=== PATIENT | female | born 1990 | race Caucasian/White ===

== ENCOUNTER 2016-08-07 19:52 | Emergency (ER) | payer OTHER ==
[~2016-08-07 19:52] MED LIST: DIGO0.126 PO; DIGO0.127 PO; DOCU10ELUD PO; DULC10SU9 PR; FERR325T3 PO; IRON CR PO; LEVO25TA5 PO; LEVOXYL PO; OMEP20CA3 PO; TRAMADOL PO; TYLE325T5 PO; ZONI50CA PO; [UNRECOGNIZED DRUG - REMARK]
[2016-08-07 23:26] LABS: ADD MORPHOLOGY? YES; BASO % 0.8 % (0.0-1.0); EOS # 0.1 K/mm3 (0.0-0.50); EOS % 1.3 % (0.0-3.0); LARGE UNSTAINED CELL # 0.1 K/mm3 (0.0-0.4); LARGE UNSTAINED CELL % 2.7 % (0.0-4.0); LYMPH # 1.7 K/mm3 (1.5-6.5); LYMPH % 31.5 % (24.0-44.0); MEAN CORPUSCULAR HEMOGLOBIN 21.2 pg (27.0-33.0); MEAN CORPUSCULAR HGB CONC 28.3 g/dl (32.0-36.5); MEAN CORPUSCULAR VOLUME 75.1 fl (80.0-96.0); MONO # 0.3 K/mm3 (0.0-0.8); MONO % 5.2 % (0.0-5.0); NEUTROPHILS # 2.9 K/mm3 (1.8-7.7); NEUTROPHILS % 58.5 % (36.0-66.0); PLATELET COUNT, AUTOMATED 179 k/mm3 (150-450); RED CELL DISTRIBUTION WIDTH 18.2 % (11.5-14.5); WHITE BLOOD COUNT 4.9 K/mm3 (4.0-10.0)
[2016-08-07] MEDS ORDERED: ONDANSETRON 4MG/2ML VIAL (J2405) As Ordered ONE (23:34)
[2016-08-07] MEDS ORDERED: MORPHINE 4 MG/ML 1ML SYRINGE As Ordered ONE (23:34)
[2016-08-07 23:56] LABS: HYPOCHROMASIA 1+
[2016-08-07 23:57] LABS: ANISOCYTOSIS 1+; MICROCYTOSIS 1+
[2016-08-08 00:10] LABS: ALBUMIN 3.9 GM/DL (3.2-5.2); ALBUMIN/GLOBULIN RATIO 1.11 (1.00-1.93); ALKALINE PHOSPHATASE 74 U/L (45-117); ALT/SGPT 29 U/L (12-78); AMYLASE 46 U/L (25-115); ANION GAP 7 MEQ/L (8-16); AST/SGOT 23 U/L (15-37); BILIRUBIN,DIRECT < 0.1 MG/DL (0.0-0.2); BILIRUBIN,TOTAL 0.3 MG/DL (0.2-1.0); BLOOD UREA NITROGEN 14 MG/DL (7-18); CALCIUM LEVEL 8.7 MG/DL (8.5-10.1); CARBON DIOXIDE LEVEL 28 MEQ/L (21-32); CHLORIDE LEVEL 107 MEQ/L (98-107); CREATININE FOR GFR 0.67 MG/DL (0.55-1.02); GLOMERULAR FILTRATION RATE > 60.0 (>60); GLUCOSE, FASTING 77 MG/DL (70-105); POTASSIUM SERUM 3.8 MEQ/L (3.5-5.1); SODIUM LEVEL 142 MEQ/L (136-145); TOTAL PROTEIN 7.4 GM/DL (6.4-8.2)
--- NOTE | 2016-08-08 01:00 | REPUSA ---
CT of the abdomen and pelvis without contrast Clinical statement: Pain. Technique: Multiple axial CT images were obtained from the base of the lungs to the floor of the pelv is utilizing 5 mm axial slices without administration of contrast. Coronal and sagittal reconstructio ns were also obtained. Comparison: december 17, 2015. Findings: Chest: The visualized lung bases are clear. Abdomen: The kidneys are normal in size bilaterally. There is no evidence of nephrolithiasis. However , there is moderate right-sided hydronephrosis and proximal hydroureter. The distal right ureter appe ars unremarkable however. No obstructing stone or masses identified. The liver, spleen, pancreas, and adrenal glands are unremarkable. The aorta demonstrates normal caliber and contour. There is no abdo yudy lymphadenopathy or ascites. Pelvis: The bowel is unremarkable, with no obstructive or inflammatory changes. The appendix is teodoro l. The urinary bladder is within normal limits. There is no pelvic lymphadenopathy or ascites. The ot her pelvic structures appear unremarkable. Bones: There are no suspicious osseous abnormalities seen. Impression: 1. Moderate right-sided hydronephrosis with proximal right hydroureter. The distal right ureter appea rs unremarkable however. No discrete obstructing stone or mass is identified at this time. Follow-up is suggested as clinically indicated. 2. No obstructive or inflammatory bowel changes.
[2016-08-08] MEDS ORDERED: OXYCODONE/APAP 5MG/325MG(BULK) 1 TAB TAB As Ordered ONE (01:35)
--- NOTE | 2016-08-08 01:51 | EDDOCDS ---
Nurse's Notes [facility] Name: Toni Cortez Age: 25 yrs Sex: Female : 1990 Arrival Date: 08/07/2016 Time: 19:52 Bed I4 / M4 Private MD: Sonya Vincent Diagnosis: Unspecified hydronephrosis-Moderate right sided hydronephrosis with proximal Right hydroureter, No stone on CT, normal labs; most likely passed stone.;Anemia, unspecified Presentation: 08/07 20:08 Presenting complaint: Patient states: PER PT ABDOMINAL PAIN FOR THE PAST WEEK NOW WITH tm5 LOSS OF APPETITE, STATES THAT SHE ALSO HAS HAD "PALE" COLORED STOOLS, ALSO WITH NAUSEA. Risk factors: the patient reports no vaginal bleeding. Adult Sepsis Screening: The patient does not have new or worsening altered mentation. Patient's respiratory rate is less than 22. Systolic blood pressure is greater than 100. Patient has a qSOFA score of 0- Negative Sepsis Screen. Suicide/Homicide risk assessment- the patient denies having any suicidal and/or homicidal ideations and does not present with any other emotional, behavioral or mental health complaints. Status: Patient is not a gasoline service attendant or dependent. Transition of care: patient was not received from another setting of care. 20:08 Acuity: GARCIA Level 3 tm5 20:08 Method Of Arrival: Walkin/Carried/Asstd tm5 Triage Assessment: 20:11 General: Appears in no apparent distress, Behavior is appropriate for age, cooperative. tm5 Pain: Location: abdomen Pain currently is 7 out of 10 on a pain scale. Quality of pain is described as sharp, Pain began 1 WEEK AGO. Pt Declines HIV testing. Neurological: Level of Consciousness is awake, alert, Oriented to person, place, time. Respiratory: Airway is patent Respiratory effort is even, unlabored, Respiratory pattern is regular, symmetrical. GI: Abdomen is non- distended Reports nausea, vomiting. : No deficits noted. Derm: Skin is pale. 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 digoxin 125 mcg Oral tab as needed for racing heart PRN racing heart rate 2. ferrous sulfate 325 mg (65 mg iron) Oral tab three times a day 3. omeprazole 20 mg Oral chew 20 mg daily - PMHx: Cardiomyopathy; Crohn's; ''Enlarged spleen''; GERD; muscular dystrophy; Ovarian cyst; - PSHx: Cholecystectomy; - Social history: Smoking status: Patient states was never smoker of tobacco. No barriers to communication noted, The patient speaks fluent Moroccan. - Family history: No immediate family members are acutely ill. - : The pt / caregiver states he / she is not on anticoagulants. Home medication list is obtained from the patient. - Exposure Risk Screening:: None identified. Screenin:13 Screening information is obtained from the patient. Fall risk: No risks identified. tm5 Assistance ADL's: requires no assistance with activities of daily living. Abuse/DV Screen: The patient / caregiver reports he/she is: not in a situation that causes fear, pain or injury. Nutritional screening: No deficits noted. Advance Directives: Currently, there is no health care proxy. There is no active DNR order. home support is adequate. Assessment: 21:35 General: Appears in no apparent distress, comfortable, Behavior is appropriate for age, nn1 cooperative. Neurological: Level of Consciousness is awake, alert, obeys commands. Respiratory: Airway is patent Respiratory effort is even, unlabored, Respiratory pattern is regular, symmetrical. Derm: Skin is pink, warm & dry. 22:30 General: Appears in no apparent distress, Behavior is cooperative. Neurological: No ms2 deficits noted. Respiratory: Respiratory effort is even, unlabored. Derm: Skin is pink, warm & dry. 23:44 General: Appears in no apparent distress, comfortable, Behavior is appropriate for age, af2 cooperative. Neurological: Level of Consciousness is awake, alert, obeys commands. Respiratory: Airway is patent Respiratory effort is even, unlabored. Derm: Skin is pink, warm & dry. 08/08 00:42 General: Appears in no apparent distress, comfortable, Behavior is appropriate for age, af2 cooperative. Neurological: Level of Consciousness is awake, alert, obeys commands. Respiratory: Airway is patent Respiratory effort is even, unlabored. Derm: Skin is pink, warm & dry. 00:48 General: IVF observed to be infusing slowly, placed fluids on pump at this time at 999 af2 ml/hr. PIV patent, infusing.. Vital Signs: 08/07 19:54 BP 113 / 57; Pulse 66; Resp 16; Temp 97.4(O); Pulse Ox 100% on R/A; Weight 93.44 kg; sew Height 5 ft. 10 in. (177.80 cm); Pain 7/10; 08/08 00:48 BP 117 / 65; Pulse 61; Resp 18 S; Temp 98.1(TE); Pulse Ox 100% on R/A; af2 01:31 BP 103 / 59; Pulse 60; Resp 18; Temp 97.9; Pulse Ox 100% ; Pain 9/10; jlm 08/07 19:54 Body Mass Index 29.56 (93.44 kg, 177.80 cm) sew Vitals: 08/07 19:54 Log In Time: August 07, 2016 at 19:51. sew ED Course: 11:18 Missed attempts: 20 gauge X 1 in right antecubital area, Bleeding controlled, band aid ms2 applied, catheter tip intact. 11:20 Inserted saline lock: 20 gauge in left hand The patient tolerated the procedure well. ms2 19:53 Patient visited by Kathryn Quan. sew 19:53 Sonya Vincent is Private Physician. sew 19:53 Patient moved to Waiting sew 19:54 Patient visited by Kathryn Quan. sew 19:54 Patient moved to Pre RCE sew 20:10 Triage Initiated tm5 21:34 Patient visited by Lena Acosta,HAIR. ck1 21:34 Patient moved to Triage 2 ck1 22:10 [facility] ef1 22:10 Jt Dozier DO is Attending Physician. ef1 22:11 Patient visited by Brittanie Bateman PA-C. ef1 22:26 Patient moved to I4 / M4 nn1 22:30 The patient / caregiver is instructed regarding the plan of care and ED course. ms2 22:42 Patient visited by Brittanie Bateman PA-C. ef1 23:02 Patient visited by Brittanie Bateman PA-C. ef1 23:21 [facility] Payment Agreement was scanned into [employer] and attached to record. gjb 23:28 RBC MORPH PROF NO CHARGE Sent. ms2 23:32 Patient visited by Brittanie Bateman PA-C. ef1 23:45 Patient visited by Miladis Gorman RN. af2 08/08 00:17 Patient visited by Brittanie Bateman PA-C. ef1 00:29 Patient visited by Brittanie Bateman PA-C. ef1 00:48 Patient visited by Miladis Gorman RN. af2 00:50 Patient visited by Miladis Gorman RN. af2 01:18 CT ABD & PELVIS: No Contrast Returned. EDMS 01:25 Patient visited by Brittanie Bateman PA-C. ef1 01:32 Patient visited by Mulu Diaz, Defective Cigarette Slitter. jlm 01:34 Sonya Vincent is Referral Physician. ef1 01:34 Boris Patel is Referral Physician. ef1 01:36 No procedures done that require assistance. nn1 01:41 Eduarda Topete LPN is Primary Nurse. slm 01:42 Discontinued lock intact, bleeding controlled, pressure dressing applied, No slm redness/swelling at site. Administered Medications: 08/07 23:43 Drug: NS 0.9% 1000 ml [sodium chloride 0.9 % intravenous solution] Route: IV; Rate: af2 bolus; Site: left hand; 08/08 01:42 Follow up: IV Status: Completed infusion; IV Intake: 1000ml slm 08/07 23:43 Drug: Ondansetron 4 mg [ondansetron HCl 2 mg/mL intravenous solution (2 mL)] Route: af2 IVP; Site: left hand; 23:43 Drug: morphine 4 mg [morphine 4 mg/mL intravenous cartridge (1 mL)] Route: IVP; Site: af2 left hand; 08/08 01:50 Drug: oxyCODONE-acetaminophen 4 pack 1 packets [oxycodone-acetaminophen 5 mg-325 mg slm tablet (1 tabs)] {Co-Signature: nn1 (Snow Kilgore RN).} Route: PO; Point of Care Testing: Urine : 08/07 22:32 hCG Reading: Negative; Control Reading: Positive; nn1 Ranges: Intake: 08/08 01:42 IV: 1000.00ml; Total: 1000.00ml. slm Order Results: Lab Order: Amylase; SPEC'M 08/07/16 23:42 Test: AMYLASE; Value: 46; Range: 25-115; Units: U/L; Status: F Lab Order: Basic Metabolic Profile; SPEC'M 08/07/16 23:42 Test: GLUCOSE, FASTING; Value: 77; Range: 70-105; Units: MG/DL; Status: F Test: BLOOD UREA NITROGEN; Value: 14; Range: 7-18; Units: MG/DL; Status: F Test: CREATININE FOR GFR; Value: 0.67; Range: 0.55-1.02; Units: MG/DL; Status: F Test: GLOMERULAR FILTRATION RATE; Value: > 60.0; Range: >60; Status: F Test: SODIUM LEVEL; Value: 142; Range: 136-145; Units: MEQ/L; Status: F Test: POTASSIUM SERUM; Value: 3.8; Range: 3.5-5.1; Units: MEQ/L; Status: F Test: CHLORIDE LEVEL; Value: 107; Range: 98-107; Units: MEQ/L; Status: F Test: CARBON DIOXIDE LEVEL; Value: 28; Range: 21-32; Units: MEQ/L; Status: F Test: ANION GAP; Value: 7; Range: 8-16; Abnormal: Below low normal; Units: MEQ/L; Status: F Test: CALCIUM LEVEL; Value: 8.7; Range: 8.5-10.1; Units: MG/DL; Status: F Test Note: ; Units are mL/min/1.73 m2 Chronic Kidney Disease Staging per NKF: Stage I & II GFR >=60 Normal to Mildly Decreased Stage III GFR 30-59 Moderately Decreased Stage IV GFR 15-29 Severely Decreased Stage V GFR <15 Very Little GFR Left ESRD GFR <15 on MORTAR MIXER Lab Order: CBC with Diff; SPEC'M 08/07/16 22:46 Test: WHITE BLOOD COUNT; Value: 4.9; Range: 4.0-10.0; Units: K/mm3; Status: F Test: RED BLOOD COUNT; Value: 3.96; Range: 4.00-5.40; Abnormal: Below low normal; Units: M/mm3; Status: F Test: HEMOGLOBIN; Value: 8.4; Range: 12.0-16.0; Abnormal: Below low normal; Units: g/dl; Status: F Test: HEMATOCRIT; Value: 29.7; Range: 36.0-47.0; Abnormal: Below low normal; Units: %; Status: F Test: MEAN CORPUSCULAR VOLUME; Value: 75.1; Range: 80.0-96.0; Abnormal: Below low normal; Units: fl; Status: F Test: MEAN CORPUSCULAR HEMOGLOBIN; Value: 21.2; Range: 27.0-33.0; Abnormal: Below low normal; Units: pg; Status: F Test: MEAN CORPUSCULAR HGB CONC; Value: 28.3; Range: 32.0-36.5; Abnormal: Below low normal; Units: g/dl; Status: F Test: RED CELL DISTRIBUTION WIDTH; Value: 18.2; Range: 11.5-14.5; Abnormal: Above high normal; Units: %; Status: F Test: PLATELET COUNT, AUTOMATED; Value: 179; Range: 150-450; Units: k/mm3; Status: F Test: NEUTROPHILS %; Value: 58.5; Range: 36.0-66.0; Units: %; Status: F Test: LYMPH %; Value: 31.5; Range: 24.0-44.0; Units: %; Status: F Test: MONO %; Value: 5.2; Range: 0.0-5.0; Abnormal: Above high normal; Units: %; Status: F Test: EOS %; Value: 1.3; Range: 0.0-3.0; Units: %; Status: F Test: BASO %; Value: 0.8; Range: 0.0-1.0; Units: %; Status: F Test: LARGE UNSTAINED CELL %; Value: 2.7; Range: 0.0-4.0; Units: %; Status: F Test: NEUTROPHILS #; Value: 2.9; Range: 1.8-7.7; Units: K/mm3; Status: F Test: LYMPH #; Value: 1.7; Range: 1.5-6.5; Units: K/mm3; Status: F Test: MONO #; Value: 0.3; Range: 0.0-0.8; Units: K/mm3; Status: F Test: EOS #; Value: 0.1; Range: 0.0-0.50; Units: K/mm3; Status: F Test: BASO #; Value: 0.0; Range: 0.0-0.2; Units: K/mm3; Status: F Test: LARGE UNSTAINED CELL #; Value: 0.1; Range: 0.0-0.4; Units: K/mm3; Status: F Lab Order: Lipase; [facility] 08/07/16 23:42 Test: LIPASE; Value: 104; Range: 73-393; Units: U/L; Status: F Lab Order: Liver Profile; [facility] 08/07/16 23:42 Test: AST/SGOT; Value: 23; Range: 15-37; Units: U/L; Status: F Test: ALT/SGPT; Value: 29; Range: 12-78; Units: U/L; Status: F Test: ALKALINE PHOSPHATASE; Value: 74; Range: 45-117; Units: U/L; Status: F Test: BILIRUBIN,TOTAL; Value: 0.3; Range: 0.2-1.0; Units: MG/DL; Status: F Test: BILIRUBIN,DIRECT; Value: < 0.1; Range: 0.0-0.2; Units: MG/DL; Status: F Test: TOTAL PROTEIN; Value: 7.4; Range: 6.4-8.2; Units: GM/DL; Status: F Test: ALBUMIN; Value: 3.9; Range: 3.2-5.2; Units: GM/DL; Status: F Test: ALBUMIN/GLOBULIN RATIO; Value: 1.11; Range: 1.00-1.93; Status: F Lab Order: Urinalysis; [facility] 08/07/16 22:27 Test: APPEARANCE, URINE; Value: CLEAR; Range: CLEAR; Status: F Test: COLOR, URINE; Value: COLORLESS; Range: YELLOW; Status: F Test: PH,URINE; Value: 6.0; Range: 5.0-9.0; Units: UNITS; Status: F Test: SPECIFIC GRAVITY URINE AUTO; Value: 1.002; Range: 1.002-1.035; Status: F Test: PROTEIN, URINE AUTO; Value: NEGATIVE; Range: NEGATIVE; Units: mg/dL; Status: F Test: GLUCOSE, URINE (UA) AUTO; Value: NEGATIVE; Range: NEGATIVE; Units: mg/dL; Status: F Test: KETONE, URINE AUTO; Value: NEGATIVE; Range: NEGATIVE; Units: mg/dL; Status: F Test: UROBILINOGEN, URINE AUTO; Value: 0.2; Range: 0.0-2.0; Units: mg/dL; Status: F Test: BILIRUBIN, URINE AUTO; Value: NEGATIVE; Range: NEGATIVE; Status: F Test: NITRITE, URINE AUTO; Value: NEGATIVE; Range: NEGATIVE; Status: F Test: LEUKOCYTE ESTERASE, URINE AUTO; Value: NEGATIVE; Range: NEGATIVE; Status: F Test: BLOOD, URINE BLOOD; Value: NEGATIVE; Range: NEGATIVE; Status: F Test: WBC, URINE AUTO; Value: 1; Range: 0-3; Units: /HPF; Status: F Test: RBC, URINE AUTO; Value: 0; Range: 0-3; Units: /HPF; Status: F Test: BACTERIA, URINE AUTO; Value: NEGATIVE; Range: NEGATIVE; Status: F Test: SQUAMOUS EPITHELIAL CELL UR AU; Value: 2; Range: 0-6; Units: /HPF; Status: F Test: HYALINE CAST, URINE AUTO; Value: 0; Range: 0-1; Units: /LPF; Status: F Lab Order: RBC MORPH PROF NO CHARGE; SPEC'M 08/07/16 22:46 Test: PLATELET ESTIMATE; Range: NORMAL; Status: I Test: HYPOCHROMASIA; Value: 1+; Status: F Test: ANISOCYTOSIS; Value: 1+; Status: F Test: MICROCYTOSIS; Value: 1+; Status: F Test: PLATELET ESTIMATE; Value: NORMAL; Range: NORMAL; Status: F Radiology Order: CT ABD & PELVIS: No Contrast Test: CT ABD & PELVIS: No Contrast REASON FOR EXAMINATION: Renal colic; ; CT of the abdomen and pelvis without contrast; Clinical statement: Pain.; Technique: Multiple axial CT images were obtained from the base of the lungs to the floor of the pelv; is utilizing 5 mm axial slices without administration of contrast. Coronal and sagittal reconstructio; ns were also obtained.; Comparison: december 17, 2015.; Findings:; Chest: The visualized lung bases are clear.; Abdomen: The kidneys are normal in size bilaterally. There is no evidence of nephrolithiasis. However; , there is moderate right-sided hydronephrosis and proximal hydroureter. The distal right ureter appe; ars unremarkable however. No obstructing stone or masses identified. The liver, spleen, pancreas, and; adrenal glands are unremarkable. The aorta demonstrates normal caliber and contour. There is no abdo; yudy lymphadenopathy or ascites.; Pelvis: The bowel is unremarkable, with no obstructive or inflammatory changes. The appendix is teodoro; l. The urinary bladder is within normal limits. There is no pelvic lymphadenopathy or ascites. The ot; her pelvic structures appear unremarkable.; Bones: There are no suspicious osseous abnormalities seen.; Impression:; 1. Moderate right-sided hydronephrosis with proximal right hydroureter. The distal right ureter appea; rs unremarkable however. No discrete obstructing stone or mass is identified at this time. Follow-up; is suggested as clinically indicated.; 2. No obstructive or inflammatory bowel changes.; ; Outcome: 01:34 Discharge ordered by Provider. ef1 01:36 Discharge Assessment: Patient awake, alert and oriented x 3. No cognitive and/or nn1 functional deficits noted. Patient verbalized understanding of disposition instructions. patient administered narcotics - yes. Pt provided with safe discharge. The following High Risk Discharge criteria are identified: None. Discharged to home ambulatory. Condition: stable. Prescriptions given X 2. CT Study completed. Property :Personal belongings accompany Pt. 01:50 Patient left the ED. m Signatures: Dispatcher [employer] EDMS Luis Pillai RN RN ms2 Lena Acosta RN RN ck1 Brittanie Bateman, PA-C PA-C ef1 Kathryn Quan Stephanie, LPN LPN slm Mulu Diaz, Defective Cigarette Slitter Unit Miladis Evans RN RN af2 Snow Kilgore RN RN nn1 Ida Ambrose TonyaRN RN tm5 Snow Kilgore RN nn1 Corrections: (The following items were deleted from the chart) 00:50 00:47 General: af2 af2 MTDD
--- NOTE | 2016-08-08 01:51 | EDDOCDS ---
Physician Documentation [facility] Name: Toni Cortez Age: 25 yrs Sex: Female : 1990 Arrival Date: 08/07/2016 Time: 19:52 Bed I4 / M4 Private MD: Sonya Vincent Disposition: 08/08/16 01:34 Discharged to Home/Self Care. Impression: Unspecified hydronephrosis - Moderate right sided hydronephrosis with proximal Right hydroureter, No stone on CT, normal labs; most likely passed stone., Anemia, unspecified. - Condition is Stable. - Discharge Instructions: Anemia, Nonspecific, Hydronephrosis. - Prescriptions for Percocet 5- 325 mg Oral Tablet - take 1 tablet by ORAL route every 6 hours As needed MDD: 4 tabs; 10 tablet. promethazine 25 mg Oral Tablet - take 1 tablet by ORAL route every 6 hours As needed; 12 tablet. - Medication Reconciliation, Local Pharmacy Hours form. - Follow up: Sonya Vincent; When: 1 - 2 days; Reason: Recheck today's complaints, Continuance of care. Follow up: Emergency Department; Reason: Worsening of conditions. Follow up: Boris Patel; When: 1 - 2 days; Reason: Further diagnostic work-up, Recheck today's complaints, Continuance of care. - Problem is new. - Symptoms have improved. Historical: - Allergies: Aspirin (Anaphylaxis); Gastrografin; Reglan (syncope); Tramadol HCl (seizure); - Home Meds: 1. digoxin 125 mcg Oral tab as needed for racing heart PRN racing heart rate 2. ferrous sulfate 325 mg (65 mg iron) Oral tab three times a day 3. omeprazole 20 mg Oral chew 20 mg daily - PMHx: Cardiomyopathy; Crohn's; ''Enlarged spleen''; GERD; muscular dystrophy; Ovarian cyst; - PSHx: Cholecystectomy; - Social history: Smoking status: Patient states was never smoker of tobacco. No barriers to communication noted, The patient speaks fluent Japanese. - Family history: No immediate family members are acutely ill. - : The pt / caregiver states he / she is not on anticoagulants. Home medication list is obtained from the patient. - Exposure Risk Screening:: None identified. 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 10 in. (177.80 cm); Pain 7/10; 08/08 00:48 BP 117 / 65; Pulse 61; Resp 18 S; Temp 98.1(TE); Pulse Ox 100% on R/A; af2 01:31 BP 103 / 59; Pulse 60; Resp 18; Temp 97.9; Pulse Ox 100% ; Pain 9/10; jlm 08/07 19:54 Body Mass Index 29.56 (93.44 kg, 177.80 cm) sew MDM: 08/07 22:23 NS 0.9% 1000 ml IV at bolus once ordered. ef1 22:23 Ondansetron 4 mg IVP once ordered. ef1 22:23 IV Saline Lock ordered. ef1 22:23 Undress patient appropriately for examination ordered. ef1 22:23 UCG by Nursing ordered. ef1 22:24 morphine 4 mg IVP once ordered. ef1 22:25 Amylase Ordered. EDMS 22:25 Basic Metabolic Profile Ordered. EDMS 22:25 CBC with Diff Ordered. EDMS 22:25 Lipase Ordered. EDMS 22:25 Liver Profile Ordered. EDMS 22:25 Urinalysis Ordered. EDMS 22:25 Urine Culture Ordered. EDMS 22:25 CT ABD & PELVIS: No Contrast Ordered. EDMS 22:25 NOTHING BY MOUTH+DIET ordered. EDMS 23:12 Financial registration complete. [facility] 23:21 [facility] Payment Agreement was scanned into [employer] and attached to record. gjb 23:28 RBC MORPH PROF NO CHARGE Ordered. EDMS 08/08 00:01 CBC with Diff Reviewed. ef1 00:01 Urinalysis Reviewed. ef1 00:01 RBC MORPH PROF NO CHARGE Reviewed. ef1 00:17 Basic Metabolic Profile Reviewed. ef1 00:17 Amylase Reviewed. ef1 00:17 Lipase Reviewed. ef1 00:17 Liver Profile Reviewed. ef1 01:26 CT ABD & PELVIS: No Contrast Reviewed. ef1 01:34 oxyCODONE-acetaminophen 4 pack 5 mg-325 mg 1 packets PO once; Dispense with pt, take as ef1 per instruction on package ordered. Point of Care Testing: Urine : 08/07 22:32 hCG Reading: Negative; Control Reading: Positive; nn1 Ranges: Administered Medications: 23:43 Drug: NS 0.9% 1000 ml [sodium chloride 0.9 % intravenous solution] Route: IV; Rate: af2 bolus; Site: left hand; 08/08 01:42 Follow up: IV Status: Completed infusion; IV Intake: 1000ml slm 08/07 23:43 Drug: Ondansetron 4 mg [ondansetron HCl 2 mg/mL intravenous solution (2 mL)] Route: af2 IVP; Site: left hand; 23:43 Drug: morphine 4 mg [morphine 4 mg/mL intravenous cartridge (1 mL)] Route: IVP; Site: af2 left hand; 08/08 01:50 Drug: oxyCODONE-acetaminophen 4 pack 1 packets [oxycodone-acetaminophen 5 mg-325 mg slm tablet (1 tabs)] {Co-Signature: nn1 (Snow Kilgore RN).} Route: PO; Signatures: Dispatcher [employer] EDMS Brittanie Bateman, PA-C PA-C ef1 Eduarda Topete,WINDOW SHADE CUTTER WINDOW SHADE CUTTER Snow Lombardi RN RN nn1 Ida Ambrose Tonya,RN RN tm5 Miladis Gorman RN af2 Snow Kilgore RN nn1 The chart was reviewed and I authenticate all verbal orders and agree with the evaluation and treatment provided.Attachments: 08/07 23:21 [facility] Payment Agreement liana MTDD
--- NOTE | 2016-08-10 02:52 | EDDOCDS ---
Physician Documentation [facility] Name: Toni Cortez Age: 25 yrs Sex: Female : 1990 Arrival Date: 08/07/2016 Time: 19:52 Bed I4 / M4 Private MD: Sonya Vincent Disposition: 08/08/16 01:34 Discharged to Home/Self Care. Impression: Unspecified hydronephrosis - Moderate right sided hydronephrosis with proximal Right hydroureter, No stone on CT, normal labs; most likely passed stone., Anemia, unspecified. - Condition is Stable. - Discharge Instructions: Anemia, Nonspecific, Hydronephrosis. - Prescriptions for Percocet 5- 325 mg Oral Tablet - take 1 tablet by ORAL route every 6 hours As needed MDD: 4 tabs; 10 tablet. promethazine 25 mg Oral Tablet - take 1 tablet by ORAL route every 6 hours As needed; 12 tablet. - Medication Reconciliation, Local Pharmacy Hours form. - Follow up: Sonya Vincent; When: 1 - 2 days; Reason: Recheck today's complaints, Continuance of care. Follow up: Emergency Department; Reason: Worsening of conditions. Follow up: Boris Patel; When: 1 - 2 days; Reason: Further diagnostic work-up, Recheck today's complaints, Continuance of care. - Problem is new. - Symptoms have improved. Historical: - Allergies: Aspirin (Anaphylaxis); Gastrografin; Reglan (syncope); Tramadol HCl (seizure); - Home Meds: 1. digoxin 125 mcg Oral tab as needed for racing heart PRN racing heart rate 2. ferrous sulfate 325 mg (65 mg iron) Oral tab three times a day 3. omeprazole 20 mg Oral chew 20 mg daily - PMHx: Cardiomyopathy; Crohn's; ''Enlarged spleen''; GERD; muscular dystrophy; Ovarian cyst; - PSHx: Cholecystectomy; - Social history: Smoking status: Patient states was never smoker of tobacco. No barriers to communication noted, The patient speaks fluent Azerbaijani. - Family history: No immediate family members are acutely ill. - : The pt / caregiver states he / she is not on anticoagulants. Home medication list is obtained from the patient. - Exposure Risk Screening:: None identified. 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 10 in. (177.80 cm); Pain 7/10; 08/08 00:48 BP 117 / 65; Pulse 61; Resp 18 S; Temp 98.1(TE); Pulse Ox 100% on R/A; af2 01:31 BP 103 / 59; Pulse 60; Resp 18; Temp 97.9; Pulse Ox 100% ; Pain 9/10; jlm 08/07 19:54 Body Mass Index 29.56 (93.44 kg, 177.80 cm) sew MDM: 08/07 22:23 NS 0.9% 1000 ml IV at bolus once ordered. ef1 22:23 Ondansetron 4 mg IVP once ordered. ef1 22:23 IV Saline Lock ordered. ef1 22:23 Undress patient appropriately for examination ordered. ef1 22:23 UCG by Nursing ordered. ef1 22:24 morphine 4 mg IVP once ordered. ef1 22:25 Amylase Ordered. EDMS 22:25 Basic Metabolic Profile Ordered. EDMS 22:25 CBC with Diff Ordered. EDMS 22:25 Lipase Ordered. EDMS 22:25 Liver Profile Ordered. EDMS 22:25 Urinalysis Ordered. EDMS 22:25 Urine Culture Ordered. EDMS 22:25 CT ABD & PELVIS: No Contrast Ordered. EDMS 22:25 NOTHING BY MOUTH+DIET ordered. EDMS 23:12 Financial registration complete. [facility] 23:21 [facility] Payment Agreement was scanned into [employer] and attached to record. gjb 23:28 RBC MORPH PROF NO CHARGE Ordered. EDMS 08/08 00:01 CBC with Diff Reviewed. ef1 00:01 Urinalysis Reviewed. ef1 00:01 RBC MORPH PROF NO CHARGE Reviewed. ef1 00:17 Basic Metabolic Profile Reviewed. ef1 00:17 Amylase Reviewed. ef1 00:17 Lipase Reviewed. ef1 00:17 Liver Profile Reviewed. ef1 01:26 CT ABD & PELVIS: No Contrast Reviewed. ef1 01:34 oxyCODONE-acetaminophen 4 pack 5 mg-325 mg 1 packets PO once; Dispense with pt, take as ef1 per instruction on package ordered. 10:40 T-Sheet-- Draft Copy was scanned into [employer] and attached to record. 10:40 Radiology Report was scanned into [employer] and attached to record. gb Point of Care Testing: Urine : 08/07 22:32 hCG Reading: Negative; Control Reading: Positive; nn1 Ranges: Administered Medications: 23:43 Drug: NS 0.9% 1000 ml [sodium chloride 0.9 % intravenous solution] Route: IV; Rate: af2 bolus; Site: left hand; 08/08 01:42 Follow up: IV Status: Completed infusion; IV Intake: 1000ml slm 08/07 23:43 Drug: Ondansetron 4 mg [ondansetron HCl 2 mg/mL intravenous solution (2 mL)] Route: af2 IVP; Site: left hand; 23:43 Drug: morphine 4 mg [morphine 4 mg/mL intravenous cartridge (1 mL)] Route: IVP; Site: af2 left hand; 08/08 01:50 Drug: oxyCODONE-acetaminophen 4 pack 1 packets [oxycodone-acetaminophen 5 mg-325 mg slm tablet (1 tabs)] {Co-Signature: nn1 (Snow Kilgore RN).} Route: PO; Signatures: Dispatcher [employer] EDMS Ailin Snow, Nitesh Reg Brittanie Santacruz PA-C PANakia ef1 Eduarda Topete,PROPOSAL WRITER PROPOSAL WRITER Snow Lombardi,HAIR RN nn1 Ida Ambrose Tonya, RN RN tm5 Miladis Gorman RN af2 Snow Kilgore RN nn1 The chart was reviewed and I authenticate all verbal orders and agree with the evaluation and treatment provided.Attachments: 08/07 23:21 [facility] Payment Agreement gjb 08/08 10:40 T-Sheet-- Draft Copy gb Chart Complete MTDD
--- NOTE | 2016-08-10 02:52 | EDDOCDS ---
Nurse's Notes [facility] Name: Toni Cortez Age: 25 yrs Sex: Female : 1990 Arrival Date: 08/07/2016 Time: 19:52 Bed I4 / M4 Private MD: Sonya Vincent Diagnosis: Unspecified hydronephrosis-Moderate right sided hydronephrosis with proximal Right hydroureter, No stone on CT, normal labs; most likely passed stone.;Anemia, unspecified Presentation: 08/07 20:08 Presenting complaint: Patient states: PER PT ABDOMINAL PAIN FOR THE PAST WEEK NOW WITH tm5 LOSS OF APPETITE, STATES THAT SHE ALSO HAS HAD "PALE" COLORED STOOLS, ALSO WITH NAUSEA. Risk factors: the patient reports no vaginal bleeding. Adult Sepsis Screening: The patient does not have new or worsening altered mentation. Patient's respiratory rate is less than 22. Systolic blood pressure is greater than 100. Patient has a qSOFA score of 0- Negative Sepsis Screen. Suicide/Homicide risk assessment- the patient denies having any suicidal and/or homicidal ideations and does not present with any other emotional, behavioral or mental health complaints. Status: Patient is not a banking services advisor or dependent. Transition of care: patient was not received from another setting of care. 20:08 Acuity: GARCIA Level 3 tm5 20:08 Method Of Arrival: Walkin/Carried/Asstd tm5 Triage Assessment: 20:11 General: Appears in no apparent distress, Behavior is appropriate for age, cooperative. tm5 Pain: Location: abdomen Pain currently is 7 out of 10 on a pain scale. Quality of pain is described as sharp, Pain began 1 WEEK AGO. Pt Declines HIV testing. Neurological: Level of Consciousness is awake, alert, Oriented to person, place, time. Respiratory: Airway is patent Respiratory effort is even, unlabored, Respiratory pattern is regular, symmetrical. GI: Abdomen is non- distended Reports nausea, vomiting. : No deficits noted. Derm: Skin is pale. 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 digoxin 125 mcg Oral tab as needed for racing heart PRN racing heart rate 2. ferrous sulfate 325 mg (65 mg iron) Oral tab three times a day 3. omeprazole 20 mg Oral chew 20 mg daily - PMHx: Cardiomyopathy; Crohn's; ''Enlarged spleen''; GERD; muscular dystrophy; Ovarian cyst; - PSHx: Cholecystectomy; - Social history: Smoking status: Patient states was never smoker of tobacco. No barriers to communication noted, The patient speaks fluent Cymraes. - Family history: No immediate family members are acutely ill. - : The pt / caregiver states he / she is not on anticoagulants. Home medication list is obtained from the patient. - Exposure Risk Screening:: None identified. Screenin:13 Screening information is obtained from the patient. Fall risk: No risks identified. tm5 Assistance ADL's: requires no assistance with activities of daily living. Abuse/DV Screen: The patient / caregiver reports he/she is: not in a situation that causes fear, pain or injury. Nutritional screening: No deficits noted. Advance Directives: Currently, there is no health care proxy. There is no active DNR order. home support is adequate. Assessment: 21:35 General: Appears in no apparent distress, comfortable, Behavior is appropriate for age, nn1 cooperative. Neurological: Level of Consciousness is awake, alert, obeys commands. Respiratory: Airway is patent Respiratory effort is even, unlabored, Respiratory pattern is regular, symmetrical. Derm: Skin is pink, warm & dry. 22:30 General: Appears in no apparent distress, Behavior is cooperative. Neurological: No ms2 deficits noted. Respiratory: Respiratory effort is even, unlabored. Derm: Skin is pink, warm & dry. 23:44 General: Appears in no apparent distress, comfortable, Behavior is appropriate for age, af2 cooperative. Neurological: Level of Consciousness is awake, alert, obeys commands. Respiratory: Airway is patent Respiratory effort is even, unlabored. Derm: Skin is pink, warm & dry. 08/08 00:42 General: Appears in no apparent distress, comfortable, Behavior is appropriate for age, af2 cooperative. Neurological: Level of Consciousness is awake, alert, obeys commands. Respiratory: Airway is patent Respiratory effort is even, unlabored. Derm: Skin is pink, warm & dry. 00:48 General: IVF observed to be infusing slowly, placed fluids on pump at this time at 999 af2 ml/hr. PIV patent, infusing.. Vital Signs: 08/07 19:54 BP 113 / 57; Pulse 66; Resp 16; Temp 97.4(O); Pulse Ox 100% on R/A; Weight 93.44 kg; sew Height 5 ft. 10 in. (177.80 cm); Pain 7/10; 08/08 00:48 BP 117 / 65; Pulse 61; Resp 18 S; Temp 98.1(TE); Pulse Ox 100% on R/A; af2 01:31 BP 103 / 59; Pulse 60; Resp 18; Temp 97.9; Pulse Ox 100% ; Pain 9/10; jlm 08/07 19:54 Body Mass Index 29.56 (93.44 kg, 177.80 cm) sew Vitals: 08/07 19:54 Log In Time: August 07, 2016 at 19:51. sew ED Course: 11:18 Missed attempts: 20 gauge X 1 in right antecubital area, Bleeding controlled, band aid ms2 applied, catheter tip intact. 11:20 Inserted saline lock: 20 gauge in left hand The patient tolerated the procedure well. ms2 19:53 Patient visited by Kathryn Quan. sew 19:53 Sonya Vincent is Private Physician. sew 19:53 Patient moved to Waiting sew 19:54 Patient visited by Kathryn Quan. sew 19:54 Patient moved to Pre RCE sew 20:10 Triage Initiated tm5 21:34 Patient visited by Lena Acosta,HAIR. ck1 21:34 Patient moved to Triage 2 ck1 22:10 [facility]. ef1 22:10 Jt Dozier DO is Attending Physician. ef1 22:11 Patient visited by Brittanie Bateman PA-C. ef1 22:26 Patient moved to I4 / M4 nn1 22:30 The patient / caregiver is instructed regarding the plan of care and ED course. ms2 22:42 Patient visited by Brittanie Bateman PA-C. ef1 23:02 Patient visited by Brittanie Bateman PA-C. ef1 23:21 [facility] Payment Agreement was scanned into [employer] and attached to record. gjb 23:28 RBC MORPH PROF NO CHARGE Sent. ms2 23:32 Patient visited by Brittanie Bateman PA-C. ef1 23:45 Patient visited by Miladis Gorman RN. af2 08/08 00:17 Patient visited by Brittanie Bateman PA-C. ef1 00:29 Patient visited by Brittanie Bateman PA-C. ef1 00:48 Patient visited by Miladis Gorman RN. af2 00:50 Patient visited by Miladis Gorman RN. af2 01:18 CT ABD & PELVIS: No Contrast Returned. EDMS 01:25 Patient visited by Brittanie Bateman PA-C. ef1 01:32 Patient visited by Mulu Diaz, Manager Language. jlm 01:34 Sonya Vincent is Referral Physician. ef1 01:34 Boris Patel is Referral Physician. ef1 01:36 No procedures done that require assistance. nn1 01:41 Eduarda Topete LPN is Primary Nurse. slm 01:42 Discontinued lock intact, bleeding controlled, pressure dressing applied, No slm redness/swelling at site. 10:40 T-Sheet-- Draft Copy was scanned into [employer] and attached to record. gb 10:40 Radiology Report was scanned into [employer] and attached to record. gb Administered Medications: 08/07 23:43 Drug: NS 0.9% 1000 ml [sodium chloride 0.9 % intravenous solution] Route: IV; Rate: af2 bolus; Site: left hand; 08/08 01:42 Follow up: IV Status: Completed infusion; IV Intake: 1000ml slm 08/07 23:43 Drug: Ondansetron 4 mg [ondansetron HCl 2 mg/mL intravenous solution (2 mL)] Route: af2 IVP; Site: left hand; 23:43 Drug: morphine 4 mg [morphine 4 mg/mL intravenous cartridge (1 mL)] Route: IVP; Site: af2 left hand; 08/08 01:50 Drug: oxyCODONE-acetaminophen 4 pack 1 packets [oxycodone-acetaminophen 5 mg-325 mg slm tablet (1 tabs)] {Co-Signature: nn1 (Snow Kilgore RN).} Route: PO; Point of Care Testing: Urine : 08/07 22:32 hCG Reading: Negative; Control Reading: Positive; nn1 Ranges: Intake: 08/08 01:42 IV: 1000.00ml; Total: 1000.00ml. m Order Results: Lab Order: Amylase; SPEC'M 08/07/16 23:42 Test: AMYLASE; Value: 46; Range: 25-115; Units: U/L; Status: F Lab Order: Basic Metabolic Profile; SPEC'M 08/07/16 23:42 Test: GLUCOSE, FASTING; Value: 77; Range: 70-105; Units: MG/DL; Status: F Test: BLOOD UREA NITROGEN; Value: 14; Range: 7-18; Units: MG/DL; Status: F Test: CREATININE FOR GFR; Value: 0.67; Range: 0.55-1.02; Units: MG/DL; Status: F Test: GLOMERULAR FILTRATION RATE; Value: > 60.0; Range: >60; Status: F Test: SODIUM LEVEL; Value: 142; Range: 136-145; Units: MEQ/L; Status: F Test: POTASSIUM SERUM; Value: 3.8; Range: 3.5-5.1; Units: MEQ/L; Status: F Test: CHLORIDE LEVEL; Value: 107; Range: 98-107; Units: MEQ/L; Status: F Test: CARBON DIOXIDE LEVEL; Value: 28; Range: 21-32; Units: MEQ/L; Status: F Test: ANION GAP; Value: 7; Range: 8-16; Abnormal: Below low normal; Units: MEQ/L; Status: F Test: CALCIUM LEVEL; Value: 8.7; Range: 8.5-10.1; Units: MG/DL; Status: F Test Note: ; Units are mL/min/1.73 m2 Chronic Kidney Disease Staging per NKF: Stage I & II GFR >=60 Normal to Mildly Decreased Stage III GFR 30-59 Moderately Decreased Stage IV GFR 15-29 Severely Decreased Stage V GFR <15 Very Little GFR Left ESRD GFR <15 on DENTIST/OWNER Lab Order: CBC with Diff; SPEC'M 08/07/16 22:46 Test: WHITE BLOOD COUNT; Value: 4.9; Range: 4.0-10.0; Units: K/mm3; Status: F Test: RED BLOOD COUNT; Value: 3.96; Range: 4.00-5.40; Abnormal: Below low normal; Units: M/mm3; Status: F Test: HEMOGLOBIN; Value: 8.4; Range: 12.0-16.0; Abnormal: Below low normal; Units: g/dl; Status: F Test: HEMATOCRIT; Value: 29.7; Range: 36.0-47.0; Abnormal: Below low normal; Units: %; Status: F Test: MEAN CORPUSCULAR VOLUME; Value: 75.1; Range: 80.0-96.0; Abnormal: Below low normal; Units: fl; Status: F Test: MEAN CORPUSCULAR HEMOGLOBIN; Value: 21.2; Range: 27.0-33.0; Abnormal: Below low normal; Units: pg; Status: F Test: MEAN CORPUSCULAR HGB CONC; Value: 28.3; Range: 32.0-36.5; Abnormal: Below low normal; Units: g/dl; Status: F Test: RED CELL DISTRIBUTION WIDTH; Value: 18.2; Range: 11.5-14.5; Abnormal: Above high normal; Units: %; Status: F Test: PLATELET COUNT, AUTOMATED; Value: 179; Range: 150-450; Units: k/mm3; Status: F Test: NEUTROPHILS %; Value: 58.5; Range: 36.0-66.0; Units: %; Status: F Test: LYMPH %; Value: 31.5; Range: 24.0-44.0; Units: %; Status: F Test: MONO %; Value: 5.2; Range: 0.0-5.0; Abnormal: Above high normal; Units: %; Status: F Test: EOS %; Value: 1.3; Range: 0.0-3.0; Units: %; Status: F Test: BASO %; Value: 0.8; Range: 0.0-1.0; Units: %; Status: F Test: LARGE UNSTAINED CELL %; Value: 2.7; Range: 0.0-4.0; Units: %; Status: F Test: NEUTROPHILS #; Value: 2.9; Range: 1.8-7.7; Units: K/mm3; Status: F Test: LYMPH #; Value: 1.7; Range: 1.5-6.5; Units: K/mm3; Status: F Test: MONO #; Value: 0.3; Range: 0.0-0.8; Units: K/mm3; Status: F Test: EOS #; Value: 0.1; Range: 0.0-0.50; Units: K/mm3; Status: F Test: BASO #; Value: 0.0; Range: 0.0-0.2; Units: K/mm3; Status: F Test: LARGE UNSTAINED CELL #; Value: 0.1; Range: 0.0-0.4; Units: K/mm3; Status: F Lab Order: Lipase; [facility] 08/07/16 23:42 Test: LIPASE; Value: 104; Range: 73-393; Units: U/L; Status: F Lab Order: Liver Profile; [facility] 08/07/16 23:42 Test: AST/SGOT; Value: 23; Range: 15-37; Units: U/L; Status: F Test: ALT/SGPT; Value: 29; Range: 12-78; Units: U/L; Status: F Test: ALKALINE PHOSPHATASE; Value: 74; Range: 45-117; Units: U/L; Status: F Test: BILIRUBIN,TOTAL; Value: 0.3; Range: 0.2-1.0; Units: MG/DL; Status: F Test: BILIRUBIN,DIRECT; Value: < 0.1; Range: 0.0-0.2; Units: MG/DL; Status: F Test: TOTAL PROTEIN; Value: 7.4; Range: 6.4-8.2; Units: GM/DL; Status: F Test: ALBUMIN; Value: 3.9; Range: 3.2-5.2; Units: GM/DL; Status: F Test: ALBUMIN/GLOBULIN RATIO; Value: 1.11; Range: 1.00-1.93; Status: F Lab Order: Urinalysis; [facility] 08/07/16 22:27 Test: APPEARANCE, URINE; Value: CLEAR; Range: CLEAR; Status: F Test: COLOR, URINE; Value: COLORLESS; Range: YELLOW; Status: F Test: PH,URINE; Value: 6.0; Range: 5.0-9.0; Units: UNITS; Status: F Test: SPECIFIC GRAVITY URINE AUTO; Value: 1.002; Range: 1.002-1.035; Status: F Test: PROTEIN, URINE AUTO; Value: NEGATIVE; Range: NEGATIVE; Units: mg/dL; Status: F Test: GLUCOSE, URINE (UA) AUTO; Value: NEGATIVE; Range: NEGATIVE; Units: mg/dL; Status: F Test: KETONE, URINE AUTO; Value: NEGATIVE; Range: NEGATIVE; Units: mg/dL; Status: F Test: UROBILINOGEN, URINE AUTO; Value: 0.2; Range: 0.0-2.0; Units: mg/dL; Status: F Test: BILIRUBIN, URINE AUTO; Value: NEGATIVE; Range: NEGATIVE; Status: F Test: NITRITE, URINE AUTO; Value: NEGATIVE; Range: NEGATIVE; Status: F Test: LEUKOCYTE ESTERASE, URINE AUTO; Value: NEGATIVE; Range: NEGATIVE; Status: F Test: BLOOD, URINE BLOOD; Value: NEGATIVE; Range: NEGATIVE; Status: F Test: WBC, URINE AUTO; Value: 1; Range: 0-3; Units: /HPF; Status: F Test: RBC, URINE AUTO; Value: 0; Range: 0-3; Units: /HPF; Status: F Test: BACTERIA, URINE AUTO; Value: NEGATIVE; Range: NEGATIVE; Status: F Test: SQUAMOUS EPITHELIAL CELL UR AU; Value: 2; Range: 0-6; Units: /HPF; Status: F Test: HYALINE CAST, URINE AUTO; Value: 0; Range: 0-1; Units: /LPF; Status: F Lab Order: Urine Culture; SPEC'M 08/07/16 22:27 Test: URINE CULTURE; Value: URINE CULTURE RESULT NO GROWTH CLINICAL SIGNIFICANCE 1 ORGANISM; Status: F Lab Order: RBC MORPH PROF NO CHARGE; SPEC'M 08/07/16 22:46 Test: PLATELET ESTIMATE; Range: NORMAL; Status: I Test: HYPOCHROMASIA; Value: 1+; Status: F Test: ANISOCYTOSIS; Value: 1+; Status: F Test: MICROCYTOSIS; Value: 1+; Status: F Test: PLATELET ESTIMATE; Value: NORMAL; Range: NORMAL; Status: F Radiology Order: CT ABD & PELVIS: No Contrast Test: CT ABD & PELVIS: No Contrast REASON FOR EXAMINATION: Renal colic; ; CT of the abdomen and pelvis without contrast; Clinical statement: Pain.; Technique: Multiple axial CT images were obtained from the base of the lungs to the floor of the pelv; is utilizing 5 mm axial slices without administration of contrast. Coronal and sagittal reconstructio; ns were also obtained.; Comparison: december 17, 2015.; Findings:; Chest: The visualized lung bases are clear.; Abdomen: The kidneys are normal in size bilaterally. There is no evidence of nephrolithiasis. However; , there is moderate right-sided hydronephrosis and proximal hydroureter. The distal right ureter appe; ars unremarkable however. No obstructing stone or masses identified. The liver, spleen, pancreas, and; adrenal glands are unremarkable. The aorta demonstrates normal caliber and contour. There is no abdo; yudy lymphadenopathy or ascites.; Pelvis: The bowel is unremarkable, with no obstructive or inflammatory changes. The appendix is teodoro; l. The urinary bladder is within normal limits. There is no pelvic lymphadenopathy or ascites. The ot; her pelvic structures appear unremarkable.; Bones: There are no suspicious osseous abnormalities seen.; Impression:; 1. Moderate right-sided hydronephrosis with proximal right hydroureter. The distal right ureter appea; rs unremarkable however. No discrete obstructing stone or mass is identified at this time. Follow-up; is suggested as clinically indicated.; 2. No obstructive or inflammatory bowel changes.; ; Outcome: 01:34 Discharge ordered by Provider. ef1 01:36 Discharge Assessment: Patient awake, alert and oriented x 3. No cognitive and/or nn1 functional deficits noted. Patient verbalized understanding of disposition instructions. patient administered narcotics - yes. Pt provided with safe discharge. The following High Risk Discharge criteria are identified: None. Discharged to home ambulatory. Condition: stable. Prescriptions given X 2. CT Study completed. Property :Personal belongings accompany Pt. 01:50 Patient left the ED. slm Signatures: Dispatcher [employer] EDMS Luis PillaiRN RN ms2 Ailin Snow, Reg Reg Lena SalazarRN RN ck1 Brittanie Bateman PA-C PANakia ef1 Kathryn Quan Stephanie,ANGELICA DOMINGUEZ slm Mulu Diaz, Manager Language Unit jlm Miladis GormanRN HAIR af2 Snow KilgoreRN RN nn1 Ida Ambrose TonyaRN RN tm5 Snow Kilgore RN nn1 Corrections: (The following items were deleted from the chart) 00:50 00:47 General: af2 af2 Chart Complete MTDD
--- NOTE | 2016-08-10 02:52 | EDDOCDS ---
Physician Documentation [facility] Name: Toni Cortez Age: 25 yrs Sex: Female : 1990 Arrival Date: 08/07/2016 Time: 19:52 Bed I4 / M4 Private MD: Sonya Vincent Disposition: 08/08/16 01:34 Discharged to Home/Self Care. Impression: Unspecified hydronephrosis - Moderate right sided hydronephrosis with proximal Right hydroureter, No stone on CT, normal labs; most likely passed stone., Anemia, unspecified. - Condition is Stable. - Discharge Instructions: Anemia, Nonspecific, Hydronephrosis. - Prescriptions for Percocet 5- 325 mg Oral Tablet - take 1 tablet by ORAL route every 6 hours As needed MDD: 4 tabs; 10 tablet. promethazine 25 mg Oral Tablet - take 1 tablet by ORAL route every 6 hours As needed; 12 tablet. - Medication Reconciliation, Local Pharmacy Hours form. - Follow up: Sonya Vincent; When: 1 - 2 days; Reason: Recheck today's complaints, Continuance of care. Follow up: Emergency Department; Reason: Worsening of conditions. Follow up: Boris Patel; When: 1 - 2 days; Reason: Further diagnostic work-up, Recheck today's complaints, Continuance of care. - Problem is new. - Symptoms have improved. Historical: - Allergies: Aspirin (Anaphylaxis); Gastrografin; Reglan (syncope); Tramadol HCl (seizure); - Home Meds: 1. digoxin 125 mcg Oral tab as needed for racing heart PRN racing heart rate 2. ferrous sulfate 325 mg (65 mg iron) Oral tab three times a day 3. omeprazole 20 mg Oral chew 20 mg daily - PMHx: Cardiomyopathy; Crohn's; ''Enlarged spleen''; GERD; muscular dystrophy; Ovarian cyst; - PSHx: Cholecystectomy; - Social history: Smoking status: Patient states was never smoker of tobacco. No barriers to communication noted, The patient speaks fluent Micronesian. - Family history: No immediate family members are acutely ill. - : The pt / caregiver states he / she is not on anticoagulants. Home medication list is obtained from the patient. - Exposure Risk Screening:: None identified. 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 10 in. (177.80 cm); Pain 7/10; 08/08 00:48 BP 117 / 65; Pulse 61; Resp 18 S; Temp 98.1(TE); Pulse Ox 100% on R/A; af2 01:31 BP 103 / 59; Pulse 60; Resp 18; Temp 97.9; Pulse Ox 100% ; Pain 9/10; jlm 08/07 19:54 Body Mass Index 29.56 (93.44 kg, 177.80 cm) sew MDM: 08/07 22:23 NS 0.9% 1000 ml IV at bolus once ordered. ef1 22:23 Ondansetron 4 mg IVP once ordered. ef1 22:23 IV Saline Lock ordered. ef1 22:23 Undress patient appropriately for examination ordered. ef1 22:23 UCG by Nursing ordered. ef1 22:24 morphine 4 mg IVP once ordered. ef1 22:25 Amylase Ordered. EDMS 22:25 Basic Metabolic Profile Ordered. EDMS 22:25 CBC with Diff Ordered. EDMS 22:25 Lipase Ordered. EDMS 22:25 Liver Profile Ordered. EDMS 22:25 Urinalysis Ordered. EDMS 22:25 Urine Culture Ordered. EDMS 22:25 CT ABD & PELVIS: No Contrast Ordered. EDMS 22:25 NOTHING BY MOUTH+DIET ordered. EDMS 23:12 Financial registration complete. [facility] 23:21 [facility] Payment Agreement was scanned into [employer] and attached to record. gjb 23:28 RBC MORPH PROF NO CHARGE Ordered. EDMS 08/08 00:01 CBC with Diff Reviewed. ef1 00:01 Urinalysis Reviewed. ef1 00:01 RBC MORPH PROF NO CHARGE Reviewed. ef1 00:17 Basic Metabolic Profile Reviewed. ef1 00:17 Amylase Reviewed. ef1 00:17 Lipase Reviewed. ef1 00:17 Liver Profile Reviewed. ef1 01:26 CT ABD & PELVIS: No Contrast Reviewed. ef1 01:34 oxyCODONE-acetaminophen 4 pack 5 mg-325 mg 1 packets PO once; Dispense with pt, take as ef1 per instruction on package ordered. 10:40 T-Sheet-- Draft Copy was scanned into [employer] and attached to record. 10:40 Radiology Report was scanned into [employer] and attached to record. gb Point of Care Testing: Urine : 08/07 22:32 hCG Reading: Negative; Control Reading: Positive; nn1 Ranges: Administered Medications: 23:43 Drug: NS 0.9% 1000 ml [sodium chloride 0.9 % intravenous solution] Route: IV; Rate: af2 bolus; Site: left hand; 08/08 01:42 Follow up: IV Status: Completed infusion; IV Intake: 1000ml slm 08/07 23:43 Drug: Ondansetron 4 mg [ondansetron HCl 2 mg/mL intravenous solution (2 mL)] Route: af2 IVP; Site: left hand; 23:43 Drug: morphine 4 mg [morphine 4 mg/mL intravenous cartridge (1 mL)] Route: IVP; Site: af2 left hand; 08/08 01:50 Drug: oxyCODONE-acetaminophen 4 pack 1 packets [oxycodone-acetaminophen 5 mg-325 mg slm tablet (1 tabs)] {Co-Signature: nn1 (Snow Kilgore RN).} Route: PO; Signatures: Dispatcher [employer] EDMS Ailin Snow, Nitesh Reg Brittanie Santacruz PA-C PANakia ef1 Eduarda Topete,COLOR LABORATORY TECHNICIAN COLOR LABORATORY TECHNICIAN Snow Lombardi,HAIR RN nn1 Ida Ambrose Tonya, RN RN tm5 Miladis Gorman RN af2 Snow Kilgore RN nn1 The chart was reviewed and I authenticate all verbal orders and agree with the evaluation and treatment provided.Attachments: 08/07 23:21 [facility] Payment Agreement gjb 08/08 10:40 T-Sheet-- Draft Copy gb Chart Complete MTDD
== END 2016-08-08 01:50 | disposition home or self-care (01) ==
LOC: M ED 19:52
DX: N13.30 Unspecified hydronephrosis (principal); D64.9 Anemia, unspecified; I42.9 Cardiomyopathy, unspecified; K50.90 Crohn's disease, unspecified, without complications; K21.9 Gastro-esophageal reflux disease without esophagitis; G71.0 Muscular dystrophy; N83.209 Unspecified ovarian cyst, unspecified side; Z79.899 Other long term (current) drug therapy; Z88.6 Allergy status to analgesic agent
CPT/HCPCS: 36415; 74176; 80048; 80076; 81001; 81025; 82150; 83690; 85025; 87086; 96361; 96374; 96375; 99284; J2405

== ENCOUNTER → 2016-09-04 | Outpatient (CLI) | payer OTHER ==
[~2016-09-04] MED LIST changes: +ISOVUE-370 76% 100ML VIAL (Q9967) As Ordered ONE
--- NOTE | 2016-09-05 09:46 | REP ---
CT ABDOMEN AND PELVIS WITHOUT AND WITH CONTRAST: 09/04/2016. Clinical history: Hydronephrosis. Comparison: CT without contrast 08/08/2016, 07/05/2016, CT with contrast 01/11/2016. Technique : Scanning through the abdomen pelvis without IV contrast followed by a bolus of 100 mL Isovue 370 and scanning through the abdomen and pelvis and venous and two delayed phases. Coronal and sagittal reconstructions and delayed phase. CT abdomen: Lung bases are clear. The heart is not enlarged and there is no pericardial thickening or effusion. No hiatal hernia is seen. Liver and spleen are not enlarged. They show no focal hepatic mass, biliary dilatation nor adjacent ascites. There is no splenic focal lesion. There is a calcification in the spleen from old granulomatous disease. There are clips from prior cholecystectomy. Adrenal glands are normal. Pancreas shows no mass ductal dilatation or inflammatory change. Stomach, small bowel loops and colon were all grossly intact with moderate stool in the right colon and gas distending the transverse colon with a left colon collapsed. This is a similar appearance to previous study and unremarkable. Kidneys show no stone or mass on the noncontrast images there is no hydronephrosis. On contrast images there is progressive extrarenal pelves bilaterally. Mild dilatation collecting system, right greater than left on delayed images. The proximal ureter and renal pelvis are dilated above the point where the ureter crosses posterior to the right gonadal vein. Retrocecal appendix is seen without dilatation or inflammatory change. No solid mass or cyst or perinephric fluid. Course of the ureters to the bladder is without dilatation and there is no stone. The bone windows show lumbar and lower thoracic spine, posterior elements and the visualized ribs all intact. CT pelvis: Bone windows show hips, pelvis, sacrum, SI joints and lumbosacral junction intact. Distal ureters without dilatation or stone. There are a few pelvic phleboliths. There are tubal clamps bilaterally. Uterus anteverted, not enlarged. No adnexal mass. Distal small bowel loops unremarkable. Colon including distal left colon, sigmoid and rectum unremarkable. There is no ventral or inguinal hernia or pathologic sized inguinal adenopathy. On the reconstructions on the earlier and later delayed images the extrarenal pelves are seen, right greater than left and progressive development of mild hydronephrosis. The appearance is consistent with the UPJ type obstruction present only without fluid challenge. Right side the caliber change is clearly at the location where the ureter crosses behind the right gonadal vein of the left caliber change just slightly above the crossing behind that left gonadal vein where the ureter takes a sharp turn in its course. No other findings. Impression: 1. There is no renal, ureteral or bladder stone. 2. Contrast in the venous phase images show no evidence of hydronephrosis with extrarenal pelves on these increased in size with a delayed and further delayed images which demonstrate development of UPJ type obstruction with dilatation of the collecting system and the ureter below the crossing behind of the proximal ureter at the right and left proximal gonadal veins remains normal caliber throughout. There are no other significant findings. Signed by Garett Lassiter MD 09/05/2016 03:40 P
== END ==
LOC: M RAD 16:53
PROVIDERS: ATTEND Nurse Practitioner Women's Health
DX: N13.30 Unspecified hydronephrosis (principal)

== ENCOUNTER → 2016-09-10 | Outpatient (CLI) | payer OTHER ==
[~2016-09-10] MED LIST changes: -ISOVUE-370 76% 100ML VIAL (Q9967) As Ordered ONE
[2016-09-10 16:07] LABS: MEAN CORPUSCULAR HEMOGLOBIN 21.6 pg (27.0-33.0); MEAN CORPUSCULAR HGB CONC 27.7 g/dl (32.0-36.5); MEAN CORPUSCULAR VOLUME 77.9 fl (80.0-96.0); RED CELL DISTRIBUTION WIDTH 16.9 % (11.5-14.5); WHITE BLOOD COUNT 3.2 K/mm3 (4.0-10.0)
[2016-09-10 16:31] LABS: ANION GAP 7 MEQ/L (8-16); BLOOD UREA NITROGEN 13 MG/DL (7-18); CALCIUM LEVEL 8.8 MG/DL (8.5-10.1); CARBON DIOXIDE LEVEL 26 MEQ/L (21-32); CHLORIDE LEVEL 110 MEQ/L (98-107); CREATININE FOR GFR 0.77 MG/DL (0.55-1.02); GLOMERULAR FILTRATION RATE > 60.0 (>60); GLUCOSE, FASTING 93 MG/DL (70-105); SODIUM LEVEL 143 MEQ/L (136-145)
== END ==
LOC: M LAB 15:29
PROVIDERS: ATTEND Nurse Practitioner Women's Health
DX: N13.39 Other hydronephrosis (principal)

== ENCOUNTER → 2016-09-15 | Outpatient (CLI) | payer OTHER ==
[~2016-09-15] MED LIST changes: +FUROSEMIDE 20 MG/2 ML VIAL (J1940) As Ordered ONE
--- NOTE | 2016-09-15 12:18 | REP ---
NUCLEAR RENAL SCINTIGRAPHY WITH DIFFERENTIAL FLOW AND FUNCTION ANALYSIS AND POST LASIX RENOGRAPHY: HISTORY: Right flank pain. Hydronephrosis. Comparison is made with CT study from September 04, 2016. TECHNIQUE: 8.6 mCi technetium 99m MAG3 is injected and posterior flow and excretory phase images are acquired. Renal cortical regions of interest are drawn and time activity curves are plotted for renal functional analysis. 20 mg of intravenous Lasix is administered and post Lasix renography is carried out. SCINTIGRAPHIC FINDINGS: Posterior flow study is normal. Excretory phase images show no evidence of intrarenal mass. Renal function is symmetric with intrarenal collecting system labeling bilaterally at the 3-minute image. Subsequent images demonstrate mildly prominent renal pelves bilaterally. This is a little more prominent on the right than the left. This is compatible with extrarenal pelvis configuration. Differential renal function analysis is normal with 49% of overall, cortical counts coming from the left kidney and 52% of overall cortical counts coming from the right kidney. Dqrd-up-sivf activity is normal bilaterally, 2 minutes on the left and 3 minutes on the right. [id number]-rc-nygn max activity is normal bilaterally as well measured at 9.1 minutes on the left and 10.1 minutes on the right. Post Lasix renography demonstrates normal washout of the collecting systems bilaterally with T1/2 post Lasix of 6.0 minutes on the left and 7.5 minutes on the right. No evidence of obstructive uropathy seen. IMPRESSION: Extrarenal pelvis configuration bilaterally. No evidence of obstruction on either side. Signed by Sergio Hurst MD 09/15/2016 03:35 P
== END ==
LOC: M RAD 09:40
PROVIDERS: ATTEND Nurse Practitioner Women's Health
DX: N13.30 Unspecified hydronephrosis (principal)

== ENCOUNTER 2016-10-03 01:08 | Emergency (ER) | payer OTHER ==
[~2016-10-03] VITALS: Ht 177.8 cm; Wt 95.3 kg
[~2016-10-03 01:08] MED LIST changes: -FUROSEMIDE 20 MG/2 ML VIAL (J1940) As Ordered ONE
[2016-10-03 04:49] LABS: ABG BASE EXCESS -0.7 (-2.0-2.0); ABG HCO3 23.9 MEQ/L (22.0-26.0); ABG PARTIAL PRESSURE CO2 38.5 mmHg (35.0-45.0); ABG PARTIAL PRESSURE O2 120.5 mmHg (75.0-100.0)
[2016-10-03 05:14] LABS: BASO % 0.5 % (0.0-1.0); EOS # 0.1 K/mm3 (0.0-0.50); EOS % 2.2 % (0.0-3.0); LARGE UNSTAINED CELL # 0.1 K/mm3 (0.0-0.4); LARGE UNSTAINED CELL % 1.6 % (0.0-4.0); LYMPH # 1.6 K/mm3 (1.5-6.5); LYMPH % 36.4 % (24.0-44.0); MEAN CORPUSCULAR HEMOGLOBIN 21.9 pg (27.0-33.0); MEAN CORPUSCULAR HGB CONC 28.3 g/dl (32.0-36.5); MEAN CORPUSCULAR VOLUME 77.1 fl (80.0-96.0); MONO # 0.2 K/mm3 (0.0-0.8); MONO % 5.4 % (0.0-5.0); NEUTROPHILS # 2.3 K/mm3 (1.8-7.7); NEUTROPHILS % 53.9 % (36.0-66.0); PLATELET COUNT, AUTOMATED 180 k/mm3 (150-450); RED CELL DISTRIBUTION WIDTH 17.6 % (11.5-14.5); WHITE BLOOD COUNT 4.3 K/mm3 (4.0-10.0)
[2016-10-03 05:15] LABS: ADD MORPHOLOGY? YES
[2016-10-03 05:16] LABS: CONTROL LINE HCG INT CTR LINE PRESENT
[2016-10-03 05:24] LABS: ALBUMIN 4.2 GM/DL (3.2-5.2); ALBUMIN/GLOBULIN RATIO 1.08 (1.00-1.93); ALKALINE PHOSPHATASE 78 U/L (45-117); ALT/SGPT 35 U/L (12-78); AMYLASE 48 U/L (25-115); ANION GAP 11 MEQ/L (8-16); AST/SGOT 45 U/L (15-37); BILIRUBIN,DIRECT < 0.1 MG/DL (0.0-0.2); BILIRUBIN,TOTAL 0.2 MG/DL (0.2-1.0); BLOOD UREA NITROGEN 14 MG/DL (7-18); CALCIUM LEVEL 9.1 MG/DL (8.5-10.1); CARBON DIOXIDE LEVEL 27 MEQ/L (21-32); CHLORIDE LEVEL 105 MEQ/L (98-107); CREATININE FOR GFR 0.82 MG/DL (0.55-1.02); GLOMERULAR FILTRATION RATE > 60.0 (>60); GLUCOSE, FASTING 85 MG/DL (70-105); POTASSIUM SERUM 4.1 MEQ/L (3.5-5.1); SODIUM LEVEL 143 MEQ/L (136-145); TOTAL PROTEIN 8.1 GM/DL (6.4-8.2)
[2016-10-03 05:39] LABS: ANISOCYTOSIS 1+; HYPOCHROMASIA 1+
--- NOTE | 2016-10-03 06:10 | REPUSA ---
CLINICAL HISTORY: Abdominal pain. TECHNIQUE: Multiple axial, sagittal and coronal CT images were obtained through the abdomen and pelvi s without administration of oral or IV contrast material. COMMENTS: Comparison is made to the prior exam on 08/08/2016. Fluid-filled distended stomach. Fluid-filled mildly dilated proximal small bowel loops. The liver is of uniform attenuation without mass or defect. There is no intra or extrahepatic biliary ductal dilatation. The spleen is normal. The gallbladder is surgically absent. The pancreas is of normal contour and attenuation characteristi cs. There is no evidence of adrenal mass. The kidneys are normal in size, shape and configuration. Mildly dilated extrarenal pelves. No residua l hydronephrosis. No renal or ureteral calculi are identified. There is no hydroureter or hydronephro sis. There is no evidence for appendicitis. There is no bowel wall thickening. No evidence for small or la rge bowel obstruction. There is no evidence of abdominal ascites or lymphadenopathy. There is no evidence of intrinsic or extrinsic bladder mass. There is no pelvic ascites or lymphadeno shea. Images of the lung bases show no evidence of pleural or parenchymal mass. There are no pleural effusi ons. The bony structures are free of lytic or blastic lesions. IMPRESSION: Gastroparesis. Fluid-filled mildly dilated proximal small bowels. Mild ileus. Prior cholecystectomy. Thank you for your kind referral of this patient.
[2016-10-03 06:46] VITALS: BP 134/71
--- NOTE | 2016-10-03 07:00 | REP ---
Clinical: Chest pain . Comparison: 03/13/2016 . Technique: PA and lateral. Findings: The mediastinum and cardiac silhouette are normal. The lung al are clear and without acute consolidation, effusion, or pneumothorax. The skeletal structures are intact and normal. Impression: 1. No acute cardiopulmonary process. Signed by Nate Plasencia MD 10/03/2016 06:52 A
--- NOTE | 2016-10-03 09:03 | ECGEPIP ---
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
== END 2016-10-03 06:47 | disposition home or self-care (01) ==
LOC: M ED 03:02
DX: R10.9 Unspecified abdominal pain (principal)

== ENCOUNTER 2016-10-13 04:34 | Emergency (ER) | payer OTHER ==
[~2016-10-13] VITALS: Ht 177.8 cm; Wt 91.2 kg
[2016-10-13] MEDS ORDERED: ONDANSETRON 4MG/2ML VIAL (J2405) IV ONE (07:30)
[2016-10-13] MEDS ORDERED: NORCO, ANEXSIA 5/325MG TABLET (HYDROcodone/ACETAMINOPHEN) PO ONE (07:30)
--- NOTE | 2016-10-13 08:31 | REP ---
Clinical: Acute left upper quadrant pain. Technique: Real time grimaldo scale and color evaluation using curved array transducer. Findings: The spleen is very minimally enlarged measuring 13.8 x 3.5 x 10.1 cm (MN=033), but essentially normal in contour and echogenicity without significant focal splenic abnormality. Incidental note is made of splenic calcifications. A 2.4 cm accessory spleen is identified in the left upper quadrant. The left kidney is normal in reniform shape and echogenicity without hydronephrosis and measures 13.0 x 4.6 x 4.2 cm. No ascites in the visualized right upper quadrant. Impression: Minimally enlarged spleen with small calcifications suggesting prior infection/ granulomatous disease. Normal left kidney. No ascites. Signed by Nate Plasencia MD 10/13/2016 08:23 A
[2016-10-13 08:39] LABS: BASO % 0.5 % (0.0-1.0); EOS # 0.1 K/mm3 (0.0-0.50); EOS % 2.1 % (0.0-3.0); LARGE UNSTAINED CELL # 0.1 K/mm3 (0.0-0.4); LARGE UNSTAINED CELL % 1.9 % (0.0-4.0); LYMPH # 1.5 K/mm3 (1.5-6.5); LYMPH % 34.6 % (24.0-44.0); MEAN CORPUSCULAR HEMOGLOBIN 21.4 pg (27.0-33.0); MEAN CORPUSCULAR HGB CONC 27.6 g/dl (32.0-36.5); MEAN CORPUSCULAR VOLUME 77.3 fl (80.0-96.0); MONO # 0.2 K/mm3 (0.0-0.8); MONO % 5.3 % (0.0-5.0); NEUTROPHILS # 2.5 K/mm3 (1.8-7.7); NEUTROPHILS % 55.6 % (36.0-66.0); PLATELET COUNT, AUTOMATED 168 k/mm3 (150-450); RED CELL DISTRIBUTION WIDTH 17.2 % (11.5-14.5); WHITE BLOOD COUNT 4.5 K/mm3 (4.0-10.0)
[2016-10-13 08:42] LABS: ADD MORPHOLOGY? YES
[2016-10-13] MEDS ORDERED: MORPHINE 2 MG/ML 1ML SYRINGE IV ONE (08:45)
[2016-10-13 08:56] LABS: ALBUMIN 3.7 GM/DL (3.2-5.2); ALBUMIN/GLOBULIN RATIO 1.12 (1.00-1.93); ALKALINE PHOSPHATASE 66 U/L (45-117); ALT/SGPT 24 U/L (12-78); AMYLASE 43 U/L (25-115); ANION GAP 10 MEQ/L (8-16); AST/SGOT 28 U/L (15-37); BILIRUBIN,DIRECT < 0.1 MG/DL (0.0-0.2); BILIRUBIN,TOTAL 0.3 MG/DL (0.2-1.0); BLOOD UREA NITROGEN 17 MG/DL (7-18); CALCIUM LEVEL 8.4 MG/DL (8.5-10.1); CARBON DIOXIDE LEVEL 25 MEQ/L (21-32); CHLORIDE LEVEL 107 MEQ/L (98-107); CREATININE FOR GFR 0.63 MG/DL (0.55-1.02); GLOMERULAR FILTRATION RATE > 60.0 (>60); GLUCOSE, FASTING 83 MG/DL (70-105); SODIUM LEVEL 142 MEQ/L (136-145)
[2016-10-13 09:35] LABS: MICROCYTOSIS 1+
[2016-10-13 09:36] LABS: ANISOCYTOSIS 1+; HYPOCHROMASIA 3+
--- NOTE | 2016-10-13 09:36 | REP ---
Clinical: Acute abdominal pain. Technique: Upright view of the chest with supine and upright views of the abdomen and pelvis. Findings: Frontal upright view of the chest demonstrates no acute cardiopulmonary process or free air below the diaphragm to suspect pneumoperitoneum. Supine and upright views of the abdomen and pelvis demonstrate nonspecific bowel gas pattern without obstruction or perforation. No organomegaly. No abnormal calcifications. Skeletal structures normal for age. Evidence of prior cholecystectomy and tubal ligation. Impression: Nonspecific bowel gas pattern. Signed by Nate Plasencia MD 10/13/2016 09:27 A
[2016-10-13 09:40] VITALS: BP 120/65
== END 2016-10-13 10:02 | disposition home or self-care (01) ==
LOC: M ED 05:47
DX: R10.12 Left upper quadrant pain (principal); R11.0 Nausea; I10 Essential (primary) hypertension; E03.9 Hypothyroidism, unspecified; R56.9 Unspecified convulsions; G43.909 Migraine, unspecified, not intractable, without status migrainosus; G71.19 Other specified myotonic disorders; Z88.5 Allergy status to narcotic agent; Z88.8 Allergy status to other drugs, medicaments and biological substances; Z91.041 Radiographic dye allergy status
CPT/HCPCS: 74022; 76705; 80048; 80076; 81001; 82150; 83690; 84702; 85025; 96374; 96375; 99283; J2405

== ENCOUNTER 2016-10-31 22:13 | Emergency (ER) | payer OTHER ==
[~2016-10-31] VITALS: Ht 177.8 cm; Wt 90.3 kg
[2016-10-31] MEDS ORDERED: DIGO0.127 PO (22:24)
[2016-10-31] MEDS ORDERED: IRON65TA PO (22:24)
[2016-11-01 01:22] LABS: ADD MORPHOLOGY? YES; BASO % 0.2 % (0.0-1.0); EOS % 1.1 % (0.0-3.0); LARGE UNSTAINED CELL # 0.1 K/mm3 (0.0-0.4); LARGE UNSTAINED CELL % 1.9 % (0.0-4.0); LYMPH # 1.5 K/mm3 (1.5-6.5); LYMPH % 31.4 % (24.0-44.0); MEAN CORPUSCULAR HEMOGLOBIN 22.1 pg (27.0-33.0); MEAN CORPUSCULAR HGB CONC 28.5 g/dl (32.0-36.5); MEAN CORPUSCULAR VOLUME 77.4 fl (80.0-96.0); MONO # 0.2 K/mm3 (0.0-0.8); MONO % 4.1 % (0.0-5.0); NEUTROPHILS % 61.3 % (36.0-66.0); PLATELET COUNT, AUTOMATED 171 k/mm3 (150-450); RED CELL DISTRIBUTION WIDTH 17.5 % (11.5-14.5); WHITE BLOOD COUNT 4.9 K/mm3 (4.0-10.0)
[2016-11-01 01:39] LABS: ALBUMIN/GLOBULIN RATIO 1.11 (1.00-1.93); ALKALINE PHOSPHATASE 89 U/L (45-117); ALT/SGPT 41 U/L (12-78); AMYLASE 48 U/L (25-115); ANION GAP 5 MEQ/L (8-16); AST/SGOT 29 U/L (15-37); BILIRUBIN,DIRECT 0.1 MG/DL (0.0-0.2); BILIRUBIN,TOTAL 0.3 MG/DL (0.2-1.0); BLOOD UREA NITROGEN 15 MG/DL (7-18); CALCIUM LEVEL 8.6 MG/DL (8.5-10.1); CARBON DIOXIDE LEVEL 29 MEQ/L (21-32); CHLORIDE LEVEL 107 MEQ/L (98-107); CREATININE FOR GFR 0.75 MG/DL (0.55-1.02); GLOMERULAR FILTRATION RATE > 60.0 (>60); GLUCOSE, FASTING 89 MG/DL (70-105); POTASSIUM SERUM 4.1 MEQ/L (3.5-5.1); SODIUM LEVEL 141 MEQ/L (136-145); TOTAL PROTEIN 7.6 GM/DL (6.4-8.2)
[2016-11-01 01:51] LABS: ANISOCYTOSIS 1+; HYPOCHROMASIA 3+; MICROCYTOSIS 1+
[2016-11-01 02:28] VITALS: BP 106/58
== END 2016-11-01 02:42 | disposition home or self-care (01) ==
LOC: M ED 23:21
DX: R10.11 Right upper quadrant pain (principal); G89.29 Other chronic pain

== ENCOUNTER 2016-11-08 23:03 | Emergency (ER) | payer OTHER ==
[~2016-11-08] VITALS: Ht 177.8 cm; Wt 91.2 kg
[~2016-11-08 23:03] MED LIST changes: +IRON65TA PO
[2016-11-09 02:43] LABS: BASO % 0.3 % (0.0-1.0); EOS % 0.5 % (0.0-3.0); LARGE UNSTAINED CELL # 0.1 K/mm3 (0.0-0.4); LARGE UNSTAINED CELL % 0.8 % (0.0-4.0); LYMPH # 1.2 K/mm3 (1.5-6.5); LYMPH % 12.4 % (24.0-44.0); MEAN CORPUSCULAR HEMOGLOBIN 21.6 pg (27.0-33.0); MEAN CORPUSCULAR HGB CONC 28.3 g/dl (32.0-36.5); MEAN CORPUSCULAR VOLUME 76.3 fl (80.0-96.0); MONO # 0.3 K/mm3 (0.0-0.8); MONO % 3.8 % (0.0-5.0); NEUTROPHILS # 7.3 K/mm3 (1.8-7.7); NEUTROPHILS % 82.2 % (36.0-66.0); PLATELET COUNT, AUTOMATED 180 k/mm3 (150-450); WHITE BLOOD COUNT 8.9 K/mm3 (4.0-10.0)
[2016-11-09 02:44] LABS: ADD MORPHOLOGY? YES
[2016-11-09 02:58] LABS: ALBUMIN/GLOBULIN RATIO 1.08 (1.00-1.93); ALKALINE PHOSPHATASE 71 U/L (45-117); ALT/SGPT 32 U/L (12-78); ANION GAP 7 MEQ/L (8-16); AST/SGOT 35 U/L (15-37); BILIRUBIN,DIRECT 0.1 MG/DL (0.0-0.2); BILIRUBIN,TOTAL 0.4 MG/DL (0.2-1.0); BLOOD UREA NITROGEN 14 MG/DL (7-18); CALCIUM LEVEL 8.9 MG/DL (8.5-10.1); CARBON DIOXIDE LEVEL 27 MEQ/L (21-32); CHLORIDE LEVEL 108 MEQ/L (98-107); CREATININE FOR GFR 0.63 MG/DL (0.55-1.02); GLOMERULAR FILTRATION RATE > 60.0 (>60); GLUCOSE, FASTING 87 MG/DL (70-105); POTASSIUM SERUM 4.2 MEQ/L (3.5-5.1); SODIUM LEVEL 142 MEQ/L (136-145); TOTAL PROTEIN 7.7 GM/DL (6.4-8.2)
[2016-11-09 03:07] LABS: HYPOCHROMASIA 2+
[2016-11-09 03:08] LABS: ANISOCYTOSIS 1+
[2016-11-09 03:22] LABS: CONTROL LINE HCG INT CTR LINE PRESENT
[2016-11-09 04:08] VITALS: BP 99/59
== END 2016-11-09 04:19 | disposition home or self-care (01) ==
LOC: M ED 23:50
DX: R10.9 Unspecified abdominal pain (principal)

== ENCOUNTER → 2016-11-24 | Outpatient (CLI) | payer OTHER ==
[2016-11-24 19:29] LABS: ALBUMIN 3.9 GM/DL (3.2-5.2); ALBUMIN/GLOBULIN RATIO 1.08 (1.00-1.93); ALKALINE PHOSPHATASE 68 U/L (45-117); ALT/SGPT 31 U/L (12-78); ANION GAP 8 MEQ/L (8-16); AST/SGOT 29 U/L (15-37); BILIRUBIN,TOTAL 0.3 MG/DL (0.2-1.0); BLOOD UREA NITROGEN 17 MG/DL (7-18); CALCIUM LEVEL 8.8 MG/DL (8.5-10.1); CARBON DIOXIDE LEVEL 26 MEQ/L (21-32); CHLORIDE LEVEL 108 MEQ/L (98-107); CHOLESTEROL LEVEL 121 MG/DL (<200); CREATININE FOR GFR 0.62 MG/DL (0.55-1.02); GLOMERULAR FILTRATION RATE > 60.0 (>60); GLUCOSE, FASTING 80 MG/DL (70-105); SODIUM LEVEL 142 MEQ/L (136-145); TOTAL PROTEIN 7.5 GM/DL (6.4-8.2); TRIGLYCERIDES LEVEL 132 MG/DL (<150)
== END ==
LOC: M LAB 16:54
PROVIDERS: ATTEND Family Medicine Addiction Medicine
DX: E03.9 Hypothyroidism, unspecified (principal)

== ENCOUNTER → 2016-12-10 | Outpatient (CLI) | payer OTHER ==
--- NOTE | 2016-12-11 09:22 | REP ---
MRI BRAIN WITHOUT CONTRAST: HISTORY: Headaches. COMPARISON: 02/04/2013. Several punctate areas of increased signal intensity on T2-weighted images are present in the subcortical white matter of the frontal lobes. There is no intraparenchymal hemorrhage, infarct, mass or midline shift. The ventricular system is normal in appearance. There is no extracerebral collection. The visualized sinuses are clear. IMPRESSION: There are several punctate areas of increased signal intensity in the subcortical white matter of the frontal lobes. This is a nonspecific finding, however, can be seen in condition such as migraine. Signed by José Miguel Lundy MD 12/11/2016 09:39 A
== END ==
LOC: M RAD 16:15
PROVIDERS: ATTEND Family Medicine Addiction Medicine
DX: R51 Headache (principal)

== ENCOUNTER 2017-01-07 22:10 | Emergency (ER) | payer MEDICAID, OTHER ==
[~2017-01-07] VITALS: Ht 177.8 cm; Wt 98.5 kg
[2017-01-07] MEDS ORDERED: NS 500 ML IV ONE (23:45)
[2017-01-07] MEDS ORDERED: MECLIZINE 25 MG TABLET PO ONE (23:45)
[2017-01-08 00:46] LABS: ADD MANUAL DIFFER YES; MEAN CORPUSCULAR HEMOGLOBIN 21.6 pg (27.0-33.0); MEAN CORPUSCULAR VOLUME 83.1 fl (80.0-96.0); PLATELET COUNT, AUTOMATED 171 k/mm3 (150-450); RED CELL DISTRIBUTION WIDTH 17.1 % (11.5-14.5); WHITE BLOOD COUNT 4.9 K/mm3 (4.0-10.0)
[2017-01-08 00:59] LABS: CONTROL LINE HCG INT CTR LINE PRESENT
[2017-01-08 01:10] LABS: ALBUMIN 3.7 GM/DL (3.2-5.2); ALBUMIN/GLOBULIN RATIO 1.12 (1.00-1.93); ALKALINE PHOSPHATASE 70 U/L (45-117); ALT/SGPT 30 U/L (12-78); ANION GAP 7 MEQ/L (8-16); AST/SGOT 27 U/L (15-37); BILIRUBIN,DIRECT 0.1 MG/DL (0.0-0.2); BILIRUBIN,TOTAL 0.3 MG/DL (0.2-1.0); BLOOD UREA NITROGEN 10 MG/DL (7-18); CALCIUM LEVEL 8.3 MG/DL (8.5-10.1); CARBON DIOXIDE LEVEL 24 MEQ/L (21-32); CHLORIDE LEVEL 112 MEQ/L (98-107); CREATININE FOR GFR 0.66 MG/DL (0.55-1.02); GLOMERULAR FILTRATION RATE > 60.0 (>60); GLUCOSE, FASTING 90 MG/DL (70-105); POTASSIUM SERUM 3.7 MEQ/L (3.5-5.1); SODIUM LEVEL 143 MEQ/L (136-145)
[2017-01-08 01:21] LABS: EOSINOPHILS 1 % (0-5)
[2017-01-08 01:23] LABS: ANISOCYTOSIS 1+; HYPOCHROMASIA 3+
[2017-01-08 01:24] LABS: PLATELET CLUMPS SMALL AMT
[2017-01-08 02:00] LABS: METHADONE URINE NEGATIVE (NEGATIVE)
[2017-01-08] MEDS ORDERED: MECL-68 PO (02:09)
[2017-01-08 02:15] VITALS: BP 143/77
--- NOTE | 2017-01-08 05:43 | ECGEPIP ---
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
--- NOTE | 2017-01-08 07:50 | REP ---
PA and lateral chest: Comparisons 10/13/2016. The lung al are clear. The cardiac size is normal The marci, mediastinum, and bony thorax are unremarkable. Impression: Negative PA and lateral chest. There is a electronic device superimposed over the chest. This is unchanged. Signed by J Luis Urias MD 01/08/2017 07:40 A
== END 2017-01-08 02:23 | disposition home or self-care (01) ==
LOC: M ED 23:29
DX: R42 Dizziness and giddiness (principal)
CPT/HCPCS: 36415; 71020; 80048; 80076; 80306; 81001; 82550; 82553; 84443; 84703; 85025; 93005; 99284; G0480

== ENCOUNTER → 2017-01-12 | Outpatient (CLI) | payer MEDICAID ==
[~2017-01-12] MED LIST changes: +MECL-68 PO
--- NOTE | 2017-01-12 19:01 | REP ---
Clinical: Pain without injury. Technique: Lateral and axial views of the left calcaneus. Findings: Osseous structures and associated joint spaces are intact and normal. No acute fracture or dislocation. Surrounding soft tissues are unremarkable. Impression: Normal left calcaneus radiographs. Signed by Nate Plasencia MD 01/12/2017 06:52 P
== END ==
LOC: M WUC 18:40
PROVIDERS: ATTEND Physician Assistant
DX: M25.572 Pain in left ankle and joints of left foot (principal)

== ENCOUNTER 2017-04-30 16:23 | Emergency (ER) | payer MEDICAID, OTHER ==
[~2017-04-30] VITALS: Ht 177.8 cm; Wt 95.0 kg
[2017-04-30] MEDS ORDERED: ONDANSETRON 4MG/2ML VIAL (J2405) IV ONE (18:00)
[2017-04-30] MEDS ORDERED: MORPHINE 4 MG/ML 1ML SYRINGE IV PRN (18:00)
[2017-04-30] MEDS ORDERED: NS 1,000 ML IV ONE (18:00)
[2017-04-30 18:39] LABS: BASO % 0.4 % (0.0-1.0); EOS # 0.1 10^3/uL (0.0-0.50); IMMATURE GRANULOCYTE % 0.2 % (0-0); LYMPH # 1.5 10^3/uL (1.5-6.5); LYMPH % 28.4 % (24.0-44.0); MEAN CORPUSCULAR HEMOGLOBIN 30.3 pg (27.0-33.0); MEAN CORPUSCULAR HGB CONC 32.4 g/dl (32.0-36.5); MEAN CORPUSCULAR VOLUME 93.6 fl (80.0-96.0); MONO # 0.3 10^3/uL (0.0-0.8); MONO % 6.3 % (0.0-5.0); NEUTROPHILS # 3.3 10^3/uL (1.8-7.7); NEUTROPHILS % 63.7 % (36.0-66.0); PLATELET COUNT, AUTOMATED 157 10^3/uL (150-450); RED CELL DISTRIBUTION WIDTH 16.8 % (11.5-14.5); WHITE BLOOD COUNT 5.2 10^3/uL (4.0-10.0)
[2017-04-30 18:58] LABS: ALBUMIN 4.2 GM/DL (3.2-5.2); ALBUMIN/GLOBULIN RATIO 1.27 (1.00-1.93); ALKALINE PHOSPHATASE 61 U/L (45-117); ALT/SGPT 31 U/L (12-78); ANION GAP 6 MEQ/L (8-16); AST/SGOT 24 U/L (15-37); BILIRUBIN,DIRECT 0.2 MG/DL (0.0-0.2); BILIRUBIN,TOTAL 0.5 MG/DL (0.2-1.0); BLOOD UREA NITROGEN 15 MG/DL (7-18); CALCIUM LEVEL 9.5 MG/DL (8.5-10.1); CARBON DIOXIDE LEVEL 28 MEQ/L (21-32); CHLORIDE LEVEL 106 MEQ/L (98-107); CREATININE FOR GFR 0.66 MG/DL (0.55-1.02); GLOMERULAR FILTRATION RATE > 60.0 (>60); GLUCOSE, FASTING 81 MG/DL (70-105); POTASSIUM SERUM 3.7 MEQ/L (3.5-5.1); SODIUM LEVEL 140 MEQ/L (136-145); TOTAL PROTEIN 7.5 GM/DL (6.4-8.2)
[2017-04-30] MEDS ORDERED: ISOVUE-370 76% 100ML VIAL (Q9967) As Ordered ONE (18:58)
--- NOTE | 2017-04-30 19:50 | REP ---
HISTORY: Abdominal pain. COMPARISON: Multiple, the latest of which is dated 10/03/2016. It should be stated that this 26-year-old has had 28 CT scans, 17 of which have been of the abdomen and pelvis since 12/11/2012. CONTRAST UTILIZED: 100 mL Isovue-370. The lung bases are clear and unchanged. The patient is status post cholecystectomy. The liver, spleen, pancreas, adrenal glands and kidneys are again seen to be within normal limits. The abdominal aorta and paraaortic regions are again seen to be within normal limits. Limited noncontrast enhanced evaluation of the bowel loops and their mesenteries show them to be within normal limits without evidence of a significant change from the prior exams. The appendix is again well visualized, is unchanged from the prior exam, and has a normal appearance. There is no free fluid or free air in the abdomen. There is no evidence of an intraabdominal mass or adenopathy. CT pelvis: The bowel loops and their mesenteries are within normal limits. There is no evidence of a mass or adenopathy. There is a T-shaped radiodensity in the uterus consistent with an IUD, which represents a change from the prior of 10/03/2016. There is a trace amount of free pelvic fluid as on the prior exam and unchanged likely physiologic. Bone window technique throughout the exam shows the osseous structures to be stable and intact. IMPRESSION: CT findings, as described above, are within normal limits. Signed by Rafa Mayer DO 04/30/2017 07:54 P
[2017-04-30 20:36] VITALS: BP 105/63
== END 2017-04-30 20:39 | disposition home or self-care (01) ==
LOC: M ED 16:23
DX: R10.84 Generalized abdominal pain (principal); R11.0 Nausea; R19.7 Diarrhea, unspecified; R07.9 Chest pain, unspecified; I10 Essential (primary) hypertension; I51.7 Cardiomegaly; G43.909 Migraine, unspecified, not intractable, without status migrainosus; E03.9 Hypothyroidism, unspecified; M54.9 Dorsalgia, unspecified; K50.90 Crohn's disease, unspecified, without complications; G71.19 Other specified myotonic disorders; Z87.442 Personal history of urinary calculi; Z97.5 Presence of (intrauterine) contraceptive device; Z79.899 Other long term (current) drug therapy; Z88.5 Allergy status to narcotic agent; Z88.8 Allergy status to other drugs, medicaments and biological substances
CPT/HCPCS: 36415; 74177; 80048; 80076; 81001; 81025; 83690; 85025; 87086; 96374; 96375; 99284; J2405; Q9967

== ENCOUNTER 2017-06-06 18:50 | Emergency (ER) | payer OTHER ==
[~2017-06-06] VITALS: Ht 177.8 cm; Wt 93.6 kg
[2017-06-06] MEDS ORDERED: NORC1TAB4 PO (19:03)
[2017-06-06] MEDS ORDERED: NS 1,000 ML IV ONE (20:15)
[2017-06-06 22:26] LABS: BASO % 0.6 % (0.0-1.0); EOS # 0.2 10^3/uL (0.0-0.50); EOS % 2.5 % (0.0-3.0); IMMATURE GRANULOCYTE % 0.3 % (0-0); LYMPH # 1.4 10^3/uL (1.5-6.5); LYMPH % 19.9 % (24.0-44.0); MEAN CORPUSCULAR HGB CONC 31.5 g/dl (32.0-36.5); MEAN CORPUSCULAR VOLUME 98.4 fl (80.0-96.0); MONO # 0.5 10^3/uL (0.0-0.8); MONO % 7.5 % (0.0-5.0); NEUTROPHILS # 4.9 10^3/uL (1.8-7.7); NEUTROPHILS % 69.2 % (36.0-66.0); PLATELET COUNT, AUTOMATED 152 10^3/uL (150-450); RED CELL DISTRIBUTION WIDTH 13.6 % (11.5-14.5); WHITE BLOOD COUNT 7.1 10^3/uL (4.0-10.0)
[2017-06-06 22:49] LABS: ANION GAP 5 MEQ/L (8-16); BLOOD UREA NITROGEN 9 MG/DL (7-18); CALCIUM LEVEL 8.4 MG/DL (8.5-10.1); CARBON DIOXIDE LEVEL 31 MEQ/L (21-32); CHLORIDE LEVEL 109 MEQ/L (98-107); CREATININE FOR GFR 0.58 MG/DL (0.55-1.02); GLOMERULAR FILTRATION RATE > 60.0 (>60); GLUCOSE, FASTING 82 MG/DL (70-105); POTASSIUM SERUM 3.6 MEQ/L (3.5-5.1); SODIUM LEVEL 145 MEQ/L (136-145)
[2017-06-06] MEDS ORDERED: ISOVUE-370 76% 100ML VIAL (Q9967) As Ordered ONE (22:54)
[2017-06-06 23:20] VITALS: BP 105/63
== END 2017-06-06 23:24 | disposition home or self-care (01) ==
LOC: M ED 18:50
DX: Z43.6 Encounter for attention to other artificial openings of urinary tract (principal)

== ENCOUNTER 2017-06-09 14:26 | Emergency (ER) | payer OTHER ==
[~2017-06-09] VITALS: Ht 177.8 cm; Wt 93.6 kg
[2017-06-09 14:26] VITALS: BP 119/67
[~2017-06-09 14:26] MED LIST changes: +NORC1TAB4 PO
[2017-06-09] MEDS ORDERED: ONDANSETRON 4MG/2ML VIAL (J2405) IV ONE (15:45)
[2017-06-09] MEDS ORDERED: NS 1,000 ML IV ONE (15:45)
[2017-06-09] MEDS ORDERED: MORPHINE 4 MG/ML 1ML SYRINGE IV ONE (15:45)
[2017-06-09 16:04] LABS: BASO % 0.3 % (0.0-1.0); EOS # 0.2 10^3/uL (0.0-0.50); EOS % 2.9 % (0.0-3.0); IMMATURE GRANULOCYTE % 0.2 % (0-0); LYMPH # 1.3 10^3/uL (1.5-6.5); LYMPH % 19.9 % (24.0-44.0); MEAN CORPUSCULAR HEMOGLOBIN 31.7 pg (27.0-33.0); MEAN CORPUSCULAR HGB CONC 32.8 g/dl (32.0-36.5); MEAN CORPUSCULAR VOLUME 96.7 fl (80.0-96.0); MONO # 0.4 10^3/uL (0.0-0.8); MONO % 6.1 % (0.0-5.0); NEUTROPHILS # 4.6 10^3/uL (1.8-7.7); NEUTROPHILS % 70.6 % (36.0-66.0); PLATELET COUNT, AUTOMATED 187 10^3/uL (150-450); RED CELL DISTRIBUTION WIDTH 13.6 % (11.5-14.5); WHITE BLOOD COUNT 6.5 10^3/uL (4.0-10.0)
[2017-06-09 16:09] LABS: CALCIUM OXALATE CRYSTALS SMALL
[2017-06-09 16:20] LABS: ANION GAP 5 MEQ/L (8-16); BLOOD UREA NITROGEN 8 MG/DL (7-18); CALCIUM LEVEL 9.4 MG/DL (8.5-10.1); CARBON DIOXIDE LEVEL 28 MEQ/L (21-32); CHLORIDE LEVEL 110 MEQ/L (98-107); GLOMERULAR FILTRATION RATE > 60.0 (>60); GLUCOSE, FASTING 79 MG/DL (70-105); SODIUM LEVEL 143 MEQ/L (136-145)
[2017-06-09] MEDS ORDERED: ISOVUE-370 76% 100ML VIAL (Q9967) As Ordered ONE (16:20)
--- NOTE | 2017-06-09 17:53 | REP ---
CT abdomen and pelvis with IV, but without oral contrast: History: Lower abdominal pain. Recent hysterectomy with bladder injury. Comparison CT study April 30, 2017. CT contrast dose: 100 mL of intravenous Isovue 370. CT findings: Preliminary digital assistant unit forester radiograph demonstrates a surgical drain within the pelvis. Bowel gas pattern is unremarkable. The lung bases are clear on axial CT images. The liver and the spleen remain normal in size and homogeneous in texture. There are surgical clips in the right upper quadrant of the abdomen post cholecystectomy. No adrenal lesion is seen. The kidneys enhance symmetrically and are morphologically intact. Pancreas is unremarkable. No evidence of free air in the upper abdomen or pelvis. Pelvic CT images demonstrate a surgical drain entering the left upper quadrant and looped within the cul-de-sac. There is a tiny quantity of fluid adjacent to the drain. Just anterior to the internal tip of the drain, there is an oval-shaped fluid collection 4.9 x 3.6 cm in diameter in the region of the right adnexa. This may be an ovarian cyst or postoperative fluid collection. No other abnormal fluid collection is seen. A Voss catheter is seen in the otherwise empty urinary bladder. No abdominal wall defect is seen. A normal appendix is noted in the right lower quadrant. Impression: 4.9 cm cystic area right ovary. Surgical drain post hysterectomy in the pelvis. Voss catheter in place. Otherwise, no significant abdominal abnormality. Signed by Sergio Hurst MD 06/09/2017 07:47 P
[2017-06-09] MEDS ORDERED: NITROFURANTOIN (MACROBID) 100 MG CAP PO ONE (18:00)
[2017-06-09] MEDS ORDERED: DERMABOND TOPICAL SKIN ADHESIVE TOP ONE (18:00)
[2017-06-09] MEDS ORDERED: MACR100C43 PO (18:00)
== END 2017-06-09 18:21 | disposition home or self-care (01) ==
LOC: M ED 14:26
DX: N30.01 Acute cystitis with hematuria (principal); G89.18 Other acute postprocedural pain; R10.9 Unspecified abdominal pain; Z96.0 Presence of urogenital implants; Z90.710 Acquired absence of both cervix and uterus; G71.11 Myotonic muscular dystrophy; I10 Essential (primary) hypertension; K50.90 Crohn's disease, unspecified, without complications; Z88.8 Allergy status to other drugs, medicaments and biological substances; Z88.5 Allergy status to narcotic agent
CPT/HCPCS: 74177; 80048; 81001; 85025; 87088; 87186; 96361; 96374; 99283; J2405; Q9967

== ENCOUNTER 2017-08-11 20:13 | Emergency (ER) | payer OTHER ==
[2017-08-11 22:22] LABS: BASO % 0.5 % (0.0-1.0); EOS # 0.1 10^3/uL (0.0-0.50); EOS % 1.4 % (0.0-3.0); HEMATOCRIT 38.3 % (36.0-47.0); HEMOGLOBIN 12.1 g/dl (12.0-16.0); IMMATURE GRANULOCYTE % 0.2 % (0-0); LYMPH # 1.7 10^3/uL (1.5-6.5); LYMPH % 29.3 % (24.0-44.0); MEAN CORPUSCULAR HEMOGLOBIN 30.9 pg (27.0-33.0); MEAN CORPUSCULAR HGB CONC 31.6 g/dl (32.0-36.5); MONO # 0.4 10^3/uL (0.0-0.8); MONO % 7.2 % (0.0-5.0); NEUTROPHILS # 3.5 10^3/uL (1.8-7.7); NEUTROPHILS % 61.4 % (36.0-66.0); PLATELET COUNT, AUTOMATED 141 10^3/uL (150-450); RED BLOOD COUNT 3.91 10^6/uL (4.00-5.40); RED CELL DISTRIBUTION WIDTH 13.1 % (11.5-14.5); WHITE BLOOD COUNT 5.7 10^3/uL (4.0-10.0)
[2017-08-11] MEDS: MORPHINE 4 MG/ML 1ML SYRINGE IV (22:44)
[2017-08-11] MEDS: NS 1,000 ML IV (22:44)
[2017-08-11 22:50] LABS: ALBUMIN 3.8 GM/DL (3.2-5.2); ALBUMIN/GLOBULIN RATIO 1.15 (1.00-1.93); ALKALINE PHOSPHATASE 74 U/L (45-117); ALT/SGPT 34 U/L (12-78); ANION GAP 6 MEQ/L (8-16); AST/SGOT 36 U/L (7-37); BILIRUBIN,DIRECT < 0.1 MG/DL (0.0-0.2); BILIRUBIN,TOTAL 0.3 MG/DL (0.2-1.0); BLOOD UREA NITROGEN 15 MG/DL (7-18); CARBON DIOXIDE LEVEL 25 MEQ/L (21-32); CHLORIDE LEVEL 112 MEQ/L (98-107); CREATININE FOR GFR 0.67 MG/DL (0.55-1.02); GLOMERULAR FILTRATION RATE > 60.0 (>60); GLUCOSE, FASTING 91 MG/DL (70-100); POTASSIUM SERUM 4.7 MEQ/L (3.5-5.1); SODIUM LEVEL 143 MEQ/L (136-145); TOTAL PROTEIN 7.1 GM/DL (6.4-8.2)
== END 2017-08-12 00:40 | disposition home or self-care (01) ==
LOC: M ED 20:13
DX: R11.2 Nausea with vomiting, unspecified (principal); R10.31 Right lower quadrant pain; R19.7 Diarrhea, unspecified; I10 Essential (primary) hypertension; K50.90 Crohn's disease, unspecified, without complications; G71.11 Myotonic muscular dystrophy; E03.9 Hypothyroidism, unspecified; D64.9 Anemia, unspecified; Z79.899 Other long term (current) drug therapy; Z88.5 Allergy status to narcotic agent; Z88.8 Allergy status to other drugs, medicaments and biological substances
CPT/HCPCS: 76857

== ENCOUNTER 2017-08-18 14:48 | Emergency (ER) | payer OTHER ==
[2017-08-18 16:18] LABS: BASO % 0.8 % (0.0-1.0); EOS # 0.1 10^3/uL (0.0-0.50); EOS % 1.3 % (0.0-3.0); HEMATOCRIT 42.6 % (36.0-47.0); HEMOGLOBIN 13.5 g/dl (12.0-16.0); IMMATURE GRANULOCYTE % 0.2 % (0-0); LYMPH # 1.5 10^3/uL (1.5-6.5); LYMPH % 28.5 % (24.0-44.0); MEAN CORPUSCULAR HEMOGLOBIN 30.2 pg (27.0-33.0); MEAN CORPUSCULAR HGB CONC 31.7 g/dl (32.0-36.5); MEAN CORPUSCULAR VOLUME 95.3 fl (80.0-96.0); MONO # 0.4 10^3/uL (0.0-0.8); MONO % 7.3 % (0.0-5.0); NEUTROPHILS # 3.2 10^3/uL (1.8-7.7); NEUTROPHILS % 61.9 % (36.0-66.0); PLATELET COUNT, AUTOMATED 183 10^3/uL (150-450); RED BLOOD COUNT 4.47 10^6/uL (4.00-5.40); RED CELL DISTRIBUTION WIDTH 12.9 % (11.5-14.5); WHITE BLOOD COUNT 5.2 10^3/uL (4.0-10.0)
[2017-08-18 16:32] LABS: D-DIMER QUANT 899.1 ng/ml (<500)
[2017-08-18 16:42] LABS: ANION GAP 5 MEQ/L (8-16); BLOOD UREA NITROGEN 15 MG/DL (7-18); CALCIUM LEVEL 9.6 MG/DL (8.5-10.1); CARBON DIOXIDE LEVEL 29 MEQ/L (21-32); CHLORIDE LEVEL 108 MEQ/L (98-107); CK-MB VALUE MASS 4.5 NG/ML (0.0-3.6); CPK CREATINE PHOSPHOKINASE 275 U/L (26-192); CREATININE FOR GFR 0.73 MG/DL (0.55-1.30); GLOMERULAR FILTRATION RATE > 60.0 (>60); GLUCOSE, FASTING 66 MG/DL (70-100); MB/CK RELATIVE INDEX 1.63 (< OR =4); POTASSIUM SERUM 3.7 MEQ/L (3.5-5.1); SODIUM LEVEL 142 MEQ/L (136-145); TROPONIN I < 0.02 NG/ML (< 0.10)
[2017-08-18] MEDS: MORPHINE 4 MG/ML 1ML SYRINGE IV (17:02)
[2017-08-18] MEDS ORDERED: ISOVUE-370 76% 100ML VIAL (Q9967) As Ordered (17:13)
[2017-08-18 20:25] LABS: CK-MB VALUE MASS 4.2 NG/ML (0.0-3.6); CPK CREATINE PHOSPHOKINASE 243 U/L (26-192); MB/CK RELATIVE INDEX 1.72 (< OR =4); TROPONIN I < 0.02 NG/ML (< 0.10)
== END 2017-08-18 20:52 | disposition home or self-care (01) ==
LOC: M ED 14:48
DX: R07.89 Other chest pain (principal); R00.2 Palpitations; R06.02 Shortness of breath; R11.0 Nausea; I42.9 Cardiomyopathy, unspecified; Z86.718 Personal history of other venous thrombosis and embolism; Z88.5 Allergy status to narcotic agent; Z88.8 Allergy status to other drugs, medicaments and biological substances
CPT/HCPCS: Q9967

== ENCOUNTER 2017-08-26 00:42 | Emergency (ER) | payer OTHER ==
[2017-08-26 01:58] LABS: KETONE, URINE AUTO RFX NEGATIVE (NEGATIVE); LEUKOCYTE ESTERASE UR AUTO RFX 2+ (NEGATIVE); MUCUS, URINE RFX SMALL (NEGATIVE); NITRITE, URINE AUTO RFX NEGATIVE (NEGATIVE); RBC, URINE AUTO RFX 1 /HPF (0-3); SPECIFIC GRAVITY UR AUTO RFX 1.008 (1.002-1.035); SQUAM EPITHELIAL CELL UR AURFX 4 /HPF (0-6); WBC, URINE AUTO RFX 2 /HPF (0-3)
[2017-08-26 02:03] LABS: BASO % 0.7 % (0.0-1.0); EOS # 0.1 10^3/uL (0.0-0.50); EOS % 1.6 % (0.0-3.0); HEMATOCRIT 40.5 % (36.0-47.0); IMMATURE GRANULOCYTE % 0.2 % (0-0); LYMPH # 1.7 10^3/uL (1.5-6.5); LYMPH % 30.9 % (24.0-44.0); MEAN CORPUSCULAR HGB CONC 32.1 g/dl (32.0-36.5); MEAN CORPUSCULAR VOLUME 96.4 fl (80.0-96.0); MONO # 0.4 10^3/uL (0.0-0.8); MONO % 7.3 % (0.0-5.0); NEUTROPHILS # 3.3 10^3/uL (1.8-7.7); NEUTROPHILS % 59.3 % (36.0-66.0); PLATELET COUNT, AUTOMATED 177 10^3/uL (150-450); RED CELL DISTRIBUTION WIDTH 13.1 % (11.5-14.5); WHITE BLOOD COUNT 5.5 10^3/uL (4.0-10.0)
[2017-08-26 02:30] LABS: ALBUMIN 4.3 GM/DL (3.2-5.2); ALBUMIN/GLOBULIN RATIO 1.16 (1.00-1.93); ALKALINE PHOSPHATASE 72 U/L (45-117); ALT/SGPT 30 U/L (12-78); ANION GAP 9 MEQ/L (8-16); AST/SGOT 29 U/L (7-37); BILIRUBIN,TOTAL 0.4 MG/DL (0.2-1.0); BLOOD UREA NITROGEN 13 MG/DL (7-18); CALCIUM LEVEL 8.8 MG/DL (8.5-10.1); CARBON DIOXIDE LEVEL 28 MEQ/L (21-32); CHLORIDE LEVEL 110 MEQ/L (98-107); CREATININE FOR GFR 0.76 MG/DL (0.55-1.30); GLOMERULAR FILTRATION RATE > 60.0 (>60); GLUCOSE, FASTING 100 MG/DL (70-100); LIPASE 155 U/L (73-393); POTASSIUM SERUM 4.2 MEQ/L (3.5-5.1); SODIUM LEVEL 147 MEQ/L (136-145)
== END 2017-08-26 03:52 | disposition home or self-care (01) ==
LOC: M ED 00:42
DX: R10.9 Unspecified abdominal pain (principal); R11.10 Vomiting, unspecified; Z88.5 Allergy status to narcotic agent; Z88.8 Allergy status to other drugs, medicaments and biological substances
CPT/HCPCS: 83690

== ENCOUNTER → 2017-08-31 | Outpatient (CLI) | payer OTHER | LOC: M WHC 13:31 | DX: G71.11 Myotonic muscular dystrophy (principal); S62.102D Fracture of unspecified carpal bone, left wrist, subsequent encounter for fracture with routine healing; X58.XXXD Exposure to other specified factors, subsequent encounter | CPT/HCPCS: 77080 ==

== ENCOUNTER → 2017-09-02 | Outpatient (CLI) | payer OTHER ==
[2017-09-02 15:56] LABS: BASO % 0.6 % (0.0-1.0); EOS # 0.1 10^3/uL (0.0-0.50); EOS % 1.9 % (0.0-3.0); HEMATOCRIT 39.5 % (36.0-47.0); HEMOGLOBIN 12.6 g/dl (12.0-16.0); IMMATURE GRANULOCYTE % 0.3 % (0-3.0); LYMPH # 0.6 10^3/uL (1.5-6.5); LYMPH % 18.9 % (24.0-44.0); MEAN CORPUSCULAR HEMOGLOBIN 30.6 pg (27.0-33.0); MEAN CORPUSCULAR HGB CONC 31.9 g/dl (32.0-36.5); MEAN CORPUSCULAR VOLUME 95.9 fl (80.0-96.0); MONO # 0.3 10^3/uL (0.0-0.8); MONO % 9.3 % (0.0-5.0); NEUTROPHILS # 2.2 10^3/uL (1.8-7.7); PLATELET COUNT, AUTOMATED 152 10^3/uL (150-450); RED BLOOD COUNT 4.12 10^6/uL (4.00-5.40); RED CELL DISTRIBUTION WIDTH 13.1 % (11.5-14.5); WHITE BLOOD COUNT 3.1 10^3/uL (4.0-10.0)
[2017-09-02 16:26] LABS: PROTHROMBIN TIME 13.3 SECONDS (12.4-14.5)
== END ==
LOC: M LAB 15:30
DX: K92.0 Hematemesis (principal)
CPT/HCPCS: 85610

== ENCOUNTER 2017-09-05 07:57 | Emergency (ER) | payer OTHER ==
[2017-09-05 09:36] LABS: BASO % 0.3 % (0.0-1.0); EOS # 0.1 10^3/uL (0.0-0.50); EOS % 2.1 % (0.0-3.0); HEMATOCRIT 40.2 % (36.0-47.0); IMMATURE GRANULOCYTE % 0.3 % (0-3.0); LYMPH # 1.2 10^3/uL (1.5-6.5); LYMPH % 32.1 % (24.0-44.0); MEAN CORPUSCULAR HEMOGLOBIN 30.9 pg (27.0-33.0); MEAN CORPUSCULAR HGB CONC 32.3 g/dl (32.0-36.5); MEAN CORPUSCULAR VOLUME 95.5 fl (80.0-96.0); MONO # 0.4 10^3/uL (0.0-0.8); MONO % 10.7 % (0.0-5.0); NEUTROPHILS % 54.5 % (36.0-66.0); PLATELET COUNT, AUTOMATED 146 10^3/uL (150-450); RED BLOOD COUNT 4.21 10^6/uL (4.00-5.40); RED CELL DISTRIBUTION WIDTH 13.2 % (11.5-14.5); WHITE BLOOD COUNT 3.7 10^3/uL (4.0-10.0)
[2017-09-05 09:50] LABS: INR 1.01; PROTHROMBIN TIME 13.4 SECONDS (12.4-14.5)
[2017-09-05 09:51] LABS: PARTIAL THROMBOPLASTIN TIME 29.8 SECONDS (26.8-37.9)
[2017-09-05 10:12] LABS: ALBUMIN 4.1 GM/DL (3.2-5.2); ALBUMIN/GLOBULIN RATIO 1.14 (1.00-1.93); ALKALINE PHOSPHATASE 83 U/L (45-117); ALT/SGPT 38 U/L (12-78); ANION GAP 8 MEQ/L (8-16); AST/SGOT 32 U/L (7-37); BILIRUBIN,DIRECT 0.1 MG/DL (0.0-0.2); BILIRUBIN,TOTAL 0.3 MG/DL (0.2-1.0); BLOOD UREA NITROGEN 14 MG/DL (7-18); CALCIUM LEVEL 8.3 MG/DL (8.5-10.1); CARBON DIOXIDE LEVEL 28 MEQ/L (21-32); CHLORIDE LEVEL 107 MEQ/L (98-107); CPK CREATINE PHOSPHOKINASE 253 U/L (26-192); CREATININE FOR GFR 0.81 MG/DL (0.55-1.30); GLOMERULAR FILTRATION RATE > 60.0 (>60); GLUCOSE, FASTING 93 MG/DL (70-100); LIPASE 137 U/L (73-393); POTASSIUM SERUM 3.6 MEQ/L (3.5-5.1); SODIUM LEVEL 143 MEQ/L (136-145); TOTAL PROTEIN 7.7 GM/DL (6.4-8.2); TROPONIN I < 0.02 NG/ML (< 0.10)
[2017-09-05 10:17] LABS: CK-MB VALUE MASS 3.6 NG/ML (0.0-3.6); MB/CK RELATIVE INDEX 1.42 (< OR =4)
[2017-09-05] MEDS ORDERED: ISOVUE-370 76% 100ML VIAL (Q9967) As Ordered (10:26)
== END 2017-09-05 12:04 | disposition home or self-care (01) ==
LOC: M ED 07:57
DX: R07.81 Pleurodynia (principal); E83.51 Hypocalcemia; E03.9 Hypothyroidism, unspecified; I25.10 Atherosclerotic heart disease of native coronary artery without angina pectoris; D64.9 Anemia, unspecified; I51.7 Cardiomegaly; I42.9 Cardiomyopathy, unspecified; G71.11 Myotonic muscular dystrophy; K50.90 Crohn's disease, unspecified, without complications; G43.909 Migraine, unspecified, not intractable, without status migrainosus; Z88.5 Allergy status to narcotic agent; Z88.8 Allergy status to other drugs, medicaments and biological substances; Z87.891 Personal history of nicotine dependence
CPT/HCPCS: Q9967

== ENCOUNTER → 2017-09-07 | Outpatient (CLI) | payer OTHER ==
[2017-09-07 18:36] LABS: FERRITIN 7 NG/ML (8-252)
== END ==
LOC: M LAB 16:46
DX: K92.0 Hematemesis (principal)
CPT/HCPCS: 82728

== ENCOUNTER 2017-09-26 02:57 | Emergency (ER) | payer OTHER ==
[2017-09-26] MEDS ORDERED: NITROGLYCERIN 0.4 MG SUBL TABLET SL (05:15)
[2017-09-26 05:40] LABS: BASO % 0.5 % (0.0-1.0); EOS # 0.1 10^3/uL (0.0-0.50); EOS % 1.3 % (0.0-3.0); HEMATOCRIT 39.7 % (36.0-47.0); HEMOGLOBIN 12.9 g/dl (12.0-16.0); IMMATURE GRANULOCYTE % 0.2 % (0-3.0); LYMPH # 2.2 10^3/uL (1.5-6.5); LYMPH % 36.2 % (24.0-44.0); MEAN CORPUSCULAR HEMOGLOBIN 30.6 pg (27.0-33.0); MEAN CORPUSCULAR HGB CONC 32.5 g/dl (32.0-36.5); MEAN CORPUSCULAR VOLUME 94.3 fl (80.0-96.0); MONO # 0.5 10^3/uL (0.0-0.8); MONO % 8.3 % (0.0-5.0); NEUTROPHILS # 3.3 10^3/uL (1.8-7.7); NEUTROPHILS % 53.5 % (36.0-66.0); PLATELET COUNT, AUTOMATED 168 10^3/uL (150-450); RED BLOOD COUNT 4.21 10^6/uL (4.00-5.40); RED CELL DISTRIBUTION WIDTH 13.6 % (11.5-14.5); WHITE BLOOD COUNT 6.1 10^3/uL (4.0-10.0)
[2017-09-26] MEDS: KETOROLAC 30 MG/ML VIAL (J1885) IV (06:00)
[2017-09-26] MEDS: NS 1,000 ML IV (06:00)
[2017-09-26 06:46] LABS: ANION GAP 7 MEQ/L (8-16); BLOOD UREA NITROGEN 16 MG/DL (7-18); CALCIUM LEVEL 8.6 MG/DL (8.5-10.1); CARBON DIOXIDE LEVEL 26 MEQ/L (21-32); CHLORIDE LEVEL 112 MEQ/L (98-107); CPK CREATINE PHOSPHOKINASE 185 U/L (26-192); CREATININE FOR GFR 0.57 MG/DL (0.55-1.30); GLOMERULAR FILTRATION RATE > 60.0 (>60); GLUCOSE, FASTING 86 MG/DL (70-100); MB/CK RELATIVE INDEX 1.62 (< OR =4); POTASSIUM SERUM 3.9 MEQ/L (3.5-5.1); SODIUM LEVEL 145 MEQ/L (136-145); TROPONIN I < 0.02 NG/ML (< 0.10)
[2017-09-26 07:25] LABS: CONTROL LINE HCG INT CTR LINE PRESENT; HCG, SERUM QUALITATIVE NEGATIVE (NEGATIVE)
== END 2017-09-26 08:19 | disposition home or self-care (01) ==
LOC: M ED 02:57
DX: R07.89 Other chest pain (principal); Z79.899 Other long term (current) drug therapy; Z88.8 Allergy status to other drugs, medicaments and biological substances; Z88.5 Allergy status to narcotic agent
CPT/HCPCS: J1885

== ENCOUNTER 2017-10-07 19:25 | Emergency (ER) | payer OTHER ==
[2017-10-07] MEDS ORDERED: MORPHINE 4 MG/ML 1ML VIAL (J2270) IV (21:15)
[2017-10-07 21:51] LABS: BASO % 0.7 % (0.0-1.0); EOS # 0.1 10^3/uL (0.0-0.50); EOS % 1.1 % (0.0-3.0); HEMATOCRIT 41.2 % (36.0-47.0); HEMOGLOBIN 13.1 g/dl (12.0-16.0); IMMATURE GRANULOCYTE % 0.2 % (0-3.0); LYMPH # 1.7 10^3/uL (1.5-6.5); LYMPH % 30.2 % (24.0-44.0); MEAN CORPUSCULAR HEMOGLOBIN 29.7 pg (27.0-33.0); MEAN CORPUSCULAR HGB CONC 31.8 g/dl (32.0-36.5); MEAN CORPUSCULAR VOLUME 93.4 fl (80.0-96.0); MONO # 0.3 10^3/uL (0.0-0.8); MONO % 5.4 % (0.0-5.0); NEUTROPHILS # 3.5 10^3/uL (1.8-7.7); NEUTROPHILS % 62.4 % (36.0-66.0); PLATELET COUNT, AUTOMATED 160 10^3/uL (150-450); RED BLOOD COUNT 4.41 10^6/uL (4.00-5.40); RED CELL DISTRIBUTION WIDTH 13.8 % (11.5-14.5); WHITE BLOOD COUNT 5.6 10^3/uL (4.0-10.0)
[2017-10-07] MEDS: ONDANSETRON 4MG/2ML VIAL (J2405) IV (21:57)
[2017-10-07] MEDS: NS 1,000 ML IV (21:57)
[2017-10-07 22:19] LABS: ALBUMIN 4.1 GM/DL (3.2-5.2); ALBUMIN/GLOBULIN RATIO 1.08 (1.00-1.93); ALKALINE PHOSPHATASE 84 U/L (45-117); ALT/SGPT 27 U/L (12-78); ANION GAP 5 MEQ/L (8-16); AST/SGOT 25 U/L (7-37); BILIRUBIN,DIRECT 0.1 MG/DL (0.0-0.2); BILIRUBIN,TOTAL 0.4 MG/DL (0.2-1.0); BLOOD UREA NITROGEN 11 MG/DL (7-18); CALCIUM LEVEL 8.9 MG/DL (8.5-10.1); CARBON DIOXIDE LEVEL 29 MEQ/L (21-32); CHLORIDE LEVEL 109 MEQ/L (98-107); CREATININE FOR GFR 0.68 MG/DL (0.55-1.30); GLOMERULAR FILTRATION RATE > 60.0 (>60); GLUCOSE, FASTING 81 MG/DL (70-100); LIPASE 135 U/L (73-393); POTASSIUM SERUM 3.8 MEQ/L (3.5-5.1); SODIUM LEVEL 143 MEQ/L (136-145); TOTAL PROTEIN 7.9 GM/DL (6.4-8.2)
[2017-10-07] MEDS ORDERED: ISOVUE-370 76% 100ML VIAL (Q9967) As Ordered (22:30)
[2017-10-07 23:32] LABS: KETONE, URINE AUTO RFX NEGATIVE (NEGATIVE); LEUKOCYTE ESTERASE UR AUTO RFX NEGATIVE (NEGATIVE); MUCUS, URINE RFX SMALL (NEGATIVE); NITRITE, URINE AUTO RFX POSITIVE (NEGATIVE); RBC, URINE AUTO RFX 1 /HPF (0-3); SPECIFIC GRAVITY UR AUTO RFX 1.004 (1.002-1.035); SQUAM EPITHELIAL CELL UR AURFX 2 /HPF (0-6); WBC, URINE AUTO RFX 2 /HPF (0-3)
[2017-10-08] MEDS: CIPROFLOXACIN 500 MG TAB PO (00:09)
== END 2017-10-08 00:19 | disposition home or self-care (01) ==
LOC: M ED 10-08 00:19
DX: N73.9 Female pelvic inflammatory disease, unspecified (principal); N30.90 Cystitis, unspecified without hematuria; N83.202 Unspecified ovarian cyst, left side; I10 Essential (primary) hypertension; R56.9 Unspecified convulsions; K50.90 Crohn's disease, unspecified, without complications; E03.9 Hypothyroidism, unspecified; D64.9 Anemia, unspecified; Z79.899 Other long term (current) drug therapy; Z88.5 Allergy status to narcotic agent; Z88.8 Allergy status to other drugs, medicaments and biological substances; Z86.718 Personal history of other venous thrombosis and embolism; Z86.79 Personal history of other diseases of the circulatory system; Z86.69 Personal history of other diseases of the nervous system and sense organs; Z98.890 Other specified postprocedural states
CPT/HCPCS: J2405

== ENCOUNTER → 2017-10-13 | Outpatient (CLI) | payer OTHER | LOC: M RAD 12:52 | DX: N83.209 Unspecified ovarian cyst, unspecified side (principal) | CPT/HCPCS: 76856 ==

== ENCOUNTER 2017-11-07 17:47 | Emergency (ER) | payer OTHER ==
[2017-11-07 19:55] LABS: BEDSIDE GLUCOSE 67 MG/DL (70-105)
[2017-11-07 20:06] LABS: BASO % 0.4 % (0.0-1.0); EOS # 0.1 10^3/uL (0.0-0.50); EOS % 1.1 % (0.0-3.0); HEMATOCRIT 42.8 % (36.0-47.0); HEMOGLOBIN 13.6 g/dl (12.0-15.5); IMMATURE GRANULOCYTE % 0.4 % (0-3.0); LYMPH # 1.7 10^3/uL (1.5-6.5); MEAN CORPUSCULAR HEMOGLOBIN 30.4 pg (27.0-33.0); MEAN CORPUSCULAR HGB CONC 31.8 g/dl (32.0-36.5); MEAN CORPUSCULAR VOLUME 95.5 fl (80.0-96.0); MONO # 0.3 10^3/uL (0.0-0.8); MONO % 5.8 % (0.0-5.0); NEUTROPHILS # 3.2 10^3/uL (1.8-7.7); NEUTROPHILS % 60.3 % (36.0-66.0); PLATELET COUNT, AUTOMATED 172 10^3/uL (150-450); RED BLOOD COUNT 4.48 10^6/uL (4.00-5.40); RED CELL DISTRIBUTION WIDTH 14.1 % (11.5-14.5); WHITE BLOOD COUNT 5.3 10^3/uL (4.0-10.0)
[2017-11-07 20:14] LABS: AMPHETAMINES LEVEL URINE NEGATIVE (NEGATIVE); BARBITURATES URINE NEGATIVE (NEGATIVE); BENZODIAZEPINES URINE NEGATIVE (NEGATIVE); CANNABINOIDS URINE NEGATIVE (NEGATIVE); COCAINE METABOLITE URINE NEGATIVE (NEGATIVE); METHADONE URINE NEGATIVE (NEGATIVE); OPIATES URINE NEGATIVE (NEGATIVE); PHENCYCLIDINE URINE NEGATIVE (NEGATIVE)
[2017-11-07 20:24] LABS: INR 0.99; PROTHROMBIN TIME 13.2 SECONDS (12.4-14.5)
[2017-11-07 20:25] LABS: PARTIAL THROMBOPLASTIN TIME 33.2 SECONDS (26.8-37.9)
[2017-11-07 20:27] LABS: D-DIMER QUANT 588.9 ng/ml (<500)
[2017-11-07 20:33] LABS: LACTIC ACID SEPSIS PROTOCOL 1.9 MMOL/L (0.4-2.0)
[2017-11-07 20:35] LABS: ANION GAP 6 MEQ/L (8-16); BLOOD UREA NITROGEN 12 MG/DL (7-18); CARBON DIOXIDE LEVEL 28 MEQ/L (21-32); CHLORIDE LEVEL 108 MEQ/L (98-107); CPK CREATINE PHOSPHOKINASE 291 U/L (26-192); CREATININE FOR GFR 0.79 MG/DL (0.55-1.30); GLOMERULAR FILTRATION RATE > 60.0 (>60); GLUCOSE, FASTING 87 MG/DL (70-100); MAGNESIUM LEVEL 2.3 MG/DL (1.8-2.4); SODIUM LEVEL 142 MEQ/L (136-145); TROPONIN I < 0.02 NG/ML (< 0.10)
[2017-11-07 20:37] LABS: CK-MB VALUE MASS 3.9 NG/ML (<3.6); ETHYL ALCOHOL (ETHANOL) < 0.003 % (0.000-0.010); MB/CK RELATIVE INDEX 1.34 (< OR =4)
[2017-11-07 20:52] LABS: CONTROL LINE HCG INT CTR LINE PRESENT; HCG, SERUM QUALITATIVE NEGATIVE (NEGATIVE)
[2017-11-07] MEDS ORDERED: ISOVUE-370 76% 100ML VIAL (Q9967) As Ordered (20:57)
[2017-11-07] MEDS: LR 1,000 ML IV (21:13)
[2017-11-07 21:36] LABS: BEDSIDE GLUCOSE 80 MG/DL (70-105)
== END 2017-11-07 22:35 | disposition home or self-care (01) ==
LOC: M ED 17:47
DX: E16.2 Hypoglycemia, unspecified (principal); G43.909 Migraine, unspecified, not intractable, without status migrainosus; K50.919 Crohn's disease, unspecified, with unspecified complications; R00.1 Bradycardia, unspecified; I44.0 Atrioventricular block, first degree; I44.7 Left bundle-branch block, unspecified; Z79.899 Other long term (current) drug therapy; Z88.6 Allergy status to analgesic agent; Z88.5 Allergy status to narcotic agent; Z88.8 Allergy status to other drugs, medicaments and biological substances
CPT/HCPCS: 70450

== ENCOUNTER 2017-11-19 01:56 | Emergency (ER) | payer OTHER ==
[2017-11-19] MEDS: NS 1,000 ML IV (02:45)
[2017-11-19 03:28] LABS: BASO % 0.7 % (0.0-1.0); EOS # 0.1 10^3/uL (0.0-0.50); EOS % 1.7 % (0.0-3.0); HEMOGLOBIN 12.7 g/dl (12.0-15.5); IMMATURE GRANULOCYTE % 0.2 % (0-3.0); LYMPH # 1.9 10^3/uL (1.5-6.5); LYMPH % 31.3 % (24.0-44.0); MEAN CORPUSCULAR HEMOGLOBIN 30.8 pg (27.0-33.0); MEAN CORPUSCULAR HGB CONC 31.8 g/dl (32.0-36.5); MEAN CORPUSCULAR VOLUME 96.9 fl (80.0-96.0); MONO # 0.5 10^3/uL (0.0-0.8); MONO % 7.6 % (0.0-5.0); NEUTROPHILS # 3.5 10^3/uL (1.8-7.7); NEUTROPHILS % 58.5 % (36.0-66.0); PLATELET COUNT, AUTOMATED 155 10^3/uL (150-450); RED BLOOD COUNT 4.13 10^6/uL (4.00-5.40); RED CELL DISTRIBUTION WIDTH 14.6 % (11.5-14.5)
[2017-11-19 03:40] LABS: CONTROL LINE HCG INT CTR LINE PRESENT; HCG, SERUM QUALITATIVE NEGATIVE (NEGATIVE)
[2017-11-19 03:55] LABS: ALBUMIN/GLOBULIN RATIO 1.07 (1.00-1.93); ALKALINE PHOSPHATASE 56 U/L (45-117); ALT/SGPT 26 U/L (12-78); ANION GAP 8 MEQ/L (8-16); AST/SGOT 25 U/L (7-37); BILIRUBIN,DIRECT < 0.1 MG/DL (0.0-0.2); BILIRUBIN,TOTAL 0.2 MG/DL (0.2-1.0); BLOOD UREA NITROGEN 14 MG/DL (7-18); CARBON DIOXIDE LEVEL 22 MEQ/L (21-32); CHLORIDE LEVEL 119 MEQ/L (98-107); CREATININE FOR GFR 0.56 MG/DL (0.55-1.30); FREE THYROXINE INDEX 2.3 % (1.3-4.8); GLOMERULAR FILTRATION RATE > 60.0 (>60); GLUCOSE, FASTING 65 MG/DL (70-100); LIPASE 117 U/L (73-393); POTASSIUM SERUM 3.3 MEQ/L (3.5-5.1); SODIUM LEVEL 149 MEQ/L (136-145); T UPTAKE 37 % (30-39); THYROXINE (T4) 6.3 UG/DL (4.5-12.0); TOTAL PROTEIN 5.8 GM/DL (6.4-8.2)
[2017-11-19] MEDS ORDERED: ISOVUE-370 76% 100ML VIAL (Q9967) As Ordered (04:28)
[2017-11-19] MEDS: POTASSIUM CHLORIDE 10 MEQ SR TABLET PO (06:00)
[2017-11-19] MEDS ORDERED: KETOROLAC 60 MG/2 ML VIAL (J1885) IM (06:00)
[2017-11-19] MEDS: ACETAMINOPHEN 325 MG TAB PO (06:15)
== END 2017-11-19 06:30 | disposition home or self-care (01) ==
LOC: M ED 01:56
DX: R10.9 Unspecified abdominal pain (principal); K21.9 Gastro-esophageal reflux disease without esophagitis; D50.9 Iron deficiency anemia, unspecified; K31.84 Gastroparesis
CPT/HCPCS: Q9967

== ENCOUNTER → 2017-12-01 | Outpatient (REF) | payer OTHER ==
[2017-12-01 20:25] LABS: ANION GAP 6 MEQ/L (8-16); BLOOD UREA NITROGEN 14 MG/DL (7-18); CALCIUM LEVEL 9.1 MG/DL (8.5-10.1); CARBON DIOXIDE LEVEL 26 MEQ/L (21-32); CHLORIDE LEVEL 110 MEQ/L (98-107); CREATININE FOR GFR 0.71 MG/DL (0.55-1.30); GLOMERULAR FILTRATION RATE > 60.0 (>60); GLUCOSE, FASTING 79 MG/DL (70-100); POTASSIUM SERUM 4.6 MEQ/L (3.5-5.1); SODIUM LEVEL 142 MEQ/L (136-145)
== END ==
LOC: M LAB REF 19:04
DX: E16.2 Hypoglycemia, unspecified (principal)

== ENCOUNTER 2017-12-12 02:49 | Emergency (ER) | payer OTHER ==
[2017-12-12] MEDS: NS 1,000 ML IV (07:27)
[2017-12-12 07:28] LABS: KETONE, URINE AUTO RFX NEGATIVE (NEGATIVE); LEUKOCYTE ESTERASE UR AUTO RFX NEGATIVE (NEGATIVE); MUCUS, URINE RFX SMALL (NEGATIVE); RBC, URINE AUTO RFX 0 /HPF (0-3); SPECIFIC GRAVITY UR AUTO RFX 1.006 (1.002-1.035); SQUAM EPITHELIAL CELL UR AURFX 3 /HPF (0-6); WBC, URINE AUTO RFX 1 /HPF (0-3)
[2017-12-12 07:29] LABS: NITRITE, URINE AUTO RFX POSITIVE (NEGATIVE)
[2017-12-12] MEDS ORDERED: ISOVUE-370 76% 100ML VIAL (Q9967) As Ordered (08:19)
[2017-12-12] MEDS: ONDANSETRON 4MG/2ML VIAL (J2405) IV (08:24)
[2017-12-12] MEDS: MORPHINE 2 MG/ML 1ML SYRINGE (J2270) IV (08:24)
[2017-12-12 08:51] LABS: BASO % 0.4 % (0.0-1.0); EOS # 0.1 10^3/uL (0.0-0.50); EOS % 1.5 % (0.0-3.0); HEMATOCRIT 37.7 % (36.0-47.0); HEMOGLOBIN 12.5 g/dl (12.0-15.5); LYMPH # 1.8 10^3/uL (1.5-6.5); LYMPH % 33.8 % (24.0-44.0); MEAN CORPUSCULAR HEMOGLOBIN 31.6 pg (27.0-33.0); MEAN CORPUSCULAR HGB CONC 33.2 g/dl (32.0-36.5); MEAN CORPUSCULAR VOLUME 95.4 fl (80.0-96.0); MONO # 0.4 10^3/uL (0.0-0.8); MONO % 7.2 % (0.0-5.0); NEUTROPHILS # 3.1 10^3/uL (1.8-7.7); NEUTROPHILS % 57.1 % (36.0-66.0); PLATELET COUNT, AUTOMATED 128 10^3/uL (150-450); RED BLOOD COUNT 3.95 10^6/uL (4.00-5.40); WHITE BLOOD COUNT 5.4 10^3/uL (4.0-10.0)
[2017-12-12 09:32] LABS: ALBUMIN 3.7 GM/DL (3.2-5.2); ALBUMIN/GLOBULIN RATIO 1.12 (1.00-1.93); ALKALINE PHOSPHATASE 78 U/L (45-117); ALT/SGPT 28 U/L (12-78); AMYLASE 41 U/L (25-115); ANION GAP 6 MEQ/L (8-16); AST/SGOT 27 U/L (7-37); BILIRUBIN,DIRECT 0.1 MG/DL (0.0-0.2); BILIRUBIN,TOTAL 0.3 MG/DL (0.2-1.0); BLOOD UREA NITROGEN 12 MG/DL (7-18); CALCIUM LEVEL 8.3 MG/DL (8.5-10.1); CARBON DIOXIDE LEVEL 27 MEQ/L (21-32); CHLORIDE LEVEL 110 MEQ/L (98-107); CREATININE FOR GFR 0.72 MG/DL (0.55-1.30); GLOMERULAR FILTRATION RATE > 60.0 (>60); GLUCOSE, FASTING 87 MG/DL (70-100); LIPASE 111 U/L (73-393); SODIUM LEVEL 143 MEQ/L (136-145)
== END 2017-12-12 11:18 | disposition home or self-care (01) ==
LOC: M ED 02:49
DX: N30.90 Cystitis, unspecified without hematuria (principal); K50.90 Crohn's disease, unspecified, without complications; R56.9 Unspecified convulsions; I51.7 Cardiomegaly; I42.9 Cardiomyopathy, unspecified; G43.909 Migraine, unspecified, not intractable, without status migrainosus; Z79.899 Other long term (current) drug therapy; Z88.5 Allergy status to narcotic agent; Z88.8 Allergy status to other drugs, medicaments and biological substances
CPT/HCPCS: J2405

== ENCOUNTER 2017-12-23 06:20 | Emergency (ER) | payer OTHER ==
[2017-12-23 07:05] LABS: BASO % 0.3 % (0.0-1.0); EOS # 0.1 10^3/uL (0.0-0.50); EOS % 1.1 % (0.0-3.0); HEMATOCRIT 41.6 % (36.0-47.0); HEMOGLOBIN 13.7 g/dl (12.0-15.5); IMMATURE GRANULOCYTE % 0.3 % (0-3.0); LYMPH # 2.1 10^3/uL (1.5-6.5); LYMPH % 20.2 % (24.0-44.0); MEAN CORPUSCULAR HEMOGLOBIN 31.4 pg (27.0-33.0); MEAN CORPUSCULAR HGB CONC 32.9 g/dl (32.0-36.5); MEAN CORPUSCULAR VOLUME 95.2 fl (80.0-96.0); MONO # 0.5 10^3/uL (0.0-0.8); MONO % 5.2 % (0.0-5.0); NEUTROPHILS # 7.6 10^3/uL (1.8-7.7); NEUTROPHILS % 72.9 % (36.0-66.0); PLATELET COUNT, AUTOMATED 155 10^3/uL (150-450); RED BLOOD COUNT 4.37 10^6/uL (4.00-5.40); RED CELL DISTRIBUTION WIDTH 13.7 % (11.5-14.5); WHITE BLOOD COUNT 10.4 10^3/uL (4.0-10.0)
[2017-12-23 07:11] LABS: CONTROL LINE HCG INT CTR LINE PRESENT; HCG, SERUM QUALITATIVE NEGATIVE (NEGATIVE)
[2017-12-23 07:20] LABS: ALBUMIN 4.1 GM/DL (3.2-5.2); ALBUMIN/GLOBULIN RATIO 1.17 (1.00-1.93); ALKALINE PHOSPHATASE 76 U/L (45-117); ALT/SGPT 34 U/L (12-78); ANION GAP 8 MEQ/L (8-16); AST/SGOT 32 U/L (7-37); BILIRUBIN,DIRECT 0.2 MG/DL (0.0-0.2); BILIRUBIN,TOTAL 0.5 MG/DL (0.2-1.0); BLOOD UREA NITROGEN 14 MG/DL (7-18); CALCIUM LEVEL 8.6 MG/DL (8.5-10.1); CARBON DIOXIDE LEVEL 25 MEQ/L (21-32); CHLORIDE LEVEL 109 MEQ/L (98-107); CREATININE FOR GFR 0.76 MG/DL (0.55-1.30); GLOMERULAR FILTRATION RATE > 60.0 (>60); GLUCOSE, FASTING 94 MG/DL (70-100); LIPASE 109 U/L (73-393); POTASSIUM SERUM 3.7 MEQ/L (3.5-5.1); SODIUM LEVEL 142 MEQ/L (136-145); TOTAL PROTEIN 7.6 GM/DL (6.4-8.2)
[2017-12-23] MEDS: KETOROLAC 30 MG/ML VIAL (J1885) IV (07:23)
[2017-12-23] MEDS: ONDANSETRON 4MG/2ML VIAL (J2405) IV (07:23)
== END 2017-12-23 08:54 | disposition home or self-care (01) ==
LOC: M ED 06:20
DX: R10.819 Abdominal tenderness, unspecified site (principal); G71.11 Myotonic muscular dystrophy; G43.909 Migraine, unspecified, not intractable, without status migrainosus; I10 Essential (primary) hypertension; I51.7 Cardiomegaly; K50.919 Crohn's disease, unspecified, with unspecified complications; D64.9 Anemia, unspecified; Z79.899 Other long term (current) drug therapy; Z88.6 Allergy status to analgesic agent; Z88.8 Allergy status to other drugs, medicaments and biological substances; Z88.5 Allergy status to narcotic agent
CPT/HCPCS: J2405

== ENCOUNTER 2017-12-31 17:27 | Emergency (ER) | payer OTHER ==
[2017-12-31] MEDS: NS 1,000 ML IV (20:19)
[2017-12-31 20:23] LABS: BASO % 0.6 % (0.0-1.0); EOS # 0.1 10^3/uL (0.0-0.50); EOS % 2.5 % (0.0-3.0); HEMATOCRIT 41.1 % (36.0-47.0); HEMOGLOBIN 13.6 g/dl (12.0-15.5); LYMPH # 1.3 10^3/uL (1.5-6.5); LYMPH % 26.3 % (24.0-44.0); MEAN CORPUSCULAR HEMOGLOBIN 31.7 pg (27.0-33.0); MEAN CORPUSCULAR HGB CONC 33.1 g/dl (32.0-36.5); MEAN CORPUSCULAR VOLUME 95.8 fl (80.0-96.0); MONO # 0.3 10^3/uL (0.0-0.8); MONO % 5.9 % (0.0-5.0); NEUTROPHILS # 3.1 10^3/uL (1.8-7.7); NEUTROPHILS % 64.7 % (36.0-66.0); PLATELET COUNT, AUTOMATED 160 10^3/uL (150-450); RED BLOOD COUNT 4.29 10^6/uL (4.00-5.40); RED CELL DISTRIBUTION WIDTH 13.4 % (11.5-14.5); WHITE BLOOD COUNT 4.8 10^3/uL (4.0-10.0)
[2017-12-31 20:33] LABS: INR 1.03; PROTHROMBIN TIME 13.6 SECONDS (12.4-14.5)
[2017-12-31 20:34] LABS: PARTIAL THROMBOPLASTIN TIME 31.1 SECONDS (26.8-37.9)
[2017-12-31 20:47] LABS: CONTROL LINE HCG INT CTR LINE PRESENT; HCG, SERUM QUALITATIVE NEGATIVE (NEGATIVE)
[2017-12-31] MEDS ORDERED: ISOVUE-370 76% 100ML VIAL (Q9967) As Ordered (20:55)
[2017-12-31 20:58] LABS: ALBUMIN 3.9 GM/DL (3.2-5.2); ALBUMIN/GLOBULIN RATIO 1.15 (1.00-1.93); ALKALINE PHOSPHATASE 73 U/L (45-117); ALT/SGPT 27 U/L (12-78); ANION GAP 8 MEQ/L (8-16); AST/SGOT 20 U/L (7-37); BILIRUBIN,DIRECT 0.1 MG/DL (0.0-0.2); BILIRUBIN,TOTAL 0.5 MG/DL (0.2-1.0); BLOOD UREA NITROGEN 7 MG/DL (7-18); CALCIUM LEVEL 8.7 MG/DL (8.5-10.1); CARBON DIOXIDE LEVEL 28 MEQ/L (21-32); CHLORIDE LEVEL 108 MEQ/L (98-107); CK-MB VALUE MASS 2.2 NG/ML (<3.6); CPK CREATINE PHOSPHOKINASE 127 U/L (26-192); CREATININE FOR GFR 0.66 MG/DL (0.55-1.30); GLOMERULAR FILTRATION RATE > 60.0 (>60); GLUCOSE, FASTING 79 MG/DL (70-100); MB/CK RELATIVE INDEX 1.73 (< OR =4); POTASSIUM SERUM 3.9 MEQ/L (3.5-5.1); SODIUM LEVEL 144 MEQ/L (136-145); TOTAL PROTEIN 7.3 GM/DL (6.4-8.2); TROPONIN I < 0.02 NG/ML (< 0.10)
[2017-12-31] MEDS: ONDANSETRON 4MG/2ML VIAL (J2405) IV (21:27)
== END 2018-01-01 00:17 | disposition home or self-care (01) ==
LOC: M ED 01-01 00:17
DX: R09.1 Pleurisy (principal); R07.89 Other chest pain; R06.02 Shortness of breath; I44.7 Left bundle-branch block, unspecified; Z79.899 Other long term (current) drug therapy; Z88.6 Allergy status to analgesic agent; Z88.5 Allergy status to narcotic agent; Z88.8 Allergy status to other drugs, medicaments and biological substances
CPT/HCPCS: J2405

== ENCOUNTER 2018-02-02 03:04 | Emergency (ER) | payer OTHER | END 2018-02-02 06:20 | disposition left against medical advice (07) | LOC: M ED 03:04 | DX: Z53.21 Procedure and treatment not carried out due to patient leaving prior to being seen by health care provider (principal) ==

== ENCOUNTER 2018-02-13 20:54 | Emergency (ER) | payer OTHER ==
[2018-02-13] MEDS: NS 1,000 ML IV (21:30)
[2018-02-13 22:28] LABS: BASO % 0.5 % (0.0-1.0); EOS # 0.1 10^3/uL (0.0-0.50); EOS % 1.5 % (0.0-3.0); HEMATOCRIT 39.5 % (36.0-47.0); HEMOGLOBIN 12.8 g/dl (12.0-15.5); IMMATURE GRANULOCYTE % 0.2 % (0-3.0); LYMPH # 1.3 10^3/uL (1.5-6.5); LYMPH % 31.5 % (24.0-44.0); MEAN CORPUSCULAR HEMOGLOBIN 31.4 pg (27.0-33.0); MEAN CORPUSCULAR HGB CONC 32.4 g/dl (32.0-36.5); MEAN CORPUSCULAR VOLUME 96.8 fl (80.0-96.0); MONO # 0.2 10^3/uL (0.0-0.8); MONO % 5.8 % (0.0-5.0); NEUTROPHILS # 2.5 10^3/uL (1.8-7.7); NEUTROPHILS % 60.5 % (36.0-66.0); PLATELET COUNT, AUTOMATED 133 10^3/uL (150-450); RED BLOOD COUNT 4.08 10^6/uL (4.00-5.40); RED CELL DISTRIBUTION WIDTH 12.9 % (11.5-14.5); WHITE BLOOD COUNT 4.1 10^3/uL (4.0-10.0)
[2018-02-13 22:55] LABS: CONTROL LINE HCG INT CTR LINE PRESENT; HCG, SERUM QUALITATIVE NEGATIVE (NEGATIVE)
[2018-02-13 23:02] LABS: ALBUMIN 3.7 GM/DL (3.2-5.2); ALKALINE PHOSPHATASE 58 U/L (45-117); ALT/SGPT 24 U/L (12-78); ANION GAP 6 MEQ/L (8-16); AST/SGOT 20 U/L (7-37); BILIRUBIN,DIRECT 0.1 MG/DL (0.0-0.2); BILIRUBIN,TOTAL 0.4 MG/DL (0.2-1.0); BLOOD UREA NITROGEN 12 MG/DL (7-18); CALCIUM LEVEL 8.7 MG/DL (8.5-10.1); CARBON DIOXIDE LEVEL 27 MEQ/L (21-32); CHLORIDE LEVEL 111 MEQ/L (98-107); CREATININE FOR GFR 0.74 MG/DL (0.55-1.30); GLOMERULAR FILTRATION RATE > 60.0 (>60); GLUCOSE, FASTING 88 MG/DL (70-100); LIPASE 126 U/L (73-393); POTASSIUM SERUM 3.8 MEQ/L (3.5-5.1); SODIUM LEVEL 144 MEQ/L (136-145); TOTAL PROTEIN 7.8 GM/DL (6.4-8.2)
[2018-02-14 00:44] LABS: KETONE, URINE AUTO RFX NEGATIVE (NEGATIVE); LEUKOCYTE ESTERASE UR AUTO RFX NEGATIVE (NEGATIVE); MUCUS, URINE RFX SMALL (NEGATIVE); NITRITE, URINE AUTO RFX NEGATIVE (NEGATIVE); RBC, URINE AUTO RFX 1 /HPF (0-3); SPECIFIC GRAVITY UR AUTO RFX 1.005 (1.002-1.035); SQUAM EPITHELIAL CELL UR AURFX 7 /HPF (0-6); WBC, URINE AUTO RFX 0 /HPF (0-3)
== END 2018-02-14 01:01 | disposition home or self-care (01) ==
LOC: M ED 02-14 01:01
DX: R10.11 Right upper quadrant pain (principal); Z88.5 Allergy status to narcotic agent; Z88.8 Allergy status to other drugs, medicaments and biological substances
CPT/HCPCS: 83690

== ENCOUNTER 2018-03-24 20:33 | Emergency (ER) | payer OTHER | END 2018-03-24 22:29 | disposition left against medical advice (07) | LOC: M ED 20:33 | DX: Z53.21 Procedure and treatment not carried out due to patient leaving prior to being seen by health care provider (principal) ==

== ENCOUNTER 2018-03-30 16:16 | Emergency (ER) | payer OTHER ==
[2018-03-30] MEDS: NS 1,000 ML IV (17:45)
[2018-03-30] MEDS: MORPHINE 4 MG/ML 1ML VIAL/SYRINGE (J2270) IV ×2 (18:09→21:25)
[2018-03-30] MEDS: ONDANSETRON 4MG/2ML VIAL (J2405) IV ×2 (18:09→21:24)
[2018-03-30 18:13] LABS: BASO % 0.6 % (0.0-1.0); EOS # 0.2 10^3/uL (0.0-0.50); EOS % 3.4 % (0.0-3.0); IMMATURE GRANULOCYTE % 0.2 % (0-3.0); LYMPH # 1.5 10^3/uL (1.5-6.5); LYMPH % 28.5 % (24.0-44.0); MEAN CORPUSCULAR HEMOGLOBIN 31.8 pg (27.0-33.0); MEAN CORPUSCULAR HGB CONC 32.4 g/dl (32.0-36.5); MEAN CORPUSCULAR VOLUME 98.1 fl (80.0-96.0); MONO # 0.3 10^3/uL (0.0-0.8); MONO % 5.9 % (0.0-5.0); NEUTROPHILS # 3.2 10^3/uL (1.8-7.7); NEUTROPHILS % 61.4 % (36.0-66.0); PLATELET COUNT, AUTOMATED 192 10^3/uL (150-450); RED BLOOD COUNT 3.77 10^6/uL (4.00-5.40); RED CELL DISTRIBUTION WIDTH 13.2 % (11.5-14.5); WHITE BLOOD COUNT 5.3 10^3/uL (4.0-10.0)
[2018-03-30 18:24] LABS: INR 1.06; PROTHROMBIN TIME 13.9 SECONDS (12.1-14.4)
[2018-03-30 18:25] LABS: PARTIAL THROMBOPLASTIN TIME 28.4 SECONDS (25.4-37.6)
[2018-03-30 18:51] LABS: ALBUMIN 3.9 GM/DL (3.2-5.2); ALBUMIN/GLOBULIN RATIO 1.15 (1.00-1.93); ALKALINE PHOSPHATASE 82 U/L (45-117); ALT/SGPT 27 U/L (12-78); ANION GAP 6 MEQ/L (8-16); AST/SGOT 24 U/L (7-37); BILIRUBIN,DIRECT 0.1 MG/DL (0.0-0.2); BILIRUBIN,TOTAL 0.5 MG/DL (0.2-1.0); BLOOD UREA NITROGEN 9 MG/DL (7-18); CALCIUM LEVEL 9.1 MG/DL (8.5-10.1); CARBON DIOXIDE LEVEL 28 MEQ/L (21-32); CHLORIDE LEVEL 109 MEQ/L (98-107); CREATININE FOR GFR 0.57 MG/DL (0.55-1.30); GLOMERULAR FILTRATION RATE > 60.0 (>60); GLUCOSE, FASTING 80 MG/DL (70-100); LIPASE 98 U/L (73-393); SODIUM LEVEL 143 MEQ/L (136-145); TOTAL PROTEIN 7.3 GM/DL (6.4-8.2)
[2018-03-30 18:53] LABS: LACTIC ACID SEPSIS PROTOCOL 0.7 MMOL/L (0.4-2.0)
[2018-03-30] MEDS ORDERED: ISOVUE-370 76% 100ML VIAL (Q9967) As Ordered (18:59)
[2018-03-30] MEDS: READI-CAT 2 PO ×2 (20:59→22:15)
[2018-03-30] MEDS ORDERED: GASTROGRAFIN SOLUTION 30ML PO (21:00)
== END 2018-03-31 00:22 | disposition home or self-care (01) ==
LOC: M ED 03-31 00:22
DX: G89.18 Other acute postprocedural pain (principal); R19.5 Other fecal abnormalities; Z90.49 Acquired absence of other specified parts of digestive tract; R42 Dizziness and giddiness; G43.909 Migraine, unspecified, not intractable, without status migrainosus; K50.90 Crohn's disease, unspecified, without complications; G71.11 Myotonic muscular dystrophy; Z88.6 Allergy status to analgesic agent; Z88.5 Allergy status to narcotic agent; Z88.8 Allergy status to other drugs, medicaments and biological substances
CPT/HCPCS: J2270

== ENCOUNTER 2018-04-01 03:28 | Emergency (ER) | payer OTHER ==
[2018-04-01 05:00] LABS: BASO % 0.4 % (0.0-1.0); EOS # 0.3 10^3/uL (0.0-0.50); EOS % 4.5 % (0.0-3.0); HEMATOCRIT 35.8 % (36.0-47.0); HEMOGLOBIN 11.5 g/dl (12.0-15.5); IMMATURE GRANULOCYTE % 0.2 % (0-3.0); LYMPH # 1.5 10^3/uL (1.5-6.5); LYMPH % 26.4 % (24.0-44.0); MEAN CORPUSCULAR HEMOGLOBIN 31.7 pg (27.0-33.0); MEAN CORPUSCULAR HGB CONC 32.1 g/dl (32.0-36.5); MEAN CORPUSCULAR VOLUME 98.6 fl (80.0-96.0); MONO # 0.4 10^3/uL (0.0-0.8); MONO % 6.5 % (0.0-5.0); NEUTROPHILS # 3.5 10^3/uL (1.8-7.7); PLATELET COUNT, AUTOMATED 172 10^3/uL (150-450); RED BLOOD COUNT 3.63 10^6/uL (4.00-5.40); RED CELL DISTRIBUTION WIDTH 13.2 % (11.5-14.5); WHITE BLOOD COUNT 5.6 10^3/uL (4.0-10.0)
[2018-04-01 05:02] LABS: CONTROL LINE HCG INT CTR LINE PRESENT; HCG, SERUM QUALITATIVE NEGATIVE (NEGATIVE)
[2018-04-01] MEDS: NS 1,000 ML IV (06:30)
[2018-04-01] MEDS: ONDANSETRON 4MG/2ML VIAL (J2405) IV (06:30)
[2018-04-01 06:57] LABS: ANION GAP 8 MEQ/L (8-16); BLOOD UREA NITROGEN 12 MG/DL (7-18); CARBON DIOXIDE LEVEL 25 MEQ/L (21-32); CHLORIDE LEVEL 110 MEQ/L (98-107); CREATININE FOR GFR 0.64 MG/DL (0.55-1.30); GLOMERULAR FILTRATION RATE > 60.0 (>60); GLUCOSE, FASTING 88 MG/DL (70-100); POTASSIUM SERUM 4.3 MEQ/L (3.5-5.1); SODIUM LEVEL 143 MEQ/L (136-145)
[2018-04-01 07:28] LABS: LACTIC ACID SEPSIS PROTOCOL 0.7 MMOL/L (0.4-2.0)
== END 2018-04-01 09:22 | disposition home or self-care (01) ==
LOC: M ED 03:28
DX: G89.18 Other acute postprocedural pain (principal); R10.9 Unspecified abdominal pain; R19.7 Diarrhea, unspecified; K92.1 Melena; Z79.899 Other long term (current) drug therapy; Z88.5 Allergy status to narcotic agent; Z88.8 Allergy status to other drugs, medicaments and biological substances
CPT/HCPCS: J2405

== ENCOUNTER → 2018-04-05 | Outpatient (REF) | payer OTHER | LOC: M LAB REF 15:09 | DX: R19.7 Diarrhea, unspecified (principal) | CPT/HCPCS: 87507 ==

== ENCOUNTER 2018-04-28 02:27 | Emergency (ER) | payer OTHER ==
[2018-04-28] MEDS: NS 1,000 ML IV (06:56)
[2018-04-28] MEDS: ONDANSETRON 4MG/2ML VIAL (J2405) IV (06:56)
[2018-04-28 07:51] LABS: ANION GAP 6 MEQ/L (8-16); BLOOD UREA NITROGEN 11 MG/DL (7-18); CALCIUM LEVEL 8.9 MG/DL (8.5-10.1); CARBON DIOXIDE LEVEL 29 MEQ/L (21-32); CHLORIDE LEVEL 108 MEQ/L (98-107); CREATININE FOR GFR 0.79 MG/DL (0.55-1.30); GLOMERULAR FILTRATION RATE > 60.0 (>60); GLUCOSE, FASTING 79 MG/DL (70-100); POTASSIUM SERUM 3.7 MEQ/L (3.5-5.1); SODIUM LEVEL 143 MEQ/L (136-145)
== END 2018-04-28 08:36 | disposition home or self-care (01) ==
LOC: M ED 02:27
DX: R11.2 Nausea with vomiting, unspecified (principal); R42 Dizziness and giddiness; I44.7 Left bundle-branch block, unspecified; Z86.718 Personal history of other venous thrombosis and embolism; Z87.19 Personal history of other diseases of the digestive system; Z88.5 Allergy status to narcotic agent; Z88.8 Allergy status to other drugs, medicaments and biological substances
CPT/HCPCS: J2405

== ENCOUNTER 2018-05-17 02:49 | Emergency (ER) | payer OTHER ==
[2018-05-17] MEDS: NS 1,000 ML IV (03:45)
[2018-05-17 04:08] LABS: BASO % 0.2 % (0.0-1.0); EOS # 0.1 10^3/uL (0.0-0.50); EOS % 1.9 % (0.0-3.0); HEMATOCRIT 42.9 % (36.0-47.0); HEMOGLOBIN 13.6 g/dl (12.0-15.5); IMMATURE GRANULOCYTE % 0.2 % (0-3.0); LYMPH # 1.3 10^3/uL (1.5-6.5); LYMPH % 28.8 % (24.0-44.0); MEAN CORPUSCULAR HEMOGLOBIN 30.9 pg (27.0-33.0); MEAN CORPUSCULAR HGB CONC 31.7 g/dl (32.0-36.5); MEAN CORPUSCULAR VOLUME 97.5 fl (80.0-96.0); MONO # 0.3 10^3/uL (0.0-0.8); MONO % 6.2 % (0.0-5.0); NEUTROPHILS # 2.9 10^3/uL (1.8-7.7); NEUTROPHILS % 62.7 % (36.0-66.0); PLATELET COUNT, AUTOMATED 177 10^3/uL (150-450); RED CELL DISTRIBUTION WIDTH 12.9 % (11.5-14.5); WHITE BLOOD COUNT 4.7 10^3/uL (4.0-10.0)
[2018-05-17 04:24] LABS: CONTROL LINE HCG INT CTR LINE PRESENT; HCG, SERUM QUALITATIVE NEGATIVE (NEGATIVE)
[2018-05-17 04:41] LABS: ALBUMIN 4.4 GM/DL (3.2-5.2); ALKALINE PHOSPHATASE 97 U/L (45-117); ALT/SGPT 34 U/L (12-78); ANION GAP 6 MEQ/L (8-16); AST/SGOT 31 U/L (7-37); BILIRUBIN,DIRECT 0.1 MG/DL (0.0-0.2); BILIRUBIN,TOTAL 0.3 MG/DL (0.2-1.0); BLOOD UREA NITROGEN 13 MG/DL (7-18); CALCIUM LEVEL 9.1 MG/DL (8.5-10.1); CARBON DIOXIDE LEVEL 28 MEQ/L (21-32); CHLORIDE LEVEL 110 MEQ/L (98-107); CREATININE FOR GFR 0.82 MG/DL (0.55-1.30); GLOMERULAR FILTRATION RATE > 60.0 (>60); GLUCOSE, FASTING 71 MG/DL (70-100); LIPASE 151 U/L (73-393); POTASSIUM SERUM 4.3 MEQ/L (3.5-5.1); SODIUM LEVEL 144 MEQ/L (136-145); TOTAL PROTEIN 8.4 GM/DL (6.4-8.2)
[2018-05-17] MEDS: NS 500 ML IV (05:00)
[2018-05-17 05:23] LABS: APPEARANCE, URINE CLEAR (CLEAR); BACTERIA, URINE AUTO 2+ (NEGATIVE); BILIRUBIN, URINE AUTO NEGATIVE (NEGATIVE); BLOOD, URINE BLOOD NEGATIVE (NEGATIVE); COLOR, URINE YELLOW (YELLOW); GLUCOSE, URINE (UA) AUTO NEGATIVE (NEGATIVE); KETONE, URINE AUTO NEGATIVE (NEGATIVE); LEUKOCYTE ESTERASE, URINE AUTO NEGATIVE (NEGATIVE); NITRITE, URINE AUTO POSITIVE (NEGATIVE); PROTEIN, URINE AUTO NEGATIVE (NEGATIVE); RBC, URINE AUTO 0 /HPF (0-3); SPECIFIC GRAVITY URINE AUTO 1.006 (1.002-1.035); SQUAMOUS EPITHELIAL CELL UR AU 2 /HPF (0-6); UROBILINOGEN, URINE AUTO 0.2 mg/dL (0.0-2.0); WBC, URINE AUTO 1 /HPF (0-3)
== END 2018-05-17 05:37 | disposition home or self-care (01) ==
LOC: M ED 02:49
DX: R11.10 Vomiting, unspecified (principal); I44.7 Left bundle-branch block, unspecified; I44.0 Atrioventricular block, first degree; D64.9 Anemia, unspecified; G43.909 Migraine, unspecified, not intractable, without status migrainosus; G71.11 Myotonic muscular dystrophy; I51.7 Cardiomegaly; Z79.899 Other long term (current) drug therapy; Z88.6 Allergy status to analgesic agent; Z88.8 Allergy status to other drugs, medicaments and biological substances; Z88.5 Allergy status to narcotic agent
CPT/HCPCS: 93005

== ENCOUNTER 2018-06-25 01:05 | Emergency (ER) | payer OTHER ==
[2018-06-25] MEDS ORDERED: AZITHROMYCIN 200MG/5ML *ED ONLY* ORAL SYRINGE PO (02:00)
[2018-06-25] MEDS ORDERED: ERYTHROMYCIN OPHTH OINT OU (02:00)
[2018-06-25 02:15] LABS: BASO % 0.6 % (0.0-1.0); EOS # 0.1 10^3/uL (0.0-0.50); EOS % 1.4 % (0.0-3.0); HEMATOCRIT 40.1 % (36.0-47.0); HEMOGLOBIN 12.9 g/dl (12.0-15.5); LYMPH # 1.4 10^3/uL (1.5-6.5); LYMPH % 27.1 % (24.0-44.0); MEAN CORPUSCULAR HEMOGLOBIN 31.2 pg (27.0-33.0); MEAN CORPUSCULAR HGB CONC 32.2 g/dl (32.0-36.5); MEAN CORPUSCULAR VOLUME 97.1 fl (80.0-96.0); MONO # 0.4 10^3/uL (0.0-0.8); MONO % 7.8 % (0.0-5.0); NEUTROPHILS # 3.3 10^3/uL (1.8-7.7); NEUTROPHILS % 63.1 % (36.0-66.0); PLATELET COUNT, AUTOMATED 163 10^3/uL (150-450); RED BLOOD COUNT 4.13 10^6/uL (4.00-5.40); RED CELL DISTRIBUTION WIDTH 13.2 % (11.5-14.5); WHITE BLOOD COUNT 5.2 10^3/uL (4.0-10.0)
[2018-06-25 02:35] LABS: ALBUMIN 3.7 GM/DL (3.2-5.2); ALKALINE PHOSPHATASE 116 U/L (45-117); ALT/SGPT 59 U/L (12-78); ANION GAP 8 MEQ/L (8-16); AST/SGOT 62 U/L (7-37); BILIRUBIN,DIRECT < 0.1 MG/DL (0.0-0.2); BILIRUBIN,TOTAL 0.4 MG/DL (0.2-1.0); BLOOD UREA NITROGEN 17 MG/DL (7-18); CALCIUM LEVEL 8.5 MG/DL (8.5-10.1); CARBON DIOXIDE LEVEL 27 MEQ/L (21-32); CHLORIDE LEVEL 109 MEQ/L (98-107); CREATININE FOR GFR 0.69 MG/DL (0.55-1.30); GLOMERULAR FILTRATION RATE > 60.0 (>60); GLUCOSE, FASTING 53 MG/DL (70-100); LIPASE 100 U/L (73-393); POTASSIUM SERUM 3.7 MEQ/L (3.5-5.1); SODIUM LEVEL 144 MEQ/L (136-145); TOTAL PROTEIN 7.4 GM/DL (6.4-8.2)
[2018-06-25] MEDS ORDERED: ONDANSETRON 4MG/2ML VIAL (J2405) As Ordered (03:23)
[2018-06-25] MEDS: ONDANSETRON 4MG/2ML VIAL (J2405) IV (03:35)
[2018-06-25] MEDS: D5W 500 ML IV (03:35)
[2018-06-25 04:27] LABS: APPEARANCE, URINE CLEAR (CLEAR); BACTERIA, URINE AUTO 3+ (NEGATIVE); BILIRUBIN, URINE AUTO NEGATIVE (NEGATIVE); BLOOD, URINE BLOOD NEGATIVE (NEGATIVE); COLOR, URINE STRAW (YELLOW); GLUCOSE, URINE (UA) AUTO NEGATIVE (NEGATIVE); KETONE, URINE AUTO NEGATIVE (NEGATIVE); LEUKOCYTE ESTERASE, URINE AUTO NEGATIVE (NEGATIVE); MUCUS, URINE SMALL (NEGATIVE); NITRITE, URINE AUTO NEGATIVE (NEGATIVE); PROTEIN, URINE AUTO NEGATIVE (NEGATIVE); RBC, URINE AUTO 1 /HPF (0-3); SPECIFIC GRAVITY URINE AUTO 1.002 (1.002-1.035); SQUAMOUS EPITHELIAL CELL UR AU 3 /HPF (0-6); UROBILINOGEN, URINE AUTO 0.2 mg/dL (0.0-2.0); WBC, URINE AUTO 1 /HPF (0-3)
[2018-06-25 04:47] LABS: BEDSIDE GLUCOSE 100 MG/DL (70-105)
== END 2018-06-25 04:55 | disposition home or self-care (01) ==
LOC: M ED 04:55
DX: R10.84 Generalized abdominal pain (principal); G89.29 Other chronic pain; E16.2 Hypoglycemia, unspecified
CPT/HCPCS: J2405

== ENCOUNTER 2018-07-16 17:28 | Emergency (ER) | payer OTHER ==
[~2018-07-16] VITALS: Ht 175.3 cm; Wt 81.8 kg
[~2018-07-16 17:28] MED LIST changes: +BACT800T5 PO; +BENA25CA4 PO; +CIPR-249 PO; +EQ O20TA4 PO; +IBUP1TAB6 PO; +IRON18TA2 PO; +MACR100C43 PO; +MAXI0.1O; +MECL-68; +NORCOTAB PO; +PROM25TA PO; +PROT1TAB2 PO; +VITA100067 PO; +ZOFR4TAB14 PO
[2018-07-16 19:43] LABS: APPEARANCE, URINE CLEAR (CLEAR); BACTERIA, URINE AUTO 1+ (NEGATIVE); BILIRUBIN, URINE AUTO NEGATIVE (NEGATIVE); BLOOD, URINE BLOOD NEGATIVE (NEGATIVE); COLOR, URINE STRAW (YELLOW); GLUCOSE, URINE (UA) AUTO NEGATIVE (NEGATIVE); KETONE, URINE AUTO NEGATIVE (NEGATIVE); LEUKOCYTE ESTERASE, URINE AUTO NEGATIVE (NEGATIVE); NITRITE, URINE AUTO NEGATIVE (NEGATIVE); PROTEIN, URINE AUTO NEGATIVE (NEGATIVE); RBC, URINE AUTO 1 /HPF (0-3); SPECIFIC GRAVITY URINE AUTO 1.002 (1.002-1.035); SQUAMOUS EPITHELIAL CELL UR AU 3 /HPF (0-6); UROBILINOGEN, URINE AUTO 0.2 mg/dL (0.0-2.0); WBC, URINE AUTO 1 /HPF (0-3)
[2018-07-16] MEDS ORDERED: KETOROLAC 60 MG/2 ML VIAL (J1885) IM ONE (20:00)
[2018-07-16] MEDS ORDERED: ONDANSETRON 4 MG ORAL DISINTEGRATING TAB (Q0162 PER 1MG) PO ONE (20:00)
[2018-07-16 20:26] LABS: HEMATOCRIT 41.1 % (36.0-47.0); HEMOGLOBIN 13.3 g/dl (12.0-15.5); MEAN CORPUSCULAR HEMOGLOBIN 30.9 pg (27.0-33.0); MEAN CORPUSCULAR HGB CONC 32.4 g/dl (32.0-36.5); MEAN CORPUSCULAR VOLUME 95.6 fl (80.0-96.0); PLATELET COUNT, AUTOMATED 177 10^3/uL (150-450); WHITE BLOOD COUNT 5.9 10^3/uL (4.0-10.0)
[2018-07-16 20:37] LABS: ALT/SGPT 39 U/L (12-78); BILIRUBIN,DIRECT 0.1 MG/DL (0.0-0.2); BILIRUBIN,TOTAL 0.5 MG/DL (0.2-1.0); BLOOD UREA NITROGEN 12 MG/DL (7-18); CALCIUM LEVEL 9.5 MG/DL (8.5-10.1); CARBON DIOXIDE LEVEL 29 MEQ/L (21-32); CHLORIDE LEVEL 108 MEQ/L (98-107); CREATININE FOR GFR 0.76 MG/DL (0.55-1.30); GLOMERULAR FILTRATION RATE > 60.0 (>60); GLUCOSE, FASTING 85 MG/DL (70-100); LIPASE 116 U/L (73-393); POTASSIUM SERUM 4.3 MEQ/L (3.5-5.1); SODIUM LEVEL 141 MEQ/L (136-145); TOTAL PROTEIN 7.7 GM/DL (6.4-8.2)
--- NOTE | 2018-07-16 21:08 | REPVR ---
EXAM: US Retroperitoneal Limited, Kidneys EXAM DATE/TIME: 07/16/2018 8:23 PM CLINICAL HISTORY: 27 years old, female; Pain; Abdominal pain; Flank; Right; Additional info: Right flank pain TECHNIQUE: Real-time ultrasound of the retroperitoneum with image documentation. Examination was focused on the kidneys. COMPARISON: Abdomen, limited US 10/13/2016 7:48 AM FINDINGS: Right kidney: The right kidney is normal in size, shape and echotexture. It measures 10.9 cm in length. No right renal stone, focal renal lesion or hydronephrosis is identified. Left kidney: Evaluation of the left kidney lower pole is suboptimal secondary to gas. The left kidney is normal in size, shape and echotexture. It measures 11.2 cm in length. No left renal stone, focal renal lesion or hydronephrosis is identified. IMPRESSION: No acute abnormality. Electronically signed by: Anjel Espinoza On 07/16/2018 21:07:49 PM
[2018-07-16] MEDS ORDERED: ZOFR4TAB14 PO (21:11)
[2018-07-16 21:25] VITALS: BP 114/63
== END 2018-07-16 21:30 | disposition home or self-care (01) ==
LOC: M ED 17:28
DX: M54.6 Pain in thoracic spine (principal); D64.9 Anemia, unspecified; Z88.5 Allergy status to narcotic agent; Z88.8 Allergy status to other drugs, medicaments and biological substances
CPT/HCPCS: 36415; 76775; 80048; 80076; 81001; 83690; 85027; 99283; Q0162

== ENCOUNTER 2018-08-26 23:54 | Emergency (ER) | payer OTHER ==
[~2018-08-26] VITALS: Ht 177.8 cm; Wt 85.9 kg
[~2018-08-26 23:54] MED LIST changes: -PROM25TA PO; +PROM25TA12 PO
[2018-08-27 07:40] LABS: BASO % 0.4 % (0.0-1.0); EOS # 0.1 10^3/uL (0.0-0.50); EOS % 1.4 % (0.0-3.0); HEMATOCRIT 41.7 % (36.0-47.0); HEMOGLOBIN 13.6 g/dl (12.0-15.5); LYMPH # 1.4 10^3/uL (1.5-6.5); LYMPH % 27.5 % (24.0-44.0); MEAN CORPUSCULAR HEMOGLOBIN 30.8 pg (27.0-33.0); MEAN CORPUSCULAR HGB CONC 32.6 g/dl (32.0-36.5); MEAN CORPUSCULAR VOLUME 94.6 fl (80.0-96.0); MONO # 0.3 10^3/uL (0.0-0.8); MONO % 6.7 % (0.0-5.0); NEUTROPHILS # 3.2 10^3/uL (1.8-7.7); PLATELET COUNT, AUTOMATED 150 10^3/uL (150-450); RED BLOOD COUNT 4.41 10^6/uL (4.00-5.40); WHITE BLOOD COUNT 5.1 10^3/uL (4.0-10.0)
[2018-08-27 08:09] LABS: ALT/SGPT 33 U/L (12-78); AMYLASE 39 U/L (25-115); BILIRUBIN,DIRECT 0.2 MG/DL (0.0-0.2); BILIRUBIN,TOTAL 0.7 MG/DL (0.2-1.0); BLOOD UREA NITROGEN 11 MG/DL (7-18); CALCIUM LEVEL 8.7 MG/DL (8.5-10.1); CARBON DIOXIDE LEVEL 23 MEQ/L (21-32); CHLORIDE LEVEL 108 MEQ/L (98-107); CREATININE FOR GFR 0.62 MG/DL (0.55-1.30); GLOMERULAR FILTRATION RATE > 60.0 (>60); GLUCOSE, FASTING 84 MG/DL (70-100); LIPASE 97 U/L (73-393); NT-PRO BNP 80 PG/ML (<125); POTASSIUM SERUM 3.8 MEQ/L (3.5-5.1); SODIUM LEVEL 140 MEQ/L (136-145); TOTAL PROTEIN 7.4 GM/DL (6.4-8.2)
--- NOTE | 2018-08-27 08:44 | REP ---
Chest x-ray: Two views. History: Cough, shortness of breath. . Comparison study: September 26, 2017 . Findings: The lungs are well inflated and free of infiltrate. The pleural angles are sharp. The heart size is normal. Pulmonary vasculature is not increased. No significant bony abnormality is seen. Impression: Negative chest x-ray. Electronically Signed by Sergio Hurst MD 08/27/2018 08:36 A
[2018-08-27] MEDS ORDERED: VENTAER INH (09:19)
[2018-08-27] MEDS ORDERED: BENZ200C70 PO (09:19)
[2018-08-27] MEDS ORDERED: PROT1TAB2 PO (09:19)
[2018-08-27 09:34] VITALS: BP 100/55
== END 2018-08-27 09:47 | disposition home or self-care (01) ==
LOC: M ED 23:54
DX: K29.70 Gastritis, unspecified, without bleeding (principal); J98.01 Acute bronchospasm; Z88.8 Allergy status to other drugs, medicaments and biological substances; Z88.5 Allergy status to narcotic agent

== ENCOUNTER 2018-10-12 23:47 | Emergency (ER) | payer OTHER ==
[~2018-10-12] VITALS: Ht 175.3 cm; Wt 95.5 kg
[~2018-10-12 23:47] MED LIST changes: +BENZ200C70 PO; -DOCU10ELUD PO; +DOCU5LIQ PO; +HYDR-3715 PO; -NORC1TAB4 PO; +NORC1TAB7 PO; -NORCOTAB PO; +VENTAER INH
[2018-10-12] MEDS ORDERED: AMIT10TA PO (23:56)
[2018-10-13] MEDS ORDERED: NS 1,000 ML IV ONE (00:45)
[2018-10-13 00:55] LABS: BASO % 0.4 % (0.0-1.0); EOS # 0.1 10^3/uL (0.0-0.50); EOS % 1.5 % (0.0-3.0); HEMATOCRIT 39.5 % (36.0-47.0); HEMOGLOBIN 12.7 g/dl (12.0-15.5); LYMPH # 1.1 10^3/uL (1.5-6.5); LYMPH % 21.3 % (24.0-44.0); MEAN CORPUSCULAR HEMOGLOBIN 32.2 pg (27.0-33.0); MEAN CORPUSCULAR HGB CONC 32.2 g/dl (32.0-36.5); MONO # 0.5 10^3/uL (0.0-0.8); MONO % 9.1 % (0.0-5.0); NEUTROPHILS # 3.6 10^3/uL (1.8-7.7); NEUTROPHILS % 67.3 % (36.0-66.0); PLATELET COUNT, AUTOMATED 143 10^3/uL (150-450); RED BLOOD COUNT 3.95 10^6/uL (4.00-5.40); WHITE BLOOD COUNT 5.3 10^3/uL (4.0-10.0)
[2018-10-13 01:23] LABS: ALBUMIN 3.8 GM/DL (3.2-5.2); ALT/SGPT 110 U/L (12-78); BILIRUBIN,DIRECT < 0.1 MG/DL (0.0-0.2); BILIRUBIN,TOTAL 0.4 MG/DL (0.2-1.0); BLOOD UREA NITROGEN 15 MG/DL (7-18); CALCIUM LEVEL 8.5 MG/DL (8.5-10.1); CARBON DIOXIDE LEVEL 28 MEQ/L (21-32); CHLORIDE LEVEL 111 MEQ/L (98-107); CREATININE FOR GFR 0.69 MG/DL (0.55-1.30); GLOMERULAR FILTRATION RATE > 60.0 (>60); GLUCOSE, FASTING 73 MG/DL (70-100); LIPASE 154 U/L (73-393); POTASSIUM SERUM 3.7 MEQ/L (3.5-5.1); SODIUM LEVEL 144 MEQ/L (136-145); TOTAL PROTEIN 7.4 GM/DL (6.4-8.2)
[2018-10-13] MEDS ORDERED: ONDANSETRON 4MG/2ML VIAL (J2405) IV ONE (04:00)
[2018-10-13] MEDS ORDERED: ACETAMINOPHEN 325 MG TAB As Ordered ONE (04:02)
[2018-10-13] MEDS ORDERED: ACETAMINOPHEN TAB 650MG DOSE (2X325MG) PO ONE (04:15)
[2018-10-13 05:30] VITALS: BP 104/57
== END 2018-10-13 06:19 | disposition home or self-care (01) ==
LOC: M ED 23:47
DX: R11.2 Nausea with vomiting, unspecified (principal); Z79.51 Long term (current) use of inhaled steroids; Z79.899 Other long term (current) drug therapy; Z88.6 Allergy status to analgesic agent; Z88.5 Allergy status to narcotic agent; Z88.8 Allergy status to other drugs, medicaments and biological substances
CPT/HCPCS: 80048; 80076; 83690; 85025; 96374; 99284; J2405

== ENCOUNTER → 2018-11-16 | Outpatient (REF) | payer OTHER ==
[~2018-11-16] MED LIST changes: +AMIT10TA PO; +MECL1CHW PO
[2018-11-16 20:05] LABS: APPEARANCE, URINE CLEAR (CLEAR); BACTERIA, URINE AUTO 1+ (NEGATIVE); BILIRUBIN, URINE AUTO NEGATIVE (NEGATIVE); BLOOD, URINE BLOOD NEGATIVE (NEGATIVE); COLOR, URINE YELLOW (YELLOW); GLUCOSE, URINE (UA) AUTO NEGATIVE (NEGATIVE); KETONE, URINE AUTO NEGATIVE (NEGATIVE); LEUKOCYTE ESTERASE, URINE AUTO NEGATIVE (NEGATIVE); MUCUS, URINE SMALL (NEGATIVE); NITRITE, URINE AUTO NEGATIVE (NEGATIVE); PROTEIN, URINE AUTO NEGATIVE (NEGATIVE); RBC, URINE AUTO 1 /HPF (0-3); SPECIFIC GRAVITY URINE AUTO 1.002 (1.002-1.035); SQUAMOUS EPITHELIAL CELL UR AU 3 /HPF (0-6); UROBILINOGEN, URINE AUTO 0.2 mg/dL (0.0-2.0); WBC, URINE AUTO 2 /HPF (0-3)
== END ==
LOC: M SMT 17:24
PROVIDERS: ATTEND Nurse Practitioner Women's Health
DX: R31.0 Gross hematuria (principal)

== ENCOUNTER 2018-11-18 20:54 | Emergency (ER) | payer OTHER ==
[~2018-11-18] VITALS: Ht 175.3 cm; Wt 90.9 kg
[~2018-11-18 20:54] MED LIST changes: -MECL1CHW PO
--- NOTE | 2018-11-18 22:27 | ECGEPIP ---
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
[2018-11-18 22:53] LABS: BASO % 0.4 % (0.0-1.0); EOS # 0.1 10^3/uL (0.0-0.50); EOS % 1.8 % (0.0-3.0); HEMATOCRIT 41.9 % (36.0-47.0); HEMOGLOBIN 13.6 g/dl (12.0-15.5); LYMPH # 1.5 10^3/uL (1.5-6.5); LYMPH % 34.1 % (24.0-44.0); MEAN CORPUSCULAR HEMOGLOBIN 31.7 pg (27.0-33.0); MEAN CORPUSCULAR HGB CONC 32.5 g/dl (32.0-36.5); MEAN CORPUSCULAR VOLUME 97.7 fl (80.0-96.0); MONO # 0.3 10^3/uL (0.0-0.8); MONO % 6.2 % (0.0-5.0); NEUTROPHILS # 2.6 10^3/uL (1.8-7.7); NEUTROPHILS % 57.3 % (36.0-66.0); PLATELET COUNT, AUTOMATED 168 10^3/uL (150-450); RED BLOOD COUNT 4.29 10^6/uL (4.00-5.40); WHITE BLOOD COUNT 4.5 10^3/uL (4.0-10.0)
[2018-11-18 23:22] LABS: HCG, SERUM QUALITATIVE NEGATIVE (NEGATIVE)
[2018-11-18 23:36] LABS: BLOOD UREA NITROGEN 17 MG/DL (7-18); CALCIUM LEVEL 9.1 MG/DL (8.5-10.1); CARBON DIOXIDE LEVEL 31 MEQ/L (21-32); CHLORIDE LEVEL 109 MEQ/L (98-107); CPK CREATINE PHOSPHOKINASE 219 U/L (26-192); CREATININE FOR GFR 0.81 MG/DL (0.55-1.30); ETHYL ALCOHOL (ETHANOL) 0.003 % (0.000-0.010); FREE T4 0.91 NG/DL (0.76-1.46); GLOMERULAR FILTRATION RATE > 60.0 (>60); GLUCOSE, FASTING 87 MG/DL (70-100); MB/CK RELATIVE INDEX 1.64 (< OR =4); SODIUM LEVEL 142 MEQ/L (136-145); TROPONIN I < 0.02 NG/ML (< 0.10)
--- NOTE | 2018-11-19 00:14 | REPVR ---
EXAM: CT Head Without Contrast EXAM DATE/TIME: 11/18/2018 9:52 PM CLINICAL HISTORY: 28 years old, female; Signs and symptoms; Dizziness; Additional info: Syncope TECHNIQUE: Imaging protocol: Axial computed tomography images of the head/brain without contrast. Radiation optimization: All CT scans at this facility use at least one of these dose optimization techniques: automated exposure control; mA and/or kV adjustment per patient size (includes targeted exams where dose is matched to clinical indication); or iterative reconstruction. COMPARISON: CT Head without contrast 04/28/2018 6:35 AM FINDINGS: Brain: Normal. No hemorrhage. No significant white matter disease. No edema. Ventricles: Normal. No ventriculomegaly. Bones/joints: Unremarkable. No acute fracture. Sinuses: Visualized sinuses are unremarkable. No acute sinusitis. Mastoid air cells: Visualized mastoid air cells are unremarkable. No mastoid effusion. Soft tissues: Unremarkable. IMPRESSION: Negative noncontrast head CT which is unchanged from 04/28/2018. Electronically signed by: Willis Diaz On 11/19/2018 00:14:27 AM
[2018-11-19 00:30] VITALS: BP 108/56
== END 2018-11-19 00:34 | disposition home or self-care (01) ==
LOC: M ED 20:54
DX: R53.81 Other malaise (principal); R53.83 Other fatigue; I44.7 Left bundle-branch block, unspecified; Z88.5 Allergy status to narcotic agent; Z88.8 Allergy status to other drugs, medicaments and biological substances
CPT/HCPCS: 36415; 70450; 80048; 82550; 82553; 84439; 84443; 84703; 85025; 93005; 93041; 99284; G0480

== ENCOUNTER 2018-11-22 11:32 | Emergency (ER) | payer OTHER ==
[~2018-11-22] VITALS: Ht 175.3 cm; Wt 104.5 kg
[2018-11-22] MEDS ORDERED: BENA25CA4 PO (11:53)
[2018-11-22] MEDS ORDERED: NS 1,000 ML IV ONE ×2 (12:15→16:15)
[2018-11-22] MEDS ORDERED: MECLIZINE 25 MG TABLET PO ONE ×2 (12:15→16:15)
[2018-11-22] MEDS ORDERED: ONDANSETRON 4MG/2ML VIAL (J2405) IV ONE (12:15)
[2018-11-22] MEDS ORDERED: ACETAMINOPHEN 500 MG TAB PO ONE (12:15)
[2018-11-22 14:05] LABS: BASO % 0.7 % (0.0-1.0); EOS % 0.9 % (0.0-3.0); HEMATOCRIT 39.9 % (36.0-47.0); LYMPH # 1.1 10^3/uL (1.5-6.5); LYMPH % 25.5 % (24.0-44.0); MEAN CORPUSCULAR HEMOGLOBIN 31.8 pg (27.0-33.0); MEAN CORPUSCULAR HGB CONC 32.6 g/dl (32.0-36.5); MEAN CORPUSCULAR VOLUME 97.6 fl (80.0-96.0); MONO # 0.3 10^3/uL (0.0-0.8); MONO % 6.3 % (0.0-5.0); NEUTROPHILS # 2.8 10^3/uL (1.8-7.7); NEUTROPHILS % 66.4 % (36.0-66.0); PLATELET COUNT, AUTOMATED 151 10^3/uL (150-450); RED BLOOD COUNT 4.09 10^6/uL (4.00-5.40); WHITE BLOOD COUNT 4.3 10^3/uL (4.0-10.0)
[2018-11-22 14:16] LABS: INR 0.96; PROTHROMBIN TIME 12.9 SECONDS (12.1-14.4)
[2018-11-22 14:17] LABS: PARTIAL THROMBOPLASTIN TIME 29.1 SECONDS (25.4-37.6)
[2018-11-22 14:34] LABS: ALBUMIN 3.9 GM/DL (3.2-5.2); ALT/SGPT 36 U/L (12-78); BILIRUBIN,DIRECT < 0.1 MG/DL (0.0-0.2); BILIRUBIN,TOTAL 0.3 MG/DL (0.2-1.0); BLOOD UREA NITROGEN 15 MG/DL (7-18); C REACTIVE PROTEIN QUANTITATIV < 0.30 MG/DL (0.00-0.30); CALCIUM LEVEL 8.9 MG/DL (8.5-10.1); CARBON DIOXIDE LEVEL 28 MEQ/L (21-32); CHLORIDE LEVEL 111 MEQ/L (98-107); CPK CREATINE PHOSPHOKINASE 243 U/L (26-192); CREATININE FOR GFR 0.67 MG/DL (0.55-1.30); GLOMERULAR FILTRATION RATE > 60.0 (>60); GLUCOSE, FASTING 90 MG/DL (70-100); MB/CK RELATIVE INDEX 1.52 (< OR =4); POTASSIUM SERUM 3.8 MEQ/L (3.5-5.1); SODIUM LEVEL 142 MEQ/L (136-145); TOTAL PROTEIN 7.2 GM/DL (6.4-8.2); TROPONIN I < 0.02 NG/ML (< 0.10)
[2018-11-22 14:48] LABS: ERYTHROCYTE SEDIMENTATION RATE 19 mm/hr (0-20)
[2018-11-22 18:46] VITALS: BP 111/66
[2018-11-22] MEDS ORDERED: MECL1CHW PO (19:27)
--- NOTE | 2018-11-22 22:09 | ECGEPIP ---
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
== END 2018-11-22 19:57 | disposition home or self-care (01) ==
LOC: EDBD 11:32 → M ED 11:32
DX: R42 Dizziness and giddiness (principal); G71.11 Myotonic muscular dystrophy; R56.9 Unspecified convulsions; R51 Headache; Z91.81 History of falling; Z79.899 Other long term (current) drug therapy; Z88.8 Allergy status to other drugs, medicaments and biological substances; Z88.5 Allergy status to narcotic agent; Z88.6 Allergy status to analgesic agent
CPT/HCPCS: 80048; 80076; 82550; 82553; 85025; 85610; 85652; 85730; 86140; 86850; 86900; 86901; 93005; 96361; 96374; 99285; J2405

== ENCOUNTER → 2018-11-26 | Outpatient (CLI) | payer OTHER ==
[~2018-11-26] MED LIST changes: +ISOVUE-370 76% 100ML VIAL (Q9967) As Ordered ONE; +MECL1CHW PO
--- NOTE | 2018-11-26 20:06 | REP ---
CT abdomen and pelvis without IV or oral contrast: History: Gross hematuria. There is a history of colon carcinoma. Prior colon resection. Comparison CT study: March 30, 2018. Findings: Preliminary digital real time operator radiograph demonstrates an unremarkable bowel gas pattern. There are clips in the right upper quadrant. The lung bases are clear on axial CT images. There are clips in the gallbladder fossa. Granulomatous calcifications are seen in the spleen. There are one or two accessory splenules. No adrenal lesion is seen. No focal hepatic or splenic lesion is seen. Pancreas is unremarkable. There is no upper abdominal lymphadenopathy. The kidneys appear morphologically intact. No kidney stone is seen. No hydronephrosis or mass is observed. No retroperitoneal mass or adenopathy is seen. Partial right colectomy and anastomosis are seen in the right lower abdomen. The uterus is surgically absent. Urinary bladder is unremarkable. No bladder calculus is seen. No abdominal wall defect is observed. No bony destructive lesion is seen. Impression: Status post cholecystectomy, right hemicolectomy and hysterectomy. No urinary tract calculus is seen. Otherwise negative CT study abdomen and pelvis. Electronically Signed by Sergio Hurst MD 11/26/2018 08:33 P
== END ==
LOC: M RAD 16:07
PROVIDERS: ATTEND Nurse Practitioner Women's Health
DX: R31.0 Gross hematuria (principal); Z90.79 Acquired absence of other genital organ(s); Z90.49 Acquired absence of other specified parts of digestive tract

== ENCOUNTER → 2018-12-23 | Outpatient (REF) | payer OTHER ==
[~2018-12-23] MED LIST changes: -ISOVUE-370 76% 100ML VIAL (Q9967) As Ordered ONE
[2018-12-23 19:23] LABS: BASO % 0.5 % (0.0-1.0); EOS # 0.1 10^3/uL (0.0-0.50); EOS % 1.8 % (0.0-3.0); HEMATOCRIT 42.6 % (36.0-47.0); HEMOGLOBIN 13.5 g/dl (12.0-15.5); LYMPH # 1.9 10^3/uL (1.5-6.5); LYMPH % 44.2 % (24.0-44.0); MEAN CORPUSCULAR HEMOGLOBIN 32.1 pg (27.0-33.0); MEAN CORPUSCULAR HGB CONC 31.7 g/dl (32.0-36.5); MEAN CORPUSCULAR VOLUME 101.2 fl (80.0-96.0); MONO # 0.3 10^3/uL (0.0-0.8); MONO % 6.9 % (0.0-5.0); NEUTROPHILS % 46.4 % (36.0-66.0); PLATELET COUNT, AUTOMATED 170 10^3/uL (150-450); RED BLOOD COUNT 4.21 10^6/uL (4.00-5.40); WHITE BLOOD COUNT 4.4 10^3/uL (4.0-10.0)
[2018-12-23 19:34] LABS: ALBUMIN 3.8 GM/DL (3.2-5.2); ALT/SGPT 45 U/L (12-78); BILIRUBIN,TOTAL 0.3 MG/DL (0.2-1.0); BLOOD UREA NITROGEN 15 MG/DL (7-18); CALCIUM LEVEL 9.4 MG/DL (8.5-10.1); CARBON DIOXIDE LEVEL 28 MEQ/L (21-32); CHLORIDE LEVEL 110 MEQ/L (98-107); CHOLESTEROL LEVEL 146 MG/DL (<200); CHOLESTEROL RISK RATIO 2.807 (<5); CREATININE FOR GFR 0.91 MG/DL (0.55-1.30); FREE T4 0.88 NG/DL (0.76-1.46); GLOMERULAR FILTRATION RATE > 60.0 (>60); GLUCOSE, FASTING 72 MG/DL (70-100); HDL CHOLESTEROL 52 MG/DL (>40); LDL CHOLESTEROL 77 MG/DL (<100); NON-HDL-C 94 MG/DL; POTASSIUM SERUM 3.9 MEQ/L (3.5-5.1); SODIUM LEVEL 144 MEQ/L (136-145); TOTAL PROTEIN 7.3 GM/DL (6.4-8.2); TRIGLYCERIDES LEVEL 84 MG/DL (<150)
[2018-12-23 20:12] LABS: TOTAL 25(OH) VITAMIN D 11.6 NG/ML (30.0-100.0)
[2018-12-23 21:25] LABS: HEMOGLOBIN A1c 5.1 %
== END ==
LOC: M LAB REF 18:06
PROVIDERS: ATTEND Family Medicine
DX: R10.10 Upper abdominal pain, unspecified (principal); Z13.228 Encounter for screening for other metabolic disorders

== ENCOUNTER 2018-12-31 22:27 | Emergency (ER) | payer OTHER ==
[~2018-12-31] VITALS: Ht 175.3 cm; Wt 97.7 kg
[2018-12-31] MEDS ORDERED: LEVO25TA5 PO (22:36)
[2018-12-31] MEDS ORDERED: VITAD1000T PO (22:36)
[2018-12-31] MEDS ORDERED: ACET-683 PO (22:41)
[2019-01-01] MEDS ORDERED: ONDANSETRON 4MG/2ML VIAL (J2405) IV ONE (01:30)
[2019-01-01] MEDS ORDERED: NS 1,000 ML IV ONE (01:30)
[2019-01-01 02:03] LABS: BASO % 0.4 % (0.0-1.0); EOS % 0.8 % (0.0-3.0); HEMOGLOBIN 13.3 g/dl (12.0-15.5); LYMPH # 1.4 10^3/uL (1.5-6.5); LYMPH % 28.7 % (24.0-44.0); MEAN CORPUSCULAR HEMOGLOBIN 32.9 pg (27.0-33.0); MEAN CORPUSCULAR HGB CONC 33.3 g/dl (32.0-36.5); MONO # 0.4 10^3/uL (0.0-0.8); MONO % 7.3 % (0.0-5.0); NEUTROPHILS # 3.1 10^3/uL (1.8-7.7); NEUTROPHILS % 62.6 % (36.0-66.0); PLATELET COUNT, AUTOMATED 156 10^3/uL (150-450); RED BLOOD COUNT 4.04 10^6/uL (4.00-5.40); WHITE BLOOD COUNT 4.9 10^3/uL (4.0-10.0)
[2019-01-01 02:29] LABS: ALT/SGPT 44 U/L (12-78); BILIRUBIN,DIRECT 0.1 MG/DL (0.0-0.2); BILIRUBIN,TOTAL 0.3 MG/DL (0.2-1.0); BLOOD UREA NITROGEN 16 MG/DL (7-18); CALCIUM LEVEL 9.2 MG/DL (8.5-10.1); CARBON DIOXIDE LEVEL 31 MEQ/L (21-32); CHLORIDE LEVEL 106 MEQ/L (98-107); GLOMERULAR FILTRATION RATE > 60.0 (>60); GLUCOSE, FASTING 86 MG/DL (70-100); POTASSIUM SERUM 3.9 MEQ/L (3.5-5.1); SODIUM LEVEL 143 MEQ/L (136-145); TOTAL PROTEIN 7.7 GM/DL (6.4-8.2)
[2019-01-01] MEDS ORDERED: ONDA4TAB6 PO (02:46)
[2019-01-01 02:58] VITALS: BP 107/57
--- NOTE | 2019-01-01 14:28 | REP ---
KUB ABDOMEN AND PELVIS: Two KUB films of the abdomen and pelvis were performed and compared to prior study of 04/01/2018. A couple of mildly dilated small bowel loops in the left upper quadrant may represent a mild ileus. Air and fecal material is scattered throughout the colon. There are multiple metallic clips in the right upper quadrant. There are multiple phleboliths in the pelvis. IMPRESSION: A few mildly dilated small bowel loops in the left upper quadrant may represent a mild ileus. Electronically Signed by J Luis Wilson MD 01/01/2019 07:40 P
== END 2019-01-01 03:10 | disposition home or self-care (01) ==
LOC: M ED 22:27
DX: R11.2 Nausea with vomiting, unspecified (principal); R19.7 Diarrhea, unspecified; G71.11 Myotonic muscular dystrophy; F03.90 Unspecified dementia, unspecified severity, without behavioral disturbance, psychotic disturbance, mood disturbance, and anxiety; R51 Headache; R56.9 Unspecified convulsions; I42.9 Cardiomyopathy, unspecified; I10 Essential (primary) hypertension; R07.9 Chest pain, unspecified; Z86.718 Personal history of other venous thrombosis and embolism; K50.90 Crohn's disease, unspecified, without complications; Z87.42 Personal history of other diseases of the female genital tract; E03.9 Hypothyroidism, unspecified; M54.5 Low back pain; Z79.899 Other long term (current) drug therapy
CPT/HCPCS: 74018; 80048; 80076; 85025; 96374; 99284; J2405

== ENCOUNTER 2019-01-29 05:56 | Emergency (ER) | payer OTHER ==
[~2019-01-29] VITALS: Ht 175.3 cm; Wt 95.5 kg
[~2019-01-29 05:56] MED LIST changes: +ACET-683 PO; -OMEP20CA3 PO; +OMEP20CA4 PO; +ONDA4TAB6 PO; +VITAD1000T PO
[2019-01-29] MEDS ORDERED: BENA25CA4 PO (06:48)
[2019-01-29] MEDS ORDERED: hydroxycut PO (06:48)
[2019-01-29] MEDS ORDERED: NS 1,000 ML IV ONE (07:15)
[2019-01-29] MEDS ORDERED: KETOROLAC 30 MG/ML VIAL (J1885) IV ONE (07:15)
[2019-01-29 08:33] LABS: BASO % 0.4 % (0.0-1.0); EOS # 0.1 10^3/uL (0.0-0.50); EOS % 1.7 % (0.0-3.0); HEMATOCRIT 42.6 % (36.0-47.0); HEMOGLOBIN 13.8 g/dl (12.0-15.5); LYMPH # 1.5 10^3/uL (1.5-6.5); MEAN CORPUSCULAR HEMOGLOBIN 32.5 pg (27.0-33.0); MEAN CORPUSCULAR HGB CONC 32.4 g/dl (32.0-36.5); MEAN CORPUSCULAR VOLUME 100.2 fl (80.0-96.0); MONO # 0.3 10^3/uL (0.0-0.8); NEUTROPHILS # 2.8 10^3/uL (1.8-7.7); NEUTROPHILS % 60.7 % (36.0-66.0); PLATELET COUNT, AUTOMATED 162 10^3/uL (150-450); RED BLOOD COUNT 4.25 10^6/uL (4.00-5.40); WHITE BLOOD COUNT 4.7 10^3/uL (4.0-10.0)
[2019-01-29 08:42] LABS: INR 0.93; PROTHROMBIN TIME 12.2 SECONDS (11.8-14.0)
[2019-01-29 08:43] LABS: PARTIAL THROMBOPLASTIN TIME 29.2 SECONDS (25.0-38.4)
[2019-01-29 08:45] LABS: D-DIMER QUANT 396.14 ng/ml (<500)
[2019-01-29 08:58] LABS: BLOOD UREA NITROGEN 18 MG/DL (7-18); CARBON DIOXIDE LEVEL 30 MEQ/L (21-32); CHLORIDE LEVEL 109 MEQ/L (98-107); CHOLESTEROL LEVEL 150 MG/DL (<200); CHOLESTEROL RISK RATIO 2.727 (<5); CREATININE FOR GFR 0.87 MG/DL (0.55-1.30); GLOMERULAR FILTRATION RATE > 60.0 (>60); GLUCOSE, FASTING 84 MG/DL (70-100); HDL CHOLESTEROL 55 MG/DL (>40); LDL CHOLESTEROL 69 MG/DL (<100); NON-HDL-C 95 MG/DL; POTASSIUM SERUM 3.8 MEQ/L (3.5-5.1); SODIUM LEVEL 142 MEQ/L (136-145); TRIGLYCERIDES LEVEL 132 MG/DL (<150)
[2019-01-29] MEDS ORDERED: ISOVUE-370 76% 100ML VIAL (Q9967) As Ordered ONE (08:59)
--- NOTE | 2019-01-29 09:37 | REP ---
Soft-tissue CT study of the neck with IV contrast: History: Headache. A fascia. CT contrast dose: 100 ml of intravenous Isovue 370. CT findings: There is no evidence of paranasal sinusitis. No intraorbital lesion is seen. The parotid and submandibular glands are normal and symmetric. Scattered normal-sized cervical lymph nodes are seen bilaterally. Thyroid lobes are normal and symmetric. There is no evidence of neck mass or adenopathy. The lung apices are clear. No bony destructive lesion or fracture is evident. Glottic and subglottic airway is unremarkable. Tonsillar and peritonsillar soft tissues are normal in appearance. Impression: Negative soft-tissue neck CT study with IV contrast. Electronically Signed by Sergio Hurst MD 01/29/2019 09:29 A
--- NOTE | 2019-01-29 09:42 | REP ---
CT brain without and with IV contrast: History: Headache. Aphagia episode. The patient gives a history of colon carcinoma. CT contrast dose: 75 ml of intravenous Isovue 370. Comparison CT study November 18, 2018. Findings: Preliminary digital certified breastfeeding educator radiograph is unremarkable. No bony calvarial lesion is seen. Visualized paranasal sinuses are clear. No intraorbital abnormality is seen. On soft-tissue window settings, lateral, third and fourth ventricles are unchanged in size and position. Wilson-white differentiation pattern is normal above and below the tentorium. There is no evidence of intracranial hemorrhage. No infarct or mass lesion is seen. Contrast enhanced study shows enhancement in normal vascular structures. No abnormal intracranial contrast enhancement is seen. Impression: Normal CT study of the brain without and with intravenous contrast. Electronically Signed by Sergio Hurst MD 01/29/2019 12:03 P
[2019-01-29] MEDS ORDERED: ONDANSETRON 4MG/2ML VIAL (J2405) IV ONE (10:00)
[2019-01-29] MEDS ORDERED: ACETAMINOPHEN 500 MG TAB PO ONE (10:00)
[2019-01-29] MEDS ORDERED: KETO10TAB PO (11:30)
[2019-01-29 11:44] VITALS: BP 107/59
== END 2019-01-29 11:45 | disposition home or self-care (01) ==
LOC: M ED 05:56
DX: R51 Headache (principal); I10 Essential (primary) hypertension; G71.11 Myotonic muscular dystrophy; R11.0 Nausea; K50.919 Crohn's disease, unspecified, with unspecified complications; Z79.899 Other long term (current) drug therapy; Z88.8 Allergy status to other drugs, medicaments and biological substances; Z88.5 Allergy status to narcotic agent
CPT/HCPCS: 36415; 70470; 70491; 80048; 80061; 85025; 85379; 85610; 85730; 96374; 96375; 99284; J1885; J2405; Q9967

== ENCOUNTER 2019-03-14 10:06 | Outpatient (RCR) | payer OTHER ==
[~2019-03-14 10:06] MED LIST changes: +KETO10TAB PO; +hydroxycut PO
== END 2019-03-19 ==
LOC: M ST 10:06
PROVIDERS: ATTEND Psychiatry & Neurology Neurology
DX: G71.11 Myotonic muscular dystrophy (principal)

== ENCOUNTER 2019-04-01 19:25 | Emergency (ER) | payer OTHER ==
[~2019-04-01] VITALS: Ht 175.3 cm; Wt 95.5 kg
[~2019-04-01 19:25] MED LIST changes: +CHOL100029 PO; -VITAD1000T PO
[2019-04-01] MEDS ORDERED: MORPHINE 4 MG/ML 1ML VIAL/SYRINGE (J2270) IV ONE (20:15)
[2019-04-01] MEDS ORDERED: NS 1,000 ML IV ONE (20:15)
[2019-04-01] MEDS ORDERED: ONDANSETRON 4MG/2ML VIAL (J2405) IV ONE (20:15)
[2019-04-01 23:13] VITALS: BP 98/56
[2019-04-01 23:55] LABS: ALBUMIN 3.6 GM/DL (3.2-5.2); ALT/SGPT 38 U/L (12-78); BILIRUBIN,DIRECT 0.1 MG/DL (0.0-0.2); BILIRUBIN,TOTAL 0.3 MG/DL (0.2-1.0); BLOOD UREA NITROGEN 13 MG/DL (7-18); C REACTIVE PROTEIN QUANTITATIV < 0.30 MG/DL (0.00-0.30); CALCIUM LEVEL 8.8 MG/DL (8.5-10.1); CARBON DIOXIDE LEVEL 21 MEQ/L (21-32); CHLORIDE LEVEL 115 MEQ/L (98-107); CREATININE FOR GFR 0.62 MG/DL (0.55-1.30); GLOMERULAR FILTRATION RATE > 60.0 (>60); GLUCOSE, FASTING 87 MG/DL (70-100); IRON (FE) 72 UG/DL (50-170); LIPASE 90 U/L (73-393); PERCENT SATURATION 19.2 % (13.2-45.0); POTASSIUM SERUM 4.3 MEQ/L (3.5-5.1); SODIUM LEVEL 143 MEQ/L (136-145); TOTAL IRON BINDING CAPACITY 375 UG/DL (250-450); TOTAL PROTEIN 6.8 GM/DL (6.4-8.2)
[2019-04-01] MEDS ORDERED: ISOVUE-370 76% 100ML VIAL (Q9967) As Ordered ONE (23:57)
--- NOTE | 2019-04-02 01:24 | REPVR ---
EXAM: CT Abdomen and Pelvis With Contrast EXAM DATE/TIME: 04/01/2019 8:06 PM CLINICAL HISTORY: 28 years old, female; Abdominal pain; Additional Info: right abd pain/periumbilic pain TECHNIQUE: Imaging protocol: Computed tomography of the abdomen and pelvis with intravenous contrast. Radiation optimization: All CT scans at this facility use at least one of these dose optimization techniques: automated exposure control; mA and/or kV adjustment per patient size (includes targeted exams where dose is matched to clinical indication); or iterative reconstruction. Contrast material: ISO; Contrast volume: 100 ml; Contrast route: AC; COMPARISON: CT ABD PELVIS W/O CONTRAST 11/26/2018 4:55 PM FINDINGS: Liver: Dome of the liver is not fully imaged. Visualized liver is unremarkable. Gallbladder and bile ducts: Status post cholecystectomy. No biliary ductal dilatation. Pancreas: Normal. No ductal dilation. Spleen: Multiple calcified granulomas in the spleen. No masses. Adrenals: Normal. No mass. Kidneys and ureters: Normal. No hydronephrosis. Stomach and bowel: No abnormal bowel dilatation. Negative for colonic diverticulitis. Diffuse thickening of the distal ileum. Status post cecal resection. Appendix: Status post appendectomy. Intraperitoneal space: No acute fracture. Small free fluid in the pelvis the hip Vasculature: Unremarkable. No abdominal aortic aneurysm. Lymph nodes: Unremarkable. No enlarged lymph nodes. Bladder: Unremarkable as visualized. Reproductive: Unremarkable as visualized. Bones/joints: Stable bone island in the left femoral head. No acute fracture. Soft tissues: Unremarkable. IMPRESSION: 1. Diffuse thickening of the distal ileum. Consistent with infectious or inflammatory enteritis. 2. Small free fluid in the pelvis. 3. Status post cecal resection. 4. Additional findings as described. Electronically signed by: Iram Kc On 04/02/2019 01:23:52 AM
[2019-04-02] MEDS ORDERED: CIPR-249 PO (01:44)
[2019-04-02] MEDS ORDERED: PRED20TA PO (01:44)
[2019-04-02] MEDS ORDERED: CIPROFLOXACIN 500 MG TAB PO ONE (01:45)
[2019-04-02] MEDS ORDERED: predniSONE 20 MG TAB PO ONE (01:45)
[2019-04-02] MEDS ORDERED: ONDANSETRON 4MG/2ML VIAL (J2405) IV ONE (02:00)
--- NOTE | 2019-04-05 12:33 | ED PDOC ---
Post-Departure Follow-Up dr randhawa faxed formal report of ct abd/p for fu Jose F Zheng MD Apr 05, 2019 12:32
== END 2019-04-02 02:23 | disposition home or self-care (01) ==
LOC: M ED 19:25
DX: K52.9 Noninfective gastroenteritis and colitis, unspecified (principal); N39.0 Urinary tract infection, site not specified; E03.9 Hypothyroidism, unspecified; K50.90 Crohn's disease, unspecified, without complications; D64.9 Anemia, unspecified; F03.90 Unspecified dementia, unspecified severity, without behavioral disturbance, psychotic disturbance, mood disturbance, and anxiety; G71.11 Myotonic muscular dystrophy; Z79.899 Other long term (current) drug therapy; Z88.5 Allergy status to narcotic agent; Z88.8 Allergy status to other drugs, medicaments and biological substances
CPT/HCPCS: 74177; 80048; 80076; 81001; 83550; 83690; 86140; 87088; 87186; 96361; 96374; 96375; 96376; 99284; J2270; J2405; Q9967

== ENCOUNTER 2019-04-13 11:30 | Outpatient (RCR) | payer OTHER ==
[~2019-04-13 11:30] MED LIST changes: +PRED20TA PO
== END 2019-04-18 ==
LOC: M ST 11:30
PROVIDERS: ATTEND Psychiatry & Neurology Neurology
DX: G71.11 Myotonic muscular dystrophy (principal)

== ENCOUNTER 2019-05-03 08:15 | Outpatient (RCR) | payer OTHER | END 2019-05-19 | LOC: M PT 08:15 → M ST 08:15 | PROVIDERS: ATTEND Psychiatry & Neurology Neurology | DX: G71.11 Myotonic muscular dystrophy (principal) ==

== ENCOUNTER 2019-05-13 23:40 | Emergency (ER) | payer OTHER ==
[~2019-05-13] VITALS: Ht 177.8 cm; Wt 93.2 kg
[2019-05-14] MEDS ORDERED: PIPERACILLIN/TAZOBACTAM SOD 3.375 GM in D5W MINI-BAG PLUS 50 ML IV ONE (00:15)
[2019-05-14] MEDS ORDERED: MORPHINE 2 MG/ML 1ML VIAL (J2270) IV ONE (00:15)
[2019-05-14 01:58] LABS: APPEARANCE, URINE CLEAR (CLEAR); BACTERIA, URINE AUTO 1+ (NEGATIVE); BILIRUBIN, URINE AUTO NEGATIVE (NEGATIVE); BLOOD, URINE BLOOD NEGATIVE (NEGATIVE); COLOR, URINE STRAW (YELLOW); GLUCOSE, URINE (UA) AUTO NEGATIVE (NEGATIVE); KETONE, URINE AUTO NEGATIVE (NEGATIVE); LEUKOCYTE ESTERASE, URINE AUTO NEGATIVE (NEGATIVE); MUCUS, URINE SMALL (NEGATIVE); NITRITE, URINE AUTO NEGATIVE (NEGATIVE); PROTEIN, URINE AUTO NEGATIVE (NEGATIVE); RBC, URINE AUTO 0 /HPF (0-3); SPECIFIC GRAVITY URINE AUTO 1.008 (1.002-1.035); SQUAMOUS EPITHELIAL CELL UR AU 2 /HPF (0-6); UROBILINOGEN, URINE AUTO 0.2 mg/dL (0.0-2.0); WBC, URINE AUTO 1 /HPF (0-3)
--- NOTE | 2019-05-14 02:26 | REPVR ---
PROCEDURE INFORMATION: Exam: CT Abdomen And Pelvis Without Contrast Exam date and time: 05/14/2019 1:13 AM Clinical history: 28 years old, female; Abdominal pain; Generalized TECHNIQUE: Imaging protocol: Computed tomography of the abdomen and pelvis without contrast. Radiation optimization: All CT scans at this facility use at least one of these dose optimization techniques: automated exposure control; mA and/or kV adjustment per patient size (includes targeted exams where dose is matched to clinical indication); or iterative reconstruction. COMPARISON: CT ABD/PEL W/IV CONTRAST ONLY 04/01/2019 11:59 PM FINDINGS: Liver: Normal. No mass. Gallbladder and bile ducts: There has been prior cholecystectomy. Pancreas: Normal. No ductal dilation. Spleen: Normal. No splenomegaly. Adrenals: Normal. No mass. Kidneys and ureters: Normal. No hydronephrosis. Stomach and bowel: Unremarkable. No obstruction or inflammatory process. No mucosal thickening. Appendix: There has been prior appendectomy. Intraperitoneal space: Unremarkable. No free air. No significant fluid collection. Vasculature: Unremarkable. No abdominal aortic aneurysm. Lymph nodes: Unremarkable. No enlarged lymph nodes. Bladder: Unremarkable as visualized. Reproductive: There has been prior hysterectomy. Bones/joints: Unremarkable. No acute fracture. Soft tissues: Unremarkable. IMPRESSION: No acute findings. Electronically signed by: Agus Hess On 05/14/2019 02:25:55 AM
[2019-05-14 03:00] LABS: ALBUMIN 3.7 GM/DL (3.2-5.2); ALT/SGPT 32 U/L (12-78); BILIRUBIN,DIRECT < 0.1 MG/DL (0.0-0.2); BILIRUBIN,TOTAL 0.3 MG/DL (0.2-1.0); BLOOD UREA NITROGEN 16 MG/DL (7-18); CALCIUM LEVEL 8.9 MG/DL (8.5-10.1); CARBON DIOXIDE LEVEL 26 MEQ/L (21-32); CHLORIDE LEVEL 111 MEQ/L (98-107); CREATININE FOR GFR 0.88 MG/DL (0.55-1.30); GLOMERULAR FILTRATION RATE > 60.0 (>60); GLUCOSE, FASTING 86 MG/DL (70-100); LIPASE 128 U/L (73-393); POTASSIUM SERUM 4.4 MEQ/L (3.5-5.1); SODIUM LEVEL 142 MEQ/L (136-145); TOTAL PROTEIN 7.3 GM/DL (6.4-8.2)
[2019-05-14 04:15] VITALS: BP 122/77
[2019-05-14] MEDS ORDERED: ACETAMINOPHEN 500 MG TAB PO ONE (04:15)
== END 2019-05-14 04:32 | disposition home or self-care (01) ==
LOC: M ED 23:40
DX: R10.9 Unspecified abdominal pain (principal); G71.00 Muscular dystrophy, unspecified; D64.9 Anemia, unspecified; Z87.442 Personal history of urinary calculi; Z90.710 Acquired absence of both cervix and uterus; Z90.722 Acquired absence of ovaries, bilateral; Z90.49 Acquired absence of other specified parts of digestive tract; Z88.6 Allergy status to analgesic agent; Z88.8 Allergy status to other drugs, medicaments and biological substances; Z88.5 Allergy status to narcotic agent; Z91.041 Radiographic dye allergy status

== ENCOUNTER 2019-05-23 21:19 | Emergency (ER) | payer OTHER ==
[~2019-05-23] VITALS: Ht 175.3 cm; Wt 105.3 kg
[2019-05-23] MEDS ORDERED: FAMOTIDINE 20 MG TAB PO ONE (21:45)
[2019-05-23] MEDS: GI COCKTAIL 50ML BTL(HYOSCYAMINE/MAALOX/LIDOCAINE VISCOUS)(1:3:1) PO ONE ×2 (22:05→22:18)
[2019-05-23] MEDS ORDERED: ONDANSETRON 4 MG ORAL DISINTEGRATING TAB (Q0162 PER 1MG) PO ONE (22:15)
[2019-05-23 22:52] LABS: BASO % 0.4 % (0.0-1.0); EOS # 0.1 10^3/uL (0.0-0.5); EOS % 1.7 % (0.0-3.0); HEMATOCRIT 43.1 % (36.0-47.0); HEMOGLOBIN 13.8 g/dl (12.0-15.5); LYMPH # 1.7 10^3/uL (1.5-5.0); LYMPH % 31.7 % (24.0-44.0); MEAN CORPUSCULAR HEMOGLOBIN 31.8 pg (27.0-33.0); MEAN CORPUSCULAR VOLUME 99.3 fl (80.0-96.0); MONO # 0.4 10^3/uL (0.0-0.8); MONO % 6.9 % (0.0-5.0); NEUTROPHILS # 3.2 10^3/uL (1.5-8.5); NEUTROPHILS % 59.1 % (36.0-66.0); PLATELET COUNT, AUTOMATED 147 10^3/uL (150-450); RED BLOOD COUNT 4.34 10^6/uL (4.00-5.40); WHITE BLOOD COUNT 5.4 10^3/uL (4.0-10.0)
[2019-05-23 23:15] LABS: ALBUMIN 3.8 GM/DL (3.2-5.2); ALT/SGPT 38 U/L (12-78); BILIRUBIN,DIRECT < 0.1 MG/DL (0.0-0.2); BILIRUBIN,TOTAL 0.3 MG/DL (0.2-1.0); BLOOD UREA NITROGEN 18 MG/DL (7-18); CALCIUM LEVEL 9.3 MG/DL (8.5-10.1); CARBON DIOXIDE LEVEL 26 MEQ/L (21-32); CHLORIDE LEVEL 111 MEQ/L (98-107); CREATININE FOR GFR 0.76 MG/DL (0.55-1.30); GLOMERULAR FILTRATION RATE > 60.0 (>60); GLUCOSE, FASTING 71 MG/DL (70-100); LIPASE 116 U/L (73-393); POTASSIUM SERUM 3.8 MEQ/L (3.5-5.1); SODIUM LEVEL 145 MEQ/L (136-145); TOTAL PROTEIN 7.8 GM/DL (6.4-8.2)
[2019-05-23] MEDS ORDERED: OMEP40CA97 PO (23:59)
[2019-05-23] MEDS ORDERED: MAGN1.743 PO (23:59)
[2019-05-24 00:10] VITALS: BP 109/71
--- NOTE | 2019-05-24 01:37 | REP ---
Clinical: Abdominal pain constipation. Technique: Two supine views of the abdomen and pelvis. Findings: Bowel gas pattern is nonspecific. No organomegaly. Prior cholecystectomy noted. Phleboliths identified in the pelvis. Skeletal structures are intact. Impression: Normal nonspecific abdominal radiographs. Electronically Signed by Nate Plasencia MD 05/24/2019 01:29 A
== END 2019-05-24 00:13 | disposition home or self-care (01) ==
LOC: M ED 21:19
DX: K59.00 Constipation, unspecified (principal); K21.9 Gastro-esophageal reflux disease without esophagitis; K50.919 Crohn's disease, unspecified, with unspecified complications; D64.9 Anemia, unspecified; Z88.6 Allergy status to analgesic agent; Z88.8 Allergy status to other drugs, medicaments and biological substances
CPT/HCPCS: 36415; 74019; 80048; 80076; 83690; 85025; 99283; Q0162

== ENCOUNTER 2019-08-01 18:49 | Emergency (ER) | payer OTHER ==
[~2019-08-01] VITALS: Ht 177.8 cm; Wt 100.0 kg
[~2019-08-01 18:49] MED LIST changes: +MAGN1.743 PO; -MECL-68; -MECL-68 PO; +MECL1TAB31; +MECL1TAB31 PO; +OMEP1CAP73 PO; -OMEP20CA4 PO; +OMEP40CA97 PO
[2019-08-01 21:19] LABS: BASO % 0.5 % (0.0-1.0); EOS % 0.5 % (0.0-3.0); HEMATOCRIT 43.8 % (36.0-47.0); HEMOGLOBIN 13.9 g/dl (12.0-15.5); LYMPH # 1.4 10^3/uL (1.5-5.0); LYMPH % 24.1 % (24.0-44.0); MEAN CORPUSCULAR HEMOGLOBIN 31.2 pg (27.0-33.0); MEAN CORPUSCULAR HGB CONC 31.7 g/dl (32.0-36.5); MEAN CORPUSCULAR VOLUME 98.4 fl (80.0-96.0); MONO # 0.3 10^3/uL (0.0-0.8); MONO % 5.5 % (0.0-5.0); NEUTROPHILS # 3.9 10^3/uL (1.5-8.5); NEUTROPHILS % 68.9 % (36.0-66.0); PLATELET COUNT, AUTOMATED 178 10^3/uL (150-450); RED BLOOD COUNT 4.45 10^6/uL (4.00-5.40); WHITE BLOOD COUNT 5.6 10^3/uL (4.0-10.0)
[2019-08-01 21:29] LABS: INR 1.03; PROTHROMBIN TIME 13.2 SECONDS (11.8-14.0)
[2019-08-01 21:30] LABS: PARTIAL THROMBOPLASTIN TIME 29.3 SECONDS (25.0-38.4)
[2019-08-01 21:55] LABS: ALBUMIN 4.1 GM/DL (3.2-5.2); ALT/SGPT 42 U/L (12-78); BILIRUBIN,DIRECT 0.1 MG/DL (0.0-0.2); BILIRUBIN,TOTAL 0.3 MG/DL (0.2-1.0); BLOOD UREA NITROGEN 13 MG/DL (7-18); CALCIUM LEVEL 9.2 MG/DL (8.5-10.1); CARBON DIOXIDE LEVEL 27 MEQ/L (21-32); CHLORIDE LEVEL 109 MEQ/L (98-107); CK-MB VALUE MASS 5.6 NG/ML (<3.6); CPK CREATINE PHOSPHOKINASE 361 U/L (26-192); CREATININE FOR GFR 0.76 MG/DL (0.55-1.30); FREE T4 0.91 NG/DL (0.76-1.46); GLOMERULAR FILTRATION RATE > 60.0 (>60); GLUCOSE, FASTING 82 MG/DL (70-100); LIPASE 110 U/L (73-393); MB/CK RELATIVE INDEX 1.55 (< OR =4); POTASSIUM SERUM 3.7 MEQ/L (3.5-5.1); SODIUM LEVEL 142 MEQ/L (136-145); TROPONIN I < 0.02 NG/ML (< 0.10)
[2019-08-01 22:14] LABS: HCG, SERUM QUALITATIVE NEGATIVE (NEGATIVE)
--- NOTE | 2019-08-01 22:32 | REPVR ---
PROCEDURE INFORMATION: Exam: US Duplex Lower Extremity Veins Exam date and time: 08/01/2019 9:57 PM Age: 28 years old Clinical indication: Pain; Leg, lower; Bilateral; Additional info: Leg pain L > R TECHNIQUE: Imaging protocol: Real-time duplex ultrasound of the Lower Extremities with 2-D grimaldo scale, color Doppler flow and spectral waveform analysis with image documentation. Complete exam focused on the bilateral lower extremity veins. COMPARISON: No relevant prior studies available. FINDINGS: Right deep veins: Unremarkable. The common femoral, femoral, proximal profunda femoral and popliteal veins are patent without thrombus. Normal Doppler waveforms. Normal compressibility and/or augmentation response. Right superficial veins: Saphenofemoral junction is patent without thrombus. Left deep veins: Unremarkable. The common femoral, femoral, proximal profunda femoral and popliteal veins are patent without thrombus. Normal Doppler waveforms. Normal compressibility and/or augmentation response. Left superficial veins: Saphenofemoral junction is patent without thrombus. Soft tissues: Unremarkable. IMPRESSION: No DVT of bilateral lower extremity veins. Electronically signed by: Remington Angela On 08/01/2019 22:32:09 PM
[2019-08-01] MEDS ORDERED: ISOVUE-370 76% 100ML VIAL (Q9967) As Ordered ONE (23:10)
[2019-08-02 00:29] LABS: D-DIMER QUANT < 270 ng/ml (<500)
[2019-08-02 01:15] VITALS: BP 111/80
--- NOTE | 2019-08-03 09:53 | ECGEPIP ---
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
== END 2019-08-02 01:25 | disposition home or self-care (01) ==
LOC: M ED 18:49 → EDBD 18:49 → M ED 08-02 01:25
DX: R07.89 Other chest pain (principal); R06.02 Shortness of breath; R22.43 Localized swelling, mass and lump, lower limb, bilateral; I10 Essential (primary) hypertension; E07.9 Disorder of thyroid, unspecified; D64.9 Anemia, unspecified; G71.19 Other specified myotonic disorders; Z79.899 Other long term (current) drug therapy
CPT/HCPCS: 36415; 80048; 80076; 82550; 82553; 83690; 84439; 84443; 84703; 85025; 85379; 85610; 85730; 93005; 93041; 93970; 94760; 99285; Q9967

== ENCOUNTER 2019-08-29 23:31 | Emergency (ER) | payer OTHER ==
[~2019-08-29] VITALS: Ht 175.3 cm; Wt 100.0 kg
[2019-08-29 23:43] VITALS: BP 115/72
[2019-08-29] MEDS ORDERED: AMIT25TA (23:53)
[2019-08-29] MEDS ORDERED: LEVO50TA5 (23:53)
== END 2019-08-30 02:56 | disposition left against medical advice (07) ==
LOC: M ED 23:31
DX: R51 Headache (principal); G89.29 Other chronic pain; Z79.899 Other long term (current) drug therapy; Z88.5 Allergy status to narcotic agent; Z88.8 Allergy status to other drugs, medicaments and biological substances

== ENCOUNTER 2019-09-28 21:53 | Emergency (ER) | payer OTHER ==
[~2019-09-28] VITALS: Ht 175.3 cm; Wt 111.5 kg
[2019-09-29 00:48] LABS: BASO % 0.5 % (0.0-1.0); EOS # 0.1 10^3/uL (0.0-0.5); EOS % 0.9 % (0.0-3.0); HEMATOCRIT 44.9 % (36.0-47.0); HEMOGLOBIN 14.4 g/dl (12.0-15.5); LYMPH # 1.5 10^3/uL (1.5-5.0); LYMPH % 26.8 % (24.0-44.0); MEAN CORPUSCULAR HEMOGLOBIN 31.6 pg (27.0-33.0); MEAN CORPUSCULAR HGB CONC 32.1 g/dl (32.0-36.5); MEAN CORPUSCULAR VOLUME 98.7 fl (80.0-96.0); MONO # 0.3 10^3/uL (0.0-0.8); NEUTROPHILS # 3.8 10^3/uL (1.5-8.5); NEUTROPHILS % 66.6 % (36.0-66.0); PLATELET COUNT, AUTOMATED 181 10^3/uL (150-450); RED BLOOD COUNT 4.55 10^6/uL (4.00-5.40); WHITE BLOOD COUNT 5.6 10^3/uL (4.0-10.0)
[2019-09-29 01:32] LABS: HCG, SERUM QUALITATIVE NEGATIVE (NEGATIVE)
[2019-09-29 01:33] VITALS: BP 155/90
[2019-09-29 01:37] LABS: BLOOD UREA NITROGEN 12 MG/DL (7-18); CALCIUM LEVEL 9.7 MG/DL (8.5-10.1); CARBON DIOXIDE LEVEL 28 MEQ/L (21-32); CHLORIDE LEVEL 109 MEQ/L (98-107); CREATININE FOR GFR 0.82 MG/DL (0.55-1.30); GLOMERULAR FILTRATION RATE > 60.0 (>60); GLUCOSE, FASTING 78 MG/DL (70-100); POTASSIUM SERUM 3.9 MEQ/L (3.5-5.1); SODIUM LEVEL 143 MEQ/L (136-145)
--- NOTE | 2019-09-29 02:13 | REPVR ---
PROCEDURE INFORMATION: Exam: CT Head Without Contrast Exam date and time: 09/29/19 (1:50am) Age: 29 years old Clinical indication: Fall. Syncope. Hit head, headache. Initial encounter. Concussion / head injury. Consciousness not specified. TECHNIQUE: Imaging protocol: Computed tomography of the head without contrast. Radiation optimization: All CT scans at this facility use at least one of these dose optimization techniques: automated exposure control; mA and/or kV adjustment per patient size (includes targeted exams where dose is matched to clinical indication); or iterative reconstruction. COMPARISON: CT HEAD of 11/18/18 FINDINGS: Brain: Normal. No hemorrhage. Unremarkable white matter. No mass effect. Ventricles: Normal. No ventriculomegaly. Bones/joints: Unremarkable. No acute fracture. Sinuses: Visualized sinuses are unremarkable. No air-fluid levels. Mastoid air cells: Visualized mastoid air cells are well aerated. Soft tissues: Unremarkable. IMPRESSION: No acute intracranial pathology is appreciated. Electronically signed by: Lakisha Sloan On 09/29/2019 02:13:00 AM
--- NOTE | 2019-09-29 18:56 | ECGEPIP ---
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
== END 2019-09-29 03:10 | disposition left against medical advice (07) ==
LOC: M ED 21:53
DX: R55 Syncope and collapse (principal); G71.11 Myotonic muscular dystrophy; I42.9 Cardiomyopathy, unspecified; I44.7 Left bundle-branch block, unspecified; Z53.21 Procedure and treatment not carried out due to patient leaving prior to being seen by health care provider; Z88.6 Allergy status to analgesic agent; Z88.8 Allergy status to other drugs, medicaments and biological substances

== ENCOUNTER → 2019-09-28 | Outpatient (REF) | payer OTHER ==
[~2019-09-28] MED LIST changes: +AMIT25TA; +LEVO50TA5
[2019-09-28 19:37] LABS: BASO % 0.6 % (0.0-1.0); EOS # 0.1 10^3/uL (0.0-0.5); EOS % 1.1 % (0.0-3.0); HEMATOCRIT 42.2 % (36.0-47.0); HEMOGLOBIN 13.5 g/dl (12.0-15.5); LYMPH # 1.4 10^3/uL (1.5-5.0); LYMPH % 25.8 % (24.0-44.0); MEAN CORPUSCULAR HEMOGLOBIN 32.3 pg (27.0-33.0); MONO # 0.3 10^3/uL (0.0-0.8); MONO % 5.8 % (0.0-5.0); NEUTROPHILS # 3.5 10^3/uL (1.5-8.5); NEUTROPHILS % 66.5 % (36.0-66.0); PLATELET COUNT, AUTOMATED 192 10^3/uL (150-450); RED BLOOD COUNT 4.18 10^6/uL (4.00-5.40); WHITE BLOOD COUNT 5.3 10^3/uL (4.0-10.0)
[2019-09-28 19:52] LABS: ALBUMIN 4.3 GM/DL (3.2-5.2); ALT/SGPT 72 U/L (12-78); BILIRUBIN,TOTAL 0.3 MG/DL (0.2-1.0); BLOOD UREA NITROGEN 18 MG/DL (7-18); CALCIUM LEVEL 9.6 MG/DL (8.5-10.1); CARBON DIOXIDE LEVEL 29 MEQ/L (21-32); CHLORIDE LEVEL 107 MEQ/L (98-107); CHOLESTEROL LEVEL 181 MG/DL (<200); CHOLESTEROL RISK RATIO 2.967 (<5); CREATININE FOR GFR 0.77 MG/DL (0.55-1.30); FREE T4 1.04 NG/DL (0.76-1.46); GLOMERULAR FILTRATION RATE > 60.0 (>60); GLUCOSE, FASTING 86 MG/DL (70-100); HDL CHOLESTEROL 61 MG/DL (>40); LDL CHOLESTEROL 93 MG/DL (<100); NON-HDL-C 120 MG/DL; POTASSIUM SERUM 3.6 MEQ/L (3.5-5.1); SODIUM LEVEL 142 MEQ/L (136-145); TOTAL PROTEIN 8.3 GM/DL (6.4-8.2); TRIGLYCERIDES LEVEL 133 MG/DL (<150)
== END ==
LOC: M LAB REF 18:47
PROVIDERS: ATTEND Family Medicine
DX: E03.9 Hypothyroidism, unspecified (principal); E66.3 Overweight

== ENCOUNTER 2019-10-21 15:38 | Emergency (ER) | payer OTHER ==
[~2019-10-21] VITALS: Ht 175.3 cm; Wt 112.0 kg
[2019-10-21 17:38] VITALS: BP 131/70
== END 2019-10-21 17:43 | disposition home or self-care (01) ==
LOC: M ED 15:38
DX: R05 Cough (principal); I10 Essential (primary) hypertension; I51.7 Cardiomegaly; K50.90 Crohn's disease, unspecified, without complications; Z88.6 Allergy status to analgesic agent; Z88.8 Allergy status to other drugs, medicaments and biological substances
CPT/HCPCS: 87486; 87581; 87633; 87798; 99283; U0002

== ENCOUNTER → 2019-11-14 | Outpatient (CLI) | payer OTHER ==
[2019-11-17 00:07] LABS: CHROMOGRANIN A 22.6 ng/mL (0.0-101.8)
== END ==
LOC: M LAB 13:35
PROVIDERS: ATTEND Internal Medicine
DX: R19.7 Diarrhea, unspecified (principal)

== ENCOUNTER 2020-01-15 13:58 | Emergency (ER) | payer OTHER ==
[~2020-01-15] VITALS: Ht 177.8 cm; Wt 114.6 kg
[~2020-01-15 13:58] MED LIST changes: +FURO20TA2
[2020-01-15] MEDS ORDERED: NS 1,000 ML IV ONE (15:00)
[2020-01-15] MEDS ORDERED: ONDANSETRON 4MG/2ML VIAL IV ONE (15:00)
[2020-01-15] MEDS ORDERED: KETOROLAC 30 MG/ML 1ML VIAL IV ONE (15:00)
[2020-01-15 15:28] LABS: BASO % 0.4 % (0.0-1.0); EOS % 0.6 % (0.0-3.0); HEMATOCRIT 40.6 % (36.0-47.0); HEMOGLOBIN 13.2 g/dl (12.0-15.5); LYMPH # 1.2 10^3/uL (1.5-5.0); LYMPH % 23.4 % (24.0-44.0); MEAN CORPUSCULAR HEMOGLOBIN 32.2 pg (27.0-33.0); MEAN CORPUSCULAR HGB CONC 32.5 g/dl (32.0-36.5); MONO # 0.3 10^3/uL (0.0-0.8); MONO % 6.2 % (0.0-5.0); NEUTROPHILS # 3.6 10^3/uL (1.5-8.5); NEUTROPHILS % 69.2 % (36.0-66.0); PLATELET COUNT, AUTOMATED 162 10^3/uL (150-450); WHITE BLOOD COUNT 5.2 10^3/uL (4.0-10.0)
--- NOTE | 2020-01-15 15:45 | REP ---
Clinical: Right flank pain. Technique: Axial noncontrast images from the lung bases to the pubic symphysis with coronal and sagittal re-formations. Comparison: 05/14/2019. Findings: Liver, spleen, pancreas, bilateral adrenal glands and kidneys are essentially normal/stable. Evidence of prior cholecystectomy, appendectomy, and hysterectomy noted. The enteric system is without obstruction or acute inflammatory process. Pelvis demonstrates collapsed normal bladder. No ascites. No free air. No adenopathy. Abdominal aorta without aneurysm. Musculoskeletal structures are intact without acute osseous abnormality. Lung bases are essentially clear. Impression: 1. No acute abdominopelvic pathology appreciated. 2. Evidence of prior cholecystectomy, hysterectomy, and appendectomy. 3. No ascites, focal inflammatory stranding, adenopathy, or free air. Electronically Signed by Nate Plasencia MD 01/15/2020 03:36 P
[2020-01-15 16:08] LABS: ALBUMIN 3.6 GM/DL (3.2-5.2); ALT/SGPT 59 U/L (12-78); BILIRUBIN,DIRECT < 0.1 MG/DL (0.0-0.2); BILIRUBIN,TOTAL 0.4 MG/DL (0.2-1.0); LIPASE 103 U/L (73-393); TOTAL PROTEIN 7.5 GM/DL (6.4-8.2)
[2020-01-15 16:33] VITALS: BP 100/60
== END 2020-01-15 16:41 | disposition home or self-care (01) ==
LOC: M ED 13:58
DX: R10.9 Unspecified abdominal pain (principal); K50.90 Crohn's disease, unspecified, without complications; R56.9 Unspecified convulsions; G71.11 Myotonic muscular dystrophy; Z79.899 Other long term (current) drug therapy; Z88.8 Allergy status to other drugs, medicaments and biological substances
CPT/HCPCS: 74176; 80047; 80076; 81001; 83690; 84702; 85025; 96361; 96374; 96375; 99284; J1885; J2405

== ENCOUNTER → 2020-03-06 | Outpatient (CLI) | payer OTHER ==
[~2020-03-06] MED LIST changes: +KEFL500C17 PO; +POTA1TAB23 PO
[2020-04-29 07:01] LABS: BLOOD UREA NITROGEN 11 MG/DL (7-18); CALCIUM LEVEL 8.8 MG/DL (8.5-10.1); CARBON DIOXIDE LEVEL 26 MEQ/L (21-32); CHLORIDE LEVEL 111 MEQ/L (98-107); CREATININE FOR GFR 0.69 MG/DL (0.55-1.30); GLOMERULAR FILTRATION RATE > 60.0 (>60); GLUCOSE, FASTING 77 MG/DL (70-100); MAGNESIUM LEVEL 2.2 MG/DL (1.8-2.4); SODIUM LEVEL 142 MEQ/L (136-145)
== END ==
LOC: M LAB 12:11
PROVIDERS: ATTEND Internal Medicine Cardiovascular Disease
DX: I42.0 Dilated cardiomyopathy (principal); I49.3 Ventricular premature depolarization

== ENCOUNTER 2020-03-13 00:09 | Emergency (ER) | payer OTHER ==
[~2020-03-13] VITALS: Ht 175.3 cm; Wt 117.7 kg
[~2020-03-13 00:09] MED LIST changes: -KEFL500C17 PO; -POTA1TAB23 PO
[2020-03-13] MEDS ORDERED: POTA1TAB23 PO (00:18)
[2020-03-13 06:32] LABS: BASO % 0.6 % (0.0-1.0); EOS # 0.1 10^3/uL (0.0-0.5); HEMATOCRIT 43.8 % (36.0-47.0); LYMPH # 2.1 10^3/uL (1.5-5.0); LYMPH % 34.5 % (24.0-44.0); MONO # 0.4 10^3/uL (0.0-0.8); MONO % 6.6 % (0.0-5.0); NEUTROPHILS # 3.5 10^3/uL (1.5-8.5); PLATELET COUNT, AUTOMATED 176 10^3/uL (150-450); RED BLOOD COUNT 4.38 10^6/uL (4.00-5.40); WHITE BLOOD COUNT 6.2 10^3/uL (4.0-10.0)
[2020-03-13] MEDS ORDERED: ONDANSETRON 4MG/2ML VIAL IV ONE (07:00)
[2020-03-13] MEDS ORDERED: KETOROLAC 30 MG/ML 1ML VIAL IV ONE (07:00)
[2020-03-13 07:10] LABS: HCG, SERUM QUALITATIVE NEGATIVE (NEGATIVE)
[2020-03-13 07:13] LABS: ALBUMIN 3.8 GM/DL (3.2-5.2); ALT/SGPT 92 U/L (12-78); BILIRUBIN,DIRECT 0.1 MG/DL (0.0-0.2); BILIRUBIN,TOTAL 0.4 MG/DL (0.2-1.0); BLOOD UREA NITROGEN 11 MG/DL (7-18); CALCIUM LEVEL 9.6 MG/DL (8.5-10.1); CARBON DIOXIDE LEVEL 28 MEQ/L (21-32); CHLORIDE LEVEL 108 MEQ/L (98-107); CK-MB VALUE MASS 9.6 NG/ML (<3.6); CPK CREATINE PHOSPHOKINASE 521 U/L (26-192); CREATININE FOR GFR 0.73 MG/DL (0.55-1.30); GLOMERULAR FILTRATION RATE > 60.0 (>60); GLUCOSE, FASTING 92 MG/DL (70-100); LIPASE 68 U/L (73-393); MB/CK RELATIVE INDEX 1.84 (< OR =4); POTASSIUM SERUM 4.3 MEQ/L (3.5-5.1); SODIUM LEVEL 142 MEQ/L (136-145); TOTAL PROTEIN 7.5 GM/DL (6.4-8.2); TROPONIN I < 0.02 NG/ML (< 0.10)
[2020-03-13] MEDS ORDERED: ISOVUE-370 76% 100ML VIAL As Ordered ONE (07:51)
--- NOTE | 2020-03-13 08:50 | REPVR ---
PROCEDURE INFORMATION: Exam: CT Abdomen And Pelvis With Contrast Exam date and time: 03/13/2020 8:04 AM Age: 29 years old Clinical indication: Abdominal pain; Additional info: Abd pain TECHNIQUE: Imaging protocol: Computed tomography of the abdomen and pelvis with intravenous contrast. Radiation optimization: All CT scans at this facility use at least one of these dose optimization techniques: automated exposure control; mA and/or kV adjustment per patient size (includes targeted exams where dose is matched to clinical indication); or iterative reconstruction. Contrast material: ISO 370; Contrast volume: 100 ml; Contrast route: INTRAVENOUS (IV); COMPARISON: CT ABD PELVIS W/O CONTRAST 01/15/2020 3:14 PM FINDINGS: Liver: Normal. No mass. Gallbladder and bile ducts: Status post cholecystectomy. No biliary ductal dilatation. Pancreas: Normal. No ductal dilation. Spleen: No splenomegaly. Calcified granuloma in the spleen. Adrenals: Normal. No mass. Kidneys and ureters: Normal. No hydronephrosis. Stomach and bowel: No obstruction. No mucosal thickening. Negative for colonic diverticulitis. Moderate stool in the colon. Appendix: Status post appendectomy. Intraperitoneal space: Small fluid in the pelvis. No free air. Mild haziness of the fat in the right lower quadrant. Vasculature: Unremarkable. No abdominal aortic aneurysm. Lymph nodes: Unremarkable. No enlarged lymph nodes. Bladder: Unremarkable as visualized. Reproductive: Status post hysterectomy. Bones/joints: Unremarkable. No acute fracture. Soft tissues: Unremarkable. IMPRESSION: 1. Mild haziness of the fat in the right lower quadrant. Unchanged from prior. 2. Small free fluid in the pelvis. 3. Additional findings as described. Electronically signed by: Iram cK On 03/13/2020 08:50:55 AM
[2020-03-13] MEDS ORDERED: KEFL500C17 PO (09:40)
[2020-03-13 10:06] VITALS: BP 128/69
--- NOTE | 2020-04-02 14:40 | ECGEPIP ---
[facility] - ED Test Date: 2020-03-13 Pat Name: COREY BENITEZ Department: Room: - Gender: Female Vp Of Digital Marketing: KRISTINE : 1990 Requested By: JAMILA TINOCO Order Number: [id number] Reading MD: Jose F Ba-Wilson Measurements Intervals [place] Rate: 63 P: [place]: 0 QRS: -12 QRSD: 141 T: 77 QT: 462 QTc: 474 Interpretive Statements UNCERTAIN REGULAR RHYTHM LEFT BUNDLE BRANCH BLOCK ABNORMAL ECG LATERAL ARTIFACT MAY AFFECT READING DOWNTIME-NO PRIOR SEE SCANNED DOWNTIME REPORT
== END 2020-03-13 10:27 | disposition home or self-care (01) ==
LOC: M ED 00:09
DX: N39.0 Urinary tract infection, site not specified (principal); Z88.8 Allergy status to other drugs, medicaments and biological substances; I42.9 Cardiomyopathy, unspecified
CPT/HCPCS: 74177; 80048; 80076; 81001; 82550; 82553; 83690; 84703; 85025; 87088; 87186; 93005; 93041; 96374; 96375; 99284; J1885; J2405; Q9967

== ENCOUNTER → 2020-03-30 | Outpatient (CLI) | payer OTHER ==
[~2020-03-30] MED LIST changes: +KEFL500C17 PO; +POTA1TAB23 PO
[2020-03-30 10:50] LABS: BASO % 0.4 % (0.0-1.0); EOS # 0.1 10^3/uL (0.0-0.5); EOS % 1.1 % (0.0-3.0); HEMATOCRIT 41.8 % (36.0-47.0); HEMOGLOBIN 13.9 g/dl (12.0-15.5); LYMPH # 1.5 10^3/uL (1.5-5.0); LYMPH % 33.1 % (24.0-44.0); MEAN CORPUSCULAR HEMOGLOBIN 32.4 pg (27.0-33.0); MEAN CORPUSCULAR HGB CONC 33.3 g/dl (32.0-36.5); MEAN CORPUSCULAR VOLUME 97.4 fl (80.0-96.0); MONO # 0.4 10^3/uL (0.0-0.8); MONO % 7.8 % (0.0-5.0); NEUTROPHILS # 2.6 10^3/uL (1.5-8.5); NEUTROPHILS % 57.4 % (36.0-66.0); PLATELET COUNT, AUTOMATED 171 10^3/uL (150-450); RED BLOOD COUNT 4.29 10^6/uL (4.00-5.40); WHITE BLOOD COUNT 4.5 10^3/uL (4.0-10.0)
[2020-03-30 11:22] LABS: ALBUMIN 3.5 GM/DL (3.2-5.2); ALT/SGPT 37 U/L (12-78); BILIRUBIN,TOTAL 0.5 MG/DL (0.2-1.0); BLOOD UREA NITROGEN 15 MG/DL (7-18); CALCIUM LEVEL 9.1 MG/DL (8.5-10.1); CARBON DIOXIDE LEVEL 24 MEQ/L (21-32); CHLORIDE LEVEL 110 MEQ/L (98-107); CREATININE FOR GFR 0.76 MG/DL (0.55-1.30); GLOMERULAR FILTRATION RATE > 60.0 (>60); GLUCOSE, FASTING 84 MG/DL (70-100); POTASSIUM SERUM 4.1 MEQ/L (3.5-5.1); SODIUM LEVEL 140 MEQ/L (136-145); TOTAL PROTEIN 7.3 GM/DL (6.4-8.2)
[2020-03-30 11:25] LABS: ERYTHROCYTE SEDIMENTATION RATE 24 mm/hr (0-20)
== END ==
LOC: M LAB 08:31
PROVIDERS: ATTEND Internal Medicine
DX: R19.7 Diarrhea, unspecified (principal)

== ENCOUNTER → 2020-04-03 | Outpatient (REF) | payer OTHER ==
[2020-04-10 16:22] LABS: CALPROTECTIN STOOL 21 ug/g (0-120); FATS NEUTRAL Normal (.); FATS TOTAL Normal (.)
== END ==
LOC: M LAB REF 13:01
PROVIDERS: ATTEND Internal Medicine Gastroenterology
DX: R19.7 Diarrhea, unspecified (principal)

== ENCOUNTER → 2020-04-27 | Outpatient (CLI) | payer OTHER ==
[~2020-04-27] MED LIST changes: +GASTROGRAFIN SOLUTION 30ML (Q9963) As Ordered ONE; +ISOVUE-370 76% 100ML VIAL As Ordered ONE
--- NOTE | 2020-05-02 14:39 | REP ---
CT ABDOMEN AND PELVIS WITH INTRAVENOUS (IV) AND ORAL CONTRAST HISTORY: Diarrhea. Carcinoid tumor of the appendix. COMPARISON: CT study abdomen and pelvis 03/13/2020 and 01/15/2020. CT CONTRAST DOSE: 100 mL of intravenous Isovue-[address] FINDINGS: Preliminary digital machine tailer radiograph shows a moderate amount of air and stool in the colon. Liquid content. The lung bases are clear on axial CT images. There is no evidence of hepatic or splenic focal lesion. There is a small accessory splenule. There is granulomatous calcification in the inferior spleen. No adrenal lesion is seen on either side. Kidneys enhance symmetrically and are morphologically intact. No abnormality is observed in the pancreas. The gallbladder is surgically absent. The appendix is surgically absent and there is evidence of an ileocecal anastomosis without evidence of anastomosis mass or regional adenopathy. Minimal postoperative fibrotic changes are seen in the small bowel mesentery at the anastomosis in the right lower quadrant. No adenopathy is seen in the retroperitoneum or pelvis. No abnormal fluid collection is observed. Uterus is surgically absent. No ovarian mass or cystic lesion is seen. No free fluid is noted. Urinary bladder is unremarkable. No abdominal wall defect is seen. Bone window settings show no bony destructive lesion. IMPRESSION: Status post hysterectomy, cholecystectomy, and appendectomy with ileocecal anastomosis. No evidence of residual or recurrent mass or adenopathy in the abdomen. Moderate amount of semi-solid colon content. No obstructive lesion. MTDD
== END ==
LOC: M RAD 10:19
PROVIDERS: ATTEND Internal Medicine
DX: R10.9 Unspecified abdominal pain (principal); R19.7 Diarrhea, unspecified; Z90.49 Acquired absence of other specified parts of digestive tract; Z85.038 Personal history of other malignant neoplasm of large intestine; Z90.79 Acquired absence of other genital organ(s)
CPT/HCPCS: 74177; Q9963; Q9967

== ENCOUNTER → 2020-05-01 | Outpatient (CLI) | payer OTHER ==
[~2020-05-01] MED LIST changes: -GASTROGRAFIN SOLUTION 30ML (Q9963) As Ordered ONE; -ISOVUE-370 76% 100ML VIAL As Ordered ONE
--- NOTE | 2020-05-01 09:24 | ECGEPIP ---
[facility] Test Date: 2020-05-01 Pat Name: COREY BENITEZ Department: Room: - Gender: Female Urogynecology Physician: JUVENTINO : 1990 Requested By: Patricia Brar Order Number: [id number] Reading MD: Jessie Espinosa Measurements Intervals [place] Rate: 64 P: -10 AL: 158 QRS: -12 QRSD: 158 T: 83 QT: 466 QTc: 484 Interpretive Statements SINUS RHYTHM SINUS ARRYRTHMIA INCOMPLETE-COMPLETELEFT BUNDLE BRANCH BLOCK P WAVES NOW VISIBLE NOW WITH HIGH LAT STTABN PROLONGED QTC POSSIBLE OLD IWMI COMPARED TO 03/13/20 Electronically Signed on 05-01-2020 9:23:39 EDT by Jessie Espinosa
[2020-05-01 09:31] LABS: BASO % 0.4 % (0.0-1.0); EOS # 0.1 10^3/uL (0.0-0.5); EOS % 1.4 % (0.0-3.0); HEMATOCRIT 38.5 % (36.0-47.0); HEMOGLOBIN 12.3 g/dl (12.0-15.5); LYMPH # 1.5 10^3/uL (1.5-5.0); LYMPH % 29.9 % (24.0-44.0); MEAN CORPUSCULAR HEMOGLOBIN 31.4 pg (27.0-33.0); MEAN CORPUSCULAR HGB CONC 31.9 g/dl (32.0-36.5); MEAN CORPUSCULAR VOLUME 98.2 fl (80.0-96.0); MONO # 0.3 10^3/uL (0.0-0.8); MONO % 6.2 % (0.0-5.0); NEUTROPHILS # 3.1 10^3/uL (1.5-8.5); NEUTROPHILS % 61.9 % (36.0-66.0); PLATELET COUNT, AUTOMATED 167 10^3/uL (150-450); RED BLOOD COUNT 3.92 10^6/uL (4.00-5.40)
[2020-05-01 10:17] LABS: ALBUMIN 3.4 GM/DL (3.2-5.2); ALT/SGPT 36 U/L (12-78); BILIRUBIN,TOTAL 0.4 MG/DL (0.2-1.0); BLOOD UREA NITROGEN 15 MG/DL (7-18); CALCIUM LEVEL 8.7 MG/DL (8.5-10.1); CARBON DIOXIDE LEVEL 24 MEQ/L (21-32); CHLORIDE LEVEL 111 MEQ/L (98-107); CHOLESTEROL LEVEL 133 MG/DL (<200); CHOLESTEROL RISK RATIO 2.607 (<5); CREATININE FOR GFR 0.79 MG/DL (0.55-1.30); FERRITIN 14 NG/ML (8-252); GLOMERULAR FILTRATION RATE > 60.0 (>60); GLUCOSE, FASTING 82 MG/DL (70-100); HDL CHOLESTEROL 51 MG/DL (>40); IRON (FE) 90 UG/DL (50-170); LDL CHOLESTEROL 64 MG/DL (<100); NON-HDL-C 82 MG/DL; PERCENT SATURATION 23.9 % (13.2-45.0); POTASSIUM SERUM 3.9 MEQ/L (3.5-5.1); SODIUM LEVEL 142 MEQ/L (136-145); TOTAL IRON BINDING CAPACITY 377 UG/DL (250-450); TOTAL PROTEIN 6.8 GM/DL (6.4-8.2); TRIGLYCERIDES LEVEL 91 MG/DL (<150)
[2020-05-01 11:23] LABS: VITAMIN B12 LEVEL 226 PG/ML (247-911)
--- NOTE | 2020-05-04 08:47 | REP ---
PELVIC ULTRASOUND: 05/01/20. CLINICAL: Post coital bleeding and pelvic pain. TECHNIQUE: Transabdominal pelvic ultrasound followed by transvaginal examination for a better evaluation of the endometrium and adnexa with color Doppler evaluation of the ovaries. FINDINGS: The bladder is collapsed and currently measures 2.5 x 2.3 x 3.0cm. Anteverted uterus measures 6.3 x 3.6 x 5.3cm with evidence for prior cesarian section scar anteriorly noted. The endometrial complex measures 4mm thickness. No discrete uterine or endometrial abnormalities are identified. The bilateral ovaries are normal in appearance and vascularity with multiple follicles and no evidence for torsion. The right ovary measures 2.2 x 1.2 x 2.1cm (RI 0.52). The left ovary measures 2.2 x 1.6 x 0.9cm (RI 0.53). No pelvic fluid or adnexal mass lesion. IMPRESSION: Essentially normal pelvic ultrasound. MTDD
[2020-05-08 19:06] LABS: VITAMIN B1 LEVEL WHOLE BLOOD 87.8 nmol/L (66.5-200.0); VITAMIN E(ALPHA TOCOPHEROL) 8.7 mg/L (5.9-19.4); VITAMIN E(GAMMA TOCOPHEROL) 2.2 mg/L (0.7-4.9)
== END ==
LOC: M LAB 08:13
PROVIDERS: ATTEND Nurse Practitioner Adult Health
DX: E66.01 Morbid (severe) obesity due to excess calories (principal); G71.11 Myotonic muscular dystrophy; I42.9 Cardiomyopathy, unspecified; Z90.49 Acquired absence of other specified parts of digestive tract; Z90.710 Acquired absence of both cervix and uterus

== ENCOUNTER 2020-06-22 23:40 | Emergency (ER) | payer OTHER ==
[~2020-06-22] VITALS: Ht 175.3 cm; Wt 117.0 kg
[2020-06-23 01:19] LABS: BASO % 0.4 % (0.0-1.0); EOS # 0.1 10^3/uL (0.0-0.5); EOS % 0.7 % (0.0-3.0); HEMATOCRIT 42.3 % (36.0-47.0); HEMOGLOBIN 13.5 g/dl (12.0-15.5); LYMPH # 1.9 10^3/uL (1.5-5.0); LYMPH % 23.8 % (24.0-44.0); MEAN CORPUSCULAR HEMOGLOBIN 31.3 pg (27.0-33.0); MEAN CORPUSCULAR HGB CONC 31.9 g/dl (32.0-36.5); MEAN CORPUSCULAR VOLUME 98.1 fl (80.0-96.0); MONO # 0.5 10^3/uL (0.0-0.8); NEUTROPHILS # 5.6 10^3/uL (1.5-8.5); NEUTROPHILS % 68.9 % (36.0-66.0); PLATELET COUNT, AUTOMATED 186 10^3/uL (150-450); RED BLOOD COUNT 4.31 10^6/uL (4.00-5.40); WHITE BLOOD COUNT 8.1 10^3/uL (4.0-10.0)
[2020-06-23] MEDS ORDERED: ONDANSETRON 4MG/2ML VIAL IV ONE (01:30)
[2020-06-23] MEDS ORDERED: NS 1,000 ML IV ONE (01:30)
[2020-06-23] MEDS ORDERED: KETOROLAC 30 MG/ML 1ML VIAL IV ONE (01:30)
[2020-06-23] MEDS ORDERED: GI COCKTAIL 50ML BTL(HYOSCYAMINE/MAALOX/LIDOCAINE VISCOUS)(1:3:1) PO ONE (01:30)
[2020-06-23 02:16] LABS: ALBUMIN 3.9 GM/DL (3.2-5.2); ALT/SGPT 32 U/L (12-78); BILIRUBIN,DIRECT < 0.1 MG/DL (0.0-0.2); BILIRUBIN,TOTAL 0.3 MG/DL (0.2-1.0); BLOOD UREA NITROGEN 18 MG/DL (7-18); CALCIUM LEVEL 8.9 MG/DL (8.5-10.1); CARBON DIOXIDE LEVEL 26 MEQ/L (21-32); CHLORIDE LEVEL 110 MEQ/L (98-107); CREATININE FOR GFR 0.79 MG/DL (0.55-1.30); GLOMERULAR FILTRATION RATE > 60.0 (>60); GLUCOSE, FASTING 83 MG/DL (70-100); LIPASE 161 U/L (73-393); POTASSIUM SERUM 3.7 MEQ/L (3.5-5.1); SODIUM LEVEL 142 MEQ/L (136-145); TOTAL PROTEIN 7.7 GM/DL (6.4-8.2)
[2020-06-23 02:17] LABS: HCG, SERUM QUALITATIVE NEGATIVE (NEGATIVE)
[2020-06-23] MEDS ORDERED: NS IV ONE (04:30)
[2020-06-23] MEDS ORDERED: [UNRECOGNIZED DRUG - OTHER] IV ONE (04:30)
[2020-06-23] MEDS ORDERED: ISOVUE-370 76% 100ML VIAL As Ordered ONE (04:30)
[2020-06-23] MEDS ORDERED: LIDOCAINE 2% IV ONE (04:30)
--- NOTE | 2020-06-23 05:39 | REPVR ---
PROCEDURE INFORMATION: Exam: CT Abdomen And Pelvis With Contrast Exam date and time: 06/23/2020 4:44 AM Age: 29 years old Clinical indication: Abdominal pain; Epigastric; Additional info: Epigastric abd pain TECHNIQUE: Imaging protocol: Computed tomography of the abdomen and pelvis with intravenous contrast. Radiation optimization: All CT scans at this facility use at least one of these dose optimization techniques: automated exposure control; mA and/or kV adjustment per patient size (includes targeted exams where dose is matched to clinical indication); or iterative reconstruction. Contrast material: ISOVUE 370; Contrast volume: 100 ml; Contrast route: INTRA-ARTERIAL (ARTERIAL); COMPARISON: CT ABD PELVIS WITH CONTRAST 04/27/2020 12:10 PM FINDINGS: Liver: Normal. No mass. Gallbladder and bile ducts: The patient is status post cholecystectomy. There is no biliary ductal dilatation. Pancreas: Normal. No ductal dilation. Spleen: 3 mm splenic calcified granuloma seen. Adrenal glands: Normal. No mass. Kidneys and ureters: Normal. No hydronephrosis. Stomach and bowel: The patient is status post partial right colonic resection with grossly intact enterocolonic anastomosis in the right abdomen. 3 sequential areas of concentric narrowing with apparent thickening seen in the stomach. The colon is nondistended with some apparent wall thickening. Appendix: No evidence of appendicitis. Intraperitoneal space: Unremarkable. No free air. No significant fluid collection. Vasculature: Unremarkable. No abdominal aortic aneurysm. Lymph nodes: Unremarkable. No enlarged lymph nodes. Urinary bladder: Unremarkable as visualized. Reproductive: The patient is status post hysterectomy. There is no adnexal mass. Bones/joints: Unremarkable. No acute fracture. Soft tissues: There is bilateral posterior dependent atelectatic changes. IMPRESSION: 1. 3 sequential areas of concentric narrowing with apparent thickening seen in the stomach. These could be secondary to active peristalsis however focal underlying abnormalities cannot be excluded. 2. Status post partial right colectomy with grossly intact anastomosis and no CT evidence of bowel obstruction. 3. Nondistended colon with apparent thickening which could be attributed to nondistention however underlying element of colitis cannot be excluded. Correlate clinically. 4. Status post cholecystectomy and hysterectomy. Postsurgical changes seen in the pelvis. Electronically signed by: Nain Laen On 06/23/2020 05:39:19 AM
[2020-06-23 06:45] VITALS: BP 87/51
--- NOTE | 2020-06-23 09:45 | ED PDOC ---
Post-Departure Follow-Up dr ureña faxed fomral report of ct abd/p for fu Jose F Zheng MD Jun 23, 2020 09:45
== END 2020-06-23 06:50 | disposition home or self-care (01) ==
LOC: M ED 23:40
DX: G89.29 Other chronic pain (principal); R10.9 Unspecified abdominal pain; Z76.5 Malingerer [conscious simulation]; Z79.899 Other long term (current) drug therapy; Z88.8 Allergy status to other drugs, medicaments and biological substances
CPT/HCPCS: 36415; 74177; 80048; 80076; 81001; 83605; 83690; 84703; 85025; 93041; 96361; 96365; 96375; 99285; J1885; J2405; Q9967

== ENCOUNTER 2020-08-27 18:51 | Emergency (ER) | payer OTHER ==
[~2020-08-27] VITALS: Ht 175.3 cm; Wt 115.9 kg
[~2020-08-27 18:51] MED LIST changes: -AMIT25TA; +AMIT25TA17
[2020-08-27 18:53] VITALS: BP 118/68
[2020-08-27] MEDS ORDERED: MEXI15CA (18:59)
== END 2020-08-27 21:14 | disposition left against medical advice (07) ==
LOC: M ED 18:51
DX: R53.1 Weakness (principal); G43.909 Migraine, unspecified, not intractable, without status migrainosus; G71.11 Myotonic muscular dystrophy; Z76.5 Malingerer [conscious simulation]; Z79.899 Other long term (current) drug therapy; Z88.5 Allergy status to narcotic agent; Z88.8 Allergy status to other drugs, medicaments and biological substances

== ENCOUNTER → 2020-09-11 | Outpatient (CLI) | payer OTHER ==
[~2020-09-11] MED LIST changes: +MEXI15CA
--- NOTE | 2020-09-11 17:07 | REPVR ---
PROCEDURE INFORMATION: Exam: MR Cervical Spine Without Contrast Exam date and time: 09/11/2020 4:40 PM Age: 29 years old Clinical indication: Neck pain and radicular pain (radiculopathy); Cervical region; Additional info: Cervical myelopathy/radiculopathy TECHNIQUE: Imaging protocol: Multiplanar magnetic resonance images of the cervical spine without contrast. COMPARISON: CT Neck with contrast 01/29/2019 9:05 AM FINDINGS: Vertebrae: Reversal of the cervical lordosis may be positional or due to muscle spasm. No acute fracture seen. The AP spinal canal diameter is mildly diminished on a developmental basis due to shortened pedicles. There is a C6 hemangioma which is partially lipid poor. Spinal cord: Normal signal. No cord compression. There is disc desiccation from C2-C3 through C5-C6. The intervertebral disc heights are maintained. C2-C3: No significant disc disease. No significant spinal stenosis. C3-C4: No significant disc disease. No significant spinal stenosis. C4-C5: No significant disc disease. No significant spinal stenosis. C5-C6: No significant disc disease. No significant spinal stenosis. C6-C7: No significant disc disease. No significant spinal stenosis. C7-T1: No significant disc disease. No significant spinal stenosis. Soft tissues: Unremarkable. Vertebral arteries: Expected flow voids in the vertebral arteries. IMPRESSION: No evidence of stenoses or nerve root impingement. Electronically signed by: Marleny Higgins On 09/11/2020 17:08:01 PM
== END ==
LOC: M RAD 15:43
PROVIDERS: ATTEND Psychiatry & Neurology Neurology
DX: M47.12 Other spondylosis with myelopathy, cervical region (principal)

== ENCOUNTER → 2020-09-28 | Outpatient (CLI) | payer OTHER ==
[~2020-09-28] MED LIST changes: -AMIT10TA PO; +AMIT10TA7 PO
--- NOTE | 2020-09-28 13:19 | REP ---
INDICATION: MORBID (SEVERE) OBESITY DUE TO EXCESS CALORIES COMPARISON: 06/30/2019 TECHNIQUE: PA and lateral. FINDINGS: The mediastinum and cardiac silhouette are normal. The lung al are clear and without acute consolidation, effusion, or pneumothorax. The skeletal structures are intact and normal. IMPRESSION: No acute cardiopulmonary process. <Electronically signed by Nate Plasencia > 09/28/20 [id number]
--- NOTE | 2020-09-28 13:35 | ECGEPIP ---
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 : 1990 Requested By: Patricia Brar Order Number: [id number] Reading MD: Jessie Espinosa Measurements Intervals [place] Rate: 66 P: 48 TN: 202 QRS: -11 QRSD: 152 T: 92 QT: 464 QTc: 486 Interpretive Statements Normal sinus rhythm Left bundle branch block SIMILAR TO 05/01/20 Electronically Signed on 09-28-2020 13:34:44 EST by Jessie Espinosa
[2020-09-28 14:16] LABS: BASO % 0.5 % (0.0-1.0); EOS # 0.1 10^3/uL (0.0-0.5); EOS % 1.3 % (0.0-3.0); HEMATOCRIT 40.3 % (36.0-47.0); HEMOGLOBIN 12.8 g/dl (12.0-15.5); LYMPH # 1.5 10^3/uL (1.5-5.0); LYMPH % 24.7 % (24.0-44.0); MEAN CORPUSCULAR HEMOGLOBIN 32.2 pg (27.0-33.0); MEAN CORPUSCULAR HGB CONC 31.8 g/dl (32.0-36.5); MEAN CORPUSCULAR VOLUME 101.5 fl (80.0-96.0); MONO # 0.5 10^3/uL (0.0-0.8); MONO % 7.7 % (2.0-8.0); NEUTROPHILS # 3.9 10^3/uL (1.5-8.5); NEUTROPHILS % 65.5 % (36.0-66.0); PLATELET COUNT, AUTOMATED 171 10^3/uL (150-450); RED BLOOD COUNT 3.97 10^6/uL (4.00-5.40)
[2020-09-28 14:48] LABS: ALBUMIN 3.7 GM/DL (3.2-5.2); ALT/SGPT 61 U/L (12-78); BILIRUBIN,TOTAL 0.2 MG/DL (0.2-1.0); BLOOD UREA NITROGEN 17 MG/DL (7-18); CALCIUM LEVEL 8.9 MG/DL (8.5-10.1); CARBON DIOXIDE LEVEL 27 MEQ/L (21-32); CHLORIDE LEVEL 110 MEQ/L (98-107); CHOLESTEROL LEVEL 157 MG/DL (<200); CHOLESTEROL RISK RATIO 3.413 (<5); FERRITIN 17 NG/ML (8-252); GLOMERULAR FILTRATION RATE > 60.0 (>60); GLUCOSE, FASTING 75 MG/DL (70-100); HDL CHOLESTEROL 46 MG/DL (>40); IRON (FE) 55 UG/DL (50-170); LDL CHOLESTEROL 85 MG/DL (<100); NON-HDL-C 111 MG/DL; PERCENT SATURATION 13.4 % (13.2-45.0); POTASSIUM SERUM 4.6 MEQ/L (3.5-5.1); SODIUM LEVEL 142 MEQ/L (136-145); TOTAL IRON BINDING CAPACITY 411 UG/DL (250-450); TOTAL PROTEIN 7.2 GM/DL (6.4-8.2); TRIGLYCERIDES LEVEL 132 MG/DL (<150)
[2020-09-28 18:03] LABS: TOTAL 25(OH) VITAMIN D 10.8 NG/ML (30.0-100.0); VITAMIN B12 LEVEL 307 PG/ML (247-911)
== END ==
LOC: M LAB 12:14
PROVIDERS: ATTEND Nurse Practitioner Adult Health
DX: E66.01 Morbid (severe) obesity due to excess calories (principal); G71.11 Myotonic muscular dystrophy; I42.9 Cardiomyopathy, unspecified; Z90.49 Acquired absence of other specified parts of digestive tract; Z90.710 Acquired absence of both cervix and uterus

== ENCOUNTER 2020-10-20 17:30 | Emergency (ER) | payer OTHER ==
[~2020-10-20] VITALS: Ht 175.3 cm; Wt 120.6 kg
[2020-10-20] MEDS ORDERED: AMIT10TA7 (17:38)
[2020-10-20] MEDS ORDERED: K-TA10TA2 PO (17:38)
[2020-10-20] MEDS ORDERED: KETOROLAC 60MG 2ML VIAL IM ONE (18:15)
[2020-10-20] MEDS ORDERED: methocarbamoL 750 MG TAB PO ONE (18:15)
[2020-10-20] MEDS ORDERED: ROBA750T4 PO (18:18)
[2020-10-20] MEDS ORDERED: PRED20TA PO (18:18)
[2020-10-20 19:04] VITALS: BP 127/74
== END 2020-10-20 19:07 | disposition home or self-care (01) ==
LOC: M ED 17:30
DX: M54.42 Lumbago with sciatica, left side (principal); G89.29 Other chronic pain; E66.01 Morbid (severe) obesity due to excess calories; I44.0 Atrioventricular block, first degree; I42.9 Cardiomyopathy, unspecified; G71.11 Myotonic muscular dystrophy; E03.9 Hypothyroidism, unspecified; D64.9 Anemia, unspecified; Z79.899 Other long term (current) drug therapy; Z88.5 Allergy status to narcotic agent; Z88.8 Allergy status to other drugs, medicaments and biological substances; Z88.1 Allergy status to other antibiotic agents; Z86.69 Personal history of other diseases of the nervous system and sense organs; Z98.890 Other specified postprocedural states
CPT/HCPCS: 96372; 99283; J1885

== ENCOUNTER 2020-11-17 20:05 | Emergency (ER) | payer OTHER ==
[~2020-11-17] VITALS: Ht 175.3 cm; Wt 121.4 kg
[~2020-11-17 20:05] MED LIST changes: +AMIT10TA7; +K-TA10TA2 PO; +ROBA750T4 PO
[2020-11-17 21:22] LABS: BASO % 0.5 % (0.0-1.0); EOS # 0.1 10^3/uL (0.0-0.5); EOS % 1.3 % (0.0-3.0); HEMATOCRIT 41.7 % (36.0-47.0); HEMOGLOBIN 13.4 g/dl (12.0-15.5); LYMPH # 1.8 10^3/uL (1.5-5.0); LYMPH % 28.1 % (24.0-44.0); MEAN CORPUSCULAR HGB CONC 32.1 g/dl (32.0-36.5); MEAN CORPUSCULAR VOLUME 99.5 fl (80.0-96.0); MONO # 0.5 10^3/uL (0.0-0.8); MONO % 7.7 % (2.0-8.0); NEUTROPHILS # 3.9 10^3/uL (1.5-8.5); NEUTROPHILS % 61.9 % (36.0-66.0); PLATELET COUNT, AUTOMATED 199 10^3/uL (150-450); RED BLOOD COUNT 4.19 10^6/uL (4.00-5.40); WHITE BLOOD COUNT 6.3 10^3/uL (4.0-10.0)
[2020-11-17 21:51] LABS: BLOOD UREA NITROGEN 12 MG/DL (7-18); CALCIUM LEVEL 8.9 MG/DL (8.5-10.1); CARBON DIOXIDE LEVEL 28 MEQ/L (21-32); CHLORIDE LEVEL 110 MEQ/L (98-107); CREATININE FOR GFR 0.78 MG/DL (0.55-1.30); GLOMERULAR FILTRATION RATE > 60.0 (>60); GLUCOSE, FASTING 97 MG/DL (70-100); POTASSIUM SERUM 4.2 MEQ/L (3.5-5.1); SODIUM LEVEL 142 MEQ/L (136-145)
[2020-11-17] MEDS ORDERED: KETOROLAC 30 MG/ML 1ML VIAL IV ONE (22:00)
[2020-11-17] MEDS ORDERED: MAG SULF 1GM/100ML (MAG RUN) 1 GM in IV 1 EA IV ONE (22:00)
[2020-11-17] MEDS ORDERED: NS 1,000 ML IV ONE (22:00)
--- NOTE | 2020-11-18 00:16 | REPVR ---
PROCEDURE INFORMATION: Exam: MR Head Without Contrast Exam date and time: 11/17/2020 11:10 PM Age: 30 years old Clinical indication: Pain; Headache; Tension; Patient HX: H/a blurry vision and slurred speech that has since subsided, new onset of balance issues. Nki; Additional info: Dizziness; Headache TECHNIQUE: Imaging protocol: MR of the head without contrast. COMPARISON: MRI-Brain without Contrast 12/10/2016 4:45 PM FINDINGS: Brain: Few small scattered nonspecific T2/FLAIR hyperintensities of the periventricular and deep subcortical white matter. No intracranial hemorrhage or extra-axial fluid collection. No evidence of mass effect or midline shift. No restricted diffusion to suggest acute infarct. Cerebral ventricles: No ventriculomegaly. Bones/joints: Unremarkable. Paranasal sinuses: Normal as visualized. No acute sinusitis. Mastoid air cells: No mastoid effusion. Orbital cavity: Unremarkable. Soft tissues: Unremarkable. IMPRESSION: Few small scattered nonspecific T2/FLAIR hyperintensities of the periventricular and deep subcortical white matter. Differential includes but is not limited to sequela of chronic small vessel ischemic change (though this would be greater than expected for patient's age), demyelinating disease, migraine, or other chronic inflammatory white matter process. Follow-up at the discretion of neurology. Electronically signed by: Kumar Navarro On 11/18/2020 00:15:55 AM
--- NOTE | 2020-11-18 00:17 | REPVR ---
PROCEDURE INFORMATION: Exam: MRA Head Without Contrast; Arteriography Exam date and time: 11/17/2020 11:10 PM Age: 30 years old Clinical indication: Pain; Headache; Patient HX: H/a blurry vision and slurred speech that has since subsided, new onset of balance issues. Nki; Additional info: Dizziness; Headache TECHNIQUE: Imaging protocol: Magnetic resonance angiography head without contrast. Exam focused on the arteries. COMPARISON: MRI-Brain without Contrast 12/10/2016 4:45 PM FINDINGS: ANTERIOR CIRCULATION: Right internal carotid artery: Intracranial segment is patent with no significant stenosis. No aneurysm. Right middle cerebral artery: No occlusion or significant stenosis. No aneurysm. Right anterior cerebral artery: No occlusion or significant stenosis. No aneurysm. Left internal carotid artery: Intracranial segment is patent with no significant stenosis. No aneurysm. Left middle cerebral artery: No occlusion or significant stenosis. No aneurysm. Left anterior cerebral artery: No occlusion or significant stenosis. No aneurysm. POSTERIOR CIRCULATION: Right vertebral artery: No occlusion or significant stenosis. No aneurysm. Left vertebral artery: No occlusion or significant stenosis. No aneurysm. Basilar artery: No occlusion or significant stenosis. No aneurysm. Right posterior cerebral artery: No occlusion or significant stenosis. No aneurysm. Left posterior cerebral artery: No occlusion or significant stenosis. No aneurysm. IMPRESSION: No MRA evidence of intracranial arterial occlusion or significant stenosis. Electronically signed by: Kumar Navarro On 11/18/2020 00:17:31 AM
[2020-11-18] MEDS ORDERED: ONDANSETRON 4MG/2ML VIAL IV ONE (00:45)
[2020-11-18 01:15] VITALS: BP 95/55
--- NOTE | 2020-11-19 20:04 | ED PDOC ---
Post-Departure Follow-Up mri brain faxed to dr ureña for fu Jose F Zheng MD November 19, 2020 20:04
== END 2020-11-18 01:37 | disposition home or self-care (01) ==
LOC: M ED 20:05
DX: G43.909 Migraine, unspecified, not intractable, without status migrainosus (principal); K50.90 Crohn's disease, unspecified, without complications; G71.11 Myotonic muscular dystrophy; Z88.5 Allergy status to narcotic agent; Z88.8 Allergy status to other drugs, medicaments and biological substances; Z79.899 Other long term (current) drug therapy
CPT/HCPCS: 70544; 70551; 80048; 83735; 85025; 96365; 96366; 96375; 99284; J1885; J2405; J3475

== ENCOUNTER 2020-11-26 21:01 | Emergency (ER) | payer OTHER ==
[~2020-11-26] VITALS: Ht 175.3 cm; Wt 121.0 kg
[2020-11-27] MEDS ORDERED: DICYCLOMINE INJ 20MG/2ML (J0500) IM ONE (01:50)
[2020-11-27 02:01] VITALS: BP 105/68
--- NOTE | 2020-11-27 02:55 | REPVR ---
PROCEDURE INFORMATION: Exam: CT Abdomen And Pelvis Without Contrast Exam date and time: 11/27/2020 1:50 AM Age: 30 years old Clinical indication: Abdominal pain; Localized; Left lower quadrant (llq); Additional info: Llq abd pain TECHNIQUE: Imaging protocol: Computed tomography of the abdomen and pelvis without contrast. Radiation optimization: All CT scans at this facility use at least one of these dose optimization techniques: automated exposure control; mA and/or kV adjustment per patient size (includes targeted exams where dose is matched to clinical indication); or iterative reconstruction. COMPARISON: CT ABD/PEL W/IV CONTRAST ONLY 06/23/2020 4:40 AM FINDINGS: Lungs: No suspicious mass or airspace process in the visualized lung bases. Liver: Noncontrast liver shows no obvious lesion. Gallbladder and bile ducts: Gallbladder is surgically absent. Pancreas: Noncontrast pancreas shows no obvious mass or adjacent fluid. Spleen: Noncontrast spleen shows no obvious focal deformity. Adrenal glands: Adrenal glands are normal in appearance. Kidneys and ureters: Noncontrast kidneys and ureters show no stone or obstructive change. Stomach and bowel: No evidence of small bowel obstruction. No evidence of acute diverticulitis. Appendix: Appendix is not visualized. Cecal tip suture line suggests prior appendix resection. Intraperitoneal space: No pneumoperitoneum. Vasculature: No aortic aneurysm. Lymph nodes: No enlarged lymph nodes. Urinary bladder: Urinary bladder appears normal. Reproductive: Uterus is surgically absent. Bones/joints: Bony structures show no acute fracture or destructive process. Soft tissues: No concerning focal abnormality of the extra-abdominal and pelvic soft tissues. Other findings: Limited evaluation without enteric or IV contrast. IMPRESSION: No evidence of acute diverticulitis and no evidence of obstructing uropathy. No explanation for acute left lower quadrant pain. Electronically signed by: Fadi Bell On 11/27/2020 02:55:06 AM
== END 2020-11-27 03:23 | disposition left against medical advice (07) ==
LOC: M ED 21:01
DX: R10.9 Unspecified abdominal pain (principal); Z76.5 Malingerer [conscious simulation]; I50.9 Heart failure, unspecified; Z79.899 Other long term (current) drug therapy; Z88.5 Allergy status to narcotic agent; Z88.8 Allergy status to other drugs, medicaments and biological substances
CPT/HCPCS: 74176; 81001; 93041; 96372; 99284; J0500

== ENCOUNTER → 2020-12-04 | Outpatient (CLI) | payer OTHER ==
--- NOTE | 2020-12-04 16:13 | REP ---
INDICATION: LT LEG SWELLING. COMPARISON: None. TECHNIQUE: Multiple ultrasonographic images of the deep venous structures of the left thigh were obtained from the common femoral vein to the popliteal vein along with Doppler interrogation and color flow Doppler images. FINDINGS: There is no abnormal echogenic material seen within any of the visualized deep venous structures that would suggest acute thrombosis. Coaptation is unremarkable throughout. Doppler interrogation shows an expected response to respiratory variability and augmentation. The color flow images show what appears to be a normal vascular pattern throughout. IMPRESSION: There is no ultrasonographic evidence of deep venous thrombosis involving any of the visualized deep venous structures of the left thigh, as described above. <Electronically signed by Rafa Mayer > 12/04/20 1081
== END ==
LOC: M RAD 11:25
PROVIDERS: ATTEND Internal Medicine Cardiovascular Disease
DX: M79.89 Other specified soft tissue disorders (principal); R22.42 Localized swelling, mass and lump, left lower limb

== ENCOUNTER → 2020-12-18 | Outpatient (CLI) | payer OTHER ==
--- NOTE | 2020-12-18 16:43 | REP ---
INDICATION: MYOTONIC MUSCULAR DYSTROPHY / LABS FIRST, EKG SECOND COMPARISON: 09/28/2020 TECHNIQUE: PA and lateral. FINDINGS: The mediastinum and cardiac silhouette are normal. The lung al are clear and without acute consolidation, effusion, or pneumothorax. The skeletal structures are intact and normal. IMPRESSION: No acute cardiopulmonary process. <Electronically signed by Nate Plasencia > 12/18/20 1640
[2020-12-18 17:00] LABS: BASO % 0.6 % (0.0-1.0); EOS # 0.1 10^3/uL (0.0-0.5); EOS % 1.2 % (0.0-3.0); HEMATOCRIT 44.2 % (36.0-47.0); HEMOGLOBIN 13.8 g/dl (12.0-15.5); LYMPH # 1.5 10^3/uL (1.5-5.0); LYMPH % 30.1 % (24.0-44.0); MEAN CORPUSCULAR HGB CONC 31.2 g/dl (32.0-36.5); MEAN CORPUSCULAR VOLUME 102.6 fl (80.0-96.0); MONO # 0.3 10^3/uL (0.0-0.8); MONO % 6.1 % (2.0-8.0); NEUTROPHILS # 3.2 10^3/uL (1.5-8.5); NEUTROPHILS % 61.6 % (36.0-66.0); PLATELET COUNT, AUTOMATED 171 10^3/uL (150-450); RED BLOOD COUNT 4.31 10^6/uL (4.00-5.40); WHITE BLOOD COUNT 5.1 10^3/uL (4.0-10.0)
[2020-12-18 17:26] LABS: ALBUMIN 3.7 GM/DL (3.2-5.2); ALT/SGPT 44 U/L (12-78); BILIRUBIN,TOTAL 0.4 MG/DL (0.2-1.0); BLOOD UREA NITROGEN 15 MG/DL (7-18); CALCIUM LEVEL 9.3 MG/DL (8.5-10.1); CARBON DIOXIDE LEVEL 26 MEQ/L (21-32); CHLORIDE LEVEL 110 MEQ/L (98-107); CHOLESTEROL LEVEL 139 MG/DL (<200); CHOLESTEROL RISK RATIO 3.657 (<5); CREATININE FOR GFR 0.75 MG/DL (0.55-1.30); FERRITIN 21 NG/ML (8-252); GLOMERULAR FILTRATION RATE > 60.0 (>60); GLUCOSE, FASTING 78 MG/DL (70-100); HDL CHOLESTEROL 38 MG/DL (>40); IRON (FE) 73 UG/DL (50-170); LDL CHOLESTEROL 60 MG/DL (<100); NON-HDL-C 101 MG/DL; PERCENT SATURATION 18.8 % (13.2-45.0); POTASSIUM SERUM 4.1 MEQ/L (3.5-5.1); SODIUM LEVEL 142 MEQ/L (136-145); TOTAL IRON BINDING CAPACITY 389 UG/DL (250-450); TOTAL PROTEIN 7.5 GM/DL (6.4-8.2); TRIGLYCERIDES LEVEL 205 MG/DL (<150)
[2020-12-18 17:51] LABS: TOTAL 25(OH) VITAMIN D 13.7 NG/ML (30.0-100.0)
[2020-12-18 17:53] LABS: FOLATE 8.6 NG/ML (>5.4); VITAMIN B12 LEVEL 354 PG/ML (247-911)
--- NOTE | 2020-12-21 23:48 | ECGEPIP ---
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
== END ==
LOC: M LAB 15:52
PROVIDERS: ATTEND Nurse Practitioner Adult Health
DX: G71.11 Myotonic muscular dystrophy (principal); E66.01 Morbid (severe) obesity due to excess calories; I42.9 Cardiomyopathy, unspecified; Z90.49 Acquired absence of other specified parts of digestive tract; Z90.710 Acquired absence of both cervix and uterus

== ENCOUNTER 2020-12-28 01:36 | Emergency (ER) | payer OTHER ==
[~2020-12-28] VITALS: Ht 175.3 cm; Wt 122.2 kg
[~2020-12-28 01:36] MED LIST changes: +OMEP40CA4 PO; -OMEP40CA97 PO
[2020-12-28 01:37] VITALS: BP 115/77
--- NOTE | 2020-12-28 04:23 | REPVR ---
PROCEDURE INFORMATION: Exam: XR Complete Acute Abdomen Series Exam date and time: 12/28/2020 3:21 AM Age: 30 years old Clinical indication: Other: Chr abd pain; Additional info: Chr abd pain TECHNIQUE: Imaging protocol: XR complete acute abdomen series, including 2 or more views of the abdomen and a single view chest. COMPARISON: CR Chest, 2 view PA, Lat 12/18/2020 4:34 PM FINDINGS: Lungs: Normal. No consolidation. Pleural spaces: Normal. No pleural effusions. No pneumothorax. Heart/Mediastinum: Normal. No cardiomegaly. Gastrointestinal tract: Mild gaseous distention of colonic loops. Intraperitoneal space: Normal. No free air. Organs: Status post cholecystectomy. Bones/joints: Normal. No acute fracture. Soft tissues: Normal. IMPRESSION: No acute findings. Electronically signed by: Micky Claire On 12/28/2020 04:22:54 AM
[2020-12-28] MEDS ORDERED: DICYCLOMINE INJ 20MG/2ML (J0500) IM ONE (04:35)
== END 2020-12-28 04:53 | disposition home or self-care (01) ==
LOC: M ED 01:36
DX: G89.29 Other chronic pain (principal); R10.9 Unspecified abdominal pain; K50.90 Crohn's disease, unspecified, without complications; G71.11 Myotonic muscular dystrophy; E66.9 Obesity, unspecified; Z87.442 Personal history of urinary calculi; Z79.899 Other long term (current) drug therapy; Z88.5 Allergy status to narcotic agent; Z88.8 Allergy status to other drugs, medicaments and biological substances
CPT/HCPCS: 74021; 96372; 99282; J0500

== ENCOUNTER → 2021-01-01 | Outpatient (CLI) | payer OTHER ==
[~2021-01-01] MED LIST changes: -OMEP40CA4 PO; +OMEP40CA97 PO
--- NOTE | 2021-01-02 03:26 | REP ---
INDICATION: LOW BACK PAIN COMPARISON: None. TECHNIQUE: AP, lateral, bilateral oblique, and coned-down views of the lumbar spine. FINDINGS: Alignment and lordosis maintained. Vertebral bodies are intact. Disc spaces are relatively normal/age-appropriate. No acute fracture/compression injury or subluxation. No obvious spondylolysis or spondylolisthesis.. IMPRESSION: Normal Lumbosacral Spine series. <Electronically signed by Nate Plasencia > 01/02/21 5627
== END ==
LOC: M RAD 15:19 → M LAB 15:19
PROVIDERS: ATTEND Family Medicine Addiction Medicine
DX: M54.5 Low back pain (principal)

== ENCOUNTER → 2021-03-06 | Outpatient (CLI) | payer OTHER ==
[~2021-03-06] MED LIST changes: +OMEP40CA4 PO; -OMEP40CA97 PO
--- NOTE | 2021-03-06 18:14 | REP ---
INDICATION: COUGH COMPARISON: 12/18/2020. TECHNIQUE: PA/Lateral FINDINGS: Lungs: Clear, no infiltrate. Heart: Normal in size. Mediastinum: Mediastinal silhouette unremarkable. Pleural angles: Unremarkable.. Bones and soft tissues: Unremarkable. IMPRESSION: No acute pulmonary disease. <Electronically signed by J Luis Wilson > 03/06/21 6908
== END ==
LOC: M LAB 17:51
PROVIDERS: ATTEND Pediatrics
DX: R05 Cough (principal)

== ENCOUNTER → 2021-05-08 | Outpatient (CLI) | payer OTHER ==
[~2021-05-08] MED LIST changes: +ISOVUE-370 76% 100ML VIAL ONE
--- NOTE | 2021-05-08 10:27 | REP ---
INDICATION: ABD PAIN, UMBILICAL HERNIA. COMPARISON: Multiple the latest 11/27/2020 TECHNIQUE: Standard helical technique before and after the intravenous administration of 100 cc Isovue 370. The patient refused oral bowel preparatory contrast. FINDINGS: The lung bases are clear and unchanged. The pre contrast enhanced portion examination shows hepatic and splenic densities to be within normal limits. The patient is status post cholecystectomy status quo. No nephroureterolithiasis, hydronephrosis, or hydroureter has developed. Contrast-enhanced portion examination shows the liver, spleen, pancreas, adrenal glands, and kidneys to be within normal limits. The abdominal aorta and para-aortic regions are within normal limits. Postop changes are seen in the right lower quadrant status quo. There is no significant change in appearance of the bowel loops or the mesenteries. There is a tiny amount of free pelvic fluid although less than what was seen on both prior exams. Postsurgical changes are again seen in the pelvis from previous hysterectomy. There is no evidence of a mass or adenopathy. Bone window technique throughout the examination shows the osseous structures to be stable and intact. IMPRESSION: There is no evidence of acute disease or significant change compared to the prior exams with findings as described above. <Electronically signed by Rafa Mayer > 05/08/21 1024
== END ==
LOC: M PLAIMG 08:51
PROVIDERS: ATTEND Surgery
DX: R10.9 Unspecified abdominal pain (principal)
CPT/HCPCS: 74178; Q9967

== ENCOUNTER 2021-05-24 20:33 | Emergency (ER) | payer OTHER ==
[~2021-05-24] VITALS: Ht 177.8 cm; Wt 118.2 kg
[~2021-05-24 20:33] MED LIST changes: -ISOVUE-370 76% 100ML VIAL ONE
--- OUTSIDE RECORDS SUMMARY | 2021-05-24 20:41 | CCD | Continuity of Care Document ---
Author Author Toni ROSS PA Organization Unknown Address [address] [facility], [address] [place] [address] Phone [phone] Care Team Providers Care Valve Repairer Name Role Phone Ernesto Ferrer M.D. AUTM [phone] Shobha Garcia M.D. AUTM [phone] AUTM Unavailable Problems Description No Information Available Social History Type Date Description Comments Sex Unknown ETOH Use Denies alcohol use Recreational Drug Use Denies Drug Use Tobacco Use Start: Unknown Denies Smoking Allergies and adverse reactions Active Allergies Criticality Reaction | Severity Comments Date Aspirin Unable to assess criticality Difficulty breathing, Makenzie phylaxis 12/26/2016 Reglan Unable to assess criticality SYNCOPE 12/26/2016 Tramadol Unable to assess criticality SEIZURE 12/26/2016 Oral Contrast Unable to assess criticality VOMITING 12/29/2016 Medications Active Medications SIG Qnty Indications Ordering Provide r Date Vitamin D (Ergocalciferol) 1.25mg (48617 Ut) Capsules 1 tab once a week Unknown Furosemide 20mg Tablets Take One Tablet By Mouth Every Day Unknown Mexiletine HCL 150mg Capsules Take One Capsule By Mouth Twice A Day Unknown Immunizations Description No Information Available Vital Signs Date Vital Result Comment 05/20/2021 1:28pm Body Temperature 98.2 F Height 69 inches 5'9" Weight 273.25 lb BMI (Body Mass Index) 40.3 kg/m2 [place] Body Weight 145 lb Weight 123.946 kg BSA (Body Surface Area) 2.36 m2 05/01/2021 3:55pm BP Systolic 108 mmHg BP Diastolic 73 mmHg Heart Rate 71 /min Body Temperature 98.3 F Height 69 inches 5'9" Weight 269.00 lb BMI (Body Mass Index) 39.7 kg/m2 [place] Body Weight 145 lb Weight 122.018 kg BSA (Body Surface Area) 2.34 m2 Results Description No Information Available Procedures Date Code Description Status 05/01/2021 25139 Office/Outpatient New Low MDM 30 -44 Minutes Completed Medical Devices Description No Information Available Encounters Type Date Location Provider Dx Diagnosis Office Visit 05/01/2021 3:45p [facility] Benedict hartman JR, MD R10.84 Generalized abdominal pain Assessments Date Code Description Provider 05/01/2021 R10.84 Generalized abdominal pain Benedict Rincon JR, MD Plan of Treatment Future Appointment(s):* 06/05/2021 3:00 pm - Benedict Rincon JR, MD at [facility] 05/01/2021 - Benedict Rincon JR, MD* R10.84 Generalized abdominal pain* Comments: * Patient has abdominal pain in the periumbilical area lower abdominal area and with her history of carcinoid and previous surgeries I do have questions whether this is a hernia that I am not appreciating on her abdominal exam this may be secondary to her morbid obesity. Otherwise it may be mostly musculoskeletal that is giving her some problems at this time I am not seeing anything else on her exam that is concerning. And specifically were asked to address this possible umbilical hernia which I am not seeing but may be some diastases or may be hernia that is and some of this area of the pannus that I can appreciate. In any case had like to repeat the CAT scan and see what they are talking about and see what is going on in this area and hopefully this can give us better insight into intra-abdominal process as well if this is causing some of this abdominal pain and pressure that she is appreciating. If the CAT scan is negative I do feel that this is mostly musculoskeletal as an issue and if the pain increases more patient notices increasing bulging in this area we be glad to reevaluate her. If she would like a second opinion she may be able to be reevaluated by her surgeon at [facility] who performed her carcinoid surgery. Functional Status Description No Information Available Mental Status Description No Information Available Referrals Refer to Reason for Referral Status Appt Date Mckenzie MCELROY, Benedict Saleh MD UMBILICAL HERNIA Scheduled [phone] [address] [phone]
--- OUTSIDE RECORDS SUMMARY | 2021-05-24 20:42 | CCD | Continuity of Care Document ---
Author Author Jenni MONTANA MD Organization Unknown Address [address] [place] [address] [address] [place] [address] Phone [phone] Care Team Providers Care Steam Tender Name Role Phone Ernesto Ferrer MD AUTM [phone] Problems Description No Information Available Social History Type Date Description Comments Sex Unknown ETOH Use Denies alcohol use Tobacco Use Start: Unknown Patient has never smoked Allergies and adverse reactions Active Allergies Criticality Reaction | Severity Comments Date Reglin Unable to assess criticality 03/12/2020 Aspirin Unable to assess criticality 03/12/2020 Tramadol Unable to assess criticality 03/12/2020 Medications Active Medications SIG Qnty Indications Ordering Provide r Date Furosemide 20mg Tablets Unknown Immunizations Description No Information Available Vital Signs Date Vital Result Comment 05/02/2021 8:35am Body Temperature 96.7 F Height 71 inches 5'11" Weight 268.12 lb BMI (Body Mass Index) 37.4 kg/m2 03/09/2020 2:17pm Body Temperature 97.8 F Height 69 inches 5'9" Weight 249.50 lb BMI (Body Mass Index) 36.8 kg/m2 Results Description No Information Available Procedures Date Code Description Status 05/02/2021 00545 Office/Outpatient Established Mo d MDM 30-39 Min Completed 05/02/2021 81873 X-Ray Knee Complete W/Obliques & Tunnel And/Or Standing Views Completed Medical Devices Description No Information Available Encounters Type Date Location Provider Dx Diagnosis Office Visit 05/02/2021 8:30a [place] Watson Montana MD M25.561 Pain in right knee Assessments Date Code Description Provider 05/02/2021 M25.561 Pain in right knee Watson christian MD Plan of Treatment 05/02/2021 - Watson Montana MD* M25.561 Pain in right knee* New Xrays:* MRI Right Knee, Ordered: 05/02/21 * Follow up:* [facility] BOOK [facility] f/u after mri of right knee for results with [facility] Functional Status Description No Information Available Mental Status Description No Information Available Referrals Refer to Dr Reason for Referral Status Appt Date Watson Montana MD M25.561 PAIN IN RT KNEE Created [address] [facility] [facility], [address] [place] [address] [phone]
--- OUTSIDE RECORDS SUMMARY | 2021-05-24 20:42 | CCD | Continuity of Care Document ---
Author Author Jenni MONTANA MD Organization Unknown Address [address] [place] [address], [facility] [address] [place] [address] Phone [phone] Care Team Providers Care Property Valuer Name Role Phone Ernesto Ferrer MD AUTM [phone] Problems Description No Information Available Social History [...] Provide r Date Furosemide 20mg Tablets Unknown Vitamin D (Ergocalciferol) 1.25mg (89164 Ut) Capsules Manisha Carrasco MD Tobramycin-Dexamethasone 0.3-0.1% Suspension Instill One Drop Into The Left Eye Four Times A Day Unknown Methocarbamol 750mg Tablets Unknown Prednisone 20mg Tablets Unknown Cyclobenzaprine HCL 10mg Tablets Take One Tablet By Mouth Three Times A Day as Needed For Muscle Spasms For Up To Unknown Amoxicillin/Clavulanate Potassium 875-125mg Tablets Take One Tablet By Mouth Two Times Per Day For 10 Days Unknown Amitriptyline HCL 10mg Tablets Manisha Carrasco MD Ondansetron HCL 4mg Tablets Take 2 Tablets By Mouth Every 8 Hours as Needed For Nausea For Up To 7 Days Unknown Immunizations Description No Information Available Vital Signs Date Vital Result Comment 05/02/2021 8:35am Body Temperature 96.7 F Height 71 inches 5'11" Weight 268.12 lb BMI (Body Mass Index) 37.4 kg/m2 03/09/2020 2:17pm Body Temperature 97.8 F Height 69 inches 5'9" Weight 249.50 lb BMI (Body Mass Index) 36.8 kg/m2 Results Description No Information Available Procedures Date Code Description Status 05/02/2021 99538 Office/Outpatient Established Mo d MDM 30-39 Min Completed 05/02/2021 04106 X-Ray Knee Complete W/Obliques & Tunnel And/Or Standing Views Completed Medical Devices Description No Information Available Encounters Type Date Location Provider Dx Diagnosis Office Visit 05/02/2021 8:30a [place] MD M25.561 Pain in right knee [...] to Reason for Referral Status Appt Date Watson Montana MD M25.561 PAIN IN RT KNEE Created [address] [facility], [address] [place] [address] [phone]
--- OUTSIDE RECORDS SUMMARY | 2021-05-24 20:42 | CCD ---
Author Organization Unknown Address [address] [place] [address] Phone [phone] Care Team Providers Care Rac Specialist Name Role Phone [facility] 2 [phone] [facility] 2 [phone] [facility] 82 [phone] Allergies Code Code System Name Reaction Severity Status Onset 9230 RxNorm Reglan Active 01/01/2016 Tramadol Active 01/01/2016 1191 RxNorm Aspirin Active Notes: ASA Some allergies listed in Document: #[id number] could not be added to this patient's chart. Please review this document and add these allergies to the patient's chart manually as needed. Medications Name Status Start Date Stop Date Afluria Quad 60 mcg (15 mcg x 4)/0.5 mL intramuscu lar susp. Completed 03/05/2021 amitriptyline 10 mg tablet Take 1 tablet every day by oral route at bedtime for 30 days. Completed 03/05/2021 amitriptyline 25 mg tablet Completed 08/29 amoxicillin 500 mg capsule TAKE ONE CAPSULE BY MOUTH THREE TIMES A DAY Completed 05/28/2020 amoxicillin 875 mg-potassium clavulanate 125 mg tablet TAKE ONE TABLET BY MOUTH TWO TIMES PER DAY FOR 10 DAYS Completed 11/22/2020 Bactrim DS 800 mg-160 mg tablet Take 1 tablet every 12 hours by oral route for 10 days. Active Not available ciprofloxacin 500 mg tablet Completed 08/20 cyclobenzaprine 10 mg tablet TAKE ONE TABLET BY MOUTH THREE TIMES A DAY NEEDED FOR MUSCLE SPASMS FOR UP TO 5 DAYS Completed 11/22/2020 dicyclomine 10 mg capsule TAKE ONE CAPSULE BY MOUTH TWICE A DAY NEEDED FOR ABDOMINAL CRAMPS Completed 08/29/2020 doxycycline hyclate 100 mg capsule Completed 08/29/2020 furosemide 20 mg tablet TAKE ONE TABLET BY MOUTH EVERY DAY Active Not available furosemide 40 mg tablet TAKE ONE TABLET BY MOUTH EVERY DAY Completed 08/20 levothyroxine 50 mcg tablet TAKE ONE TABLET BY MOUTH EVERY DAY Completed 08/20 loperamide 2 mg capsule TAKE ONE CAPSULE BY MOUTH TWICE A DAY NEEDED FOR DIARREA FOR UP TO 10 DAYS Completed 08/29/2020 methocarbamol 750 mg tablet TAKE ONE TABLET BY MOUTH THREE TIMES A DAY Completed 11/22/2020 mexiletine 150 mg capsule TAKE ONE CAPSULE BY MOUTH TWICE A DAY Active N ot available nitrofurantoin monohydrate/macrocrystals 100 mg capsule Complete d 08/29/2020 omeprazole 20 mg capsule,delayed release TAKE ONE CAPSULE BY MOUTH EVERY MORNING Completed 08/29/2020 ondansetron 4 mg disintegrating tablet DISSOLVE ONE TABLET ON TONGUE EVERY 6 TO 8 HOURS Completed 08/29/2020 ondansetron HCl 4 mg tablet TAKE 2 TABLETS BY MOUTH EVERY 8 HOURS NEEDED FOR NAUSEA FOR UP TO 7 DAYS Completed 03/05/2021 ondansetron HCl 8 mg tablet Active Not available pantoprazole 40 mg tablet,delayed releas e TAKE ONE TABLET BY MOUTH EVERY DAY Completed 08/20 phenazopyridine 200 mg tablet Completed polyethylene glycol 3350 17 gram/dose oral powder Completed 03/05/2021 potassium chloride ER 10 mEq tablet,exte nded release TAKE ONE TABLET BY MOUTH EVERY DAY Active Not available prednisone 20 mg tablet TAKE THREE TABLETS BY MOUTH EVERY DAY Completed 0 11/22/2020 prednisone 50 mg tablet Completed 11/23/19 21 TobraDex 0.3 %-0.1 % eye ointment APPLY A SMALL AMOUNT ON EYELID TWO TIMES A DAY DIRECTED Completed 08/29/2020 tobramycin 0.3 %-dexamethasone 0.1 % eye drops,suspension INSTILL ONE DROP INTO THE LEFT EYE FOUR TIMES A DAY Completed 03/05/2021 Problems Name Status Onset Date Source Anemia Active 04/06/2015 History Muscular Dystrophy Active 04/06/2015 History Cardiomegaly Active 04/06/2015 History On Examination - Gallbladder Active 04/06/2015 His tory Abdominal Pain Unknown 04/20/2015 History Impacted Tooth Active 01/01/2016 History Disorder of Appendix Active 01/02/2016 History Epidermoid Cyst of Skin Active 12/03/2016 History Headache Active 12/03/2016 History Clinical Finding Active 05/06/2017 History Cough Active 06/16/2017 History Hematemesis Active 08/20/2017 History Chest Pain Active 08/20/2017 History Hypoglycemia Active 12/01/2017 History Acute Effect of Ultraviolet Radiation on Normal Skin Unknown 01/27/2018 History 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 History Clinical Finding Active 05/12/2018 History Syncope and Collapse Active 11/02/2018 History Cerebral Edema Active 11/22/2018 History 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 First Degree Atrioventricular Block Active 11/22/2018 History Endocrine/metabolic Screening Active 12/03/2018 Hi story Pain Active 12/03/2018 History Clinical Finding Active 12/03/2018 History Vitamin D Deficiency Active 12/31/2018 History 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 Active 07/15/2019 History Overweight Active 09/09/2019 History Pain in Thoracic Spine Active 09/09/2019 History Dizziness and Giddiness Active 09/09/2019 History Lesion of Neck Active 09/09/2019 History Chest Pain on Breathing Active 09/22/2019 History Cardiovascular Measurement - Finding Active 09/22/2019 History Melena Active 10/27/2019 History Nausea Active 11/24/2019 History Heartburn Active 11/24/2019 History Diarrhea Active 11/24/2019 History Generalized Abdominal Pain Active 02/28/2020 Histo ry Renal Impairment Active 02/28/2020 History Body Mass Index 30+ - Obesity Active 05/28/2020 Left Hemiparesis Active 08/30/2020 Low Back Pain Active 09/26/2020 Hemorrhagic Diarrhea Active 12/19/2020 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 , DNC, Loop recorder removal, hysterectomy , Appendectomy, cholecystectomy Results Lab Results Date Name Specimen Result Interpretation Description Value Range Status Address 02/26/2021 Troponin I, Serum or Plasma Normal Troponin less than 0.015 0.00-0.09 Final [facility] l: [address] [place] [address] 02/26/2021 D [facility] Normal D-dimer 0.30 mg/L 0.0- 0.50 mg/L Final [facility]: [address] [place] [address] 02/26/2021 Cepheid sars/flu/RSV RT-PCR No observatio n recorded. [facility]: [address] [place] [address] 02/26/2021 TSH Serpl dL<=0.005 mIU/L[facility] Normal TSH W/ Reflex to Free T4 4.85 u[IU]/mL 0.35-5.50 u[IU]/mL Final [facility]: [address] [place] [address] 02/26/2021 Troponin I, Serum or Plasma Normal Troponin less than 0.015 0.00-0.09 Final [facility]: [address] [place] [address] 02/26/2021 Troponin I, Serum or Plasma Normal Troponin less than 0.015 0.00-0.09 Final [facility]: [address] [place] [address] 02/25/2021 Magnesium, Serum or Plasma Normal Magnesium 2.2 mg/dL 1.3-2.7 mg/dL Final [facility] l: [address] [place] [address] 12/18/2020 CBC W/ Auto Diff Normal White Blood Count 5.1 10 4.0-10.0 10 [facility]: 0 [facility] Normal Red Blood Count 4.31 10 4.00-5.40 10 [facility]: 0 [facility] Normal Hemoglobin 13.8 g/dL 12.0-15.5 g/dL Final [facility]: 0 [facility] Normal Hematocrit 44.2 % 36.0-47.0 % [facility]: 0 [facility] High Mean Corpuscular Volume 102.6 fL 80. 0-96.0 fL Final [facility]: [address] [facility] Normal Mean Corpuscular Hemoglobin 32.0 pg 27.0-33.0 pg [facility]: 8[address] [facility] Low Mean Corpuscular HGB Conc 31.2 g/dL 32.0-36.5 g/dL [facility]: 830 [facility] Normal Red Cell Distribution Width 12.5 % 1 1.5-14.5 % [facility]: 830 [facility] Normal Platelet Count, Automated 171 10 150 -450 10 [facility]: 8[address] [facility] Normal Neutrophils % 61.6 % 36.0-66.0 % [facility]: 8[address] [facility] Normal Lymph % 30.1 % 24.0-44.0 % [facility]: 8[address] [facility] Normal Tillman % 6.1 % 2.0-8.0 % Final [facility]: 830 [facility] Normal Eos % 1.2 % 0.0-3.0 % [facility]: [address] [facility] Normal Baso % 0.6 % 0.0-1.0 % [facility]: 0 [facility] Normal Immature Granulocyte % 0.4 % 0-3.0 % [facility]: 830 [facility] Normal Nucleated Red Blood Cell % 0.0 % 0- 0 % [facility]: 830 [facility] Normal Neutrophils # 3.2 10 1.5-8.5 10 [facility]: [address] [facility] Normal Lymph # 1.5 10 1.5-5.0 10 [facility]: 0 [facility] Normal Tillman # 0.3 10 0.0-0.8 10 [facility]: [address] [facility] Normal Eos # 0.1 10 0.0-0.5 10 [facility]: [address] [facility] Normal Baso # 0.0 10 0.0-0.2 10 [facility]: [address] [facility] 12/18/2020 CMP, Serum or Plasma Normal Glucose, Fastin g 78 mg/dL 70-100 mg/dL [facility]: 83 0 [facility] Normal Blood Urea Nitrogen 15 mg/dL 7-18 mg /dL [facility]: 830 [facility] Normal Creatinine for GFR 0.75 mg/dL 0.55-1 .30 mg/dL [facility]: 830 [facility] Normal Glomerular Filtration Rate > 60.0 >6 0 [facility]: 8[address] [facility] Normal Sodium Level 142 mEq/L 136-145 mEq/L [facility]: 8[address] [facility] Normal Potassium Serum 4.1 mEq/L 3.5-5.1 mE q/L [facility]: [address] [facility] High Chloride Level 110 mEq/L 98-107 mEq/ L [facility]: 8[address] [facility] Normal Carbon Dioxide Level 26 mEq/L 21-32 mEq/L [facility]: [address] [facility] Low Anion Gap 6 mEq/L 8-16 mEq/L [facility]: 830 [facility] Normal Calcium Level 9.3 mg/dL 8.5-10.1 mg/ dL [facility]: 8[address] [facility] Normal AST/SGOT 36 U/L 7-37 U/L [facility]: 8[address] [facility] Normal ALT/SGPT 44 U/L 12-78 U/L [facility]: [address] [facility] Normal Alkaline Phosphatase 103 U/L 45-117 U/L [facility]: 8[address] [facility] Normal Bilirubin,total 0.4 mg/dL 0.2-1.0 mg /dL [facility]: 8[address] [facility] Normal Total Protein 7.5 gm/dL 6.4-8.2 gm/d L [facility]: 830 [facility] Normal Albumin 3.7 gm/dL 3.2-5.2 gm/dL Leticia l [facility]: [address] [facility] Low Albumin/globulin Ratio 1.0 1.2-2. 2 [facility]: 830 [facility] 12/18/2020 Lipid Panel, Blood High Triglycerides Lev el 205 mg/dL <150 mg/dL [facility]: 83 0 [facility] Normal Cholesterol Level 139 mg/dL <200 mg/ dL [facility]: 8[address] [facility] Low HDL Cholesterol 38 mg/dL >40 mg/dL F inal [facility]: [address] [facility] Normal LDL Cholesterol 60 mg/dL <100 mg/dL [facility]: [address] [facility] Normal Non-hdl-c 101 mg/dL [facility]: [address] [facility] Normal Cholesterol Risk Ratio 3.657 <5 [facility]: [address] [facility] 12/18/2020 TIBC (Total Iron-binding Capacity), Serum Normal Iron (Fe) 73 ug/dL 50-170 ug/dL [facility] nter: 830 [facility] Normal Total Iron Binding Capacity 389 ug/d L 250-450 ug/dL [facility]: [address] [facility] Normal Percent Saturation 18.8 % 13.2-45.0 % [facility]: [address] [facility] 12/18/2020 Vitamin B12, Serum Normal Vitamin B12 Level 354 pg/mL 247-911 pg/mL [facility]: 83 0 [facility] 12/18/2020 Folate, Serum Normal Folate 8.6 NG/mL >5.4 NG/ mL [facility]: [address] [facility] 12/18/2020 Vitamin D, 25-Hydroxy, Total, Serum Low Total 25(Oh) Vitamin D 13.7 NG/mL 30.0-100.0 NG/mL [facility] nter: 830 [facility] 12/18/2020 Ferritin, Serum or Plasma Normal Ferritin 21 NG/mL 8-252 NG/mL [facility]: [address] [facility] 12/18/2020 Vitamin B1 (Thiamine), Blood Normal Vitamin B1 Level Whole Blood 104.4 nmol/L 66.5-200.0 nmol/L [facility]: [address] [facility] 11/27/2020 UA W/ Reflex to Culture Normal Appearance, Urine Rfx clear clear [facility]: 83 0 [facility] Normal Color, Urine Rfx straw yellow [facility]: 830 [facility] Normal pH,urine Rfx 5.0 units 5.0-9.0 units [facility]: 8[address] [facility] Normal Specific [place] Ur Auto Rfx 1.003 1.002-1.035 [facility]: 8[address] [facility] Normal Protein, Urine Auto Rfx negative mg/ dL negative mg/dL [facility]: 8[address] [facility] Normal Glucose, Urine (UA) Auto Rfx n egative mg/dL negative mg/dL [facility]: 8[address] [facility] Normal Ketone, Urine Auto Rfx negative mg/d L negative mg/dL [facility]: 8[address] [facility] Normal Urobilinogen, Urine Auto Rfx 0.2 mg/ dL 0.0-2.0 mg/dL [facility]: 8[address] [facility] Normal Bilirubin, Urine Auto Rfx negative n egative [facility]: 8[address] [facility] Normal Nitrite, Urine Auto Rfx negative neg ative [facility]: 8[address] [facility] Normal Leukocyte Esterase Ur Auto Rfx negat darrell negative [facility]: 8[address] [facility] Normal Blood, Urine Blood Rfx negative nega tive [facility]: 8[address] [facility] Normal WBC, Urine Auto Rfx 0 /hpf 0-3 /hpf [facility]: 830 [facility] Normal RBC, Urine Auto Rfx 0 /hpf 0-3 /hpf [facility]: 8[address] [facility] Normal Bacteria, Urine Auto Rfx negative ne gative [facility]: 8[address] [facility] Normal Squam Epithelial Cell Ur Aurfx 1 /hp f 0-6 /hpf [facility]: 8[address] [facility] Normal Mucus, Urine Rfx small negative [facility]: 8[address] [facility] Normal Hyaline Cast, Urine Auto Rfx 0 /lpf 0-1 /lpf [facility]: [address] [facility] 11/17/2020 CBC W/ Auto Diff Normal White Blood Count 6.3 10 4.0-10.0 10 [facility]: 830 [facility] Normal Red Blood Count 4.19 10 4.00-5.40 10 [facility]: 830 [facility] Normal Hemoglobin 13.4 g/dL 12.0-15.5 g/dL [facility]: 8[address] [facility] Normal Hematocrit 41.7 % 36.0-47.0 % [facility]: 0 [facility] High Mean Corpuscular Volume 99.5 fL 80.0 -96.0 fL [facility]: 830 [facility] Normal Mean Corpuscular Hemoglobin 32.0 pg 27.0-33.0 pg [facility]: 830 [facility] Normal Mean Corpuscular HGB Conc 32.1 g/dL 32.0-36.5 g/dL [facility]: 830 [facility] Normal Red Cell Distribution Width 12.9 % 1 1.5-14.5 % [facility]: 830 [facility] Normal Platelet Count, Automated 199 10 150 -450 10 [facility]: 8[address] [facility] Normal Neutrophils % 61.9 % 36.0-66.0 % [facility]: 8[address] [facility] Normal Lymph % 28.1 % 24.0-44.0 % [facility]: 8[address] [facility] Normal Tillman % 7.7 % 2.0-8.0 % [facility]: [address] [facility] Normal Eos % 1.3 % 0.0-3.0 % [facility]: 8[address] [facility] Normal Baso % 0.5 % 0.0-1.0 % [facility]: 8[address] [facility] Normal Immature Granulocyte % 0.5 % 0-3.0 % [facility]: 8[address] [facility] Normal Nucleated Red Blood Cell % 0.0 % 0- 0 % [facility]: 8[address] [facility] Normal Neutrophils # 3.9 10 1.5-8.5 10 [facility]: [address] [facility] Normal Lymph # 1.8 10 1.5-5.0 10 [facility]: [address] [facility] Normal Tillman # 0.5 10 0.0-0.8 10 [facility]: 8[address] [facility] Normal Eos # 0.1 10 0.0-0.5 10 [facility]: [address] [facility] Normal Baso # 0.0 10 0.0-0.2 10 [facility]: [address] [facility] 11/17/2020 BMP, Serum or Plasma Normal Glucose, Fastin g 97 mg/dL 70-100 mg/dL [facility]: 83 0 [facility] Normal Blood Urea Nitrogen 12 mg/dL 7-18 mg /dL [facility]: 0 [facility] Normal Creatinine for GFR 0.78 mg/dL 0.55-1 .30 mg/dL [facility]: [address] [facility] Normal Glomerular Filtration Rate > 60.0 >6 0 [facility]: [address] [facility] Normal Sodium Level 142 mEq/L 136-145 mEq/L [facility]: [address] [facility] Normal Potassium Serum 4.2 mEq/L 3.5-5.1 mE q/L [facility]: [address] [facility] High Chloride Level 110 mEq/L 98-107 mEq/ L [facility]: [address] [facility] Normal Carbon Dioxide Level 28 mEq/L 21-32 mEq/L [facility]: [address] [facility] Low Anion Gap 4 mEq/L 8-16 mEq/L [facility]: [address] [facility] Normal Calcium Level 8.9 mg/dL 8.5-10.1 mg/ dL [facility]: [address] [facility] 11/17/2020 Magnesium, Serum or Plasma Normal Magnesium Level 2.0 mg/dL 1.8-2.4 mg/dL [facility]: 83 0 [facility] 09/28/2020 CBC W/ Auto Diff Normal White Blood Count 6.0 10 4.0-10.0 10 [facility]: 0 [facility] Low Red Blood Count 3.97 10 4.00-5.40 10 [facility]: 8[address] [facility] Normal Hemoglobin 12.8 g/dL 12.0-15.5 g/dL [facility]: 0 [facility] Normal Hematocrit 40.3 % 36.0-47.0 % [facility]: 0 [facility] High Mean Corpuscular Volume 101.5 fL 80. 0-96.0 fL [facility]: 8[address] [facility] Normal Mean Corpuscular Hemoglobin 32.2 pg 27.0-33.0 pg [facility]: 0 [facility] Low Mean Corpuscular HGB Conc 31.8 g/dL 32.0-36.5 g/dL [facility]: 8[address] [facility] Normal Red Cell Distribution Width 13.2 % 1 1.5-14.5 % [facility]: [address] [facility] Normal Platelet Count, Automated 171 10 150 -450 10 [facility]: [address] [facility] Normal Neutrophils % 65.5 % 36.0-66.0 % [facility]: [address] [facility] Normal Lymph % 24.7 % 24.0-44.0 % [facility]: [address] [facility] Normal Tillman % 7.7 % 2.0-8.0 % [facility]: [address] [facility] Normal Eos % 1.3 % 0.0-3.0 % [facility]: [address] [facility] Normal Baso % 0.5 % 0.0-1.0 % [facility]: [address] [facility] Normal Immature Granulocyte % 0.3 % 0-3.0 % [facility]: [address] [facility] Normal Nucleated Red Blood Cell % 0.0 % 0- 0 % [facility]: [address] [facility] Normal Neutrophils # 3.9 10 1.5-8.5 10 [facility]: [address] [facility] Normal Lymph # 1.5 10 1.5-5.0 10 [facility]: [address] [facility] Normal Tillman # 0.5 10 0.0-0.8 10 [facility]: [address] [facility] Normal Eos # 0.1 10 0.0-0.5 10 [facility]: [address] [facility] Normal Baso # 0.0 10 0.0-0.2 10 [facility]: [address] [facility] 09/28/2020 CMP, Serum or Plasma Normal Glucose, Fastin g 75 mg/dL 70-100 mg/dL [facility]: 83 0 [facility] Normal Blood Urea Nitrogen 17 mg/dL 7-18 mg /dL [facility]: [address] [facility] Normal Creatinine for GFR 0.80 mg/dL 0.55-1 .30 mg/dL [facility]: [address] [place] [address] Normal Glomerular Filtration Rate > 60.0 >6 0 [facility]: [address] [facility] Normal Sodium Level 142 mEq/L 136-145 mEq/L [facility]: 0 [facility] Normal Potassium Serum 4.6 mEq/L 3.5-5.1 mE q/L [facility]: 0 [facility] High Chloride Level 110 mEq/L 98-107 mEq/ L [facility]: [address] [place] [address] Normal Carbon Dioxide Level 27 mEq/L 21-32 mEq/L [facility]: [address] [place] [address] Low Anion Gap 5 mEq/L 8-16 mEq/L [facility]: [address] [place] [address] Normal Calcium Level 8.9 mg/dL 8.5-10.1 mg/ dL [facility]: 0 [facility] Normal AST/SGOT 37 U/L 7-37 U/L [facility]: 0 [facility] Normal ALT/SGPT 61 U/L 12-78 U/L [facility]: 0 [facility] Normal Alkaline Phosphatase 109 U/L 45-117 U/L [facility]: 0 [facility] Normal Bilirubin,total 0.2 mg/dL 0.2-1.0 mg /dL [facility]: 0 [facility] Normal Total Protein 7.2 gm/dL 6.4-8.2 gm/d L [facility]: 0 [facility] Normal Albumin 3.7 gm/dL 3.2-5.2 gm/dL [facility] 0 [facility] Low Albumin/globulin Ratio 1.1 1.2-2. 2 [facility]: [address] [place] [address] 09/28/2020 Lipid Panel, Blood Normal Triglycerides Lev el 132 mg/dL <150 mg/dL [facility]: 83 0 [facility] Normal Cholesterol Level 157 mg/dL <200 mg/ dL [facility]: [address] [facility] Normal HDL Cholesterol 46 mg/dL >40 mg/dL F inal [facility]: [address] [facility] Normal LDL Cholesterol 85 mg/dL <100 mg/dL Final [facility]: [address] [facility] Normal Non-hdl-c 111 mg/dL Final [facility]: [address] [facility] Normal Cholesterol Risk Ratio 3.413 <5 Final [facility]: [address] [facility] 09/28/2020 TIBC (Total Iron-binding Capacity), Serum Normal Iron (Fe) 55 ug/dL 50-170 ug/dL [facility] nter: 0 [facility] Normal Total Iron Binding Capacity 411 ug/d L 250-450 ug/dL [facility]: [address] [facility] Normal Percent Saturation 13.4 % 13.2-45.0 % [facility]: 8[address] [facility] 09/28/2020 Vitamin B12, Serum Normal Vitamin B12 Level 307 pg/mL 247-911 pg/mL [facility]: 83 0 [facility] 09/28/2020 Folate, Serum Normal Folate 7.0 NG/mL >5.4 NG/ mL [facility]: [address] [facility] 09/28/2020 Vitamin D, 25-Hydroxy, Total, Serum Low Total 25(Oh) Vitamin D 10.8 NG/mL 30.0-100.0 NG/mL [facility] nter: 830 [facility] 09/28/2020 Ferritin, Serum or Plasma Normal Ferritin 17 NG/mL 8-252 NG/mL [facility]: 0 [facility] 09/28/2020 Vitamin B1 (Thiamine), Blood Normal Vitamin B1 Level Whole Blood 109.8 nmol/L 66.5-200.0 nmol/L [facility]: [address] [facility] 05/01/2020 Vitamin E Normal Vitamin E(alpha Tocopherol ) 8.7 mg/L 5.9-19.4 mg/L Final [facility]: 83 0 [facility] Normal Vitamin E(gamma Tocopherol) 2.2 mg/L 0.7-4.9 mg/L Final [facility]: [address] [facility] 05/01/2020 Vitamin B1 (Thiamine), Blood Normal Vitamin B1 Level Whole Blood 87.8 nmol/L 66.5-200.0 nmol/L [facility]: [address] [facility] Past Encounters 03/05/2021 Steinert Myotonic Dystrophy Syndrome; First Degree Atrioventricular Block; Superficial Incisional Surgical Site Infection; Cough Maine Traore MD: [address] [place] [address], Ph. 12/19/2020 Hemorrhagic Diarrhea Ernesto Ferrer MD: [address] [place] [address], Ph. 11/22/2020 Body Mass Index 30+ - Obesity; Headache Ernesto Ferrer MD: [address] [place] [address], Ph. 11/01/2020 SARS-CoV-2 Vaccination Ernesto Ferrer MD: [address] [place] [address], Ph. 10/03/2020 SARS-CoV-2 Vaccination Ernesto Ferrer MD: [address] [place] [address], Ph. 09/26/2020 Low Back Pain Ernesto Ferrer MD: [address] [facility], [facility] [address], [place] [address], Ph. 09/06/2020 Left Hemiparesis Ernesto Ferrer MD: [address] [place] [address], Ph. 08/29/2020 Left Hemiparesis Ernesto Ferrer MD: [address] [facility], [facility] [address], [place] [address], Ph. 05/28/2020 Body Mass Index 30+ - Obesity Ernesto Ferrer MD: [address] [place] [address], Ph. Social History Tobacco Smoking Status Never Smoker Vaccine List Vaccine Type COVID-19, mRNA, LNP-S, PF, 100 mcg/0.5 m L dose 10.5 mL 10.5 mL Plan of Care Reminders Provider Appointments None recorded. Lab None recorded. Referral None recorded. Procedures None recorded. Surgeries None recorded. Imaging None recorded. Vitals 03/05/2021 04:00PM HOSPITAL DISCHARGE Height Weight BMI Blood Pressure 70 in 265 lbs 16 oz 38.2 kg/m2 106/74 mm[Hg] 12/19/2020 10:20AM TELEHEALTH 20 Height 70 in 11/22/2020 02:00PM ESTABLISHED [id number] Height Weight BMI Blood Pressure 70 in 266 lbs 4 oz 38.2 kg/m2 106/70 mm[Hg] 10/03/2020 04:35PM MODERNA 1ST DOSE COVID VACCINE Height 70 in 09/26/2020 10:20AM TELEHEALTH 20 Height 70 in 09/06/2020 08:40AM ESTABLISHED [id number] Height Weight BMI Blood Pressure 70 in 254 lbs 16 oz 36.6 kg/m2 111/73 mm[Hg] 08/29/2020 10:00AM TELEHEALTH 20 Height 70 in 05/28/2020 11:40AM ESTABLISHED [id number] Height Weight BMI Blood Pressure 70 in 255 lbs 6 oz 36.6 kg/m2 111/76 mm[Hg] 03/22/2020 Height Weight BMI Blood Pressure 70 in 256 lbs 36.86 kg/m2 94/67 mm[Hg] 02/28/2020 Height Weight BMI Blood Pressure 70 in 247 lbs 35.57 kg/m2 90/63 mm[Hg] 02/20/2020 Height Weight BMI Blood Pressure 70 in 255 lbs 4 oz 36.76 kg/m2 94/65 mm[Hg] 01/05/2020 Height Weight BMI Blood Pressure 70 in 255 lbs 8 oz 36.79 kg/m2 101/69 mm[Hg] 10/27/2019 Height 70 in 10/20/2019 Height 70 in 09/28/2019 Height Weight BMI Blood Pressure 70 in 248 lbs 2.08 oz 35.73 kg/m2 106/71 mm[H g] 09/22/2019 Height Weight BMI Blood Pressure 70 in 250 lbs 36.00 kg/m2 109/74 mm[Hg] 09/09/2019 Height Weight BMI Blood Pressure 70 in 243 lbs 6.4 oz 35.05 kg/m2 94/66 mm[Hg] 12/31/2018 Height Weight BMI Blood Pressure 70 in 224 lbs 32.26 kg/m2 103/67 mm[Hg] 12/03/2018 Height Weight BMI Blood Pressure 70 in 216 lbs 6.08 oz 31.16 kg/m2 102/70 mm[H g] 11/22/2018 Height Weight BMI Blood Pressure 70 in 213 lbs 30.67 kg/m2 111/74 mm[Hg] 11/02/2018 Height Weight BMI Blood Pressure 70 in 213 lbs 30.67 kg/m2 120/84 mm[Hg]
--- OUTSIDE RECORDS SUMMARY | 2021-05-24 20:42 | CCD | Summary of Care ---
Author Author [facility] Organization [facility] Address Unknown Phone Unavailable Care Team Providers Care Ski Instructor Name Role Phone Ernesto Ferrer MD PCP Reason for Referral * Diagnostic Radiology (Routine) Referred By Contact Referred To Contact Status Reason Specialty Diagnoses / Procedures Lemuel Mayes MD [address] [place] [address] Email: [email or web address] Authorized Radiology Diagnoses Dysfunctional voiding of urine Suprapubic discomfort P rocedures CT Abdomen Pelvis with Contrast Electronically signed by Lemuel Mayes MD at Reason for Visit * Diagnostic Radiology (Routine) Referred By Contact Referred To Contact Status Reason Specialty Diagnoses / Procedures Lemuel Mayes MD [address] [place] [address] Email: [email or web address] Authorized Radiology Diagnoses Dysfunctional voiding of urine Suprapubic discomfort P rocedures CT Abdomen Pelvis with Contrast Encounter Details Care Team Description Date Type Department Dysfunctional voiding of uri ne; Suprapubic discomfort 03/22/[address] [facility] [address] SCAN [facility] Encounter [address] [address] Allergies Comments Active Allergy Reactions Severity Noted Date Difficulty breathing Aspirin Shortness Of High 05/27/2013 Breath Rx light-headedness to PO contrast Patient denies any symptoms with IV contrast Iodinated Diagnostic Nausea Only, Medium 8 Agents Other (See Comments) "zone's out", and passes out Metoclopramide Other (See High 09/26/2013 Comments) seizure Tramadol Other (See High 04/11/2013 Comments) documented as of this encounter (statuses as of 03/23/2021) Medications End Date Status Medication Sig Dispensed Refills Start Date Active Ondansetron HCl 8 MG Oral TAKE ONE 0 Tablet (ZOFRAN) TABLET BY 0 MOUTH THREE TIMES A DAY NEEDED FOR NAUSEA AND VOMITING TAKE WITH MINIMAL AMOUNT OF FLUID 03/30/2021 Active Lidocaine 5 % External Place 1 patch 30 patch 0 0 Patch (LIDODERM) onto the skin 1 daily 12 hours on 12 hours off 03/30/2021 Active Senna 176 MG/5ML Oral Take 10 mLs 300 mL 0 02/17 Syrup (SENOKOT) by mouth 1 nightly Active Furosemide 20 MG Oral Take 20 mg by 0 Tablet (LASIX) mouth daily as needed Active Potassium Chloride Sugar Take 10 mEq 0 ER 10 MEQ Oral Tablet by mouth Extended Release (K-DUR) daily as needed documented as of this encounter (statuses as of 03/23/2021) Active Problems Problem Noted Date Flank pain 03/22/2021 Syncope 02/28/2021 Status post placement of implantable loop recorder 0 02/28/2021 Chest pain 02/26/2021 Dysfunctional voiding of urine 10/23/2020 Suprapubic discomfort 09/25/2020 Chronic low back pain without sciatica 09/25/2020 Left bundle branch block 06/19/2020 Abdominal pain, right upper quadrant 04/22/2020 Irritable bowel syndrome with both constipation and d iarrhea 12/02/2018 First degree AV block 09/05/2018 Recurrent chest pain 02/19/2018 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 Sleep study done 02/03/16 was negative for sleep apnea GERD (gastroesophageal reflux disease) 11/08/2014 Constipation 11/08/2014 Previous section 12/08/2013 Overview: Formatting of this note might be differ ent from the original. Prior CD x 2 Cardiomegaly 12/08/2013 Heart palpitations 12/08/2013 Dilated cardiomyopathy 10/15/2013 Overview: Formatting of this note might be differ ent from the original. Echo : LVEF 49% stable Implanted loop recorder: no afib or VT Re: mexiletene: The challenge will be her widened QRS. It would have to be monitored which means will have to have a reliable way to get ECGs on her. 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 Genetically confirmed 10/2012: 283 repe ats One child with congenital DM1, one unaf fected. Mild cardiomyopathy follows with Dr. Taylor hunt Delayed gastric emptying Fatigue 08/04/2012 Gastrointestinal dysmotility documented as of this encounter (statuses as of 03/23/2021) Resolved Problems Problem Noted Date Resolved Date GI bleed 08/17/2015 05/02/2020 Hematemesis 08/16/2015 08/16/2015 Upper GI bleed 08/16/2015 05/02/2020 Dysphagia 11/08/2014 05/02/2020 Overview: Formatting of this note might be differ ent from the original. Gastric emptying study negative (11/2014 ) UGI series- slow esophageal motility Upper GI + SBFT(06/2013) - showed delay ed esophageal transit and ? Abnormal position of stomach. EGD() - negative for pathologie s.. Contraceptive counseling 05/10/2014 01/13/2017 Overview: Formatting of this note might be differ ent from the original. Desires laparoscopic tubal sterilizatio n. Consent signed 05/10/14. Request for scheduling sent. Varicose veins of vulva and perineum complicating pre gnancy or puerperium 02/10/2014 01/13/2017 High-risk 10/31/2013 01/13/2017 Dizziness 05/31/2013 10/28/2013 Overview: Formatting of this note might be differ ent from the original. Cardiac loop recorder negative during e vents Tilt table test negative. EEG pending. Headache(784.0) 05/31/2013 10/28/2013 Anemia 08/04/2012 01/13/2017 documented as of this encounter (statuses as of 03/23/2021) Immunizations Name Administration Dates Next Due documented as of this encounter Social History Date Tobacco Use Types Packs/Day Years Used Never Smoker 0 Smokeless Tobacco: Never Used Comments Alcohol Use Standard Drinks/Week No 0 (1 standard drink = 0.6 o z pure alcohol) Alcohol Habits Answer Date Recorded How often do you have a drink containing alcohol? Never 06/10/2019 How many drinks containing alcohol do you have on No t asked a typical day when you are drinking? How often do you have six or more drinks on one Never 06/10/2019 occasion? Sex Assigned at Date Recorded Not on file Industry Job Start Date Occupation Not on file Not on file Not on file Date Recorded COVID-19 Exposure Response 03/22/2021 3:09 PM EDT In the last month, have you been in contact with No / Unsure someone who was confirmed or suspected to have Coronavirus / COVID-19? documented as of this encounter Last Filed Vital Signs Not on filedocumented in this encounter Plan of Treatment Care Team Description Date Type Specialty Manisha Carrasco MD [address] [place] [address] [phone] 04/25/2021 Office Visit Neurology Sgirid Frausto MBBS [address] [facility] [address] [place] [address] [phone] 05/08/2021 Telemedicine Gastroenterology Tono Mallory MD [address] [facility] [address], [address] [place] [address] [phone] 06/21/2021 Office Visit Cardiology Health Maintenance Due Date Last Done Comments Varicella Vaccines (1 of 01/13/1996 2 - 2-dose childhood series) Hepatitis B Vaccines (3 02/23/1997 12/29/1996, of 3 - 3-dose primary 12/16/1995 series) DTaP,Tdap,and Td Vaccines 1998 (1 - Tdap) Cervical Cancer Screening 11/26/2019 11/25/2016, 3 years 08/01/2014, 12/08/2013 Influenza Vaccine 04/19/2021 Pneumococcal Vaccine: 65+ 2056 Years (1 of 1 - PPSV23) MMR Vaccines Completed 12/16/1995 IPV Vaccines Aged Out 12/29/1996 No longer eligi ble based on patient's age to complete this topic HIV Screening Completed 03/14/2014, 01/06/2014, 12/22/2013 COVID-19 Vaccine Completed 11/01/2020, 10/03/2020 HIB Vaccines Aged Out No longer eligible based on patient's age to complete this topic Hepatitis A Vaccines Aged Out No longer eligibl e based on patient's age to complete this topic Pneumococcal Vaccine: Aged Out No longer eligib le based on patient's age to Pediatrics (0 to 5 Years) complete this topic and At-Risk Patients (6 to 64 Years) documented as of this encounter Implants Device Identifier Shelf Expiration Date Model / Serial / L ot Implanted Type Area Manufactur er 04/18/2022 [id number] / [id number] / Recorder Loop Reveal [employer] - Loop Left: Chest [employer] [id number] Recorder Wall [employer] Implanted: Qty: 1 on 02/28/2021 by Miladis Hua MD at OR [facility] 12/16/2016 [id number] / [id number] Clip Filshie Tubal Ligation Ti - Bilateral: COOP ER [id number] Fallopian Tube SURGICAL Implanted: Qty: 1 on 10/24/2014 by Aleida Wilson MD at OR 5E documented as of this encounter Procedures Comments Procedure Name Priority Date/Time Associated Diag nosis CT ABDOMEN PELVIS WITH Routine 03/22/2021 Dysfunc tional voiding of CONTRAST 13342 3:01 PM EDT urine Suprapubic discomfort documented in this encounter Results * CT Abdomen Pelvis with Contrast (03/22/2021 3:01 PM EDT) Specimen Impressions Performed At IMPRESSION: [facility] 1. No evidence of hydronephrosis. 2. Bilateral extrarenal pelves with mild tortuosity of the proximal right ureter, which is stable. 3. Additional chronic findings as describ ed above. Narrative Performed At CLINICAL INDICATION: Evaluate right collecting system . [facility] TECHNIQUE: Helical axial images of the abdomen and pelvis were obtained and displayed at 5 and 1.25 mm intervals. A utomated dose lowering techniques and/or adjustment according to patient size we re utilized for this exam. Intravenous contrast was administered. COMPARISON: CT abdomen and pelvis dated 02/17/2018. FINDINGS: LUNG BASES: The lung bases are clear. T here is no pleural disease. The visualized cardiac structures appear no rmal. LIVER: The liver is normal in size and attenuation. There are no focal lesions. GALLBLADDER: Patient is status post cho lecystectomy. BILE DUCTS: There is no intrahepatic or extrahepatic biliary dilation. PANCREAS: Pancreas is normal. There is no mass, ductal dilatation or surrounding inflammation. SPLEEN: There are punctate calcified gr anulomas in the spleen. There are 2 splenules. ADRENALS: The adrenals are normal in si ze and shape. KIDNEYS: There is normal enhancement an d excretion of contrast in both kidneys. There is a right extrarenal pelvis with tortuosity of the ureter in the proximal segment which appears unchanged from pr ior study. There is a left renal pelvis. There is no hydronephrosis, renal stone , or focal lesion in either kidney. Visualized ureters are normal. STOMACH AND BOWEL: The stomach, duodenu m, and small bowel are normal. There is no bowel wall thickening or dilated bow el loops. There are stable post surgical changes in the right colon. LYMPH NODES: There is no lymphadenopath y. BLADDER: The bladder is normal without wall thickening or bladder stones. REPRODUCTIVE ORGANS: Patient is status post hysterectomy. VESSELS: The abdominal aorta is normal in course and caliber. ABDOMINAL WALL: There is a small fat-co ntaining umbilical hernia. FREE FLUID/AIR: There is no evidence of free fluid or free air. BONES: There is no acute fracture or di slocation. There are no suspicious lytic or blastic osseous lesions. Procedure Note Interface, Received Via [employer] System - 03/22/2021 5:40 PM EDT CLINICAL INDICATION: Evaluate right collecting system. TECHNIQUE: Helical axial images of the abdomen and pelvis were obtained and displayed at 5 and 1.25 mm intervals. Automated dose lowering techniques and/or adjustment according to patient size were utilized for this exam. Intravenous contrast was administered. COMPARISON: CT abdomen and pelvis dated 02/17/2018. FINDINGS: LUNG BASES: The lung bases are clear. There is no pleural disease. The visualized cardiac structures appear normal. LIVER: The liver is normal in size and attenuation. There are no focal lesions. GALLBLADDER: Patient is status post cholecystectomy. BILE DUCTS: There is no intrahepatic or extrahepatic biliary dilation. PANCREAS: Pancreas is normal. There is no mass, ductal dilatation or surrounding inflammation. SPLEEN: There are punctate calcified granulomas in the spleen. There are 2 splenules. ADRENALS: The adrenals are normal in size and shape. KIDNEYS: There is normal enhancement and excretion of contrast in both kidneys. There is a right extrarenal pelvis with tortuosity of the ureter in the proximal segment which appears unchanged from prior study. There is a left renal pelvis. There is no hydronephrosis, renal stone, or focal lesion in either kidney. Visualized ureters are normal. STOMACH AND BOWEL: The stomach, duodenum, and small bowel are normal. There is no bowel wall thickening or dilated bowel loops. There are stable post surgical changes in the right colon. LYMPH NODES: There is no lymphadenopathy. BLADDER: The bladder is normal without wall thickening or bladder stones. REPRODUCTIVE ORGANS: Patient is status post hysterectomy. VESSELS: The abdominal aorta is normal in course and caliber. ABDOMINAL WALL: There is a small fat-containing umbilical hernia. FREE FLUID/AIR: There is no evidence of free fluid or free air. BONES: There is no acute fracture or dislocation. There are no suspicious lytic or blastic osseous lesions. IMPRESSION: 1. No evidence of hydronephrosis. 2. Bilateral extrarenal pelves with mil d tortuosity of the proximal right ureter, which is stable. 3. Additional chronic findings as descr ibed above. Performing Organization Address City/State/ZIP Code P brandon Number [facility] [address] [place] [address] documented in this encounter Visit Diagnoses Diagnosis Dysfunctional voiding of urine Unspecified disorder of urethra and uri nary tract Suprapubic discomfort Abdominal pain, other specified site documented in this encounter Administered Medications Action Date Dose Rate Site Medication Order MAR Action 03/22/2021 3:00 PM EDT 100 mLs iohexol (OMNIPAQUE) 300 MG/ML contrast Given injection 100 mL 100 mL, Intravenous, 1 TIME IMAGING, On Thu03/22/21 at 1500, For 1 dose, Imaging Protocol documented in this encounter
--- OUTSIDE RECORDS SUMMARY | 2021-05-24 20:42 | CCD | Continuity of Care Document ---
Author Author Toni RINCON MD Organization Unknown Address [address] [facility] [address] [place] [address] Phone [phone] Care Team Providers Care Anatomic Pathology Manager Name Role Phone Ernesto Ferrer M.D. AUTM [phone] Shobha Garcia M.D. AUTM [phone] AUTM Unavailable Problems Description No Information Available [...] Provide r Date Vitamin D (Ergocalciferol) 1.25mg (17742 Ut) Capsules 1 tab once a week Unknown Furosemide 20mg Tablets Take One Tablet By Mouth Every Day Unknown Mexiletine HCL 150mg Capsules Take One Capsule By Mouth Twice A Day Unknown Immunizations Description No Information Available Vital Signs Date Vital Result Comment 05/01/2021 3:55pm BP Systolic 108 mmHg BP Diastolic 73 mmHg Heart Rate 71 /min Body Temperature 98.3 F Height 69 inches 5'9" Weight 269.00 lb BMI (Body Mass Index) 39.7 kg/m2 Lee Body Weight 145 lb Weight 122.018 kg BSA (Body Surface Area) 2.34 m2 10/09/2017 11:11am BP Systolic 92 mmHg BP Diastolic 62 mmHg Height 69 inches 5'9" Weight 218.00 lb BMI (Body Mass Index) 32.2 kg/m2 Lee Body Weight 145 lb Weight 98.885 kg BSA (Body Surface Area) 2.14 m2 Results Description No Information Available Procedures Description No Information Available Medical Devices Description No Information Available Encounters Description No Information Available Assessments Description No Information Available Plan of Treatment No Information Available Functional Status Description No Information Available Mental Status Description No Information Available Referrals Refer to Reason for Referral Status Appt Date Benedict Rincon JR, MD UMBILICAL HERNIA Scheduled [address] [place] [id number] [phone]
--- OUTSIDE RECORDS SUMMARY | 2021-05-24 20:42 | CCD | Summary of Care ---
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 Office Visit [facility] [address] [facility] 5th Floor, [address] [place] [address] Allergies Comments Active Allergy Reactions Severity Noted [...] as of this encounter (statuses as of 04/08/2021) Medications End Date Status Medication Sig Dispensed Refills Start Date Active Ondansetron HCl 8 MG Oral TAKE ONE 0 /0 Tablet (ZOFRAN) TABLET BY 0 MOUTH THREE TIMES A DAY NEEDED FOR NAUSEA AND VOMITING TAKE WITH MINIMAL AMOUNT OF FLUID Active Furosemide 20 MG Oral Take 20 mg by 0 Tablet (LASIX) mouth daily as needed Active Potassium Chloride Sugar Take 10 mEq 0 ER 10 MEQ Oral Tablet by mouth Extended Release (K-DUR) daily as needed 03/30/2021 Lidocaine 5 % External Place 1 patch 30 patch 0 0 Patch (LIDODERM) onto the skin 1 daily 12 hours on 12 hours off 03/30/2021 Senna 176 MG/5ML Oral Take 10 mLs 300 mL 0 02/17 Syrup (SENOKOT) by mouth 1 nightly documented as of this encounter (statuses as of 04/08/2021) Active Problems Problem Noted Date Flank pain [...] as of this encounter (statuses as of 04/08/2021) Resolved Problems Problem Noted Date Resolved Date [...] as of this encounter (statuses as of 04/08/2021) Immunizations Name Administration Dates Next Due documented as of this encounter Social History Date Tobacco Use Types Packs/Day Years Used Never Smoker 0 Smokeless Tobacco: Never Used Comments Alcohol Use Standard Drinks/Week No 0 (1 standard drink = 0.6 o z pure alcohol) Alcohol Habits Answer Date Recorded How often do you have a drink containing alcohol? Never 10/09/2020 How many drinks containing alcohol do you have on No t asked a typical day when you are drinking? How often do you have six or more drinks on one Never 10/09/2020 occasion? Sex Assigned at Date Recorded Not [...] of this encounter Last Filed Vital Signs Reading Time Taken Comments Vital Sign 112/76 03/15/2021 4:14 PM EDT Blood Pressure 67 03/15/2021 4:07 PM EDT Pulse - - Temperature 14 03/15/2021 4:07 PM EDT Respiratory Rate 97% 03/15/2021 4:07 PM EDT Oxygen Saturation - - Inhaled Oxygen Concentration 123.4 kg (272 lb) 03/15/2021 4:07 PM EDT Weight 175.3 cm (5' 9") 03/15/2021 4:07 PM EDT Height 40.17 03/15/2021 4:07 PM EDT Body Mass Index documented in this encounter Progress Notes * Tono Mallory MD - 03/15/2021 4:00 PM EDT Images from the original note were not included. CARDIOLOGY OFFICE NOTE March 15, 2021 REASON FOR VISIT: follow up after hospital stay Ms. Cortez is a 30 y.o. 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 She has a chronic LBBB. She has recurrent complaints of chest pain, palpitations and sync ope that occur at various times. The work up of these issues have been unremark able in the past. She presented to an outside hospital 02/25 with complaints of c hest pain, shortness of breath and dizziness. She also reported her saturation was 82% on room air. Her saturations were good on room air. She was then trans ferred to [facility] on February 26. Her cardiac work-up was remarkable primarily for a reported decrease in her ejection fraction. She had had a CTA o f her thorax which was negative for any pulmonary emboli. Because of her compla ints of syncope, they ultimately decided to put in another loop recorder. She p reviously had one placed in 2012 which did not yield any significant arrhythmias . It was ultimately explanted. It should also be noted that prior to this she had called the office in part because she thought she may require a pacemaker. She has noted 26 episodes of symptoms since implant of the ILR. No rhythm issue s were noted. After she was discharged from [facility], she underwent a sleep study. When she awoke from her sleep study she was complaining of chest discomfort and shortness of breath. She was sent from the sleep study to [facility]. It jamil ears that they did an observation stay including doing a nuclear stress test. T he results were slightly equivocal but there was no significant ischemia, her tr oponin levels were negative and she was discharged. CARDIAC HISTORY: Implanted Loop Recorder (17-Mar-2013): Medtronic Reveal XT implanted loop recorder implanted 03/17/2013 for palpitations . Holter Monitor Sep-2018: Ms. Toni Cortez underwent a Holter monitor, starting 17-Sep-2018, for a total of 48 hours. The basic rhythm throughout was sinus. Her heart rate ranged from 50 to 139 BPM, with a 48 hour average of 77 BPM. Approximately 11% of the recording recorded a heart rate greater than 100 BPM, w ith only 1% of the time less than 60. There were 5 isolated ectopic ventricular beats. There were 2 isolated supraventricular beats. No diary was returned, but there were 11 patient event markers triggered. Th e rhythm was sinus for each with heart rates ranging from 72 to 99 BPM. Last ECHO 28-Feb-2021: Previous Study Comparison Overview: Compared with the findings of the prior study, the following changes were noted: Previous Study Date: 02/24/2020 LV Function: Left ventricular systolic function has decreased Findings Left Ventricle: Left ventricle is mildly dilated. Left ventricular wall thickness is normal. Mod erately reduced systolic left ventricular function. EF evaluated by EF (biplane method of disks). There is moderate diffus e hypokinesis. Grade 1 diastolic dysfunction (impaired relaxation with low to normal filling pressure). Left Ventricular Measurements LVEF, BP: 32 %. Right Ventricle: Right ventricle is enlarged. Right ventricular systolic function is normal. Left Atrium: The left atrium size by volume measurement is normal (16-34 ml/m2) . Left Atrium Measurements LAESV index, BP: 16.4 ml/m. Right Atrium: The right atrium size by volume measurement is normal. Right Atrium Measurements RA Index: 8.0 ml/m. Mitral Valve: Mitral valve appears structurally normal. Trivial mitral regurgitation. Aortic Valve: The aortic valve is trileaflet. No aortic regurgitation. There is no aortic sten osis. Tricuspid Valve: The tricuspid valve appears structurally normal. Trivial tricuspid regurgitation . There is insufficient TR to estimate PA systolic pressure.. Pulmonic Valve: The Pulmonic valve appears structurally normal. Mild pulmonic valve regurgitatio n is present. Aorta: The aortic root measures 3.0 cm. The aortic root is normal in size. The ascendin g aorta measures 2.6 cm. Aorta Measurements Ao Sinus Valsalva: 3.0 cm. Great Vessels: IVC: The inferior vena cava is poorly visualized. Pericardium: No pericardial effusion. Cardiac Event Monitor Apr-2020: Sinus Rhythm, rates 38-140 bpm No Atrial Fibrillation 7 symptom episodes, which correlated to Sinus Rhythm rates 60-87 bpm 1 episode of SVT, rate 137 bpm 1 episode of 1stdegree AV block, rate 45 bpm 1 episode ofjunctional rhythm ended with a pause before returning to sinus Last EKG 18-Jun-2020: Sinus Rhythm with 1stdegree AV block, rate 71 bpm Left Bundle Branch Block Abnormal EKG MEDICATIONS: Current Outpatient Medications Medication Sig Furosemide 20 MG Oral Tablet (LASIX) Take 20 mg by mouth daily as needed Ondansetron HCl 8 MG Oral Tablet (ZOFRAN) TAKE ONE TABLET BY MOUTH THREE TIMES A DAY NEEDED FOR NAUSEA AND VOMITING TAKE WITH MINIMAL AMOUNT OF FLUID Potassium Chloride Sugar ER 10 MEQ Oral Tablet Extended Release (K-DUR) Ta ke 10 mEq by mouth daily as needed Lidocaine 5 % External Patch (LIDODERM) Place 1 patch onto the skin daily 12 hours on 12 hours off (Patient not taking: Reported on 03/15/2021) Senna 176 MG/5ML Oral Syrup (SENOKOT) Take 10 mLs by mouth nightly (Patie nt not taking: Reported on 03/15/2021) ALLERGIES: Allergies Allergen Reactions Aspirin Shortness Of Breath Difficulty breathing Reglan [Metoclopramide] Other (See Comments) "zone's out", and passes out Tramadol Other (See Comments) seizure Omnipaque [Iodinated Diagnostic Agents] Nausea Only and Other (See Commen ts) Rx light-headedness to PO contrast Patient denies any symptoms with IV contrast PMH : Past Medical History: Diagnosis Date Abnormal Pap smear Allergy, unspecified not elsewhere classified Anemia 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 Blood transfusion without reported diagnosis 2011 anemia Cardiomyopathy Cholelithiasis Gastrointestinal dysmotility Kidney stone 2015 Myotonic dystrophy, type 1 Palpitations Thyroid disease hypothyroid SURGICAL HISTORY: Past Surgical History: Procedure Laterality Date ABDOMINAL SURGERY APPENDECTOMY 12/24/2017 appendiceal carcinoid cardiac loop recorder implant 03/17/13 SECTION X 3 CHOLECYSTECTOMY, LAPAROSCOPIC N/A /05/18/15 Dr Suresh @ [facility] ELBOW SURGERY Left 1995 EYE SURGERY cyst removed FRACTURE SURGERY LEFT ARM TODDLER HYSTERECTOMY LOOP INSERTION OVARIAN CYST DRAINAGE 2012 IN COLONOSCOPY W/BIOPSY SINGLE/MULTIPLE N/A 02/20/2018 Procedure: COLONOSCOPY, FLEXIBLE, PROXIMAL TO SPLENIC FLEXURE W/BX, SINGLE/MULT IPLE; Surgeon: Mary Dyson MD; Location: OR ENDO; Service: Endoscopy; Laterality: N/A; IN EGD TRANSORAL BIOPSY SINGLE/MULTIPLE N/A 08/17/2015 Procedure: UPPER GI ENDOSCOPY W/BX, SINGLE/MULTIPLE; Surgeon: Coreen Valiente MD; Location: OR ENDO; Service: Endoscopy; Laterality: N/A; IN ENDOSCOPY UPPER SMALL INTESTINE N/A 04/08/2016 Procedure: SMALL INTESTINAL ENDO/ENTEROSCOPY, > 2ND PORTION DUODENUM, NOT W/ILEUM DX W/WO SPECIMEN (SEP PROC); Surgeon: Bruno Pavon MD; Location: OR ENDO; Service: Endoscopy; Laterality: N/A; IN ENDOSCOPY UPPER SMALL INTESTINE W/BIOPSY N/A 04/08/2016 Procedure: SMALL INTESTINAL ENDO/ENTEROSCOPY, > 2ND PORTION DUODENUM, NOT W/ILEUM W/BX, SINGLE/MULTIPLE; Surgeon: Bruno Pavon MD; Location: OR ENDO; Service: Endoscopy; Laterality: N/A; IN ESOPHAGOGASTRODUODENOSCOPY TRANSORAL DIAGNOSTIC N/A 08/17/2015 Procedure: UPPER GI ENDOSCOPY; DX, W/WO SPECIMEN COLLECTION, BRUSHING/WASHING ( SEP PROC); Surgeon: Coreen Valiente MD; Location: OR ENDO; Service: Endoscopy; Laterality: N/A; IN LAP,RMV ADNEXAL STRUCTURE Bilateral 06/04/2017 Procedure: Total Laparoscopic Hysterectomy,Bilateral Salpingectomy, Cystoscopy/ per DR BAER; Surgeon: Cory Baer MD; Location: OR 5E; Service: Gynecology; Laterality: Bilateral; IN LAP,TUBAL CAUTERY Bilateral 10/24/2014 Procedure: Laparoscopic Bilateral Tubal Ligation with filshie clips per Dr Gilson hay ; Surgeon: Aledia Wilson MD; Location: OR 5E; Service: Gynecology; L aterality: Bilateral; IN RMVL IMPLANTABLE PT-ACTIVATED CAR EVENT RECORDER N/A 04/07/2017 Procedure: RMVL IMPLANTABLE PT-ACTIVATED CAR EVENT RECORDER; Surgeon: Miladis avery MD; Location: OR [facility]; Service: Cardiology; Laterality: N/A; TUBAL LIGATION UPPER GASTROINTESTINAL ENDOSCOPY 05/18/2013 gastritis, 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, also not ed on UGI FAMILY HISTORY: Family History Problem Relation Age of Onset Heart disease Maternal Grandfather Alzheimer's disease Paternal Grandfather Thyroid disease Brother Heart disease Mother GERD Mother Diabetes Father Intellectual Disability Brother SOCIAL HISTORY: Social History Socioeconomic History Marital status: Single Spouse name: Not on file Number of children: 3 Years of education: 12 Highest education level: Not on file Occupational History Employer: UNEMPLOYED Tobacco Use Smoking status: Never Smoker Smokeless tobacco: Never Used Vaping Use Vaping Use: Never used Substance and Sexual Activity Alcohol use: No Drug use: No Sexual activity: Not Currently Partners: Male control/protection: Surgical, I.U.D. Social Determinants of Health Physical Activity: Days of Exercise per Week: Minutes of Exercise per Session: Stress: Feeling of Stress : ROS: Review of Systems Constitutional: Positive for malaise/fatigue. Negative for chills and fever. HENT: Positive for congestion. Eyes: Positive for visual disturbance. Cardiovascular: Positive for chest pain, dyspnea on exertion, leg swelling, near -syncope, palpitations and syncope. Respiratory: Positive for shortness of breath. Negative for cough and wheezing. Hematologic/Lymphatic: Does not bruise/bleed easily. Musculoskeletal: Positive for falls, muscle cramps and muscle weakness. Gastrointestinal: Positive for bloating, dysphagia and nausea. Genitourinary: Negative for dysuria. Neurological: Positive for focal weakness, headaches, loss of balance and weakne ss. PHYSICAL EXAM: Vitals: 08/27/21 1607 03/15/21 1614 BP: 109/76 112/76 BP Location: Left arm Right arm Patient Position: Sitting Sitting Cuff size: Adult Large Adult Large Pulse: 67 Resp: 14 SpO2: 97% Weight: 123.4 kg (272 lb) Height: 1.753 m Physical Exam Vitals and nursing note reviewed. Constitutional: General: She is not in acute distress. Appearance: She is well-developed. HENT: Head: Normocephalic and atraumatic. Eyes: General: No scleral icterus. Extraocular Movements: Extraocular movements intact. Conjunctiva/sclera: Conjunctivae normal. Pupils: Pupils are equal, round, and reactive to light. Neck: Vascular: No carotid bruit or JVD. Cardiovascular: Rate and Rhythm: Normal rate and regular rhythm. Extrasystoles are present. Pulses: Intact distal pulses. Carotid pulses are 2+ on the right side and 2+ on the left side. Heart sounds: S1 normal and S2 normal. No murmur heard. No friction rub. No gallop. Pulmonary: Effort: Pulmonary effort is normal. Breath sounds: Normal breath sounds. No wheezing, rhonchi or rales. Chest: Chest wall: No tenderness (ILR site is benign. She had called previously with drainage from site.). Abdominal: General: Abdomen is flat. Bowel sounds are normal. There is no distension. Palpations: Abdomen is soft. Skin: General: Skin is warm and dry. Neurological: Mental Status: She is alert and oriented to person, place, and time. Psychiatric: Mood and Affect: Affect is blunt. Behavior: Behavior normal. Thought Content: Thought content normal. Judgment: Judgment normal. 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 Cardiomyopathy - will follow up on the echo; EF was reported as lower. Her BP i s chronically low so adding anything may be difficult. Her rhythm risk is VT bu t also heart block so even a low dose beta-belkys would be a problem. If her E F remains less thatn 35% then she she may require further intervention. Syncope - nothing on ILR thus far. Tono Mallory MD [facility] documented in this encounter Nursing Notes * Carly Munoz RN - 03/15/2021 4:00 PM EDT 2 week follow-up appointment with MDT ILR check. documented in this encounter Plan of Treatment Care Team Description Date Type Specialty Manisha Carrasco MD [address] [place] [address] [phone] 04/25/2021 Office Visit Neurology Sigrid Frausto MBBS [address] [facility] [address] [place] [address] [phone] 05/08/2021 Telemedicine Gastroenterology Tono Mallory MD [address], [address] [place] [address] [phone] 06/21/2021 Office Visit Cardiology Health Maintenance Due [...] ot Implanted Type Area Manufactur er 04/18/2022 [id number] / [id number] / Recorder Loop Reveal Lin[employer]lin[employer] - Loop Left: Chest [employer] [id number] Recorder Wall [employer] Implanted: Qty: 1 on 02/28/2021 by Miladis Hua MD at OR [facility] 12/16/2016 [id number] / [id number] Clip Filshie Tubal Ligation Ti - Bilateral: COOP ER [id number] Fallopian Tube SURGICAL Implanted: Qty: 1 on 10/24/2014 by Aleida Wilson MD at OR [facility] documented as of this encounter Results Not on filedocumented in this encounter Visit Diagnoses Diagnosis Dilated cardiomyopathy - Primary Other primary cardiomyopathies Syncope, unspecified syncope type Myotonic dystrophy, type 1 Myotonic muscular dystrophy documented in this encounter
--- OUTSIDE RECORDS SUMMARY | 2021-05-24 20:42 | CCD | Continuity of Care Document ---
Author Author Toni RINCON MD Organization Unknown Address [address] [facility] [address] [place] [address] Phone [phone] Care Team Providers Care Events Director Name Role Phone Ernesto Ferrer M.D. AUTM [phone] Shobha Garcia M.D. AUTM [phone] AUTM Unavailable Problems Description No Information Available [...] Provide r Date Vitamin D (Ergocalciferol) 1.25mg (41813 Ut) Capsules 1 tab once a week [...] lb BMI (Body Mass Index) 39.7 kg/m2 [place] Body Weight 145 lb Weight 122.018 kg BSA (Body Surface Area) 2.34 m2 10/09/2017 11:11am BP Systolic 92 mmHg BP Diastolic 62 mmHg Height 69 inches 5'9" Weight 218.00 lb BMI (Body Mass Index) 32.2 kg/m2 [place] Body Weight 145 lb Weight 98.885 kg [...] Rincon JR, MD UMBILICAL HERNIA Scheduled [address] [place] [phone]
--- OUTSIDE RECORDS SUMMARY | 2021-05-24 20:42 | CCD ---
Author Organization Unknown Address [address] [place] [address] Phone [phone] Care Team Providers Care Cardiac Surgeon Name Role Phone [facility] 2 [phone] [facility] 2 [phone] [facility] 82 [phone] Allergies Code Code System Name Reaction Severity Status Onset 9230 RxNorm Reglan Active 01/01/2016 Tramadol Active 01/01/2016 1191 RxNorm Aspirin Active Notes: ASA Some allergies listed in Document: #[id number] could not be added to this patient's [...] PER DAY FOR 10 DAYS Completed 11/22/2020 ciprofloxacin 500 mg tablet Completed 08/20 cyclobenzaprine [...] Completed 03/05/2021 ondansetron HCl 8 mg tablet Completed 03/21 pantoprazole 40 mg tablet,delayed releas e TAKE [...] 11/22/2020 prednisone 50 mg tablet Completed 11/23/19 sulfamethoxazole 800 mg-trimethoprim 160 mg tablet Completed 04/08/2021 TobraDex 0.3 %-0.1 % eye ointment APPLY [...] Information not available 09/26/2020 XR, Lumbar Spine [facility] [address] [place] [address] ([address]) 03/05/2021 XR, Chest, 2 View [facility] [address] [place] [address] (Work Place) Notes: Tubes Tied, 3 c-sections 2008, 2013, heart recorder implanted 02/2013, Denies any prior history of complications from anesthesia. , DNC, Loop recorder removal, hysterectomy , Appendectomy, cholecystectomy Results Lab Results Date Name Specimen Result Interpretation Description Value Range Status Address 02/26/2021 Troponin I, Serum or Plasma Normal Troponin less than 0.015 0.00-0.09 Final [facility]: [address] [place] [address] 02/26/2021 D [facility] Normal D-dimer 0.30 mg/L 0.0- 0.50 mg/L Final [facility]: [address] [place] [address] 02/26/2021 Cepheid sars/flu/RSV RT-PCR No observatio n recorded. [facility]: [address] [place] [address] 02/26/2021 TSH Serpl dL<=0.005 mIU/L[facility] Normal TSH W/ Reflex to Free T4 4.85 u[IU]/mL 0.35-5.50 u[IU]/mL Final [facility]: [address] [place] [address] 02/26/2021 Troponin I, Serum or Plasma Normal Troponin less than 0.015 0.00-0.09 Final [facility] l: [address] [place] [address] 02/26/2021 Troponin I, Serum or Plasma Normal Troponin less than 0.015 0.00-0.09 Final [facility]: [address] [place] [address] 02/25/2021 Magnesium, Serum or Plasma Normal Magnesium 2.2 mg/dL 1.3-2.7 mg/dL Final [facility] l: [address] [place] [address] 12/18/2020 CBC W/ Auto Diff Normal White Blood Count 5.1 10 4.0-10.0 10 [facility]: 0 [facility] Normal Red Blood Count 4.31 10 4.00-5.40 10 [facility]: 0 [facility] Normal Hemoglobin 13.8 g/dL 12.0-15.5 g/dL [facility]: 0 [facility] Normal Hematocrit 44.2 % 36.0-47.0 % [facility]: 0 [facility] High Mean Corpuscular Volume 102.6 fL 80. 0-96.0 fL [facility]: [address] [facility] Normal Mean Corpuscular Hemoglobin 32.0 pg 27.0-33.0 pg [facility]: 830 [facility] Low Mean Corpuscular HGB Conc 31.2 g/dL 32.0-36.5 g/dL [facility]: 830 [facility] Normal Red Cell Distribution Width 12.5 % 1 1.5-14.5 % [facility]: 830 [facility] Normal Platelet Count, Automated 171 10 150 -450 10 [facility]: 830 [facility] Normal Neutrophils % 61.6 % 36.0-66.0 % [facility]: 8[address] [facility] Normal Lymph % 30.1 % 24.0-44.0 % [facility]: 830 [facility] Normal [place] % 6.1 % 2.0-8.0 % [facility]: 8[address] [facility] Normal Eos % 1.2 % 0.0-3.0 % [facility]: 8[address] [facility] Normal Baso % 0.6 % 0.0-1.0 % [facility]: 0 [facility] Normal Immature Granulocyte % 0.4 % 0-3.0 % [facility]: 830 [facility] Normal Nucleated Red Blood Cell % 0.0 % 0- 0 % [facility]: 830 [facility] Normal Neutrophils # 3.2 10 1.5-8.5 10 [facility]: [address] [facility] Normal Lymph # 1.5 10 1.5-5.0 10 [facility]: [address] [facility] Normal [place] # 0.3 10 0.0-0.8 10 [facility]: [address] [facility] Normal Eos # 0.1 10 0.0-0.5 10 [facility]: 8[address] [facility] Normal Baso # 0.0 10 0.0-0.2 10 [facility]: 830 [facility] 12/18/2020 CMP, Serum or Plasma Normal Glucose, Fastin g 78 mg/dL 70-100 mg/dL [facility]: 83 0 [facility] Normal Blood Urea Nitrogen 15 mg/dL 7-18 mg /dL [facility]: 8[address] [facility] Normal Creatinine for GFR 0.75 mg/dL 0.55-1 .30 mg/dL [facility]: [address] [facility] Normal Glomerular Filtration Rate > 60.0 >6 0 [facility]: [address] [facility] Normal Sodium Level 142 mEq/L 136-145 mEq/L [facility]: [address] [facility] Normal Potassium Serum 4.1 mEq/L 3.5-5.1 mE q/L [facility]: [address] [facility] High Chloride Level 110 mEq/L 98-107 mEq/ L [facility]: [address] [facility] Normal Carbon Dioxide Level 26 mEq/L 21-32 mEq/L [facility]: [address] [facility] Low Anion Gap 6 mEq/L 8-16 mEq/L [facility]: 8[address] [facility] Normal Calcium Level 9.3 mg/dL 8.5-10.1 mg/ dL [facility]: 8[address] [facility] Normal AST/SGOT 36 U/L 7-37 U/L [facility]: 8[address] [facility] Normal ALT/SGPT 44 U/L 12-78 U/L [facility]: 8[address] [facility] Normal Alkaline Phosphatase 103 U/L 45-117 U/L [facility]: [address] [facility] Normal Bilirubin,total 0.4 mg/dL 0.2-1.0 mg /dL [facility]: [address] [facility] Normal Total Protein 7.5 gm/dL 6.4-8.2 gm/d L [facility]: [address] [facility] Normal Albumin 3.7 gm/dL 3.2-5.2 gm/dL [facility]: 8[address] [facility] Low Albumin/globulin Ratio 1.0 1.2-2. 2 [facility]: 8[address] [facility] 12/18/2020 Lipid Panel, Blood High Triglycerides Lev el 205 mg/dL <150 mg/dL [facility]: 83 0 [facility] Normal Cholesterol Level 139 mg/dL <200 mg/ dL [facility]: [address] [facility] Low HDL Cholesterol 38 mg/dL >40 mg/dL F inal [facility]: 8[address] [facility] Normal LDL Cholesterol 60 mg/dL <100 mg/dL [facility]: 8[address] [facility] Normal Non-hdl-c 101 mg/dL [facility]: 8[address] [facility] Normal Cholesterol Risk Ratio 3.657 <5 [facility]: [address] [facility] 12/18/2020 TIBC (Total Iron-binding Capacity), Serum Normal Iron (Fe) 73 ug/dL 50-170 ug/dL [facility] nter: 8[address] [facility] Normal Total Iron Binding Capacity 389 ug/d L 250-450 ug/dL [facility]: 8[address] [facility] Normal Percent Saturation 18.8 % 13.2-45.0 % [facility]: 8[address] [facility] 12/18/2020 Vitamin B12, Serum Normal Vitamin B12 Level 354 pg/mL 247-911 pg/mL [facility]: 83 0 [facility] 12/18/2020 Folate, Serum Normal Folate 8.6 NG/mL >5.4 NG/ mL [facility]: [address] [facility] 12/18/2020 Vitamin D, 25-Hydroxy, Total, Serum Low Total 25(Oh) Vitamin D 13.7 NG/mL 30.0-100.0 NG/mL [facility] nter: 8[address] [facility] 12/18/2020 Ferritin, Serum or Plasma Normal Ferritin 21 NG/mL 8-252 NG/mL [facility]: [address] [facility] 12/18/2020 Vitamin B1 (Thiamine), Blood Normal Vitamin B1 Level Whole Blood 104.4 nmol/L 66.5-200.0 nmol/L [facility]: [address] [facility] 11/27/2020 UA W/ Reflex to Culture Normal Appearance, Urine Rfx clear clear [facility]: 83 0 [facility] Normal Color, Urine Rfx straw yellow [facility]: 830 [facility] Normal pH,urine Rfx 5.0 units 5.0-9.0 units [facility]: 8[address] [facility] Normal Specific Oark Ur Auto Rfx 1.003 1.002-1.035 [facility]: 830 [facility] Normal Protein, Urine Auto Rfx negative mg/ dL negative mg/dL [facility]: 8[address] [facility] Normal Glucose, Urine (UA) Auto Rfx n egative mg/dL negative mg/dL [facility]: 8[address] [facility] Normal Ketone, Urine Auto Rfx negative mg/d L negative mg/dL [facility]: 8[address] [facility] Normal Urobilinogen, Urine Auto Rfx 0.2 mg/ dL 0.0-2.0 mg/dL [facility]: [address] [facility] Normal Bilirubin, Urine Auto Rfx negative n egative [facility]: 8[address] [facility] Normal Nitrite, Urine Auto Rfx negative neg ative [facility]: 8[address] [facility] Normal Leukocyte Esterase Ur Auto Rfx negat darrell negative [facility]: 8[address] [facility] Normal Blood, Urine Blood Rfx negative nega tive [facility]: [address] [facility] Normal WBC, Urine Auto Rfx 0 /hpf 0-3 /hpf [facility]: 8[address] [facility] Normal RBC, Urine Auto Rfx 0 /hpf 0-3 /hpf [facility]: 8[address] [facility] Normal Bacteria, Urine Auto Rfx negative ne gative [facility]: 8[address] [facility] Normal Squam Epithelial Cell Ur Aurfx 1 /hp f 0-6 /hpf [facility]: 8[address] [facility] Normal Mucus, Urine Rfx small negative Fin [facility]: 830 [facility] Normal Hyaline Cast, Urine Auto Rfx 0 /lpf 0-1 /lpf [facility]: 830 [facility] 11/17/2020 CBC W/ Auto Diff Normal White Blood Count 6.3 10 4.0-10.0 10 [facility]: 0 [facility] Normal Red Blood Count 4.19 10 4.00-5.40 10 [facility]: 8[address] [facility] Normal Hemoglobin 13.4 g/dL 12.0-15.5 g/dL [facility]: 8[address] [facility] Normal Hematocrit 41.7 % 36.0-47.0 % [facility]: 0 [facility] High Mean Corpuscular Volume 99.5 fL 80.0 -96.0 fL [facility]: 830 [facility] Normal Mean Corpuscular Hemoglobin 32.0 pg 27.0-33.0 pg [facility]: 830 [facility] Normal Mean Corpuscular HGB Conc 32.1 g/dL 32.0-36.5 g/dL [facility]: 0 [facility] Normal Red Cell Distribution Width 12.9 % 1 1.5-14.5 % [facility]: 0 [facility] Normal Platelet Count, Automated 199 10 150 -450 10 [facility]: 830 [facility] Normal Neutrophils % 61.9 % 36.0-66.0 % Fin [facility]: 830 [facility] Normal Lymph % 28.1 % 24.0-44.0 % Final [facility]: 830 [facility] Normal [place] % 7.7 % 2.0-8.0 % Final [facility]: 8[address] [facility] Normal Eos % 1.3 % 0.0-3.0 % [facility]: 8[address] [facility] Normal Baso % 0.5 % 0.0-1.0 % [facility]: 830 [facility] Normal Immature Granulocyte % 0.5 % 0-3.0 % [facility]: 830 [facility] Normal Nucleated Red Blood Cell % 0.0 % 0- 0 % [facility]: 830 [facility] Normal Neutrophils # 3.9 10 1.5-8.5 10 [facility]: 830 [facility] Normal Lymph # 1.8 10 1.5-5.0 10 [facility]: 8[address] [facility] Normal [place] # 0.5 10 0.0-0.8 10 [facility]: 8[address] [facility] Normal Eos # 0.1 10 0.0-0.5 10 [facility]: 830 [facility] Normal Baso # 0.0 10 0.0-0.2 10 [facility]: 830 [facility] 11/17/2020 BMP, Serum or Plasma Normal Glucose, Fastin g 97 mg/dL 70-100 mg/dL [facility]: 83 0 [facility] Normal Blood Urea Nitrogen 12 mg/dL 7-18 mg /dL [facility]: 0 [facility] Normal Creatinine for GFR 0.78 mg/dL 0.55-1 .30 mg/dL [facility]: 8[address] [facility] Normal Glomerular Filtration Rate > 60.0 >6 0 [facility]: [address] [facility] Normal Sodium Level 142 mEq/L 136-145 mEq/L [facility]: [address] [facility] Normal Potassium Serum 4.2 mEq/L 3.5-5.1 mE q/L [facility]: [address] [facility] High Chloride Level 110 mEq/L 98-107 mEq/ L [facility]: 8[address] [facility] Normal Carbon Dioxide Level 28 mEq/L 21-32 mEq/L [facility]: 8[address] [facility] Low Anion Gap 4 mEq/L 8-16 mEq/L [facility]: 8[address] [facility] Normal Calcium Level 8.9 mg/dL 8.5-10.1 mg/ dL [facility]: 0 [facility] 11/17/2020 Magnesium, Serum or Plasma Normal Magnesium Level 2.0 mg/dL 1.8-2.4 mg/dL [facility]: 83 0 [facility] 09/28/2020 CBC W/ Auto Diff Normal White Blood Count 6.0 10 4.0-10.0 10 [facility]: 0 [facility] Low Red Blood Count 3.97 10 4.00-5.40 10 [facility]: 0 [facility] Normal Hemoglobin 12.8 g/dL 12.0-15.5 g/dL [facility]: 0 [facility] Normal Hematocrit 40.3 % 36.0-47.0 % [facility]: 0 [facility] High Mean Corpuscular Volume 101.5 fL 80. 0-96.0 fL [facility]: 8[address] [facility] Normal Mean Corpuscular Hemoglobin 32.2 pg 27.0-33.0 pg [facility]: 0 [facility] Low Mean Corpuscular HGB Conc 31.8 g/dL 32.0-36.5 g/dL [facility]: 0 [facility] Normal Red Cell Distribution Width 13.2 % 1 1.5-14.5 % [facility]: 8[address] [facility] Normal Platelet Count, Automated 171 10 150 -450 10 [facility]: 8[address] [facility] Normal Neutrophils % 65.5 % 36.0-66.0 % [facility]: 8[address] [facility] Normal Lymph % 24.7 % 24.0-44.0 % [facility]: 830 [facility] Normal [place] % 7.7 % 2.0-8.0 % Final [facility]: 830 [facility] Normal Eos % 1.3 % 0.0-3.0 % [facility]: 8[address] [facility] Normal Baso % 0.5 % 0.0-1.0 % [facility]: 830 [facility] Normal Immature Granulocyte % 0.3 % 0-3.0 % [facility]: 830 [facility] Normal Nucleated Red Blood Cell % 0.0 % 0- 0 % [facility]: 8[address] [facility] Normal Neutrophils # 3.9 10 1.5-8.5 10 [facility]: 8[address] [facility] Normal Lymph # 1.5 10 1.5-5.0 10 [facility]: 8[address] [facility] Normal [place] # 0.5 10 0.0-0.8 10 [facility]: 830 [facility] Normal Eos # 0.1 10 0.0-0.5 10 [facility]: 830 [facility] Normal Baso # 0.0 10 0.0-0.2 10 [facility]: 830 [facility] 09/28/2020 CMP, Serum or Plasma Normal Glucose, Fastin g 75 mg/dL 70-100 mg/dL [facility]: 83 0 [facility] Normal Blood Urea Nitrogen 17 mg/dL 7-18 mg /dL [facility]: 830 [facility] Normal Creatinine for GFR 0.80 mg/dL 0.55-1 .30 mg/dL [facility]: 0 [facility] Normal Glomerular Filtration Rate > 60.0 >6 0 [facility]: 8[address] [facility] Normal Sodium Level 142 mEq/L 136-145 mEq/L [facility]: 0 [facility] Normal Potassium Serum 4.6 mEq/L 3.5-5.1 mE q/L [facility]: [address] [facility] High Chloride Level 110 mEq/L 98-107 mEq/ L [facility]: 830 [facility] Normal Carbon Dioxide Level 27 mEq/L 21-32 mEq/L [facility]: [address] [place] [address] Low Anion Gap 5 mEq/L 8-16 mEq/L [facility]: 0 [facility] Normal Calcium Level 8.9 mg/dL 8.5-10.1 mg/ dL [facility]: 830 [facility] Normal AST/SGOT 37 U/L 7-37 U/L [facility]: 830 [facility] Normal ALT/SGPT 61 U/L 12-78 U/L [facility]: 0 [facility] Normal Alkaline Phosphatase 109 U/L 45-117 U/L [facility]: 0 [facility] Normal Bilirubin,total 0.2 mg/dL 0.2-1.0 mg /dL [facility]: 8[address] [facility] Normal Total Protein 7.2 gm/dL 6.4-8.2 gm/d L [facility]: 830 [facility] Normal Albumin 3.7 gm/dL 3.2-5.2 gm/dL [facility]: 0 [facility] Low Albumin/globulin Ratio 1.1 1.2-2. 2 [facility]: 0 [facility] 09/28/2020 Lipid Panel, Blood Normal Triglycerides Lev el 132 mg/dL <150 mg/dL [facility]: 83 0 [facility] Normal Cholesterol Level 157 mg/dL <200 mg/ dL Final [facility]: 8[address] [facility] Normal HDL Cholesterol 46 mg/dL >40 mg/dL F inal [facility]: 830 [facility] Normal LDL Cholesterol 85 mg/dL <100 mg/dL Final [facility]: 830 [facility] Normal Non-hdl-c 111 mg/dL Final [facility]: 8[address] [facility] Normal Cholesterol Risk Ratio 3.413 <5 Final [facility]: 830 [facility] 09/28/2020 TIBC (Total Iron-binding Capacity), Serum Normal Iron (Fe) 55 ug/dL 50-170 ug/dL Final [facility] nter: 830 [facility] Normal Total Iron Binding Capacity 411 ug/d L 250-450 ug/dL [facility]: 830 [facility] Normal Percent Saturation 13.4 % 13.2-45.0 % [facility]: 830 [facility] 09/28/2020 Vitamin B12, Serum Normal Vitamin B12 Level 307 pg/mL 247-911 pg/mL [facility]: 83 0 [facility] 09/28/2020 Folate, Serum Normal Folate 7.0 NG/mL >5.4 NG/ mL [facility]: 8[address] [facility] 09/28/2020 Vitamin D, 25-Hydroxy, Total, Serum Low Total 25(Oh) Vitamin D 10.8 NG/mL 30.0-100.0 NG/mL [facility] nter: 830 [facility] 09/28/2020 Ferritin, Serum or Plasma Normal Ferritin 17 NG/mL 8-252 NG/mL [facility]: 8[address] [facility] 09/28/2020 Vitamin B1 (Thiamine), Blood Normal Vitamin B1 Level Whole Blood 109.8 nmol/L 66.5-200.0 nmol/L [facility]: 8[address] [facility] 05/01/2020 Vitamin E Normal Vitamin E(alpha Tocopherol ) 8.7 mg/L 5.9-19.4 mg/L Final [facility]: 83 0 [facility] Normal Vitamin E(gamma Tocopherol) 2.2 mg/L 0.7-4.9 mg/L Final [facility]: 830 [facility] 05/01/2020 Vitamin B1 (Thiamine), Blood Normal Vitamin B1 Level Whole Blood 87.8 nmol/L 66.5-200.0 nmol/L [facility]: 8[address] [facility] Past Encounters 04/08/2021 Umbilical Hernia; Pain in Right Knee Ernesto Ferrer MD: [address] [place] [address], Ph. 03/05/2021 Steinert Myotonic Dystrophy Syndrome; First Degree Atrioventricular Block; Superficial Incisional Surgical Site Infection; Cough Maine Traroe MD: [address] [place] [address], Ph. 12/19/2020 Hemorrhagic Diarrhea Ernesto Ferrer MD: [address] [place] [address], Ph. 11/22/2020 Body Mass Index 30+ - Obesity; Headache Ernesto Ferrer MD: [address] [place] [address], Ph. 11/01/2020 SARS-CoV-2 Vaccination Ernesto Ferrer MD: [address] [place] [address], Ph. 10/03/2020 SARS-CoV-2 Vaccination Ernesto Ferrer MD: [address] [place] [address], Ph. 09/26/2020 Low Back Pain Ernesto Ferrer MD: [address] [facility], [place] [address], Ph. 09/06/2020 Left Hemiparesis Ernesto Ferrer MD: [address] [place] [address], Ph. 08/29/2020 Left Hemiparesis Ernesto Ferrer MD: [address] [facility], [place] [address], Ph. 05/28/2020 Body Mass Index 30+ - Obesity Ernesto Ferrer MD: [address] [place] [address], Ph. Social History Tobacco Smoking Status Never Smoker Vaccine List Vaccine Type COVID-19, mRNA, LNP-S, PF, 100 mcg/0.5 m L dose .5 mL 10.5 mL Plan of Care Reminders Provider Appointments None recorded. Lab None recorded. Referral None recorded. Procedures None recorded. Surgeries None recorded. Imaging None recorded. Vitals 04/08/2021 09:00AM ESTABLISHED [id number] Height Weight BMI Blood Pressure 70 in 270 lbs 38.7 kg/m2 (1) 96/68 mm[Hg ] (2) 98/63 mm[Hg] 03/05/2021 04:00PM HOSPITAL DISCHARGE Height Weight BMI Blood Pressure 70 in 265 lbs 16 oz 38.2 kg/m2 106/74 mm[Hg] 12/19/2020 10:20AM TELEHEALTH 20 Height 70 in 11/22/2020 02:00PM ESTABLISHED [id number] Height Weight BMI Blood Pressure 70 in 266 lbs 4 oz 38.2 kg/m2 106/70 mm[Hg] 10/03/2020 04:35PM MODERNA 1ST DOSE COVID VACCINE Height 70 in 09/26/2020 10:20AM TELEHEALTH 20 Height 70 in 09/06/2020 08:40AM ESTABLISHED [id number] Height Weight BMI Blood Pressure 70 in 254 lbs 16 oz 36.6 kg/m2 111/73 mm[Hg] 08/29/2020 10:00AM TELEHEALTH 20 Height 70 in 05/28/2020 11:40AM ESTABLISHED [id number] Height Weight BMI Blood Pressure 70 in [...]
--- OUTSIDE RECORDS SUMMARY | 2021-05-24 20:42 | CCD | Summary of Care ---
Author Author [facility] Organization [facility] Address Unknown Phone Unavailable Care Team Providers Care Suction Operator Name Role Phone Ernesto Ferrer MD PCP Reason for Referral * Diagnostic Radiology (Routine) Referred By Contact Referred To Contact Status Reason Specialty Diagnoses / Procedures Lemuel Mayes MD [address] [place] [address] Email: [email or web address] Authorized Radiology Diagnoses Dysfunctional voiding of urine Suprapubic discomfort P rocedures NM Kidney Function with Lasix Electronically signed by Lemuel Mayes MD at Reason for Visit * Diagnostic Radiology (Routine) Referred By Contact Referred To Contact Status Reason Specialty Diagnoses / Procedures Lemuel Mayes MD [address] [place] [address] Email: [email or web address] Authorized Radiology Diagnoses Dysfunctional voiding of urine Suprapubic discomfort P rocedures NM Kidney Function with Lasix Encounter Details Care Team Description Date Type Department Lemuel Mayes MD [address] [place] [address] [phone] Dysfunctional voiding of urine; Suprapubic discomfort 03/22/2021 [facility] Nuclear Medicine Encounter [address] [place] [address] Allergies Comments Active Allergy Reactions Severity [...] HCl 8 MG Oral TAKE ONE 0 04/0 Tablet (ZOFRAN) TABLET BY 0 MOUTH THREE TIMES A DAY NEEDED FOR NAUSEA AND VOMITING TAKE WITH MINIMAL AMOUNT OF FLUID 03/30/2021 Active Lidocaine 5 % External Place 1 patch 30 patch 0 0 Patch (LIDODERM) onto the skin 1 daily 12 hours on 12 hours off Additional Information Patient not taking. Reported on 03/15/2021 03/30/2021 Active Senna 176 MG/5ML Oral Take 10 mLs 300 mL 0 02/17 Syrup (SENOKOT) by mouth 1 nightly Additional Information Patient not taking. Reported on 03/15/2021 Active Furosemide 20 MG Oral Take 20 [...] file Date Recorded COVID-19 Exposure Response 03/22/2021 9:01 AM EDT In the last month, have you been in contact with No / Unsure someone who was confirmed or suspected to have Coronavirus / COVID-19? documented as of this encounter Last Filed Vital Signs Not on filedocumented in this encounter Plan of Treatment Care Team Description Date Type Specialty Manisha Carrasco MD [address] [place] [address] [phone] 04/25/2021 Office Visit Neurology Sigrid Frausto MBBS [address] [facility] [address] [place] [address] [phone] 05/08/2021 Telemedicine Gastroenterology Tono Mallory MD [address] [facility] [address] [facility], [address] [place] [address] [phone] 06/21/2021 Office Visit Cardiology Health Maintenance Due [...] ot Implanted Type Area Manufactur er 04/18/2022 [id number] / [id number] / Recorder Loop Reveal Linqlinqsys - Loop Left: Chest [employer] [id number] Recorder Wall [employer] Implanted: Qty: 1 on 02/28/2021 by Miladis Hua MD at OR [facility] 12/16/2016 [id number] / / [id number] Clip Filshie Tubal Ligation Ti - Bilateral: COOP ER [id number] Fallopian Tube SURGICAL Implanted: Qty: 1 on 10/24/2014 by Aleida Wilson MD at OR 5E documented as of this encounter Procedures Comments Procedure Name Priority Date/Time Associated Diag nosis NM KIDNEY FUNCTION WITH Routine 03/22/2021 Dysfun ctional voiding of PHARM - 30857 3:10 PM EDT urine Suprapubic discomfort documented in this encounter Results * NM Kidney Function with Lasix (03/22/2021 3:10 PM EDT) Specimen Impressions Performed At IMPRESSION: [facility] 1. Symmetrical excretion and eliminatio n of radiotracer with above-mentioned T1/2 values following administration of Lasix. 2. No evidence of obstruction. Narrative Performed At [facility] INDICATION: 30-year-old female here for evaluation of the right collecting system. TECHNIQUE: Following intravenous inject ion of 5.13 mCi of Tc 99m labeled DTPA, immediate flow images were obtained ove r the kidneys in the posterior projection. Next, functional images wer e obtained in the same projection over 30 minutes. Imaging was again performed us ing the same technique after the intravenous injection of 20 mg of furos emide. FINDINGS: Renal flow and radiopharmaceutical upta ke are prompt and symmetric. There is no evidence of obstruction. Following Lasi x there is bilateral symmetrical excretion and elimination. The T-1/2 is 4.9 minutes on the right, and 3.9 minutes on the left. Procedure Note Interface, Received Via Siine System - 03/22/2021 3:20 PM EDT INDICATION: 30-year-old female here for evaluation of the right collecting system. TECHNIQUE: Following intravenous injection of 5.13 mCi of Tc 99m labeled DTPA, immediate flow images were obtained over the kidneys in the posterior projection. Next, functional images were obtained in the same projection over 30 minutes. Imaging was again performed using the same technique after the intravenous injection of 20 mg of furosemide. FINDINGS: Renal flow and radiopharmaceutical uptake are prompt and symmetric. There is no evidence of obstruction. Following Lasix there is bilateral symmetrical excretion and elimination. The T-1/2 is 4.9 minutes on the right, and 3.9 minutes on the left. IMPRESSION: 1. Symmetrical excretion and elimination of radiotracer with above-mentioned T1/2 values following administration of Lasix. 2. No evidence of obstruction. Performing Organization Address City/State/ZIP Code P brandon Number [facility] [address] [place] [address] documented in this encounter Visit Diagnoses Diagnosis Dysfunctional voiding of urine Unspecified disorder of urethra and uri nary tract Suprapubic discomfort Abdominal pain, other specified site documented in this encounter Administered Medications Action Date Dose Rate Site Medication Order MAR Action 03/22/2021 1:40 PM EDT 20 mg furosemide (LASIX) injection 20 mg Given 20 mg, Intravenous, Once, On Thu03/22/21 at 1315, For 1 dose, Notify provider if systolic blood pressure less than: 90 mmHg 03/22/2021 12:30 PM EDT 5.13 millicuries TC-99M pentetate New Intravenous, Once, On Thu03/22/21 at Syringe/Cart 0945, For 1 dose, Imaging Protocol ridge documented in this encounter
--- OUTSIDE RECORDS SUMMARY | 2021-05-24 20:42 | CCD | Continuity of Care Document ---
Author Author Toni RINCON MD Organization Unknown Address [address] [facility] [address] [place] [address] Phone [phone] Care Team Providers Care Wholesale Account Executive Name Role Phone Ernesto Ferrer M.D. AUTM [phone] Shobha Garcia M.D. AUTM [phone] AUTM Unavailable Problems Description No Information Available [...] Provide r Date Vitamin D (Ergocalciferol) 1.25mg (34071 Ut) Capsules 1 tab once a week [...] lb BMI (Body Mass Index) 39.7 kg/m2 [place] Body Weight 145 lb Weight 122.018 kg BSA (Body Surface Area) 2.34 m2 10/09/2017 11:11am BP Systolic 92 mmHg BP Diastolic 62 mmHg Height 69 inches 5'9" Weight 218.00 lb BMI (Body Mass Index) 32.2 kg/m2 [place] Body Weight 145 lb Weight 98.885 kg BSA (Body Surface Area) 2.14 m2 Results Description No Information Available Procedures Date Code Description Status 05/01/2021 [address]2007 Office/Outpatient New Low MDM 30 -44 Minutes Completed Medical Devices Description No Information Available Encounters Type Date Location Provider Dx Diagnosis Office Visit 05/01/2021 3:45p [facility] Benedict hartman JR, MD R10.84 Generalized abdominal pain Assessments Date Code Description Provider 05/01/2021 R10.84 Generalized abdominal pain Benedict Rincon JR, MD Plan of Treatment Future Appointment(s):* 05/20/2021 1:45 pm - ZACK Tom at [facility] 05/01/2021 - Benedict Rincon JR, MD* R10.84 [...] to be reevaluated by her surgeon at [facility] who performed her carcinoid surgery. Functional Status Description No Information Available Mental Status Description No Information Available Referrals Refer to Reason for Referral Status Appt Date Benedict Rincon JR, MD UMBILICAL HERNIA Scheduled [phone] [address] [phone]
--- OUTSIDE RECORDS SUMMARY | 2021-05-24 20:42 | CCD | Continuity of Care Document ---
Author Author Toni RINCON MD Organization Unknown Address [address] [facility] [address] [place] [address] Phone [phone] Care Team Providers Care Income Tax Auditor Name Role Phone Ernesto Ferrer M.D. AUTM [phone] Shobha Garcia M.D. AUTM [phone] AUTM Unavailable Problems Description No Information Available [...] Provide r Date Vitamin D (Ergocalciferol) 1.25mg (20299 Ut) Capsules 1 tab once a week [...] lb BMI (Body Mass Index) 39.7 kg/m2 [place] Body Weight 145 lb Weight 122.018 kg BSA (Body Surface Area) 2.34 m2 10/09/2017 11:11am BP Systolic 92 mmHg BP Diastolic 62 mmHg Height 69 inches 5'9" Weight 218.00 lb BMI (Body Mass Index) 32.2 kg/m2 [place] Body Weight 145 lb Weight 98.885 kg [...] Rincon JR, MD UMBILICAL HERNIA Scheduled [address] [place] [address] [phone]
--- OUTSIDE RECORDS SUMMARY | 2021-05-24 20:42 | CCD | Summary of Care ---
Author Author [facility] Address Unknown Phone Unavailable Care Team Providers Care Car Supplier Name Role Phone Ernesto Ferrer MD PCP Reason for Visit * Reason Comments Follow-up * Office Visit (Routine) Referred By Contact Referred To Contact Status Reason Specialty Diagnoses / Procedures Ernesto Ferrer MD [address] [place] [phone] Lemuel Mayes MD [address] [place] [address] Email: [email or web address] Authorized Urology Diagnoses painful urination P rocedures evaluate and treat Auth valid 10/03/20-04/01/21 Encounter Details Care Team Description Date Type Department Lemuel Mayes MD [address] [place] [address] [phone] Flank pain (Primary Dx) 03/22/2021 Office Visit [facility] Urology [address] [facility], [place] [phone] Allergies Comments Active Allergy Reactions Severity Noted [...] as of this encounter (statuses as of 03/22/2021) Medications End Date Status Medication Sig Dispensed [...] as of this encounter (statuses as of 03/22/2021) Active Problems Problem Noted Date Flank pain [...] as of this encounter (statuses as of 03/22/2021) Resolved Problems Problem Noted Date Resolved Date [...] as of this encounter (statuses as of 03/22/2021) Immunizations Name Administration Dates Next Due documented [...] Signs Reading Time Taken Comments Vital Sign 106/72 03/22/2021 3:13 PM EDT Blood Pressure 93 03/22/2021 3:13 PM EDT Pulse 36.1 C (97 F) 03/22/2021 3:13 PM EDT Temperature 18 03/22/2021 3:13 PM EDT Respiratory Rate 97% 03/22/2021 3:13 PM EDT Oxygen Saturation - - Inhaled Oxygen Concentration 122.5 kg (270 lb) 03/22/2021 3:13 PM EDT Weight - - Height 39.87 03/15/2021 4:07 PM EDT Body Mass Index documented in this encounter Progress Notes * Celina Sy MD - 03/22/2021 3:00 PM EDT Reason for Evaluation/Chief Complaint Follow-up, possible UPJ obstruction History of Present Illness Toni Cortez is a 30 yo female with a history of iatrogenic bladder injury in 2 017 s/p intraop repair and eval revealing no ureteral injury. She has been havin g suprapubic pain over the last few years, although today she notes that she thi nks this may be related to her ovaries and notes that it is cyclical monthly. [place] s occasional discomfort with voiding but denies any significant urinary symptoms . She does have right flank pain, this is partially positional and she notes it is also worse if she drinks soda. Notes that at some point prior a urologist in [place] had told her she had a kinked ureter and might eventually require surg ondina. She presents today for follow-up with a CT abd/pelvis and renal scan. For review: "S 09/2020 - Urodynamic profile The patient arrived with 117 cc in her bladder. She was able to void 112 cc with a peak flow of 16.9 cc/s leaving a PVR of 5. The urodynamics catheters were then placed. The patient's bladder was filled with water at a rate of 5 0 cc/min. The patient's for sensation of void was 147 cc. The patient wa s filled to capacity of 445 cc. There were no uninhibited detrusor contracti ons during voiding. The pressure at maximum capacity was 1 cm of water. During the voiding phase the patient developed detrusor voiding pressure of 17.5 cm of water with a peak pressure of 19.6 cm of water. The patient was able to void 408 cc with a maximum flow rate of 18 cc/s. The patient left a PVR o f 37 cc. With respect to the voiding pattern the patient seems to have voided to volumes 1 of 224 and a second void about 2-1/2 minutes later of another 240 cc. The patient did not have EMG activity during voiding on the first void but the EMG t racing is more complex during the second void. Overall the patient has a normal bladder capacity and normal compliance. The re does seem to be some voiding dysfunction. 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 Blood transfusion without reported diagnosis 2011 anemia Cardiomyopathy Cholelithiasis Gastrointestinal dysmotility Kidney stone 2016 Myotonic dystrophy, type 1 Palpitations Thyroid disease hypothyroid Past Surgical History Past Surgical History: Procedure Laterality Date ABDOMINAL SURGERY APPENDECTOMY 12/24/2017 appendiceal carcinoid cardiac loop recorder implant 03/17/13 SECTION X 3 CHOLECYSTECTOMY, LAPAROSCOPIC N/A /05/18/15 Dr Suresh @ [facility] ELBOW SURGERY Left 1995 EYE SURGERY cyst removed FRACTURE SURGERY LEFT ARM TODDLER HYSTERECTOMY LOOP INSERTION OVARIAN CYST DRAINAGE 2012 NV COLONOSCOPY W/BIOPSY SINGLE/MULTIPLE N/A 02/20/2018 Procedure: COLONOSCOPY, FLEXIBLE, PROXIMAL TO SPLENIC FLEXURE W/BX, SINGLE/MULT IPLE; Surgeon: Mary Dyson MD; Location: OR [facility]; Service: Endoscopy; Laterality: N/A; NV EGD TRANSORAL BIOPSY SINGLE/MULTIPLE N/A 08/17/2015 Procedure: UPPER GI ENDOSCOPY W/BX, SINGLE/MULTIPLE; Surgeon: Coreen Valiente MD; Location: OR [facility]; Service: Endoscopy; Laterality: N/A; NV ENDOSCOPY UPPER SMALL INTESTINE N/A 04/08/2016 Procedure: SMALL INTESTINAL ENDO/ENTEROSCOPY, > 2ND PORTION DUODENUM, NOT W/ILEUM DX W/WO SPECIMEN (SEP PROC); Surgeon: Bruno Pavon MD; Location: OR [facility]; Service: Endoscopy; Laterality: N/A; NV ENDOSCOPY UPPER SMALL INTESTINE W/BIOPSY N/A 04/08/2016 Procedure: SMALL INTESTINAL ENDO/ENTEROSCOPY, > 2ND PORTION DUODENUM, NOT W/ILEUM W/BX, SINGLE/MULTIPLE; Surgeon: Bruno Pavon MD; Location: OR [facility]; Service: Endoscopy; Laterality: N/A; NV ESOPHAGOGASTRODUODENOSCOPY TRANSORAL DIAGNOSTIC N/A 08/17/2015 Procedure: UPPER GI ENDOSCOPY; DX, W/WO SPECIMEN COLLECTION, BRUSHING/WASHING ( SEP PROC); Surgeon: Coreen Valiente MD; Location: OR [facility]; Service: Endoscopy; Laterality: N/A; NV LAP,RMV ADNEXAL STRUCTURE Bilateral 06/04/2017 Procedure: Total Laparoscopic Hysterectomy,Bilateral Salpingectomy, Cystoscopy/ per DR BAER; Surgeon: Cory Baer MD; Location: OR [facility]; Service: Gynecology; Laterality: Bilateral; NV LAP,TUBAL CAUTERY Bilateral 10/24/2014 Procedure: Laparoscopic Bilateral Tubal Ligation with filshie clips per Dr Gilson hay ; Surgeon: Aleida Wilson MD; Location: OR [facility]; Service: Gynecology; L aterality: Bilateral; NV RMVL IMPLANTABLE PT-ACTIVATED CAR EVENT RECORDER N/A 04/07/2017 Procedure: RMVL IMPLANTABLE PT-ACTIVATED CAR EVENT RECORDER; Surgeon: Miladis avery MD; Location: OR [facility]; Service: Cardiology; Laterality: N/A; TUBAL LIGATION UPPER GASTROINTESTINAL ENDOSCOPY 05/18/2013 gastritis, 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, also not ed on UGI Allergies Aspirin, Reglan [metoclopramide], Tramadol, and Omnipaque [iodinated diagnostic agents] Allergies Allergen Reactions Aspirin Shortness Of Breath Difficulty breathing Reglan [Metoclopramide] Other (See Comments) "zone's out", and passes out Tramadol Other (See Comments) seizure Omnipaque [Iodinated Diagnostic Agents] Nausea Only and Other (See Commen ts) Rx light-headedness to PO contrast Patient denies any symptoms with IV contrast Medications Current Outpatient Medications: Furosemide 20 MG Oral Tablet (LASIX), Take 20 mg by mouth daily as neede d, Disp: , Rfl: Lidocaine 5 % External Patch (LIDODERM), Place 1 patch onto the skin darius ly 12 hours on 12 hours off, Disp: 30 patch, Rfl: 0 Ondansetron HCl 8 MG Oral Tablet (ZOFRAN), TAKE ONE TABLET BY MOUTH THRE E TIMES A DAY NEEDED FOR NAUSEA AND VOMITING TAKE WITH MINIMAL AMOUNT OF FLU ID, Disp: , Rfl: Potassium Chloride Sugar ER 10 MEQ Oral Tablet Extended Release (K-DUR), Take 10 mEq by mouth daily as needed, Disp: , Rfl: Senna 176 MG/5ML Oral Syrup (SENOKOT), Take 10 mLs by mouth nightly, Dis p: 300 mL, Rfl: 0 No current facility-administered medications for this visit. Social History Social History Tobacco Use Smoking status: Never Smoker Smokeless tobacco: Never Used Substance Use Topics Alcohol use: No Family History Family History Problem Relation Age of Onset Heart disease Maternal Grandfather Alzheimer's disease Paternal Grandfather Thyroid disease Brother Heart disease Mother GERD Mother Diabetes Father Intellectual Disability Brother Review of Systems Negative except HPI Physical Exam Visit Vitals BP 106/72 Pulse 93 Temp 36.1 C Resp 18 Wt 122.5 kg (270 lb) LMP 05/18/2017 SpO2 97% BMI 39.87 kg/m Gen: NAD Head: NCAT Eyes: EOMI Neck: Supple Lungs: No respiratory distress; no use of accessory resp muscles Abd: Soft, NT/ND, no masses palpable Back: mild CVA tenderness on R, no tenderness on L Extremities: No swelling in b/l LE Skin: No rashes noted Imaging: CT abd/pelvis and renal scan 03/22/2021: Personally reviewed; appears to have extrarenal pelvis bilaterally, kidneys drai n well bilaterally on renal scan without any evidence of obstruction Assessment and Plan: 30 yo female with history of bladder injury during hysterectomy, suprapubic pain , and right flank pain with 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 On renal scan today there is no evidence of obstruction. Her R flank pain is also positional and likely n ot related to her kidney. She also feels her suprapubic pain is related to her o varies and overall is doing okay. Overall, there is no sign of obstruction of he r kidneys and therefore no area that needs repair at this time and we discussed these findings with her. - RTC as needed Patient seen and examined with Dr. Mayes. Please see attending addendum for ch anges/additional management plans. Celina Sy MD, PhD Resident Physician | PGY-2 Department of Urology I saw, examined and evaluated the patient with the resident and I agree with the above note, assessment and plan. I would like to thank you for the referral of this patient and I will keep you informed about her progress. Lemuel Mayes MD FACS Professor Departments of Urology and Radiation Oncology [place], [place] documented in this encounter Plan of Treatment Care Team Description Date Type Specialty Manisha Carrasco MD [address] [place] [address] [phone] 04/25/2021 Office Visit Neurology Sigrid Frausto MBBS [address] [facility] [address] [place] [address] [phone] 05/08/2021 Telemedicine Gastroenterology Tono Mallory MD [address] [facility] [address] [facility], [address] [place] [address] [phone] 06/21/2021 Office Visit Cardiology Health Maintenance Due [...] ot Implanted Type Area Manufactur er 04/18/2022 [id number] / [id number] / Recorder Loop Reveal Linqlinqsys - Loop Left: Chest [employer] [id number] Recorder Wall [employer] Implanted: Qty: 1 on 02/28/2021 by Miladis Hua MD at OR [facility] 12/16/2016 [id number] / / [id number] Clip Filshie Tubal Ligation Ti - Bilateral: COOP ER [id number] Fallopian Tube SURGICAL Implanted: Qty: 1 on 10/24/2014 by Aleida Wilson MD at OR 5E documented as of this encounter Results Not on filedocumented in this encounter Visit Diagnoses Diagnosis Flank pain - Primary Abdominal pain, unspecified site documented in this encounter
--- OUTSIDE RECORDS SUMMARY | 2021-05-24 20:42 | CCD | Continuity of Care Document ---
Author Author Toni RINCON MD Organization Unknown Address [address] [facility] [address] [place] [address] Phone [phone] Care Team Providers Care Powertrain Engineer Name Role Phone Ernesto Ferrer M.D. AUTM [phone] Shobha Garcia M.D. AUTM [phone] AUTM Unavailable Problems Description No Information Available [...] Provide r Date Vitamin D (Ergocalciferol) 1.25mg (47972 Ut) Capsules 1 tab once a week [...] lb BMI (Body Mass Index) 39.7 kg/m2 [place] Body Weight 145 lb Weight 122.018 kg BSA (Body Surface Area) 2.34 m2 10/09/2017 11:11am BP Systolic 92 mmHg BP Diastolic 62 mmHg Height 69 inches 5'9" Weight 218.00 lb BMI (Body Mass Index) 32.2 kg/m2 [place] Body Weight 145 lb Weight 98.885 kg [...] Rincon JR, MD UMBILICAL HERNIA Scheduled [address] [place] [phone]
--- OUTSIDE RECORDS SUMMARY | 2021-05-24 20:43 | CCD | Summary of Care ---
Author Author [facility] Organization [facility] Address Unknown Phone Unavailable Care Team Providers Care Collar Closer Lockstitch Name Role Phone Ernesto Ferrer MD PCP Reason for Visit * Reason Comments Follow-up 4 month follow up * Office Visit (Routine) Referred By Contact Referred To Contact Status Reason Specialty Diagnoses / Procedures Ernesto Ferrer MD [address] [place] [phone] Lemuel Mayes MD [address] [place] [address] Email: [email or web address] Authorized Urology Diagnoses painful urination P rocedures evaluate and treat Auth valid 10/03/20-04/01/21 Encounter Details Care Team Description Date Type Department Lemuel Mayes MD [address] [place] [address] [phone] Dysfunctional voiding of urine (Primary Dx) 02/25/2021 Office Visit [facility] Urology [address] [place] [phone] Allergies Comments Active Allergy Reactions Severity Noted [...] as of this encounter (statuses as of 02/25/2021) Medications End Date Status Medication Sig Dispensed Refills Start Date 05/03/2021 Active Mexiletine HCl 150 MG Take 1 60 capsule 11 04/19 Oral Capsule (MEXITIL) capsule by 0 mouth Two Times Daily Additional Information Patient not taking. Reported on 02/25/2021 08/12/2021 Active Furosemide 20 MG Oral Take 1 tablet 30 tablet 5 Tablet (LASIX) by mouth 1 daily Active Ondansetron HCl 8 MG Oral TAKE ONE 0 /0 Tablet (ZOFRAN) TABLET BY 0 MOUTH THREE TIMES A DAY NEEDED FOR NAUSEA AND VOMITING TAKE WITH MINIMAL AMOUNT OF FLUID documented as of this encounter (statuses as of 02/25/2021) Active Problems Problem Noted Date Dysfunctional voiding of urine 10/23/2020 Suprapubic discomfort 09/25/2020 Chronic low back pain without sciatica 09/25/2020 LBBB (left bundle branch block) 06/19/2020 Abdominal pain, right upper quadrant 04/22/2020 [...] x 2 Cardiomegaly 12/08/2013 Heart palpitations 12/08/2013 Cardiomyopathy, dilated, nonischemic 10/15/2013 Overview: Formatting of this note might [...] as of this encounter (statuses as of 02/25/2021) Resolved Problems Problem Noted Date Resolved Date [...] as of this encounter (statuses as of 02/25/2021) Immunizations Name Administration Dates Next Due documented [...] on file Date Recorded COVID-19 Exposure Response 02/25/2021 1:27 PM EDT In the last month, have you been in contact with No / Unsure someone who was confirmed or suspected to have Coronavirus / COVID-19? documented as of this encounter Last Filed Vital Signs Reading Time Taken Comments Vital Sign 116/83 02/25/2021 1:30 PM EDT Blood Pressure 73 02/25/2021 1:30 PM EDT Pulse - - Temperature 16 02/25/2021 1:30 PM EDT Respiratory Rate 97% 02/25/2021 1:30 PM EDT Oxygen Saturation - - Inhaled Oxygen Concentration 122 kg (269 lb) 02/25/2021 1:30 PM EDT Weight 175.3 cm (5' 9.02") 02/25/2021 1:30 PM EDT Height 39.71 02/25/2021 1:30 PM EDT Body Mass Index documented in this encounter Progress Notes * Lemuel Mayes MD - 02/25/2021 1:30 PM EDT CC: Pelvic pain and right kidney issue Chief Complaint Patient presents with Follow-up 4 month follow up Referring Physician: Ernesto Ferrer MD HPI: 30 y.o. femalewith a history of iatrogenic bladder injury during a hys terectomy in 2017, s/p repair. intraop eval reveals no ureteral injury. She's cu rrently followed by [facility]. Over the past 2 years, she has been having suprapubic d iscomfort and pain. She claims that the pain is sharp in nature, and sometimes i t lasts a whole day without relief. She denies any dysuria, constipation, or any gross hematuria or blood in stool. She claims that ibuprofen sometimes will help with the pain. She denies any retention symptoms, but does endorse occasional straining on urination. She denies any significant bladder irritants intake. CT in 04/2020 reveals normal kidneys b/l without hydro. Bladder appears WNL. UDS 09/2020 - Urodynamic profile The patient arrived [...] ne shavonne empty the bladder by double voiding. We decided to set the patient up with pelvic floor physical therapy. She contin ues to have the same complaints. She continues to have suprapubic discomfort. She did inform me that in [place], they discovered an issue with her right kid rylan with a renal scan was done and she was told that she needs to have surgery. Patient chose not to have the operation. And she thinks her pain may be attrib uted to this. This was about 3 to 4 years ago. 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 Blood transfusion without reported diagnosis 2011 anemia Cardiomyopathy Cholelithiasis Gastrointestinal dysmotility Kidney stone 2016 Myotonic dystrophy, type 1 Palpitations Thyroid disease hypothyroid PSH: Past Surgical History: Procedure Laterality Date ABDOMINAL SURGERY APPENDECTOMY 12/24/2017 appendiceal carcinoid cardiac loop recorder implant 03/17/13 SECTION X 3 CHOLECYSTECTOMY, LAPAROSCOPIC N/A /05/18/15 Dr Suresh @ [facility] ELBOW SURGERY Left 1995 EYE SURGERY cyst removed FRACTURE SURGERY LEFT ARM TODDLER HYSTERECTOMY LOOP INSERTION OVARIAN CYST DRAINAGE 2012 [place] COLONOSCOPY W/BIOPSY SINGLE/MULTIPLE N/A 02/20/2018 Procedure: COLONOSCOPY, FLEXIBLE, PROXIMAL TO SPLENIC FLEXURE W/BX, SINGLE/MULT IPLE; Surgeon: Mary Dyson MD; Location: OR ENDO; Service: Endoscopy; Laterality: N/A; [place] EGD TRANSORAL BIOPSY SINGLE/MULTIPLE N/A 08/17/2015 Procedure: UPPER GI ENDOSCOPY W/BX, SINGLE/MULTIPLE; Surgeon: Coreen Valiente MD; Location: OR ENDO; Service: Endoscopy; Laterality: N/A; WY ENDOSCOPY UPPER SMALL INTESTINE N/A 04/08/2016 Procedure: SMALL INTESTINAL ENDO/ENTEROSCOPY, > 2ND PORTION DUODENUM, NOT W/ILEUM DX W/WO SPECIMEN (SEP PROC); Surgeon: Bruno Pavon MD; Location: OR ENDO; Service: Endoscopy; Laterality: N/A; [place]Y ENDOSCOPY UPPER SMALL INTESTINE W/BIOPSY N/A 04/08/2016 Procedure: SMALL INTESTINAL ENDO/ENTEROSCOPY, > 2ND PORTION DUODENUM, NOT W/ILEUM W/BX, SINGLE/MULTIPLE; Surgeon: Bruno Pavon MD; Location: OR [facility]; Service: Endoscopy; Laterality: N/A; WY ESOPHAGOGASTRODUODENOSCOPY TRANSORAL DIAGNOSTIC N/A 08/17/2015 Procedure: UPPER GI ENDOSCOPY; DX, W/WO SPECIMEN COLLECTION, BRUSHING/WASHING ( SEP PROC); Surgeon: Coreen Valiente MD; Location: OR ENDO; Service: Endoscopy; Laterality: N/A; WY LAP,RMV ADNEXAL STRUCTURE Bilateral 06/04/2017 Procedure: Total Laparoscopic Hysterectomy,Bilateral Salpingectomy, Cystoscopy/ per DR BAER; Surgeon: Cory Baer MD; Location: OR 5E; Service: Gynecology; Laterality: Bilateral; WY LAP,TUBAL CAUTERY Bilateral 10/24/2014 Procedure: Laparoscopic Bilateral Tubal Ligation with filshie clips per Dr Gilson hay ; Surgeon: Aleida Wilson MD; Location: OR 5[facility]; Service: Gynecology; L aterality: Bilateral; WY RMVL IMPLANTABLE PT-ACTIVATED CAR EVENT RECORDER N/A 04/07/2017 Procedure: RMVL IMPLANTABLE PT-ACTIVATED CAR EVENT RECORDER; Surgeon: Miladis avery MD; Location: [facility]; Service: Cardiology; Laterality: N/A; TUBAL LIGATION UPPER GASTROINTESTINAL ENDOSCOPY 05/18/2013 gastritis, 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 Other Topics Concern Not on file Social History Narrative Not on file Social Determinants of Health Financial Resource Strain: Difficulty of Paying Living Expenses: Food Insecurity: Worried About Running Out of Food in the Last Year: Ran Out of Food in the Last Year: Transportation Needs: Lack of Transportation (Medical): Lack of Transportation (Non-Medical): Physical Activity: Days of Exercise per Week: Minutes of Exercise per Session: Stress: Feeling of Stress : Social Connections: Frequency of Communication with Friends and Family: Frequency of Social Gatherings with Friends and Family: Attends Cheondo[employer] Services: Active Member of Clubs or Organizations: Attends Club or Organization Meetings: Marital Status: Intimate Partner Violence: Fear of Current or Ex-Partner: Emotionally Abused: Physically Abused: Sexually Abused: Family: Family History Problem Relation Age of Onset Heart disease Maternal Grandfather Alzheimer's disease Paternal Grandfather Thyroid disease Brother Heart disease Mother GERD Mother Diabetes Father Intellectual Disability Brother Medications: Current Outpatient Medications on File Prior to Visit Medication Sig Dispense Refill Furosemide 20 MG Oral Tablet (LASIX) Take 1 tablet by mouth daily 30 tabl et 5 Ondansetron HCl 8 MG Oral Tablet (ZOFRAN) TAKE ONE TABLET BY MOUTH THREE TIMES A DAY NEEDED FOR NAUSEA AND VOMITING TAKE WITH MINIMAL AMOUNT OF FLUID Mexiletine HCl 150 MG Oral Capsule (MEXITIL) Take 1 capsule by mouth Two Times Daily (Patient not taking: Reported on 02/25/2021) 60 capsule 11 No current facility-administered medications on file prior to visit. ROS: General: No fevers, chills, weight loss Eyes: No blurry vision, no double vision Ears: No hearing loss Throat: No hoarseness, no difficulty swallowing Heart: No chest pain, palpitations Lung: No shortness of breath Abdomen: No abdominal pain, nausea, vomiting Urinary: As per HPI Extremities: No swelling, no ecchymosis Psychiatric: No feelings of depression or anxiety Neurologic: No extremity weakness, no tingling or numbness Skin: No rashes Physical Exam Vitals: 02/25/21 1330 BP: 116/83 Pulse: 73 Resp: 16 SpO2: 97% General: Awake, Alert Neurologic: Oriented to person, place, time Eyes: No icterus Lung: Breathing comfortable without distress Abdomen: Non-distended, soft Musculoskeletal : moving all extremities Skin : Visible skin did not show evidence of rash Psychiatric: Normal mood, affect Labs: No visits with results within 1 Month(s) from this visit. Latest known visit with results is: Office Visit on 09/25/2020 Component Date Value Ref Range Status Color 09/25/2020 Miladis Final Clarity 09/25/2020 Cloudy Final Specific [place] 09/25/2020 1.028 1.003 - 1.030 Final PH Urine 09/25/2020 5.0 5.0 - 8.0 Final Total Protein UA 09/25/2020 Negative Negative mg/dL Final Glucose UA 09/25/2020 Negative Negative mg/dL Final Ketone Urine 09/25/2020 Negative Negative mg/dL Final Bilirubin 09/25/2020 Negative Negative Final Hemoglobin, Urine 09/25/2020 Negative Negative Final Leukocyte Esterase 09/25/2020 Negative Negative Stanley/uL Final Nitrite 09/25/2020 Negative Negative Final WBC 09/25/2020 0 0 - 5 /HPF Final RBC 09/25/2020 0 0 - 3 /HPF Final Special Request 09/25/2020 None Final Culture/Results 09/25/2020 40,000 col/ml Indigenous microorganisms. Fin al Assessment/Plan: Patient continues to have suprapubic discomfort after undergoin g pelvic floor physical therapy. She also did inform me that she had an issue w ith the right kidney where she was told she needs to have surgery done. I would like to obtain CT of the abdomen pelvis with contrast as well as a renal scan w ith Lasix to evaluate the right collecting system. I will see the patient back after the above-mentioned studies are performed. I appreciate the opportunity to see this patient and I will keep you posted on h er progress. Lemuel Mayes MD FACS Professor Departments of Urology and Radiation Oncology [place], [place] documented in this encounter Plan of Treatment Care Team Description Date Type Specialty Tono Mallory MD [address] [facility], [address] [place] [address] [phone] 04/05/2021 Office Visit Cardiology Manisha Carrasco MD [address], [place] [id number] 04/25/2021 Office Visit Neurology Sigrid Frausto MBBS [address] [facility] [address] [place], [place] [id number] 05/08/2021 Office Visit Gastroenterology Health Maintenance Due Date Last Done Comments [...] L ot Implanted Type Area Manufactur er 12/16/2016 [id number] / [id number] Clip Filshie Tubal Ligation Ti - Bilateral: COOP ER [id number] Fallopian Tube SURGICAL Implanted: Qty: 1 on 10/24/2014 by Aleida Wilson MD at [facility] documented as of this encounter Results Not on filedocumented in this encounter Visit Diagnoses Diagnosis Dysfunctional voiding of urine - Primar y Unspecified disorder of urethra and uri nary tract documented in this encounter
--- OUTSIDE RECORDS SUMMARY | 2021-05-24 20:43 | CCD | Summary of Care ---
Author Author [facility] Organization [facility] Address Unknown Phone Unavailable Care Team Providers Care Direct Customer Service Representative Name Role Phone Ernesto Ferrer MD PCP Reason for Referral * (Routine) Referred By Contact Referred To Contact Status Reason Specialty Diagnoses / Procedures Tono Mallory MD [address] [place] [address], [address] [place] [id number] Email: [email or web address] Diagnoses Cardiomyopathy, dilated, nonischemic P rocedures Echocardiogram 2D complete ECH10 Electronically signed by Tono Mallory MD at * (Routine) Referred By Contact Referred To Contact Status Reason Specialty Diagnoses / Procedures Tono Mallory MD [address] [place], [place] [address], [address] [place] [id number] Email: [email or web address] Diagnoses Cardiomyopathy, dilated, nonischemic P rocedures Echocardiogram 2D complete ECH10 Electronically signed by Tono Mallory MD at Reason for Visit * Reason Comments Cardiomyopathy * Diagnostic Medical (Routine) Referred By Contact Referred To Contact Status Reason Specialty Diagnoses / Procedures Cardiology Provider-Based [address] [phone] Cardiology Provider-Based [address] 5th Floor, [address] [place] [phone] Authorized Cardiology Diagnoses Chest discomfort P rocedures Cardiac event monitor [id number] Encounter Details Care Team Description Date Type Department Tono Mallory MD [address] [facility] [address], [address] [place] [address] Cardiomyopathy, dilated, nonischemic (Pr imary Dx); LBBB (left bundle branch block); Myotonic dystrophy, type 1; Chest discomfort 01/03/2021 Office Visit [facility] [address] 5[address], [address] [place] [address] Allergies Comments Active Allergy Reactions [...] as of this encounter (statuses as of 02/27/2021) Medications End Date Status Medication Sig Dispensed Refills Start Date 02/22/2021 Potassium Chloride ER 10 Take 1 tablet 30 tablet 5 MEQ Oral Tablet Extended by mouth 0 Release (K-DUR) daily 01/03/2021 Discontinued (Therapy comple livia) Dicyclomine HCl 10 MG Take 1 120 capsule 11 04/19 Oral Capsule capsule by 0 mouth Two times daily as needed (abdomen cramps) 05/03/2021 Suspended Mexiletine HCl 150 MG Take 1 60 capsule 11 04/19 Oral Capsule (MEXITIL) capsule by 0 mouth Two Times Daily Additional Information Patient not taking. Reported on 02/25/2021 01/03/2021 Discontinued Albuterol Sulfate HFA 108 Inhale 2 1 Inhaler 0 (90 Base) MCG/ACT puffs into 0 Inhalation Aerosol the lungs Solution (PROVENTIL every 4 HFA)Indications: Upper (four) hours respiratory tract as needed infection, unspecified for Wheezing type, Mild intermittent or Shortness reactive airway disease of Breath without complication (cough)Use with spacer 08/12/2021 Suspended Furosemide 20 MG Oral Take 1 tablet 30 tablet 5 Tablet (LASIX) by mouth 1 daily Additional Information 01/03/2021 Discontinued (Therapy comple livia) Amoxicillin-Pot 0 Clavulanate 875-125 MG 1 Oral Tablet (AUGMENTIN) 01/03/2021 Discontinued (Therapy comple livia) Loperamide HCl 2 MG Oral TAKE ONE 0 05/03 Capsule (IMODIUM) CAPSULE BY 0 MOUTH TWICE A DAY NEEDED FOR DIARREA FOR UP TO 10 DAYS Suspended Ondansetron HCl 8 MG Oral TAKE ONE 0 04/0 Tablet (ZOFRAN) TABLET BY 0 MOUTH THREE TIMES A DAY NEEDED FOR NAUSEA AND VOMITING TAKE WITH MINIMAL AMOUNT OF FLUID 01/03/2021 Discontinued (Therapy comple livia) Tobramycin-Dexamethasone tobramycin 0 0.3-0.1 % Ophthalmic 0.3 Suspension (TOBRADEX) %-dexamethaso ne 0.1 % eye drops,suspens ion 01/03/2021 Discontinued (Therapy comple livia) Amitriptyline HCl 10 MG Take 3 270 tablet 1 Oral Tablet (ELAVIL) tablets by 1 mouth nightly documented as of this encounter (statuses as of 02/27/2021) Active Problems Problem Noted Date Chest pain 02/26/2021 Dysfunctional voiding of urine [...] as of this encounter (statuses as of 02/27/2021) Resolved Problems Problem Noted Date Resolved Date [...] as of this encounter (statuses as of 02/27/2021) Immunizations Name Administration Dates Next Due documented [...] on file Date Recorded COVID-19 Exposure Response 02/26/2021 10:53 AM EDT In the last month, have you been in contact with No / Unsure someone who was confirmed or suspected to have Coronavirus / COVID-19? documented as of this encounter Last Filed Vital Signs Reading Time Taken Comments Vital Sign 99/71 01/03/2021 10:16 AM EDT Blood Pressure 66 01/03/2021 10:12 AM EDT Pulse - - Temperature 16 01/03/2021 10:12 AM EDT Respiratory Rate 98% 01/03/2021 10:12 AM EDT Oxygen Saturation - - Inhaled Oxygen Concentration 121.5 kg (267 lb 12.8 oz) 01/03/2021 10:12 AM EDT Weight 175.3 cm (5' 9") 01/03/2021 10:12 AM EDT Height 39.55 01/03/2021 10:12 AM EDT Body Mass Index documented in this encounter Progress Notes * Tono Mallory MD - 01/03/2021 10:00 AM EDT Images from the original note were not included. CARDIOLOGY OFFICE NOTE January 03, 2021 REASON FOR VISIT: ongoing management of her cardiomyopathy Ms. Cortez is a 30 y.o. female with a history that includes dilated cardiomyopat hy, LBBB and myotonic dystrophy. She had called in October related to unilateral leg swelling. Doppler was negative. More recently, she called the on-call with complaints of chest pressure and erratic heart rates. She had previously been seen in [facility] ED for similar complaints. Still having some symptoms. ECG t kendrick is sinus at 58. CARDIAC HISTORY: Implanted Loop Recorder (17-Mar-2013): [employer] [...] from 72 to 99 BPM. Last ECHO 24-Feb-2020: Left ventricle is mildly dilated. Left ventricular wall thickness is normal. Mildly reduced systolic left ventricular function. There is mild diffuse hypokinesis. Grade 1 diastolic dysfunction (impaired relaxation with low to normal filling pr essure). Left Ventricular Measurements LVEF, BP: 49 %. Right ventricle is normal in size. Right ventricular systolic function is normal . The left atrium size by volume measurement is normal (16-34 ml/m2). The right atrium size by volume measurement is normal. Mitral valve appears structurally normal. Mild mitral regurgitation. Aortic valve appears structurally normal. No aortic regurgitation. The tricuspid valve appears structurally normal. Trivial tricuspid regurgitation . The pulmonic valve appears grossly normal. Trace/physiologic pulmonic regurgitat ion present. The aortic root is normal in size. No pericardial effusion. Cardiac Event Monitor Apr-2020: Sinus Rhythm, rates 38-140 bpm No Atrial Fibrillation 7 symptom episodes, which correlated to Sinus Rhythm rates 60-87 bpm 1 episode of SVT, rate 137 bpm 1 episode of 1stdegree AV block, rate 45 bpm 1 episode ofjunctional rhythm ended with a pause before returning to sinus Last EKG 18-Jun-2020: Sinus Rhythm with 1st degree AV block, rate 71 bpm Left Bundle Branch Block Abnormal EKG MEDICATIONS: Current Outpatient Medications Medication Sig Furosemide 20 MG Oral Tablet (LASIX) Take 1 tablet by mouth daily Ondansetron HCl 8 MG Oral Tablet (ZOFRAN) TAKE ONE TABLET BY MOUTH THREE TIMES A DAY NEEDED FOR NAUSEA AND VOMITING TAKE WITH MINIMAL AMOUNT OF FLUID Potassium Chloride ER 10 MEQ Oral Tablet Extended Release (K-DUR) Take 1 tablet by mouth daily Albuterol Sulfate HFA 108 (90 Base) MCG/ACT Inhalation Aerosol Solution ( PROVENTIL HFA) Inhale 2 puffs into the lungs every 4 (four) hours as needed for Wheezing or Shortness of Breath (cough)Use with spacer Amitriptyline HCl 10 MG Oral Tablet (ELAVIL) Take 3 tablets by mouth nigh tly (Patient not taking: Reported on 01/03/2021) Amoxicillin-Pot Clavulanate 875-125 MG Oral Tablet (AUGMENTIN) Dicyclomine HCl 10 MG Oral Capsule Take 1 capsule by mouth Two times manan y as needed (abdomen cramps) Loperamide HCl 2 MG Oral Capsule (IMODIUM) TAKE ONE CAPSULE BY MOUTH TWIC E A DAY NEEDED FOR DIARREA FOR UP TO 10 DAYS (Patient not taking: Reported on 01/03/2021) Mexiletine HCl 150 MG Oral Capsule (MEXITIL) Take 1 capsule by mouth Two Times Daily (Patient not taking: Reported on 01/03/2021) Tobramycin-Dexamethasone 0.3-0.1 % Ophthalmic Suspension (TOBRADEX) tobra mycin 0.3 %-dexamethasone 0.1 % eye drops,suspension (Patient not taking: Report ed on 01/03/2021) No current facility-administered medications for this visit. ALLERGIES: Allergies Allergen Reactions Aspirin Shortness Of [...] CHOLECYSTECTOMY, LAPAROSCOPIC N/A /05/18/15 Dr Suresh @ [facility] ELBOW SURGERY Left 1995 EYE SURGERY cyst removed FRACTURE SURGERY LEFT ARM TODDLER HYSTERECTOMY LOOP INSERTION OVARIAN CYST DRAINAGE 2012 IA COLONOSCOPY W/BIOPSY SINGLE/MULTIPLE N/A 02/20/2018 Procedure: COLONOSCOPY, FLEXIBLE, PROXIMAL TO SPLENIC FLEXURE W/BX, SINGLE/MULT IPLE; Surgeon: Mary Dyson MD; Location: OR [facility]; Service: Endoscopy; Laterality: N/A; IA EGD TRANSORAL BIOPSY SINGLE/MULTIPLE N/A 08/17/2015 Procedure: UPPER GI ENDOSCOPY W/BX, SINGLE/MULTIPLE; Surgeon: Coreen Valiente MD; Location: OR ENDO; Service: Endoscopy; Laterality: N/A; IA ENDOSCOPY UPPER SMALL INTESTINE N/A 04/08/2016 Procedure: SMALL INTESTINAL ENDO/ENTEROSCOPY, > 2ND PORTION DUODENUM, NOT W/ILEUM DX W/WO SPECIMEN (SEP PROC); Surgeon: Bruno Pavon MD; Location: OR ENDO; Service: Endoscopy; Laterality: N/A; IA ENDOSCOPY UPPER SMALL INTESTINE W/BIOPSY N/A 04/08/2016 Procedure: SMALL INTESTINAL ENDO/ENTEROSCOPY, > 2ND PORTION DUODENUM, NOT W/ILEUM W/BX, SINGLE/MULTIPLE; Surgeon: Bruno Pavon MD; Location: OR [facility]; Service: Endoscopy; Laterality: N/A; IA ESOPHAGOGASTRODUODENOSCOPY TRANSORAL DIAGNOSTIC N/A 08/17/2015 Procedure: UPPER GI ENDOSCOPY; DX, W/WO SPECIMEN COLLECTION, BRUSHING/WASHING ( SEP PROC); Surgeon: Coreen Valiente MD; Location: OR ENDO; Service: Endoscopy; Laterality: N/A; IA LAP,RMV ADNEXAL STRUCTURE Bilateral 06/04/2017 Procedure: Total Laparoscopic Hysterectomy,Bilateral Salpingectomy, Cystoscopy/ per DR BAER; Surgeon: Cory Baer MD; Location: OR 5E; Service: Gynecology; Laterality: Bilateral; IA LAP,TUBAL CAUTERY Bilateral 10/24/2014 Procedure: Laparoscopic Bilateral Tubal Ligation with filshie clips per Dr Gilson hay ; Surgeon: Aleida Wilson MD; Location: OR 5[facility]; Service: Gynecology; L aterality: Bilateral; IA RMVL IMPLANTABLE PT-ACTIVATED CAR EVENT RECORDER N/A 04/07/2017 Procedure: RMVL IMPLANTABLE PT-ACTIVATED CAR EVENT RECORDER; Surgeon: Miladis avery MD; Location: [facility]; Service: Cardiology; Laterality: N/A; TUBAL LIGATION [...] balance and weakne ss. PHYSICAL EXAM: Vitals: 01/03/21 1012 01/03/21 1016 BP: 103/71 99/71 BP Location: Right arm Left arm Patient Position: Sitting Sitting Cuff size: Adult Large Adult Large Pulse: 66 Resp: 16 SpO2: 98% Weight: 121.5 kg (267 lb 12.8 oz) Height: 1.753 m Physical Exam Vitals and nursing note reviewed. Constitutional: General: She is not in acute distress. Appearance: She is well-developed. HENT: Head: Normocephalic and atraumatic. Eyes: General: No scleral icterus. Conjunctiva/sclera: Conjunctivae normal. Pupils: Pupils are equal, [...] normal. Breath sounds: Normal breath sounds. No wheezing or rales. Chest: Chest wall: No tenderness. Abdominal: General: Bowel sounds are normal. There is distension. Palpations: Abdomen is soft. Skin: General: Skin is warm and dry. Neurological: Mental Status: She is alert and oriented to person, place, and time. Psychiatric: Mood and Affect: Affect is blunt. Behavior: Behavior normal. Thought Content: Thought content normal. Judgment: Judgment normal. RESULTS: EKG: abnormal and reviewed by myself Sinus with LBBB at 58 bpm. 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 Has known cardiomyopathy secondary to her myot onic dystrophy. Again from a cardiac standpoint she could undergo her desired g astric bypass as her LV systolic function has remained stable. I still would be concerned about her myotonic dystrophy and anesthesia. Dr. Carrasco is aware. Palpitations - will again place event monitor. Tono Mallory MD [facility] documented in this encounter Nursing Notes * Carly Munoz RN - 01/03/2021 10:00 AM EDT Event monitor placed as ordered, and patient instructed on use, with verbal unde rstanding. Patient states understanding to mail event monitor back to [facility] after 14 days use. * Carly Munoz RN - 01/03/2021 10:00 AM EDT 3 month follow-up appointment: Patient reports ongoing, intermittent episodes of chest discomfort. She called the answering service a few days ago with this complaint, but did not present to the ER as advised, as she "did not have time" to go. She denies chest pain currently. Patient reports she took herself off the Mexilitine about 2 weeks ago now. documented in this encounter Plan of Treatment Care Team Description Date Type Specialty 03/10/2021 Clinical Sleep Medicine Support Tono Mallory MD [address] [facility] [address] [facility], [address] [place] [address] [phone] 04/05/2021 Office Visit Cardiology Manisha Carrasco MD [address] [place] [address] [phone] 04/25/2021 Office Visit Neurology Sigrid Frausto MBBS [address] [facility] [address] [place] [address] [phone] 05/08/2021 Office Visit Gastroenterology Date/Time Name Type Priority Associated Diag noses 01/03/2021 10:45 AM EDT EKG 12 Lead ECG Routine Order Schedule Name Type Priority Associated Diag noses Expected: 01/10/2021, Expires: 2 Echocardiogram 2D Cardiac Routine Cardiomyopat hy, dilated, complete ECH10 Services nonischemic Expected: 01/10/2021, Expires: 2 Echocardiogram 2D Cardiac Routine Cardiomyopat hy, dilated, complete ECH10 Services nonischemic Health Maintenance Due Date Last Done Comments [...] Area Manufactur er 12/16/2016 [id number] / / [id number] Clip Filshie Tubal Ligation Ti - Bilateral: COOP ER [id number] Fallopian Tube SURGICAL Implanted: Qty: 1 on 10/24/2014 by Aleida Wilson MD at OR [facility] documented as of this encounter Procedures Comments Procedure Name Priority Date/Time Associated Diag nosis EKG 12-LEAD - CMAXX 01/03/2021 REPORT 10:45 AM EDT EKG 12-LEAD - CMAXX 01/03/2021 REPORT 10:45 AM EDT EKG 12-LEAD Routine 01/03/2021 10:45 AM EDT Procedure Note - Interface, Received Via [employer] - 01/03/2021 4:32 PM EDT Ventricula r Rate: 58 BPM Atrial Rate: 57 BPM QRS Duration: 150 ms Q-T Interval: 468 ms QTC Calculatio n(Bazett): 459 ms R [place]: -9 degrees T [place]: 101 degrees : POOR DATA QUALITY, INTERPRETA TION MAY BE ADVERSELY : AFFECTED : WIDE QRS RHYTHM : LEFT BUNDLE BRANCH BLOCK : ABNORMAL ECG : WHEN COMPARED WITH ECG OF 0 14:25, : WIDE QRS RHYTHM HAS REPLACED SINUS RHYTHM : THIS IS A PRELIMINAR Y RESULT. EKG 12-LEAD Routine 01/03/2021 LBBB (left bund le branch 10:45 AM EDT block) documented in this encounter Results * EKG 12-LEAD - CMAXX REPORT (01/03/2021 10:45 AM EDT) Narrative Performed At This result has an attachment that is n ot available. * EKG 12-LEAD - CMAXX REPORT (01/03/2021 10:45 AM EDT) Narrative Performed At This result has an attachment that is n ot available. * EKG 12 lead EKG1 (01/03/2021 10:45 AM EDT) Specimen Narrative Performed At Ventricular Rate: [facility] EKG 58 BPM Atrial Rate: 57 BPM P-R Interval: 204 ms QRS Duration: 150 ms Q-T Interval: 468 ms QTC Calculation(Bazett): 459 ms R [place]: -9 degrees T [place]: 101 degrees : POOR DATA QUALITY, INTERPRETATION MAY BE ADVERSELY : AFFECTED : SINUS BRADYCARDIA WITH 1ST DEGREE A-V BLOCK : LEFT BUNDLE BRANCH BLOCK : ABNORMAL ECG : WHEN COMPARED WITH ECG OF 18-JUN-2020 14:25, : NO SIGNIFICANT CHANGES NOTED : Confirmed by Tono Mallory ([id number]) on 01/07/2021 9:32:10 AM Procedure Note Interface, Received Via [employer] - 01/07/2021 9:32 AM EDT Ventricular Rate: 58 BPM Atrial Rate: 57 BPM P-R Interval: 204 ms QRS Duration: 150 ms Q-T Interval: 468 ms QTC Calculation(Bazett): 459 ms R [place]: -9 degrees T [place]: 101 degrees : POOR DATA QUALITY, INTERPRETATION MAY BE ADVERSELY : AFFECTED : SINUS BRADYCARDIA WITH 1ST DEGREE A-V BLOCK : LEFT BUNDLE BRANCH BLOCK : ABNORMAL ECG : WHEN COMPARED WITH ECG OF 18-JUN-2020 14:25, : NO SIGNIFICANT CHANGES NOTED : Confirmed by Tono Mallory ([id number]) on 01/07/2021 9:32:10 AM Performing Organization Address City/State/ZIP Code P brandon Number [facility] EKG documented in this encounter Visit Diagnoses Diagnosis Cardiomyopathy, dilated, nonischemic - Primary Other primary cardiomyopathies LBBB (left bundle branch block) Other left bundle branch block Myotonic dystrophy, type 1 Myotonic muscular dystrophy Chest discomfort Other chest pain documented in this encounter
--- OUTSIDE RECORDS SUMMARY | 2021-05-24 20:43 | CCD | Summary of Care ---
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 Name Role Phone Ernesto Ferrer MD PCP Reason for Visit * Auth/Cert Referred By Contact Referred To Contact Status Reason Specialty Diagnoses / Procedures Diagnoses Chest pain cardiomyopathy, chest pain Encounter Details Care Team Description Date Type Department Fahad Valerio MD 90 [facility] [address] [place] [address] 02/26/2021 [facility] 10G GENERAL MEDICIN E - Encounter [address] 02/28/2021 [place] [address] Allergies Comments Active Allergy Reactions Severity Noted [...] as of this encounter (statuses as of 02/28/2021) Medications End Date Status Medication Sig Dispensed [...] daily 12 hours on 12 hours off 03/03/2021 Active Polyethylene Glycol 3350 Take 1 packet 3 each 0 17 GM Oral Packet by mouth Two 1 (MIRALAX) Times Daily for 3 daysPlease substitute bottle for packets, if packets are unavailable. 03/30/2021 Active Senna 176 MG/5ML Oral Take 10 mLs 300 mL 0 02/17 Syrup (SENOKOT) by mouth 1 nightly 02/28/2021 Discontinued (Stop Taking at Discharge) Mexiletine HCl 150 MG Take 1 60 capsule 11 04/19 Oral Capsule (MEXITIL) capsule by 0 mouth Two Times Daily 02/28/2021 Discontinued (Stop Taking at Discharge) Furosemide 20 MG Oral Take 1 tablet 30 tablet 5 Tablet (LASIX) by mouth 1 daily documented as of this encounter (statuses as of 02/28/2021) Active Problems Problem Noted Date Syncope 02/28/2021 Status post placement of implantable [...] as of this encounter (statuses as of 02/28/2021) Resolved Problems Problem Noted Date Resolved Date [...] as of this encounter (statuses as of 02/28/2021) Immunizations Name Administration Dates Next Due documented [...] Signs Reading Time Taken Comments Vital Sign 107/74 02/28/2021 8:45 PM EDT Blood Pressure 86 02/28/2021 8:45 PM EDT Pulse 36.9 C (98.4 F) 02/28/2021 8:45 PM EDT Temperature 18 02/28/2021 8:45 PM EDT Respiratory Rate 96% 02/28/2021 8:45 PM EDT Oxygen Saturation - - Inhaled Oxygen Concentration 112 kg (246 lb 14.6 oz) 02/27/2021 10:00 AM EDT Weight 175.3 cm (5' 9") 02/26/2021 9:55 PM EDT Height 36.46 02/26/2021 9:55 PM EDT Body Mass Index documented in this encounter Discharge Instructions * Instructions* Maria Esther Mccullough NP - 02/28/2021 11:45 AM EDT Images from the original note were not included. 1) Please take your medications as prescribed. 2) Please follow up with your PCP in [address] Mallory in 2 weeks to f abbey up on your loop recorder. Guidelines for Implantable Device Remote Monitoring Service INCISION SITE: Following the procedure, the wound will be covered with surgical glue. Allow glu e to fall off on its own. DO NOT touch your incision while it is healing. DO NOT use any oils, lotions, po wders or ointments on or close to your incision. It must remain clean and dry. Avoid wearing clothes that may rub against your wound such as bra straps and tig ht shirts till the wound is healed. Wear what you feel is comfortable. Call your physician if you experience any of the following: If you notice any redness, swelling, pain or drainage at the incision site. Fever over 101 degrees F or 38.5 degrees C and/or chills with a fever may mean y ou have an infection and will need to be treated right away. Bathing Do not get the incision site wet for at least 24hrs. Following the 24hrs, you ma y take a shower, allowing the water to run over the wound. Do not wash/scrub the area and pat the wound gently with a towel to dry until healed. Always use good hand washing with soap and water when touching the healed incisi on. DIET: NO restrictions MEDICATIONS: Take all medications as prescribed. ACTIVITIES: You may return to your usual activities right after your procedure It is OK to walk through anti-theft or metal detector equipment. Show [employer] workers your ILR ID card if the alarm sounds. It is OK to have an X-Ray, CT scan, Mammogram or an MRI (no waiting period for M RI). TRAVEL: When traveling for a prolonged period of time, please be sure to bring monitor w ith you. Please note that if you do not bring your monitor, we will not be receiving any information from your device. SETTING UP THE HOME MONITOR: Once you are home, please keep home monitor plugged into a working electrical ou tlet (not an extension cord/surge protector) in your bedroom and place monitor w ithin 6 feet of where you sleep. Ensure that transmitter is positioned tightly in the monitor base so that proper charging can be completed. The monitor automatically sends the data/alerts every night between 12am-5am. Th is time is programmable based on your sleeping patterns and work schedule. Alba solomon let the clinic know if you are not in bed during this time frame. See pictures below for instructions. If you would like to transition to using th e Gordy for home monitoring you can visit [email or web address]. CLINIC FOLLOW UP: You will be scheduled for a follow up in the office. Your follow up may be up to 12 months from time of discharge based on your specific medical condition. Our clinic will also receive a summary report every 31 days which will be evalua livia by the physician and billed to your insurance company. Depending on your ins urance, you may have a copay and/or balance for the cost of the monitoring servi ce. All event reports and summary reports will be evaluated by the cardiologists and you will be contacted on anything that requires action. Our office may contact you to send a manual transmission if we need more detail regarding an alert event or to obtain additional episode information not receive d. We will make three attempts via telephone number listed, followed by a letter to your address on file. After all unsuccessful attempts you will be disconnected from remote monitoring services and we will be unable to collect data from devic e unless an in-office interrogation is performed. This may mean there is a signi ficant time lag in the diagnosis of abnormal rhythms and subsequent therapeutic interventions. TROUBLESHOOTING: The patient services line for help with your Medtronic monitor is . The home monitor utilizes a cellular signal in the vicinity of your home locatio n. If you have poor cell service, please contact our office. Prolonged monitor disconnection message will be sent to the clinic after 14 days of attempted but failed communication. The clinic will then call you to trouble shoot. CLINIC HOURS: Our clinic monitoring hours are: Thursday through Thursday 8am-4:30pm EST. The Loop Recorder is a monitoring device only. It does not provide any treatment for symptoms or rhythm problems. If you are having an emergency or experiencing any acute symptoms such as near p assing out or chest pain, please call 911. Call our office at [phone] with any non-urgent needs or questions. If you transmit after business hours or on we ekends/holidays we will not review data until the next business day, which could delay necessary medical treatment. documented in this encounter Progress Notes * Mc Dean, RN - 02/28/2021 9:54 PM EDT Assumed care of pt [id number]. Read and reviewed previous eight arm operator with no maday nges noted. Pt midline removed and measured 14cm. Pt was wheeled down to main en trance by staff to be picked up via family. * Tammi Navarrete RN - 02/28/2021 2:41 PM EDT Case Management Screen & Assessment Patient Name: Toni Cortez Gender: female Date of : 1990 Admission Dx: Chest pain [R07.9] Age: 30 y.o. Admission: 02/26/2021 9:38 PM Attending Provider: Fahad Valerio MD High Risk Criteria - Prior to Admission/Upon Arrival [facility]-Type of Residence: Private Residence [facility]- Home Care Services: No Limited Home Supports/Lives Alone?: No Multi trauma/Critical care/Step down admit?: No Head/Spinal cord injury?: No Self Pay: No Multiple ED visits?: No Related/Unplanned readmission within 30 days?: No Complex/New medical issues: evaluation for need for pacemaker Relevant comorbidities: myotonic dystrophy, chronic constipation, dilated cardio myopathy, 1st degree AV block, and LBBB transferred Screening Outcome Social Work Consult Needed?: No Further Case Management Needs?: No Case Management Needs Chart Review PCP Verified?: Patient has PCP Prior to Admission: Functional/Environmental Assessment Bathing: Independent Dressing: Independent Toileting: Independent Medication administration: Independent Transfers: Independent Ambulation: Independent Meal preparation: Independent Number of stairs into home: 0 Number of stairs to bathroom: 0 (bathroom on both floors) Number of stairs to bedroom: 12 Durable Medical Equipment (DME): (none) Case Management Re-Review Case Management Re-Review Needed?: Yes Case Management Re-Review Date: 03/06/21 Discharge Planning Living Arrangements: Spouse/significant other, Children Support Systems: Spouse/significant other, Parent Type of Residence: Private residence Is this patient appropriate for transfer [facility] No Patient/family informed of need for discharge planning?: Yes Patient expects to be discharged to:: home Patient/Agent informed of choice and given written list?: Patient/agent declined list Does the patient need discharge transport arranged?: No Note: Pt is s/p Loop recorder. Pt is hoping for dc later today. significant ot her will tranportt home if so. [facility]. Case m anagment role explained. Patient was independent in their care prior to admissio n. Supportive family at home. No anticipated skilled needs at time of discharge. Pt in agreement with d/c plan to home with family supports once medically ready . CM available if discharge needs arise. Tammi Navarrete * Negin Martínez RN - 02/27/2021 12:55 PM EDT Bedside nurse Stoney Paniagua RN aware Midline is cleared for use per orders with al l new IV administration sets. Midline inserted by Tianna Daniels RN. * Rachael Marin - 02/27/2021 12:25 PM EDTSummary: Outside Repairer Special Note Assessment was preformed, P/t morning medication given. P/t leads were removed f or shower. P/t showered independently and preformed ADLs, new sheets were placed on bed. P/t had small BM, watery w/ small amounts of blood. P/t leads were plac ed back, IV was flushed and infusion of NS started at 10 ml/hr to keep line bowers nt. P/t c/o of chest pain 01/26. * Bc Paniagua RN - 02/27/2021 9:00 AM EDT Pt c/o /10 chest pain. RN attempted for AM trop drawn. Not successful. Primary team MD Otero notified. Request for an additional line made. No new orders at t his time. RN will continue to monitor. * Rafael Cherry - 02/27/2021 12:44 AM EDT Pt is extremely hard IV stick, Current IV infiltrated after IV tylenol administr ation and had to be removed. 3 RN's attempted to replace IV with hot packing as well and couldn't. SWAT and PICC team was notified. PICC team Maykel.H. Stated he alyx l come and attempt IV. SWAT was able to get blood draw. Per pt , previous she barillas d to have PICC placed for CT d/t no IV access. * Nuno Black RN - 02/26/2021 10:44 PM EDT Patient received from outside hospital to [facility] 37. A/Ox4. Skin WDL. Upon asses sment patient reports of 8/10 chest pain radiating to spine and 7/10 headache p/ s attributed to previous SL nitroglycerin given in outside hospital. EKG obtaine d. Covering admitting providers notified and aware. Now in the room seeing patie nt. See VSS and assessment in flowsheets. Nuno Black RN 02/26/2021 * Nuno Black RN - 02/26/2021 10:43 PM EDT Images from the original note were not included. If wound was present on admission, this documentation was sent to attending prov ider for cosignature. documented in this encounter Miscellaneous Notes * Provider Notified - Dyan Dinero RN - 02/28/2021 6:55 PM EDT 1839 AVS was ready to print, however this RN and René Espinoza MD noticed inc reased HR. 500 ml NS bolus order, see MAR. Discharge is still planned as expecte d at this time. 185 current HR 77 and with frequent PVC's. 1914 AVS reviewed and signed. Pt verbally acknlowledged understanding of loop re kassy, medical collections representative and follow up appointments. Oncoming RN will remove IV's. * Operative Note - Miladis Hua MD - 02/28/2021 3:19 PM EDT Brief Procedure/Operative Note Date of operation/procedure: 02/28/2021 Surgical Lo Pre-Op Diagnosis: Dizziness [R42] Syncope, unspecified syncope type [R55] Post-Op Diagnosis: Dizziness [R42] Syncope, unspecified syncope type [R55] Procedure(s): INSERTION SUBQ CARDIAC RHYTHM MONITOR W/PRGRMG Surgeon(s): Miladis Hua MD Primary: Miladis Hua MD Anesthesia Type: Local No anesthesia staff entered. Procedure Start and End Times: For time of surgery refer to operative nursing te mplate. Est. Blood loss: Minimal Blood Administered: none Fluids Given: none Grafts / Implants: Implant Name Type Inv. Item Serial No. Marking Stitcher Lot No. LRB No. Used Action RECORDER LOOP REVEAL LINQLINQSYS - [id number] Loop Recorder RECORDER LOOP REVEA L LINQLINQSYS [id number] [employer] XOMED Left 1 Implanted Loop Recorder Implantation Indications Dizziness [R42] Syncope, unspecified syncope type [R55] History 30 year-old female with known myotonic dystrophy, first degree AV block and LBBB , admitted with syncope of unclear etiology. No arrhythmias documented on inpati ent telemetry, thus patient referred for implantable loop recorder placement for prison ambulatory cardiac telemetry monitoring to assess for tachy or seven arrhythmias as possible etiology of syncope. Procedure performed: Successful implantation of a loop recorder. Surgeon:Miladis Hua MD Discharge and follow-up The patient is to follow up with the cardiology clinic as scheduled. Procedure narrative The risks, benefits, and alternatives to the procedure were explained to the pat ient and informed consent was obtained. Pulse and blood pressure were monitored. The procedure was performed with local anesthesia. The upper chest was prepped and draped in the usual sterile fashion. Local anesthesia: Lidocaine to the acce ss site. A subcutaneous left infraclavicular pocket was constructed. A loop ezra rder ( Medtronic, Reveal LINQ) was implanted. R wave measured at 0.7 mV. Pocket closure was obtained. The skin was approximated with interrupted 4-0 Vicryl self resorbing suture followed by Dermabond (2-octyl cyanoacrylate). Complications No complications occurred. * Provider Notified - Dyan Dinero RN - 02/28/2021 12:48 PM EDT 1200 Team rounding and at bedside. Pt stated they have had chest pain 01/26. Curr ently unknown etiology per Dr. Valerio and are investigating. Pt appears comfo rtable and without distress. Will continue to monitor. * Plan of Care - Mc Dean RN - 02/28/2021 4:28 AM EDT Problem: Inadequate breathing pattern Goal: Respiratory rate and effor will be within normal limits for the plan Outcome: Progressing Goal: Patient will maintain patent airway Outcome: Progressing * Plan of Care - Nuno Black RN - 02/26/2021 10:35 PM EDT Problem: Inadequate breathing pattern Goal: Respiratory rate and effor will be within normal limits for the plan Outcome: Progressing Goal: Patient will maintain patent airway Outcome: Progressing documented in this encounter Plan of Treatment Care Team Description Date Type Specialty 03/10/2021 Clinical Sleep Medicine Support [facility] [address] [place] [address], [address] [place] [address] [phone] 03/15/2021 Office Visit Cardiology Alva Mallory MD [facility] [address] [place] [address], [address] [place] [address] [phone] 04/05/2021 Office Visit Cardiology Manisha Carrasco MD [address] [place] [address] [phone] 04/25/2021 Office Visit Neurology Sigrid Frausto MBBS [address] [place] [address] [phone] 05/08/2021 Office Visit Gastroenterology Date/Time Name Type Priority Associated Diag noses 02/26/2021 10:16 PM EDT EKG 12 Lead ECG Routine 02/27/2021 11:23 AM EDT Echocardiogram 2D Cardiac Routine Complete with Contrast Services Health Maintenance Due Date Last Done Comments [...] ot Implanted Type Area Manufactur er 04/18/2022 [id number] / [id number] / Recorder Loop Reveal Linqlinqsys - Loop Left: Chest [employer] [id number] Recorder Wall [employer] Implanted: Qty: 1 on 02/28/2021 by Miladis Hua MD at OR [facility] 12/16/2016 [id number] / [id number] Clip Filshie Tubal Ligation Ti - Bilateral: COOP ER [id number] Fallopian Tube SURGICAL Implanted: Qty: 1 on 10/24/2014 by Aleida Wilson MD at OR 5E documented as of this encounter Procedures Comments Procedure Name Priority Date/Time Associated Diag nosis POTASSIUM Routine 02/28/2021 12:13 PM EDT CBC Routine 02/28/2021 8:09 AM EDT COMPREHENSIVE METABOLIC Routine 02/28/2021 PANEL 8:09 AM EDT BASIC METABOLIC PANEL Routine 02/27/2021 6:13 PM EDT EKG 12-LEAD - CMAXX 02/27/2021 REPORT 6:07 PM EDT EKG 12-LEAD - CMAXX 02/27/2021 REPORT 6:07 PM EDT EKG 12-LEAD Routine 02/27/2021 6:07 PM EDT TROPONIN T HIGH Routine 02/27/2021 SENSITIVITY 1:32 PM EDT D-DIMER, QUANTITATIVE Routine 02/27/2021 1:32 PM EDT ECHOCARDIOGRAM 2D Routine 02/27/2021 COMPLETE WITH CONTRAST 11:23 AM EDT XR ABDOMEN AP ABD SUPINE Routine 02/27/2021 ONLY 58257 2:11 AM EDT TROPONIN T HIGH STAT 02/27/2021 SENSITIVITY 1:55 AM EDT TROPONIN T HIGH Routine 02/26/2021 SENSITIVITY 11:19 PM EDT CBC AND DIFFERENTIAL Routine 02/26/2021 11:19 PM EDT COMPREHENSIVE METABOLIC Routine 02/26/2021 PANEL 11:19 PM EDT EKG 12-LEAD - CMAXX 02/26/2021 REPORT 10:16 PM EDT EKG 12-LEAD - CMAXX 02/26/2021 REPORT 10:16 PM EDT EKG 12-LEAD Routine 02/26/2021 10:16 PM EDT EKG 12-LEAD Routine 02/26/2021 10:16 PM EDT Procedure Note - Interface, Received Via [employer] - 02/26/2021 10:17 PM EDT Ventricula r Rate: 72 BPM Atrial Rate: 72 BPM P-R Interval: 208 ms QRS Duration: 162 ms Q-T Interval: 462 ms QTC Calculatio n(Bazett): 505 ms P [place]: 62 degrees R [place]: -21 degrees T [place]: 97 degrees : SINUS RHYTHM WITH SINUS ARRHYTHMIA : LEFT BUNDLE BRANCH BLOCK : ABNORMAL ECG : WHEN COMPARED WITH ECG OF 10:45, : SINUS RHYTHM HAS REPLACED WIDE QRS RHYTHM : THIS IS A PRELIMINAR Y RESULT. documented in this encounter Results * Potassium (02/28/2021 12:13 PM EDT) Potassium 3.8 3.4 - 5.1 mmol/L [facility] Clin Pathology Specimen Plasma Performing Organization Address City/State/ZIP Code P brandon Number [facility] [address] [address] PATHOLOGY [facility] [address] [place], [place] [address] Clin Pathology * CBC (02/28/2021 8:09 AM EDT) White Blood 5.7 4.00 - 10.00 10*3/uL [facility] Red Blood Cell 4.47 4.10 - 5.30 10*6/uL [facility] Upsta te [facility] Clin Pathology Hemoglobin 14.3 11.5 - 15.5 g/dL [facility] Clin Pathology Hematocrit 43.5 36.0 - 45.0 % [facility] Clin Pathology Mean Cell 97.2 (H) 80.0 - 96.0 fL [facility] Volume [facility] Univ Clin Pathology Mean Cell 32.0 27.0 - 33.0 pg [facility] [place] [facility] Hemoglobin Med Univ Clin Pathology Mean Cell Hgb 32.9 32 - 36 g/dL [facility] [place] [facility] Conc [facility] Univ Clin Pathology Red Cell Dist 13.7 11.5 - 14.5 % [facility] [place] [facility] Width [facility] Clin Pathology Platelet Count 177 150 - 400 10*3/uL [facility] [place] [facility] Comment: Med [facility] Clin Unconfirmed Pathology Confirmed Specimen EDTA Whole Blood Performing Organization Address City/State/ZIP Code P brandon Number [facility] [address] [place], [place] [address] PATHOLOGY [facility] [address] [place], [place] [address] Clin Pathology * Comprehensive Metabolic Panel (02/28/2021 8:09 AM EDT) Albumin 4.2 3.5 - 5.2 g/dL [facility] Clin Pathology Bilirubin, 0.6 <1.2 mg/dL [facility] [place] [facility] Total [facility] Clin Pathology Calcium 9.4 8.6 - 10.0 mg/dL [facility] Clin Pathology Chloride 105 98 - 107 mmol/L [facility] Clin Pathology Creatinine 0.79 0.50 - 0.90 mg/dL [facility] Clin Pathology Glucose 79 70 - 140 mg/dL [facility] Pathology Alkaline 87 35 - 104 U/L [facility] [place] [facility] Phosphatase [facility] Clin Pathology Potassium 3.9Comment: Hemolyzed 3.4 - 5.1 mmol/L [facility] Clin Pathology Total Protein 7.7 6.4 - 8.3 g/dL [facility] Pathology Sodium 138 136 - 145 mmol/L [facility] Clin Pathology AST/SGO 31Comment: Hemolyzed <32 U/L [facility] ate [facility] Clin Pathology Blood Urea 10 6 - 20 mg/dL [facility] [place] [facility] Nitrogen [facility] Univ Clin Pathology Osmolality, Leonardo 284 275.0 - 300.0 [facility] [place] [facility] mosm/kg [facility] Clin Pathology BUN/Cre Ratio 13 [facility] Clin Pathology Bicarbonate 20 (L) 22 - 29 mmol/L [facility] Pathology ALT/SGP 27 <33 U/L [facility] Pathology Anion Gap 13 8 - 15 mmol/L [facility] Clin Pathology GFR Non >90 >60 mL/min/1.73m2 [facility] [place] [facility] Med Univ Clin CDK-EPI Pathology GFR >90 >60 mL/min/1.73m2 [facility] 2009 Med [facility] Clin CKD-EPI Pathology Specimen Plasma Performing Organization Address [facility] P brandon Number [facility] [address] [place] [address] [address] Clin Pathology * Basic Metabolic Panel (02/27/2021 6:13 PM EDT) Bicarbonate 20 (L) 22 - 29 mmol/L [facility] Pathology Chloride 109 (H) 98 - 107 mmol/L [facility] Clin Pathology Creatinine 0.76 0.50 - 0.90 mg/dL [facility] Pathology Glucose 103 70 - 140 mg/dL [facility] Pathology Potassium 3.4 3.4 - 5.1 mmol/L [facility] Pathology Sodium 142 136 - 145 mmol/L [facility] Clin Pathology Blood Urea 9 6 - 20 mg/dL [facility] [place] [facility] Nitrogen [facility] Univ Clin Pathology Anion Gap 13 8 - 15 mmol/L [facility] Clin Pathology Osmolality, Leonardo 293 275.0 - 300.0 [facility] [place] [facility] mosm/kg [facility] Clin Pathology BUN/Cre Ratio 12 [facility] Clin Pathology Calcium 8.5 (L) 8.6 - 10.0 mg/dL [facility] Clin Pathology GFR Non >90 >60 mL/min/1.73m2 [facility] 2008 Med Univ Clin CDK-EPI Pathology GFR >90 >60 mL/min/1.73m2 [facility] 2008 Med [facility] Clin CKD-EPI Pathology Specimen Plasma Performing Organization Address City/[facility]/ZIP Code P brandon Number [facility] [address] [place], [place] [address] [address] Clin Pathology * EKG 12-LEAD - CMAXX REPORT (02/27/2021 6:07 PM EDT) Narrative Performed At This result has an attachment that is n ot available. * EKG 12-LEAD - CMAXX REPORT (02/27/2021 6:07 PM EDT) Narrative Performed At This result has an attachment that is n ot available. * EKG 12 Lead (02/27/2021 6:07 PM EDT) Specimen Narrative Performed At Ventricular Rate: [facility] EKG 78 BPM Atrial Rate: 78 BPM P-R Interval: 192 ms QRS Duration: 166 ms Q-T Interval: 440 ms QTC Calculation(Bazett): 501 ms R [place]: -14 degrees T [place]: 132 degrees : SINUS RHYTHM : LEFT BUNDLE BRANCH BLOCK : ABNORMAL ECG : WHEN COMPARED WITH ECG OF 26-FEB-2021 22:16, : NO SIGNIFICANT CHANGE WAS FOUND : Confirmed by Timoteo Kaur ( 64) on 02/28/2021 9:18:30 : AM Procedure Note Interface, Received Via [employer] - 02/28/2021 9:18 AM EDT Ventricular Rate: 78 BPM Atrial Rate: 78 BPM P-R Interval: 192 ms QRS Duration: 166 ms Q-T Interval: 440 ms QTC Calculation(Bazett): 501 ms R [place]: -14 degrees T [place]: 132 degrees : SINUS RHYTHM : LEFT BUNDLE BRANCH BLOCK : ABNORMAL ECG : WHEN COMPARED WITH ECG OF 26-FEB-2021 22:16, : NO SIGNIFICANT CHANGE WAS FOUND : Confirmed by Timoteo Kaur ([id number]) on 02/28/2021 9:18:30 : AM Performing Organization Address City/State/ZIP Code P brandon Number [facility] * D-dimer, quantitative (02/27/2021 1:32 PM EDT) D-DIMER 0.32Comment: A negative <0.50 ug/mL{FEU} [facility] D-dimer result can rule out [facility] venous thromboembolism in Pathology patients with low or moderate pretest probability. Specimen Plasma Performing Organization Address City/State/ZIP Code P brandon Number [facility] [address] [place], [place] [address] [address] Clin Pathology * Troponin T High Sensitivity (02/27/2021 1:32 PM EDT) Troponin T High 31 (H) <14 ng/L [facility] [place] [facility] Sensitivity [facility] Pathology Specimen Plasma Performing Organization Address City/[facility]/ZIP Code P brandon Number [facility] [address] [place], [place] [address] PATHOLOGY [facility] [address] [place], [place] [address] Clin Pathology * XR Abdomen AP Abd Supine Only (02/27/2021 2:11 AM EDT) Specimen Narrative Performed At [facility] PROCEDURE INFORMATION: Exam: XR Abdomen Exam date and time: 02/27/2021 1:58 AM Age: 30 years old Clinical indication: Other: Abdominal p ain, constipation x 3 weeks TECHNIQUE: Imaging protocol: XR of the abdomen. Views: Frontal supine view of the abdom en. 1 View. COMPARISON: CT ABDOMEN PELVIS WITH AND WITHOUT CONT RAST [id number] 02/17/2018 3:22 PM FINDINGS: Gastrointestinal tract: Nonobstructive bowel gas pattern. Organs: Surgically absent gallbladder. Bones/joints: No acute osseous abnormal ity. IMPRESSION: No acute findings. THIS DOCUMENT HAS BEEN ELECTRONICALLY S IGNED BY ALVA KHAN MD Procedure Note Interface, Received Via [facility] - 02/27/2021 3:25 AM EDT PROCEDURE INFORMATION: Exam: XR Abdomen Exam date and time: 02/27/2021 1:58 AM Age: 30 years old Clinical indication: Other: Abdominal pain, constipation x 3 weeks TECHNIQUE: Imaging protocol: XR of the abdomen. Views: Frontal supine view of the abdomen. 1 View. COMPARISON: CT ABDOMEN PELVIS WITH AND WITHOUT CONTRAST [id number] 02/17/2018 3:22 PM FINDINGS: Gastrointestinal tract: Nonobstructive bowel gas pattern. Organs: Surgically absent gallbladder. Bones/joints: No acute osseous abnormality. IMPRESSION: No acute findings. THIS DOCUMENT HAS BEEN ELECTRONICALLY SIGNED BY ALVA KHAN MD Performing Organization Address City/State/ZIP Code P brandon Number [facility] [address] [place] [address] * Troponin T High Sensitivity (02/27/2021 1:55 AM EDT) Troponin T High 26 (H) <14 ng/L [facility] Pathology Specimen Plasma Performing Organization Address City/State/ZIP Code P brandon Number [facility] [address] [place], [place] [address] PATHOLOGY [facility] [address] [place], [place] [address] Clin Pathology * CBC and Differential (02/26/2021 11:19 PM EDT) White Blood 6.5 4.00 - 10.00 10*3/uL [facility] Pathology Red Blood Cell 4.23 4.10 - 5.30 10*6/uL [facility] Pathology Hemoglobin 13.7 11.5 - 15.5 g/dL [facility] Pathology Hematocrit 41.0 36.0 - 45.0 % [facility] Pathology Mean Cell 96.8 (H) 80.0 - 96.0 fL [facility] Volume [facility] Pathology Mean Cell 32.4 27.0 - 33.0 pg [facility] Hemoglobin [facility] Pathology Mean Cell Hgb 33.4 32 - 36 g/dL [facility] Pathology Red Cell Dist 13.7 11.5 - 14.5 % [facility] [place] [facility] Width [facility] Pathology Platelet Count 284Comment: Confirmed 150 - 400 10*3/uL [facility] Pathology Differential Manual Diff [facility] Type [facility] Pathology Neutrophil 74 % [facility]ology Lymphocyte 22 % [facility] Pathology Monocyte 4 % [facility] Pathology Abs Neutrophil 5.07 1.80 - 7.00 10*3/uL [facility] Pathology Abs Lymphocyte 1.48 1.20 - 4.00 10*3/uL [facility] Pathology Abs Monocyte 0.26 0.00 - 0.80 10*3/uL [facility] Pathology Specimen EDTA Whole Blood Performing Organization Address City/[facility]/ZIP Code P brandon Number [facility] [address] [place], [place] [address] [address] Clin Pathology * Troponin T High Sensitivity (02/26/2021 11:19 PM EDT) Troponin T High 24 (H)Comment: Hemolyzed <14 ng/L [facility] Pathology Specimen Plasma Performing Organization Address City/[facility]/ZIP Code P brandon Number [facility] [address] [place], [place] [address] [place], [place] [address] Clin Pathology * Comprehensive Metabolic Panel (02/26/2021 11:19 PM EDT) Albumin 4.2 3.5 - 5.2 g/dL [facility] Pathology Bilirubin, 0.5 <1.2 mg/dL [facility] Total [facility] Pathology Calcium 9.2 8.6 - 10.0 mg/dL [facility] Pathology Chloride 105 98 - 107 mmol/L [facility]ology Creatinine 0.88 0.50 - 0.90 mg/dL [facility] Pathology Glucose 94 70 - 140 mg/dL [facility] Pathology Alkaline 84 35 - 104 U/L [facility] Phosphatase [facility] Pathology Potassium 4.2Comment: Hemolyzed 3.4 - 5.1 mmol/L [facility] Pathology Total Protein 7.6 6.4 - 8.3 g/dL [facility] Pathology Sodium 140 136 - 145 mmol/L [facility] Pathology AST/SGO 39 (H)Comment: Hemolyzed <32 U/L [facility] Pathology Blood Urea 10 6 - 20 mg/dL [facility] Nitrogen [facility] Pathology Osmolality, Leonardo 289 275.0 - 300.0 [facility] mosm/kg [facility] Pathology BUN/Cre Ratio 11 [facility] Pathology Bicarbonate 21 (L) 22 - 29 mmol/L [facility] Pathology ALT/SGP 28Comment: Hemolyzed <33 U/L [facility] Anion Gap 14 8 - 15 mmol/L [facility] Pathology GFR Non 88 >60 mL/min/1.73m2 [facility] Upstat e [place] 2008 Med [facility] CDK-EPI Pathology GFR >90 >60 mL/min/1.73m2 [facility] [place] 2009 [facility] CKD-EPI Pathology Specimen Plasma Performing Organization Address City/State/ZIP Code P brandon Number [facility] [address] [place], [place] [address] PATHOLOGY [facility] [address] [place], [place] [address] Clin Pathology * EKG 12-LEAD - CMAXX REPORT (02/26/2021 10:16 PM EDT) Narrative Performed At This result has an attachment that is n ot available. * EKG 12 Lead (02/26/2021 10:16 PM EDT) Specimen Narrative Performed At Ventricular Rate: [facility] EKG 72 BPM Atrial Rate: 72 BPM P-R Interval: 208 ms QRS Duration: 162 ms Q-T Interval: 462 ms QTC Calculation(Bazett): 505 ms P [place]: 62 degrees R [place]: -21 degrees T [place]: 97 degrees : SINUS RHYTHM WITH 1ST DEGREE A-V BLOC K WITH SINUS ARRHYTHMIA : LEFT BUNDLE BRANCH BLOCK : ABNORMAL ECG : WHEN COMPARED WITH ECG OF 03-JAN-2021 10:45, : NO SIGNIFICANT CHANGES NOTED : Confirmed by Alva Mallory ([id number]) on 02/27/2021 9:40:52 AM Procedure Note Interface, Received Via [employer] - 02/27/2021 9:41 AM EDT Ventricular Rate: 72 BPM Atrial Rate: 72 BPM P-R Interval: 208 ms QRS Duration: 162 ms Q-T Interval: 462 ms QTC Calculation(Bazett): 505 ms P [place]: 62 degrees R [place]: -21 degrees T [place]: 97 degrees : SINUS RHYTHM WITH 1ST DEGREE A-V BLOCK WITH SINUS ARRHYTHMIA : LEFT BUNDLE BRANCH BLOCK : ABNORMAL ECG : WHEN COMPARED WITH ECG OF 03-JAN-2021 10:45, : NO SIGNIFICANT CHANGES NOTED : Confirmed by Alva Mallory ([id number]) on 02/27/2021 9:40:52 AM Performing Organization Address City/State/ZIP Code P brandon Number [facility] EKG * EKG 12-LEAD - CMAXX REPORT (02/26/2021 10:16 PM EDT) Narrative Performed At This result has an attachment that is n ot available. documented in this encounter Visit Diagnoses Diagnosis Chest pain - Primary Chest pain, unspecified Syncope Syncope and collapse Status post placement of implantable lo op recorder Other specified cardiac device in situ documented in this encounter Administered Medications Action Date Dose Rate Site Medication Order MAR Action 02/27/2021 4:55 PM EDT 650 mg acetaminophen (TYLENOL) tablet 650 mg Given 650 mg, Oral, Every 8 hours PRN, Mild Pain (Pain Scale Score 1-3), Starting o n 02/27/21 at 1645, For 3 days, Maximu m daily dose of acetaminophen is 3,000 mg from all sources in 24 hours. bisacodyl (DULCOLAX) suppository 10 mg 10 mg, Rectal, Daily PRN, Constipation, Starting on Thu02/27/21 at 0412, For 30 days calcium carbonate (TUMS) chewable table t 1,000 mg 1,000 mg, Oral, Three Times Daily-PRN, Indigestion, Starting on Thu02/27/21 at 0642, For 30 days 02/27/2021 4:54 PM EDT 1 patch Other lidocaine (LIDODERM) 5 % patch 1 patch Patch 1 patch, Transdermal, Daily Standard, Applied First dose on Thu02/27/21 at 1700, For 3 days, Apply to lower back on the right side 12 hours on - 12 hours off 02/27/2021 12:57 PM EDT 3 mLs Right Ar m lidocaine (XYLOCAINE) 1 % injection 5 mL Given 5 mL, Subcutaneous, Once PRN, For MIDLINE Catheter insertion, Starting on Thu02/27/21 at 1151, For 30 days ondansetron (ZOFRAN) tablet 4 mg 4 mg, Oral, Every 8 hours PRN, Nausea , Vomiting, Starting on Pallavi 02/28/21 at 1019, For 30 days perflutren lipid microspheres (DEFINITY ) injectable suspension 9.78 mg 9.78 mg (1.5 mL), Intravenous, Once PRN, Other, Echo imaging enhancement, Starting on Thu02/27/21 at 1123, For 72 hours 02/28/2021 9:06 AM EDT 17 g polyethylene glycol (MIRALAX) packet 17 Given g 17 g, Oral, 2 Times Daily, First dose (after last modification) on Thu 1 at 0900, For 7 days, Mix in 8 ounces of water, juice or milk. Avoid use in patients who require thickened liquids due to potential increased risk for aspiration. 17 g Given 02/27/2021 9:24 PM EDT 17 g Given 02/27/2021 9:01 AM EDT 02/27/2021 2:16 AM EDT 10 mLs senna (SENOKOT) syrup 10 mL Given 10 mL, Oral, Nightly, First dose on Thu02/27/21 at 0200, For 30 days sodium chloride (preservative free) 0.9 % flush 10 mL 10 mL, Intravenous, PRN, Line Care, Starting on Thu02/27/21 at 1151, For 30 days, When catheter is not in use flush with 10mL Sodium Chloride. Every 12h. Reference CM P-05 Extended Dwell/[place] e Peripheral Catheter. sodium chloride (preservative free) 0.9 % flush 10 mL 10 mL, Intravenous, PRN, Line Care, Starting on Thu02/27/21 at 1151, For 30 days, Flush with 10 mL Sodium Chloride before and after infusions or blood sampling. Reference CM-05 Extended Dwell/Midline Peripheral Catheter. Action Date Dose Rate Site Medication Order MAR Action 02/26/2021 11:32 PM EDT 1,000 mg 400 mL/hr acetaminophen (OFIRMEV) infusion 1,000 New Bag mg 1,000 mg, Intravenous, Administer over 15 Minutes, Once, On Thu02/26/21 at 2315, For 1 dose, Maximum daily dose of acetaminophen from all sources 3,000 mg daily. 02/27/2021 6:51 AM EDT 1,000 mg 400 mL/hr acetaminophen (OFIRMEV) infusion 1,000 New Bag mg 1,000 mg, Intravenous, Administer over 15 Minutes, Once, On Thu02/27/21 at 0700, For 1 dose, Maximum daily dose of acetaminophen from all sources 3,000 mg daily. 02/27/2021 9:22 PM EDT 4 mg ondansetron (ZOFRAN) injection 4 mg Given by IV 4 mg, Intravenous, Every 8 hours PRN, push Nausea, Vomiting, Starting on Thu02/27/21 at 1151, For 30 days 4 mg Given by IV push 02/27/2021 1:31 PM EDT 02/28/2021 6:40 PM EDT 500 mLs 999 mL/hr sodium chloride 0.9 % bolus 500 mL New Bag 500 mL, Intravenous, Once, On Pallavi 02/28/21 at 1845, For 1 dose documented in this encounter Active and Recently Administered Medications Times are shown in EDT. 02/27/2021 02/28/2021 Medication Order 02/26/2021 acetaminophen (OFIRMEV) infusion 1,000 2332 (New Bag - mg (COMPLETED) Provider: Nuno Griffiths 1,000 mg, Intravenous, Administer over Kel Black RN) 15 Minutes, Once, On Thu02/26/21 at 2315, For 1 dose, Maximum daily dose of acetaminophen from all sources 3,000 mg daily. 0651 (New Bag - Provider: Nuno estes RN) acetaminophen (OFIRMEV) infusion 1,000 mg (COMPLETED) 1,000 mg, Intravenous, Administer over 15 Minutes, Once, On Thu02/27/21 at 0700, For 1 dose, Maximum daily dose of acetaminophen from all sources 3,000 mg daily. 0215 (Not Given - Provider: Nuno Black RN - Reason: Patient/family refused) bisacodyl (DULCOLAX) suppository 10 mg 10 mg, Rectal, Once, On Thu02/27/21 at 0200, For 1 dose 1654 (Patch Applied - Provider: Danielle Paniagua RN - Comment: back) 0356 (Patch Removed - Provider: Mc kwok RN)1729 (Not Given - Provider: Dyan Dinero RN - Reason: Patient/family refused) lidocaine (LIDODERM) 5 % patch 1 patch 1 patch, Transdermal, Daily Standard, First dose on Thu02/27/21 at 1700, For 3 days, Apply to lower back on the right side 12 hours on - 12 hours off 0901 (Given - Provider: Rachael Marin)212 4 (Given - Provider: Mc Dean, HAIR) 09 (Given - Provider: Dyna Dinero RN)2114 (Not Given - Provider: Mc Dean RN - Reason: Patient/family refused) polyethylene glycol (MIRALAX) packet 17 g 17 g, Oral, 2 Times Daily, First dose (after last modification) on Thu 1 at 0900, For 7 days, Mix in 8 ounces of water, juice or milk. Avoid use in patients who require thickened liquids due to potential increased risk for aspiration. 0216 (Given - Provider: Nuno schmitt RN)2124 (Not Given - Provider: Mc Dean RN - Reason: Patient/family refused) 2200 (Due) senna (SENOKOT) syrup 10 mL 10 mL, Oral, Nightly, First dose on Thu02/27/21 at 0200, For 30 days 1840 (New Bag - Provider: Dyan elder RN) sodium chloride 0.9 % bolus 500 mL (COMPLETED) 500 mL, Intravenous, Once, On Pallavi 02/28/21 at 1845, For 1 dose 02/27/2021 02/28/2021 Medication Order 02/26/2021 1655 (Given - Provider: Bc Paniagua, HAIR) acetaminophen (TYLENOL) tablet 650 mg 650 mg, Oral, Every 8 hours PRN, Mild Pain (Pain Scale Score 1-3), Starting o n Thu02/27/21 at 1645, For 3 days, Maximu m daily dose of acetaminophen is 3,000 mg from all sources in 24 hours. bisacodyl (DULCOLAX) suppository 10 mg 10 mg, Rectal, Daily PRN, Constipation, Starting on Thu02/27/21 at 0412, For 30 days calcium carbonate (TUMS) chewable table t 1,000 mg 1,000 mg, Oral, Three Times Daily-PRN, Indigestion, Starting on Thu02/27/21 at 0642, For 30 days 1257 (Given - Provider: Negin Martínez, HAIR - Comment: given by Maykel Daniels RN) lidocaine (XYLOCAINE) 1 % injection 5 m L 5 mL, Subcutaneous, Once PRN, For MIDLINE Catheter insertion, Starting on Thu02/27/21 at 1151, For 30 days 1414 (Given - Provider: Miladis Hua MD ) lidocaine (XYLOCAINE) 2 % injection (CANCELED) PRN, Starting on Pallavi 02/28/21 at 1414, Intra-op 1331 (Given by IV push - Provider: Lupis Paniagua RN)2122 (Given by IV push - Provider: Mc Dean, HAIR) ondansetron (ZOFRAN) injection 4 mg (CANCELED) 4 mg, Intravenous, Every 8 hours PRN, Nausea, Vomiting, Starting on Thu02/27/21 at 1151, For 30 days ondansetron (ZOFRAN) tablet 4 mg 4 mg, Oral, Every 8 hours PRN, Nausea , Vomiting, Starting on Pallavi 02/28/21 at 1019, For 30 days perflutren lipid microspheres (DEFINITY ) injectable suspension 9.78 mg 9.78 mg (1.5 mL), Intravenous, Once PRN, Other, Echo imaging enhancement, Starting on Thu02/27/21 at 1123, For 72 hours sodium chloride (preservative free) 0.9 % flush 10 mL(Linked Group 1) 10 mL, Intravenous, PRN, Line Care, Starting on Thu02/27/21 at 1151, For 30 days, When catheter is not in use flush with 10mL Sodium Chloride. Every 12h. Reference CM P-05 Extended Dwell/[place] e Peripheral Catheter. sodium chloride (preservative free) 0.9 % flush 10 mL(Linked Group 1) 10 mL, Intravenous, PRN, Line Care, Starting on Thu02/27/21 at 1151, For 30 days, Flush with 10 mL Sodium Chloride before and after infusions or blood sampling. Reference CM-05 Extended Dwell/Midline Peripheral Catheter. Order Group 1: Midline Catheter Insertion () Routine, ONCE, On Thu02/27/21 at 1152, For 1 occurrence
Reason for MIDLINE insertion: Access And sodium chloride (preservative free) 0.9 % flush 10 mLJump to med 10 mL, Intravenous, PRN, Line Care, Sta rting on Thu02/27/21 at 1151, For 30 days
When catheter is not in use flush with 10mL Sodium Chlor elsy. Every 12h. Reference CM P-05 Extended Dwell/Midline Peripheral Catheter.
And sodium chloride (preservative free) 0.9 % flush 10 mLJump to med 10 mL, Intravenous, PRN, Line Care, Sta rting on Thu02/27/21 at 1151, For 30 days
Flush with 10 mL Sodium Chloride before and after infusi ons or blood sampling. Reference CM-05 Extended Dwell/Midline Peripheral Catheter.
documented in this encounter
--- OUTSIDE RECORDS SUMMARY | 2021-05-24 20:48 | CCD ---
Author Author [facility] Organization [facility] Address Unknown Phone Unavailable Support Name Relationship Address Phone NONE, PER PT Next Of Kin - -, - - - John Pringle Next Of Kin [address] [place] [address] Kin Noriega Next Of Kin Unknown Unavailable Delroy Guerrero DO Next Of Kin [address] [place] [address] Malcolm MATOS, Yaya Next Of Kin [address] [place] [address] Celine MATOS, Shobha Next Of Kin [address] [place], [place] [id number] Tyrone Garcia MD Next Of Kin [address] [place] [address] [place] [address] [facility] Next Of Kin [address] [facility] [address] [place] [address] [place] [address] [place] [address] Unavailable SAE TENA Next Of Kin N/A Unknown SAE YOON Next Of Kin Unknown Kael NORIEGA Next Of Kin [address] [place] [address] COREY CORTEZ Next Of Kin [address] [place] [address] NADER NORIEGA Next Of Kin [address] [place] [address] KIN FRANCO Next Of Kin N/A Unknown Unavailable NA, NA Next Of Kin Unknown Unavailable SAE NORIEGA Next Of Kin [address] [place] [address] UE Next Of Kin Unknown Unavailable SAE CORTEZ Next Of Kin [address] [place] [address] UNEMPLOYED Next Of Kin [address] [place] [address] Unavailable NADER SORTO Next Of Kin [address] [place] [address] UMA TAMMY Next Of Kin [address] [place] [address] UN Next Of Kin Unknown Unavailable QUINCY [place] [address] DOMENICA TAMMY Next Of Kin [address] [place], [place] [id number] KIN NORIEGA 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 Name Role Phone Bhutta, Sigrid Unavailable Bhutta, Sigrid Unavailable Bhutta, Sigrid Unavailable Bhutta, Sigrid Unavailable Bhutta, Sigrid Unavailable Bhutta, Sigrid Unavailable Bhutta, Sigrid Unavailable Bhutta, Sigrid Unavailable Kael Garcia MD Unavailable Unavailable Kael Garcia MD Unavailable Unavailable Kael Garcia MD Unavailable Unavailable Kael Garcia MD Unavailable Unavailable Kael Garcia MD Unavailable Unavailable Kael Garcia MD Unavailable Unavailable Kael Garcia MD Unavailable Unavailable Kael Garcia MD Unavailable Unavailable Kael Garcia MD Unavailable Unavailable Kael Garcia MD Unavailable Unavailable Kael Garcia MD Unavailable Unavailable Kael Garcia MD Unavailable Unavailable Kael Garcia MD Unavailable Unavailable Kael Garcia MD Unavailable Unavailable Kael Garcia MD Unavailable Unavailable Kael Garcia MD Unavailable Unavailable Kael Garcia MD Unavailable Unavailable Kael Garcia MD Unavailable Unavailable Kael Garcia MD Unavailable Unavailable Kael Garcia MD Unavailable Unavailable Kael Garcia MD Unavailable Unavailable Kael Garcia MD Unavailable Unavailable Kael Garcia MD Unavailable Unavailable Kael Garcia MD Unavailable Unavailable Kael Garcia MD Unavailable Unavailable Kael Garcia MD Unavailable Unavailable Kael Garcia MD Unavailable Unavailable Kael Garcia MD Unavailable Unavailable Kael Garcia MD Unavailable Unavailable Kael Garcia MD Unavailable Unavailable Kael Garcia MD Unavailable Unavailable Kael Garcia MD Unavailable Unavailable Kael Garcia MD Unavailable Unavailable Kael Garcia MD Unavailable Unavailable Kael Garcia MD Unavailable Unavailable Kael Garcia MD Unavailable Unavailable Kael Garcia MD Unavailable Unavailable Kael Garcia MD Unavailable Unavailable Kael Garcia MD Unavailable Unavailable Kael Garcia MD Unavailable Unavailable Kael Garcia MD Unavailable Unavailable Kael Garcia MD Unavailable Unavailable Kael Garcia MD Unavailable Unavailable Kael Garcia MD Unavailable Unavailable Kael Garcia MD Unavailable Unavailable Kael Garcia MD Unavailable Unavailable Kael Garcia MD Unavailable Unavailable Kael Garcia MD Unavailable Unavailable Kael Garcia MD Unavailable Unavailable Kael Garcia MD Unavailable Unavailable Kael Garcia MD Unavailable Unavailable Kael Garcia MD Unavailable Unavailable Kael Garcia MD Unavailable Unavailable Kael Garcia MD Unavailable Unavailable Kael Garcia MD Unavailable Unavailable Kael Garcia MD Unavailable Unavailable Kael Garcia MD Unavailable Unavailable Kael Garcia MD Unavailable Unavailable Kael Garcia MD Unavailable Unavailable Kael Garcia MD Unavailable Unavailable Kael Garcia MD Unavailable Unavailable Kael Garcia MD Unavailable Unavailable Kael Garcia MD Unavailable Unavailable Kael Garcia MD Unavailable Unavailable Kael Garcia MD Unavailable Unavailable Kael Garcia MD Unavailable Unavailable Kael Garcia MD Unavailable Unavailable Kael Garcia MD Unavailable Unavailable Kael Garcia MD Unavailable Unavailable Kael Garcia MD Unavailable Unavailable Kael Garcia MD Unavailable Unavailable Kael Garcia MD Unavailable Unavailable Kael Garcia MD Unavailable Unavailable Kael Garcia MD Unavailable Unavailable Kael Garcia MD Unavailable Unavailable Kael Garcia MD Unavailable Unavailable Kael Garcia MD Unavailable Unavailable Kael Garcia MD Unavailable Unavailable Kael Garcia MD Unavailable Unavailable Kael Garcia MD Unavailable Unavailable Kael Garcia MD Unavailable Unavailable Kael Garcia MD Unavailable Unavailable Kael Garcia MD Unavailable Unavailable Kael Garcia MD Unavailable Unavailable Kael Garcia MD Unavailable Unavailable Kael Garcia MD Unavailable Unavailable Kael Garcia MD Unavailable Unavailable Kael Garcia MD Unavailable Unavailable Kael Garcia MD Unavailable Unavailable Kael Garcia MD Unavailable Unavailable Kael Garcia MD Unavailable Unavailable Garcia, Kael Orozco MD Unavailable Unavailable Garcia, Kael Orozco MD Unavailable Unavailable LILA, A SARAH MD Unavailable Unavailable LILA, A SARAH MD Unavailable Unavailable LILA, A SARAH MD Unavailable Unavailable LILA, A SARAH MD Unavailable Unavailable LILA, A SARAH MD Unavailable Unavailable LILA, A SARAH MD Unavailable Unavailable LILA, A SARAH MD Unavailable Unavailable LILA, A SARAH MD Unavailable Unavailable LILA, A SARAH MD Unavailable Unavailable LILA, A SARAH MD Unavailable Unavailable LILA, A SARAH MD Unavailable Unavailable LILA, A SARAH MD Unavailable Unavailable LILA, A SARAH MD Unavailable Unavailable LILA, A SARAH MD Unavailable Unavailable LILA, A SARAH MD Unavailable Unavailable LILA, A SARAH MD Unavailable Unavailable LILA, A SARAH MD Unavailable Unavailable LILA, A SARAH MD Unavailable Unavailable LILA, A SARAH MD Unavailable Unavailable LILA, A SARAH MD Unavailable Unavailable LILA, A SARAH MD Unavailable Unavailable LILA, A SARAH MD Unavailable Unavailable LILA, A SARAH MD Unavailable Unavailable LILA, A SARAH MD Unavailable Unavailable LILA, A SARAH MD Unavailable Unavailable LILA, A SARAH MD Unavailable Unavailable LILA, A SARAH MD Unavailable Unavailable LILA, A SARAH MD Unavailable Unavailable LILA, A SARAH MD Unavailable Unavailable LILA, A SARAH MD Unavailable Unavailable LILA, A SARAH MD Unavailable Unavailable LILA, A SARAH MD Unavailable Unavailable LILA, A SARAH MD Unavailable Unavailable LILA, A SARAH MD Unavailable Unavailable LILA, A SARAH MD Unavailable Unavailable LILA, A SARAH MD Unavailable Unavailable LILA, A SARAH MD Unavailable Unavailable LILA, A SARAH MD Unavailable Unavailable LILA, A SARAH MD Unavailable Unavailable LILA, A SARAH MD Unavailable Unavailable LILA, A SARAH MD Unavailable Unavailable LILA, A SARAH MD Unavailable Unavailable LILA, A SARAH MD Unavailable Unavailable LILA, A SARAH MD Unavailable Unavailable LILA, A SARAH MD Unavailable Unavailable LILA, A SARAH MD Unavailable Unavailable LILA, A SARAH MD Unavailable Unavailable LILA, A SARAH MD Unavailable Unavailable LILA, A SARAH MD Unavailable Unavailable LILA, Maykel SMITH MD Unavailable Unavailable LILA, Maykel SMITH MD Unavailable Unavailable LILA, Maykel SMITH MD Unavailable Unavailable LILA, Maykel SMITH MD Unavailable Unavailable LILA, Maykel SMITH MD Unavailable Unavailable LILA, Maykel SMITH MD Unavailable Unavailable LILA, Maykel SMITH MD Unavailable Unavailable LILA, Maykel SMITH MD Unavailable Unavailable LILA, Maykel SMITH MD Unavailable Unavailable LILA, Maykel SMITH MD Unavailable Unavailable AMY, Jair VAZQUEZ MD Unavailable Unavailable AMY, Jair VAZQUEZ MD Unavailable Unavailable AMY, Jair VAZQUEZ MD Unavailable Unavailable AMY, Jair VAZQUEZ MD Unavailable Unavailable AMY, Jair VAZQUEZ MD Unavailable Unavailable AMY, Jair VAZQUEZ MD Unavailable Unavailable AMY, Jair VAZQUEZ MD Unavailable Unavailable AMY, Jair VAZQUEZ MD Unavailable Unavailable AMY, Jair VAZQUEZ MD Unavailable Unavailable VENERUS, Therese BOB MD Unavailable Unavailable VENERUS, Therese BOB MD Unavailable Unavailable VENERUS, Therese BOB MD Unavailable Unavailable VENERUS, Therese BOB MD Unavailable Unavailable VENERUS, Therese BOB MD Unavailable Unavailable VENERUS, Therese BOB MD Unavailable Unavailable VENERUS, Therese BOB MD Unavailable Unavailable VENERUS, Therese BOB MD Unavailable Unavailable VENERUS, Therese BOB MD Unavailable Unavailable JARAD, K AMRENDRA Unavailable Unavailable Lance Benitez MD Unavailable Unavailable Lance Benitez MD Unavailable Unavailable Lance Benitez MD Unavailable Unavailable Lance Benitez MD Unavailable Unavailable Lance Benitez MD Unavailable Unavailable Lance Benitez MD Unavailable Unavailable Lance Benitez MD Unavailable Unavailable Lance Benitez MD Unavailable Unavailable Lance Benitez MD Unavailable Unavailable Lance Benitez MD Unavailable Unavailable Lance Benitez MD Unavailable Unavailable Lance Benitez MD Unavailable Unavailable Lance Benitez MD Unavailable Unavailable Lance Benitez MD Unavailable Unavailable Lance Benitez MD Unavailable Unavailable Lance Benitez MD Unavailable Unavailable Lance Benitez MD Unavailable Unavailable Lance Benitez MD Unavailable Unavailable Lance Benitez MD Unavailable Unavailable Lance Benitez MD Unavailable Unavailable De DarynLance MD Unavailable Unavailable De DarynLance MD Unavailable Unavailable De DarynLance MD Unavailable Unavailable De DarynLance MD Unavailable Unavailable De DarynLacne MD Unavailable Unavailable De DarynLance MD Unavailable Unavailable De DarynLnace MD Unavailable Unavailable De DarynLance MD Unavailable Unavailable De DarynLance MD Unavailable Unavailable De DarynLance MD Unavailable Unavailable De DarynLance MD Unavailable Unavailable De DarynLance MD Unavailable Unavailable De DarynLance MD Unavailable Unavailable De DarynLance MD Unavailable Unavailable De Daryn, Lance Hill MD Unavailable Unavailable De Daryn, Lance Hill MD Unavailable Unavailable De DarynLance MD Unavailable Unavailable De DarynLance MD Unavailable Unavailable De DarynLance MD Unavailable Unavailable De DarynLance MD Unavailable Unavailable De DarynLance MD Unavailable Unavailable De DarynLance MD Unavailable Unavailable De DarynLance MD Unavailable Unavailable De DarynLance MD Unavailable Unavailable De DarynLance MD Unavailable Unavailable De DarynLance MD Unavailable Unavailable De DarynLance MD Unavailable Unavailable De DarynLance MD Unavailable Unavailable De DarynLance MD Unavailable Unavailable De DarynLance MD Unavailable Unavailable De DarynLance MD Unavailable Unavailable De DarynLance MD Unavailable Unavailable De DarynLance MD Unavailable Unavailable De DarynLance MD Unavailable Unavailable De DarynLance MD Unavailable Unavailable De DarynLance MD Unavailable Unavailable De Lance Stearns MD Unavailable Unavailable De DarynLance MD Unavailable Unavailable De DarynLance MD Unavailable Unavailable De DarynLance MD Unavailable Unavailable De Lance Stearns MD Unavailable Unavailable De Lance Stearns MD Unavailable Unavailable De DarynLance MD Unavailable Unavailable De DarnyLance MD Unavailable Unavailable De DarynLance MD Unavailable Unavailable De Daryn, Lance Hill MD Unavailable Unavailable De Daryn, Lance Hill MD Unavailable Unavailable De Daryn, Lance Hill MD Unavailable Unavailable De Daryn, Lance Hill MD Unavailable Unavailable De Daryn, Lance Hill MD Unavailable Unavailable De Daryn, Lance Hill MD Unavailable Unavailable De Daryn, Lance Hill MD Unavailable Unavailable De Daryn, Lance Hill MD Unavailable Unavailable De Daryn, Lance Hill MD Unavailable Unavailable De Daryn, Lance Hill MD Unavailable Unavailable De Daryn, Lance Hill MD Unavailable Unavailable De Daryn, Lance Hill MD Unavailable Unavailable De Daryn, Lance Hill MD Unavailable Unavailable De Daryn, Lance Hill MD Unavailable Unavailable De Daryn, Lance Hill MD Unavailable Unavailable De Daryn, Lance Hill MD Unavailable Unavailable De Daryn, Lance Hill MD Unavailable Unavailable De Daryn, Lance Hill MD Unavailable Unavailable De Daryn, Lance Hill MD Unavailable Unavailable STEELE, A LISSETTE Unavailable Unavailable PARSHALL, A YFN MD Unavailable Unavailable PARSHALL, A YFN MD Unavailable Unavailable PARSHALL, A YFN MD Unavailable Unavailable PARSHALL, A YFN MD Unavailable Unavailable PARSHALL, A YFN MD Unavailable Unavailable PARSHALL, A YFN MD Unavailable Unavailable PARSHALL, A YFN MD Unavailable Unavailable PARSHALL, A YFN MD Unavailable Unavailable PARSHALL, A YFN MD Unavailable Unavailable PARSHALL, A YFN MD Unavailable Unavailable PARSHALL, A YFN MD Unavailable Unavailable PARSHALL, A YFN MD Unavailable Unavailable PARSHALL, A YFN MD Unavailable Unavailable PARSHALL, A YFN MD Unavailable Unavailable PARSHALL, A YFN MD Unavailable Unavailable PARSHALL, A YFN MD Unavailable Unavailable PARSHALL, A YFN MD Unavailable Unavailable PARSHALL, A YFN MD Unavailable Unavailable PARSHALL, A YFN MD Unavailable Unavailable PARSHALL, A YFN MD Unavailable Unavailable PARSHALL, A YFN MD Unavailable Unavailable PARSHALL, A YFN MD Unavailable Unavailable PARSHALL, A YFN MD Unavailable Unavailable PARSHALL, A YFN MD Unavailable Unavailable PARSHALL, A YFN MD Unavailable Unavailable PARSHALL, A YFN MD Unavailable Unavailable PARSHALL, A YFN MD Unavailable Unavailable PARSHALL, A YFN MD Unavailable Unavailable PARSHALL, A YFN MD Unavailable Unavailable PARSHALL, A YFN MD Unavailable Unavailable PARSHALL, A YFN MD Unavailable Unavailable PARSHALL, A YFN MD Unavailable Unavailable Dougherty, A Patricia SPECIALTY FOOD PRODUCTS SUPERVISOR Unavailable Unavailable Dougherty, A Patricia SPECIALTY FOOD PRODUCTS SUPERVISOR Unavailable Unavailable Dougherty, A Patricia SPECIALTY FOOD PRODUCTS SUPERVISOR Unavailable Unavailable Dougherty, A Patricia SPECIALTY FOOD PRODUCTS SUPERVISOR Unavailable Unavailable Dougherty, A Patricia SPECIALTY FOOD PRODUCTS SUPERVISOR Unavailable Unavailable Dougherty, A Patricia SPECIALTY FOOD PRODUCTS SUPERVISOR Unavailable Unavailable Fish, B Watson MATOS Unavailable Unavailable Fish, B Watson MATOS Unavailable Unavailable Fish, B Watson MATOS Unavailable Unavailable Fish, B Watson MATOS Unavailable Unavailable Fish, B Watson MATOS Unavailable Unavailable Fish, B Watson MATOS Unavailable Unavailable Fish, B Watson MATOS Unavailable Unavailable Fish, B Watson MATOS Unavailable Unavailable Fish, B Watson MATOS Unavailable Unavailable Fish, B Watson MATOS Unavailable Unavailable Fish, B Watson MATOS Unavailable Unavailable Fish, B Watson MATOS Unavailable Unavailable Fish, B Watson MATOS Unavailable Unavailable Fish, B Watson MATOS Unavailable Unavailable Fish, B Watson MATOS Unavailable Unavailable Fish, B Watson MATOS Unavailable Unavailable Fish, B Watson MATOS Unavailable Unavailable Fish, B Watson MATOS Unavailable Unavailable Fish, B Watson MATOS Unavailable Unavailable Fish, B Watson MATOS Unavailable Unavailable Fish, B Watson MATOS Unavailable Unavailable Fish, B Watson MATOS Unavailable Unavailable Fish, B Watson MATOS Unavailable Unavailable Fish, B Watson MATOS Unavailable Unavailable Fish, B Watson MATOS Unavailable Unavailable Fish, B Watson MATOS Unavailable Unavailable Fish, B Watson MATOS Unavailable Unavailable Fish, B Watson MATOS Unavailable Unavailable Fish, B Watson MATOS Unavailable Unavailable Fish, B Watson MATOS Unavailable Unavailable Fish, B Watson MATOS Unavailable Unavailable Fish, B Watson MATOS Unavailable Unavailable Fish, B Watson MATOS Unavailable Unavailable Fish, B Watson MATOS Unavailable Unavailable Fish, B Watson MATOS Unavailable Unavailable Fish, B Watson MATOS Unavailable Unavailable Fish, B Watson MATOS Unavailable Unavailable Fish, B Watson MATOS Unavailable Unavailable Fish, B Watson MATOS Unavailable Unavailable Fish, B Watson MATOS Unavailable Unavailable Fish, B Watson MATOS Unavailable Unavailable Fish, B Watson MATOS Unavailable Unavailable Fish, B Watson MATOS Unavailable Unavailable Fish, B Watson MATOS Unavailable Unavailable Fish, B Watson MATOS Unavailable Unavailable Fish, B Watson MATOS Unavailable Unavailable Fish, B Watson MATOS Unavailable Unavailable Fish, B Watson MATOS Unavailable Unavailable Fish, B Watson MATOS Unavailable Unavailable Fish, B Watson MATOS Unavailable Unavailable Fish, B Watson MATOS Unavailable Unavailable Fish, B Watson MATOS Unavailable Unavailable Fish, B Watson MATOS Unavailable Unavailable Fish, B Watson MATOS Unavailable Unavailable Fish, B Watson MATOS Unavailable Unavailable Fish, B Watson MD Unavailable Unavailable VERONICA GUSMAN MD Unavailable Unavailable VERONICA GUSMAN MD Unavailable Unavailable VERONICA GUSMAN MD Unavailable Unavailable VERONICA GUSMAN MD Unavailable Unavailable Therese TAYLOR Unavailable Unavailable Klaudia STAUFFER Unavailable Unavailable Adriano Raphael PhD Unavailable Unavailable Adriano Raphael PhD Unavailable Unavailable Sobia CORONEL MD Unavailable Unavailable Sobia CORONEL MD Unavailable Unavailable Sobia CORONEL MD Unavailable Unavailable Sobia CORONEL MD Unavailable Unavailable Sobia CORONEL MD Unavailable Unavailable Sobia CORONEL MD Unavailable Unavailable Sobia CORONEL MD Unavailable Unavailable Sobia CORONEL MD Unavailable Unavailable Sobia CORONEL MD Unavailable Unavailable Sobia CORONEL MD Unavailable Unavailable Sobia CORONEL MD Unavailable Unavailable Sobia CORONEL MD Unavailable Unavailable Sobia CORONEL MD Unavailable Unavailable Sobia CORONEL MD Unavailable Unavailable Sobia CORONEL MD Unavailable Unavailable Sobia GONZALEZ MD Unavailable Unavailable Sobia GONZALEZ MD Unavailable Unavailable Sobia GONZALEZ MD Unavailable Unavailable SAGSobia CROOK MD Unavailable Unavailable SAGSobia CROOK MD Unavailable Unavailable SAGSobia CROOK MD Unavailable Unavailable SAGSobia CROOK MD Unavailable Unavailable SAGSobia CROOK MD Unavailable Unavailable SAGSobia CROOK MD Unavailable Unavailable SAGSobia CROOK DAVID MD Unavailable Unavailable SAGSobia CROOK DAVID MD Unavailable Unavailable SAGSobia CROOK DAVID MD Unavailable Unavailable SAGSobia CROOK DAVID MD Unavailable Unavailable SAGSobia CROOK DAVID MD Unavailable Unavailable SAGSobia CROOK DAVID MD Unavailable Unavailable SAGSobia CROOK DAVID MD Unavailable Unavailable SAGARMAAN G DAVID Unavailable Unavailable SAGARMAAN G DAVID Unavailable Unavailable SAGARMAAN G DAVID Unavailable Unavailable Klaudia Dougherty MD Unavailable Unavailable Klaudia Dougherty MD Unavailable Unavailable Klaudia Dougherty MD Unavailable Unavailable Klaudia Dougherty MD Unavailable Unavailable Klauida Dougherty MD Unavailable Unavailable Klaudia Dougherty MD Unavailable Unavailable Klaudia Dougherty MD Unavailable Unavailable Klaudia Dougherty MD Unavailable Unavailable Klaudia Dougherty MD Unavailable Unavailable Klaudia Dougherty MD Unavailable Unavailable Klaudia Dougherty MD Unavailable Unavailable Klaudia Dougherty MD Unavailable Unavailable Klaudia Dougherty MD Unavailable Unavailable Klaudia Dougherty MD Unavailable Unavailable Klaudia Dougherty MD Unavailable Unavailable Klaudia Dougherty MD Unavailable Unavailable Klaudia Dougherty MD Unavailable Unavailable Klaudia Dougherty MD Unavailable Unavailable Klaudia Dougherty MD Unavailable Unavailable Klaudia Dougherty MD Unavailable Unavailable Klaudia Dougherty MD Unavailable Unavailable Klaudia Dougherty MD Unavailable Unavailable Klaudia Dougherty MD Unavailable Unavailable Klaudia Dougherty MD Unavailable Unavailable Klaudia Dougherty MD Unavailable Unavailable Kael Garcia MD Unavailable Unavailable Kael Garcia MD Unavailable Unavailable Kael Garcia MD Unavailable Unavailable Kael Garcia MD Unavailable Unavailable Kael Garcia MD Unavailable Unavailable Kael Garcia MD Unavailable Unavailable Kael Garcia MD Unavailable Unavailable Kael Garcia MD Unavailable Unavailable Kael Garcia MD Unavailable Unavailable Kael Garcia MD Unavailable Unavailable Kael Garcia MD Unavailable Unavailable Kael Garcia MD Unavailable Unavailable Kael Garcia MD Unavailable Unavailable Kael Garcia MD Unavailable Unavailable Kael Garcia MD Unavailable Unavailable Kael Garcia MD Unavailable Unavailable Kael Garcia MD Unavailable Unavailable Kael Garcia MD Unavailable Unavailable Kael Garcia MD Unavailable Unavailable Kael Garcia MD Unavailable Unavailable Kael Garcia MD Unavailable Unavailable Kael Garcia MD Unavailable Unavailable Kael Garcia MD Unavailable Unavailable Kael Garcia MD Unavailable Unavailable Kael Garcia MD Unavailable Unavailable Kael Garcia MD Unavailable Unavailable Kael Garcia MD Unavailable Unavailable Kael Garcia MD Unavailable Unavailable Kael Garcia MD Unavailable Unavailable Kael Garcia MD Unavailable Unavailable Kael Garica MD Unavailable Unavailable Kael Garcia MD Unavailable Unavailable Kael Garcia MD Unavailable Unavailable Kael Garcia MD Unavailable Unavailable Kael Garcia MD Unavailable Unavailable Kael Garcia MD Unavailable Unavailable Kael Garcia MD Unavailable Unavailable Kael Garcia MD Unavailable Unavailable Kael Garcia MD Unavailable Unavailable Kael Garcia MD Unavailable Unavailable Kael Gracia MD Unavailable Unavailable Kael Garcia MD Unavailable Unavailable Kael Garcia MD Unavailable Unavailable Kael Garcia MD Unavailable Unavailable Kael Garcia MD Unavailable Unavailable Kael Garcia MD Unavailable Unavailable Kael Garcia MD Unavailable Unavailable Kael Garcia MD Unavailable Unavailable Kael Garcia MD Unavailable Unavailable Kael Garcia MD Unavailable Unavailable Kael Garcia MD Unavailable Unavailable Kael Garcia MD Unavailable Unavailable Kael Garcia MD Unavailable Unavailable Kael Garcia MD Unavailable Unavailable Kael Garcia MD Unavailable Unavailable Kael Garcia MD Unavailable Unavailable Garcia, Kael Orozco MD Unavailable Unavailable Garcia, Kael Orozco MD Unavailable Unavailable Garcia, Kael Orozco MD Unavailable Unavailable Garcia, Kael Orozco MD Unavailable Unavailable Garcia, Kael Orozco MD Unavailable Unavailable Garcia, Kael Orozco MD Unavailable Unavailable Garcia, Kael Orozco MD Unavailable Unavailable GarciaKael MD Unavailable Unavailable GarciaKael MD Unavailable Unavailable Garcia, Kael Orozco MD Unavailable Unavailable Garcia, Kael Orozco MD Unavailable Unavailable Garcia, Kael Orozco MD Unavailable Unavailable Garcia, Kael Orozco MD Unavailable Unavailable Garcia, Kael Orozco MD Unavailable Unavailable Garcia, Kael Orozco MD Unavailable Unavailable Garcia, Kael Orozco MD Unavailable Unavailable Garcia, Kael Orozco MD Unavailable Unavailable Kael Garcia MD Unavailable Unavailable Garcia, Kael Orozco MD Unavailable Unavailable Garcia, Kael Orozco MD Unavailable Unavailable Garcia, Kael Orozco MD Unavailable Unavailable Garcia, Kael Orozco MD Unavailable Unavailable Garcia, Kael Orozco MD Unavailable Unavailable Jose, Kael Orozco MD Unavailable Unavailable Jose, Kael Orozco MD Unavailable Unavailable Kael Garcia MD Unavailable Unavailable Kael Garcia MD Unavailable Unavailable Jose, Kael Orozco MD Unavailable Unavailable Jose, Kael Orozco MD Unavailable Unavailable Garcia, Kael Orozco MD Unavailable Unavailable Garcia, Kael Orozco MD Unavailable Unavailable Kael Garcia MD Unavailable Unavailable Kael Garcia MD Unavailable Unavailable Kael Garcia MD Unavailable Unavailable Kael Garcia MD Unavailable Unavailable Kael Garcia MD Unavailable Unavailable Kael Garcia MD Unavailable Unavailable Jair LE Unavailable Unavailable BHUTTA, SIGRID Unavailable Unavailable CHANKlaudia LANG MD Unavailable Unavailable Klaudia SHOOK MD Unavailable Unavailable Klaudia SHOOK MD Unavailable Unavailable Klaudia SHOOK MD Unavailable Unavailable Klaudia SHOOK MD Unavailable Unavailable Klaudia SHOOK MD Unavailable Unavailable Klaudia SHOOK MD Unavailable Unavailable CHANLIKlaudia BERNAL MD Unavailable Unavailable CHANLIKlaudia BERNAL MD Unavailable Unavailable CHANLIKlaudia BERNAL MD Unavailable Unavailable CHANLIECKlaudia MCKEON MD Unavailable Unavailable Eugenie, Andreia Unavailable Unavailable Eugenie, Andreia Unavailable Unavailable Eugenie, Andreia Unavailable Unavailable Eugenie, Andreia Unavailable Unavailable Eugenie, Andreia Unavailable Unavailable Eugenie, Andreia Unavailable Unavailable Eugenie, Andreia Unavailable Unavailable Eugenie, Andreia Unavailable Unavailable Eugenie, Andreia Unavailable Unavailable Eugenie, Andreia Unavailable Unavailable Eugenie, Andreia Unavailable Unavailable Eugenie, Andreia Unavailable Unavailable Eugenie, Andreia Unavailable Unavailable Eugenie, Andreia Unavailable Unavailable Eugenie, Andreia Unavailable Unavailable Eugenie, Andreia Unavailable Unavailable Eugenie, Andreia Unavailable Unavailable Eugenie, Andreia Unavailable Unavailable Eugenie, Andreia Unavailable Unavailable Eugenie, Andreia Unavailable Unavailable Eugenie, Andreia Unavailable Unavailable Eugenie, Andreia Unavailable Unavailable Eugenie, Andreai Unavailable Unavailable Eugenie, Andreia Unavailable Unavailable Eugenie, Andreia Unavailable Unavailable Eugenie, Andreia Unavailable Unavailable BADRINATH, ROSA . Unavailable Unavailable Badrinath, Rosa Unavailable Badrinath, Rosa Unavailable Badrinath, Rosa Unavailable Devjeffrey, Neal Unavailable Devaraj, Neal Unavailable Devaraj, Neal Unavailable Devaraj, MD Neal Unavailable Devaraj, MD Neal Unavailable Devaraj, MD Neal Unavailable Devaraj, MD Neal Unavailable Herminia Oconnor MD Unavailable Unavailable Herminia Oconnor MD Unavailable Unavailable Herminia Oconnor MD Unavailable Unavailable Herminia Oconnor MD Unavailable Unavailable Herminia Oconnor MD Unavailable Unavailable Herminia Oconnor MD Unavailable Unavailable Herminia Oconnor MD Unavailable Unavailable Herminia Oconnor MD Unavailable Unavailable Herminia Oconnor MD Unavailable Unavailable Herminia Oconnor MD Unavailable Unavailable Herminia Oconnor MD Unavailable Unavailable Herminia Oconnor MD Unavailable Unavailable Herminia Oconnor MD Unavailable Unavailable Herminia Oconnor MD Unavailable Unavailable Herminia Oconnor MD Unavailable Unavailable Herminia Oconnor MD Unavailable Unavailable Herminia Oconnor MD Unavailable Unavailable NEAL LAGOS Unavailable Unavailable Maria Esther Ellington RD CDN Unavailable Unavailable Lance Benitez MD Unavailable Unavailable Lance Benitez MD Unavailable Unavailable De Lance Stearns MD Unavailable Unavailable De Lance Stearns MD Unavailable Unavailable De Lance Stearns MD Unavailable Unavailable De Lance Stearns MD Unavailable Unavailable De Lance Stearns MD Unavailable Unavailable De Lance Stearns MD Unavailable Unavailable De Lance Stearns MD Unavailable Unavailable De DarynLance santoro MD Unavailable Unavailable De Lance Stearns MD Unavailable Unavailable De Lance Stearns MD Unavailable Unavailable De DarynLance MD Unavailable Unavailable De DarynLance MD Unavailable Unavailable De DarynLance MD Unavailable Unavailable De DarynLance MD Unavailable Unavailable De Lance Stearns MD Unavailable Unavailable De Lance Stearns MD Unavailable Unavailable De Lance Stearns MD Unavailable Unavailable De Lance Stearns MD Unavailable Unavailable De Lance Stearns MD Unavailable Unavailable De Lance Stearns MD Unavailable Unavailable De Lance Stearns MD Unavailable Unavailable De Lance Stearns MD Unavailable Unavailable De Lance Stearns MD Unavailable Unavailable De Lance Stearns MD Unavailable Unavailable De Lance Stearns MD Unavailable Unavailable Lance Benitez MD Unavailable Unavailable De Lance Stearns MD Unavailable Unavailable De Lance Stearns MD Unavailable Unavailable De Lance Stearns MD Unavailable Unavailable De Lance Stearns MD Unavailable Unavailable De Lance Stearns MD Unavailable Unavailable De Lance Stearns MD Unavailable Unavailable De Lance Stearns MD Unavailable Unavailable Lance Benitez MD Unavailable Unavailable De Lance Stearns MD Unavailable Unavailable De Lance Stearns MD Unavailable Unavailable De Lance Stearns MD Unavailable Unavailable Lance Benitez MD Unavailable Unavailable De Lance Stearns MD Unavailable Unavailable De Lance Stearns MD Unavailable Unavailable De Lance Stearns MD Unavailable Unavailable De Lance Stearns MD Unavailable Unavailable Lance Benitez MD Unavailable Unavailable De DarynLance santoro MD Unavailable Unavailable De DarynLance santoro MD Unavailable Unavailable De DarynLance santoro MD Unavailable Unavailable De DarynLance MD Unavailable Unavailable De DarynLance santoro MD Unavailable Unavailable De Lance Stearns MD Unavailable Unavailable De DarynLance MD Unavailable Unavailable De DarynLance MD Unavailable Unavailable De DarynLance MD Unavailable Unavailable De DarynLance MD Unavailable Unavailable De DarynLance MD Unavailable Unavailable De DarynLance MD Unavailable Unavailable De DarynLance MD Unavailable Unavailable De DarynLance MD Unavailable Unavailable De DarynLance MD Unavailable Unavailable De DarynLance MD Unavailable Unavailable De DarynLance MD Unavailable Unavailable De Lance Stearns MD Unavailable Unavailable De DarynLance MD Unavailable Unavailable De DarynLance MD Unavailable Unavailable De DarynLance MD Unavailable Unavailable De DarynLance MD Unavailable Unavailable De Lance Stearns MD Unavailable Unavailable De Lance Stearns MD Unavailable Unavailable De DarynLance santoro MD Unavailable Unavailable De DarynLance MD Unavailable Unavailable De DarynLance MD Unavailable Unavailable De Lance Stearns MD Unavailable Unavailable De Lance Stearns MD Unavailable Unavailable De Lance Stearns MD Unavailable Unavailable De DarynLance santoro MD Unavailable Unavailable De Lance Stearns MD Unavailable Unavailable De DarynLance santoro MD Unavailable Unavailable De Lance Stearns MD Unavailable Unavailable De Lance Stearns MD Unavailable Unavailable Lance Benitez MD Unavailable Unavailable Lance Benitez MD Unavailable Unavailable Lance Benitez MD Unavailable Unavailable Lance Benitez MD Unavailable Unavailable Haley ROLDAN JR, MD Unavailable Unavailable Haley ROLDAN JR, MD Unavailable Unavailable Haley ROLDAN JR, MD Unavailable Unavailable Haley ROLDAN JR, MD Unavailable Unavailable Haley ROLDAN JR, MD Unavailable Unavailable Haley ROLDAN JR, MD Unavailable Unavailable CARMARCUST Haley MCELROY MD Unavailable Unavailable CARHaley ALEMAN JR, MD Unavailable Unavailable CARHART Haley MCELROY MD Unavailable Unavailable CARHART Haley MCELROY MD Unavailable Unavailable CARHART Haley MCELROY MD Unavailable Unavailable CARMARCUST Haley MCELROY MD Unavailable Unavailable CARMARCUST Haley MCELROY MD Unavailable Unavailable CARHaley ALEMAN JR, MD Unavailable Unavailable CARMARCUST Haley MCELROY MD Unavailable Unavailable CARHART Haley MCELROY MD Unavailable Unavailable CARHaley ALEMAN JR, MD Unavailable Unavailable CARHaley ALEMAN JR, MD Unavailable Unavailable CARHaley ALEMAN JR, MD Unavailable Unavailable CARHaley ALEMAN JR, MD Unavailable Unavailable CARHaley ALEMAN JR, MD Unavailable Unavailable CARHaley ALEMAN JR, MD Unavailable Unavailable CARHaley ALEMAN JR, MD Unavailable Unavailable CARHaley ALEMAN JR, MD Unavailable Unavailable CARHaley ALEMAN JR, MD Unavailable Unavailable CARHaley ALEMAN JR, MD Unavailable Unavailable CARHaley ALEMAN JR, MD Unavailable Unavailable CARHaley ALEMAN JR, MD Unavailable Unavailable CARHaley ALEMAN JR, MD Unavailable Unavailable CARHaley ALEMAN JR, MD Unavailable Unavailable CARHaley ALEMAN JR, MD Unavailable Unavailable CARHaley ALEMAN JR, MD Unavailable Unavailable CARHaley ALEMAN JR, MD Unavailable Unavailable CARHaley ALEMAN JR, MD Unavailable Unavailable CARHaley ALEMAN JR, MD Unavailable Unavailable CARHaley ALEMAN JR, MD Unavailable Unavailable CARHaley ALEMAN JR, MD Unavailable Unavailable CARHaley ALEMAN JR, MD Unavailable Unavailable CARHaley ALEMAN JR, MD Unavailable Unavailable CARHaley ALEMAN JR, MD Unavailable Unavailable CARHaley ALEMAN JR, MD Unavailable Unavailable CARHaley ALEMAN JR, MD Unavailable Unavailable CARHaley ALEMAN JR, MD Unavailable Unavailable CARHaley ALEMAN JR, MD Unavailable Unavailable CARHaley ALEMAN JR, MD Unavailable Unavailable CARHaley ALEMAN JR, MD Unavailable Unavailable CARHaley ALEMAN JR, MD Unavailable Unavailable CARHaley ALEMAN JR, MD Unavailable Unavailable CARHaley ALEMAN JR, MD Unavailable Unavailable CARHaley ALEMAN JR, MD Unavailable Unavailable CARHaley ALEMAN JR, MD Unavailable Unavailable CARHaley ALEMAN JR, MD Unavailable Unavailable CARHaley ALEMAN JR, MD Unavailable Unavailable CARHaley ALEMAN JR, MD Unavailable Unavailable CARHaley ALEMAN JR, MD Unavailable Unavailable CARHaley ALEMAN JR, MD Unavailable Unavailable CARHaley ALEMAN JR, MD Unavailable Unavailable CARHaley ALEMAN JR, MD Unavailable Unavailable CARHARHaley Jin JR, MD Unavailable Unavailable CARHART Haley MCELROY MD Unavailable Unavailable CARMARCUST Haley MCELROY MD Unavailable Unavailable CARHaley ALEMAN JR, MD Unavailable Unavailable CARMARCUST Haley MCELROY MD Unavailable Unavailable CARHaley ALEMAN JR, MD Unavailable Unavailable CARHaley ALEMAN JR, MD Unavailable Unavailable CARHaley ALEMAN JR, MD Unavailable Unavailable CARHaley ALEMAN JR, MD Unavailable Unavailable CARHaley ALEMAN JR, MD Unavailable Unavailable CARHaley ALEMAN JR, MD Unavailable Unavailable CARHaley ALEMAN JR, MD Unavailable Unavailable CARHaley ALEMAN JR, MD Unavailable Unavailable CARHaley ALEMAN JR, MD Unavailable Unavailable CARHaley ALEMAN JR, MD Unavailable Unavailable CARHaley ALEMAN JR, MD Unavailable Unavailable CARHaley ALEMAN JR, MD Unavailable Unavailable CARHaley ALEMAN JR, MD Unavailable Unavailable CARHaley ALEMAN JR, MD Unavailable Unavailable CARHaley ALEMAN JR, MD Unavailable Unavailable CARHaley ALEMAN JR, MD Unavailable Unavailable CARHaley ALEMAN JR, MD Unavailable Unavailable CARHaley ALEMAN JR, MD Unavailable Unavailable CARHaley ALEMAN JR, MD Unavailable Unavailable CARHaley ALEMAN JR, MD Unavailable Unavailable CARHaley ALEMAN JR, MD Unavailable Unavailable CARHaley ALEMAN JR, MD Unavailable Unavailable CARHaley ALEMAN JR, MD Unavailable Unavailable CARHaley ALEMAN JR, MD Unavailable Unavailable CARHaley ALEMAN JR, MD Unavailable Unavailable Mercedes Cristina MD Unavailable Unavailable Mercedes Cristina MD Unavailable Unavailable Mercedes Cristina MD Unavailable Unavailable Mercedes Cristina MD Unavailable Unavailable Mercedes Cristina MD Unavailable Unavailable Mercedes Cristina MD Unavailable Unavailable Mercedes Cristina MD Unavailable Unavailable Mercedes Cristina MD Unavailable Unavailable Mercedes Cristina MD Unavailable Unavailable Mercedes Cristina MD Unavailable Unavailable Mercedes Cristina MD Unavailable Unavailable Mercedes Cristina MD Unavailable Unavailable Therese ROBB MD Unavailable Unavailable Therese ROBB MD Unavailable Unavailable Therese ROBB MD Unavailable Unavailable Therese ROBB MD Unavailable Unavailable Therese ROBB MD Unavailable Unavailable Therese ROBB MD Unavailable Unavailable Therese ROBB MD Unavailable Unavailable Therese ROBB MD Unavailable Unavailable Haley BOYD MD Unavailable Unavailable Haley BOYD MD Unavailable Unavailable Haley BOYD MD Unavailable Unavailable Haley BOYD MD Unavailable Unavailable Haley BOYD MD Unavailable Unavailable Haley BOYD MD Unavailable Unavailable Haley BOYD MD Unavailable Unavailable SANDOVALHaley SANCHEZ MD Unavailable Unavailable SANDOVALHaley SANCHEZ MD Unavailable Unavailable SANDOVALHaley SANCHEZ MD Unavailable Unavailable Haley BOYD MD Unavailable Unavailable SANDOVALHaley SANCHEZ MD Unavailable Unavailable SANDOVALHaley SANCHEZ MD Unavailable Unavailable SANDOVALHaley SANCHEZ MD Unavailable Unavailable SANDOVALHaley SANCHEZ MD Unavailable Unavailable Haley BOYD MD Unavailable Unavailable Haley BOYD MD Unavailable Unavailable Haley BOYD MD Unavailable Unavailable Haley BOYD MD Unavailable Unavailable Haley BOYD MD Unavailable Unavailable ETIENNE HOMER, SRUTHI Unavailable Unavailable TURRIN, NIKHIL Unavailable Unavailable TURRIN, NIKHIL Unavailable Unavailable TURRIN, NIKHIL Unavailable Unavailable TURRIN, NIKHIL Unavailable Unavailable Manisha Carrasco MD Unavailable Unavailable Manisha Carrasco MD Unavailable Unavailable Manisha Carrasco MD Unavailable Unavailable Manisha Carrasco MD Unavailable Unavailable Manisha Carrasco MD Unavailable Unavailable Manisha Carrasco MD Unavailable Unavailable Manisha Carrasco MD Unavailable Unavailable Manisha Carrasco MD Unavailable Unavailable Manisha Carrasco MD Unavailable Unavailable Manisha Carrasco MD Unavailable Unavailable Manisha Carrasco MD Unavailable Unavailable Manisha Carrasco MD Unavailable Unavailable Manisha Carrasco MD Unavailable Unavailable Manisha Carrasco MD Unavailable Unavailable Manisha Carrasco MD Unavailable Unavailable Manisha Carrasco MD Unavailable Unavailable Manisha Carrasco MD Unavailable Unavailable Manisha Carrasco MD Unavailable Unavailable Manisha Carrasco MD Unavailable Unavailable Manisha Carrasco MD Unavailable Unavailable Manisha Carrasco MD Unavailable Unavailable Manisha Carrasco MD Unavailable Unavailable Manisha Carrasco MD Unavailable Unavailable Manisha Carrasco MD Unavailable Unavailable Manisha Carrasco MD Unavailable Unavailable Manisha Carrasco MD Unavailable Unavailable Manisha Carrasco MD Unavailable Unavailable Manisha Carrasco MD Unavailable Unavailable Carrasco, Manisha MATOS Unavailable Unavailable Carrasco, Manisha MATOS Unavailable Unavailable Carrasco, Manisha MATOS Unavailable Unavailable Carrasco, Manisha MATOS Unavailable Unavailable Carrasco, Manisha MATOS Unavailable Unavailable Carrasco, Manisha MATOS Unavailable Unavailable Carrasco, Manisha MATOS Unavailable Unavailable Carrasco, Manisha MATOS Unavailable Unavailable Carrasco, Manisha MATOS Unavailable Unavailable Carrasco, Manisha MATOS Unavailable Unavailable Carrasco, Manisha MATOS Unavailable Unavailable Carrasco, Manisha MATOS Unavailable Unavailable Carrasco, Manisha MATOS Unavailable Unavailable Carrasco, Manisha MATOS Unavailable Unavailable Carrasco, Manisha MATOS Unavailable Unavailable Carrasco, Mnaisha MATOS Unavailable Unavailable Carrasco, Manisha MATOS Unavailable Unavailable Carrasco, Manisha MATOS Unavailable Unavailable Carrasco, Manisha MATOS Unavailable Unavailable Carrasco, Manisha MATOS Unavailable Unavailable Carrasco, Manisha MATOS Unavailable Unavailable Carrasco, Manisha MATOS Unavailable Unavailable Carrasco, Manisha MATOS Unavailable Unavailable Carrasco, Manisha MATOS Unavailable Unavailable Carrasco, Manisha MATOS Unavailable Unavailable Carrasco, Manisha MATOS Unavailable Unavailable Carrasco, Manisha MATOS Unavailable Unavailable Carrasco, Manisha MATOS Unavailable Unavailable Carrasco, Manisha MATOS Unavailable Unavailable Carrasco, Manisha MATOS Unavailable Unavailable Carrasco, Manisha MATOS Unavailable Unavailable Carrasco, Manisha MATOS Unavailable Unavailable Carrasco, Manisha MATOS Unavailable Unavailable Carrasco, Manisha MATOS Unavailable Unavailable Carrasco, Manisha MATOS Unavailable Unavailable Carrasco, Manisha MATOS Unavailable Unavailable CarrascoManisha MD Unavailable Unavailable Therese Rincon JR, MD Unavailable Unavailable Therese Rincon JR, MD Unavailable Unavailable Therese Rincon JR, MD Unavailable Unavailable Therese Rincon JR, MD Unavailable Unavailable Therese Rincon JR, MD Unavailable Unavailable Therese Rincon JR, MD Unavailable Unavailable Therese Rincon JR, MD Unavailable Unavailable Therese Rincon JR, MD Unavailable Unavailable Therese Rincon JR, MD Unavailable Unavailable Therese Rincon JR, MD Unavailable Unavailable Therese Rincon JR, MD Unavailable Unavailable Therese Rincon JR, MD Unavailable Unavailable Therese Rincon JR, MD Unavailable Unavailable Therese Rincon JR, MD Unavailable Unavailable Therese Rincon JR, MD Unavailable Unavailable MckenzieTherese rowley JR, MD Unavailable Unavailable Therese Rincon JR, MD Unavailable Unavailable Therese Rincon JR, MD Unavailable Unavailable Therese Rincon JR, MD Unavailable Unavailable Therese Rincon JR, MD Unavailable Unavailable Therese Rincon JR, MD Unavailable Unavailable Therese Rincon JR, MD Unavailable Unavailable MckenzieTherese rowley JR, MD Unavailable Unavailable MckenzieTherese rowley JR, MD Unavailable Unavailable MckenzieTherese rowley JR, MD Unavailable Unavailable MckenzieTherese rowley JR, MD Unavailable Unavailable MckenzieTherese rowley JR, MD Unavailable Unavailable Therese Rincon JR, MD Unavailable Unavailable Therese Rincon JR, MD Unavailable Unavailable Therese Rincon JR, MD Unavailable Unavailable Therese Rincon JR, MD Unavailable Unavailable Therese Rincon JR, MD Unavailable Unavailable Therese Rincon JR, MD Unavailable Unavailable Therese Rincon JR, MD Unavailable Unavailable Therese Rincon JR, MD Unavailable Unavailable Therese Rincon JR, MD Unavailable Unavailable Therese Rincon JR, MD Unavailable Unavailable Therese Rincon JR, MD Unavailable Unavailable Therese Rincon JR, MD Unavailable Unavailable Therese Rincon JR, MD Unavailable Unavailable Therese Rincon JR, MD Unavailable Unavailable Therese Rincon JR, MD Unavailable Unavailable Therese Rincon JR, MD Unavailable Unavailable Therese Rincon JR, MD Unavailable Unavailable Therese Rincon JR, MD Unavailable Unavailable Therese Rincon JR, MD Unavailable Unavailable Therese Rincon JR, MD Unavailable Unavailable Therese Rincon JR, MD Unavailable Unavailable Therese Rincon JR, MD Unavailable Unavailable Therese Rincon JR, MD Unavailable Unavailable Therese Rincon JR, MD Unavailable Unavailable Therese Rincon JR, MD Unavailable Unavailable Therese Rincon JR, MD Unavailable Unavailable Therese Rincon JR, MD Unavailable Unavailable Kel Delgado PA-C Unavailable Unavailable Kel Delgado PA-C Unavailable Unavailable Kel DelgadoC Unavailable Unavailable Kel DelgadoC Unavailable Unavailable Kel Delgado PA-C Unavailable Unavailable Kel DelgadoC Unavailable Unavailable Kel Delgado-C Unavailable Unavailable Delgado, M Christopher PA-C Unavailable Unavailable Delgado, M Christopher PA-C Unavailable Unavailable Delgado, M Christopher PA-C Unavailable Unavailable Delgado, M Christopher PA-C Unavailable Unavailable Delgado, M Christopher PA-C Unavailable Unavailable Delgado, M Christopher PA-C Unavailable Unavailable Delgado, M Christopher PA-C Unavailable Unavailable Delgado, M Christopher PA-C Unavailable Unavailable Delgado, M Christopher PA-C Unavailable Unavailable Delgado, M Christopher PA-C Unavailable Unavailable Delgado, M Christopher PA-C Unavailable Unavailable Delgado, M Christopher PA-C Unavailable Unavailable Delgado, M Christopher PA-C Unavailable Unavailable Delgado, M Christopher PA-C Unavailable Unavailable Delgado, M Christopher PA-C Unavailable Unavailable Delgado, M Christopher PA-C Unavailable Unavailable Delgado, M Christopher PA-C Unavailable Unavailable Delgado, M Christopher PA-C Unavailable Unavailable Delgado, M Christopher PA-C Unavailable Unavailable SAE DELONG MD Unavailable Unavailable SAE DELONG MD Unavailable Unavailable SAE DELONG MD Unavailable Unavailable SAE DELONG MD Unavailable Unavailable Kael Garcia MD Unavailable Unavailable Kael Garcia MD Unavailable Unavailable Kael Garcia MD Unavailable Unavailable Kael Garcia MD Unavailable Unavailable Kael Garcia MD Unavailable Unavailable Kael Garcia MD Unavailable Unavailable Kael Garcia MD Unavailable Unavailable Kael Garcia MD Unavailable Unavailable Kael Garcia MD Unavailable Unavailable Kael Garcia MD Unavailable Unavailable Kael Garcia MD Unavailable Unavailable Kael Garcia MD Unavailable Unavailable Kael Garcia MD Unavailable Unavailable Kael Garcia MD Unavailable Unavailable Kael Garcia MD Unavailable Unavailable Kael Garcia MD Unavailable Unavailable Kael Garcia MD Unavailable Unavailable Kael Garcia MD Unavailable Unavailable Kael Garcia MD Unavailable Unavailable Kael Garcia MD Unavailable Unavailable Kael Garcia MD Unavailable Unavailable Kael Garcia MD Unavailable Unavailable Kael Garcia MD Unavailable Unavailable Kael Garcia MD Unavailable Unavailable Kael Gracia MD Unavailable Unavailable Kael Garcia MD Unavailable Unavailable Kael Garcia MD Unavailable Unavailable Kael Garcia MD Unavailable Unavailable Kael Garcia MD Unavailable Unavailable Kael Garcia MD Unavailable Unavailable Kael Garcia MD Unavailable Unavailable Kael Garcia MD Unavailable Unavailable Kael Garcia MD Unavailable Unavailable Kael Garcia MD Unavailable Unavailable Kael Garcia MD Unavailable Unavailable Kael Garcia MD Unavailable Unavailable Kael Garcia MD Unavailable Unavailable Kael Garcia MD Unavailable Unavailable Kael Garcia MD Unavailable Unavailable Kael Garcia MD Unavailable Unavailable Kael Garcia MD Unavailable Unavailable Kael Garcia MD Unavailable Unavailable Kael Garcia MD Unavailable Unavailable Kael Garcia MD Unavailable Unavailable Kael Garcia MD Unavailable Unavailable Kale Garcia MD Unavailable Unavailable Kael Garcia MD Unavailable Unavailable Kael Garcia MD Unavailable Unavailable Kael Garcia MD Unavailable Unavailable Kael Garcia MD Unavailable Unavailable Kael Garcia MD Unavailable Unavailable Kael Garcia MD Unavailable Unavailable Kael Garcia MD Unavailable Unavailable Kael Garcia MD Unavailable Unavailable Kael Garcia MD Unavailable Unavailable Kael Garcia MD Unavailable Unavailable Kael Garcia MD Unavailable Unavailable Kael Garcia MD Unavailable Unavailable Kael Garcia MD Unavailable Unavailable Kael Garcia MD Unavailable Unavailable Kael Garcia MD Unavailable Unavailable Kael Garcia MD Unavailable Unavailable Kael Garcia MD Unavailable Unavailable Kael Garcia MD Unavailable Unavailable Kael Garcia MD Unavailable Unavailable Kael Garcia MD Unavailable Unavailable Kael Garcia MD Unavailable Unavailable Kael Garcia MD Unavailable Unavailable Kael Garcia MD Unavailable Unavailable Kael Garcia MD Unavailable Unavailable Kael Garcia MD Unavailable Unavailable Kael Garcia MD Unavailable Unavailable Kael Garcia MD Unavailable Unavailable Kael Garcia MD Unavailable Unavailable Kael Garcia MD Unavailable Unavailable Kael Garcia MD Unavailable Unavailable Kael Garcia MD Unavailable Unavailable Kael Garcia MD Unavailable Unavailable Kael Garcia MD Unavailable Unavailable Kael Garcia MD Unavailable Unavailable Kael Garcia MD Unavailable Unavailable Kael Garcia MD Unavailable Unavailable Kael Garcia MD Unavailable Unavailable Kael Garcia MD Unavailable Unavailable Kael Garcia MD Unavailable Unavailable Kael Garcia MD Unavailable Unavailable Kael Garcia MD Unavailable Unavailable Kael Garcia MD Unavailable Unavailable Kael Garcia MD Unavailable Unavailable Kael Garcia MD Unavailable Unavailable Kael Garcia MD Unavailable Unavailable Kael Garcia MD Unavailable Unavailable Kael Garcia MD Unavailable Unavailable RICHARD LARIOS MD Unavailable Unavailable RICHARD LARIOS MD Unavailable Unavailable RICHARD LARIOS MD Unavailable Unavailable RICHARD LARIOS MD Unavailable Unavailable RICHARD LARIOS MD Unavailable Unavailable RICAHRD LARIOS MD Unavailable Unavailable RICHARD LARIOS MD Unavailable Unavailable RICHARD LARIOS MD Unavailable Unavailable RICHARD LARIOS MD Unavailable Unavailable RICHARD LARIOS MD Unavailable Unavailable RICHARD LARIOS MD Unavailable Unavailable RICHARD LARIOS MD Unavailable Unavailable RICHARD LARIOS MD Unavailable Unavailable RICHARD LARIOS MD Unavailable Unavailable CULRICHARD QUIROZ MD Unavailable Unavailable CULRICHARD QUIROZ MD Unavailable Unavailable CULRICHARD QUIROZ MD Unavailable Unavailable CULRICHARD QUIROZ MD Unavailable Unavailable CULRICHARD QUIROZ MD Unavailable Unavailable CULRICHARD QUIROZ MD Unavailable Unavailable CULRICHARD QUIROZ MD Unavailable Unavailable CULEBRICHARD JACOBS MD Unavailable Unavailable CULEBRICHARD JACOBS MD Unavailable Unavailable CULRICHARD QUIROZ MD Unavailable Unavailable CULEBRICHARD JACOBS MD Unavailable Unavailable CULEBRICHARD JACOBS MD Unavailable Unavailable CULEBRICHARD JACOBS MD Unavailable Unavailable RICHARD LARIOS MD Unavailable Unavailable RICHARD LARIOS MD Unavailable Unavailable RICHARD LARIOS MD Unavailable Unavailable TJ BULL Unavailable Unavailable Mercedes SHINE Unavailable Unavailable Kael Garcia MD Unavailable Unavailable Kael Garcia MD Unavailable Unavailable Kael Garcia MD Unavailable Unavailable Kael Garcia MD Unavailable Unavailable Kael Garcia MD Unavailable Unavailable Kael Garcia MD Unavailable Unavailable aKel Garcia MD Unavailable Unavailable Kael Garcia MD Unavailable Unavailable Kael Garcia MD Unavailable Unavailable Kael Garcia MD Unavailable Unavailable Kael Garcia MD Unavailable Unavailable Kael Garcia MD Unavailable Unavailable Kael Garcia MD Unavailable Unavailable Kael Garcia MD Unavailable Unavailable Kael Garcia MD Unavailable Unavailable Kael Garcia MD Unavailable Unavailable Kael Garcia MD Unavailable Unavailable Kael Garcia MD Unavailable Unavailable Kael Garcia MD Unavailable Unavailable Kael Garcia MD Unavailable Unavailable Kael Garcia MD Unavailable Unavailable Kael Garcia MD Unavailable Unavailable Kael Garcia MD Unavailable Unavailable Kael Garcia MD Unavailable Unavailable Kael Garcia MD Unavailable Unavailable Kael Garcia MD Unavailable Unavailable Kael Garcia MD Unavailable Unavailable Kael Garcia MD Unavailable Unavailable Kael Garcia MD Unavailable Unavailable Kael Garcia MD Unavailable Unavailable Kael Garcia MD Unavailable Unavailable Kael Garcia MD Unavailable Unavailable Kael Garcia MD Unavailable Unavailable Kael Garcia MD Unavailable Unavailable Kael Garcia MD Unavailable Unavailable Kael Garcia MD Unavailable Unavailable Kael Garcia MD Unavailable Unavailable Kael Garcia MD Unavailable Unavailable Kael Garcia MD Unavailable Unavailable Kael Garcia MD Unavailable Unavailable Kael Garcia MD Unavailable Unavailable Kael Garcia MD Unavailable Unavailable Kael Garcia MD Unavailable Unavailable Kael Garcia MD Unavailable Unavailable Kael Garcia MD Unavailable Unavailable Kael Garcia MD Unavailable Unavailable Kael Garcia MD Unavailable Unavailable Kael Garcia MD Unavailable Unavailable Kael Garcia MD Unavailable Unavailable Kale Garcia MD Unavailable Unavailable Kael Garcia MD Unavailable Unavailable Kael Garcia MD Unavailable Unavailable Kael Garcia MD Unavailable Unavailable Kael Garcia MD Unavailable Unavailable Kael Garcia MD Unavailable Unavailable Kael Garcia MD Unavailable Unavailable Kael Garcia MD Unavailable Unavailable Kael Garcia MD Unavailable Unavailable Kael Garcia MD Unavailable Unavailable Kael Garcia MD Unavailable Unavailable Kael Garcia MD Unavailable Unavailable Kael Garcia MD Unavailable Unavailable Kael Garcia MD Unavailable Unavailable Kael Garcia MD Unavailable Unavailable Kael Garcia MD Unavailable Unavailable Kael Garcia MD Unavailable Unavailable Kael Garcia MD Unavailable Unavailable Kael Garcia MD Unavailable Unavailable Kael Garcia MD Unavailable Unavailable Kael Garcia MD Unavailable Unavailable Kael Garcia MD Unavailable Unavailable Kael Garcia MD Unavailable Unavailable Kael Garcia MD Unavailable Unavailable Kael Garcia MD Unavailable Unavailable Kael Garcia MD Unavailable Unavailable Kael Garcia MD Unavailable Unavailable Kael Garcia MD Unavailable Unavailable Kael Garcia MD Unavailable Unavailable Kael Garcia MD Unavailable Unavailable Kael Garcia MD Unavailable Unavailable Kael Garcia MD Unavailable Unavailable Kael Garcia MD Unavailable Unavailable Kael Garcia MD Unavailable Unavailable Kael Garcia MD Unavailable Unavailable Kael Garcia MD Unavailable Unavailable Kael Garcia MD Unavailable Unavailable Kael Garcia MD Unavailable Unavailable Kael Garcia MD Unavailable Unavailable Kael Garcia MD Unavailable Unavailable Kael Garcia MD Unavailable Unavailable Kael Garcia MD Unavailable Unavailable Kael Garcia MD Unavailable Unavailable Kael Garcia MD Unavailable Unavailable Alva Boyd MD Unavailable Unavailable Alva Boyd MD Unavailable Unavailable Alva Boyd MD Unavailable Unavailable Alva Boyd MD Unavailable Unavailable Alva Boyd MD Unavailable Unavailable SandovalAlva sanchez MD Unavailable Unavailable Alva Boyd MD Unavailable Unavailable Alva Boyd MD Unavailable Unavailable Sobia Caballero MD Unavailable Unavailable Sobia Caballero MD Unavailable Unavailable Sobia Caballero MD Unavailable Unavailable Sobia Caballero MD Unavailable Unavailable Sobia Caballero MD Unavailable Unavailable Sobia Caballero MD Unavailable Unavailable Sobia Caballero MD Unavailable Unavailable Sobia Caballero MD Unavailable Unavailable Sobia Caballero MD Unavailable Unavailable Sobia Caballero MD Unavailable Unavailable Sobia Caballero MD Unavailable Unavailable CaballeroSobia villanueva MD Unavailable Unavailable Sobia Caballero MD Unavailable Unavailable Sobia Caballero MD Unavailable Unavailable Sobia Caballero MD Unavailable Unavailable Sobia Caballero MD Unavailable Unavailable Sobia Caballero MD Unavailable Unavailable SHARMA, G EDWARD RPA Unavailable Unavailable SHARMA, G EDWARD RPA Unavailable Unavailable SHARMA, G EDWARD RPA Unavailable Unavailable SHARMA, G EDWARD RPA Unavailable Unavailable SHARMA, G EDWARD RPA Unavailable Unavailable SHARMA, G EDWARD RPA Unavailable Unavailable SHARMA, G EDWARD RPA Unavailable Unavailable SHARMA, G EDWARD RPA Unavailable Unavailable SHARMA, G EDWARD RPA Unavailable Unavailable SHARMA, G EDWARD RPA Unavailable Unavailable SHARMA, G EDWARD RPA Unavailable Unavailable SHARMA, G EDWARD RPA Unavailable Unavailable SHARMA, G EDWARD RPA Unavailable Unavailable SHARMA, G EDWARD RPA Unavailable Unavailable SHARMA, G EDWARD RPA Unavailable Unavailable SHARMA, G EDWARD RPA Unavailable Unavailable SHARMA, G EDWARD RPA Unavailable Unavailable SHARMA, G EDWARD RPA Unavailable Unavailable SHARMA, G EDWARD RPA Unavailable Unavailable SHARMA, G EDWARD RPA Unavailable Unavailable SHARMA, G EDWARD RPA Unavailable Unavailable SHARMA, G EDWARD RPA Unavailable Unavailable SHARMA, G EDWARD RPA Unavailable Unavailable SHARMA, G EDWARD RPA Unavailable Unavailable SHARMA, G EDWARD RPA Unavailable Unavailable SHARMA, G EDWARD RPA Unavailable Unavailable SHARMA, G EDWARD RPA Unavailable Unavailable SHARMA, G EDWARD RPA Unavailable Unavailable SHARMA, G EDWARD RPA Unavailable Unavailable SHARMA, G EDWARD RPA Unavailable Unavailable SHARMA, G EDWARD RPA Unavailable Unavailable SHARMA, G EDWARD RPA Unavailable Unavailable SHARMA, G EDWARD RPA Unavailable Unavailable SHARMA, G EDWARD RPA Unavailable Unavailable SHARMA, G EDWARD RPA Unavailable Unavailable SHARMA, G EDWARD RPA Unavailable Unavailable SHARMA, G EDWARD RPA Unavailable Unavailable NISSA, DEBANIK Unavailable Unavailable NISSA, DEBANIK Unavailable Unavailable NISSA, DEBANIK Unavailable Unavailable NISSA, DEBANIK Unavailable Unavailable NISSA, DEBANIK Unavailable Unavailable NISSA, DEBANIK Unavailable Unavailable NISSA, DEBANIK Unavailable Unavailable NISSA, DEBANIK Unavailable Unavailable NISSA, DEBANIK Unavailable Unavailable NISSA, DEBANIK Unavailable Unavailable NISSA, DEBANIK Unavailable Unavailable NISSA, DEBANIK Unavailable Unavailable NISSA, DEBANIK Unavailable Unavailable NISSA, DEBANIK Unavailable Unavailable NISSA, DEBANIK Unavailable Unavailable NISSA, DEBANIK Unavailable Unavailable NISSA, DEBANIK Unavailable Unavailable NISSA, DEBANIK Unavailable Unavailable NISSA, DEBANIK Unavailable Unavailable NISSA, DEBANIK Unavailable Unavailable NISSA, DEBANIK Unavailable Unavailable NISSA, DEBANIK Unavailable Unavailable NISSA, DEBANIK Unavailable Unavailable NISSA, DEBANIK Unavailable Unavailable Derek Lynne MD Unavailable Unavailable Derek Lynne MD Unavailable Unavailable Derek Lynne MD Unavailable Unavailable Derek Lynne MD Unavailable Unavailable Derek Lynne MD Unavailable Unavailable Derek Lynne MD Unavailable Unavailable Derek Lynne MD Unavailable Unavailable Derek Lynne MD Unavailable Unavailable Derek Lynne MD Unavailable Unavailable Derek Lynne MD Unavailable Unavailable Derek Lynne MD Unavailable Unavailable Derek Lynne MD Unavailable Unavailable Derek Lynne MD Unavailable Unavailable Derek Lynne MD Unavailable Unavailable Derek Lynne MD Unavailable Unavailable Derek Lynne MD Unavailable Unavailable Mayes, Lemuel Unavailable Unavailable Mayes, Lemuel Unavailable Unavailable Mayes, Lemuel Unavailable Unavailable Mayes, Lemuel Unavailable Unavailable Mayes, Lemuel Unavailable Unavailable Mayse, Lemuel Unavailable Unavailable Mayes, Lemuel Unavailable Unavailable Mayes, Lemuel Unavailable Unavailable Mayes, Lemuel Unavailable Unavailable Mayes, Lemuel Unavailable Unavailable Mayes, Lemuel Unavailable Unavailable Mayes, Lemuel Unavailable Unavailable Mayes, Lemuel Unavailable Unavailable Mayes, Lemuel Unavailable Unavailable Mayes, Lemuel Unavailable Unavailable Mayes, Lemuel Unavailable Unavailable Mayes, Lemuel Unavailable Unavailable Mayes, Lemuel Unavailable Unavailable Mayes, Lemuel Unavailable Unavailable Mayes, Lemuel Unavailable Unavailable Mayes, Lemuel Unavailable Unavailable Mayes, Lemuel Unavailable Unavailable Mayes, Lemuel Unavailable Unavailable Mayes, Lemuel Unavailable Unavailable Mayes, Lemuel Unavailable Unavailable Mayes, Lemuel Unavailable Unavailable Mayes, Lemuel Unavailable Unavailable Mayes, Lemuel Unavailable Unavailable Mayes, Lemuel Unavailable Unavailable Mayes, Lemuel Unavailable Unavailable Mayes, Lemuel Unavailable Unavailable Mayes, Lemuel Unavailable Unavailable Mayes, Lemuel Unavailable Unavailable Mayes, Lemuel Unavailable Unavailable Mayes, Lemuel Unavailable Unavailable Mayes, Lemuel Unavailable Unavailable Mayes, Lemuel Unavailable Unavailable Mayes, Lemuel Unavailable Unavailable Mayes, Lemuel Unavailable Unavailable Mayes, Lemuel Unavailable Unavailable Mayes, Lemuel Unavailable Unavailable Mayes, Lemuel Unavailable Unavailable Mayes, Lemuel Unavailable Unavailable Mayes, Lemuel Unavailable Unavailable Mayes, Lemuel Unavailable Unavailable Mayes, Lemuel Unavailable Unavailable Mayes, Lemuel Unavailable Unavailable Mayes, Lemuel Unavailable Unavailable Mayes, Lemuel Unavailable Unavailable Mayes, Lemuel Unavailable Unavailable Mayes, Lemuel Unavailable Unavailable Mayes, Lemuel Unavailable Unavailable Mayes, Lemuel Unavailable Unavailable Mayes, Lemuel Unavailable Unavailable Mayes, Lemuel Unavailable Unavailable Mayes, Lemuel Unavailable Unavailable Mayes, Lemuel Unavailable Unavailable Mayes, Lemuel Unavailable Unavailable Mayes, Lemuel Unavailable Unavailable Mayes, Lemuel Unavailable Unavailable Mayes, Lemuel Unavailable Unavailable Mayes, Lemuel Unavailable Unavailable Mayes, Lemuel Unavailable Unavailable Mayes, Lemuel Unavailable Unavailable Mayes, Lemuel Unavailable Unavailable Mayes, Lemuel Unavailable Unavailable Mayes, Lemuel Unavailable Unavailable Mayes, Lemuel Unavailable Unavailable Mayes, Lemuel Unavailable Unavailable Mayes, Lemuel Unavailable Unavailable Mayes, Lemuel Unavailable Unavailable Mayes, Lemuel Unavailable Unavailable Mayes, Lemuel Unavailable Unavailable Mayes, Lemuel Unavailable Unavailable Mayes, Lemuel Unavailable Unavailable Mayes, Lemuel Unavailable Unavailable Mayes, Lemuel Unavailable Unavailable Mayes, Lemuel Unavailable Unavailable Mayes, Lemuel Unavailable Unavailable Re-disclosure Warning The records that you are about to access may contain information from federally-assisted alcohol or drug abuse programs. If such information is present, then the following federally mandated warning applies: This information has been disclosed to you from records protected by federal confidentiality rules (42 CFR part 2). The federal rules prohibit you from making any further disclosure of this information unless further disclosure is expressly permitted by the written consent of the person to whom it pertains or as otherwise permitted by 42 CFR part 2. A general authorization for the release of medical or other information is NOT sufficient for this purpose. The Federal rules restrict any use of the information to criminally investigate or prosecute any alcohol or drug abuse patient.The records that you are about to access may contain highly sensitive health information, the redisclosure of which is protected by Article 27-F of the [facility] [place] Public [facility] law. If you continue you may have access to information: Regarding HIV / AIDS; Provided by facilities licensed or operated by the [facility] Office of Mental Health; or Provided by the [facility] Office for People With Developmental Disabilities. If such information is present, then the following [facility] mandated warning applies: This information has been disclosed to you from confidential records which are protected by state law. State law prohibits you from making any further disclosure of this information without the specific written consent of the person to whom it pertains, or as otherwise permitted by law. Any unauthorized further disclosure in violation of state law may result in a fine or penitentiary sentence or both. A general authorization for the release of medical or other information is NOT sufficient authorization for further disc losure. Allergies and Adverse Reactions Type Description Substance Reaction Status Data Source(s ) Propensity to adverse reactions CONTRAST MEDIA, IODINE RELAT ED CONTRAST MEDIA, IODINE RELATED [facility] Propensity to adverse reactions REGLAN REGLAN [facility] Drug allergy TRAMADOL TRAMADOL [facility] Drug allergy ASPIRIN ASPIRIN [facility] Propensity to adverse reactions TRAMADOL Tramadol Anaphylaxis Hig h Active [facility] High Propensity to adverse reactions PSEUDOEPHEDRINE-ACETAMINOPHE N Pseudoephedrine-Acetaminophen Shortness Of Breath High Active [facility] High Propensity to adverse reactions METOCLOPRAMIDE Metoclopramide Active [facility] Drug allergy metoclopramide metoclopramide [facility] Drug allergy tramadol Tramadol [facility] Drug allergy aspirin Aspirin [facility] Drug allergy metoclopramide metoclopramide [facility] Drug allergy tramadol [facility] aspirin [facility] Drug allergy metoclopramide metoclopramide [facility] Drug allergy tramadol Tramad[facility] Drug allergy aspirin Aspir[facility] Family History Family Member Name Family Member Gender Family Member Status Date o f Status Description Data Source(s) Unknown Condition [facility] Unknown Condition [facility] Unknown Condition [facility] Unknown Condition [facility] Unknown Condition [facility] Unknown Condition [facility] Unknown Condition [facility] Unknown Condition [facility] Unknown Condition [facility] Unknown Condition [facility] Unknown Condition [facility] Unknown Condition [facility] Unknown Condition [facility] Unknown [facility] Encounters Encounter Providers Location Date Indications Data Source(s ) Outpatient Attender: Manisha Carrasco MD 10/24/2021 12:00: 00 AM [facility] Outpatient Attender: SIGRID Elenaender: Sigrid Frausto 09/11/2021 12:00:00 AM [facility] Outpatient Attender: Sigrid FraustoAttender: SIGRID FRAUSTO 09/04/2021 12:00:00 AM [facility] Outpatient Attender: ROSA GUARDADO .Attender: Rosa lópez 07/24/2021 12:00:00 AM [facility] Outpatient Attender: ALVA ROLDAN JR 06/21/2021 12:00:00 AM [facility] Outpatient Attender: ALVA ROLDAN JR 06/21/2021 12:00:00 AM [facility] Outpatient Attender: NEAL Lozanoender: MD Neal juárez 06/12/2021 12:00:00 AM [facility] Emergency Attender: LISA SHOOK MDConsultant: Mp Garcia MD 05/18/2021 11:11:00 AM EDT - 05/18/2021 05:14:00 PM EDT [facility] Patient discharged. Outpatient Attender: Sigrid FraustoAttender: ASHKAN ALTAMIRANOReferrer: Tyrone Garcia MD [id number] 05/08/2021 12:00:00 AM EDT [facility] Outpatient Attender: ALVA ROLDAN JRReferrer: ALVA KISER JR 05/06/2021 12:00:00 AM EDT - 05/06/2021 09:15:18 AM EDT Syncope and collapse [facility] Syncope and collapse Outpatient Attender: Watson Carter MD Physical Therapy 05/02/2021 0 8:30:00 AM EDT [facility] ([facility]) Outpatient Attender: Benedict Edwards/Prachi/Leobardo/Rein dl 05/01/2021 03:45:00 PM EDT [facility] ([facility]) Outpatient Attender: Manisha Carrasco MD [id number] 12:00:00 AM EDT - 04/25/2021 12:03:20 PM EDT [facility] Tyrone Garcia MD: [address] [place] [phone], Ph. Attender: Tyrone Garcia MD [facility] Medical 04/08/2021 12:00:00 AM EDT [facility] ([facility]) Outpatient Attender: ALVA ROLDAN JRReferrer: ALVA KISER JR 04/05/2021 12:00:00 AM EDT [facility] Outpatient Attender: ALVA ROLDAN JR 04/05/2021 12:00:00 AM EDT [facility] Outpatient Attender: Manisha Carrasco MD 03/29/2021 12:00: 00 AM EDT [facility] Outpatient Attender: ENRRIQUE SHARMA RPA 03/28 08:09:51 PM EDT - 03/28/2021 09:12:58 PM EDT [facility] ([facility] ) Outpatient Referrer: Lemuel Mayes 03/22/2021 12:00:00 AM E [facility] Outpatient Attender: Lemuel MayesReferrer: Tyrone Garcia MD [id number] 03/22/2021 12:00:00 AM EDT - 03/22/2021 03:25:54 PM EDT [facility] Outpatient Attender: Lemuel MayesReferrer: Lemuel Mayes 03/22/2021 12:00:00 AM [facility] Outpatient Attender: Lemuel Mayes 03/22/2021 12:00:00 AM E [facility] Outpatient Referrer: Lemuel Mayes 03/22/2021 12:00:00 AM E [facility] Outpatient Referrer: Lemuel Mayes 03/21/2021 12:00:00 AM E [facility] Outpatient Attender: ALVA ROLDAN JR [id number] 02/18 12:00:00 AM EDT - 03/15/2021 04:51:03 PM [facility] Outpatient Attender: Derek Lynne MDAt tender: Herminia Oconnor MDAttender: DAVID GONZALEZ MDAttender: TJ BULLAdmitter: DAVID GONZALEZ MD [id number] 03/11/2021 07:33:00 AM EDT - 03/13/2021 07:37:00 PM EDT [facility] Patient discharged. Outpatient Attender: LISSETTE STEELEReferrer: RICHARD JACOBS MD 03/10/2021 12:00:00 AM EDT Apnea, not elsewhere classified [facility] pital Apnea, not elsewhere classified Fred Traore MD: [address] [place] [phone], Ph. Attender: Fred Traore [facility] Medical 03/05/2021 12:00:00 AM EDT [facility] ([facility]) Fred Traore MD: [address] [place] [phone], Ph. Attender: Fred Traore [facility] 03/05/2021 12:00:00 AM EDT [place] ([facility]) Outpatient Attender: Julio César Delgado PA-C 03/03/2021 09:35:40 PM EDT - 03/03/2021 10:22:53 PM EDT [facility] ([facility]) Inpatient Attender: Stoney Cristina MD Attender: YFN BELTRAN MDAdmitter: Stoney Cristina MD 02/26/2021 04:07:00 AM EDT - 02/26/2021 07:53:00 PM EDT CHEST PAIN,ABDOMINAL PAIN [facility] CHEST PAIN,ABDOMINAL PAIN Patient discharged. Inpatient Attender: TRACY NIELSEN dmitter: TRACY AZARReferrer: ALEXIA TAYLOR [id number] 02/26/2021 12:00:00 AM EDT - 02/28/2021 09:57:00 PM EDT [facility] Patient discharged. Outpatient Attender: Lemuel MayesReferrer: Tyrone Garcia MD [id number] 02/25/2021 12:00:00 AM EDT [facility] Emergency Attender: NIKHIL CAMERONConsultant: Tyrone Garcia MD 02/12/2021 12:21:00 AM EDT - 02/12/2021 04:00:00 AM EDT [facility] Patient discharged. Outpatient 01/21/2021 12:00:00 AM EDT [facility] Outpatient 01/19/2021 12:00:00 AM EDT [facility] Outpatient Attender: ASHUTOSH Lamar: RICHARD Chinchilla MD 01/18/2021 12:00:00 AM EDT Apnea, not elsewhere classified [facility] pital Apnea, not elsewhere classified Outpatient 01/12/2021 12:00:00 AM EDT [facility] Outpatient Attender: ALVA ROLDAN JRReferrer: ALVA KISER JR [id number] 01/03/2021 10:07:58 AM EDT - 01/03/2021 11:05:14 AM EDT [facility] Emergency Attender: MANISHA ROBB MD 12/26/2020 12:0 0:00 AM EDT Unspecified abdominal pain [facility] Unspecified abdominal pain Tyrone Garcia MD: [address] [place] [phone], Ph. Attender: Tyrone Garcia MD [facility] Medical 12/19/2020 12:00:00 AM EDT [place] ([facility]) Tyrone Garcia MD: [address] [place] [address] [phone], Ph. Attender: Tyrone Garcia MD [facility] Medical 12/19/2020 12:00:00 AM EDT [place] ([facility]) Tyrone Garcia MD: [address] [place] [address] [phone], Ph. 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 Attender: Tyrone Garcia MD [facility] Medical 11/22/2020 12:00:00 AM EDT [facility] ([facility]) Tyrone Garcia MD: [address] [place] [phone], Ph. Attender: Tyrone Garcia MD [facility] Medical 11/22/2020 12:00:00 AM EDT [facility] ([facility]) Tyrone Garcia MD: [address] [place] [phone], Ph. Attender: Tyrone Garcia MD [facility] Medical 11/22/2020 12:00:00 AM EDT [facility] ([facility]) Tyrone Garcia MD: [address] [place] [address] [phone], Ph. Attender: Tyrone Garcia MD [facility] Medical 11/22/2020 12:00:00 AM EDT [facility] ([facility]) Outpatient Attender: Julio César Delgado PA-C 11/20/2020 07:36:58 PM EDT - 11/20/2020 09:07:19 PM EDT [facility] ([facility]) Emergency Attender: TEODORO BOYD MDReferrer: TEODORO BOYD MD 11/14/2020 12:00:00 AM EDT Nausea, pain [facility] Nausea, pain Emergency 11/13/2020 12:00:00 AM EDT L ots of chest pain and feeling nauseous [facility] Lots of chest pain and feeling nauseous Outpatient 11/08/2020 12:00:00 AM EDT [facility] Tyrone Garcia MD: [address] [place] [phone], Ph. Attender: Tyrone Garcia MD [facility] Medical 11/01/2020 12:00:00 AM EDT [facility] ([facility]) Tyrone Garcia MD: [address] [place] [address] [phone], Ph. Attender: Tyrone Garcia MD [facility] Medical 11/01/2020 12:00:00 AM EDT [facility] ([facility]) Tyrone Garcia MD: [address] [place] [phone], Ph. Attender: Tyrone Garcia MD [facility] Medical 11/01/2020 12:00:00 AM EDT [facility] ([facility]) Tyrone Garcia MD: [address] [place] [address] [phone], Ph. Attender: Tyrone Garcia MD [facility] Medical 11/01/2020 12:00:00 AM EDT [facility] ([facility]) Tyrone Garcia MD: [address] [place] [address] [phone], Ph. Attender: Tyrone Garcia MD [facility] Medical 11/01/2020 12:00:00 AM EDT [place] ([facility]) Emergency Attender: Maykel DELONG MD 10/27/2020 12:00:0 0 AM EDT Periumbilical pain [facility] Periumbilical pain Outpatient Attender: Lemuel MayesReferrer: Tyrone Garcia MD 0 [id number] 10/23/2020 12:00:00 AM EDT - 10/23/2020 09:07:12 AM EDT Other specified disorders of urinary system [facility] Other specified disorders of urinary sys tem Outpatient Attender: SARAH LANGeferrer: Tyrone luna MD [id number] 10/09/2020 12:00:00 AM EDT - 10/09/2020 09:47:15 AM EDT [facility] Tyrone Garcia MD: [address] [place] [address], Ph. Attender: Tyrone Garcia MD [facility] Medical 10/03/2020 12:00:00 AM EDT [place] ([facility]) Tyrone Garcia MD: [address] [place] [address], Ph. Attender: Tyrone Garcia MD [facility] Medical 10/03/2020 12:00:00 AM EDT [place] ([facility]) Tyrone Garcia MD: [address] [place] [address], Ph. Attender: Tyrone Garcia MD [facility] Medical 10/03/2020 12:00:00 AM EDT [place] ([facility]) Tyrone Garcia MD: [address] [place] [address], Ph. Attender: Tyrone Garcia MD [facility] Medical 10/03/2020 12:00:00 AM EDT [place] ([facility]) Tyrone Garcia MD: [address] [place] [address], Ph. Attender: Tyrone Garcia MD [facility] Medical 10/03/2020 12:00:00 AM EDT [place] ([facility]) Tyrone Garcia MD: [address] [place] [address], Ph. Attender: Tyrone Garcia MD [facility] Medical 10/03/2020 12:00:00 AM EDT [place] ([facility]) Tyrone Garcia MD: [address], [facility] [address], [place] [address], Ph. Attender: Tyrone Garcia MD [facility] Medical 09/26/2020 12:00:00 AM EST [place] ([facility]) Tyrone Garcia MD: [address], [address], [place] [address], Ph. Attender: Tyrone Garcia MD [facility] Medical 09/26/2020 12:00:00 AM EST [place] ([facility]) Tyrone Garcia MD: [address], [address], [place] [address], Ph. Attender: Tyrone Garcia MD [facility] Medical 09/26/2020 12:00:00 AM EST [place] ([facility]) Tyrone Garcia MD: [address], [address], [place] [address], Ph. Attender: Tyrone Garcia MD [facility] Medical 09/26/2020 12:00:00 AM EST [place] ([facility]) Tyrone Garcia MD: [address], [address], [place] [address], Ph. Attender: Tyrone Garcia MD [facility] Medical 09/26/2020 12:00:00 AM EST [place] ([facility]) Tyrone Garcia MD: [address], [address], [place] [address], Ph. Attender: Tyrone Garcia MD [facility] Medical 09/26/2020 12:00:00 AM EST [place] ([facility]) Tyrone Garcia MD: [address], [address], [place] [address], Ph. Attender: Tyrone Garcia MD [facility] Medical 09/26/2020 12:00:00 AM EST [place] ([facility]) Outpatient Attender: Lemuel Mayes [id number] 12:00:00 AM EST - 09/26/2020 12:00:00 AM EST [facility] Painful micturition, unspecified Emergency Attender: Esdras Caballero MD 09/25/2020 12:00:[address] Low back pain [facility] Low back pain Outpatient Attender: Neelima Dougherty MD 0 09/21/2020 07:44:16 PM EST - 09/21/2020 08:02:39 PM EST [facility] ([facility]) Outpatient Attender: ALVA ROLDAN JR [id number] 0311/2020 12:00:00 AM EST - 09/21/2020 01:27:28 PM EST [facility] Outpatient Attender: Manisha Carrasco MD [id number] 12:00:00 AM EST - 09/21/2020 12:25:26 [facility] TYRNOE Chackoferrer: Manisha dang MD 09/21/2020 12:00:00 AM EST - 09/21/2020 02:09:39 PM EST 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 Outpatient Attender: ALVA ROLDAN JR 09/17/2020 12:00:00 AM EST [facility] Emergency Attender: Elmer Boyd MDReferrer: Elmer Boyd MD 09/06/2020 12:00:00 AM EST nausea , headache [facility] nausea , headache Tyrone Garcia MD: [address] [place] [address], Ph. Attender: Tryone Garcia MD [place] [facility] Medical 09/06/2020 12:00:00 AM EST [place] ([facility]) Tyrone Garcia MD: [address] [place] [address], Ph. Attender: Tyrone Garcia MD [facility] Medical 09/06/2020 12:00:00 AM EST [place] ([facility]) Tyrone Garcia MD: [address] [place] [address], Ph. Attender: Tyrone Garcia MD [facility] Medical 09/06/2020 12:00:00 AM EST [place] ([facility]) Tyrone Garcia MD: [address] [place] [address], Ph. Attender: Tyrone Garcia MD [facility] Medical 09/06/2020 12:00:00 AM EST [place] ([facility]) Tyrone Garcia MD: [address] [place] [address], Ph. Attender: Tyrone Garcia MD [facility] Medical 09/06/2020 12:00:00 AM EST [place] ([facility]) Tyrone Garcia MD: [address] [place] [address], Ph. Attender: Tyrone Garcia MD [facility] Medical 09/06/2020 12:00:00 AM EST [place] ([facility]) Tyrone Garcia MD: [address] [place] [address], Ph. Attender: Tyrone Garcia MD [facility] Medical 09/06/2020 12:00:00 AM EST [place] ([facility]) Tyrone Garcia MD: [address] [place] [address], Ph. Attender: Tyrone Garcia MD [facility] Medical 09/06/2020 12:00:00 AM EST [place] ([facility]) Tyrone Garcia MD: [address], [address], [place] [address], Ph. Attender: Tyrone Garcia MD [facility] Medical 08/29/2020 12:00:00 AM EST [place] ([facility]) Tyrone Garcia MD: [address], [address], [place] [address], Ph. Attender: Tyrone Garcia MD [facility] Medical 08/29/2020 12:00:00 AM EST [place] ([facility]) Tyrone Garcia MD: [address], [address], [place] [address], Ph. Attender: Tyrone Garcia MD [facility] Medical 08/29/2020 12:00:00 AM EST [place] ([facility]) Tyrone Garcia MD: [address], [address], [place] [address], Ph. Attender: Tyrone Garcia MD [facility] Medical 08/29/2020 12:00:00 AM EST [place] ([facility]) Tyrone Garcia MD: [address], [address], [place] [address], Ph. Attender: Tyrone Garcia MD [facility] Medical 08/29/2020 12:00:00 AM EST [place] ([facility]) Tyrone Garcia MD: [address], [address], [place] [address], Ph. Attender: Tyrone Garcia MD [facility] Medical 08/29/2020 12:00:00 AM EST [place] ([facility]) Tyrone Garcia MD: [address], [address], [place] [address], Ph. Attender: Tyrone Garcia MD [facility] Medical 08/29/2020 12:00:00 AM EST [place] ([facility]) Tyrone Garcia MD: [address], [place] [address], Ph. Attender: Tyrone Garcia MD [facility] 08/29/2020 12:00:00 AM EST [place] ([facility]) Tyrone Garcia MD: [address], [place] [address], Ph. Attender: Tyrone Garcia MD [facility] 08/29/2020 12:00:00 AM EST [place] ([facility]) Emergency Attender: TEODORO BOYD MD 08/27/2020 12:00:00 A M [facility] Back pain Outpatient Attender: Maria Esther Ellington RD CDNReferrer: Tyrone Rojas rn, MD 08/24/2020 10:04:00 AM EST - 08/24/2020 11:34:00 AM EST Nutrition/5of6 [facility] Nutrition/5of6 Patient discharged. Outpatient Attender: Lemuel Mayes 08/21/2020 12:00:00 AM E [facility] Emergency Attender: Maykel DELONG MD 08/08/2020 12:00:0 0 AM EST Noninfective gastroenteritis and colitis, unspecified [facility] Noninfective gastroenteritis and colitis , unspecified Outpatient Attender: Patricia Dougherty NPReferrer: Tyrone luna MD 07/27/2020 10:31:00 AM EST - 07/27/2020 10:50:00 AM EST Weigh In/4of6 [facility] Weigh In/4of6 Patient discharged. Emergency Attender: TEODORO BOYD MD 07/26/2020 12:00:00 A M [facility] Outpatient Attender: Sergio Benitez MDReferrer: Tyrone Constantino MD 07/18/2020 02:43:00 PM EST - 07/18/2020 03:38:[address]/3of6 [facility] Meet the Dr/3of6 Patient discharged. Emergency Attender: PAULINO CASTELLANOS MDConsultant: Tyrone luna MD 07/15/2020 07:08:00 PM EST - 07/15/2020 10:04:00 PM EST [facility] Patient discharged. Emergency Attender: TEODORO OBYD MD 07/14/2020 12:0 0:00 AM EST dizzy, stomach pain [facility] dizzy, stomach pain Emergency Attender: Maykel DELONG MD 07/02/2020 12:00:0 0 AM EST Viral infection, unspecified [facility] Viral infection, unspecified Emergency Attender: Elmer Boyd MD 06/21/2020 12:0 0:00 AM EST Fever, unspecified [facility] Fever, unspecified Outpatient Attender: ALVA ROLDAN JRReferrer: ALVA KISER JR [id number] 06/18/2020 01:55:37 PM EST - 06/18/2020 03:02:08 PM EST Dilated cardiomyopathy [facility] Dilated cardiomyopathy Outpatient Attender: Maria Esther Ellington RD CDNReferrer: Tyrone Rojas rn, MD 06/12/2020 09:53:00 AM EST - 06/12/2020 10:35:00 AM EST backline/Nutrition/2of6 [facility] backline/Nutrition/2of6 Patient discharged. Outpatient Attender: Adriano Raphael PhDReferrer: Tyrone Constantino MD 06/12/2020 09:00:00 AM EST - 06/12/2020 09:30:00 AM EST PSY Eval [facility] PSY Eval Patient discharged. Emergency Attender: Elmer Boyd MD 05/31/2020 12:0 0:00 AM EST Acute upper respiratory infection, unspecified [facility] Acute upper respiratory infection, unspe cified Tyrone Garcia MD: [address] [place] [address], Ph. Attender: Tyrone Garcia MD [facility] Medical 05/28/2020 12:00:00 AM EST [place] ([facility]) Tyrone Garcia MD: [address] [place] [address], Ph. Attender: Tyrone Garcia MD [facility] Medical 05/28/2020 12:00:00 AM EST [place] ([facility]) Tyrone Garcia MD: [address] [place] [address], Ph. Attender: Tyrone Garcia MD [facility] Medical 05/28/2020 12:00:00 AM EST [facility] ([facility]) Tyrone Garcia MD: [address] [place] [address], Ph. Attender: Tyrone Garcia MD [facility] Medical 05/28/2020 12:00:00 AM EST [facility] ([facility]) Tyrone Garcia MD: [address] [place] [address], Ph. Attender: Tyrone Garcia MD [facility] Medical 05/28/2020 12:00:00 AM EST [place] ([facility]) Tyrone Garcia MD: [address] [place] [address], Ph. Attender: Tyrone Garcia MD [facility] Medical 05/28/2020 12:00:00 AM EST [facility] ([facility]) Tyrone Garcia MD: [address] [place] [address], Ph. Attender: Tyrone Garcia MD [facility] Medical 05/28/2020 12:00:00 AM EST [facility] ([facility]) Tyrone Garcia MD: [address] [place] [address], Ph. Attender: Tyrone Garcia MD [facility] Medical 05/28/2020 12:00:00 AM EST [facility] ([facility]) Tyrone Garcia MD: [address] [place] [address], Ph. Attender: Tyrone [facility] MD [facility] 05/28/2020 12:00:00 AM EST [place] ([facility]) Tyrone Garcia MD: [address] [place] [address], Ph. Attender: Tyrone Garcia MD [facility] Medical 05/28/2020 12:00:00 AM EST [place] ([facility]) Emergency Attender: Maykel DELONG MD 05/21/2020 12:00:0 0 AM EST Acute upper respiratory infection, unspecified [facility] Acute upper respiratory infection, unspe cified Emergency Attender: PAULINO CASTELLANOS MDConsultant: Tyrone luna MD 05/20/2020 07:34:00 PM EST - 05/20/2020 11:01:00 PM EST [facility] Patient discharged. Outpatient Attender: Tyrone Garcia MD 05/16/2020 01:23:00 PM EDT [facility] Outpatient Attender: Sergio Benitez MDConsultant: Camron Benitez MD 05/16/2020 09:23:00 AM EDT [address] [facility] [address] Outpatient Attender: Sergio Benitez MD 1 07:46:00 AM EDT - 05/16/2020 09:58:00 AM EDT [address] [facility] [address] Patient discharged. Emergency Attender: JAY JAY CORONEL MD 05/09/2020 12:00:00 AM EDT [place]uncle, unspecified [facility] Furuncle, unspecified Outpatient Attender: SIGRID FRAUSTO [id number] 05/02/2020 12:00:00 AM EDT [facility] Outpatient 05/02/2020 12:00:00 AM EDT [facility] Outpatient Attender: Tyrone Garcia MD 05/01/2020 11:35:00 AM EDT [facility] Outpatient Attender: Tyrone Garcia MD 05/01/2020 11:34:59 AM EDT [facility] Outpatient Attender: Tyrone Garcia MD 05/01/2020 10:35:01 AM EDT [facility] Outpatient Attender: Tyrone Garcia MD 05/01/2020 10:35:01 AM EDT [facility] Outpatient Attender: Tyrone Garcia MD 04/27/2020 01:49:00 PM EDT [facility] Outpatient Attender: Tyrone Garcia MD FP 04/26/2020 08:24:01 AM EDT [facility] Emergency Attender: NIKHIL Patsuant: Tyrone Garcia MD 04/25/2020 09:46:00 PM EDT - 04/26/2020 12:11:00 AM EDT [facility] Patient discharged. Emergency Attender: JAY JAY CORONEL MD 04/25/2020 12:00:00 AM EDT Syncope and collapse [facility] Syncope and collapse Emergency 04/25/2020 12:00:00 AM EDT passing o ut [facility] passing out Emergency 04/25/2020 12:00:00 AM EDT [facility] Outpatient Attender: Patricia Dougherty NP 12/2019 08:04:00 AM EDT - 04/24/2020 09:12:00 AM EDT New Patient/Online seminar 04/13/20 [facility] New Patient/Online seminar 04/13/20 Patient discharged. Emergency Attender: VERONICA GUSMAN MD 0 12:00:00 AM EDT Right upper quadrant pain [facility] Right upper quadrant pain Outpatient Attender: Tyrone Garcia MD FP 04/17/2020 11:10:00 AM EDT [facility] Outpatient Attender: SRUTHI CORONEL [id number] 04/14/2020 11:42:47 PM EDT [facility] Outpatient Attender: Sergio Benitez MD 0 04/13/2020 04:00:00 PM EDT - 04/13/2020 12:50:00 PM EDT Online Seminar [facility] Online Seminar Patient discharged. Emergency Attender: JAY JAY CORONEL MD 04/04/2020 12:00:00 AM EDT Viral infection, unspecified [facility] Viral infection, unspecified Emergency 04/03/2020 12:00:00 AM EDT general f eeling of unwell [facility] general feeling of unwell Outpatient Attender: Tyrone Garcia MD FP 03/30/2020 01:17:02 PM EDT [facility] Outpatient Attender: Tyrone Garcia MD FP 03/30/2020 01:17:02 PM EDT [facility] Outpatient Attender: Tyrone SOLANO 03/27/2020 09:27:01 AM EDT [facility] Emergency Attender: GEORGE REYES MD [id number] 10/2019 12:00:00 AM EDT - 03/23/2020 09:53:00 PM EDT Upper abdominal pain, unspecified [facility] Upper abdominal pain, unspecified Patient discharged. Outpatient Attender: Manisha Carrasco MD [id number] 12:00:00 AM EDT - 03/23/2020 11:59:02 AM EDT [facility] Outpatient Attender: ALVA ROLDAN JR [id number]-XXUCCAR 01/2020 12:00:00 AM EDT - 02/24/2020 04:17:22 PM EDT Palpitations [facility] Palpitations Functional Status Immunizations Vaccine Date Status Description Data Source(s) COVID-19 VACCINE Moderna 05/20/2021 12:00:00 AM EDT completed [place] Vaccine Series Complete: YESThis Data wa s Submitted to [facility] Via [email or web address]. COVID-19, mRNA, LNP-S, PF, 100 mcg/0.5 mL dose 11/01/2020 11 :16:02 AM EDT completed .5 mL [facility] ([facility]) COVID-19, mRNA, LNP-S, PF, 100 mcg/0.5 mL dose 11/01/2020 11 :16:02 AM EDT [facility] COVID-[facility], mRNA, LNP-S, PF, 100 mcg/0.5 mL dose 11/01/2020 11 :16:02 AM EDT completed .5 mL [facility] ([facility]) COVID-19, mRNA, LNP-S, PF, 100 mcg/0.5 mL dose 11/01/2020 11 :16:02 AM EDT completed .5 mL [facility] ([facility]) COVID-19, mRNA, LNP-S, PF, 100 mcg/0.5 mL dose 11/01/2020 11 :16:02 AM EDT completed .5 mL [facility] ([facility]) COVID-19 VACCINE Moderna 11/01/2020 12:00:00 AM EDT completed [place] Vaccine Series Complete: YESThis Data wa s Submitted to [facility] Via [employer]. COVID-19, mRNA, LNP-S, PF, 100 mcg/0.5 mL dose 10/03/2020 05 :42:15 PM EDT completed .5 mL [facility] ([facility]) COVID-19, mRNA, LNP-S, PF, 100 mcg/0.5 mL dose 10/03/2020 05 :42:15 PM EDT completed .5 mL [facility] ([facility]) COVID-19, mRNA, LNP-S, PF, 100 mcg/0.5 mL dose 10/03/2020 05 :42:15 PM EDT completed .5 mL [facility] ([facility]) COVID-19, mRNA, LNP-S, PF, 100 mcg/0.5 mL dose 10/03/2020 05 :42:15 PM EDT completed .5 mL [facility] ([facility]) COVID-19, mRNA, LNP-S, PF, 100 mcg/0.5 mL dose 10/03/2020 05 :42:15 PM EDT completed .5 mL [facility] ([facility]) COVID-19, mRNA, LNP-S, PF, 100 mcg/0.5 mL dose 10/03/2020 05 :42:15 PM EDT completed .5 mL [facility] ([facility]) COVID-19 VACCINE Moderna 10/03/2020 12:00:00 AM EDT completed [place] Vaccine Series Complete: NOThis Data was Submitted to [facility] Via [employer]. Medications Medication Brand Name Start Date Product Form Dose Route Admi nistrative Instructions Pharmacy Instructions Status Indications Reaction Description Data Source(s) iohexol (OMNIPAQUE) 300 MG/ML contrast injection 100 mL [id number] 03/22/2021 03:00:00 PM EDT 100 mL Intravenous completed 100 mL, Intravenous, 1 TIME IMAGING, On Thu03/22/21 at 1500, For 1 dose, Imaging Protocol [facility] Medication administered onsite furosemide (LASIX) injection 20 mg [id number] 03/22/2021 01:15:00 PM EDT 20 mg Intravenous completed 20 mg, I ntravenous, Once, On Thu03/22/21 at 1315, For 1 dose
Notify provider if systolic blood pressure less than: 90 mmHg [facility] Medication administered onsite TC-99M pentetate [id number] 03/22/2021 09:45:00 AM EDT Intr avenous completed Intravenous, Once, On Thu03/22/21 at 0945, For 1 dose, Imaging Protocol [facility] Medication administered onsite sodium chloride 0.9% (NS) infusion 03/13/2021 07:00:00 P M EDT Intravenous active at 50 mL/hr, Intravenous, Continuous, Starting on Thu03/13/21 at 1900, For 12 hours [facility] Medication administered onsite sodium chloride 0.9% (NS) bolus 250 mL 01:00:00 PM EDT 250 mL Intravenous completed 250 mL, In travenous, Administer over 1 Hours, Once, On Thu03/13/21 at 1300, For 1 dose [facility] Medication administered onsite lidocaine (ASPERCREME) 4 % 1 patch [id number] 03/13/2021 11:00:00 AM EDT 1 {patch} Transdermal active 1 patch, Transdermal, Administer over 12 Hours, Daily, First dose on Thu03/13/21 at 1100
LUQ abdomen
[facility] Medication administered onsite Ondansetron 4 MG Disintegrating Oral Tab let ondansetron (ZOFRAN-ODT) disintegrating tablet 4 mg ondansetron (ZOFRAN-ODT) disintegrating tablet 4 mg 03/13/2021 10:20:53 AM EDT 4 mg Oral active 4 mg, Oral, Every 6 hours PRN, nausea, vomiting, Starting on Thu03/13/21 at 1020 [facility] Medication administered onsite Ibuprofen 600 MG Oral Tablet ibuprofen (ADVIL,MOTRIN) tablet 600 mg ibuprofen (ADVIL,MOTRIN) tablet 600 mg 03/12/2021 10:52:00 PM EDT 600 mg Oral aborted 600 mg, Oral, Every 6 hours PRN, fever, headaches, Starting on Thu03/12/21 at 2252 [facility] Medication administered onsite ondansetron (ZOFRAN) injection 4 mg [id number] 03/12/2021 07:42:2 5 PM EDT 4 mg Intravenous active 4 mg, In travenous, Every 6 hours PRN, nausea, vomiting, Starting on Thu03/12/21 at 1942 [facility] Medication administered onsite technetium sestamibi (CARDIOLITE) injection 35 millaquilino huitron or medication 03/12/2021 03:00:00 PM EDT 35 mCi Intravenous completed 35 millicurie, Intravenous, Once, On Thu03/12/21 at 1500, For 1 dose [facility] Medication administered onsite technetium sestamibi (CARDIOLITE) injection 10 millicgiselle huitron or medication 03/12/2021 03:00:00 PM EDT 10 mCi Intravenous completed 10 millicurie, Intravenous, Once, On Thu03/12/21 at 1500, For 1 dose [facility] Medication administered onsite sodium chloride 0.9% (NS) bolus 250 mL 12:00:00 PM EDT 250 mL Intravenous active 250 mL, Intr avenous, Administer over 1 Hours, Once, On Thu03/12/21 at 1200, For 1 dose [facility] Medication administered onsite potassium chloride SA (K-DUR,KLOR-CON) CR tablet 40 mEq [id number] 03/12/2021 11:00:00 AM EDT 40 meq Oral completed 40 mEq, Oral, Once, On Thu03/12/21 at 1100, For 1 dose [facility] Medication administered onsite sodium chloride 0.9% (NS) bolus 250 mL 10:00:00 AM EDT 250 mL Intravenous completed 250 mL, In travenous, Administer over 1 Hours, Once, On Thu03/12/21 at 1000, For 1 dose [facility] Medication administered onsite Acetaminophen 325 MG Oral Tablet acetaminophen (TYLENO L) 325 MG tablet 650 mg acetaminophen (TYLENOL) 325 MG tablet 650 mg 03/12/2021 06:44:38 AM EDT 650 mg Oral active 650 mg, Or al, Every 4 hours PRN, moderate pain (4-6), headaches, Starting on Thu03/12/21 at 0644
"Maximum dose of acetaminophen is 4,000 mg from all sources in 24 hours."
[facility] Medication administered onsite heparin (porcine) injection 5,000 Units [id number] 03/11/20 09:00:00 PM EDT 5000 U Subcutaneous active 5,000 Units , Subcutaneous, Every 12 hours (scheduled), First dose on Thu03/11/21 at 2100
If platelet count is less than 70,000 or hematocrit is less than 25, or if there is a 5 point decrease in hematocrit, do not give the dose and call physician/designee.
[facility] Medication administered onsite regadenoson (LEXISCAN) solution 0.4 mg [id number] 03/11/2021 09:0 0:00 PM EDT 0.4 mg Intravenous completed 0.4 mg, Intravenous, Once, On Thu03/11/21 at 2100, For 1 dose, [employer]
No Caffeine, Theophylline, or Dipyridamole (Aggrenox) for 12 hours prior to dose. If patient has had any of these, contact MD immediately
[facility] Medication administered onsite Nitroglycerin 0.4 MG Sublingual Tablet n itroglycerin (NITROSTAT) SL tablet 0.4 mg nitroglycerin (NITROSTAT) SL tablet 0.4 mg 03/11/2021 08:21:48 P M EDT 0.4 mg Sublingual active 0.4 mg, S ublingual, Every 5 min PRN, chest pain, Starting on Thu03/11/21 at 2020
May administer up to 3 doses per episode.
[facility] Medication administered onsite sodium chloride 0.9% (NS) bolus 500 mL [id number] 08/23/202 1 02:20:00 PM EDT 500 mL Intravenous completed 500 mL, In travenous, Administer over 1 Hours, Once, On Thu03/11/21 at 1420, For 1 dose [facility] Medication administered onsite Acetaminophen 500 MG Oral Tablet acetaminophen (TYLENO L) tablet 500 mg acetaminophen (TYLENOL) tablet 500 mg 03/11/2021 10:45:00 AM EDT 50 0 mg Oral completed 500 mg, Oral, O nce, On Thu03/11/21 at 1045, For 1 dose
"Maximum dose of acetaminophen is 4,000 mg from all sources in 24 hours."
[facility] Medication administered onsite sodium chloride 0.9 % bolus 500 mL 02/28/2021 06:45:00 PM EDT 500 mL Intravenous completed 500 mL, Intravenous, Once, On Pallavi 02/28/21 at 1845, For 1 dose [facility] Medication administered onsite Ondansetron 4 MG Oral Tablet ondansetron (ZOFRAN) tabl et 4 mg ondansetron (ZOFRAN) tablet 4 mg 02/28/2021 10:19:18 AM EDT 4 mg Oral active 4 mg, Oral, Every 8 hours PRN, Nausea, Vomiting, Starting on Pallavi 02/28/21 at 1019, For 30 days [facility] Medication administered onsite POLYETHYLENE GLYCOL 3350 142 MG/ML Oral Solution Polyethylene Glycol 3350 17 GM Oral Packet (MIRALAX) Polyethylene Glycol 3350 17 GM Oral Packet (MIRALAX) 02/28/2021 12:00:00 AM EDT 17 g Oral active Take 1 packet by mouth Two Times Daily for 3 daysPlease substitute bottle for packets, if packets are unavailable. [facility] sennosides, LONG TERM 35.2 MG/ML Oral Solution Senna 176 MG/ 5ML Oral Syrup (SENOKOT) Senna 176 MG/5ML Oral Syrup (SENOKOT) 02/28/2021 12:00:00 AM EDT 10 m L Oral completed Take 10 mLs by mouth nightly [facility] Lidocaine 5 % External Patch (LIDODERM) [id number] 02/29/20 12:00:00 AM EDT 1 {patch} Transdermal completed Place 1 patch onto the skin daily 12 hours on 12 hours off [facility] lidocaine (LIDODERM) 5 % patch 1 patch [id number] 05:00:00 PM EDT 1 {patch} Transdermal active 1 patch, T ransdermal, Daily Standard, First dose on Thu02/27/21 at 1700, For 3 days
Apply to lower back on the right side 12 hours on - 12 hours off
[facility] Medication administered onsite Acetaminophen 325 MG Oral Tablet acetaminophen (TYLENO L) tablet 650 mg acetaminophen (TYLENOL) tablet 650 mg 02/27/2021 04:45:40 PM EDT 65 0 mg Oral active 650 mg, Oral, E very 8 hours PRN, Mild Pain (Pain Scale Score 1- 3), Starting on Thu02/27/21 at 1645, For 3 days
Maximum daily dose of acetaminophen is 3,000 mg from all sources in 24 hours.
[facility] Medication administered onsite lidocaine (XYLOCAINE) 1 % injection 5 mL [id number] 02/27/2021 11:51:50 AM EDT 5 mL Subcutaneous active 5 m L, Subcutaneous, Once PRN, For MIDLINE Catheter insertion, Starting on Thu02/27/21 at 1151, For 30 days [facility] Medication administered onsite sodium chloride (preservative free) 0.9 % flush 10 mL 02/27/2021 11:51:49 AM EDT 10 mL Intravenous active [Ord er 1 Start] Name: Midline Catheter Insertion Signed Summary: Routine, ONCE, On Thu02/27/21 at 1152, For 1 occurrence
Reason for MIDLINE insertion: Access [Order 1 End] [Order 2 Start] Name: sodium chloride (preservative free) 0.9 % flush 10 mL Signed Summary: 10 mL, Intravenous, PRN, Line Care, Starting on Thu02/27/21 at 1151, For 30 days
When catheter is not in use flush with 10mL Sodium Chloride. Every 12h. Reference CM P-05 Extended Dwell/Midline Peripheral Catheter.
[Order 2 End] [Order 3 Start] Name: sodium chloride (preservative free) 0.9 % flush 10 mL Signed Summary: 10 mL, Intravenous, PRN, Line Care, Starting on Thu02/27/21 at 1151, For 30 days
Flush with 10 mL Sodium Chloride before and after infusions or blood sampling. Reference CM-05 Extended Dwell/Midline Peripheral Catheter.
[Order 3 End] [facility] Medication administered onsite ondansetron (ZOFRAN) injection 4 mg [id number] 02/27/2021 11:51:2 4 AM EDT 4 mg Intravenous aborted 4 mg, In travenous, Every 8 hours PRN, Nausea, Vomiting, Starting on Thu02/27/21 at 1151, For 30 days [facility] Medication administered onsite perflutren lipid microspheres (DEFINITY) injectable suspensi on 9.78 mg [id number] 02/27/2021 11:23:35 AM EDT 1.5 mL Intravenous active 9.78 mg (1.5 mL), Intravenous, Once PRN, Other, Echo imaging enhancement, Starting on Thu02/27/21 at 1123, For 72 hours [facility] Medication administered onsite POLYETHYLENE GLYCOL 3350 142 MG/ML Oral Solution polyethylene glycol (MIRALAX) packet 17 g polyethylene glycol (MIRALAX) packet 17 g 02/27/2021 0 9:00:00 AM EDT 17 g Oral active 17 g, Or al, 2 Times Daily, First dose (after last modification) on Thu02/27/21 at 0900, For 7 days
Mix in 8 ounces of water, juice or milk. Avoid use in patients who require thickened liquids due to p otential increased risk for aspiration.
[facility] Medication administered onsite Acetaminophen 10 MG/ML Injectable Soluti on acetaminophen (OFIRMEV) infusion 1,000 mg acetaminophen (OFIRMEV) infusion 1,000 mg 02/27/2021 07:00:00 AM EDT 1000 mg Intravenous completed 1,000 mg , Intravenous, Administer over 15 Minutes, Once, On Thu02/27/21 at 0700, For 1 dose
Maximum daily dose of acetaminophen from all sources 3,000 mg daily.
[facility] Medication administered onsite Calcium Carbonate 500 MG Chewable Tablet calcium carbonate (TUMS) chewable tablet 1,000 mg calcium carbonate (TUMS) chewable tablet 1,000 mg 02/17 06:42:50 AM EDT 1000 mg Oral active 1,000 mg, Oral, Three Times Daily-PRN, Indigestion, Starting on Thu02/27/21 at 0642, For 30 days [facility] Medication administered onsite Bisacodyl 10 MG Rectal Suppository bisacodyl (DULCOLAX ) suppository 10 mg bisacodyl (DULCOLAX) suppository 10 mg 02/27/2021 04:12:57 AM EDT 10 mg Rectal active 10 mg, Rectal, Daily PRN, Constipation, Starting on Thu02/27/21 at 0412, For 30 days [facility] Medication administered onsite sennosides, LONG TERM 35.2 MG/ML Oral Solution senna (SENOKO T) syrup 10 mL senna (SENOKOT) syrup 10 mL 02/27/2021 02:00:00 AM EDT 10 mL Oral active 10 mL, Oral, Nightly, First dose on Thu02/27/21 at 0200, For 30 days [facility] Medication administered onsite Acetaminophen 10 MG/ML Injectable Soluti on acetaminophen (OFIRMEV) infusion 1,000 mg acetaminophen (OFIRMEV) infusion 1,000 mg 02/26/2021 11:15:00 PM EDT 1000 mg Intravenous completed 1,000 mg , Intravenous, Administer over 15 Minutes, Once, On Thu02/26/21 at 2315, For 1 dose
Maximum daily dose of acetaminophen from all sources 3,000 mg daily.
[facility] Medication administered onsite Potassium Chloride 10 MEQ Extended Relea se Oral Tablet Potassium Chloride (Klor- Con 10) 10 mEq Tablet Extended Release Potassium Chloride (Klor-Con 10) 10 mEq Tablet Extended Release 02/25/2021 11:04:24 PM EDT [address] [facility] Furosemide 20 MG Oral Tablet Furosemide (Lasix) 20 mg Tablet Furosemide (Lasix) 20 mg Tablet 02/25/2021 11:04:24 PM EDT [address] [facility] Amitriptyline Hydrochloride 10 MG Oral T ablet Amitriptyline HCl 10 MG Oral Tablet (ELAVIL) Amitriptyline HCl 10 MG Oral Tablet (ELAVIL) 12:00:00 AM EDT 30 mg Oral aborted Take 3 tablets b y mouth nightly [facility] Sulfamethoxazole 800 MG / Trimethoprim 1 60 MG Oral Tablet sulfamethoxazole- trimethoprim (BACTRIM DS) 800-160 MG per tablet 1 tablet sulfamethoxazole- trimethoprim (BACTRIM DS) 800-160 MG per tablet 1 tablet 10/09/2020 09:45:00 AM EDT 1 {tbl} Oral active [facility] Cyclobenzaprine hydrochloride 10 MG Oral Tablet Cyclobenzaprine HCl 10 MG Oral Tablet (FLEXERIL) Cyclobenzaprine HCl 10 MG Oral Tablet (FLEXERIL) 09/25 12:00:00 AM EST 10 mg Oral active Take 1 tablet by mouth Three times daily as needed for Muscle spasms for up to 5 days [facility] Amitriptyline Hydrochloride 10 MG Oral T ablet Amitriptyline HCl 10 MG Oral Tablet (ELAVIL) Amitriptyline HCl 10 MG Oral Tablet (ELAVIL) 12:00:00 AM EST 10 mg Oral active Take 1 t ablet by mouth nightly 1 po qhs. After one month increase to 2 po qhs and after another month increase to 3 po qhs [facility] Amoxicillin 875 MG / Clavulanate 125 MG Oral Tablet Amoxicillin-Pot Clavulanate 875-125 MG Oral Tablet (AUGMENTIN) Amoxicillin-Pot Clavulanate 875-125 MG O ral Tablet (AUGMENTIN) 09/21/2020 12:00:00 AM EST abor livia [facility] Ondansetron 4 MG Oral Tablet Ondansetron HCl 4 MG Oral Tablet (ZOFRAN) Ondansetron HCl 4 MG Oral Tablet (ZOFRAN) 09/06/2020 12:00:00 AM EST 8 mg Oral active Nausea Take 2 tablets by mouth every 8 (eight) hours as needed for Nausea for up to 7 days [facility] Nausea Furosemide 20 MG Oral Tablet Furosemide 20 MG Oral Tab let (LASIX) Furosemide 20 MG Oral Tablet (LASIX) 08/13/2020 12:00:00 AM EST 20 mg Oral aborted Take 1 tablet by mouth daily [facility] Albuterol Sulfate HFA 108 (90 Base) MCG/ ACT Inhalation Aerosol Solution (PROVENTIL HFA) [id number] 05/31/2020 12:00:00 AM EST 2 {puff} Inha lation aborted Mild intermittent reactive a irway disease without complicationUpper respiratory tract infection, unspecified type Inhale 2 puffs into the lungs every 4 (four) hours as needed for Wheezing or Shortness of Breath (cough)Use with spacer [facility] 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 Upper respiratory tract infection, unspe cified type doxycycline hyclate 100 MG Oral Capsule Doxycycline Hyclate 100 MG Oral Capsule (VIBRAMYCIN) Doxycycline Hyclate 100 MG Oral Capsule (VIBRAMYCIN) 1 12:00:00 AM EDT 100 mg Oral active Take 1 capsule by mouth Two Times Daily for 10 days [facility] Mexiletine Hydrochloride 150 MG Oral Cap gray Mexiletine HCl 150 MG Oral Capsule (MEXITIL) Mexiletine HCl 150 MG Oral Capsule (MEXITIL) 0 12:00:00 AM EDT 150 mg Oral aborted Take 1 capsule b y mouth Two Times Daily [facility] Loperamide Hydrochloride 2 MG Oral Capsu le Loperamide HCl 2 MG Oral Capsule (IMODIUM) Loperamide HCl 2 MG Oral Capsule (IMODIUM) 05/03/2020 12:00: 00 AM EDT aborted TAKE ONE CAPSULE BY MOUTH TWICE A DAY NEEDED FOR DIARREA FOR UP TO 10 DAYS [facility] pantoprazole 40 MG Delayed Release Oral Tablet Pantoprazole Sodium 40 MG Oral Tablet Delayed Release (PROTONIX) Pantoprazole Sodium 40 MG Oral Tablet De layed Release (PROTONIX) 05/02/2020 12:00:00 AM EDT 40 mg Oral active Take 1 tablet by mouth daily [facility] Loperamide Hydrochloride 2 MG Oral Table t Loperamide HCl 2 MG Oral Tablet (Imodium A-D) Loperamide HCl 2 MG Oral Tablet (Imodium A-D) 05/02/20 12:00:00 AM EDT 2 mg Oral active Take 1 t ablet by mouth Two times daily as needed for Diarrhea for up to 10 days [facility] Dicyclomine Hydrochloride 10 MG Oral Capsule Dicyclomi ne HCl 10 MG Oral Capsule Dicyclomine HCl 10 MG Oral Capsule 05/02/2020 12:00:00 AM EDT 10 mg Oral aborted Take 1 capsule by mouth Two time s daily as needed (abdomen cramps) [facility] Furosemide 20 MG Oral Tablet Furosemide (Lasix) 20 mg tablet Furosemide (Lasix) 20 mg tablet 04/24/2020 08:37:12 AM EDT TABLET 20 MG ORAL active [facility] Furosemide 20 MG Oral Tablet Furosemide (Lasix) 20 mg tablet Furosemide (Lasix) 20 mg tablet 04/24/2020 08:37:12 AM EDT TABLET 20 MG ORAL active [facility] Furosemide 20 MG Oral Tablet Furosemide (Lasix) 20 mg tablet Furosemide (Lasix) 20 mg tablet 04/24/2020 08:37:12 AM EDT TABLET 20 MG ORAL active [facility] Furosemide 20 MG Oral Tablet Furosemide (Lasix) 20 mg tablet Furosemide (Lasix) 20 mg tablet 04/24/2020 08:37:12 AM EDT TABLET 20 MG ORAL active [facility] Furosemide 20 MG Oral Tablet Furosemide (Lasix) 20 mg tablet Furosemide (Lasix) 20 mg tablet 04/24/2020 08:37:12 AM EDT TABLET 20 MG ORAL active [facility] Furosemide 20 MG Oral Tablet Furosemide (Lasix) 20 mg tablet Furosemide (Lasix) 20 mg tablet 04/24/2020 08:37:12 AM EDT TABLET 20 MG ORAL active [facility] Furosemide 20 MG Oral Tablet Furosemide (Lasix) 20 mg tablet Furosemide (Lasix) 20 mg tablet 04/24/2020 08:37:12 AM EDT TABLET 20 MG ORAL active [facility] Furosemide 20 MG Oral Tablet Furosemide (Lasix) 20 mg tablet Furosemide (Lasix) 20 mg tablet 04/24/2020 08:37:12 AM EDT TABLET 20 MG ORAL active [facility] Furosemide 20 MG Oral Tablet Furosemide (Lasix) 20 mg tablet Furosemide (Lasix) 20 mg tablet 04/24/2020 08:37:12 AM EDT TABLET 20 MG ORAL active [facility] Furosemide 20 MG Oral Tablet Furosemide (Lasix) 20 mg tablet Furosemide (Lasix) 20 mg tablet 04/24/2020 08:37:12 AM EDT TABLET 20 MG ORAL active [facility] Furosemide 20 MG Oral Tablet Furosemide (Lasix) 20 mg tablet Furosemide (Lasix) 20 mg tablet 04/24/2020 08:37:12 AM EDT TABLET 20 MG ORAL active [facility] Furosemide 20 MG Oral Tablet Furosemide (Lasix) 20 mg tablet Furosemide (Lasix) 20 mg tablet 04/24/2020 08:37:12 AM EDT TABLET 20 MG ORAL active [facility] Furosemide 20 MG Oral Tablet Furosemide (Lasix) 20 mg tablet Furosemide (Lasix) 20 mg tablet 04/24/2020 08:37:12 AM EDT TABLET 20 MG ORAL active [facility] Furosemide 20 MG Oral Tablet Furosemide (Lasix) 20 mg tablet Furosemide (Lasix) 20 mg tablet 04/24/2020 08:37:12 AM EDT TABLET 20 MG ORAL active [facility] pantoprazole 40 MG Delayed Release Oral Tablet Pantoprazole Sodium 40 MG Oral Tablet Delayed Release (PROTONIX) Pantoprazole Sodium 40 MG Oral Tablet De layed Release (PROTONIX) 04/04/2020 12:00:00 AM EDT 40 mg Oral aborted Take 1 tablet by mouth daily [facility] Sucralfate 100 MG/ML Oral Suspension suc ralfate (CARAFATE) 1 GM/10ML suspension 1 g sucralfate (CARAFATE) 1 GM/10ML suspension 1 g 03/23/2020 08:15: 00 PM EDT 1 g Oral active 1 g, Oral, Every 6 hours Standard, First dose (after last modification) on Thu03/23/20 at 2015, For 30 days [facility] Medication administered onsite Potassium Chloride 10 MEQ Extended Relea se Oral Tablet Potassium Chloride ER 10 MEQ Oral Tablet Extended Release (K-DUR) Potassium Chloride ER 10 MEQ Oral Tablet Extended Release (K-DUR) 02/24/2020 12:00:00 AM EDT 10 meq O ral completed Take 1 tablet by mouth daily [facility] Furosemide 20 MG Oral Tablet Furosemide 20 MG Oral Tab let (LASIX) Furosemide 20 MG Oral Tablet (LASIX) 02/24/2020 12:00:00 AM EDT 20 mg Oral active Take 1 tablet by mouth daily [facility] Levoxyl Unknown Dose 10/27/2012 04:26:03 PM EDT completed [facility] Levoxyl Unknown Dose 10/27/2012 04:26:03 PM EDT completed [facility] Levoxyl Unknown Dose 10/27/2012 04:26:03 PM EDT completed [facility] Ferrous Sulfate (Iron) 325 MG tablet 10/27/2012 04:26:03 P M EDT TABLET 325 MG ORAL completed [facility] Ferrous Sulfate (Iron) 325 MG tablet 10/27/2012 04:26:03 P M EDT TABLET 325 MG ORAL completed [facility] Ferrous Sulfate (Iron) 325 MG tablet 10/27/2012 04:26:03 P M EDT TABLET 325 MG ORAL completed [facility] Levoxyl Unknown Dose 10/27/2012 04:26:03 PM EDT completed [facility] Levoxyl Unknown Dose 10/27/2012 04:26:03 PM EDT completed [facility] Levoxyl Unknown Dose 10/27/2012 04:26:03 PM EDT completed [facility] Levoxyl Unknown Dose 10/27/2012 04:26:03 PM EDT completed [facility] Ferrous Sulfate (Iron) 325 MG tablet 10/27/2012 04:26:03 P M EDT TABLET 325 MG ORAL completed [facility] Ferrous Sulfate (Iron) 325 MG tablet 10/27/2012 04:26:03 P M EDT TABLET 325 MG ORAL completed [facility] Ferrous Sulfate (Iron) 325 MG tablet 10/27/2012 04:26:03 P M EDT TABLET 325 MG ORAL completed [facility] Levoxyl Unknown Dose 10/27/2012 04:26:03 PM EDT completed [facility] Levoxyl Unknown Dose 10/27/2012 04:26:03 PM EDT completed [facility] Ferrous Sulfate (Iron) 325 MG tablet 10/27/2012 04:26:03 P M EDT TABLET 325 MG ORAL completed [facility] Ferrous Sulfate (Iron) 325 MG tablet 10/27/2012 04:26:03 P M EDT TABLET 325 MG ORAL completed [facility] Ferrous Sulfate (Iron) 325 MG tablet 10/27/2012 04:26:03 P M EDT TABLET 325 MG ORAL completed [facility] Levoxyl Unknown Dose 10/27/2012 04:26:03 PM EDT completed [facility] Ferrous Sulfate (Iron) 325 MG tablet 10/27/2012 04:26:03 P M EDT TABLET 325 MG ORAL completed [facility] Ferrous Sulfate (Iron) 325 MG tablet 10/27/2012 04:26:03 P M EDT TABLET 325 MG ORAL completed [facility] Levoxyl Unknown Dose 10/27/2012 04:26:03 PM EDT completed [facility] Ferrous Sulfate (Iron) 325 MG tablet 10/27/2012 04:26:03 P M EDT TABLET 325 MG ORAL [facility] Ferrous Sulfate (Iron) 325 MG tablet 10/27/2012 04:26:03 P M EDT TABLET 325 MG ORAL [facility] Levoxyl Unknown Dose 10/27/2012 04:26:03 PM EDT [facility] Ferrous Sulfate (Iron) 325 MG tablet 10/27/2012 04:26:03 P M EDT TABLET 325 MG ORAL [facility] Levoxyl Unknown Dose 10/27/2012 04:26:03 PM EDT [facility] Levoxyl Unknown Dose 10/27/2012 04:26:03 PM EDT [facility] Cholecalciferol (Vitamin D3) 08/04/2012 01:46:54 PM EST [place] PSULE [id number] UNIT ORAL [facility] Cholecalciferol (Vitamin D3) 08/04/2012 01:46:54 PM EST [place] PSULE [id number] UNIT ORAL [facility] Cholecalciferol (Vitamin D3) 08/04/2012 01:46:54 PM EST [place] PSULE [id number] UNIT ORAL [facility] Cholecalciferol (Vitamin D3) 08/04/2012 01:46:54 PM EST [place] PSULE [id number] UNIT ORAL [facility] Cholecalciferol (Vitamin D3) 08/04/2012 01:46:54 PM EST [place] PSULE 22911 UNIT ORAL [facility] Cholecalciferol (Vitamin D3) 08/04/2012 01:46:54 PM EST [place] PSULE [id number] UNIT ORAL [facility] Cholecalciferol (Vitamin D3) 08/04/2012 01:46:54 PM EST [place] PSULE 09807 UNIT ORAL [facility] Cholecalciferol (Vitamin D3) 08/04/2012 01:46:54 PM EST [place] PSULE 25678 UNIT ORAL [facility] Cholecalciferol (Vitamin D3) 08/04/2012 01:46:54 PM EST [place] PSULE 29103 UNIT ORAL [facility] Cholecalciferol (Vitamin D3) 08/04/2012 01:46:54 PM EST [place] PSULE 19517 UNIT ORAL [facility] Cholecalciferol (Vitamin D3) 08/04/2012 01:46:54 PM EST [place] PSULE 61330 UNIT ORAL [facility] Cholecalciferol (Vitamin D3) 08/04/2012 01:46:54 PM EST [place] PSULE [id number] UNIT ORAL [facility] Cholecalciferol (Vitamin D3) 08/04/2012 01:46:54 PM EST [place] PSULE 28262 UNIT [facility] Cholecalciferol (Vitamin D3) 08/04/2012 01:46:54 PM EST [place] PSULE [id number] UNIT ORAL [facility] potassium chloride SA (K-DUR,KLOR-CON) 20 MEQ tablet 40474-323-09 20 meq Oral aborted Take 20 mEq by mouth daily [facility] Ciprofloxacin 500 MG Oral Tablet ciprofloxacin 500 mg tablet ciprofloxacin 500 mg tablet completed ciprofloxaci n 500 MG Oral Tablet [place] ([facility]) Dicyclomine Hydrochloride 10 MG Oral Cap gray dicyclomine 10 mg capsule TAKE ONE CAPSULE BY MOUTH TWICE A DAY NEEDED FOR ABDOMINAL CRAMPS dicyclomine 10 mg capsule TAKE ONE CAPSULE BY MOUTH TWICE A DAY NEEDED FOR ABDOMINAL CRAMPS completed dicyclomine hy drochloride 10 MG Oral Capsule AZRA ([facility]) Prednisone 50 MG Oral Tablet prednisone 50 mg tablet prednisone 50 mg tablet completed prednisone 50 MG Oral Tablet [place] ([facility]) Furosemide 20 MG Oral Tablet furosemide (LASIX) 20 MG tablet furosemide (LASIX) 20 MG tablet 20 mg Oral aborted Take 20 mg by mouth daily [facility] Amitriptyline Hydrochloride 25 MG Oral Tablet amitript yline 25 mg tablet amitriptyline 25 mg tablet completed amitriptyline hydrochloride 25 MG [facility] Ciprofloxacin 500 MG Oral Tablet ciprofloxacin 500 mg tablet ciprofloxacin 500 mg tablet completed ciprofloxaci n 500 MG Oral Tablet [place] ([facility]) Ciprofloxacin 500 MG Oral Tablet ciprofloxacin 500 mg tablet ciprofloxacin 500 mg tablet completed ciprofloxaci n 500 MG Oral Tablet [facility]) Omeprazole 20 MG Delayed Release Oral Ca psule omeprazole 20 mg capsule,delayed release TAKE ONE CAPSULE BY MOUTH EVERY MORNING omeprazole 20 mg capsule,delayed release TAKE ONE CAPSULE BY MOUTH EVERY MORNING completed omeprazole 20 MG Delayed Release Oral Capsule AZRA ([facility]) doxycycline hyclate 100 MG Oral Capsule doxycycline hy clate 100 mg capsule doxycycline hyclate 100 mg capsule com pleted doxycycline hyclate 100 MG Oral Capsule [facility] ([facility]) Omeprazole 20 MG Delayed Release Oral Ca psule omeprazole 20 mg capsule,delayed release TAKE ONE CAPSULE BY MOUTH EVERY MORNING omeprazole 20 mg capsule,delayed release TAKE ONE CAPSULE BY MOUTH EVERY MORNING completed omeprazole 20 MG Delayed Release Oral Capsule AZRA ([facility]) Phenazopyridine hydrochloride 200 MG Oral Tablet phena zopyridine 200 mg tablet phenazopyridine 200 mg tablet complete d phenazopyridine hydrochloride 200 MG Oral Tablet AZRA ([facility]) Ciprofloxacin 500 MG Oral Tablet ciprofloxacin 500 mg tablet ciprofloxacin 500 mg tablet completed ciprofloxaci n 500 MG Oral Tablet AZRA ([facility]) doxycycline hyclate 100 MG Oral Capsule doxycycline hy clate 100 mg capsule doxycycline hyclate 100 mg capsule com pleted doxycycline hyclate 100 MG Oral Capsule [facility] ([facility]) Furosemide 40 MG Oral Tablet furosemide 40 mg tablet TAKE ONE TABLET BY MOUTH EVERY DAY furosemide 40 mg tablet TAKE ONE TABLET BY MOUTH EVERY DAY completed furosemide 40 MG Oral Tablet AZRA ([facility]) Levothyroxine Sodium 0.05 MG Oral Tablet levothyroxine 50 mcg tablet TAKE ONE TABLET BY MOUTH EVERY DAY levothyroxine 50 mcg tablet TAKE ONE TAB LET BY MOUTH EVERY DAY completed levothyroxin e sodium 0.05 MG Oral Tablet AZRA ([facility]) Amitriptyline Hydrochloride 25 MG Oral Tablet amitript yline 25 mg tablet amitriptyline 25 mg tablet completed amitriptyline hydrochloride 25 MG Oral Tablet AZRA ([facility]) Phenazopyridine hydrochloride 200 MG Oral Tablet phena zopyridine 200 mg tablet phenazopyridine 200 mg tablet complete d phenazopyridine hydrochloride 200 MG Oral Tablet AZRA ([facility]) Amitriptyline Hydrochloride 25 MG Oral Tablet amitript yline 25 mg tablet amitriptyline 25 mg tablet completed amitriptyline hydrochloride 25 MG Oral Tablet AZRA ([facility]) Levothyroxine Sodium 0.05 MG Oral Tablet levothyroxine 50 mcg tablet TAKE ONE TABLET BY MOUTH EVERY DAY levothyroxine 50 mcg tablet TAKE ONE TAB LET BY MOUTH EVERY DAY completed levothyroxin e sodium 0.05 MG Oral Tablet AZRA ([facility]) Prednisone 50 MG Oral Tablet prednisone 50 mg tablet prednisone 50 mg tablet completed prednisone 50 MG Oral Tablet [place] ([facility]) Loperamide Hydrochloride 2 MG Oral Capsu le loperamide 2 mg capsule TAKE ONE CAPSULE BY MOUTH TWICE A DAY NEEDED FOR DIARREA FOR UP TO 10 DAYS loperamide 2 mg capsule TAKE ONE CAPSULE BY MOUTH TWICE A DAY NEEDED FOR DIARREA FOR UP TO 10 DAYS completed loperamide hydrochloride 2 MG Oral Capsule [place] ([facility]) Dexamethasone 0.001 MG/MG / Tobramycin 0 .003 MG/MG Ophthalmic Ointment [Tobradex] TobraDex 0.3 %-0.1 % eye ointment APPLY A SMALL AMOUNT ON EYELID TWO TIMES A DAY DIRECTED TobraDex 0.3 %-0.1 % eye ointment APPLY A SMALL AMOUNT ON EYELID TWO TIMES A DAY DIRECTED completed dexamethasone 0.001 MG/MG / tobramycin 0.003 MG/MG Ophthalmic Ointment [Tobradex] [facility] ([facility]) Loperamide Hydrochloride 2 MG Oral Capsu le loperamide 2 mg capsule TAKE ONE CAPSULE BY MOUTH TWICE A DAY NEEDED FOR DIARREA FOR UP TO 10 DAYS loperamide 2 mg capsule TAKE ONE CAPSULE BY MOUTH TWICE A DAY NEEDED FOR DIARREA FOR UP TO 10 DAYS completed loperamide hydrochloride 2 MG Oral Capsule [facility] ([facility]) Prednisone 20 MG Oral Tablet prednisone 20 mg tablet TAKE THREE TABLETS BY MOUTH EVERY DAY prednisone 20 mg tablet TAKE THREE TABLETS BY MOUTH EVERY DAY completed prednisone 20 MG Ora l Tablet [facility] ([facility]) Omeprazole 20 MG Delayed Release Oral Ca psule omeprazole 20 mg capsule,delayed release TAKE ONE CAPSULE BY MOUTH EVERY MORNING omeprazole 20 mg capsule,delayed release TAKE ONE CAPSULE BY MOUTH EVERY MORNING completed omeprazole 20 MG Delayed Release Oral Capsule [place] ([facility]) doxycycline hyclate 100 MG Oral Capsule doxycycline hy clate 100 mg capsule doxycycline hyclate 100 mg capsule com pleted doxycycline hyclate 100 MG Oral Capsule [facility] ([facility]) Amoxicillin 500 MG Oral Capsule amoxicil hamida 500 mg capsule TAKE ONE CAPSULE BY MOUTH THREE TIMES A DAY amoxicillin 500 mg capsule TAKE ONE CAPS ULE BY MOUTH THREE TIMES A DAY completed amox icillin 500 MG Oral Capsule [facility] ([facility]) doxycycline hyclate 100 MG Oral Capsule doxycycline hy clate 100 mg capsule doxycycline hyclate 100 mg capsule com pleted doxycycline hyclate 100 MG Oral Capsule [facility] ([facility]) Methocarbamol 750 MG Oral Tablet methoca rbamol 750 mg tablet TAKE ONE TABLET BY MOUTH THREE TIMES A DAY methocarbamol 750 mg tablet TAKE ONE TAB LET BY MOUTH THREE TIMES A DAY completed meth ocarbamol 750 MG Oral Tablet [facility] ([facility]) Phenazopyridine hydrochloride 200 MG Oral Tablet phena zopyridine 200 mg tablet phenazopyridine 200 mg tablet complete d phenazopyridine hydrochloride 200 MG Oral Tablet [facility] ([facility]) NITROFURANTOIN, MACROCRYSTALS 25 MG / Ni trofurantoin, Monohydrate 75 MG Oral Capsule nitrofurantoin monohydrate/macrocrystals 100 mg capsule nitrofurantoin monohydrate/macrocrystals 100 mg capsule completed nitrofurantoin, macrocrystals 25 MG / nitrofurantoin, monohydrate 75 MG Oral Capsule [facility] ([facility]) Ondansetron 4 MG Disintegrating Oral Tab let ondansetron 4 mg disintegrating tablet DISSOLVE ONE TABLET ON TONGUE EVERY 6 TO 8 HOURS ondansetron 4 mg disintegrating tablet DISSOLVE ONE TABLET ON TONGUE EVERY 6 TO 8 HOURS completed ondansetron 4 MG Disinteg rating Oral Tablet [facility] ([facility]) NITROFURANTOIN, MACROCRYSTALS 25 MG / Ni trofurantoin, Monohydrate 75 MG Oral Capsule nitrofurantoin monohydrate/macrocrystals 100 mg capsule nitrofurantoin monohydrate/macrocrystals 100 mg capsule completed nitrofurantoin, macrocrystals 25 MG / nitrofurantoin, monohydrate 75 MG Oral Capsule [facility] ([facility]) Dicyclomine Hydrochloride 10 MG Oral Cap gray dicyclomine 10 mg capsule TAKE ONE CAPSULE BY MOUTH TWICE A DAY NEEDED FOR ABDOMINAL CRAMPS dicyclomine 10 mg capsule TAKE ONE CAPSULE BY MOUTH TWICE A DAY NEEDED FOR ABDOMINAL CRAMPS completed dicyclomine hy drochloride 10 MG Oral Capsule [facility] ([facility]) Furosemide 40 MG Oral Tablet furosemide 40 mg tablet TAKE ONE TABLET BY MOUTH EVERY DAY furosemide 40 mg tablet TAKE ONE TABLET BY MOUTH EVERY DAY completed furosemide 40 MG Oral Tablet [place] ([facility]) Amitriptyline Hydrochloride 10 MG Oral T ablet amitriptyline 10 mg tablet Take 1 tablet every day by oral route at bedtime for 30 days. amitriptyline 10 mg tablet Take 1 tablet every day by oral route at bedtime for 30 days. 1 completed amitriptyline hydrochloride 10 MG Oral Tablet [place] ([facility]) Amitriptyline Hydrochloride 25 MG Oral Tablet amitript yline 25 mg tablet amitriptyline 25 mg tablet completed amitriptyline hydrochloride 25 MG Oral Tablet [place] ([facility]) NITROFURANTOIN, MACROCRYSTALS 25 MG / Ni trofurantoin, Monohydrate 75 MG Oral Capsule nitrofurantoin monohydrate/macrocrystals 100 mg capsule nitrofurantoin monohydrate/macrocrystals 100 mg capsule completed nitrofurantoin, macrocrystals 25 MG / nitrofurantoin, monohydrate 75 MG Oral Capsule [place] ([facility]) Cyclobenzaprine hydrochloride 10 MG Oral Tablet cyclobenzaprine 10 mg tablet TAKE ONE TABLET BY MOUTH THREE TIMES A DAY NEEDED FOR MUSCLE SPASMS FOR UP TO 5 DAYS cyclobenzaprine 10 mg tablet TAKE ONE TA BLET BY MOUTH THREE TIMES A DAY NEEDED FOR MUSCLE SPASMS FOR UP TO 5 DAYS completed cyclobenzaprine hydrochloride 10 MG Oral Tablet [facility] ([facility]) Amoxicillin 500 MG Oral Capsule amoxicil hamida 500 mg capsule TAKE ONE CAPSULE BY MOUTH THREE TIMES A DAY amoxicillin 500 mg capsule TAKE ONE CAPS ULE BY MOUTH THREE TIMES A DAY completed amox icillin 500 MG Oral Capsule [place] ([facility]) Dicyclomine Hydrochloride 10 MG Oral Cap gray dicyclomine 10 mg capsule TAKE ONE CAPSULE BY MOUTH TWICE A DAY NEEDED FOR ABDOMINAL CRAMPS dicyclomine 10 mg capsule TAKE ONE CAPSULE BY MOUTH TWICE A DAY NEEDED FOR ABDOMINAL CRAMPS completed dicyclomine hy drochloride 10 MG Oral Capsule [place] ([facility]) Furosemide 40 MG Oral Tablet furosemide 40 mg tablet TAKE ONE TABLET BY MOUTH EVERY DAY furosemide 40 mg tablet TAKE ONE TABLET BY MOUTH EVERY DAY completed furosemide 40 MG Oral Tablet [facility] ([facility]) Prednisone 20 MG Oral Tablet prednisone 20 mg tablet TAKE THREE TABLETS BY MOUTH EVERY DAY prednisone 20 mg tablet TAKE THREE TABLETS BY MOUTH EVERY DAY completed prednisone 20 MG Ora l Tablet [facility] ([facility]) Ciprofloxacin 500 MG Oral Tablet ciprofloxacin 500 mg tablet ciprofloxacin 500 mg tablet completed ciprofloxaci n 500 MG Oral Tablet [facility] ([facility]) Dicyclomine Hydrochloride 10 MG Oral Cap gray dicyclomine 10 mg capsule TAKE ONE CAPSULE BY MOUTH TWICE A DAY NEEDED FOR ABDOMINAL CRAMPS dicyclomine 10 mg capsule TAKE ONE CAPSULE BY MOUTH TWICE A DAY NEEDED FOR ABDOMINAL CRAMPS completed dicyclomine hy drochloride 10 MG Oral Capsule [place] ([facility]) doxycycline hyclate 100 MG Oral Capsule doxycycline hy clate 100 mg capsule doxycycline hyclate 100 mg capsule com pleted doxycycline hyclate 100 MG Oral Capsule [facility] ([facility]) Amitriptyline Hydrochloride 25 MG Oral Tablet amitript yline 25 mg tablet amitriptyline 25 mg tablet completed amitriptyline hydrochloride 25 MG Oral Tablet [facility] ([facility]) Phenazopyridine hydrochloride 200 MG Oral Tablet phena zopyridine 200 mg tablet phenazopyridine 200 mg tablet complete d phenazopyridine hydrochloride 200 MG Oral Tablet [place] ([facility]) Ondansetron 4 MG Oral Tablet ondansetron HCl 4 mg tablet TAKE 2 TABLETS BY MOUTH EVERY 8 HOURS NEEDED FOR NAUSEA FOR UP TO 7 DAYS ondansetron HCl 4 mg tablet TAKE 2 TABLETS BY MOUTH EVERY 8 HOURS NEEDED FOR NAUSEA FOR UP TO 7 DAYS completed ondansetron 4 MG Oral Tablet [place] ([facility]) Omeprazole 20 MG Delayed Release Oral Ca psule omeprazole 20 mg capsule,delayed release TAKE ONE CAPSULE BY MOUTH EVERY MORNING omeprazole 20 mg capsule,delayed release TAKE ONE CAPSULE BY MOUTH EVERY MORNING completed omeprazole 20 MG Delayed Release Oral Capsule [place] ([facility]) Amoxicillin 500 MG Oral Capsule amoxicil hamida 500 mg capsule TAKE ONE CAPSULE BY MOUTH THREE TIMES A DAY amoxicillin 500 mg capsule TAKE ONE CAPS ULE BY MOUTH THREE TIMES A DAY completed amox icillin 500 MG Oral Capsule [place] ([facility]) Omeprazole 20 MG Delayed Release Oral Ca psule omeprazole 20 mg capsule,delayed release TAKE ONE CAPSULE BY MOUTH EVERY MORNING omeprazole 20 mg capsule,delayed release TAKE ONE CAPSULE BY MOUTH EVERY MORNING completed omeprazole 20 MG Delayed Release Oral Capsule [place] ([facility]) Levothyroxine Sodium 0.05 MG Oral Tablet levothyroxine 50 mcg tablet TAKE ONE TABLET BY MOUTH EVERY DAY levothyroxine 50 mcg tablet TAKE ONE TAB LET BY MOUTH EVERY DAY completed levothyroxin e sodium 0.05 MG Oral Tablet [place] ([facility]) Afluria Quad [id number] 60 mcg (15 mcg x 4)/0.5 mL intramuscular susp. [id number] completed Afluria Quad 2 -2020 60 mcg (15 mcg x 4)/0.5 mL intramuscular susp. [facility] ([facility]) pantoprazole 40 MG Delayed Release Oral Tablet pantoprazole 40 mg tablet,delayed release TAKE ONE TABLET BY MOUTH EVERY DAY pantoprazole 40 mg tablet,delayed release TAKE ONE TABLET BY MOUTH EVERY DAY completed pantoprazole 40 MG Delayed Release Oral Tablet [place] ([facility]) pantoprazole 40 MG Delayed Release Oral Tablet pantoprazole 40 mg tablet,delayed release TAKE ONE TABLET BY MOUTH EVERY DAY pantoprazole 40 mg tablet,delayed release TAKE ONE TABLET BY MOUTH EVERY DAY completed pantoprazole 40 MG Delayed Release Oral Tablet [place] ([facility]) Furosemide 40 MG Oral Tablet furosemide 40 mg tablet TAKE ONE TABLET BY MOUTH EVERY DAY furosemide 40 mg tablet TAKE ONE TABLET BY MOUTH EVERY DAY completed furosemide 40 MG Oral Tablet [place] ([facility]) Dexamethasone 1 MG/ML / Tobramycin 3 MG/ ML Ophthalmic Suspension tobramycin 0.3 %-dexamethasone 0.1 % eye drops,suspension INSTILL ONE DROP INTO THE LEFT EYE FOUR TIMES A DAY tobramycin 0.3 %-dexamethasone 0.1 % eye drops,suspension INSTILL ONE DROP INTO THE LEFT EYE FOUR TIMES A DAY completed dexamethasone 1 MG/ML / tobramycin 3 MG/ML Ophthalmic Suspension [place] ([facility]) Levothyroxine Sodium 0.05 MG Oral Tablet levothyroxine 50 mcg tablet TAKE ONE TABLET BY MOUTH EVERY DAY levothyroxine 50 mcg tablet TAKE ONE TAB LET BY MOUTH EVERY DAY completed levothyroxin e sodium 0.05 MG Oral Tablet [facility] ([facility]) NITROFURANTOIN, MACROCRYSTALS 25 MG / Ni trofurantoin, Monohydrate 75 MG Oral Capsule nitrofurantoin monohydrate/macrocrystals 100 mg capsule nitrofurantoin monohydrate/macrocrystals 100 mg capsule completed nitrofurantoin, macrocrystals 25 MG / nitrofurantoin, monohydrate 75 MG Oral Capsule [facility] ([facility]) Methocarbamol 750 MG Oral Tablet methoca rbamol 750 mg tablet TAKE ONE TABLET BY MOUTH THREE TIMES A DAY methocarbamol 750 mg tablet TAKE ONE TAB LET BY MOUTH THREE TIMES A DAY completed meth ocarbamol 750 MG Oral Tablet [facility] ([facility]) Dicyclomine Hydrochloride 10 MG Oral Cap gray dicyclomine 10 mg capsule TAKE ONE CAPSULE BY MOUTH TWICE A DAY NEEDED FOR ABDOMINAL CRAMPS dicyclomine 10 mg capsule TAKE ONE CAPSULE BY MOUTH TWICE A DAY NEEDED FOR ABDOMINAL CRAMPS completed dicyclomine hy drochloride 10 MG Oral Capsule [facility] ([facility]) Dicyclomine Hydrochloride 10 MG Oral Cap gray dicyclomine 10 mg capsule TAKE ONE CAPSULE BY MOUTH TWICE A DAY NEEDED FOR ABDOMINAL CRAMPS dicyclomine 10 mg capsule TAKE ONE CAPSULE BY MOUTH TWICE A DAY NEEDED FOR ABDOMINAL CRAMPS completed dicyclomine hy drochloride 10 MG Oral Capsule [place] ([facility]) Methocarbamol 750 MG Oral Tablet methoca rbamol 750 mg tablet TAKE ONE TABLET BY MOUTH THREE TIMES A DAY methocarbamol 750 mg tablet TAKE ONE TAB LET BY MOUTH THREE TIMES A DAY completed meth ocarbamol 750 MG Oral Tablet [facility] ([facility]) Furosemide 40 MG Oral Tablet furosemide 40 mg tablet TAKE ONE TABLET BY MOUTH EVERY DAY furosemide 40 mg tablet TAKE ONE TABLET BY MOUTH EVERY DAY completed furosemide 40 MG Oral Tablet [place] ([facility]) doxycycline hyclate 100 MG Oral Capsule doxycycline hy clate 100 mg capsule doxycycline hyclate 100 mg capsule com pleted doxycycline hyclate 100 MG Oral Capsule [facility] ([facility]) Phenazopyridine hydrochloride 200 MG Oral Tablet phena zopyridine 200 mg tablet phenazopyridine 200 mg tablet complete d phenazopyridine hydrochloride 200 MG Oral Tablet [facility] ([facility]) Levothyroxine Sodium 0.05 MG Oral Tablet levothyroxine 50 mcg tablet TAKE ONE TABLET BY MOUTH EVERY DAY levothyroxine 50 mcg tablet TAKE ONE TAB LET BY MOUTH EVERY DAY completed levothyroxin e sodium 0.05 MG Oral Tablet [place] ([facility]) Amoxicillin 500 MG Oral Capsule amoxicil hamida 500 mg capsule TAKE ONE CAPSULE BY MOUTH THREE TIMES A DAY amoxicillin 500 mg capsule TAKE ONE CAPS ULE BY MOUTH THREE TIMES A DAY completed amox icillin 500 MG Oral Capsule [place] ([facility]) Ondansetron 4 MG Disintegrating Oral Tab let ondansetron 4 mg disintegrating tablet DISSOLVE ONE TABLET ON TONGUE EVERY 6 TO 8 HOURS ondansetron 4 mg disintegrating tablet DISSOLVE ONE TABLET ON TONGUE EVERY 6 TO 8 HOURS completed ondansetron 4 MG Disinteg rating Oral Tablet [place] ([facility]) Dexamethasone 0.001 MG/MG / Tobramycin 0 .003 MG/MG Ophthalmic Ointment [Tobradex] TobraDex 0.3 %-0.1 % eye ointment APPLY A SMALL AMOUNT ON EYELID TWO TIMES A DAY DIRECTED TobraDex 0.3 %-0.1 % eye ointment APPLY A SMALL AMOUNT ON EYELID TWO TIMES A DAY DIRECTED completed dexamethasone 0.001 MG/MG / tobramycin 0.003 MG/MG Ophthalmic Ointment [Tobradex] [place] ([facility]) Amoxicillin 875 MG / Clavulanate 125 MG Oral Tablet amoxicillin 875 mg-potassium clavulanate 125 mg tablet TAKE ONE TABLET BY MOUTH TWO TIMES PER DAY FOR 10 DAYS amoxicillin 875 mg-potassium clavulanate 125 mg tablet TAKE ONE TABLET BY MOUTH TWO TIMES PER DAY FOR 10 DAYS co mpleted amoxicillin 875 MG / clavulanate 125 MG Oral Tablet [facility] ([facility]) NITROFURANTOIN, MACROCRYSTALS 25 MG / Ni trofurantoin, Monohydrate 75 MG Oral Capsule nitrofurantoin monohydrate/macrocrystals 100 mg capsule nitrofurantoin monohydrate/macrocrystals 100 mg capsule completed nitrofurantoin, macrocrystals 25 MG / nitrofurantoin, monohydrate 75 MG Oral Capsule [facility] ([facility]) Loperamide Hydrochloride 2 MG Oral Capsu le loperamide 2 mg capsule TAKE ONE CAPSULE BY MOUTH TWICE A DAY NEEDED FOR DIARREA FOR UP TO 10 DAYS loperamide 2 mg capsule TAKE ONE CAPSULE BY MOUTH TWICE A DAY NEEDED FOR DIARREA FOR UP TO 10 DAYS completed loperamide hydrochloride 2 MG Oral Capsule [place] ([facility]) Amoxicillin 875 MG / Clavulanate 125 MG Oral Tablet amoxicillin 875 mg-potassium clavulanate 125 mg tablet TAKE ONE TABLET BY MOUTH TWO TIMES PER DAY FOR 10 DAYS amoxicillin 875 mg-potassium clavulanate 125 mg tablet TAKE ONE TABLET BY MOUTH TWO TIMES PER DAY FOR 10 DAYS co mpleted amoxicillin 875 MG / clavulanate 125 MG Oral Tablet [place] ([facility]) Levothyroxine Sodium 0.05 MG Oral Tablet levothyroxine 50 mcg tablet TAKE ONE TABLET BY MOUTH EVERY DAY levothyroxine 50 mcg tablet TAKE ONE TAB LET BY MOUTH EVERY DAY completed levothyroxin e sodium 0.05 MG Oral Tablet [place] ([facility]) Ciprofloxacin 500 MG Oral Tablet ciprofloxacin 500 mg tablet ciprofloxacin 500 mg tablet completed ciprofloxaci n 500 MG Oral Tablet [place] ([facility]) Ciprofloxacin 500 MG Oral Tablet ciprofloxacin 500 mg tablet ciprofloxacin 500 mg tablet completed ciprofloxaci n 500 MG Oral Tablet [place] ([facility]) Omeprazole 20 MG Delayed Release Oral Ca psule omeprazole 20 mg capsule,delayed release TAKE ONE CAPSULE BY MOUTH EVERY MORNING omeprazole 20 mg capsule,delayed release TAKE ONE CAPSULE BY MOUTH EVERY MORNING completed omeprazole 20 MG Delayed Release Oral Capsule [place] ([facility]) pantoprazole 40 MG Delayed Release Oral Tablet pantoprazole 40 mg tablet,delayed release TAKE ONE TABLET BY MOUTH EVERY DAY pantoprazole 40 mg tablet,delayed release TAKE ONE TABLET BY MOUTH EVERY DAY completed pantoprazole 40 MG Delayed Release Oral Tablet [place] ([facility]) Phenazopyridine hydrochloride 200 MG Oral Tablet phena zopyridine 200 mg tablet phenazopyridine 200 mg tablet complete d phenazopyridine hydrochloride 200 MG Oral Tablet [place] ([facility]) Dexamethasone 0.001 MG/MG / Tobramycin 0 .003 MG/MG Ophthalmic Ointment [Tobradex] TobraDex 0.3 %-0.1 % eye ointment APPLY A SMALL AMOUNT ON EYELID TWO TIMES A DAY DIRECTED TobraDex 0.3 %-0.1 % eye ointment APPLY A SMALL AMOUNT ON EYELID TWO TIMES A DAY DIRECTED completed dexamethasone 0.001 MG/MG / tobramycin 0.003 MG/MG Ophthalmic Ointment [Tobradex] [place] ([facility]) Omeprazole 20 MG Delayed Release Oral Ca psule omeprazole 20 mg capsule,delayed release TAKE ONE CAPSULE BY MOUTH EVERY MORNING omeprazole 20 mg capsule,delayed release TAKE ONE CAPSULE BY MOUTH EVERY MORNING completed omeprazole 20 MG Delayed Release Oral Capsule [place] ([facility]) Phenazopyridine hydrochloride 200 MG Oral Tablet phena zopyridine 200 mg tablet phenazopyridine 200 mg tablet complete d phenazopyridine hydrochloride 200 MG Oral Tablet [place] ([facility]) pantoprazole 40 MG Delayed Release Oral Tablet pantoprazole 40 mg tablet,delayed release TAKE ONE TABLET BY MOUTH EVERY DAY pantoprazole 40 mg tablet,delayed release TAKE ONE TABLET BY MOUTH EVERY DAY completed pantoprazole 40 MG Delayed Release Oral Tablet [place] ([facility]) Loperamide Hydrochloride 2 MG Oral Capsu le loperamide 2 mg capsule TAKE ONE CAPSULE BY MOUTH TWICE A DAY NEEDED FOR DIARREA FOR UP TO 10 DAYS loperamide 2 mg capsule TAKE ONE CAPSULE BY MOUTH TWICE A DAY NEEDED FOR DIARREA FOR UP TO 10 DAYS completed loperamide hydrochloride 2 MG Oral Capsule [place] ([facility]) doxycycline hyclate 100 MG Oral Capsule doxycycline hy clate 100 mg capsule doxycycline hyclate 100 mg capsule com pleted doxycycline hyclate 100 MG Oral Capsule [place] ([facility]) Amoxicillin 500 MG Oral Capsule amoxicil hamida 500 mg capsule TAKE ONE CAPSULE BY MOUTH THREE TIMES A DAY amoxicillin 500 mg capsule TAKE ONE CAPS ULE BY MOUTH THREE TIMES A DAY completed amox icillin 500 MG Oral Capsule [place] ([facility]) Loperamide Hydrochloride 2 MG Oral Capsu le loperamide 2 mg capsule TAKE ONE CAPSULE BY MOUTH TWICE A DAY NEEDED FOR DIARREA FOR UP TO 10 DAYS loperamide 2 mg capsule TAKE ONE CAPSULE BY MOUTH TWICE A DAY NEEDED FOR DIARREA FOR UP TO 10 DAYS completed loperamide hydrochloride 2 MG Oral Capsule [place] ([facility]) Sulfamethoxazole 800 MG / Trimethoprim 1 60 MG Oral Tablet sulfamethoxazole 800 mg-trimethoprim 160 mg tablet sulfamethoxazole 800 mg-trimethoprim 160 mg tablet completed sulfame thoxazole 800 MG / trimethoprim 160 MG Oral Tablet [facility] ([facility]) Dexamethasone 0.001 MG/MG / Tobramycin 0 .003 MG/MG Ophthalmic Ointment [Tobradex] TobraDex 0.3 %-0.1 % eye ointment APPLY A SMALL AMOUNT ON EYELID TWO TIMES A DAY DIRECTED TobraDex 0.3 %-0.1 % eye ointment APPLY A SMALL AMOUNT ON EYELID TWO TIMES A DAY DIRECTED completed dexamethasone 0.001 MG/MG / tobramycin 0.003 MG/MG Ophthalmic Ointment [Tobradex] [place] ([facility]) NITROFURANTOIN, MACROCRYSTALS 25 MG / Ni trofurantoin, Monohydrate 75 MG Oral Capsule nitrofurantoin monohydrate/macrocrystals 100 mg capsule nitrofurantoin monohydrate/macrocrystals 100 mg capsule completed nitrofurantoin, macrocrystals 25 MG / nitrofurantoin, monohydrate 75 MG Oral Capsule [facility] ([facility]) Afluria Quad 60 mcg (15 mcg x 4)/0.5 mL intramuscular susp. [id number] completed influenza A vi quoc A/[place] (H3N2) antigen 0.03 MG/ML / influenza A virus A/ (H1N1) antigen 0.03 MG/ML / influenza B virus B/[facility] antigen 0.03 MG/ML / influenza B virus B/[place] antigen 0.03 MG/ML Injectable Suspension [Afluria Quadrivalent ] [facility] ([facility]) Loperamide Hydrochloride 2 MG Oral Capsu le loperamide 2 mg capsule TAKE ONE CAPSULE BY MOUTH TWICE A DAY NEEDED FOR DIARREA FOR UP TO 10 DAYS loperamide 2 mg capsule TAKE ONE CAPSULE BY MOUTH TWICE A DAY NEEDED FOR DIARREA FOR UP TO 10 DAYS completed loperamide hydrochloride 2 MG Oral Capsule [place] ([facility]) Levothyroxine Sodium 0.05 MG Oral Tablet levothyroxine 50 mcg tablet TAKE ONE TABLET BY MOUTH EVERY DAY levothyroxine 50 mcg tablet TAKE ONE TAB LET BY MOUTH EVERY DAY completed levothyroxin e sodium 0.05 MG Oral Tablet [facility] ([facility]) Amitriptyline Hydrochloride 25 MG Oral Tablet amitript yline 25 mg tablet amitriptyline 25 mg tablet completed amitriptyline hydrochloride 25 MG Oral Tablet [place] ([facility]) pantoprazole 40 MG Delayed Release Oral Tablet pantoprazole 40 mg tablet,delayed release TAKE ONE TABLET BY MOUTH EVERY DAY pantoprazole 40 mg tablet,delayed release TAKE ONE TABLET BY MOUTH EVERY DAY completed pantoprazole 40 MG Delayed Release Oral Tablet [facility] ([facility]) Ondansetron 4 MG Oral Tablet ondansetron HCl 4 mg tablet TAKE 2 TABLETS BY MOUTH EVERY 8 HOURS NEEDED FOR NAUSEA FOR UP TO 7 DAYS ondansetron HCl 4 mg tablet TAKE 2 TABLETS BY MOUTH EVERY 8 HOURS NEEDED FOR NAUSEA FOR UP TO 7 DAYS completed ondansetron 4 MG Oral Tablet [place] ([facility]) Ondansetron 4 MG Disintegrating Oral Tab let ondansetron 4 mg disintegrating tablet DISSOLVE ONE TABLET ON TONGUE EVERY 6 TO 8 HOURS ondansetron 4 mg disintegrating tablet DISSOLVE ONE TABLET ON TONGUE EVERY 6 TO 8 HOURS completed ondansetron 4 MG Disinteg rating Oral Tablet [place] ([facility]) Amoxicillin 875 MG / Clavulanate 125 MG Oral Tablet amoxicillin 875 mg-potassium clavulanate 125 mg tablet TAKE ONE TABLET BY MOUTH TWO TIMES PER DAY FOR 10 DAYS amoxicillin 875 mg-potassium clavulanate 125 mg tablet TAKE ONE TABLET BY MOUTH TWO TIMES PER DAY FOR 10 DAYS complete d amoxicillin 875 MG / clavulanate 125 MG Oral Tablet [place] ([facility]) Amoxicillin 500 MG Oral Capsule amoxicil hamida 500 mg capsule TAKE ONE CAPSULE BY MOUTH THREE TIMES A DAY amoxicillin 500 mg capsule TAKE ONE CAPS ULE BY MOUTH THREE TIMES A DAY completed amox icillin 500 MG Oral Capsule [facility] ([facility]) Ciprofloxacin 500 MG Oral Tablet ciprofloxacin 500 mg tablet ciprofloxacin 500 mg tablet completed ciprofloxaci n 500 MG Oral Tablet [place] ([facility]) Ondansetron 4 MG Disintegrating Oral Tab let ondansetron 4 mg disintegrating tablet DISSOLVE ONE TABLET ON TONGUE EVERY 6 TO 8 HOURS ondansetron 4 mg disintegrating tablet DISSOLVE ONE TABLET ON TONGUE EVERY 6 TO 8 HOURS completed ondansetron 4 MG Disinteg rating Oral Tablet [facility] ([facility]) Ondansetron 4 MG Disintegrating Oral Tab let ondansetron 4 mg disintegrating tablet DISSOLVE ONE TABLET ON TONGUE EVERY 6 TO 8 HOURS ondansetron 4 mg disintegrating tablet DISSOLVE ONE TABLET ON TONGUE EVERY 6 TO 8 HOURS completed ondansetron 4 MG Disinteg rating Oral Tablet [place] ([facility]) POLYETHYLENE GLYCOL 3350 142 MG/ML Oral Solution polyethylene glycol 3350 17 gram/dose oral powder polyethylene glycol 3350 17 gram/dose oral powder completed polyethylene glycol 3350 92586 MG Powder for Oral Solution [facility] ([facility]) Dicyclomine Hydrochloride 10 MG Oral Cap gray dicyclomine 10 mg capsule TAKE ONE CAPSULE BY MOUTH TWICE A DAY NEEDED FOR ABDOMINAL CRAMPS dicyclomine 10 mg capsule TAKE ONE CAPSULE BY MOUTH TWICE A DAY NEEDED FOR ABDOMINAL CRAMPS completed dicyclomine hy drochloride 10 MG Oral Capsule [place] ([facility]) Omeprazole 20 MG Delayed Release Oral Ca psule omeprazole 20 mg capsule,delayed release TAKE ONE CAPSULE BY MOUTH EVERY MORNING omeprazole 20 mg capsule,delayed release TAKE ONE CAPSULE BY MOUTH EVERY MORNING completed omeprazole 20 MG Delayed Release Oral Capsule [place] ([facility]) pantoprazole 40 MG Delayed Release Oral Tablet pantoprazole 40 mg tablet,delayed release TAKE ONE TABLET BY MOUTH EVERY DAY pantoprazole 40 mg tablet,delayed release TAKE ONE TABLET BY MOUTH EVERY DAY completed pantoprazole 40 MG Delayed Release Oral Tablet [place] ([facility]) Furosemide 40 MG Oral Tablet furosemide 40 mg tablet TAKE ONE TABLET BY MOUTH EVERY DAY furosemide 40 mg tablet TAKE ONE TABLET BY MOUTH EVERY DAY completed furosemide 40 MG Oral Tablet [facility] ([facility]) Ondansetron 4 MG Disintegrating Oral Tab let ondansetron 4 mg disintegrating tablet DISSOLVE ONE TABLET ON TONGUE EVERY 6 TO 8 HOURS ondansetron 4 mg disintegrating tablet DISSOLVE ONE TABLET ON TONGUE EVERY 6 TO 8 HOURS completed ondansetron 4 MG Disinteg rating Oral Tablet [facility] ([facility]) Amitriptyline Hydrochloride 10 MG Oral T ablet amitriptyline 10 mg tablet Take 1 tablet every day by oral route at bedtime for 30 days. amitriptyline 10 mg tablet Take 1 tablet every day by oral route at bedtime for 30 days. 1 completed amitriptyline hydrochloride 10 MG Oral Tablet [facility] ([facility]) Furosemide 40 MG Oral Tablet furosemide 40 mg tablet TAKE ONE TABLET BY MOUTH EVERY DAY furosemide 40 mg tablet TAKE ONE TABLET BY MOUTH EVERY DAY completed furosemide 40 MG Oral Tablet [facility] ([facility]) Amoxicillin 500 MG Oral Capsule amoxicil hamida 500 mg capsule TAKE ONE CAPSULE BY MOUTH THREE TIMES A DAY amoxicillin 500 mg capsule TAKE ONE CAPS ULE BY MOUTH THREE TIMES A DAY completed amox icillin 500 MG Oral Capsule [place] ([facility]) Dexamethasone 1 MG/ML / Tobramycin 3 MG/ ML Ophthalmic Suspension Tobramycin- Dexamethasone 0.3-0.1 % Ophthalmic Suspension (TOBRADEX) Tobramycin- Dexamethasone 0.3-0.1 % Ophthalmic Suspension (TOBRADEX) aborted tobramycin 0.3 %-dexamethasone 0.1 % eye drops,[facility] Levothyroxine Sodium 0.05 MG Oral Tablet levothyroxine 50 mcg tablet TAKE ONE TABLET BY MOUTH EVERY DAY levothyroxine 50 mcg tablet TAKE ONE TAB LET BY MOUTH EVERY DAY completed levothyroxin e sodium 0.05 MG Oral Tablet [place] ([facility]) Dexamethasone 0.001 MG/MG / Tobramycin 0 .003 MG/MG Ophthalmic Ointment [Tobradex] TobraDex 0.3 %-0.1 % eye ointment APPLY A SMALL AMOUNT ON EYELID TWO TIMES A DAY DIRECTED TobraDex 0.3 %-0.1 % eye ointment APPLY A SMALL AMOUNT ON EYELID TWO TIMES A DAY DIRECTED completed dexamethasone 0.001 MG/MG / tobramycin 0.003 MG/MG Ophthalmic Ointment [Tobradex] [place] ([facility]) Levothyroxine Sodium 0.05 MG Oral Tablet levothyroxine 50 mcg tablet TAKE ONE TABLET BY MOUTH EVERY DAY levothyroxine 50 mcg tablet TAKE ONE TAB LET BY MOUTH EVERY DAY completed levothyroxin e sodium 0.05 MG Oral Tablet [place] ([facility]) Prednisone 20 MG Oral Tablet prednisone 20 mg tablet TAKE THREE TABLETS BY MOUTH EVERY DAY prednisone 20 mg tablet TAKE THREE TABLETS BY MOUTH EVERY DAY completed prednisone 20 MG Ora l Tablet [facility]) Amoxicillin 500 MG Oral Capsule amoxicil hamida 500 mg capsule TAKE ONE CAPSULE BY MOUTH THREE TIMES A DAY amoxicillin 500 mg capsule TAKE ONE CAPS ULE BY MOUTH THREE TIMES A DAY completed amox icillin 500 MG Oral Capsule [place] ([facility]) Dexamethasone 1 MG/ML / Tobramycin 3 MG/ ML Ophthalmic Suspension tobramycin 0.3 %-dexamethasone 0.1 % eye drops,suspension INSTILL ONE DROP INTO THE LEFT EYE FOUR TIMES A DAY tobramycin 0.3 %-dexamethasone 0.1 % eye drops,suspension INSTILL ONE DROP INTO THE LEFT EYE FOUR TIMES A DAY completed dexamethasone 1 MG/ML / tobramycin 3 MG/ML Ophthalmic Suspension [place] ([facility]) NITROFURANTOIN, MACROCRYSTALS 25 MG / Ni trofurantoin, Monohydrate 75 MG Oral Capsule nitrofurantoin monohydrate/macrocrystals 100 mg capsule nitrofurantoin monohydrate/macrocrystals 100 mg capsule completed nitrofurantoin, macrocrystals 25 MG / nitrofurantoin, monohydrate 75 MG Oral Capsule [place] ([facility]) Dexamethasone 0.001 MG/MG / Tobramycin 0 .003 MG/MG Ophthalmic Ointment [Tobradex] TobraDex 0.3 %-0.1 % eye ointment APPLY A SMALL AMOUNT ON EYELID TWO TIMES A DAY DIRECTED TobraDex 0.3 %-0.1 % eye ointment APPLY A SMALL AMOUNT ON EYELID TWO TIMES A DAY DIRECTED completed dexamethasone 0.001 MG/MG / tobramycin 0.003 MG/MG Ophthalmic Ointment [Tobradex] [place] ([facility]) Methocarbamol 750 MG Oral Tablet methoca rbamol 750 mg tablet TAKE ONE TABLET BY MOUTH THREE TIMES A DAY methocarbamol 750 mg tablet TAKE ONE TAB LET BY MOUTH THREE TIMES A DAY completed meth ocarbamol 750 MG Oral Tablet [place] ([facility]) doxycycline hyclate 100 MG Oral Capsule doxycycline hy clate 100 mg capsule doxycycline hyclate 100 mg capsule com pleted doxycycline hyclate 100 MG Oral Capsule [facility]) Cyclobenzaprine hydrochloride 10 MG Oral Tablet cyclobenzaprine 10 mg tablet TAKE ONE TABLET BY MOUTH THREE TIMES A DAY NEEDED FOR MUSCLE SPASMS FOR UP TO 5 DAYS cyclobenzaprine 10 mg tablet TAKE ONE TA BLET BY MOUTH THREE TIMES A DAY NEEDED FOR MUSCLE SPASMS FOR UP TO 5 DAYS completed cyclobenzaprine hydrochloride 10 MG Oral Tablet [facility] ([facility]) Dicyclomine Hydrochloride 10 MG Oral Cap gray dicyclomine 10 mg capsule TAKE ONE CAPSULE BY MOUTH TWICE A DAY NEEDED FOR ABDOMINAL CRAMPS dicyclomine 10 mg capsule TAKE ONE CAPSULE BY MOUTH TWICE A DAY NEEDED FOR ABDOMINAL CRAMPS completed dicyclomine hy drochloride 10 MG Oral Capsule [place] ([facility]) pantoprazole 40 MG Delayed Release Oral Tablet pantoprazole 40 mg tablet,delayed release TAKE ONE TABLET BY MOUTH EVERY DAY pantoprazole 40 mg tablet,delayed release TAKE ONE TABLET BY MOUTH EVERY DAY completed pantoprazole 40 MG Delayed Release Oral Tablet [place] ([facility]) Amitriptyline Hydrochloride 25 MG Oral Tablet amitript yline 25 mg tablet amitriptyline 25 mg tablet completed amitriptyline hydrochloride 25 MG Oral Tablet [place] ([facility]) Dexamethasone 0.001 MG/MG / Tobramycin 0 .003 MG/MG Ophthalmic Ointment [Tobradex] TobraDex 0.3 %-0.1 % eye ointment APPLY A SMALL AMOUNT ON EYELID TWO TIMES A DAY DIRECTED TobraDex 0.3 %-0.1 % eye ointment APPLY A SMALL AMOUNT ON EYELID TWO TIMES A DAY DIRECTED completed dexamethasone 0.001 MG/MG / tobramycin 0.003 MG/MG Ophthalmic Ointment [Tobradex] [place] ([facility]) Amitriptyline Hydrochloride 25 MG Oral Tablet amitript yline 25 mg tablet amitriptyline 25 mg tablet completed amitriptyline hydrochloride 25 MG Oral Tablet [place] ([facility]) Dicyclomine Hydrochloride 10 MG Oral Cap gray dicyclomine 10 mg capsule TAKE ONE CAPSULE BY MOUTH TWICE A DAY NEEDED FOR ABDOMINAL CRAMPS dicyclomine 10 mg capsule TAKE ONE CAPSULE BY MOUTH TWICE A DAY NEEDED FOR ABDOMINAL CRAMPS completed dicyclomine hy drochloride 10 MG Oral Capsule [place] ([facility]) Amoxicillin 500 MG Oral Capsule amoxicil hamida 500 mg capsule TAKE ONE CAPSULE BY MOUTH THREE TIMES A DAY amoxicillin 500 mg capsule TAKE ONE CAPS ULE BY MOUTH THREE TIMES A DAY completed amox icillin 500 MG Oral Capsule [place] ([facility]) Ondansetron 4 MG Disintegrating Oral Tab let ondansetron 4 mg disintegrating tablet DISSOLVE ONE TABLET ON TONGUE EVERY 6 TO 8 HOURS ondansetron 4 mg disintegrating tablet DISSOLVE ONE TABLET ON TONGUE EVERY 6 TO 8 HOURS completed ondansetron 4 MG Disinteg rating Oral Tablet [facility] ([facility]) Loperamide Hydrochloride 2 MG Oral Capsu le loperamide 2 mg capsule TAKE ONE CAPSULE BY MOUTH TWICE A DAY NEEDED FOR DIARREA FOR UP TO 10 DAYS loperamide 2 mg capsule TAKE ONE CAPSULE BY MOUTH TWICE A DAY NEEDED FOR DIARREA FOR UP TO 10 DAYS completed loperamide hydrochloride 2 MG Oral Capsule [facility] ([facility]) NITROFURANTOIN, MACROCRYSTALS 25 MG / Ni trofurantoin, Monohydrate 75 MG Oral Capsule nitrofurantoin monohydrate/macrocrystals 100 mg capsule nitrofurantoin monohydrate/macrocrystals 100 mg capsule completed nitrofurantoin, macrocrystals 25 MG / nitrofurantoin, monohydrate 75 MG Oral Capsule [place] ([facility]) Cyclobenzaprine hydrochloride 10 MG Oral Tablet cyclobenzaprine 10 mg tablet TAKE ONE TABLET BY MOUTH THREE TIMES A DAY NEEDED FOR MUSCLE SPASMS FOR UP TO 5 DAYS cyclobenzaprine 10 mg tablet TAKE ONE TA BLET BY MOUTH THREE TIMES A DAY NEEDED FOR MUSCLE SPASMS FOR UP TO 5 DAYS completed cyclobenzaprine hydrochloride 10 MG Oral Tablet [facility] ([facility]) Cyclobenzaprine hydrochloride 10 MG Oral Tablet cyclobenzaprine 10 mg tablet TAKE ONE TABLET BY MOUTH THREE TIMES A DAY NEEDED FOR MUSCLE SPASMS FOR UP TO 5 DAYS cyclobenzaprine 10 mg tablet TAKE ONE TA BLET BY MOUTH THREE TIMES A DAY NEEDED FOR MUSCLE SPASMS FOR UP TO 5 DAYS completed cyclobenzaprine hydrochloride 10 MG Oral Tablet [facility] ([facility]) Ondansetron 8 MG Oral Tablet ondansetron HCl 8 mg tabl et ondansetron HCl 8 mg tablet completed ondansetron 8 M G Oral Tablet [facility] ([facility]) Prednisone 50 MG Oral Tablet prednisone 50 mg tablet prednisone 50 mg tablet completed prednisone 50 MG Oral Tablet [place] ([facility]) Furosemide 40 MG Oral Tablet furosemide 40 mg tablet TAKE ONE TABLET BY MOUTH EVERY DAY furosemide 40 mg tablet TAKE ONE TABLET BY MOUTH EVERY DAY completed furosemide 40 MG Oral Tablet [facility] ([facility]) Omeprazole 20 MG Delayed Release Oral Ca psule omeprazole 20 mg capsule,delayed release TAKE ONE CAPSULE BY MOUTH EVERY MORNING omeprazole 20 mg capsule,delayed release TAKE ONE CAPSULE BY MOUTH EVERY MORNING completed omeprazole 20 MG Delayed Release Oral Capsule [place] ([facility]) Prednisone 50 MG Oral Tablet prednisone 50 mg tablet prednisone 50 mg tablet completed prednisone 50 MG Oral Tablet [place] ([facility]) Furosemide 40 MG Oral Tablet furosemide 40 mg tablet TAKE ONE TABLET BY MOUTH EVERY DAY furosemide 40 mg tablet TAKE ONE TABLET BY MOUTH EVERY DAY completed furosemide 40 MG Oral Tablet [place] ([facility]) pantoprazole 40 MG Delayed Release Oral Tablet pantoprazole 40 mg tablet,delayed release TAKE ONE TABLET BY MOUTH EVERY DAY pantoprazole 40 mg tablet,delayed release TAKE ONE TABLET BY MOUTH EVERY DAY completed pantoprazole 40 MG Delayed Release Oral Tablet [place] ([facility]) Amoxicillin 875 MG / Clavulanate 125 MG Oral Tablet amoxicillin 875 mg-potassium clavulanate 125 mg tablet TAKE ONE TABLET BY MOUTH TWO TIMES PER DAY FOR 10 DAYS amoxicillin 875 mg-potassium clavulanate 125 mg tablet TAKE ONE TABLET BY MOUTH TWO TIMES PER DAY FOR 10 DAYS co mpleted amoxicillin 875 MG / clavulanate 125 MG Oral Tablet [place] ([facility]) Ondansetron 4 MG Disintegrating Oral Tab let ondansetron 4 mg disintegrating tablet DISSOLVE ONE TABLET ON TONGUE EVERY 6 TO 8 HOURS ondansetron 4 mg disintegrating tablet DISSOLVE ONE TABLET ON TONGUE EVERY 6 TO 8 HOURS completed ondansetron 4 MG Disinteg rating Oral Tablet [place] ([facility]) Prednisone 20 MG Oral Tablet prednisone 20 mg tablet TAKE THREE TABLETS BY MOUTH EVERY DAY prednisone 20 mg tablet TAKE THREE TABLETS BY MOUTH EVERY DAY completed prednisone 20 MG Ora l Tablet [place] ([facility]) Loperamide Hydrochloride 2 MG Oral Capsu le loperamide 2 mg capsule TAKE ONE CAPSULE BY MOUTH TWICE A DAY NEEDED FOR DIARREA FOR UP TO 10 DAYS loperamide 2 mg capsule TAKE ONE CAPSULE BY MOUTH TWICE A DAY NEEDED FOR DIARREA FOR UP TO 10 DAYS completed loperamide hydrochloride 2 MG Oral Capsule [place] ([facility]) Ondansetron 4 MG Disintegrating Oral Tab let ondansetron 4 mg disintegrating tablet DISSOLVE ONE TABLET ON TONGUE EVERY 6 TO 8 HOURS ondansetron 4 mg disintegrating tablet DISSOLVE ONE TABLET ON TONGUE EVERY 6 TO 8 HOURS completed ondansetron 4 MG Disinteg rating Oral Tablet [facility] ([facility]) Phenazopyridine hydrochloride 200 MG Oral Tablet phena zopyridine 200 mg tablet phenazopyridine 200 mg tablet complete d phenazopyridine hydrochloride 200 MG Oral Tablet [facility] ([facility]) Dexamethasone 0.001 MG/MG / Tobramycin 0 .003 MG/MG Ophthalmic Ointment [Tobradex] TobraDex 0.3 %-0.1 % eye ointment APPLY A SMALL AMOUNT ON EYELID TWO TIMES A DAY DIRECTED TobraDex 0.3 %-0.1 % eye ointment APPLY A SMALL AMOUNT ON EYELID TWO TIMES A DAY DIRECTED completed dexamethasone 0.001 MG/MG / tobramycin 0.003 MG/MG Ophthalmic Ointment [Tobradex] [place] ([facility]) Phenazopyridine hydrochloride 200 MG Oral Tablet phena zopyridine 200 mg tablet phenazopyridine 200 mg tablet complete d phenazopyridine hydrochloride 200 MG Oral Tablet [facility] ([facility]) Amitriptyline Hydrochloride 25 MG Oral Tablet amitript yline 25 mg tablet amitriptyline 25 mg tablet completed amitriptyline hydrochloride 25 MG Oral Tablet [facility] ([facility]) Loperamide Hydrochloride 2 MG Oral Capsu le loperamide 2 mg capsule TAKE ONE CAPSULE BY MOUTH TWICE A DAY NEEDED FOR DIARREA FOR UP TO 10 DAYS loperamide 2 mg capsule TAKE ONE CAPSULE BY MOUTH TWICE A DAY NEEDED FOR DIARREA FOR UP TO 10 DAYS completed loperamide hydrochloride 2 MG Oral Capsule [facility] ([facility]) doxycycline hyclate 100 MG Oral Capsule doxycycline hy clate 100 mg capsule doxycycline hyclate 100 mg capsule com pleted doxycycline hyclate 100 MG Oral Capsule [facility] ([facility]) pantoprazole 40 MG Delayed Release Oral Tablet pantoprazole 40 mg tablet,delayed release TAKE ONE TABLET BY MOUTH EVERY DAY pantoprazole 40 mg tablet,delayed release TAKE ONE TABLET BY MOUTH EVERY DAY completed pantoprazole 40 MG Delayed Release Oral Tablet [facility] ([facility]) Dexamethasone 0.001 MG/MG / Tobramycin 0 .003 MG/MG Ophthalmic Ointment [Tobradex] TobraDex 0.3 %-0.1 % eye ointment APPLY A SMALL AMOUNT ON EYELID TWO TIMES A DAY DIRECTED TobraDex 0.3 %-0.1 % eye ointment APPLY A SMALL AMOUNT ON EYELID TWO TIMES A DAY DIRECTED completed dexamethasone 0.001 MG/MG / tobramycin 0.003 MG/MG Ophthalmic Ointment [Tobradex] [place] ([facility]) NITROFURANTOIN, MACROCRYSTALS 25 MG / Ni trofurantoin, Monohydrate 75 MG Oral Capsule nitrofurantoin monohydrate/macrocrystals 100 mg capsule nitrofurantoin monohydrate/macrocrystals 100 mg capsule completed nitrofurantoin, macrocrystals 25 MG / nitrofurantoin, monohydrate 75 MG Oral Capsule [place] ([facility]) POLYETHYLENE GLYCOL 3350 142 MG/ML Oral Solution polyethylene glycol 3350 17 gram/dose oral powder polyethylene glycol 3350 17 gram/dose oral powder completed polyethylene glycol 3350 05046 MG Powder for Oral Solution [place] ([facility]) Amoxicillin 500 MG Oral Capsule amoxicil hamida 500 mg capsule TAKE ONE CAPSULE BY MOUTH THREE TIMES A DAY amoxicillin 500 mg capsule TAKE ONE CAPS ULE BY MOUTH THREE TIMES A DAY completed amox icillin 500 MG Oral Capsule [place] ([facility]) Ciprofloxacin 500 MG Oral Tablet ciprofloxacin 500 mg tablet ciprofloxacin 500 mg tablet completed ciprofloxaci n 500 MG Oral Tablet [place] ([facility]) Insurance Providers Payer name Policy type / Coverage type Policy ID Covered alliance party ID Covered alliance party's relationship to reynoso Policy Reynoso Plan Information [id number] MEDICAID [facility] [id number] SP CC [id number] [place] [id number] SP [id number] MEDICAID M [id number] Self [id number] Medicaid Dental S [id number] S [id number] Medicaid P [id number] S [id number] MEDICAID [facility] [id number] SP [id number] [facility] COMM PLAN [facility] W [id number] S [id number] [facility] I [id number] Self [id number] [facility] [id number] Self [id number] [facility] I [id number] Self [id number] MEDICAID [id number] SP [id number] MEDICAID M [id number] Self [id number] UHC I [id number] Self [id number] UHC I [id number] Self [id number] Medicaid S [id number] S [id number] UNHC COMMUNITY PLAN MCDO [id number] SP [id number] UNHC COMMUNITY PLAN MCDHMO [id number] SP [id number] MEDICAID M [id number] Self [id number] UHC I [id number] Self [id number] UH I [id number] Self [id number] Managed Care - Community Plan United [employer] P [id number] S [id number] Medicaid S [id number] S [id number] Managed Care - Community Plan [employer] P [id number] S [id number] [facility] Health Maintenance Organization (HMO) [id number] Self [id number] [facility] COMMUNITY PLAN MCDHMO [id number] SP [id number] Medicaid S [id number] S [id number] Managed Care - Community Plan [employer] P [id number] S [id number] Managed Care - [facility] Community Plan P [id number] S [id number] [facility] COMMUNITY PLAN MCDHMO [id number] SP [id number] Medicaid S [id number] UNITED H [id number] Self [id number] Managed Care - [facility] Community Plan P [id number] S [id number] UH I [id number] Self [id number] [employer] 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 [id number] Self [id number] [employer] 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 [id number] Self [id number] [facility] [id number] SP [id number] SELF PAY [employer] [id number] SP [id number] [facility] COMMUNITY PLAN [id number] SP [id number] SELF PAY SELF PAY [facility] COMMUNITY PLAN [id number] SP [id number] [facility] [id number] SP [id number] SELF PAY SELF PAY SELF PAY SELF PAY [facility] MEDICAID [id number] [facility] MEDICAID [id number] [place] [id number] SELF PAY [facility] [place] [place] Health Maintenance Organization (HMO) [id number] Self [id number] [facility] Communty Plan Medicaid [id number] Self [id number] MEDICAID HEA [id number] S [id number] [facility] HEA [id number] S [id number] [facility] Communty Plan Medicaid [id number] Self [id number] [facility] Communty Plan Medicaid [id number] Self [id number] [facility] COMMUNITY PLAN [facility] [id number] SP [id number] [facility] Communty Plan Medicaid [id number] Self [id number] [facility] COMMUNITY PLAN [facility] [id number] SP [id number] [facility] Communty Plan Medicaid [id number] Self [id number] [facility] COMMUNITY PLAN XIX -I/P [id number] 18 [id number] [facility](MCAID) O [id number] S [id number] [employer] COMMUNITY PLAN [facility] [place] [id number] SP [id number] ANSI-Medicaid [id number] [facility] Communty Plan Medicaid [id number] Self [id number] [facility] COMMUNTY PLAN UNAVAILABLE 18 [facility]ABLE [facility] [id number] 18 [id number] [facility] Community Plan Commercial [id number] [facility] HEALTHCARE(MCAID) O [id number] S [id number] SELF PAY UNAVAILABLE UNAVAILA BLE MEDICAID W [id number] S [id number] [facility] [place] S [id number] S [id number] [facility] COMMUNITY PLAN [facility] [id number] SP [id number] MEDICAID W [id number] S [id number] MEDICAID ARYA [id number] S [id number] SELF PAY SP [id number] S [id number] MEDICAID REF AMBULAT W [id number] S [id number] MEDICAID W [id number] S [id number] [facility] [id number] SP [id number] [facility] UNAVAILABLE ALLIE VAILABLE PCP [facility] CARE O [id number] S [id number] MEDICAID GME W [id number] S [id number] E LENNY [id number] SP [id number] MEDICAID [id number] SP [id number] [facility] COMMUNITY PLAN XIX [id number] 18 [id number] Self Pay P [id number] S [id number] MEDICAID M [id number] S [id number] Problems, Conditions, and Diagnoses Code Display Name Description Problem Type Effective Dates Data Source(s) Z8719 Personal history of other diseases of th e digestive system Personal history of other diseases of the digestive system Diagnosis 04/21 11:11:00 AM EDT [facility] Z8711 Personal history of peptic ulcer disease Personal history of peptic ulcer disease Diagnosis 05/18/2021 11:11:00 AM EDT [facility] Z6837 Body mass index [BMI] 37.0-37.9, adult B stephanie mass index [BMI] 37.0-37.9, adult Diagnosis 05/18/2021 11:11:00 AM EDT [facility] E669 Obesity, unspecified Obesity, unspecified Diagnosis 05/18/2021 11:11:00 AM EDT [facility] E039 Hypothyroidism, unspecified Hypothyroidism, unspecifie d Diagnosis 05/18/2021 11:11:00 AM EDT [facility] K219 Gastro-esophageal reflux disease without esophagitis Gastro-esophageal reflux disease without esophagitis Diagnosis 05/18/2021 11:11:00 AM ED T [facility] D7389 Other diseases of spleen Other diseases of spleen Diag nosis 05/18/2021 11:11:00 AM EDT [facility] G8929 Other chronic pain Other chronic pain Diagnosis 11:11:00 AM EDT [facility] R1012 Left upper quadrant pain Left upper quadrant pain Diag nosis 05/18/2021 11:11:00 AM EDT [facility] R07.9 Chest pain, unspecified Chest pain, unspecified Diagno sis 03/11/2021 07:33:00 AM EDT [facility] R06.81 Apnea, not elsewhere classified Apnea, not elsew here classified Diagnosis 03/10/2021 08:46:15 PM [facility] R55 Syncope and collapse Syncope and collapse Diagnosis 02/28/2021 03:23:27 PM [facility] Z6838 Body mass index [BMI] 38.0-38.9, adult B stephanie mass index [BMI] 38.0-38.9, adult Diagnosis 02/12/2021 12:21:00 AM T [facility] K5900 Constipation, unspecified Constipation, unspecified Di agnosis 02/12/2021 12:21:00 AM [facility] R10.9 Unspecified abdominal pain Unspecified abdominal pain Diagnosis 12/26/2020 10:32:14 AM [facility] I43 Cardiomyopathy in diseases classified el sewhere Cardiomyopathy in diseases classified elsewhere Diagnosis 12/12/2020 09:00:39 AM [facility] 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 R10.33 Periumbilical pain Periumbilical pain Diagnosis 04/2021 10:23:12 AM [facility] stomach pain for 5 days and nausea stomach pain for 5 days and nausea Diagnosis 10/27/2020 10:23:12 AM [facility] N39.8 Other specified disorders of urinary sys tem Other specified disorders of urinary system Diagnosis 10/23/2020 09:07:[address] [facility] G89.29 Other chronic pain Other chronic pain Diagnosis 03/2021 04:11:08 PM [facility] M54.5 Low back pain Low back pain Diagnosis 09/25/2020 04:11:08 PM [facility] R10.2 Pelvic and perineal pain Pelvic and perineal pain Diag nosis 09/25/2020 10:11:40 AM [facility] R30.9 Painful micturition, unspecified Painful micturi tion, unspecified Diagnosis 09/25/2020 09:23:56 AM [facility] Headache and Lump on head for 2 weeks Headache a nd Lump on head for 2 weeks Diagnosis 09/19/2020 07:20:21 PM [facility] Z90.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 Z90.49 - Acquired absence of other specified parts of digestive tract Diagnosis 09/18/2020 09:34:00 AM EST [facility] K92.89 Other specified diseases of the digestiv e system K92.89 - Other specified diseases of the digestive system Diagnosis 09/18/2020 09:34:00 AM EST [facility] 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 G71.11 - Myotonic mu scular dystrophy Diagnosis 09/18/2020 09:34:00 AM EST [facility] E66.9 Obesity, unspecified E66.9 - Obesity, unspecified Diag nosis 09/18/2020 09:34:00 AM EST [facility] nausea , headache nausea , headache Diagnosis 09/06/2020 06:36:05 PM [facility] Back pain Back pain Diagnosis 08/27/2020 02:53:57 PM [facility] K92.1 Melena Melena Diagnosis 08/08/2020 12:09:27 PM [facility] K52.9 Noninfective gastroenteritis and colitis , unspecified Noninfective gastroenteritis and colitis, unspecified Diagnosis 08/08/2020 12:09:27 PM [facility] stomach pain stomach pain Diagnosis 08/08/2020 12:09:27 P M [facility] [id number] Personal history of urinary (tract) infe ctions Personal history of urinary (tract) infections Diagnosis 07/15/2020 07:08:00 PM [facility] Z8679 Personal history of other diseases of th e circulatory system Personal history of other diseases of the circulatory system Diagnosis 07:08:00 PM [facility] R1011 Right upper quadrant pain Right upper quadrant pain Di agnosis 07/15/2020 07:08:00 PM [facility] dizzy, stomach pain dizzy, stomach pain Diagnosis 020 01:49:50 PM [facility] B34.9 Viral infection, unspecified Viral infection, unspecif ied Diagnosis 07/02/2020 01:06:37 PM [facility] nausea, fever, headache nausea, fever, headache Diagno sis 07/02/2020 01:06:37 PM [facility] R11.2 Nausea with vomiting, unspecified Nausea with vo miting, unspecified Diagnosis 06/21/2020 03:53:45 PM [facility] R10.84 Generalized abdominal pain Generalized abdominal pain Diagnosis 06/21/2020 03:53:45 PM [facility] R50.9 Fever, unspecified Fever, unspecified Diagnosis 09/2019 03:53:45 PM [facility] J45.20 Mild intermittent asthma, uncomplicated Mild intermittent asthma, uncomplicated Diagnosis 05/31/2020 02:33:53 PM [facility] J06.9 Acute upper respiratory infection, unspe cified Acute upper respiratory infection, unspecified Diagnosis 05/31/2020 02:33:53 PM [facility] Chest tightness, wheezing Chest tightness, wheezing Di agnosis 05/31/2020 02:33:53 PM [facility] Had procedure done on 05/16/20 and sick ever since Had procedure done on 05/16/20 and sick ever since Diagnosis 05/21/2020 04:12:12 PM [facility] Z90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 Acquired absence of other specified parts of digestive tract Diagnosis 07:34:00 PM [facility] N3000 Acute cystitis without hematuria Acute cystitis without hematuria Diagnosis 05/20/2020 07:34:00 PM [facility] E66.01 Morbid (severe) obesity due to excess ca lories E66.01 - Morbid (severe) obesity due to excess calories Diagnosis 05/16/2020 09:23:00 AM EDT [facility] E66.01 Morbid (severe) obesity due to excess ca lories E66.01 - Morbid (severe) obesity due to excess calories Diagnosis 05/16/2020 07:46:00 AM EDT [email or web address] L02.92 Furuncle, unspecified Furuncle, unspecified Diagnosis 05/09/2020 11:12:41 AM EDT [facility] spider bite spider bite Diagnosis 05/09/2020 11:12:41 AM EDT [facility] R0600 Dyspnea, unspecified Dyspnea, unspecified Diagnosis 04/25/2020 09:46:00 PM EDT [facility] passing out, vomiting passing out, vomiting Diagnosis 04/25/2020 02:27:32 PM EDT [facility] passing out passing out Diagnosis 04/25/2020 02:15:55 PM EDT [facility] 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 Z90.710 - Acquired absence of both cervix and uterus Diagnosis 04/24/2020 08:04:00 AM EDT [facility] I42.9 Cardiomyopathy, unspecified I42.9 - Cardiomyopathy, un specified Diagnosis 04/24/2020 08:04:00 AM EDT [facility], R10.11 Right upper quadrant pain Right upper quadrant pain Di agnosis 04/22/2020 03:07:45 PM EDT [facility] Body Pain Body Pain Diagnosis 04/04/2020 04:41:29 PM ED [facility] general feeling of unwell general feeling of unwell Di agnosis 04/03/2020 10:04:54 AM EDT [facility] E66.09 Class 2 obesity due to exces s calories without serious comorbidity with body mass index (BMI) of 37.0 to 37.9 in adult Class 2 obesity due to excess calories without serious comorbidity with body mass index (BMI) of 37.0 to 37.9 in adult [id number] 03/12/2021 12:00:00 AM EDT [facility] G47.33 Obstructive sleep apnea syndrome Obstructive sle ep apnea syndrome [id number] 03/12/2021 12:00:00 AM EDT [facility] I42.9 Cardiomyopathy Cardiomyopathy [id number] 03/12/2021 12:00: 00 AM EDT [facility] I44.7 LBBB (left bundle branch block) LBBB (left bundle bran ch block) [id number] 03/12/2021 12:00:00 AM EDT [facility] 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.11 Myotonic dystrophy Myotonic dystrophy [id number] 12:00:00 AM EDT [facility] R07.9 Chest pain Chest pain [id number] 03/11/2021 12:00:00 AM ED T [facility] [id number] Left bundle branch block Left Bundle Branch Block Prob xiomara 03/05/2021 12:00:00 AM EDT [place] ([facility]) [id number] 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 Car diomyopathy in Myotonic Dystrophy Problem 03/05/2021 12:00:00 AM EDT [place] ([facility]) [id number] Left bundle branch block Left Bundle Branch Block Prob xiomara 03/05/2021 12:00:00 AM EDT [place] ([facility]) [id number] 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 Car diomyopathy in Myotonic Dystrophy Problem 03/05/2021 12:00:00 AM EDT [place] ([facility]) [id number] Hemorrhagic diarrhea Hemorrhagic Diarrhea Problem 12/19/2020 12:00:00 AM EDT [facility] ([facility]) [id number] Hemorrhagic diarrhea Hemorrhagic Diarrhea Problem 12/19/2020 12:00:00 AM EDT [facility] ([facility]) [id number] Hemorrhagic diarrhea Hemorrhagic Diarrhea Problem 12/19/2020 12:00:00 AM EDT [facility] ([facility]) [id number] Low back pain Low Back Pain Problem 09/26/2020 12:00:00 AM EST [facility] ([facility]) [id number] Low back pain Low Back Pain Problem 09/26/2020 12:00:00 AM EST [place] ([facility]) [id number] Low back pain Low Back Pain Problem 09/26/2020 12:00:00 AM EST [place] ([facility]) [id number] Low back pain Low Back Pain Problem 09/26/2020 12:00:00 AM EST [place] ([facility]) [id number] Low back pain Low Back Pain Problem 09/26/2020 12:00:00 AM EST [place] ([facility]) [id number] Low back pain Low Back Pain Problem 09/26/2020 12:00:00 AM EST [place] ([facility]) [id number] Low back pain Low Back Pain Problem 09/26/2020 12:00:00 AM EST [place] ([facility]) [id number] Left hemiparesis Left Hemiparesis Problem 08/30/2020 12 :00:00 AM EST [place] ([facility]) [id number] Left hemiparesis Left Hemiparesis Problem 08/30/2020 12 :00:00 AM EST [place] ([facility]) [id number] Left hemiparesis Left Hemiparesis Problem 08/30/2020 12 :00:00 AM EST [place] ([facility]) [id number] Left hemiparesis Left Hemiparesis Problem 08/30/2020 12 :00:00 AM EST [place] ([facility]) [id number] Left hemiparesis Left Hemiparesis Problem 08/30/2020 12 :00:00 AM EST [place] ([facility]) [id number] Left hemiparesis Left Hemiparesis Problem 08/30/2020 12 :00:00 AM EST [place] ([facility]) [id number] Left hemiparesis Left Hemiparesis Problem 08/30/2020 12 :00:00 AM EST [place] ([facility]) [id number] Left hemiparesis Left Hemiparesis Problem 08/30/2020 12 :00:00 AM EST [place] ([facility]) [id number] Left hemiparesis Left Hemiparesis Problem 08/30/2020 12 :00:00 AM EST [place] ([facility]) [id number] Body mass index 30+ - obesity Body Mass Index 30+ - Ob esity Problem 05/28/2020 12:00:00 AM EST [place] ([facility]) [id number] Body mass index 30+ - obesity Body Mass Index 30+ - Ob esity Problem 05/28/2020 12:00:00 AM EST [facility] ([facility]) [id number] Body mass index 30+ - obesity Body Mass Index 30+ - Ob esity Problem 05/28/2020 12:00:00 AM EST [facility] ([facility]) [id number] Body mass index 30+ - obesity Body Mass Index 30+ - Ob esity Problem 05/28/2020 12:00:00 AM EST [facility] ([facility]) [id number] Body mass index 30+ - obesity Body Mass Index 30+ - Ob esity Problem 05/28/2020 12:00:00 AM EST [place] ([facility]) [id number] Body mass index 30+ - obesity Body Mass Index 30+ - Ob esity Problem 05/28/2020 12:00:00 AM EST [place] ([facility]) [id number] Body mass index 30+ - obesity Body Mass Index 30+ - Ob esity Problem 05/28/2020 12:00:00 AM EST [place] ([facility]) [id number] Body mass index 30+ - obesity Body Mass Index 30+ - Ob esity Problem 05/28/2020 12:00:00 AM EST [place] ([facility]) [id number] Body mass index 30+ - obesity Body Mass Index 30+ - Ob esity Problem 05/28/2020 12:00:00 AM EST [place] ([facility]) [id number] Body mass index 30+ - obesity Body Mass Index 30+ - Ob esity Problem 05/28/2020 12:00:00 AM EST [place] ([facility]) [id number] Finding of esophagus Finding of Esophagus Problem 05/03/2020 06:15:26 PM EDT [facility] ([facility]) [id number] Hypothyroidism Hypothyroidism Problem 05/03/2020 06:15: 26 PM EDT [place] ([facility]) [id number] Finding of esophagus Finding of Esophagus Problem 05/03/2020 06:15:26 PM EDT [facility] ([facility]) [id number] Hypothyroidism Hypothyroidism Problem 05/03/2020 06:15: 26 PM EDT [place] ([facility]) [id number] Finding of esophagus Finding of Esophagus Problem 05/03/2020 06:15:26 PM EDT [place] ([facility]) [id number] Hypothyroidism Hypothyroidism Problem 05/03/2020 06:15: 26 PM EDT [place] ([facility]) [id number] Finding of esophagus Finding of Esophagus Problem 05/03/2020 06:15:26 PM EDT [place] ([facility]) [id number] Hypothyroidism Hypothyroidism Problem 05/03/2020 06:15: 26 PM EDT [place] ([facility]) [id number] Finding of esophagus Finding of Esophagus Problem 05/03/2020 06:15:26 PM EDT [place] ([facility]) [id number] Hypothyroidism Hypothyroidism Problem 05/03/2020 06:15: 26 PM EDT [place] ([facility]) [id number] Finding of esophagus Finding of Esophagus Problem 05/03/2020 06:15:26 PM EDT [place] ([facility]) [id number] Hypothyroidism Hypothyroidism Problem 05/03/2020 06:15: 26 PM EDT [place] ([facility]) [id number] Finding of esophagus Finding of Esophagus Problem 05/03/2020 06:15:26 PM EDT [place] ([facility]) [id number] Hypothyroidism Hypothyroidism Problem 05/03/2020 06:15: 26 PM EDT [place] ([facility]) [id number] Finding of esophagus Finding of Esophagus Problem 05/03/2020 06:15:26 PM EDT [place] ([facility]) [id number] Hypothyroidism Hypothyroidism Problem 05/03/2020 06:15: 26 PM EDT [place] ([facility]) [id number] Finding of esophagus Finding of Esophagus Problem 05/03/2020 06:15:26 PM EDT [place] ([facility]) [id number] Hypothyroidism Hypothyroidism Problem 05/03/2020 06:15: 26 PM EDT [place] ([facility]) [id number] Finding of esophagus Finding of Esophagus Problem 05/03/2020 06:15:26 PM EDT [place] ([facility]) [id number] Hypothyroidism Hypothyroidism Problem 05/03/2020 06:15: 26 PM EDT [place] ([facility]) [id number] Acute effect of ultraviolet radiation on normal skin Acute Effect of Ultraviolet Radiation on Normal Skin Problem 01/27/2018 12:00: 00 AM EDT - 03/05/2021 12:00:00 AM EDT [place] ([facility]) [id number] Acute effect of ultraviolet radiation on normal skin Acute Effect of Ultraviolet Radiation on Normal Skin Problem 01/27/2018 12:00: 00 AM EDT - 03/05/2021 12:00:00 AM EDT [place] ([facility]) [id number] Abdominal pain Abdominal Pain Problem 04/20/2015 12:00:00 AM EDT - 03/05/2021 12:00:00 AM EDT [place] ([facility]) [id number] Abdominal pain Abdominal Pain Problem 04/20/2015 12:00:00 AM EDT - 03/05/2021 12:00:00 AM EDT [place] ([facility]) Surgeries/Procedures Procedure Description Date Indications Data Source(s) RADIOLOGIC EXAM KNEE COMPLETE 4/MORE VIEWS 05/02/2021 12:00:00 AM EDT [facility] ([facility]) OFFICE OUTPATIENT VISIT 25 MINUTES 05/02/2021 12:00:00 AM EDT [facility] ([facility]) OFFICE OUTPATIENT NEW 30 MINUTES 05/01/2021 12:00:00 A M EDT [facility] ([facility], ) KIDNEY IMG MORPHOLOGY VASCULAR FLOW 1 W RX <td>NM KIDN EY FUNCTION WITH PHARM - 52844</td><td>Routine</td><td>03/22/2021 3:10 PM EDT</td><td> Dysfunctional voiding of urine Suprapubic discomfort</td><td> </td> 03/22/2021 03:10:54 PM EDT Suprapubic discomfortDysfunctional voiding of urine [facility] Suprapubic discomfort Dysfunctional voiding of urine CT ABDOEN & PELVIS W/CONTRAST MATERIAL <td>CT ABDOMEN PELVIS WITH CONTRAST 12175</td><td>Routine</td><td>03/22/2021 3:01 PM EDT</td><td> Dysfunctional voiding of urine Suprapubic discomfort</td><td> </td> 03/22/2021 03:01:51 PM EDT Suprapubic discomfortDysfunctional voiding of urine [facility] Suprapubic discomfort Dysfunctional voiding of urine BLOOD COUNT COMPLETE AUTOMATED <td>CBC</td><td>Routine </td><td>03/13/2021 12:49 PM EDT</td><td></td><td> </td> 03/13/2021 12:49:00 PM EDT [facility] LIPASE <td>LIPASE</td><td>Routine</ td><td>03/13/2021 12:49 PM EDT</td><td></td><td> </td> 03/13/2021 12:49:00 PM EDT [facility] COMPREHENSIVE METABOLIC PANEL <td>COMPREHENSIVE METABO LIC PANEL</td><td>Routine</td><td>03/13/2021 12:49 PM EDT</td><td></td><td> </td> 03/13/2021 12:49:00 PM EDT [facility] CT ABDOMEN & PELVIS W/O CONTRAST MATERIAL <td>CT ABDOM EN PELVIS WO CONTRAST</td><td>Routine</td><td>03/12/2021 6:26 PM EDT</td><td></td><td> </td> 03/12/2021 06:26:06 PM EDT [facility] BLOOD COUNT COMPLETE AUTOMATED <td>CBC</td><td>Add-On< /td><td>03/12/2021 6:00 PM EDT</td><td></td><td> </td> 03/12/2021 06:00:00 PM EDT [facility] LIPASE <td>LIPASE</td><td>Add-On</t d><td>03/12/2021 6:00 PM EDT</td><td></td><td> </td> 03/12/2021 06:00:00 PM EDT [facility] COMPREHENSIVE METABOLIC PANEL <td>COMPREHENSIVE METABO LIC PANEL</td><td>Add- On</td><td>03/12/2021 6:00 PM EDT</td><td></td><td> </td> 03/12/2021 06:00:00 PM EDT [facility] FIBRIN DGRADJ PRODUCTS D-DIMER QUANTITATIVE <td>D-DIME R, QUANTITATIVE</td><td>Routine</td><td>03/12/2021 5:59 PM EDT</td><td></td><td> </td> 03/12/2021 05:59:00 PM EDT [facility] MYOCARDIAL SPECT MULTIPLE STUDIES <td>NM CARDIAC GATED SPEC IMG EFWM</td><td>Pending Discharge</td><td>03/12/2021 3:22 PM EDT</td><td></td><td> </td> 03/12/2021 03:22:00 PM EDT [facility] CV STRS TST XERS&/OR RX CONT ECG TRCG ONLY <td>STRESS TEST, CARDIOVASCULAR</td><td>Routine</td><td>03/12/2021 1:29 PM EDT</td><td></td><td></td> 03/12/2021 01:29:23 PM EDT [facility] TROPONIN QUANTITATIVE <td>POCT TROPONIN</td><td>Ro utine</td><td>03/11/2021 8:45 PM EDT</td><td></td><td> </td> 03/11/2021 08:45:00 PM EDT [facility] CV STRS TST XERS&/OR RX CONT ECG TRCG ONLY <td>STRESS TEST, CARDIOVASCULAR</td><td>Pending Discharge</td><td>03/11/2021 8:43 PM EDT</td><td></td><td></td> 03/11/2021 08:43:49 PM EDT [facility] ECG ROUTINE ECG W/LEAST 12 LDS TRCG ONLY W/O I&R <td>E CG 12- LEAD</td><td>Routine</td><td>03/11/2021 8:23 PM EDT</td><td></td><td></td> 03/11/2021 08:23:28 PM EDT [facility] TROPONIN QUANTITATIVE <td>TROPONIN I</td><td>Routi ne</td><td>03/11/2021 4:55 PM EDT</td><td></td><td> </td> 03/11/2021 04:55:00 PM EDT [facility] TROPONIN QUANTITATIVE <td>POCT TROPONIN</td><td>Ro utine</td><td>03/11/2021 2:07 PM EDT</td><td></td><td> </td> 03/11/2021 02:07:00 PM EDT [facility] TROPONIN QUANTITATIVE <td>TROPONIN I</td><td>Routi ne</td><td>03/11/2021 2:01 PM EDT</td><td></td><td> </td> 03/11/2021 02:01:00 PM EDT [facility] TROPONIN QUANTITATIVE <td>POCT TROPONIN</td><td>Ro utine</td><td>03/11/2021 10:29 AM EDT</td><td></td><td> </td> 03/11/2021 10:29:00 AM EDT [facility] NT PRO BNP <td>NT PRO BNP</td><td>STAT< /td><td>03/11/2021 10:23 AM EDT</td><td></td><td> </td> 03/11/2021 10:23:00 AM EDT [facility] BLOOD COUNT COMPLETE AUTO&AUTO DIFRNTL WBC COUNT <td>C BC AND DIFFERENTIAL</td><td>STAT</td><td>03/11/2021 10:23 AM EDT</td><td></td><td> </td> 03/11/2021 10:23:00 AM EDT [facility] GONADOTROPIN CHORIONIC QUALITATIVE <td>HCG, SERUM, QUALITATIVE</td><td>STAT</td><td>03/11/2021 10:23 AM EDT</td><td></td><td> </td> 03/11/2021 10:23:00 AM EDT [facility] MAGNESIUM <td>MAGNESIUM</td><td>STAT</ td><td>03/11/2021 10:23 AM EDT</td><td></td><td> </td> 03/11/2021 10:23:00 AM EDT [facility] LIPASE <td>LIPASE</td><td>STAT</td> <td>03/11/2021 10:23 AM EDT</td><td></td><td> </td> 03/11/2021 10:23:00 AM EDT [facility] COMPREHENSIVE METABOLIC PANEL <td>COMPREHENSIVE METABO LIC PANEL</td><td>STAT</td><td>03/11/2021 10:23 AM EDT</td><td></td><td> </td> 03/11/2021 10:23:00 AM EDT [facility] XR CHEST PA AND LATERAL <td>XR CHEST PA AND LATERAL</td><td>STAT</td><td>03/11/2021 9:45 AM EDT</td><td></td><td> </td> 03/11/2021 09:45:15 AM EDT [facility] ECG ROUTINE ECG W/LEAST 12 LDS TRCG ONLY W/O I&R <td>E CG 12- LEAD</td><td>STAT</td><td>03/11/2021 9:23 AM EDT</td><td></td><td></td> 03/11/2021 09:23:00 AM EDT [facility] ECG ROUTINE ECG W/LEAST 12 LDS W/I&R <td>ECG 12- LEAD</td><td>Routine</td><td>03/11/2021 7:43 AM EDT</td><td></td><td> </td> 03/11/2021 07:43:00 AM EDT [facility] ECG ROUTINE ECG W/LEAST 12 LDS W/I&R <td>ECG 12- LEAD</td><td>Routine</td><td>03/11/2021 7:43 AM EDT</td><td></td><td></td> 03/11/2021 07:43:00 AM EDT [facility] POTASSIUM SERUM PLASMA/WHOLE BLOOD <td>POTASSIUM</td><td>Routine</td><td>02/28/2021 12:13 PM EDT</td><td></td><td> </td> 02/28/2021 12:13:00 PM [facility] BLOOD COUNT COMPLETE AUTOMATED <td>CBC</td><td>Routine </td><td>02/28/2021 8:09 AM EDT</td><td></td><td> </td> 02/28/2021 08:09:00 AM [facility] COMPREHENSIVE METABOLIC PANEL <td>COMPREHENSIVE METABO LIC PANEL</td><td>Routine</td><td>02/28/2021 8:09 AM EDT</td><td></td><td> </td> 02/28/2021 08:09:00 AM [facility] BASIC METABOLIC PANEL CALCIUM TOTAL <td>BASIC METABOLI C PANEL</td><td>Routine</td><td>02/27/2021 6:13 PM EDT</td><td></td><td> </td> 02/27/2021 06:13:00 PM [facility] EKG 12-LEAD - CMAXX REPORT <td>EKG 12-LEAD - CMAXX REPORT</td><td></td><td>02/27/2021 6:07 PM EDT</td><td></td><td></td> 02/27/2021 06:07:52 PM [facility] EKG 12-LEAD - CMAXX REPORT <td>EKG 12-LEAD - CMAXX REPORT</td><td></td><td>02/27/2021 6:07 PM EDT</td><td></td><td></td> 02/27/2021 06:07:52 PM [facility] EKG 12-LEAD <td>EKG 12-LEAD</td><td>Rout ine</td><td>02/27/2021 6:07 PM EDT</td><td></td><td> </td> 02/27/2021 06:07:52 PM [facility] TROPONIN T HIGH SENSITIVITY <td>TROPONIN T HIGH SENSITIVITY</td><td>Routine</td><td>02/27/2021 1:32 PM EDT</td><td></td><td> </td> 02/27/2021 01:32:00 PM [facility] FIBRIN DGRADJ PRODUCTS D-DIMER QUAL/SEMIQUAN <td>D-DIM ER, QUANTITATIVE</td><td>Routine</td><td>02/27/2021 1:32 PM EDT</td><td></td><td> </td> 02/27/2021 01:32:00 PM [facility] ECHOCARDIOGRAM 2D COMPLETE WITH CONTRAST <td>ECHOCARDI OGRAM 2D COMPLETE WITH CONTRAST</td><td>Routine</td><td>02/27/2021 11:23 AM EDT</td><td></td><td></td> 02/27/2021 11:23:49 AM [facility] XR ABDOMEN AP ABD SUPINE ONLY [id number] <td>XR ABDOMEN AP ABD SUPINE ONLY [id number]</td><td>Routine</td><td>02/27/2021 2:11 AM EDT</td><td></td><td> </td> 02/27/2021 02:11:00 AM [facility] TROPONIN T HIGH SENSITIVITY <td>TROPONIN T HIGH SENSITIVITY</td><td>STAT</td><td>02/27/2021 1:55 AM EDT</td><td></td><td> </td> 02/27/2021 01:55:00 AM [facility] TROPONIN T HIGH SENSITIVITY <td>TROPONIN T HIGH SENSITIVITY</td><td>Routine</td><td>02/26/2021 11:19 PM EDT</td><td></td><td> </td> 02/26/2021 11:19:00 PM [facility] BLOOD COUNT COMPLETE AUTOMATED <td>CBC AND DIFFERENTIAL</td><td>Routine</td><td>02/26/2021 11:19 PM EDT</td><td></td><td> </td> 02/26/2021 11:19:00 PM [facility] COMPREHENSIVE METABOLIC PANEL <td>COMPREHENSIVE METABO LIC PANEL</td><td>Routine</td><td>02/26/2021 11:19 PM EDT</td><td></td><td> </td> 02/26/2021 11:19:00 PM [facility] EKG 12-LEAD - CMAXX REPORT <td>EKG 12-LEAD - CMAXX REPORT</td><td></td><td>02/26/2021 10:16 PM EDT</td><td></td><td></td> 02/26/2021 10:16:17 PM [facility] EKG 12-LEAD - CMAXX REPORT <td>EKG 12-LEAD - CMAXX REPORT</td><td></td><td>02/26/2021 10:16 PM EDT</td><td></td><td></td> 02/26/2021 10:16:17 PM [facility] EKG 12-LEAD <td>EKG 12-LEAD</td><td>Rout ine</td><td>02/26/2021 10:16 PM EDT</td><td></td><td> </td> 02/26/2021 10:16:17 PM [facility] EKG 12-LEAD <td>EKG 12-LEAD</td><td>Rout ine</td><td>02/26/2021 10:16 PM EDT</td><td></td><td></td> 02/26/2021 10:16:17 PM EDT [facility] Echocardiography (procedure) 02/26/2021 08:41:[address] [facility] Ultrasound scan of carotid (procedure) 02/26/2021 08:3 2:00 AM [facility] MRI Cervical without contrast 02/26/2021 08:09:00 AM [facility] MRI Brain without contrast 02/26/2021 07:55:00 AM [facility] MRA Head without contrast 02/26/2021 07:54:00 AM [facility] Computed tomography of abdomen and pelvis with contrast (pro cedure) 02/26/2021 05:08:[facility] contrast 02/26/2021 05:08:00 AM [facility] SARS-CoV-2 Rapid RNA (RT-PCR) 02/26/2021 12:00:00 AM [facility] Plain chest X-ray (procedure) 02/25/2021 10:31:00 PM [facility] EKG 12-LEAD - CMAXX REPORT <td>EKG 12-LEAD - CMAXX REPORT</td><td></td><td>01/03/2021 10:45 AM EDT</td><td></td><td></td> 01/03/2021 10:45:33 AM EDT [facility] EKG 12-LEAD - CMAXX REPORT <td>EKG 12-LEAD - CMAXX REPORT</td><td></td><td>01/03/2021 10:45 AM EDT</td><td></td><td></td> 01/03/2021 10:45:33 AM EDT [facility] EKG 12-LEAD <td>EKG 12-LEAD</td><td>Rout ine</td><td>01/03/2021 10:45 AM EDT</td><td></td><td></td> 01/03/2021 10:45:33 AM EDT [facility] EKG 12-LEAD <td>EKG 12-LEAD</td><td>Rout ine</td><td>01/03/2021 10:45 AM EDT</td><td> LBBB (left bundle branch block)</td><td> </td> 01/03/2021 10:45:33 AM EDT LBBB (left bundle branch block) [facility] pital LBBB (left bundle branch block) COMPLEX UROFLOMETRY <td>COMPLEX UROFLOWMETRY</td ><td>Routine</td><td>09/25/2020 9:51 AM EST</td><td> Urinary pain</td><td></td> 09/25/2020 09:51:28 AM EST Urinary pain [facility] Urinary pain TERESSA POST-VOIDING RESIDUAL URINE&/BLDR CAP <td>BLADDER SCAN, POST VOID</td><td>Routine</td><td>09/25/2020 9:51 AM EST</td><td> Urinary pain</td><td></td> 09/25/2020 09:51:28 AM EST Urinary pain [facility] Urinary pain SPIROMETRY (INCLUDES FLOW VOLUME LOOP) <td>SPIROMETRY (INCLUDES FLOW VOLUME LOOP)</td><td>Routine</td><td>09/21/2020 1:50 PM EST</td><td> Myotonic dystrophy, type 1</td><td></td> 09/21/2020 01:50:33 PM EST Myotonic dystrophy, type 1 [facility] Myotonic dystrophy, type 1 EKG 12-LEAD - CMAXX REPORT <td>EKG 12-LEAD - CMAXX REPORT</td><td></td><td>06/18/2020 2:25 PM EST</td><td></td><td></td> 06/18/2020 02:25:07 PM EST [facility] EKG 12-LEAD <td>EKG 12-LEAD</td><td>Rout ine</td><td>06/18/2020 2:25 PM EST</td><td></td><td></td> 06/18/2020 02:25:07 PM EST [facility] Endoscopy and biopsy of upper gastrointestinal tract (proced ure) 05/16/2020 08:30:00 AM EDT [facility] Endoscopy and biopsy of upper gastrointestinal tract (proced ure) 05/16/2020 08:30:00 AM EDT [facility] Endoscopy and biopsy of upper gastrointestinal tract (proced ure) 05/16/2020 08:30:00 AM EDT [facility] Endoscopy and biopsy of upper gastrointestinal tract (proced ure) 05/16/2020 08:30:00 AM EDT [facility] Endoscopy and biopsy of upper gastrointestinal tract (proced ure) 05/16/2020 08:30:00 AM EDT [facility] Results ID Date Data Source [id number] 05/19/2021 10:09:00 AM EDT [facility] [address] [place] [address] PHONE: [phone] FAX: [phone] Name .................. : ELI Long Acct Number.................. : [id number] ROOM. ................. : NC-10 MR Number ................... : [id number] Stay type ............. : E/R Discharge Date......... ... : 05/18/21 Admit Date ......... : 05/18/21 Admit Phys .................... : MCLEAN SOUTHEASTLIECCO Date of ....... : 1990 Family Phys ................... : [employer] Phone .................. : Age ................................ : 30 Film# .................. .:[id number] Sex ................................. : F Unsigned transcriptions are preliminary reports and do not represent a medical or legal document CT ABD & PELVIS W/ IV ONLY [id number] COMPLETE:05/18/21 15:25 JOHN [id number] Reason(s): PENDING CMP; LUQ abd pain CT ABDOMEN AND PELVIS WITH IV CONTRAST INDICATION: Left upper quadrant abdominal pain COMPARISON: 07/15/20 IV CONTRAST: 75 cc Isovue-370 Preliminary report for this exam was provided by [facility] . One or more of the following dose reduction techniques were utilized in effectively lowering the radiation dose for this examination: Automated Exposure Control, Adjustment of the mA and/or kV according to patient size, or Iterative reconstruction. FINDINGS: LUNG BASES: Minimal basilar atelectasis/scar. LIVER/BILIARY: Normal liver. Cholecystectomy. SPLEEN: Scattered granulomata. Normal size. No lesion. PANCREAS: Normal. ADRENALS: Normal bilaterally. KIDNEYS/: Bilateral extrarenal pelves. These are more distended than prior but not hydronephrotic. Otherwise normal kidneys. Grossly normal bladder. Hysterectomy: No abnormally enlarged adnexal structures. Trace free fluid which may be physiologic. BOWEL/GI: No diverticulitis or colitis. Right lower quadrant ileocolonic anastomosis. No free Page 1 of 2 [facility] [address] [place] [address] PHONE: [phone] FAX: [phone] Name .................. : CORTEZ COREY Long Acct Number.................. : [id number] ROOM. ................. : [facility] MR Number ................... : [id number] Stay type ............. : E/R Discharge Date......... ... : 05/18/21 Admit Date ......... : 05/18/21 Admit Phys .................... : [facility] Date of ....... : 1990 Family Phys ................... : [employer] Phone .................. : Age ................................ : 30 Film# .................. .:[id number] Sex ................................. : F Unsigned transcriptions are preliminary reports and do not represent a medical or legal document CT ABD & PELVIS W/ IV ONLY [id number] COMPLETE:05/18/21 15:25 JOHN [id number] Reason(s): PENDING CMP; LUQ abd pain air. No abnormal gastric distention. No left upper quadrant abdominal wall hernia. NODES/RETROPERITONEUM: No adenopathy. No AAA. SKELETAL: Minimal degenerative endplate changes T12-L1. IMPRESSION: Cholecystectomy, hysterectomy, ileocolonic anastomosis. No acute abnormality or etiology for left upper quadrant pain is identified. Electronically Reviewed and Signed By Tyrone Nash MD , 05/19/21 10:09, JESSI Transcribe Initials: GALINA , Transcribe Date: 05/18/21 20:20, Dictation Date: Copy for: SANDY MARES via fax Copy for: EMERGENCY DEPT via modem Copy for: 710 MED REC DISCHARGED Page 2 of 2 Name Value Range Interpretation Code Description Data Renee rce(s) Supporting Document(s) ID Date Data Source [id number] 05/18/2021 11:11:00 AM EDT [facility] 1 OrderSheet [facility] Emergency Department [address] [place] [address] Phone #: ext- [phone] 05/18/2021 11:10 Patient: COREY CORTEZ Sex: F : 1990 Age: 30yWEIGHT:120.2 kg HEIGHT:71 inches BMI:37.0ALLERGIES: Aspirin, Reglan, traMADol HClCHIEF COMPLAINT: abdominal painDIAGNOSIS: Abdominal pain, ProblemLAB ORDERSOrder Description Priority Entered Acknowledged InitialedCBC w Diff STAT 12:37 05/18/2021 13:23 Julio César Snow RN P.A.- C;CMP STAT 12:37 05/18/2021 13:23 Julio César Snow RN P.A.-C;Lipase STAT 12:37 05/18/2021 13:23 Julio César Snow RN P.A.-C;Lactic Acid STAT 12:37 05/18/2021 13:23 Julio César Snow RN P.A.-C;Culture, Stool STAT 12:37 05/18/2021 Ack'd: 13:30 Padmini Herman RN P.A.-C;Culture, Urine STAT 12:37 05/18/2021 Ack'd: 13:30(Urine, Clean Padmini Herman RNCatch) HaC;Urinalysis (Clean STAT 12:37 05/18/2021 Ack'd: 13:30Catch) Padmini Herman RN P.A.-C;Monospot STAT 12:37 05/18/2021 13:23 Julio César Snow RN P.A.-C;DIAGNOSTIC STUDY ORDERSOrder Description Priority Entered Acknowledged InitialedCT Abd PEL W/ IV STAT 12:37 05/18/2021 Ack'd: 13:31 17:02 Edy,Contrast Only Padmini Herman RN, RN(Oxygen?(No)) P.A.-C;(IV?(Yes)) 2 OrderSheet [facility] Emergency Department [address] [place] [address] Phone #: ext- [phone] 05/18/2021 11:10 Patient: COREY CORTEZ Sex: F : 1990 Age: 30y Reason for Study: PENDING CMP; LUQ abd painMEDICATION/IV/DRIP/FLUID ORDERSOrder Description Priority Entered Acknowledged InitialedNS IV : Bolus 1000 12:37 05/18/2021 13:13 Edy,mL, then 75 mL/hr Julio César Washington RN P.A.-C;Zofran IVP 4 mg 12:37 05/18/2021 13:23 Julio César Snow RN P.A.- C;Benadryl IVP 25 mg 12:37 05/18/2021 13:23 Julio César Snow RN P.A.-C;GENERAL ORDERSOrder Description Priority Entered Acknowledged InitialedNPO 12:37 05/18/2021 13:23 Julio César Snow RN P.A.-C;Saline Lock 12:37 05/18/2021 13:23 Julio César Snow RN P.A.-C;[Electronically signed by Thelma Dennis R.N. (17:14 05/18/2021)][Electronically signed by Julio César Delgado P.A.-C (21:57 05/18/2021)][Electronically locked by Thelma Dennis R.N. (17:14 05/18/2021)] Name Value Range Interpretation Code Description Data Renee rce(s) Supporting Document(s) ID Date Data Source [id number] 05/18/2021 11:11:00 AM EDT [facility] 1 Medication Reconciliation Report [facility] Emergency Department [address] [place] [address] Phone #: ext- [phone] 05/18/2021 11:10 Patient: COREY CORTEZ Sex: F : 1990 Age: 30yWeight: 120.2 kgHeight/Length: 71 in.BMI: 37.0ALLERGIES: Aspirin, Reglan, traMADol HClThe patient's Home Medications are listed below:CONTINUE TAKING THE FOLLOWING MEDICATIONS: Lasix Oral, prn Mexiletine HCl OralCONTINUE TAKING THE FOLLOWING MEDICATIONS UNTIL YOU CHECK WITH YOUR PHYSICIAN: Potassium Chloride Oral, prnThe source(s) of the original Home Medication information:Not obtained.The following Medications were given to the patient in the Emergency Department:NS [IV] IV Fluids bolus 1000 mL over 1 hour(s), then 75 mL/hr, administered: 13:13 05/18/2021Zofran [IVP] IVP 4 mg, administered: 13:23 05/18/2021enadryl [IVP] IVP 25 mg, administered: 13:23 05/18/2021The following Medications were prescribed to the patient:dicyclomine 20 mg tablet Take 1 tablet three times a day for 5 days -- Dispense 15 tablet. Refills: 0.Substitution permitted. Note to Pharmacy - Remind to NOT take her potassium (sts last dose was last, its a PRN med):USE Rx DISCOUNT CARD: $6.96, BIN:[id number], PCNPharmacy - [id number] - [id number] ; [place] [address]. FaxNumber: .gabapentin 100 mg capsule Take 1 capsule three times a day for 3 days -- Dispense 9 capsule. Refills:0. Substitution permitted. Note to Pharmacy - USE Rx DISCOUNT C [place]: $4.54, BIN:[id number], 2 Medication Reconciliation Report [facility] Emergency Department [address] [place] [address] Phone #: ext- [phone] 05/18/2021 11:10 Patient: COREY CORTEZ Sex: F : 1990 Age: 30yPCN:[id number], Group:[id number], ID:[id number].Pharmacy - [id number] - [id number] ; [place] [address]. FaxNumber: . -- Julio César Delgado P.A.-C Name Value Range Interpretation Code Description Data Renee rce(s) Supporting Document(s) ID Date Data Source [id number] 05/18/2021 11:11:00 AM EDT [facility] 1 Medication Administration Record [facility] Emergency Department [address] [place] [address] Phone #: [phone] 05/18/2021 11:10 Patient: COREY CORTEZ Sex: F : 1990 Age: 30yWeight: 120.2 kgHeight/Length: 71 inBMI: 37ALLERGIES: Reglan, traMADol HCl, Aspirin Date/Time Medication Administered Medication OrderedStart NS [IV] NS IV : Bolus 1000 mL, then 7513:13 05/18/2021 Dose: IV Fluids mL/hrLaPadmini Todd RN Rate: 75 mL/hr over 4 hour(s)---- Bolus: 1000 mL over 1 hour(s)Stop Dispensed: 1000 mL bag14:30 05/18/2021 Site: #1 right forearmWood, Thelma, R.N.Given ZOFRAN [IVP] (ONDANSETRON HCL) Zofran IVP 4 mg13:23 05/18/2021 Dose: 4 mg IVPLPadmini García RN Site: #1 right forearmGiven BENADRYL [IVP] (DIPHENHYDRAMINE Benadryl IVP 25 mg13:23 05/18/2021 HCL)Padmini Snow RN Dose: 25 mg IVP Site: #1 right forearm Name Value Range Interpretation Code Description Data Renee rce(s) Supporting Document(s) ID Date Data Source [id number] 05/18/2021 11:11:00 AM EDT [facility] 1 General Instructions [facility] Emergency Department [address] [place] [address] Phone #: ext- [phone] 05/18/2021 11:10 Patient: COREY CORTEZ Sex: F : 1990 Age: 30yChronic left upper quadrant abdominal pain of unknown cause. ;abnormal CT of the abdomen and pelvis. (Punctate calcifications are present within the spleen. These arecompatible with old).INSTRUCTIONSDrink plenty of fluids.(Recommend to utilize OTC Motrin and Tylenol to control inflammation and pain management.Recommend to follow the instructions on the bottle and not to exceed.You indicated that you take potassium as needed. DO NOT TAKE with todays meds.).Warnings: GENERAL WARNINGS: Return or contact your physician immediately if your conditionworsens or changes unexpectedly, if not improving as expected, or if other problems arise.Your Current Medications: Your current home medica tions have been reviewed.CONTINUE TAKING THE FOLLOWING MEDICATIONS:Lasix Oral : prn.Mexiletine HCl Oral.Prescription monitor program consulted by me due to This report was requested by: Julio César Thompsone #: [id number]. Prescription does not exceed state maximum supply of medicationsCONTINUE TAKING THE FOLLOWING MEDICATIONS UNTIL YOU CHECK WITH YOUR PHYSICIAN:Potassium Chloride Oral : prn.Prescription Medications:dicyclomine 20 mg tablet Take 1 tablet three times a day for 5 days -- Dispense 15 tablet. Refills: 0.Substitution permitted. Note to Pharmacy - Remind to NOT take her potassium (sts last dose was lastmon, its a PRN med):USE Rx DISCOUNT CARD: $6.96, BIN:[id number], PCNPharmacy - [id number] - [id number] [place] [address]. FaxNumber: .gabapentin 100 mg capsule Take 1 capsule three times a day for 3 days -- Dispense 9 capsule. Refills:0. Substitution permitted. Note to Pharmacy - USE Rx DISCOUNT CARD: $4.54, BIN:[id number],PCN:[id number], Group:[id number], ID:[id number].Pharmacy - [facility] - [id number] ; [place] [address]. FaxNumber: [phone]. 2 General Instructions [facility] Emergency Department [address] [place] [address] Phone #: ext- [phone] 05/18/2021 11:10 Patient: COREY CORTEZ Sex: F : 1990 Age: 30yFollow-up:Return to the emergency department as needed. Follow up with a nutrition assistant Recommend acolonscopy for furhtana cristina eval. Call for the next available appointment.Understanding of the discharge instructions verbalized by patient. ADDITIONAL INFORMATIONUnknown Causes of Abdominal Pain (Female)The exact cause of your belly (abdominal) pain is not clear. This does not mean that this is somethingto worry about. Everyone likes to know the exact cause of the problem. But sometimes with bellypain, there is no clear-cut cause, and this could be a good thing. The good news is that yoursymptoms can be treated, and you will feel better.Your condition does not seem serious now. But sometimes the signs of a serious problem may takemore time to appear. For this reason, it is important for you to watch for any new symptoms,problems, or worsening of your condition.Over the next few days, the abdominal pain may come and go. Or it may be constant. Other common 3 General Instructions [facility] Emergency Department [address] [place] [address] Phone #: ext- [phone] 05/18/2021 11:10 Patient: COREY CORTEZ Sex: F : 1990 Age: 30ysymptoms can include nausea and vomiting. Sometimes it can be difficult to tell if you feel nauseous.You may just feel bad and not connect that feeling to nausea. Constipation, diarrhea, and a fever maygo along with the pain.The pain may continue even if treated correctly over the following days. Depending on how things go,sometimes the cause can become clear and may need more or different treatment. Additionalevaluations, medicines, or tests may also be needed.Home careYour healthcare provider may prescribe medicine for pain, symptoms, or an infection. Follow thehealthcare provider's instructions for taking these medicines.General care Rest as much as you can until your next exam. No strenuous activities. Try to find positions that ease discomfort. A small pillow placed on the abdomen may help relieve pain. Something warm on your abdomen (such as a heating pad) may help, but be careful not to burn yourself.Diet Don't force yourself to eat, especially if having cramps, vomiting, or diarrhea. Water is important so you don't get dehydrated. Soup may also be good. Sports drinks may also help, especially if they are not too acidic. Don't drink sugary drinks as this can make things worse. Take liquids in small amounts. Don't guzzle them. Caffeine sometimes makes the pain and cramping worse. Don't take dairy products if you have vomiting or diarrhea. Don't eat large amounts at a time. Wait a few minutes between bites. Eat a diet low in fiber (called a low-residue diet). Foods allowed include refined breads, white rice, fruit and vegetable juices without pulp, tender meats. These foods will pass more easily through the intestine. Don't have whole-grain foods, whole fruits and vegetables, meats, seeds and nuts, fried or fatty foods, dairy, alcohol and spicy foods until your symptoms go away.Follow-up careFollow up with your healthcare provider, or as advised, if your pain does not begin to improve in the 4 General Instructions [facility] Emergency Department [address] [place] [address] Phone #: ext- [phone] 05/18/2021 11:10 Patient: COREY CORTEZ Sex: Philipp : 1990 Age: 30ynext 24 hours.Call 911Call 911 if any of these occur: Trouble breathing Confusion Fainting or loss of consciousness Rapid heart rate SeizureWhen to seek medical adviceCall your healthcare provider right away if any of these occur: Pain gets worse or moves to the right lower abdomen New or worsening vomiting or diarrhea Swelling of the abdomen Unable to pass stool for more than 3 days Fever of 100.4F (38C) or higher, or as directed by your healthcare provider. Blood in vomit or bowel movements (dark red or black color) Yellow color of eyes and skin (jaundice) Weakness, dizziness Chest, arm, back, neck, or jaw pain Unexpected vaginal bleeding or missed period Can't keep down liquids or water and you are getting dehydrated [phone] [employer]. [address] [place] [address]. All rights reserved. This information is not intended as asubstitute for professional medical care. Always follow your healthcare professional's instructions. You have been given the following additional information: Abdominal Pain, Unknown Cause, (Female) 5 General Instructions [facility] Emergency Department [address] [place] [address] Phone #: ext- [phone] 05/18/2021 11:10 Patient: COREY CORTEZ Sex: Philipp : 1990 Age: 30y(Electronically signed by Julio César Delgado P.A.-C 05/18/2021 21:57) Name Value Range Interpretation Code Description Data Renee rce(s) Supporting Document(s) ID Date Data Source [id number] 05/18/2021 11:11:00 AM EDT [facility] 1 Clinical Report - Nurses [facility] Emergency Department [address] [place] [address] Phone #: ext- [phone] 05/18/2021 11:10 Patient: COREY CORTEZ Sex: F : 1990 Age: 30yTRIAGEArrived by private vehicle. Historian: patient.Acuity: LEVEL 3.Chief Complaint: ABDOMINAL PAIN, NAUSEA, VOMITING and DIARRHEA.Alert. No acute distress.This is a recurrent problem. (1 week). ( N/V/D for 1 week, see's GI in [place]. Pain is LUQ, sharp, hxumbilical hernias.). She has had nausea, vomiting, diarrhea and abdominal pain. No constipation orfever. Last oral intake by patient was (2 days ago).Treatment TOBACCO STEMMER:(TUMS @1 hour ago).SEPSIS SCREEN: SIRS SCREEN NEGATIVE. SEPSIS SCREEN NEGATIVE. No suspected or confirmedsigns of infection present. --11:42 05/18/21 Sonny OctoberDebra.11:31 05/18/21. BP: 113/74. MAP: 87. HR: 68. RR: 18. O2 saturation: 95% on room air. Temp: 97.5 F.Pain level now: 7/10. Describes the quality as sharp. --11:42 05/18/21 Thelma Dennis RFaye.Weight: 120.2 kg. Height/Length: 71 inches. BMI: 37. --11:41 05/18/21 ThelmaDebra.MedicationsLasix Oral, as needed. --11:38 05/18/21 OctoberDebra. Potassium Chloride Oral, as needed. --11:38 05/18/21Thelma R.N. Mexiletine HCl Oral. --11:40 05/18/21 Thelma Dennis R.N.AllergiesAspirin.(Anaphy laxis) --11:35 05/18/21 Thelma Dennis R.N.traMADol HCl. (seizure) --11:35 05/18/21 Thelma Dennis R.N.Reglan. (syncope) --11:35 05/18/21 Thelma Dennis R.N.PROBLEMS:Av block.UTI - Urinary Tract Infection.Gas trodysmobility.Gastritis.GI Issues.Gastroesophageal Reflux Disease.Left bundle branch block. 2 Clinical Report - Nurses [facility] Emergency Department [address] [place] [address] Phone #: ext- [phone] 05/18/2021 11:10 Patient: COREY CORTEZ Sex: F : 1990 Age: 30yMyotonic dystriophy.Hypothyroidism.Heart Disease.Hiatal Hernia. --11:40 05/18/21 Thelma Dennis R.N.The following entry was modified by Thelma Dennis R.N., 11:40 05/18/21Cardiomyopathy. --11:37 05/18/21 Thelma Dennis R.N.The following entry was modified by Thelma Dennis R.N., 11:44 05/18/21Cardiomyopathy. --11:44 05/18/21 Thelma Dennis R.N..ADDITIONAL SURGERIES:Appendectomy.Carcinoid tumor removed.Cholecystectomy..Endoscopy.Hemicolectomy.Hysterectomy.Left arm surgery.Loop recorder.Right hemicolectomy.Tubal Ligation.Upper Endoscopy. --11:40 05/18/21 Thelma Dennis R.N.HistorySOCIAL HX: Never smoker. No alcohol use or drug use. No recent travel. No known contact with a sickindividual. She was offered HIV testing but declined and hepatitis C testing but declined. She has nottraveled outside the [place]Infectious disease exposure: No infectious disease exposure. The patient was not exposed to Coronavirus.SELF HARM ASSESSMENT: Self harm assessment was performed. The patient answered "no" to thequestion(s) "Have you recently felt down, depressed, or hopeless?" and "Have you recently had thoughtsabout harming or killing others?".ABUSE ASSESSMENT: No report of abuse.NUTRITIONAL RISK ASSESSMENT: The nutritional risk assessment revealed no deficiencies.FUNCTIONAL ASSESSMENT: Functional assessment: no impairments noted.LEARNING NEEDS ASSESSMENT: The learning needs assessment revealed no barriers.FALL RISK ASSESSMENT: Fall risk assessment completed. No risk factors identified. 3 Clinical Report - Nurses [facility] Emergency Department [address] [place] [address] Phone #: ext- [phone] 05/18/2021 11:10 Patient: COREY CORTEZ Sex: F : 1990 Age: 30y SKIN INTEGRITY ASSESSMENT: Skin integrity risk assessment completed. No skin integrity risk identified. --11:42 05/18/21 Thelma Dennis R.N. PAST MEDICAL HX: Last normal menstrual period- hysterectomy. --11:42 05/18/21 Thelma Dennis R.N. Interventions Identification band on patient. To treatment room. --11:42 05/18/21 Thelma Dennis R.N.PHYSICAL [id number] 05/18/21. Ambulatory to room.GENERAL / NEURO / PSYCH: Alert. Oriented X 4. Appears in no acute distress.HEENT: Mucous membranes are pink.RESPIRATORY: Respirations not labored.CVS: Capillary refill less than 2 seconds.GI / : The patient has had nausea and diarrhea. Abdominal tenderness in the left upper quadrant.Bowel sounds within normal limits.SKIN: Skin is warm and dry. --13:57 05/18/21 Padmini Snow RN.NURSING PROGRESS NOTES12:30 05/18/21. Patient gowned. Reassurance given. Two patient identifiers checked. Bed placed inlowest position. Brakes of bed on. Patient ready for evaluation. --13:57 05/18/21 Padmini Snow RN 13:03 05/18/2021 Site #1 started via IV in the right forearm with an 20g angiocath; one attempt. Saline lock flushed with 5 mL saline. --13:13 05/18/21 Padmini Snow RN 13:13 05/18/2021 Started bag #1 1000 mL IV Fluids NS; bolus of 1000 mL over 1 hour(s) then at 75 mL/hr over 4 hour(s) via site #1 via IV pump. Allergies verified and confirmed 5 rights. IV patency established. IV site checked: no pain, redness, or swelling. IV flushed thoroughly pre- and post-medication administration. Information reviewed with patient including reason for taking this medication. Verbalizes understanding. --13:13 05/18/21 Padmini Snow RN 13:23 05/18/2021 Zofran (Ondansetron HCl) IVP 4 mg given via site #1. Allergies verified and confirmed 5 rights. IV patency established. IV site checked: no pain, redness, or swelling. IV flushed thoroughly pre- and post-medication administration. IVP given by RN. Information reviewed with patient including reason for taking this medication. Verbalizes understanding. --13:23 05/18/21 Padmini Snow RN 13:23 05/18/2021 Benadryl (diphenhydrAMINE HCl) IVP 25 mg given via site #1. Allergies verified and confirmed 5 rights. IV patency established. IV site checked: no pain, redness, or swelling. IV flushed thoroughly pre- and post-medication administration. IVP given by RN. Information reviewed with patient including reason for taking this medication and sedative warning. Verbalizes understanding. --13:23 05/18/21 Padmini Snow RN.DISPOSITION / DISCHARGE No learning barriers present. Discharge instructions provided and reviewed with the patient. Reviewed 4 Clinical Report - Nurses [facility] Emergency Department [address] [place] [address] Phone #: [phone] 05/18/2021 11:10 Patient: COREY CORTEZ Sex: F : 1990 Age: 30y medication(s). Prescription(s) sent electronically to pharmacy (gabapentin/dicyclomine). Patient verbalized understanding. Written instructions provided in Palestinian (Use meds as prescribed and f/u with PCP and GI in [place]. Spouse driving pt home.). The patient was discharged home. She left ambulatory and via private vehicle. Spouse driving. --17:13 05/18/21 Thelma Dennis R.N. 17:11 05/18/21. BP: 93/66. MAP: 75. HR: 65. RR: 16. O2 saturation: 97% on room air. Temp: 97.6 F. Pain level now: 12/27. --17:13 05/18/21 Thelma Dennis R.N. 14:30 05/18/2021 IV Fluids NS via IV site #1 Discontinued: bag #1 infused. Total amount infused: 1000 mL. IV patency established. IV site checked: no pain, redness, or swelling. IV flushed thoroughly. --17:14 05/18/21 Thelma Dennis R.N. 17:14 05/18/2021 Site #1 removed upon discharge. Pressure dressing and bandaid applied. --17:14 05/18/21 Thelma Dennis R.N. Departure time: 17:14 05/18/2021. --17:14 05/18/21 Thelma Dennis R.N.Locked/Released at 05/18/2021 17:14 by Thelma Dennis R.N. Name Value Range Interpretation Code Description Data Renee rce(s) Supporting Document(s) ID Date Data Source [id number] 05/18/2021 11:11:00 AM EDT [facility] 1 Clinical Report - Physicians/Mid Levels [facility] Emergency Department [address] [place] [address] Phone #: ext- [phone] 05/18/2021 11:10 Patient: COREY CORTEZ Sex: F : 1990 Age: 30y Time Seen: 12:35 05/18/2021; initial patient contact, initial documentation. Arrived- By private vehicle. Historian- patient. Disposition decision: 16:53 05/18/2021.HISTORY OF PRESENT ILLNESS Chief Complaint: ABDOMINAL PAIN. It is described as "pain", cramping and dull and it is described as located in the left upper quadrant. This started about 1 weeks and is still present. The patient has had nausea, vomiting and diarrhea. No loss of appetite. (N/V/D for 1 week, see's GI in [place]. Pain is LUQ, sharp, hx umbilical hernias. Sts that she had similar s/s earlier this month. Discussed with her cardiolgoy and had a appt with GI. Saw GI 2 wks ago. Sts thta s/s returned about a week ago and have wrosened. No other complaints currnelty. No CP, SOB, dyspnea, or palps.). Similar symptoms previously. Recent medical care: The patient was seen recently at another facility in a clinic.REVIEW OF SYSTEMSNo constipation, black stools, hematemesis, difficulty with urination or pain with urination. No bloodystools, fever, headache, sore throat or blurred vision. No chest pain, difficulty breathing, cough, joint painor skin rash. No chills or back pain. The patient has not had weight loss. All other systems reviewedand are negative.PAST HISTORYSee nurses notes. Problems: Cardiomyopathy. Dizziness. Cardiomegaly. Cardiomyopathy. Constipation. Av block. Atypical Chest Pain. Abdominal Pain. Abnormal Liver Function Test. A-V block. Cardiomegaly. Av block. 2 Clinical Report - Physicians/Mid [facility] Emergency Department [address] [place] [address] Phone #: ext- [phone] 05/18/2021 11:10 [id number] Sex: F : 1990 Age: 30yGallstone(s).Carcinoid tumor. (Removed)Myotonic dystrophy type I.Normal Exam.Myotonic dystrophy type 1.Myotonic dystrophy.Myotonic dystrophy.Sync ope.Peptic Ulcer Disease.Other Disease.Pelvic Pain.GI Disease.Av block.UTI - Urinary Tract Infection.Gastrodysmobility.Gastritis.GI Issues.Gastroesophageal Reflux Disease.Left bundle branch block.Myotonic dystriophy.Hypothyroidism.Heart Disease.Hiatal Hernia.Ovarian Cyst [Resolved].GI Bleeding [Resolved].Nephrolithiasis [Resolved].Folliculitis [Resolved].Additional Surgeries:Appendectomy.Carcinoid tumor removed.Cholecystectomy.C- Section.Endoscopy.Hemicolectomy.Hysterectomy.Left arm surgery.Loop recorder.Right hemicolectomy.Right hemicolectomy.Tubal Ligation.Upper Endoscopy.Medications: 3 Clinical Report - Physicians/Mid [facility] Emergency Department [address] [place] [address] Phone #: ext- [phone] 05/18/2021 11:10 Patient: COREY CORTEZ Sex: F : 1990 Age: 30y Mexiletine HCl Oral. Potassium Chloride Oral, as needed. Lasix Oral, as needed. Allergies: Aspirin.(Anaphylaxis) Reglan. (syncope) traMADol HCl. (seizure).SOCIAL HISTORYNever smoker. No alcohol use or drug use.ADDITIONAL NOTESThe nursing notes have been reviewed.PHYSICAL EXAMVital Signs: 05/18/2021 11:31 BP: 113/74. MAP: 87. HR: 68. RR: 18. O2 saturation: 95% on room air.Temp: 97.5 F. Pain level now: 01/26. Have been reviewed.Appearance: Alert. Oriented X3. No acute distress.ENT: Voice normal.Neck: Normal inspection.CVS: Normal heart rate and rhythm. No JVD present. Pulses normal. Capillary refill normal. Strongperipheral pulses. Heart sounds normal. Pulses: right radial 2+; left radial 2+; right dorsalis pedis 2+; leftdorsalis pedis 2+; right posterior tibial 2+; left posterior tibial 2+.Respiratory: Chest normal on inspection. No respiratory distress. Unlabored respirations. Lungs clear.Good chest movement. Breath sounds normal and equal.Abdomen: Soft. Mild tenderness in the left upper quadrant. Bowel sounds normal. No distention.Obese.Back: Normal inspection. No CVA tenderness.Skin: Skin warm and dry.Extremities: Extremities exhibit normal ROM. No lower extremity edema. No calf tenderness. No lowerextremity edema.Neuro: Awake. Alert. Mood/affect normal. Speech normal. No motor deficit. No sensory deficit.Psych: Cognition normal. Thought process and content normal. Insight and judgement normal.LABS, X-RAYS, AND EKGCT Abdomen - Pelvis: PROCEDURE INFORMATION:Exam: CT Abdomen And Pelvis With ContrastExam date and time: 05/18/2021 3:03 PMAge: 30 years oldClinical indication: Abdominal pain; Localized; Left upper quadrant (luq); Patient HX: Nvd x 1 wkswith pain in the luq.TECHNIQUE:Imaging protocol: Computed tomography of the abdomen and pelvis with contrast.Contrast material: ISOVUE 370; Contrast volume: 75 ml; Contrast route: INTRAVENOUS (IV); 4 Clinical Report - Physicians/Mid Levels [facility] Emergency Department [address] [place] [address] Phone #: ext- [phone] 05/18/2021 11:10 Patient: COREY CORTEZ Sex: F : 1990 Age: 30yCOMPARISON:CT ABD PELV W/O ORAL W/O IV 07/15/2020 7:50 PMFINDINGS:Liver: Normal. No mass.Gallbladder and bile ducts: The gallbladder has been removed. There is no biliary ductal dilatation.Pancreas: Normal. No ductal dilation.Spleen: Punctate calcifications are present within the spleen. These are compatible with oldgranulomatous disease. The spleen is otherwise unremarkable.Adrenal glands: Normal. No mass.Kidneys and ureters: Bilateral extrarenal pelvis ease are present within the kidneys. No stones orsolid lesion identified. There is no hydronephrosis.Stomach and bowel: The stomach and small bowel are decompressed. There is no bowelobstruction.Appendix: The appendix is not visualized and may have been removed.Intraperitoneal space: Unremarkable. No free air. No significant fluid collection.Vasculature: Unremarkable. No abdominal aortic aneurysm.Lymph nodes: Unremarkable. No enlarged lymph nod es.Urinary bladder: Unremarkable as visualized.Reproductive: The uterus appears to have been removed.Bones/joints: Unremarkable. No acute fracture.Soft tissues: Unremarkable.IMPRESSION:1. No acute abnormality within the abdomen to explain the left quadrant pain.2. Status post cholecystectomy without biliary tract obstruction.Thank you for allowing us to participate in the care of your patient.Dictated and Authenticated by: Alva Sim MD05/18/2021 3:59 PM Eastern Time ([facility]). The study was interpreted by the radiologist.Laboratory Tests:CBC w Diff: (DEON: 05/18/2021 13:35) ( MsgRcvd 05/18/2021 13:49) Final results Test Result Flag Units (Reference) CBC W/AUTOMATED DIFF COMPLETE BLOOD COUNT WBC 5.0 10/uL (4.2 - 11.0) RBC 4.37 10/uL (4.20 - 5.40) HEMOGLOBIN 14.0 g/dL (12.0 - 16.0) HEMATOCRIT 43.3 % (37.0 - 47.0) MCV 99.1 fL (81.0 - 101) MCH 32.0 pg (27.0 - 34.0) MCHC 32.3 g/dL (31.0 - 36.0) RDW 12.8 % (11.5 - 14.5) PLATELETS 163 10/uL (150 - 450) MPV 10.8 H fL (7.4 - 10.4) NEUT 69.0 % (37.0 - 80.0) LYMPH 21.8 L % (25.0 - 40.0) MONO 7.8 % (3.0 - 8.0) EOS 0.6 % (0.0 - 7.0) BASO 0.6 % (0.0 - 2.5) 5 Clinical Report - Physicians/Mid Levels [facility] Emergency Department [address] [place] [address] Phone #: [phone] 05/18/2021 11:10 Patient: COREY CORTEZ Sex: F : 1990 Age: 30y %IG 0.2 H % (0.0 - 0.0) %NRBC 0.0 % (0.0 - 0.0) #NEUT 3.44 10/uL (2.00 - 6.90) #LYMPH 1.09 10/uL (0.60 - 3.40) #MONO 0.39 10/uL (0.00 - 0.90) #EOS 0.03 10/uL (0.00 - 0.70) #BASO 0.03 10/uL (0.00 - 0.20) #IG 0.01 10/uL (0.00 - 0.10) #NRBC 0.00 10/uL (0.00 - 0.00) MANUAL DIFF NOT INDICATED RBC MORPH NOT INDICATEDCMP: (DEON: 05/18/2021 13:35) ( MsgRcvd 05/18/2021 14:22) Final results Test Result Flag Units (Reference) COMPREHENSIVE METABOLIC PANEL COMPREHENSIVE METABOLIC PANEL SODIUM 144 mEq/L (134 - 153) POTASSIUM 4.1 mEq/L (3.6 - 5.0) CHLORIDE 109 H mEq/L (98 - 107) CO2 23 MEQ/L (22 - 30) GLUCOSE 81 MG/DL (70 - 99) BUN 12 MG/DL (7 - 21) CREATININE 0.7 MG/DL (0.7 - 1.5) BUN/CREAT 17 (8 - 27) TOTAL PROTEIN 7.1 G/DL (6.3 - 8.2) ALBUMIN 4.3 G/DL (3.9 - 5.0) GLOBULIN 2.8 GM/DL (2.4 - 3.2) A/G RATIO 1.5 (0.8 - 2.0) CALCIUM 10.2 MG/DL (8.4 - 10.2) TOTAL BILI <0.7 MG/DL (0.2 - 1.3) ALKALINE PHOS 77 U/L (38 - 126) SGOT/AST 36 U/L (5 - 40) SGPT/ALT 26 U/L (7 - 56) ANION GAP 12.0 mmol/L (8.0 - 16.0) AGE 30 yrs NON-AA GFR >60 mL/min AFR AMER GFR >60 mL/min Male GFR Interprentation 20-49 yrs >60 mL/min Fczwlz20-61 yrs >56 mL/min Normal 60-69 yrs >49 mL/min Normal 70-79yrs>42 mL/min Normal 80 and above >35 mL/min Normal Female GFRInterpretation 20-39 yrs >60 mL/min Normal 40-49 yrs >58 mL/minNormal 50-59 yrs >51 mL/min Normal 60-69 yrs >45 mL/min Afsjrc97-18 yrs >39 mL/min Normal 80 and above >32 mL/min NormalLipase: (DEON: 05/18/2021 13:35) ( MsgRcvd 05/18/2021 14:22) Final results Test Result Flag Units (Reference) LIPASE 21 U/L (13 - 60)Lactic Acid: (DEON: 05/18/2021 13:35) ( MsgRcvd 05/18/2021 13:45) Final results Test Result Flag Units (Reference) LACTIC ACID 1.9 MMOL/L (0.2 - 2.2)Urinalysis: (DEON: 05/18/2021 14:25) ( MsgRcvd 05/18/2021 14:48) Final results Test Result Flag Units (Reference) URINALYSIS URINALYSIS 6 Clinical Report - Physicians/Mid Levels [facility] Emergency Department [address] [place] [address] Phone #: ext- [phone] 05/18/2021 11:10 Patient: COREY CORTEZ Sex: F : 1990 Age: 30y SOURCE R COLOR yellow (NORMAL: Yello CLARITY clear (NORMAL: Clear SPEC GRAVITY 1.010 (1.001 - 1.030 pH 5 (5 - 9) GLUCOSE NORM (N ORMAL: Negat BILIRUBIN NEG (NORMAL: Negat KETONE NEG (NORMAL: Negat PROTEIN NEG (NORMAL: Negat NITRITE NEG (NORMAL: Negat BLOOD NEG (NORMAL: Negat LEUK EST NEG (NORMAL: Negat UROBILINOGEN NOR (less than 1.0 MICROSCOPIC Not Indicate Monospot: (DEON: 05/18/2021 13:35) ( [facility] Final results Test Result Flag Units (Reference) MONO TEST NEGATIVE (NORMAL: NEGAT MONO REENTER NEGATIVE (NORMAL: NEGAT { KIT LOT # [id number] ){ KIT EXP DATE 02/15/22 ){ PROCEDURAL CONTROL VALID ) CT Abd PEL W/ IV Contrast Only: (DEON: 05/18/2021 12:37) ( [facility]18[facility] 15:25) In Progress CT ABD Reason(s): PENDING CMP; LUQ abd pain TRANSPORTATION: IV? IV?(Yes) O2? Oxygen?(No) Ro.PROGRESS AND PROCEDURESCourse of Care: Enter room and pt lying peacefully in bed in NAD. Patient stable. Denies any newissues, concerns, or complaints. VSS, NAD, AOx3, interacting well and appropriately, no use of accessory muscle, able to speak full sentences, stable, non-toxic looking. Pt sts she is here in the ER due to increased s/s of NVD. Has chronic abd pain and saw GI about 2 wks ago, but s/s worsenened. PE demos NV intact b/l UE and LE. Ntoed TTP of the LUQ. Will order labs and imaigng for furrt eval. pending results. Sts she had a colonscopy aobut 3 yrs ago and nformed she had irritation. [employer] inquries about allergies as her paperwork indicates contrast allergy. Pt had infomred me no contrast allergy. We enter together to inqurie and pt sts she has had IV contrast in the past wiht no issues or adverse effect. sts that the allergy is by ? barium and that causes upset stomach. 7 Clinical Report - Physicians/Mid Levels [facility] Emergency Department [address] [place] [address] Phone #: ext- [phone] 05/18/2021 11:10 Patient: COREY CORTEZ Sex: F : 1990 Age: 30y Reviewed [place] and noted previous IV contrast with no alleriges. pending results. Reviewed results. Discussed with attending. Agrees wiht discharge. En ter room and patient lying peacefully in bed in NAD. Patient stable. Denies any new issues, concerns, or complaints. Discussed results with pt. Discussed tx plan with pt. Discussed and counseled on stable condition. Discussed importance of a f/u with PCP. Discussed return to ER criteria. Answered their questions. Indicates and verbalizes that they understand, agree, and will comply with above. Denies any new questions or concerns. Patient has capacity to understand. Discharge decision based on the following: patient's condition is stable; patient's exam is stable; social support is adequate; transportation is available; follow-up is available. Discussed of OTC Motrin and Tylenol to control inflammation and pain management. Informed to follow directions on bottle that are appropriate for age and/or weight. Pt sts she takes Potassium PRN and last time was over a month ago; infomred to not take with todays med and expresses she understands and agrees. Disposition: Discharged home in good and improved condition. Condition: good and stable.CLINICAL IMPRESSION Chronic left upper quadrant abdominal pain of unknown cause. ; abnormal CT of the abdomen and pelvis. (Punctate calcifications are present within the spleen. These are compatible with old).INSTRUCTIONS Drink plenty of fluids. (Recommend to utilize OTC Motrin and Tylenol to control inflammation and pain management. Recommend to follow the instructions on the bottle and not to exceed. You indicated that you take potassium as needed. DO NOT TAKE with todays meds.). Warnings: GENERAL WARNINGS: Return or contact your physician immediately if your condition worsens or changes unexpectedly, if not improving as expected, or if other problems arise. 8 Clinical Report - Physicians/Mid Levels [facility] Emergency Department [address] [place] [address] Phone #: ext- [phone] 05/18/2021 11:10 --- Patient: COREY CORTEZ Sex: F : 1990 Age: 30y Your Current Medications: Your current home medications have been reviewed. CONTINUE TAKING THE FOLLOWING MEDICATIONS: Lasix Oral : prn. Mexiletine HCl Oral. Prescription monitor program consulted by me due to This report was requested by: Julio César Delgado Reference #: [id number]. Prescription does not exceed state maximum supply of medications CONTINUE TAKING THE FOLLOWING MEDICATIONS UNTIL YOU CHECK WITH YOUR PHYSICIAN: Potassium Chloride Oral : prn. Prescription Medications: dicyclomine 20 mg tablet Take 1 tablet three times a day for 5 days -- Dispense 15 tablet. Refills: 0. Substitution permitted. Note to Pharmacy - Remind to NOT take her potassium (sts last dose was last month, its a PRN med):USE Rx DISCOUNT CARD: $6.96, BIN:[id number], PCN [facility] #06 - [id number] ; [place] [address]. . gabapentin 100 mg capsule Take 1 capsule three times a day for 3 days -- Dispense 9 capsule. Refills: 0. Substitution permitted. Note to Pharmacy - USE Rx DISCOUNT CARD: $4.54, BIN:[id number], PCN:[id number], Group:[id number], ID:[id number]. [facility] #58 - [id number] ; [place] [address]. . Follow-up: Return to the emergency department as needed. Follow up with a nutrition assistant Recommend a colonscopy for eber duenasal. Call for the next available appointment. Understanding of the discharge instructions verbalized by patient.(Electronically signed by Julio César Delgaod P.A.-C 05/18/2021 21:57) Name Value Range Interpretation Code Description Data Renee rce(s) Supporting Document(s) ID Date Data Source [id number] 05/23/2021 10:02:00 AM EDT [facility] Name Value Range Interpretation Code Description Data Renee rce(s) Supporting Document(s) CULTURE URINE [facility] spital _CULTURE URINE_$$[id number]$$[id number]$$[id number]$$[id number]$$[id number]$$[id number]$$183376$$931088$$086948$$ 807185$$[id number]$$987332$$431464$$532078$$338169$$325148$$331181$$569677$$613764$$ 305594$$404969$$502146$$642717$$466403$$123907$$[id number]$$[id number] -- Continued on next page --Patient: ELI Long Order: [id number] Page 2Culture: CULTURE URINE Status: Final ==== -- Continued on next page --Patient: ELI Long Order: [id number] Page 2Culture: CULTURE URINE Status: Prelim =====$$[id number]$$[id number] DATE/TIME: 05/23/2021 09:06Culture: CULTURE URINE Status: FinalUrine Culture,Comprehensive: P1No growth in 36 - 48 hours. Previous result entered on 05/21/2021 12:58 ET No growth after 18-24 hours.P1 Test performed by: [facility] #: [id number] [address] [place] [address] [phone] [facility] [id number] Director : tJ Long MD NPI #:Lab Di miki : 05/22/[id number].XMT.SENT REF 05/22/21.0717.XMT.SENT REF 05/23/21.1002.XMT.SENT REF ID Date Data Source [id number] 05/18/2021 02:48:00 PM EDT [facility] Name Value Range Interpretation Code Description Data Renee rce(s) Supporting Document(s) URINALYSIS [facility]fred URINALYSIS SOURCE R [facility] COLOR yellow NORMAL: Yellow [facility] CLARITY clear NORMAL: Clear [facility] Specific gravity of Urine by Test strip 1.010 1.001 - 1.030 [facility] pH 5 5 - 9 [facility] Glucose [Mass/volume] in Urine by Test strip NORM NORMAL: Negat darrell [facility] Bilirubin.total [Presence] in Urine by Test strip NEG NORMAL: Negative [facility] Ketones [Presence] in Urine by Test strip NEG NORMAL: Negative [facility] Protein [Mass/volume] in Urine by Test strip NEG NORMAL: Negat darrell [facility] Nitrite [Presence] in Urine by Test strip NEG NORMAL: Negative [facility] BLOOD NEG NORMAL: Negative [facility] LEUK EST NEG NORMAL: Negative [facility] Urobilinogen [Mass/volume] in Urine by Test strip NOR less maura n 1.0 mg/dL [facility] MICROSCOPIC Not Indicate [facility] ID Date Data Source [id number] 05/18/2021 01:45:00 PM EDT [facility] Name Value Range Interpretation Code Description Data Renee rce(s) Supporting Document(s) Lactate [Moles/volume] in Serum or Plasma 1.9 MMOL/L 0.2 - 2.2 [facility] ID Date Data Source [id number] 05/18/2021 01:49:00 PM EDT [facility] Name Value Range Interpretation Code Description Data Renee rce(s) Supporting Document(s) CBC W/AUTOMATED DIFF [facility] COMPLETE BLOOD COUNT Leukocytes [#/volume] in Blood by Automated count 5.0 10^3/uL 4.2 - 1 1.0 [facility] Erythrocytes [#/volume] in Blood by Automated count 4.37 10^6/uL 4. 20 - 5.40 [facility] Hemoglobin [Mass/volume] in Blood 14.0 g/dL 12.0 - 16.0 [facility] Hematocrit [Volume Fraction] of Blood by Automated count 43.3 % 3 7.0 - 47.0 [facility] Erythrocyte mean corpuscular volume [Entitic volume] by Auto mated count 99.1 fL 81.0 - 101 [facility] Erythrocyte mean corpuscular hemoglobin [Entitic mass] by Automated count 32.0 pg 27.0 - 34.0 [facility] Erythrocyte mean corpuscular hemoglobin concentration [Mass/volume] by Automated count 32.3 g/dL 31.0 - 36.0 [facility] Erythrocyte distribution width [Ratio] by Automated count 12.8 % 11.5 - 14.5 [facility] Platelets [#/volume] in Blood by Automated count 163 10^3/uL 150 - 45 0 [facility] Platelet mean volume [Entitic volume] in Blood by Automated count 10.8 fL 7.4 - 10.4 H [facility] Neutrophils/100 leukocytes in Blood by Automated count 69.0 % 37. 0 - 80.0 [facility] Lymphocytes/100 leukocytes in Blood by Manual count 21.8 % 25.0 - 40.0 L [facility] Monocytes/100 leukocytes in Blood by Automated count 7.8 % 3.0 - 8.0 [facility] Eosinophils/100 leukocytes in Blood by Automated count 0.6 % 0.0 - 7.0 [facility] Basophils/100 leukocytes in Blood by Automated count 0.6 % 0.0 - 2.5 [facility] %IG 0.2 % 0.0 - 0.0 [facility] %NRBC 0.0 % 0.0 - 0.0 [facility] al Neutrophils [#/volume] in Blood by Automated count 3.44 10^3/uL 2.00 - 6.90 [facility] Lymphocytes [#/volume] in Blood by Automated count 1.09 10^3/uL 0.60 - 3.40 [facility] Monocytes [#/volume] in Blood by Automated count 0.39 10^3/uL 0.00 - 0.90 [facility] Eosinophils [#/volume] in Blood by Automated count 0.03 10^3/uL 0.00 - 0.70 [facility] Basophils [#/volume] in Blood by Automated count 0.03 10^3/uL 0.00 - 0.20 [facility] #IG 0.01 10^3/uL 0.00 - 0.10 [facility] ospital #NRBC 0.00 10^3/uL 0.00 - 0.00 [facility] ospital MANUAL DIFF NOT INDICATED [facility] RBC MORPH NOT INDICATED [facility] spital ID Date Data Source [id number] 05/18/2021 02:22:00 PM EDT [facility] Name Value Range Interpretation Code Description Data Renee rce(s) Supporting Document(s) COMPREHENSIVE METABOLIC PANEL [facility] COMPREHENSIVE METABOLIC PANEL Sodium [Moles/volume] in Serum or Plasma 144 mEq/L 134 - 153 [facility] Potassium [Moles/volume] in Serum or Plasma 4.1 mEq/L 3.6 - 5.0 [facility] Chloride [Moles/volume] in Serum or Plasma 109 mEq/L 98 - 107 H [facility] Carbon dioxide, total [Moles/volume] in Serum or Plasma 23 MEQ/L 22 - 30 [facility] Glucose [Mass/volume] in Serum or Plasma 81 MG/DL 70 - 99 [facility] BUN 12 MG/DL 7 - 21 [facility] Creatinine [Mass/volume] in Serum or Plasma 0.7 MG/DL 0.7 - 1.5 [facility] BUN/CREAT 17 8 - 27 [facility] Protein [Mass/volume] in Serum or Plasma 7.1 G/DL 6.3 - 8.2 [facility] Albumin [Mass/volume] in Serum or Plasma 4.3 G/DL 3.9 - 5.0 [facility] Globulin [Mass/volume] in Serum by calculation 2.8 GM/DL 2.4 - 3.2 [facility] A/G RATIO 1.5 0.8 - 2.0 [facility] Calcium [Mass/volume] in Serum or Plasma 10.2 MG/DL 8.4 - 10.2 [facility] Bilirubin.total [Mass/volume] in Serum or Plasma <0.7 MG/DL 0.2 - 1.3 [facility] Alkaline phosphatase [Enzymatic activity/volume] in Serum or Plasma 77 U/L 38 - 126 [facility] Aspartate aminotransferase [Enzymatic activity/volume] in Serum or Plasma 36 U/L 5 - 40 [facility] Alanine aminotransferase [Enzymatic activity/volume] in Seru m or Plasma 26 U/L 7 - 56 [facility] Anion gap 3 in Serum or Plasma 12.0 mmol/L 8.0 - 16.0 [facility] AGE 30 yrs [facility] al NON-AA GFR >60 mL/min [facility] ital AFR AMER GFR >60 mL/min [facility] Male GFR In terprentation 20-49 yrs >60 mL/min Normal 50-59 yrs >56 mL/min Normal 60-69 yrs >49 mL/min Normal 70-79yrs >42 mL/min Normal 80 and above >35 mL/min Normal Female GFR Interpretation 20-39 yrs >60 mL/min Normal 40-49 yrs >58 mL/min Normal 50-59 yrs >51 mL/min Normal 60-69 yrs >45 mL/min Normal 70-79 yrs >39 mL/min Normal 80 and above >32 mL/min Normal ID Date Data Source [id number] 05/18/2021 02:22:00 PM EDT [facility] Name Value Range Interpretation Code Description Data Renee rce(s) Supporting Document(s) Lipase [Enzymatic activity/volume] in Serum or Plasma 21 U/L 13 - 60 [facility] ID Date Data Source [id number] 05/18/2021 02:25:00 PM EDT [facility] Name Value Range Interpretation Code Description Data Renee rce(s) Supporting Document(s) MONO TEST NEGATIVE NORMAL: NEGATIVE [facility] MONO REENTER NEGATIVE NORMAL: NEGATIVE [facility] { KIT LOT # [id number] ){ KIT EXP DATE 02/15/22 ){ PROCEDURAL CONTROL VALID ) ID Date Data Source [id number] 05/08/2021 02:27:41 PM EDT [facility] Name Value Range Interpretation Code Description Data Renee rce(s) Supporting Document(s) Progress Note [facility] HUIZAs0qLyDTOzPf38/JVNthIPVgf6ErRFzqNSg0HFeeDYGtF4ZoDBS6fH2hLSA0FPeSWdPnMtHdNLRs lbm [file] ICAgICAgICAgICAgICAgICAgICAgICAgICAgICAgICAgICAgICAgICAgICAgICAgICAgICAgICAgICAg ICAgICAgICAgICAgICAgICAgICAgICAgICAgICAgIC PmWEJiCVCgBZ8HQXGmATIvOGVcONVrEZLvSJRhJLNbCWCdBGDiNDSxMVGeJVHoQGTcWQWvWMQlJSRjQK XgHICeSZAlWTHwKKCqEBNuCYAwZTHyXYZxOPRjVGJfVCIlCPQnFLBaHIMbQTDgBCNsPI1DRKQnURMkZT AgICAgICAgICAgICAgICAgICAgICAgICAgICAgICAg ICAgICAgICAgICAgICAgICAgICAgICAgICAgICAgICAgICAgICAgICAgICAgICAgICAgICAgICAgICAg LY0SBGRuQIMjVNZuLTVpNTVaFWNuEVImOLLmBRGwCXQiKJPzHOJsHZCsZXPjTBUzUBVbSOXvQAOhNVOa ICAgICAgICAgICAgICAgICAgICAgICAgICAgICAgIC GoEEAxVDDqZYAmTJ8JNXSlVIJdQIWkVPNoLYLlUSDzARUjCXUxVRJcZRVoLRPoKSNbRXFhEALsKWEnRX CyNTPgCZWkSXKeYSVuDIUwUVMpFDOeXEDdKPJhVEQqKHWjNHYfLDVnSRIgANEgFNBeRFGxPT5PECNhXH AgICAgICAgICAgICAgICAgICAgICAgICAgICAgICAg ICAgICAgICAgICAgICAgICAgICAgICAgICAgICAgICAgICAgICAgICAgICAgICAgICAgICAgICAgICAg RSLiLD3EQEJbDCSpPFTeRSRfCIUgVHJbQJPqZRMgTPLfTNEnIOMjYSAaAMAjKGTiSNOjCOGyLKMgWCKk ICAgICAgICAgICAgICAgICAgICAgICAgICAgICAgIC LjFHNzVSKeOQUgVYNgJC7XXTVpKBUiNWUbGCUzSOVbJYSzNYAvWMOeUUWbKVYiLMGcWOYmHEQjNIXtUC ZqEJJaTQBsYOUfOKBwZPEfMMAqQBFqQCZzOINiTWJwLTXzHFThDBHyEQCfDWMqHTRwPBEzEGNoYG0RWE AgICAgICAgICAgICAgICAgICAgICAgICAgICAgICAg ICAgICAgICAgICAgICAgICAgICAgICAgICAgICAgICAgICAgICAgICAgICAgICAgICAgICAgICAgICAg YMVcWTJgMV7SSFPdLIAyUTIkKVEcOEGpPHBvEWQcVVEeNRXiSQJaEGXoZGUuSKNkPLIdZRPvJHPaFBZg ICAgICAgICAgICAgICAgICAgICAgICAgICAgICAgIC JzUNHzGNKlUWRhZPCtHIDvSV4BHD96uBQfr3R5XVBmSP5guye/Uc3YCQztnjPefVHqQY2NHzZeBK3fno 8AOaIbYU3bmx1CEUiDLrPgW5N4yZRqECLdVPAUOvAkX88rKEixBp31FGjzMWLhCwTcVKc3Dg3SKyCmF3 ldWMUoSzG2KVRyPdI9KDGkHxS1GVFlVkJjNOOySYUl BM1ZMONmJ413zaYtOU1MAt5GUzItAL4fik7FFnvtPBBjBskBSpj6QDtoXJ7DvUKplMOsHRDePMDQDnWh R8uox9IrKlbcZWNNZGydYO2Fb0RgvLMsCEb+Gq4VWE2nh5FbCLxzDGAgCL4tns6FKZfWZuZuE0VqkMsj RPAch1jeROGwKN9imZDnFHW8KXFwTYHlPLWkoNA1IW mvTRBZIsEomOZlCT1dDD9bSDVjMEI0CeCkPPLWHO5FHCBcGJJkaDQgWHIvYAKQTV5MEPyqJWC1LJRlgj QkuZVzOSeoLV1ABJNuspQqVnijDATDUVn+Pr8NJW6zr5RjUDsrVUFzLC7fvo9NONoQUdWuC3H9yFCmS2 N2SAbzRk4KQIUkDBNpZpMcGKYTAKjjVN9LBV9btdC6 YC8ClCZvUWGdSKAneFJwMHy6N45mlSKtKJhaEJ9ZTKQ+Ivett+Hl4VCDBtLSXmELVaDzJnAVRPPhQqD5Ip Z0TUk1LoU4CxZM69qKcvwnRiQGffGT1XKP4uJHHxHRCOVJ8AmAHkbL6raiQzLFXlGBJSBqBuF43kzZGn ZBRtUMT9ECGyOp2RZVGhO4SfxbOxbCpdqbMhFMVaJZ SGQY4FLOvbouIdbRUhrFcgNK69oSimNM8PIn6DUoEkTV4cnz3XyKOcHy3XDCLxDN5WXHHoKJKtBQXlFC K0VDTzFmOfTTdvHOKiGPUeWTK5VUQnILXhII2AUxLdIYGhGTOqFBpoVVDqGGJxew6WSOHtNAR5Zlw2CW SlDIBfQQZxWCmcOUMjOQMnLGF2XRKxMBLoHJ6BDgDc PONlOND3ZZzoFJLaRZMcef7WFKNeZYUhPXFwQkSxBMGgCFLxFMkwSRCgUCP0UUS1PQOcYGCxBS8AHqRb QKRiGMsfHoBuGCJiCRDbdl4NCRHoAGBjLeGsPNXzOGGkAHBtAPhkAXHcUFEyYEHuKHQeIJXjZT4YPmTb ZNVpKLUyRJGlXXDdYSAkkl2NJIFrRZUeDMHzSGDnNH IaCJBfUCcwFNWcXZZ5Sou4VCUyHWNhBP5VOfXrZITaTPO9YkUoYNTdZCWvrx4UWOFsMTFyFto0EZVhSY HnQSAwCNzcTXWrDOY7TvU0DZLjTXUoFT9HQwXwTLRzNSl6KQkyTDWxCWTgey8ULNNfJAYgFFQiCsUyQO ZgLMBiPXpeTCImPZMyKvY7PGOoJQKmZV1TEcEpBJJj LQL7UaFaKBZrPBEpxm0VNLRjYNF3Mwa5QPAcMMOaVFXoCLbpVDGqLBR2EIfiDSAySAAsEV0MPdYwVMHc KQS8SWnxUXGiYFPkcs4JCUIaWWR9XKQ0FQAkYUWgQMBuBEjlBKOhUCD6CKF2DHVfZWUyXJ4KUhIsGJSt IMCvEwypUKCzJIFddt6VZJHgQHL1VkA3BKLdIYQqQA GlCNmyMEMdBQS7HKJlPOMdLCBxAM7NLkUiLSYfLSl0TzKkFRFnLVQcem5OTPYbUPA7YRLdGdSlWHCaTH QuKWd0fdXlqUVsDDv9XP0GF9SodfCdFbXDYu0Gu632MMSpMSArNq9YC3bdGb4fJOPpLQMZAa3PQYy9Fx y1XIP9H3LxKZPgLGT7YuE5CSm7RgLcCjv3ZQSwPMu+ SRr4HTe7VdMxKhQ4I0GzNTYqZBS6MWWqIPS1IQtkY8N0Jf6kMGDKXv2+RPeixLJkfBcqDOOWNbN8OiF2 HAgpSUJEXo6V ID Date Data Source [id number] 05/01/2021 08:57:35 AM EDT [facility] Name Value Range Interpretation Code Description Data Renee rce(s) Supporting Document(s) Progress Note [facility] TAMSLq8uIkZFWrSm27/QVLymHXLku8CvXWgpECp2SXhnHUSeS1DpDRS5pQ9aKAS3GEtDWwAcBqEfFKHz lbm [file] ICAgICAgICAgICAgICAgICAgICAgICAgICAgICAgIC SaVCCgXUYjMEOgDEJzUHDtEJTsLEZrUVQhKOWxXNJpTI5QERUsDVDoKWGmKMAtNGLwVTJmLDJeCBDsLZ AgICAgICAgICAgICAgICAgICAgICAgICAgICAgICAgICAgICAgICAgICAgICAgICAgICAgICAgICAgIC NmHIFfGQRaYSTmXNJwJL1OVIKvFORbWMAqUVLtYIBx ICAgICAgICAgICAgICAgICAgICAgICAgICAgICAgICAgICAgICAgICAgICAgICAgICAgICAgICAgICAg RKVtJBJrIRPoHUFfCWCrHVWeEFEzUBIvUZ3MAGZwXASgNKDpTGVxFXMaBAYsMLQiWVOvRODmPNAlMDLy ICAgICAgICAgICAgICAgICAgICAgICAgICAgICAgIC AeAGKbMMFjJRNmPPAsUXKlEYItRLTrFRIzTTLeGSKxCUPuFO6OGYMaBPEuUOGaRLIyRKCyMBSsZYTnRL AgICAgICAgICAgICAgICAgICAgICAgICAgICAgICAgICAgICAgICAgICAgICAgICAgICAgICAgICAgIC QzNXWvSPNzVWGzYCYpHMGcMD8BSXKjJXXqEGWcHMId ICAgICAgICAgICAgICAgICAgICAgICAgICAgICAgICAgICAgICAgICAgICAgICAgICAgICAgICAgICAg FUWqFRDgNAOnVNZvOARdSDHaKDPuRTPhKJJfFI9ZUAOdOTFyGHKzQDZvXHBhWQZnJDAqEWXeIAPnATRj ICAgICAgICAgICAgICAgICAgICAgICAgICAgICAgIC GdNJVaUUOgBGVbWEGzNEGbJKLvVJZtDIUvFBFbHHBwEMLjVBHpGG0UERToUENrCZHyJUNxIRJwAAPpMU AgICAgICAgICAgICAgICAgICAgICAgICAgICAgICAgICAgICAgICAgICAgICAgICAgICAgICAgICAgIC QzHRTsBULaYHVhOXLkNOIdLZHzKQ2LPZQzXLBsOODd ICAgICAgICAgICAgICAgICAgICAgICAgICAgICAgICAgICAgICAgICAgICAgICAgICAgICAgICAgICAg ATSmIEAwYBIlRWItKJQyDNGdHWEwSJJiAUNrNEGuYF6ACISlKKHnRZWaYEDgLFYvUXNgWXQdSCChNNNw ICAgICAgICAgICAgICAgICAgICAgICAgICAgICAgIC FvFHTuKBXdYOPnSKOuEGCdZVOpVCJzMRHwJDRyPHLnDJHxZZQdWTDqDH1NHR37oKDap8I2DXMaNG9qzy c/Gh4EXMbiguTwgMNvMV7JGxFrQO2gwa5GGmNpYE8bsc2YXWqZMuXqK7A7dETlGORjZUGCGlZnD20bRA oyLq90HMzbETLhHaCvFSa7Xs8LBkWvV3phJTCjViA9 HRGhUnI7ZBUlPaV4AKRgGwFrAVEvWKSrACYkBRBYLNS0EXZfCuJwIvGzTJHoIVjcMMQISQ1UJbClV5Kc fW25FWxIVd2+CRbaiwOkIypDNmB6IRBwj6OqYLt8DR3PTYWtIzodi5EjDDEsGNTVKTcgRI9NYWJ1MCXo LKRrHt8GHTYwD548agBsTY4FQz9BAsDwAV3nmw8NUR JuWABfZgwEPrv6ZUffKX5YdHEmZLePok8wyxHkftFUq2GbchLofVFSFXCuEQL5UIpjqUNgPB8UUbQyCL KgWXRbTj2oAYKdLGWzCaJ6HHTABT5OYJNvEZYxiMPsKPYuVTHNJO4FMSvnFSP4JFGkykQqfLWzBMqtWU 9QYXJlbnQgMzkgMCBSDQo+Hl7TQF9gf9VgSKz9VEId NR3tvu6XCYxUKiHyX2C0tZKfG7G0XIibPg0ERSTlHMVnZagkXWJMPMcjEO4CSQ4zdgK2UQ1WlWLoJKAv QNRdkVAwUSa1G97tcYViEKgyVJ1KPLA+Ivett+Ge8YSNVaPGLtXTIvEoUfJQASWkMcN2CxE0LZy5ZfQ1Ny PD45rSmgwtEaVMubFF6SBG8cSQXfYRDTTJ3QqXRxiZ 3tviNlHZWbVOLMIaAzY69nlCYoXVUuNTU6VHFnBx0NUECxA2PmjzTdkMgivmLxNVNiIYMXII0FFSgijb XifSIcfZiwHQ29rKlfBZ5BAj2TEgKsAK4rzo9XhTOxGq3KZSX7Dc8GUMBtSEMtLVLyGEP4NGHfZdQbES mdTESrXLOwZQJ2GBLhWJNbXJ3VRlSwVOSqMRP5GPIb QQZyMODiyu0EKSUuRVU8FpWoVNJmDFDaGQLpYYywDUIiIVCfGYX0MQUkWPClZP2YYaQrESRaYXTsCMAa JIQtODIlvv4ADALdXNXiSJOqLRVmNCNaJSFwEHttUAKvROP7HWK6CGWgRNSqGO4HBkJiIMQyOFlxIPVn XJYvGNEqyc8INAVcFYTjVwa1HRVmGMDuYPSsWXprOS OfPXMiERObADGoEOKyXS6RZoXcNLBmCYTmJCJeIFToOSPjvq3QJKJpXKEqNqByIgFpTUEfAUWgBMskBD VqWEQ3NIt9WHYwQLDlCI3MSvTyVMJaPRilJXTbOTHyBWXbqo5TXQNrZGUpFtPkWNUhWFDuYDQsKFosNZ YhEQCyMVKnFLNsIIYuFL2JLbMjLLMlWmF8GZrxPVDp HXQsaw3AZUGdWHFcFhQ1OTXjMCDlEKWdOWasTUZvISA5KGZ4OLBdHGKyJH2YMkApZSSpTpknUOXnBCKv VIHywe9ZREWwEKXiTEJyENZbWROjLQKnTRaaVVYmPWP2PjHrGXUxTCVxLT9GFkQbPAPbBcusKMQxBZQs UPAona4IFAScELSdRBD4PeEuVOLnIBWfHZxuMPGxJY DaZVK1ZOLhLANtFX5LSrYaCYNlNiE4KOYhEOOlMZOrnx2KBLMyRUC5OhM6LfEjWWNnCMHdQMhhXMLxBI VeRQv3LAIyADDuMZ0VEgMvBGQtXHE1XTeuGMIaYXNbkg3XOQDsDUK1Tsy4QzYjJXCqVBNcDRclWOVjEF RkATQiKIYsQRJnRP3CAkYxGUYqGBDzTIygXYBmIQNq ne7JSMPdZJU7IOImINTdDDKxGRIqPZenDOAvNTO4XYPoSTPqIQIiYW4ETbNwJMXlFHTuRENzIDJpQTCb xd3LCWMzOQS4TXA7GHIeBTKqYMTdMVirJPUeNFX2BuVxXVAsWQGjBD0FXtBvMOUjUBFuYrZdQZZhRLSe tz9TWHMjZHS8HgD8IANbXTXdXNOzUIyqVSFxHEJ9Ct LkORHaCOFdKK6KDiHcEYHnQGi5MkCvBVLlWUGeim1PfBIqjKldek3CHNmJOx3RoCcrIZZxRNoeRb9kaK D5IRFvQJNMFx2HngRhDMLzKVZHKOfmZAKkHQTpLePfTlScFUM5VJz3VMI7BMVeQuv7FGajLOJcANAzGq H3JZYpF1VtEqSwUdujPPQ6IpF6CdMoLSe9JUEaIWKg MmY+UU6kIZe+Yv0Qk4IoleK0pmVpCLb2SWJxTI6ORVAIM2TTAc== ID Date Data Source [id number] 04/25/2021 04:15:39 PM EDT [facility] Name Value Range Interpretation Code Description Data Renee rce(s) Supporting Document(s) Thyrotropin [Units/volume] in Serum or Plasma 4.010 u[IU]/mL 0.270-4. 200 [facility] ID Date Data Source [id number] 04/25/2021 03:46:19 PM EDT [facility] Value Range Interpretation Code Description Data Renee rce(s) Supporting Document(s) Hemoglobin A1c/Hemoglobin.total in Blood by HPLC 5.0 % 4.0-6.0 [facility] (NOTE)<5.7% Average risk of diabetes (ADA)5.7-6.4% Increased risk of diabetes(ADA)>/= 6.5% Diagnostic for diabetes(ADA) Glucose mean value [Mass/volume] in Blood Estimated fr om glycated hemoglobin 97 mg/dL <126 [facility] ID Date Data Source [id number] 04/25/2021 04:22:49 PM [facility] Value Range Interpretation Code Description Data Renee rce(s) Supporting Document(s) Calcidiol [Mass/volume] in Serum or Plasma 16 ng/mL >30 L [facility] ID Date Data Source [id number] 04/08/2021 01:53:55 PM [facility] Value Range Interpretation Code Description Data Renee rce(s) Supporting Document(s) Progress Note [facility] IFZOOj0rTwJPNqZd99/EZYiwJPXdq9OxPHyqKAs1FKcqRFRtZ8GvMRX9sA4xLVK0PXaRHvKcHfEtOAFw [facility] [file] ICAgICAgICAgICAgICAgICAgICAgICAgICAgICAgICAgICAgICAgICAgICAgICAgICAgICAgICAgICAg ICAgICAgICAgICANCiAgICAgICAgICAgICAgICAgICAgICAgICAgICAgICAgICAgICAgICAgICAgICAg ICAgICAgICAgICAgICAgICAgICAgICAgICAgICAgIC AgICAgICAgICAgICAgICAgICAgICANCiAgICAgICAgICAgICAgICAgICAgICAgICAgICAgICAgICAgIC AgICAgICAgICAgICAgICAgICAgICAgICAgICAgICAgICAgICAgICAgICAgICAgICAgICAgICAgICAgIC AgICANCiAgICAgICAgICAgICAgICAgICAgICAgICAg ICAgICAgICAgICAgICAgICAgICAgICAgICAgICAgICAgICAgICAgICAgICAgICAgICAgICAgICAgICAg ICAgICAgICAgICAgICANCiAgICAgICAgICAgICAgICAgICAgICAgICAgICAgICAgICAgICAgICAgICAg ICAgICAgICAgICAgICAgICAgICAgICAgICAgICAgIC AgICAgICAgICAgICAgICAgICAgICAgICANCiAgICAgICAgICAgICAgICAgICAgICAgICAgICAgICAgIC AgICAgICAgICAgICAgICAgICAgICAgICAgICAgICAgICAgICAgICAgICAgICAgICAgICAgICAgICAgIC AgICAgICANCiAgICAgICAgICAgICAgICAgICAgICAg ICAgICAgICAgICAgICAgICAgICAgICAgICAgICAgICAgICAgICAgICAgICAgICAgICAgICAgICAgICAg ICAgICAgICAgICAgICAgICANCiAgICAgICAgICAgICAgICAgICAgICAgICAgICAgICAgICAgICAgICAg ICAgICAgICAgICAgICAgICAgICAgICAgICAgICAgIC AgICAgICAgICAgICAgICAgICAgICAgICAgICANCiAgICAgICAgICAgICAgICAgICAgICAgICAgICAgIC AgICAgICAgICAgICAgICAgICAgICAgICAgICAgICAgICAgICAgICAgICAgICAgICAgICAgICAgICAgIC AgICAgICAgICANCiAgICAgICAgICAgICAgICAgICAg ICAgICAgICAgICAgICAgICAgICAgICAgICAgICAgICAgICAgICAgICAgICAgICAgICAgICAgICAgICAg ICAgICAgICAgICAgICAgICAgICANCjw/pSLmU4svyFMmqrR2B6kvSf0OTc1JGJ3gy5XdBMMxZHuytlSe GpiNOjAbKMKgSvxURcd6ETbeYT1HyIKcZ9ItK6CrZC okXH3AWVOpIVFcsNGaXHUbHOUkLuB0DEBdCXzvXK4LqRDeFXzuILOdXKXzLvEfZJNpVIFuWMAhUSQbKB PTJBJzTKYhZhRcQNEkEMTvHJbiTVWGOWA7ZRHlJgBeQDzhOK2Dx0PuaEE7QKy+Im6NYD0gt1BiKNsdEV NrJQ0mda0JOJdGLrLvJ0NilaN3MNOqZQJjMh7LSYWk AZQaaIG7HQNqEVJJQsDjT4EekI25IEPJVf3+BBudvtZnCyxQPhNbUYSso8BbYQs5TK7PKMTlWGa2kPTy QADsO7Lbp7HnJk28ALFdKsvgAy2aUDA0DZtcC7MkqVPtyHfqWFGvQMOkZV9cVm9eBYMlWLH7TySuEOQL ZQ6MQUAoYNWipROlAPTmTMAVJA5RHKttBNT9EPLpmq PejYHoTKerBG4ZLJMjdrCwGorwJNBBMQk+Em6PLC1sf1WaSBj1KHBmXL4qes0ZMPyEYnHjG2P6dOHsJ3 X7DRnsAf6ALOCsOXYxSkzoMYYSXWllXV2SGX6gdlX3CH9NxHDqFZLbTHDgmBIoMWs0B68rhFOwSNimTQ 0KICA+Ivett+Tg5ANEAwWQOuVQLeTkMzBDUMZaMoS7Fq D2YOs1WcN6AnJF01aFcydyJwSSumFC3QZY2eUMIfFSXKIT9RoBXakM7cjjWiVZSgLWLTYcHfP36fuZRs KPFhHEX0NJXiDp0NFXXlS9CmixIkcLcwynPzGAJmIBPMRJ7XYZnbadTpmQYozGgcQX99wVutPC3HZg0H OgBfNQ1fdz9UbPLfCo3FEIV8Uc7ATRSmTERrSBMeDS N8LVRdBqOgKAexJONxJIZwDKZ5XATeDYIoNQ2NUgFtZRGzROU1CXZhSWZaAXVhek3JFVTfFNU4HHT5Sf LoYRUqCCAvQRoyYQDfORWmIFW0YCJtOGWpPP7KGrHvOAUnUNKlMOAlAPMgTSZmjs7FALUeUXTpIBDsLa MkLLOtEBRzAXikOEIjRDX5ZWO5KPDlCXVuFV6CZoPu JQJdFHt9IuNoFWCqYGBwjm5WMOGePCTkGIc5GwIzDVSjLGNkPMkkHSYmSZLgBBE6OFMcIWIwCR7VVaNt YRXmOVCyAOOzFBJaGMQwbh1UAKOjKPQlDSX0KVIaIKGuMTMfPXmaTNGxXAO8CLa5DAZdMKNzLP3EWqWz VCQqIJglYSEgZVVcQXYtis5PFOPyXGXhCBUmBIUfZH GxLFWwQRqiGDDvJHTnLuL9YRPmZFGxWZ7CJiNzNMPwYgTmPxauVFTvIMXdsr8KRECrEGEgAgE8SBYeWT SzJHHeGXfjGJNlJFJ9HwE7XFObKQHtEQ3ITeOqLNKcHqT5EuIoHACcPFVoxg5DAKAzFXOlZQv3QJPhCQ ErKWLdXMaoPWUaLUG8OOghWBAvCRNbAS4SJwLeAEDv YfItWwVtKNZoNZZzec0BKMBfEKItHuAnZJItQAUgQYIdFTctFDXiIHU2QWR4ZEQaFDVhXU1LJlZaZEXt Lsj4UIWqHDJyHUWhyf0KMWBqDYSkWFT7UJYoMGJfRCIfLHtlBUAbHYO8XbT2VIGeGDAeYK7ILsSpCVNm Trs6BbifOZFrYSWpru8ZBDVlVGJpDUvmZVZjYJYaSN UvQJghLPSkAQG1AUl6IILaAMQcXS9YWzMpFOTeMAA7ZLmfKJDrGEChzu1IKXXfHZK5TGTzFrRoLLJhKU DgIRvbIOVwNWWwPju7RFArEUOwPF8XQxNlEGCwYVJjShFgSNMrEPPnhc9EVZEkIJE5QiYmUJIgEYZzDF NxCBwpRKOwUTUyXQw5PWOtSLAiVM0YEaIuMZOyGBJg PxHdPSUkRMQoub1YKNJhFVY6DDIjLxZgYEUkXQGaVJaoRMRyIKM0WEx5OGYkDCQzHB1TDqGfTZCdIYW6 ZhriLNEiHADyjm4FuAXhhMzhkk5DRJiORh9CbRzlXDIePPcaZk8zwYU0ZWImMIEMQl2EkwXwBYXiPJXO ZYiyAHFuLPGvCYwkCBY7D3OaPKS3EyFsR0P8Q3OiWH svI7H3RuU7UeX8HRNtY0B5KXV9XzX4KCtwCNS1Eyd3SZJ2SLDoPLG8Xsl+SY0dZQq+Gs5Ll5KjpnT2fu WfURi7HLh7Si3ERWACI0HZDr== ID Date Data Source [id number] 03/28/2021 08:45:00 PM EDT [facility] Name Value Range Interpretation Code Description Data Renee rce(s) Supporting Document(s) SARS-CoV-2 RNA Resp Ql HUNG+probe NOT DETECTED [facility] This lab was ordered by NESHA hicks and reported by NESHA Cordon. ID Date Data Source [id number] 03/22/2021 05:40:47 PM EDT [facility] CT ABDOMEN PELVIS WITH CONTRAST [id number] [place] RESULTInterpreted by:Cindi Claudio MDCLINICAL INDICATION: Evaluate right collecting system.TECHNIQUE: Helical axial images of the abdomen and pelvis were obtained and displayed at 5 and 1.25 mm intervals. Automated dose lowering techniques and/or adjustment according to patient size were utilized for this exam. Intravenous contrast was administered.COMPARISON: CT abdomen and pelvis dated 02/17/2018.FINDINGS:LUNG BASES: The lung bases are clear. There is no pleural disease. The visualized cardiac structures appear normal.LIVER: The liver is normal in size and attenuation. There are no focal lesions.GALLBLADDER: Patient is status post cholecystectomy.BILE DUCTS: There is no intrahepatic or extrahepatic biliary dilation.PANCREAS: Pancreas is normal. There is no mass, ductal dilatation or surrounding inflammation.SPLEEN: There are punctate calcified granulomas in the spleen. There are 2 splenules.ADRENALS: The adrenals are normal in size and shape.KIDNEYS: There is normal enhancement and excretion of contrast in both kidneys. There is a right extrarenal pelvis with tortuosity of the ureter in the proximal segment which appears unchanged from prior study. There is a left renal pelvis. There is no hydronephrosis, renal stone, or focal lesion in either kidney. Visualized ureters are normal.STOMACH AND BOWEL: The stomach, duodenum, and small bowel are normal. There is no bowel wall thickening or dilated bowel loops. There are stable post surgical changes in the right colon.LYMPH NODES: There is no lymphadenopathy.BLADDER: The bladder is normal without wall thickening or bladder stones.REPRODUCTIVE ORGANS: Patient is status post hysterectomy.VESSELS: The abdominal aorta is normal in course and caliber.ABDOMINAL WALL: There is a small fat-containing umbilical hernia.FREE FLUID/AIR: There is no evidence of free fluid or free air.BONES: There is no acute fracture or dislocation. There are no suspicious lytic or blastic osseous lesions.IMPRESSION:1. No evidence of hydronephrosis. 2. Bilateral extrarenal pelves with mild tortuosity of the proximal right ureter, which is stable.3. Additional chronic findings as described above.This document has been electronically signed by Luis Rosenberg MD on 03/22/2021 5:38 PM Name Value Range Interpretation Code Description Data Renee rce(s) Supporting Document(s) ID Date Data Source [id number] 03/22/2021 03:37:04 PM EDT [facility] Name Value Range Interpretation Code Description Data [facility] rce(s) Supporting Document(s) Progress Note [facility] HDVAEu2jVcADShQu13/EQShwLWQni7FlDBjePXa4STueMWYiV9UwMEY3oD8qNPC7RElDNrWsXhKhUBWm [facility] [file] CoWODdVpMvMU4TNt9LQrD8ZFJ7yQQqWd9NUUWpRYOUBhRuCO2GKYy= ID Date Data Source [id number] 03/22/2021 03:20:22 PM EDT [facility] NM KIDNEY FUNCTION WITH PHARM - [id number] AL RESULTInterpreted by:Alvin Marrero MDINDICATION: 30-year-old female here for evaluation of the right collecting system.TECHNIQUE: Following intravenous injection of 5.13 mCi of Tc 99m labeled DTPA, immediate flow images were obtained over the kidneys in the posterior projection. Next, functional images were obtained in the same projection over 30 minutes. Imaging was again performed using the same technique after the intravenous injection of 20 mg of furosemide.FINDINGS: Renal flow and radiopharmaceutical uptake are prompt and symmetric. There is no evidence of obstruction. Following Lasix there is bilateral symmetrical excretion and elimination.The T-1/2 is 4.9 minutes on the right, and 3.9 minutes on the left.IMPRESSION: 1. Symmetrical excretion and elimination of radiotracer with above-mentioned T1/2 values following administration of Lasix.2. No evidence of obstruction.This document has been electronically signed by Yaya Garcia MD on 03/22/2021 3:18 PM Name Value Range Interpretation Code Description Data Renee rce(s) Supporting Document(s) ID Date Data Source [id number] 03/15/2021 03:28:00 PM EDT [facility] Name Value Range Interpretation Code Description Data Renee rce(s) Supporting Document(s) History and Physical [facility] UDWBAd1oJoMIXxXj83/WWOqeYHQng3UgLZkbAGs4ZUbaYUZiF2WoJFL5tI3tIUW2GRcATkOrEsMwQKG7 lbm NnYvjKTgDlVTFnInaYJlScNSyeVjpaaBAiJO3KrKD3VOUgB85xPUIvQRAyI7SeVEBiQUP+Ea5DGADndX VmZS4AHgtJ9Y8ax4g3Wn/yhn8XuIeYbfNhIYDxDB0rZ812ndNZqzrstDvpoyQy9bgL0siX/vvyAfJuV9 DLWjxDlTZ5wTgepX1QOd7ORgAP7H/+o5rGfUR4Pj7p txwyOmdt4td/gKWxsZ5kP/1rY2BDpRc5uV0c+Zf8g196hmw0S3ypuWjPC0jOK6FoBA5JmZmeD540T0o6 zJY/wVUklq9eIG2Qx7i0/nBfJdrTgfnlu+/U8X/B0tK3ZIah81Iw15L8jDfhKiI321uRw2uZTUuZryJY 6zIA3UfqTi73AmpWFwtA3O+7ZmVOVsEnMlWOEh0AP2 Uqi7/RcPdZ8kw8LSTj3LbHnHYvcpi7d3CADCtLz7Eyu8xks6r9kJHLor3iP1e3ijAuCh1vWM68Bsq0fN 3JSzWIS+V5rTNGVevsgFDEYyrv8YTC7frwG9MEdsO4h3tyGK2VlncteUo0mV2jS0cDAdvr2G+y+eRCaJ nb9hnZW6TK46locRym8RoVtjMrp4J97epb9E7aIe8m dCNp2YLo7kp0r2sPFiKza5TqC38x01j85IUcrphR2rYT0UlEnhR5f3GQO2kCEwpdAcRoNb3cAQdz7YUp efQCcg7H/1SDUVyDjNA+zab87kPJ1tgjSxK+F2jaTrWHNEOWtYIeMRBX+F9GgmsZPwX7xb5eXU6zPF9T FsIrZ2Mbzdzr0cMI7MMmarMVV0rJ7xol7o8ghXVEwJ HIZfr2PT0uaL+VF2lDbvuH9wyJyP7EBRbOmLc/J43wGc4iYnAruthGiyDiqZ9WuLddNykygEBzfBrzUO J6kbidaON7tLhF0hbpI8OQTjf91NeecX6FSXOIfICCJmjsdVkMq8qEWEzRsV6g6r3fXa2K0W7z2IO6g3 dq9q6fJ9Q4VJ+SN+l0o+rn240Ph/s64h0281y2ku/f [file] /1tTn+SzkoS1Y9gFCH0kD3bKKSRQXN7Ok9pkQyN/rough carpenter 8Gxw8ds9W4ZlRfW1Svs9Ww3hNFoaQFMG5lHBC+1T3AuqEtNLiSe3K07ozkzGn9YOqC/K06rLg7ubcZzC mpUOkw6K8AbRus2/IaXePswugzgWXMpiTinNmvXg5q2vunjaRk8XegxURPtgq8W0HR85EFQnrahKyvzG XdAjLwfPQWsD2leqImkGTN60xeEY5g7bnXcymi6qx4 FpUf3zgnh123bp7tqC5y42veAFbBQ9Qjv59JZtcVsrJ8mEHs9fP+IBVpgNVBS0k2adR7R8Tlr+s+Oq/P iLk8vnc9W6WbwLanf3Rh+dSzXoAr07wJa1T9ACuM59OjTPr33HgL7/K98L1eiBPh26eWKlve3KPls4Uh /FP3cPv76QQ/Qc/q3W1+/01uio0287SBdGC4H90g8R [file] AgICAgICAgICAgICAgICAgICAgICAgICAgICAgICAgICAgICAgICAgICAgICAgICAgICAgICAgICAgIC EkWGBbRDSwKXNeTPEmEUHaWXPaPG3DCMVrTTYyRRXy ICAgICAgICAgICAgICAgICAgICAgICAgICAgICAgICAgICAgICAgICAgICAgICAgICAgICAgICAgICAg VUOyFLSgRLXjIMZxXKTaPIJyNWLrVNOxDUTdCHFfOS0WUMXqGNDxEJGqEHAoAYHnXAGoQCBaCQItCOUa ICAgICAgICAgICAgICAgICAgICAgICAgICAgICAgIC RoBEFnFUOdSCTkLJQdXMZhMWQmAERrXSXtRKWuZLEvCSAmSGZsFHAtRI8GZUSaJZVxYRDhVJCtGYKwZD AgICAgICAgICAgICAgICAgICAgICAgICAgICAgICAgICAgICAgICAgICAgICAgICAgICAgICAgICAgIC MdYIFuZFWkPZXuHUPzSRVhIDUgGTSiMT5ODSQiIVXx ICAgICAgICAgICAgICAgICAgICAgICAgICAgICAgICAgICAgICAgICAgICAgICAgICAgICAgICAgICAg ILXeDMLlWCGgOSIfJAMxALNtZMCyKNYsTOSuQJKmWAKmCB7WWZFzXDJpAUDcEEIbRHAkBVXaRDFnGVNu ICAgICAgICAgICAgICAgICAgICAgICAgICAgICAgIC HzHINeSVMeYPHlJTJjMBGhMZGxWAIcHEGeZQKdSCVtXMIvZCXbLOBsWTEtKA9QHJEoQDVmVRJyEIEoQH AgICAgICAgICAgICAgICAgICAgICAgICAgICAgICAgICAgICAgICAgICAgICAgICAgICAgICAgICAgIC JsDKSwICTtZZHpJYAaCCGwRWPqJHMoEEEsUF3VMWQs ICAgICAgICAgICAgICAgICAgICAgICAgICAgICAgICAgICAgICAgICAgICAgICAgICAgICAgICAgICAg KDGwEOYkEISbPJUxHHIaXCCaURRcMJGuDOHjORXgQYNyYBDuWJ4QLEKwZVHqNEDjYASpWLNbKSAyRBNl ICAgICAgICAgICAgICAgICAgICAgICAgICAgICAgIC DsJRQgCWHrEOYsFDCbSQYzTWDsQMYbNRRrOIPqPYSjZLLmPDEuTTKnISIbWCPeGP7HCRBxNGJxEMFrOI AgICAgICAgICAgICAgICAgICAgICAgICAgICAgICAgICAgICAgICAgICAgICAgICAgICAgICAgICAgIC EsKOMqMEIvKDOfTQSjMOKnAASoDICzMLKyEIYvMS3F WT47cRVru5C7PMXmUK9owhj/Qj1PLEhaflFudDUdYE3KNvHpDN0ecz6WNbRqWN6feg6GGDlSMlTyM4S3 gDJtBHWmRHCCVnLrJ79eNCvgMn42WSevODNxJsLqLKr2Yf4SEsExD5qrTTKyHhC3MDRtEaZ2YQOnJbV9 ETPhXmWxOTThIAAkKVEoJMJWWOR2HCRkIfLcILgwWR 0Na1LsnRQ7ZRa+Df8KMQ7ox6YdJUm7DSTwSA0mtm6JIRrBMzCsL1XgrsN7TWYjHPBhOk2UBWHnURZglR N6CHBtQEFXLqObQ0MlaG07IOWPMs1+QTxjmgIhYefCMmFsIRUbe7OzBWy6LE9KTSGxSLn2dFYiIDAAGB L1CLRipCLbOZFEQXogqIaxDG9TFUJ8WSepNQUxKiBq YSEwADxhMXOWAFuMZoYhQ5Jzc6BpYlY0CASdEcVmGHtvVTAqNbP0UX12kSukAY6FYDBoVMOoDK60KPHp HXPgXa2WRt9MJpJfDJ3cwp4ZBDZxILLfCaoSFrm4VXjdNA8HhYWcL7EfnXEyf2qZJoAqF3DKQOI4FFZo Sk7LMBSwPhBuJGCgWRetTT3eKFDiQURLmYwhuzY5KF 7SCY3xnqUbMT6SHiXqKu8hBg2ILgQlM4StZ2NiCYBiJTAGGHaoWY9JUDjcLQ7fCO5Cb3LTrHQosU8qfc 8YTOPvFAYkDmxgox8ZYftzJ4Q4cQgqMXQtBQHwQYCVHCndEJ1JOPUaRPJ5QALiFKHaUZESXmGlY01tDJ 5MS4Exd84wMqO4FMFsNhWlWBhlAF96wDldfhMdrSVx eSyiSB0MCg7+SZmyagIxBmcQTgyuSMXMKwAiOCQHZbAaXITtSVEgIIJaHeI1VjNbZy4ZOSAlHSUeAAAg JeCkOGKsWEIeFTbiRDGqHPWxCiynTWVuZOEhEE1WCpNfCQWtXkE9MzMoSGSpKMCeox3BFHFoAGAuIMC8 ImXoSFOqIBVuPDwbJACtYPN0IxHkEKMoGIFxCO4ZVi TbOVAzAXO1UGpuKBKaHMHgtw1CDYYjRYAxHuM1XUMeJUFiITGyRBnxZCZsZCQ3DHf9OZNoNMGmNA0ECm QrUZFjOTZ3NEXmXFJeRJCtjv7WHVTiNOStRXh9LYWoXUWxXDDqYBqdWIElEMJoXMEjZXTwOLAlKW4KCi EiIYPxQEErRJljBKKjQUJple2SVJXfDJFmFqpxLAKo HERlOGHyNUgzDQLlPHU3VGD7DTKdOLNxMZ5UMjLpLKGlWWo6QYFcNYJhDVSvzu9VUBObUGCzJLe5ZlEv NHQcRSEeDHchQGBwADV3DCGkTPNiDKFyCU9BKaDmCBStVnXkFAslLXJtBXFxrk6VNJCmMWLsCOMgIdAc GJOoRVIwPOqaRKBeQCUoYeGrXCQxQGTxDO8VQzGbOK JgYbF4TiUiHUZjDERhgy4DDXPuCGOxOSG8AGClRTLePSEcQTkxINLeWQWnUqIbFMKpDFPcRM9MGdBvUX NfVvR2IMsnTPZbISIhcr6SYVYvPPWhKhk2XJEdQARsNDTjLPcyAFFrDLD4Rpy2PSCyHUXhGH5LLxCzQF JgBmF9OIFiEQJjOQTnvm2BLJNjALMoXAdaZoIfPBBa NZPcGAeeKGDhSHS8JFSrRHBiIILtMA1DNyCtIBJhQkYaAPfjTDStPQWleu9IHRYiJJAgAwWlDrBiUQWo SFBaREikAZJjOZL5TVAbBOFfPXZeCX9TNrLvTTPvMbR2PNauFLUnLUPseo1INCWbJBF8NWp9WrWtVZNo LSOyVUuqFVRmSKAtXMuhAZHyEAVqET2VXzDvWBYiWv UmRSOiAXGnKBVwkm5XXMDuLEO2KBWbDPDiDDMiXAMeUUpvDEHpIWWgWbcnERYiJRSjSO1WBbLzZRXiVn ZfFaIrTQFiJOYqoe6EVJQvNFA7AfV1QRBfBDHrXZWzMErxFYEmIIVaDxSgQWBwJXVrNT4LOuVeTWReMy H6RWddJMBbLLBtak8LzSXicWghgu4YRXgJVo0TtKtz IEVeSXyxTx8egET9DoUiMCNAXn3QkiViMRBgFFMMNFyzBJBbBVD9QpMsR0B7UhL2SmJtG8J0AKKeZUSf NmAtVZJpIoY9OdO0TlT5XPFqTEx1QFKrBJYoIrmlCVRmKzE7DrCkKvTkJol+GZ7eEDv+Ix4Cv4SoqhU5 bmWaYDt1XcE1Yh0KNCCBP5WDPk== ID Date Data Source [id number] 03/15/2021 06:17:50 AM EDT [facility] Name Value Range Interpretation Code Description Data Renee rce(s) Supporting Document(s) EKG [facility] EDPKGu9pXaIUMzRvg3OsOuKqJDYyGF2went7O4C8sEEkD4HiyXVaf4ieR3TvA8XiIKHhYFPXNJ8SrKBj jb2 [file] f30qPv/9+c+n8D//+pd//PWf/vF//Wn+/PnH//jrf/vHX/a5zFD7/Mf5+Pu///Kf/xrj+WPx+eff/hamilton mJ9///7zX/+AEfUgPc7GKOznOdRqsZtDeNdhQUesSb zDbs5qUwQhtBDBub9SjpO3Kfumfrmnr48N7LaMs8s6q5DcTepc7y+v/XLpl9d+prOMw49z+dB6Qv928x lcs2697CpWxxVvebv1koMtCamOwt+l7QaLzrRuF7d4flYcEbkEgW+n3klZi0dvI6g+6nnqXt9irX7o+t Vcd1s4b4c+delXr/3q0q9e+7HoV198p3h/nv1PpU3U 2q8h/Yl9O4R9DIm/gaXt6D6KQdPcggWd8H5M4idg/NzYb1Z3DaTgaE8J4GqWgqF4D2w/LdzGlW7k/Yof I2wfnCKsoX1E+sWJt2e2jiKqSru2kV+d8crXe5sf43H+gmspWe9lpR3V+jV/bLwa+srcMt5rkU9i/target aircraft controller r5R+Ze1XSr+u4htgL8b2rvMrcJ4E0MfBaoV6K86VN4 2+ar+O3IwNve7o44j9AwXaQqm1zQ+b2nmYo0op91W+zfnnWd6muD0R+rV+1+WyMP+fyY1agz/D8wck6c c8uB8PXq/Pz/r86AL9/FdJmc0Og72h/egi/tue8i5d830OYtgP+FeYfGDQo74XNhEFLhjL+vHzxMb7Py MPGL31TRBvm3jw8IBjEiZLRFnFdHiIHeJbqwPZ8y4/ uGiJKz1uDYw9c9wLoAh2nPIDmiZ/5MXXyuuZPcBnLMwZTAzzgt7vMUXYIu6WXOBb+tNKVEa4z5ORrQh4 cBVTsmI/bMWUrtgPXzElLPbDWEwpi/1wFlPSYj+dwUM11S8vICAo4qFlQTyS/XAXU/JiP+gYaM4IQ39d UDX8c3AYGSc4tVkYJmC/VGoHzzs4o74CXntJG1Fi6w NlTMmM/oPZBecgN5tZtEDFX7QjzSA6y8bYTP27cPzMBmZ/hVdV4Au8udWqR0+1xEd2bP08W3qw2OzzxS Ic+2S7azRNklkKGojxL4UdTbBoc+hCMy81XWhpPQm+jT5o2yIkkzAHv+lK17fIMmizQIdJm062vtklxU /OK8k93Zs4qAEt+2E+ptTHfriPKfmxH/ZjSn/sh/+Y RsV8JGKhCJd+OJApCbIfFmRKg+bNS7iRVcowZrJPkF84gFmWnt92YSqF2LqElyRk/+FDrnzIf/iQKx/y Lk9cqst6vi+58iH/4UOufMh/+JArH/IfPuTKh/vWV6tjSv/gB512lZ/8wKzw2g7+5MqH/IcPufIh/+FD rnzIf/iQKx/dXv7okmi7r3+taJV66tUIYQp/t0dTNm l++ke3wI61gmnRgs1PLwhg+n8iQQx4i3p0Vkrnaf+58iH/4UOufMh/+JArH/IfPuTKh/bCL4hlJu/hQ6 58yH/7nQny6e9+5MqH/IcPufIh/+FDrnzIf/iQKx/hJm1vebt1jd+58iH/4UOufMh/+JArH/IfPuTKh/ lYH6mdBe/eF644cH/9vOyi1l8+5MqH/IcPufIh/+FD rnzIf/iQKx/uXc5syju8al+58iH/4UOufMh/+JArH/IfPuTKh/sIF4rlXj/zQ527dU/3qFed0a6+5MqH /IcPufIh/+FDrnzIf/hQ/6LJKj/zsDpfDl3AQxDnDlgWU2MSD+Hf75sAcEChCkhdroJFa1xFmW5h++Pa H9f+eBzTjW8E+0M9M89196P/JxhNkF0J+3U4R75015 Q/BigSmM4E+3R6D23186S/CxnYoR5j+2Y4O44530S/FfoRyU4i+3J4W09168M/NzzJzC4h+0L1Y6R7Q7 [file] 6ImJrnNZZ1Hy3XzyZlEPMrFZZARx7Xu132GOSaUOVRVup+TbvldFMeoDrfZCSDXDEvVWNBIRTFK7Z= ID Date Data Source [id number] 03/14/2021 06:51:46 AM EDT [facility] NT INFORMATIONPatient MRN Name Date of Age Gend*PT [id number] Corey Cortez 1990 30 years F OBSPT Location Admission Date/Time Visit ID Attending [id number] 03/11/21 0733 --- --- EPI ID CSN Admitting Provider [id number] Davdi Gonzalez MD([id number]) Attestation signed by Derek Lynne MD at 03/14/2021 6:51 AMI have reviewed the notes, assessments, and/or procedures performed by OSIEL Felix, I concur with her documentation of Corey Cortez. [facility] DISCHARGE SUMMARYPatient Name: Corey Cortez of : 1990 Age 30 yearsPrimary Physician: Tyrone Garcia MD PCP Ubhhvttfe Date: 03/11/2021 Discharge Date: 03/13/2021 leading 14She will be discharged from 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 NTG given by EMS did not provide relief. [facility]was just [facility] 02[facility] with CP, ruled out with serialtroponins/EKGs, and underwent TTE. Loop recorder was placed during admissiongiven apparent history of syncope. Initial work up in the ED included negativetroponin, CXR showing NAD, and EKG demonstrating NSR with 1st deg AVB and LBBB(chronic).Patient went for stress test which showed questionable ischemia versus infarct,this was discussed with fmd teacher Dr. Hidalgo, who advises no furtherintervention and to keep upcoming appointment with cardiology as an outpatient.D-dimer negative.She also complained of left upper quadrant pain after eating, [facility], had a CT abdomen done which was unremarkablediscussed with GI who recommended outpatient follow-up. Left upper quadrant painhas improved.She was noted to have periods of hypotension and was given boluses yesterday andthis morning, likely due to dehydration from poor p.o. intake, blood pressurehas improved patient is asymptomatic, ordered IV fluid to be given overnighthowever she stated feeling much better, denies dizziness, lightheadedness andwould like to go home.Discharge Exam:Blood Pressure: BP: 95/65 Pulse: Heart Rate: 71Temperature: Temp: 98.1 F Respirations: Resp: 12Admission Weight: Weight: (!) 118.8 kg (262 lb) O2 Saturation: SpO2: 98 %Discharge Weight: Weight: (!) 114.6 kg (252 lb 9.6 oz) BMI: Body mass index is37.3 kg/m .Diagnostics:Imaging:Procedure Performed: / XR CHEST PA AND LATERALExam Date: 03/11/2021 09:45MRN: [id number] Number: [id number] Class: EmergencyAccount #: [id number] Reason for Exam: chest pain Technique: PA and lateral views obtained. Comparison: None Findings: The lungs are clear. There is no pleural effusion or pneu mothorax.The cardiomediastinal silhouette is unremarkable. No acute osseous abnormalityis seen. IMPRESSIONIMPRESSION: No acute abnormality.Procedure Performed: / NM CARDIAC GATED SPEC IMG EFWMExam Date: 03/12/2021 15:22MRN: [id number] Number: [id number] Class: OutpatientAccount #: [id number] Reason for Exam: chest pain, LBBB Technique: Pharmacologic stress test was performed. LEXISCAN was administeredunder the direction of the Cardiology Department. For the resting study thepatient received 10 mCi of CARDIOLITE intravenously. For the pharmacologicstress portion the patient received 35 mCi of CARDIOLITE intravenously. GatedSPECT imaging was performed at rest and stress. Gated wall motion study and ejection fraction were also performed. Comparison:None Findings: Myocardial Perfusion Imaging: There is a minimal reversible defect in extent andseverity anterior wall from the mid ventricle to the apex. No other defectsevident. There is no evidence of transient ischemic dilation. Gated Wall Motion Study and Ejection Fraction: The left ventricular ejectionfraction measures 39 there is global hypokinesis with relative sparing of theanterior wall. IMPRESSIONIMPRESSION: Mild reversible defect anterior wall nerve percent mild inducibleischemia versus breast attenuation artifact. Left ventricular ejection fractionis 39 %. Procedure Performed: / CT ABDOMEN PELVIS WO CONTRASTExam Date: 03/12/2021 18:26MRN: [id number] Number: [id number] Class: OutpatientAccount #: [id number] Reason for Exam: LUQ pain, nausea, vomiting Technique: Helical axial images were obtained without IV contrast.One or more of the following dose reduction techniqueswere utilized; automated exposure control, dose modulation, technique adjustmentbased on patient size and iterativereconstruction algorithms. Multiplanar reconstructions were created andreviewed. This study was performed without oral or intravenous contrast at thespecific request of the referring clinician. Comparison: None Findings: Minimal atelectasis is noted in the left lower lobe. The liver spleenand pancreas appear intact. Surgical clips are present in the right upperquadrant. Kidneys and adrenal glands are within normal limits. Visualized bowel loops areintact. Surgical suture material is identified at the base of the cecum. Theappendix is not visualized. There are no inflammatory changes in the right lowerquadrant. There appears to have been a prior hysterectomy. IMPRESSIONIMPRESSION: No acute intra-abdominal abnormality noted.Recent Labs:BMP:Lab ResultsComponent Value Date NA 146 (H) 03/13/2021 K 4.2 03/13/2021 CL 115 (H) 03/13/2021 CO2 26 03/13/2021 ANIONGAP 5 (L) 03/13/2021 CALCIUM 9.0 03/13/2021 GLU 77 03/13/2021 BUN 12 03/13/2021 CREATININE 0.70 03/13/2021 GFRAA >60 03/13/2021 GFRNONAA >60 03/13/2021BC with Diff:Lab ResultsComponent Value Date WBC 4.2 03/13/2021 RBC 4.02 03/13/2021 HGB 13.0 03/13/2021 HCT 39.0 03/13/2021 MCV 97.1 (H) 03/13/2021 MCH 32.4 (H) 03/13/2021 MCHC 33.3 03/13/2021 RDW 13.6 03/13/2021 PLT 153 03/13/2021 MPV 9.3 03/13/2021 LYMPHOPCT 27.9 03/11/2021 MONOPCT 5.5 03/11/2021 EOSPCT 1.0 03/11/2021 BASOPCT 0.4 03/11/2021 NEUTROABS 3.0 03/11/2021 MONOABS 0.3 03/11/2021 BASOSABS 0.0 03/11/2021Mirisara Hernandez, NP6:49 PMTotal time spent for discharge on date of discharge: 40 minutes Name Value Range Interpretation Code Description Data Renee rce(s) Supporting Document(s) ID Date Data Source [id number] 03/13/2021 03:07:33 PM EDT [facility] Name Value Range Interpretation Code Description Data Renee rce(s) Supporting Document(s) WBC 4.2 10*3/uL (4.1-11.0) [facility] [place] RBC 4.02 10*6/uL (4.00-5.40) [facility] HGB 13.0 g/dL (12.0-16.0) [facility] HCT 39.0 % (36.0-47.0) [facility] [place] [place] [address] [place] [id number] MCV 97.1 fL (80.0-95.0) H [facility] MCH 32.4 pg (27.0-32.0) H [facility] MCHC 33.3 g/dL (32.0-36.0) [facility] RDW 13.6 % (10.5-14.5) [facility] PLT 153 10*3/uL (150-450) [facility] MPV 9.3 fL (7.1-10.7) [facility] ID Date Data Source [id number] 03/13/2021 03:31:31 PM EDT [facility] Name Value Range Interpretation Code Description Data Renee rce(s) Supporting Document(s) LIPASE 70 U/L (65-230) [facility] ID Date Data Source [id number] 03/13/2021 03:31:31 PM EDT [facility] Name Value Range Interpretation Code Description Data Renee rce(s) Supporting Document(s) SODIUM 146 mmol/L (136-145) H [facility] POTASSIUM 4.2 mmol/L (3.6-5.2) [facility] CHLORIDE 115 mmol/L (100-108) H [facility] CO2 26 mmol/L (22-31) [facility] ANION GAP 5 mmol/L (7-16) L [facility] UREA NITROGEN 12 mg/dL (7-24) [facility] CREATININE 0.70 mg/dL (0.60-1.00) [facility] BUN/CREAT RATIO 17.1 RATIO (10.0-20.0) [facility] GLUCOSE 77 mg/dL (70-99) [facility] CALCIUM 9.0 mg/dL (8.4-10.2) [facility] TOTAL PROTEIN 6.6 g/dL (6.4-8.2) [facility] ALBUMIN 3.4 g/dL (3.5-4.6) L [facility] GLOBULIN 3.2 g/dL (2.7-4.3) [facility] ALB/GLOB RATIO 1.1 RATIO [facility] ALKALINE PHOSPHATASE 68 U/L (45-117) [facility] BILIRUBIN,TOTAL 0.4 mg/dL (0.0-1.0) [facility] PLEASE NOTE:Total bilirubin results may be falselyelevated in patients taking Eltrombopag. AST (SGOT) 16 U/L (11-39) [facility] ALT (SGPT) 24 U/L (12-78) [facility] GFR >60 ml/min/1.73m2 (>59) [facility] GFR ( AMER) >60 ml/min/1.73m2 (>59) [facility] GFR INTERPRETATION [facility] --NORMAL KIDNEY FUNCTION OR MILD DISEASE - GFR >OR= 60CHRONIC KIDNEY DISEASE - GFR 15 - 59RENAL FAILURE - GFR <15 Est. GFR calculation based on the MDRDstudy equation, which assumes a steadystate for creatinine. Est. GFR should notbe used for medication dosing. ID Date Data Source [id number] 03/12/2021 06:31:10 PM EDT [address] [address]Wkxkiqj Name: COREY KELLEYB: 1990Sex: FOrdering Provider: CINDY SOAuthorizing Prov: CINDY SOReferrgee Provider: Procedure Performed: / CT ABDOMEN PELVIS WO CONTRASTExam Date: 03/12/2021 18:26MRN: [id number] Number: [id number] Class: OutpatientAccount #: [id number] for Exam: LUQ pain, nausea, vomitingTechnique: Helical axial images were obtained without IV contrast.One or more of the following dose reduction techniqueswere utilized; automated exposure control, dose modulation, technique adjustment based on patient size and iterativereconstruction algorithms. Multiplanar reconstructions were created and reviewed. This study was performed without oral or intravenous contrast at the specific request of the referring clinician.Comparison: NoneFindings: Minimal atelectasis is noted in the left lower lobe. The liver spleen and pancreas appear intact. Surgical clips are present in the right upper quadrant.Kidneys and adrenal glands are within normal limits. Visualized bowel loops are intact. Surgical suture material is identified at the base of the cecum. The appendix is not visualized. There are no inflammatory changes in the right lower quadrant.There appears to have been a prior hysterectomy.IMPRESSION: No acute intra-abdominal abnormality noted.Report electronically signed by: SURY PARMAR On 03/12/2021 6:31 PMWorkstation ID: [id number] Name Value Range Interpretation Code Description Data Renee rce(s) Supporting Document(s) ID Date Data Source [id number] 03/13/2021 10:40:27 AM EDT [facility] Name Value Range Interpretation Code Description Data Renee rce(s) Supporting Document(s) WBC 4.8 10*3/uL (4.1-11.0) [facility] [place] RBC 4.25 10*6/uL (4.00-5.40) [facility] HGB 13.7 g/dL (12.0-16.0) [facility] HCT 41.5 % (36.0-47.0) [facility] PERFORMED AT [address] [place] [address] [place] [address] MCV 97.7 fL (80.0-95.0) H [facility] MCH 32.3 pg (27.0-32.0) H [facility] MCHC 33.1 g/dL (32.0-36.0) [facility] RDW 13.5 % (10.5-14.5) [facility] PLT 157 10*3/uL (150-450) [facility] MPV 10.2 fL (7.1-10.7) [facility] ID Date Data Source [id number] 03/13/2021 11:08:45 AM EDT [facility] Name Value Range Interpretation Code Description Data Renee rce(s) Supporting Document(s) SODIUM 144 mmol/L (136-145) [facility] POTASSIUM 4.5 mmol/L (3.6-5.2) [facility] CHLORIDE 112 mmol/L (100-108) H [facility] CO2 26 mmol/L (22-31) [facility] ANION GAP 6 mmol/L (7-16) L [facility] UREA NITROGEN 12 mg/dL (7-24) [facility] CREATININE 0.69 mg/dL (0.60-1.00) [facility] BUN/CREAT RATIO 17.4 RATIO (10.0-20.0) [facility] GLUCOSE 67 mg/dL (70-99) L [facility] CALCIUM 9.0 mg/dL (8.4-10.2) [facility] TOTAL PROTEIN 7.2 g/dL (6.4-8.2) [facility] ALBUMIN 3.7 g/dL (3.5-4.6) [facility] GLOBULIN 3.5 g/dL (2.7-4.3) [facility] ALB/GLOB RATIO 1.1 RATIO [facility] ALKALINE PHOSPHATASE 78 U/L (45-117) [facility] BILIRUBIN,TOTAL 0.5 mg/dL (0.0-1.0) [facility] PLEASE NOTE:Total bilirubin results may be falselyelevated in patients taking Eltrombopag. AST (SGOT) 19 U/L (11-39) [facility] ALT (SGPT) 27 U/L (12-78) [facility] GFR >60 ml/min/1.73m2 (>59) [facility] GFR ( AMER) >60 ml/min/1.73m2 (>59) [facility] GFR INTERPRETATION [facility] --NORMAL KIDNEY FUNCTION OR MILD DISEASE - GFR >OR= 60CHRONIC KIDNEY DISEASE - GFR 15 - 59RENAL FAILURE - GFR <15 Est. GFR calculation based on the MDRDstudy equation, which assumes a steadystate for creatinine. Est. GFR should notbe used for medication dosing. ID Date Data Source [id number] 03/13/2021 11:08:45 AM EDT [facility] Name Value Range Interpretation Code Description Data Renee rce(s) Supporting Document(s) LIPASE 87 U/L (65-230) [facility] ID Date Data Source [id number] 03/12/2021 08:35:02 PM EDT [facility] Name Value Range Interpretation Code Description Data Renee rce(s) Supporting Document(s) D-DIMER,SENSITIVE 0.32 mg/L (<0.50) [facility] ID Date Data Source [id number] 03/12/2021 03:47:35 PM EDT [place], [place] [address]Patient Name: COREY KELLEYB: 1990Sex: FOrdering Provider: ROSA GUZMÁNAuthorizing Prov: ROSA GUZMÁNReferrgee Provider: Procedure Performed: / NM CARDIAC GATED SPEC IMG EFWMExam Date: 03/12/2021 15:22MRN: [id number] Number: [id number] Class: OutpatientAccount #: [id number] for Exam: chest pain, LBBBTechnique: Pharmacologic stress test was performed. LEXISCAN was administered under the direction of the Cardiology Department. For the resting study the patient received 10 mCi of CARDIOLITE intravenously. For the pharmacologic stress portion the patient received 35 mCi of CARDIOLITE intravenously. Gated SPECT imaging was performed at rest and stress.Gated wall motion study and ejection fraction were also performed.Comparison:NoneFindings:Myocardial Perfusion Imaging: There is a minimal reversible defect in extent and severity anterior wall from the mid ventricle to the apex. No other defects evident. There is no evidence of transient ischemic dilation.Gated Wall Motion Study and Ejection Fraction: The left ventricular ejection fraction measures 39 there is global hypokinesis with relative sparing of the anterior wall.IMPRESSION: Mild reversible defect anterior wall nerve percent mild inducible ischemia versus breast attenuation artifact. Left ventricular ejection fraction is 39 %.Findings communicated utilizing critical results protocol.Report electronically signed by: QUINCY DEAL On 03/12/2021 3:47 PMWorkstation ID: [id number] Name Value Range Interpretation Code Description Data Renee rce(s) Supporting Document(s) ID Date Data Source [id number] 03/12/2021 08:14:38 AM EDT [facility] Name Value Range Interpretation Code Description Data Renee rce(s) Supporting Document(s) EKG [facility] ECNZNg3uVkVHOrRyk9QoPuHhQJCyYP3bkxn6U3W4eZLhH2MixTSba6khU3MwD9HqXAMpLZSQDQ7AzZNm jb2 [file] f30qPv/9+c+n8D//+pd//PWf/vF//Wn+/PnH//jrf/vHX/a5zFD7/Mf5+Pu///Kf/xrj+WPx+eff/[place] mJ9///7zX/+NOtAxDm0SRAjyZcDyeDoApGhuJWjeSv cHbo8gWmBwwWRVta8VrxS7Kzuxcutgo47J0EfEo2c3n7JhZivo6k+v/XLpl9d+kqFGa81k+lP3Ig770m lsn1258QfNlsHwkxh8fvTuLsfBwl+w3BgHknJoO3j4tlHkAgiUzZ+i8ltOp8vkX9n+7whtXb3rxW6x+t Imn2b4o6o+delXr/3q0q9e+9TvS405l3n/ws2EqD9X 2q8h/Gd0C5Q9IGu/xuPl3E1XPjNwnuDc3L5R6hes/SgBw5A8LwSkaJ2Z3UdEypH3K4e/EfoMoD0g/Yof B8ucxXYhaU3Q+wKWw4v3wvOrKxt4aQ+a8vzUd4sw10U+qevrMg6dnX6C+jV/bLwa+kwaTj8oqL8e/target aircraft controller r5R+Ze1XSr+w9sjoJ6l0jpRlaZ9E0RhZeuZ6J41ZC9 2+ar+B0CjStp6g92y6DkYyFid9nM+v3ntEe6hf37D+vvvqMv1osV2F+rV+1+WyMP+mxI1wjk/P0pkt1o c4gR6SZl/Pz/r86AL9/YzIwk2Hs40o/egi/fch0y7m626PLthH+TzQaOIBh96BNlQLYdqE+kZkeEg8Op GYMC38UBAph3jh2CPzArGZSEnEuDyAAzFxpaZI6y8/ dNbRGk6bRGm3e2mTaLm5fREMddR/4IOMhpjFMmBdIVsDUCgows8dNCTZKr1NAVRy+eHVSNb9d3HJvSd2 cBVTsmI/bMWUrtgPXzElLPbDWEwpi/1wFlPSYj+tqSF20G0uIJFd1cBsEIuW/XAXU/JiP+jWbG5IT46s SNO2u4WNFKm1yMwPUrK/BMaZkun1u36RXteHM3Ba9k NlTMmM/vJMWyhoG6bOpINRC2JnoKP5h1hGIF88aMlLUzU/gGxZ7Sh2xtYaZ7+7cSo2zQ98G5xh5VeppS Ic+0N2duHEymvLWkshQ2EcVaNtc+oGUx95WZmpMWk+wY9q3zNtezBHe+sX71cYMulaESiWa645qpoevS /YL7v23Om7gMCv+2E+ptTHfriPKfmxH/ZjSn/sh/+Y VsF3ZUWpUTd+OJApCbIfFmRKg+iEF1iFCfydKtJYfP88wDlTea07VXjG7GpDfbKl/+FDrnzIf/iQKx/y Vp2jpjv8hd+58iH/4UOufMh/+JArH/IfPuTKh/zLG2xoJy/qG253pU/5cOhw3x0+5MqH/IcPufIh/+FD rnzIf/iQKx/fJf6pnvq8f0+wjDJ43tLWXAr/t0dTNm l++wd4xY80rakEji9OVhkq+z9vOQe5k3q7Itsuob+58iH/4UOufMh/+JArH/IfPuTKh/rFR3qiLp/hQ6 58yH/4zXzs4a2+5MqH/IcPufIh/+FDrnzIf/iQKx/uGh0sxns9yj+58iH/4UOufMh/+JArH/IfPuTKh/ gRV7bwGd/iL991hC/1qWry2m8+5MqH/IcPufIh/+FD rnzIf/iQKx/gDh7rasz2az+58iH/4UOufMh/+JArH/IfPuTKh/jFJ0avMz/fB541iK/8iVri1e9+5MqH /IcPufIh/+FDrnzIf/hQ/6LJKj/dqZfzUh2NKtCgNgaAV9GAE+Ji23kAyHVnEbeizuQTe9aFnE0w++Pa H9f+nKdMoY6Z+3K6Z48268R/CkmGmW9S+5G4P43004 Q/WowZoW0R+8J1L24674Q/PpkZqU6q+2D3K38732E/NrgYiO1a+3T0M83984I/YcyUwM9s+8D6K2H9V3 [file] WhKCpsAF8ixcJsSEReTkegSy5czFA2KMHmSiiWBt8Yz1OnwvQ0quXlAgN6XAB6FnDnNH5G ID Date Data Source [id number] 03/11/2021 09:00:30 PM EDT [facility] Name Value Range Interpretation Code Description Data Renee rce(s) Supporting Document(s) POC CTNI 0.01 ng/mL (0.01-0.07) [facility] [place] Less than 0.08: Myocardial injury unlike lyGreater than or equal to 0.08: Highlysuggestive of myocardial injuryCorrelation with rise and/or fall ofserial troponins, clinical symptoms,and ECG changes is necessary.PERFORMED BY [facility]ICAL STAFF ID Date Data Source [id number] 03/11/2021 05:48:34 PM EDT [facility] INFORMATIONPatient MRN Name Date of Age Gend*PT [id number] Corey Cortez 1990 30 years F OBSPT Location Admission Date/Time Visit ID Attending [id number] 03/11/21 0733 --- Herminia Oconnor MD([id number]) EPI ID CSN Admitting Provider [id number] David Gonzalez MD([id number]) Attestation signed by Tj Bull MD at 03/11/2021 5:48 PMED Attestation:Attestation Type: I was the attending physician on duty at the time the patientvisited the ED. The patient was evaluated by the PA/CROSS TIE MAKER. I was personallyavailable for consultation: However, I did not see the patient nor participatedin the medical decision making process of the encounter. The patient wasdispositioned without my knowledge and I am administratively signing the chartafter the fact. The documentation of discharge supports the diagnosis and thetreatment of the aforementioned diagnosis by the APC is appropriate. I wasavailable for immediate consultation during the patient's ED visit.Tj Bull MD Provider in Triage NotesNo notes on fileHistory of Present IllnessChief ComplaintPatient presents with Chest Pain Pt was at a sleep study overnight and started having chest pain this morning.EMS called and 1 nitro given in route.Patient is an 30 yr old female with an PMH of myotonic dystrophy, dilatedcardiomyopathy (recent echo 02/23/21 EF of 49% with grade 1 diastolicdysfunction), JOSE, and LBBB who presents with an c/o chest pain. Last nightpatient was in an sleep study to get fitted CPAP and developed L sided"pressure" pain that radiates to her L shoulder and jaw, it was associated withnausea and diaphoresis. Was given 1 nitro via EMS and had no improvement inpain. Patient was [facility]23/[facility] for chest pain and hadserial trops, echo, and loop recorder due to ? Near syncope episode in thesetting of LBBB. She is currently prescribed lasix 20mg q daily which she hasbeen taking. Follows with Dr. Roldan with cardiology at [facility]. Never had ancardiac stress test per patient.Denies any OCP use, hx of DVT/PE, recent surgery/travel, or hemoptysis. She wasgiven 1 nitro via EMS with no change in her pain. Allergy to ASA with anreaction of SOB.HistoryPast Medical History:Diagnosis Date Cancer Disease of thyroid gland History of transfusion Renal disorder SeizuresPast Surgical History:Procedure Laterality Date APPENDECTOMY CHOLECYSTECTOMY HYSTERECTOMY IMPLANT/EXPLANT LOOP RECORDERHistory reviewed. No pertinent family history.Social HistoryTobacco Use Smoking status: Never Smoker Smokeless tobacco: Never UsedVaping Use Vaping Use: Never usedSubstance Use Topics Alcohol use: Never Drug use: NeverROSReview of SystemsConstitutional: Negative for chills and fever.Respiratory: Positive for shortness of breath. Negative for cough.Cardiovascular: Positive for chest pain. Negative for leg swelling.Gastrointestinal: Negative for abdominal pain, diarrhea, nausea and vomiting.Genitourinary: Negative for dysuria.Physical ExamBP (!) 89/49 (BP Location: Left upper arm, Patient Position: Lying) | Pulse 61| Temp 98.1 F (Oral) | Resp 16 | Ht 69" | Wt (!) 118.8 kg | SpO2 95% | BMI38.69 kg/m Physical ExamHENT: Head: Normocephalic.Cardiovascular: Rate and Rhythm: Normal rate. Pulses: Normal pulses. Heart sounds: Normal heart sounds. No murmur heard. Comments: No edema.Anterior chest wall tenderness on exam.Pulmonary: Effort: Pulmonary effort is normal. No respiratory distress. Breath sounds: Normal breath sounds. No stridor. No wheezing.Abdominal: General: Abdomen is flat. There is no distension. Tenderness: There is no abdominal tenderness.Neurological: General: No focal deficit present. Mental Status: She is alert. Mental status is at baseline.Psychiatric: Mood and Affect: Mood normal.ED CourseECG 12 leadDate/Time: 03/11/2021 7:43 AMPerformed by: BREEZY GipsonAuthorized by: Tj Bull MDInterpretation: Interpretation: normalRate: ECG rate: 66Rhythm: Rhythm: sinus rhythmComments: LBBB (baseline) 1st degree heart block [address], [place] [address]Patient Name: COREY KELLEYB: 1990Sex: FOrdering Provider: FRED MUSEAuthorizing Prov: FRED MUSEReferrgee Provider:Procedure Performed: / XR CHEST PA A ND LATERALExam Date: 03/11/2021 09:45MRN: [id number] Number: [id number] Class: EmergencyAccount #: [id number] Reason for Exam: chest pain Technique: PA and lateral views obtained. Comparison: None Findings: The lungs are clear. There is no pleural effusion or pneumothorax.The cardiomediastinal silhouette is unremarkable. No acute osseous abnormalityis seen. IMPRESSIONIMPRESSION: No acute abnormality. MDMNumber of Diagnoses or Management OptionsChest pain, unspecified typeDiagnosis management comments: Patient is an 30 yr old female with an PMH ofmyotonic dystrophy, dilated cardiomyopathy (recent echo 02/23/21 EF of 49% withgrade 1 diastolic dysfunction), JOSE, and LBBB who presents with an c/o chestpain that radiates to her L arm/jaw and is associated with nausea anddiaphoresis. Initial BP of 101/58, repeat 89/49, repeat 97/58.Differential (includes but is not limited to) Concern for ACS (with L sided painthat radiates to L arm and jaw and is associated with diaphoresis and nausea).Concern that low BP where 2/2 to recent nitro. Will hold on any further at thistime and hold on ASA due to allergy. Lower concern for PE as PERC is 0 (no Dsign noted on bedside ultrasound with attending) . Lower concern for PNA as nocough and lungs are CTA but will check CXR. Lower concern for pneumothorax aslungs are CTA and no SOB but will check CXR. Does not appear to be fluidoverloaded on exam but will check BNP. Plan for CBC, CMP, trop, HCG, BNP, andplan on admission.12:59 PMChest x-ray is unremarkable, there is no infiltrate, pulmonary edema, orpneumothorax noted. Potassium is 3.5, will replace with PO K. Negative Trop.BNP is 125. Stable H&H. HEART is 4 and will admit to medicine service.This was electronically signed by BREEZY Gipson, 03/11/21 8:55 AM.BREEZY GipsonNurse PractitionerRachel Mena Bull Name Value Range Interpretation Code Description Data Renee rce(s) Supporting Document(s) ID Date Data Source [id number] 03/11/2021 05:01:56 PM EDT [facility] NT INFORMATIONPatient MRN Name Date of Age Gend*PT [id number] Corey Cortez 1990 30 years F OBSPT Location Admission Date/Time Visit ID Attending [id number] 03/11/21 0733 --- David Gonzalez MD([id number]) EPI ID CSN Admitting Provider [id number] David Gonzalez MD([id number])Inpatient History & PhysicalCorey CortezMRN:[id number] and Plan:Principal Problem: Chest painChest Pain- HEART score of 3-EKG showing NSR with LBBB, troponin negative and will repeat- CXR showing no acute disease-will get Lexiscan stress test-telemetryDVT Prophylaxis-LovenoxCode Status-full code per patientChief Complaint: chest painHPI: Corey Cortez is a 30 year old female with a PMH of dilated cardiomyopathy,myotonic dystrophy, JOSE, history of seizures who presented to [facility] ED with chestpain. [facility] states that she was having a sleep study yesterday and woke up thismorning with elft sided chest pain. She states the pain is pressure like,constant and moves to his left arm. She states the pain is associated with somediaphoresis. Corey presented to [facility] ED for further evaluation and management.She denies any fevers/chills, dyspnea, palpitations, cough.Past Medical History:Past Medical History:Diagnosis Date Cancer Disease of thyroid gland History of transfusion Renal disorder SeizuresPast Surgical History:Past Surgical History:Procedure Laterality Da te APPENDECTOMY CHOLECYSTECTOMY HYSTERECTOMY IMPLANT/EXPLANT LOOP RECORDERMedications:(Not in a hospital admission)Allergies:Sm non-asprin sinus [pseudoephedrine-acetaminophen], Tramadol, andReglan [metoclopramide]Family History:Family HistoryProblem Relation Age of Onset Hypertension MotherSocial History:Social HistoryTobacco Use Smoking status: Never Smoker Smokeless tobacco: Never UsedVaping Use Vaping Use: Never usedSubstance Use Topics Alcohol use: Never Drug use: NeverReview of Systems:Constitutional: negativeEyes: negativeEars, nose, mouth, throat, and face: negativeRespiratory: negativeCardiovascular: positive for chest pressure/discomfortGastrointestinal: negativeGenitourinary:negativeIntegument/breast: negativeMusculos keletal:negativeNeurological: negativeBehavioral/Psych: negativePhysical Exam:Vital Signs: Temp: [98.1 F-98.2 F] 98.2 FHeart Rate: [61-80] 66Resp: [16-18] 16BP: (83-102)/(49-74) 102/55General appearance: Pleasant, comfortable, not in acute distress.Psych/ mental status: Alert, oriented, thought content appropriate.HEENT: Normocephalic, atraumatic, conjunctivae clear, EOM's intactHead: Normocephalic, without obvious abnormality, atraumaticEyes: conjunctivae/corneas clear. PERRL, EOM's intact. Fundi benign.Lungs: Clear to auscultation bilaterally.Chest wall: no tendernessCardiovascular: Heart regular rate and rhythm, S1, S2 normal, no murmur, click,rub or gallopAbdomen: Soft, nontender, bowel sounds present.Extremities: extremities normal, atraumatic, no cyanosis or edemaSkin: No rash or lumps.Neuro: Grossly normal.Labs, Imaging and Other Diagnostics:Diagnostic tests reviewed:Labs from today reviewedBMP:Lab ResultsComponent Value Date NA 142 03/11/2021 K 3.5 (L) 03/11/2021 CL 109 (H) 03/11/2021 CO2 27 03/11/2021 ANIONGAP 6 (L) 03/11/2021 CALCIUM 9.2 03/11/2021 GLU 88 03/11/2021 BUN 13 03/11/2021 CREATININE 0.85 03/11/2021 GFRAA >60 03/11/2021 GFRNONAA >60 03/11/2021ardiac:Lab ResultsComponent Value Date TROPONINI <0.02 08/18/2017 POCTROP <0.01 (L) 03/11/2021 POCTROP 0.01 03/11/2021 PROBNP 125 03/11/2021BC with Diff:Lab ResultsComponent Value Date WBC 4.6 03/11/2021 RBC 4.51 03/11/2021 HGB 14.5 03/11/2021 HCT 43.9 03/11/2021 MCV 97.5 (H) 03/11/2021 MCH 32.2 (H) 03/11/2021 MCHC 33.0 03/11/2021 RDW 13.5 03/11/2021 PLT 169 03/11/2021 MPV 9.4 03/11/2021 LYMPHOPCT 27.9 03/11/2021 MONOPCT 5.5 03/11/2021 EOSPCT 1.0 03/11/2021 BASOPCT 0.4 03/11/2021 NEUTROABS 3.0 03/11/2021 MONOABS 0.3 03/11/2021 BASOSABS 0.0 03/11/2021ignature: Herminia Oconnor, MDDate: March 11, 2021Time: 5:01 PM Name Value Range Interpretation Code Description Data Renee rce(s) Supporting Document(s) ID Date Data Source [id number] 03/11/2021 10:18:22 PM EDT [facility] Name Value Range Interpretation Code Description Data Renee rce(s) Supporting Document(s) TROPONIN I <0.05 ng/mL (<0.05) [facility] Less than 0.05: Myocardial injury unlike lyGreater than or equal to 0.05: Highly suggestive of myocardial injuryCorrelation with rise and/or fall ofserial troponins, clinical symptomsand ECG changes is necessary. ID Date Data Source [id number] 03/11/2021 02:19:22 PM EDT [facility] Name Value Range Interpretation Code Description Data Renee rce(s) Supporting Document(s) POC CTNI <0.01 ng/mL (0.01-0.07) L [facility] Less than 0.08: Myocardial injury unlike lyGreater than or equal to 0.08: Highlysuggestive of myocardial injuryCorrelation with rise and/or fall ofserial troponins, clinical symptoms,and ECG changes is necessary.PERFORMED BY [facility] STAFF ID Date Data Source [id number] 03/11/2021 08:19:20 PM EDT [facility] Name Value Range Interpretation Code Description Data Renee rce(s) Supporting Document(s) TROPONIN I <0.05 ng/mL (<0.05) [facility] Less than 0.05: Myocardial injury unlike lyGreater than or equal to 0.05: Highly suggestive of myocardial injuryCorrelation with rise and/or fall ofserial troponins, clinical symptomsand ECG changes is necessary. ID Date Data Source [id number] 03/11/2021 10:41:52 AM EDT [facility] Name Value Range Interpretation Code Description Data Renee rce(s) Supporting Document(s) POC CTNI 0.01 ng/mL (0.01-0.07) [facility] Less than 0.08: Myocardial injury unlike lyGreater than or equal to 0.08: Highlysuggestive of myocardial injuryCorrelation with rise and/or fall ofserial troponins, clinical symptoms,and ECG changes is necessary.PERFORMED BY [facility] ID Date Data Source [id number] 03/11/2021 12:44:47 PM EDT [facility] Name Value Range Interpretation Code Description Data Renee rce(s) Supporting Document(s) SODIUM 142 mmol/L (136-145) [facility] POTASSIUM 3.5 mmol/L (3.6-5.2) L [facility] CHLORIDE 109 mmol/L (100-108) H [facility] CO2 27 mmol/L (22-31) [facility] ANION GAP 6 mmol/L (7-16) L [facility] UREA NITROGEN 13 mg/dL (7-24) [facility] CREATININE 0.85 mg/dL (0.60-1.00) [facility] BUN/CREAT RATIO 15.3 RATIO (10.0-20.0) [facility] GLUCOSE 88 mg/dL (70-99) [facility] CALCIUM 9.2 mg/dL (8.4-10.2) [facility] TOTAL PROTEIN 8.3 g/dL (6.4-8.2) H [facility] ALBUMIN 4.0 g/dL (3.5-4.6) [facility] GLOBULIN 4.3 g/dL (2.7-4.3) [facility] ALB/GLOB RATIO 0.9 RATIO [facility] ALKALINE PHOSPHATASE 82 U/L (45-117) [facility] BILIRUBIN,TOTAL 0.6 mg/dL (0.0-1.0) [facility] PLEASE NOTE:Total bilirubin results may be falselyelevated in patients taking Eltrombopag. AST (SGOT) 22 U/L (11-39) [facility] ALT (SGPT) 36 U/L (12-78) [facility] GFR >60 ml/min/1.73m2 (>59) [facility] GFR ( AMER) >60 ml/min/1.73m2 (>59) [facility] GFR INTERPRETATION [facility] --NORMAL KIDNEY FUNCTION OR MILD DISEASE - GFR >OR= 60CHRONIC KIDNEY DISEASE - GFR 15 - 59RENAL FAILURE - GFR <15 Est. GFR calculation based on the MDRDstudy equation, which assumes a steadystate for creatinine. Est. GFR should notbe used for medication dosing. ID Date Data Source [id number] 03/11/2021 12:44:47 PM EDT [facility] Name Value Range Interpretation Code Description Data Renee rce(s) Supporting Document(s) LIPASE 78 U/L (65-230) [facility] ID Date Data Source [id number] 03/11/2021 12:44:47 PM EDT [facility] Name Value Range Interpretation Code Description Data Renee rce(s) Supporting Document(s) MAGNESIUM 2.3 mg/dL (1.7-2.4) [facility] ID Date Data Source [id number] 03/11/2021 11:57:37 AM EDT [facility] Name Value Range Interpretation Code Description Data Renee rce(s) Supporting Document(s) WBC 4.6 10*3/uL (4.1-11.0) [facility] RBC 4.51 10*6/uL (4.00-5.40) [facility] HGB 14.5 g/dL (12.0-16.0) [facility] HCT 43.9 % (36.0-47.0) [facility] MCV 97.5 fL (80.0-95.0) H [facility] MCH 32.2 pg (27.0-32.0) H [facility] MCHC 33.0 g/dL (32.0-36.0) [facility] RDW 13.5 % (10.5-14.5) [facility] PLT 169 10*3/uL (150-450) [facility] MPV 9.4 fL (7.1-10.7) [facility] NEUT % 65.2 % (35.0-75.0) [facility] LYMPH % 27.9 % (16.0-52.0) [facility] MONO % 5.5 % (0.0-8.0) [facility] EOS % 1.0 % (0.0-5.0) [facility] BASO % 0.4 % (0.0-4.0) [facility] NEUT # 3.0 10*3/uL (1.8-7.7) [facility] LYMPH # 1.3 10*3/uL (1.2-4.8) [facility] MONO # 0.3 10*3/uL (0.0-0.8) [facility] Eosinophils [#/volume] in Blood by Automated count 0.0 10*3/uL (0.0-0 .5) [facility] BASO # 0.0 10*3/uL (0.0-0.2) [facility] ID Date Data Source [id number] 03/11/2021 12:14:07 PM EDT [facility] Name Value Range Interpretation Code Description Data Renee rce(s) Supporting Document(s) HCG, QUAL. SERUM (NEG) [facility] ID Date Data Source [id number] 03/11/2021 12:44:47 PM EDT [facility] Name Value Range Interpretation Code Description Data Renee rce(s) Supporting Document(s) NT PRO BNP 125 pg/mL (0-125) [facility] ID Date Data Source [id number] 03/11/2021 10:12:49 AM EDT [facility] Name Value Range Interpretation Code Description Data Renee rce(s) Supporting Document(s) EKG [facility] RRBAOy4fVrCNCpRpb2MoGbAaDQTlFJ5yftw0P9P1zFLjI8LvpAAvl7anK0LhG2XiWIUpKEMJMG9MwZIz jb2 [file] 0xexr7GaBQ19iopGiExtw6s5swG14txr07DlrF/[facility] [file] 5I2LC4hg3JAAj763f6P0H2GV/m3dNHJ+jCJjoHS9sqTF2yd9yoHI6B1Zr/INe0bxI+nfcJXQvwUs+Angel Luis [file] 932D/Maria Del Carmen+P4nlOHwNVjQWzXR1rU7vh+auL/dNh/aKtYze06X/E/sPDTeIJfVwz3iIgBxzGuLdO+SE+hW H/MNkqr6G0e/1D3AWH/XZOsAkT9qWuUvBqmOdL/kH3I7oH0tNf/dVl/dW5/opx4/orsKy/Ttwh0tNm+6 z5q8+djzseW63+e32+MOu7JTa50NX/4J5h/8T71aF/ GOra2dteTMd3GGp1/HCekB/+7lS3EgZ/VVf58E1F/1GlH9vO5O+d6gy64FZ/W+Rni/befU6t1mP8Uuj8 Kf5RS96N3O/xKjkR/dUimb4h3Z/PYcsaY7jFm1OeV2I+Dy0WIFr08Rf8UBbhQ8dJo/jGXE1QNA1BL/kZ 0D/t8vldwWpg/4S9OmD/AMP+EKwgrN0tjS8jryguVt 0o6mwyAh6tHHzKvvDtIH0Gn0954xb8MatovuqX0/ltD0oN0nLJOM8tvuQh+fRp3muwM+NEMHPsNH+mU5 zn6p/54/9+8vOZP/l37h0hqopld6k5dXwzk6adGI+FS0ecfdF5CF/TRsXXKOPyqGBGB8X/+TMrYtyu/p geJJW0p+aY6rc6q8761uq/7vj8yk+KFUsVHK58G/H/ uZ7erawxB4hwvlq84IYn5Uctb2qkAneDnwbZerUh1ntDstf60UaYWdaOJqzWA1aPQE5nlC2JVe5t43xY pl0U+8iJQ/9rirj7hfenP0huP4BjtIFSxt5xAPiwqWF88AX/sFdj+/jhsJ/xHoX+ek4Kg5h717FuiGTv 6UqEzv0QY9soiP5XqzU8hP8P+5sgR8aq9L/YlrFl/L SOLrjG40nyB5dQ9V/EU3DYz/z+XnUe2M/127ns8a0FIyG/Y+oT40jDCeBZoCp+qEiN9X04xrU9L6Fdlm 4ZE5+H/IRsz9A/kMkZ+gc+5mz4P6iXFhcJaB2tii34n2w8t8tL+n3C/nHg8+eJRjrs5ZWY/cW0XkBSbQ 3TiMfD4x+7cMxf/A7mL3y+BZ/CsH+I/n9pu5B2Pco/ wXdi/sI9w/4Dk9S7t78m/ppi/0zYP/HuT9g/GB/AB5Xdqm1M0i/xdLJm4IU/T/qfgeE/Rea/A/zX5CB1C rmD/4DnC/iHugmP+Il6CY/5zYdJv6k5X7i687L0aX2aY+2dOkR+ac7sUN3Pruoa4Q9K/ndNjonBkO42T Pxhn2D/EYxeegtcpvAWX/Txh/+ERdmdu7sApZQTFv8 J7T0tZ4Y5N5E6o8p5C+2eK/TPF/pli/1yAA2qi5Q/zQIdju1aUsHV+yGAnwY5yeEg2h1ige0cigpguxx 24w476ne8q5WPkQ/WpTCpX1GQ4E41k2N/T786q0PWo4CHdz/+G/BCX/hlk7rCc2c2nH//u7ab2y9Vz4H /43rb51t1Z+of4FKb/GdgFl/jh0Z07C+hf1fc0Yx0a uWoY2pk6x7I+CW45k6D/iLvgUWMC/JD6jnkw/2tB/9WxSb2sTVifky+hf/B5yE/BBvn9qpCD82IaxQ+I Q374/Ss/LeycFfoH/swV+pxUyue94q/30szAn/u5ScHh66G48jr5g/8WjyWAF2qEzQp8091L+M6+PlWM 29U/3/XiWlf/gPTioJvhn41qyYRn/bNNBvEfl44uz6 7xapxF9ffpXk/RuvonlOLF6/lX19U/606tF1q+RhOZdfXPRDOyFfoH/t4V+sd++PzKj+M9Ev/rUq7Hqf t0jt8as28ufF3r3LEf3S5q0XA6B/EEM8xBZ/QP/GMr9A/mujM8N8ugIl0RbS84Jxjtrx6+D/sn7MkN+y d+74b9E+/8hm2X6BC8tyM/YV4Hn77jXLfhRVeStnDD /rvj8/IgLxahXaKeV74yknST/zDkcIf+gS26Q//EEn9nd1ENre061UgaR9n+O/QPbMId+ycbi7veOa4S eD7/8v72y0jLdg86Nn6jwArjGse//+qG/xp9Uu3sC0mMyaitvy305Use/zkw/M8YW/if8UxD/0AGdugf 2Kg79A/kaof+gY26Q//JZm6nc4GaoxedtO151Z/uE/ oH4y/rry3+ki45H0e5Q4Trvj+1Zf9rc/7Y8arHCd8Kn/hDuQY3X1l8O7eTOl8aGPz3bOJKqpY/bdg/uD kQB5VT9T/4jbR/4reL/bPF/ujj3g196Y72F8j/xOf5V/osFDR4ZWJape68SqvbU+L5/Ksb+asnUn2AfV rD/xG4tG50vmQafT5/b9l/37L/vmX/fZ+ZapZ898cu gzS53bp4C4Y/Y3W4/w5c++9H9t+Y3J3x7o2v5n6z3J/ErRXugkcvPAXX/vuR/fcj+++H++/TSydB5aX/ jnfBJT/Hp+Cyn4/svx/xPx/YP/jtsH+IW40J/c/4/pztwA6EaHHlFrHou+67cGD/fWyvMW1NvH6h6qQ+ Ec3Uivu7XEc24UxOp5qqte5+ZP/9jPIfHon/OYz/iX fpSeC7LM1Wv/33pB31oO85oW86tsmNEFzHRh1L5FxJV4qUO4iYK1ozx6Rj/jqy/jqy/jqy/364/x7X4v 4XcOmfI+uvI+uvI+uvs0V+tsjPFvmB/sH5qX/erjyTDf01h7NpDuI/iM/cOt3trpjrjllilK6Rq0lTO1 AnJDlp6Q9gfguzv6DdbR/KWCx386zYfNI8mGiDbZN4 3zZuW65zdd0m478x8Wz1kcQl23hDp1W1baUxnUd9Uh4OD7cObiK0o6V6tuMfwqm5Nbkm+gFr27Yt4zzZ mOPwcN2qGV+HccdzjqbUvoSV5e1MJnahhwwrAIv/wiZwsYDPUOCXZxUHFec7FADLzDQJKx1VHpj3Pe2t +3QMojQ8AvIlH8qE8MhPXFGJP/Z22vyv55Qt5QcTl/ mfha9BnK7Wdl46XatN780BtOovC5ioOeoXEJPekdTyNFWB+ExhJzmP+GkWsx309ia/Lb1KomFhp1xw4P zMI+FbVSVwPsYUf5gy52uTuzebEfb7bAu3Kxt+9Zg00VpgIa8pB2h92pG9LxUojhs2JoBWI2FZB/dJTI cvJtF4eoJzkYAIotbGkeyt7+rI6vI/PJUqHsMK3g5u hrDqBrb9kvtdtvYXhT1H7WNtt55Xose+8BMAEFVMOUZcDwENVZbSF1AkIT0OXYRuvxlxe8FgtKRcWU2V rashF5DFo8ufHiBdzBp+c+JVsh/cRttA9uetFnfc/i32hfcdL5o9h701+8jdcw5do80+Agq0k74s+0mA uJ1FeY1Zl7BwW3+UkWUmu/yd8SqhoK0UBv1anfOMLJ u3+sj3hFaOZGmRdpCIptcXSjJhjIORsWpOkXtjZCXMdondYqyfaVL1/OnWYlmEzCVcrsX40V1N+CKB9Z EZcWFi3OZkoMEANwDwVWpDOZxBRDgmOGdP96PDiqHS+NvANEZiJ+aXvaEeaMv8mkz51CeUNzrCXzSpAd sQb2oLwzwQdSOJmvvZZqAVkHAAooyMZWt3x4eOtI6e s88X3MVkEcsM5amQ2dM2N8REKeUBRspRhxwBfjOgDuGQqYlAUux3Hzt/0q0UdZIJtTBxAw3YjX2rNIGw BlLudfDt1yxE3mggZQYMd/Hq4YR1F/0o1dI5B/5y2bw3Ox9hCli1bQYCmvfWYyVkFT9G21Y57mxoSYLu G4bBBPXqHr4VzOPtAUciJX3PIGzcvhYZxpSoIApuRL yyDCf6wGCBQjcYjNRPuUeBdclSSXmrvx2G+01USVpQFeZD6vbcWlPeLDZtLWrLq0jsLhy4Y57X4c0lFo EJiFAC7dRuuGHalzDZun0mPSqw9ic9/gcBBg2/NCIMDLZyhHh/hcqIAUfS2lAKYAO3sEWedEVebwqc3K XDDKruxSDFw0zYuHJ/YVVI1U34So91g1MiGZ9Nlr67 TxDhBnwkiDfguEG/8Q6o3/YYXXCBITBLhUCxiTiaFwaw5ADu3r6DKhYHGKWBmAD9yQsuF8bj+MBcog/M JfzAXOIPzCUAwVwiEMwlBMFcYhDMJQjBXKIQzCUMwVziEMwlEMFcIhHMJRTBXGIRzCUYwVyiEcwlHMFc 4hHMJSDBXCISzCUkwVxiEswlKMFcohLMJSzBHHEJfD OSkENRvJFYpQ2iUvERXGgXVNSYgCB2lCcxI4jAtJW5Isz2QJ+twtFvk9DkPMZyLOcE9qNTegCXCrOmQC MXIP8GEwMnNCbPZTVcrMzj4c8ZVnt8fE7jmNeQkPpTQXCKJo+uTO0USNrUwqNnVJYuSHfIxGJJrpyuAn tCCKgeOJLAIyKhlYVc4TvtMD6gUjMSiSk5agUJZLWm AXfIDAPNupUjGYLsZuoLzGPFvsDcEJiBYgwJqDjFDTQhjMNsxRVRf3MGc8b/QvNpupPzNEVPJgcnz4zK KX+kXglQ3p/TQxTxSMEIE8F1vRdioeJFutXqGh66ukbOXN0ykKBIL5x1JyttxHXhhraraPtB0xSop0q9 sGC/CdbJgiObfVTnjjzGrqw4LmSbOawBgWX8W7OURQ KmKHlnAnTT9bR+a2q/KqIsjcaeIn83saxTJgAX8rS1eSaKVcsrf7d1l8JbnXPmtRtTnD19jzCfXtwoKy agJwl5+/EF6xnYLo0feMRSbxq8KYA2ZrBo0ZWpSY5K8Ln3xeMyyKE6YZtRXOBvHSmWT5ocIUcUOYNrtk Ful6iZoqcQiQ8hJ5RoE133SS96Ad4BcO2harSXYCcM secBZIuAXQIWLjNz99JjeHpu6EjDosju17FFlsyeQ9mSX5EMgs+RShk1pdKo1TOyGgd46hCvLxNIEffK mFtAHogku2d9R2xQXLzqwJlR533vnOPE19z8ARNUR38FW882mHmO2M+fWjOQ6+/43KAdIm9bAnwM4ExF PVhEr3+2Mv/bsi92VfimA5JQJ1A7dxPORA+lrRD6fP VjAcJjk4Z5apgZXm4y4eVSM9h2rsIJP11jWACmvHKJgF1lCzWR9hF/jkkHA64joG1AYeonnS+MDoV7tJ VlJ0xFXu7NMzN9AsfvdN6BEwztvw9SlbK8QQH//HgGwJJ4afEZ5FjQ8aoc9j3Ohf/ohy3V1GIOeBtO8D EICxJ/TpU8ISIZB31bD7J6D0DMHQli+iVo60UJTAKe 3NQT4z6HDWMbfVwS9Z4tByKrtStF0q03UAJipSZV5R8RIeSdK3s6NvCNDb+PmJJYL/B/EHaxeaQrGVvI 5LHYZR1jcEZ3qibL5Dd+HbkpyXTwb9Ysnl4PA11EDN0o3IWcIjoeKApTrhZDKya8ptg2uThHAV2FiyWs tG5dJCO/0IbChxky6gEpuFz9mQiFd+IsMF9kUfqa7a IjU3eHQ/LxFHJxdwtoqeRM5wtAwGZ9gyyqichjSfdkW91sFbclLKf+kdbqRmG/ZPk6JAaUPbzO6EWDVa JM8iTHCGiBq6AH/W+IYCa9SmOVkJuwBTe3himd1C0bFwQmianDkf5cz+GqJDKfDtkwNUTMPzKVLCUyny JqPs8G+y0OHKHuHOIN9rvy2ywK+93S9NuNZD+1of63 qk26am30+asQIJu/uwOshOvak3GZV2LnjQdq/23S/4Yj9L+CxIHPyBKwzc8KmPmuii8Uao+h6z7P7arw 9ttU+91JSZLpWY1pmCioaL0CAJYD3jqECa5Quc+mhLca4+aieavcx9shLw7zJEGefM0e8S2SrKGGhgoo MGTdUz20QFPle2Ipcg7EwA+cRBSudtA0WONmqSG4JA yB4JnTikvtCUXaBiBsf3iWdvlUjQ+bQ+JkDiVTu39Gk/yp/fKn+UgB43aY01eN77dY1PoK8NAzte+QMf wmyrJOtgrPScAuAn2A/GBRejbTE4BdYA1ygA3K1C2YzKU/acvfM2UBJcrm8zfDDPHruM1Xs5A8wmZ0jb MO44uBW2ToD6gQEVv+G6mtebBPXkpQtmy2H/2FDttE kLlZDyRmyeN8q+n2aLOWFH/JI+hVAeeZeYyBhZVqz5JbLOb+AKfV1uo99ERBia6NDNxdsi0UwJMhBIs2 OI+oD3KyfYHo8dOn+f97nMcmLzpgHJ2WenMTxuZYw6/bBQH7j+oUaaPNkk91BnW0iXEQdR8LlIlwcA/E 8NG4YgwjnezRCWQbo/75S4rQvywKqte8BoYV759h3Y ck/XOT86PIG7N2qv7hAZ0QL2ONzDTRh3JNSMzoTNsWyEik8MijwZG6lZWszRA/RsDMkjSwJlJ5jOAwvF 9ZjA/X5kLdrgENdgEW/dViJmeKbvizbB5Oe74swqRaM+4L7BS1j5KEHKtzIySN1UHWW+LvbXx9R0pg5R BxmSpvKPGAvY+YSy4TLRO5tNwXGC/ULotlHkiQp4/b sS6vqwr0VqJMLAc3k0E+t6X+t6X+I6E1nhPaskWooPb/ZCpZSmI+zYSsPjsHDu6b/4+4Etk/Xacrkfl0 gGyRSrvvhg99AG/ItiQgGTIAHqkQXNs/6fjlM5zIYCT+iJwXFzKvLetaB8hyr06oLlHHRUKjskpQOXxQ OnzMeiZ1fIYApvfTWZlKBdgJvuI6QLPWwYmT1LpfRY alLoQhMeARmU+LBzRAJrKN4X7YCxe/Y3Q1thd/47VJVybIutlrEzKwX4CoqdqGxr08RDJQ8lejwpF5fo q9gOb36c+5c9qbGHAI3P2d1oli1qcA+22r/fqJnaayvtWaxYTsemb0UK3kzVkeRB1kpN6vbcJSzgyZ6E mmD/XGFMMV9EZu6JFCOHEFkhqIgS8hzw1l1Uf/sHV/ Rke1iKd3oPi+icc7rhR+FNd6iQr6QECNKRO1ae03F2opyzwTLWoPLL6/L83GHozd+ajVRzYZCrUzF9of NOBgxp10gfmPWSvsrSGdjlTJsCOccD08BxKEmdk2oWpQCnEmTNfrETqcqzALQkygkBhY8Qo3KjPbCLFa 7CYd+h39O9DJQKnDPt/fk2N8kSW6zx4RdXLFI9m/N9 4PcBXKaHqAsIVyMFYIT9Ypr0vvROutvxzuwQ9RhObjgGDhMXcKYb2UDzKmIsBUVEzEwTZP9kD5GvIPEa 6ETubIP/iOCzlocSncVEGi0ugrkD6VFq718iopqd4d71Oep9nipfIyjMQfiPouTfJ2CCKsKfAS9s1TH2 U9TfGUh1G0kwFoM5jwL/BpY3+Amnb30fK+qUQ7EOma 9WRT7jqvJFrLbNvpcYeSDYRWM1KZcfXTP6w8iepDvCjI5ZLIGL7hdO38RM2ExdaUIX/vF0RyuSJJjjdP CrQGkaVAO/NyicgCffC6NfJisMqwVmrZvDCXK6NMiPhEsWA4Fx8GPVhnweX+IVzVe4vGst5XZ+xWd4D4 EBLEh/WFPUraG2ttlJgsn1XHE7dhsNo/aRMBl1q9HF gbzPCIjosJfG4OcQoi+Cye+ZmCoq6kxl3wMbmuj0doE9BRmsLLvqJcqtToL8+k9k/RNj6rZ/12r2oCjV hoG1+yH7y4QWVJI0IQsA0RpgUf0sR+U3KVOt2DjkQ0f7Em/PvZ3D/VbZmxDwgJT7gUqcNc1gY37I+sab /xSH/DilumM8O+uxdt4+cMevSPx90zrtpQoMfYUxN6 SIYmGN4je1C1ruGbcwHVE8Nn+RXsADvsvEc5S6mFK8DfmaG/A5k5AjW4HT1o0qZyj2OgbS9u7Yt8kD4Y 0ZuzU80eIIi/J9kXtpgT+NL0dG1P5MBvP5+sUfurOgvuqcx8BBQ7suP7Mk6wj6FNv5Ior1bfpZrUk4OX /lHjcS5MnyYZ/AW+xkIostx9icNU6O5DczJ/UprQf1 Qs3Q2Z7+s/oG6mKadY0fo/4Jm/fTSEYo9LzPmTRqoIQe+6FOthh7M4apg+jctuJd35unCc+QtJqtiKM3 9zd6i0AtcNqcZK+BDcA2D70bl30ww0jlCT14EOZc6xJ8ZSX5WOk5IsPXpaV16idZIE/DxHbzKEBuTu19 siti70laj/0QqrB5FmSdQ0Twr3/5g4nmRQ3Dao/lG0 fipIwVrcCPXV74rSjLDT+ImAZ/DCm9MU1OQfe08am6+RHEyfq8JfW/EEP0DLbEdbUbcg6kaALlv1nymy Mkd86BiBSfrW/9ymvcVQ8EXTsizp1wfEW48j5+EBjBwXd3qnhinXJjt9ImN02D6iBSerDm+wC2f+Al5n 5i/wl8L/xqcA/lgQXZt567EdxyVMwxXGqnZ1bVqn1N YWUeGz4xcHSxIy4Ay/f3iBtvGkHcMxK83W+st6YHVt1JldTJbI+VW7LqTasgC8Y3APN1O3yWof1JAE+w 8g4kktK2PrT4a1EAVFj9cPmkWVajBfWs1RTV1JQ3jH9c2Kl/bq5l3An1jOToFyGDHt3S7+YJu7ipvlLu V80S2+fIkhkx8K+BDeAeJDJo/QufU3xiwDSDuzMgoH yF/gwCN/gU+O+El94tcwyZBGmlFarqvtyDERdzRWAXbH7aqKauQ9FNJ+w72J/17l3YeA/VNnfXonKX+v p2R6PpdPO02Y+6fusn/tDwucyzQ5UImYS5mCYIltwqNd3sdBeQ4kOgaHbAKTQlNlFpGaI4edmqrJ6EM2 qdrqrvabq/8GreDDa1j/pZp9lOQ/8N2Nc9qD1ko5nJ /zRoxL2lBt7xgkt+ZAmg7OWK5p66EWvO/IxJMn3r71SzOGVmKxe/4pusW/b8EjXkgJJ1SqqppHlOs1nU mASnW3ZvfqWKbY/26RWM7pjcW/FmbmxleNQ5BiwloMkAe/EkIorblDF7EeL1JkfK43SXcJvpQgmMX093 ghm73av4e5N8Y5juq94jT+q8tcf9i8kNH/YiKnfN1W /LT4ocOvZNHOTWbralH6XnW/6Y0dk1M5t3Dit8Vm36pLFtFmrHT+QrbVKH+vNyl+5w8T0a818+AR0W/M X0hS/s0uIeIac2Ykwd6p4AKVOAqS/80Cc2QBSGgBE0P8EU+yv+CS3vl0et6QU1kx4Fz2f380WcdpHuKs uBhUBEW27ncYz91Si+wvOPMXklT+qWv+gjN/YZOE/8 8L3295NTNs5XCYjyKVhylce8eAw6x3qsC88IdwHby5m+cYjocj1LaapQ1vblW7U7U+ThVO2E6x5NnbNw +bVVNGJ0Fj2Hel0MKexI9oSBnOKe7rdbHzyzVHrekV6nvxEA8+S/W47aoRZC61lHWEC8+CYEokQH4MsT 4WM2s05JX8ZcAi6Luwxy/ULfIXLHvAe3/mPzYK5h2M tH5h/gJ/AvxvsCka/W/sDr+UuEj6Dcb3EJ+Vw5CdKVxKiZuMm/PNxVAc91Ii+FWs36Qk+LR7kb/wiJUR nKaRQwPBX4fwGsf6gs2qDP9mWfoIeVJxqcoDvT1ZYbyf30JUl8zG+ZAP6ZyNAm3EPWLz3BfZ/gKNYOQv 0JxE/jBLjB3jnHyGLcF2zVlnsO86xGgl60laxSWpIH qQD0hS+WJbMd7gluxM5bntG8wFpE/p16A8OWFWu0CFcpLpTVP+hM8H+wsQf+XeHCObA4ii1In+xRL5C9 SwbHVzD5cSoVLB3zwjy/5Fgvq7dqE3jDf2g6CP+F6Siu/4Rgmhcaw1QFNQStBkBChU3OS+CEG7xwVDmZ xceVsoOr58Ga0oGu67ba12qP+4lQC9cY2K+T1ZKqTV yjfgnq9a6g7oNk1GRcri0e07K7lL+SdT5VZ66/DxWB0PDrIwlnS8vFQcFg9rF/2nNgtDxhWZaoAT1B4y Dbgy8BwStIVbUIJ6LI5RT3GpcYm9IBxhJJ9z/QkWfysPl41HGAnlFeR1QtW+14fkZ/mQgtloFV/kCJGa jUvNY1Gx/nQPsGIGV0nk+CJTidhvg/LezQZg3ClLCu 6N7ycrYBtTaxXNGtXCqpYEs6RQ0torg/qQPiLO/OWhCd2qptZJ3te8yYS8vzqYLddU89GgK/Qb9yOXlk +Jd1q2U4aD0aRGFO/BeGT+hCwllQ+PSqWXuD6e/oIhG89QlTuVi6MH0kzha6I/EknLto2mKP4cFdJH7s Xnj2W9wF3oh+4D0hr09D4BkovBK/cXNH/OG66NXWhe +9Ft6p07hrGoK0lnkXvq45Lx7VIr+IxIZC60xC06YO9V2L+Zv0BS+c7O/BMyJ5wlIgyjG1l8oF2ztGR/ fyBu1gewBPY/dt1G1B1gdc1o14Q/gGAER/3VF4dDv/DDXUf+ojcMmPt4jwDaqAxaInY8E03Ha41j20g1 1e6tVbyxTfqKqVcz4nJ/LSc5Jd417oa7+u3K+w9taj +Mz8/PbspEbmc861O4Z8wJlgv3sl/C+yaV2Na++u7D+LxfPIC/cf6mF+X54wU7Y0l10Z05Od5b7My9Gz K6Y7aupTx+nC2nZ1Af8aBvE/JkbQ2xxPUIr5G1AxhjwYsEy6eWVhm9W/fD+Rl26UzWXAhwa5yzKXLofc S74E/Miq1J27pQ/gjN2qfbhw3E4moSjaSz0f9vosI+ t2hhd1OdkS+n5m+6Ce5bA3yLsi3ngThzb+FqtByfaLT++6W5udtvIhfL88OKiPlE54ZlYk4f8VdKEuor kB/ikJ+W15i95FzHqY+Bz0N+8NxnyA/wYsuAoesFcOdZBWUy1FKY/BBPwSE/xCE/DLo+79ggoe7rjT07 2fv+0Jt3tyq0Al3Zu3/fezVWjsNVWDk+V1/cuN215x SKbpZgUgbbk3RTH+Yhj9qw0A04IKf7HH+bYD+F23u/ByzRezEuWM7prHD/nZdmifwpvwn3Oo/6X9NJF0 MAY07i4yPxOIXU1Vh/kScLY1Wlt2xTI/+7w1AjLczR6Y6P/QC+M3CbvUzvhaB3mrKoyXEeVJ3VK5JrL5 xtnO9u8mrejvO+D/6a3JukV8p+IV6CQ/6Dw9YtbtAy f+cP/tW0AM3aA9qRNj9q07dU8MPeeTC/sNEK/SDqJju3hxD/p8V9S1np6J+/nAXFg4Ubx2Ov/7DID/TP 6CkWxaN9i3pCPKO+xEcXXmEOyyZnJ2R+oH+IT2HoH/wv9A/ATl8G3FE6dpL/+X7E7Lk3yg3Th/DG/AWM +Qsta2v+Cq9+Wqq81qqIDr6LPeIY/1YxYVBe/RPriX 9oU/c7Z3VNiwSV+MpP+2W30DSkCoavq+Wn4xld/fOZx/w6sx9TWTJe/K2kyKO53cE2pn+w16b2M+7RXv mFA9qnCt1kfbt60F53VqAXfp4AggcZNl/ZDgf+h9G+9spP7/jOJz/fiqX/jxe377TeRo/377VAsh4gX/ gSu2HM5BigdiaX+getSKF/wJ7fpxe067xWeQ+IQ374 nVMY9g+eGK75FU5Eh2EKJ0Yc4GFY0s/aYqnTt6h/iGP+cmi79OLTi6BLC3/EX7WSI4GdrbcF/EUc8xe+ 02v+Cuf8+7wLxvwFPGedB/NXyECv+Srf8ghLqjqE04ET/enxq4lxsjj5V9Z+gYxB/xg+v/VNvKM62dTR 4Yznexe+sBuUzUGB86ZaumXoTMNgw7QeqrZtlAYSVb E0GWgY7jcDCG6Y/ozGaU23L+9ZngfGAf829/vNcf9X/3w47v/qn4fv/JV47vr+nb/ynHf+ymvd+csgz6 F/oKdI5907WBiM205bD+rTRv5Rf6gL/Kegw3ut4KTXbGr8sfPH/MH7M1veEp0miyGqm4Cp83I87nROau 4VlbmAkf2t0D136wG/EImhqpJ08R7tLg53JhZkM+D2 7mzi5f2i1U/8zhIM+zg0MWw3RowjJ0mRspKEXn86a1jE2y7r2S/ES/AehUv/dNE/XfRPh/5ZwKF/2Mq2 v/euQ/1Zw4icmxxc7up/AzYFihl3m8pWEvaoTEk+IZ6Cl+KTK0QqWDMNbb00jmF/3E7su2e13RWCI3Gj wpd8A2UI+yhxa5Rwe9v+sNeYjFZjNbpgyA/iVpi7I6 f+QYsz3U5EIKsf2SDB/eTnoX+IQ//EOxJ+zj135CI/ny/BexQ+hUP/0T3LOhv7XNoN+Z6Gf/zhLnjswl Nw2M/CW1RCq8kR9O/cs9g/HfYPfjvsH/xe6B+MFdZfGH+sv/Lnsw7bYrhfFXi/tC2tJ007y37jrEnjra SZ9dz4Q/qH+Dw8oH+SXOUVX6VAQSnkAU1KF5UfQhd9 fUD/OGgiE5c9U8W/sAVt6B/xIScRMu4UsZ2yhSs6i3Y0Sk47OU106pF9XJ/ZoXneYNu01wY+9drSB0Wf vfLjG/+7BV/4qT8xFjnWF72fmnVCE9Gsja2MunMpNAp8c+U0amH4q3BEJQ01mC/QifS2bDx8ui1xmya/ lKh5N9sl/m5d8vhkf97wTdwf0VM+9hyi9rx9kxLmyN /3j8+v/eyG81/3IUdNpFzY7qp3L9H/oMUq9A+/3wWH/Wwz3wmXRf7PeWsY/2dg/JZbghxh3IMZFojqhv GX4Jq/BtZfwFh/Uzo4YCtJw6L8oP9d7w0W1e/pgb4F2r+4N6y/IP/w/vM1x88P/D/IAcR934Ri+mfsmr 8G7B+8F7B/IDOwf/KEgM1jHjfIga92t2KFiF+20ID9 g3cK9k/H52H/BXI3cGizckC6W64e4sHybIyDWv5r5iSccyqcJz8h+kVDYW8dWCuOzQ/VGP87IcbUtOBP 9qyKzfCETcv4VtzROa63bVI/X9y5yV5X+6bq60Fzjv9jb1OGeDX83/3EfYb+4T2H/dPrSk2LD1KM/2Ac 4P+J92vC/9Huzv8cKbq/Z8L/Ezphtpq/pvifJ/w/xF 6udDR5lU1tDVWO//HJ05aXOs+WJvw/xGX/TLF/ptg/E/RCb0O0x0O7r5/Xs3lmr/chso1BtXF+Ia75a0 L/PKlx913gaQ2Gz/6Zon+m6J85a/6as/gXm5og6ugMZ/w/E/qHeApegneNifh/Jv0/gAbO0yl5nx1aqg 5lYg9EC5RbC1/oH+DBGMbP6ZA1F9jEm/6Z0D/E6607 Nelm7zXgC/gU7DE6h94m4N/iLljkB/YPxueU/3BC/9HYiX8QS+gftA2F/iEO/rIK41USdaNBp6L+7/hO uR53Tw4Y+BQ2rN/j+6F/ErvgsJ/5/bCf+gx572Suf3B6R/oHv3GJ/3lh/RWysbD+3aP05YRL/8/5j21q TSkp1j5x2i2cyN7Vij/ePL6w/iI+hbH+InbBIT/EXf NnwqHt1d/iulh/8W0f5F2llX+Ia/1rhr1gIx/wOyE/OCf0D/PJjOdzNfrOlx5Gd9U/EIf+YB30y4E/MP 8VU5pJ1u9j1m7VWG+Ogc8Hpd78j3Mdc17MAmq1axIWTLXoI/sZrfj+lR/hsPEZfb6z5ClMxkTVkvISxS 8Km5E1Y2Bn+Et0kTqKm6187jR+hh6+c+cv+EKjfM13 ta1m90WAXz8zON9cI+MQ6y/1qgD6ZN3yFqpV2moLsbcSU/3X2Mb53u+ayop4QogMRN/BL7Tg/4g2qd7r ckt6X9oPN/sA3MA43Js/C/wRIYEx9w5F9R/NzIu1k6fF+k7ID/200Dw4DiLZe/dV9kqQK1x/ivUXsZ/6 MbRcSv2y6Qg/+L/bCp/IFI2Zz5NPBRNLlN3fytG+Ip 6Cl+CYvwb+9xSG/on3ZdP/A1z+ny3+ny3+n+01f22v/YvttX+x6f/Bd2r/qilfj0pamoslt/6Jlq+wfx pw2D+tQyldv2RN19MrMbgvL/mFUmkP9J//dZZg3B3wCxHP/vvG/uy5iTofO90la6AAJ/9F2sYZt3T7lu ihwMg628+BY/5J2EI9ce2c/meeM/zPvO4o+znqzdAW jXIz+Vugf8L+3NQ/wKF/Qp/sWfsXG/4tWpfaL3IQ/h/H9+igN3z9t/C84Y1qlj6NPw3Qfpo/W+yfLfbP Fvtnr/IfbrF/Nc3opF6ronmm/bVp/7U2HZ19Vc/wO7V/lAdwF8yOF1Kc2J/EuxU+haF/0Tzda2vklA1/ b/H/bPH/bPH/2MI69g3m8As1iK/n0P+Dz8t+awning spreader/aH [file] gEikOSD2Qq1WbrCqPOLcYENSZe9Sn442TIEzMPIRRey+SxgowXPbpMvkCVUGQPL9XLDLOQBPE5K= ID Date Data Source [id number] 03/11/2021 10:00:20 AM EDT [address] [address]Tdppbnz Name: COREY KELLEYB: 1990Sex: FOrdering Provider: FRED MUSEAuthorizing Prov: FRED CUELLAR ALMAZRefmichael Provider: Procedure Performed: / XR CHEST PA AND LATERALExam Date: 03/11/2021 09:45MRN: [id number] Number: [id number] Class: EmergencyAccount #: [id number] for Exam: chest painTechnique: PA and lateral views obtained.Comparison: NoneFindings: The lungs are clear. There is no pleural effusion or pneumothorax. The cardiomediastinal silhouette is unremarkable. No acute osseous abnormality is seen.IMPRESSION: No acute abnormality.Report electronically signed by: ASHUTOSH SALGADO On 03/11/2021 10:00 AMWorkstation ID: [id number] Name Value Range Interpretation Code Description Data Renee rce(s) Supporting Document(s) ID Date Data Source [id number] 03/11/2021 09:20:31 AM EDT [facility] Name Value Range Interpretation Code Description Data Renee rce(s) Supporting Document(s) EKG [facility] MNXYJf4wWrCDXwPxr6UwTbJhMTUvHB0toao6V9T9pIYtD6WkoZTdh5riO3HjL8HvAIAqPBUIGU2OxCWn jb2 [file] TP9+Y/rKm74Uv6TD/89sDtqIag4gkznAdGV/qn4X9D/7wPJfAnP+Addie/xCs0slUo3jP0m6T1vmLNOTh/ Lz2ipx/tA//cFG/9M/Dc8h9A+vFfqnbeBP/+Txn/55 d5+BP/4BDK2b6/EDx3/8n18g4J1b5v9stXL/4H56yM/hTvLDHduRkJ/GbZPgkB/pqL1EX78or/5JQ1dw yE+kbVh2Uh41TZMmUGv9DZ/CM+JxQEusuH91yaXv9ItVP/vuqF4ipN/fXAk1I2/6J4/59M/Qmtg5sf9+ E7nH91oE+gX5X+vqGYf+IYb+nXMzf4rE/+S6Gb4B15 Fj/kYbmD00XxtR+oH56xxd4/Dopzzsc/Vz+IUqu4Ec/32q4emaWx8SPg/1C7+LT/+5z9vVl5cP/a7ygW vdaP2x519Wx1uYryptO/5EQQ30b1PWvNWi+mYtHPx1V0us5/oFOQ8H/ovx+iQ2tQ39/LF7nk//vNcF/t Zc7Lj06v/fC/Tuf1bbTnM/3McBGaLLDk76W15ih/3T gSH4pxci3S+hxxrsH+Kyfxrtn/wTZqF9nyCds1SPz7jrT/V6trfKbRl6dnl23TWwVvpN1/dGUszb2UEF U7bDQ8/fYzjoE/oXj4nKyGjN/UMc+qhdBzVB8JM97k+q9Vq/DzHB0qT6D81C+ofYT+F2f18N+eu75wM3 Qf/gWtA/xNA/fV3zI8rA/UPsgkP/9W6be9tNDfwn+t 6gf/BZoH+CQ0LtGhqV/HCmoi3ZhhU3ZO/yM7fvMeBJ/RHu1tLJze0Kx3uwbbWiW9HuiT+IQ/8UR7RA7Y 6FQ//q7qJ724AE/4TN1qB/iEP/POeUJN7Qh/rppEO3BYGpe/jc31eH/Peyton/2vgJ9jmJmPfPKH/TPweq 1f/VmCa/1lO97bOhTEHy31qw2wu/8YYWNTQCWL72D+ An4bpvkgBQmwxw9nF2zUS95dq2K/+TwRC8VrZ3CfPoi+nTpPyA/uE/oH9w/5Jow9H0kU/+B/qI9eTqzm LQIts9EZ3qh+hge7b9pfdwf9OwhbEVX+Tv0o3oLvzmJ0x/x4w/M97ldiAxnEcYW9qbF/n/x0nv+Tn4Hn TVItX4VSfPu2SAm/6Z8X4/Vv/eo4Z+y/WvymwmNO+y 1p0rEiXbO/1fB8Yv/X8nhw7lPufEAiw+3AuJ/YfzXIcOy//GBk7bd+ueH1b/3COgs/OWxmuMnxu+vQP/ hc0D+4H+cyfP9rT+YTN1hZ9Z/kaE6w3dZL/DQcE/LD10N++M4cT7x2DJb5N+zLC83bSuq/iEN+cP/Yf0 H3dU0r8aV2by8Yaez7R4Cc0tR7K6GbglUXo+F7xP6L eCxu6YhU/xe4XXolm+Z8Gs6H6HtAuVtWIs2/gEP/iOnnrvg7mFgm15LWyb76tF2G31MHS/w/1X4ihm00 QL0MyB610tU0r4R1E2xRLc/lwGekHRgub/4ew+RXzObN98Yv/mk9Q5s6SK20J8Tg4Oit1ElQ80UBz7Wf FYDjNJu7M4f/9cvwnGP/oTawkoG81ZpOYp/wM0L/4L ND/2IEGj4w3hD/T9iEA/ch3mFFz/qF5wz/D54//D/4juD/Jv3Mrq4kF2QQ+jVGrV+D9g+zs0UhnuKA9u //V+SG2w6uhJ59QuPzBC/7B6/G6u6D1E/NcM2Pf6WnyzCRahT/xS4HX2UqDEOMjZzK/UPcBIf+wfmhfx Zen4Jr/zVk/zXE/zN22c+D+6/4X9g/U99slsK/8Jgp eHmdJ/TV9wV8Lvh0n6bFw9Xm3+I89D18N/QP8RRc/sNB+qh8CYpc4l3S8T+D18t+yu5XIB6pIk8Z/13X PpzQPyHDE/on5HxC/xCbYBdc+mdC/xCH/vUygiw1Rdu3Nz297p+hu6aX/3C6CS7/4YT/ouiRJo0cqpR7 J4Gj1EW4aA//anTSyWcr+68J+8gRz47Ce1vS/3By/w U8BS/K5V0Ow9k/mNh/BWfsO7r+n9a05WD6HdL1S7wu9j/JTdQ0H2E3EA/xqT4LfM4Zxhsc2D96IeQ36f 04Vaxe9AWW+t5di8fH/YN7E/0xxY8mm9K/2K3D2u4A+J9Dn0/2z13gW4gyGtAN6ryLxmr7C9NFMn9A0P /zLkoYO/vJTwt/UqnHqi2ObBtKtdoLZ/T9fXD2Z7/l 0z+vko7/ll2AvFgc/wV/JYRZul2IXMZwP8waFRTcrjhUBSa1p7LSEKvy+ohdLC2w3D/x+Nh/tYiYRzec d3HGMd/6qDO0Yz615vxt/A0ekR+gsvwdp1wO4r7eXpD/ULGa6Y4jM2CKY9tug4t/Al6Ca/+7wM6Am00Q /mth/0UM/yFw+Q+LluDiJ2iYpeSmmyJ/XNh/xfeysP /HRNbgk7p9TE80uXzyCpw+fdH/A7xO/W+tX8tr/VrQP8R+fYkL+ufg9Vq/lsS/FuJfhtfXtQ/G1EQ0St 1uiGH/PUV9f74Y+ykwdhB2F0gnJ/fBjqwxFxi5q966rWcrfA9hjAiocFH6r/upper leather cutter/fBn7dFl7dD36j+wG [file] AgbiAKMDAwMDAwMTczNCAwMDAwMCBuIAowMDAwMDAx YOX6ACOwBVUvWM6vNuToGVQtPJMsJFBtQiS6WeEcVcZMaVVirKjlszl4PKrkK6e2EUMuGKavDW7nalBx WHOjWufgKk4swJK6XVNxTjwIPk2Gv5HnbaH7ssKzDxN4BwQxFtLuTU0T ID Date Data Source [id number] 03/10/2021 10:05:55 PM EDT [facility] Name Value Range Interpretation Code Description Data Renee rce(s) Supporting Document(s) Discharge Summary [facility] OAJSGi2pSyZZJrVy96/UNNdiCTGtw4ZjJFmoKVc0BBrkQXNjE8IwQNU8fT4wPVB3VZyCRkMdOmTnNWTi lbm [file] EqTPUtKNRwN4F4D5WvIuUfLtU1QKIwAW4hDARIJh5+EJfdsBWisQvpEKUVByPuQeK7IZwmMLTTRo8A ID Date Data Source [id number] 03/09/2021 10:57:56 AM EDT [facility] Name Value Range Interpretation Code Description Data Renee e(s) Supporting Document(s) History and Physical [facility] NCTJCg0rSxUNPcYl21/CZFjpDINyb6KpGEbjAEx0JYvuUXIoL0GdKWF1dC0cBQP0RGdJFfXiXgDyCAYe lbm NwKfaANwNnSNAxSyeMTxGdWKenMznzfUPhSH7VrAC8DJUiC64hNLDtZRSqG9RoZQB8DEB+Bm8QDNGbnL ItIA6TCdhZ8I6tY+TGEn4/2poALW3k4wXKwJp94lqpX4ZhmYP0KvB+xFJODwjwQWFRWd395tfaKGcw/a Kc0gHmkp+NycbR2vZ71+ruslLlvz/YQnr3ynsX/5c/ 38Yr5sn051+pYSzuOVfjkqnwrMiAG8g0xWA/0nl0C7x0VLbfWFUBRryt+cOfdFIG7ve4NQ6BW48p3B3g 9Th63ckzQFZMh0ZsAlzZeej2anKUL36/r05+V/py1wdOVTJZTPlD2gphreaK5RbC/jN8zhAm1iOb6LEK gGnaRSOyplM4jdkmQN2/02qWUy/gyNRm2pumnWsjF7 t0OSkSMXXK2z0EmZsrkAeK00ALl/4s8cW+KwUuTuhHd3SCLM5Xo8Who8NwSV2pJYqEG0nVL119NEvp/J kuxCBaMM+qDUFp8MJiZpKSuYHH6Xs9qb/x+Uk+onY4akjMU8b9t0TyfMQ3wN6fe7hLIlyW4C+jz6Fj1V T7uVTDmNQz3p15XZVnz7VA6JYBFhkZXlePU171yUm+ +JDBrR7UzhdGyRZVEEcQcEDMez5j7zzVpoU729zijc7erd7ui5JvjvyPIecbM4rJiK2zE2vtWtDDwvvT jr6EyTPr0Pkp7WgzxoncSuBxdlxp4BPn/o+ucX4Zq7m43CQk07VZhb7jNfymwrtCxghKoi90nLzVyy9E bkXG1+RE4QCuaMqiLZi8P8zLJNVoa1gYlNOsHXH9lK obAgrgTU5yQsF8oNQUxuPtAPo+4FvPn4MM57iP6xuJFz1WUU0SZqM9DV4fCtpudu9Bm9uS6rl1VNHSb3 QhPdfJUbwkdk4fWEYEWi6RkkfW9YWDsA6zHIj5Q9q05JbMulx+Uycj+bjGD+LEFwNbhk118vNTFvf8RV 9fqANERR4kif0H15t14TUxtwNv49313F5/cS147ez3 [file] 56l8+rV8V5H/R9l8Bd+VFP+7a/ymb+qRynDg4a [file] Cv1ZJXIJL6YGRf== ID Date Data Source [id number] 03/03/2021 10:00:00 PM EDT [facility] Name Value Range Interpretation Code Description Data Renee rce(s) Supporting Document(s) SARS-CoV-2 RNA Resp Ql HUNG+probe NOT DETECTED [facility] This lab was ordered by NESHA hicks and reported by NESHA Cordon. ID Date Data Source [id number] 02/28/2021 03:22:58 PM EDT [facility] Name Value Range Interpretation Code Description Data Renee rce(s) Supporting Document(s) Operative Note [facility] STHWLv8zHiVIHiVc06/ACTsoFOOtp5KyYEvtNCf5USctCWLvY5JbRFK5jN9kNLB0LEzFBdYzUaIiLKJq lbm [file] FZAgZlNgXE4NWl6WTkZ3XDI4yZGfGl0NFPVmKGeXVhEfKH3KBUw= ID Date Data Source [id number] 02/28/2021 01:06:00 PM EDT [facility] [address] [place] [address] [phone] NAME SEX PT STATUS ACCOUNT NUMBER COREY COTREZ DIS WILLIE [id number] ORDERING PHYSICIAN LOCATION MEDICAL RECORD NO. Victoria ZACK Viraj-Dana [id number] ATTENDING PHYSICIAN DATE OF DATE OF EXAM/TIME Tyrone Garcia MD 1990 02/26/21840 TYPE / EXAM US Echo complete REASON FOR EXAM cardiomyopathy, chest pain, 2-D AND M-MODE ECHO MEASUREMENTS: Aortic root 2.3 cm, left atrium 3.74 cm, left ventricle in diastole 5.7 cm. IMPRESSION: 1. Technically difficult study. Suboptimal subcostal imaging. 2. Normal sized aortic root. Normal chamber sizes with left ventricular being upper normal. 3. Normal aortic, mitral and tricuspid valve. 4. Moderate global hypokinesis of the left ventricle. Estimated EF 30 to 35%. 5. Trace TR and MR. CONCLUSION: 1. Significant LV dysfunction. 2. Trace MR and TR. Reported By Dany Berger MD on 02/28/21 1306 Signed By Dany Berger MD on 03/12/21 1332 <<Signature on File>> Date Time CC: Tyrone MATOS (KoutsAllan Garcia; Dany Berger M.D. Techn: BUSMI Trans Dt/Tm: 02/28/21 1415 Trans by: KULWINDER Prt Dt/Tm: : Total DLP = 0.00 mGy-cm : Total Radiation Dose = 0.0000 mSv Lifetime Dose: 19.6248 mSv Name Value Range Interpretation Code Description Data Renee rce(s) Supporting Document(s) ID Date Data Source [id number] [facility] Interpretation Code Description Data Renee rce(s) Supporting Document(s) Potassium [Moles/volume] in Serum or Plasma 3.8 mmol/L 3.4-5.1 [facility] ID Date Data Source [id number] 02/28/2021 09:18:31 AM EDT [facility] Name Value Range Interpretation Code Description Data Renee rce(s) Supporting Document(s) [facility] BPVMOr6zDvYMEfOja5JtIsTtBYMdDW1thqx2I8D8tOEwY6XhfYVgo8cnE1XyA3RrJXKkIADACR7GwLLb jb2 [file] /d5/FmhbC4+cWUF/VmhbC4+nEnmkVom8OKLDOPY wopWmRGbOZ2OR9ayEtyoIIPqbtqu6IgOEolw9wRaeOh0kyLTedie7xZKp1mOYD2sGyRzuv5nB0/o0O0z L/i/8ILuifoXwrr9MDJ/cxkDQeM8q0Eml+jJJ+qDpuwD0cEC0cIs+EyXKsBPjQoDhcNFSQxUJf8AImcl pc4m7rx35ykpmWK26vxAFN4Hmoe9W00z1Y50g1E66T cL9tPtuRoNp15POFBHUDQhFFgNbwrhJi1AogbNN2uQC0L2dp/Sergio/fA5DQup1pzVEyrK1wTpPMhef1QL zNQOJrYui2x0SNNWasRmkl5ek94enjUfxeEXB93D7GibGUUk2DetLPhUfOUXL4Ze7Gkm48gvTFsvo57A 4ai1FtcxALmooWUnofT0ZtIimJjggGQZyGNqlS4rYw qiA7oxmavl4DTJjm3f7ploj1u/XOKw1/iNuGbkcsj3WvoFeVNKwyGESG+ZZk/gGHFUNaRTL59y3RYdhw mO2m+AXI7ELu0dFhMXMlxFO3rbHyUQeS9sLZdr+z0KhBJpLRQp1mI6PiyPlccwrWIc02Y+jXjE+UHst+ fzrilaXHsl/ZogO9MNdhvjcIxFpQVilcejrt1RyKeR 5HTmhSr2BmaqfP6wOtxnYbYrRQv3/CiYjZY9Nkw8OsepOMyr4z3Kp22yEkDya8veYeqyonQceOg7l3KJ 9xZTs2HTjPX0cSRT/K21nnmu4bNoAD8UdH1L14qaV6DwqkUAyhOyg4AckNOBh23fJU1bfs1KpWwPCdsX ceN5g7Eox3mqS1iT87zaLH42cX5s3bC6Ug3nN4EpYB qCoNS1AQvJINgNXe5I8muUlrg2Z1EJf7H4utvS1UAWNAyUUiVSw5zgKW0rBOWbqGaBayZPAUxhpts+qT W0uWh6GjF2I5wkwwYjT7j/Xjzx+7ifQ8PR//5eO//LZ8/PXH5//p3qmcueGGrsST+9mXv/v607d/8/Ht f/4zSo93i39xeipA9+c/+uKoqCH6W/YpEW1+dirlR1 /+5u9/dK8J/wb22A2ojrUj/q2hQJt9o/3N17/7+M2vv/462nfPZ7/89JOff/XlLz5+8/XPf/vpm29//v b0LalW3437mDmou727/vnXnz6++fT5m59/+u2Xv/jBzdy+5S3n95CFXFOYKhNufw37u853+OZnv/v8s1 /+hd3u7++92y8+/fTzx49/8/CFxaPt95jwsGh1Xb/7 +PEvfvXVf/5Ep5L5eN6//TKmrvei89C/jrG8Y7dffx/du/3jzz59/lTNp1861g+/+fSTj3/8+egm9Tx1 /Msfc3g9Wo0kh7B/8z9Gi1rSjoLj/+rj25///dc//+mrrb7+/NBGw183+u8/+/PRXr8v+C0fe qjr76Xa/+uO//v7Pf/j+Xz7+2//++OWf/vQ///v3f/ 4f33//evTf/c//+P3Hr7/7l+8+/um/9PpPf/3xpz9+nE9o4hogFsiH69S20jpLy/jN5Z1Nz+6azf/wh7 /2h194kWhWW6htO/dC5hDx73L1xpe2u/8ZFMxKCeQ40bP1G9pj1vvd3wiexE/8YGjuy8ZMk3MYQiZ3bu Xq0x/MH4uvUV9tWf48/l+///Ofo8G++Sv2e7mm/vjx p6+//tW802fX8mjqMzh/+I5AkOhjrTdFHaYIDG/8j7QcjYX04IUaK+7kwX77/R//428//gyoz1bT/vpO yfmgvh5FD/iYovRgZdkPa9/gr7/5+P0f/+P7P//f3/3bX6h+N+mjve60Zk9/sPoN/xT16252f/96Xfzv //UJW8XnGzv+UL+qeLB/+Px3//D5n/k669PSX92980 621czv6ncfOGGhQHRDvEcmGhMXWiIOBoA/44eXtaFf/+ibH33++O7/+f7f//Ma5uq12a/66acf/+hOHv L1Q854/O8//9Nf/2Dv/SR++u9cjou2n7o91lGyvnyj//zdv//+uz/+lWda1Z51/o8/PP55a/r6t//2n4 99WvGbP/3pD1+N06snK5jxO/7Fn/10r6RatXfhubMK vcPn7//5v//x9//5coWmSp54fhb/82+++rvQB2nZx9s+9/94db1/+eIfPn/1+kZ8+o7bfjtdw24/f/uf Tx+ORNz/q49TP0eSq5kSGT2/drmnQ/YxcrT+9Xf/1/cf5eNP//dx9qKsbSStMAJ+vQcQfRQ/Pr22e/34 9JPPrzHlHjI/ip1h/Vff/MGGW276jQaEos51Zc837t xQtN3m2v3FkaLO12At/x+iNX+mQfErCMZ9wxVdlZmltaTpJsrRCRtjIJCoKpq7ZV4YeTMaZGVpG3F9EY Ikwm3eTVQaIOCqvGCnKxYuXORBAY9KgETnKU5UNXr1NFPmPYYtYfGbQVQjrfR8JMOlVUDtMEStL7Xbtf VudCAyIDAgUj4+NX1mf0PvWqOnZODnBhm8PT3JlFBx CW9YeWYrjM3ctjIuF846syGrBLCkXljeq8NsVUcaZDFJLU9QPHA0KMT6AJWaSs9+JO3jh8OxGaXvDTPx Pel0EH5CfYGwu0WpXI6TO2CbGKQyOWBIGGG7d6KkGGJbsclurkyfJ5WbPPE1mO3wQNG3KLAfUZepTHVw IMcySgK1RSdvIYrnBWDfPLRgFMQxYNYvATh6mIRbJH 6WG9JmDULhWPMTOPYrooPrQo9gSEpTEP8QNzlrX0kRFYEQQQJ0BvYwCdseVZ2ZbUGnSIN1RAzOLHRNWV lSSHbtXdAaj6T1ZBAqZ4JgYMLxuiVaHBFPBWqdOpazHY9ybMeoflqvJ5TocGEuTBAXAXBySCOjYYEqLB CxC8Fri3G3F0QrUKyHSGGJQXhWWSdpBbZ7d15kjjIQ ZXJpZXMpID4+IZ3jr6TdSq1LSUIbCU7uplc0XD6LxKAyWU0ZKEgamfLdV4evxjMtSgRaDEHRSI8qX7Lz mM76GZW+NqFgKU3cbbm6xdFdBiKaJQLiKWHiOKLlCUsaYQPfUJLbSAOrCQF8RKT5URElUdSfATNxDvQ7 QHzrIMSrYYSkbsTRHCZrNBC9KePgLpBeDJIcJLGlPQ ntOFFjJUtmMnjrZRWsEGRnDU9wSxSbGXQcJFKlVJSaRyH3BtVeYzRXNFOsJHSrQPQkYzQdCXThFHHpID biDNFnHQDfSTp2QSWjQAFxOC0cJlHoHTKuXOLcHBJcFAKpMAVnhuGLASTlHHKvFJB8JNPdDOYwGYDyAJ soOFNpBLSiGWX8IEPkJNRgAW2oQfNtZCXpEWO6GnKo LCGhSCHunkIBGILrPAUeCVK4YQKcCSRgYXBlEFlxXEKxGKWsRjN8PXVwTJAwEO8oUzDyKGQyXSZ7TIEa PGTeYYOfnkETLQQyOWYpTPn3GtHuPVLfRGMzUZmfRZPlIHVfYZatXDUkAUQhSP4wJkCtXFPoACNeGETk HBUiRNZedjZNJOPqZMUuNEX9VrVtEHJaVJCpSQxrVP ShHPMtCBM6WQNcJVJeAZ8vSxGvSODhObEuEZOvWHRfCQRfqiBYFSNdQQKmFFAlULFcHPRgHJHuRSfaYE GwRDYdFrL7ZMLmDZPzCT9yMyTxYJVuHGC1OIDoHRPyLDVacoEUEGWuUBRiJIQnKZD7WCQaIMFvDPx1iz XydIYhHjh3Xy9PzFmaQHQ9Vf7GgyUdZYTeJGDNNq6Q d343YSYsKLLTDwy+UwsxtJXtkNsuXQTJIdA8VRJHVJNXL5K= ID Date Data Source [id number] 02/28/2021 08:53:01 AM EDT [facility] Name Value Range Interpretation Code Description Data Renee rce(s) Supporting Document(s) Albumin [Mass/volume] in Serum or Plasma by Bromocresol green (BCG) dye binding method 4.2 g/dL 3.5-5.2 [facility] Bil[facility].total [Mass/volume] in Serum or Plasma 0.6 mg/dL <1.2 [facility] Calcium [Mass/volume] in Serum or Plasma 9.4 mg/dL 8.6-10.0 [facility] Chloride [Moles/volume] in Serum or Plasma 105 mmol/L 98-107 [facility] Creatinine [Mass/volume] in Serum or Plasma 0.79 mg/dL 0.50-0.90 [facility] Glucose [Mass/volume] in Serum or Plasma 79 mg/dL 70-140 [facility] Alkaline phosphatase [Enzymatic activity/volume] in Serum or Plasma 87 U/L 35-104 [facility] Potassium [Moles/volume] in Serum or Plasma 3.9 mmol/L 3.4-5.1 [facility] Hemolyzed Protein [Mass/volume] in Serum or Plasma 7.7 g/dL 6.4-8.3 [facility] Sodium [Moles/volume] in Serum or Plasma 138 mmol/L 136-145 [facility] Aspartate aminotransferase [Enzymatic activity/volume] in Serum or Plasma 31 U/L <32 [facility] Hemolyzed Urea nitrogen [Mass/volume] in Serum or Plasma 10 mg/dL 6-20 [facility] Osmolality of Serum or Plasma by calculation 284 mosm/kg 275-300 [facility] Creatinine/Urea nitrogen [Mass Ratio] in Serum or Plasma 13 [facility] Bicarbonate [Moles/volume] in Serum 20 mmol/L 22-29 L [facility] Alanine aminotransferase [Enzymatic activity/volume] in Seru m or Plasma 27 U/L <33 [facility] Anion gap 3 in Serum or Plasma 13 mmol/L 8-15 [facility] Glomerular filtration rate/1.73 sq M pre dicted among non-blacks [Volume Rate/Area] in Serum or Plasma by Creatinine-based formula (MDRD) >6 0 [facility] Glomerular filtration rate/1.73 sq M pre dicted among blacks [Volume Rate/Area] in Serum or Plasma by Creatinine-based formula (MDRD) >60 [facility] ID Date Data Source [id number] 02/28/2021 10:06:[address] [facility] Name Value Range Interpretation Code Description Data Renee rce(s) Supporting Document(s) Leukocytes [#/volume] in Blood by Automated count 5.7 10*3/uL 4-10 [facility] Erythrocytes [#/volume] in Blood by Automated count 4.47 10*6/uL 4.1- 5.3 [facility] Hemoglobin [Mass/volume] in Blood 14.3 g/dL 11.5-15.5 [facility] Hematocrit [Volume Fraction] of Blood by Automated count 43.5 % 3 6-45 [facility] Erythrocyte mean corpuscular volume [Entitic volume] by Auto mated count 97.2 fL 80-96 H [facility] Erythrocyte mean corpuscular hemoglobin [Entitic mass] by Automated count 32.0 pg 27-33 [facility] Erythrocyte mean corpuscular hemoglobin concentration [Mass/volume] by Automated count 32.9 g/dL 32.0-36.0 [facility] E[facility] distribution width [Ratio] by Automated count 13.7 % 11.5-14.5 [facility] Platelets [#/volume] in Blood by Automated count 177 10*3/uL 150-400 [facility] UnconfirmedConfirmed ID Date Data Source [id number] 02/27/2021 07:21:[address] [facility] Name Value Range Interpretation Code Description Data Renee rce(s) Supporting Document(s) Bicarbonate [Moles/volume] in Serum 20 mmol/L 22-29 L [facility] Chloride [Moles/volume] in Serum or Plasma 109 mmol/L 98-107 H [facility] Creatinine [Mass/volume] in Serum or Plasma 0.76 mg/dL 0.50-0.90 [facility] Glucose [Mass/volume] in Serum or Plasma 103 mg/dL 70-140 [facility] Potassium [Moles/volume] in Serum or Plasma 3.4 mmol/L 3.4-5.1 [facility] Sodium [Moles/volume] in Serum or Plasma 142 mmol/L 136-145 [facility] Urea nitrogen [Mass/volume] in Serum or Plasma 9 mg/dL 6-20 [facility] Anion gap 3 in Serum or Plasma 13 mmol/L 8-15 [facility] Osmolality of Serum or Plasma by calculation 293 mosm/kg 275-300 [facility] Creatinine/Urea nitrogen [Mass Ratio] in Serum or Plasma 12 [facility] Calcium [Mass/volume] in Serum or Plasma 8.5 mg/dL 8.6-10.0 L [facility] Glomerular filtration rate/1.73 sq M pre dicted among non-blacks [Volume Rate/Area] in Serum or Plasma by Creatinine-based formula (MDRD) >6 0 [facility] Glomerular filtration rate/1.73 sq M pre dicted among blacks [Volume Rate/Area] in Serum or Plasma by Creatinine-based formula (MDRD) >60 [facility] ID Date Data Source [id number] [facility] Interpret[facility] Code Description Data Renee rce(s) Supporting Document(s) Fibrin D-dimer FEU [Mass/volume] in Platelet poor plas ma by Immunoassay 0.32 ug/mL{FEU} <0.50 [facility] A negative D-dimer result can rule out v enous thromboembolism in patients with low or moderate pretest probability. ID Date Data Source [id number] 02/27/2021 03:59:26 PM EDT [facility] Value Range Interpretation Code Description Data Renee rce(s) Supporting Document(s) Cardiactroponin T pnl SerPlHS 31 ng/L <14 H [facility] ID Date Data Source [id number] 02/27/2021 09:40:56 AM EDT [facility] Value Range Interpretation Code Description Data Renee rce(s) Supporting Document(s) EKG [facility] KOHXCk2hOoSEBlMfz5FjKxKiNWGbFN0btas5Z4Z9cWPyF7JaiMSnu6fpZ9JsR5QmLQQsBNJBJA5PgSPi jb2 [file] x9b0+O/s217+3J0b+63n16Ctn7416gw6pnfhQHjdqT ikWa4SX9sOmVDNB9jsShrOGbLAOhS7OTmHedcUUJA+QTChOKSNYILQkURQC1NmOMeKDLGQ0XQJkaW3Bu EJx1u1TdPT3DX8JY7VyupAaD1bgAeWFiyukTRaKr6NdyFutIsvd3oEKnrH5Ux/hoMi03oD8RT3sXn+jW k489eUiap1tidm7caW/2RD+96M1b3puwbeKTd2dNxG Ksfc+mfkQXFTwplmvtp9bKrbjQoKNxXGDxcRjcSofrWZ9Bo22/LIE4bPXjp4bIdvAIfdZkgQOJKp3Vg0 /fvvV9WX8OAB3VMVdBbwqtCaHS8UAYl7ezbkJclXXU4MnNqrnckUdyYboPjpIUoSjlKCREUqoO4SOOIC AaUZn4nhf0DA4Cs/qdTKV13ybobr7gRVlFsNWQPJvN /NFpIvKej6SWG+PSyRNzgfrJgR/dLta+E57Z1fcEEDGr4i18zkC1cDLdTh+g3PkKANz0A5SyxjIhxx6G g+UwKIXGZ1shs+eq+MjBjlXx8/eQoyca6oG8SitAV7hA7Nz4P4cF3snF4BafIxfdpGTb7ShlNrnDx2fH 3BZ9KVGLHGSGHr60zwzTeSERA2TCNQ8TR00Zo6kk9V KvunfAngGade7UwRMxfY1DgQ6FQMwEjUKOW+SlJ71HMu4h63aRUH5323l4HG8A+6RzvwGyK48X6IOQSC jzn4hBRI87QO7afTlUMf/HQqfGagpiscIt4Np/A+qgP7jI5pfCKOWsOg+O2jrbTnV2Ll19L9bAZc7PR2 QGESfCPtHZH/fjINp1GX/ulhjnmUH7WpPfeE28fAKF GAhGgZYdrzbU4I31tr1yL3dU3Z6z81JiG5hXFwBR4VXsh7HUnXTnUNibDjowqujwQVjxnVlQ47XA+4Iu 1RuFLIbQTIIAqKPwdvPO8V+VQ2vjwFxjez8DeixUK6MYJC8Jx2pbC4eTXifksZyGQ/dBkie+BhHBOckT 42rJE1+DiPEcQ1+UMKRm5yA5Wm/M/i14ose+MMETs1 hCczuti0jfnervnNqM1CmRsQLKfT403k9ly5iqa2Ky+97OIxpYoNV6Q6ondw3+Pot Maker+11hUk41raAPGa6 [file] r/J4w7+vH/xGGiTJ5gHEA9mPTX/4lYJfKfiVBr/[employer] 6Ue/wtNZ5SetVqj7ok+bQGPY9SkgzCv+H7vLtyu8CkydrEm9/4EX9nqv9/+FyaVQf4krTl9IaojT+P/I nXI/vQh7xE24914sJnJ4o0f13pnNu5j/hGqTfJg010f08imv10xwqId/r8xXu+ZNaes4X/qp663x/eEX /L56wE/ung2glh7epr9kk+/2V9f30MioiKk8uCd14o cYkJ1imgJsqUqt/2cTq8gNy/xW7nF8OF2Go//RdL/XbR96Cr1bo3wmk6JL+Et7gaPH95+F97b3gcjx00 JzgkqzQ9Erg6j5eXu3/e6+90sxCppmefo870nR3Kk0xZYV3wQuV3m5Et979fHnEFg3/fam/2bZvYZ82Q 4eFXM6/gkJije5hkfHgskdeyLcZ8W/st8/47/q3yvs e3HQa/KcO24gutZlzFa5d1W+05+FUe3/1CA94q4BmEixR3Yzgf00rzC0xi+Iy/vgtRO9H//Nf8YV6Qr1 v8/oy/eTzhn/j9wvXP+JvHG/59/Ydf/Y7hF/yVwd26QJwbUXn30ftt6Zd8e9xxNwwtuLx0+8DvEW/wq/ z5jNZolr2D6pM2Pcr3+bSjice1izp9R+YTomNt9zz8 7xV3YmhJ8EvdvSh/3g7w0Dx4/PH7E+97DP+Agusto+km8NISW/wL/g3/xb5Jn84D/J8Ezj64FddW/hNvPMuH X73HBr/B3+Em1L27F5nadFpcYcqnd9MZq7Y+7D6siD4+yaB9VVab+QhmmofA74lno/7Dr+7x9T/86h7D L/AL/Aq/wm/EQ2iyfcjwJo3//LHlxNMU/o5/i7D/2t JqVhwi9E2Q9p/4xJu/OfH23/rrewz/hn///Gft9T3+4ubjxF6GebDvbFBAl/580NG53RRe9ov71qy71z Pk+yq8zDuRn/5Dt7aCzAZv5cw47qujlJ1Sao/aQ/hPvLEW+hAvyQsC687nuSCP7M4JJpl4ww5s89+xwq +/5/NhmN7b3xbhzqt3rC/MymZrj56d/kkbed3yUL9+ RSy6Yd58lf9AUm9hHs/nV+M35/dIpNJi0kaBlmx7wbS7cv2QvtrvnBZ/eo/hV/jv+6+FfrXCb+Med/jv +43u6OVsaf+bWi8H1Vs8pagcE346llP6Echu/qtvmF3+bNbgF/fIgbRw8Ym6QS/0K4N+GZI5eiA3Bi/D n3nFh1jsOp+CH/SryG5p8JeR/lhZq2ohXV7c9Dm6pT /Rd8fdjwIOh6tjGc+A3+F3+Cf8E/4F/4J/w3/c9c076OfNO5nqZCtejX5I7j08lx2GYwt3kY/j6pMW+l UeO/wO/4R/wr/gX/Dj/q61K6o4flJdF1n6uZkWn2hhG2e9foHbX9x4aKgE72Qt/b7/okPHq8Z8F2q8jc LrU8p8Or99Mofsai0d/AK/iZ86W49sxrf68bcb/g7/ gB/04VY9L6/ksXqlHhZ4tff6017X+eQYg1yIuh/4VfTV6+p1tgR+gV/hV/gNfoO/w9/hH/AP+K8+eZYz /44n/BN+eGkz45Mevoz5U4Q3B0Az/g8O30tsEhi17tR7EC3ohRr32DjsU3+wffU6C/3q8CUL/So4T+hX 7zH8E/4J/4J/wb9x/fs+2EO/Sw11ZwYwERX1zdG2pu J/4h3xe/uV20O/cbLFe1z/wD/p85uf8bs+hH/Cv+HnvHvAFZbKMRwPKG1K/AK/wq/wG/j5wr96OseP+l UeD/gH/Pf+szp8r9wZd4G/4F+4zsb19/QglgSN8Zs0Tb/Cj/sb/Oo9hv/ea06bOid60kPy0/fQrre/6n r3y32Cq+qrQ37ydFZ8ng/per+orOKkBzbruhZbY0D0 pb3nq5LnJA7cf1R10zbq6NAQrhNxaeycNY/l34F10uAbrJ7ftnBKg+9v3Lcs4uisEX6aJ/nyD45LyUOP T6dQ2VzG7qJxj6kUP4/ihGO51LMA0zQl/dopQB88zYLMSz8Hj/Rx0dOrB26jryghxxCOrI+excXectHw E2+7V9oqJT667i0/lJzFq7V2M3+wLWJ4rSd00ifWaG nsDKMjOyF5uPy0vMDjBJG8t7E1wCp7CoFCf3rG/0F80pjxc4+9/uf+2gr/e341Ob469q/m/EDqWc8g5D af5oCNXwEbmR0jBlwh8bm4sElTAb0+/Wx2GM5kyPtiU182byIbVnVY0UTkLGQ+4xm/2gZd0fAdN7y9+L KosZd6G5k/9PuLna6I9E88+bnmG0fszwnT9x/f6OBX 3S9/7qFfRbx+y4l08Q1mbYB4K6a2tVp6cPkl656nw73Wyna+go8rT55F8Nu8Ub/Cr/LrzaAIeY8QJ/Sr 9xj+Af+A3+F3+Xa2cPud8bOX6pwIc7zIqv/41XsM/9Xr+jk6YI8Jc7Lc6Dm1Gw7O/4B/wO/jqb8j4ej4 bA9+XW2lwQYbMRqAM7/owa/e4+sPfvUew3/1jbP4N/ W9s/T2WGXg1Op4i6Rq5h3CTpY5300LfvaGve/BARILLAS/0Vc8Qn7K73ue56/FdX4pK3ZOyMzS/l8YZ//3SeEf uShIcn5pENUvqW7nQ0Ej/Wwyf2ygT0kgV+lcc/nWpAvxqhX+Wxt/sbx+8n/JAHAIRA/o5iciNcbO2Sv4N/2vY 74eoT1DJYFS/nUuqXeaU5ZP3pTHhcG/gG/25eV1ycI Aq28kWBt1+UaTdev78T2LN+/4v5qu/ix1bkxydJvvXxq/O266pK6S5c0Cr3c0e0o1h9c5ynqpKsvMY1D Z/Kq5D7N3Cc49/v3q7lbeflIhzXZQca1x+21G8afCg4hfsMjJnm873E654NkhP2NUgSxh0lv85GX/WpA zgxGz9MV/B3+Dv+Dv9Zy6T81O9O+8pU2qjA62KzH91 9c5/LJ0a++MXqDX+C/7/lm7SwPD8q/8wlHv+8Lo9/xd/QOf4d/wD/gd/gd/gn/hH/Bv+Bk7I5wu2J13f xRzzVs4iK65CG1wjGevwKS7ayo/g7/gB/3F/mFoA96bS1L3JwR+tWAfjXGhv/qkyPnX+Ux/Hd+zvCr1w 2/et1whd/ai1Q7Gu2s6If4as62kU7F1HzY+sRngu3e Xr/yD8G93xp3vOXuFyyt6NUCVDiTu+9U+BV+pQpG76L4N2/sMAqV4K82kpM6w+L+MmylkIdp8j/E/Z24 aupQ80Oee56+PDD/aiyFX+E3+PEaVjtP93yM+Cj3lP8A6G9PedHsEhgM46ge/i11Y4vy+n7pPE4ufj+i w07TpmbZh5KwP89W/f++3/gZ8Da91rO6+Vl3J45P7+ Gf8E/4F+qzUM+N+l+1uyrK25vB26zMV/Ar/Aq/wW/wd/g7/Zo3zRjeP+vttmfH/Ruoi28Qq27Za2qZ3X b1Om/4fuWPj0me5S/wM1ElT6dzwwGz2iBK/muiWut5WirF/+h2Jq0HzN704DwGt5/hn/BP+Bf8C/4N/9 WvHPqVQ7/y2E4adr11jat+9R7Db/YcobI09deiffH+ Ab/D7/BP+HF/Q796j+LEhSl2KrUw6tK+8Ke8v9pLcAS1II3VR/Qw5qEIy1uxcD8sqQ69x0gs5EidH65a 8C/4N/xXj/V+6V2hr046d2aJa3SR9ifeBlvy8jq1JWseUW3n3ghLy/yeZNUW87/RkvCqkp1prW+eE33L 4Vee13/izRWGh1+9K2+PfhWrFUO/ehettkcTC/8T7/ dMpC060l3eRF/AoTlc3xhCVjIikT3iqgbQNDrKLt+To31VOv5fRvCcEgNJ1zBLpGArvNUz7cTn1GoqyM yI4w5cA+c+5QxjoN2aEMcy+0Rx972cJg/5sxVFAxVAu2q64uqfDaI7sjIH2W6+/Kq3PL6/P/ak2H3bYS W6nbEB6A2F+zwys3T6Xno+3cwTy+FXMWfvLFHNOXtn tzeEifjlYBZpTfE1gEk72POrOR60+MVS1KzYX/3909LrtpPgV+24O4mTa5OI/hdCB276qgTbLi5Ghg05 Rz4V/vt+5PO+H/dh2Gr5A/yXb/j904g13eA2Mf/3Mg/1Xo1dGDEc7iupWj81t9oRSs6myE90achPU+AX +EO/+i0/Nu9J684x76Io9z/r88a27evcR/y078zB6+ [file] NpL86+1BF/97jcR/B3cU+X3u1+wqV/head of art+p/TuFwkL+V31u+iJSu9+vcJrrChuhqidTIwC68N0zANrSJ v2BO0BI+ndL+I+Fp3uHmfF3xvX/wlDq4q3hblno2bp 3cUmD1YKOISMKhpXaylfoxLszzj+3F7uw+3lPpyX+reo1u04LQhDr3u83DT4Ptmiiz1/p+/g5/Qdj7Ah qSSjkJR1u++ld9+L42hup64i4MsoQDfWXHCfr5a2S9dff+OdkFDQNb1H6CFQ27GijRM6B9niX76Au/27 OXibk/HNxMWZYZdupmLkPe9i1XFrc1Q6os7F39OqFv +qaSunxUUwZ55M34Hd8J5PNT62vholS/vpS2lBBzSajZw9i4bpkiUoZ0Pb6+L3JHdx/9Sps3canRyRJ4 k4Fg0ydB1/F77bLX/XHL9Lv+3wtxWvhP9wc6u+Xujjm+nXzYNvpl/37i/93ehtpr/rB8eZ/q6V/3nL37 3N0t+Gj4bH405f981wf9q3mtc4ISfrbdm4s5+Z/m63 [file] Kf7lsnIJYRGojaepIJmZXy6qEd65P4NDGz/OHvaTEvznut09hk10EgvE5ploN/L+O8dLXn/VzQXGD/Snuff Container Inspector cc9UMtasFI0dCb/HNxfd8/uba+b7NcWt+4JnYt3UwJlC+LJtUQq8Zjg/P8AZP03Byk1DkKEhW1SBB3S9 AOcW7avm84C6xnXY7/ZaJ0Yi/6p/mKoJvjl5J3xd1Q J+WaDwIWujzJJLjI38tH8GSMinoooUurQfnTALUUBTjKhOPkIRiGu6omIfRfS8Jc4ZHkfNwBoZujsxU6 zUDjXuIGKXSWBQlJhLVwnCbvfMXILKrpM8TsgWitrI3lLEAM8vLMEQhIdIr3bCKoqj8D71EpyLdpf3kv 9lZ+1quy9fWOG113aKXlOTuWXzTwOCpz24J093gSkO +KQvykPjdRDx0sLfxn9RAPvHe6HtkvKfdBFtgJLsZPgRapX62wATxwTZt8Le9+o8QFEn1e4+L3yBpL+/ efh/+D2OQ6608PARCiAD8fprbQLBtWf4OBdSsiQR7mcWKcfWHNvzFiiOgiqmlqXDkA95DhRsH1DxfXNW 5L7wUFh7A6tXPeOI0pgVxTi87jkDIwb5ZP07x+osPR JYaXIJVK3Zo9xKBuWaWpmmabkHr4PcnBGVeRr9NniTRpzp+v2zAclnMARKpYZEYB0YC7eV3gZ9hKKjsU AG5MvlwZK3FetJG0bELOnKzyBAAhZUsOmeQubGhwlagaDspYc5lEgwrTdBtUz1L0DDpUvOfZaqnVunSV 4jrC4aFhoQtrJ4iyb0V3yfFeN8wSE820PchSPFNX0P UmeVkmx+GweMNvupA1elb/sisvWTPzFyXLepx/Uealluj+vt5nAOV1I2z0wSwFvuXv0/JFh7+ZxPj8fl bcI5Kr5rfNkRg5fqLv6vO+b9jBw0Kz+d+h/qLMS/0Lpl+ULKcp/zOiUAl3VFXc1DkANTbV3SHsoMurcV mTj/RIj1u5m1MphL8vKQvh1wm4wF3rR9khlf+pekQ/ NjaOM/Py6w0r+Zeinab/XBFYGk6kV3hh28jN/oX/fKSJTwq+rH6N15/1T6data8/mhJqbUm81dsU6uaxuhg 3LjDTpzcpwZijuulKfZsS3xrLtnEXMHqWlyU9xkK33I7nhOHz/8SoERT4zEXYilY9SlFVxe/y1PMsTdQ zxpLq+ok/bJSB81fadvlczGlGMspSrqjXHivKNAmQ8 44V3JOYXew4ao4n7gZRFnWbf15pslxIvY7vy5YFXy8oDOiipF/i1XaoqNMfr9Kvpn65r1EDbN/PB1lW0 IrsOpf+uirmtOwZxCkaoCfK2rCEd+CzJs8p/15JOJ+jqhudnAD74EPblVAug+I+zPfwrawI+hUf2z3kA f94xbWBbApeDaAobe8oo8q9F5RmjXUtcv3BD7VgurL IWig14DmOeDGkQvE60Dfla7Eh1LwxuABjvo7EvNnX5CWcvliFy5LyQS1uIasWSuBDsNWJGYHIpcdRVr8 5aeHT3GDzQzpVdWyQguOdZG7MZ9U3O3mJKSljSTfL3zVAqffme1O2aHqnNIi/OMjU5a0u+upNgY/p0fp XTzDR+hvAR9R6o99JpgabhJ3s+JgK3qe0BcCApLi6Z 9VINaN4rfsf3hWvmzMEZ+PqozraJ8BTahqs8o3c3ks8RTTf2D487qVVXFXfVlpHD8NjCObKEfeF2ROM1 16t8+l1S8tCPFZ6DEpfIke5LU5pn8bDEhhizBN49oufcghh2f9lY3qhnT9k1nx3C2yTdJhB/H9AL2L+0 /40zqRb0Om8xj04M54ojK7Y28zYP8BAyWo8eZm0N6P Hv505dZ+dheZo22p3wQKXTmV8sG74GcRmoukCVwD9SS7vTMTmnjOMNHoLRtlvmumUPhUW5B7oK6kLKdB rxWheQGHsKdKgfx9VDxnBElZ7yDXUQqTP1SomWtjIRhLgeEq3Oq8tdNdL/LvJS7M0zUvyPxPWhTGutcr JuAqEXaDed4plPiFw2x/HpjCfWAy8MD1lE7SefK7xw BZGjLwtJsIKLYdzwzKyb1H5NErMJoHWD/Xy99THwdosiolJ5igIc82HiKONKkki0Z8lDGZe/sa0h4O5z aXcay3xLxxQoKG2keQXJrYIchCkYYL1AP1sF8oYgxbGk4OmZTg5syxv87khM6hU1rSAiJLWCfOFsqWqT FHGLeX+fA8KETalxZbLmJ8p/i7U/lgUm1roR9OKC95 ByBBsDLkXpmHvjEewH6HZgg8muDNC8IycFHCS+ySQ3ElhLP18J1nnOgLPjlE+QgbwoYwHk/PKXmZkpcp eYG/+7gDoxRd1MlD8sW1923H+283KRrMI3Gr872FQtGpdriCBVd89qwqNw9RB3Pbyeek450Ec+m5+Dk9 6cU8uK5mK1Vcaimfv4ucohdXRXM+ZUv/sqV/2dK/Jahaira [file] 1wWdMNhPPQLOKWRQW2Fl4YGXsvCUZMZDDSQIYmBhTz PzIs9YtxCfDp8mFfT/s/GxJc0ZcR44WG1ZhYm+cKYWEGEyc45PdOqYFTVElCGUkCAnZ0wmUKqeXEieGX IWxRzMvbMkl2kYEQ63FWkKaBXAqZz9BWpHOK26PYYfuSH67ch4NX5dAjWMyEHUBsTTtAG5xnCtRAFesy iBnSF2GVMrXqRFGa7f2koWFHcKl/qQ290N603gnraE ycXZKfKSOygBSTwXWNlwdHoNs6GtTLFXfrBUESMUgMiMNfTCL8GCeDQghCEqiGzku+yN20QENxdDSjG+ MYx+XTSIFCIF++b6xN0BLsIhTkVSqQTsyUTgUZCDxPvERA3vz6gltmz6jMGqHXlbUPNWIJsGw0cCWoQ6 VE0mBZwUPGA330xKO5PuWOM7RcVzsQGQAMrF2ir17Y 5Y5OEEa+TUg3tmfxlqNq1EBYXYKMRLD8JLVuCZ+PYDKbMvGqFIw50Mw/F/Gv+ojw1bHsJMlwsoQJybNJ JAloX54KmBGr7ChTWG3fwGRjiFCRTM3HcbwrbyVySXqPku+NJgnDgmkd97qSDpAUF4WhaH8M1J+8HimL wfF17VPvxkj+iJa/PYwB+OxOStcweDadAJjfUS37Vm gFX6IngLS5dNzEO7jC0i8HGw1MsFXJSgUJ1lh6TKuCXWxL8Uhi3JrVoZjNZZYG/v1zOmBK2dCT3VT/nK OzYfFE5HTUynd9HVgB1WPuh0PU/Hqg2ufi4pxPtxtBnNZWbD7Flm8bE2CZezjEDDkClngQ4bTpdtfBUZ FWTKADOqAJsWKzIKdTX2vWfETdgWbBQMAKpJXVHQLN LRpJxZedNNLJ6HBLSOrJlRP0GjKYBG5hEI86wn7zh1vOft7nXRuBbyIQbVNGGNDJwzrYA3P/Pg0TwNAM PjmeNeiYVB1MK+S0qsHGYGoO8xDE+xAq8ARoXyZ0buYiLwdVytIebIXKHCDQjKXEy60EnHXk0rS92Oaw 03B8cBb1y3gZIheI3GbVdwyMwyE1tFAAjclZXFpsWj Sxs3aZ5sAtzfo/6irjlAUohEdvHOhi1GMwMFMXFElm8ZTSjXvyyiIga5CqHzCxPR9j3SDujSIp84hVCA PEknaAlnkXbCiDHE+sU2cjUw1LH+toy packer+m/LZbhAtMhDTlmrEqd4nxPz8NEMHO39hERK51hLVR+/1+Ymq [file] 76i3+u1nk4oZ/2V+9+8fHtZ9+9//dy8y774WGN44/8Shv6B/9S4qS/+Cd8fq06+oQp39684T6/5tW67p /9j6/evX/78ptf/+aLD+9+ruN6/bBjM226Svto/R/f vVeUy/V56//3XbHtqh61Eg8/3gfwP06/+hev2L7/+PblV1+8/+W7b9/ef/Px3c//wb/aqhm8b5/+5c// +Ye//umH/3j79//99uX3f/2f3//1b//89uEv//7DX//29m//rfR/+6e3v/j5zs56fP/6gezP2/X5K6n9 4td/z7S5pwG7Bkc/+tNP/4v73K+PvFyf4uj+02+B11 vY+cHb9dX/G0TqiA9b/8v1L+nhjm1Es1Rhs0R1BWrMgGrosQ9ZUDzT4/ni7xEfbo+QfcYh8v65+OE/f/ enMd8Ch1+9Bvbw590f7aPCx7pq/ubDFx+/+eSM6yf/mlH+2f2/Ed4IN//PF7JnZ/9RqhuwV3fO6TPSqI 1yF/z2hz//7V/e/pg59230KDxyI+mbKuvcP/oTL9KW sgEV3Qj/3voBf/Ph7Q9//tsPf/2/v//jR5q3Kga/2vxzpcY/OPgD/uuHb9/+43+9Dv4Pf/kor9betdf+ uO9q4cE+9eNP//Ak82io06JAM9tBM95K2Sxa1+h42Buypxmt+/WaB+vvH60eurD9N7n0FE/95INtS2++ /39++K+/u2akQ2mjc1+8+2hdx6LP0/1n++1///Xf/u yAhn9D9dk//Kl8O83xgsdg+Jff/6/ff/9ff/j+zz/qjys38P/484///0kjko4rt//9/z5R/PCXv/zp83 Icyd0kO+eMf/HL113pcURpk3+SJU9w/+DjD7//n3/+w+9fh/j5/fb/tdj09EgcEsGh/guwTf8mFn3/8q f4s5N2R431/f7vd+xphp/5N7/+9bv3H7/9nI+6S/JF /z8/uV+U4R6N3Rgm2//XU27Y51/+840X/QEl9bppiQoKNLkdct15mN/bj9gtq9kWHfoJ+fpZPiq/+Heather dx8+b4jJVP3J5RdbuwvUl+0qc52sUo6tAsbRtb2DPC92sdommbSodSBkPP4XZV4au7QuFnE2XHUvm0Eb BHpoDSm1lKFbWOyuebGmf0IpcwuqN0Gza1UrYpWqCP ApLkFpPlo6VTUsMaI2wLKmUaWuUHJkY3WjUWRvYpI3QmXuKHQTSI3KZHNmcbLkNuKuQPT+BgKiCI6cqj uzGZGys7TdVVtjESavYPKuK1L7wUhzEVLkW8BdtL80AHEdV5CofdV3EBZ5KIBiAbXgESHgpFMpINElDQ I+OeJuXJ0xpgrxDDDjc0AjQZqkFEH4lS2aHArJXQQX EOrYMCrlMcD9g84kxgCHWBKzOJDwGA0FqiCmfOprffCdqDCbPOX4GfIcGGM0UKKnXSHqMWUDKHVcFEDb WHZqFQFbV1RlkBlxVEgLSHGRVFhOJIjwJpFap4O1MTRlwsZHSVrCFVTdTEHZRVdNIiNaMkAkNiO4WFTy G4WxnnMteWFqOPCMQMdrJykoBQUppO7fgBsyN9GpJM C2y6FmBF5TF8QmHMOuHSJQJDF2l9ZqBTYopkttexbvAzDvRHMtEZAnICUdKY7Nty6hbWHlsiFsPTQVOF xuBtyfCZ4olIfiltwpY6ZqpFMrHOY+AdEgVR0cwc5+YhDaDTThTfe6ICOcVIjxWVLiCPBnHLTxQ3hqRI EfUkAjDLKmJyJhNX8Xq2HdeNMcEf6ncrDyYdbXrLRl JakuQIGkTFCyJQJmSwLOPQRrPVIuBTDjNAS6USZbFPGjJGsgFAEfOQY2KiNkJYKvZMVcMZ7fLwJvMSAj ZuqdUNjyXHNoAECugaJFEZBmIWK3IIB7OdVdGODaRRUsXIonFFZoZEPvPGWvKRT4XRK1NRKlRrCiDIPa WZFdGUDnISJxOIJjufGGSFUiWFVlBMC8VTXpTYOnMY VfVBxyJZFxHDUlOCgcAEAcOQLzLI6zJcHvFOBxXUHuSBbrCVQaKWTylhXJYVVdPKMbYABxMWWbLHWlND WgPJphXCGuJOBtKVKkBKXfBNHpJN8eHjKtPFAkSTG1KAKcMEDfZYXtgvFOWMLiPKPlPRn3QSSaUQFrNB AzVXhxDGYkFTWxIRZ9VRXxLVGyTO7jBwHbZGSzNQK0 HiQiOAQqJCOsmrBRFCVhWHOwZUI3CjNkLJSyXRKuNQelCRIlILTzMXcyJTUkYLGoOE9mAnSgAEAkYLWq RSijYKCpPUDwtgQVGHOqFMMxPIHnZfUfAALgRWSlIPeeIVUeOSH8Azl0WNXoLEAoLI3jGhUkVSGvUCH5 MDkgMDAwMDAgbiAKMDAwMDAwMTczNCAwMDAwMCBuIA yrTBGvROHsHZP0DMRgAOWtOD2vDqQlUKGlEBOwERFkGiW3QsOyTcDPvTAnjEaqldr8FNbfU7u7LPAlMU vsCS8vzrPjNIRzPqiaIs9zfPT9YDWpJsvDOb8Qg1PrxxF2grZuLaL9Rkj3AiVaIY2O ID Date Data Source [id number] 02/27/2021 09:36:18 AM EDT [facility] Name Value Range Interpretation Code Description Data Renee rce(s) Supporting Document(s) Progress Note [facility] ZWUKNc9zByZKNzRq07/OVKnfIOUsc6NvCXhyCAh2EEbiUDLpK3OeCGO1rK5fKEV1ADaKHaXzVoZxUKNa lbm [file] ICAgICAgICAgICAgICAgICAgICAgICAgICAgICAgICAgICAgICAgICAgICAgICAgICAgICAgICAgICAg ICAgICAgICAgICAgICAgICAgICAgICAgICAgICAgIC AgICANCiAgICAgICAgICAgICAgICAgICAgICAgICAgICAgICAgICAgICAgICAgICAgICAgICAgICAgIC AgICAgICAgICAgICAgICAgICAgICAgICAgICAgICAgICAgICAgICAgICAgICANCiAgICAgICAgICAgIC AgICAgICAgICAgICAgICAgICAgICAgICAgICAgICAg ICAgICAgICAgICAgICAgICAgICAgICAgICAgICAgICAgICAgICAgICAgICAgICAgICAgICAgICANCiAg ICAgICAgICAgICAgICAgICAgICAgICAgICAgICAgICAgICAgICAgICAgICAgICAgICAgICAgICAgICAg ICAgICAgICAgICAgICAgICAgICAgICAgICAgICAgIC AgICAgICANCiAgICAgICAgICAgICAgICAgICAgICAgICAgICAgICAgICAgICAgICAgICAgICAgICAgIC AgICAgICAgICAgICAgICAgICAgICAgICAgICAgICAgICAgICAgICAgICAgICAgICANCiAgICAgICAgIC AgICAgICAgICAgICAgICAgICAgICAgICAgICAgICAg ICAgICAgICAgICAgICAgICAgICAgICAgICAgICAgICAgICAgICAgICAgICAgICAgICAgICAgICAgICAN CiAgICAgICAgICAgICAgICAgICAgICAgICAgICAgICAgICAgICAgICAgICAgICAgICAgICAgICAgICAg ICAgICAgICAgICAgICAgICAgICAgICAgICAgICAgIC AgICAgICAgICANCiAgICAgICAgICAgICAgICAgICAgICAgICAgICAgICAgICAgICAgICAgICAgICAgIC AgICAgICAgICAgICAgICAgICAgICAgICAgICAgICAgICAgICAgICAgICAgICAgICAgICANCiAgICAgIC AgICAgICAgICAgICAgICAgICAgICAgICAgICAgICAg ICAgICAgICAgICAgICAgICAgICAgICAgICAgICAgICAgICAgICAgICAgICAgICAgICAgICAgICAgICAg ICANCiAgICAgICAgICAgICAgICAgICAgICAgICAgICAgICAgICAgICAgICAgICAgICAgICAgICAgICAg ICAgICAgICAgICAgICAgICAgICAgICAgICAgICAgIC AgICAgICAgICAgICANCjw/oJPoU8dzhJMproI6X0tpRu0SBm4HSC8ev4IoZUFuMHalsxPeLhqTPhCjVJ VlMvbANdg3ZDpoFV7FzGHwK3YrG0RvFSqbGZ7JHQDzKHQapNAcTXZbAAAzNcI5FJXqFWtsKS4PoUMqVZ sgNSAwIFIgNyAwIFIgOSAwIFIgMTEgMCBSIDEzIDAg MyCzYRTzTVCjKVhwNMBILT0PTmEoM3WxgY36NXqMTr8+DGwaehCtXexRIdN6OYItp3UpHMy4BL1INGOp Djvqt0GpErgoNZIUDBweST0GPKR2XVD9AYWwQn0MAGJxK726jvMqTX2AZm5VXyHdVR3bwj0ETujuPFWh AcfVBdc2ZWtaSU7RwHMwWEhYgo3yecQoozIVa3Yaeb SyxFAAa1EpqeIhAQTTNOJhNZQ8XVPDVZPgwNC5XpM5JhIsOaGvSAA7VEOsHY7lXCnrGO1PXSR8JRieWX DtIJGhJ4fEYkAkEUGxTBLhjSuyWP1RXuNyQ4AmwkZsqPTyNoVdJGYZZn6+BGkjmyCsCodJAaD3KMXdx2 ZsIFx7FN5KMHLeHWczGC3PKVDdvB9uWYllES8HAqWc PORyCMINBtXtQ04ltZLuPWt0V6WmRyIqOEPwAucxTNQfHJdqZuNdNSJqWjDiCPkbKC1+ID4+LKwbVJ6I JPxxjsSnCFGaTb9WWNZiNBTiYM0nFXGiOCVhP9K2cSwaNEJMUvNlF1lzfrfsJL7dXYNkO800sRwkohXw YVP6GNTySj3MQZMcVWQ4PCJkqFShZyDsZJISUJqsBC 6JgCUxXPZ5yW0zWTstWQYoFPHrR6dVLbKbpZpxBY90qCgijpEqcEIhCHe+Df7RGJ0mq0EpQRb0zvEgZS qfIWTgPArlGXEkUFNbUAZlLOL3OMV3BLIEGmLtGCDxWIAlSKswMKXkCTNnqq7IDJXaPBH8YAd3MxUbNN QnTLVxELalBFXpSEJzAmG5IGQoFRZbZE0TLbLqQEQu AHTqEBioATCuZOZqdo6WXPIrQGTjLUVnRdRiYBPuHXHeMKakHCZyIUK3OjSnAALtQVEbAJ1PAqHdLJBl JDldXtejJWNbFBHaoq5DSVXaGZIrOHJzGgEnDDVxVRFyYLaeFMAlJXQtEYJ7FPEcCBPjDF3BXyJbOIYe NNCdGYZmLYOtCUHjbk4JDQNoGPFvOUZ4QjYdRZCtFG HjLQlmHNIhQVC9OAlhGNIoHCJxZK7LSvWqBSDuASrqWjnpBBRbAZNqkc7DKOLnFOLbUaE2TXPcRCJpDV RtPUwsSITbJMMfPzv2PINrGRHtCF8JKoHwEZMwUxF3ZKHfLJZtYUFzvx5EECBiHERyOxe6TXUuSWKfTD OiKZsrSGXhNTUjWEvxVUUdOFPfFL1HQwAiDEJzUzOz YUJrIRTxLUAnll3WKFQoPSTnTYQ7CLPpUHYuJUIfAFraNYJyKLN9UTVqMUIdTHXhRC9ABqOwEHSjDmF5 DLQdFDEyNHZrhi7KFZFwQLAhRTS2XjVqINKhRCRaPCbaXATyIGT3XLzfFURqNWHlWP3WNiBvVJKsGzzv CVQdNRSoZTFmzq2AHQOsEVQgFwYmFLGeNIOyBQIhZJ lsEBShTNX1NYT6VRTfHSHmRZ1VRqGvAFIrRvsmVNMbKYCfOITinc2DUENeHWCqNQP9GMPfZZCsJUZbAE zxFLLlGIR0QCdkPOUaQJNsJX2JWcKlNWTxEygaHgxrEBMuJQXgzx5ICLIhPDFqETI6PJBhSEAvFCNzSF hwCIJoVBYpPLv7YYRtFUOgSU4VNfUuOQCdFCK8Pchr RSVhNLSdjd3VQSCjATG6HGn4PFByFOQaZWZkJVgxXBGlAKVvRrs9WKHaCOUnMS4UMqLtOWRjFJL7FyQz CVYxYDIijm9EIVRdMTW5PfscQpLaTELqWQPiNIizCPCyGHQmFNg6GTTbUOSpLI3GAgNmPEyaRABGIpo8 KYxzX9g6GXC3KL0HD8Stu8CpLfueLLFLWEemPH0qzy JuQGNtIt8FV9kFWidxAWWiLCJ0EwNaUPB3DpAeQxD2CIUlBAtcAlN2XhRfSa5wNKKgOXUvFGN9TPZfFG HfHNNsIrF4FQU4WSQrPIguDEOjNsBkLF1LJq6NEsT5KII7jLOgIz2PYKZlNhFKEdJoTP4BPDg= ID Date Data Source [id number] 02/27/2021 03:25:23 AM EDT [facility] XR ABDOMEN AP ABD SUPINE ONLY [id number] RESULTInterpreted by:NERIS PeraltaROCEDURE INFORMATION: Exam: XR Abdomen Exam date and time: 02/27/2021 1:58 AM Age: 30 years old Clinical indication: Other: Abdominal pain, constipation x 3 weeks TECHNIQUE: Imaging protocol: XR of the abdomen. Views: Frontal supine view of the abdomen. 1 View. COMPARISON: CT ABDOMEN PELVIS WITH AND WITHOUT CONTRAST [id number] 02/17/2018 3:22 PM FINDINGS: Gastrointestinal tract: Nonobstructive bowel gas pattern. Organs: Surgically absent gallbladder. Bones/joints: No acute osseous abnormality. IMPRESSION: No acute findings. THIS DOCUMENT HAS BEEN ELECTRONICALLY SIGNED BY ALVA KHAN MDThis document has been electronically signed by Alva Khan MD on 02/27/2021 3:25 AM Name Value Range Interpretation Code Description Data Renee rce(s) Supporting Document(s) ID Date Data Source [id number] 02/27/2021 02:41:[address] [facility] Name Value Range Interpretation Code Description Data Renee rce(s) Supporting Document(s) Cardiactroponin T pnl SerPlHS 26 ng/L <14 H [facility] ID Date Data Source [id number] 02/27/2021 01:14:[address] [facility] Name Value Range Interpretation Code Description Data Renee rce(s) Supporting Document(s) Cardiactroponin T pnl SerPlHS 24 ng/L <14 H [facility] Hemolyzed ID Date Data Source [id number] 02/27/2021 01:14:[address] [facility] Name Value Range Interpretation Code Description Data Renee rce(s) Supporting Document(s) Albumin [Mass/volume] in Serum or Plasma by Bromocresol green (BCG) dye binding method 4.2 g/dL 3.5[facility]5.2 [facility] Bilirubin.total [Mass/volume] in Serum or Plasma 0.5 mg/dL <1.2 [facility] Calcium [Mass/volume] in Serum or Plasma 9.2 mg/dL 8.6-10.0 [facility] Chloride [Moles/volume] in Serum or Plasma 105 mmol/L 98-107 [facility] Creatinine [Mass/volume] in Serum or Plasma 0.88 mg/dL 0.50-0.90 [facility] Glucose [Mass/volume] in Serum or Plasma 94 mg/dL 70-140 [facility] Alkaline phosphatase [Enzymatic activity/volume] in Serum or Plasma 84 U/L 35-104 [facility] Potassium [Moles/volume] in Serum or Plasma 4.2 mmol/L 3.4-5.1 [facility] Hemolyzed Protein [Mass/volume] in Serum or Plasma 7.6 g/dL 6.4-8.3 [facility] Sodium [Moles/volume] in Serum or Plasma 140 mmol/L 136-145 [facility] Aspartate aminotransferase [Enzymatic activity/volume] in Serum or Plasma 39 U/L <32 H [facility] Urea nitrogen [Mass/volume] in Serum or Plasma 10 mg/dL 6-20 [facility] Osmolality of Serum or Plasma by calculation 289 mosm/kg 275-300 [facility] Creatinine/Urea nitrogen [Mass Ratio] in Serum or Plasma 11 [facility] Bicarbonate [Moles/volume] in Serum 21 mmol/L 22-29 L [facility] Alanine aminotransferase [Enzymatic activity/volume] in Seru m or Plasma 28 U/L <33 [facility] Anion gap 3 in Serum or Plasma 14 mmol/L 8-15 [facility] Glomerular filtration rate/1.73 sq M pre dicted among non-blacks [Volume Rate/Area] in Serum or Plasma by Creatinine-based formula (MDRD) 88 mL/min/1.73m2 >60 [facility] Glomerular filtration rate/1.73 sq M pre dicted among blacks [Volume Rate/Area] in Serum or Plasma by Creatinine-based formula (MDRD) >60 [facility] ID Date Data Source [id number] 02/27/2021 02:17:08 AM EDT [facility] Name Value Range Interpretation Code Description Data Renee rce(s) Supporting Document(s) Leukocytes [#/volume] in Blood by Automated count 6.5 10*3/uL 4-10 [facility] Erythrocytes [#/volume] in Blood by Automated count 4.23 10*6/uL 4.1- 5.3 [facility] Hemoglobin [Mass/volume] in Blood 13.7 g/dL 11.5-15.5 [facility] Hematocrit [Volume Fraction] of Blood by Automated count 41.0 % 3 6-45 [facility] Erythrocyte mean corpuscular volume [Entitic volume] by Auto mated count 96.8 fL 80-96 H [facility] Erythrocyte mean corpuscular hemoglobin [Entitic mass] by Automated count 32.4 pg 27-33 [facility] Erythrocyte mean corpuscular hemoglobin concentration [Mass/volume] by Automated count 33.4 g/dL 32.0-36.0 [facility] E[facility]th[facility] distribution width [Ratio] by Automated count 13.7 % 11.5-14.5 [facility] Platelets [#/volume] in Blood by Automated count 284 10*3/uL 150-400 [facility] Confirmed Differential cell count method - Blood [facility] Neutrophils/100 leukocytes in Blood by Automated count 74 % [facility] Lymphocytes/100 leukocytes in Blood by Automated count 22 % [facility] Monocytes/100 leukocytes in Blood by Automated count 4 % [facility] Neutrophils [#/volume] in Blood by Automated count 5.07 10*3/uL 1.8-7 .0 [facility] Lymphocytes [#/volume] in Blood by Automated count 1.48 10*3/uL 1.2-4 .0 [facility] Monocytes [#/volume] in Blood by Automated count 0.26 10*3/uL 0-0.8 [facility] ID Date Data Source [id number] 02/26/2021 03:16:[address] [facility] Name Value Range Interpretation Code Description Data Renee rce(s) Supporting Document(s) Troponin I.cardiac [Mass/volume] in Serum or Plasma Less Than 0.015 0.00-0.[address] [facility] Less than 0.09 NG/ML Negative0.10 - 0.77 NG/ML High Risk0.78 NG/ML or Greater PositiveThe WHO defined the cutoff (definition for diagnosis of NC)for this method as 0.78 ng/ml. ID Date Data Source [id number] 02/26/2021 02:40:00 PM EDT [place] [facility]) Name Value Range Interpretation Code Description Data Renee rce(s) Supporting Document(s) Troponin I.cardiac [Mass/volume] in Serum or Plasma less than 0.015 0.00-0.09 Troponin [facility]) ID Date Data Source [id number] 02/26/2021 02:40:00 PM EDT [place] ([facility]) Name Value Range Interpretation Code Description Data Renee rce(s) Supporting Document(s) Troponin I.cardiac [Mass/volume] in Serum or Plasma less than 0.015 0.00-0.09 Troponin [place] ([facility]) ID Date Data Source [id number] 02/26/2021 10:38:[address] [facility] Name: COREY CORTEZ : 1990 Age: 30 MR#: [id number] Admit Date: 02/26/21 Provider: Stoney Cristina MD Room #: 290 Consulting Provider: Dictation Date: 02/26/21 Discharge Summary Discharge Summary Admit Info/Diagnoses/Course Date of service:: 02/26/21 Admission Information: Patient, COREY CORTEZ, a 30 year old F, admitted on 02/26/21 04:07 by Stoney Cristina MD for CHEST PAIN,ABDOMINAL PAIN Family MD Tyrone Garcia MD Discharge Date: 02/26/21 Most Recent Lab Results: 02/25/21 23:59 02/25/21 23:59 Laboratory Results Last 24 hours 02/25/21 23:59: WBC 5.9, RBC 4.54, Hgb 14.6, Hct 44.3, MCV 98 H, MCH 32 H, MCHC 33, RDW 13, Plt Count 179, MPV 10.7, Immature Gran % (Auto) 0.3, Neut % (Auto) 67.7, Lymph % (Auto) 24.8, [place] % (Auto) 6.0, Eos % (Auto) 0.7, Baso % (Auto) 0.5, Lymph # (Auto) 1.5, Abs Immat Gran (auto) 0.0, Add Manual Diff No, Absolute Neutrophils 4.0, Monocytes # 0.4, Absolute Eosinophils 0.0, Absolute Basophils 0.0 02/25/21 23:59: Sodium 145, Potassium 3.4 L, Chloride 111 H, Carbon Dioxide 27, Anion Gap 10, BUN 14, Creatinine 0.7, GFR Calculation Greater than 60, Glucose 86, Calcium 9.4, Total Bilirubin 0.4, AST 32, ALT 44, Alkaline Phosphatase 90, Creatine Kinase 360 H, CK-MB (CK-2) 9.0 H, CK-MB (CK-2) % 2.5, Troponin I Less than 0.015, Serum Total Protein 7.9, Albumin 4.2 02/25/21 23:59: Iap-L-Eoacvcbfrog Pept 226.00 H 02/25/21 23:59: Magnesium 2.2 02/26/21 02:20: Troponin I Less than 0.015 05/09 04:35: D-Dimer 0.30 02/26/21 04:35: TSH 4.85 02/26/21 09:58: Troponin I Less than 0.015 Microbiology 02/26/21 04:10 Nasopharyngeal SARS-CoV-2 Rapid RNA (RT-PCR) - Final Sars-Cov-2 Not Detected Influenza A Not Detected Influenza B Not Detected RSV Not Detected Hospital Course: Discharge diagnosis: 1. Chest pain 2. Cardiac conduction disease left bundle branch block who has been strongly advised by her neurologist to have pacemaker placement 3. Obstructive sleep apnea 4. Muscular dystrophy type I 5. Cardiomyopathy secondary to above 6. Intolerance to mexiletine 7. Obesity Hospital course: Patient nila 30-year-old white female presents having experienced abrupt chest pain waking her up at 2:00 this morning going down her back. She has been advised by her neurologist on many occasions to have pace maker placed. She follows with [facility] cardiology and neurology for the last 20 years. She self discontinued her Lasix and her mexiletine because she did not like the way it made her feel. We have placed a call to her fmd teacher Dr. Roldan at [facility] to coordinate transfer. She is clinically stable at this time. Patient will need outpatient CPAP titration. MRI cervical spine findings as follows:1. No disc herniation. 2. No central canal stenosis. No foraminal stenosis. 3. Some of the scans are degraded by patient motion artifacts. Small lesions could be missed. Consider repeat study with appropriate sedation if felt to be clinically necessary. Carotid ultrasound no hemodynamically significant stenosis. CT abdomen findings as follows: 1. Gastric wall is mildly prominent which can be artifactual due to lack of distention, however, correlate with symptomatology to exclude gastritis. MRI MRA brain unremarkable 2. Status post hysterectomy, cholecystectomy and suspected appendectomy. Correlate with surgical history Review of Systems General: Denies Fever HEENT: Denies Headaches Endocrine: Denies Excessive sweating Cardiovascular: Reports Chest Pain Pulmonary: Denies Dyspnea Gastrointestinal: Denies nausea Genitourinary: Denies Dysuria Musculoskeletal: Denies Muscle Pain Neurological: Denies Weakness Psych: Denies anxiety Hematological/Lymphatic: Denies easy bleeding Allergic/Immunologic: Denies rash or seasonal rhinitis Exam Condition Vital Signs - Most Recent: Last Vital Signs Temp 97.9 F 02/26/21 07:24 Pulse 61 02/26/21 07:24 Resp 16 02/26/21 07:24 BP 107/56 02/26/21 07:24 Pulse Ox 99 02/26/21 07:24 Ht Wt BMI Current Height 5 ft 9 in Current Weight 268 lb 12.8 oz Body Mass Index (BMI) 39.6 Body Mass Index (BMI) Obese Classification General: positive Alert and positive Oriented x3 HEENT: Atraumatic, PERRLA and EOMI Neck: Supple and No JVD Lungs: Clear to auscultation Cardiovascular: Regular rate, Normal S1 and Normal S2 Abdomen: Normal bowel sounds and Soft; negative for Tenderness Extremities: No clubbing, No cyanosis and No edema Skin: Skin warm and dry, Mucus membranes moist Psych/Mental Status: Mental status NL Discharge Plan Free Text/Narrative:: 1. Follow-up with fmd teacher and neurologist at tertiary care center for consideration of pacemaker cardiac catheterization and reinstitution of her muscular dystrophy medication which is a class I antiarrhythmic the patient self discontinued 2. Bedrest 3. Cardiac diet Care plan: Plan of care discussed with patient and or family Medications Home Medications furosemide [Lasix] 10 mg PO DAILY 02/25/21 [History] potassium chloride [Klor- Con 10] 10 meq PO DAILY 02/25/21 [History] Time Spent on Discharge: > 30 Minutes Quality Measures Tobacco Use Smoking Status: Never smoker BMI Screening: Current Height: 5 ft 9 in Current Weight: 268 lb 12.8 oz Body Mass Index (BMI): 39.6 Influenza Immunization Hx/Date of Influenza Vaccination (from nursing Hx): Yes Diabetes Care Measures Glucose/POC Glucose: Glucose last 48 hrs 02/25/21 23:59 Glucose 86 Discharge Plan Admission/Discharge Dx Primary (Admit) Diagnosis: Chest pain of uncertain etiology, history of cardiomyopathy Primary DC Diagnosis: Chest pain Condition Condition: Stable Discharge Detail Disposition: Transfer - [facility] Med Rec New Prescriptions: No Action potassium chloride [Klor-Con 10] 10 mEq Tablet Extended Release 10 meq PO DAILY RF: 0 furosemide [Lasix] 20 mg Tablet 10 mg PO DAILY RF: 0 Diet:: Cardiac Medications Medication reconciliation performed by provider at discharge: Yes Follow Up Care/Instructions Diet/Activity/Wound Care..: 1. Follow-up with fmd teacher and neurologist at [facility] for consideration of pacemaker cardiac catheterization and reinstitution of her muscular dystrophy medication which is a class I antiarrhythmic the patient self discontinued 2. Bedrest 3. Cardiac diet *Discharge Patient* Discharge Orders: Discharge Order (Routine); Ordered 02/26/21 Ordered By: Stoney Cristina Dictated by: <Electronically signed by Stoney Cristina MD> Stoney Cristina MD 02/26/21 1752 Stoney Cristina MD SIGNATURE DA Report Cosigners: D: STRAHaley 02/26/21 1038 T: TOM 02/26/21 1038 CC: Name Value Range Interpretation Code Description Data Renee rce(s) Supporting Document(s) ID Date Data Source [id number] 02/26/2021 10:36:[address] [facility] Name Value Range Interpretation Code Description Data Renee rce(s) Supporting Document(s) Troponin I.cardiac [Mass/volume] in Serum or Plasma Less Than 0.015 0.00-0.[address] [facility] Less than 0.09 NG/ML Negative0.10 - 0.77 NG/ML High Risk0.78 NG/ML or Greater PositiveThe WHO defined the cutoff (definition for diagnosis of NC)for this method as 0.78 ng/ml. ID Date Data Source [id number] 02/26/2021 09:58:00 AM EDT [facility]) Name Value Range Interpretation Code Description Data Renee rce(s) Supporting Document(s) Troponin I.cardiac [Mass/volume] in Serum or Plasma less than 0.015 0.00-0.09 Troponin [facility]) ID Date Data Source [id number] 02/26/2021 09:58:00 AM EDT [facility]) Name Value Range Interpretation Code Description Data Renee rce(s) Supporting Document(s) Troponin I.cardiac [Mass/volume] in Serum or Plasma less than 0.015 0.00-0.09 Troponin [facility]) ID Date Data Source [id number] 02/26/2021 09:42:00 AM EDT [facility] [address] [place] [id number] [phone] NAME SEX PT STATUS ACCOUNT NUMBER COREY CORTEZ ADM [facility] [id number] ORDERING PHYSICIAN LOCATION MEDICAL RECORD NO. Victoria PA Al-Sergioy EW [id number] ATTENDING PHYSICIAN DATE OF DATE OF EXAM/TIME Tyrone Garcia MD 1990 02/26/21808 TYPE / EXAM MRI Cervical without contrast REASON FOR EXAM to rule out disc problems Clinical History/Indication for Exam: to rule out disc problems MR CERVICAL SPINE WITHOUT INTRAVENOUS CONTRAST INDICATION: to rule out disc problems TECHNIQUE: Magnetic resonance images of the cervical spine without intravenous contrast in multiple planes. COMPARISON: No relevant prior studies available. FINDINGS: Artifacts: Some of the scans are degraded by patient motion artifacts. Vertebrae: The cervical vertebral column is well aligned and straightened. The bone marrow of thecervical spine demonstrates benign hemangioma involving the RIGHT side of the vertebral bodies of C6and C7. No acute fracture. Marrow: Unremarkable. Normal signal. Spinal cord: The signal of the cervical cord is normal. Soft tissues: Unremarkable. DISCS/SPINAL CANAL/NEURAL FORAMINA: C2-C3: Unremarkable. No significant disc disease. No stenosis. C3-C4: Unremarkable. No significant disc disease. No stenosis. C4-C5: Unremarkable. No significant disc disease. No stenosis. C5-C6: Unremarkable. No significant disc disease. No stenosis. C6-C7: Unremarkable. No significant disc disease. No stenosis. C7-T1: Unremarkable. No significant disc disease. No stenosis. IMPRESSION: 1. No disc herniation. 2. No central canal stenosis. No foraminal stenosis. 3. Some of the scans are degraded by patient motion artifacts. Small lesions could be missed. Consider repeat study with appropriate sedation if felt to be clinically necessary. REPORT SIGNATURE ON FILE 02/26/2021 (09:42 Eastern Time ) Signed by: Caryn Jacinto M.D. Reported By Caryn Jacinto MD on 02/26/21941 Signed By Caryn Jacinto MD on 02/26/21941 Date Time CC: Tyrone MATOS ([facility]; Caryn Jacinto MD Techn: MANJU Trans Dt/Tm: Trans by: DT Prt Dt/Tm: 1: Total DLP = 0.00 mGy-cm : Total Radiation Dose = 0.0000 mSv Lifetime Dose: 19.6248 mSv Name Value Range Interpretation Code Description Data Renee rce(s) Supporting Document(s) ID Date Data Source [id number] 02/26/2021 08:45:00 AM EDT [facility] [address] [place] [address] [phone] NAME SEX PT STATUS ACCOUNT NUMBER COREY CORTEZ ADM [facility] [id number] ORDERING PHYSICIAN LOCATION MEDICAL RECORD NO. Julien Cali-Dana EW [id number] ATTENDING PHYSICIAN DATE OF DATE OF EXAM/TIME Tyrone Garcia MD 1990 02/26/21831 TYPE / EXAM US Carotid art complete bilat REASON FOR EXAM to rule out stenosis CLINICAL HISTORY: [facility] to rule out stenosis Comparison: None FINDINGS: No evidence of significant plaque. Antegrade flow vertebral arteries. Peak flow velocities are as follows: RIGHT CCA: 83 cm/s. RIGHT ICA: 76 cm/s. RIGHT ECA: 75 cm/s. RIGHT ICA/CCA RATIO: 0.9 LEFT CCA: 73 cm/s. LEFT ICA: 83 cm/s. LEFT ECA: 62 cm/s. LEFT ICA/CCA RATIO: 1.1 IMPRESSION: No ultrasonographic evidence of a hemodynamically significant stenosis. NASCET method was utilized while determining significance of stenosis on ultrasound of the carotids. Reported By Watson Contreras MD on 02/26/21844 Signed By Watson Contreras MD on 02/26/21845 Date Time CC: Tyrone MATOS ([facility] Rom Contreras M.D. Techn: BUSMI Trans Dt/Tm: Trans by: DT Prt Dt/Tm: : Total DLP = 0.00 mGy-cm : Total Radiation Dose = 0.0000 mSv Lifetime Dose: 19.6248 mSv Name Value Range Interpretation Code Description Data Renee rce(s) Supporting Document(s) ID Date Data Source [id number] 02/26/2021 08:14:00 AM EDT [facility] [address] [place] [id number] [phone] NAME SEX PT STATUS ACCOUNT NUMBER COREY CORTEZ [facility] [id number] ORDERING PHYSICIAN LOCATION MEDICAL RECORD NO. Victoria ZACK Paulino [id number] ATTENDING PHYSICIAN DATE OF DATE OF EXAM/TIME Tyrone Garcia MD 1990 02/26/21 0754 TYPE / EXAM MRA Head without contrast REASON FOR EXAM to rule out cva COREY CORTEZ [id number] 1990 ADDENDUM Clinical History/Indication for Exam: to rule out cva Called for Critical Findings by Meena Thyaer to Dr. Cristina on 02/26/2021 5:21AM [place] Time;Call for Critical Findings MR ANGIOGRAPHY HEAD WITHOUT INTRAVENOUS CONTRAST INDICATION: to rule out cva TECHNIQUE: Magnetic resonance angiography images of the head without intravenous contrast. MIP reconstructed images were created and reviewed. COMPARISON: MRI brain dated 02/26/21. FINDINGS: Right internal carotid artery: No acute findings. Intracranial segment is patent with no significant stenosis. No aneurysm. Right anterior cerebral artery: Unremarkable. No occlusion or significant stenosis. No aneurysm. Right middle cerebral artery: Unremarkable. No occlusion or significant stenosis. No aneurysm. Right posterior cerebral artery: Unremarkable. No occlusion or significant stenosis. No aneurysm. Right vertebral artery: Unremarkable as visualized. Left internal carotid artery: No acute findings. Intracranial segment is patent with no significant stenosis. No aneurysm. Left anterior cerebral artery: Unremarkable. No occlusion or significant stenosis. No aneurysm. Left middle cerebral artery: Unremarkable. No occlusion or significant stenosis. No aneurysm. Left posterior cerebral artery: Unremarkable. No occlusion or significant stenosis. No aneurysm. Left vertebral artery: Unremarkable as visualized. 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 No occlusion or significant stenosis. No aneurysm. IMPRESSION: Normal head/brain MRA. REPORT SIGNATURE ON FILE 02/26/2021 (08:14 Eastern Time ) Signed by: Miquel Dunn M.D. Addendum Reported By Miquel Dunn MD on 02/26/21813 Signed By Miquel Dunn MD on 02/26/21813 Trans Dt/Tm: Trans by: MEDQ [p pg] Clinical History/Indication for Exam: to rule out cva Call for Critical Findings MR ANGIOGRAPHY HEAD WITHOUT INTRAVENOUS CONTRAST INDICATION: to rule out cva TECHNIQUE: Magnetic resonance angiography images of the head without intravenous contrast. MIP reconstructed images were created and reviewed. COMPARISON: MRI brain dated 02/26/21. FINDINGS: Right internal carotid artery: No acute findings. Intracranial segment is patent with no significant stenosis. No aneurysm. Right anterior cerebral artery: Unremarkable. No occlusion or significant stenosis. No aneurysm. Right middle cerebral artery: Unremarkable. No occlusion or significant stenosis. No aneurysm. Right posterior cerebral artery: Unremarkable. No occlusion or significant stenosis. No aneurysm. Right vertebral artery: Unremarkable as visualized. Left internal carotid artery: No acute findings. Intracranial segment is patent with no significant stenosis. No aneurysm. Left anterior cerebral artery: Unremarkable. No occlusion or significant stenosis. No aneurysm. Left middle cerebral artery: Unremarkable. No occlusion or significant stenosis. No aneurysm. Left posterior cerebral artery: Unremarkable. No occlusion or significant stenosis. No aneurysm. Left vertebral artery: Unremarkable as visualized. 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 No occlusion or significant stenosis. No aneurysm. IMPRESSION: Normal head/brain MRA. REPORT SIGNATURE ON FILE 02/26/2021 (08:14 Eastern Time ) Signed by: Miquel Dunn M.D. Reported By Miquel Dunn MD on 02/26/21813 Signed By Miquel Dunn MD on 02/26/21813 Date Time CC: Tyrone MATOS ([facility]; Miquel Dunn MD Techn: MANJU Trans Dt/Tm: Trans by: DT Prt Dt/Tm: : Total DLP = 0.00 mGy-cm : Total Radiation Dose = 0.0000 mSv Lifetime Dose: 19.6248 mSv Name Value Range Interpretation Code Description Data Renee rce(s) Supporting Document(s) ID Date Data Source [id number] 02/26/2021 08:11:00 AM EDT [facility] [address] [place], [place] [address] [phone] NAME SEX PT STATUS ACCOUNT NUMBER COREY CORTEZ F [facility] [id number] ORDERING PHYSICIAN LOCATION MEDICAL RECORD NO. Julien Paulino [id number] ATTENDING PHYSICIAN DATE OF DATE OF EXAM/TIME Tyrone Garcia MD 1990 02/26/21 0755 TYPE / EXAM MRI Brain without contrast REASON FOR EXAM to rule out stroke COREY CORTEZ [id number] 1990 ADDENDUM Clinical History/Indication for Exam: to rule out stroke Called for Critical Findings by Meena Cristina on 02/26/2021 5:21AM [place] Time;Call for Critical Findings MR HEAD WITHOUT INTRAVENOUS CONTRAST INDICATION: to rule out stroke TECHNIQUE: Magnetic resonance images of the head/brain without intravenous contrast in multiple planes. COMPARISON: CT head dated 02/26/21. FINDINGS: Brain: Unremarkable. No mass. No hemorrhage. No acute infarct. Ventricles: Unremarkable. No ventriculomegaly. Bones/joints: Unremarkable. Sinuses: Unremarkable as visualized. No acute sinusitis. Mastoid air cells: Unremarkable as visualized. No mastoid effusion. Orbits: Unremarkable as visualized. IMPRESSION: Normal head/brain MRI. REPORT SIGNATURE ON FILE 02/26/2021 (08:11 Eastern Time ) Signed by: Miquel Dunn M.D. Addendum Reported By Miquel Dunn MD on 02/26/21810 Signed By Miquel Dunn MD on 02/26/21810 Trans Dt/Tm: Trans by: MEDQ [p pg] Clinical History/Indication for Exam: to rule out stroke Call for Critical Findings MR HEAD WITHOUT INTRAVENOUS CONTRAST INDICATION: to rule out stroke TECHNIQUE: Magnetic resonance images of the head/brain without intravenous contrast in multiple planes. COMPARISON: CT head dated 02/26/21. FINDINGS: Brain: Unremarkable. No mass. No hemorrhage. No acute i nfarct. Ventricles: Unremarkable. No ventriculomegaly. Bones/joints: Unremarkable. Sinuses: Unremarkable as visualized. No acute sinusitis. Mastoid air cells: Unremarkable as visualized. No mastoid effusion. Orbits: Unremarkable as visualized. IMPRESSION: Normal head/brain MRI. REPORT SIGNATURE ON FILE 02/26/2021 (08:11 Eastern Time ) Signed by: Miquel Dunn M.D. Reported By Miquel Dunn MD on 02/26/21810 Signed By Miquel Dunn MD on 02/26/21810 Date Time CC: Tyrone MATOS ([facility]; Miquel Dunn MD Techn: FROJO Trans Dt/Tm: Trans by: DT Prt Dt/Tm: : Total DLP = 0.00 mGy-cm : Total Radiation Dose = 0.0000 mSv Lifetime Dose: 19.6248 mSv Name Value Range Interpretation Code Description Data Renee rce(s) Supporting Document(s) ID Date Data Source [id number] 02/26/2021 07:20:00 AM EDT [facility] [address] [place], [place] [id number] [phone] NAME SEX PT STATUS ACCOUNT NUMBER Corey Cortez ADM [facility] [id number] ORDERING PHYSICIAN LOCATION MEDICAL RECORD NO. Victoria PA Al-[facility] [id number] ATTENDING PHYSICIAN DATE OF DATE OF EXAM/TIME Tyrone Garcia MD 1990 02/26/21507 TYPE / EXAM CT Abd/pel w/ contrast REASON FOR EXAM abdominal pain, diarrhea, nausea Clinical History/Indication for Exam: nausea CT ABDOMEN AND PELVIS WITH INTRAVENOUS CONTRAST INDICATION: nausea TECHNIQUE: Axial computed tomography images of the abdomen and pelvis with intravenous contrast. Sagittal and coronal reformatted images were created and reviewed. This CT exam was performed usingone or more of the following dose reduction techniques: automated exposure control, adjustment of the mA and/or kV according to patient size, and/or use of iterative reconstruction technique. COMPARISON: No relevant prior studies available. FINDINGS: Lung bases: There are posterior dependent lung changes. ABDOMEN: Liver: The liver measures 18 cm in length and is hypodense. Gallbladder and bile ducts: Status post cholecystectomy. No ductal dilation. Pancreas: Unremarkable. No mass. No ductal dilation. Spleen: Unremarkable. No splenomegaly. Adrenals: Unremarkable. No mass. Kidneys and ureters: Unremarkable. No solid mass. No hydronephrosis. Stomach and bowel: The gastric wall is mildly thickened but not well distended. No obstruction. No mucosal thickening. PELVIS: Appendix: The right lower quadrant sutures likely appendectomy. Bladder: Unremarkable. No mass. Reproductive: Unremarkable as visualized. ABDOMEN and PELVIS: Intraperitoneal space: Small free fluid in the pelvis. Uterus is not present. No free air. Bones/joints: No acute fracture. No dislocation. Soft tissues: Unremarkable. Vasculature: Unremarkable. No abdominal aortic aneurysm. Lymph nodes: Unremarkable. No enlarged lymph nodes. IMPRESSION: 1. Gastric wall is mildly prominent which can be artifactual due to lack of distention,however, correlate with symptomatology to exclude gastritis. 2. Status post hysterectomy, cholecystectomy and suspected appendectomy. Correlate with surgical history Automatic exposure control was used as a dose lowering technique. Contrast Type: Omnipaque 300. Contrast Volume: 100cc REPORT SIGNATURE ON FILE 02/26/2021 (07:20 Eastern Time ) Signed by: Sergio Oconnell M.D. Reported By Sergio Oconnell MD on 02/26/21719 Signed By Sergio Oconnell MD on 02/26/21719 Date Time CC: Tyrone MATOS ([facility]; Sergio Oconnell MD Techn: YAULU Trans Dt/Tm: Trans by: DT Prt Dt/Tm: 9: Total DLP = 1100.00 mGy-cm : Total Radiation Dose = 16.5000 mSv Lifetime Dose: 19.6248 mSv Name Value Range Interpretation Code Description Data Renee rce(s) Supporting Document(s) ID Date Data Source [id number] 02/26/2021 06:52:00 AM EDT [facility] [address] [place] [address] [phone] NAME SEX PT STATUS ACCOUNT NUMBER Corey Cortez ADM [facility] [id number] ORDERING PHYSICIAN LOCATION MEDICAL RECORD NO. Julien Paulino EW [id number] ATTENDING PHYSICIAN DATE OF DATE OF EXAM/TIME Tyrone Garcia MD 1990 02/26/21507 TYPE / EXAM CT Head without contrast REASON FOR EXAM blurring of vision, weakness of right upper limb Clinical History/Indication for Exam: blurring of vision, weakness of right upper limb CT HEAD WITHOUT INTRAVENOUS CONTRAST INDICATION: blurring of vision, weakness of right upper limb TECHNIQUE: Axial computed tomography images of the head/brain without intravenous contrast. Sagittal and coronal reformatted images were created and reviewed. This CT exam was performed usingone or more of the following dose reduction techniques: automated exposure control, adjustment of the mA and/or kV according to patient size, and/or use of iterative reconstruction technique. COMPARISON: No relevant prior studies available. FINDINGS: Brain: Unremarkable. No hemorrhage. No significant white matter disease. No edema. Brainstem: Unremarkable. Bones/joints: Unremarkable. No acute fracture. Sinuses: Unremarkable as visualized. No acute sinusitis. Mastoid air cells: Unremarkable as visualized. No mastoid effusion. Orbits: Unremarkable as visualized. Sella: Unremarkable. IMPRESSION: Unremarkable CT of the head. No acute pathology. Automatic exposure control was used as a dose lowering technique. REPORT SIGNATURE ON FILE 02/26/2021 (06:52 Eastern Time ) Signed by: Caryn Jacinto M.D. Reported By Caryn Jacinto MD on 02/26/21651 Signed By Caryn Jacinto MD on 02/26/21651 Date Time [facility]: [facility]; Caryn Jacinto MD Techn: KRISTIN Gill Dt/Tm: Trans by: WILLIE Prt Dt/Tm: : Total DLP = 1008.00 mGy-cm : Total Radiation Dose = 3.1248 mSv Lifetime Dose: 19.6248 mSv Name Value Range Interpretation Code Description Data Renee rce(s) Supporting Document(s) ID Date Data Source [id number] 02/26/2021 05:06:[address] [facility] Is test to R/O PE, DVT or VTE? Y @ DEON DATE was changed from 02/26/21 to 02/25/21@ by ESTEVAN. Old specimen was [id number]. Name Value Range Interpretation Code Description Data Renee rce(s) Supporting Document(s) Fibrin D-dimer [Units/volume] in Platelet poor plasma 0.30 mg/L 0.0- 0.50 [facility] @ Has QC been run for this test today?MARCIANO OG NOTE: THIS TEST WAS PERFORMED USING A PARTICLE-ENHANCED, IMMUNOTURBIDIMETRIC ASSAY AND HAS A SINGLE,CLINICALLY DERIVED CUTOFF OF 0.50 MG/L. ID Date Data Source [id number] 02/26/2021 04:43:[address] [facility] Is test to R/O PE, DVT or VTE? Y @ DEON DATE was changed from 02/26/21 to 02/25/21@ by ESTEVAN. Old specimen was [id number]. Name Value Range Interpretation Code Description Data Renee rce(s) Supporting Document(s) Magnesium [Mass/volume] in Serum or Plasma 2.2 mg/dL 1.3-2.7 [facility] ID Date Data Source [id number] 02/26/2021 06:40:[address] [facility] Name Value Range Interpretation Code Description Data Renee rce(s) Supporting Document(s) Thyrotropin [Units/volume] in Serum or Plasma by Detec tion limit <= 0.005 mIU/L 4.85 u[iU]/mL 0.35-5.50 [facility] ID Date Data Source [id number] 02/26/2021 04:35:00 AM EDT [facility]) Name Value Range Interpretation Code Description Data Renee rce(s) Supporting Document(s) Fibrin D-dimer [Units/volume] in Platelet poor plasma 0.30 mg/L 0.0-0.50 D-dimer [facility]) ID Date Data Source [id number] 02/26/2021 04:35:00 AM EDT [facility]) Name Value Range Interpretation Code Description Data Renee rce(s) Supporting Document(s) Thyrotropin [Units/volume] in Serum or Plasma by Detec tion limit <= 0.005 mIU/L 4.85 u[IU]/mL 0.35-5.50 TSH W/ Reflex to Free T4 [facility]) ID Date Data Source [id number] 02/26/2021 04:35:00 AM EDT [facility]) Name Value Range Interpretation Code Description Data Renee rce(s) Supporting Document(s) Fibrin D-dimer [Units/volume] in Platelet poor plasma 0.30 mg/L 0.0-0.50 D-dimer [facility]) ID Date Data Source [id number] 02/26/2021 04:35:00 AM EDT [facility]) Name Value Range Interpretation Code Description Data Renee rce(s) Supporting Document(s) Thyrotropin [Units/volume] in Serum or Plasma by Detec tion limit <= 0.005 mIU/L 4.85 u[IU]/mL 0.35-5.50 TSH W/ Reflex to Free T4 [facility]) ID Date Data Source [id number] 02/26/2021 04:24:[address] [facility] Name: COREY CORTEZ : 1990 Age: 30 MR#: [id number] Admit Date: 02/26/21 Provider: Julien Paulino Room #: 290 Consulting Provider: Dictation Date: 02/26/21 History Physical HPI Date of service Date of service:: 02/26/21 History of Present Illness Nurse screening for coronavirus: Recent Travel outside the country (where) Has patient experienced No coronavirus symptoms Chief Complaint: Chest pain Emergency Room stated complaint: Cardiovascular Primary (Admitting) Diagnosis: Chest pain, abdominal pain, diarrhea Source of information: Patient and Emergency Med Personnel HPI Free Text/Narrative:: Is an 30-year-old white female with history of myelo dystrophy, dilated cardiomyopathy, heart block, obstructive sleep apnea, appendectomy, cholecystectomy, hysterectomy, reports having chest pain that is constant since 2 AM last night. She reports that her pain is about 8/10 sharp in the middle of her chest radiating to the back and started while she was laying down. She went to her urologist during the day and later on contacted her fmd teacher about the chest pain who advised her to go to the ER. She reports that her chest pain did not improve after taking the nitroglycerin or the GI cocktail in the ER. The patient reports having a nausea, generalized abdominal pain that is intermittent and diarrhea. She reports having diarrhea since shehad a partial colectomy when she had her appendix removed 2 years ago. 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 Denies fever, chills, neck pain, and urinary symptoms at this time. Vitals seems at baseline. Labs are remarkable for hypokalemia 3.4, creatinine kinase 360, CK-MB 9, 30 strobe less than 0.015 and second Trop less than 0.015. proBNP 226 EKG: No acute findings sinus rhythm with left bundle branch block similar to prior. Chest x-ray: IMPRESSION: No plain film evidence for acute cardiopulmonary disease. The patient was treated in the ER with nitroglycerin and GI cocktail. Past history: Medical: 1st degree AV block (Medical) I44.0 Cardiomegaly (Medical) I51.7 delivery delivered (Medical) O82 Dilated cardiomyopathy (Medical) I42.0 Gastrointestinal disease (Medical) K92.9 H/O: hysterectomy (Medical) Z90.710 History of appendectomy (Medical) Z90.49 History of right hemicolectomy (Medical) Z90.49 Hx of cholecystectomy (Medical) Z90.49 Left bundle branch block (Medical) I44.7 JOSE (obstructive sleep apnea) (Medical) G47.33 Surgical History (Updated 02/25/21 @ 22:56 by Yaya Pascal RN) H/O: hysterectomy (Surgical) Z90.710 History of appendectomy (Surgical) Z90.49 History of right hemicolectomy (Surgical) Z90.49 Hx of cholecystectomy (Surgical) Z90.49 Dilated cardiomyopathy, left bundle branch block, first-degree AV block, myotonic dystrophy, Social history: Denies a smoking, drinking alcohol, using illicit drugs. Family hist ory: Father: Alive 56-year-old, diabetes mellitus, myelo dystrophy. Mother: Alive, 52-year-old, renal tumor. CODE STATUS: Full code Allergies/Home Meds Allergies Allergy/AdvReac Type Severity Reaction Status Date / Time aspirin Allergy Verified 02/25/21 23:00 metoclopramide [From Reglan] Allergy Verified 02/25/21 23:00 tramadol Allergy Verified 02/25/21 23:00 Home Medications Medication Instructions Recorded Confirmed Last Taken Type furosemide [Lasix] 10 mg PO DAILY 02/25/21 02/26/21 02/24/21 11:00 History potassium chloride [Klor-Con 10] 10 meq PO DAILY 02/25/21 02/26/21 02/24/21 11:00 History PFSH Medical History 1st degree AV block Cardiomegaly delivery delivered Dilated cardiomyopathy Gastrointestinal disease Left bundle branch block JOSE (obstructive sleep apnea) Surgical History H/O: hysterectomy History of appendectomy History of right hemicolectomy Hx of cholecystectomy Social History Does the Patient have a Healthcare Proxy: No Does Patient have a DNR?: No Does Patient have a Living Will?: No Advance Directives on File or in chart?: No Hx Recent Travel (where): No Smoking Status: Never smoker Sickle cell Sickle Cell Screening:: Not indicated ROS Const Details: All 10 points of ROS are reviewed, they are all negative except those reported in the HPI. Vital Signs and I O Vitals and I O: Vital Signs last 12 hours Temp Pulse Resp BP Pulse Ox 02/26/21 02:10 98.0 F 69 16 103/65 96 02/25/21 23:02 70 116/57 02/25/21 22:10 97.8 F 84 18 105/64 97 Intake Output Last 24 Hours 02/24/21 02/25/21 02/26/21 23:59 2 3:59 23:59 Current Weight 269 lb Height,Weight BMI: Ht Wt BMI Current Height 5 ft 9 in Current Weight 269 lb Results Results: 02/25/21 23: 59 02/25/21 23:59 Laboratory Results Last 24 hours 02/25/21 23:59: WBC 5.9, RBC 4.54, Hgb 14.6, Hct 44.3, MCV 98 H, MCH 32 H, MCHC 33, RDW 13, Plt Count 179, MPV 10.7, Immature Gran % (Auto) 0.3, Neut % (Auto) 67.7, Lymph % (Auto) 24.8, [place] % (Auto) 6.0, Eos % (Auto) 0.7, Baso % (Auto) 0.5, Lymph # (Auto) 1.5, Abs Immat Gran (auto) 0.0, Add Manual Diff No, Absolute Neutrophils 4.0, Monocytes # 0.4, Absolute Eosinophils 0.0, Absolute Basophils 0.0 02/25/21 23:59: Sodium 145, Potassium 3.4 L, Chloride 111 H, Carbon Dioxide 27, Anion Gap 10, BUN 14, Creatinine 0.7, GFR Calculation Greater than 60, Glucose 86, Calcium 9.4, Total Bilirubin 0.4, AST 32, ALT 44, Alkaline Phosphatase 90, Creatine Kinase 360 H, CK-MB (CK-2) 9.0 H, CK-MB (CK-2) % 2.5, Troponin I Less than 0.015, Serum Total Protein 7.9, Albumin 4.2 02/25/21 23:59: Pqq-O-Nblqpgicvtr Pept 226.00 H 02/26/21 02:20: Troponin I Less than 0.015 Exam Const Other: General: Well- nourished, well developed patient Head: Atraumatic, normocephalic, normal inspection Eye: Normal appearance, PERRL, EOMI. ENT: Normal inspection, mucous membranes moist. Neck: Normal inspection, full ROM, supple. Respiratory: Normal respiratory effort. Normal lung sounds bilaterally, absent rhonchi or wheezes. Cardiovascular: regular rate and regular rhythm. GI/Abdominal: Inspection: normal to inspection, obese. Auscultation: normal bowel sounds in all quadrants. Palpation: soft, generalized tenderness, no rebound tenderness, no rigidity or guarding. no hepatosplenomegaly, no masses. Extremities exam: normal inspection, full ROM without tenderness, capillary refill brisk, no pedal edema. Neurological: Alert, oriented X3, no neurological deficits. equal sensation both sides of the body, able to hold all his four extremities against gravity without drifting, finger to nose and heel to chin normal, able to follow my finger with his eyes, no loss in the field of vision. smile without drooping and move his tongue in all directions, speech normal. normal gate Back exam: full ROM, Absent R and L CVA tenderness Psychiatric Exam: Normal affect and normal mood. Skin: warm, dry and intact Assessment/Plan A P Free Text/Narrative :: 30 year old female with myelo dystrophy, cardiomyopathy, morbid obesity, presents to the ER to report continuous of chest pain since yesterday. The patient was sent to the ER by her cardiologistafter she contacted him on the phone and he recommends her to go to the ER. The patient also reports nausea generalized abdominal pain and diarrhea. EKG did not show any acute findings she has left bundle branch block at baseline. Similar to previous EKGs. She was found to be hypokalemic with potassium 3.4 magnesium2.2. Chest pain: court recording monitor Repeat troponin x3 The patient will need a stress test as outpatient Obtain echocardiogram in the morning she reports her last echo was 2 years ago. Weakness of the right upper limb, blurring of vision. The patient reported weakness in her right upper limb and the blurring of vision about 5:20 AM. While she is still in the ER. I reevaluated the patient. No loss of the field of vision, eye movements normal, able to hold both upper limbs and lower limbs against gravity, pflzxp-xb-imct and actj-mq-rncu normal. Normal gait. She reports lower sensation of the touch on the right upper limb compared to the left I ordered CT scan of the head. I will obtain MRI of the head , MRA and carotid doppler.. Myelodystrophy Monitor Follow-up with the neurologist History of nephrolithiasis She follow up with urologist Obesity supportive measures Obstructive sleep apnea CPAP Dilated cardiomyopathy Follow-up with cardiology DVT prophylaxis: Anticoagulation is not indicated at this time. Stress respiratory ulcer prophylaxis: Not indicated at this time Time spent 55 minutes critical time [address] Cristina. Care plan: Plan of care discussed with patient and or family, Patient encouraged to ask questions about plan and Patient agrees with plan of care Dictated by: <Electronically signed by Julien DIXON> Julien DIXON 02/26/21 0810 Julien Paulino SIGNATURE DA Report Cosigners: <<Signature on File>> Stoney Cristina MD 02/27/211509 <Electronically signed by Stoney Cristina MD> Stoney Cristina MD 02/27/211509 D: ALBIB 02/26/21423 T: ALBIB 02/26/21423 CC: Name Value Range Interpretation Code Description Data Renee rce(s) Supporting Document(s) ID Date Data Source [id number] 02/26/2021 05:07:[address] [facility] NORMAL RESULT IS "Not Detected"Cepheid S ARS-CoV-2,FLU/RSV is Multiplex real time RT-PCRNegative results do not preclude SARS-COV-2, influenza orRSV infection and should not be used as the sole basis fortreatment or other patient management decisions.False negative results may occur if virus is present atlevels below the analytical limit of detection.This test has been authorized by FDA under an EUA for use byauthorized laboratoriesSARS-rel CoV RNA Resp Ql HUNG+probeFLUAV RNA Resp Ql HUNG+probeFLUBV RNA Resp Ql HUNG+probeRSV RNA Resp Ql HUNG+probe Name Value Range Interpretation Code Description Data Renee rce(s) Supporting Document(s) ID Date Data Source [id number] 02/26/2021 04:10:00 AM EDT [place] [facility]) Name Value Range Interpretation Code Description Data Renee rce(s) Supporting Document(s) ID Date Data Source [id number] 02/26/2021 04:10:00 AM EDT [facility] Name Value Range Interpretation Code Description Data Renee rce(s) Supporting Document(s) Cepheid SARS/FLU/RSV RT-PCR SARS-COV-2 NOT DETECTED [facility] This lab was ordered by [facility] and reported by [facility]. ID Date Data Source [id number] 02/26/2021 04:10:00 AM EDT [place] ([facility]) Name Value Range Interpretation Code Description Data Renee rce(s) Supporting Document(s) ID Date Data Source [id number] 02/26/2021 03:17:[address] [facility] Name Value Range Interpretation Code Description Data Renee rce(s) Supporting Document(s) Troponin I.cardiac [Mass/volume] in Serum or Plasma Less Than 0.015 0.00-0.09 [facility] Less than 0.09 NG/ML Negative0.10 - 0.77 NG/ML High Risk0.78 NG/ML or Greater PositiveThe WHO defined the cutoff (definition for diagnosis of NC)for this method as 0.78 ng/ml. ID Date Data Source [id number] 02/26/2021 02:20:00 AM EDT [facility]) Name Value Range Interpretation Code Description Data Renee rce(s) Supporting Document(s) Troponin I.cardiac [Mass/volume] in Serum or Plasma less than 0.015 0.00-0.09 Troponin [facility]) ID Date Data Source [id number] 02/26/2021 02:20:00 AM EDT [facility]) Name Value Range Interpretation Code Description Data Renee rce(s) Supporting Document(s) Troponin I.cardiac [Mass/volume] in Serum or Plasma less than 0.015 0.00-0.09 Troponin [facility]) ID Date Data Source [id number] 02/26/2021 02:01:[address] [facility] Name Value Range Interpretation Code Description Data Renee rce(s) Supporting Document(s) Natriuretic peptide.B prohormone N-Terminal [Mass/volu me] in Serum or Plasma 226.00 pg/mL 0.00-175 Above high normal [facility] spital ID Date Data Source [id number] 02/26/2021 12:21:[address] [facility] Name Value Range Interpretation Code Description Data Renee rce(s) Supporting Document(s) Leukocytes [#/volume] in Blood by Automated count 5.9 10*3/uL 4.45-10 .71 [facility] Erythrocytes [#/volume] in Blood by Automated count 4.54 10*6/uL 4.20 -5.[address] [facility] Hemoglobin [Moles/volume] in Blood 14.6 g/dL 10.7-15.[address] [facility] Hematocrit [Volume Fraction] of Blood by Automated count 44.3 % 3 7-[address] [facility] Erythrocyte mean corpuscular volume [Ent itic volume] in Cord blood by Automated count 98 fL 80-96 Above high normal [facility] Erythrocyte mean corpuscular hemoglobin [Entitic mass] by Au tomated count 32 pg 27-[address] [facility] Erythrocyte mean corpuscular hemoglobin concentration [Mass/volume] in Cord blood 33 g/dL 33-37 N [facility] ital Erythrocyte distribution width [Entitic volume] by Automated count 13 % 11-[address] [facility] Platelets [#/volume] in Blood by Automated count 179 10*3/uL 130-[address] [facility] Platelet mean volume [Entitic volume] in Blood 10.7 fL 9.1-13.[address] [facility] Neutrophils/100 leukocytes in Blood by Automated count 67.7 % 41- [address] [facility] Neutrophils [#/volume] in Blood by Automated count 4.0 U 1.7-7.[address] [facility] Lymphocytes/100 leukocytes in Blood by Automated count 24.8 % 14- [address] [facility] Lymphocytes [#/volume] in Blood by Automated count 1.5 U 0.6-4.[address] [facility] Monocytes/100 leukocytes in Blood by Automated count 6.0 % 4-[address] [facility] Monocytes [#/volume] in Blood by Automated count 0.4 U 0.2-1.[address] [facility] Eosinophils/100 leukocytes in Blood by Automated count 0.7 % 0-[address] [facility] Eosinophils [#/volume] in Blood by Automated count 0.0 U 0.0-0.[address] [facility] Basophils/100 leukocytes in Blood by Automated count 0.5 % 0.4-[address] [facility] Basophils [#/volume] in Blood by Automated count 0.0 U 0.0-0.[address] [facility] NUCLEATED RED BLOOD CELL 0 % [facility] NUCLEATED RED BLOOD CELL# 0 U [facility] Immature granulocytes [Presence] in Blood by Automated count 0-[address] [facility] Immature granulocytes [#/volume] in Blood by Automated count 0.0 U 0-0.[address] [facility] Manual Differential panel - Blood NO [facility] ID Date Data Source [id number] 02/26/2021 12:59:[address] [facility] Name Value Range Interpretation Code Description Data Renee rce(s) Supporting Document(s) Urea nitrogen [Mass/volume] in Serum or Plasma 14 mg/dL 9-[address] [facility] Sodium [Moles/volume] in Serum or Plasma 145 mmol/L 132-[address] [facility] Potassium [Moles/volume] in Serum or Plasma 3.4 mmol/L 3.5-5.[address] [facility] Chloride [Moles/volume] in Serum or Plasma 111 mmol/L 99-[address] [facility] Carbon dioxide, total [Moles/volume] in Serum or Plasma 27 mmol/L 20 -[address] [facility] Anion gap in Serum or Plasma 10 mmol/L 8-16 N [facility] Glucose [Mass/volume] in Serum or Plasma 86 mg/dL 74-[address] [facility] Creatinine 0.7 mg/dL 0.5-1.1 N [facility] Glomerular filtration rate/1.73 sq M.pre dicted [Volume Rate/Area] in Serum or Plasma Greater Than [address] [facility] Alanine aminotransferase [Enzymatic acti vity/volume] in Serum or Plasma by With P-5'-P 44 U/L 10-49 N [facility] ital Aspartate aminotransferase [Enzymatic ac tivity/volume] in Serum or Plasma by With P-5'-P 32 U/L 0-33 N [facility] pital Alkaline phosphatase [Enzymatic activity/volume] in Serum or Plasma 90 U/L 45-[address] [facility] Calcium [Mass/volume] in Serum or Plasma 9.4 mg/dL 8.5-10.1 [facility] Bilirubin.total [Mass/volume] in Serum or Plasma 0.4 mg/dL 0.3-1.2 [facility] Albumin [Mass/volume] in Serum or Plasma by Bromocresol purple (BCP) dye binding method 4.2 g/dL 3.2-4.8 [facility] ital Protein [Mass/volume] in Serum or Plasma 7.9 g/dL 5.7-8.[address] [facility] ID Date Data Source [id number] 02/26/2021 12:59:[address] [facility] Name Value Range Interpretation Code Description Data Renee rce(s) Supporting Document(s) Creatine kinase [Enzymatic activity/volume] in Serum or Plasma 3 60 U/L 33-[address] [facility] Creatine kinase.MB [Enzymatic activity/volume] in Serum or P lasma 9.0 ng/mL 0.0-5.[address] [facility] Chemistry studies (set) 2.5 % [facility] ID Date Data Source [id number] 02/26/2021 12:59:[address] [facility] Name Value Range Interpretation Code Description Data Renee rce(s) Supporting Document(s) Troponin I.cardiac [Mass/volume] in Serum or Plasma Less Than 0.015 0.00-0.09 [facility] Less than 0.09 NG/ML Negative0.10 - 0.77 NG/ML High Risk0.78 NG/ML or Greater PositiveThe WHO defined the cutoff (definition for diagnosis of NC)for this method as 0.78 ng/ml. ID Date Data Source [id number] 02/25/2021 11:59:00 PM EDT [facility]) Name Value Range Interpretation Code Description Data Renee rce(s) Supporting Document(s) Magnesium [Mass/volume] in Serum or Plasma 2.2 mg/dL 1.3-2.7 Magnesium [facility]) ID Date Data Source [id number] 02/25/2021 11:59:00 PM EDT [facility]) Name Value Range Interpretation Code Description Data Renee rce(s) Supporting Document(s) Magnesium [Mass/volume] in Serum or Plasma 2.2 mg/dL 1.3-2.7 Magnesium [facility]) ID Date Data Source [id number] 02/25/2021 11:07:00 PM EDT [facility] [address] [place] [address] [phone] NAME SEX PT STATUS ACCOUNT NUMBER Corey Cortez REG ER [id number] ORDERING PHYSICIAN LOCATION MEDICAL RECORD NO. Yfn Beltran MD ER [id number] ATTENDING PHYSICIAN DATE OF DATE OF EXAM/TIME Doctor Provided,No Family 1990 02/25/212230 TYPE / EXAM Xray Chest One View REASON FOR EXAM cough/sob CXR - 1 VIEW HISTORY: Shortness of breath COMPARISON: None. TECHNIQUE: Single frontal view of the chest is submitted for review. FINDINGS: The lungs are adequately expanded without evidence of acute infiltrate or effusion. The cardiac silhouette measures upper limits of normal allowing for semiupright portable technique. Pulmonary vascularity is unremarkable. Osseous structures are within normal limits for age. IMPRESSION: No plain film evidence for acute cardiopulmonary disease. Reported By Linda Al MD on 02/25/212306 Signed By Linda Al MD on 02/25/212307 Date Time CC: Linda Al MD; No Family PHYS Provided Techn: YAULU Trans Dt/Tm: Trans by: DT Prt Dt/Tm: 0809- 0046: Total DLP = 0.00 mGy-cm Fluoroscopy Time (in secs): Name Value Range Interpretation Code Description Data Renee rce(s) Supporting Document(s) ID Date Data Source [id number] 02/25/2021 10:28:[address] 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 She actually was seen by her urologist in [place] and upon being evaluated there they felt that she needed to be seen emergently. Despite the fact that her fmd teacher is from [facility] she chose to come to [facility] emergency department for evaluation after she was rerouted from [facility] who was on diversion. This patient has never been to our facility there are no old records to review. Allergies/Home Meds Allergies Allergy/AdvReac Type Severity Reaction Status Date / Time aspirin Allergy Verified 02/25/21 23:00 metoclopramide [From Reglan] Allergy Verified 02/25/21 23:00 tramadol Allergy Verified 02/25/21 23:00 Home Medications Medication Instructions Recorded Confirmed Last Taken Type furosemide [Lasix] 10 mg PO DAILY 02/25/21 02/25/21 02/24/21 11 :00 History potassium chloride [Klor-Con 10] 10 meq PO DAILY 02/25/21 02/25/21 02/24/21 11:00 History PMH (from Triage) Patient Medical History PMH Reviewed/Updated as Needed: Yes PMH/PSH from Triage: Medical History (Updated 02/25/21 @ 22:56 by Yaya Pascal RN) 1st degree AV block (Medical) I44.0 Cardiomegaly (Medical) I51.7 delivery delivered (Medical) O82 Dilated cardiomyopathy (Medical) I42.0 Gastrointestinal disease (Medical) K92.9 H/O: hysterectomy (Medical) Z90.710 History of appendectomy (Medical) Z90.49 History of right hemicolectomy (Medical) Z90.49 Hx of cholecystectomy (Medical) Z90.49 Left bundle branch block (Medical) I44.7 JOSE (obstructive sleep apnea) (Medical) G47.33 Surgical History (Updated 02/25/21 @ 22:56 by Yaya Pascal RN) H/O: hysterectomy (Surgical) Z90.710 History of appendectomy (Surgical) Z90.49 History of right hemicolectomy (Surgical) Z90.49 Hx of cholecystectomy (Surgical) Z90.49 Dilated cardiomyopathy, left bundle branch block, first-degree AV block, myotonic dystrophy, Female History : No Hx Recent Travel Nurse screening for coronavirus: Recent Travel outside the No country (where) Has patient experienced No coronavirus symptoms [facility] Medical History (Updated 02/25/21 @ 22:56 by Yaya Pascal, RN) 1st degree AV block Cardiomegaly delivery delivered Dilated cardiomyopathy Gastrointe stinal disease Left bundle branch block JOSE (obstructive sleep apnea) Surgical History (Updated 02/25/21 @ 22:56 by Yaya Pascal, RN) H/O: hysterectomy History of appendectomy History of right hemicolectomy Hx of cholecystectomy Social History Does the Patient have a Healthcare Proxy: Yes (Dr Carrasco) Does Patient have a DNR?: No Does Patient have a Living Will?: No Smoking Status: Never smoker ROS Review of Systems Constitutional: Denies fever, chills, sweats, weakness, malaise, weight loss, weight gain or other Eyes: Denies vision change, eye discharge/drng, redness, eye pain, descr of pain, conjunctiva inflammation, eyelid inflammation, eyelid issues, floaters, foreign body, r/t accident, contact lens user,wears glasses or other ENT: Denies mouth pain, mouth swelling, dental pain, dry mouth, bleeding gums, ear pain, hearing loss, tinnitis, ear discharge, nasal pain, nasal discharge, nasal congestion, post n sury drip, epistaxis, throat pain, throat swelling, hoarseness, constant throat clearing, pain upon swallowing,recent head trauma, recent airplane travel, recent swimming/diving, uses hearing aid/ear plugs, painworse with motion, prolonged use of topical meds or other Respiratory: Reports SOB; Denies cough, sputum, orthopnea, SOB w/exertion rest, SOB with excertion, SOB at rest, stridor, wheezing, hemoptysis, pleuritic pain, exposures or other Cardiovascular: Reports chest pain Gastrointestinal: Denies No Symptoms/Complaints, nausea, vomiting, abdominal pain, diarrhea, constipation, heartburn, reflux/regurg, frequent belching, hemorrhoids, hematemesis, black tarry stools, melena, hematochezia, coffee grounds emesis, stomach pain relieved by food, hx of jaundice or other Genitourinary-Female: Reports other (Chronic bladder dysfunction); Denies dysuria, frequency, incontinence, stress incontinence, hematuria, retention, cloudy or smoky urine, nocturia, kidney stones, over-active bladder, urgency, rash or ulcers or h/o STDs Musculoskeletal: Reports other (Generalized muscle aches and pains); Denies neck pain, shoulder pain, arm pain, back pain, hand pain, leg pain, foot pain, thigh or calf cramps, muscle weakness, muscle tenderness, joint swelling, sciatica, muscle pain or joint pain Skin/Breasts: Denies rash, lesions, hives, pruritus, bruising, change in color, color changes w/cold, sensitivity to sun, change in hair/nails, breast pain, breast lump, nipple discharge, other,tightness, nodules or bumps or hair loss Psychiatric: Denies No Symptoms/Complaints, anxiety, depression, auditory hallucinations, visual hallucinations, suicidal thoughts, homicidal thoughts, hopelessness, helplessness, change in energy,change in sleep patterns, change in motivation, change in concentration, change in sexual urges, feelings of guilt, anhedonia or other Endocrine: Denies No Symptoms/Complaints, Excessive sweating, Loss of appetite, Increased appetite, Intolerance to cold, Intolerance to heat, Flushing, Polydipsia, Polyuria, Increased salt intake, Fingernail changes, Unexplained weight gain, Unexplained weight loss, Decreased sexual desire or Other Hematological/Lymphatic: Denies No Symptoms/Complaints, easy bleeding, easy bruising, swollen glands, petechiae, lympathadenopathy, purpura or other Physical Exam General Physical Exam Narrative: This is a 30-year-old morbidly obese white female who is awake alert oriented x3 and in no acute distress but certainly anxious and mildly uncomfortable secondary to herpresenting symptoms. Limitations: no limitations General appearance: alert and in no apparent distress Head Head exam: Present atraumatic, normocephalic and normal inspection Eye Eye exam: Present normal apperance, PERRL and EOMI; Absent scleral icterus, conjunctival injection or nystagmus ENT ENT exam: Present normal exam, normal orophraynx and mucous membranes moist Neck Neck exam: Present normal inspection, full ROM and supple; Absent tenderness, meningismus or lymphadenopathy Respiratory Respiratory exam: Present normal lung sounds bilaterally Cardiovascular Cardiovascular Exam: Present regular rate and normal rhythm GI/Abdominal GI/Abdominal exam: Present Abd soft, bowel sounds present all quadrents Rectal Rectal exam: Present deferred Extremities Exam Extremities exam: Present normal inspection and Full ROM without tenderness, capillary refill brisk;Absent pedal edema Back Exam Back exam: Present normal inspection and full ROM; Absent tenderness, CVA tenderness (R) or CVA tenderness (L) Neurological Exam Neurological exam: Present alert, or iented X3 and CN II-XII intact Psychiatric Psychiatric exam: Present normal affect and normal mood; Absent depressed or agitated Skin Skin exam: Present warm, dry, intact and normal color; Absent rash, cyanosis or diaphoretic Vital Signs Vital Signs: Vital Signs 02/25/21 22:10 02/25/21 23:02 Temperature 97.8 F Pulse Rate 84 70 Respiratory Rate 18 Blood Pressure 105/64 116/57 O2 Sat by Pulse Oximetry 97 MDM (comprehensive) Lab Data Labs: 02/25/21 23:59 02/25/21 23:59 Laboratory Results Last 24 hours 02/25/21 23:59: WBC 5.9, RBC 4.54, Hgb 14.6, Hct 44.3, MCV 98 H, MCH 32 H, MCHC 33, RDW 13, Plt Count 179, MPV 10.7, Immature Gran % (Auto) 0.3, Neut % (Auto) 67.7, Lymph % (Auto) 24.8, [place] % (Auto) 6.0, Eos % (Auto) 0.7, Baso % (Auto) 0.5, Lymph # (Auto) 1.5, Abs Immat Gran (auto) 0.0, Add Manual Diff No, Absolute Neutrophils 4.0, Monocytes # 0.4, Absolute Eosinophils 0.0, Absolute Basophils 0.0 02/25/21 23:59: Sodium 145, Potassium 3.4 L, Chloride 111 H, Carbon Dioxide 27, Anion Gap 10, BUN 14, Creatinine 0.7, GFR Calculation Greater than 60, Glucose 86, Calcium 9.4, Total Bilirubin 0.4, AST 32, ALT 44, Alkaline Phosphatase 90, Creatine Kinase 360 H, CK-MB (CK-2) 9.0 H, CK-MB (CK-2) % 2.5, Troponin I Less than 0.015, Serum Total Protein 7.9, Albumin 4.2 02/25/21 23:59: Btr-L-Ckgrfnkzlpp Pept 226.00 H 02/26/21 02:20: Troponin I Less than 0.015 EKG Data -: EKG Interpreted by Me Rate: normal EKG Data EKG comments: Left bundle branch block that is reported to be chronic by patient history A second EKG was performed as the patient complained of having some chest discomfort which is unchanged from the first. Radiology Data Radiology results: report reviewed Radiology impressions: Chest x-ray no acute disease per radiology Medical Decision Making Free Text/Narative:: At this point time the patient states her pain despite being very comfortable in appearance in the room is approximately a 6 out of 10. She states she is allergic to aspirin. At this point we are going to treat her with nitro glycerin while the evaluation has been completed. Patient became mildly hypotensive after nitro was placed on her chest. This was removed and her symptoms resolved. 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 At this point time we are to repeat a troponin in another hour and then if negative admit her observation status. Reason for admission is the patientis unusual history. At this point time it was discussed with the hospitalist team and they will undoubtedly consult with the patient's fmd teacher sometime tomorrow. 0320 hrs. Second troponin was negative. At this point time would appear most likely the patient's chest pain is noncardiac however with her reported extensive history was felt that the patient should be observed for at least the next 12 to 24 hours or at least until the time of the additionalserial troponin can be obtained and consultation with the patient's fmd teacher by phone could be made. I spoke with the hospitalist. They will admit the patient at this point time. Plan Visit Medications Administered E D medications:: Medications Discontinued Medications Generic Name Dose Route Start Last Admin Trade Name Freq PRN Reason Stop Dose Admin Lidocaine HCl 15 ml/ Al 0 ml 02/26/21 01:15 02/26/21 01:26 Hydroxide/Mg Hydroxide 30 ml/ PO 02/26/21 01:16 Not Given Belladonna/Phenobarbital 5 ml 1T ONE Nitroglycerin 1 inch 02/25/21 22:45 02/25/21 23:02 Nitroglycerin 2% Oint (1 Gm Packet) TP 02/25/21 22:46 1 inch 1T ONE Administration Discharge Plan Admission/Discharge Dx Primary (Admit) Diagnosis: Chest pain of uncertain etiol ogy, history of cardiomyopathy ED Provider: Yfn Beltran ED Status: Physician Time Seen by Provider: 02/25/21 22:20 Triaged At: 02/25/21 22:10 Condition Condition: Stable Discharge Detail Disposition: [facility] New Prescriptions: No Action potassium chloride [Klor-Con 10] 10 mEq Tablet Extended Release 10 meq PO DAILY RF: 0 furosemide [Lasix] 20 mg Tablet 10 mg PO DAILY RF: 0 *Discharge Patient* Discharge Orders: Provider hand off (NOW); Ordered 02/26/21 Ordered By: Yfn Beltran Interventions Interventions: ED Cardiac Assessment Last Done: 02/25/21 22:45 Report Signers: <Electronically signed by Yfn Beltran > Yfn Beltran 02/26/21 0332 Yfn Beltran SIGNATURE DA Report Cosigners: D: RHETT 02/25/212227 T: RHETT 02/25/212227 CC: Tyrone MATOS ([facility] Name Value Range Interpretation Code Description Data Renee rce(s) Supporting Document(s) ID Date Data Source [id number] 02/25/2021 01:57:44 PM EDT [facility] Name Value Range Interpretation Code Description Data Renee rce(s) Supporting Document(s) Progress Note [facility] QRFWUx6qEaMOLjJq50/UIWrcWXUvk5JcGZynVBl6KLomHUEgF7RuHVO4yA9gNKE8WOuPDeLdYrPbMKB6 [facility] [file] ogICAgICAgICAgICAgICAgICAgICAgICAgICAgICAgICAgICAgICAgICAgICAgICAgICAgICAgICAgIC AgICAgICAgICAgICAgICAgICAgICAgICAgICAgICAgICAgICAgICAgDQogICAgICAgICAgICAgICAgIC AgICAgICAgICAgICAgICAgICAgICAgICAgICAgICAg ICAgICAgICAgICAgICAgICAgICAgICAgICAgICAgICAgICAgICAgICAgICAgICAgICAgDQogICAgICAg ICAgICAgICAgICAgICAgICAgICAgICAgICAgICAgICAgICAgICAgICAgICAgICAgICAgICAgICAgICAg ICAgICAgICAgICAgICAgICAgICAgICAgICAgICAgIC AgDQogICAgICAgICAgICAgICAgICAgICAgICAgICAgICAgICAgICAgICAgICAgICAgICAgICAgICAgIC AgICAgICAgICAgICAgICAgICAgICAgICAgICAgICAgICAgICAgICAgICAgDQogICAgICAgICAgICAgIC AgICAgICAgICAgICAgICAgICAgICAgICAgICAgICAg ICAgICAgICAgICAgICAgICAgICAgICAgICAgICAgICAgICAgICAgICAgICAgICAgICAgICAgDQogICAg ICAgICAgICAgICAgICAgICAgICAgICAgICAgICAgICAgICAgICAgICAgICAgICAgICAgICAgICAgICAg ICAgICAgICAgICAgICAgICAgICAgICAgICAgICAgIC AgICAgDQogICAgICAgICAgICAgICAgICAgICAgICAgICAgICAgICAgICAgICAgICAgICAgICAgICAgIC AgICAgICAgICAgICAgICAgICAgICAgICAgICAgICAgICAgICAgICAgICAgICAgDQogICAgICAgICAgIC AgICAgICAgICAgICAgICAgICAgICAgICAgICAgICAg ICAgICAgICAgICAgICAgICAgICAgICAgICAgICAgICAgICAgICAgICAgICAgICAgICAgICAgICAgDQog ICAgICAgICAgICAgICAgICAgICAgICAgICAgICAgICAgICAgICAgICAgICAgICAgICAgICAgICAgICAg ICAgICAgICAgICAgICAgICAgICAgICAgICAgICAgIC AgICAgICAgDQogICAgICAgICAgICAgICAgICAgICAgICAgICAgICAgICAgICAgICAgICAgICAgICAgIC NzSKVxOHIoIJOsZALmOORvKVWmTYGoULEdOBHxGWNmNJMeLSUyVDDlMSSxFEPmQPAtKFw3J4jwWCJcCY TiPK3gTJn4Ut3+CQxARbXkAPA8onGzsK1LVT7rv9Nk VUyvHCJvs0YaGDv2QK9WNJIoFVwcZY1KVPjtkd9OTWPcRUXpyAWDm8rnYhGqIBC7KGEuLsoeBP2CLTRa F9anbwDkMJCnNCQBRNvtJRDIPGenFCLJSNHcCSAeNmVvLmVsHMAeBCSkWXRZPW7ZClCdQ9FlvE99UEBO Cj4+FKlhlaSoRiiZDuS8YZCck2QbDLg2SE4FPOOkSp fai5LlFaPrWAPEYXdcBX1FVPN3MSO1UUZwFi7CNKMtN416riVtEX4CBd8GIlTzGA0hif4JXkDqAWMpNl xQEip1BVoaTS0UpDYhMWrMti7dspPzofDUu1UftiBwrXDUrQVkZJAuRDPicf2cSP9ZMME7SEjrCN6zSB BmMNHcRuGuQHJIDI2UFHLjUDNblNFtQJBnHRYIJK5X OIkiDKD0GOJaetPgmJFdEDfbVY2CTSKvigYrBbBsNTRYPDs+Ry2GCE1gf2MvWLtiDlKlOO6pbb6NPMsU TlRqY7I0fMCmC2G7TMnrSt8GSMRaTLNkOzLyDKIGNVfoHR8VPM0msyM2HD4XiUGtCBYmUNQciYPhEIy4 M38frMYyIHfqBA0HEEG+Ivett+Um1GFLZxYPGfIWBzCj UxFZFBVfTaA4MtX0UNd5IlW0UwPB29rKtfldKpSUabGJ3WCI5kFOTqYYUFQC0SpDYloV5iuwHiWVDlBW YISrBgQ00haJAiYRQxDCV7YISvNn0WJPEjN8YmiwAbbOaovyHmCOEqHFFHNL3ZIDamboZfjNVloMftSH 52hSfcKS8XQk8IJlXjNS4xts9AkGRkBo8NGWZtYR1M KARbVQRfJRWaUGL2XBOuGbMjSAiaMCYiITZsHLN5YVHxEDFwIT7KRrBaBJQsBcL6WnlqTRHlSEZbxi4L PAPoIDEuDWQ0XRGnOHNtXOSwAPobJLYcGURpMMP3QXYhCZIjPI4NLnZaHQIlARF1AHddIMUmSJVhyl4T RWPmYWVhIUJ2SoDmECVaYNVuSUnkOOYhHXU7GPT9MK ZqBCAbQR4PNiYiFKKpPClvHqRfIXXdOPCfzo3NYULiJJJpRGU2JmXxEJEiWYXqVEmqPFLsSWHlTHEuIM BrATVwAB0PJiOvCNCvTXYlRALePLZmRNFsas1FVIRpCUXiMyF3CLDaDJMtDFDlZSmyETFhOIZ0ASP0VB NoDLWpJC0XWhEnEDRwAFVdXbOnKAInTCLvsn2SUDZh TCWqNBF9PpKyGEJbGDTeKRciRPVaHZL2CzSyXVJeGQIbYZ1ULaOtQESiDGp4RZYySEMoCFXyqo5BCCKs UKUbQDlsNGPgFRCuGPUyBJtqTHJwIHSwOQovXVGiBYLtOC0GPeLeMYWlFyRaOGJrYQEwVKQnia8HWAQz EZAeLKB1YvQfPKVhGRWpMYssBCUiSJWjZNSvFFJtYO CeYB4ILuIzRPEbKmI9YlHvWZUwAZOzwu2IAFReETPzWuM3OuBvLWXnGLJvJKiqJCDnIYWaKFU0HAGbXS HhVS5WJaErMSKaOoQ2ADAsSAPbXGBuyf4SOOJgFMStUkrgXALcOYWbQRIyZGegQHEeRSF2VvH5OYPiDJ WeNC7BZnYpECFeXsB6AgMaJNRxZBYjqt7MQUNdPDYz LHZuKUByVCYxVCQlOMkiOKGsIFZ1FFR2KYObKRVqEF1OZoPlNDFzSmRmJeVtCIMwUCUzos4RVHDjXCJr AhZeYcNxMGAsGIZtEEqzRXWuEIF5WXYoYGGaQIMtHS4SFhCkAQCgYxyxEHTvYIKeUUYfqg9FIVCdCCIc EUW3KzNxYCHrQDVvZNhbDSZeUUY8WPW2BFMgKTWpQW 9EOpBnZNgmJDBCOll7ZEesU6h0JJHkDN2EP1Frf0TqEilhHQZMAGdxET2guaRrTGHcMq2YM2tVKnjhEA L3ZlMzKOMnDeqfBuTdLcCrWbVnSZNgIHL5L7E9OG9xFPIzIYJwZzDwSEGxHZUzFENxClD0FnWmCQIuOV z0ZAl0LzNlVM0LKc1UYpH4MGC1tDRqQu5YCkj3EgEIAoBfUQ8OEAo= ID Date Data Source [id number] 02/12/2021 01:24:00 [place] [address] PHONE: [phone] FAX: [phone] Name .................. : ELI Long Acct Number.................. : [id number] ROOM. ................. : TR-07 Number ................... : [id number] Stay type ............. : E/R Discharge Date......... ... : 02/12/21 Admit Date ......... : 02/12/21 Admit Phys .................... : JOI COATES Date of ....... : 1990 Family Phys ................... : JOSE KIDD Phone .................. : [phone] Age ................................ : 30 Film# .................. .:[id number] Sex ................................. : F Unsigned transcriptions are preliminary reports and do not represent a medical or legal document ABDOMEN 1 VIEW [id number] COMPLETE:02/12/21 07:01 MWB [id number] Reason(s): Abdo yudy Pain KUB, 02/12/21: FINDINGS: There is a non-obstructive bowel gas pattern with a marked amount of retained feces. The bowel gas pattern obscuring the kidneys, but renal calculi are not appreciated. There are pelvic calcifications. IMPRESSION: Phleboliths or vascular calcification. Consider CT scan for further evaluation. Electronically Reviewed and Signed By Randal Dinero MD , 02/12/21 13:24, AML Transcribe Initials: SSR, Transcribe Date: 02/12/21 07:58, Dictation Date: Copy for: EMERGENCY DEPT via modem Copy f or: 710 MED REC DISCHARGED Page 1 of 1 Name Value Range Interpretation Code Description Data Renee rce(s) Supporting Document(s) ID Date Data Source [id number] 02/12/2021 12:21:00 AM EDT [facility] 1 OrderSheet [facility] Emergency Department [address] [place] [address] Phone #: ext- [phone] 02/12/2021 00:19 Patient: COREY CORTEZ Sex: F : 1990 Age: 30yWEIGHT:117.4 kg HEIGHT:69 inches BMI:38.2ALLERGIES: Apririn causes trouble breathing, Reglan causes syncope, Tramadol causes seizuresCHIEF COMPLAINT: abdominal pain, constipationDIAGNOSIS: ConstipationLAB ORDERSOrder Description Priority Entered Acknowledged InitialedCBC w Diff STAT 01:38 02/12/2021 02:40 Joi Denny Riccardo Laura R.N. M.D.;CMP STAT 01:38 02/12/2021 02:40 Joi Denny Riccardo Laura R.N. M.D.;Lipase STAT 01:38 02/12/2021 02:40 Joi Denny Riccardo Laura R.N. M.D.;Urinalysis (Clean STAT 01:38 02/12/2021 02:42 Maxim Garcia) Nikhil Cameron R.N. M.DKari;Lactic Acid STAT 01:38 02/12/2021 02:40 Joi Denny Riccardo Laura R.N. M.D.;DIAGNOSTIC STUDY ORDERSOrder Description Priority Entered Acknowledged InitialedAbdomen 1 View STAT 02:56 02/12/2021 Ack'd: 02:56 03:03 Joi Madrigal Riccardo Beyer, Katelyn Katelyn M.D.; Reason for Study: Abdominal Pain, ConstipationMEDICATION/IV/DRIP/FLUID ORDERSOrder Description Priority Entered Acknowledged InitialedNS IV 1000 mL 01:39 02/12/2021 02:43 Andree Garcias: : Bolus 1000 Joi Nikhil R.N.mL (X1) M.DKari;Zofran 4 mg IVP X 1 01:42 02/12/2021 02:43 Yovany Garciase: 4 mg (NOW Turrin, Nikhil R.NKarix1) Derick; 2 OrderSheet [facility] Emergency Department [address] [place] [address] Phone #: ext- [phone] 02/12/2021 00:19 Patient: COREY CORTEZ Sex: F : 1990 Age: 30yPepcid IVPB 20 01:42 02/12/2021 02:45 Sheridan Garciamg/50mL (NOW x1, Nikhil Cameron R.N.Infuse over 30 M.D.;minutes.)Magnesium Citrate 03:49 02/12/2021 Ack'd: 03:49 03:50 Rohan,PO 150 mL Nikhil Cameron Katelyn Katelyn M.D.;GENERAL ORDERSOrder Description Priority Entered Acknowledged InitialedNPO 01:38 02/12/2021 01:39 Joi Madrigal Riccardo Katelyn M.D.;Saline Lock 01:38 02/12/2021 02:40 Joi Denny Riccardo Laura R.N. M.D.;[Electronically signed by Sheridan Garcia R.N. (04:00 0 02/12/2021)][Electronically signed by Nikhil Cameron M.D. (04:36 02/12/2021)][Electronically locked by Sheridan Garcia R.N. (04:00 02/12/2021)] Name Value Range Interpretation Code Description Data Renee rce(s) Supporting Document(s) ID Date Data Source [id number] 02/12/2021 12:21:00 AM EDT [facility] 1 Medication Reconciliation Report [facility] Emergency Department [address] [place] [address] Phone #: ext- [phone] 02/12/2021 00:19 Patient: COREY CORTEZ Sex: F : 1990 Age: 30yWeight: 117.4 kgHeight/Length: 69 in.BMI: 38.2ALLERGIES: Apririn causes trouble breathing, Reglan causes syncope, Tramadol causes seizuresThe patient's Home Medications are listed below:CONTINUE TAKING THE FOLLOWING MEDICATIONS: Lasix Oral 20 mg, dailyThe source(s) of the original H ome Medication information:Not obtained.The following Medications were given to the patient in the Emergency Department:NS [IV] IV Fluids bolus 1000 mL over 40 minute(s), administered: 02:43 02/12/2021Zofran [IVP] IVP 4 mg, administered: 02:43 1Pepcid [IVPB] IVPB bolus 0, then 20 mg 100 mL/hr, administered: 02:44 02/12/2021Magnesium Citrate [PO] PO 150 mL, administered: 03:50 02/12/2021The following Medications were prescribed to the patient:Colace 100 mg capsule Take 1 capsule twice a day for 7 days -- Dispense 14 capsule. Refills: 2.Substitution permitted.Pharmacy - [id number] - [id number] ; [place] [address]. FaxNumber: . -- Nikhil Cameron M.D. Name Value Range Interpretation Code Description Data Renee rce(s) Supporting Document(s) ID Date Data Source [id number] 02/12/2021 12:21:00 AM EDT [facility] 1 Medication Administration Record [facility] Emergency Department [address] [place] [address] Phone #: ext- [phone] 02/12/2021 00:19 Patient: COREY CORTEZ Sex: F : 1990 Age: 30yWeight: 117.4 kgHeight/Length: 69 inBMI: 38.2ALLERGIES: Apririn causes trouble breathing, Reglan causes syncope, Tramadol causes seizures Date/Time Medication Administered Medication OrderedStart NS [IV] NS IV 1000 mL Bolus: : Bolus 778217:[id number] 02/12/2021 Dose: IV Fluids mL (X1)Sheridan Garcia RAshwin Bolus: 1000 mL over 40 minute(s)---- Site: #1 right LTWdqb76:56 02/12/2021Sheridan Garcia R.N.Given ZOFRAN [IVP] (ONDANSETRON HCL) Zofran 4 mg IVP X 1 dose: 4 mg02:43 02/12/2021 Dose: 4 mg IVP (NOW x1)Sheridan Garcia R.N. Site: #1 right ACStart PEPCID [IVPB] Pepcid IVPB 20 mg/50mL (NOW02:44 02/12/2021 Dose: 20 mg IVPB x1, Infuse over 30 minutes.)Sheridan Garcia R.N. Rate: 100 mL/hr over 30 minute(s)---- Dispensed: 50 mL bagStop Site: #1 right AC03:15 1BKelley adame,Given MAGNESIUM CITRATE [PO] Magnesium Citrate PO 150 mL03:50 02/12/2021 Dose: 150 mL Kelley Resendiz, Name Value Range Interpretation Code Description Data Renee rce(s) Supporting Document(s) ID Date Data Source [id number] 02/12/2021 12:21:00 AM EDT [facility] 1 General Instructions [facility] Emergency Department [address] [place] [address] Phone #: ext- [phone] 02/12/2021 00:19 Patient: COREY CORTEZ Sex: F : 1990 Age: 30yConstipationINSTRUCTIONSDrink plenty of fluids. Avoid alcohol and NSAIDS. NSAIDS include aspirin, ibuprofen (Advil) and naproxen(Aleve). Avoid fatty, fried/greasy, lactose-containing (such as milk, cheese and ice cream), salty and spicyfoods. No alcohol. Do not smoke.(PLEASE TAKE THE OTHER HALF OF THE MAG CITRATE IN 12-14 HRS).Warnings: Further evaluation is necessary. It is very important to follow up with a healthcare provider.GENERAL WARNINGS: Return or contact your physician immediately if your condition worsens orchanges unexpectedly, if not improving as expected, or if other problems arise. SPECIFICALLY, return ifyou develop pain in the abdomen, pelvis, back or shoulder, fever, vomiting, the inability to keep fluidsdown, blood in vomitus, blood in diarrhea, fainting or lightheadedness.Your Current Medications: Your current home medications have been reviewed.CONTINUE TAKING THE FOLLOWING MEDICATIONS:Lasix Oral : 20 mg daily.Prescription Medications:Colace 100 mg capsule Take 1 capsule twice a day for 7 days -- Dispense 14 capsule. Refills: 2.Substitution permitted.Pharmacy - [id number] - [phone] ; [place] [address]. FaxNumber: .Follow-up:Return to the emergency department as needed. Follow up with your healthcare provider in two days ifnot better. Call for an appointment. Reason for referral: evaluation and treatment. Summary of careprovided to patient via paper.Understanding of the discharge instructions verbalized by patient. Expected course of illness, dischargeinstructions, activity level, diet, prescriptions x1, follow-up appointment and risks and benefits of treatmentreviewed with patient and understanding verbalized. Agrees to plan of care. ADDITIONAL INFORMATIONConstipation (Adult) 2 General Instructions [facility] Emergency Department [address] [place] [address] Phone #: ext- [phone] 02/12/2021 00 :19 Patient: COREY CORTEZ Sex: F : 1990 Age: 30yConstipation means that you have bowel movements that are less frequent than usual. Stools oftenbecome very hard and difficult to pass.Constipation is very common. At some point in life, it affects almost everyone. Since everyone'sbowel habits are different, what is constipation to one person may not be to another. Your healthcareprovider may do tests to diagnose constipation. It depends on what he or she finds when evaluatingyou.Symptoms of constipation include: Abdominal pain Bloating Vomiting Painful bowel movements Itching, swelling, bleeding, or pain around the anusCausesConstipation can have many causes. These include: Diet low in fiber Too much dairy Not drinking enough liquids Lack of exercise or physical activity (especially true for older adults) Changes in lifestyle or daily routine, including , aging, work, and travel Frequent use or misuse of laxatives Ignoring the urge to have a bowel movement or delaying it until later 3 General Instructions [facility] Emergency Department [address] [place] [address] Phone #: ext- [phone] 02/12/2021 00:19 Patient: COREY CORTEZ Sex: F : 1990 Age: 30y Medicines, such as certain prescription pain medicines, iron supplements, antacids, certain antidepressants, and calcium supplements Diseases like irritable bowel syndrome, bowel obstructions, stroke, diabetes, thyroid disease, Parkinson disease, hemorrhoids, and colon cancerComplicationsPotential complications of constipation can include: Hemorrhoids Rectal bleeding from hemorrhoids or anal fissures (skin tears) Hernias Dependency on laxatives Chronic constipation Fecal impaction, a severe form of constipation in which a large amount of hard stool is in your rectum that you can't pass Bowel obstruction or perforationHome careAll treatment should be done after talking with your healthcare provider. This is especially true if youhave another medical problems, are taking prescription medicines, or are an older adult. Treatmentmost often involves lifestyle changes. You may also need medicines. Your healthcare provider will tellyou which will work best for you. Follow the advice below to help avoid this problem in the future.Lifestyle changesThese lifestyle changes can help prevent constipation: Diet. Eat a high-fiber diet, with fresh fruit and vegetables, and reduce dairy intake, meats, and processed foods Fluids. It's important to get enough fluids each day. Drink plenty of water when you eat more fiber. If you are on diet that limits the amount of fluid you can have, talk about this with your healthcare provider. Regular exercise. Check with your healthcare provider first.Medicines 4 General Instructions [facility] Emergency Department [address] [place] [address] Phone #: ext- [phone] 02/12/2021 00:19 Patient: COREY CORTEZ Sex: F : 1990 Age: 30yTake any medicines as directed. Some laxatives are safe to use only every now and then. Others canbe taken on a regular basis. While laxatives don't cause bowel dependence, they are treating thesymptoms. So your constipation may return if you don't make other changes. Talk with yourhealthcare provider or pharmacist if you have questions.Prescription pain medicines can cause constipation. If you are taking this kind of medicine, ask yourhealthcare provider if you should also take a stool softener.Medicines you may take to treat constipation include: Fiber supplements Stool softeners Laxatives Enemas Rectal suppositoriesFollow-up careFollow up with your healthcare provider if symptoms don't get better in the next few days. You mayneed to have more tests or see a specialist.Call [phone] [phone] if any of these occur: Trouble breathing Stiff, rigid abdomen that is severely painful to touch Confusion Fainting or loss of consciousness Rapid heart rate Chest painWhen to seek medical adviceCall your healthcare provider right away if any of these occur: Fever of 100.4F (38C) or higher, or as directed by your healthcare provider Failure to resume normal bowel movements 5 General Instructions [facility] Emergency Department [address] [place] [address] Phone #: ext- [phone] 02/12/2021 00:19 ----- Patient: COREY CORTEZ Sex: F : 1990 Age: 30y Pain in your abdomen or back gets worse Nausea or vomiting Swelling in your abdomen Blood in the stool Black, tarry stool Involuntary weight loss Weakness 0423-0517 [employer]. [address] [place] [address]. All rights reserved. This information is not intended as asubstitute for professional medical care. Always follow your healthcare professional's instructions. You have been given the following additional information: Constipation (Adult)(Electronically signed by Nikhil Cameron M.D. 02/12/2021 04:36) Name Value Range Interpretation Code Description Data Renee rce(s) Supporting Document(s) ID Date Data Source [id number] 02/12/2021 12:21:00 AM EDT [facility] 1 Clinical Report - Nurses [facility] Emergency Department [address] [place] [address] Phone #: ext- [phone] 02/12/2021 00:19 Patient: COREY CORTEZ Sex: F : 1990 Age: 30yTRIAGEArrived by private vehicle.Acuity: LEVEL 3.Chief Complaint: ABDOMINAL PAIN and CONSTIPATION.00:25 02/12/21. Alert. No acute distress.Onset. (about 9 days ago). ( Pt reports no bowel movement x 9 days. Reports nausea with 4 episodes ofemesis daily. Generalized abdominal pain. Denies fevers. Taken miralax at home with no relief.). Thepatient has had nausea, vomiting, constipation and abdominal pain.SEPSIS SCREEN: SIRS SCREEN NEGATIVE. SEPSIS SCREEN NEGATIVE. No suspected or confirmedsigns of infection present.TEENA COMA SCORE: 15- eyes open- spontaneous (4); best verbal response- oriented (5); bestmotor response- obeys commands (6). --00:02/12/21 Sheridan Garcia R.N.00:20 02/12/21. BP: 117/81. MAP: 93. HR: 74. RR: 17. O2 saturation: 98% on room air. Temp: 97.1 F.Pain level now: 10/27. --00:02/12/21 Sheridan Garcia R.N.Weight: 117.4 kg. Height/Length: 69 inches. BMI: 38.2. --00:24 02/12/21 Sheridan Garcia R.N.MedicationsLasix Oral 20 mg, daily. --00:02/12/21 Sheridan Garcia R.N.AllergiesApririn causes trouble breathing.Reglan causes syncope.Tramadol causes seizures. --00:02/12/21 Sheridan Garcia R.N.PROBLEMS:Left bundle branch block.Myotonic dystrophy.Av block.Hypothyroidism.Gastrodysmobility. --00:02/12/21 Sheridan Garcia R.N.The following entry was modified by Sheridan Garcia R.N., 00:02/12/21Cardiomyopathy. --00:22 02/12/21 Sheridan Garcia R.N.. 2 Clinical Report - Nurses [facility] Emergency Department [address] [place] [address] Phone #: ext- [phone] 02/12/2021 00:19 Patient: COREY CORTEZ Sex: F : 1990 Age: 30y ADDITIONAL SURGERIES: Appendectomy. Carcinoid tumor removed. Cholecystectomy. C- Section. Endoscopy. Hemicolectomy. Hysterectomy. Left arm surgery. Right hemicolectomy. Tubal Ligation. --00:23 02/12/21 Sheridan Garcia R.N. History 00:25 02/12/21. SOCIAL HX: Never smoker. No alcohol use or drug use. The patient was offered HIV testing but declined and hepatitis C testing but declined. The byron pereira has not traveled outside the [place] Infectious disease exposure: The patient was not exposed to C-diff, MRSA, VRE, CRE or Coronavirus. SELF HARM ASSESSMENT: Self harm assessment was performed. The patient answered "no" to the question(s) "Have you recently felt down, depressed, or hopeless?", "Do you have thoughts of harming or killing yourself?", "Do you have a plan for harming or killing yourself?", "Have you recently had thoughts about harming or killing others?", "Do you have any dangerous items in your possession?", "Have you noticed less interest or pleasure in doing things?", "Are you here because you tried to hurt yourself?" and "Have you ever tried to hurt yourself before today?". ABUSE ASSESSMENT: No report of abuse. NUTRITIONAL RISK ASSESSMENT: The nutritional risk assessment revealed no deficiencies. FUNCTIONAL ASSESSMENT: Functional assessment: no impairments noted. LEARNING NEEDS ASSESSMENT: The learning needs assessment revealed no barriers. FALL RISK ASSESSMENT: Fall risk assessment completed. No risk factors identified. Fall interventions initiated. Verbalizes understanding. SKIN INTEGRITY ASSESSMENT: Skin integrity risk assessment completed. No skin integrity risk identified. --00:25 7/27/21 Sheridan Garcia R.N. Interventions 00:02/12/21. Identification and allergy band on patient. --00:02/12/21 Sheridan Garcia R.N.PHYSICAL [id number]:02/12/21. Ambulatory to room. 3 Clinical Report - Nurses [facility] Emergency Department [address] [place] [address] Phone #: ext- [phone] 02/12/2021 00:19 ------ Patient: COREY CORTEZ Sex: F : 1990 Age: 30y GENERAL / NEURO / PSYCH: Alert. Oriented X 4. Appears in no acute distress. HEENT: Mucous membranes are pink. RESPIRATORY: Respirations not labored. Breath sounds within normal limits. CVS: Normal sinus rhythm noted. Capillary refill less than 2 seconds. GI / : Abdomen soft. Abdominal tenderness diffusely. Bowel sounds within normal limits. ( Last BM 9 days ago per pt report. Nausea with vomiting. No vomiting observed.). SKIN: Skin is warm and dry. ( afebrile). --01:47 02/12/21 Sheridan Garcia R.N.NURSING PROGRESS NOTES00:02/12/21. Patient gowned. Two patient identifiers checked. Call light placed in reach. Side railsup x 1. Bed placed in lowest position. Brakes of bed on. Patient ready for evaluation- ED physiciannotified. --00:02/12/21 Sheridan Garcia R.N. Reassurance given. Rounding: Pain: assessed pain level. Position: states comfortable. Personal care / toileting: denies toileting needs. Proximity of possessions / care items: call light within easy reach. --01:23 02/12/21 Kelley Madrigal provided for the rectal exam by the physician. ( Dr. Cameron with this nurse. Patient tolerated well.). --01:39 02/12/21 Kelley Madrigal ( IV attempt x 2 by Kelley ARNDT, attempt x 1 by this RN, unsuccessful. aware.). --02:06 02/12/21 Sheridan Garcia R.N. 02:39 02/12/2021 Site #1 started via IV in the right antecubital space with an 22g angiocath, with aseptic technique; two attempts. Blood drawn: rainbow set. Sent to the lab. Saline lock flushed with 10 mL saline. --02:39 02/12/21 Rach Denny R.N. 02:43 02/12/2021 Started IV Fluids NS; bolus of 1000 mL over 40 minute(s) via site #1 via IV pump. Allergies verified and confirmed 5 rights. IV patency established. IV site checked: no pain, redness, or swelling. IV flushed thoroughly pre- and post-medication administration. Information reviewed with patient including reason for taking this medication, signs of allergic reaction and precautions. Verbalizes understanding. --02:43 02/12/21 Sheridan Garcia R.N. 02:43 02/12/2021 Zofran (Ondansetron HCl) IVP 4 mg given over 2 minute(s) via site #1. Allergies verified and confirmed 5 rights. IV patency established. IV site checked: no pain, redness, or swelling. IV flushed thoroughly pre- and post-medication administration. IVP given by RN. Information reviewed with patient including reason for taking this medication, signs of allergic reaction and precautions. V erbalizes understanding. --02:43 02/12/21 Sheridan Garcia R.NKari 02:44 02/12/2021 Started 20 mg of Pepcid IVPB in bag #1 50 mL; at 100 mL/hr over 30 minute(s) via site #1. via IV pump. Allergies verified and confirmed 5 rights. IV patency established. IV site checked: no pain, redness, or swelling. IV flushed thoroughly pre- and post-medication administration. Information reviewed with patient including reason for taking this medication, signs of allergic reaction and precautions. 4 Clinical Report - Nurses [facility] Emergency Department [address] [place] [address] Phone #: ext- [phone] 02/12/2021 00:19 Patient: COREY CORTEZ Sex: F : 1990 Age: 30y Verbalizes understanding. --02:45 02/12/21 Sheridan Garcia R.NKari 02:51 02/12/21. BP: 128/70. MAP: 89. HR: 68. RR: 16. O2 saturation: 98%. Pain level now: 12/27. --02:52 02/12/21 Sheridan Garcia R.N. Patient transported to radiology by wheelchair with mask and tech. --03:04 02/12/21 Kelley Madrigal 03:35 02/12/21. Patient returned from radiology by wheelchair with resident physician in radiology. --03:35 Sheridan Garcia R.N. 03:38 02/12/21. BP: 103/61. MAP: 75. HR: 61. RR: 17. O2 saturation: 100% on room air. Pain level now: 01/26. --03:39 02/12/21 Rach Denny RAshwin The patient is calm and resting quietly. --03:39 02/12/21 Rach Denny R.N. 03:15 02/12/2021 Pepcid IVPB via IV site #1 Discontinued: completed. Total amount infused: 50 mL. IV patency established. IV site checked: no pain, redness, or swelling. IV flushed thoroughly. --03:51 02/12/21 Kelley Madrigal 03:50 02/12/2021 Magnesium Citrate PO 150 mL given. Allergies verified and confirmed 5 rights. Information reviewed with patient including reason for taking this medication, signs of allergic reaction and precautions. Verbalizes understanding. --03:50 02/12/21 Kelley Madrigal 03:56 02/12/2021 IV Fluids NS via IV site #1 Discontinued: bag #1 discontinued upon discharge. Total amount infused: 500 mL. IV patency established. IV site checked: no pain, redness, or swelling. IV flushed thoroughly. --03:59 02/12/21 Sheridan Garcia R.N.DISPOSITION / DISCHARGE 03:58 02/12/2021 Site #1 removed upon discharge. Catheter intact. Pressure dressing applied. --03:58 02/12/21 Sheridan Garcia R.N. 03:59 02/12/21. Teena Coma Scale: 15- eyes open- spontaneous (4); best verbal response- oriented (5); best motor response- obeys commands (6). Condition at departure: stable. No learning barriers present. Discharge instructions provided and reviewed with the patient. Reviewed medication(s) side effects, precautions, dosing and course information. Prescription(s) given to the patient and sent electronically to pharmacy (given magnesium citrate to take home and e-rx for colace). Patient verbalized understanding. Written instructions provided in Palestinian. The patient was discharged by the physician. She was discharged home and accompanied by spouse. She left ambulatory and via private vehicle. Spouse driving. --03:59 02/12/21 Sheridan Garcia R.N. 03:59 02/12/2021 Temp: 97.4 F. --04:00 02/12/21 Sheridan Garcia R.N. 5 Clinical Report - Nurses [facility] Emergency Department [address] [place] [address] Phone #: ext- [phone] 02/12/2021 00:19 Patient: COREY CORTEZ Sex: F : 1990 Age: 30yLocked/Released at 02/12/2021 04:00 by Sheridan Garcia R.N. Name Value Range Interpretation Code Description Data Renee rce(s) Supporting Document(s) ID Date Data Source [id number] 02/12/2021 12:21:00 AM EDT [facility] 1 Clinical Report - Physicians/Mid Levels [facility] Emergency Department [address] [place] [address] Phone #: ext- [phone] 02/12/2021 00:19 Patient: COREY CORTEZ Sex: F : 1990 Age: 30y Time Seen: 00:40 02/12/2021; initial patient contact. Arrived- By private vehicle. Historian- patient. Disposition decision: 03:47 02/12/2021.HISTORY OF PRESENT ILLNESS Chief Complaint: ABDOMINAL PAIN and CONSTIPATION. This started 9 days ago and is still present. It is described as "pain" and cramping. No radiation. It is described as generalized in location. At its maximum, severity described as moderate. When seen in the E.D., severity described as moderate and 4 / 10. Modifying factors. Not worsened by anything. Not relieved by anything. The patient has had mild nausea and vomiting. No loss of appetite or diarrhea. No recent travel. Similar symptoms previously. Patient has had similar symptoms occasionally. Recent medical care: Not recently seen/assessed.REVIEW OF SYSTEMSThe patient has had constipation but not had weight loss. No black stools, hematemesis, difficulty withurination, pain with urination or urinary frequency. No bloody stools, fever, headache, sore throat orblurred vision. No chest pain, difficulty breathing, cough, joint pain or skin rash. No chills or back pain.Last bowel movement- 9 days ago. All other systems reviewed and are negative.PAST HISTORYSee nurses notes. Problems: Gastroesophageal Reflux Disease. Cardiomyopathy. Left bundle branch block. Myotonic dystrophy. Av block. Hypothyroidism. Gastrodysmobility. Additional Surgeries: Appendectomy. Carcinoid tumor removed. Cholecystectomy. . Endoscopy. Hemicolectomy. 2 Clinical Report - Physicians/Mid Levels [facility] Emergency Department [address] [place] [address] Phone #: ext- [phone] 02/12/2021 00:19 Patient: COREY CORTEZ Sex: F : 1990 Age: 30y Hysterectomy. Left arm surgery. Right hemicolectomy. Right hemicolectomy. Tubal Ligation. Medications: Lasix Oral 20 mg, daily. Allergies: Apririn causes trouble breathing. Reglan causes syncope. Tramadol causes seizures.SOCIAL HISTORYNever smoker. No alcohol use or drug use.ADDITIONAL NOTESThe nursing notes have been reviewed with agreement regarding the chief complaint, HPI, ROS, PMH andpatient medications and allergies.PHYSICAL EXAMVital Signs: 02/12/2021 00:20 BP: 117/81. MAP: 93. HR: 74. RR: 17. O2 saturation: 98% on room air.Temp: 97.1 F. Pain level now: 4/10. Have been reviewed. Oxygen saturation normal.Appearance: Alert. Oriented X3. No acute distress.Eyes: Pupils equal, round and reactive to light. Eyes normal inspection.ENT: Nose normal. Pharynx normal.Neck: Normal inspection. Neck supple.CVS: Normal heart rate and rhythm. Heart sounds normal. Pulses normal.Respiratory: No respiratory distress. Painless inspiration. Breath sounds normal. Chest nontender.Abdomen: Soft and nontender. Bowel sounds normal. No organomegaly. No mass. Femoral pulsesequal. Moderately obese.Back: Normal inspection. No CVA tenderness.Rectal: Rectal exam normal and nontender. (no stool in rectum).Skin: Skin warm and dry. Normal skin color. No rash. Normal skin turgor.Extremities: Extremities exhibit normal ROM. No lower extremity edema.Neuro: Oriented X 3. No motor deficit. No sensory deficit.LABS, X-RAYS, AND EKGKUB: (stools rt and lt colon). Views: AP. Technique: good. The X-rays were interpretedcontemporaneously by me. Interpretation time: 03:46 02/12/2021.Laboratory Tests: Laboratory tests have been ordered, with results reviewed and considered in themedical decision making process. CBC w Diff: (DEON: 02/12/2021 02:36) ( MsgRcvd 02/12/2021 02:48) Final results Test Result Flag Units (Reference) 3 Clinical Report - Physicians/Mid Levels [facility] Emergency Department [address] [place] [address] Phone #: ext- [phone] 02/12/2021 00:19 Patient: COREY CORTEZ Sex: F : 1990 Age: 30y CBC W/AUTOMATED DIFF COMPLETE BLOOD COUNT WBC 5.6 10/uL (4.2 - 11.0) RBC 4.38 10/uL (4.20 - 5.40) HEMOGLOBIN 14.3 g/dL (12.0 - 16.0) HEMATOCRIT 43.2 % (37.0 - 47.0) MCV 98.6 fL (81.0 - 101) MCH 32.6 pg (27.0 - 34.0) MCHC 33.1 g/dL (31.0 - 36.0) RDW 13.2 % (11.5 - 14.5) PLATELETS 204 10/uL (150 - 450) MPV 10.3 fL (7.4 - 10.4) NEUT 62.2 % (37.0 - 80.0) LYMPH 29.9 % (25.0 - 40.0) MONO 5.7 % (3.0 - 8.0) EOS 1.3 % (0.0 - 7.0) BASO 0.7 % (0.0 - 2.5) %IG 0.2 H % (0.0 - 0.0) %NRBC 0.0 % (0.0 - 0.0) #NEUT 3.47 10/uL (2.00 - 6.90) #LYMPH 1.67 10/uL (0.60 - 3.40) #MONO 0.32 10/uL (0.00 - 0.90) #EOS 0.07 10/uL (0.00 - 0.70) #BASO 0.04 10/uL (0.00 - 0.20) #IG 0.01 10/uL (0.00 - 0.10) #NRBC 0.00 10/uL (0.00 - 0.00) MANUAL DIFF NOT INDICATED RBC MORPH NOT INDICATEDCMP: (DEON: 02/12/2021 02:36) ( MsgRcvd 02/12/2021 03:13) Final results Test Result Flag Units (Reference) COMPREHENSIVE METABOLIC PANEL COMPREHENSIVE METABOLIC PANEL SODIUM 142 mEq/L (134 - 153) POTASSIUM 3.9 mEq/L (3.6 - 5.0) CHLORIDE 107 mEq/L (98 - 107) CO2 26 MEQ/L (22 - 30) GLUCOSE 87 MG/DL (70 - 99) BUN 16 MG/DL (7 - 21) CREATININE 0.7 MG/DL (0.7 - 1.5) BUN/CREAT 23 (8 - 27) TOTAL PROTEIN 7.4 G/DL (6.3 - 8.2) ALBUMIN 4.5 G/DL (3.9 - 5.0) GLOBULIN 2.9 GM/DL (2.4 - 3.2) A/G RATIO 1.6 (0.8 - 2.0) CALCIUM 9.7 MG/DL (8.4 - 10.2) TOTAL BILI <0.7 MG/DL (0.2 - 1.3) ALKALINE PHOS 123 U/L (38 - 126) SGOT/AST 39 U/L (5 - 40) SGPT/ALT 42 U/L (7 - 56) ANION GAP 9.0 mmol/L (8.0 - 16.0) AGE 30 yrs NON- AA GFR >60 mL/min AFR AMER GFR >60 mL/min Male GFR Interprentation 20-49 yrs >60 mL/min Ftcwnx80-25 yrs >56 mL/min Normal 60- 69 yrs >49 mL/min Normal 70-79yrs>42 mL/min Normal 80 and above >35 mL/min Normal Female GFRInterpretation 20-39 yrs >60 mL/min Normal 40-49 yrs >58 mL/minNormal 50-59 yrs >51 mL/min Normal 60-69 yrs >45 mL/min Normal 4 Clinical Report - Physicians/Mid Levels [facility] Emergency Department [address] [place] [address] Phone #: ext- [phone] 02/12/2021 00:19 Patient: COREY CORTEZ Sex: F : 1990 Age: 30y 70-79 yrs >39 mL/min Normal 80 and above >32 mL/min Normal Lipase: (DEON: 02/12/2021 02:36) ( [facility] Final results Test Result Flag Units (Reference) LIPASE 33 U/L (13 - 60) Urinalysis: (DEON: 02/12/2021 02:38) ( [facility] [place] 02/12/2021 02:51) Final results Test Result Flag Units (Reference) URINALYSIS URINALYSIS SOURCE R COLOR yellow (NORMAL: Yello CLARITY clear (NORMAL: Clear SPEC GRAVITY 1.005 (1.001 - 1.030 pH 7 (5 - 9) GLUCOSE NORM (NORMAL: Negat BILIRUBIN NEG (NORMAL: Negat KETONE NEG (NORMAL: Negat PROTEIN NEG (NORMAL: Negat NITRITE NEG (NORMAL: Negat BLOOD NEG (NORMAL: Negat LEUK EST NEG (NORMAL: Negat UROBILINOGEN NOR (less than 1.0 MICROSCOPIC Not Indicate Lactic Acid: (DEON: 02/12/2021 02:36) ( [facility] [place] 02/12/2021 02:53) Final results Test Result Flag Units (Reference) LACTIC ACID 1.3 MMOL/L (0.2 - 2.2).PROGRESS AND PROCEDURESCourse of Care: 02:56 02/12/21. CBC, lactic, UA results nml; will do KUB instead of CTAP since pt walkedthe ER w/o issues and in no discomfort 03:15 02/12/21. CMP, lipase results in and nml 03:46 02/12/21. KUB shows stools in rt and lt colon, will give Mg Citrate and stool softener to go; pt understands d/c instructions and agrees; pt doing much better. Patient counseled in person regarding the patient's stable condition, test results, diagnosis and need for follow-up. Patient agrees with plan of care. Disposition: Condition: good and stable. Discharge decision based on the following: patient's condition is stable; patient's condition is improved; patient is ambulatory; patient is active; patient drinking fluids; patient eating; patient's pain is controlled; patient's exam is improved; no seriously abnormal test results; improving condition on multiple repeat evaluations; social support is good; transportation is available; follow-up is available; clinical impression is consistent with outpatient treatment. 5 Clinical Report - Physicians/Mid Levels [facility] Emergency Department [address] [place] [address] Phone #: ext- [phone] 02/12/2021 00:19 Patient: COREY CORTEZ Sex: F : 1990 Age: 30yCLINICAL IMPRESSION ConstipationINSTRUCTIONS Drink plenty of fluids. Avoid alcohol and NSAIDS. NSAIDS include aspirin, ibuprofen (Advil) and naproxen (Aleve). Avoid fatty, fried/greasy, lactose-containing (such as milk, cheese and ice cream), salty and spicy foods. No alcohol. Do not smoke. (PLEASE TAKE THE OTHER HALF OF THE MAG CITRATE IN 12-14 HRS). Warnings: Further evaluation is necessary. It is very important to follow up with a healthcare provider. GENERAL WARNINGS: Return or contact your physician immediately if your condition worsens or changes unexpectedly, if not improving as expected, or if other problems arise. SPECIFICALLY, return if you develop pain in the abdomen, pelvis, back or shoulder, fever, vomiting, the inability to keep fluids down, blood in vomitus, blood in diarrhea, fainting or lightheadedness. Your Current Medications: Your current home medications have been reviewed. CONTINUE TAKING THE FOLLOWING MEDICATIONS: Lasix Oral : 20 mg daily. Prescription Medications: Colace 100 mg capsule Take 1 capsule twice a day for 7 days -- Dispense 14 capsule. Refills: 2. Substitution permitted. Pharmacy - [id number] - [id number] ; [place] [address]. . Follow-up: Return to the emergency department as needed. Follow up with your healthcare provider in two days if not better. Call for an appointm ent. Reason for referral: evaluation and treatment. Summary of care provided to patient via paper. Understanding of the discharge instructions verbalized by patient. Expected course of illness, discharge instructions, activity level, diet, prescriptions x1, follow-up appointment and risks and benefits of treatment reviewed with patient and understanding verbalized. Agrees to plan of care.(Electronically signed by Nikhil Cameron M.D. 02/12/2021 04:36) 6Clinical Report - Physicians/Mid Levels [facility] Emergency Department [address] [place] [address] Phone #: ext- [phone] 02/12/2021 00:19 Patient: COREY PETERSON Sex: F : 1990 Age: 30y Name Value Range Interpretation Code Description Data Renee rce(s) Supporting Document(s) ID Date Data Source [id number] 02/12/2021 02:51:00 AM EDT [facility] Name Value Range Interpretation Code Description Data Renee rce(s) Supporting Document(s) [facility] COLOR yellow NORMAL: Yellow [facility] ospital CLARITY clear NORMAL: Clear [facility] spital Specific gravity of Urine by Test strip 1.005 1.001 - 1.030 [facility] pH 7 5 - 9 [facility] Glucose [Mass/volume] in Urine by Test strip NORM NORMAL: Negat [facility] Bilirubin.total [Presence] in Urine by Test strip NEG NORMAL: Negative [facility] Ketones [Presence] in Urine by Test strip NEG NORMAL: Negative [facility] Protein [Mass/volume] in Urine by Test strip NEG NORMAL: [facility] Nitrite [Presence] in Urine by Test strip NEG NORMAL: Negative [facility] BLOOD NEG NORMAL: Negative [facility] LEUK EST NEG NORMAL: Negative [facility] Urobilinogen [Mass/volume] in Urine by Test strip NOR less maura n 1.0 mg/dL [facility] MICROSCOPIC Not Indicate [facility] ospital ID Date Data Source [id number] 02/12/2021 02:48:00 AM EDT [facility] Name Value Range Interpretation Code Description Data [facility] Supporting Document(s) CBC W/AUTOMATED DIFF [facility] COMPLETE BLOOD COUNT Leukocytes [#/volume] in Blood by Automated count 5.6 10^3/uL 4.2 - 1 1.0 [facility] Erythrocytes [#/volume] in Blood by Automated count 4.38 10^6/uL 4. 20 - 5.40 [facility] Hemoglobin [Mass/volume] in Blood 14.3 g/dL 12.0 - 16.0 [facility] Hematocrit [Volume Fraction] of Blood by Automated count 43.2 % 3 7.0 - 47.0 [facility] Erythrocyte mean corpuscular volume [Entitic volume] by Auto mated count 98.6 fL 81.0 - 101 [facility] Erythrocyte mean corpuscular hemoglobin [Entitic mass] by Automated count 32.6 pg 27.0 - 34.0 [facility] Erythrocyte mean corpuscular hemoglobin concentration [Mass/volume] by Automated count 33.1 g/dL 31.0 - 36.0 [facility] Erythrocyte distribution width [Ratio] by Automated count 13.2 % 11.5 - 14.5 [facility] Platelets [#/volume] in Blood by Automated count 204 10^3/uL 150 - 45 0 [facility] Platelet mean volume [Entitic volume] in Blood by Automated count 10.3 fL 7.4 - 10.4 [facility] Neutrophils/100 leukocytes in Blood by Automated count 62.2 % 37. 0 - 80.0 [facility] Lymphocytes/100 leukocytes in Blood by Manual count 29.9 % 25.0 - 40.0 [facility] Monocytes/100 leukocytes in Blood by Automated count 5.7 % 3.0 - 8.0 [facility] Eosinophils/100 leukocytes in Blood by Automated count 1.3 % 0.0 - 7.0 [facility] Basophils/100 leukocytes in Blood by Automated count 0.7 % 0.0 - 2.5 [facility] %IG 0.2 % 0.0 - 0.0 H [facility] %NRBC 0.0 % 0.0 - 0.0 [facility] al Neutrophils [#/volume] in Blood by Automated count 3.47 10^3/uL 2.00 - 6.90 [facility] Lymphocytes [#/volume] in Blood by Automated count 1.67 10^3/uL 0.60 - 3.40 [facility] Monocytes [#/volume] in Blood by Automated count 0.32 10^3/uL 0.00 - 0.90 [facility] Eosinophils [#/volume] in Blood by Automated count 0.07 10^3/uL 0.00 - 0.70 [facility] Basophils [#/volume] in Blood by Automated count 0.04 10^3/uL 0.00 - 0.20 [facility] #IG 0.01 10^3/uL 0.00 - 0.10 [facility] osp[facility] #NRBC 0.00 10^3/uL 0.00 - 0.00 [facility] ospital MANUAL DIFF NOT INDICATED [facility] RBC MORPH NOT INDICATED [facility] Ho spital ID Date Data Source [id number] 02/12/2021 03:13:00 AM EDT [facility] Name Value Range Interpretation Code Description Data Renee rce(s) Supporting Document(s) Lipase [Enzymatic activity/volume] in Serum or Plasma 33 U/L 13 - 60 [facility] ID Date Data Source [id number] 02/12/2021 02:53:00 AM EDT [facility] Name Value Range Interpretation Code Description Data Renee rce(s) Supporting Document(s) Lactate [Moles/volume] in Serum or Plasma 1.3 MMOL/L 0.2 - 2.2 [facility] ID Date Data Source [id number] 02/12/2021 03:13:00 AM EDT [facility] Name Value Range Interpretation Code Description Data Renee rce(s) Supporting Document(s) COMPREHENSIVE METABOLIC PANEL [facility] COMPREHENSIVE METABOLIC PANEL Sodium [Moles/volume] in Serum or Plasma 142 mEq/L 134 - 153 [facility] Potassium [Moles/volume] in Serum or Plasma 3.9 mEq/L 3.6 - 5.0 [facility] Chloride [Moles/volume] in Serum or Plasma 107 mEq/L 98 - 107 [facility] Carbon dioxide, total [Moles/volume] in Serum or Plasma 26 MEQ/L 22 - 30 [facility] Glucose [Mass/volume] in Serum or Plasma 87 MG/DL 70 - 99 [facility] BUN 16 MG/DL 7 - 21 [facility] Creatinine [Mass/volume] in Serum or Plasma 0.7 MG/DL 0.7 - 1.5 [facility] BUN/CREAT 23 8 - 27 [facility] al Protein [Mass/volume] in Serum or Plasma 7.4 G/DL 6.3 - 8.2 [facility] Albumin [Mass/volume] in Serum or Plasma 4.5 G/DL 3.9 - 5.0 [facility] Globulin [Mass/volume] in Serum by calculation 2.9 GM/DL 2.4 - 3.2 [facility] A/G RATIO 1.6 0.8 - 2.0 [facility] Calcium [Mass/volume] in Serum or Plasma 9.7 MG/DL 8.4 - 10.2 [facility] Bilirubin.total [Mass/volume] in Serum or Plasma <0.7 MG/DL 0.2 - 1.3 [facility] Alkaline phosphatase [Enzymatic activity/volume] in Serum or Plasma 123 U/L 38 - 126 [facility] Aspartate aminotransferase [Enzymatic activity/volume] in Serum or Plasma 39 U/L 5 - 40 [facility] Alanine aminotransferase [Enzymatic activity/volume] in Seru m or Plasma 42 U/L 7 - 56 [facility] Anion gap 3 in Serum or Plasma 9.0 mmol/L 8.0 - 16.0 [facility] 30 [facility]60 [facility]/min [facility] AFR AMER GFR >60 mL/min [facility] spital Male GFR In terprentation 20-49 yrs >60 mL/min Normal 50-59 yrs >56 mL/min Normal 60-69 yrs >49 mL/min Normal 70-79yrs >42 mL/min Normal 80 and above >35 mL/min Normal Female GFR Interpretation 20-39 yrs >60 mL/min Normal 40-49 yrs >58 mL/min Normal 50-59 yrs >51 mL/min Normal 60-69 yrs >45 mL/min Normal 70-79 yrs >39 mL/min Normal 80 and above >32 mL/min Normal ID Date Data Source [id number] 01/07/2021 09:32:11 AM EDT [facility] Name Value Range Interpretation Code Description Data Renee rce(s) Supporting Document(s) EKG [facility] [id number]as7I3X4hSOeW6BhcBRes0goE8YgX7KsEFUiDMLBMA7OeBEx jb2 [file] [id number]4p1xrfe69mhY23s4/XF85bybwNmty1DJ62mLs/5gIot3597 Ty631Bi9Nir48ZGdRsq4mqv6T2MA6simoISUjQkYf6fwaInk/t131eTCn/8nZC9xpRy/7clD2mjrnDn+ +3p8ox5n3pllfl2iPAs8G6GD2W1762RkQFm8g9ArWz 836VeyYOv+yro19rOkP7fxZy29L5NKvOrvaaW414zN8sid14F0ytyi4K0x40UXofcI++0D892QvcMFhx 8l2PpVMpIRnuzvfpwr5vUu1phl38+o+7Gah98fRh+GaNjyamh+trzqan/KO18ll6faxodg/J7ETaf7pQ YOMjlEGTzso1L1b2ZieM+sYlFeM6r59WpxRR8t/srv QO9fv0jK/n40ehU4dxsw/fr9fl56kqu06/9cq20auzw6v/23uKnbajdKb339i89p9ilM+5394EVI90dH pV+DwiKs3R1ohsM0lQ9Sld23aWq2kC52d8n/WppadridQb9ePCh9ai46Yn8m/uyfvh27y9h8t09v4303 21062337983bt/dw6lMo2oLk30fluT08iGXuX4+Hb9 vr53n/vu/photograph developer++La8+05cM28sz0kTTb167Z/7DR4s5JoB+nDVWca6e0F2Ulg1mHQH62bw62wi7lfymgJ bsE8DMiyeYWkvyhwL8a34755Fd7rbtZN9eC/rn4S74vq/2ls5b2jy/d/BVn3i+9zl9YB/zog7Qs5/YIa /6qHi+57I+2f65IrM/TzxjvPPei/S20IlqW8/oE+Od GK/Og9qDE+Mp919s8/6x4volKX+DT435x81UsmVEy+/o9FdqcGF4iyShsHhphuu8pcwkQBEH5V+Snuff Container Inspector+/v [file] rYqsRLY3Di3TwpFqGZVqXQVWPr4Dw697NALmERDPQoc+MibhfPOrjMxsTFKUDitmUGYOPSZPA9J= ID Date Data Source [id number] 12/18/2020 04:22:00 PM EDT [facility] ([facility]) Name Value Range Interpretation Code Description Data Renee rce(s) Supporting Document(s) white blood count 5.1 10 4.0-10.0 White Blood Count [facility] ([facility]) red blood count 4.31 10 4.00-5.40 Red Blood Count [facility] ([facility]) hematocrit 44.2 % 36.0-47.0 Hematocrit [facility] ([facility]) hemoglobin 13.8 g/dL 12.0-15.5 Hemoglobin [facility] ([facility]) mean corpuscular volume 102.6 fL 80.0-96.0 Above high normal Mean Corpuscular Volume [facility] ([facility]) mean corpuscular hemoglobin 32.0 pg 27.0-33.0 Mean Cor puscular Hemoglobin [facility] ([facility]) mean corpuscular HGB conc 31.2 g/dL 32.0-36.5 Below low teodoro l Mean Corpuscular HGB Conc [facility] ([facility]) platelet count, automated 171 10 150-450 Platelet C ount, Automated [facility] ([facility]) red cell distribution width 12.5 % 11.5-14.5 Red Cell Distribution Width [facility] ([facility]) neutrophils % 61.6 % 36.0-66.0 Neutrophils % [facility] ( [facility]) lymph % 30.1 % 24.0-44.0 Lymph % [facility] ([facility]) eos % 1.2 % 0.0-3.0 Eos % [facility] ([facility]) mono % 6.1 % 2.0-8.0 [place] % [facility] ([facility]) baso % 0.6 % 0.0-1.0 Baso % [facility] ([facility]) immature granulocyte % 0.4 % 0-3.0 Immature Gran ulocyte % [facility] ([facility]) nucleated red blood cell % 0.0 % 0-0 Nucleated Red Blood Cell % [place] ([facility]) neutrophils # 3.2 10 1.5-8.5 Neutrophils # [facility] ( [facility]) eos # 0.1 10 0.0-0.5 Eos # [facility] ([facility]) mono # 0.3 10 0.0-0.8 [place] # [facility] ([facility]) lymph # 1.5 10 1.5-5.0 Lymph # [facility] ([facility]) baso # 0.0 10 0.0-0.2 Baso # [place] ([facility]) ID Date Data Source [id number] 12/18/2020 04:22:00 PM EDT [place] ([facility]) Name Value Range Interpretation Code Description Data Renee rce(s) Supporting Document(s) glucose, fasting 78 mg/dL 70-100 Glucose, Fasting AT [facility] ([facility]) creatinine for GFR 0.75 mg/dL 0.55-1.30 Creatinine for GF R [place] ([facility]) blood urea nitrogen 15 mg/dL 7-18 Blood Urea Nitro gen [facility] ([facility]) sodium level 142 mEq/L 136-145 Sodium Level [facility] ([facility]) glomerular filtration rate > 60.0 >60 [place] Filtration Rate [facility] ([facility]) carbon dioxide level 26 mEq/L 21-32 Carbon Dioxide Level [facility] ([facility]) chloride level 110 mEq/L 98-107 Above high normal Chloride Level [facility] ([facility]) potassium serum 4.1 mEq/L 3.5-5.1 Potassium Serum [facility] NA ([facility]) anion gap 6 mEq/L 8-16 Below low normal Anion Gap [facility] ( [facility]) calcium level 9.3 mg/dL 8.5-10.1 Calcium Level [facility] ( [facility]) ALT/SGPT 44 U/L 12-78 ALT/SGPT [facility] ([facility]) AST/SGOT 36 U/L 7-37 AST/SGOT [facility] ([facility]) bilirubin,total 0.4 mg/dL 0.2-1.0 Bilirubin,total ATHE NA ([facility]) alkaline phosphatase 103 U/L 45-117 Alkaline Phosph atase [facility] ([facility]) total protein 7.5 gm/dL 6.4-8.2 Total Protein [facility] ( [facility]) albumin/globulin ratio 1.2-2.2 Below low normal Albumin /globulin Ratio [facility] ([facility]) albumin 3.7 gm/dL 3.2-5.2 Albumin [facility] ([facility]) ID Date Data Source [id number] 12/18/2020 04:22:00 PM EDT [facility] ([facility]) Name Value Range Interpretation Code Description Data Renee rce(s) Supporting Document(s) triglycerides level 205 mg/dL <150 Above high normal Triglycer ides Level [facility] ([facility]) cholesterol level 139 mg/dL <200 Cholesterol Level [facility] ([facility]) HDL cholesterol 38 mg/dL >40 Below low normal HDL Cholestero l [facility] ([facility]) non-HDL-C 101 mg/dL Non-hdl-c [facility] ([facility]) Cholesterol in LDL [Mass/volume] in Serum or Plasma 60 mg/dL <1 00 LDL Cholesterol [facility] ([facility]) cholesterol risk ratio <5 Cholesterol R isk Ratio [facility] ([facility]) ID Date Data Source [id number] 12/18/2020 04:22:00 PM EDT [facility] ([facility]) Name Value Range Interpretation Code Description Data Renee rce(s) Supporting Document(s) total iron binding capacity 389 ug/dL 250-450 Total Ir on Binding Capacity [facility] ([facility]) iron (fe) 73 ug/dL 50-170 Iron (Fe) [facility] ([facility]) percent saturation 18.8 % 13.2-45.0 Percent Saturatio n [facility] ([facility]) ID Date Data Source [id number] 12/18/2020 04:22:00 PM [facility]T [facility] Name Value Range Interpretation Code Description Data Renee rce(s) Supporting Document(s) vitamin B12 level 354 pg/mL 247-911 Vitamin B12 Level [facility] ([facility]) ID Date Data Source [id number] 12/18/2020 04:22:00 PM EDT [facility] Name Value Range Interpretation Code Description Data Renee rce(s) Supporting Document(s) folate 8.6 NG/mL >5.4 Folate [place] ([facility]) ID Date Data Source [id number] 12/18/2020 04:22:00 PM EDT [facility]) Name Value Range Interpretation Code Description Data Renee rce(s) Supporting Document(s) total 25(oh) vitamin D 13.7 NG/mL 30.0-100.0 Below low normal T otal 25(Oh) Vitamin D [facility]) ID Date Data Source [id number] 12/18/2020 04:22:00 PM EDT [facility]) Name Value Range Interpretation Code Description Data Renee rce(s) Supporting Document(s) ferritin 21 NG/mL 8-252 [facility] ID Date Data Source [id number] 12/18/2020 04:22:00 PM EDT [facility]) Name Value Range Interpretation Code Description Data Renee rce(s) Supporting Document(s) cholesterol level 139 mg/dL <200 Cholesterol Level [facility] ([facility]) triglycerides level 205 mg/dL <150 Above high normal Triglycer ides Level [facility] ([facility]) Cholesterol in LDL [Mass/volume] in Serum or Plasma 60 mg/dL <1 00 LDL Cholesterol [facility] ([facility]) HDL cholesterol 38 mg/dL >40 Below low normal HDL Cholestero l [facility] ([facility]) non-HDL-C 101 mg/dL Non-hdl-c [facility] ([facility]) cholesterol risk ratio <5 Cholesterol R isk Ratio [facility] ([facility]) ID Date Data Source [id number] 12/18/2020 04:22:00 PM EDT [facility] ([facility]) Name Value Range Interpretation Code Description Data Renee rce(s) Supporting Document(s) white blood count 5.1 10 4.0-10.0 White Blood Count [facility] ([facility]) red blood count 4.31 10 4.00-5.40 Red Blood Count [facility] ([facility]) hemoglobin 13.8 g/dL 12.0-15.5 Hemoglobin [facility] ([facility]) hematocrit 44.2 % 36.0-47.0 Hematocrit [facility] ([facility]) mean corpuscular hemoglobin 32.0 pg 27.0-33.0 Mean Cor puscular Hemoglobin [facility] ([facility]) mean corpuscular volume 102.6 fL 80.0-96.0 Above high normal Mean Corpuscular Volume [facility] ([facility]) mean corpuscular HGB conc 31.2 g/dL 32.0-36.5 Below low teodoro l Mean Corpuscular HGB Conc [facility] ([facility]) red cell distribution width 12.5 % 11.5-14.5 Red Cell Distribution Width [facility] ([facility]) lymph % 30.1 % 24.0-44.0 Lymph % [facility] ([facility]) platelet count, automated 171 10 150-450 Platelet C ount, Automated [facility] ([facility]) neutrophils % 61.6 % 36.0-66.0 Neutrophils % [facility] ( [facility]) mono % 6.1 % 2.0-8.0 [place] % [facility] ([facility]) eos % 1.2 % 0.0-3.0 Eos % [facility] ([facility]) baso % 0.6 % 0.0-1.0 Baso % [facility] ([facility]) immature granulocyte % 0.4 % 0-3.0 Immature Gran ulocyte % [facility] ([facility]) neutrophils # 3.2 10 1.5-8.5 Neutrophils # [facility] ( [facility]) nucleated red blood cell % 0.0 % 0-0 Nucleated Red Blood Cell % [facility] ([facility]) lymph # 1.5 10 1.5-5.0 Lymph # [facility] ([facility]) mono # 0.3 10 0.0-0.8 [place] # [facility] ([facility]) eos # 0.1 10 0.0-0.5 Eos # [facility] ([facility]) baso # 0.0 10 0.0-0.2 Baso # [facility] ([facility]) ID Date Data Source [id number] 12/18/2020 04:22:00 PM EDT [place] ([facility]) Name Value Range Interpretation Code Description Data Renee rce(s) Supporting Document(s) glucose, fasting 78 mg/dL 70-100 Glucose, Fasting AT [facility]) blood urea nitrogen 15 mg/dL 7-18 Blood Urea Nitro gen [facility] ([facility]) creatinine for GFR 0.75 mg/dL 0.55-1.30 Creatinine for GF R [facility] ([facility]) sodium level 142 mEq/L 136-145 Sodium Level [facility] ([facility]) glomerular filtration rate > 60.0 >60 [place] r Filtration Rate [facility] ([facility]) potassium serum 4.1 mEq/L 3.5-5.1 Potassium Serum [facility] NA ([facility]) chloride level 110 mEq/L 98-107 Above high normal Chloride Level [facility] ([facility]) carbon dioxide level 26 mEq/L 21-32 Carbon Dioxide Level [facility] ([facility]) anion gap 6 mEq/L 8-16 Below low normal Anion Gap [facility] ( [facility]) AST/SGOT 36 U/L 7-37 AST/SGOT [facility] ([facility]) calcium level 9.3 mg/dL 8.5-10.1 Calcium Level [facility] ( [facility]) alkaline phosphatase 103 U/L 45-117 Alkaline Phosph atase [facility] ([facility]) ALT/SGPT 44 U/L 12-78 ALT/SGPT [facility] ([facility]) bilirubin,total 0.4 mg/dL 0.2-1.0 Bilirubin,total [facility] NA ([facility]) total protein 7.5 gm/dL 6.4-8.2 Total Protein [facility] ( [facility]) albumin 3.7 gm/dL 3.2-5.2 Albumin [facility] ([facility]) albumin/globulin ratio 1.2-2.2 Below low normal Albumin /globulin Ratio [facility] ([facility]) ID Date Data Source [id number] 12/18/2020 04:22:00 PM EDT [facility] ([facility]) Name Value Range Interpretation Code Description Data Renee rce(s) Supporting Document(s) iron (fe) 73 ug/dL 50-170 Iron (Fe) [facility] ([facility]) total iron binding capacity 389 ug/dL 250-450 Total Ir on Binding Capacity [facility] ([facility]) percent saturation 18.8 % 13.2-45.0 Percent Saturatio n [facility] ([facility]) ID Date Data Source [id number] 12/18/2020 04:22:00 PM EDT [facility] ([facility]) Name Value Range Interpretation Code Description Data Renee rce(s) Supporting Document(s) vitamin B12 level 354 pg/mL 247-911 Vitamin B12 Level [facility] ([facility]) ID Date Data Source [id number] 12/18/2020 04:22:00 PM EDT [facility]) Name Value Range Interpretation Code Description Data Renee rce(s) Supporting Document(s) folate 8.6 NG/mL >5.4 Folate [facility] ([facility]) ID Date Data Source [id number] 12/18/2020 04:22:00 PM EDT [facility] ([facility]) Name Value Range Interpretation Code Description Data Renee rce(s) Supporting Document(s) total 25(oh) vitamin D 13.7 NG/mL 30.0-100.0 Below low normal T otal 25(Oh) Vitamin D [facility] ([facility]) ID Date Data Source [id number] 12/18/2020 04:22:00 PM EDT [facility] Name Value Range Interpretation Code Description Data Renee rce(s) Supporting Document(s) ferritin 21 NG/mL 8-252 Ferritin [facility] ([facility]) ID Date Data Source [id number] 12/18/2020 04:22:00 PM EDT [facility]) Name Value Range Interpretation Code Description Data Renee rce(s) Supporting Document(s) vitamin B1 level whole blood 104.4 nmol/L 66.5-200.0 Vitamin B1 Level Whole Blood [facility] ([facility]) ID Date Data Source [id number] 12/18/2020 04:22:00 PM EDT [facility] ([facility]) Name Value Range Interpretation Code Description Data Renee rce(s) Supporting Document(s) white blood count 5.1 10 4.0-10.0 White Blood Count [facility] ([facility]) red blood count 4.31 10 4.00-5.40 Red Blood Count [facility] ([facility]) hemoglobin 13.8 g/dL 12.0-15.5 Hemoglobin [facility] ([facility]) mean corpuscular volume 102.6 fL 80.0-96.0 Above high normal Mean Corpuscular Volume [facility] ([facility]) hematocrit 44.2 % 36.0-47.0 Hematocrit [facility] ([facility]) mean corpuscular HGB conc 31.2 g/dL 32.0-36.5 Below low teodoro l Mean Corpuscular HGB Conc [facility] ([facility]) mean corpuscular hemoglobin 32.0 pg 27.0-33.0 Mean Cor puscular Hemoglobin [facility] ([facility]) red cell distribution width 12.5 % 11.5-14.5 Red Cell Distribution Width [facility] ([facility]) platelet count, automated 171 10 150-450 Platelet C ount, Automated [facility] ([facility]) lymph % 30.1 % 24.0-44.0 Lymph % [place] ([facility]) neutrophils % 61.6 % 36.0-66.0 Neutrophils % [facility] ( [facility]) eos % 1.2 % 0.0-3.0 Eos % [facility] ([facility]) mono % 6.1 % 2.0-8.0 [place] % [facility] ([facility]) immature granulocyte % 0.4 % 0-3.0 Immature Gran ulocyte % [facility] ([facility]) baso % 0.6 % 0.0-1.0 Baso % [place] ([facility]) neutrophils # 3.2 10 1.5-8.5 Neutrophils # [facility] ( [facility]) nucleated red blood cell % 0.0 % 0-0 Nucleated Red Blood Cell % [facility] ([facility]) lymph # 1.5 10 1.5-5.0 Lymph # [facility] ([facility]) mono # 0.3 10 0.0-0.8 [place] # [facility] ([facility]) eos # 0.1 10 0.0-0.5 Eos # [facility] ([facility]) baso # 0.0 10 0.0-0.2 Baso # [facility] ([facility]) ID Date Data Source [id number] 12/18/2020 04:22:00 PM EDT [facility] ([facility]) Name Value Range Interpretation Code Description Data Renee rce(s) Supporting Document(s) creatinine for GFR 0.75 mg/dL 0.55-1.30 Creatinine for GF R [facility] ([facility]) blood urea nitrogen 15 mg/dL 7-18 Blood Urea Nitro gen [facility] ([facility]) glucose, fasting 78 mg/dL 70-100 Glucose, Fasting AT [facility] ([facility]) sodium level 142 mEq/L 136-145 Sodium Level [facility] ([facility]) glomerular filtration rate > 60.0 >60 [place] r Filtration Rate [facility] ([facility]) potassium serum 4.1 mEq/L 3.5-5.1 Potassium Serum [facility] NA ([facility]) chloride level 110 mEq/L 98-107 Above high normal Chloride Level [facility] ([facility]) carbon dioxide level 26 mEq/L 21-32 Carbon Dioxide Level [facility] ([facility]) anion gap 6 mEq/L 8-16 Below low normal Anion Gap [facility] ( [facility]) calcium level 9.3 mg/dL 8.5-10.1 Calcium Level [facility] ( [facility]) AST/SGOT 36 U/L 7-37 AST/SGOT [facility] ([facility]) ALT/SGPT 44 U/L 12-78 ALT/SGPT [facility] ([facility]) alkaline phosphatase 103 U/L 45-117 Alkaline Phosph atase [facility] ([facility]) total protein 7.5 gm/dL 6.4-8.2 Total Protein [facility] ( [facility]) bilirubin,total 0.4 mg/dL 0.2-1.0 Bilirubin,total [facility] ([facility]) albumin/globulin ratio 1.2-2.2 Below low normal Albumin /globulin Ratio [facility] ([facility]) albumin 3.7 gm/dL 3.2-5.2 Albumin [facility] ([facility]) ID Date Data Source [id number] 12/18/2020 04:22:00 PM EDT [facility] ([facility]) Name Value Range Interpretation Code Description Data Renee rce(s) Supporting Document(s) triglycerides level 205 mg/dL <150 Above high normal Triglycer ides Level [facility] ([facility]) cholesterol level 139 mg/dL <200 Cholesterol Level [facility] ([facility]) HDL cholesterol 38 mg/dL >40 Below low normal HDL Cholestero l [facility] ([facility]) Cholesterol in LDL [Mass/volume] in Serum or Plasma 60 mg/dL <1 00 LDL Cholesterol [facility] ([facility]) non-HDL-C 101 mg/dL Non-hdl-c [facility] ([facility]) cholesterol risk ratio <5 Cholesterol R isk Ratio [facility] ([facility]) ID Date Data Source [id number] 12/18/2020 04:22:00 PM EDT [facility] ([facility]) Name Value Range Interpretation Code Description Data Renee rce(s) Supporting Document(s) total iron binding capacity 389 ug/dL 250-450 Total Ir on Binding Capacity [facility] ([facility]) iron (fe) 73 ug/dL 50-170 Iron (Fe) [facility] ([facility]) percent saturation 18.8 % 13.2-45.0 Percent Saturatio n [facility] ([facility]) ID Date Data Source [id number] 12/18/2020 04:22:00 PM EDT [facility] ([facility]) Name Value Range Interpretation Code Description Data Renee rce(s) Supporting Document(s) vitamin B12 level 354 pg/mL 247-911 Vitamin B12 Level [facility] ([facility]) ID Date Data Source [id number] 12/18/2020 04:22:00 PM EDT [facility] ([facility]) Name Value Range Interpretation Code Description Data Renee rce(s) Supporting Document(s) folate 8.6 NG/mL >5.4 Folate [facility] ([facility]) ID Date Data Source [id number] 12/18/2020 04:22:00 PM EDT [place] ([facility]) Name Value Range Interpretation Code Description Data Renee rce(s) Supporting Document(s) total 25(oh) vitamin D 13.7 NG/mL 30.0-100.0 Below low normal T otal 25(Oh) Vitamin D [place] ([facility]) ID Date Data Source [id number] 12/18/2020 04:22:00 PM EDT [place] ([facility]) Name Value Range Interpretation Code Description Data Renee rce(s) Supporting Document(s) ferritin 21 NG/mL 8-252 Ferritin [place] ([facility]) ID Date Data Source [id number] 12/18/2020 04:22:00 PM EDT [facility]) Name Value Range Interpretation Code Description Data Renee rce(s) Supporting Document(s) vitamin B1 level whole blood 104.4 nmol/L 66.5-200.0 Vitamin B1 Level Whole Blood [place] ([facility]) ID Date Data Source [id number] 12/14/2020 05:14:31 PM EDT [facility] Name Value Range Interpretation Code Description Data Renee rce(s) Supporting Document(s) Progress Note [facility] [id number] [facility] [file] lion tamer+[id number] [file] [id number]== ID Date Data Source [id number] 11/27/2020 12:43:00 AM EDT [place] ([facility]) Name Value Range Interpretation Code Description Data Renee rce(s) Supporting Document(s) color, urine rfx straw yellow Color, Urine Rfx AT [facility] ([facility]) appearance, urine rfx clear clear Appearance, Ur ine Rfx [place] ([facility]) protein, urine auto rfx negative negative Protein, Uri ne Auto Rfx [facility] ([facility]) specific gravity ur auto rfx 1.002-1.035 Specif ic [place] Ur Auto Rfx [place] ([facility]) pH,urine rfx 5.0 units 5.0-9.0 pH,urine Rfx [facility] glucose, urine (UA) auto rfx negative negative Glucose , Urine (UA) Auto Rfx [facility] ([facility]) ketone, urine auto rfx negative negative Ketone, Urine Auto Rfx [place] ([facility]) nitrite, urine auto rfx negative negative Nitrite, Uri ne Auto Rfx [place] ([facility]) urobilinogen, urine auto rfx 0.2 mg/dL 0.0-2.0 Urobili nogen, Urine Auto Rfx [place] ([facility]) bilirubin, urine auto rfx negative negative Bilirubin, Urine Auto Rfx [facility] ([facility]) WBC, urine auto rfx 0 /hpf 0-3 WBC, Urine Auto Rfx [place] ([facility]) blood, urine blood rfx negative negative Blood, Urine Blood Rfx [place] ([facility]) leukocyte esterase ur auto rfx negative negative Leukocyte Esterase Ur Auto Rfx [place] ([facility]) bacteria, urine auto rfx negative negative Bacteria, U rine Auto Rfx [place] ([facility]) RBC, urine auto rfx 0 /hpf 0-3 RBC, Urine Auto Rfx [place] ([facility]) mucus, urine rfx small negative Mucus, Urine Rfx AT [facility] ([facility]) squam epithelial cell ur aurfx 1 /hpf 0-6 Squam Epithelial Cell Ur Aurfx [place] ([facility]) hyaline cast, urine auto rfx 0 /lpf 0-1 Hyaline Cast, Urine Auto Rfx [facility]) ID Date Data Source [id number] 11/27/2020 12:43:00 AM EDT [place] ([facility]) Name Value Range Interpretation Code Description Data Renee rce(s) Supporting Document(s) color, urine rfx straw yellow Color, Urine Rfx AT [facility] ([facility]) appearance, urine rfx clear clear Appearance, Ur ine Rfx [place] ([facility]) specific gravity ur auto rfx 1.002-1.035 Specif ic [place] Ur Auto Rfx [place] ([facility]) pH,urine rfx 5.0 units 5.0-9.0 pH,urine Rfx [place] [facility] glucose, urine (UA) auto rfx negative negative Glucose , Urine (UA) Auto Rfx [place] ([facility]) protein, urine auto rfx negative negative Protein, Uri ne Auto Rfx [place] ([facility]) ketone, urine auto rfx negative negative Ketone, Urine Auto Rfx [place] ([facility]) urobilinogen, urine auto rfx 0.2 mg/dL 0.0-2.0 Urobili nogen, Urine Auto Rfx [place] ([facility]) bilirubin, urine auto rfx negative negative Bilirubin, Urine Auto Rfx [place] ([facility]) nitrite, urine auto rfx negative negative Nitrite, Uri ne Auto Rfx [place] ([facility]) leukocyte esterase ur auto rfx negative negative Leukocyte Esterase Ur Auto Rfx [place] ([facility]) blood, urine blood rfx negative negative Blood, Urine Blood Rfx [place] ([facility]) WBC, urine auto rfx 0 /hpf 0-3 WBC, Urine Auto Rfx [place] ([facility]) bacteria, urine auto rfx negative negative Bacteria, U rine Auto Rfx [place] ([facility]) RBC, urine auto rfx 0 /hpf 0-3 RBC, Urine Auto Rfx [place] ([facility]) squam epithelial cell ur aurfx 1 /hpf 0-6 Squam Epithelial Cell Ur Aurfx [place] ([facility]) mucus, urine rfx small negative Mucus, Urine Rfx AT [facility] ([facility]) hyaline cast, urine auto rfx 0 /lpf 0-1 Hyaline Cast, Urine Auto Rfx [place] ([facility]) ID Date Data Source [id number] 11/27/2020 12:43:00 AM EDT [place] ([facility]) Name Value Range Interpretation Code Description Data Renee rce(s) Supporting Document(s) appearance, urine rfx clear clear Appearance, Ur ine Rfx [place] ([facility]) color, urine rfx straw yellow Color, Urine Rfx AT [facility] ([facility]) specific gravity ur auto rfx 1.002-1.035 Specif ic [place] Ur Auto Rfx [place] ([facility]) pH,urine rfx 5.0 units 5.0-9.0 pH,urine Rfx [place] ([facility]) glucose, urine (UA) auto rfx negative negative Glucose , Urine (UA) Auto Rfx [place] ([facility]) ketone, urine auto rfx negative negative Ketone, Urine Auto Rfx [place] ([facility]) protein, urine auto rfx negative negative Protein, Uri ne Auto Rfx [place] ([facility]) urobilinogen, urine auto rfx 0.2 mg/dL 0.0-2.0 Urobili nogen, Urine Auto Rfx [place] ([facility]) bilirubin, urine auto rfx negative negative Bilirubin, Urine Auto Rfx [place] ([facility]) nitrite, urine auto rfx negative negative Nitrite, Uri ne Auto Rfx [place] ([facility]) leukocyte esterase ur auto rfx negative negative Leukocyte Esterase Ur Auto Rfx [place] ([facility]) WBC, urine auto rfx 0 /hpf 0-3 WBC, Urine Auto Rfx [place] ([facility]) blood, urine blood rfx negative negative Blood, Urine Blood Rfx [place] ([facility]) RBC, urine auto rfx 0 /hpf 0-3 RBC, Urine Auto Rfx [place] ([facility]) bacteria, urine auto rfx negative negative Bacteria, U rine Auto Rfx [place] ([facility]) squam epithelial cell ur aurfx 1 /hpf 0-6 Squam Epithelial Cell Ur Aurfx [place] ([facility]) hyaline cast, urine auto rfx 0 /lpf 0-1 Hyaline Cast, Urine Auto Rfx [place] ([facility]) mucus, urine rfx small negative Mucus, Urine Rfx AT [facility] ([facility]) ID Date Data Source [id number] 11/23/2020 03:55:00 AM EDT [facility] Name Value Range Interpretation Code Description Data Renee rce(s) Supporting Document(s) COVID-19 RT-PCR NASAL SWAB Not Detected Not Detected [facility] A not detected (negative) test result fo r this test means that SARS-CoV-2 RNA was not present in the specimen above the limit ofdetection. Laboratory test results should always be considered in thecontext of clinical observations and epidemiological data in making afinal diagnosis and patient management decisions. Results will bereported to government agencies as required.This test has received Emergency Use Authorization (EUA). We will continue to follow federal and state requirements for COVID-19 reporting. This test has been authorized only for the detection of RNAfrom SARS-CoV-2 virus and diagnosis of SARS-CoV-2 virus infection, notfor any other viruses or pathogens. This test is only authorized for the duration of the declaration that circumstances exist justifying the authorization of the emergency use of in vitro diagnostic tests for detection of SARS-CoV-2 virus and/or diagnosis of SARS-CoV-2 virusinfection under section 564(b)(1) of the Act, 21 U.S.C. section 360bbb-3(b)(1), unless the authorization is terminated or revoked sooner. We will continue to follow federal and state requirements for both notification of results and any confirmatory testing that is required by another agency. This test was developed and its performance characteristics determined by [employer] and verified at [facility]. It has not been cleared or approved by the U.S. Food and Drug Administration for diagnostic use. This test has been authorized by FDA under an EUA for use by authorized laboratories. Results should be used in conjunction with clinical findings, and should not form the sole basis for a diagnosis or treatment decision. Methods: SARS-CoV-2 Multiplex RT-PCR Assay ID Date Data Source [id number] 11/20/2020 07:45:00 PM EDT [facility] Name Value Range Interpretation Code Description Data Renee rce(s) Supporting Document(s) SARS-CoV-2 (COVID-19) N gene [Presence] in Respiratory specimen by HUNG with probe detection NEGATIVE [facility] This lab was ordered by Neris Beverly and reported by [facility]. ID Date Data Source [id number] 11/20/2020 12:00:00 AM EDT [facility] Name Value Range Interpretation Code Description Data Renee rce(s) Supporting Document(s) Carestart Rapid COVID Antigen Test Negative [facility] This lab was reported by Neris villasenor. ID Date Data Source [id number] 11/17/2020 09:10:00 PM EDT [place] ([facility]) Name Value Range Interpretation Code Description Data Renee rce(s) Supporting Document(s) red blood count 4.19 10 4.00-5.40 [facility] white blood count 6.3 10 4.0-10.0 White Blood Count [facility]) hemoglobin 13.4 g/dL 12.0-15.5 Hemoglobin [facility]) hematocrit 41.7 % 36.0-47.0 Hematocrit [place] ([facility]) mean corpuscular volume 99.5 fL 80.0-96.0 Above high normal Mean Corpuscular Volume [place] ([facility]) mean corpuscular HGB conc 32.1 g/dL 32.0-36.5 Mean Corpu scular HGB Conc [place] ([facility]) mean corpuscular hemoglobin 32.0 pg 27.0-33.0 Mean Cor puscular Hemoglobin [place] ([facility]) platelet count, automated 199 10 150-450 Platelet C ount, Automated [facility]) neutrophils % 61.9 % 36.0-66.0 Neutrophils % [place] ( [facility]) red cell distribution width 12.9 % 11.5-14.5 Red Cell Distribution Width [facility]) eos % 1.3 % 0.0-3.0 Eos % [place] ([facility]) lymph % 28.1 % 24.0-44.0 Lymph % [place] ([facility]) mono % 7.7 % 2.0-8.0 [place] % [place] ([facility]) immature granulocyte % 0.5 % 0-3.0 Immature Gran ulocyte % [place] ([facility]) baso % 0.5 % 0.0-1.0 Baso % [place] ([facility]) neutrophils # 3.9 10 1.5-8.5 Neutrophils # [place] ( [facility]) nucleated red blood cell % 0.0 % 0-0 Nucleated Red Blood Cell % [place] ([facility]) lymph # 1.8 10 1.5-5.0 Lymph # [place] ([facility]) baso # 0.0 10 0.0-0.2 Baso # [place] ([facility]) eos # 0.1 10 0.0-0.5 Eos # [place] ([facility]) mono # 0.5 10 0.0-0.8 [place] # [place] ([facility]) ID Date Data Source [id number] 11/17/2020 09:10:00 PM EDT [place] ([facility]) Name Value Range Interpretation Code Description Data Renee rce(s) Supporting Document(s) glucose, fasting 97 mg/dL 70-100 Glucose, Fasting AT [facility]) glomerular filtration rate > 60.0 >60 [place] r Filtration Rate [place] ([facility]) blood urea nitrogen 12 mg/dL 7-18 Blood Urea Nitro gen [place] ([facility]) creatinine for GFR 0.78 mg/dL 0.55-1.30 Creatinine for GF R [place] ([facility]) chloride level 110 mEq/L 98-107 Above high normal Chloride Level [place] ([facility]) potassium serum 4.2 mEq/L 3.5-5.1 Potassium Serum [place] ([facility]) sodium level 142 mEq/L 136-145 Sodium Level [place] ([facility]) carbon dioxide level 28 mEq/L 21-32 Carbon Dioxide Level [place] ([facility]) anion gap 4 mEq/L 8-16 Below low normal Anion Gap [place] ( [facility]) calcium level 8.9 mg/dL 8.5-10.1 Calcium Level [place] ( [facility]) ID Date Data Source [id number] 11/17/2020 09:10:00 PM EDT [place] ([facility]) Name Value Range Interpretation Code Description Data Renee rce(s) Supporting Document(s) magnesium level 2.0 mg/dL 1.8-2.4 Magnesium Level [facility] ([facility]) ID Date Data Source [id number] 11/17/2020 09:10:00 PM EDT [place] ([facility]) Name Value Range Interpretation Code Description Data Renee rce(s) Supporting Document(s) red blood count 4.19 10 4.00-5.40 Red Blood Count [facility] ([facility]) white blood count 6.3 10 4.0-10.0 White Blood Count [place] ([facility]) hematocrit 41.7 % 36.0-47.0 Hematocrit [place] ([facility]) hemoglobin 13.4 g/dL 12.0-15.5 Hemoglobin [place] ([facility]) mean corpuscular volume 99.5 fL 80.0-96.0 Above high normal Mean Corpuscular Volume [place] ([facility]) mean corpuscular hemoglobin 32.0 pg 27.0-33.0 Mean Cor puscular Hemoglobin [place] ([facility]) red cell distribution width 12.9 % 11.5-14.5 Red Cell Distribution Width [place] ([facility]) mean corpuscular HGB conc 32.1 g/dL 32.0-36.5 Mean Corpu scular HGB Conc [place] ([facility]) platelet count, automated 199 10 150-450 Platelet C ount, Automated [place] ([facility]) neutrophils % 61.9 % 36.0-66.0 Neutrophils % [place] ( [facility]) mono % 7.7 % 2.0-8.0 [place] % [place] ([facility]) lymph % 28.1 % 24.0-44.0 Lymph % [place] ([facility]) baso % 0.5 % 0.0-1.0 Baso % [place] ([facility]) immature granulocyte % 0.5 % 0-3.0 Immature Gran ulocyte % [place] ([facility]) eos % 1.3 % 0.0-3.0 Eos % [place] ([facility]) nucleated red blood cell % 0.0 % 0-0 Nucleated Red Blood Cell % [place] ([facility]) lymph # 1.8 10 1.5-5.0 Lymph # [place] ([facility]) neutrophils # 3.9 10 1.5-8.5 Neutrophils # [place] ( [facility]) eos # 0.1 10 0.0-0.5 Eos # [place] ([facility]) baso # 0.0 10 0.0-0.2 Baso # [place] ([facility]) mono # 0.5 10 0.0-0.8 [place] # [place] ([facility]) ID Date Data Source [id number] 11/17/2020 09:10:00 PM EDT [place] ([facility]) Name Value Range Interpretation Code Description Data Renee rce(s) Supporting Document(s) glucose, fasting 97 mg/dL 70-100 Glucose, Fasting AT [facility]) blood urea nitrogen 12 mg/dL 7-18 Blood Urea Nitro gen [place] ([facility]) creatinine for GFR 0.78 mg/dL 0.55-1.30 Creatinine for GF R [place] ([facility]) glomerular filtration rate > 60.0 >60 [place] r Filtration Rate [place] ([facility]) sodium level 142 mEq/L 136-145 Sodium Level [place] ([facility]) potassium serum 4.2 mEq/L 3.5-5.1 Potassium Serum [place] ([facility]) carbon dioxide level 28 mEq/L 21-32 Carbon Dioxide Level [place] ([facility]) anion gap 4 mEq/L 8-16 Below low normal Anion Gap [place] ( [facility]) chloride level 110 mEq/L 98-107 Above high normal Chloride Level [place] ([facility]) calcium level 8.9 mg/dL 8.5-10.1 Calcium Level [place] ( [facility]) ID Date Data Source [id number] 11/17/2020 09:10:00 PM EDT [place] ([facility]) Name Value Range Interpretation Code Description Data Renee rce(s) Supporting Document(s) magnesium level 2.0 mg/dL 1.8-2.4 Magnesium Level [facility] ([facility]) ID Date Data Source [id number] 11/17/2020 09:10:00 PM EDT [place] ([facility]) Name Value Range Interpretation Code Description Data Renee rce(s) Supporting Document(s) white blood count 6.3 10 4.0-10.0 White Blood Count [place] ([facility]) hemoglobin 13.4 g/dL 12.0-15.5 Hemoglobin [place] ([facility]) red blood count 4.19 10 4.00-5.40 Red Blood Count [facility] ([facility]) mean corpuscular volume 99.5 fL 80.0-96.0 Above high normal Mean Corpuscular Volume [place] ([facility]) hematocrit 41.7 % 36.0-47.0 Hematocrit [place] ([facility]) mean corpuscular hemoglobin 32.0 pg 27.0-33.0 Mean Cor puscular Hemoglobin [place] ([facility]) mean corpuscular HGB conc 32.1 g/dL 32.0-36.5 Mean Corpu scular HGB Conc [place] ([facility]) red cell distribution width 12.9 % 11.5-14.5 Red Cell Distribution Width [place] ([facility]) neutrophils % 61.9 % 36.0-66.0 Neutrophils % [place] ( [facility]) platelet count, automated 199 10 150-450 Platelet C ount, Automated [place] ([facility]) mono % 7.7 % 2.0-8.0 [place] % [place] ([facility]) lymph % 28.1 % 24.0-44.0 Lymph % [place] ([facility]) eos % 1.3 % 0.0-3.0 Eos % [place] ([facility]) immature granulocyte % 0.5 % 0-3.0 Immature Gran ulocyte % [place] ([facility]) baso % 0.5 % 0.0-1.0 Baso % [place] ([facility]) nucleated red blood cell % 0.0 % 0-0 Nucleated Red Blood Cell % [place] ([facility]) lymph # 1.8 10 1.5-5.0 Lymph # [place] ([facility]) neutrophils # 3.9 10 1.5-8.5 Neutrophils # [place] ( [facility]) mono # 0.5 10 0.0-0.8 [place] # [place] ([facility]) baso # 0.0 10 0.0-0.2 Baso # [place] ([facility]) eos # 0.1 10 0.0-0.5 Eos # [place] ([facility]) ID Date Data Source [id number] 11/17/2020 09:10:00 PM EDT [place] ([facility]) Name Value Range Interpretation Code Description Data Renee rce(s) Supporting Document(s) glucose, fasting 97 mg/dL 70-100 Glucose, Fasting AT [facility] ([facility]) blood urea nitrogen 12 mg/dL 7-18 Blood Urea Nitro gen [place] ([facility]) creatinine for GFR 0.78 mg/dL 0.55-1.30 Creatinine for GF R [place] ([facility]) sodium level 142 mEq/L 136-145 Sodium Level [place] ([facility]) potassium serum 4.2 mEq/L 3.5-5.1 Potassium Serum [facility] [place] ([facility]) glomerular filtration rate > 60.0 >60 [place] r Filtration Rate [place] ([facility]) chloride level 110 mEq/L 98-107 Above high normal Chloride Level [place] ([facility]) carbon dioxide level 28 mEq/L 21-32 Carbon Dioxide Level [place] ([facility]) anion gap 4 mEq/L 8-16 Below low normal Anion Gap [place] ( [facility]) calcium level 8.9 mg/dL 8.5-10.1 Calcium Level [place] ( [facility]) ID Date Data Source [id number] 11/17/2020 09:10:00 PM EDT [place] ([facility]) Name Value Range Interpretation Code Description Data Renee rce(s) Supporting Document(s) magnesium level 2.0 mg/dL 1.8-2.4 Magnesium Level [facility] ([facility]) ID Date Data Source [id number] 11/17/2020 09:10:00 PM EDT [place] ([facility]) Name Value Range Interpretation Code Description Data Renee rce(s) Supporting Document(s) white blood count 6.3 10 4.0-10.0 White Blood Count [place] ([facility]) hemoglobin 13.4 g/dL 12.0-15.5 Hemoglobin [place] ([facility]) red blood count 4.19 10 4.00-5.40 Red Blood Count [facility] ([facility]) hematocrit 41.7 % 36.0-47.0 Hematocrit [place] ([facility]) mean corpuscular hemoglobin 32.0 pg 27.0-33.0 Mean Cor puscular Hemoglobin [place] ([facility]) mean corpuscular volume 99.5 fL 80.0-96.0 Above high normal Mean Corpuscular Volume [place] ([facility]) mean corpuscular HGB conc 32.1 g/dL 32.0-36.5 Mean Corpu scular HGB Conc [place] ([facility]) platelet count, automated 199 10 150-450 Platelet C ount, Automated [place] ([facility]) red cell distribution width 12.9 % 11.5-14.5 Red Cell Distribution Width [place] ([facility]) neutrophils % 61.9 % 36.0-66.0 Neutrophils % [place] ( [facility]) eos % 1.3 % 0.0-3.0 Eos % [place] ([facility]) mono % 7.7 % 2.0-8.0 [place] % [place] ([facility]) lymph % 28.1 % 24.0-44.0 Lymph % [place] ([facility]) baso % 0.5 % 0.0-1.0 Baso % [place] ([facility]) immature granulocyte % 0.5 % 0-3.0 Immature Gran ulocyte % [place] ([facility]) neutrophils # 3.9 10 1.5-8.5 Neutrophils # [place] ( [facility]) lymph # 1.8 10 1.5-5.0 Lymph # [place] ([facility]) nucleated red blood cell % 0.0 % 0-0 Nucleated Red Blood Cell % [place] ([facility]) mono # 0.5 10 0.0-0.8 [place] # [place] ([facility]) baso # 0.0 10 0.0-0.2 Baso # [place] ([facility]) eos # 0.1 10 0.0-0.5 Eos # [place] ([facility]) ID Date Data Source [id number] 11/17/2020 09:10:00 PM EDT [place] ([facility]) Name Value Range Interpretation Code Description Data Renee rce(s) Supporting Document(s) glucose, fasting 97 mg/dL 70-100 Glucose, Fasting AT [facility] ([facility]) sodium level 142 mEq/L 136-145 Sodium Level [place] ([facility]) blood urea nitrogen 12 mg/dL 7-18 Blood Urea Nitro gen [place] ([facility]) glomerular filtration rate > 60.0 >60 [place] r Filtration Rate [place] ([facility]) creatinine for GFR 0.78 mg/dL 0.55-1.30 Creatinine for GF R [place] ([facility]) chloride level 110 mEq/L 98-107 Above high normal Chloride Level [place] ([facility]) carbon dioxide level 28 mEq/L 21-32 Carbon Dioxide Level [place] ([facility]) potassium serum 4.2 mEq/L 3.5-5.1 Potassium Serum [facility] ([facility]) anion gap 4 mEq/L 8-16 Below low normal Anion Gap [place] ( [facility]) calcium level 8.9 mg/dL 8.5-10.1 Calcium Level [place] ( [facility]) ID Date Data Source [id number] 11/17/2020 09:10:00 PM EDT [facility]) Name Value Range Interpretation Code Description Data Renee rce(s) Supporting Document(s) magnesium level 2.0 mg/dL 1.8-2.4 [facility] ID Date Data Source [id number] 10/23/2020 09:12:28 AM EDT [facility] Name Value Range Interpretation Code Description Data Renee rce(s) Supporting Document(s) Progress Note [facility] YPNEYb4yIpPVJiOn54/EUPciTBVay9ElICekJOi5JEozTUEpK0ObRCB3cI1lZEM0OUsJWnOiHcTuVOG8 lbm OsSzlFByDcXQJxIoiLOvRkOMsbQxnrsWThTP9SwVQ0LLFzC96eWFLyIYVcB8EeBEU5TjS+Ee3DGNXuvO LhIY5INbfO4A7wJyvUWn9+7x3Jpf93H2ATAvkz7kuhHJqRKsvGpZ1Rw67izEFuzETgF8a5n/onP41Ese oYM02PYakRlU78eUd8Pee5iob5ci5Q/vdVrQeeZVlq +m/0NLm5Wk8Qx/0Wytse7Iet/VddTR5AFvsQ+QPpV8d++EQ2Z780vWX7wssmeH8JUySgrCUJain4Rp52 6iel8S73+VS4HHgkK95+2j8+MSC4kPBbuz7hLh+t4H124MummvwqRVJ36Z9InyFWswh7LtLnFvrJrYdK xsvdgMtNbaMi2H07NGLA3lBTzEamwRxrQ3RQ70OpG3 C4TWn5vRwjSaKpGE8DQpt5HR58A9ZvhG8j+AJH5/uy5pzHpsvZz9rITld8me8+JlxjUdj2LQ9XE29+FZ fVZhUwEsjP1PswqwlSR+uqmEKGEuIbweu67y7/RqkoAuJgMX4MLFiD3SOmi+Ao9wIvcH1RpKlY2QsWbE QAoahpOmhzBAQ6qW5oV2sJx/1s+Wr7JgoRU+4p9Vav q2Ufcub2BT8EpE1oOL6OhwYGiN9C3rkyLA7bm4SE3u/EoEMUbV1JdtJWdSXns5To3+WoiT3QGqzc8FlT m94oqpdGBX02l6toO3a2dpOxlQVecYkZYWWa9CODtpRge/hR5sXkbe4kIm+UZ3JyqUl8VVrD3nNsW3tL PAUL+Joshua/r3DA9UwsQbEdcZgw5a1v17cFtrDIlyGwDXw [file] AgICAgICAgICAgICAgICAgICAgICAgICAgICAgICAgICAgICAgICAgICAgICAgICAgICAgICAgICAgIC AgICAgICAgICAgICAgICAgICAgDQogICAgICAgICAg ICAgICAgICAgICAgICAgICAgICAgICAgICAgICAgICAgICAgICAgICAgICAgICAgICAgICAgICAgICAg ICAgICAgICAgICAgICAgICAgICAgICAgICAgICAgDQogICAgICAgICAgICAgICAgICAgICAgICAgICAg ICAgICAgICAgICAgICAgICAgICAgICAgICAgICAgIC AgICAgICAgICAgICAgICAgICAgICAgICAgICAgICAgICAgICAgICAgDQogICAgICAgICAgICAgICAgIC AgICAgICAgICAgICAgICAgICAgICAgICAgICAgICAgICAgICAgICAgICAgICAgICAgICAgICAgICAgIC AgICAgICAgICAgICAgICAgICAgICAgDQogICAgICAg ICAgICAgICAgICAgICAgICAgICAgICAgICAgICAgICAgICAgICAgICAgICAgICAgICAgICAgICAgICAg ICAgICAgICAgICAgICAgICAgICAgICAgICAgICAgICAgDQogICAgICAgICAgICAgICAgICAgICAgICAg ICAgICAgICAgICAgICAgICAgICAgICAgICAgICAgIC AgICAgICAgICAgICAgICAgICAgICAgICAgICAgICAgICAgICAgICAgICAgDQogICAgICAgICAgICAgIC AgICAgICAgICAgICAgICAgICAgICAgICAgICAgICAgICAgICAgICAgICAgICAgICAgICAgICAgICAgIC AgICAgICAgICAgICAgICAgICAgICAgICAgDQogICAg ICAgICAgICAgICAgICAgICAgICAgICAgICAgICAgICAgICAgICAgICAgICAgICAgICAgICAgICAgICAg ICAgICAgICAgICAgICAgICAgICAgICAgICAgICAgICAgICAgDQogICAgICAgICAgICAgICAgICAgICAg ICAgICAgICAgICAgICAgICAgICAgICAgICAgICAgIC AgICAgICAgICAgICAgICAgICAgICAgICAgICAgICAgICAgICAgICAgICAgICAgDQogICAgICAgICAgIC AgICAgICAgICAgICAgICAgICAgICAgICAgICAgICAgICAgICAgICAgICAgICAgICAgICAgICAgICAgIC AgICAgICAgICAgICAgICAgICAgICAgICAgICAgDQo8 A2nlDBYtCEVxNY8uGPd8Kk4+STcNAqLoNJT6snIhpU0HLJ2bv1GvCJacFIVeb6YcFAv9VQ4XKXBoIBje ZW4TDIcrqq8RNKKhITSsbCYWc8muVjXgSWT0BVJcKdhjFF2TEXDhX1brsfLvOTUuWSVVPXnrOKJUDTbv VXIUMGNmIAQfNrFkQaJzARKmOX5EFNUdL700juJpJA 2GWr6PVbYtXL7wzc9HRkIrPZOhHsnSWmj3WFriLY9GzAXzpERfLSZcGBITQbQaK6ucf0PnQhEjONICZP xcNL5Qk0LliGNsHJo+Wl7LSQ8wt0HlVHngFSSqJQ6glb3YSUyEUrEaY9VdtIdyVACtj0enZCTxCH9wwN EfIKW1XRu4ZL1xyR6uATocPF9KGQG7CAInJj6rHOBc IBH4HjEdEELTEK6BJJQyUKVebYWeKJAaLPAQFH4KYZnmUVM7PNKqssIxzFBnAWflZO7NNPXdpeCzRgGs MCBSDQo+Vz3WVL7vr0SyWHwqJtArNB2nor5XUPnDFxZmV7F7mDWtE7G4FTgrEz0ZTFItAJCkVpuxOEKA GNjvZM2XJV8shcU1BH7UyIPhBKTsLRPnxEZgEKz5P8 8qjSUkCBobRE0VJOT+Ivett+Ft0HFOQmMGPbEMSeOaZzETIPXtFnM8RvX2FFr9SlY2EkSY92nLsxkcVwGP uqXT2VMP8qUPNnTGRDJM3TwKFymN9vbeRzZJWqKTJMVlBmI47auNAaDGRqRPR4KAOtDn5YRQTrQ5Wvvm MmaSuqnxZiYNFtKXBBHB7NGLsmavJraQUxlXkxVN38 jVfvXM2ZMa1MRuWsZS5svx6MpJFjWx0BYKSzKj2IFWIhRPOvMOBaZLZ7QGCkZqPxAEnwMPIjQUKtSYQ6 ARVnDDJdEM3EYzKmDPLiTGV2JjUfCHZlZBMoge1ZUZImZEL0IfBaTDUhXDMtDJEcIGmoPSRzZGTpMCZ8 JATsVUQtHV0BTeFoEGQrOVJ3DPHxUXUaGMMbkd4CGS XsINLiOhrkNLOqUQPbATFdWPskWRAnLZI5BtWuHLAsGVLiBP5LGdRjXCHwSFA0OfXnQOImIBXwym9QMP SlRAEvNMI8RgQvYZIuOSNrSVbxXKSlNSZaLRJ9HIDwLCZlCP8PTjFaJRUgBAC1ESIpJBSjFLGvlz7URQ TkZLDiFAYhZNXoDKIfPKClINeaBKYjPED2HwNpJGXs ONArKU5FAxWmSBMyIDR9DBqnABBsRSZuie6LCZTbMOBtDii2TRExUKGbIUScHNvhTFWgKJD8DJs6NBOg XJCzIX0CZkRlSSVvKMfnMWejVUXgANBehp2OWABsRIQmUIJzVKPpUMZgHWFiFRylYXJcIJR1OlFqHMJt WAEqDD1WUtAmNVNvOSo5TXpxDZQdDWJnht2TIEClZB Q1CiT3DDAwQBBjBESrHBcuQBZuDYZyGsS9MUXdLIXaRW7CLpWsFRTtQSI3ZqovZIObRLWgpr0SLCEyUV C6CGV7ZFDfBQDpYLYiAHvoYXQoTKH1NZG3XIUeLSMkQE4WPzXoZTAuUKH5RRlqYZZbJBLhpz9ZHQDlOZ O6TLP8EyFrAEBdOIPbJPseYQOtBVW3ODX1FHNuLOHb DA3GOdLdUTRyWNNjKpLmWLJmCXZnqg1FZAUgXCH2XslmLPDlXYOqKSMkQCwzEXDjYBM1CPM2GGVcPHYu CU7XKvHiDRKnFEd5WCVdDZGrIRXfgw9EnUTqoLhafp5VQQiALq3MeXgoJOCdCCjzNo0zxTTyIzYbKNQJ Ca2ZjyXqEYUjSDKZKIzwUSVmJDVwWPCfKwSmUsJaEp T1XWP4YKJaAPziMLojURI7ZlUnZyP5BzVzXPC1JLQkCuGvRKgcKsxaJcThUOVlAkQ0NHE3JaE+IF0gDQ o+Yq2Qy7LokdB3jqGlPYf5LCC0GX7BNHXRF0TQLh== ID Date Data Source [id number] 10/22/2020 07:15:45 AM EDT [facility] Name Value Range Interpretation Code Description Data Renee rce(s) Supporting Document(s) Progress Note [facility] PEVJBr3gGzOCFfMw72/XEPmdFLVae7TiIOqpUIv2SLafIEZyM6KtFTU1iH4iMHN4MQsVUeSdAwIySYH7 lbm [file] Mq2WZsThUqBYWrHwSL5ECQu= ID Date Data Source [id number] 10/03/2020 09:12:18 PM EDT [facility] Name Value Range Interpretation Code Description Data Renee rce(s) Supporting Document(s) Progress Note [facility] DGJREg7vSsYXBxVu14/WRGoiBBMpd7KbSYroOMx6NAlwTYMkW6LmKLR5bX0bFNH1HJoAJqLfBiTuHiW8 lbm [file] ICAgICAgICAgICAgICAgICAgICAgICAgICAgICAgIC AgICAgICAgICAgICAgICAgICAgICAgICAgICAgICAgICAgICAgICAgICAgICAgICAgICAgICAgICAgIA 0KICAgICAgICAgICAgICAgICAgICAgICAgICAgICAgICAgICAgICAgICAgICAgICAgICAgICAgICAgIC AgICAgICAgICAgICAgICAgICAgICAgICAgICAgICAg ZEYoEWBeTZVqIU1RRVIbKKVeHVVxFQLbZKGkORZjBPVaTPBsHSMtCGXpVYGxITOqDTAhHMDxVMIcQAWl CAKnFXYiNALlYUMrBAImICViKDGtBUYrZZJbMLRxEMYpZCSlEBVoSEOgCOGbESInUHIiWZ7OFAAzGEUd ICAgICAgICAgICAgICAgICAgICAgICAgICAgICAgIC AgICAgICAgICAgICAgICAgICAgICAgICAgICAgICAgICAgICAgICAgICAgICAgICAgICAgICAgICAgIC WvLI0CANKkNLJuQOTvIQYlSMKxFSSeNXOhUUBhCRGlYGLkVKMrZKBgRLVkSPLtSPAfOUJsOSQcSQFwYZ AgICAgICAgICAgICAgICAgICAgICAgICAgICAgICAg RZDoZSKwTCBkWIIoFM0TVEMjSNRzJZYjMRTwLKGiGVXwCTObLSMzTEQpBJKiCMYdQAZlGNNyUYOpHMDe ZOBsSZRjXXWjEIVfJCReMDRoFWFfVFLhTFKkGGMxHJPcXELaPVMxCJOmCHYtIJNyWVXtPBReJV0EVOTk ICAgICAgICAgICAgICAgICAgICAgICAgICAgICAgIC AgICAgICAgICAgICAgICAgICAgICAgICAgICAgICAgICAgICAgICAgICAgICAgICAgICAgICAgICAgIC DmAKJsRN5GVQRzMJUuGXIcKXFmLTQiFVQxELWfAKPnAYXyCFMvEGMnONQtFPEsTTAcVXTjFFBkRQVgMQ AgICAgICAgICAgICAgICAgICAgICAgICAgICAgICAg ZSYbPTJtDYNaYORfIJSxZU4HWESoWWVeDGLoINViUMIuJRAbIVPeCSUjQCAvKLAeRDCiECRpVGQbBCHb SFOrXUImKQKfJZEsXVLvOULuTMKkXCZmTYYlZOZiNELwIMGbRQJrQUCxVLVpJZJpIGAkKXIkXALiVS2F ICAgICAgICAgICAgICAgICAgICAgICAgICAgICAgIC AgICAgICAgICAgICAgICAgICAgICAgICAgICAgICAgICAgICAgICAgICAgICAgICAgICAgICAgICAgIC KmZPLwJYKbYH8TWG72rOIjs7K4WYTbHC0ctsv/Wb3LTVkgzbEskFSuIB2REgRnGF6pjt8HDcAgCS6cib 6FEIjZDiTuB7N7uXCxRWHyCREKXfWkT88fRGzrWm03 VTbkVPFnWnCgDBi4Hs9WLcUpS4doTPAaCyE6AZXqQtG2AVHsNkE8GWUjLvIwQPJuVBObIPSwDZBKPTR8 NUPnLmWxCbZgLEKbTA5QIWBrS378yoYgKl1EEa8CRqGcJQ4zbm0MXqchWTJoXdjMGxu0IMitIZ1CmTLs nSYmJSMlHPTJXjOeN4xho3ZpPvdyYAHOSXndZT0Ll5 VudCAxDQo+Ze1SPS0sn6LeZYbbGJArDF8rck8XEWiJCaEaU7VttTcaIXKzu6ezNLHwJT1pyKJlMTN7LC OiKjRkrAYEGPGlnxogbzUjVA9HOAV5RMBhND6pDREgQCGtSlHiRHWKFE9PBXYyAHUkoMNhMDFqFEWPWE 6SNXzaHCV3DKJtpvWyrERzSQlhBA5EWDGvfmYcOxye MCBSDQo+Ha2MYA4nm4MgZRufYFXmSP5wug4SRJpYXpRfR3J8hNTzZ8O9MInfDe6YNCOzRKMuXmOfZEMA HVgoWV6VFZ9edpV5ZC4DkCWqGBEzQXIymZElQUh2N59wvPMeTVnfWK5ESIU+Ivett+My8KJVMvFDCbSOVl TyQsQBVQYfTbO2TuP1AZc0VgB6FcJN99fCphqxBbKG iiIS1MYF8uILGuRNIQVE5PxVNamA3hkwQaBmOcPDSYXwNmE58meMOwUUZpBLC1KGQiCc6NFRKgU9Yglz XegEiegaXoYRUkMOMLJD2SCQlfmyBekFNryAvbPF30vWagHI9OWs3JGxAuXY2zxe2AzKZlIb8UJIG1JW 3SRHFvVZKxLYBlRLX5ZRYcYpQhXPfaFHXmSIGsFVA9 BCItSGJuDJ2XIrZdYZKvTqf4FNdyJOEnLAFumy9GEYLmZGC8RWB0DPIxQHSpJEQgIBvsOUFzAHOcNDW6 QLSzSYReKV1GXlXmBVRkRAJ5GISkDRMfYWJmnv6BQYHeQXVlPeg6IHJlJAZqOIUySXvfCJZtQKX4FiD5 BNZjMLQmXU0SAdPxRFNzOCr9OQAfDVDnUVVdjk2YDW JcBFGoNWDjERKoGGHwMOXrWQkxNOVmOMWhIvS2UXMsTFPtNN3OVeNvAOAmDPZ7BXpcMWJhDSNnuy4NRY FtYFObYlq0LjAcIAXdSVLjOVloKDLdYZN4SJLvPRLuPKLgQG2MPcUjLNUkPPkcCVncQLEaXLPwnk3PKE UiPZUoMRK4JbXkYZKpZOTxWLnwIZKuJGYgHoIjHWXs YKTzTQ5OEiNfHMIrIrB2XoCxEBDgBJTmmk2GFQQfQTXrZUeeFqMzSUWgBGAnRAbnJTAiUSDdGefiRLIw KBUgUK7UVlQhIMKmInC1HOozFYHfGNTvit5WKAFlMQBdXwN7VtOgXECxMYKxOAsnHEFgBWA5CEEeXIEa EHExRT3KBmYsMLExIyLdPeIaNCJcKLFazf6RIWIuTN RlAPEkVXIzTNDpEDKvEPqmNKNlUDD5SMKzIROwXPMxLT8JGbWcOUApEaUrQvUaGIGaRFYnwc0LQYBvIH GxDjW4IZUgJBZoKQIgNQweTCOkXVC1ZaV1FPUkNUOnBP2CQaHsGSHjMqI4CXJqFIQwQBDqqd4WSVLlJQ SnJqqoVUDaBTFsHBSeLKnnONWbJHM7FLFfCFSeDTAy GO1RElSvRGRtQssqPLHtOMWhXVRstu4UNVUaFUIfADAyCEVaKJLjENBcUChfWNKnFDF1TnB0VVFcHMWu IH9ROfOgIVOqUvcqGZOeBXSyCTDlcb3SLZKtRZToPMilWMAuYQZxFZZvHWzoGLEwVAZyGeH6HGAhFGWi IZ2UWqAiQVYjACGcXuqqCVEpVKFquh8LTEJyOYO2OY VkCNLfSNTxGAMuWTv0mzZofJZlSRs1QQ8IN8EvdaPnFSLXNw4Xx401ZKR2GSRxOy8DX6dxBu1vBJAfGP EFZk7AFLa3PFEtD3R1IUSrDRM4BwPxQLO1SShrEESaOHTeCNE0MLI+BIepAmMgIcM2R7NjEUF9AZJ3Uq q4GGIjFlI6KtEyWpIvTb7dIRNCSa0+ZMurdHIriPdtASPXToXtDvcsOHsxKQBNZb4J ID Date Data Source [id number] 09/28/2020 12:54:00 PM EST [place] ([facility]) Name Value Range Interpretation Code Description Data Renee rce(s) Supporting Document(s) white blood count 6.0 10 4.0-10.0 White Blood Count [facility] ([facility]) red blood count 3.97 10 4.00-5.40 Below low normal Red Blood Coun t [facility] ([facility]) hemoglobin 12.8 g/dL 12.0-15.5 Hemoglobin [facility] ([facility]) hematocrit 40.3 % 36.0-47.0 Hematocrit [facility] ([facility]) mean corpuscular volume 101.5 fL 80.0-96.0 Above high normal Mean Corpuscular Volume [facility] ([facility]) mean corpuscular HGB conc 31.8 g/dL 32.0-36.5 Below low teodoro l Mean Corpuscular HGB Conc [facility] ([facility]) mean corpuscular hemoglobin 32.2 pg 27.0-33.0 Mean Cor puscular Hemoglobin [facility] ([facility]) red cell distribution width 13.2 % 11.5-14.5 Red Cell Distribution Width [facility] ([facility]) platelet count, automated 171 10 150-450 Platelet C ount, Automated [facility] ([facility]) neutrophils % 65.5 % 36.0-66.0 Neutrophils % [facility] ( [facility]) lymph % 24.7 % 24.0-44.0 Lymph % [facility] ([facility]) eos % 1.3 % 0.0-3.0 Eos % [facility] ([facility]) mono % 7.7 % 2.0-8.0 [place] % [facility] ([facility]) baso % 0.5 % 0.0-1.0 Baso % [place] ([facility]) immature granulocyte % 0.3 % 0-3.0 Immature Gran ulocyte % [place] ([facility]) neutrophils # 3.9 10 1.5-8.5 Neutrophils # [place] ( [facility]) nucleated red blood cell % 0.0 % 0-0 Nucleated Red Blood Cell % [place] ([facility]) lymph # 1.5 10 1.5-5.0 Lymph # [place] ([facility]) mono # 0.5 10 0.0-0.8 [place] # [place] ([facility]) eos # 0.1 10 0.0-0.5 Eos # [place] ([facility]) baso # 0.0 10 0.0-0.2 Baso # [place] ([facility]) ID Date Data Source [id number] 09/28/2020 12:54:00 PM EST [place] ([facility]) Name Value Range Interpretation Code Description Data Renee rce(s) Supporting Document(s) glucose, fasting 75 mg/dL 70-100 Glucose, Fasting AT [facility] ([facility]) blood urea nitrogen 17 mg/dL 7-18 Blood Urea Nitro gen [facility] ([facility]) creatinine for GFR 0.80 mg/dL 0.55-1.30 Creatinine for GF R [place] ([facility]) sodium level 142 mEq/L 136-145 Sodium Level [place] (No [facility]) glomerular filtration rate > 60.0 >60 [place] Filtration Rate [facility] ([facility]) carbon dioxide level 27 mEq/L 21-32 Carbon Dioxide Level [facility] ([facility]) chloride level 110 mEq/L 98-107 Above high normal Chloride Level [facility] ([facility]) potassium serum 4.6 mEq/L 3.5-5.1 Potassium Serum [facility] [place] ([facility]) anion gap 5 mEq/L 8-16 Below low normal Anion Gap [facility] ( [facility]) AST/SGOT 37 U/L 7-37 AST/SGOT [facility] ([facility]) calcium level 8.9 mg/dL 8.5-10.1 Calcium Level [facility] ( [facility]) ALT/SGPT 61 U/L 12-78 ALT/SGPT [facility] ([facility]) alkaline phosphatase 109 U/L 45-117 Alkaline Phosph atase [facility] ([facility]) total protein 7.2 gm/dL 6.4-8.2 Total Protein [facility] ( [facility]) bilirubin,total 0.2 mg/dL 0.2-1.0 Bilirubin,total [facility] ([facility]) albumin 3.7 gm/dL 3.2-5.2 Albumin [facility] ([facility]) albumin/globulin ratio 1.2-2.2 Below low normal Albumin /globulin Ratio [facility] ([facility]) ID Date Data Source [id number] 09/28/2020 12:54:00 PM EST [place] ([facility]) Name Value Range Interpretation Code Description Data Renee rce(s) Supporting Document(s) triglycerides level 132 mg/dL <150 Triglycerides Le sammi [facility] ([facility]) cholesterol level 157 mg/dL <200 Cholesterol Level [facility] ([facility]) HDL cholesterol 46 mg/dL >40 HDL Cholesterol [facility] ([facility]) Cholesterol in LDL [Mass/volume] in Serum or Plasma 85 mg/dL <1 00 LDL Cholesterol [facility] ([facility]) non-HDL-C 111 mg/dL Non-hdl-c [facility] ([facility]) cholesterol risk ratio <5 Cholesterol R isk Ratio [facility] ([facility]) ID Date Data Source [id number] 09/28/2020 12:54:00 PM EST [facility] ([facility]) Name Value Range Interpretation Code Description Data Renee rce(s) Supporting Document(s) iron (fe) 55 ug/dL 50-170 Iron (Fe) [facility] ([facility]) total iron binding capacity 411 ug/dL 250-450 Total Ir on Binding Capacity [facility] ([facility]) percent saturation 13.4 % 13.2-45.0 Percent Saturatio n [facility] ([facility]) ID Date Data Source [id number] 09/28/2020 12:54:00 PM EST [facility] ([facility]) Name Value Range Interpretation Code Description Data Renee rce(s) Supporting Document(s) vitamin B12 level 307 pg/mL 247-911 Vitamin B12 Level [facility] ([facility]) ID Date Data Source [id number] 09/28/2020 12:54:00 PM EST [facility] ([facility]) Name Value Range Interpretation Code Description Data Renee rce(s) Supporting Document(s) folate 7.0 NG/mL >5.4 Folate [facility] ([facility]) ID Date Data Source [id number] 09/28/2020 12:54:00 PM EST [facility] ([facility]) Name Value Range Interpretation Code Description Data Renee rce(s) Supporting Document(s) total 25(oh) vitamin D 10.8 NG/mL 30.0-100.0 Below low normal T otal 25(Oh) Vitamin D [facility] ([facility]) ID Date Data Source [id number] 09/28/2020 12:54:00 PM EST [facility] ([facility]) Name Value Range Interpretation Code Description Data Renee rce(s) Supporting Document(s) ferritin 17 NG/mL 8-252 Ferritin [facility] ([facility]) ID Date Data Source [id number] 09/28/2020 12:54:00 PM EST [facility] ([facility]) Name Value Range Interpretation Code Description Data Renee rce(s) Supporting Document(s) vitamin B1 level whole blood 109.8 nmol/L 66.5-200.0 Vitamin B1 Level Whole Blood [facility] ([facility]) ID Date Data Source [id number] 09/28/2020 12:54:00 PM EST [facility] ([facility]) Name Value Range Interpretation Code Description Data Renee rce(s) Supporting Document(s) white blood count 6.0 10 4.0-10.0 White Blood Count [place] ([facility]) hemoglobin 12.8 g/dL 12.0-15.5 Hemoglobin [place] ([facility]) red blood count 3.97 10 4.00-5.40 Below low normal Red Blood Coun t [place] ([facility]) mean corpuscular volume 101.5 fL 80.0-96.0 Above high normal Mean Corpuscular Volume [place] ([facility]) hematocrit 40.3 % 36.0-47.0 Hematocrit [place] ([facility]) mean corpuscular hemoglobin 32.2 pg 27.0-33.0 Mean Cor puscular Hemoglobin [place] ([facility]) platelet count, automated 171 10 150-450 Platelet C ount, Automated [facility] ([facility]) mean corpuscular HGB conc 31.8 g/dL 32.0-36.5 Below low teodoro l Mean Corpuscular HGB Conc [facility] ([facility]) red cell distribution width 13.2 % 11.5-14.5 Red Cell Distribution Width [facility] ([facility]) lymph % 24.7 % 24.0-44.0 Lymph % [facility] ([facility]) mono % 7.7 % 2.0-8.0 [place] % [facility] ([facility]) neutrophils % 65.5 % 36.0-66.0 Neutrophils % [facility] ( [facility]) eos % 1.3 % 0.0-3.0 Eos % [facility] ([facility]) immature granulocyte % 0.3 % 0-3.0 Immature Gran ulocyte % [facility] ([facility]) baso % 0.5 % 0.0-1.0 Baso % [facility] ([facility]) lymph # 1.5 10 1.5-5.0 Lymph # [facility] ([facility]) nucleated red blood cell % 0.0 % 0-0 Nucleated Red Blood Cell % [facility] ([facility]) neutrophils # 3.9 10 1.5-8.5 Neutrophils # [place] ( [facility]) baso # 0.0 10 0.0-0.2 Baso # [facility] ([facility]) eos # 0.1 10 0.0-0.5 Eos # [facility] ([facility]) mono # 0.5 10 0.0-0.8 [place] # [facility] ([facility]) ID Date Data Source [id number] 09/28/2020 12:54:00 PM EST [place] ([facility]) Name Value Range Interpretation Code Description Data Renee rce(s) Supporting Document(s) blood urea nitrogen 17 mg/dL 7-18 Blood Urea Nitro gen [place] ([facility]) creatinine for GFR 0.80 mg/dL 0.55-1.30 Creatinine for GF R [facility] ([facility]) glucose, fasting 75 mg/dL 70-100 Glucose, Fasting AT [facility] ([facility]) potassium serum 4.6 mEq/L 3.5-5.1 Potassium Serum [facility] ([facility]) sodium level 142 mEq/L 136-145 Sodium Level [facility] ([facility]) glomerular filtration rate > 60.0 >60 [place] Filtration Rate [facility] ([facility]) carbon dioxide level 27 mEq/L 21-32 Carbon Dioxide Level [place] ([facility]) calcium level 8.9 mg/dL 8.5-10.1 Calcium Level [facility] ( [facility]) anion gap 5 mEq/L 8-16 Below low normal Anion Gap [facility] ( [facility]) chloride level 110 mEq/L 98-107 Above high normal Chloride Level [facility] ([facility]) ALT/SGPT 61 U/L 12-78 ALT/SGPT [facility] ([facility]) alkaline phosphatase 109 U/L 45-117 Alkaline Phosph atase [facility] ([facility]) AST/SGOT 37 U/L 7-37 AST/SGOT [facility] ([facility]) albumin 3.7 gm/dL 3.2-5.2 Albumin [facility] ([facility]) albumin/globulin ratio 1.2-2.2 Below low normal Albumin /globulin Ratio [facility] ([facility]) bilirubin,total 0.2 mg/dL 0.2-1.0 Bilirubin,total [facility] ([facility]) total protein 7.2 gm/dL 6.4-8.2 Total Protein [facility] ( [facility]) ID Date Data Source [id number] 09/28/2020 12:54:00 PM EST [facility] ([facility]) Name Value Range Interpretation Code Description Data Renee rce(s) Supporting Document(s) Cholesterol in LDL [Mass/volume] in Serum or Plasma 85 mg/dL <1 00 LDL Cholesterol [facility] ([facility]) cholesterol level 157 mg/dL <200 Cholesterol Level [facility] ([facility]) triglycerides level 132 mg/dL <150 Triglycerides Le sammi [facility] ([facility]) HDL cholesterol 46 mg/dL >40 HDL Cholesterol [facility] ([facility]) non-HDL-C 111 mg/dL Non-hdl-c [facility] ([facility]) cholesterol risk ratio <5 Cholesterol R isk Ratio [facility] ([facility]) ID Date Data Source [id number] 09/28/2020 12:54:00 PM EST [place] ([facility]) Name Value Range Interpretation Code Description Data Renee rce(s) Supporting Document(s) total iron binding capacity 411 ug/dL 250-450 Total Ir on Binding Capacity [facility] ([facility]) iron (fe) 55 ug/dL 50-170 Iron (Fe) [facility] ([facility]) percent saturation 13.4 % 13.2-45.0 Percent Saturatio n [facility] ([facility]) ID Date Data Source [id number] 09/28/2020 12:54:00 PM EST [place] ([facility]) Name Value Range Interpretation Code Description Data Renee rce(s) Supporting Document(s) vitamin B12 level 307 pg/mL 247-911 Vitamin B12 Level [facility] ([facility]) ID Date Data Source [id number] 09/28/2020 12:54:00 PM EST [facility] ([facility]) Name Value Range Interpretation Code Description Data Renee rce(s) Supporting Document(s) folate 7.0 NG/mL >5.4 Folate [facility] ([facility]) ID Date Data Source [id number] 09/28/2020 12:54:00 PM EST [facility] ([facility]) Name Value Range Interpretation Code Description Data Renee rce(s) Supporting Document(s) total 25(oh) vitamin D 10.8 NG/mL 30.0-100.0 Below low normal T otal 25(Oh) Vitamin D [facility] ([facility]) ID Date Data Source [id number] 09/28/2020 12:54:00 PM EST [place] ([facility]) Name Value Range Interpretation Code Description Data Renee rce(s) Supporting Document(s) ferritin 17 NG/mL 8-252 Ferritin [facility] ([facility]) ID Date Data Source [id number] 09/28/2020 12:54:00 PM EST [place] ([facility]) Name Value Range Interpretation Code Description Data Renee rce(s) Supporting Document(s) vitamin B1 level whole blood 109.8 nmol/L 66.5-200.0 Vitamin B1 Level Whole Blood [facility] ([facility]) ID Date Data Source [id number] 09/28/2020 12:54:00 PM EST [place] ([facility]) Name Value Range Interpretation Code Description Data Renee rce(s) Supporting Document(s) white blood count 6.0 10 4.0-10.0 White Blood Count [place] ([facility]) red blood count 3.97 10 4.00-5.40 Below low normal Red Blood Coun t [place] ([facility]) mean corpuscular hemoglobin 32.2 pg 27.0-33.0 Mean Cor puscular Hemoglobin [place] ([facility]) mean corpuscular volume 101.5 fL 80.0-96.0 Above high normal Mean Corpuscular Volume [place] ([facility]) hematocrit 40.3 % 36.0-47.0 Hematocrit [place] ([facility]) hemoglobin 12.8 g/dL 12.0-15.5 Hemoglobin [place] ([facility]) mean corpuscular HGB conc 31.8 g/dL 32.0-36.5 Below low teodoro l Mean Corpuscular HGB Conc [place] ([facility]) red cell distribution width 13.2 % 11.5-14.5 Red Cell Distribution Width [place] ([facility]) platelet count, automated 171 10 150-450 Platelet C ount, Automated [place] ([facility]) lymph % 24.7 % 24.0-44.0 Lymph % [place] ([facility]) neutrophils % 65.5 % 36.0-66.0 Neutrophils % [place] ( [facility]) eos % 1.3 % 0.0-3.0 Eos % [place] ([facility]) mono % 7.7 % 2.0-8.0 [place] % [place] ([facility]) nucleated red blood cell % 0.0 % 0-0 Nucleated Red Blood Cell % [place] ([facility]) baso % 0.5 % 0.0-1.0 Baso % [place] ([facility]) immature granulocyte % 0.3 % 0-3.0 Immature Gran ulocyte % [place] ([facility]) eos # 0.1 10 0.0-0.5 Eos # [facility] ([facility]) mono # 0.5 10 0.0-0.8 [place] # [place] ([facility]) lymph # 1.5 10 1.5-5.0 Lymph # [place] ([facility]) neutrophils # 3.9 10 1.5-8.5 Neutrophils # [place] ( [facility]) baso # 0.0 10 0.0-0.2 Baso # [place] ([facility]) ID Date Data Source [id number] 09/28/2020 12:54:00 PM EST [place] ([facility]) Name Value Range Interpretation Code Description Data Renee rce(s) Supporting Document(s) glucose, fasting 75 mg/dL 70-100 Glucose, Fasting AT [facility]) blood urea nitrogen 17 mg/dL 7-18 Blood Urea Nitro gen [place] ([facility]) creatinine for GFR 0.80 mg/dL 0.55-1.30 Creatinine for GF R [place] ([facility]) glomerular filtration rate > 60.0 >60 [place] r Filtration Rate [place] ([facility]) potassium serum 4.6 mEq/L 3.5-5.1 Potassium Serum [place] ([facility]) sodium level 142 mEq/L 136-145 Sodium Level [place] ([facility]) chloride level 110 mEq/L 98-107 Above high normal Chloride Level [place] ([facility]) AST/SGOT 37 U/L 7-37 AST/SGOT [place] ([facility]) carbon dioxide level 27 mEq/L 21-32 Carbon Dioxide Level [place] ([facility]) calcium level 8.9 mg/dL 8.5-10.1 Calcium Level [place] ( [facility]) anion gap 5 mEq/L 8-16 Below low normal Anion Gap [place] ( [facility]) bilirubin,total 0.2 mg/dL 0.2-1.0 Bilirubin,total [place] [place] ([facility]) ALT/SGPT 61 U/L 12-78 ALT/SGPT [place] ([facility]) alkaline phosphatase 109 U/L 45-117 Alkaline Phosph atase [place] ([facility]) albumin 3.7 gm/dL 3.2-5.2 Albumin [place] ([facility]) albumin/globulin ratio 1.2-2.2 Below low normal Albumin /globulin Ratio [place] ([facility]) total protein 7.2 gm/dL 6.4-8.2 Total Protein [place] ( [facility]) ID Date Data Source [id number] 09/28/2020 12:54:00 PM EST [facility] ([facility]) Name Value Range Interpretation Code Description Data Renee rce(s) Supporting Document(s) triglycerides level 132 mg/dL <150 Triglycerides Le sammi [facility] ([facility]) cholesterol level 157 mg/dL <200 Cholesterol Level [facility] ([facility]) Cholesterol in LDL [Mass/volume] in Serum or Plasma 85 mg/dL <1 00 LDL Cholesterol [facility] ([facility]) HDL cholesterol 46 mg/dL >40 HDL Cholesterol ATHE NA ([facility]) non-HDL-C 111 mg/dL Non-hdl-c [facility] ([facility]) cholesterol risk ratio <5 Cholesterol R isk Ratio [facility] ([facility]) ID Date Data Source [id number] 09/28/2020 12:54:00 PM EST [facility] ([facility]) Name Value Range Interpretation Code Description Data Renee rce(s) Supporting Document(s) percent saturation 13.4 % 13.2-45.0 Percent Saturatio n [facility] ([facility]) iron (fe) 55 ug/dL 50-170 Iron (Fe) [facility] ([facility]) total iron binding capacity 411 ug/dL 250-450 Total Ir on Binding Capacity [facility] ([facility]) ID Date Data Source [id number] 09/28/2020 12:54:00 PM EST [facility] ([facility]) Name Value Range Interpretation Code Description Data Renee rce(s) Supporting Document(s) vitamin B12 level 307 pg/mL 247-911 Vitamin B12 Level [facility] ([facility]) ID Date Data Source [id number] 09/28/2020 12:54:00 PM EST [facility] ([facility]) Name Value Range Interpretation Code Description Data Renee rce(s) Supporting Document(s) folate 7.0 NG/mL >5.4 Folate [facility] ([facility]) ID Date Data Source [id number] 09/28/2020 12:54:00 PM EST [facility] ([facility]) Name Value Range Interpretation Code Description Data Renee rce(s) Supporting Document(s) total 25(oh) vitamin D 10.8 NG/mL 30.0-100.0 Below low normal T otal 25(Oh) Vitamin D [facility] ([facility]) ID Date Data Source [id number] 09/28/2020 12:54:00 PM EST [facility] ([facility]) Name Value Range Interpretation Code Description Data Renee rce(s) Supporting Document(s) ferritin 17 NG/mL 8-252 Ferritin [facility] ([facility]) ID Date Data Source [id number] 09/28/2020 12:54:00 PM EST [facility] ([facility]) Name Value Range Interpretation Code Description Data Renee rce(s) Supporting Document(s) vitamin B1 level whole blood 109.8 nmol/L 66.5-200.0 Vitamin B1 Level Whole Blood [facility] ([facility]) ID Date Data Source [id number] 09/28/2020 12:54:00 PM EST [place] ([facility]) Name Value Range Interpretation Code Description Data Renee rce(s) Supporting Document(s) white blood count 6.0 10 4.0-10.0 White Blood Count [facility] ([facility]) red blood count 3.97 10 4.00-5.40 Below low normal Red Blood Coun t [facility] ([facility]) hemoglobin 12.8 g/dL 12.0-15.5 Hemoglobin [facility] ([facility]) hematocrit 40.3 % 36.0-47.0 Hematocrit [place] ([facility]) mean corpuscular hemoglobin 32.2 pg 27.0-33.0 Mean Cor puscular Hemoglobin [place] ([facility]) mean corpuscular volume 101.5 fL 80.0-96.0 Above high normal Mean Corpuscular Volume [place] ([facility]) red cell distribution width 13.2 % 11.5-14.5 Red Cell Distribution Width [place] ([facility]) platelet count, automated 171 10 150-450 Platelet C ount, Automated [place] ([facility]) mean corpuscular HGB conc 31.8 g/dL 32.0-36.5 Below low teodoro l Mean Corpuscular HGB Conc [place] ([facility]) neutrophils % 65.5 % 36.0-66.0 Neutrophils % [place] ( [facility]) lymph % 24.7 % 24.0-44.0 Lymph % [facility] ([facility]) mono % 7.7 % 2.0-8.0 [place] % [facility] ([facility]) eos % 1.3 % 0.0-3.0 Eos % [facility] ([facility]) baso % 0.5 % 0.0-1.0 Baso % [place] ([facility]) immature granulocyte % 0.3 % 0-3.0 Immature Gran ulocyte % [place] ([facility]) nucleated red blood cell % 0.0 % 0-0 Nucleated Red Blood Cell % [place] ([facility]) neutrophils # 3.9 10 1.5-8.5 Neutrophils # [facility] ( [facility]) lymph # 1.5 10 1.5-5.0 Lymph # [facility] ([facility]) mono # 0.5 10 0.0-0.8 [place] # [facility] ([facility]) eos # 0.1 10 0.0-0.5 Eos # [facility] ([facility]) baso # 0.0 10 0.0-0.2 Baso # [facility] ([facility]) ID Date Data Source [id number] 09/28/2020 12:54:00 PM EST [place] ([facility]) Name Value Range Interpretation Code Description Data Renee rce(s) Supporting Document(s) blood urea nitrogen 17 mg/dL 7-18 Blood Urea Nitro gen [place] ([facility]) glucose, fasting 75 mg/dL 70-100 Glucose, Fasting AT [facility] ([facility]) creatinine for GFR 0.80 mg/dL 0.55-1.30 Creatinine for GF R [place] ([facility]) glomerular filtration rate > 60.0 >60 Glomerula r Filtration Rate [facility] ([facility]) potassium serum 4.6 mEq/L 3.5-5.1 Potassium Serum ATHE NA ([facility]) sodium level 142 mEq/L 136-145 Sodium Level [facility] ([facility]) anion gap 5 mEq/L 8-16 Below low normal Anion Gap [facility] ( [facility]) carbon dioxide level 27 mEq/L 21-32 Carbon Dioxide Level [facility] ([facility]) chloride level 110 mEq/L 98-107 Above high normal Chloride Level [facility] ([facility]) calcium level 8.9 mg/dL 8.5-10.1 Calcium Level [facility] ( [facility]) AST/SGOT 37 U/L 7-37 AST/SGOT [facility] ([facility]) alkaline phosphatase 109 U/L 45-117 Alkaline Phosph atase [facility] ([facility]) ALT/SGPT 61 U/L 12-78 ALT/SGPT [facility] ([facility]) bilirubin,total 0.2 mg/dL 0.2-1.0 Bilirubin,total ATHE NA ([facility]) total protein 7.2 gm/dL 6.4-8.2 Total Protein [facility] ( [facility]) albumin 3.7 gm/dL 3.2-5.2 Albumin [facility] ([facility]) albumin/globulin ratio 1.2-2.2 Below low normal Albumin /globulin Ratio [facility] ([facility]) ID Date Data Source [id number] 09/28/2020 12:54:00 PM EST [facility] ([facility]) Name Value Range Interpretation Code Description Data Renee rce(s) Supporting Document(s) triglycerides level 132 mg/dL <150 Triglycerides Le sammi [facility] ([facility]) cholesterol level 157 mg/dL <200 Cholesterol Level [facility] ([facility]) HDL cholesterol 46 mg/dL >40 HDL Cholesterol AT[facility] NA ([facility]) Cholesterol in LDL [Mass/volume] in Serum or Plasma 85 mg/dL <1 00 LDL Cholesterol [facility] ([facility]) non-HDL-C 111 mg/dL Non-hdl-c [facility] ([facility]) cholesterol risk ratio <5 Cholesterol R isk Ratio [facility] ([facility]) ID Date Data Source [id number] 09/28/2020 12:54:00 PM EST [facility] ([facility]) Name Value Range Interpretation Code Description Data Renee rce(s) Supporting Document(s) iron (fe) 55 ug/dL 50-170 Iron (Fe) [facility] ([facility]) total iron binding capacity 411 ug/dL 250-450 Total Ir on Binding Capacity [facility] ([facility]) percent saturation 13.4 % 13.2-45.0 Percent Saturatio n [facility] ([facility]) ID Date Data Source [id number] 09/28/2020 12:54:00 PM EST [facility] ([facility]) Name Value Range Interpretation Code Description Data Renee rce(s) Supporting Document(s) vitamin B12 level 307 pg/mL 247-911 Vitamin B12 Level [facility] ([facility]) ID Date Data Source [id number] 09/28/2020 12:54:00 PM EST [facility] ([facility]) Name Value Range Interpretation Code Description Data Renee rce(s) Supporting Document(s) folate 7.0 NG/mL >5.4 Folate [facility] ([facility]) ID Date Data Source [id number] 09/28/2020 12:54:00 PM EST [facility] ([facility]) Name Value Range Interpretation Code Description Data Renee rce(s) Supporting Document(s) total 25(oh) vitamin D 10.8 NG/mL 30.0-100.0 Below low normal T otal 25(Oh) Vitamin D [facility] ([facility]) ID Date Data Source [id number] 09/28/2020 12:54:00 PM EST [place] ([facility]) Name Value Range Interpretation Code Description Data Renee rce(s) Supporting Document(s) ferritin 17 NG/mL 8-252 Ferritin [facility] ([facility]) ID Date Data Source [id number] 09/28/2020 12:54:00 PM EST [facility] ([facility]) Name Value Range Interpretation Code Description Data Renee rce(s) Supporting Document(s) vitamin B1 level whole blood 109.8 nmol/L 66.5-200.0 Vitamin B1 Level Whole Blood [facility] ([facility]) ID Date Data Source [id number] 09/28/2020 12:54:00 PM EST [facility] ([facility]) Name Value Range Interpretation Code Description Data Renee rce(s) Supporting Document(s) white blood count 6.0 10 4.0-10.0 White Blood Count [facility] ([facility]) red blood count 3.97 10 4.00-5.40 Below low normal Red Blood Coun t [facility] ([facility]) hemoglobin 12.8 g/dL 12.0-15.5 Hemoglobin [facility] ([facility]) mean corpuscular hemoglobin 32.2 pg 27.0-33.0 Mean Cor puscular Hemoglobin [facility] ([facility]) hematocrit 40.3 % 36.0-47.0 Hematocrit [facility] ([facility]) mean corpuscular volume 101.5 fL 80.0-96.0 Above high normal Mean Corpuscular Volume [facility] ([facility]) red cell distribution width 13.2 % 11.5-14.5 Red Cell Distribution Width [facility] ([facility]) platelet count, automated 171 10 150-450 Platelet C ount, Automated [facility] ([facility]) mean corpuscular HGB conc 31.8 g/dL 32.0-36.5 Below low teodoro l Mean Corpuscular HGB Conc [facility] ([facility]) lymph % 24.7 % 24.0-44.0 Lymph % [facility] ([facility]) eos % 1.3 % 0.0-3.0 Eos % [place] ([facility]) mono % 7.7 % 2.0-8.0 [place] % [place] ([facility]) neutrophils % 65.5 % 36.0-66.0 Neutrophils % [place] ( [facility]) immature granulocyte % 0.3 % 0-3.0 Immature Gran ulocyte % [place] ([facility]) neutrophils # 3.9 10 1.5-8.5 Neutrophils # [place] ( [facility]) nucleated red blood cell % 0.0 % 0-0 Nucleated Red Blood Cell % [facility] ([facility]) baso % 0.5 % 0.0-1.0 Baso % [place] ([facility]) lymph # 1.5 10 1.5-5.0 Lymph # [place] ([facility]) eos # 0.1 10 0.0-0.5 Eos # [facility] ([facility]) mono # 0.5 10 0.0-0.8 [place] # [facility] ([facility]) baso # 0.0 10 0.0-0.2 Baso # [facility] ([facility]) ID Date Data Source [id number] 09/28/2020 12:54:00 PM EST [place] ([facility]) Name Value Range Interpretation Code Description Data Renee rce(s) Supporting Document(s) glucose, fasting 75 mg/dL 70-100 Glucose, Fasting AT [facility] ([facility]) creatinine for GFR 0.80 mg/dL 0.55-1.30 Creatinine for GF R [place] ([facility]) blood urea nitrogen 17 mg/dL 7-18 Blood Urea Nitro gen [place] ([facility]) glomerular filtration rate > 60.0 >60 Glomerula r Filtration Rate [facility] ([facility]) sodium level 142 mEq/L 136-145 Sodium Level [facility] ([facility]) potassium serum 4.6 mEq/L 3.5-5.1 Potassium Serum ATHE NA ([facility]) chloride level 110 mEq/L 98-107 Above high normal Chloride Level [place] ([facility]) carbon dioxide level 27 mEq/L 21-32 Carbon Dioxide Level [place] ([facility]) calcium level 8.9 mg/dL 8.5-10.1 Calcium Level [facility] ( [facility]) anion gap 5 mEq/L 8-16 Below low normal Anion Gap [facility] ( [facility]) AST/SGOT 37 U/L 7-37 AST/SGOT [facility] ([facility]) ALT/SGPT 61 U/L 12-78 ALT/SGPT [facility] ([facility]) total protein 7.2 gm/dL 6.4-8.2 Total Protein [facility] ( [facility]) albumin 3.7 gm/dL 3.2-5.2 Albumin [facility] ([facility]) bilirubin,total 0.2 mg/dL 0.2-1.0 Bilirubin,total ATHE NA ([facility]) albumin/globulin ratio 1.2-2.2 Below low normal Albumin /globulin Ratio [facility] ([facility]) alkaline phosphatase 109 U/L 45-117 Alkaline Phosph atase [facility] ([facility]) ID Date Data Source [id number] 09/28/2020 12:54:00 PM EST [facility] ([facility]) Name Value Range Interpretation Code Description Data Renee rce(s) Supporting Document(s) triglycerides level 132 mg/dL <150 Triglycerides Le sammi [facility] ([facility]) cholesterol risk ratio <5 Cholesterol R isk Ratio [facility] ([facility]) non-HDL-C 111 mg/dL Non-hdl-c [facility] ([facility]) cholesterol level 157 mg/dL <200 Cholesterol Level [facility] ([facility]) Cholesterol in LDL [Mass/volume] in Serum or Plasma 85 mg/dL <1 00 LDL Cholesterol [facility] ([facility]) HDL cholesterol 46 mg/dL >40 HDL Cholesterol AT[facility] NA ([facility]) ID Date Data Source [id number] 09/28/2020 12:54:00 PM EST [facility] ([facility]) Name Value Range Interpretation Code Description Data Renee rce(s) Supporting Document(s) iron (fe) 55 ug/dL 50-170 Iron (Fe) [facility] ([facility]) total iron binding capacity 411 ug/dL 250-450 Total Ir on Binding Capacity [facility] ([facility]) percent saturation 13.4 % 13.2-45.0 Percent Saturatio n [facility] ([facility]) ID Date Data Source [id number] 09/28/2020 12:54:00 PM EST [facility] ([facility]) Name Value Range Interpretation Code Description Data Renee rce(s) Supporting Document(s) vitamin B12 level 307 pg/mL 247-911 Vitamin B12 Level [facility] ([facility]) ID Date Data Source [id number] 09/28/2020 12:54:00 PM EST [facility] ([facility]) Name Value Range Interpretation Code Description Data Renee rce(s) Supporting Document(s) folate 7.0 NG/mL >5.4 Folate [facility] ([facility]) ID Date Data Source [id number] 09/28/2020 12:54:00 PM EST [facility] ([facility]) Name Value Range Interpretation Code Description Data Renee rce(s) Supporting Document(s) total 25(oh) vitamin D 10.8 NG/mL 30.0-100.0 Below low normal T otal 25(Oh) Vitamin D [facility] ([facility]) ID Date Data Source [id number] 09/28/2020 12:54:00 PM EST [facility] ([facility]) Name Value Range Interpretation Code Description Data Renee rce(s) Supporting Document(s) ferritin 17 NG/mL 8-252 Ferritin [facility] ([facility]) ID Date Data Source [id number] 09/28/2020 12:54:00 PM EST [place] ([facility]) Name Value Range Interpretation Code Description Data Renee rce(s) Supporting Document(s) vitamin B1 level whole blood 109.8 nmol/L 66.5-200.0 Vitamin B1 Level Whole Blood [facility] ([facility]) ID Date Data Source [id number] 09/26/2020 06:14:58 PM EST [facility] Name Value Range Interpretation Code Description Data Renee rce(s) Supporting Document(s) Progress Note [facility] CTCVOt0cWbGFZaQf25/ZLBhaCRRmh9HlOKoeRPj3AZdkOOTvF5XuHXR2dM7xICW6VIoKWiMxMjOtMvKw [facility] XoUqvWLzXdUMBwYjpKOpWuQQndKboxoAZmSI0PqCU7WBUgX32wTDJkARDcN8UaNCTrPSS+Hl9FTTEenT OtMA1SRilF7M5Qo8oQQi7ipp3YV0xoXIneZoVlMMXMAulwkCyYV9dt3ndOgRPJTASOgA0/w22yJGuVjz Aq3tFIbsFQcNIktyjy4+hZZse887h1TiCH88tWq+XP lZz7OIE//GXpkqax0Bwbq+ne8eZ8MhkyZyl+ug48Vy4M6K6HZ5V2blWG2JUBtoRc6QhpFMy2V663z+Nk +lx9+YI9KHV9iZ1+y6o0zvKhiP/++P645vkB9aSAgK0Z1DEG049Nyfs4AwKDzx496ZrueaX94wJXWSwx aBObQCmaBSqogCw1sM1Kt5MhJyWerG1ixApMr8FKlg Kvz1k4gtVj7FfNFFvRS2Qz95PG9DW/M5oBvns+tD7Q1PgfN2DGEti5rT3dCQ7WlZMJsZUjynp2C7YC6X 18jOzkmtsPBAoKtU39x7Zfm+KjgIla724Kw1nfvW8B8uU7Xx2HNvhlaO0ft32WBfZwDezwsiDsGCd/W6 LdYjBl1+Cx5R4Z61qioDz/nVr6izd5VIY6ezHL/X6a PX7WuOv4ZCx93fPnfhUtSE8zCuxxKnWqQUtDSx2kezahsOUcj9AMEv1nqqmPO+ui+URDU+PS2avl/78s9F [file] [id number]9+DFxkwKBzaZamQOBITfG7ULbvXXqoNDIAQe7K ID Date Data Source [id number] 09/25/2020 09:26:00 PM EST [facility] Name Value Range Interpretation Code Description Data Renee rce(s) Supporting Document(s) BHD COVID-19 RT-PCR [employer] Not Detected Not Detected [facility] This test has received Emergency Use Aut horization (EUA). We willcontinue to follow federal and state requirements for COVID-19reporting. This test was developed and its performance characteristicsdetermined by [facility]. It has not been cleared orapproved by the U.S. Food and Drug Administration but has been givenemergency use authorization. Results should be used in conjunctionwith clinical findings and should not form the sole basis for adiagnosis or treatment decision. Methods: SARS-CoV-2 Multiplex RT-PCRAssayA not detected (negative) test result for this test means that SARS-CoV-2 RNA was not present in the specimen above the limit ofdetection. Laboratory test results should always be considered in thecontext of clinical observations and epidemiological data in making afinal diagnosis and patient management decisions. Results will bereported to government agencies as required. ID Date Data Source [id number] 09/25/2020 10:37:41 AM EST [facility] Name Value Range Interpretation Code Description Data Renee rce(s) Supporting Document(s) Progress Note [facility] QOIQHz2yAvCCWhBl05/GJLszEYDsi3FdJFikGCn7GPawXEUpJ3KsBTE7fQ6gZWA1CVxEYkGbAiZiQvX4 [facility] [file] [id number]= ID Date Data Source [id number] 09/25/2020 01:57:58 PM [facility] Name Value Range Interpretation Code Description Data Renee e(s) Supporting Document(s) Color of Urine [facility] Clarity of Urine [facility] Specific gravity of Urine by Refractometry automated 1.028 1.003 -1.030 [facility] pH of Urine by Automated test strip 5.0 5.0-8.0 [facility] Protein [Mass/volume] in Urine by Automated test strip Neg [facility] Glucose [Mass/volume] in Urine by Automated test strip Neg [facility] Ketones [Mass/volume] in Urine by Automated test strip Neg [facility] Bilirubin.total [Presence] in Urine by Automated test strip Negative [facility] Hemoglobin [Presence] in Urine by Automated test strip Neg ative [facility] Leukocyte esterase [Presence] in Urine by Automated test strip Negative [facility] Nitrite [Presence] in Urine by Automated test strip Negati ve [facility] Leukocytes [#/area] in Urine sediment by Automated count 0 /HPF 0 -5 [facility] Erythrocytes [#/area] in Urine sediment by Automated count 0 /HPF 0-3 [facility] ID Date Data Source [id number] 09/27/2020 07:23:01 AM EST [facility] Service Cmnt XXX-Imp : NoneMicroorganism XXX Cult : 40,000 col/mlIndigenous microorganisms. Name Value Range Interpretation Code Description Data Renee rce(s) Supporting Document(s) ID Date Data Source [id number] 09/21/2020 08:00:00 PM EST [facility] Name Value Range Interpretation Code Description Data Renee rce(s) Supporting Document(s) SARS coronavirus 2 RNA [Presence] in Res piratory specimen by HUNG with probe detection NEGATIVE [facility] This lab was ordered by Neris Beverly and reported by [facility]. ID Date Data Source [id number] 09/21/2020 12:00:00 AM EST [facility] Name Value Range Interpretation Code Description Data Renee rce(s) Supporting Document(s) Carestart Rapid COVID Antigen Test Negative [facility] This lab was reported [facility] ID Date Data Source [id number] 09/18/2020 10:10:00 AM EST [facility] [address] [place] [address], [address] [place], [place] [id number] [place] [phone] Fax: Bariatric Progress Note : [phone] Signed with Basim Patient: Corey Cortez Acct:[id number] Visit Date: 09/18/20 : [address] Brigitte Carrasco Neurologist Dr. Brigitte Carrasco Addendum Signed By: Patricia Dougherty NP Signed Date/Time: 09/19/20 1450 Addendum Co-Sign By: Sergio Conklin MD Co-Sign Date/Time: 10/07/20 1849 Intake Vital Signs 09/18/20 10:16 Height 5 ft 9 in Weight 115.212 kg BMI 37.5 Comment 254 lbs Intake Patient Status Have you had an UC/ED visit and/or been admitted to the hospital since your last visit?: No Have you been diagnosed with COVID-19?: No Visit Reasons: Conf-Weigh In/ Nurse Note: Patient presents for virtual weigh in and is self reporting her weight today. Sheis interested in the sleeve with Dr. Conklin. Mold Injector Required: No Is patient in pain?: No Primary Care Physician:: Tyrone Garcia Have you smoked within the past year: No Allergies aspirin Allergy (Verified 09/18/20 10:17) metoclopramide [From Reglan] Allergy (Verified 09/18/20 10:17) tramadol Allergy (Verified 09/18/20 10:17) Home Medications - Last Reconciled 09/18/20 by Darío Peace LPN furosemide 20 mg tablet (Lasix) 20 mg PO DAILY Patient understands their medications: Yes Patient given information on their new medications: No History of Smoking/Tobacco Use: Never Smoker Annual Influenza Vaccine: Yes Pneumococcal Vaccine (+65): No Immunizations up to date: Yes Patient or : No Recent Travel Travel Outside of the country in last 30 days?: No Mask given: No [facility] Medical History (Updated 09/18/20 @ 10:43 by Patricia Dougherty NP) Cardiomyopathy Class 2 obesity Gastrointestinal dysmotility Morbid obesity due to excess calories Myotonic dystrophy Surgical History H/O section x 3 H/O right hemicolectomy H/O: hysterectomy S/P laparoscopic appendectomy S/P laparoscopic cholecystectomy Family History Father Diabetes mellitus Mother Hypothyroidism Social History Alcohol Use: None Substance Use: never Review of Systems - BA Constitutional Constitutional: positive Appetite changes, positive Fatigue, negative Fever, negative Malaise, positive Weight gain and positive Weight loss Eyes Eyes: negative Vision changes Cardiovascular Cardiovascular: negative Chest pain - rest, negative Palpitations, negative Syncope, negative Peripheral edema, positive Dizziness, negative Chest pain - exercise, negative Decreased exercise tolerance and negative Exertional dyspnea Respiratory Respiratory: negative Cough, negative Sputum production and negative Shortness of breath Gastrointestinal Gastrointestinal: positive Abdominal pain, positive Bloating, positive Nausea, negative Vomiting, negative Dysphagia, negative Reflux/heartburn, negative Constipation and positive Diarrhea Genitourinary-urologic Genitourinary- urologic: negative Change in urinary system Musculoskeletal Musculoskeletal: negative New joint pain, positive Back pain and positive Muscle weakness Neurologic Neurologic: negative Dizziness, positive Headache and negative Memory problems Psychiatric Psychiatric: negative Anxiety and negative Depression Bariatric HPI HPI HPI Details: 04/24/2020 Fred is a very pleasant 29-year-old white female with a history of class 2 type obesity. she is interested in laparoscopic Manjula-en-Y gastric bypass with Dr. Conklin. Her insurance is [employer] and she will require 6 months of follow-up appointments. Fred reports that she has been obese for greater than 5 years. Her weight today is 258 lb with a BMI of 38.1%. Her health conditions include cardiomyopathy, myoclonic dystrophy, chronic nausea. She has extensive surgical history including cholecystectomy, hemicolectomy 3 years ago, appendectomy, and . She is currently seeing a nutrition assistant for chronic nausea. Fred reports that she has been obese for greater than 5 years. She has attempted weight loss using several methods including portion control, dietary consultation, prescription weight loss medications, and increased exercise with gym membership. She does managed to lose somewhere between 5-20 lb with each attempt but the weight returns when the program ends. She is concerned that her weight will have fact her cardiomyopathy. 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 We discussed the lifestyle changes necessary to incorporate with weight loss surgery including diet and exercise. 06/12/2020: Nutritional consultation weight loss management. 06/19/2020: Psychological evaluation and clearance. 07/18/2020: Today's visit was conducted by telemedicine technology. I verified the patient's identity by full name and date of . I verified that the patient was indeed in [facility]. I did give verbal permission to conduct a telemedicine interview. I did inform the patient of the limitations of telemedicine technology particularly the lack of a physical examination. This appointment took approximately 18 minutes. Corey is a 29-year-old white female whose main problem is that of class 2/3 obesity. She is here because she has been unable to obtain an sustain significant weight loss despite multiple medical attempts. 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 She also has a history of cardiomyopathy and cardiac conduction disorders. Her cardiomyopathy and conduction disorders are presumably secondary to her myotonic dystrophy. She denies diabetes, hypertension, hyperlipidemia, significant gastroesophageal reflux disease, or smoking. She is interested in the sleeve gastrectomy. She completed our bariatric seminar and is interested in the laparoscopic sleeve gastrectomy. Today was my 1st visit with her. I discussed the bariatric program in some detail. We discussed the preoperative evaluation. The patient is more than retirement through this evaluation having seen our psychologist as well as our dietitian and having had 2 visits with our clinical individuals. She will need 3 consecutive monthly visits to qualify for insurance approval. I discussed the importance of postoperative follow-up. Once the patient has recovered from her surgery she will be expected to be seen every 3 months for the 1st year with routine blood testing, every 6 months for the 2nd year with the same blood testing, and once yearly after that with routineblood testing. We discussed the relative risks and benefits of bariatric surgery and compared and contrasted the laparoscopic sleeve gastrectomy with a laparoscopic Manjula-en-Y gastric bypass. The patient remains interested in the sleeve gastrectomy. Her BMI today is approximately 37.6. Her maximum calculated BMI for weight of 260 lb with a hei ght of 5 ft 9 in is 38.4. Because this patient has cardiomyopathy and cardiomyopathy frequently improves with weight loss based on the physiologic changes of improved preload and afterload decreased risk of hypertension and hyperlipidemia I suspect the patient will indeed benefit from surgery. I would like to speak with her fmd teacher, Dr. Roldan, and discuss his feelings about her candidacy for surgery. She will clearly need cardiac clearance prior to surgery. Of note this patient does carry a diagnosis of irritable bowel syndrome. She has been fully evaluated for chronic intermittent nausea. Patient states that she has not been given any diagnosis other than irritable bowel syndrome. However, for due diligence I will need to review all of her studies and possibly even discuss her case with her nutrition assistant. I am concerned that sleeve gastrectomy or gastric bypass could potentially worsen her nausea. Therefore in need to be quite certain that she has no significant gastric problem prior to considering this. The patient understands that necessity 07/27/2020 Corey is a 29-year-old white female with a history of obesity. she is enrolled in [facility] and is interested in laparoscopic sleeve gastrectomy with Dr. Conklin. She is being seen today for her to visit via telemedicine And consents this formencounter. It was confirmed that both patient and provider were in the [facility]. Corey has met with our dietitian x1 and is following the guidelines she provided. She has met with our psychologist and has been cleared to undergo surgery. She does express concern over the difficulty of getting a letter of support from her PCP. She is not sure why he is reluctant to give her a letter of support. However she reports that her fmd teacher is supportive of her decision to undergo bariatric surgery. She is taking vitamin supplements as prescribed. She is getting regularexercise. She was counseled in diet and exercise. 08/2020 Nutritional counseling 09/18/2020 Corey is a pleasant 30-year-old white female with a history of class 2 type obesity. She is being seen today for follow-up appointment via telemedicine and consents this form of encounter. Her weight today is 253 lb with a BMI of 37.5%. Her comorbid conditions include cardiomyopathy. She also has a history of myotonic dystrophy with gastrointestinal dysmotility. She will be following up with Cardiology on Thursday for clearance. She is concerned as her neurologist has expressed some issues with her undergoing weight loss surgery. It is not clear why her neurologist has an issue however, the patient thinks neurology may be concerned that her dysmotility would possibly worsened with sleeve gastrectomy. She has been seen and counseled by our dietitian x2. She is following her nutritional guidelines. She has been seen and cleared by Psychology to proceed with surgery. She was counseled in diet and exercise. Bariatrics Exam Const General: Cooperative, Healthy appearing and Comfortable Orientation: Alert and Oriented x3 HENMT Nose: External nose normal Face and sinus: Normal face exam Eyes General: Appearance normal, both eyes and all related structures Resp Effort Inspection: Normal respiratory effort and Able to speak in complete sentences Neuro General: Alert and Oriented x3 Cognition: Normal cognition Speech: Speech normal Psych Appearance: Grossly normal Mental Status: Mental status grossly normal Speech and Movement: Speech and movement normal Attitude: Cooperative Assessment Plan (AMB) Telemed Service Telemed verbal consent obtained: Yes Telemed service provided via: Video Time spent in minutes: 12 Assessment Plan (1) Class 2 obesity: Status: Acute Code(s): E66.9 - Obesity, unspecified SNOMED Code(s): 683473547077909 Category: Medical Plan: Corey is progressing through our bariatric program. She is interested in sleeve gastrectomy with Dr. Conklin. she has expressed some concerns regarding advice from her neurologist. According to Corey her neurologist is concerned her dysmotility may worsen after sleeve gastrectomy. I will discuss this with Dr. Conklin and have him contact her neurologist for further investigationinto her concerns. She will need cardiology clearance prior to surgery. She has an appointment scheduled for Thursday. She has been seen and cleared by Psychology to proceed with surgery. She has met with our dietitian x2. (2) Myotonic dystrophy: Status: Acute Code(s): G71.11 - Myotonic muscular dystrophy SNOMED Code(s): 161518696 Category: Medical (3) Gastrointestinal dysmotility: Status: Acute Code(s): K92.89 - Other specified diseases of the digestive system SNOMED Code(s): 666248961 Category: Medical (4) H/O right hemicolectomy: Status: Acute Code(s): Z90.49 - Acquired absence of other specified parts of digestive tract SNOMED Code(s): 383941436 Category: Surgical (5) S/P laparoscopic appendectomy: Status: Acute Category: Surgical (6) S/P laparoscopic cholecystectomy: Status: Acute Code(s): Z90.49 - Acquired absence of other specified parts of digestive tract SNOMED Code(s): 705842746 Category: Surgical Problems Did you add a problem (diagnosis code) to the patient?: Yes Medications Patient given information on their new medications: No Coding Level of Care Code 73518 Estab Pt Level 2 Exam Detailed Diagnoses Class 2 obesity E66.9 Myotonic dystrophy G71.11 Gastrointestinal dysmotility K92.89 H/O right hemicolectomy Z90.49 S/P laparoscopic appendectomy S/P laparoscopic cholecystectomy Z90.49 Signed By:Patricia Dougherty <<Signature on File>> Signed Date/Time: 09/18/20 1045 Co-Signer: Sergio Conklin MD Co-Signed Date/Time: 09/19/20 0903 Initializing User: Patricia Dougherty NP 09/18/20 1010 1010 1010 Name Value Range Interpretation Code Description Data Renee rce(s) Supporting Document(s) ID Date Data Source [id number] 08/24/2020 10:27:00 AM EST [facility] [address] [place] [address], [address] [place], [place] [id number] [place] [id number] Fax: Bariatric Nutritional Pre-Op : [phone] Signed Patient: Corey Cortez Acct:[id number] Visit Date: 08/24/20 : 1990 Intake Vital Signs 08/24/20 10:28 Height 5 ft 9 in Weight 255 lb BMI 37.6 Intake Visit Reasons: Nutrition/5of6 Allergies aspirin Allergy (Verified 07/27/20 10:32) metoclopramide [From Reglan] Allergy (Verified 07/27/20 10:32) tramadol Allergy (Verified 07/27/20 10:32) History of Smoking/Tobacco Use: Never Smoker Pneumococcal Vaccine (+65): No Immunizations up to date: Yes PFSH - [place] PFSH - [place] Medical History Cardiomyopathy Gastrointestinal dysmotility Morbid obesity due to excess calories Myotonic dystrophy Surgical History H/O section x 3 H/O right hemicolectomy H/O: hysterectomy S/P laparoscopic appendectomy S/P laparo scopic cholecystectomy Family History Father Diabetes mellitus Mother Hypothyroidism Social History Alcohol Use: None Substance Use: never Bariatrics Nutrition Preop F/U Nutrition Assessment Subjective Information: Corey has lost 5 lbs since her last visit with the dietitian. She has been practicing eating more slowly, chewing foods well, and using smaller plates. She has not been keeping a food journal, suggested she do so. She continues to watch TV while she eats, encouraged her not to do so so she can focus on full feelings better. She is trying to not skip meals as much. She struggles with remembering to not drink with meals. Diet History/Recall: Breakfast: 2 slices wheat toast with butter or nothing Lunch: nothing Dinner:2 eggs and 2 slices turkey kirk Beverages: 30 oz/day water, milk, 12 oz soda Weight Change: -5 BMI class: Obesity class 2 35-39.9 Meal Plan: 1800 kcal/day, 58 - 73 g protein/day, 1800 ml fluids/day Exercise (type/frequency): Playing with kids Labs: none Nutrition Intervention Discussed with Patient: Discussed pre op and post op diet progression Discussed vitamin needs after surgery Discussed protein shakes Discussed good eating habits Handout provided: Yes (pre op post op packets) Monitoring Evaluation Goal for next appointment: Patient will follow diet instructions Patient will tolerate diet stages Patient will consume adequate protein and fluid Patient will take vitamins as directed Patient will maintain good eating habits Follow Up: 2 weeks post op Time spent with patient: 30 minutes Assessment Plan (AMB) Telemed Service Telemed verbal consent obtained: Yes Telemed service provided via: Video Time spent in minutes: 30 Assessment Plan (1) Morbid obesity due to excess calories: Status: Acute Code(s): E66.01 - Morbid (severe) obesity due to excess calories SNOMED Code(s): 264316778 Category: Medical (2) Gastrointestinal dysmotility: Status: Acute Code(s): K92.89 - Other specified diseases of the digestive system SNOMED C ode(s): 398837713 Category: Medical Problems Did you add a problem (diagnosis code) to the patient?: Yes Coding Level of Care Code 33679 Med Nutrition Ind Sub 15 Diagnoses Morbid obesity due to excess calories E66.01 Gastrointestinal dysmotility K92.89 Time Spent (min) 30 Signed By:Maria Esther Ellington <<Signature on File>> Signed Date/Time: 08/24/20 1208 Co-Signer: Co-Signed Date/Time: Initializing User: SADI Huston RD 08/24/20 1027 1027 1027 Name Value Range Interpretation Code Description Data Renee rce(s) Supporting Document(s) ID Date Data Source [id number] 07/27/2020 10:31:00 AM EST [facility] [address] [place] [address]. [address] [place] [address] [place] [address] Fax: Bariatric Progress Note : [phone] Signed Patient: Corey Cortez Acct:[id number] Visit Date: 07/27/20 : 1990 Intake Vital Signs 07/27/20 10:32 Height 5 ft 9 in Weight 115.666 kg BMI 37.6 Comment 255 lbs Intake Patient Status Have you had an UC/ED visit and/or been admitted to the hospital since your last visit?: No Have you been diagnosed with COVID-19?: No Visit Reasons: Weigh In/4of6 Nurse Note: Patient presents for virtual weigh in visit 4 of 6. She is interested in the sleeve withDr. Felipe. Mold Injector Required: No Is patient in pain?: No Primary Care Physician:: Tyrone Garcia Have you smoked within the past year: No Allergies aspirin Allergy (Verified 07/27/20 10:32) metoclopramide [From Reglan] Allergy (Verified 07/27/20 10:32) tramadol Allergy (Verified 07/27/20 10:32) Home Medications - Last Reconciled 07/27/20 by Darío Peace LPN furosemide 20 mg tablet (Lasix) 20 mg PO DAILY Patient understands their medications: Yes Patient given information on their new medications: No History of Smoking/Tobacco Use: Never Smoker Annual Influenza Vaccine: Yes Pneumococcal Vaccine (+65): No Immunizations up to date: Yes Patient or : No Recent Travel Travel Outside of the country in last 30 days?: No Mask given: No PFSH - [place] PFSH - [place] Medical History Cardiomyopathy Gastrointestinal dysmotility Morbid obesity due to excess calories Myotonic dystrophy Surgical History H/O section x 3 H/O right hemicolectomy H/O: hysterectomy S/P laparoscopic appendectomy S/P laparoscopic cholecystectomy Family History Father Diabetes mellitus Mother Hypothyroidism Social History Alcohol Use: None Substance Use: never Review of Systems - BA Constitutional Constitutional: positive Appetite changes, positive Fatigue, negative Fever, negative Malaise and positive Weight gain Eyes Eyes: negative Vision changes Cardiovascular Cardiovascular: negative Chest pain - rest, negative Palpitations, negative Syncope, negative Peripheral edema, positive Dizziness, negative Chest pain - exercise, negative Decreased exercise tolerance and negative Exertional dyspnea Respiratory Respiratory: negative Cough, negative Sputum production and negative Shortness of breath Gastrointestinal Gastrointestinal: positive Abdominal pain, positive Bloating, positive Nausea, negative Vomiting, negative Dysphagia, negative Reflux /heartburn, negative Constipation and positive Diarrhea Musculoskeletal Musculoskeletal: positive New joint pain, positive Back pain and positive Muscle weakness Neurologic Neurologic: negative Dizziness, positive Headache and negative Memory problems Psychiatric Psychiatric: negative Anxiety and negative Depression Bariatric HPI HPI HPI Details: 04/24/2020 Fred is a very pleasant 29-year-old white female with a history of class 2 type obesity. she is interested in laparoscopic Manjula-en-Y gastric bypass with Dr. Conklin. Her insurance is [employer] and she will require 6 months of follow-up appointments. Fred reports that she has been obese for greater than 5 years. Her weight today is 258 lb with a BMI of 38.1%. Her health conditions include cardiomyopathy, myoclonic dystrophy, chronic nausea. She has extensive surgical history including cholecystectomy, hemicolectomy 3 years ago, appendectomy, and . She is currently seeing a nutrition assistant for chronic nausea. Bethreports that she has been obese for greater than 5 years. She has attempted weight loss using several methods including portion control, dietary consultation, prescription weight loss medications, and increased exercise with gym membership. She does managed to lose somewhere between5-20 lb with each attempt but the weight returns when the program ends. She is concerned that her weight will have fact her cardiomyopathy. 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 We discussed the lifestyle changes necessary to incorporate with weight loss surgery including diet and exercise. 06/12/2020: Nutritional consultation weight loss management. 06/19/2020: Psychological evaluation and clearance. 07/18/2020: Today's visit was conducted by telemedicine technology. I verified the patient's identity by full name and date of . I verified that the patient was indeed in [facility]. Idid give verbal permission to conduct a telemedicine interview. I did inform the patient of the limitations of telemedicine technology particularly the lack of a physical examination. This appointment took approximately 18 minutes. Corey is a 29-year-old white female whose main problem is that of class 2/3 obesity. She is here because she has been unable to obtain an sustain significant weight loss despite multiple medical attempts. 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 She also has a history of cardiomyopathy and cardiac conduction disorders. Her cardiomyopathy and conduction disorders are presumably secondary to her myotonic dystrophy. She denies diabetes, hypertension, hyperlipidemia, significant gastroesophageal reflux disease, or smoking. She is interested in the sleeve gastrectomy. She completed our bariatric seminar and is interested in the laparoscopic sleeve gastrectomy. Today was my 1st visit with her. I discussed the bariatric program in some detail. We discussed the preoperative evaluation. The patient is more than retirement through this evaluation having seen our psychologist as well as our dietitian and having had 2 visits with our clinical individuals. She will need 3 consecutive monthly visits to qualify for insurance approval. I discussed the importance of postoperative follow-up. Once the patient has recovered from her surgery she will be expected to be seen every 3 months for the 1st year with routine blood testing, every 6 months for the 2nd year with the same blood testing, and once yearly after that with routineblood testing. We discussed the relative risks and benefits of bariatric surgery and compared and contrasted the laparoscopic sleeve gastrectomy with a laparoscopic Manjula-en-Y gastric bypass. The patient remains interested in the sleeve gastrectomy. Her BMI today is approximately 37.6. Her maximum calculated BMI for weight of 260 lb with a height of 5 ft 9 in is 38.4. Because this patient has cardiomyopathy and cardiomyopathy frequently improves with weight loss based on the physiologic changes of improved preload and afterload decreased risk of hypertension and hyperlipidemia I suspect the patient will indeed benefit from surgery. I would like to speak with her fmd teacher, Dr. Roldan, and discuss his feelings about her candidacy for surgery. She will clearly need cardiacclearance prior to surgery. Of note this patient does carry a diagnosis of irritable bowel syn drome. She has been fully evaluated for chronic intermittent nausea. Patient states that she has not been given any diagnosis other than irritable bowel syndrome. However, for due diligence I will needto review all of her studies and possibly even discuss her case with her nutrition assistant. I am concerned that sleeve gastrectomy or gastric bypass could potentially worsen her nausea. Therefore in need to be quite certain that she has no significant gastric problem prior to considering this. The patient understands that necessity 07/27/2020 Corey is a 29-year-old white female with a history of obesity. she is enrolled in [facility] and is interested in laparoscopic sleeve gastrectomy with Dr. Conklin. She is being seen today for her 4th of 6 to visit via telemedicine And consents this formencounter. It was confirmed that both patient and provider were in the [facility]. Corey has met with our dietitian x1 and is following the guidelines she provided. She has met with our psychologist and has been cleared to undergo surgery. She does express concern over the difficulty of getting a letter of support from her PCP. She is not sure why he is reluctant to give her a letter of support. However she reports that her fmd teacher is supportive of her decision to undergo bariatric surgery. She is taking vitamin supplements as prescribed. She is getting regularexercise. She was counseled in diet and exercise. Bariatrics Exam Const General: Cooperative, Healthy appearing and Comfortable Orientation: Alert and Oriented x3 HENMT Ears: Hearing grossly normal bilaterally Nose: External nose normal Face and sinus: Normal face exam Eyes General: Appearance normal, both eyes and all related structures Resp Effort Inspection: Normal respiratory effort and Able to speak in complete sentences Neuro General: Alert and Oriented x3 Cognition: Normal cognition Speech: Speech normal Psych Appearance: Grossly normal Mental Status: Mental status grossly normal Speech and Movement: Speech and movement normal Attitude: Cooperative Assessment Plan (AMB) Telemed Service Telemed verbal consent obtained: Yes Telemed service provided via: Video Time spent in minutes: 6 Assessment Plan (1) Morbid obesity due to excess calories: Status: Acute Code(s): E66.01 - Morbid (severe) obesity due to excess calories SNOMED Code(s): 312791446 Category: Medical Plan: Corey is being seen today for her 4th visit. She is pursuing bariatric surgery with Dr. Conklin. She is interested in sleeve gastrectomy. She is having difficulty obtaining letter support from her primary care provider. She is wondering if she can ask her fmd teacher for letter of support. I will discuss this with Dr. Conklin. She was instructed to continue taking her vitamin supplements. She was instructed to continue following that nutritional guidelines outlined by our dietitian. She was instructed to make her next appointment in 1 month. (2) Cardiomyopathy: Status: Acute Code(s): I42.9 - Cardiomyopathy, unspecified SNOMED Code(s): 70679518 Category: Medical (3) Myotonic dystrophy: Status: Acute Code(s): G71.11 - Myotonic muscular dystrophy SNOMED Code(s): 527215898 Category: Medical (4) S/P laparoscopic cholecystectomy: Status: Acute Code(s): Z90.49 - Acquired absence of other specified parts of digestive tract SNOMED Code(s): 301396531 Category: Surgical (5) H/O right hemicolectomy: Status: Acute Code(s): Z90.49 - Acquired absence of other specified parts of digestive tract SNOMED Code(s): [id number] Category: Surgical (6) S/P laparoscopic appendectomy: Status: Acute Category: Surgical (7) H/O: hysterectomy: Status: Acute Code(s): Z90.710 - Acquired absence of both cervix and uterus SNOMED Code(s): 918082906 Category: Surgical Problems Did you add a problem (diagnosis code) to the patient?: Yes Medications Patient given information on their new medications: No Coding Level of Care Code 81234 Estab Pt Level 1 Exam Detailed Diagnoses Morbid obesity due to excess calories E66.01 Cardiomyopathy I42.9 Myotonic dystrophy G71.11 S/P laparoscopic cholecystectomy Z90.49 H/O right hemicolectomy Z90.49 S/P laparoscopic appendectomy H/O: hysterectomy Z90.710 Signed By:Patricia Dougherty <<Signature on File>> Signed Date/Time: 07/27/20 1053 Co-Signer: Co-Signed Date/Time: Initializing User: Patricia Dougherty NP 07/27/20 1031 1031 1031 Name Value Range Interpretation Code Description Data Renee rce(s) Supporting Document(s) ID Date Data Source [id number] 07/18/2020 03:00:00 PM EST [facility] [address] [facility], [address] [place], [place] [address] [place] [phone] Fax: Bariatric Progress Note : [id number] Signed Patient: Corey Cortez Acct:[id number] Visit Date: 07/18/20 : 1990 Intake Vital Signs 07/18/20 15:01 Height 5 ft 9 in Weight 115.666 kg BMI 37.6 Intake Patient Status Have you had an UC/ED visit and/or been admitted to the hospital since your last visit?: Yes (for stomach virus) Have you been diagnosed with COVID-19?: No Visit Reasons: Meet the /3of6 Nurse Note: Patient presents for video meet the doctor visit and is self reporting her weight today.She is now interested in the sleeve with Dr. Conklin. Mold Injector Required: No Is patient in pain?: No Primary Care Physician:: Tyrone Garcia Have you smoked within the past year: No Allergies aspirin Allergy (Verified 07/18/20 15:02) metoclopramide [From Reglan] Allergy (Verified 07/18/20 15:02) tramadol Allergy (Verified 07/18/20 15:02) Home Medications - Last Reconciled 07/18/20 by Darío Peace LPN furosemide 20 mg tablet (Lasix) 20 mg PO DAILY Patient understands their medications: Yes Patient given information on their new medications: No History of Smoking/Tobacco Use: Never Smoker Annual Influenza Vaccine: Yes Pneumococcal Vaccine (+65): No Immunizations up to date: Yes Patient or : No Recent Travel Travel Outside of the country in last 30 days?: No Mask given: No PFSH - [place] PFSH - [place] Medical History Cardiomyopathy Gastrointestinal dysmotility Morbid obesity due to excess calories Myotonic dystrophy Surgical History H/O section x 3 H/O right hemicolectomy H/O: hysterectomy S/P laparoscopic appendectomy S/P laparoscopic cholecystectomy Family History Father Diabetes mellitus Mother Hypothyroidism Social History Alcohol Use: None Substance Use: never Review of Systems - BA Constitutional Constitutional: positive Appetite changes, positive Fatigue and positive Weight gain Eyes Eyes: negative Vision changes Cardiovascular Cardiovascular: negative Chest pain - rest, negative Palpitations, negative Syncope, negative Peripheral edema, positive Dizziness, negative Chest pain - exercise, negative Decreased exercise tolerance and negative Exertional dyspnea Respiratory Respiratory: negative Cough, negative Sputum production and negative Shortness of breath Gastrointestinal Gastrointestinal: positive Abdominal pain, positive Bloating, positive Nausea, negative Vomiting, negative Dysphagia, negative Reflux/heartburn, negative Co nstipation and positive Diarrhea Musculoskeletal Musculoskeletal: positive New joint pain, positive Back pain and positive Muscle weakness Neurologic Neurologic: negative Dizziness, positive Headache and negative Memory problems Psychiatric Psychiatric: negative Anxiety and negative Depression Bariatric HPI HPI HPI Details: 04/24/2020 Fred is a very pleasant 29-year-old white female with a history of class 2 type obesity. she is interested in laparoscopic Manjula-en-Y gastric bypass with Dr. Conklin. Her insurance is [employer] and she will require 6 months of follow-up appointments. Fred reports that she has been obese for greater than 5 years. Her weight today is 258 lb with a BMI of 38.1%. Her health conditions include cardiomyopathy, myoclonic dystrophy, chronic nausea. She has extensive surgical history including cholecystectomy, hemicolectomy 3 years ago, appendectomy, and C- section. She is currently seeing a nutrition assistant for chronic nausea. Bethreports that she has been obese for greater than 5 years. She has attempted weight loss using several methods including portion control, dietary consultation, prescription weight loss medications, and increased exercise with gym membership. She does managed to lose somewhere between5-20 lb with each attempt but the weight returns when the program ends. She is concerned that her weight will have fact her cardiomyopathy. 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 We discussed the lifestyle changes necessary to incorporate with weight loss surgery including diet and exercise. 06/12/2020: Nutritional consultation weight loss management. 06/19/2020: Psychological evaluation and clearance. 07/18/2020: Today's visit was conducted by telemedicine technology. I verified the patient's identity by full name and date of . I verified that the patient was indeed in [facility]. I did give verbal permission to conduct a telemedicine interview. I did inform the patient of the limitations of telemedicine technology particularly the lack of a physical examination. This appointment took approximately 18 minutes. Corey is a 29-year-old white female whose main problem is that of class 2/3 obesity. She is here because she has been unable to obtain an sustain significant weight loss despite multiple medical attempts. 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 She also has a history of cardiomyopathy and cardiac conduction disorders. Her cardiomyopathy and conduction disorders are presumably secondary to her myotonic dystrophy. She denies diabetes, hypertension, hyperlipidemia, significant gastroesophageal reflux disease, or smoking. She is interested in the sleeve gastrectomy. She completed our bariatric seminar and is interested in the laparoscopic sleeve gastrectomy. Today was my 1st visit with her. I discussed the bariatric program in some detail. We discussed the preoperative evaluation. The patient is more than retirement through this evaluation having seen our psychologist as well as our dietitian and having had 2 visits with our clinical individuals. She will need 3 consecutive monthly visits to qualify for insurance approval. I discussed the importance of postoperative follow-up. Once the patient has recovered from her surgery she will be expected to be seen every 3 months for the 1st year with routine blood testing, every 6 months for the 2nd year with the same blood testing, and once yearly after that with routineblood testing. We discussed the relative risks and benefits of bariatric surgery and compared and contrasted the laparoscopic sleeve gastrectomy with a laparoscopic Manjula-en-Y gastric bypass. The patient remains interested in the sleeve gastrectomy. Her BMI today is approximately 37.6. Her maximum calculated BMI for weight of 260 lb with a height of 5 ft 9 in is 38.4. Because this patient has cardiomyopathy and cardiomyopathy frequently improves with weight loss based on the physiologic changes of improved preload and afterload decreased risk of hypertension and hyperlipidemia I suspect the patient will indeed benefit from surgery. I would like to speak with her fmd teacher, Dr. Roldan, and discuss his feelings about her candidacy for surgery. She will clearly need cardiac clearance prior to surgery. Of note this patient does carry a diagnosis of irritable bowel syndrome. She has been fully evaluated for chronic intermittent nausea. Patient states that she has not been given any diagnosis other than irritable bowel syndrome. However, for due diligence I will need to review all of her studies and possibly even discuss her case with her nutrition assistant. I am concerned that sleeve gastrectomy or gastric bypass could potentially worsen her nausea. Therefore in need to be quite certain that she has no significant gastric problem prior to considering this. The patient understands that necessity Bariatrics Exam Exam Exam Details: No examination was conducted today due to the telemedicine nature of the visit. Assessment Plan (AMB) Assessment Plan (1) Morbid obesity due to excess calories: Status: Acute Code(s): E66.01 - Morbid (severe) obesity due to excess calories SNOMED Code(s): 021305153 Category: Medical Patient Instructions: This patient has class 2/3 obesity with comorbid conditions. She is progressing through our bariatric program. She has been seen and counseled by our dietitian. She has been seen and cleared by our psychologist. I discussed the 3 phases of the bariatric program in detail with her. We discu ssed the preoperative evaluation phase. I discussed the postoperative follow-up phase and stressed the importance of close clinical follow-up. We discussed the pros and cons of laparoscopic sleeve gastrectomy with gastric bypass. She will need cardiac clearance. I would like to see if her fmd teacher feels that weight loss would be beneficial to her. I will also need her GI workup to make sure there was no significant abnormalities before we can consider bariatric surgery. The patient was instructed to follow up for her 3 consecutive monthly visits. If she can do that and I can answer the 2 questions above she should be eligible for insurance submission and surgery. (2) Gastrointestinal dysmotility: Status: Acute Code(s): K92.89 - Other specified diseases of the digestive system SNOMED Code(s): 409872552 Category: Medical (3) Myotonic dystrophy: Status: Acute Code(s): G71.11 - Myotonic muscular dystrophy SNOMED Code(s): 851388537 Category: Medical (4) Cardiomyopathy: Status: Acute Code(s): I42.9 - Cardiomyopathy, unspecified SNOMED Code(s): 70201105 Category: Medical Problems Did you add a problem (diagnosis code) to the patient?: Yes Medications Patient given information on their new medications: No Coding Level of Care Code 58083 Estab Pt Level 3 Diagnoses Morbid obesity due to excess calories E66.01 Gastrointestinal dysmotility K92.89 Myotonic dystrophy G71.11 Cardiomyopathy I42.9 Signed By:Sergio Conklin MD <<Signature on File>> Signed Date/Time: 07/18/20 165 Co-Signer: Co-Signed Date/Time: Initializing User: Sergio Conklin MD 07/18/20 1500 1500 1500 Name Value Range Interpretation Code Description Data Renee rce(s) Supporting Document(s) ID Date Data Source [id number] 07/15/2020 07:08:00 PM EST [facility] 1 OrderSheet [facility] Emergency Department [address] [place] [address] Phone #: ext- [phone] 07/15/2020 19:08 Patient: COREY CORTEZ Sex: F : 1990 Age: 29yWEIGHT:113.3 kg (S) HEIGHT:69 inches (S) BMI:36.9ALLERGIES: Apririn causes trouble breathing, Reglan causes syncope, Tramadol causes seizuresCHIEF COMPLAINT: abdominal painDIAGNOSIS: Abdominal painLAB ORDERSOrder Description Priority Entered Acknowledged InitialedUrinalysis (Clean STAT 19:43 07/15/2020 Cancelled: Unable to Collect 22:01Catch) Hernandez Torres R.N. Physician;CBC w Diff STAT 19:43 07/15/2020 19:53 Paulino Doherty R.N. Physician;CMP STAT 19:43 07/15/2020 19:53 Paulino Doherty R.N. Physician;Lipase STAT 19:43 07/15/2020 19:53 Paulino Doherty R.N. Physician;DIAGNOSTIC STUDY ORDERSOrder Description Priority Entered Acknowledged InitialedCT ABD PEL W/O STAT :43 07/15/2020 19:53 Bessy,Oral W/O IV Paulino Ng R.N.Contrast Physician;(Oxygen?(No))(IV?(Yes)) Reason for Study: Abdominal PainMEDICATION/IV/DRIP/FLUID ORDERSOrder Description Priority Entered Acknowledged InitialedIV NS : Bolus 1000 19:43 07/15/2020 20:10 Bessy,mL, then 125 mL/hr Paulino Ng R.N.(can be titrated per Physician;additionalphysicianinstruction)Ofirmev IV 1000 mg 19:43 07/15/2020 21:01 Bessy, 2 OrderSheet [facility] Emergency Department [address] [place] [address] Phone #: ext- [phone] 07/15/2020 19:08 Patient: COREY CORTEZ Sex: F : 1990 Age: 29y(NOW x1, Infuse Paulino Ng R.N.over 15 minutes) Physician;GENERAL ORDERSOrder Description Priority Entered Acknowledged InitialedSaline Lock 19:43 07/15/2020 19:53 Paulino Doherty R.N. Physician;[Electronically signed by Hernandez Doherty R.N. (22:10 07/15/2020)][El ectronically signed by Paulino Castellanos (22:58 07/15/2020)][Electronically locked by Hernandez Doherty R.N. (22:10 07/15/2020)] Name Value Range Interpretation Code Description Data Renee rce(s) Supporting Document(s) ID Date Data Source [id number] 07/15/2020 07:08:00 PM [facility] 1 Medication Reconciliation Report [facility] Emergency Department [address] [place] [address] Phone #: ext- [phone] 07/15/2020 19:08 Patient: COREY CORTEZ Sex: F : 1990 Age: 29yWeight: 113.3 kgHeight/Length: 69 in.BMI: 36.9ALLERGIES: Apririn causes trouble breathing, Reglan causes syncope, Tramadol causes seizuresThe patient's Home Medications are listed below:THE FOLLOWING MEDICATIONS NEED TO BE RECONCILED: Lasix Oral 20 mg, daily TUMS PRN last dose 2 pmThe source(s) of the original Home Medication information:patientThe following Medications were given to the patient in the Emergency Department:IV NS IV Fluids bolus 0, then 1000 mL/hr, administered: 20:10 07/15/2020ofirmev IVPB bolus 0, then 1 gram, administered: 20:46 07/15/2020IV NS IV Fluids bolus 0, then 125 mL/hr, administered: 21:28 07/15/2020The following Medications were prescribed to the patient:None. Name Value Range Interpretation Code Description Data Renee rce(s) Supporting Document(s) ID Date Data Source [id number] 07/15/2020 07:08:00 PM [facility] 1 Medication Administration Record [facility] Emergency Department [address] [place] [address] Phone #: ext- [phone] 07/15/2020 19:08 Patient: COREY CORTEZ Sex: F : 1990 Age: 29yWeight: 113.3 kgHeight/Length: 69 inBMI: 36.9ALLERGIES: Apririn causes trouble breathing, Reglan causes syncope, Tramadol causes seizures Date/Time Medication Administered Medication OrderedStart IV NS IV NS : Bolus 1000 mL, then 57442:10 07/15/2020 Dose: IV Fluids mL/hr (can be titrated Hernandez Salas RKariN. Rate: 1000 mL/hr over 1 hour(s) additional physician instruction)---- Dispensed: 1000 mL bagStop Site: #1 right AC21:28 07/15/2020Hernandez Doherty RKariNKariStart IV NS IV NS : Bolus 1000 mL, then 69897:28 07/15/2020 Dose: IV Fluids mL/hr (can be titrated Hernandez Salas R.NKari Rate: 125 mL/hr over 8 hour(s) additional physician instruction)---- Dispensed: 1000 mL bagStop Site: #1 right AC21:52 07/15/2020Hernandez Doherty RKariNKariStart ofirmev * Ofirmev IV 1000 mg (NOW x1,20:46 07/15/2020 Dose: 1 gram * IVPB Infuse over 15 minutes)Hernandez Doherty RKariNKari----Stop21:02 07/15/2020Hernandez Doherty RKariNKari Name Value Range Interpretation Code Description Data Renee rce(s) Supporting Document(s) ID Date Data Source [id number] 07/15/2020 07:08:00 PM EST [facility] 1 General Instructions [facility] Emergency Department [address] [place] [address] Phone #: ext- [phone] 07/15/2020 19:08 Patient: COREY CORTEZ Sex: F : 1990 Age: 29yAcute right upper quadrant abdominal pain. (Unclear etiology).INSTRUCTIONSDrink plenty of fluids.(Consider outpatient COVID testing at an Urgent Care or [facility] if a more rapid return of results isdesired.).Warnings: Further evaluation is necessary.Follow-up:Follow up with a nutrition assistant if not better. Call for an appointment. Reason for referral: evaluation,treatment and Upper abdominal pain - consider endoscopy / colonoscopy. Follow up with your doctor intwo days if not better. Call for an appointment. Reason for referral: evaluation, treatment and RUQabdominal pain - Unclear etiology.Understanding of the discharge instructions verbalized by patient. ADDITIONAL INFORMATIONUnknown Causes of Abdominal Pain (Female) 2 General Instructions [facility] Emergency Department [address] [place] [address] Phone #: ext- [phone] 07/15/2020 19:08 Patient: COREY CORTEZ Sex: F : 1990 Age: 29yThe exact cause of your belly (abdominal) pain is not clear. This does not mean that this is somethingto worry about. Everyone likes to know the exact cause of the problem. But sometimes with bellypain, there is no clear- cut cause, and this could be a good thing. The good news is that yoursymptoms can be treated, and you will feel better.Your condition does not seem serious now. But sometimes the signs of a serious problem may takemore time to appear. For this reason, it is important for you to watch for any new symptoms,problems, or worsening of your condition.Over the next few days, the abdominal pain may c ome and go. Or it may be constant. Other commonsymptoms can include nausea and vomiting. Sometimes it can be difficult to tell if you feel nauseous.You may just feel bad and not connect that feeling to nausea. Constipation, diarrhea, and a fever maygo along with the pain.The pain may continue even if treated correctly over the following days. Depending on how things go,sometimes the cause can become clear and may need more or different treatment. Additionalevaluations, medicines, or tests may also be needed.Home careYour healthcare provider may prescribe medicine for pain, symptoms, or an infection. Follow thehealthcare provider's instructions for taking these medicines. 3 General Instructions [facility] Emergency Department [address] [place] [address] Phone #: ext- [phone] 07/15/2020 19:08 Patient: COREY CORTEZ Sex: F : 1990 [facility]: 29[facility] Rest as much as you can until your next exam. No strenuous activities. Try to find positions that ease discomfort. A small pillow placed on the abdomen may help relieve pain. Something warm on your abdomen (such as a heating pad) may help, but be careful not to burn yourself.Diet Don't force yourself to eat, especially if having cramps, vomiting, or diarrhea. Water is important so you don't get dehydrated. Soup may also be good. Sports drinks may also help, especially if they are not too acidic. Don't drink sugary drinks as this can make things worse. Take liquids in small amounts. Don't guzzle them. Caffeine sometimes makes the pain and cramping worse. Don't take dairy products if you have vomiting or diarrhea. Don't eat large amounts at a time. Wait a few minutes between bites. Eat a diet low in fiber (called a low-residue diet). Foods allowed include refined breads, white rice, fruit and vegetable juices without pulp, tender meats. These foods will pass more easily through the intestine. Don't have whole-grain foods, whole fruits and vegetables, meats, seeds and nuts, fried or fatty foods, dairy, alcohol and spicy foods until your symptoms go away.Follow-up careFollow up with your healthcare provider, or as advised, if your pain does not begin to improve in thenext 24 hours.Call 911Call 911 if any of these occur: Trouble breathing Confusion Fainting or loss of consciousness Rapid heart rate 4 General Instructions [facility] Emergency Department [address] [place] [address] Phone #: esr- [phone] 07/15/2020 19:08 Patient: COREY CORTEZ Sex: F : 1990 Age: 29y SeizureWhen to seek medical adviceCall your healthcare provider right away if any of these occur: Pain gets worse or moves to the right lower abdomen New or worsening vomiting or diarrhea Swelling of the abdomen Unable to pass stool for more than 3 days Fever of 100.4F (38C) or higher, or as directed by your healthcare provider. Blood in vomit or bowel movements (dark red or black color) Yellow color of eyes and skin (jaundice) Weakness, dizziness Chest, arm, back, neck, or jaw pain Unexpected vaginal bleeding or missed period Can't keep down liquids or water and you are getting dehydrated [id number] [employer]. [address] [place] [address]. All rights reserved. This information is not intended as asubstitute for professional medical care. Always follow your healthcare professional's instructions. You have been given the following additional information: Abdominal Pain, Unknown Cause, (Female)(Electronically signed by Paulino Castellanos, Physician 07/15/2020 22:58) Name Value Range Interpretation Code Description Data Renee rce(s) Supporting Document(s) ID Date Data Source [id number] 07/15/2020 07:08:00 PM EST [facility] 1 Clinical Report - Nurses [facility] Emergency Department [address] [place] [address] Phone #: [phone]- [phone] 07/15/2020 19:08 Patient: COREY CORTEZ Sex: F : 1990 Age: 29yTRIAGEArrived by private vehicle. Historian: patient.Triage time: 19:15 07/15/2020. Acuity: LEVEL 3.Chief Complaint: ABDOMINAL PAIN.Onset was gradual. Symptoms are constant and still present (3 days ago). She has had abdominal pain.The pain is described as located in the RUQ and radiating to the back.Treatment TOBACCO STEMMER:(Advil).SEPSIS SCREEN: SIRS SCREEN NEGATIVE. SEPSIS SCREEN NEGATIVE. No suspected or confirmedsigns of infection present. --19:21 07/15/20 Watson Sepulveda RN19:15 07/15/20. BP: 98/61 (large adult cuff) taken on the right arm, via an automated monitor, while lying.MAP: 73. HR: 74 (regular, normal rate and strong). RR: 16 (regular, unlabored and normal). O2 saturation:99% on room air. Temp: 98.8 F (oral). Pain level now: 10. --19:21 07/15/20 Watson Sepulveda RN.Weight: 113.3 kg stated. Height/Length: 69 inches Per Patient. BMI: 36.9. --19:18 07/15/20 [employer].MedicationsLasix Oral 20 mg, daily. TUMS PRN last dose 2 pm. --19:16 07/15/20 Watson Sepulveda RN.AllergiesApririn causes trouble breathing.Reglan causes syncope. --19:16 07/15/20 Watson Sepulveda RNTramadol causes seizures. --19:16 07/15/20 Watson Sepulveda RN.PROBLEMS:Gallstone(s).Peptic Ulcer Disease.Gastroesophageal Reflux Disease.Hypothyroidism.Myotonic dystriophy.Heart Disease.Hiatal Hernia. --19:17 07/15/20 Watson Sepulveda RNSyncope. 2 Clinical Report - Nurses [facility] Emergency Department [address] [place] [address] Phone #: ext- [phone] 07/15/2020 19:08 Patient: COREY CORTEZ Sex: F : 1990 Age: 29yUTI - Urinary Tract Infection.Pelvic Pain.Myotonic dystrophy.GI Disease.Gastritis.Gastrodysmobility.GI Issues. --20:03 07/15/20 Hernandez Doherty R.N.The following entry was modified by Watson Sepulveda RN, 19:17 07/15/20Cardiomyopathy. --19:17 07/15/20 Watson Sepulveda RN.Medication/allergy information source: the patient. --19:21 07/15/20 Watson Sepulveda RN.ADDITIONAL SURGERIES:Appendectomy.Carcinoid tumor removed.Cholecystectomy..Endoscopy.Hemicolectomy.Hysterectomy.Left arm surgery.Right hemicolectomy.Tubal Ligation.Upper Endoscopy. --20:04 07/15/20 Hernandez Doherty R.N.HistoryPAST MEDICAL HX: The patient has had a hysterectomy.SOCIAL HX: Never smoker. No alcohol use or drug use. No recent travel. No known contact with a sickindividual. She was offered HIV testing but declined and hepatitis C testing but declined. She has nottraveled outside the [place]Infectious disease exposure: No infectious disease exposure.SELF HARM ASSESSMENT: Self harm assessment was performed. The patient answered "no" to thequestion(s) "Have you recently felt down, depressed, or hopeless?", "Do you have thoughts of harming orkilling yourself?", "Do you have a plan for harming or killing yourself?", "Have you recently had thoughtsabout harming or killing others?", "Do you have any dangerous items in your possession?", "Have younoticed less interest or pleasure in doing things?", "Are you here because you tried to hurt yourself?" and"Have you ever tried to hurt yourself before today?".ABUSE ASSESSMENT: No report of abuse.FALL RISK ASSESSMENT: Fall risk assessment completed. No risk factors identified. --19:07/15/20reanna Sepulveda RN. 3 Clinical Report - Nurses [facility] Emergency Department [address] [place] [address] Phone #: ext- [phone] 07/15/2020 19:08 Patient: COREY CORTEZ Sex: F : 1990 Age: 29y Assessment The patient states feels the same. --19:07/15/20 Watson Sepulveda RN.PHYSICAL EKIXEXQOCR01:24 07/15/20. Ambulatory to room. Patient gowned.GENERAL / NEURO / PSYCH: Alert. Oriented X 4. Appears in no acute distress.HEENT: Mucous membranes are pink.RESPIRATORY: Respirations not labored. Breath sounds within normal limits.CVS: Capillary refill less than 2 seconds.GI / : Abdomen soft and nontender. Abdominal tenderness in the right upper quadrant. Bowel soundswithin normal limits.SKIN: Skin is warm and dry. --19:07/15/20 Hernandez Doherty R.N.NURSING PROGRESS NOTESPatient gowned. Head of bed elevated 30 degrees. Reassurance given. Call light placed in reach.Bed placed in lowest position. Brakes of bed on. ( Patient has been texting on phone since arrival).--19:07/15/20 Watson Sepulveda RN 19:48 07/15/2020 Site #1 started via IV in the right antecubital space with an 20g angiocath, with aseptic technique and good blood return; one attempt. Saline lock flushed with 10 mL saline. --19:53 07/15/20 Hernandez Doherty R.N. 20:10 07/15/2020 Started bag #1 1000 mL IV Fluids IV NS; at 1000 mL/hr over 1 hour(s) via site #1 via IV pump. Allergies verified and confirmed 5 rights. IV patency established. IV site checked: no pain, redness, or swelling. IV flushed thoroughly pre- and post- medication administration. Information reviewed with patient including reason for taking this medication, signs of allergic reaction and precautions. Verbalizes understanding. --20:10 07/15/20 Hernandez Doherty R.N. 20:46 07/15/2020 [facility] * IVPB 1 gram --21:01 07/15/20 Hernandez Doherty R.N. 21:02 07/15/2020 [facility] IVPB Discontinued: bag #1 completed. Total amount infused: 100 mL. IV patency established. IV site checked: no pain, redness, or swelling. IV flushed thoroughly. --21:02 07/15/20 Hernandez Doherty R.N. 21:03 07/15/20. Reassurance given. Reassessment acuity: LEVEL 3. The patient reports no complaints and she is calm and resting quietly. Overall patient status is improved- she states feels better. Two patient identifiers checked. Call light placed in reach. Bed placed in lowest position. Brakes of bed on. --21:03 07/15/20 Hernandez Doherty R.N. 21:27 07/15/20. ( patient cannot urinate at this time to give urine sample). --21:28 07/15/20 Hernandez Doherty R.N. 21:28 07/15/2020 Started bag #2 1000 mL IV Fluids IV NS; at 125 mL/hr over 8 hour(s) via site #1 via IV 4 Clinical Report - Nurses [facility] Emergency Department [address] [place] [address] Phone #: ext- [phone] 07/15/2020 19:08 Patient: COREY CORTEZ Sex: F : 1990 Age: 29y pump. Allergies verified and confirmed 5 rights. IV patency established. IV site checked: no pain, redness, or swelling. IV flushed thoroughly pre- and post- medication administration. Information reviewed with patient including reason for taking this medication, signs of allergic reaction and precautions. Verb alizes understanding. --21:28 07/15/20 Hernandez Doherty R.N. 21:28 07/15/2020 IV Fluids IV NS via IV site #1 Discontinued: bag #1 completed. Total amount infused: 1000 mL. IV patency established. IV site checked: no pain, redness, or swelling. IV flushed thoroughly. --21:28 07/15/20 Hernandez Doherty R.N. 21:52 07/15/2020 IV Fluids IV NS via IV site #1 Discontinued: bag #2 infused upon discharge. Total amount infused: 75 mL. --21:52 07/15/20 Hernandez Doherty R.N.DISPOSITION / DISCHARGE 21:57 07/15/20. Condition at departure: improved and stable. The goals identified in the patient's plan of care were met. Fall risk assessment completed. No risk factors identified. No learning barriers present. Discharge instructions provided and reviewed with the patient. Reviewed warnings. Reviewed medication(s). Treatments reviewed. Reviewed referral to a nutrition assistant and primary care physician. Patient verbalized understanding. Written instructions provided in Palestinian. The patient was discharged by the [facility]. She was discharged home. She left ambulatory and via taxi. --22:07/15/20 Hernandez Doherty R.N. 22:01 07/15/2020 Site #1 removed upon discharge. Catheter intact. Bandage applied. --22:07/15/20 Hernandez Doherty R.N. 22:00 07/15/20. BP: 91/57. MAP: 68. HR: 61. RR: 16. O2 saturation: 96%. Temp: 97.7 F. Pain level now: 0/10. --22:07/15/20 Hernandez Doherty R.N.Locked/Released at 07/15/2020 22:10 by Hernandez Doherty R.N. Name Value Range Interpretation Code Description Data Renee rce(s) Supporting Document(s) ID Date Data Source [id number] 07/15/2020 07:08:00 PM [facility] 1 Clinical Report - Physicians/Mid Levels [facility] Emergency Department [address] [place] [address] Phone #: ext- [phone] 07/15/2020 19:08 Patient: COREY CORTEZ Sex: F : 1990 Age: 29y Time Seen: 19:05 07/15/2020. Arrived- By private vehicle. Historian- patient. Disposition decision: 21:56 07/15/2020.HISTORY OF PRESENT ILLNESS Chief Complaint: ABDOMINAL PAIN. This started 3 days ago and is still present. It is described as "pain", cramping, migrating and well localized and it is described as located in the right abdomen and radiating to the right flank. When seen in the E.D., severity described as 6 / 10. Modifying factors- worsened by movement, walking, cough and deep breaths. The patient has had nausea. No loss of appetite, vomiting or diarrhea. No recent travel. Similar symptoms previously. Patient has had similar symptoms several times, occasionally. Recent medical care: Not recently seen/assessed.REVIEW OF SYSTEMSNo constipation, black stools, hematemesis, difficulty with urination or pain with urination. No urinar yfrequency, fever, headache, sore throat or blurred vision. No chest pain, difficulty breathing, cough, jointpain or skin rash. No chills or back pain. Denies current . The patient has not had weightloss.PAST HISTORYPast history not negative. See nurses notes. Heart disease. Other disease. GallstonesPeptic ulcer diseaseGERDHypothyroidMyotonic dystrophyHHSyncopeUTIPelvic painGI diseaseGastritisGastric dysmotilityCardiomegalyAV Block. Surgeries: Appendectomy. . Cholecystectomy. Endoscopy. Hysterectomy. Tubal ligation. (Removed Carcinoid tumor R Hemicolectomy 2 Clinical Report - Physicians/Mid Levels [facility] Emergency Department [address] [place] [address] Phone #: ext- [phone] 07/15/2020 19:08 Patient: COREY CORTEZ Sex: F : 1990 Age: 29y L arm surgery).SOCIAL HISTORYNever smoker. No alcohol use or drug use. No recent travel.ADDITIONAL NOTESThe nursing notes have been reviewed with agreement regarding the chief complaint, HPI, ROS, PMH andpatient medications and allergies.PHYSICAL EXAMVital Signs: 07/15/2020 19:15 BP: lying 98/61. MAP: 73. HR: 74. RR: 16. O2 saturation: 99% on room air.Temp: 98.8 F. Pain level now: 10. Have been reviewed and appear to be correct. Hypotensive. Meanarterial pressure- normal. Heart rate normal. Respiratory rate normal. Temperature normal. Oxygensaturation normal.Appearance: Alert. Oriented X3. Anxious. Appears to be in pain. Patient in mild distress. In distress.Eyes: Pupils equal, round and reactive to light. Eyes inspection not normal. Pale conjunctivae.ENT: Nose normal. Pharynx normal.Neck: Normal inspection. Neck supple.CVS: Normal heart rate and rhythm. Heart sounds normal. Pulses normal.Respiratory: No respiratory distress. Painless inspiration. Breath sounds normal. Chest nontender.Abdomen: Soft. Moderate tenderness in the right upper quadrant and right side of the abdomen. Bowelsounds normal. No organomegaly. No mass. Tenderness present.Back: Abnormal inspection. Mild CVA tenderness on the right.Skin: Skin warm and dry. Pallor. Abnormal skin color. No rash. Normal skin turgor.Extremities: Extremities exhibit normal ROM. No lower extremity edema.Neuro: Oriented X 3. No motor deficit. No sensory deficit.LABS, X-RAYS, AND EKGLaboratory Tests: Laboratory tests have been ordered, with results reviewed and considered in themedical decision making process. Urinalysis: (DEON: 07/15/2020 19:43) ( MsgRcvd 07/15/2020 22:01) Canceled SOURCE: Clean Catch CBC w Diff: (DEON: 07/15/2020 20:20) ( MsgRcvd 07/15/2020 21:05) Final results Test Result Flag Units (Reference) CBC W/AUTOMATED DIFF COMPLETE BLOOD COUNT WBC 4.9 10/uL (4.2 - 11.0) RBC 4.88 10/uL (4.20 - 5.40) HEMOGLOBIN 15.9 g/dL (12.0 - 16.0) HEMATOCRIT 48.4 H % (37.0 - 47.0) MCV 99.2 fL (81.0 - 101) MCH 32.6 pg (27.0 - 34.0) MCHC 32.9 g/dL (31.0 - 36.0) RDW 12.8 % (11.5 - 14.5) PLATELETS 154 10/uL (150 - 450) 3 Clinical Report - Physicians/Mid Levels [facility] Emergency Department [address] [place] [address] Phone #: ext- [phone] 07/15/2020 19:08 Patient: COREY CORTEZ Sex: F : 1990 Age: 29y MPV 11.5 H fL (7.4 - 10.4) NEUT 60.8 % (37.0 - 80.0) LYMPH 30.3 % (25.0 - 40.0) MONO 6.5 % (3.0 - 8.0) EOS 1.2 % (0.0 - 7.0) BASO 0.8 % (0.0 - 2.5) %IG 0.4 H % (0.0 - 0.0) %NRBC 0.0 % (0.0 - 0.0) #NEUT 2.97 10/uL (2.00 - 6.90) #LYMPH 1.48 10/uL (0.60 - 3.40) #MONO 0.32 10/uL (0.00 - 0.90) #EOS 0.06 10/uL (0.00 - 0.70) #BASO 0.04 10/uL (0.00 - 0.20) #IG 0.02 10/uL (0.00 - 0.10) #NRBC 0.00 10/uL (0.00 - 0.00) MANUAL DIFF NOT INDICATED RBC MORPH NOT INDICATEDCMP: (DEON: 07/15/2020 20:45) ( MsgRcvd 07/15/2020 21:27) Final results Test Result Flag Units (Reference) COMPREHENSIVE METABOLIC PANEL COMPREHENSIVE METABOLIC PANEL SODIUM 141 mEq/L (134 - 153) POTASSIUM 4.1 mEq/L (3.6 - 5.0) CHLORIDE 105 mEq/L (98 - 107) CO2 27 MEQ/L (22 - 30) GLUCOSE 75 MG/DL (65 - 110) BUN 10 MG/DL (7 - 21) CREATININE 0.6 L MG/DL (0.7 - 1.5) BUN/CREAT 17 (8 - 27) TOTAL PROTEIN 6.6 G/DL (6.3 - 8.2) ALBUMIN 4.2 G/DL (3.9 - 5.0) GLOBULIN 2.4 GM/DL (2.4 - 3.2) A/G RATIO 1.8 (0.8 - 2.0) CALCIUM 9.4 MG/DL (8.4 - 10.2) TOTAL BILI <0.7 MG/DL (0.2 - 1.3) ALKALINE PHOS 99 U/L (38 - 126) SGOT/AST 51 H U/L (5 - 40) SGPT/ALT 54 U/L (7 - 56) ANION GAP 9.0 mmol/L (8.0 - 16.0) AGE 29 yrs NON-AA GFR >60 mL/min AFR AMER GFR >60 mL/min Male GFR Interprentation 20-49 yrs >60 mL/min Ffreie58-70 yrs >56 mL/min Normal 60-69 yrs >49 mL/min Normal 70-79yrs>42 mL/min Normal 80 and above >35 mL/min Normal Female GFRInterpretation 20-39 yrs >60 mL/min Normal 40-49 yrs >58 mL/minNormal 50-59 yrs >51 mL/min Normal 60-69 yrs >45 mL/min Ryrsjq35-59 yrs >39 mL/min Normal 80 and above >32 mL/min NormalLipase: (DEON: 07/15/2020 20:45) ( MsgRcvd 07/15/2020 21:24) Final results Test Result Flag Units (Reference) LIPASE 19 U/L (13 - 60)CT ABD PEL W/O Oral W/O IV Contrast: (DOEN: 07/15/2020 19:43) ( MsgRcvd 07/15/2020 21:36)Final resultsCT ABD 4 Clinical Report - Physicians/Mid Levels [facility] Emergency Department [address] [place] [address] Phone #: ext- [phone] 07/15/2020 19:08 Patient: COREY CORTEZ Sex: F : 1990 Age: 29yReason(s): Abdominal PainTRANSPORTATION: WC IV? IV?(Yes) O2? Oxygen?(No) Ro Exam CT ABD //T// PELV W/O ORAL W/[place] [address] ---------NAME--------- NUMBER SEX AGE ADMIT DISC. XRAY# F/C TYPE ELI Long [id number] F 29 07/15/20 [id number] X6B E/R DATE OF : 1990 M/R# [id number] #: [id number] TR-03 LOCATION: EMERGENCY DEPT TRANSCRIBED: 07/15/20 21:[address] ABD //T// PELV W/[place] ORAL W/[place] [id number] COMPLETED:07/15/20 21:36 marsha 981 Reason(s): Abdominal Pain PHYSICIAN: ERNA PRIETO R A D I O L O G Y R E P O R T PATIENT HISTORY: RIGHT SIDED ABD PAIN HYSTERECTOMY EST DLP-1462.9mGy*cm ACTUAL DLP-1465.4mGy*cm Time Out performed. Correct patient with 2 identifiers, type and amount of contrast used, correct body part and side all verified prior to examination. BEM / CORONAL (DICOM Hx) CT Abdomen/Pelvis History: RIGHT SIDED ABD PAIN HYSTERECTOMY EST DLP-1462.9mGy*cm ACTUAL DLP-1465.4mGy*cm Time Out performed. Correct patient with 2 identifiers, type and amount of contrast used, correct body part and side all verified prior to examination. BEM (Hx) / CORONAL (DICOM Hx) Technique: CT ABD //T// PELV W/O ORAL W/O IV Dose length product (mGy-cm): Not provided Reformations: None Contrast: Without Co mparison: No comparison study provided. Findings: Hysterectomy with minimal fluid in pelvis. No abscess. The exam demonstrates a cholecystectomy. There is normal appearing stomach, liver, pancreas and bilateral adrenal glands. Normal appearing spleen is noted. Unremarkable large and small bowel loops. Normal appearing spleen is noted. The kidneys appear normal. The bladder appears normal. Appendectomy. Scattered minor atelectasis versus minor pleural parenchymal scarring noted in the lungs. There is no aggressive spine lesion. IMPRESSIONS: Hysterectomy with minimal fluid in pelvis. No abscess. 5 Clinical Report - Physicians/Mid Levels [facility] Emergency Department [address] [place] [address] Phone #: ext- [phone] 07/15/2020 19:08 Patient: COREY CORTEZ Sex: F : 1990 Age: 29y While performing the above CT examination, radiation dose reduction was accomplished utilizing automated exposure control, adjusting of the mA and kV based on the patient's body size and/or the use of imperative reconstructive techniques. Electronically Signed By: Desmond Gallo M.D. , Radiologist Date/Time: 07/15/20 21:36 . Note - Tests: (CT abd / pelvis - Hysterectomy with minimal fluid in pelvis. Appendectomy.).PROGRESS AND PROCEDURESCourse of Care: 21:46 Jul 15 2020. Patient is stable. Symptoms better. 21:[address] abd / pelvis shows nothing except minimal fluid in pelvis. 21:51 Jul 15 2020. Labs are unremarkable. Pt. now says her main reason for coming is to be COVID tested. However, I explained to her she did not have a cough or a fever and she did not warrant a COVID test here tonight. Anyway, our standard COVID test takes 4 days to return. She said she would go to an outpatient clinic to get the test tomorrow. Critical care performed (130 minutes). Time is exclusive of separately billable procedures. Time includes: direct patient care, patient reassessment, interpretation of data (laboratory data and pulse oximetry), review of patient's medical records and documentation of patient care- see progress notes. Procedures included in critical care time: peripheral IV placement and phlebotomy- see progress notes. Disposition: Discharged home in good and improved condition (21:56 Jul 15 2020). Condition: good.CLINICAL IMPRESSION Acute right upper quadrant abdominal pain. (Unclear etiology).INSTRUCTIONS Drink plenty of fluids. (Consider outpatient COVID testing at an Urgent Care or [facility] if a more rapid return of results is desired.). Warnings: Further evaluation is necessary. Follow-up: Follow up with a nutrition assistant if not better. Call for an appointment. Reason for referral: evaluation, 6 Clinical Report - Physicians/Mid Levels [facility] Emergency Department [address] [place] [address] Phone #: ext- [phone] 07/15/2020 19:08 Patient: COREY CORTEZ Sex: F : 1990 Age: 29y treatment and Upper abdominal pain - consider endoscopy / colonoscopy. Follow up with your doctor in two days if not better. Call for an appointment. Reason for referral: evaluation, treatment and RUQ abdominal pain - Unclear etiology. Understanding of the discharge instructions verbalized by patient.(Electronically signed by Paulino Castellanos, Physician 07/15/2020 22:58) Name Value Range Interpretation Code Description Data Renee rce(s) Supporting Document(s) ID Date Data Source [id number] 07/15/2020 09:36:00 [place] [address] ---------NAME--------- NUMBER SEX AGE ADMIT DISC. XRAY# F/C TYPE ELI Long [id number] F 29 07/15/20 [id number] X6B E/R DATE OF : 1990 M/R# [id number] #: [id number] TR-03 LOCATION: EMERGENCY DEPT TRANSCRIBED: 07/15/20 21:[address] ABD //T// PELV W/[place] ORAL W/[place] [id number] COMPLETED:07/15/20 21:36 marsha 981 Reason(s): Abdominal Pain PHYSICIAN: ERNA BR======= R A D I O L O G Y R E P O R T PATIENT HISTORY:RIGHT SIDED ABD PAINHYSTERECTOMYEST DLP-1462.9mGy*cm ACTUAL DLP- 1465.4mGy*cmTime Out performed. Correct patient with 2 identifiers, type and amount ofcontrast used, correct body part and side all verified prior to examination.BEM / CORONAL (DICOM Hx)CT Abdomen/PelvisHistory:RIGHT SIDED ABD PAIN HYSTERECTOMY EST DLP-1462.9mGy*cm ACTUAL DLP-1465.4mGy*cmTime Out performed. Correct patient with 2 identifiers, type and amount ofcontrast used, correct body part and side all verified prior to examination. BEM(Hx) / CORONAL (DICOM Hx)Technique:CT ABD //T// PELV W/O ORAL W/O IVDose length product (mGy- cm): Not providedReformations: NoneContrast: WithoutComparison:No comparison study provided.Findings:Hysterectomy with minimal fluid in pelvis. No abscess.The exam demonstrates a cholecystectomy.There is normal appearing stomach, liver, pancreas and bilateral adrenal glands.Normal appearing spleen is noted.Unremarkable large and small bowel loops.Normal appearing spleen is noted.The kidneys appear normal.The bladder appears normal.Appendectomy.Scattered minor atelectasis versus minor pleural parenchymal scarring noted inthe lungs.There is no aggressive spine lesion.IMPRESSIONS:Hysterectomy with minimal fluid in pelvis. No abscess.While performing the above CT examination, radiation dose reduction wasaccomplished utilizing automated exposure control, adjusting of the mA and kVbased on the patient's body size and/or the use of imperative reconstructivetechniques.Electronically Signed By:Desmond Gallo M.D. , RadiologistDate/Time: 07/15/20 21:36 Name Value Range Interpretation Code Description Data [facility] rce(s) Supporting Document(s) ID Date Data Source [id number] 07/15/2020 09:24:00 PM [facility] Name Value Range Interpretation Code Description Data Renee rce(s) Supporting Document(s) Lipase [Enzymatic activity/volume] in Serum or Plasma 19 U/L 13 - 60 [facility] ID Date Data Source [id number] 07/15/2020 09:27:00 PM [facility] Name Value Range Interpretation Code Description Data [facility](s) Supporting Document(s) COMPREHENSIVE METABOLIC PANEL [facility] COMPREHENSIVE METABOLIC PANEL Sodium [Moles/volume] in Serum or Plasma 141 mEq/L 134 - 153 [facility] Potassium [Moles/volume] in Serum or Plasma 4.1 mEq/L 3.6 - 5.0 [facility] Chloride [Moles/volume] in Serum or Plasma 105 mEq/L 98 - 107 [facility] Carbon dioxide, total [Moles/volume] in Serum or Plasma 27 MEQ/L 22 - 30 [facility] Glucose [Mass/volume] in Serum or Plasma 75 MG/DL 65 - 110 [facility] BUN 10 MG/DL 7 - 21 [facility] al Creatinine [Mass/volume] in Serum or Plasma 0.6 MG/DL 0.7 - 1.5 L [facility] BUN/CREAT 17 8 - 27 [facility] al Protein [Mass/volume] in Serum or Plasma 6.6 G/DL 6.3 - 8.2 [facility] Albumin [Mass/volume] in Serum or Plasma 4.2 G/DL 3.9 - 5.0 [facility] Globulin [Mass/volume] in Serum by calculation 2.4 GM/DL 2.4 - 3.2 [facility] A/G RATIO 1.8 0.8 - 2.0 [facility] Calcium [Mass/volume] in Serum or Plasma 9.4 MG/DL 8.4 - 10.2 [facility] Bilirubin.total [Mass/volume] in Serum or Plasma <0.7 MG/DL 0.2 - 1.3 [facility] Alkaline phosphatase [Enzymatic activity/volume] in Serum or Plasma 99 U/L 38 - 126 [facility] Aspartate aminotransferase [Enzymatic activity/volume] in Serum or Plasma 51 U/L 5 - 40 H [facility] Alanine aminotransferase [Enzymatic activity/volume] in Seru m or Plasma 54 U/L 7 - 56 [facility] Anion gap 3 in Serum or Plasma 9.0 mmol/L 8.0 - 16.0 [facility] AGE 29 yrs [facility] Hospit al NON-AA GFR >60 mL/min [facility] Hosp ital AFR AMER GFR >60 mL/min [facility] Ho spital Male GFR In terprentation 20-49 yrs >60 mL/min Normal 50-59 yrs >56 mL/min Normal 60-69 yrs >49 mL/min Normal 70-79yrs >42 mL/min Normal 80 and above >35 mL/min Normal Female GFR Interpretation 20-39 yrs >60 mL/min Normal 40-49 yrs >58 mL/min Normal 50-59 yrs >51 mL/min Normal 60-69 yrs >45 mL/min Normal 70-79 yrs >39 mL/min Normal 80 and above >32 mL/min Normal ID Date Data Source [id number] 07/15/2020 09:05:00 PM EST [facility] Name Value Range Interpretation Code Description Data Renee rce(s) Supporting Document(s) CBC W/AUTOMATED DIFF [facility] COMPLETE BLOOD COUNT Leukocytes [#/volume] in Blood by Automated count 4.9 10^3/uL 4.2 - 1 1.0 [facility] Erythrocytes [#/volume] in Blood by Automated count 4.88 10^6/uL 4. 20 - 5.40 [facility] Hemoglobin [Mass/volume] in Blood 15.9 g/dL 12.0 - 16.0 [facility] Hematocrit [Volume Fraction] of Blood by Automated count 48.4 % 3 7.0 - 47.0 H [facility] Erythrocyte mean corpuscular volume [Entitic volume] by Auto mated count 99.2 fL 81.0 - 101 [facility] Erythrocyte mean corpuscular hemoglobin [Entitic mass] by Automated count 32.6 pg 27.0 - 34.0 [facility] Erythrocyte mean corpuscular hemoglobin concentration [Mass/volume] by Automated count 32.9 g/dL 31.0 - 36.0 [facility] Erythrocyte distribution width [Ratio] by Automated count 12.8 % 11.5 - 14.5 [facility] Platelets [#/volume] in Blood by Automated count 154 10^3/uL 150 - 45 0 [facility] Platelet mean volume [Entitic volume] in Blood by Automated count 11.5 fL 7.4 - 10.4 H [facility] Neutrophils/100 leukocytes in Blood by Automated count 60.8 % 37. 0 - 80.0 [facility] Lymphocytes/100 leukocytes in Blood by Manual count 30.3 % 25.0 - 40.0 [facility] Monocytes/100 leukocytes in Blood by Automated count 6.5 % 3.0 - 8.0 [facility] Eosinophils/100 leukocytes in Blood by Automated count 1.2 % 0.0 - 7.0 [facility] Basophils/100 leukocytes in Blood by Automated count 0.8 % 0.0 - 2.5 [facility] %IG 0.4 % 0.0 - 0.0 H [facility] al %NRBC 0.0 % 0.0 - 0.0 [facility] al Neutrophils [#/volume] in Blood by Automated count 2.97 10^3/uL 2.00 - 6.90 [facility] Lymphocytes [#/volume] in Blood by Automated count 1.48 10^3/uL 0.60 - 3.40 [facility] Monocytes [#/volume] in Blood by Automated count 0.32 10^3/uL 0.00 - 0.90 [facility] Eosinophils [#/volume] in Blood by Automated count 0.06 10^3/uL 0.00 - 0.70 [facility] Basophils [#/volume] in Blood by Automated count 0.04 10^3/uL 0.00 - 0.20 [facility] #IG 0.02 10^3/uL 0.00 - 0.10 [facility] #NRBC 0.00 10^3/uL 0.00 - 0.00 [facility] MANUAL DIFF NOT INDICATED [facility] RBC MORPH NOT INDICATED [facility] ID Date Data Source [id number] 06/20/2020 10:22:29 AM [facility] Name Value Range Interpretation Code Description Data Renee e(s) Supporting Document(s) [facility] [id number] jb2 [file] VFT0Y= ID Date Data Source [id number] 06/19/2020 09:28:01 AM EST [facility] Name Value Range Interpretation Code Description Data Renee rce(s) Supporting Document(s) Progress Note [facility] KQAZKd1gCpCWErOl75/GGHmzSZXgn1HhCHcrVYm5GSvrEYHtQ3JwKLB3uU9zCTI6AMaDDoYiXzYdGqYr lbm [file] stem frazer+o7l3CIaqBsT6FDDUuDIoj1cgG4GEh4RckQWxUx [file] AgICAgICAgICAgICAgICAgICAgICAgICAgICAgICAgICAgICAgICAgICAgICAgICAgICAgICAgICAgIC AgICAgICAgICAgICAgICAgICANCiAgICAgICAgICAgICAgICAgICAgICAgICAgICAgICAgICAgICAgIC AgICAgICAgICAgICAgICAgICAgICAgICAgICAgICAg ICAgICAgICAgICAgICAgICAgICAgICAgICAgICANCiAgICAgICAgICAgICAgICAgICAgICAgICAgICAg ICAgICAgICAgICAgICAgICAgICAgICAgICAgICAgICAgICAgICAgICAgICAgICAgICAgICAgICAgICAg ICAgICAgICAgICANCiAgICAgICAgICAgICAgICAgIC AgICAgICAgICAgICAgICAgICAgICAgICAgICAgICAgICAgICAgICAgICAgICAgICAgICAgICAgICAgIC AgICAgICAgICAgICAgICAgICAgICANCiAgICAgICAgICAgICAgICAgICAgICAgICAgICAgICAgICAgIC AgICAgICAgICAgICAgICAgICAgICAgICAgICAgICAg ICAgICAgICAgICAgICAgICAgICAgICAgICAgICAgICANCiAgICAgICAgICAgICAgICAgICAgICAgICAg ICAgICAgICAgICAgICAgICAgICAgICAgICAgICAgICAgICAgICAgICAgICAgICAgICAgICAgICAgICAg ICAgICAgICAgICAgICANCiAgICAgICAgICAgICAgIC AgICAgICAgICAgICAgICAgICAgICAgICAgICAgICAgICAgICAgICAgICAgICAgICAgICAgICAgICAgIC AgICAgICAgICAgICAgICAgICAgICAgICANCiAgICAgICAgICAgICAgICAgICAgICAgICAgICAgICAgIC AgICAgICAgICAgICAgICAgICAgICAgICAgICAgICAg ICAgICAgICAgICAgICAgICAgICAgICAgICAgICAgICAgICANCiAgICAgICAgICAgICAgICAgICAgICAg ICAgICAgICAgICAgICAgICAgICAgICAgICAgICAgICAgICAgICAgICAgICAgICAgICAgICAgICAgICAg ICAgICAgICAgICAgICAgICANCiAgICAgICAgICAgIC AgICAgICAgICAgICAgICAgICAgICAgICAgICAgICAgICAgICAgICAgICAgICAgICAgICAgICAgICAgIC AgICAgICAgICAgICAgICAgICAgICAgICAgICANCjw/aEVxP0ssjAAedzL5J8duDj5EHx9TVR0da5XnRT QvQXnesuJoSplOWuWqJTWzBmtPSho1DDpoVT0YaGTh A1MzT9PpDStsUW4PDRAjLZVutHFuKXRsHIBbObQ7GACwDIdcWK7NhFQzUKvrKSMcLNAyVeGuPFXoIAIy WQLlIPWeYNEZLFGpINXuJdCbTQZoEJDzIR6NOUFbV082zbZuMs7NIs0LJaMaTW1ini9WDpNvBMMqIfiC Hfm4AMfiWZ3JrQLogEIyKxNuWYWVScVcW9cba2AwIo BsBGNNQMssSF5Ah4AoaSExJGe+Hh3YKH8rm4SsWWooSsJcKO9xpq8RBVlPZaPfD7SdvMddIBVch3vyLG XqZW5ctQJxXRP5PJObRkMabGPLCQCzzgdwvrKkXB2EFNO6VJDxKjQwPgGzOdDpGGT5NLArCG3iVRhdGP 1OOIU6GWekKIOmADLhO8mRNuYfLCJhHYMhaOfzNE8T IdBnD4OtjuTdsPNgXVGvDXKOPq8+OVflnmCePnfJCfP3AMQmx9DqJBb8LT8VCPOeARfjLL9GHZKxbE1v WQasZB5IHnEsLkUgFRVWEcQrK18ggXScHAb9Z6WuNwQpDNKzPwzyPAIwKJbtJcCbQHYrHlBfTAjdXA4+ ID4+HSrqQW6RVOhzsmBbJNXyFs9JJALxVFBeWF0wVN GeDDHnU6S4eUpoMRKCVxIuY7chreysVP1vNPUwL359wDmamqQiZLE3EFQeCx8WTUFfTYB4CUMlcECbRe TiPAXGGYohLE7AkIZpVWI2mS1wRVhpLURgIJRxW5jMNlAwzJgzFD22dHgypmXxcMIgJTb+Eb9LVN4af1 UaSEg8bbKjWAveQJZ8IHbeGUMpUMGeLIVkXTR1HIS0 NKEDOqOqUGKoGZGsHAwvTPLxHZXons9TUGFmNUKwSuIbOnKhZKXnAGXhKKarTFTsMAV4AEU1EKNeWRRr DY6AZqNoEDIaSWHjLQglCDHfBVQhkl0LLGFcYHQhCjt2EAAdJICgSEZbTPeyHKZmNVV2IFO4RCJyEIRd WM4DSxGiUOJfDTjvEMTgKNNkDYLshs9LCRVwEYCqHa Y1MmOhFTXkSTSoLFudVGTgLKTzIUS5XDIjLQQnAP6EDmXsTBIzVIJ7DjYhCHApZOHusw3WDCLuJGPpFb X5IUKnYSXyDVPmPKtsECViALKnXLT3AIUeBLRjVN8YAjYySNLaVFtaELDgDVUtZICmrx0HAIDbXOHsYr QiQgVeFLLtWWPyKTzePWKhYNC2TZL6MKTwHAIaAL0J SuZlCLCnEXu0LfOgFHAiEVQbsm5QMWFvZKMoNXP9HALvNAVpPIHzPCzzVQClPDNjYwt1XWOjGBHoSA3A NkBzZNQiPzK1OnLxAEKlSLDktx2TGBUmXRTnEBdjJOFeRAFgVNPgMKkhCSBjYTEcECJtOKJeQITrTR4F RjLbINSxLnBuKKcpKUPmJCWppf8PEOUuBSHdPna6AQ SoVNUaSJEiUAigWUUtHLB3MDj9QJMmDAWvVG4TLaUgVGFgIbOtAATyWJVsODWkad4ZDOAyQJNrQOGhXs RuGZEySZOvMYfkNPDoTNT4Aal9ECZyQSWgMR1DTbZrQPLrQvR0QdGiEMKaMKRkso7FKKRdDDHoXMwzIR VzUPCgYTPfLMrrPTHwZGL2MYz4IFYfIFEkRF5KYzLt NMCiLgC1ImboUUNkQJZith3LJZYiPOViInEgMqZoQUWaVCJgNXdzLCBnCTZ1Evx7SSQnUUHsCX7NCzAl TTEcGlg2OoapOTNbLQNlvj7VYTBaLDNaDRF4JJCjURCaUDFgROogHKTxRAT3IyS9FPAfLDAcXS6TDlLw ZEPgIcy6VxJvYKLfTHGrkq2SlJAfuZeybd6HQZlMOg 1CuAcjGGU8CLhfJz2wbDOtOuJoYSBGGv4QknXfKTOhAMIKSPcxTRTuCFA7Qpl7Y4BgPpEoXTumX0SrY0 RjR5HeLbxgGTjuADUjFpS9PDHfSKi2WoZiB6UzZYK0OpM3DtJfQuMjKIO6NXFeZGG+OZ3vHGh+Pg0Kc3 ZrcrB4znPcTBvsBED8LS7QCEDQR1OQKm== ID Date Data Source [id number] 06/12/2020 09:53:00 AM EST [facility] [address] [place] [address]. [address] [place] [id number] Fax: Bariatric Initial Nutrition : [phone] Signed Patient: Corey Cortez Acct:[id number] Visit Date: 06/12/20 : 1990 Intake Vital Signs 06/12/20 09:54 Height 5 ft 9 in Weight 260 lb BMI 38.4 Intake Visit Reasons: backline/Nutrition/2of6 Allergies aspirin Allergy (Verified 05/16/20 07:50) metoclopramide [From Reglan] Allergy (Verified 05/16/20 07:50) tramadol Allergy (Verified 05/16/20 07:50) History of Smoking/Tobacco Use: Never Smoker Pneumococcal Vaccine (+65): No Immunizations up to date: Yes PFSH PFSH - OH PFSH - OH Medical History Cardiomyopathy Gastrointestinal dysmotility Morbid obesity due to excess calories Myotonic dystrophy Surgical History H/O section x 3 H/O right hemicolectomy H/O: hysterectomy S/P laparoscopic appendectomy S/P laparoscopic cholecystectomy Family History Father Diabetes mellitus Mother Hypothyroidism Social History Alcohol Use: None Substance Use: never Bariatric Initial Nutrition Nutrition Assessment Surgery: Sleeve BMI class: Obesity class 2 35-39.9 IBW: 131 - 160 lbs % IBW: 179% Highest adult weight: 260 Lowest adult weight: 155 Weight goal prior to surgery: 247 Weight at ages: 19 (180) and 26 (240) Food allergies/intolerances: NKFA Meds/alternat med/supplements: Lasix Dieting history: Corey has tried several diets in the past with limited success. She tried OTC dietpills in 2019 for 2 months and lost 3 lbs. She also has tried eating smaller portions and exercisingmore for the past week. Diet recall: Breakfast: coffee (caramel frappe) Lunch: nothing Dinner: nothing or 3 oz meat, 1 cup vegetables, 1/2 cup rice Beverages: water 4 cups, sweetened iced tea 2 - 3 cups , occasional frappe Nutrition/eating patterns: Corey usually eats 1 meal a day, skipping breakfast and lunch. She liveswith her boyfriend and children. He does most of the cooking and shopping. He is supportive of her eating healthier and losing weight. She does not plan ahead for meals. She usually eats out 2 - 3 times a month. She denied any emotional eating or grazing between meals. She often eats in front of the television. Exercise: Walking 10 - 20 minutes a day, occasional housework Labs: none Estimated needs Estimated energy needs: JRK=8353 X 1.2 AF X 1.0 IF = 2370 kcal/day - 500 kcal r/t BMI= 1870 kcal/day Estimated protein needs: Using upper end of IBW: 0.8 - 1 g/kg/day= 58 - 73 g/day Estimated fluid needs: 1 ml/kcal/day = 1870 ml/day Nutrition Diagnosis Nutrition diagnosis: NC3.3 Overweight/obesity (related to physical inactivity and undesirable eatinghabits as evidenced by BMI of 38.4) Intervention/Monitor/Evaluation Diet prescription: 1900 kcal/day, 58 - 73 g protein/day, 1900 ml fluids/day Diet education: Discussed weight loss tips, portion sizes, protein shakes, exercise, and protein based meals Handout provided: Yes (pre op post op packets) Patient goals for next visit: She will: - not skip meals - eat away from the tv - eat slowly, use a small plate, and not drink with meals - try some protein shakes - keep a food journal - increase time spent exercising Follow-up: 4 - 12 weeks Time spent with patient: 45 minutes Assessment Plan (AMB) Telemed Service Telemed verbal consent obtained: Yes Telemed service provided via: Video Time spent in minutes: 45 Assessment Plan (1) Morbid obesity due to excess calories: Status: Acute Code(s): E66.01 - Morbid (severe) obesity due to excess calories SNOMED Code(s): 211039733 Category: Medical (2) Gastrointestinal dysmotility: Status: Acute Code(s): K92.89 - Other specified diseases of the digestive system SNOMED Code(s): 399624254 Category: Medical (3) Cardiomyopathy: Status: Acute Code(s): I42.9 - Cardiomyopathy, unspecified SNOMED Code(s): 28280502 Category: Medical Problems Did you add a problem (diagnosis code) to the patient?: Yes Coding Level of Care Code 86090 Nutrition Individual 15 Diagnoses Morbid obesity due to excess calories E66.01 Gastrointestinal dysmotility K92.89 Cardiomyopathy I42.9 Time Spent (min) 45 Signed By:Maria Esther Ellington <<Signature on File>> Signed Date/Time: 06/12/20 1244 Co-Signer: Co-Signed Date/Time: Initializing User: SADI Huston RD 06/12/20 0953 2 Name Value Range Interpretation Code Description Data Renee rce(s) Supporting Document(s) ID Date Data Source [id number] 05/20/2020 07:34:00 PM EST [facility] 1 OrderSheet [facility] Emergency Department [address] [place] [address] Phone #: ext- [phone] 05/20/2020 19:21 Patient: COREY CORTEZ Sex: F : 1990 Age: 29yWEIGHT:117.9 kg (S) HEIGHT:69 inches (S) BMI:38.4ALLERGIES: Apririn causes trouble breathing, Reglan causes syncope, Tramadol causes seizuresCHIEF COMPLAINT: abdominal painDIAGNOSIS: Urinary tract infectious disease, Abdominal painLAB ORDERSOrder Description Priority Entered Acknowledged InitialedUrinalysis (Clean STAT 19:40 05/20/2020 21:29 Shanae,Catch) Paulino Peralta R.N. Physician;CBC w Diff STAT 19:40 05/20/2020 20:10 Paulino Jolly R.N. Physician;CMP STAT 19:40 05/20/2020 20:10 Paulino Jolly R.N. Physician;Lipase STAT 19:40 2019 20:10 Paulino Jolly R.N. Physician;HCG Serum Qual STAT 19:40 05/20/2020 Cancelled: Physician Order 19:59 Paulino Castellanos Physician P gil;DIAGNOSTIC STUDY ORDERSOrder Description Priority Entered Acknowledged InitialedCT ABD PEL W/O STAT 19:41 05/20/2020 20:10 Shanae,Oral W/O IV Paulino Peralta R.N.Contrast Physician;(Oxygen?(No))(IV?(Yes)) Reason for Study: Abdominal PainUS Gall Bladder STAT 19:41 05/20/2020 Cancelled: Physician Order 19:47 Paulino(Oxygen?(No)) Paulino Castellanos Physician Physician; Reason for Study: RUQ PainMEDICATION/IV/DRIP/FLUID ORDERSOrder Description Priority Entered Acknowledged Initialed 2 OrderSheet [facility] Emergency Department [address] [place] [address] Phone #: ext- [phone] 05/20/2020 19:21 Patient: COREY CORTEZ Sex: F : 1990 Age: 29yIV NS : Bolus 500 19:40 05/20/2020 Cancelled: Physician Order 22:34 Jayro, then 125 mL/hr Paulino Castellanos Physician(can be titrated per Physician;additionalphysicianinstruction)Zofran 4 mg IVP X 1 19:40 05/20/2020 Cancelled: Physician Order 22:34 [place]: 4 mg (NOW Paulino Castellanos Physicianx1) Physician;Macrobid PO 100 21:47 05/20/2020 22:37 Ray Sepulveda RN Physician;GENERAL ORDERSOrder Description Priority Entered Acknowledged InitialedSaline Lock 19:40 05/20/2020 20:10 Paulino Jolly R.N. Physician;[Electronically signed by Kathryn Jolly R.N. (00:41 05/21/2020)][Electronically signed by Paulino Castellanos Physician (05:50 05/21/2020)][Electronically locked by Kathryn Jolly R.N. (00:41 05/21/2020)] Name Value Range Interpretation Code Description Data Renee rce(s) Supporting Document(s) ID Date Data Source [id number] 05/20/2020 07:34:00 PM EST [facility] 1 Medication Reconciliation Report [facility] Emergency Department [address] [place] [address] Phone #: ext- [phone] 05/20/2020 19:21 Patient: COREY CORTEZ Sex: F : 1990 Age: 29yWeight: 117.9 kgHeight/Length: 69 in.BMI: 38.4ALLERGIES: Apririn causes trouble breathing, Reglan causes syncope, Tramadol causes seizuresThe patient's Home Medications are listed below:THE FOLLOWING MEDICATIONS NEED TO BE RECONCILED: Lasix Oral 20 mg, daily TUMS PRN last d ose 2 pmThe source(s) of the original Home Medication information:Not obtained.The following Medications were given to the patient in the Emergency Department:Macrobid [PO] PO 100 mg, administered: 05/20/2020 10:37:00 PMThe following Medications were prescribed to the patient:Macrobid 100 mg capsule Take 1 capsule twice a day for 7 days -- for UTI. Dispense 14 capsule. Refills:0. Substitution permitted.[facility] #03 - [address] [facility] ; [place] [address]. FaxNumber: .Pyridium 200 mg tablet Take 1 tablet every eight hours for 2 days -- for cystitis / bladder spasm.Dispense 6 tablet. Refills: 0. Substitution permitted.[facility] #67 - [address] [facility] ; [place] [address]. FaxNumber: . -- Physician Lianet Name Value Range Interpretation Code Description Data Renee rce(s) Supporting Document(s) ID Date Data Source [id number] 05/20/2020 07:34:00 PM [facility] 1 Medication Administration Record [facility] Emergency Department [address] [place] [address] Phone #: ext- [phone] 05/20/2020 19:21 Patient: COREY CORTEZ Sex: F : 1990 Age: 29yWeight: 117.9 kgHeight/Length: 69 inBMI: 38.4ALLERGIES: Tramadol causes seizures, Reglan causes syncope, Apririn causes trouble breathing Date/Time Medication Administered Medication OrderedGiven MACROBID [PO] (NITROFURANTOIN Macrobid PO 100 mg22:37 05/20/2020 MONOHYD MACRO)Watson Sepulveda RN Dose: 100 mg Capsules PO Name Value Range Interpretation Code Description Data Renee rce(s) Supporting Document(s) ID Date Data Source [id number] 05/20/2020 07:34:00 PM [facility] 1 General Instructions [facility] Emergency Department [address] [place] [address] Phone #: ext- [phone] 05/20/2020 19:21 Patient: COREY CORTEZ Sex: F : 1990 Age: 29yRight upper quadrant abdominal pain of undetermined cause.Acute urinary tract infection with cystitis. No hematuria. Not associated with indwelling catheter orobstruction.INSTRUCTIONSTake Tylenol (Acetaminophen) for temperature greater than 100.4 degrees by tympanic thermometer. Takeaccording to label instructions.Drink plenty of fluids. No alcohol.Warnings: Further evaluation is necessary.GENERAL WARNINGS: Return or contact your physician immediately if your condition worsens orchanges unexpectedly, if not improving as expected, or if other problems arise.Prescription Medications:Macrobid 100 mg capsule Take 1 capsule twice a day for 7 days -- for UTI. Dispense 14 capsule. Refills:0. Substitution permitted.[facility]10 - [address] [place] [address]. Phone: DoxNumber: .Pyridium 200 mg tablet Take 1 tablet every eight hours for 2 days -- for cystitis / bladder spasm.Dispense 6 tablet. Refills: 0. Substitution permitted.[facility]10 - [address] [place] [address]. faxNumber: .Follow-up:Follow up with your doctor tomorrow if not better. Call for an appointment. Reason for referral: evaluation,treatment and UTI / Abdominal pain.Understanding of the discharge instructions verbalized by patient. ADDITIONAL INFORMATIONUnknown Causes of Abdominal Pain (Female) 2 General Instructions [facility] Emergency Department [address] [place] [address] Phone #: ext- [phone] 05/20/2020 19:21 Patient: COREY CORTEZ Sex: Philipp : 1990 Age: 29yThe exact cause of your belly (abdominal) pain is not clear. This does not mean that this is somethingto worry about. Everyone likes to know the exact cause of the problem. But sometimes with bellypain, there is no clear-cut cause, and this could be a good thing. The good news is that yoursymptoms can be treated, and you will feel better.Your condition does not seem serious now. But sometimes the signs of a serious problem may takemore time to appear. For this reason, it is important for you to watch for any new symptoms,problems, or worsening of your condition.Over the next few days, the abdominal pain may come and go. Or it may be constant. Other commonsymptoms can include nausea and vomiting. Sometimes it can be difficult to tell if you feel nauseous.You may just feel bad and not connect that feeling to nausea. Constipation, diarrhea, and a fever maygo along with the pain.The pain may continue even if treated correctly over the following days. Depending on how things go,sometimes the cause can become clear and may need more or different treatment. Additionalevaluations, medicines, or tests may also be needed.Home careYour healthcare provider may prescribe medicine for pain, symptoms, or an infection. Follow thehealthcare provider's instructions for taking these medicines. 3 General Instructions [facility] Emergency Department [address] [place] [address] Phone #: ext- [phone] 05/20/2020 19:21 Patient: COREY CORTEZ Sex: F : 1990 Age: 29yGeneral care Rest as much as you can until your next exam. No strenuous activities. Try to find positions that ease discomfort. A small pillow placed on the abdomen may help relieve pain. Something warm on your abdomen (such as a heating pad) may help, but be careful not to burn yourself.Diet Don't force yourself to eat, especially if having cramps, vomiting, or diarrhea. Water is important so you don't get dehydrated. Soup may also be good. Sports drinks may also help, especially if they are not too acidic. Don't drink sugary drinks as this can make things worse. Take liquids in small amounts. Don't guzzle them. Caffeine sometimes makes the pain and cramping worse. Don't take dairy products if you have vomiting or diarrhea. Don't eat large amounts at a time. Wait a few minutes between bites. Eat a diet low in fiber (called a low-residue diet). Foods allowed include refined breads, white rice, fruit and vegetable juices without pulp, tender meats. These foods will pass more easily through the intestine. Don't have whole-grain foods, whole fruits and vegetables, meats, seeds and nuts, fried or fatty foods, dairy, alcohol and spicy foods until your symptoms go away.Follow-up careFollow up with your healthcare provider, or as advised, if your pain does not begin to improve in thenext 24 hours.Call [phone] if any of these occur: Trouble breathing Confusion Fainting or loss of consciousness Rapid heart rate 4 General Instructions [facility] Emergency Department [address] [place] [address] Phone #: ext- [phone] 05/20/2020 19:21 Patient: COREY CORTEZ Sex: F : 1990 Age: 29y SeizureWhen to seek medical adviceCall your healthcare provider right away if any of these occur: Pain gets worse or moves to the right lower abdomen New or worsening vomiting or diarrhea Swelling of the abdomen Unable to pass stool for more than 3 days Fever of 100.4F (38C) or higher, or as directed by your healthcare provider. Blood in vomit or bowel movements (dark red or black color) Yellow color of eyes and skin (jaundice) Weakness, dizziness Chest, arm, back, neck, or jaw pain Unexpected vaginal bleeding or missed period Can't keep down liquids or water and you are getting dehydrated [phone] [employer]. [address] [place] [address]. All rights reserved. This information is not intended as asubstitute for professional medical care. Always follow your healthcare professional's instructions.Bladder Infection, Female (Adult) 5 General Instructions [facility] Emergency Department [address] [place] [address] Phone #: ext- [phone] 05/20/2020 19:21 Patient: COREY CORTEZ Sex: F : 1990 Age: 29yUrine is normally doesn't have any bacteria in it. But bacteria can get into the urinary tract from theskin around the rectum. Or they can travel in the blood from elsewhere in the body. Once they are inyour urinary tract, they can cause infection in the urethra (urethritis), the bladder (cystitis), or thekidneys (pyelonephritis).The most common place for an infection is in the bladder. This is called a bladder infection. This isone of the most common infections in women. Most bladder infections are easily treated. They arenot serious unless the infection spreads to the kidney.The phrases "bladder infection," "UTI," and "cystitis" are often used to describe the same thing. Butthey are not always the same. Cystitis is an inflammation of the bladder. The most common cause ofcystitis is an infection.SymptomsThe infection causes inflammation in the urethra and bladder. This causes many of the symptoms.The most common symptoms of a bladder infection are: Pain or burning when urinating Having to urinate more often than usual Urgent need to urinate Only a small amount of urine comes out Blood in urine Abdominal discomfort. This is usually in the lower abdomen above the pubic bone. 6 General Instructions [facility] Emergency Department [address] [place] [address] Phone #: ext- [phone] 05/20/2020 19:21 Patient: COREY CORTEZ Sex: Philipp : 1990 Age: 29y Cloudy urine Strong- or bad-smelling urine Unable to urinate (urinary retention) Unable to hold urine in (urinary incontinence) Fever Loss of appetite Confusion (in older adults)CausesBladder infections are not contagious. You can't get one from someone else, from a toilet seat, orfrom sharing a bath.The most common cause of bladder infections is bacteria from the bowels. The bacteria get onto theskin around the opening of the urethra. From there, they can get into the urine and travel up to thebladder, causing inflammation and infection. This usually happens because of: Wiping improperly after urinating. Always wipe from front to back. Bowel incontinence Procedures such as having a catheter inserted Older age Not emptying your bladder. This can allow bacteria a chance to grow in your urine. Dehydration Constipation Sex Use of a diaphragm for controlTreatmentBladder infections are diagnosed by a urine test. They are treated with antibiotics and usually clear upquickly without complications. Treatment helps prevent a more serious kidney infection.Medicines 7 General Instructions [facility] Emergency Department [address] [place] [address] Phone #: ext- [phone] 05/20/2020 19:21 Patient: COREY CORTEZ Sex: F : 1990 Age: 29yMedicines can help in the treatment of a bladder infection: Take antibiotics until they are used up, even if you feel better. It is important to finish them to make sure the infection has cleared. You can use acetaminophen or ibuprofen for pain, fever, or discomfort, unless another medicine was prescribed. If you have chronic liver or kidney disease, talk with your healthcare provider before using these medicines. Also talk with your provider if you've ever had a stomach ulcer or gastrointestinal bleeding, or are taking blood-thinner medicines. If you are given phenazopydridine to reduce burning with urination, it will cause your urine to become a bright orange color. This can stain clothing.Care and preventionThese self-care steps can help prevent future infections: Drink plenty of fluids to prevent dehydration and flush out your bladder. Do this unless you must restrict fluids for other health reasons, or your doctor told you not to. Proper cleaning after going to the bathroom is important. Wipe from front to back after using the toilet to prevent the spread of bacteria. Urinate more often. Don't try to hold urine in for a long time. Wear loose-fitting clothes and cotton underwear. Avoid tight-fitting pants. Improve your diet and prevent constipation. Eat more fresh fruit and vegetables, and fiber, and less junk and fatty foods. Avoid sex until your symptoms are gone. Avoid caffeine, alcohol, and spicy foods. These can irritate your bladder. Urinate right after intercourse to flush out your bladder. If you use control pills and have frequent bladder infections, discuss it with your doctor.Follow-up careCall your healthcare provider if all symptoms are not gone after 3 days of treatment. This is especiallyimportant if you have repeat infections.If a culture was done, you will be told if your treatment needs to be changed. If directed, you cancall to find out the results.If X-rays were done, you will be told if the results will affect your treatment. 8 General Instructions [facility] Emergency Department [address] [place] [address] Phone #: ext- [phone] 05/20/2020 19:21 Patient: COREY CORTEZ Sex: Philipp : 1990 Age: 29yCall 911Call 911 if any of the following occur: Trouble breathing Hard to wake up or confusion Fainting or loss of consciousness Rapid heart rateWhen to seek medical adviceCall your healthcare provider right away if any of these occur: Fever of 100.4F (38.0C) or higher, or as directed by your healthcare provider Symptoms are not better by the third day of treatment Back or belly (abdominal) pain that gets worse Repeated vomiting, or unable to keep medicine down Weakness or dizziness Vaginal discharge Pain, redness, or swelling in the outer vaginal area (labia) [phone] [employer]. [address] [place] [address]. All rights reserved. This information is not intended as asubstitute for professional medical care. Always follow your healthcare professional's instructions.Fever Control (Adult)A fever is a normal reaction of your body to an illness. The temperature itself usually isn't harmful. Itactually helps your body fight infections. You don't need to treat a fever unless you feel veryuncomfortable.Home careFollow these tips to take care of yourself at home: If you feel warm, check your temperature. Dress in light clothing. This will help you lose extra body heat through your skin. The fever will go up if you wear extra layers or wrap in blankets. Fever causes your body to lose water through evaporation. Drink plenty of fluids. These 9 General Instructions [facility] Emergency Department [address] [place] [address] Phone #: ext- [phone] 05/20/2020 19:21 Patient: COREY CORTEZ Sex: F : 1990 Age: 29y include water, juice, clear sodas, belkys asim, or lemonade.Fever medicinesYou can take acetaminophen every 4 to 6 hours if: You feel very uncomfortable Your oral temperature is 100.4F (38C) or higherIf you can't take or keep down oral medicine, ask your pharmacist for acetaminophen suppositories.You don't need a prescription for these.If the fever doesn't get better within 1 hour after you take acetaminophen, take ibuprofen. If thisworks, keep taking the ibuprofen every 6 to 8 hours.If you have chronic liver or kidney disease, talk with your healthcare provider before taking thesemedicines. Also talk with your provider if you ever had a stomach ulcer or GI (gastrointestinal)bleeding.If either medicine alone doesn't keep the fever down, you may switch off between the 2 medicinesevery 3 to 4 hours. But do this only if your healthcare provider has told you to. For example, takeibuprofen. Wait 3 hours. Then take acetaminophen. Wait 3 hours. Take ibuprofen, and so on. Followyour provider's instructions exactly.Don't give aspirin to anyone younger than age 19 who is ill with a fever. Aspirin can cause seriousside effects such as liver damage and Nicolle syndrome. Although rare, Nicolle syndrome is a veryserious illness usually found in children younger than age 15. The syndrome is closely linked to theuse of aspirin or aspirin-containing medicine during viral infection.Follow-up careFollow up with your healthcare provider if you don't get better after 48 hours.When to seek medical adviceCall your healthcare provider right away if any of these occur: Fever, as directed by your healthcare provider, or: o Fever of 100.4F (38C) or above lasting for 24 to 48 hours o Fever lasting more than 3 days, even without other symptoms o Fever that happens after visiting a foreign country o Fever that happens within a month after visiting a country with malaria. Malaria is a 10 General Instructions [facility] Emergency Department [address] [place] [address] Phone #: ext- [phone] 05/20/2020 19:21 Patient: COREY CORTEZ Sex: F : 1990 Age: 29y serious illness. A fever can still be malaria even if you took medicine to prevent it. The medicine does not work in all cases. Confusion or trouble thinking Headache or stiff neck Flat, small, purplish red spots on your skin Low blood pressure Fast heart rate Fast (rapid) breathing You are You just had surgery, another medical procedure, or were just discharged from the hospital Use of medicines that suppress the immune system (immunosuppressants). These include Prednisone, cancer medicines, and organ transplant rejection medicines. If you are not sure about whether your medicines suppress your immune system, ask your healthcare provider.Call 911Someone should call 911 if you: Are having trouble breathing or shortness of breath Are unresponsiveImportant reminderCall your healthcare provider if you get a fever after visiting a place where infectious diseases arecommon. 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 This usually goes away without aproblem. But, some places have more serious diseases. Fever with certain other symptoms maymean you have a serious illness. Symptoms to watch for include diarrhea, skin rashes, insect bites,and skin boils, or infections. Your provider may ask you: What you did on your trip How long you were there Where you stayed (hotel, [place], tent) What you ate and drank If you were bitten by insects or other bugs 11 General Instructions [facility] Emergency Department [address] [place] [address] Phone #: ext- [phone] 05/20/2020 19:21 Patient: COREY CORTEZ Sex: F : 1990 Age: 29y If you swam in freshwater If you had sex or got a tattoo or piercing while you were thereCheck the [facility] to get more information about specific infectious diseases in the areas you havetraveled. [phone] [employer]. [address] [place] [address], [place] [address]. All rights reserved. This information is not intended as asubstitute for professional medical care. Always follow your healthcare professional's instructions. You have been given the following additional information: Abdominal Pain, Unknown Cause, (Female) Bladder Infection, Female (Adult) Fever Control (Adult)(Electronically signed by Paulino Castellanos, Physician 05/21/2020 05:50) Name Value Range Interpretation Code Description Data Renee rce(s) Supporting Document(s) ID Date Data Source [id number] 05/20/2020 07:34:00 PM EST [facility] 1 Clinical Report - Nurses [facility] Emergency Department [address] [place] [address] Phone #: ext- [phone] 05/20/2020 19:21 Patient: COREY CORTEZ Sex: F : 1990 Age: 29yTRIAGEHistorian: patient. Arrived from home (taxi).Triage time: 19:22 05/20/2020.Chief Complaint: ABDOMINAL PAIN.Onset. (). ( Had upper scope at [place] on the , currently reporst right upper quad sharpstabbing pain.). She has had nausea (slight). No diarrhea, constipation or fever. Last oral intake bypatient was (4pm toast).Treatment TOBACCO STEMMER:Took Tylenol and ibuprofen. (reports that pain comes back shortly after taking medications). --: Lien Sepulveda R.N.Acuity: LEVEL 3.SEPSIS SCREEN: Sepsis Screen negative. No suspected or confirmed signs of infection present. --: Lien Sepulveda R.N.19:25 05/20/20. BP: 120/70. MAP: 86. HR: 80. RR: 16. O2 saturation: 100%. Temp: 96.3 F. Pain levelnow: 10. Additional comments: reports that pain is constant, "medications just help for about 1 hr".--05/20/20 Lien Sepulveda R.N.Weight: 117.9 kg stated. Height/Length: 69 inches Per Patient. BMI: 38.4. --19:05/20/20 Lien Grier R.N.MedicationsLasix Oral 20 mg, daily. --05/20/20 Lien Sepulveda R.N. TUMS PRN last dose 2 pm. --05/20/20 Lien Sepulveda R.N.AllergiesApririn causes trouble breathing. --05/20/20 Lien Sepulveda R.N.Reglan causes syncope. --05/20/20 Lien Sepulveda R.N.Tramadol causes seizures. --:05/20/20 Lien Sepulveda R.N.PROBLEMS:Cardiomegaly.Av block.Syncope.UTI - Urinary Tract Infection.Gastritis. 2 Clinical Report - Nurses [facility] Emergency Department [address] [place] [address] Phone #: ext- [phone] 05/20/2020 19:21 Patient: COREY CORTEZ [facility]#: [id number] Sex: F : 1990 Age: 29y GI Issues. Hypothyroidism. Myotonic dystriophy. Heart Disease. Hiatal Hernia. --05/20/20 Lien Sepulveda R.N. The following entry was modified by Lien Sepulveda R.N., 05/20/20 Carcinoid tumor: (Removed). --05/20/20 Lien Sepulveda R.N.. ADDITIONAL SURGERIES: Appendectomy. Carcinoid tumor removed. Cholecystectomy. . Hemicolectomy. Hysterectomy. Tubal Ligation. Upper Endoscopy. --19:39 05/20/20 Lien Sepulveda R.N. History SOCIAL HX: Never smoker. No alcohol use or drug use. She was offered HIV testing but declined and hepatitis C testing but declined. She has not traveled outside the [place] Infectious disease exposure: No infectious disease exposure. (Negative COVID test Apr (Pre-OP)). SELF HARM ASSESSMENT: Self harm assessment was performed. The patient answered "no" to the question(s) "Have you recently felt down, depressed, or hopeless?", "Do you have thoughts of harming or killing yourself?", "Have you recently had thoughts about harming or killing others?", "Do you have any dangerous items in your possession?" and "Have you noticed less interest or pleasure in doing things?". ABUSE ASSESSMENT: No report of abuse. FALL RISK ASSESSMENT: Fall risk assessment completed. Risk factors identified include severe pain and nausea. Fall interventions initiated. Bed in low position. Brakes on. Call light in reach of patient. --19:28 05/20/20 Lien Sepulveda R.N. PAST MEDICAL HX: Gastroesophageal reflux disease. Gallstones (s/p nicko 5 yrs ago). Peptic ulcer disease. ( Had bx done with her scope). --19:31 05/20/20 Lien Sepulveda R.N.NURSING PROGRESS NOTESReassurance given to the patient. Call light placed in reach. Bed placed in lowest position. Brakes ofbed on. --19:31 05/20/20 Lien Sepulveda R.N. ( Attempted 2 IV attempts without success. notified of numerous lab attempts and IV attempts). 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 Multiple attempts by other staff. Notified. Lab at bedside attempting to draw blood samples.). --20:36 05/20/20 Lien Sepulveda R.N. Patient ID band checked. Blood samples drawn by physician: purple and tiger top. ( blood drawn from right femoral). --21:43 05/20/20 Kathryn Jolly R.N. Patient informed about reason for wait. Patient waiting for lab results. --22:34 05/20/20 Kathryn Jolly R.N. 22:37 05/20/2020 Macrobid (Nitrofurantoin Monohyd Macro) PO Capsules 100 mg given. Allergies verified and confirmed 5 rights. Information reviewed with patient including reason for taking this medication, signs of allergic reaction and precautions. Verbalizes understanding. --22:37 05/20/20 Watson Sepulveda RN.DISPOSITION / DISCHARGE Departure time: 23:01 05/20/2020. Condition at depa rture: improved. Discharge instructions provided and reviewed with the patient. Reviewed medication(s) side effects, precautions, dosing and course information. Prescription(s) sent electronically to pharmacy. Reviewed referral to a primary care physician. Reviewed need for increased fluid intake. Patient verbalized understanding. Written instructions provided in Palestinian. The patient was discharged by the physician. She was discharged home and unaccompanied at time of discharge. She left ambulatory and via taxi. --23:06 05/20/20 Kathryn Jolly R.N. 23:05 05/20/20. BP: 104/62. HR: 69. RR: 16. O2 saturation: 97%. Temp: 98.1 F. Pain level now 7/10. --23:06 05/20/20 Kathryn Jolly R.N.Locked/Released at 05/21/2020 00:41 by Kathryn Jolly R.N. Name Value Range Interpretation Code Description Data Renee rce(s) Supporting Document(s) ID Date Data Source [id number] 05/20/2020 07:34:00 PM EST [facility] 1 Clinical Report - Physicians/Mid Levels [facility] Emergency Department [address] [place] [address] Phone #: ext- [phone] 05/20/2020 19:21 Patient: COREY CORTEZ Sex: F : 1990 Age: 29y Time Seen: 19:22 05/20/2020. Arrived- By private vehicle. Historian- patient. Disposition decision: 22:45 05/20/2020.HISTORY OF PRESENT ILLNESS Chief Complaint: ABDOMINAL PAIN. This started 2 days ago and is still present. It was abrupt in onset and has been waxing/waning. It is described as "pain", sharp, stabbing, cramping and well localized and it is described as located in the right flank and the right upper quadrant. When seen in the E.D., severity described as 7 / 10. Modifying factors- worsened by movement, walking, cough and deep breaths. The patient has had mild nausea. No loss of appetite, vomiting or diarrhea. No recent travel. Similar symptoms previously. Patient has had similar symptoms several times, occasionally. Recent medical care: The patient was seen recently at another facility in a clinic. ( Just had EGD 2 days ago).R EVIEW OF SYSTEMSNo constipation, black stools, hematemesis, difficulty with urination or pain with urination. No urinaryfrequency, fever, headache, sore throat or blurred vision. No chest pain, difficulty breathing, cough, jointpain or skin rash. No chills or back pain. Denies current . The patient has not had weightloss.PAST HISTORYPast history not negative. See nurses notes. Heart disease. GI disease. Other disease.CardiomegalyCardiomyopathyMyotonic dystrophyHypothyroidAV BlockSyncopeUTIGastritisHiatal Hernia. Surgeries: Appendectomy. . Cholecystectomy. Endoscopy. Had hysterectomy. (R hemicolectomy).SOCIAL HISTORYNever smoker. No alcohol use or drug use. No recent travel. 2 Clinical Report - Physicians/Mid Levels [facility] Emergency Department [address] [place] [address] Phone #: ext- [phone] 05/20/2020 19:21 Patient: COREY CORTEZ Sex: F : 1990 Age: 29yADDITIONAL NOTESThe nursing notes have been reviewed with agreement regarding the chief complaint, HPI, ROS, PMH andpatient medications and allergies.PHYSIC AL EXAMVital Signs: 05/20/2020 19:25 BP: 120/70. MAP: 86. HR: 80. RR: 16. O2 saturation: 100%. Temp: 96.3 F.Pain level now: 7/10. Have been reviewed and appear to be correct. Blood pressure normal. Heart ratenormal. Respiratory rate normal. Temperature normal. Oxygen saturation normal.Appearance: Alert. Oriented X3. Anxious. Appears to be in pain. Patient in moderate distress. Indistress.Eyes: Pupils equal, round and reactive to light. Eyes inspection not normal. Pale conjunctivae.ENT: Nose normal. Pharynx normal.Neck: Normal inspection. Neck supple.CVS: Normal heart rate and rhythm. Heart sounds normal. Pulses normal.Respiratory: No respiratory distress. Painless inspiration. Breath sounds normal. Chest nontender.Abdomen: Soft. Moderate tenderness in the right upper quadrant and right side of the abdomen. Bowelsounds normal. No organomegaly. No mass. Tenderness present.Back: Normal inspection.Skin: Skin warm and dry. Pallor. Abnormal skin color. No rash. Normal skin turgor.Extremities: Extremities exhibit normal ROM. No lower extremity edema.Neuro: Oriented X 3. No motor deficit. No sensory deficit.LABS, X-RAYS, AND EKGLaboratory Tests: Laboratory tests have been ordered, with results reviewed and considered in themedical decision making process. CT ABD PEL W/O Oral W/O IV Contrast: (DEON: 05/20/2020 19:41) ( MsgRcvd 05/20/2020 22:34) Final results CT ABD Reason(s): Abdominal Pain TRANSPORTATION: WC IV? IV?(Yes) O2? Oxygen?(No) Ro Exam CT ABD //T// PELV W/O ORAL W/[place] [address] ---------NAME--------- NUMBER SEX AGE ADMIT DISC. XRAY# F/C TYPE ELI JONESR B [id number] F 29 05/20/20 [id number] X6B E/R DATE OF : 1990 M/R# [id number] #: [id number] TR-03 LOCATION: EMERGENCY DEPT TRANSCRIBED: 05/20/20 22:[address] ABD //T// PELV W/O ORAL W/[place] [id number] COMPLETED:05/20/20 22:34 marsha [id number] Reason(s): Abdominal Pain PHYSICIAN: ERNA BR R A D I O L O G Y R E P O R T PATIENT HISTORY: ABDOMINAL PAIN 3 Clinical Report - Physicians/Mid Levels [facility] Emergency Department [address] [place] [address] Phone #: ext- [phone] 05/20/2020 19:21 Patient: [id number] Sex: F : 1990 Age: 29y HYSTERECTOMY EST DLP-1466.5mGy*cm ACTUAL DLP-1474.7 Time Out performed. Correct patient with 2 identifiers, type and amount of contrast used, correct body part and side all verified prior to examination. BEM / ABD/PEL (DICOM Hx) CT Abdomen/Pelvis History: ABDOMINAL PAIN HYSTERECTOMY EST DLP-1466.5mGy*cm ACTUAL DLP-1474.7 Time Out performed. Correct patient with 2 identifiers, type and amount of contrast used, correct body part and side all verified prior to examination. BEM (Hx) / ABD/PEL (DICOM Hx) Technique: CT ABD //T// PELV W/O ORAL W/O IV Dose length product (mGy-cm): Not provided Reformations: None Contrast: Without Comparison: CT Findings: Minimal free fluid in the pelvis. Hysterectomyy noted. There is no evidence for pneumoperitoneum. There is no evidence for intra-abdominal loculated fluid collection or abscess. The appendix is not seen on this exam. Unremarkable ileocecal anastomosis. The large and small bowel loops appear normal otherwise. There is no evidence for bowel obstruction, inflammation or pneumatosis. The exam demonstrates a cholecystectomy. There is normal appearing stomach, liver, pancreas and bilateral adrenal glands. Minimal splenomegaly is noted. No distinct splenic mass identified. Scattered minor atelectasis in the lungs are noted. There is no aggressive bony lesion. IMPRESSIONS: Minimal free fluid in the pelvis. Hysterectomyy noted with acceptable postoperative appearance within the pelvis. Mild splenomegaly measuring and 13.6 cm slightly larger than previous exam. Cholecystectomy is noted. Unremarkable ileocecal anastomosis. While performing the above CT examination, radiation dose reduction was accomplished utilizing automated exposure control, adjusting of the mA and kV based on the patient's body size and/or the use of imperative reconstructive techniques. Electronically Signed By: Desmond Gallo M.D. , Radiologist Date/Time: 05/20/20 22:33US Gall Bladder: (DEON: 05/20/2020 19:41) ( MsgRcvd 05/20/2020 19:48) CanceledReason(s): RUQ PainReason(s): RUQ PainTRANSPORTATION: WC IV? O2? Oxygen?(No) [facility] (DEON: 05/20/2020 21:19) ( Mscvd 05/20/2020 21:33) Final results 4 Clinical Report - Physicians/Mid Levels [facility] Emergency Department [address] [place] [address] Phone #: ext- [phone] 05/20/2020 19:21 Patient: COREY CORTEZ Sex: F : 1990 Age: 29y Test Result Flag Units (Reference) URINALYSIS URINALYSIS SOURCE R COLOR yellow (NORMAL: Yello CLARITY cloudy (NORMAL: Clear SPEC GRAVITY 1.010 (1.001 - 1.030 pH 6 (5 - 9) GLUCOSE NORM (NORMAL: Negat BILIRUBIN NEG (NORMAL: Negat KETONE NEG (NORMAL: Negat PROTEIN NEG (NORMAL: Negat NITRITE POS (NORMAL: Negat BLOOD NEG (NORMAL: Negat LEUK EST NEG (NORMAL: Negat UROBILINOGEN NOR (less than 1.0 MICROSCOPIC See Below WBC 1 - 3 (NORMAL: NONE RBC None Seen (NORMAL: NONE EPITHELIAL MODERATE A (NORMAL: NONE BACTERIA 2+ MOD A (NORMAL: NONE MUCOUS Trace (NORMAL: NONECBC w Diff: (DEON: 05/20/2020 19:40) ( Mscvd 05/21/2020 05:05) Canceledfemoral drawn by dr erna tai. called at 2320CMP: (DEON: 05/20/2020 21:19) ( Mscvd 05/20/2020 21:44) Final results Test Result Flag Units (Reference) COMPREHENSIVE METABOLIC PANEL COMPREHENSIVE METABOLIC PANEL SODIUM 137 mEq/L (134 - 153) POTASSIUM 4.4 mEq/L (3.6 - 5.0) CHLORIDE 106 mEq/L (98 - 107) CO2 24 MEQ/L (22 - 30) GLUCOSE 98 MG/DL (65 - 110) BUN 13 MG/DL (7 - 21) CREATININE 0.7 MG/DL (0.7 - 1.5) BUN/CREAT 19 (8 - 27) TOTAL PROTEIN 7.2 G/DL (6.3 - 8.2) ALBUMIN 4.3 G/DL (3.9 - 5.0) GLOBULIN 2.9 GM/DL (2.4 - 3.2) A/G RATIO 1.5 (0.8 - 2.0) CALCIUM 9.3 MG/DL (8.4 - 10.2) TOTAL BILI <0.7 MG/DL (0.2 - 1.3) ALKALINE PHOS 88 U/L (38 - 126) SGOT/AST 34 U/L (5 - 40) SGPT/ALT 26 U/L (7 - 56) ANION GAP 7.0 L mmol/L (8.0 - 16.0) AGE 29 yrs NON-AA GFR >60 mL/min AFR AMER GFR >60 mL/min Male GFR Interprentation 20-49 yrs >60 mL/min Gmmwpf29-96 yrs >56 mL/min Normal 60-69 yrs >49 mL/min Normal 70-79yrs>42 mL/min Normal 80 and above >35 mL/min Normal Female GFRInterpretation 20-39 yrs >60 mL/min Normal 40-49 yrs >58 mL/minNormal 50-59 yrs >51 mL/min Normal 60-69 yrs >45 mL/min Normal 5 Clinical Report - Physicians/Mid Levels [facility] Emergency Department [address] [place] [address] Phone #: ext- [phone] 05/20/2020 19:21 Patient: COREY CORTEZ Sex: F : 1990 Age: 29y 70-79 yrs >39 mL/min Normal 80 and above >32 mL/min Normal Lipase: (DEON: 05/20/2020 21:19) ( MsgRcvd 05/20/2020 21:42) Final results Test Result Flag Units (Reference) LIPASE 34 U/L (13 - 60) Beta-HCG, Qual Serum: (DEON: 05/20/2020 19:40) ( MsgRcvd 05/20/2020 19:59) Canceled . Note - Tests: (CT abd / pelvis - Minimal free fluid in pelvis. S/P Hysterectomy. Mild splenomegaly. S/P cholecystectomy. Normal ileocecal anastomosis.).PROGRESS AND PROCEDURESCourse of Care: 21:22 May 20 2020. Patient is stable. 21:22 May 20 2020. Nurses and phlebotomy unable to get blood peripherally after many attempts, thus I did R femoral V. stick. 21:24 May 20 2020. Apparently CBC clotted in tube and will have to be redrawn. 22:48 May 20 2020. Pt. did not want CBC redrawn. CT abdomen / pelvis is unremarkable. Will discharge home with dx of UTI. Critical care perf ormed (130 minutes). Time is exclusive of separately billable procedures. Time includes: direct patient care, patient reassessment, interpretation of data (laboratory data and pulse oximetry), review of patient's medical records and documentation of patient care- see progress notes. Procedures included in critical care time: phlebotomy- see progress notes. Disposition: Discharged home in good and improved condition (22:45 May 20 2020). Condition: good.CLINICAL IMPRESSION Right upper quadrant abdominal pain of undetermined cause. Acute urinary tract infection with cystitis. No hematuria. Not associated with indwelling catheter or obstruction.INSTRUCTIONS Take Tylenol (Acetaminophen) for temperature greater than 100.4 degrees by tympanic thermometer. Take according to label instructions. Drink plenty of fluids. No alcohol. 6 Clinical Report - Physicians/Mid Levels [facility] Emergency Department [address] [place] [address] Phone #: [phone] ext- [phone] 05/20/2020 19:21 Patient: COREY CORTEZ Sex: F : 1990 Age: 29y Warnings: Further evaluation is necessary. GENERAL WARNINGS: Return or contact your physician immediately if your condition worsens or changes unexpectedly, if not improving as expected, or if other problems arise. Prescription Medications: Macrobid 100 mg capsule Take 1 capsule twice a day for 7 days -- for UTI. Dispense 14 capsule. Refills: 0. Substitution permitted. [facility] - [address] [place] [address]. . Pyridium 200 mg tablet Take 1 tablet every eight hours for 2 days -- for cystitis / bladder spasm. Dispense 6 tablet. Refills: 0. Substitution permitted. [facility] - [address] [place] [address]. . Follow-up: Follow up with your doctor tomorrow if not better. Call for an appointment. Reason for referral: evaluation, treatment and UTI / Abdominal pain. Understanding of the discharge instructions verbalized by patient.(Electronically signed by Paulino Castellanos, Physician 05/21/2020 05:50) Name Value Range Interpretation Code Description Data Renee rce(s) Supporting Document(s) ID Date Data Source [id number] 05/20/2020 07:34:00 PM [facility] for COREY CORTEZ VisitID: [id number] Date: 11:38Pt urine growing gram negative rods greater than 100,000, d/c on Macrobid mg PO BIDx7 days, shown [place]. Sandy DIXON at 1135, awaiting sensitivities.(Electronically signed by Carly Godwin R.N. 05/23/2020 11:38)05/24/2020 15:43Pt urine growing enterobacter species, pt was d/c on Macrobid 100mg PO BIDx7 days, sensitive, shownto Marifer DIXON at 1540, no further intervention required.(Electronically signed by Carly Godwin R.N. - 05/24/2020 15:43) Name Value Range Interpretation Code Description Data Renee rce(s) Supporting Document(s) ID Date Data Source [id number] 05/20/2020 10:33:00 PM [facility] [address] [place] [address] ---------NAME--------- NUMBER SEX AGE ADMIT DISC. XRAY# F/C TYPE ELI Long [id number] F 29 05/[birth year]/20 [id number] X6B E/R DATE OF : 1990 M/R# [id number] #: [id number] TR-03 LOCATION: EMERGENCY DEPT TRANSCRIBED: 05/20/20 22:[address] ABD //T// PELV W/O ORAL W/[place] [id number] COMPLETED:05/20/20 22:34 marsha [id number] Reason(s): Abdominal Pain PHYSICIAN: ERNA BR======= R A D I O L O G Y R E P O R T PATIENT HISTORY:ABDOMINAL PAINHYSTERECTOMYEST DLP-1466.5mGy*cm ACTUAL DLP- 1474.7Time Out performed. Correct patient with 2 identifiers, type and amount ofcontrast used, correct body part and side all verified prior to examination.BEM / ABD/PEL (DICOM Hx)CT Abdomen/PelvisHistory:ABDOMINAL PAIN HYSTERECTOMY EST DLP-1466.5mGy*cm ACTUAL DLP-1474.7 Time Outperformed. Correct patient with 2 identifiers, type and amount of contrast used,correct body part and side all verified prior to examination. BEM (Hx) / ABD/PEL(DICOM Hx)Technique:CT ABD //T// PELV W/O ORAL W/O IVDose length product (mGy-cm): Not providedReformations: NoneContrast: WithoutComparison: CTFindings:Minimal free fluid in the pelvis. Hysterectomyy noted.There is no evidence for pneumoperitoneum.There is no evidence for intra-abdominal loculated fluid collection or abscess.The appendix is not seen on this exam.Unremarkable ileocecal anastomosis.The large and small bowel loops appear normal otherwise.There is no evidence for bowel obstruction, inflammation or pneumatosis.The exam demonstrates a cholecystectomy.There is normal appearing stomach, liver, pancreas and bilateral adrenal glands.Minimal splenomegaly is noted. No distinct splenic mass identified.Scattered minor atelectasis in the lungs are noted.There is no aggressive bony lesion.IMPRESSIONS:Minimal free fluid in the pelvis. Hysterectomyy noted with acceptablepostoperative ap pearance within the pelvis.Mild splenomegaly measuring and 13.6 cm slightly larger than previous exam.Cholecystectomy is noted.Unremarkable ileocecal anastomosis.While performing the above CT examination, radiation dose reduction wasaccomplished utilizing automated exposure control, adjusting of the mA and kVbased on the patient's body size and/or the use of imperative reconstructivetechniques.Electronically Signed By:Desmond Gallo M.D. , RadiologistDate/Time: 05/20/20 22:33 Name Value Range Interpretation Code Description Data Renee rce(s) Supporting Document(s) ID Date Data Source [id number] 05/20/2020 09:42:00 PM EST [facility] Name Value Range Interpretation Code Description Data Renee rce(s) Supporting Document(s) Lipase [Enzymatic activity/volume] in Serum or Plasma 34 U/L 13 - 60 [facility] ID Date Data Source [id number] 05/20/2020 09:32:00 PM EST [facility] Name Value Range Interpretation Code Description Data Renee rce(s) Supporting Document(s) [facility] COL[facility] yellow NORMAL: Yellow [facility] CLARITY cloudy NORMAL: Clear [facility] Specific gravity of Urine by Test strip 1.010 1.001 - 1.030 [facility] pH 6 5 - 9 [facility] Glucose [Mass/volume] in Urine by Test strip NORM NORMAL: Negat [facility] Bilirubin.total [Presence] in Urine by Test strip NEG NORMAL: Negative [facility] Ketones [Presence] in Urine by Test strip NEG NORMAL: Negative [facility] Protein [Mass/volume] in Urine by Test strip [facility] Nit[facility] [Presence] in Urine by Test strip POS NORMAL: Negative [facility] BLOOD NEG NORMAL: Negative [facility] Leukocyte esterase [Presence] in Urine by Test strip NEG TEODORO L: Negative [facility] Urobilinogen [Mass/volume] in Urine by Test strip NOR less maura n 1.0 mg/dL [facility] MICROSCOPIC See Below [facility] ital WBC 1 - 3 NORMAL: NONE SEEN [facility] Erythrocytes [#/volume] in Urine by Test strip None Seen NORMAL: NON E SEEN [facility] EPITHELIAL MODERATE NORMAL: NONE SEEN A [facility] Bacteria [Presence] in Urine sediment by Light microscopy 2+ MOD NORMAL: NONE SEEN A [facility] Mucus [Presence] in Urine sediment by Light microscopy Trace NORMAL: NONE SEEN [facility] ID Date Data Source [id number] 05/20/2020 09:44:00 PM EST [facility] Name Value Range Interpretation Code Description Data Renee rce(s) Supporting Document(s) COMPREHENSIVE METABOLIC PANEL [facility] COMPREHENSIVE METABOLIC PANEL Sodium [Moles/volume] in Serum or Plasma 137 mEq/L 134 - 153 [facility] Potassium [Moles/volume] in Serum or Plasma 4.4 mEq/L 3.6 - 5.0 [facility] Chloride [Moles/volume] in Serum or Plasma 106 mEq/L 98 - 107 [facility] Carbon dioxide, total [Moles/volume] in Serum or Plasma 24 MEQ/L 22 - 30 [facility] Glucose [Mass/volume] in Serum or Plasma 98 MG/DL 65 - 110 [facility] BUN 13 MG/DL 7 - 21 [facility] Creatinine [Mass/volume] in Serum or Plasma 0.7 MG/DL 0.7 - 1.5 [facility] BUN/CREAT 19 8 - 27 [facility] Protein [Mass/volume] in Serum or Plasma 7.2 G/DL 6.3 - 8.2 [facility] Albumin [Mass/volume] in Serum or Plasma 4.3 G/DL 3.9 - 5.0 [facility] Globulin [Mass/volume] in Serum by calculation 2.9 GM/DL 2.4 - 3.2 [facility] A/G RATIO 1.5 0.8 - 2.0 [facility] Calcium [Mass/volume] in Serum or Plasma 9.3 MG/DL 8.4 - 10.2 [facility] Bilirubin.total [Mass/volume] in Serum or Plasma <0.7 MG/DL 0.2 - 1.3 [facility] Alkaline phosphatase [Enzymatic activity/volume] in Serum or Plasma 88 U/L 38 - 126 [facility] Aspartate aminotransferase [Enzymatic activity/volume] in Serum or Plasma 34 U/L 5 - 40 [facility] Alanine aminotransferase [Enzymatic activity/volume] in Seru m or Plasma 26 U/L 7 - 56 [facility] Anion gap 3 in Serum or Plasma 7.0 mmol/L 8.0 - 16.0 L [facility] AGE 29 yrs [facility] NON-AA GFR >60 mL/min [facility] AFR AMER GFR >60 mL/min [facility] Male GFR In terprentation 20-49 yrs >60 mL/min Normal 50-59 yrs >56 mL/min Normal 60-69 yrs >49 mL/min Normal 70-79yrs >42 mL/min Normal 80 and above >35 mL/min Normal Female GFR Interpretation 20-39 yrs >60 mL/min Normal 40-49 yrs >58 mL/min Normal 50-59 yrs >51 mL/min Normal 60-69 yrs >45 mL/min Normal 70-79 yrs >39 mL/min Normal 80 and above >32 mL/min Normal ID Date Data Source [id number] 05/24/2020 01:10:00 PM EST [facility] Name Value Range Interpretation Code Description Data Renee rce(s) Supporting Document(s) CULTURE URINE [facility] _CULTURE URINE_$$[id number]$$260221$$775954$$717882$$459316$$054496$$686882$$952712$$306469$$ 675679$$606099$$438921$$985454$$052018$$751827$$403301$$219179$$216258$$682009$$ 855006$$739827$$631569$$524986$$142619$$403024$$295070$$568441 -- Continued on next page --Patient: ELI Long Order: [id number] Page 2Culture: CULTURE URINE Status: Final ==== -- Continued on next page --Patient: ELI JONESR B Order: [id number] Page 2Culture: CULTURE URINE Status: Prelim =====$$[id number]$$[id number] DATE/TIME: 05/24/2020 12:06Culture: CULTURE URINE Status: FinalIsolate 1 Enterobacter species Flag: A . . . . . . .5Greater than 100,000 colony forming units per mL Previous result entered on 05/23/2020 03:57 ET Gram negative rodsUrine Culture,Comprehensive: [id number] species Flag: APatient: ELI NICOLE Mercedes Order: [id number] Page 3Culture: CULTURE URINE Status: Final ====ISOLATE 1 Enterobacter species Isolate 1Antibiotic MATTY IntUnits ug/mL -----Amoxicillin/Clavulanic Acid R R . . . . . .20-8Cefazolin R R . . . . . .76-0Cefepime S S . . . . . .6644-9Cefuroxime R R . . . . . .145-3Ciprofloxacin S S . . . . . .185-9Ertapenem S S . . . . . .74868-6Spwhbjyiqk S S . . . . . .267-5Imipenem S S . . . . . .279-0Levofloxacin S S . . . . . .55238- 8Meropenem S S . . . . . .6652-2Nitrofurantoin S S . . . . . .363-2Tetracycline S S . . . . . .496-0Tobramycin S S . . . . . .508-2Trimethoprim/Sulfa S S . . . . . .516-5P1 Test performed by: Tristin YUAN #: [id number] [address] [place] [address] [id number] [place] [id number] Director : Jt Long MD NPI #:Fleet Dispatch Manager : 05/23/20.0641.XMT.SENT REF 05/24/20.1310.XMT.SENT REF ID Date Data Source [id number] 05/16/2020 09:23:00 AM EDT [address] [address] [facility] IN[facility]NAGEMENT OR Report : [id number] Signed Patient: Corey Cortezh Acct:[id number] Unit: [id number] : 1990 Loc: ENDO Room/Bed: Age/Sex: 29 / F ADM Date: 05/16/20 cc: Sergio Conklin MD, Tyrone Scruggs MD [facility] Gastro OR Report Post Procedure/Discharge Note Date of Procedure:: 05/16/2020 Surgeon:: Sergio Conklin MD Was an Supervisor Wrapping Room used?: No Preoperative Diagnosis:: morbid obesity Post Operative/Final Diagnosis(es):: morbid obesity Procedure(s) Done:: upper endoscopy with biopsies Indication(s) for Procedure:: Corey is a 29-year-old white female with a longstanding history of class 2/3 obesity. She is interested in bariatric surgery. She now presents for elective foregut evaluation prior to planned surgical procedure. ASA Class: II Anesthesia Type: Conscious Sedation Description of Procedure:: After informed consent was obtained the patient was taken the endoscopysuite a time-out was performed she was placed in left lateral decubitus position with bite block in place in adequately padded an adequate level of sedation was achieved. The endoscope was introduced. We were able to observe the epiglottis. The esophagus was easily intubated posterior to the epiglottis. The upper, middle, lower thirds of the esophagus appeared to be normal the GE junction was at approximately 41 cm from the incisors. There was no evidence of hiatal hernia esophagitis, esophageal ulcerations, or Brasher's esophagus. The Z-line was regular without pathology. Upon entering the body of the stomach there was a moderate amount of green bile within the stomach. There were normal appearing rugal folds. There was no evidence of polyp or tumor. Upon entering the antrum the antrum was free of antritis, ulcerations, polyps or tumors. It should be noted that the pylorus was wide open and easily intubated the pylorus where the patient had enumerable small nodularity within the duodenum it appeared as though it may have been submucosal none of these appeared to be large or threatening looking however the diagnosis alludes me a clinically and visually at this time. I was able to traverse the duodenum the duodenal 2nd 3rd portions of duodenum appeared to be normal the ampulla appeared to be normal. Upon withdrawing the scope 2 biopsies of the duodenal bulb were performed in 2 biopsies of the antrum were performed a retroflexed view of the remaining body and fundus of stomach was normal stomach was decompressed thetube was removed the patient tolerated the procedure well. Complications:: None . There were no immediate complications to the procedure. Esitmated Blood Loss:: Less than 100 ml Findings/Outcome:: The patient had fairly normal looking anatomy. There did appear to be some bile reflux into the stomach. There did appear to be some small mucosal or even submucosal nodularity within the duodenum which appeared benign. Biopsies are pending at this time. I see no absolute contraindications to laparoscopic sleeve gastrectomy or laparoscopic Manjula-en-Y gastric bypass. Specimen removed:: Yes What Specimen was removed?: Portion of duodenal bulb, portion of antrum. Was Specimen sent to Pathology?: Yes Pre Operative Antibiotics: Not Required Recommended Follow up for scope(s): Other ( Follow-up will be based on the christine ent's pathology and biopsies and her eventual surgical intervention and symptoms. No routine follow-up appears to be indicated at this time.) Recommendations:: See Discharge Instruction in Discharge plan Charges Complete: Yes Signed By:Sergio Conklin MD <<Signature on File>> Signed Date/Time: 05/16/20927 Co-Signer: Co-Signed Date/Time: Initializing User: Sergio Conklin MD 05/16/20922 2 2 Name Value Range Interpretation Code Description Data Renee rce(s) Supporting Document(s) ID Date Data Source [id number] 05/17/2020 01:35:00 PM [facility] Run: 05/17/20 1335 INTERFACED REPORT Name: Corey Cortez Age/Sex: 29/F Location: ENDO Acct: [id number] Unit: [id number] Status: [facility] Room/Bed: Re05/16/20 Disch: [place] Dr: Sergio Conklin MD Spec Num: [id number] Recd: 05/16/20 Status: ROBERT Beata Num: [id number] SpType: SURGICAL Sub Dr: Sergio Conklin MD Morbid obesity EGD, pre-bariatric surgery ProcGROSS AND MICROSCOPIC - L4/2, Helicobacter Pylori Obesity 1. Duodenum biopsy 2. Gastric antrum biopsy, check for H. Pylori This case consists of two specimens, both are received in formalin. 1. The specimen labeled with the patient's name and 0l20ffyopwal wmkanl9p03 consists of a single fragment of pink-brady colored mucosal tissue which measures 0.2 cm in greatest dimension; entirely submitted. 2. The specimen labeled with the patient's name and 7d36kndokr biopsy, r/o H. Qagqng3u50 consists of two fragments of pink-brady colored mucosal tissue which measure 0.4 x 0.3 x 0.2 cm in aggregate; entirely submitted. (05-16-20 jwd/cjs) 1. Duodenum, biopsy: - Duodenal mucosa with no particular pathology 2. Gastric antrum, biopsy: - Gastric mucosa with no particular pathology - Special stain reveals no organisms resembling H. Pylori PATI/marlen 05-17-20 665 x Signed (signature on file) Sallie Tavares MD 05/17/20 Derick Meehan Pat END OF REPORT Name Value Range Interpretation Code Description Data Renee rce(s) Supporting Document(s) ID Date Data Source [id number] 05/07/2020 04:21:50 PM T [facility] Name Value Range Interpretation Code Description Data Renee rce(s) Supporting Document(s) Progress Note [facility] ONERVj6eWcYGAcYr47/DKEvcRXWcg4FjGViyWGk4QKopUPZiA7YgLEA1tL0ySHP4PFtAGrNdPyAyJTC2 [facility] [file] AgICAgICAgICAgICAgICAgICAgICAgICAgICAgICAgICAgICAgICAgICAgICAgICAgICAgICAgICAgIC AgICAgICAgICAgICAgICAgICAgICAgDQogICAgICAgICAgICAgICAgICAgICAgICAgICAgICAgICAgIC AgICAgICAgICAgICAgICAgICAgICAgICAgICAgICAg ICAgICAgICAgICAgICAgICAgICAgICAgICAgICAgICAgDQogICAgICAgICAgICAgICAgICAgICAgICAg ICAgICAgICAgICAgICAgICAgICAgICAgICAgICAgICAgICAgICAgICAgICAgICAgICAgICAgICAgICAg ICAgICAgICAgICAgICAgDQogICAgICAgICAgICAgIC AgICAgICAgICAgICAgICAgICAgICAgICAgICAgICAgICAgICAgICAgICAgICAgICAgICAgICAgICAgIC AgICAgICAgICAgICAgICAgICAgICAgICAgDQogICAgICAgICAgICAgICAgICAgICAgICAgICAgICAgIC AgICAgICAgICAgICAgICAgICAgICAgICAgICAgICAg ICAgICAgICAgICAgICAgICAgICAgICAgICAgICAgICAgICAgDQogICAgICAgICAgICAgICAgICAgICAg ICAgICAgICAgICAgICAgICAgICAgICAgICAgICAgICAgICAgICAgICAgICAgICAgICAgICAgICAgICAg ICAgICAgICAgICAgICAgICAgDQogICAgICAgICAgIC AgICAgICAgICAgICAgICAgICAgICAgICAgICAgICAgICAgICAgICAgICAgICAgICAgICAgICAgICAgIC AgICAgICAgICAgICAgICAgICAgICAgICAgICAgDQogICAgICAgICAgICAgICAgICAgICAgICAgICAgIC AgICAgICAgICAgICAgICAgICAgICAgICAgICAgICAg ICAgICAgICAgICAgICAgICAgICAgICAgICAgICAgICAgICAgICAgDQogICAgICAgICAgICAgICAgICAg ICAgICAgICAgICAgICAgICAgICAgICAgICAgICAgICAgICAgICAgICAgICAgICAgICAgICAgICAgICAg ICAgICAgICAgICAgICAgICAgICAgDQogICAgICAgIC AgICAgICAgICAgICAgICAgICAgICAgICAgICAgICAgICAgICAgICAgICAgICAgICAgICAgICAgICAgIC YnHKNsNRReNOKyUUBpMENxVKXtSCPnQRWqGUSaJJPqGMc7V6cjIFEcNTEfWV4sEFi9Sl7+DQoNCmVuZH S1okXrsO4FLH9ji2OvKFfiYZGja7VkFPb5GW9LSNAs RQiuZV7NXGydzx4FONBmVYOscCXDo6svOcTdMUQ6ILSbTomoCQ6PZXSjW1oigwIlKTNsNKXWNFfwVEZX PZcnQSFSBKLoLGWrDmCoQhQhDNUfHC9JAVJuY036rhSoYE6LWe9RRjKcWB6qpu5XYcJeGVIuVgqTLfw0 NNapYB4GgUEcjJYyALKoABAKNpLnO1zli0VtBmKdBX LXVYgcEZ9Tc0JzlGRjPGo+Mw9DZC6dz4KaNArrLNLlFE0cgt2YXWcJRlViM9QeoGfmMDUdd7slQEAxLN 6ihRXnPHE4SDVdQCLkBYKzaBC7CNydGKCQJtWulOHqGP5nEZ2bVFTyXWNxUoAuGRBZUS4RECIiFJJmaL YnFIIxCJOFQO4XYGzoFYZ8WSKcjyMhkOEmMLgxUW1R YXJlbnQgMzAgMCBSDQo+Eg5TGU2ke3UyQRfgJcRxAD1lvf4KWRvOHqFwI3P3eACqU8X2SBkmKc9GLTGi ROVcSeczMACPZTkoSA7TUD6styL5MD7JrGJbBPYqXWMkjTDiJXm1S19ldBSxCZsdZP4JLSY+Ivett+Pg0K WKNfBYAzBCAlQjVuQSBQOtOoB4EaU9WAg7HoP8JuWT 88tPpktpHmMJrwNJ4AFX3gWRYyFLSLZH5TiPIznO1bevXdJZDtIEOCZdEsE77okNXeCTNxVTG9KSAySr 7MCDCkS8JzgoEcnPkdkbXwUOZhRHPGZA9ABOsaorZssUAonOhmGY08kOusVB7MEw5ZRoDkBS4skm4WuQ RjGk8OWBXzMi1FMGIxRCGyLRZiJVB7FJMvOcVsPRes SSKwGTFuZNK1PZBdHYHuMW4TAkCpTLZdSwT5WQUuCMWrTSEkwh4GSMPmZNVcLNUwSaQfHLTlKIXpSIzb HDVsFUQbGLL8AUCaBBVwQW8PNfDvPJAzUKB9JcNmXFHoMWVikp2QJWFkOVTtIAEhXECrEPDeIRGyOJtv KFHuKCV8TEc9EXSePFVfGZ5NOzLbQBCqGJl3AUzkIN GgCPYcrf0YVJGwMIOrATv0NgYgUXBvNNTdEBeyHWGsBZBjHHjpWQKmJVTtOW2UQgGzFKNdCHSwAOwaFI XtSFXfwf3PZMNkHDQkPNX8EBXlZFGxPDCuOLzqLPYwLJL5FaE6SBQdKJCqLZ9IBlXpQOSaRFN9VLNlSZ EwCRWxag3CWUKxBQPfEoQ4AYBbVGAnJRDvSTtuFBFn AUH7GCB8OGYvUOVoBP0KVjCqYXBwGSa7ESWcEKEcZZUlmr2KSXCaQXEzVXutGZNwEZUeRKTqSUsiEFJw YKG2CQScUUPsSNYxXA2TPqLlDFYwXDrvBYbpGINwOSYjpo2ZOSIkLLHqGKEsUOCgWKWkJYKcHVwtJWDn AZErRBQ4TUKqDDTkIR3QToVrYJVwIeNdZeOjNYChRC Ieqk1QTCWgLSBmXZJhBwYiGYTxXTGcKOfvUJBlGUVcTWA6QPUxBROyKL8TPwStWNNpKtX2SRRkJZYdOD Hewf9FGSUySZZfFtM6PZTbZNVnXYReBPhgZYFlHHLwCfS8IVWfWUCmCM3PWgPrYSJyRxSwTSFpDBIrLM Ukzn7MNEXtZZXtZZQ3SDAeMDHgFCVxLSzaDOQkVUF9 EbMgQUOgAZZqCY8CFcYwSXTqBrK4UgZvVBIhCJGdxi4SuTOjrCkaym2UMJqZCe3WiTbtBXNrKLubPm1c fEMdKkDtGDNZIa6VrjOkKNXgCPVRQLpsICTgYKT9FcZoYEEhUys2BaAfRunwU7WtYhOtEZT5ZDW8TvTu HfY8VwP0AsK2UOPnSMvsFMN1HYVhLAErFpYqDXy3Sh g2M2Q+CC4aNRv+Fj7Ii2UtsfP6hsAgSUgoYEPkNT9ABNJCI3OOKo== ID Date Data Source [id number] 05/01/2020 12:36:00 PM EDT [facility] [address] [place] [address] PHONE: [phone] FAX: [phone] Name .................. : ELI Long Acct Number.................. : [id number] ROOM. ................. : [facility] Number ................... : [id number] Stay type ............. : E/R Discharge Date......... ... : 04/26/20 Admit Date ... ...... : 04/25/20 Admit Phys .................... : JOI COATES Date of ....... : 1990 Family Phys ................... : GARCIA Conjure Phone .................. : [phone] Age ................................ : 29 Film# .................. .:[id number] Sex ................................. : F Unsigned transcriptions are preliminary reports and do not represent a medical or legal document CHEST 2 VIEWS [id number] COMPLETE:04/25/20 22:25 RLB 13388 Reason(s): Shortness of Breath CHEST X-RAY: 2-VIEWS INDICATION: Shortness of breath. FINDINGS: The cardiac and mediastinal silhouettes appear normal and the lungs are clear. The bones and soft tissues are normal. The upper abdomen is unremarkable. IMPRESSION: No acute disease identifiable. Electronically Reviewed and Signed By Everett Ortez M.D. , 05/01/20 12:36, [place] Transcribe Initials: DZ , Transcribe Date: 04/26/20 00:26, Dictation Date: Copy for: EMERGENCY DEPT via modem Copy for: 710 MED REC DISCHARGED Page 1 of 1 Name Value Range Interpretation Code Description Data Renee rce(s) Supporting Document(s) ID Date Data Source [id number] 05/01/2020 08:52:00 AM EDT [facility] Name Value Range Interpretation Code Description Data Renee rce(s) Supporting Document(s) HCT 38.5 % 36.0-47.0 N [facility] HGB 12.3 g/dL 12.0-15.5 N [facility] MCH 31.9 G/DL pg 32.0-36.5 L [facility] MCHC 31.4 PG % 27.0-33.0 N [facility] PLATELETS 167 10 10*3/mm3 150-450 N [facility] RBC 3.92 10 10*6/mm3 4.00-5.40 L [facility] RDW 13.0 % 11.5-14.5 N [facility] WBC TOTAL 5.0 4.0-10.0 N [facility] ID Date Data Source [id number] 05/01/2020 08:52:00 AM EDT [facility] Name Value Range Interpretation Code Description Data Renee rce(s) Supporting Document(s) VIT D25 TOT 17.0 ng/mL 30.0-100.[address] [facility] BG FASTING 82 mg/dL 70-100 N [facility] ID Date Data Source [id number] 05/01/2020 08:52:00 AM EDT [facility]) Name Value Range Interpretation Code Description Data Renee rce(s) Supporting Document(s) vitamin E(alpha tocopherol) 8.7 mg/L 5.9-19.4 Vitamin E(alpha Tocopherol) [facility] ([facility]) vitamin E(gamma tocopherol) 2.2 mg/L 0.7-4.9 Vitamin E(gamma Tocopherol) [facility] ([facility]) ID Date Data Source [id number] 05/01/2020 08:52:00 AM EDT [facility] ([facility]) Name Value Range Interpretation Code Description Data Renee rce(s) Supporting Document(s) vitamin B1 level whole blood 87.8 nmol/L 66.5-200.0 Vitamin B1 Level Whole Blood [facility] ([facility]) ID Date Data Source [id number] 05/01/2020 08:52:00 AM EDT [facility] Name Value Range Interpretation Code Description Data Renee rce(s) Supporting Document(s) vitamin E(alpha tocopherol) 8.7 mg/L 5.9-19.4 Vitamin E(alpha Tocopherol) [facility] ([facility]) vitamin E(gamma tocopherol) 2.2 mg/L 0.7-4.9 Vitamin E(gamma Tocopherol) [facility] ([facility]) ID Date Data Source [id number] 05/01/2020 08:52:00 AM EDT [facility] Name Value Range Interpretation Code Description Data Renee rce(s) Supporting Document(s) vitamin B1 level whole blood 87.8 nmol/L 66.5-200.0 Vitamin B1 Level Whole Blood [facility] ID Date Data Source [id number] 05/01/2020 08:52:00 AM EDT [facility] ([facility]) Name Value Range Interpretation Code Description Data Renee rce(s) Supporting Document(s) vitamin E(alpha tocopherol) 8.7 mg/L 5.9-19.4 Vitamin E(alpha Tocopherol) [facility] ([facility]) vitamin E(gamma tocopherol) 2.2 mg/L 0.7-4.9 Vitamin E(gamma Tocopherol) [facility] ([facility]) ID Date Data Source [id number] 05/01/2020 08:52:00 AM EDT [facility] Name Value Range Interpretation Code Description Data Renee rce(s) Supporting Document(s) vitamin B1 level whole blood 87.8 nmol/L 66.5-200.0 Vitamin B1 Level Whole Blood [facility]) ID Date Data Source [id number] 05/01/2020 08:52:00 AM EDT [facility] Name Value Range Interpretation Code Description Data Renee rce(s) Supporting Document(s) vitamin E(alpha tocopherol) 8.7 mg/L 5.9-19.4 Vitamin E(alpha Tocopherol) [facility] ([facility]) vitamin E(gamma tocopherol) 2.2 mg/L 0.7-4.9 Vitamin E(gamma Tocopherol) [facility] ([facility]) ID Date Data Source [id number] 05/01/2020 08:52:00 AM EDT [facility] ([facility]) Name Value Range Interpretation Code Description Data Renee rce(s) Supporting Document(s) vitamin B1 level whole blood 87.8 nmol/L 66.5-200.0 Vitamin B1 Level Whole Blood [facility]) ID Date Data Source [id number] 05/01/2020 08:52:00 AM EDT [facility] Name Value Range Interpretation Code Description Data Renee rce(s) Supporting Document(s) vitamin E(alpha tocopherol) 8.7 mg/L 5.9-19.4 Vitamin E(alpha Tocopherol) [facility] ([facility]) vitamin E(gamma tocopherol) 2.2 mg/L 0.7-4.9 Vitamin E(gamma Tocopherol) [facility] ([facility]) ID Date Data Source [id number] 05/01/2020 08:52:00 AM EDT [facility] Name Value Range Interpretation Code Description Data Renee rce(s) Supporting Document(s) vitamin B1 level whole blood 87.8 nmol/L 66.5-200.0 Vitamin B1 Level Whole Blood [facility]) ID Date Data Source [id number] 05/01/2020 08:52:00 AM EDT [facility] Name Value Range Interpretation Code Description Data Renee rce(s) Supporting Document(s) vitamin E(alpha tocopherol) 8.7 mg/L 5.9-19.4 Vitamin E(alpha Tocopherol) [facility] ([facility]) vitamin E(gamma tocopherol) 2.2 mg/L 0.7-4.9 Vitamin E(gamma Tocopherol) [place] [facility]) ID Date Data Source [id number] 05/01/2020 08:52:00 AM EDT [facility] Name Value Range Interpretation Code Description Data Renee rce(s) Supporting Document(s) vitamin B1 level whole blood 87.8 nmol/L 66.5-200.0 Vitamin B1 Level Whole Blood [facility]) ID Date Data Source [id number] 05/01/2020 08:52:00 AM EDT [facility]) Name Value Range Interpretation Code Description Data Renee rce(s) Supporting Document(s) vitamin E(alpha tocopherol) 8.7 mg/L 5.9-19.4 Vitamin E(alpha Tocopherol) [facility] ([facility]) vitamin E(gamma tocopherol) 2.2 mg/L 0.7-4.9 Vitamin E(gamma Tocopherol) [facility] ([facility]) ID Date Data Source [id number] 05/01/2020 08:52:00 AM EDT [facility] Name Value Range Interpretation Code Description Data Renee rce(s) Supporting Document(s) vitamin B1 level whole blood 87.8 nmol/L 66.5-200.0 Vitamin B1 Level Whole Blood [facility] [facility]) ID Date Data Source [id number] 05/01/2020 08:52:00 AM EDT [facility]) Name Value Range Interpretation Code Description Data Renee rce(s) Supporting Document(s) vitamin E(alpha tocopherol) 8.7 mg/L 5.9-19.4 Vitamin E(alpha Tocopherol) [facility] ([facility]) vitamin E(gamma tocopherol) 2.2 mg/L 0.7-4.9 Vitamin E(gamma Tocopherol) [facility] ([facility]) ID Date Data Source [id number] 05/01/2020 08:52:00 AM EDT [facility]) Name Value Range Interpretation Code Description Data Renee rce(s) Supporting Document(s) vitamin B1 level whole blood 87.8 nmol/L 66.5-200.0 Vitamin B1 Level Whole Blood [facility]) ID Date Data Source [id number] 05/01/2020 08:52:00 AM EDT [facility]) Name Value Range Interpretation Code Description Data Renee rce(s) Supporting Document(s) vitamin E(alpha tocopherol) 8.7 mg/L 5.9-19.4 Vitamin E(alpha Tocopherol) [place]RA ([facility]) vitamin E(gamma tocopherol) 2.2 mg/L 0.7-4.9 Vitamin E(gamma Tocopherol) [facility]) ID Date Data Source [id number] 05/01/2020 08:52:00 AM EDT [facility]) Name Value Range Interpretation Code Description Data Renee rce(s) Supporting Document(s) vitamin B1 level whole blood 87.8 nmol/L 66.5-200.0 Vitamin B1 Level Whole Blood [facility]) ID Date Data Source [id number] 05/01/2020 08:52:00 AM EDT [facility]) Name Value Range Interpretation Code Description Data Renee rce(s) Supporting Document(s) vitamin E(alpha tocopherol) 8.7 mg/L 5.9-19.4 Vitamin E(alpha Tocopherol) [place] ([facility]) vitamin E(gamma tocopherol) 2.2 mg/L 0.7-4.9 Vitamin E(gamma Tocopherol) [facility]) ID Date Data Source [id number] 05/01/2020 08:52:00 AM EDT [facility]) Name Value Range Interpretation Code Description Data Renee rce(s) Supporting Document(s) vitamin B1 level whole blood 87.8 nmol/L 66.5-200.0 Vitamin B1 Level Whole Blood [facility]) ID Date Data Source [id number] 04/26/2020 01:05:00 PM EDT [facility] [address] [place] [address] RESPIRATORY CARE REPORT ==== ---------NAME------- NUMBER SEX AGE ADMIT DISC. XRAY# F/C CRAISA Long [id number] F 29 04/25/20 04/26/20 [id number] E/R DATE OF : 1990 M/R# [id number] #: [id number] TR-03 LOCATION: EMERGENCY DEPT [facility] [id number] COMPLE TE:04/26/20 00:37 [place] [id number] PHYSICIAN: JOI COATES Name Value Range Interpretation Code Description Data Renee rce(s) Supporting Document(s) ID Date Data Source [id number] 04/25/2020 09:46:00 PM EDT [facility] 1 OrderSheet [facility] Emergency Department [address] [place] [address] Phone #: ext- [phone] 04/25/2020 21:46 Patient: COREY CORTEZ Sex: F : 1990 Age: 29yWEIGHT:114.7 kg (S) HEIGHT:69 inches (S) BMI:37.4ALLERGIES: Aspirin, Reglan, ToradolCHIEF COMPLAINT: dyspneaDIAGNOSIS: Normal ExamLAB ORDERSOrder Description Priority Entered Acknowledged [facility] w [facility] 22:10 04/25/2020 Ack'd: 22:11 Lien 23:23 Nikhil Colindres R.N., R.N., M.D.;CMP STAT 22:10 04/25/2020 Ack'd: 22:11 Lien 23:23 Nikhil Colindres R.N., R.N., M.D.;Lipase STAT 22:10 04/25/2020 Ack'd: 22:11 Lien 23:23 Nikhil Colindres R.N., R.N., M.D.;PT/PTT STAT 22:10 04/25/2020 Ack'd: 22:11 Lien 23:23 Lien Cameron, Nikhil Feng Sepulveda RKariNKari Sepulveda R.N. M.D.;Troponin-T STAT 22:10 04/25/2020 Ack'd: 22:11 Lien 23:23 Lien Cameron, Nikhil Sepulveda RKariNKari Sepulveda R.N. M.D.;BNP STAT 22:10 04/25/2020 Ack'd: 22:11 Lien 23:23 Lien Cameron, Nikhil Sepulveda RKariNKari Sepulveda R.N. M.D.;D-Dimer STAT 22:10 04/25/2020 Ack'd: 22:11 Lien 23:23 Lien Cameron, Nikhil Sepulveda RKariNKari Sepulveda R.N. M.D.;HCG Serum Qual STAT 22:10 04/25/2020 Ack'd: 22:11 Lien 23:23 Lien Cameron, Nikhil Sepulveda R.NKari Sepulveda R.N. M.D.;DIAGNOSTIC STUDY ORDERSOrder Description Priority Entered Acknowledged InitialedChest 2 View STAT 22:10 04/25/2020 Ack'd: 22:11 Lien 22:16 Lien Toney(Oxygen?(No)) JoiNikhil RAshwin Sepulveda R.N. M.D.; Reason for Study: Shortness of Breath 2 OrderSheet [facility] Emergency Department [address] [place] [address] Phone #: ext- [phone] 04/25/2020 21:46 Patient: COREY CORTEZ Sex: F : 1990 Age: 29yMEDICATION/IV/DRIP/FLUID ORDERSOrder Description Priority Entered Acknowledged InitialedGENERAL ORDERSOrder Description Priority Entered Acknowledged InitialedBlood Pressure 22:10 04/25/2020 22:11 Brian,Monitor Joi, Nikhil Patterson R.N. M.D.;Budget Record Clerk 22:10 04/25/2020 22:11 Brian,(continuous) Nikhil Cameron.N. M.D.;EKG 22:10 04/25/2020 22:11 Joi Torres, Nikhil Patterson R.N. M.D.;NPO 22:10 04/25/2020 22:11 Joi Torres, Nikhil Patterson R.N. M.D.;Obtain Old EKG 22:10 04/25/2020 Ack'd: 22:11 Lien 22:12 Lien Feng Joi, Nikhildo Feng Sepulveda R.N. M.D.;Obtain Old Records 22:10 04/25/2020 Ack'd: 22:11 Lien 22:12 Lien Feng Joi, Nikhildo Feng Sepulveda R.N. M.D.;Oxygen titrate to 22:10 04/25/2020 Ack'd: 22:11 Lien 22:12 Lien Blair92% Joi, Nikhil Sepulveda R.N. M.D.;Pulse oximeter 22:10 04/25/2020 Ack'd: 22:11 Lien 22:12 Lien Feng(Continuous) Joi, Nikhildo Feng Sepulveda R.N. MKariDKari;Vitals 22:10 04/25/2020 Ack'd: 22:11 Lien 22:12 Lien Feng Tachorin, Nikhil Feng Sepulveda R.N. MKariDKari;[Electronically signed by Watson Sepulveda RN (00:11 04/26/2020)][Electronically signed by Nikhil Caemron M.D. (00:19 04/26/2020)][Electronically locked by Watson Sepulveda RN (00:11 04/26/2020)] Name Value Range Interpretation Code Description Data Renee rce(s) Supporting Document(s) ID Date Data Source [id number] 04/25/2020 09:46:00 PM EDT [facility] 1 Medication Reconciliation Report [facility] Emergency Department [address] [place] [address] Phone #: ext- [phone] 04/25/2020 21:46 Patient: COREY CORTEZ Sex: F : 1990 Age: 29yWeight: 114.7 kgHeight/Length: 69 in.BMI: 37.4ALLERGIES: Aspirin, Reglan, ToradolThe patient's Home Medications are listed below:CONTINUE TAKING THE FOLLOWING MEDICATIONS: Lasix Oral 20 mg, daily Potassium Oral, dailyThe source(s) of the original Home Medication information:Not obtained.The following Medications were given to the patient in the Emergency Department:None.The following Medications were prescribed to the patient:None. Name Value Range Interpretation Code Description Data [facility](s) Supporting Document(s) ID Date Data Source [id number] 04/25/2020 09:46:00 PM EDT [facility] 1 Medication Administration Record [facility] Emergency Department [address] [place] [address] Phone #: ext- [phone] 04/25/2020 21:46 Patient: COREY CORTEZ Sex: F : 1990 Age: 29yWeight: 114.7 kgHeight/Length: 69 inBMI: 37.4ALLERGIES: Aspirin, Reglan, ToradolDate/Time Medication Administered Medication Ordered Name Value Range Interpretation Code Description [facility] Document[facility]s) ID Date Data Source [id number] 04/25/2020 09:46:00 PM EDT [facility] 1 General Instructions [facility] Emergency Department [address] [place] [address] Phone #: ext- [phone] 04/25/2020 21:46 Patient: COREY CORTEZ Sex: F : 1990 Age: 29yNormal exam upon presentation, while in the ED and at discharge.NS Subjective Dyspnea (resolved in ER).INSTRUCTIONSFollow a low cholesterol diet and low salt diet. Avoid tobacco smoke.Warnings: Further evaluation is necessary. It is very important to follow up with a healthcare provider.GENERAL WARNINGS: Return or contact your physician immediately if your condition worsens orchanges unexpectedly, if not improving as expected, or if other problems arise. SPECIFICALLY, return ifyou develop chest pain, neck pain, jaw pain, shoulder pain, arm pain, back pain, fever, productive cough,difficulty breathing, excessive fatigue, a fluttering sensation in the chest, fainting or leg swelling.Your Current Medications: Your current home medications have been reviewed.CONTINUE TAKING THE FOLLOWING MEDICATIONS:Lasix Oral : 20 mg daily.Potassium Oral : daily.Follow-up:Return to the emergency department as needed. Follow up with your healthcare provider in three dayseven if well. Call for an appointment. Reason for referral: evaluation and treatment. Summary of careprovided to patient via paper.Understanding of the discharge instructions verbalized by patient. Expected course of illness, dischargeinstructions, activity level, diet and risks and benefits of treatment reviewed with patient and understandingverbalized. Agrees to plan of care.(Electronically signed by Nikhil Cameron M.D. 04/26/2020 00:19) 2 General Instructions [facility] Emergency Department [address] [place] [address] Phone #: ext- [phone] 04/25/2020 21:46 Patient: COREY CORTEZ Sex: F : 1990 Age: 29y Name Value Range Interpretation Code Description Data Renee rce(s) Supporting Document(s) ID Date Data Source [id number] 04/25/2020 09:46:00 PM EDT [facility] 1 Clinical Report - Nurses [facility] Emergency Department [address] [place] [address] Phone #: ext- [phone] 04/25/2020 21:46 Patient: COREY CORTEZ Sex: F : 1990 Age: 29yTRIAGEHistorian: EMS and patient.Triage time: 21:48 04/25/2020. Acuity: LEVEL 3.Chief Complaint: SHORTNESS OF BREATH.Onset. (5 AM). ( Awoke with SOB. reportedly called her fmd teacher who told her to get evaluated.). (Reports some tightness in the chest when she takes a deep breath. Her son was dx with PN.). No fever,chills, cough, wheezing or chest pain.EMS Treatment TOBACCO STEMMER:See EMS report.SEPSIS SCREEN: SIRS Screen: heart rate greater than 90. Sepsis Screen negative. No suspected orconfirmed signs of infection present. --21:51 04/25/20 Lien Sepulveda R.N.21:48 04/25/20. BP: 112/81. MAP: 91. HR: 91. RR: 18. O2 saturation: 100%. Temp: 98.4 F. Pain levelnow: 10. Additional comments: reports a global headache. --21:51 04/25/20 Lien Sepulveda R.N.Weight: 114.7 kg stated. Height/Length: 69 inches Per Patient. BMI: 37.4. --21:47 04/25/20 Lien Grier R.N.MedicationsLasix Oral 20 mg, daily. --21:52 04/25/20 Lien Sepulveda R.N. Potassium Oral, daily. --21:52 04/25/20 Lien Sepulveda R.N.AllergiesAspirin.Reglan.Toradol. --21:52 04/25/20 Lien Sepulveda R.N.PROBLEMS:Cardiomegaly.Atypical Chest Pain.Carcinoid tumor: (Removed).Av block.Syncope.Myotonic dystrophy type I.Hypothyroidism.UTI - Urinary Tract Infection.Heart Disease. 2 Clinical Report - Nurses [facility] Emergency Department [address] [place] [address] Phone #: ext- [phone] 04/25/2020 21:46 Patient: COREY CORTEZ Sex: F : 1990 Age: 29y Hiatal Hernia. Gastroesophageal Reflux Disease. --21:53 04/25/20 Lien Sepulveda R.N. The following entry was modified by Lien Sepulveda R.N., 21:53 04/25/20 Cardiomyopathy. --21:53 04/25/20 Lien Sepulveda R.N.. ADDITIONAL SURGERIES: Appendectomy. Carcinoid tumor removed. Cholecystectomy. C- Section. Hemicolectomy. Hysterectomy. Left arm surgery. Tubal Ligation. --21:53 04/25/20 Lien Sepulveda R.N. History PAST MEDICAL HX: No history of asthma, diabetes mellitus, chronic obstructive pulmonary disease or hypertension. SOCIAL HX: Never smoker. No alcohol use or drug use. She was offered HIV testing but declined and hepatitis C testing but declined. She has not traveled outside the [place] Infectious disease exposure: No infectious disease exposure. (No Known exposure to COVID). SELF HARM ASSESSMENT: Self harm assessment was performed. The patient answered "no" to the question(s) "Do you have thoughts of harming or killing yourself?" and "Do you have any dangerous items in your possession?". ABUSE ASSESSMENT: No report of abuse. FALL RISK ASSESSMENT: Fall risk assessment completed. Fall interventions initiated. Bed in low position. Brakes on. Call light in reach of patient. --21:55 04/25/20 Lien Sepulveda R.N.PHYSICAL ASSESSMENTTo room via stretcher.GENERAL / NEURO / PSYCH: Alert. Oriented X 4. Appears in no acute distress.HEENT: Mucous membranes are pink.RESPIRATORY: Respirations not labored.CVS: Capillary refill less than 2 seconds.GI / : ( D enies any symptoms. Reports nausea but no vomiting.).SKIN: Skin is warm and dry. --21:56 04/25/20 Lien Sepulveda R.N.NURSING PROGRESS NOTES21:48 04/25/20. Monitoring of patient in place. Patient gowned. Head of bed elevated. Reassurancegiven. Call light placed in reach. Bed placed in lowest position. Brakes of bed on. --21:55 04/25/20 Lien [place] Clinical Report - Nurses [facility] Emergency Department [address] [place] [address] Phone #: ext- [phone] 04/25/2020 21:46 Patient: COREY CORTEZ Sex: F : 1990 Age: 29y Feng Sepulveda R.N. EKG time: (21:56 04/25/2020). EKG was performed by a nurse and shown to the ED physician. --21:56 04/25/20 Lien Sepulveda R.N. Patient transported to radiology by wheelchair with resident physician in radiology. --22:16 04/25/20 Lien Sepulveda R.N. ( Lab at bedside after unsuccessful attempts to draw sample by nurses X2.). --22:51 04/25/20 Lien Sepulveda R.N. 22:30 04/25/20. BP: 99/66. MAP: 77. HR: 79. RR: 16. O2 saturation: 98%. --22:51 04/25/20 Lien Sepulveda R.N. The patient is calm and resting quietly. --23:23 04/25/20 Lien Sepulveda R.N. 23:15 04/25/20. BP: 101/68. MAP: 79. HR: 78. RR: 20. O2 saturation: 97%. --23:23 04/25/20 Lien Sepulveda R.N.DISPOSITION / DISCHARGE [place] Coma Scale: 15- eyes open- spontaneous (4); best verbal response- oriented (5); best motor response- obeys commands (6). Condition at departure: improved. No learning barriers present. Discharge instructions provided and reviewed. Reviewed referral to family practice for followup. Reviewed low fat diet and salt (2 GM) diet. Patient verbalized understanding. Written instructions provided in [place]. The patient was discharged home. She left ambulatory and via taxi. --00:11 04/26/20 Watson Sepulveda RN 00:09 04/26/20. BP: 96/70 (large adult cuff) taken on the left arm, via an automated monitor, while lying. MAP: 78. HR: 80 (regular, normal rate and strong). RR: 12 (regular, unlabored and normal). O2 saturation: 96% on room air. Temp: 98.2 F (oral). Pain level now: 0/10. --00:11 04/26/20 Watson Sepulveda RN Departure time: 00:11 04/26/2020. --00:11 04/26/20 Watson Sepulveda RN.Locked/Released at 04/26/2020 00:11 by Watson Sepulveda RN Name Value Range Interpretation Code Description Data Renee rce(s) Supporting Document(s) ID Date Data Source [id number] 04/25/2020 09:46:00 PM EDT [facility] 1 Clinical Report - Physicians/Mid Levels [facility] Emergency Department [address] [place] [address] Phone #: ext- [phone] 04/25/2020 21:46 Patient: COREY CORTEZ Sex: F : 1990 Age: 29y Time Seen: 21:59 04/25/2020; initial patient contact. Arrived- By ambulance. Historian- patient. Disposition decision: 23:57 04/25/2020.HISTORY OF PRESENT ILLNESS Chief Complaint: DYSPNEA. This started today 17 hours ago and is now gone. It was gradual in onset and has been intermittent and waxing/waning. The dyspnea is described as mild and is worsened by walking and is improved by rest. No cough, sputum production, fever, sweating episodes or wheezing. No chills, chest pain or discomfort, calf pain or foot swelling. No anxiety, dizziness, tingling, numbness or palpitations. (pt had on/off SOB today since 5 am w intermittent chest tightness; SOB worse w exertion and deep breaths; pt has son recently dxed w PNA but she has no other Sx). Similar symptoms previously. Patient has had similar symptoms occasionally. ( pt has Hx of cardiomyopathy sec ondary to muscular dystrophy). Recent medical care: Not recently seen/assessed.REVIEW OF SYSTEMSThe patient has not had weight loss. No muscle aches, eye irritation, sore throat, nasal discharge or sinusdrainage. No nausea, vomiting, abdominal pain, diarrhea or black stools. No bloody stools, headache,fainting episodes, blurred vision or difficulty with urination. No excessive urination, skin rash, enlargedlymph nodes or joint pain. All other systems reviewed and are negative.PAST HISTORYSee nurses notes. Problems: Cardiomyopathy. Cardiomegaly. Atypical Chest Pain. Carcinoid tumor. Av block. Syncope. Myotonic dystrophy type I. Hypothyroidism. UTI - Urinary Tract Infection. Heart Disease. Hiatal Hernia. Gastroesophageal Reflux Disease. 2 Clinical Report - Physicians/[facility] Emergency Department [address] [place] [address] Phone #: ext- [phone] 04/25/2020 21:46 Patient: COREY CORTEZ Sex: F : 1990 Age: 29y Additional Surgeries: Appendectomy. Carcinoid tumor removed. Cholecystectomy. C- Section. Hemicolectomy. Hysterectomy. Left arm surgery. Tubal Ligation. Medications: Potassium Oral, daily. Lasix Oral 20 mg, daily. Allergies: Aspirin. Reglan. Toradol.SOCIAL HISTORYNever smoker. No alcohol use or drug use.ADDITIONAL NOTESThe nursing notes have been reviewed with agreement regarding the chief complaint, HPI, ROS, PMH andpatient medications and allergies.PHYSICAL EXAMVital Signs: 04/25/2020 21:48 BP: 112/81. MAP: 91. HR: 91. RR: 18. O2 saturation: 100%. Temp: 98.4 F.Pain level now: 7/10. Oxygen saturation normal.Appearance: Alert. No acute distress.Eyes: Pupils equal, round and reactive to light. Eyes normal inspection.ENT: Ears normal. Nose normal. Pharynx normal. Uvula midline.Neck: Normal inspection. No jugular venous distention. Neck supple.CVS: Normal heart rate and rhythm. Heart sounds normal. Pulses normal.Respiratory: No respiratory distress. Painless inspiration. Breath sounds normal.Abdomen: Soft and nontender. No organomegaly.Back: Normal inspection. No CVA tenderness.Skin: Skin warm and dry. Normal skin color. No rash. Normal skin turgor.Extremities: Extremities exhibit normal ROM. No lower extremity edema. No calf tenderness. No lowerextremity edema.Neuro: Oriented X 3. No motor deficit. No sensory deficit. Reflexes normal.LABS, X-RAYS, AND EKGEKG: No acute process. No acute ischemia. Normal EKG. Normal sinus rhythm. Rate: 79/min. 3 Clinical Report - Physicians/Mid Levels [facility] Emergency Department [address] [place] [address] Phone #: ext- [phone] 04/25/2020 21:46 -------- Patient: COREY CORTEZ Sex: F : 1990 Age: [address] Normal [address] and T waves. EKG unchanged when compared with prior EKG. (September 27 2019).The study has been interpreted contemporaneously by me. The EKG appears to be a good tracing.Interpretation time: 22:05 04/25/2020.Chest X-ray: No acute disease. Views: PA and lateral. Technique: good. The X-rays were interpretedcontemporaneously by me. Interpretation time: 22:23 04/25/20 20.Laboratory Tests: Laboratory tests have been ordered, with results reviewed and considered in themedical decision making process.CBC w Diff: (DEON: 04/25/2020 23:04) ( MsgRcvd 04/25/2020 23:08) Final results Test Result Flag Units (Reference) CBC W/AUTOMATED DIFF COMPLETE BLOOD COUNT WBC 7.4 10/uL (4.2 - 11.0) RBC 4.69 10/uL (4.20 - 5.40) HEMOGLOBIN 14.9 g/dL (12.0 - 16.0) HEMATOCRIT 44.2 % (37.0 - 47.0) MCV 94.2 fL (81.0 - 101) MCH 31.8 pg (27.0 - 34.0) MCHC 33.7 g/dL (31.0 - 36.0) RDW 12.7 % (11.5 - 14.5) PLATELETS 187 10/uL (150 - 450) MPV 10.8 H fL (7.4 - 10.4) NEUT 72.5 % (37.0 - 80.0) LYMPH 20.6 L % (25.0 - 40.0) MONO 5.7 % (3.0 - 8.0) EOS 0.5 % (0.0 - 7.0) BASO 0.4 % (0.0 - 2.5) %IG 0.3 H % (0.0 - 0.0) %NRBC 0.0 % (0.0 - 0.0) #NEUT 5.38 10/uL (2.00 - 6.90) #LYMPH 1.53 10/uL (0.60 - 3.40) #MONO 0.42 10/uL (0.00 - 0.90) #EOS 0.04 10/uL (0.00 - 0.70) #BASO 0.03 10/uL (0.00 - 0.20) #IG 0.02 10/uL (0.00 - 0.10) #NRBC 0.00 10/uL (0.00 - 0.00) MANUAL DIFF NOT INDICATED RBC MORPH NOT INDICATEDCMP: (DEON: 04/25/2020 23:04) ( MsgRcvd 04/25/2020 23:31) Final results Test Result Flag* * Units (Reference) COMPREHENSIVE METABOLIC PANEL COMPREHENSIVE METABOLIC PANEL SODIUM 136 mEq/L (134 - 153) POTASSIUM 3.7 mEq/L (3.6 - 5.0) CHLORIDE 96 L mEq/L (98 - 107) CO2 26 MEQ/L (22 - 30) GLUCOSE 99 MG/DL (65 - 110) BUN 23 H MG/DL (7 - 21) CREATININE 0.8 MG/DL (0.7 - 1.5) BUN/CREAT 29 H (8 - 27) TOTAL PROTEIN 7.9 G/DL (6.3 - 8.2) ALBUMIN 4.6 G/DL (3.9 - 5.0) GLOBULIN 3.3 H GM/DL (2.4 - 3.2) A/G RATIO 1.4 (0.8 - 2.0) CALCIUM 9.5 MG/DL (8.4 - 10.2) 4 Clinical Report - Physicians/Mid Levels [facility] Emergency Department [address] [place] [address] Phone #: ext- [phone] 04/25/2020 21:46 Patient: COREY CORTEZ Sex: F : 1990 Age: 29y TOTAL BILI <0.7 MG/DL (0.2 - 1.3) ALKALINE PHOS 109 U/L (38 - 126) SGOT/AST 41 H U/L (5 - 40) SGPT/ALT 33 U/L (7 - 56) ANION GAP 14.0 mmol/L (8.0 - 16.0) AGE 29 yrs NON-AA GFR >60 mL/min AFR AMER GFR >60 mL/min Male GFR Interprentation 20-49 yrs >60 mL/min Roqrnd61-77 yrs >56 mL/min Normal 60-69 yrs >49 mL/min Normal 70-79yrs>42 mL/min Normal 80 and above >35 mL/min Normal Female GFRInterpretation 20-39 yrs >60 mL/min Normal 40-49 yrs >58 mL/minNormal 50-59 yrs >51 mL/min Normal 60-69 yrs >45 mL/min Yazqxg97-18 yrs >39 mL/min Normal 80 and above >32 mL/min NormalLipase: (DEON: 04/25/2020 23:04) ( PrgRcvd 04/25/2020 23:31) Final results Test Result Flag Units (Reference) LIPASE 22 U/L (13 - 60)PT/PTT: (DEON: 04/25/2020 23:04) ( MsgRcvd 04/25/2020 23:16) Final results Test Result Flag Units (Reference) PROTIME 12.3 SECONDS (11.0 - 15.5) INR 0.91 L (0.93 - 1.23) PTT 28.7 SECONDS (24.8 - 36.7) \\BLDo\\INR INTERPRETATION\\BLDx\\ Therapeutic range for Coumadin andrelated oral anticoagulants. -International Normalized Ratio (INR): 2.0 - 3.0 for VenousThrombosis, Pulmonary Embolus, Tissue heart valves, Acute NC Atrial Fibrillation, Valvular heart diseaseand recurrent Systemic Embolism. -International Normalized Ratio (INR): 2.5 - 3.5 forMechanical Prosthetic valve.Troponin-T: (DEON: 04/25/2020 23:04) ( MsgRcvd 04/25/2020 23:31) Final results Test Result Flag Units (Reference) TROPONIN T <0.01 NG/ML (0.00 - 0.10) TROPONIN T0.1 ng/ml Recommended as the clinical threshold value forTroponin T.BNP: (DEON: 04/25/2020 23:04) ( MsgRcvd 04/25/2020 23:49) Final results Test Result Flag Units (Reference) BNP 89 PG/ML (0 - 125)D-Dimer: (DEON: 04/25/2020 23:04) ( MsgRcvd 04/25/2020 23:16) Final results Test Result Flag Units (Reference) D-DIMER QUANT 0.27 ug/mL (0.27 - 0.50)Beta-HCG, Qual Serum: (DEON: 04/25/2020 23:04) ( MsgRcvd 04/25/2020 23:18) Final results Test Result Flag Units (Reference) HCG SERUM QUAL NEGATIVE (NORMAL: NEGAT HCG SERUM QL REENTER NEGATIVE (NORMAL: NEGAT { KIT LOT # [id number] ){ KIT EXP DATE04/24/21 ){ PROCEDURAL CONTROL VALID)Chest 2 View: (DEON: 04/25/2020 22:10) ( MsgRcvd 04/25/2020 22:25) In Progress 5 Clinical Report - Physicians/Mid Levels [facility] Emergency Department [address] [place] [address] Phone #: ext- [phone] 04/25/2020 21:46 Patient: COREY CORTEZ Sex: F : 1990 Age: 29y CHEST 2 VIEWS Reason(s): Shortness of Breath T RANSPORTATION: WC IV? O2? Oxygen?(No) Room: ED.PROGRESS AND PROCEDURESCourse of Care: 22:21 04/25/20. pt is totally asymptomatic in ER w nml vitals and nml exam; asked if shehas any stress at home and she denies it; pt well know to us for multiple ER visits; will cardiac workup andmonitor 23:55 04/25/20. workup all in and reviewed and nml, incl. troponin, d-dimer, BNP and CXR; pt is still asymptomatic in ER w nml vitals and no monitor abnormality; will d/c home and advised to f/u w STUDENT DEVELOPMENT COORDINATOR in next week; pt agrees. Patient counseled in person regarding the patient's stable condition, test results, diagnosis and need for follow-up. Patient agrees with plan of care. Disposition: Condition: good and stable. Discharge decision based on the following: patient's condition is stable; patient's condition is improved; patient is ambulatory; patient is active; patient drinking fluids; patient eating; patient's pain is controlled; patient's exam is improved; no abnormal test results; improving condition on multiple repeat evaluations; social support is good; transportation is available; follow-up is available; clinical impression is consistent with outpatient treatment.CLINICAL IMPRESSION Normal exam upon presentation, while in the ED and at discharge. NS Subjective Dyspnea (resolved in ER).INSTRUCTIONS Follow a low cholesterol diet and low salt diet. Avoid tobacco smoke. Warnings: Further evaluation is necessary. It is very important to follow up with a healthcare provider. GENERAL WARNINGS: Return or contact your physician immediately if your condition worsens or changes unexpectedly, if not improving as expected, or if other problems arise. SPECIFICALLY, return if you develop chest pain, neck pain, jaw pain, shoulder pain, arm pain, back pain, fever, productive cough, difficulty breathing, excessive fatigue, a fluttering sensation in the chest, fainting or leg swelling. Your Current Medications: Your current home medications have been reviewed. CONTINUE TAKING THE FOLLOWING MEDICATIONS: 6 Clinical Report - Physicians/Mid Levels [facility] Emergency Department [address] [place] [address] Phone #: [phone] 04/25/2020 21:46 Patient: COREY CORTEZ Sex: F : 1990 Age: 29y Lasix Oral : 20 mg daily. Potassium Oral : daily. Follow-up: Return to the emergency department as needed. Follow up with your healthcare provider in three days even if well. Call for an appointment. Reason for referral: evaluation and treatment. Summary of care provided to patient via paper. Understanding of the discharge instructions verbalized by patient. Expected course of illness, discharge instructions, activity level, diet and risks and benefits of treatment reviewed with patient and understanding verbalized. Agrees to plan of care.(Electronically signed by Nikhil Cameron M.D. 04/26/2020 00:19) Name Value Range Interpretation Code Description Data Renee rce(s) Supporting Document(s) ID Date Data Source [id number] 04/25/2020 11:08:00 PM EDT [facility] Name Value Range Interpretation Code Description Data Renee rce(s) Supporting Document(s) CBC W/AUTOMATED DIFF [facility] COMPLETE BLOOD COUNT Leukocytes [#/volume] in Blood by Automated count 7.4 10^3/uL 4.2 - 1 1.0 [facility] Erythrocytes [#/volume] in Blood by Automated count 4.69 10^6/uL 4. 20 - 5.40 [facility] Hemoglobin [Mass/volume] in Blood 14.9 g/dL 12.0 - 16.0 [facility] Hematocrit [Volume Fraction] of Blood by Automated count 44.2 % 3 7.0 - 47.0 [facility] Erythrocyte mean corpuscular volume [Entitic volume] by Auto mated count 94.2 fL 81.0 - 101 [facility] Erythrocyte mean corpuscular hemoglobin [Entitic mass] by Automated count 31.8 pg 27.0 - 34.0 [facility] Erythrocyte mean corpuscular hemoglobin concentration [Mass/volume] by Automated count 33.7 g/dL 31.0 - 36.0 [facility] Erythrocyte distribution width [Ratio] by Automated count 12.7 % 11.5 - 14.5 [facility] Platelets [#/volume] in Blood by Automated count 187 10^3/uL 150 - 45 0 [facility] Platelet mean volume [Entitic volume] in Blood by Automated count 10.8 fL 7.4 - 10.4 H [facility] Neutrophils/100 leukocytes in Blood by Automated count 72.5 % 37. 0 - 80.0 [facility] Lymphocytes/100 leukocytes in Blood by Manual count 20.6 % 25.0 - 40.0 L [facility] Monocytes/100 leukocytes in Blood by Automated count 5.7 % 3.0 - 8.0 [facility] Eosinophils/100 leukocytes in Blood by Automated count 0.5 % 0.0 - 7.0 [facility] Basophils/100 leukocytes in Blood by Automated count 0.4 % 0.0 - 2.5 [facility] %IG 0.3 % 0.0 - [facility].0 [facility] % 0.0 - 0.0 [facility] al Neutrophils [#/volume] in Blood by Automated count 5.38 10^3/uL 2.00 - 6.90 [facility] Lymphocytes [#/volume] in Blood by Automated count 1.53 10^3/uL 0.60 - 3.40 [facility] Monocytes [#/volume] in Blood by Automated count 0.42 10^3/uL 0.00 - 0.90 [facility] Eosinophils [#/volume] in Blood by Automated count 0.04 10^3/uL 0.00 - 0.70 [facility] Basophils [#/volume] in Blood by Automated count 0.03 10^3/uL 0.00 - 0.20 [facility] #IG 0.02 10^3/uL 0.00 - 0.10 [facility] #NRBC 0.00 10^3/uL 0.00 - 0.00 [facility] MANUAL DIFF NOT INDICATED [facility] RBC MORPH NOT INDICATED [facility] ID Date Data Source [id number] 04/25/2020 11:49:00 PM EDT [facility] Name Value Range Interpretation Code Description Data Renee rce(s) Supporting Document(s) BNP 89 PG/ML 0 - 125 [facility] ID Date Data Source [id number] 04/25/2020 11:18:00 PM EDT [facility] Name Value Range Interpretation Code Description Data Renee rce(s) Supporting Document(s) HCG SERUM QUAL NEGATIVE NORMAL: NEGATIVE [facility] HCG SERUM QL REENTER NEGATIVE NORMAL: NEGATIVE [facility] { KIT LOT # [id number] ){ KIT EXP DATE 04/24/21 ){ PROCEDURAL CONTROL VALID ) ID Date Data Source [id number] 04/25/2020 11:16:00 PM EDT [facility] Name Value Range Interpretation Code Description Data Renee rce(s) Supporting Document(s) Prothrombin time (PT) 12.3 SECONDS 11.0 - 15.5 [facility] INR in Platelet poor plasma by Coagulation assay 0.91 0.93 - 1. 23 L [facility] aPTT in Blood by Coagulation assay 28.7 SECONDS 24.8 - 36.7 [facility] \\BLDo\\INR INTERPRETATION\\BLDx\\ Therapeutic range for Coumadin and related oral anticoagulants. - International Normalized Ratio (INR): 2.0 - 3.0 for Venous Thrombosis, Pulmonary Embolus, Tissue heart valves, Acute NC Atrial Fibrillation, Valvular heart disease and recurrent Systemic Embolism. - International Normalized Ratio (INR): 2.5 - 3.5 for Mechanical Prosthetic valve. ID Date Data Source [id number] 04/25/2020 11:31:00 PM EDT [facility] Name Value Range Interpretation Code Description Data Renee rce(s) Supporting Document(s) Lipase [Enzymatic activity/volume] in Serum or Plasma 22 U/L 13 - 60 [facility] ID Date Data Source [id number] 04/25/2020 11:31:00 PM EDT [facility] Name Value Range Interpretation Code Description Data Renee rce(s) Supporting Document(s) COMPREHENSIVE METABOLIC PANEL [facility] COMPREHENSIVE METABOLIC PANEL Sodium [Moles/volume] in Serum or Plasma 136 mEq/L 134 - 153 [facility] Potassium [Moles/volume] in Serum or Plasma 3.7 mEq/L 3.6 - 5.0 [facility] Chloride [Moles/volume] in Serum or Plasma 96 mEq/L 98 - 107 L [facility] Carbon dioxide, total [Moles/volume] in Serum or Plasma 26 MEQ/L 22 - 30 [facility] Glucose [Mass/volume] in Serum or Plasma 99 MG/DL 65 - 110 [facility] BUN 23 MG/DL 7 - 21 H [facility] al Creatinine [Mass/volume] in Serum or Plasma 0.8 MG/DL 0.7 - 1.5 [facility] BUN/CREAT 29 8 - 27 H [facility] Protein [Mass/volume] in Serum or Plasma 7.9 G/DL 6.3 - 8.2 [facility] Albumin [Mass/volume] in Serum or Plasma 4.6 G/DL 3.9 - 5.0 [facility] Globulin [Mass/volume] in Serum by calculation 3.3 GM/DL 2.4 - 3.2 H [facility] A/G RATIO 1.4 0.8 - 2.0 [facility] Calcium [Mass/volume] in Serum or Plasma 9.5 MG/DL 8.4 - 10.2 [facility] Bilirubin.total [Mass/volume] in Serum or Plasma <0.7 MG/DL 0.2 - 1.3 [facility] Alkaline phosphatase [Enzymatic activity/volume] in Serum or Plasma 109 U/L 38 - 126 [facility] Aspartate aminotransferase [Enzymatic activity/volume] in Serum or Plasma 41 U/L 5 - 40 H [facility] Alanine aminotransferase [Enzymatic activity/volume] in Seru m or Plasma 33 U/L 7 - 56 [facility] Anion gap 3 in Serum or Plasma 14.0 mmol/L 8.0 - 16.0 [facility] AGE 29 yrs [facility] al NON-AA GFR >60 mL/min [facility] ital AFR AMER GFR >60 mL/min [facility] Male GFR In terprentation 20-49 yrs >60 mL/min Normal 50-59 yrs >56 mL/min Normal 60-69 yrs >49 mL/min Normal 70-79yrs >42 mL/min Normal 80 and above >35 mL/min Normal Female GFR Interpretation 20-39 yrs >60 mL/min Normal 40-49 yrs >58 mL/min Normal 50-59 yrs >51 mL/min Normal 60-69 yrs >45 mL/min Normal 70-79 yrs >39 mL/min Normal 80 and above >32 mL/min Normal ID Date Data Source [id number] 04/25/2020 11:31:00 PM EDT [facility] Name Value Range Interpretation Code Description Data Renee rce(s) Supporting Document(s) TROPONIN T <0.01 NG/ML 0.00 - 0.10 [facility] ospital TROPONIN T0.1 ng/ml Recommended as the c linical threshold value forTroponin T. ID Date Data Source [id number] 04/25/2020 11:16:00 PM EDT [facility] Value Range Interpretation Code Description Data Renee rce(s) Supporting Document(s) Fibrin D-dimer FEU [Mass/volume] in Platelet poor plasma 0.27 ug /mL 0.27 - 0.50 [facility] ID Date Data Source [id number] 04/25/2020 05:25:55 PM EDT [facility] Name Value Range Interpretation Code Description Data Renee rce(s) Supporting Document(s) Progress Note [facility] [id number] lbm [file] [id number]= ID Date Data Source [id number] 04/24/2020 08:05:00 AM EDT [facility] [address] [place] [address]. [address] [place] [id number] [place] [phone] Fax: Bariatrics P : [phone] Signed Patient: Corey Cortez Acct:[id number] Visit Date: 04/24/20 : 1990 Intake Vital Signs 04/24/20 08:38 Height 5 ft 9 in Weight 117.197 kg BMI 38.1 BP 110/80 Blood Pressure Location Left Arm Position Sitting / Chair Respiration 14 Pulse 65 Pulse Source O2 sat Monitor Temp 97.8 F Temp Source Temporal Artery Scan Pulse Oximetry (%) 98 Oxygen Delivery Method room air Intake Patient Status Have you had an UC/ED visit and/or been admitted to the hospital since your last visit?: No Have you been diagnosed with COVID-19?: No Visit Reasons: New Patient/Online seminar 04/13/20 Nurse Note: Patient here for initial consult. She is interested in the Manjula with Dr. Conklin. Mold Injector Required: No Is patient in pain?: No Primary Care Physician:: Dr. Garcia Have you smoked within the past year: No Allergies aspirin Allergy (Verified 04/24/20 08:14) metoclopramide [From Reglan] Allergy (Verified 04/24/20 08:14) tramadol Allergy (Verified 04/24/20 08:14) Home Medications - Last Reconciled 04/24/20 by Darío Peace LPN furosemide 20 mg tablet (Lasix) 20 mg PO DAILY Patient understands their medications: Yes Patient given information on their new medications: No History of Smoking/Tobacco Use: Never Smoker Annual Influenza Vaccine: Yes Pneumococcal Vaccine (+65): No Immunizations up to date: Yes Patient or : No Recent Travel Travel Outside of the country in last 30 days?: No Mask given: No PFSH - [place] [facility] [place] [facility] Cardiomyopathy Gastrointestinal dysmotility Morbid obesity due to excess calories Myotonic dystrophy Surgical History H/O section x 3 H/O right hemicolectomy H/O: hysterectomy S/P laparoscopic appendectomy S/P laparoscopic cholecystectomy Family History Father Diabetes mellitus Mother Hypothyroidism Social History Alcohol Use: None Substance Use: never Review of Systems - BA Constitutional Constitutional: positive Appetite changes, positive Fatigue and positive Weight gain Eyes Eyes: negative Vision changes Cardiovascular Cardiovascular: negative Chest pain - rest, negative Palpitations, negative Syncope, negative Peripheral edema, positive Dizziness, negative Chest pain - exercise, negative Decreased exercise tolerance and negative Exertional dyspnea Respiratory Respiratory: negative Cough, negative Sputum production and negative Shortness of breath Gastrointestinal Gastrointestinal: positive Abdominal pain, positive Bloating, positive Nausea, negative Vomiting, negative Dysphagia, negative Reflux/heartburn, negative Constipation and positive Diarrhea Musculoskeletal Musculoskeletal: positive New joint pain, positive Back pain and positive Muscle weakness Neurologic Neurologic: negative Dizziness, positive Headache and negative Memory problems Psychiatric Psychiatric: negative Anxiety and negati ve Depression Bariatric HPI HPI HPI Details: 04/24/2020 Fred is a very pleasant 29-year-old white female with a history of class 2 type obesity. she is interested in laparoscopic Manjula-en-Y gastric bypass with Dr. Conklin. Her insurance is [employer] and she will require 6 months of follow-up appointments. Fred reports that she has been obese for greater than 5 years. Her weight today is 258 lb with a BMI of 38.1%. Her health conditions include cardiomyopathy, myoclonic dystrophy, chronic nausea. She has extensive surgical history including cholecystectomy, hemicolectomy 3 years ago, appendectomy, and . She is currently seeing a nutrition assistant for chronic nausea. Bethreports that she has been obese for greater than 5 years. She has attempted weight loss using several methods including portion control, dietary consultation, prescription weight loss medications, and increased exercise with gym membership. She does managed to lose somewhere between5-20 lb with each attempt but the weight returns when the program ends. She is concerned that her weight will have fact her cardiomyopathy. 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 We discussed the lifestyle changes necessary to incorporate with weight loss surgery including diet and exercise. Bariatrics Exam Const General: Cooperative, Healthy appearing, Comfortable and No acute d istress Nutritional Appearance: Obese Obese: Class II (35-39.9 kg/m2) Orientation: Alert and Oriented x3 HENMT Head: Normal to inspection Ears: Hearing grossly normal bilaterally Nose: External nose normal Face and sinus: Normal face exam Eyes General: Appearance normal, both eyes and all related structures Chest Chest: Normal inspection of the chest Resp Effort Inspection: Normal respiratory effort and Able to speak in complete sentences Auscultation: Clear to auscultation bilaterally Cardio Rate: Regular rate Heart Sounds: S1 normal and S2 normal GI Inspection: Normal to inspection Palpation: Soft and No hepatosplenomegaly Skin General Skin Exam: No rashes or lesions noted Neuro General: Alert and Oriented x3 Cognition: Normal cognition Speech: Speech normal Extrem Extremety: Normal to inspection, Full ROM, No pedal edema, No calf tenderness and Normal gait Psych Appearance: Grossly normal Mental Status: Mental status grossly normal Speech and Movement: Speech and movement normal Affect: Normal affect Attitude: Cooperative Insight: Insight good Judgement: Judgement good Assessment Plan (AMB) Assessment Plan (1) Morbid obesity due to excess calories: Status: Acute Code(s): E66.01 - Morbid (severe) obesity due to excess calories SNOMED Code(s): 948097431 Category: Medical Plan: Fred is a pleasant 29-year-old female with a history of obesity. She is interested in gastric bypass with Dr. Conklin We discussed the process for moving forward with surgery and she is amenable to the plan. Orders were cathie kiara for routine labs, EKG, chest x-ray an EGD. Referral to nutrition and psychology submitted. Letter support and PCP clearance requested. She was instructed to make her next clinical appointment in 1 month. (2) Gastrointestinal dysmotility: Status: Acute Code(s): K92.89 - Other specified diseases of the digestive system SNOMED Code(s): 039210438 Category: Medical (3) Myotonic dystrophy: Status: Acute Code(s): G71.11 - Myotonic muscular dystrophy SNOMED Code(s): 418662254 Category: Medical (4) Cardiomyopathy: Status: Acute Code(s): I42.9 - Cardiomyopathy, unspecified SNOMED Code(s): 41853533 Category: Medical (5) S/P laparoscopic cholecystectomy: Status: Acute Code(s): Z90.49 - Acquired absence of other specified parts of digestive tract SNOMED Code(s): 187204408 Category: Surgical (6) H/O right hemicolectomy: Status: Acute Code(s): Z90.49 - Acquired absence of other specified parts of digestive tract SNOMED Code(s): 626895990 Category: Surgical (7) S/P laparoscopic appendectomy: Status: Acute Category: Surgical (8) H/O: hysterectomy: Status: Acute Code(s): Z90.710 - Acquired absence of both cervix and uterus SNOMED Code(s): 926809691 Category: Surgical Problems Did you add a problem (diagnosis code) to the patient?: Yes Medications Patient given information on their new medications: No Coding Level of Care Code 28955 New Patient Level 3 Exam Comprehensive Diagnoses Morbid obesity due to excess calories E66.01 Gastrointestinal dysmotility K92.89 Myotonic dystrophy G71.11 Cardiomyopathy I42.9 S/P laparoscopic cholecystectomy Z90.49 H/O right hemicolectomy Z90.49 S/P laparoscopic appendectomy H/O: hysterectomy Z90.710 Time Spent (min) 25 Signed By:Patricia Dougherty <<Signature on File>> Signed Date/Time: 04/27/20 1339 Co-Signer: Co-Signed Date/Time: Initializing User: Patricia Dougherty NP 04/24/20804 4 4 Name Value Range Interpretation Code Description Data Renee rce(s) Supporting Document(s) ID Date Data Source [id number] 04/14/2020 11:42:47 PM EDT [facility] Name Value Range Interpretation Code Description Data Renee rce(s) Supporting Document(s) Progress Note [facility] [id number]fHQyFkGoNpFEI6 lbm [file] o= ID Date Data Source [id number] 04/01/2020 03:54:42 PM EDT [facility] Name Value Range Interpretation Code Description Data Renee rce(s) Supporting Document(s) ED Provider Note [facility] [id number]MlY0CjBAG5qD9eSGZ6PUqSBsOdXySiJZPt lbm [file] arWiTPptbyTRSwfszjcmJ5GuMgmOvFWbtvWBpaltgl CErtfNOHqAFcaSrBRBqiKNMJEX/soRW4UUugdIZN3czpZqLLPc6RH5DcPSzfW6WCfzCFIRD6jo13Mmde g4OHE1NxWuU5l+DyYcDyvE15EL4bohQu3yFrluIRpjv3KOaKLBJ2OiAKm5kIeTAlixdnBRAyV3zcRlO9 2ao7o8Xz/vPDmwX9k1XRdZufsowVHFpiO/8t1qDATe eXublhZ4I1/Jp516Xm3adG5aT7vHDN3M7H/2XSliPV6CaIXOJyF7xO10oJDA37OE+iZJTfENkXzVKd8m ex9l9G6yH/mGP0mHSAfmwSxBluygOyeE6x9hUdgyn3jufKoUMl8MvLsnuvREKj8zlP4h39oxZ6a5ZL8f MzyTzojh18aTbxkl3EhCMk46a1LID4mGPpPNBlfWGe 3wvezS6TK5YlEm6gT/2iR++6LsmcGhZ1n7Gs7D3elJl+7d2OaP1I2TrF1c2mBMErdWd+ZCRyss2qAToB J8iVKbbEHs0f70tjgx2tu0MH9WcdWS4iMGUtMMFPs8GwnOBw6hU4E10pBimVlud0Nm7vmD8akh5QtODW fWuCYUffNds1J7dlyegbKeCn+vYpXN130l0awS2ui1 B1r2KAMgFKbqCKIcFiUpJIxLzwITWWISk8WEmQ+wbLAhfoSZG4UnrXvaweOuXrJzhH/6aXUiVj6fXVo2 55PsrlykJEz8cwg9TNdn6MlCaxaKiB0XtRkRAMZSygzFYv+DXtf4+g8ceSXkR7MiRa9pfK6Cj1B6SEPd 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 audit expert+01t2Kp7L+cx8DiRTaKyz1/1BklQMi1UFAsva [file] ICAgICAgICAgICAgICAgICAgICAgICAgICAgICAgICAgICAgICAgICAgICAgICAgICAgICAgICAgICAg ICAgICANCiAgICAgICAgICAgICAgICAgICAgICAgIC AgICAgICAgICAgICAgICAgICAgICAgICAgICAgICAgICAgICAgICAgICAgICAgICAgICAgICAgICAgIC AgICAgICAgICAgICAgICANCiAgICAgICAgICAgICAgICAgICAgICAgICAgICAgICAgICAgICAgICAgIC AgICAgICAgICAgICAgICAgICAgICAgICAgICAgICAg ICAgICAgICAgICAgICAgICAgICAgICAgICANCiAgICAgICAgICAgICAgICAgICAgICAgICAgICAgICAg ICAgICAgICAgICAgICAgICAgICAgICAgICAgICAgICAgICAgICAgICAgICAgICAgICAgICAgICAgICAg ICAgICAgICANCiAgICAgICAgICAgICAgICAgICAgIC AgICAgICAgICAgICAgICAgICAgICAgICAgICAgICAgICAgICAgICAgICAgICAgICAgICAgICAgICAgIC AgICAgICAgICAgICAgICAgICANCiAgICAgICAgICAgICAgICAgICAgICAgICAgICAgICAgICAgICAgIC AgICAgICAgICAgICAgICAgICAgICAgICAgICAgICAg ICAgICAgICAgICAgICAgICAgICAgICAgICAgICANCiAgICAgICAgICAgICAgICAgICAgICAgICAgICAg ICAgICAgICAgICAgICAgICAgICAgICAgICAgICAgICAgICAgICAgICAgICAgICAgICAgICAgICAgICAg ICAgICAgICAgICANCiAgICAgICAgICAgICAgICAgIC AgICAgICAgICAgICAgICAgICAgICAgICAgICAgICAgICAgICAgICAgICAgICAgICAgICAgICAgICAgIC AgICAgICAgICAgICAgICAgICAgICANCiAgICAgICAgICAgICAgICAgICAgICAgICAgICAgICAgICAgIC AgICAgICAgICAgICAgICAgICAgICAgICAgICAgICAg ICAgICAgICAgICAgICAgICAgICAgICAgICAgICAgICANCiAgICAgICAgICAgICAgICAgICAgICAgICAg ICAgICAgICAgICAgICAgICAgICAgICAgICAgICAgICAgICAgICAgICAgICAgICAgICAgICAgICAgICAg ICAgICAgICAgICAgICANCjw/vNElX0jhhIIhgyH4E0 ylMj6TVv3MGM7kw4CkSJFwWFpapmYkShvHJqLmTBFtRkvTWym2HBpkUJ1DpNLaI9CxE1RdCZoqJQ7GTJ FeUUEcmYRjAATaUGQsLiR2BEQdBDpjMX4QdATrDJatQESrNPPzUmOyAYXvNLFaQHTlPMDwHDPOIHDiIT DfObPnCEHoOMShDCueDSMCSWQ6TQYhHkNjXNSsSFRm KdUhGNYKGCT7GRRjHxIyXpJtYNCePwtlFMXACCDwGMSoLmCrIcGlDAGoKG1CNIAaL862gzHaZMWHSt2+ DFzvgzAzNnpSEpI3HWNeu5ChLHb3FA3CURNqTbhgf5PhZLqtXNOTVPivDM8CWHT9VWO3YDZgFm5EQZHw P493jfMnPu7HPx3WXuNyIC4qbq2TPTixRMCaDpyHLn i1RMlgIL9PaEWgUCcDVXKShi26pHHomvWOe2NrurKkzGYXQTYzbLLwTRZcGPOxe9RrOBNWNSRzuRF6De VqWfIsUOWoPLctSUTEMPgAXiSzB8Wmu7MjJqN5RIJzKuZyIWqoUXYfLfQhPJ09fSrmTI5AQZZzDKUyRI 01ZFH3CNDeYt4OWRMaHqeaa4IxIHynXWVBYNaoKY7J ZFO7VJI6UAAyYn0ASMXrV204lwSiLSBTRpLwP79mxPMkETegASWNQYj+Tm4WOR4nc5FmDHh1PCBfHL3o yi1NGEfCZiUcX4VcdEdkYMAxbzUpd96pAYqKHhEzZ6Xyp1WuVpBtWuDkEVYjA6ySIcPbHJXhBPPhpMqp FM9BHzHlI5SykhUzvSQ2PvGeYKOKHw7+DQplbmRvYm lBPbG2ZEMqq2XyIQb0YQ8PRYBtXZj6cDGjJTPoXIBblnruEKYfXj04NWIwLwskCLF8wohytvBHWOJsB0 2anvqhFJFmXUDjUW34VjDaUaBiZGY9YMHkRJ1mLCyhEK9DKQB0SZnmEzHqQWIYVC8MKMlcPLS2LCzkhc RqlXCtWBibLC8GCRBddxGzJIIkYRAKUEzkDG1VbkO0 TBO4FYGwKz4CFSJdMkU3dGU0VWXiRMTKSy3+EIhymyVaEnwHWsSbHIXlm9UnYBx9QW6JFWMoYAg5yXFz IVCwNk61NHXmIhdvHUTmV9ojBLVAbr1ymPNwRBHNKWG7DOvlWT8mRYVvZVG2IhV5RIXPWV5YRHZqFBDq fGDbHIBsWYXqYoWjIXneRPMfEARuDD96kZqqTS7AYH RmWQFpFQ29ZNN9XAAmNd2GYIDhDVLzssO0XLJsGRWNJyHfL00kxRBbZsIqDMWLYUd+Px1IIT4oq6MtAQ r7ZHLrNN7nas0VYPdAMkLkK7FjjOvyYBVLVE6bjVChUOX9CK8qE4qpqnCIKQSlV6djB60fPHJHYTJ1FQ qzDE8oSSPoVJT9MwN5PRNWVO1ISXMpNQQxeYXtJEOp IEUrBxGgKRzaXBFsXtK8KN77pRzrCY6IFSXsKEGhAD41LLW7PCDnUo6LVRNdFKGkgwF7IGHePAVNMiHx U96nkENhJgHnNCMUESk+Mf6UDT3il9NyNVj1QuGhLQ7knf0LRUiYYwAbC8XetUwxFJIXCH9dqCMcZNC1 PX3aM0crolBNPDDbW9ewT13nNLCXYEO0ZEayHV1yVG WqPOB8OoTrHXXAGS0QLPLqMBPecNOnXLOjQNPaHxNcEGgmJHPcIgIxYQ33gSlgEF5TDZFxYJFvEC92CZ C4VWXpNe8VTJFzKHBmcyC1ANAbEHULDnFrO68qkYHjJsDxZVGEMJz+Bd3QZH5ga3NbLLk6OfFnHB4dbs 6PLBxAWuLcX8ZvnQlkCBHNGE8znFGjAXF7PUoaacQ1 UM0lPfPoXR2iCRJBJUS9OTyySE5kGTXvNWX3ZdO7FVZYHQ7TMNJaHRSbeVOiCNSjIZNeJqZoMYsxLVHh ZHX2BF81fOdqEU4DQJNyZZQoVA55WCA6JJXvDe1QMSEnHLRmjoV4VhFoTJTUNsMjO69ifQHjZbTtHLQB DQo+Fk4DLK9qb0PuYVr0HPMwSO7lhz8ESGdZTjBiN2 EyqDzwPRLFWBYgyJCwLQUWd8WbscOboHTCrFYqe5endbNVZXjtrRMvqwquw7hhRNKCGyGfsPD2OmGqOp IjKCGcBkl1AANMMCnTNmBcE9Kug4EoGcAePxVqUYKvP7jFXpPdUZH2KkRwqKckCY0YVyZyN0NrkgAtuI C3UvQgVHMUTdZgU1OsOSNbWgJuONGNIOn+Vg3QUE9g n8ElBTw9FQCcVH0cft1ZXIpLTeAoZ8D1gGLsH8G6TQpjFb2ACJLqMNChICZuODMVJTulWK5SPW8nnuS5 FT9CvZCzUPMeAGIckAMuOFc5C82bnFEvXGsrZV8AYKP+Ivett+Md5JYPKxUNKtRUJaVbWgCJWUMbIcZ3Sy L1KVn4VgG6YkKT77bXqylzWyJEptQT9NXK9eSJEgUI NQXS5WvJFcwM2mhoX4SlNrJRSNZlFfE71nrELgJUYuYEU8OBYrSr4LSKLfL9AjmhFvxDhoqkAjJCBxOP RDUS7BMOijqsHtdYRfbEizUZ77dRjkUH2KKb6OWsLaKJ1bgj9IcLPlNq1PORX0Io7SGQHpFLIgEPCwKN J3LJNnTjIzCOuoXYUtYKUeJYM3ERZnTNApAX0IKiFc DCNoMhwxQZSrLQJnDZZfrg6KHYWxBOQ2VBs4GmReMSTyMLIvEEpjRBVzWOArDEI6UNRbATJnNW2TMwGp ZXVaREJnBGSbJXVaMIYqtq2NKODzABZeCgK7MQQwMGWhAIIgYPotSJJbBVE3DwOhZAThLXXaDK9VNhOj SWHuZYe5OjBlAUKnNVGjyc4OUEZpRPSuKNU6WBIdBK AyUDAlJEiaAQEkWQXfRUX9WAMzTCShUJ9GDzAzTSRdKQS8OZftFSHlEUHazp2IHGNhSAYjKgb1GLWlLY ArBENyZGrxRQOeXPO8YrihCMFmVWYhGV7LRiFvMDBmPDc1LFjqOIJsJLDsyo3WSIWmOEPtXVMfHIUdHN HcUYWuRJggSYQyLHDpSrO6MSRpCNWsSF2IIhIrDCTb PtPeUMDzAGNnQQIugn8GBFCvHEMbFPOlUhXmRHXgMYAfJFwhPYImOWB7PRW2EOMnWGScGN3ZDjSlNMZf XhyfAVPpIHJbMIWhcb6YZIIhRLAnNLF8LpQyZGQuWTQbYKrcTOSsJSTeSyc3GBQlLUEuCP4WMbAiQJUn JmD0YnArICKlRSFhuq2WYNBqBVVaPtmlVjXoFHNdJM KtMYbpKECnJBD5Jsd8XMEqTNZhGG1GOfUgTIOyYjz3CTYyJBFoWWZmjr1AWHTcGVR6IBR7UyIySWCyJP LoKFbxQUUkSVPmXCe6MWNaUVNaID0FBaQwJEYnCEPbTsVxGVViXRIspl0OQAMeDAF5TFO7ZILwFSWjBV UxVTaqHCIgIHU3KSbpGWGsBCZhTG0TVhSwKWQfDBj1 ZUvqTXVxNRYmla5PTQJoFTT6DVsrHWZmNEAgUBZyRXgeTEAkRKLzGMYuHXSsTXCwKU1GTmUzVGHoMYI7 ATMcRTCjSNVsom3INZVbPEI3KOG7KGMpTLGoVVYfAQhyTCXwQDNjGaGdZFOyDJQzKH1RIrOjVOLoKGVw DrCxWQOgEQLnde8QTKMtLBP1InKvEzIfGFWlPVBtRZ hvXCLgHOFzTtSiLEFgGKLmFG6SAhEwKWWlSeYlDFMkPDOaMRYspo1AKCBeZAY0ARD0EINoDTWmANDkYF etJUFnDIV2Mdh7BKVnDOOnQJ1KXnGyMYPlWpV4MrAiNCDkYMDjil7IJXEoGBB9DZG2XRPuZALdXMUvPL juNVCxXXP7LMV7LDTgLIRyDO9EQhNtIWAvClOfUJOg UGUdUASgld3QIZKsFFQ3DwT3NLXeRYPhCCUjSHahIIBfEGL0UwI8BDTbDTBaTH6WNbQwTJNaCvf5DFDx UYDyBSYwps3EXNWvFFP8ZsJ2GdApMCXrJFLfCXxbETClCFP6UwC4SZYcRKMtNS1WWkYcOWBzBsz4VALh MLWoQOPaqq6QVVUhRVE0WNf8CYKwICZqFRCrUOopEC KmXCJ6IJE3NYRuGFZbTY3HDrKzNZAsLyT6EoWdCHIrTAWxeb6AFGMeZST4UYB9UhKiTMOdWTYbNFlvET QoAPxlDiG4QTWeRHHtAR1CKwWsGCPsCnDrRWhpSVXdXWSrhk1SMWAqGSO8ROU5YCPkDZJuJJNwSMzyWX CtUGihSxKzISZpOLRcGK6VXgYvDTNtDxX8UDjmRAWf XPAhaj5YBXItZNT6VtP7NDUiYAIwIQGvYRtsROYpLBwbOaZ4YWMgPDSqXW3SOjKxAYVfOqN2IlXcCKZs WQMbub8ZyTWboCkcxn7PUDnTZq6UgZvjRHV7KMliBx2pcXQ7VFSnMXNMWv9CjlElSPOzHGRLMTwpCXLx HRQ2FKF9GWF4NHstPLUgJwR2AqmhVUkcEZFiRFF7JT qcOnW3ZbXqBtmxRPnzLEZ6F3CvNOWzEFOxJ0LfL2S4QzU7K8M+YQ3yXMq+Bx7Ru6MhrbJ0muNbKCr3Aa X2Lj1OVUUAR9QXAo== ID Date Data Source [id number] 03/30/2020 08:54:00 AM EDT [facility] Name Value Range Interpretation Code Description Data Renee rce(s) Supporting Document(s) BG FASTING 84 mg/dL 70-100 [facility] CRP 0.30 mg/dL 0.00-0.30 [facility] ID Date Data Source [id number] 03/30/2020 08:54:00 AM EDT [facility] Name Value Range Interpretation Code Description Data Renee rce(s) Supporting Document(s) ESR 24 mm/hr 0-20 [facility] HCT 41.8 % 36.0-47.0 [facility] HGB 13.9 g/dL 12.0-15.5 [facility] MCH 33.3 G/DL pg 32.0-36.5 N [facility] MCHC 32.4 PG % 27.0-33.0 [facility] PLATELETS 171 10 10*3/mm3 150-450 [facility] RBC 4.29 10 10*6/mm3 4.00-5.40 [facility] RDW 13.0 % 11.5-14.5 [facility] WBC TOTAL 4.5 4.0-10.0 [facility] ID Date Data Source [id number] 03/29/2020 04:42:25 PM EDT [facility] Name Value Range Interpretation Code Description Data Renee rce(s) Supporting Document(s) Progress Note [facility] LWRRKd8eZqTQXlVm87/ZLCihUIMfg8VuJTlxTHg8DTaqDCVoJ9UxOHA4bA3fTQE6ZXtTKbEpFnBlRQGj lbm CtFdeRKeMhBRXoWtsCWjCxIGleZuaxpMQgWD3WxSX4AHSqK62aWNQsYLDmE3FeGWSpYgE+Tm8FQBGopX CfMA6HLllG7W1Ye9pGWT4MId8MQVSTHKpJZtOpaVsND0Cri1LfhtmYfyEQOPSftEGWkPha065tLT9mbz O2vIxYyXunsGzljCsrl+/pGShV/jewdC1TyaTnqq/H v4Pv5uGN/aL3uwiYma9lM/6eQ5BHyLD9AxUH8oUbk41uk475kwpYOPYlK4UpnSrYV80gRghCa9/eDR4m 6ey1+aLwKXLlgr56fSS+2WSL0rAq/JXjf8L3X+gOxhpsF3MTIY07Qw7x5DaKRqR3cnq5GxowHraItbin weJ48NEyBHRJGnV70jA2ZL/cCyCUp2U7NPDnFenlG9 LWOzvTfL2e2LTOTjYWGivyrcsnKQGO/nszzaux5w69RnhwaDpCj4q52VFft8bUHjgxFREDa9Tv993WQc B/8dIlkXhvLZ9qHIU7CLuWi1dY7wBcJzo4qV4KOdU5qS+J3Oq555yX91L5QrtNoKLbCFbZR1tm0RMQa8 EYt9SdseN7RVNQOgdidSs2NgiBI9zuTpVAbMOKi9Hw nc9iKpnQgauXU+lE7d/ym3kcr0xnMUWUceY4b1H2woyhJLmA/16Q7JIJ6apMMIQ7k9bbV63rb+Yb2ntW NX3f+FKKFUHYepQVvIUtuBDt5wog/CdFS5+hbU9hk7xfZ5rqcOi1rnyjB1uYTMUDJeTmyQJuuFan4FUs rs6r2XnhBpsTtaXg4s5MtZ2utmSHJqRN7w95hF3BvM B4fNkfhuCrtcjgORsr6sZxNmuJj/EjA3ZN7FtZjVybiuohRQi0F5qpEUBAD9AbCNW5Wy5BlWkwRcH7oo 1gtzU6iMSuI2IhB1RxJo6J91+e55m1U48oVL5I3eBhtx+q88y+8+TOCLnr3tO7wrBg2nusTx/+E99 [file] FZL9QLK5FiSkVU7KLc9QTeV5MGX2pYOmWz7JKHG5QsQYBpXhBA6ZZSm= Procedure Social History Code Duration Value Status Description Data Source(s ) Alcohol intake 03/22/2021 12:00:00 AM EDT Current non-d jasmyn of alcohol (finding) completed Current non-drinker of alcohol (finding) [facility] Alcohol intake 03/15/2021 12:00:00 AM EDT Current non-d jasmyn of alcohol (finding) completed Current non-drinker of alcohol (finding) [facility] Tobacco use and exposure 03/15/2021 12:00:00 AM EDT Never used co mpleted Never used [facility] Smoking 03/15/2021 12:00:00 AM EDT Never smoker completed Never s moker [facility] Alcohol intake 03/11/2021 12:00:00 AM EDT Lifetime non-drinker (finding) completed Lifetime non-drinker (finding) [facility] Tobacco use and exposure 03/11/2021 12:00:00 AM EDT Never used co mpleted Never used [facility] Smoking 03/11/2021 12:00:00 AM EDT Never smoker completed Never s [facility] 02/26/2021 10:40:58 AM EDT Never smoker completed Never [facility] Smoking 02/26/2021 10:40:00 AM EDT Never smoker completed Never [facility] 02/25/2021 10:45:00 PM EDT Never smoker completed Never [facility] Smoking 02/25/2021 10:45:00 PM EDT Never smoker completed Never [facility] Alcohol intake 02/25/2021 12:00:00 AM EDT Current non-d jasmyn of alcohol (finding) completed Current non-drinker of alcohol (finding) [facility] Alcohol intake 01/03/2021 12:00:00 AM EDT Current non-d jasmyn of alcohol (finding) completed Current non-drinker of alcohol (finding) [facility] Alcohol intake 10/23/2020 12:00:00 AM EDT Current non-d jasmyn of alcohol (finding) completed Current non-drinker of alcohol (finding) [facility] Alcohol intake 10/09/2020 12:00:00 AM EDT Current non-d jasmyn of alcohol (finding) completed Current non-drinker of alcohol (finding) [facility] Alcohol intake 10/03/2020 12:00:00 AM EDT Current non-d jasmyn of alcohol (finding) completed Current non-drinker of alcohol (finding) [facility] Alcohol intake 09/25/2020 12:00:00 AM EST Current non-d jasmyn of alcohol (finding) completed Current non-drinker of alcohol (finding) [facility] Alcohol intake 09/21/2020 12:00:00 AM EST Current non-d jasmyn of alcohol (finding) completed Current non-drinker of alcohol (finding) [facility] Alcohol intake 09/19/2020 12:00:00 AM EST Current non-d jasmyn of alcohol (finding) completed Current non-drinker of alcohol (finding) [facility] 09/18/2020 10:12:53 AM EST Never Smoker completed Never S moker [facility] 09/18/2020 10:12:53 AM EST Never Smoker completed Never S moker [facility] Smoking 09/18/2020 10:12:00 AM EST Never smoked tobacco (findi ng) completed Never smoked tobacco (finding) [facility] Smoking 09/18/2020 10:12:00 AM EST Never smoked tobacco (findi ng) completed Never smoked tobacco (finding) [facility] 08/24/2020 10:30:56 AM EST Never Smoker completed Never S moker [facility] 08/24/2020 10:30:56 AM EST Never Smoker completed Never S moker [facility] Smoking 08/24/2020 10:30:00 AM EST Never smoked tobacco (findi ng) completed Never smoked tobacco (finding) [facility] Smoking 08/24/2020 10:30:00 AM EST Never smoked tobacco (findi ng) completed Never smoked tobacco (finding) [facility] 07/27/2020 10:35:00 AM EST Never Smoker completed Never S moker [facility] Smoking 07/27/2020 10:35:00 AM EST Never smoked tobacco (findi ng) completed Never smoked tobacco (finding) [facility] 07/27/2020 10:35:00 AM EST Never Smoker completed Never S moker [facility] Smoking 07/27/2020 10:35:00 AM EST Never smoked tobacco (findi ng) completed Never smoked tobacco (finding) [facility] 07/18/2020 03:04:06 PM EST Never Smoker completed Never S moker [facility] 07/18/2020 03:04:06 PM EST Never Smoker completed Never S moker [facility] Smoking 07/18/2020 03:04:00 PM EST Never smoked tobacco (findi ng) completed Never smoked tobacco (finding) [facility] Smoking 07/18/2020 03:04:00 PM EST Never smoked tobacco (findi ng) completed Never smoked tobacco (finding) [facility] 06/18/2020 12:00:00 AM EST Current non-d jasmyn of alcohol (finding) completed Current non-drinker of alcohol (finding) [facility] 06/12/2020 09:57:06 AM EST Never Smoker completed Never S moker [facility] 06/12/2020 09:57:06 AM EST Never Smoker completed Never S moker [facility] 06/12/2020 09:57:06 AM EST Never Smoker completed Never S moker [facility] 06/12/2020 09:57:06 AM EST Never Smoker completed Never S moker [facility] Smoking 06/12/2020 09:57:00 AM EST Never smoked tobacco (findi ng) completed Never smoked tobacco (finding) [facility] Smoking 06/12/2020 09:57:00 AM EST Never smoked tobacco (findi ng) completed Never smoked tobacco (finding) [facility] Smoking 06/12/2020 09:57:00 AM EST Never smoked tobacco (findi ng) completed Never smoked tobacco (finding) [facility] Smoking 06/12/2020 09:57:00 AM EST Never smoked tobacco (findi ng) completed Never smoked tobacco (finding) [facility] 05/15/2020 10:43:00 AM EDT Never Smoker completed Never S moker [facility] Smoking 05/15/2020 10:43:00 AM EDT Never smoked tobacco (findi ng) completed Never smoked tobacco (finding) [facility] Alcohol intake 05/02/2020 12:00:00 AM EDT Current non-d jasmyn of alcohol (finding) completed Current non-drinker of alcohol (finding) [facility] 04/24/2020 08:16:48 AM EDT Never Smoker completed Never S moker [facility] Smoking 04/24/2020 08:16:00 AM EDT Never smoked tobacco (findi ng) completed Never smoked tobacco (finding) [facility] 04/13/2020 12:46:00 PM EDT Never Smoker completed Never S moker [facility] 04/13/2020 12:46:00 PM EDT No completed No [facility] 04/13/2020 12:46:00 PM EDT No completed No [facility] 04/13/2020 12:46:00 PM EDT Never Smoker completed Never S moker [facility] 04/13/2020 12:46:00 PM EDT No completed No [facility] 04/13/2020 12:46:00 PM EDT No completed No [facility] 04/13/2020 12:46:00 PM EDT Never Smoker completed Never S moker [facility] 04/13/2020 12:46:00 PM EDT No completed No [facility] 04/13/2020 12:46:00 PM EDT No completed No [facility] 04/13/2020 12:46:00 PM EDT Never Smoker completed Never S moker [facility] 04/13/2020 12:46:00 PM EDT No completed No [facility] 04/13/2020 12:46:00 PM EDT No completed No [facility] 04/13/2020 12:46:00 PM EDT Never Smoker completed Never S moker [facility] 04/13/2020 12:46:00 PM EDT No completed No [facility] 04/13/2020 12:46:00 PM EDT No completed No [facility] 04/13/2020 12:46:00 PM EDT Never Smoker completed Never S moker [facility] 04/13/2020 12:46:00 PM EDT No completed No [facility] 04/13/2020 12:46:00 PM EDT No completed No [facility] 04/13/2020 12:46:00 PM EDT Never Smoker completed Never S moker [facility] 04/13/2020 12:46:00 PM EDT No completed No [facility] 04/13/2020 12:46:00 PM EDT No completed No [facility] 04/13/2020 12:46:00 PM EDT Never Smoker completed Never S moker [facility] 04/13/2020 12:46:00 PM EDT No completed No [facility] 04/13/2020 12:46:00 PM EDT No completed No [facility] 04/13/2020 12:46:00 PM EDT Never Smoker completed Never S moker [facility] 04/13/2020 12:46:00 PM EDT No completed No [facility] 04/13/2020 12:46:00 PM EDT No completed No [facility] 04/13/2020 12:46:00 PM EDT Never Smoker completed Never S moker [facility] 04/13/2020 12:46:00 PM EDT No completed No [facility] 04/13/2020 12:46:00 PM EDT No completed No [facility] 04/13/2020 12:46:00 PM EDT Never Smoker completed Never S moker [facility] 04/13/2020 12:46:00 PM EDT No completed No [facility] 04/13/2020 12:46:00 PM EDT No completed No [facility] 04/13/2020 12:46:00 PM EDT Never Smoker completed Never S moker [facility] 04/13/2020 12:46:00 PM EDT No completed No [facility] 04/13/2020 12:46:00 PM EDT No completed No [facility] 04/13/2020 12:46:00 PM EDT Never Smoker completed Never S moker [facility] 04/13/2020 12:46:00 PM EDT No completed No [facility] 04/13/2020 12:46:00 PM EDT No completed No [facility] 04/13/2020 12:46:00 PM EDT Never Smoker completed Never S moker [facility] 04/13/2020 12:46:00 PM EDT No completed No [facility] 04/13/2020 12:46:00 PM EDT No completed No [facility] Vital Signs ID Date Data Source UNK Name Value Range Interpretation Code Description Data Source(s) Body surface area Derived from formula 2.36 m2 2.36 m2 [facility] ([facility]) Body weight 123.946 kg 123.946 kg [facility] ([facility]) Magness body weight 145 [lb_av] 145 [lb_av] [facility] ([facility]) Body mass index (BMI) [Ratio] 40.3 kg/m2 40.3 k g/m2 [facility] ([facility]) Body weight 273.25 [lb_av] 273.25 [lb_av] [facility] ([facility]) Body height 69 [in_i] 69 [in_i] [facility] ([facility]) 5'9" Body temperature 98.2 [degF] 98.2 [degF] [facility] ([facility], ) Body mass index (BMI) [Ratio] 37.4 kg/m2 37.4 k g/m2 [facility] ([facility]) Body weight 268.12 [lb_av] 268.12 [lb_av] [facility] ([facility]) Body height 71 [in_i] 71 [in_i] [facility] ([facility]) 5'11" Body temperature 96.7 [degF] 96.7 [degF] [facility] ([facility]) Body surface area Derived from formula 2.34 m2 2.34 m2 [facility] ([facility]) Body weight 122.018 kg 122.018 kg [facility] ([facility]) Magness body weight 145 [lb_av] 145 [lb_av] [facility] ([facility]) Body mass index (BMI) [Ratio] 39.7 kg/m2 39.7 k g/m[facility] Body weight 269.00 [lb_av] 269.00 [lb_av] [facility] ([facility]) Body height 69 [in_i] 69 [in_i] [facility] ([facility]) 5'9" Body temperature 98.3 [degF] 98.3 [degF] [facility] ([facility]) Heart rate 71 /min 71 /min [facility] ([facility]) Diastolic blood pressure 73 mm[Hg] 73 mm[Hg] [facility] ([facility]) Systolic blood pressure 108 mm[Hg] 108 mm[Hg] M [facility] ([facility]) Diastolic blood pressure 63 mm[Hg] 63 mm[Hg] [facility] ([facility]) Body weight 4320 [oz_av] 4320 [oz_av] [facility] ([facility]) Systolic blood pressure 96 mm[Hg] 96 mm[Hg] A [facility] ([facility]) Systolic blood pressure 98 mm[Hg] 98 mm[Hg] [facility] ([facility]) Body mass index (BMI) [Ratio] 38.7 kg/m2 38.7 k g/m2 [facility] ([facility]) Body height 70 [in_i] 70 [in_i] [facility] ([facility]) Diastolic blood pressure 68 mm[Hg] 68 mm[Hg] [facility] ([facility]) Heart rate 71 /min 71 /min [facility] Diastolic blood pressure 75 mm[Hg] 75 mm[Hg] [facility] Systolic blood pressure 116 mm[Hg] 116 mm[Hg] [facility] Oxygen saturation in Arterial blood by Pulse oximetry 98 % 98 % [facility] Respiratory rate 12 /min 12 /min [facility] Body temperature 36.72 Karina 36.72 Karina [facility] Body mass index (BMI) [Ratio] 37.30 kg/m2 37.30 kg/m2 [facility] Body weight 114.579 kg 114.579 kg [facility] Body height 175.3 cm 175.3 cm [facility] Body weight 4256 [oz_av] 4256 [oz_av] [facility] ([facility]) Systolic blood pressure 106 mm[Hg] 106 mm[Hg] [facility] ([facility]) Body mass index (BMI) [Ratio] 38.2 kg/m2 38.2 k g/m2 [facility] ([facility]) Body height 70 [in_i] 70 [in_i] [facility] ([facility]) Diastolic blood pressure 74 mm[Hg] 74 mm[Hg] [facility] ([facility]) Body weight 4256 [oz_av] 4256 [oz_av] [facility] ([facility]) Systolic blood pressure 106 mm[Hg] 106 mm[Hg] [facility] ([facility]) Body mass index (BMI) [Ratio] 38.2 kg/m2 38.2 k g/m2 [facility] ([facility]) Body height 70 [in_i] 70 [in_i] [facility] ([facility]) Diastolic blood pressure 74 mm[Hg] 74 mm[Hg] [facility] ([facility]) Body height 70 [in_i] 70 [in_i] [facility] ([facility]) Body height 70 [in_i] 70 [in_i] [facility] ([facility]) Body height 70 [in_i] 70 [in_i] [facility] ([facility]) Body weight 4260 [oz_av] 4260 [oz_av] [facility] ([facility]) Systolic blood pressure 106 mm[Hg] 106 mm[Hg] [facility] ([facility]) Body mass index (BMI) [Ratio] 38.2 kg/m2 38.2 k g/m2 [facility] ([facility]) Body height 70 [in_i] 70 [in_i] [facility] ([facility]) Diastolic blood pressure 70 mm[Hg] 70 mm[Hg] [facility] ([facility]) Body weight 4260 [oz_av] 4260 [oz_av] [facility] ([facility]) Systolic blood pressure 106 mm[Hg] 106 mm[Hg] [facility] ([facility]) Body mass index (BMI) [Ratio] 38.2 kg/m2 38.2 k g/m2 [facility] ([facility]) Body height 70 [in_i] 70 [in_i] [facility] ([facility]) Diastolic blood pressure 70 mm[Hg] 70 mm[Hg] [facility] ([facility]) Body weight 4260 [oz_av] 4260 [oz_av] [facility] ([facility]) Systolic blood pressure 106 mm[Hg] 106 mm[Hg] A [facility] ([facility]) Body mass index (BMI) [Ratio] 38.2 kg/m2 38.2 k g/m2 [facility] ([facility]) Body height 70 [in_i] 70 [in_i] [facility] ([facility]) Diastolic blood pressure 70 mm[Hg] 70 mm[Hg] [facility] ([facility]) Body weight 4260 [oz_av] 4260 [oz_av] [facility] ([facility]) Systolic blood pressure 106 mm[Hg] 106 mm[Hg] A THEN ([facility]) Body mass index (BMI) [Ratio] 38.2 kg/m2 38.2 k g/m2 [facility] ([facility]) Body height 70 [in_i] 70 [in_i] [facility] ([facility]) Diastolic blood pressure 70 mm[Hg] 70 mm[Hg] [facility] ([facility]) Body height 70 [in_i] 70 [in_i] [facility] ([facility]) Body height 70 [in_i] 70 [in_i] [facility] ([facility]) Body height 70 [in_i] 70 [in_i] [facility] ([facility]) Body height 70 [in_i] 70 [in_i] [facility] ([facility]) Body height 70 [in_i] 70 [in_i] [facility] ([facility]) Body height 70 [in_i] 70 [in_i] [facility] ([facility]) Body height 70 [in_i] 70 [in_i] [facility] ([facility]) Body height 70 [in_i] 70 [in_i] [facility] ([facility]) Body height 70 [in_i] 70 [in_i] [facility] ([facility]) Body height 70 [in_i] 70 [in_i] [facility] ([facility]) Body height 70 [in_i] 70 [in_i] [facility] ([facility]) Body height 70 [in_i] 70 [in_i] [facility] ([facility]) Body height 70 [in_i] 70 [in_i] [facility] ([facility]) Body mass index (BMI) [Ratio] 37.5 kg/m2 37.5 k g/m2 [facility] Body weight 115.21 kg 115.21 kg [facility] Body height 175.26 cm 175.26 cm [facility] Body mass index (BMI) [Ratio] 37.5 kg/m2 37.5 k g/m2 [facility] Body weight 115.21 kg 115.21 kg [facility] Body height 175.26 cm 175.26 cm [facility] Body weight 4080 [oz_av] 4080 [oz_av] [facility] ([facility]) Systolic blood pressure 111 mm[Hg] 111 mm[Hg] [facility] ([facility]) Body mass index (BMI) [Ratio] 36.6 kg/m2 36.6 k g/m2 [facility] ([facility]) Body height 70 [in_i] 70 [in_i] [facility] ([facility]) Diastolic blood pressure 73 mm[Hg] 73 mm[Hg] [facility] ([facility]) Body weight 4080 [oz_av] 4080 [oz_av] [facility] ([facility]) Systolic blood pressure 111 mm[Hg] 111 mm[Hg] [facility] ([facility]) Body mass index (BMI) [Ratio] 36.6 kg/m2 36.6 k g/m2 [facility] ([facility]) Body height 70 [in_i] 70 [in_i] [facility] ([facility]) Diastolic blood pressure 73 mm[Hg] 73 mm[Hg] [facility] ([facility]) Body weight 4080 [oz_av] 4080 [oz_av] [facility] ([facility]) Systolic blood pressure 111 mm[Hg] 111 mm[Hg] A [facility] ([facility]) Body mass index (BMI) [Ratio] 36.6 kg/m2 36.6 k g/m2 [facility] ([facility]) Body height 70 [in_i] 70 [in_i] [facility] ([facility]) Diastolic blood pressure 73 mm[Hg] 73 mm[Hg] [facility] ([facility]) Body weight 4080 [oz_av] 4080 [oz_av] [facility] ([facility]) Systolic blood pressure 111 mm[Hg] 111 mm[Hg] [facility] ([facility]) Body mass index (BMI) [Ratio] 36.6 kg/m2 36.6 k g/m2 [facility] ([facility]) Body height 70 [in_i] 70 [in_i] [facility] ([facility]) Diastolic blood pressure 73 mm[Hg] 73 mm[Hg] [facility] ([facility]) Body weight 4080 [oz_av] 4080 [oz_av] [facility] ([facility]) Systolic blood pressure 111 mm[Hg] 111 mm[Hg] [facility] ([facility]) Body mass index (BMI) [Ratio] 36.6 kg/m2 36.6 k g/m2 [facility] ([facility]) Body height 70 [in_i] 70 [in_i] [facility] ([facility]) Diastolic blood pressure 73 mm[Hg] 73 mm[Hg] [facility] ([facility]) Body weight 4080 [oz_av] 4080 [oz_av] [facility] ([facility]) Systolic blood pressure 111 mm[Hg] 111 mm[Hg] A [facility] ([facility]) Body mass index (BMI) [Ratio] 36.6 kg/m2 36.6 k g/m2 [facility] ([facility]) Body height 70 [in_i] 70 [in_i] [facility] ([facility]) Diastolic blood pressure 73 mm[Hg] 73 mm[Hg] [facility] ([facility]) Body weight 4080 [oz_av] 4080 [oz_av] [facility] ([facility]) Systolic blood pressure 111 mm[Hg] 111 mm[Hg] [facility] ([facility]) Body mass index (BMI) [Ratio] 36.6 kg/m2 36.6 k g/m2 [facility] ([facility]) Body height 70 [in_i] 70 [in_i] [facility] ([facility]) Diastolic blood pressure 73 mm[Hg] 73 mm[Hg] [facility] ([facility]) Body weight 4080 [oz_av] 4080 [oz_av] [facility] ([facility]) Systolic blood pressure 111 mm[Hg] 111 mm[Hg] [facility] ([facility]) Body mass index (BMI) [Ratio] 36.6 kg/m2 36.6 k g/m2 [facility] ([facility]) Body height 70 [in_i] 70 [in_i] [facility] ([facility]) Diastolic blood pressure 73 mm[Hg] 73 mm[Hg] [facility] ([facility]) Body height 70 [in_i] 70 [in_i] [facility] ([facility]) Body height 70 [in_i] 70 [in_i] [facility] ([facility]) Body height 70 [in_i] 70 [in_i] [facility] ([facility]) Body height 70 [in_i] 70 [in_i] [facility] ([facility]) Body height 70 [in_i] 70 [in_i] [facility] ([facility]) Body height 70 [in_i] 70 [in_i] [facility] ([facility]) Body height 70 [in_i] 70 [in_i] [facility]RA ([facility]) Body height 70 [in_i] 70 [in_i] [facility]RA ([facility]) Body height 70 [in_i] 70 [in_i] AZRA ([facility]) Body mass index (BMI) [Ratio] 37.6 kg/m2 37.6 k g/m2 [facility] Body weight 115.66 kg 115.66 kg [facility] Body height 175.26 cm 175.26 cm [facility] Body mass index (BMI) [Ratio] 37.6 kg/m2 37.6 k g/m2 [facility] Body weight 115.66 kg 115.66 kg [facility] Body height 175.26 cm 175.26 cm [facility] Body mass index (BMI) [Ratio] 37.6 kg/m2 37.6 k g/m2 [facility] Body weight 115.66 kg 115.66 kg [facility] Body weight 115.66 kg 115.66 kg [facility] Body height 175.26 cm 175.26 cm [facility] Body height 175.26 cm 175.26 cm [facility] Body mass index (BMI) [Ratio] 37.6 kg/m2 37.6 k g/m2 [facility] Body mass index (BMI) [Ratio] 37.6 kg/m2 37.6 k g/m2 [facility] Body weight 115.66 kg 115.66 kg [facility] Body height 175.26 cm 175.26 [facility] Body mass index (BMI) [Ratio] 37.6 kg/m2 37.6 k g/m2 [facility] Body weight 115.66 kg 115.66 kg [facility] Body height 175.26 cm 175.26 cm [facility] Body mass index (BMI) [Ratio] 37.6 kg/m2 37.6 k g/m2 [facility] Body weight 115.66 kg 115.66 kg [facility] Body height 175.26 cm 175.26 cm [facility] Body mass index (BMI) [Ratio] 37.6 kg/m2 37.6 k g/m2 [facility] Body weight 115.66 kg 115.66 kg [facility] Body height 175.26 cm 175.26 cm [facility] Body mass index (BMI) [Ratio] 37.6 kg/m2 37.6 k g/m2 [facility] Body weight 115.66 kg 115.66 kg [facility] Body height 175.26 cm 175.26 cm [facility] Body mass index (BMI) [Ratio] 37.6 kg/m2 37.6 k g/m2 [facility] Body weight 115.66 kg 115.66 kg [facility] Body height 175.26 cm 175.26 cm [facility] Body mass index (BMI) [Ratio] 37.6 kg/m2 37.6 k g/m2 [facility] Body weight 115.66 kg 115.66 kg [facility] Body height 175.26 cm 175.26 cm [facility] Body mass index (BMI) [Ratio] 37.6 kg/m2 37.6 k g/m2 [facility] Body weight 115.66 kg 115.66 kg [facility] Body height 175.26 cm 175.26 cm [facility] Body mass index (BMI) [Ratio] 38.4 kg/m2 38.4 k g/m2 [facility] Body weight 117.93 kg 117.93 kg [facility] Body height 175.26 cm 175.26 cm [facility] Body mass index (BMI) [Ratio] 38.4 kg/m2 38.4 k g/m2 [facility] Body weight 117.93 kg 117.93 kg [facility] Body height 175.26 cm 175.26 cm [facility] Body mass index (BMI) [Ratio] 38.4 kg/m2 38.4 k g/m2 [facility] Body weight 117.93 kg 117.93 kg [facility] Body height 175.26 cm 175.26 cm [facility] Body mass index (BMI) [Ratio] 38.4 kg/m2 38.4 k g/m2 [facility] Body weight 117.93 kg 117.93 kg [facility] Body height 175.26 cm 175.26 cm [facility] Body weight 4086 [oz_av] 4086 [oz_av] [facility] ([facility]) Systolic blood pressure 111 mm[Hg] 111 mm[Hg] [facility] ([facility]) Body mass index (BMI) [Ratio] 36.6 kg/m2 36.6 k g/m2 [facility] ([facility]) Body height 70 [in_i] 70 [in_i] [facility] ([facility]) Diastolic blood pressure 76 mm[Hg] 76 mm[Hg] [facility] ([facility]) Body weight 4086 [oz_av] 4086 [oz_av] [facility] ([facility]) Systolic blood pressure 111 mm[Hg] 111 mm[Hg] [facility] ([facility]) Body mass index (BMI) [Ratio] 36.6 kg/m2 36.6 k g/m2 [facility] ([facility]) Body height 70 [in_i] 70 [in_i] [facility] ([facility]) Diastolic blood pressure 76 mm[Hg] 76 mm[Hg] [facility] ([facility]) Body weight 4086 [oz_av] 4086 [oz_av] [facility] ([facility]) Systolic blood pressure 111 mm[Hg] 111 mm[Hg] [facility] ([facility]) Body mass index (BMI) [Ratio] 36.6 kg/m2 36.6 k g/m2 [facility] ([facility]) Body height 70 [in_i] 70 [in_i] [facility] ([facility]) Diastolic blood pressure 76 mm[Hg] 76 mm[Hg] [facility] ([facility]) Diastolic blood pressure 76 mm[Hg] 76 mm[Hg] [facility] ([facility]) Body weight 4086 [oz_av] 4086 [oz_av] [facility] ([facility]) Systolic blood pressure 111 mm[Hg] 111 mm[Hg] [facility] ([facility]) Body mass index (BMI) [Ratio] 36.6 kg/m2 36.6 k g/m2 [facility] ([facility]) Body height 70 [in_i] 70 [in_i] [facility] ([facility]) Body weight 4086 [oz_av] 4086 [oz_av] [facility] ([facility]) Systolic blood pressure 111 mm[Hg] 111 mm[Hg] [facility] ([facility]) Body mass index (BMI) [Ratio] 36.6 kg/m2 36.6 k g/m2 [facility] ([facility]) Body height 70 [in_i] 70 [in_i] [facility] ([facility]) Diastolic blood pressure 76 mm[Hg] 76 mm[Hg] [facility] ([facility]) Body weight 4086 [oz_av] 4086 [oz_av] [facility] ([facility]) Systolic blood pressure 111 mm[Hg] 111 mm[Hg] [facility] ([facility]) Body mass index (BMI) [Ratio] 36.6 kg/m2 36.6 k g/m2 [facility] ([facility]) Body height 70 [in_i] 70 [in_i] [facility] ([facility]) Diastolic blood pressure 76 mm[Hg] 76 mm[Hg] [facility] ([facility]) Body weight 4086 [oz_av] 4086 [oz_av] [facility] ([facility]) Systolic blood pressure 111 mm[Hg] 111 mm[Hg] [facility] ([facility]) Body mass index (BMI) [Ratio] 36.6 kg/m2 36.6 k g/m2 [facility] ([facility]) Body height 70 [in_i] 70 [in_i] [facility] ([facility]) Diastolic blood pressure 76 mm[Hg] 76 mm[Hg] [facility] ([facility]) Body weight 4086 [oz_av] 4086 [oz_av] [facility] ([facility]) Systolic blood pressure 111 mm[Hg] 111 mm[Hg] [facility] ([facility]) Body mass index (BMI) [Ratio] 36.6 kg/m2 36.6 k g/m2 [facility] ([facility]) Body height 70 [in_i] 70 [in_i] [facility] ([facility]) Diastolic blood pressure 76 mm[Hg] 76 mm[Hg] [facility] ([facility]) Body weight 4086 [oz_av] 4086 [oz_av] [facility] ([facility]) Systolic blood pressure 111 mm[Hg] 111 mm[Hg] A [facility] ([facility]) Body mass index (BMI) [Ratio] 36.6 kg/m2 36.6 k g/m2 [facility] ([facility]) Body height 70 [in_i] 70 [in_i] [facility] ([facility]) Diastolic blood pressure 76 mm[Hg] 76 mm[Hg] [facility] ([facility]) Body weight 4086 [oz_av] 4086 [oz_av] [facility] ([facility]) Systolic blood pressure 111 mm[Hg] 111 mm[Hg] [facility] ([facility]) Body mass index (BMI) [Ratio] 36.6 kg/m2 36.6 k g/m2 [facility] ([facility]) Body height 70 [in_i] 70 [in_i] [facility] ([facility]) Diastolic blood pressure 76 mm[Hg] 76 mm[Hg] [facility] ([facility]) Diastolic blood pressure 63 mm[Hg] 63 mm[Hg] [facility] Systolic blood pressure 104 mm[Hg] 104 mm[Hg] O [employer] Oxygen saturation in Arterial blood by Pulse oximetry 96 % 96 % [facility] Respiratory rate 16 /min 16 /min [facility] Heart rate 62 /min 62 /min [facility] Diastolic blood pressure 63 mm[Hg] 63 mm[Hg] [facility] Systolic blood pressure 104 mm[Hg] 104 mm[Hg] O [employer] Oxygen saturation in Arterial blood by Pulse oximetry 96 % 96 % [facility] Respiratory rate 16 /min 16 /min [facility] Heart rate 62 /min 62 /min [facility] Diastolic blood pressure 63 mm[Hg] 63 mm[Hg] [facility] Syst[facility] blood pressure 104 mm[Hg] 104 mm[Hg] O [employer] Oxygen saturation in Arterial blood by Pulse oximetry 96 % 96 % [facility] Respiratory rate 16 /min 16 /min [facility] Heart [facility] 62 /min 62 /min [facility] Diastolic blood pressure 63 mm[Hg] 63 mm[Hg] [facility] Systolic blood pressure 104 mm[Hg] 104 mm[Hg] [facility] Oxygen saturation in Arterial blood by Pulse oximetry 96 % 96 % [facility] Respiratory rate 16 /min 16 /min [facility] Heart rate 62 /min 62 /min [facility] Body temperature 97.3 [degF] 97.3 [degF] [facility] Body temperature 97.3 [degF] 97.3 [degF] [facility] Body temperature 97.3 [degF] 97.3 [degF] [facility] Body temperature 97.3 [degF] 97.3 [degF] [facility] Diastolic blood pressure 63 mm[Hg] 63 mm[Hg] [facility] Systolic blood pressure 104 mm[Hg] 104 mm[Hg] [facility] Oxygen saturation in Arterial blood by Pulse oximetry 96 % 96 % [facility] Respiratory rate 16 /min 16 /min [facility] Heart rate 62 /min 62 /min [facility] Body temperature 97.3 [degF] 97.3 [degF] [facility] Body weight 117.00 kg 117.00 kg [facility] Body height 175.26 cm 175.26 cm [facility] Body weight 117.00 kg 117.00 kg [facility] Body height 175.26 cm 175.26 cm [facility] Body weight 117.00 kg 117.00 kg [facility] Body height 175.26 cm 175.26 cm [facility] Body weight 117.00 kg 117.00 kg [facility] Body height 175.26 cm 175.26 cm [facility] Body weight 117.00 kg 117.00 kg [facility] Body height 175.26 cm 175.26 cm [facility] Body mass index (BMI) [Ratio] 38.1 kg/m2 38.1 k g/m2 [facility] Diastolic blood pressure 80 mm[Hg] 80 mm[Hg] [facility] Systolic blood pressure 110 mm[Hg] 110 mm[Hg] [facility] Oxygen saturation in Arterial blood by Pulse oximetry 98 % 98 % [facility] Respiratory rate 14 /min 14 /min [facility] rate 65 /min 65 /min [facility] Body temperature 97.8 [degF] 97.8 [degF] [facility] Body weight 117.19 kg 117.19 kg [facility] Body height 175.26 cm 175.26 cm [facility] Body mass index (BMI) [Ratio] 38.1 kg/m2 38.1 k g/m2 [facility] Diastolic blood pressure 80 mm[Hg] 80 mm[Hg] [facility] Systolic blood pressure 110 mm[Hg] 110 mm[Hg] O [facility] Oxygen saturation in Arterial blood by Pulse oximetry 98 % 98 % [facility] Respiratory rate 14 /min 14 /min [facility] rate 65 /min 65 /min [facility] Body temperature 97.8 [degF] 97.8 [degF] [facility] Body weight 117.19 kg 117.19 kg [facility] Body height 175.26 cm 175.26 cm [facility] ID Date Data Source [id number] 03/15/2021 03:28:00 PM EDT [facility] Name Value Range Interpretation Code Description Data Source(s) TRANSFER FROM [facility] ID Date Data Source [id number] [facility] Value Range Interpretation Code Description Data Source(s) PEDIATRIC GESTATION AGE (WEEKS) 40 40 [facility] WEIGHT 4.139 kg 4.139 kg [facility] PEDIATRIC GESTATION AGE (WEEKS) 40 40 [facility] WEIGHT 4.139 kg 4.139 kg [facility] ID Date Data Source [id number] 12/12/2020 09:08:34 AM EDT [facility] Name Value Range Interpretation Code Description Data Source(s) PEDIATRIC GESTATION AGE (WEEKS) 40 40 [facility] WEIGHT 4.139 kg 4.139 kg [facility] ID Date Data Source [id number] 11/26/2020 06:21:05 PM EDT [facility] Name Value Range Interpretation Code Description Data Source(s) PEDIATRIC GESTATION AGE (WEEKS) 40 40 [facility] WEIGHT 4.139 kg 4.139 kg [facility] PEDIATRIC GESTATION AGE (WEEKS) 40 40 [facility] WEIGHT 4.139 kg 4.139 kg [facility] ID Date Data Source [id number] 10/23/2020 09:12:[address] [facility] Name Value Range Interpretation Code Description Data Source(s) WEIGHT RECORDED 264 lb 264 lb [facility] Body height Measured 69.02 in 69.02 in [facility] ID Date Data Source [id number] 10/22/2020 [facility]15[facility] Name Value Range Interpretation Code Description Data Source(s) WEIGHT RECORDED 264 lb 264 lb [facility] ID Date Data Source [id number] 09/27/2020 07:23:11 AM [facility] Value Range Interpretation Code Description Data Source(s) WEIGHT RECORDED 253 lb 253 lb [facility] Body height Measured 69.02 in 69.02 in [facility] ID Date Data Source [id number] 10/03/2020 [facility]:12[facility] Name Value Range Interpretation Code Description Data Source(s) WEIGHT RECORDED 261.6 lb 261.6 lb [facility] Body height Measured 69 in 69 in [facility] ID Date Data Source [id number] 09/26/2020 06:14:58 PM [facility] Value Range Interpretation Code Description Data Source(s) WEIGHT RECORDED 252 lb 252 lb [facility] Body height Measured 69 in 69 in [facility] ID Date Data Source [id number] 06/20/2020 10:22:29 AM [facility] Name Value Range Interpretation Code Description Data Source(s) WEIGHT RECORDED 253.2 lb 253.2 lb [facility] ID Date Data Source [id number] 04/01/2020 03:54:[address] [facility] Name Value Range Interpretation Code Description Data Source(s) WEIGHT RECORDED 255.51 lb 255.51 lb [facility] Body height Measured 70.35 in 70.35 in [facility] ID Date Data Source [id number] 03/29/2020 04:42:[address] [facility] Name Value Range Interpretation Code Description Data Source(s) WEIGHT RECORDED 255.6 lb 255.6 lb [facility] Body height Measured 70.35 in 70.35 in [facility] ID Date Data Source [id number] 04/25/2020 05:25:[address] [facility] Name Value Range Interpretation Code Description Data Source(s) WEIGHT RECORDED 250 lb 250 lb [facility] WEIGHT RECORDED 250 lb 250 lb [facility] Patient Treatment Plan of Care Planned Activity Planned Date Details Description Data Source (s) sodium chloride 0.9% (NS) [facility] Oral Tablet 02/28/2021 10:19:18 AM [facility] Lidocaine 5 % External Patch (LIDODERM) 02/28/2021 12:00:00 AM [facility] POLYETHYLENE GLYCOL 3350 142 MG/ML Oral Solution 02/28/2021 12:00:0 0 AM [facility] sennosides, LONG TERM 35.2 MG/ML Oral Solution 02/28/2021 12:00:00 AM [facility] sodium chloride (preservative free) 0.9 % flush 10 mL 02/27/2021 11:51:49 AM [facility] ospital perflutren lipid microspheres (DEFINITY) injectable centeno spension 9.78 mg 02/27/2021 11:23:[address] [facility] Calcium Carbonate 500 MG Chewable Tablet 02/27/2021 06:42:50 AM [facility] Bisacodyl 10 MG Rectal Suppository 02/27/2021 04:12:57 AM [facility] Amitriptyline Hydrochloride 10 MG Oral Tablet 12/19/2020 12:00:00 A M [facility] Sulfamethoxazole 800 MG / Trimethoprim 160 MG Oral Tab let 10/09/2020 09:45:00 AM [facility] ospital Cyclobenzaprine hydrochloride 10 MG Oral Tablet 09/25/2020 12:00:00 AM [facility] Amoxicillin 875 MG / Clavulanate 125 MG Oral Tablet 09/22/19 12:00:00 AM [facility] Amitriptyline Hydrochloride 10 MG Oral Tablet 09/21/2020 12:00:00 A M [facility] Ondansetron 4 MG Oral Tablet 09/06/2020 12:00:00 AM [facility] Furosemide 20 MG Oral Tablet 08/13/2020 12:00:00 AM [facility] Albuterol Sulfate HFA 108 (90 Base) MCG/ ACT Inhalation Aerosol Solution (PROVENTIL HFA) 05/31/2020 12:00:00 AM [facility] doxycycline hyclate 100 MG Oral Capsule 05/09/2020 12:00:00 AM [facility] Mexiletine Hydrochloride 150 MG Oral Capsule 05/04/2020 12:00:00 AM [facility] Loperamide Hydrochloride 2 MG Oral Capsule 05/03/2020 12:00:00 AM [facility] Loperamide Hydrochloride 2 MG Oral Tablet 05/02/2020 12:00:[address] [facility] pantoprazole 40 MG Delayed Release Oral Tablet 05/02/2020 12:00:00 AM [facility] Dicyclomine Hydrochloride 10 MG Oral Capsule 05/02/2020 12:00:00 AM [facility] pantoprazole 40 MG Delayed Release Oral Tablet 04/04/2020 12:00:00 AM [facility] Sucralfate 100 MG/ML Oral Suspension 03/23/2020 08:15:00 PM [facility] Furosemide 20 MG Oral Tablet 02/24/2020 12:00:00 AM [facility] Potassium Chloride 10 MEQ Extended Release Oral Tablet 02/24/2020 12:00:00 AM [facility]ital Amitriptyline Hydrochloride 25 MG Oral Tablet [facility] ([facility]) Amoxicillin 500 MG Oral Capsule [facility] ([facility]) Ciprofloxacin 500 MG Oral Tablet [facility] ([facility]) Dicyclomine Hydrochloride 10 MG Oral Capsule [facility] ([facility]) doxycycline hyclate 100 MG Oral Capsule [facility] ([facility]) Furosemide 40 MG Oral Tablet [facility] ([facility]) Levothyroxine Sodium 0.05 MG Oral Tablet [facility] ([facility]) Loperamide Hydrochloride 2 MG Oral Capsule [facility] ([facility]) NITROFURANTOIN, MACROCRYSTALS 25 MG / Ni trofurantoin, Monohydrate 75 MG Oral Capsule [facility] ([facility]) Omeprazole 20 MG Delayed Release Oral Capsule [facility] ([facility]) Ondansetron 4 MG Disintegrating Oral Tablet [facility] ([facility]) pantoprazole 40 MG Delayed Release Oral Tablet [facility] ([facility]) Phenazopyridine hydrochloride 200 MG Oral Tablet [facility] ([facility]) Dexamethasone 0.001 MG/MG / Tobramycin 0 .003 MG/MG Ophthalmic Ointment [Tobradex] [facility] ([facility]) Amoxicillin 500 MG Oral Capsule [facility] ([facility]) Amitriptyline Hydrochloride 25 MG Oral Tablet [facility] ([facility]) Amoxicillin 500 MG Oral Capsule [facility] ([facility]) Ciprofloxacin 500 MG Oral Tablet [facility] ([facility]) Dicyclomine Hydrochloride 10 MG Oral Capsule [facility] ([facility]) doxycycline hyclate 100 MG Oral Capsule [facility] ([facility]) Furosemide 40 MG Oral Tablet [facility] ([facility]) Levothyroxine Sodium 0.05 MG Oral Tablet [facility] ([facility]) Loperamide Hydrochloride 2 MG Oral Capsule [facility] ([facility]) NITROFURANTOIN, MACROCRYSTALS 25 MG / Ni trofurantoin, Monohydrate 75 MG Oral Capsule [facility] ([facility]) Omeprazole 20 MG Delayed Release Oral Capsule [facility] ([facility]) Ondansetron 4 MG Disintegrating Oral Tablet [facility] ([facility]) pantoprazole 40 MG Delayed Release Oral Tablet [facility] ([facility]) Phenazopyridine hydrochloride 200 MG Oral Tablet [facility] ([facility]) Dexamethasone 0.001 MG/MG / Tobramycin 0 .003 MG/MG Ophthalmic Ointment [Tobradex] [facility] ([facility]) Amitriptyline Hydrochloride 25 MG Oral Tablet [facility] ([facility]) Amoxicillin 500 MG Oral Capsule [facility] ([facility]) Ciprofloxacin 500 MG Oral Tablet [facility] ([facility]) Dicyclomine Hydrochloride 10 MG Oral Capsule [facility] ([facility]) doxycycline hyclate 100 MG Oral Capsule [facility] ([facility]) Furosemide 40 MG Oral Tablet [facility] ([facility]) Levothyroxine Sodium 0.05 MG Oral Tablet [facility] ([facility]) Loperamide Hydrochloride 2 MG Oral Capsule [facility] ([facility]) NITROFURANTOIN, MACROCRYSTALS 25 MG / Ni trofurantoin, Monohydrate 75 MG Oral Capsule [facility] ([facility]) Omeprazole 20 MG Delayed Release Oral Capsule [facility] ([facility]) Ondansetron 4 MG Disintegrating Oral Tablet [facility] ([facility]) pantoprazole 40 MG Delayed Release Oral Tablet [facility] ([facility]) Phenazopyridine hydrochloride 200 MG Oral Tablet [facility] ([facility]) Dexamethasone 0.001 MG/MG / Tobramycin 0 .003 MG/MG Ophthalmic Ointment [Tobradex] [facility] ([facility]) Amitriptyline Hydrochloride 25 MG Oral Tablet [facility] ([facility]) Amoxicillin 500 MG Oral Capsule [facility] ([facility]) Ciprofloxacin 500 MG Oral Tablet [facility] ([facility]) Dicyclomine Hydrochloride 10 MG Oral Capsule [facility] ([facility]) doxycycline hyclate 100 MG Oral Capsule [facility] ([facility]) Furosemide 40 MG Oral Tablet [facility] ([facility]) Levothyroxine Sodium 0.05 MG Oral Tablet [facility] ([facility]) Loperamide Hydrochloride 2 MG Oral Capsule [facility] ([facility]) NITROFURANTOIN, MACROCRYSTALS 25 MG / Ni trofurantoin, Monohydrate 75 MG Oral Capsule [facility] ([facility]) Omeprazole 20 MG Delayed Release Oral Capsule [facility] ([facility]) Ondansetron 4 MG Disintegrating Oral Tablet [facility] ([facility]) pantoprazole 40 MG Delayed Release Oral Tablet [facility] ([facility]) Phenazopyridine hydrochloride 200 MG Oral Tablet [facility] ([facility]) Dexamethasone 0.001 MG/MG / Tobramycin 0 .003 MG/MG Ophthalmic Ointment [Tobradex] [facility] ([facility]) Amitriptyline Hydrochloride 25 MG Oral Tablet [facility] ([facility]) Amoxicillin 500 MG Oral Capsule [facility] ([facility]) Ciprofloxacin 500 MG Oral Tablet [facility] ([facility]) Dicyclomine Hydrochloride 10 MG Oral Capsule [facility] ([facility]) doxycycline hyclate 100 MG Oral Capsule [facility] ([facility]) Furosemide 40 MG Oral Tablet [facility] ([facility]) Levothyroxine Sodium 0.05 MG Oral Tablet [facility] ([facility]) Loperamide Hydrochloride 2 MG Oral Capsule [facility] ([facility]) NITROFURANTOIN, MACROCRYSTALS 25 MG / Ni trofurantoin, Monohydrate 75 MG Oral Capsule [facility] ([facility]) Omeprazole 20 MG Delayed Release Oral Capsule [facility] ([facility]) Ondansetron 4 MG Disintegrating Oral Tablet [facility] ([facility]) pantoprazole 40 MG Delayed Release Oral Tablet [facility] ([facility]) Phenazopyridine hydrochloride 200 MG Oral Tablet [facility] ([facility]) Dexamethasone 0.001 MG/MG / Tobramycin 0 .003 MG/MG Ophthalmic Ointment [Tobradex] [facility] ([facility]) Amitriptyline Hydrochloride 25 MG Oral Tablet [facility] ([facility]) Amoxicillin 500 MG Oral Capsule [facility] ([facility]) Amoxicillin 875 MG / Clavulanate 125 MG Oral Tablet [facility] ([facility]) Ciprofloxacin 500 MG Oral Tablet [facility] ([facility]) Cyclobenzaprine hydrochloride 10 MG Oral Tablet [facility] ([facility]) Dicyclomine Hydrochloride 10 MG Oral Capsule [facility] ([facility]) doxycycline hyclate 100 MG Oral Capsule [facility] ([facility]) Furosemide 40 MG Oral Tablet [facility] ([facility]) Levothyroxine Sodium 0.05 MG Oral Tablet [facility] ([facility]) Loperamide Hydrochloride 2 MG Oral Capsule [facility] ([facility]) Methocarbamol 750 MG Oral Tablet [facility] ([facility]) NITROFURANTOIN, MACROCRYSTALS 25 MG / Ni trofurantoin, Monohydrate 75 MG Oral Capsule [facility] ([facility]) Omeprazole 20 MG Delayed Release Oral Capsule [facility] ([facility]) Ondansetron 4 MG Disintegrating Oral Tablet AZRA ([facility]) pantoprazole 40 MG Delayed Release Oral Tablet AZRA ([facility]) Phenazopyridine hydrochloride 200 MG Oral Tablet [facility] ([facility]) Prednisone 20 MG Oral Tablet [facility] ([facility]) Prednisone 50 MG Oral Tablet [facility] ([facility]) Dexamethasone 0.001 MG/MG / Tobramycin 0 .003 MG/MG Ophthalmic Ointment [Tobradex] [facility] ([facility]) Amitriptyline Hydrochloride 25 MG Oral Tablet [facility] ([facility]) Amoxicillin 500 MG Oral Capsule [facility] ([facility]) Amoxicillin 875 MG / Clavulanate 125 MG Oral Tablet [facility] ([facility]) Ciprofloxacin 500 MG Oral Tablet [facility] ([facility]) Cyclobenzaprine hydrochloride 10 MG Oral Tablet [facility] ([facility]) Dicyclomine Hydrochloride 10 MG Oral Capsule [facility] ([facility]) doxycycline hyclate 100 MG Oral Capsule [facility] ([facility]) Furosemide 40 MG Oral Tablet [facility] ([facility]) Levothyroxine Sodium 0.05 MG Oral Tablet [facility] ([facility]) Loperamide Hydrochloride 2 MG Oral Capsule [facility] ([facility]) Methocarbamol 750 MG Oral Tablet [facility] ([facility]) NITROFURANTOIN, MACROCRYSTALS 25 MG / Ni trofurantoin, Monohydrate 75 MG Oral Capsule [facility] ([facility]) Omeprazole 20 MG Delayed Release Oral Capsule [facility] ([facility]) Ondansetron 4 MG Disintegrating Oral Tablet [facility] ([facility]) pantoprazole 40 MG Delayed Release Oral Tablet [facility] ([facility]) Phenazopyridine hydrochloride 200 MG Oral Tablet [facility] ([facility]) Prednisone 20 MG Oral Tablet [facility] ([facility]) Prednisone 50 MG Oral Tablet [facility] ([facility]) Dexamethasone 0.001 MG/MG / Tobramycin 0 .003 MG/MG Ophthalmic Ointment [Tobradex] [facility] ([facility]) Dexamethasone 1 MG/ML / Tobramycin 3 MG/ML Ophthalmic Suspension [facility] Afluria Quad 60 mcg (15 mcg x 4)/0.5 mL intramuscular ulysses p. AZRA ([facility]) Amitriptyline Hydrochloride 10 MG Oral Tablet AZRA ([facility]) Amitriptyline Hydrochloride 25 MG Oral Tablet [facility] ([facility]) Amoxicillin 500 MG Oral Capsule AZ[facility] ([facility]) Amoxicillin 875 MG / Clavulanate 125 MG Oral Tablet [facility] ([facility]) Ciprofloxacin 500 MG Oral Tablet [facility] ([facility]) Cyclobenzaprine hydrochloride 10 MG Oral Tablet [facility] ([facility]) Dicyclomine Hydrochloride 10 MG Oral Capsule [facility] ([facility]) doxycycline hyclate 100 MG Oral Capsule [facility] ([facility]) Furosemide 40 MG Oral Tablet [facility] ([facility]) Levothyroxine Sodium 0.05 MG Oral Tablet [facility] ([facility]) Loperamide Hydrochloride 2 MG Oral Capsule [facility] ([facility]) Methocarbamol 750 MG Oral Tablet [facility] ([facility]) NITROFURANTOIN, MACROCRYSTALS 25 MG / Ni trofurantoin, Monohydrate 75 MG Oral Capsule [facility] ([facility]) Omeprazole 20 MG Delayed Release Oral Capsule [facility] ([facility]) Ondansetron 4 MG Disintegrating Oral Tablet [facility] ([facility]) Ondansetron 4 MG Oral Tablet [facility] ([facility]) pantoprazole 40 MG Delayed Release Oral Tablet [facility] ([facility]) Phenazopyridine hydrochloride 200 MG Oral Tablet [facility] ([facility]) POLYETHYLENE GLYCOL 3350 142 MG/ML Oral Solution [facility] ([facility]) Prednisone 20 MG Oral Tablet [facility] ([facility]) Prednisone 50 MG Oral Tablet [facility] ([facility]) Dexamethasone 0.001 MG/MG / Tobramycin 0 .003 MG/MG Ophthalmic Ointment [Tobradex] [facility] ([facility]) Dexamethasone 1 MG/ML / Tobramycin 3 MG/ML Ophthalmic Suspension [facility] ([facility]) potassium chloride SA ([id number]) 20 MEQ tablet [facility] Furosemide 20 MG Oral Tablet [facility] Afluria Quad 60 mcg (15 mcg x 4)/0.5 mL intramuscular ulysses p. [facility] ([facility]) Amitriptyline Hydrochloride 10 MG Oral Tablet [facility] ([facility]) Amitriptyline Hydrochloride 25 MG Oral Tablet [facility] ([facility]) Amoxicillin 500 MG Oral Capsule AZ[facility] ([facility]) Amoxicillin 875 MG / Clavulanate 125 MG Oral Tablet [facility] ([facility]) Ciprofloxacin 500 MG Oral Tablet [facility] ([facility]) Cyclobenzaprine hydrochloride 10 MG Oral Tablet [facility] ([facility]) Dicyclomine Hydrochloride 10 MG Oral Capsule [facility] ([facility]) doxycycline hyclate 100 MG Oral Capsule [facility] ([facility]) Furosemide 40 MG Oral Tablet [facility] ([facility]) Levothyroxine Sodium 0.05 MG Oral Tablet [facility] ([facility]) Loperamide Hydrochloride 2 MG Oral Capsule [facility] ([facility]) Methocarbamol 750 MG Oral Tablet [facility] ([facility]) NITROFURANTOIN, MACROCRYSTALS 25 MG / Ni trofurantoin, Monohydrate 75 MG Oral Capsule [facility] ([facility]) Omeprazole 20 MG Delayed Release Oral Capsule [facility] ([facility]) Ondansetron 4 MG Disintegrating Oral Tablet [facility] ([facility]) Ondansetron 4 MG Oral Tablet [facility] ([facility]) Ondansetron 8 MG Oral Tablet [facility] ([facility]) pantoprazole 40 MG Delayed Release Oral Tablet [facility] ([facility]) Phenazopyridine hydrochloride 200 MG Oral Tablet [facility] ([facility]) POLYETHYLENE GLYCOL 3350 142 MG/ML Oral Solution [facility] ([facility]) Prednisone 20 MG Oral Tablet [facility] ([facility]) Prednisone 50 MG Oral Tablet [facility] ([facility]) Sulfamethoxazole 800 MG / Trimethoprim 160 MG Oral Tablet [facility] ([facility]) Dexamethasone 0.001 MG/MG / Tobramycin 0 .003 MG/MG Ophthalmic Ointment [Tobradex] [facility] ([facility]) Dexamethasone 1 MG/ML / Tobramycin 3 MG/ML Ophthalmic Suspension [facility] ([facility])
[2021-05-25] MEDS ORDERED: NS 1,000 ML IV ONE (01:45)
--- OUTSIDE RECORDS SUMMARY | 2021-05-25 02:25 | CCD ---
Author Author [facility] Organization [facility] Address Unknown Phone Unavailable Support Name Relationship Address Phone NONE, PER PT Next Of Kin - -, - - - John Prinlge Next Of Kin [address] [place] [address] Kin Noriega Next Of Kin Unknown Unavailable Delroy Guerrero DO Next Of Kin [address] [place] [address] Malcolm MATOS, Yaya Next Of Kin [address] [place] [address] Celine MATOS, Shobha Next Of Kin [address] [place], [place] [id number] Tyrone Garcia MD Next Of Kin [address] [place] [address] Carlton TINOCO, Sonya Next Of Kin [address] [place] [address] [facility] Next Of Kin [address] [facility] [address] [place] [address] [employer] [place] [address] [place] [address] Unavailable SAE TENA Next Of Kin N/A Unknown SAE YOON Next Of Kin Unknown Kael NORIEGA Next Of Kin [address] [place] [address] COREY CORTEZ Next Of Kin [address] [place] [address] NADER NORIEGA Next Of Kin [address] [place] [address] KIN FRANCO Next Of Kin N/A Unknown Unavailable NA, NA Next Of Kin Unknown Unavailable SAE NORIEGA Next Of Kin [address] [place] [address] UE Next Of Kin Unknown Unavailable SAE CORTEZ Next Of Kin [address] [place] [address] UNEMPLOYED Next Of Kin [address] [place] [address] Unavailable NADER SORTO Next Of Kin [address] [place] [address] UMA TAMMY Next Of Kin [address] [place] [address] UN Next Of Kin Unknown Unavailable QUINCY [place] [address] ARAFAUSTINA TAMMY Next Of Kin [address] [place] [address] [facility] [address] [place] [address] Unavailable Care Team Providers Care Retread Builder Name Role Phone Bhutta, Sigrid Unavailable Bhutta, [...] Unavailable Jose, Kael Orozco MD Unavailable Unavailable LILA, A [...] AMY, Jair VAZQUEZ MD Unavailable Unavailable AMY, Jiar VAZQUEZ MD Unavailable Unavailable VENERUS, Therese BOB [...] Hill MD Unavailable Unavailable De Daryn, Lance iHll MD Unavailable Unavailable De Daryn, Lance Hill [...] YFN MD Unavailable Unavailable Dougherty, A Patricia DICE TABLE OPERATOR Unavailable Unavailable Dougherty, A Patricia DICE TABLE OPERATOR Unavailable Unavailable Dougherty, A Patricia DICE TABLE OPERATOR Unavailable Unavailable Dougherty, A Patricia DICE TABLE OPERATOR Unavailable Unavailable Dougherty, A Patricia DICE TABLE OPERATOR Unavailable Unavailable Dougherty, A Patricia DICE TABLE OPERATOR Unavailable Unavailable Fish, B Watson MATOS Unavailable [...] Unavailable Fish, B Watson MATOS Unavailable Unavailable Mercedes Carter MD Unavailable Unavailable VERONICA GUSMAN MD Unavailable [...] Sobia GONZALEZ MD Unavailable Unavailable SAGSobia CROOK DAVID MD Unavailable Unavailable SAGSobia CROOK MD Unavailable Unavailable SAGSobia CROOK DAVID MD Unavailable Unavailable SAGSobia CROOK DAVID MD Unavailable Unavailable SAGSobia CROOK MD Unavailable Unavailable SAGSobia CROOK DAVID MD Unavailable Unavailable SAGSobia CROOK DAVID MD Unavailable Unavailable SAGSobia CROOK DAVID MD Unavailable Unavailable SAGSobia CROOK DAVID MD Unavailable Unavailable SAGSobia CROOK DAVID MD Unavailable Unavailable SAGSobia CROOK DAVID MD Unavailable Unavailable SAGSobia CROOK DAVID MD Unavailable Unavailable SAGCANSobia DAVID MD Unavailable Unavailable SAGSobia CROOK DAVID MD Unavailable Unavailable SAGCAN G DAVID Unavailable Unavailable SAGCAN G DAVID Unavailable Unavailable SAGCAN G DAVID Unavailable Unavailable Klaudia Doguherty MD Unavailable Unavailable Klaudia Dougherty MD Unavailable [...] LE Unavailable Unavailable BHUTTA, SIGRID Unavailable Unavailable Klaudia SHOOK MD Unavailable Unavailable Klaudia SHOOK MD Unavailable Unavailable Klaudia SHOOK MD Unavailable Unavailable Klaudia SHOOK MD Unavailable Unavailable Klaudia SHOOK MD Unavailable Unavailable Klaudia SHOOK MD Unavailable Unavailable Klaudia SHOOK MD Unavailable Unavailable CHANKlaudia LANG MD Unavailable Unavailable CHANKlaudia LANG MD Unavailable Unavailable CHANLIKlaudia BERNAL MD Unavailable Unavailable CHANLIKlaudia BERNAL MD Unavailable Unavailable Eugenie, Andreia Unavailable Unavailable [...] Badrinath, Rosa Unavailable Devjeffrey, Neal Unavailable Devaraj, MD Navarroan Unavailable Devaraj, Neal Unavailable Devaraj, MD Neal [...] Unavailable Unavailable De DarynLance MD Unavailable Unavailable Lance Benitez MD Unavailable [...] Unavailable Unavailable Therese ROBB MD Unavailable Unavailable SANDOVAL, L TEODORO MD Unavailable Unavailable Haley BOYD MD Unavailable Unavailable Haley BOYD MD Unavailable Unavailable Haley BOYD MD Unavailable Unavailable Haley BOYD MD Unavailable Unavailable Haley BOYD MD Unavailable Unavailable Haley BOYD MD Unavailable Unavailable SANDOVALHaley SANCHEZ MD Unavailable Unavailable SANDOVALHaely SANCHEZ MD Unavailable Unavailable Haley BOYD MD [...] Therese Rincon JR, MD Unavailable Unavailable Therese iRncon JR, MD Unavailable Unavailable Therese Rincon JR, [...] Unavailable Therese Rincon JR, MD Unavailable Unavailable Thersee Rincon JR, MD Unavailable Unavailable Therese Rincon [...] Unavailable Kel DelgadoC Unavailable Unavailable Kel Delgado PAMikaelC Unavailable Unavailable Kel DelgadoC Unavailable Unavailable Kel DelgadoC Unavailable Unavailable Delgado, M Christopher PA-C Unavailable [...] Unavailable Unavailable SAE DELONG MD Unavailable Unavailable SEA DELONG MD Unavailable Unavailable Kael Garcia MD [...] Unavailable Unavailable CULRICHARD QUIROZ MD Unavailable Unavailable RICHARD LARIOS MD Unavailable Unavailable CULRICHARD QUIROZ MD Unavailable Unavailable CULRICHARD QUIROZ MD Unavailable Unavailable CULRICHARD QUIROZ MD Unavailable Unavailable CULRICHARD QUIROZ MD Unavailable Unavailable CULRICHARD QUIROZ MD Unavailable Unavailable RICHARD LARIOS MD Unavailable Unavailable RICHARD LARIOS MD Unavailable Unavailable RICHARD LARIOS MD Unavailable Unavailable RICHARD LARIOS MD Unavailable Unavailable TJ BLUL Unavailable Unavailable Mercedes SHINE Unavailable Unavailable Kael [...] Unavailable Sobia Caballero MD Unavailable Unavailable CaballeroSobia MD Unavailable Unavailable CaballeroSobia villanueva MD Unavailable [...] DEBANIK Unavailable Unavailable NISSA, DEBANIK Unavailable Unavailable NISAS, DEBANIK Unavailable Unavailable NISSA, DEBANIK Unavailable Unavailable [...] Unavailable Unavailable Mayes, Lemuel Unavailable Unavailable Mayes, Lmeuel Unavailable Unavailable Mayes, Lemuel Unavailable Unavailable Mayes, [...] is protected by Article 27-F of the [facility] Public Health law. If you continue you may have access to information: Regarding HIV / AIDS; Provided by facilities licensed or operated by the [facility] Office of Mental Health; or Provided by the [facility] Office for People With Developmental Disabilities. If such information is present, then the following [facility] mandated warning applies: This information has been [...] law may result in a fine or mcc sentence or both. A general authorization for the release of medical or other information is NOT sufficient authorization for further disc losure. Allergies and Adverse Reactions Type Description Substance Reaction Status Data Source(s ) Propensity to adverse reactions CONTRAST MEDIA, IODINE RELAT ED CONTRAST MEDIA, IODINE RELATED [facility] Propensity to adverse reactions REGLAN REGLAN [facility] Drug allergy TRAMADOL TRAMADOL [facility] Drug allergy ASPIRIN ASPIRIN [facility] Propensity to adverse reactions TRAMADOL Tramadol Anaphylaxis Hig h Active [facility] High Propensity to adverse reactions PSEUDOEPHEDRINE-ACETAMINOPHE N Pseudoephedrine-Acetaminophen Shortness Of Breath High Active [facility] High Propensity to adverse reactions METOCLOPRAMIDE Metoclopramide Active [facility] Drug allergy metoclopramide metoclopramide [facility] Drug allergy tramadol Tramadol [facility] Drug allergy aspirin Aspirin [facility] Drug allergy metoclopramide metoclopramide [facility] Drug allergy tramadol [facility] Drug allergy aspirin [facility] Drug allergy metoclopramide metoclopramide [facility] Drug allergy tramadol Tramadol [facility] Drug allergy aspirin Aspir[facility] Family History Family Member Name Family Member Gender Family Member Status Date o f Status Description Data Source(s) Unknown Condition [facility] Unknown Condition [facility] Unknown Condition [facility] Unknown Condition [facility] Unknown Condition [facility] Unknown Condition [facility] Unknown Condition [facility] Unknown Condition [facility] Unknown Condition [facility] Unknown Condition [facility] Unknown Condition [facility] Unknown Condition [facility] Unknown Condition [facility] Unknown Condition [facility] Encounters Encounter Providers Location Date Indications Data Source(s ) Outpatient Attender: Manisha Carrasco MD 10/24/2021 12:00: 00 AM [facility] Outpatient Attender: SIGRID Elenaender: Sigrid Frausto 09/11/2021 12:00:00 AM [facility] Outpatient Attender: Sigrid FraustoAttender: SIGRID FRAUSTO 09/04/2021 12:00:00 AM [facility] Outpatient Attender: ROSA GUARDADO .Attender: Rosa lópez 07/24/2021 12:00:00 AM [facility] Outpatient Attender: ALVA ROLDAN JR 06/21/2021 12:00:00 AM [facility] Outpatient Attender: ALVA ROLDAN JR 06/21/2021 12:00:00 AM [facility] Outpatient Attender: NEAL Lozanoender: MD Neal juárez 06/12/2021 12:00:00 AM [facility] Emergency Attender: LISA SHOOK MDConsultant: Mp Garcia MD 05/18/2021 11:11:00 AM EDT - 05/18/2021 05:14:00 PM EDT [facility] Patient discharged. Outpatient Attender: Sigrid FraustoAttender: ASHKAN ALTAMIRANOReferrer: Tyrone Garcia MD [id number] 05/08/2021 12:00:00 AM EDT [facility] Outpatient Attender: ALVA ROLDAN JRReferrer: ALVA KISER JR 05/06/2021 12:00:00 AM EDT - 05/06/2021 09:15:18 AM EDT Syncope and collapse [facility] Syncope and collapse Outpatient Attender: Watson Carter MD Physical Therapy 05/02/2021 0 8:30:00 AM EDT [facility] ([facility]) Outpatient Attender: Benedict Edwards/Prachi/Leobardo/Rein dl 05/01/2021 03:45:00 PM EDT [facility] ([facility]) Outpatient Attender: Manisha Carrasco MD [id number] 12:00:00 AM EDT - 04/25/2021 12:03:20 PM EDT [facility] Tyrone Garcia MD: [address] [place] [phone], Ph. Attender: Tyrone Garcia MD [facility] Medical 04/08/2021 12:00:00 AM EDT [facility] ([facility]) Outpatient Attender: ALVA ROLDAN JRReferrer: ALVA KISER JR 04/05/2021 12:00:00 AM EDT [facility] Outpatient Attender: ALVA ROLDAN JR 04/05/2021 12:00:00 AM EDT [facility] Outpatient Attender: Manisha Carrasco MD 03/29/2021 12:00: 00 AM EDT [facility] Outpatient Attender: ENRRIQUE SHARMA RPA 03/28 08:09:51 PM EDT - 03/28/2021 09:12:58 PM EDT [facility] ([facility] ) Outpatient Referrer: Lemuel Mayes 03/22/2021 12:00:00 AM E [facility] Outpatient Attender: Lemuel MayesReferrer: Tyrone Garcia MD 0 [id number] 03/22/2021 12:00:00 AM EDT - 03/22/2021 03:25:54 PM EDT [facility] Outpatient Attender: Lemuel MayesReferrer: Lemuel Mayes 03/22/2021 12:00:00 AM [facility] Outpatient Attender: Lemuel Mayes 03/22/2021 12:00:00 AM E [facility] Outpatient Referrer: Lemuel Mayes 03/22/2021 12:00:00 AM E [facility] Outpatient Referrer: Lemuel Mayes 03/21/2021 12:00:00 AM E [facility] Outpatient Attender: ALVA ROLDAN JR [id number] 02/18 12:00:00 AM EDT - 03/15/2021 04:51:03 PM [facility] Outpatient Attender: Derek Lynne MDAt tender: Herminia Oconnor MDAttender: DAVID GONZALEZ MDAttender: TJ BULLAdmitter: DAVID GONZALEZ MD [id number] 03/11/2021 07:33:00 AM EDT - 03/13/2021 07:37:00 PM EDT [facility] Patient discharged. Outpatient Attender: LISSETTE STEELEReferrer: RICHARD JACOBS MD 03/10/2021 12:00:00 AM EDT Apnea, not elsewhere classified [facility] pital Apnea, not elsewhere classified Fred Traore MD: [address] [place] [address], Ph. Attender: Fred Traore [facility] Medical 03/05/2021 12:00:00 AM EDT [facility] ([facility]) Fred Traore MD: [address] [place] [address], Ph. Attender: Fred Traore [facility] 03/05/2021 12:00:00 AM EDT [place] ([facility]) Outpatient Attender: Julio César Delgado PA-C 03/03/2021 09:35:40 PM EDT - 03/03/2021 10:22:53 PM EDT [facility] ([facility]) Inpatient Attender: Stoney Cristina MD Attender: YFN BELTRAN MDAdmitter: Stoney Cristina MD 02/26/2021 04:07:00 AM EDT - 02/26/2021 07:53:00 PM EDT CHEST PAIN,ABDOMINAL PAIN [facility] CHEST PAIN,ABDOMINAL PAIN Patient discharged. Inpatient Attender: TRACY NIELSEN dmitter: TRACY AZARReferrer: ALEXIA TAYLOR [id number] 02/26/2021 12:00:00 AM EDT - 02/28/2021 09:57:00 PM EDT [facility] Patient discharged. Outpatient Attender: Lemuel MayesReferrer: Tyrone Garcia MD 0 [id number] 02/25/2021 12:00:00 AM EDT [facility] Emergency Attender: NIKHIL CAMERONConsultant: Tyrone Garcia MD 02/12/2021 12:21:00 AM EDT - 02/12/2021 04:00:00 AM EDT [facility] Patient discharged. Outpatient 01/21/2021 12:00:00 AM EDT [facility] Outpatient 01/19/2021 12:00:00 AM EDT [facility] Outpatient Attender: ASHUTOSH Lamar: RICHARD Chinchilla MD 01/18/2021 12:00:00 AM EDT Apnea, not elsewhere classified [facility] pital Apnea, not elsewhere classified Outpatient 01/12/2021 12:00:00 AM EDT [facility] Outpatient Attender: ALVA ROLDAN JRReferrer: ALVA KISER JR [id number] 01/03/2021 10:07:58 AM EDT - 01/03/2021 11:05:14 AM EDT [facility] Emergency Attender: MANISHA ROBB MD 12/26/2020 12:0 0:00 AM EDT Unspecified abdominal pain [facility] Unspecified abdominal pain Tyrone Garcia MD: [address] [place] [phone], Ph. Attender: Tyrone Garcia MD [facility] Medical 12/19/2020 12:00:00 AM EDT [place] ([facility]) Tyrone Garcia MD: [address] [place] [phone], Ph. Attender: Tyrone Garcia MD [facility] Medical 12/19/2020 12:00:00 AM EDT [place] ([facility]) Tyrone Garcia MD: [address] [place] [phone], Ph. 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 Attender: Tyrone Garcia MD [facility] Medical 11/22/2020 12:00:00 AM EDT [facility] ([facility]) Tyrone Garcia MD: [address] [place] [phone], Ph. Attender: Tyrone Garcia MD [facility] Medical 11/22/2020 12:00:00 AM EDT [facility] ([facility]) Tyrone Garcia MD: [address] [place] [phone], Ph. Attender: Tyrone Garcia MD [facility] Medical 11/22/2020 12:00:00 AM EDT [facility] ([facility]) Tyrone Garcia MD: [address] [place] [phone], Ph. Attender: Tyrone Garcia MD [facility] Medical 11/22/2020 12:00:00 AM EDT [facility] ([facility]) Outpatient Attender: Julio César Delgado PA-C 11/20/2020 07:36:58 PM EDT - 11/20/2020 09:07:19 PM EDT [facility] ([facility]) Emergency Attender: TEODORO BOYD MDReferrer: TEODORO BOYD MD 11/14/2020 12:00:00 AM EDT Nausea, pain [facility] Nausea, pain Emergency 11/13/2020 12:00:00 AM EDT L ots of chest pain and feeling nauseous [facility] Lots of chest pain and feeling nauseous Outpatient 11/08/2020 12:00:00 AM EDT [facility] Tyrone Garcia MD: [address] [place] [phone], Ph. Attender: Tyrone Garcia MD [facility] Medical 11/01/2020 12:00:00 AM EDT [facility] ([facility]) Tyrone Garcia MD: [address] [place] [phone], Ph. Attender: Tyrone Garcia MD [facility] Medical 11/01/2020 12:00:00 AM EDT [facility] ([facility]) Tyrone Garcia MD: [address] [place] [phone], Ph. Attender: Tyrone Garcia MD [facility] Medical 11/01/2020 12:00:00 AM EDT [facility] ([facility]) Tyrone Garcia MD: [address] [place] [phone], Ph. Attender: Tyrone Garcia MD [facility] Medical 11/01/2020 12:00:00 AM EDT [facility] ([facility]) Tyrone Garcia MD: [address] [place] [phone], Ph. Attender: Tyrone Garcia MD [facility] Medical 11/01/2020 12:00:00 AM EDT [place] ([facility]) Emergency Attender: Maykel DELONG MD 10/27/2020 12:00:0 0 AM EDT Periumbilical pain [facility] Periumbilical pain Outpatient Attender: Lemuel MayesReferrer: Tyrone Garcia MD 0 [id number] 10/23/2020 12:00:00 AM EDT - 10/23/2020 09:07:12 AM EDT Other specified disorders of urinary system [facility] Other specified disorders of urinary sys tem Outpatient Attender: SARAH LANGeferrer: Tyrone luna MD [id number] 10/09/2020 12:00:00 AM EDT - 10/09/2020 09:47:15 AM EDT [facility] Tyrone Garcia MD: [address] [place] [phone], Ph. Attender: Tyrone Garcia MD [facility] Medical 10/03/2020 12:00:00 AM EDT [facility] ([facility]) Tyrone Garcia MD: [address] [place] [phone], Ph. Attender: Tyrone Garcia MD [facility] Medical 10/03/2020 12:00:00 AM EDT [facility] ([facility]) Tyrone Garcia MD: [address] [place] [phone], Ph. Attender: Tyrone Garcia MD [facility] Medical 10/03/2020 12:00:00 AM EDT [facility] ([facility]) Tyrone Garcia MD: [address] [place] [phone], Ph. Attender: Tyrone Garcia MD [facility] Medical 10/03/2020 12:00:00 AM EDT [facility] ([facility]) Tyrone Garcia MD: [address] [place] [phone], Ph. Attender: Tyrone Garcia MD [facility] Medical 10/03/2020 12:00:00 AM EDT [facility] ([facility]) Tyrone Garcia MD: [address] [place] [phone], Ph. Attender: Tyrone Garcia MD [facility] Medical 10/03/2020 12:00:00 AM EDT [facility] ([facility]) Tyrone Garcia MD: [address] [facility] [address], [place] [address], Ph. Attender: Tyrone Garcia MD [facility] Medical 09/26/2020 12:00:00 AM EST [facility] ([facility]) Tyrone Garcia MD: [address], [place] [address], Ph. Attender: Tyrone Garcia MD [facility] Medical 09/26/2020 12:00:00 AM EST [facility] ([facility]) Tyrone Garcia MD: [address], [address], [place] [address], Ph. Attender: Tyrone Garcia MD [facility] Medical 09/26/2020 12:00:00 AM EST [facility] ([facility]) Tyrone Garcia MD: [address], [address], [place] [address], Ph. Attender: Tyrone Garcia MD [facility] Medical 09/26/2020 12:00:00 AM EST [facility] ([facility]) Tyrone Garcia MD: [address], [address], [place] [address], Ph. Attender: Tyrone Garcia MD [facility] Medical 09/26/2020 12:00:00 AM EST [facility] ([facility]) Tyrone Garcia MD: [address], [address], [place] [address], Ph. Attender: Tyrone Garcia MD [facility] Medical 09/26/2020 12:00:00 AM EST [facility] ([facility]) Tyrone Garcia MD: [address], [address], [place] [address], Ph. Attender: Tyrone Garcia MD [facility] Medical 09/26/2020 12:00:00 AM EST [facility] ([facility]) Outpatient Attender: Lemuel Mayes [id number] 12:00:00 AM EST - 09/26/2020 12:00:00 AM EST Painful micturition, unspecified [facility] Painful micturition, unspecified Emergency Attender: Esdras Caballero MD 09/25/2020 12:00:[address] Low back pain [facility] Low back pain Outpatient Attender: Neelima Dougherty MD 0 09/21/2020 07:44:16 PM EST - 09/21/2020 08:02:39 PM EST [facility] ([facility]) Outpatient Attender: ALVA ROLDAN JR [id number] 0311/2020 12:00:00 AM EST - 09/21/2020 01:27:28 PM EST [facility] Outpatient Attender: Manisha Carrasco MD [id number] 12:00:00 AM EST - 09/21/2020 12:25:26 PM [facility]: TYRONE Chackoferrer: Manisha dang MD 09/21/2020 12:00:00 AM EST - 09/21/2020 02:09:39 PM EST 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 Outpatient Attender: ALVA ROLDAN JR 09/17/2020 12:00:00 AM EST [facility] Emergency Attender: Elmer Body MDReferrer: Elmer Boyd MD 09/06/2020 12:00:00 AM EST nausea , headache [facility] nausea , headache Tyrone Garcia MD: [address] [place] [phone], Ph. Attender: Tyrone Garcia MD [place] [facility] Medical 09/06/2020 12:00:00 AM EST [facility] ([facility]) Tyrone Garcia MD: [address] [place] [address], Ph. Attender: Tyrone Garcia MD [facility] Medical 09/06/2020 12:00:00 AM EST [facility] ([facility]) Tyrone Garcia MD: [address] [place] [address], Ph. Attender: Tyrone Garcia MD [facility] Medical 09/06/2020 12:00:00 AM EST [facility] ([facility]) Tyrone Garcia MD: [address] [place] [address], Ph. Attender: Tyrone Garcia MD [facility] Medical 09/06/2020 12:00:00 AM EST [facility] ([facility]) Tyrone Garcia MD: [address] [place] [address], Ph. Attender: Tyrone Garcia MD [facility] Medical 09/06/2020 12:00:00 AM EST [facility] ([facility]) Tyrone Garcia MD: [address] [place] [address], Ph. Attender: Tyrone Garcia MD [facility] Medical 09/06/2020 12:00:00 AM EST [facility] ([facility]) Tyrone Garcia MD: [address] [place] [address], Ph. Attender: Tyrone Garcia MD [facility] Medical 09/06/2020 12:00:00 AM EST [facility] ([facility]) Tyrone Garcia MD: [address] [place] [address], Ph. Attender: Tyrone Garcia MD [facility] Medical 09/06/2020 12:00:00 AM EST [facility] ([facility]) Tyrone Garcia MD: [address], [address], [place] [address], Ph. Attender: Tyrone Garcia MD [facility] Medical 08/29/2020 12:00:00 AM EST [facility] ([facility]) Tyrone Garcia MD: [address], [address] [address], [place] [address], Ph. Attender: Tyrone Garcia MD [facility] Medical 08/29/2020 12:00:00 AM EST [facility] ([facility]) Tyrone Garcia MD: [address], [address], [place] [address], Ph. Attender: Tyrone Garcia MD [facility] Medical 08/29/2020 12:00:00 AM EST [facility] ([facility]) Tyrone Garcia MD: [address], [address], [place] [address], Ph. Attender: Tyrone Garcia MD [facility] Medical 08/29/2020 12:00:00 AM EST [facility] ([facility]) Tyrone Garcia MD: [address], [address], [place] [address], Ph. Attender: Tyrone Garcia MD [facility] Medical 08/29/2020 12:00:00 AM EST [facility] ([facility]) Tyrone Garcia MD: [address], [address], [place] [address], Ph. Attender: Tyrone Garcia MD [facility] Medical 08/29/2020 12:00:00 AM EST [facility] ([facility]) Tyrone Garcia MD: [address], [address], [place] [address], Ph. Attender: Tyrone Garcia MD [facility] Medical 08/29/2020 12:00:00 AM EST [facility] ([facility]) Tyrone Garcia MD: [address], [place] [address], Ph. Attender: Tyrone Garcia MD [facility] [place] 08/29/2020 12:00:00 AM EST [facility] ([facility]) Tyrone Garcia MD: [address], [place] [address], Ph. Attender: Tyrone Garcia MD [facility] [place] 08/29/2020 12:00:00 AM EST [facility] ([facility]) Emergency Attender: TEODORO BOYD MD 08/27/2020 12:00:00 A M [facility] Back pain Outpatient Attender: Maria Esther Ellington RD CDNReferrer: Tyrone Rojas rn, MD 08/24/2020 10:04:00 AM EST - 08/24/2020 11:34:00 AM EST Nutrition/[facility]of6 [facility] Nutrition/5of6 Patient discharged. Outpatient Attender: Lemuel Mayes 08/21/2020 12:00:00 AM E [facility] Emergency Attender: Maykel DELONG MD 08/08/2020 12:00:0 0 AM EST Noninfective gastroenteritis and colitis, unspecified [facility] Noninfective gastroenteritis and colitis , unspecified Outpatient Attender: Patricia Dougherty NPReferrer: Tyrone luna MD 07/27/2020 10:31:00 AM EST - 07/27/2020 10:50:00 AM EST Weigh In/[facility]of6 [facility] Weigh In/4of6 Patient discharged. Emergency Attender: TEODORO BOYD MD 07/26/2020 12:00:00 A M [facility] Outpatient Attender: Sergio Benitez MDReferrer: Tyrone Constantino MD 07/18/2020 02:43:00 PM EST - 07/18/2020 03:38:[address]/3of6 [facility] Meet the Dr/3of6 Patient discharged. Emergency Attender: PAULINO CASTELLANOS MDConsultant: Tyrone luna MD 07/15/2020 07:08:00 PM EST - 07/15/2020 10:04:00 PM EST [facility] Patient discharged. Emergency Attender: TEODORO BOYD MD 07/14/2020 12:0 0:00 AM EST dizzy, stomach pain [facility] dizzy, stomach pain Emergency Attender: Maykel DELONG MD 07/02/2020 12:00:0 0 AM EST Viral infection, unspecified [facility] Viral infection, unspecified Emergency Attender: Elmer Boyd MD 06/21/2020 12:0 0:00 AM EST Fever, unspecified [facility] Fever, unspecified Outpatient Attender: ALVA ROLDAN JRReferrer: ALVA KISER JR [id number] 06/18/2020 01:55:37 PM EST - 06/18/2020 03:02:08 PM EST Dilated cardiomyopathy [facility] Dilated cardiomyopathy Outpatient Attender: Maria Esther Ellington [...] AM EST Acute upper respiratory infection, unspecified [facility] Acute upper respiratory infection, unspe cified Tyrone Garcia MD: [address] [place] [address], Ph. Attender: Tyrone Garcia MD [facility] Medical 05/28/2020 12:00:00 AM EST [facility] ([facility]) Tyrone Garcia MD: [address] [place] [address], Ph. Attender: Tyrone Garcia MD [facility] Medical 05/28/2020 12:00:00 AM EST [facility] ([facility]) Tyrone Garcia MD: [address] [place] [address], Ph. Attender: Tyrone Garcia MD [facility] Medical 05/28/2020 12:00:00 AM EST [facility] ([facility]) Tyrone Garcia MD: [address] [place] [address], Ph. Attender: Tyrone Garcia MD [facility] Medical 05/28/2020 12:00:00 AM EST [facility] ([facility]) Tyrone Garcia MD: [address] [place] [address], Ph. Attender: Tyrone Garcia MD [facility] Medical 05/28/2020 12:00:00 AM EST [facility] ([facility]) Tyrone Garcia MD: [address] [place] [address], Ph. Attender: Tyrone Garcia MD [facility] Medical 05/28/2020 12:00:00 AM EST [facility] ([facility]) Tyrone Garcia MD: [address] [place] [address], Ph. Attender: Tyrone Garcia MD [facility] Medical 05/28/2020 12:00:00 AM EST [facility] ([facility]) Tyrone Garcia MD: [address] [place] [address], Ph. Attender: Tyrone Garcia MD [facility] Medical 05/28/2020 12:00:00 AM EST [facility] ([facility]) Tyrone Garcia MD: [address] [place] [address], Ph. Attender: Tyrone Garcia MD [facility] Medical 05/28/2020 12:00:00 AM EST [facility] ([facility]) Tyrone Garcia MD: [address] [place] [address], Ph. Attender: Tyrone Garcia MD [facility] Medical 05/28/2020 12:00:00 AM EST [facility] ([facility]) Emergency Attender: Maykel DELONG MD 05/21/2020 12:00:0 0 AM EST Acute upper respiratory infection, unspecified [facility] Acute upper respiratory infection, unspe cified Emergency Attender: PAULINO CASTELLANOS MDConsultant: Tyrone luna MD 05/20/2020 07:34:00 PM EST - 05/20/2020 11:01:00 PM EST [facility] Patient discharged. Outpatient Attender: Tyrone Garcia MD 05/16/2020 01:23:00 PM EDT [facility] Outpatient Attender: Sergio Benitez MDConsultant: Camron Benitez MD 05/16/2020 09:23:00 AM EDT [address] [facility] [address] [address] Outpatient Attender: Sergio Benitez MD 1 07:46:00 AM EDT - 05/16/2020 09:58:00 AM EDT [address] [facility] [address] Patient discharged. Emergency Attender: JAY JAY CORONEL MD 05/09/2020 12:00:00 AM EDT Furuncle, unspecified [facility] Furuncle, unspecified Outpatient Attender: SIGRID FRAUSTO [id number] 05/02/2020 12:00:00 AM EDT [facility] Outpatient 05/02/2020 12:00:00 AM EDT [facility] Outpatient Attender: Tyrone Garcia MD 05/01/2020 11:35:00 AM EDT [facility] Outpatient Attender: Tyrone Garcia MD 05/01/2020 11:34:59 AM EDT [facility] Outpatient Attender: Tyrone Garcia MD 05/01/2020 10:35:01 AM EDT [facility] Outpatient Attender: Tyrone Garcia MD FP 05/01/2020 10:35:01 AM EDT [facility] Outpatient Attender: Tyrone Garcia MD FP 04/27/2020 01:49:00 PM EDT [facility] Outpatient Attender: Tyrone Garcia MD FP 04/26/2020 08:24:01 AM EDT [facility] Emergency Attender: NIKHIL Patsultant: Tyrone Garcia MD 04/25/2020 09:46:00 PM EDT - 04/26/2020 12:11:00 AM EDT [facility] Patient discharged. Emergency Attender: JAY JAY CORONEL MD 04/25/2020 12:00:00 AM EDT Syncope and collapse [facility] Syncope and collapse Emergency 04/25/2020 12:00:00 AM EDT passing o ut [facility] passing out Emergency 04/25/2020 12:00:00 AM EDT [facility] Outpatient Attender: Patricia Dougherty NP 12/2019 08:04:00 AM EDT - 04/24/2020 09:12:00 AM EDT New Patient/Online seminar 04/13/20 [facility] New Patient/Online seminar 04/13/20 Patient discharged. Emergency Attender: VERONICA GUSMAN MD 0 12:00:00 AM EDT Right upper quadrant pain [facility] Right upper quadrant pain Outpatient Attender: Tyrone Garcia MD FP 04/17/2020 11:10:00 AM EDT [facility] Outpatient Attender: SRUTHI CORONEL [id number] 04/14/2020 11:42:47 PM EDT [facility] Outpatient Attender: Sergio Benitez MD 0 04/13/2020 04:00:00 PM EDT - 04/13/2020 12:50:00 PM EDT Online Seminar [facility] Online Seminar Patient discharged. Emergency Attender: JAY JAY CORONEL MD 04/04/2020 12:00:00 AM EDT Viral infection, unspecified [facility] Viral infection, unspecified Emergency 04/03/2020 12:00:00 AM EDT general f eeling of unwell [facility] general feeling of unwell Outpatient Attender: Tyrone Garcia MD FP 03/30/2020 01:17:02 PM EDT [facility] Outpatient Attender: Tyrone Garcia MD FP 03/30/2020 01:17:02 PM EDT [facility] Outpatient Attender: Tyrone SOLANO 03/27/2020 09:27:01 AM EDT [facility] Emergency Attender: GEORGE REYES MD [id number] 10/2019 12:00:00 AM EDT - 03/23/2020 09:53:00 PM EDT Upper abdominal pain, unspecified [facility] Upper abdominal pain, unspecified Patient discharged. Outpatient Attender: Manisha Carrasco MD [id number] 12:00:00 AM EDT - 03/23/2020 11:59:02 AM EDT [facility] Outpatient Attender: ALVA ROLDAN JR A-XXUCCAR 01/2020 12:00:00 AM EDT - 02/24/2020 04:17:22 PM EDT Palpitations [facility] Palpitations Functional Status Immunizations Vaccine Date Status Description Data Source(s) COVID-19 VACCINE Moderna 05/20/2021 12:00:00 AM EDT completed [place] Vaccine Series Complete: YESThis Data wa s Submitted to [facility] Via FIXO. COVID-19, mRNA, LNP-S, PF, 100 mcg/0.5 mL dose 11/01/2020 11 :16:02 AM EDT completed .5 mL [facility] ([facility]) COVID-19, mRNA, LNP-S, PF, 100 mcg/0.5 mL dose 11/01/2020 11 :16:02 AM EDT completed .5 mL [facility] ([facility]) COVID-19, mRNA, LNP-S, PF, 100 mcg/0.5 mL dose 11/01/2020 11 :16:02 AM EDT completed .5 mL [facility] ([facility]) COVID-19, mRNA, LNP-S, PF, 100 mcg/0.5 mL dose 11/01/2020 11 :16:02 AM EDT completed .5 mL [facility] ([facility]) COVID-19, mRNA, LNP-S, PF, 100 mcg/0.5 mL dose 11/01/2020 11 :16:02 AM EDT completed .5 mL [facility] ([facility]) COVID-19 VACCINE Moderna 11/01/2020 12:00:00 AM EDT completed [place] Vaccine Series Complete: YESThis Data wa s Submitted to [facility] Via [facility]. COVID-19, mRNA, LNP-S, PF, 100 mcg/0.5 mL dose 10/03/2020 05 :42:15 PM EDT completed 10.5 mL [facility] ([facility]) COVID-19, mRNA, LNP-S, PF, 100 mcg/0.5 mL dose 10/03/2020 05 :42:15 PM EDT completed .5 mL [facility] ([facility]) COVID-19, mRNA, LNP-S, PF, 100 mcg/0.5 mL dose 10/03/2020 05 :42:15 PM EDT completed .5 mL [facility] ([facility]) COVID-19, mRNA, LNP-S, PF, 100 mcg/0.5 mL dose 10/03/2020 05 :42:15 PM EDT completed 10.5 mL [facility] ([facility]) COVID-19, mRNA, LNP-S, PF, 100 mcg/0.5 mL dose 10/03/2020 05 :42:15 PM EDT completed 10.5 mL [facility] ([facility]) COVID-19, mRNA, LNP-S, PF, 100 mcg/0.5 mL dose 10/03/2020 05 :42:15 PM EDT completed 10.5 mL [facility] ([facility]) COVID-19 VACCINE Moderna 10/03/2020 12:00:00 AM EDT completed [facility] Vaccine Series Complete: NOThis Data was Submitted to [facility] Via FIX[employer]. Medications Medication Brand Name Start Date Product Form Dose Route Admi nistrative Instructions Pharmacy Instructions Status Indications Reaction Description Data Source(s) iohexol (OMNIPAQUE) 300 MG/ML contrast injection 100 mL 1776 02 03/22/2021 03:00:00 PM EDT 100 mL Intravenous completed 100 mL, Intravenous, 1 TIME IMAGING, On Thu03/22/21 at 1500, For 1 dose, Imaging Protocol [facility] Medication administered onsite furosemide (LASIX) injection 20 mg [id number] 03/22/2021 01:15:00 PM EDT 20 mg Intravenous completed 20 mg, I ntravenous, Once, On Thu03/22/21 at 1315, For 1 dose
Notify provider if systolic blood pressure less than: 90 mmHg [facility] Medication administered onsite TC-99M pentetate [id number] 03/22/2021 09:45:00 AM EDT Intr avenous completed Intravenous, Once, On Thu03/22/21 at 0945, For 1 dose, Imaging Protocol [facility] Medication administered onsite sodium chloride 0.9% (NS) infusion 03/13/2021 07:00:00 P M EDT Intravenous active at 50 mL/hr, Intravenous, Continuous, Starting on Thu03/13/21 at 1900, For 12 hours [facility] Medication administered onsite sodium chloride 0.9% (NS) bolus 250 mL 01:00:00 PM EDT 250 mL Intravenous completed 250 mL, In travenous, Administer over 1 Hours, Once, On Thu03/13/21 at 1300, For 1 dose [facility] Medication administered onsite lidocaine (ASPERCREME) 4 % 1 patch [id number] 03/13/2021 11:00:00 AM EDT 1 {patch} Transdermal active 1 patch, Transdermal, Administer over 12 Hours, Daily, First dose on Thu03/13/21 at 1100
LUQ abdomen
[facility] Medication administered onsite Ondansetron 4 MG Disintegrating Oral Tab let ondansetron (ZOFRAN-ODT) disintegrating tablet 4 mg ondansetron (ZOFRAN-ODT) disintegrating tablet 4 mg 03/13/2021 10:20:53 AM EDT 4 mg Oral active 4 mg, Oral, Every 6 hours PRN, nausea, vomiting, Starting on Thu03/13/21 at 1020 [facility] Medication administered onsite Ibuprofen 600 MG Oral Tablet ibuprofen (ADVIL,MOTRIN) tablet 600 mg ibuprofen (ADVIL,MOTRIN) tablet 600 mg 03/12/2021 10:52:00 PM EDT 600 mg Oral aborted 600 mg, Oral, Every 6 hours PRN, fever, headaches, Starting on Thu03/12/21 at 2252 [facility] Medication administered onsite ondansetron (ZOFRAN) injection 4 mg [id number] 03/12/2021 07:42:2 5 PM EDT 4 mg Intravenous active 4 mg, In travenous, Every 6 hours PRN, nausea, vomiting, Starting on Thu03/12/21 at 1942 [facility] Medication administered onsite technetium sestamibi (CARDIOLITE) injection 35 millaquilino huitron or medication 03/12/2021 03:00:00 PM EDT 35 mCi Intravenous completed 35 millicurie, Intravenous, Once, On Thu03/12/21 at 1500, For 1 dose [facility] Medication administered onsite technetium sestamibi (CARDIOLITE) injection 10 millaquilino huitron or medication 03/12/2021 03:00:00 PM EDT 10 mCi Intravenous completed 10 millicurie, Intravenous, Once, On Thu03/12/21 at 1500, For 1 dose [facility] Medication administered onsite sodium chloride 0.9% (NS) bolus 250 mL 12:00:00 PM EDT 250 mL Intravenous active 250 mL, Intr avenous, Administer over 1 Hours, Once, On Thu03/12/21 at 1200, For 1 dose [facility] Medication administered onsite potassium chloride SA (K-DUR,KLOR-CON) CR tablet 40 mEq [id number] [id number] 03/12/2021 11:00:00 AM EDT 40 meq Oral completed 40 mEq, Oral, Once, On Thu03/12/21 at 1100, For 1 dose [facility] Medication administered onsite sodium chloride 0.9% (NS) bolus 250 mL 10:00:00 AM EDT 250 mL Intravenous completed 250 mL, In travenous, Administer over 1 Hours, Once, On Thu03/12/21 at 1000, For 1 dose [facility] Medication administered onsite Acetaminophen 325 MG Oral Tablet acetaminophen (TYLENO L) 325 MG tablet 650 mg acetaminophen (TYLENOL) 325 MG tablet 650 mg 03/12/2021 06:44:38 AM EDT 650 mg Oral active 650 mg, Or al, Every 4 hours PRN, moderate pain (4-6), headaches, Starting on Thu03/12/21 at 0644
"Maximum dose of acetaminophen is 4,000 mg from all sources in 24 hours."
[facility] Medication administered onsite heparin (porcine) injection 5,000 Units [id number] 03/11/20 09:00:00 PM EDT 5000 U Subcutaneous active 5,000 Units , Subcutaneous, Every 12 hours (scheduled), First dose on Thu03/11/21 at 2100
If platelet count is less than 70,000 or hematocrit is less than 25, or if there is a 5 point decrease in hematocrit, do not give the dose and call physician/designee.
[facility] Medication administered onsite regadenoson (LEXISCAN) solution 0.4 mg [id number] 03/11/2021 09:0 0:00 PM EDT 0.4 mg Intravenous completed 0.4 mg, Intravenous, Once, On Thu03/11/21 at 2100, For 1 dose, Medical Record Administrator
No Caffeine, Theophylline, or Dipyridamole (Aggrenox) for 12 hours prior to dose. If patient has had any of these, contact MD immediately
[facility] Medication administered onsite Nitroglycerin 0.4 MG Sublingual Tablet n itroglycerin (NITROSTAT) SL tablet 0.4 mg nitroglycerin (NITROSTAT) SL tablet 0.4 mg 03/11/2021 08:21:48 P M EDT 0.4 mg Sublingual active 0.4 mg, S ublingual, Every 5 min PRN, chest pain, Starting on Thu03/11/21 at 2020
May administer up to 3 doses per episode.
[facility] Medication administered onsite sodium chloride 0.9% (NS) bolus 500 mL 02:20:00 PM EDT 500 mL Intravenous completed 500 mL, In travenous, Administer over 1 Hours, Once, On Thu03/11/21 at 1420, For 1 dose [facility] Medication administered onsite Acetaminophen 500 MG Oral Tablet acetaminophen (TYLENO L) tablet 500 mg acetaminophen (TYLENOL) tablet 500 mg 03/11/2021 10:45:00 AM EDT 50 0 mg Oral completed 500 mg, Oral, O nce, On Thu03/11/21 at 1045, For 1 dose
"Maximum dose of acetaminophen is 4,000 mg from all sources in 24 hours."
[facility] Medication administered onsite sodium chloride 0.9 % bolus 500 mL 02/28/2021 06:45:00 PM EDT 500 mL Intravenous completed 500 mL, Intravenous, Once, On Pallavi 02/28/21 at 1845, For 1 dose [facility] Medication administered onsite Ondansetron 4 MG Oral Tablet ondansetron (ZOFRAN) tabl et 4 mg ondansetron (ZOFRAN) tablet 4 mg 02/28/2021 10:19:18 AM EDT 4 mg Oral active 4 mg, Oral, Every 8 hours PRN, Nausea, Vomiting, Starting on Pallavi 02/28/21 at 1019, For 30 days [facility] Medication administered onsite POLYETHYLENE GLYCOL 3350 142 MG/ML Oral Solution Polyethylene Glycol 3350 17 GM Oral Packet (MIRALAX) Polyethylene Glycol 3350 17 GM Oral Packet (MIRALAX) 02/28/2021 12:00:00 AM EDT 17 g Oral active Take 1 packet by mouth Two Times Daily for 3 daysPlease substitute bottle for packets, if packets are unavailable. [facility] sennosides, [facility] 35.2 MG/ML Oral Solution Senna 176 MG/ 5ML Oral Syrup (SENOKOT) Senna 176 MG/5ML Oral Syrup (SENOKOT) 02/28/2021 12:00:00 AM EDT 10 m L Oral completed Take 10 mLs by mouth nightly [facility] Lidocaine 5 % External Patch (LIDODERM) [id number] 02/29/20 12:00:00 AM EDT 1 {patch} Transdermal completed Place 1 patch onto the skin daily 12 hours on 12 hours off [facility] lidocaine (LIDODERM) 5 % patch 1 patch [id number] 05:00:00 PM EDT 1 {patch} Transdermal active 1 patch, T ransdermal, Daily Standard, First dose on Thu02/27/21 at 1700, For 3 days
Apply to lower back on the right side 12 hours on - 12 hours off
[facility] Medication administered onsite Acetaminophen 325 MG [...] mg from all sources in 24 hours.
[facility] Medication administered onsite lidocaine (XYLOCAINE) 1 % injection 5 mL [id number] 02/27/2021 11:51:50 AM EDT 5 mL Subcutaneous active 5 m L, Subcutaneous, Once PRN, For MIDLINE Catheter insertion, Starting on Thu02/27/21 at 1151, For 30 days [facility] Medication administered onsite sodium chloride (preservative free) [...] Extended Dwell/Midline Peripheral Catheter.
[Order 3 End] [facility] Medication administered onsite ondansetron (ZOFRAN) injection 4 mg [id number] 02/27/2021 11:51:2 4 AM EDT 4 mg Intravenous aborted 4 mg, In travenous, Every 8 hours PRN, Nausea, Vomiting, Starting on Thu02/27/21 at 1151, For 30 days [facility] Medication administered onsite perflutren lipid microspheres (DEFINITY) injectable suspensi on 9.78 mg [id number] 02/27/2021 11:23:35 AM EDT 1.5 mL Intravenous active 9.78 mg (1.5 mL), Intravenous, Once PRN, Other, Echo imaging enhancement, Starting on Thu02/27/21 at 1123, For 72 hours [facility] Medication administered onsite POLYETHYLENE GLYCOL 3350 142 [...] to p otential increased risk for aspiration.
[facility] Medication administered onsite Acetaminophen 10 MG/ML Injectable Soluti on acetaminophen (OFIRMEV) infusion 1,000 mg acetaminophen (OFIRMEV) infusion 1,000 mg 02/27/2021 07:00:00 AM EDT 1000 mg Intravenous completed 1,000 mg , Intravenous, Administer over 15 Minutes, Once, On Thu02/27/21 at 0700, For 1 dose
Maximum daily dose of acetaminophen from all sources 3,000 mg daily.
[facility] Medication administered onsite Calcium Carbonate 500 MG Chewable Tablet calcium carbonate (TUMS) chewable tablet 1,000 mg calcium carbonate (TUMS) chewable tablet 1,000 mg 02/17 06:42:50 AM EDT 1000 mg Oral active 1,000 mg, Oral, Three Times Daily-PRN, Indigestion, Starting on Thu02/27/21 at 0642, For 30 days [facility] Medication administered onsite Bisacodyl 10 MG Rectal Suppository bisacodyl (DULCOLAX ) suppository 10 mg bisacodyl (DULCOLAX) suppository 10 mg 02/27/2021 04:12:57 AM EDT 10 mg Rectal active 10 mg, Rectal, Daily PRN, Constipation, Starting on Thu02/27/21 at 0412, For 30 days [facility] Medication administered onsite sennosides, [facility] 35.2 MG/ML Oral Solution senna (SENOKO T) syrup 10 mL senna (SENOKOT) syrup 10 mL 02/27/2021 02:00:00 AM EDT 10 mL Oral active 10 mL, Oral, Nightly, First dose on Thu02/27/21 at 0200, For 30 days [facility] Medication administered onsite Acetaminophen 10 MG/ML Injectable Soluti on acetaminophen (OFIRMEV) infusion 1,000 mg acetaminophen (OFIRMEV) infusion 1,000 mg 02/26/2021 11:15:00 PM EDT 1000 mg Intravenous completed 1,000 mg , Intravenous, Administer over 15 Minutes, Once, On Thu02/26/21 at 2315, For 1 dose
Maximum daily dose of acetaminophen from all sources 3,000 mg daily.
[facility] Medication administered onsite Potassium Chloride 10 MEQ Extended Relea se Oral Tablet Potassium Chloride (Klor- Con 10) 10 mEq Tablet Extended Release Potassium Chloride (Klor-Con 10) 10 mEq Tablet Extended Release 02/25/2021 11:04:24 PM EDT 10 MEQ active [facility] Furosemide 20 MG Oral Tablet Furosemide (Lasix) 20 mg Tablet Furosemide (Lasix) 20 mg Tablet 02/25/2021 11:04:24 PM EDT 10 MG active [facility] Amitriptyline Hydrochloride 10 MG Oral T ablet Amitriptyline HCl 10 MG Oral Tablet (ELAVIL) Amitriptyline HCl 10 MG Oral Tablet (ELAVIL) 12:00:00 AM EDT 30 mg Oral aborted Take 3 tablets b y mouth nightly [facility] Sulfamethoxazole 800 MG / Trimethoprim 1 60 MG Oral Tablet sulfamethoxazole- trimethoprim (BACTRIM DS) 800-160 MG per tablet 1 tablet sulfamethoxazole- trimethoprim (BACTRIM DS) 800-160 MG per tablet 1 tablet 10/09/2020 09:45:00 AM EDT 1 {tbl} Oral active [facility] Cyclobenzaprine hydrochloride 10 MG Oral Tablet Cyclobenzaprine HCl 10 MG Oral Tablet (FLEXERIL) Cyclobenzaprine HCl 10 MG Oral Tablet (FLEXERIL) 09/25 12:00:00 AM EST 10 mg Oral active Take 1 tablet by mouth Three times daily as needed for Muscle spasms for up to 5 days [facility] Amitriptyline Hydrochloride 10 MG Oral T ablet Amitriptyline HCl 10 MG Oral Tablet (ELAVIL) Amitriptyline HCl 10 MG Oral Tablet (ELAVIL) 12:00:00 AM EST 10 mg Oral active Take 1 t ablet by mouth nightly 1 po qhs. After one month increase to 2 po qhs and after another month increase to 3 po qhs [facility] Amoxicillin 875 MG / Clavulanate 125 MG Oral Tablet Amoxicillin-Pot Clavulanate 875-125 MG Oral Tablet (AUGMENTIN) Amoxicillin-Pot Clavulanate 875-125 MG O ral Tablet (AUGMENTIN) 09/21/2020 12:00:00 AM EST abor livia [facility] Ondansetron 4 MG Oral Tablet Ondansetron HCl 4 MG Oral Tablet (ZOFRAN) Ondansetron HCl 4 MG Oral Tablet (ZOFRAN) 09/06/2020 12:00:00 AM EST 8 mg Oral active Nausea Take 2 tablets by mouth every 8 (eight) hours as needed for Nausea for up to 7 days [facility] Nausea Furosemide 20 MG Oral Tablet Furosemide 20 MG Oral Tab let (LASIX) Furosemide 20 MG Oral Tablet (LASIX) 08/13/2020 12:00:00 AM EST 20 mg Oral aborted Take 1 tablet by mouth daily [facility] Albuterol Sulfate HFA 108 (90 Base) MCG/ ACT Inhalation Aerosol Solution (PROVENTIL HFA) [id number] 05/31/2020 12:00:00 AM EST 2 {puff} Inha lation aborted Mild intermittent reactive a irway disease without complicationUpper respiratory tract infection, unspecified type Inhale 2 puffs into the lungs every 4 (four) hours as needed for Wheezing or Shortness of Breath (cough)Use with spacer [facility] 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 Upper respiratory tract infection, unspe cified type doxycycline hyclate 100 MG Oral Capsule Doxycycline Hyclate 100 MG Oral Capsule (VIBRAMYCIN) Doxycycline Hyclate 100 MG Oral Capsule (VIBRAMYCIN) 1 12:00:00 AM EDT 100 mg Oral active Take 1 capsule by mouth Two Times Daily for 10 days [facility] Mexiletine Hydrochloride 150 MG Oral Cap gray Mexiletine HCl 150 MG Oral Capsule (MEXITIL) Mexiletine HCl 150 MG Oral Capsule (MEXITIL) 0 12:00:00 AM EDT 150 mg Oral aborted Take 1 capsule b y mouth Two Times Daily [facility] Loperamide Hydrochloride 2 MG Oral Capsu le Loperamide HCl 2 MG Oral Capsule (IMODIUM) Loperamide HCl 2 MG Oral Capsule (IMODIUM) 05/03/2020 12:00: 00 AM EDT aborted TAKE ONE CAPSULE BY MOUTH TWICE A DAY NEEDED FOR DIARREA FOR UP TO 10 DAYS [facility] pantoprazole 40 MG Delayed Release Oral Tablet Pantoprazole Sodium 40 MG Oral Tablet Delayed Release (PROTONIX) Pantoprazole Sodium 40 MG Oral Tablet De layed Release (PROTONIX) 05/02/2020 12:00:00 AM EDT 40 mg Oral active Take 1 tablet by mouth daily [facility] Loperamide Hydrochloride 2 MG Oral Table t Loperamide HCl 2 MG Oral Tablet (Imodium A-D) Loperamide HCl 2 MG Oral Tablet (Imodium A-D) 05/02/20 20 12:00:00 AM EDT 2 mg Oral active Take 1 t ablet by mouth Two times daily as needed for Diarrhea for up to 10 days [facility] Dicyclomine Hydrochloride 10 MG Oral Capsule Dicyclomi ne HCl 10 MG Oral Capsule Dicyclomine HCl 10 MG Oral Capsule 05/02/2020 12:00:00 AM EDT 10 mg Oral aborted Take 1 capsule by mouth Two time s daily as needed (abdomen cramps) [facility] Furosemide 20 MG Oral Tablet Furosemide (Lasix) 20 mg tablet Furosemide (Lasix) 20 mg tablet 04/24/2020 08:37:12 AM EDT TABLET 20 MG ORAL active [facility] Furosemide 20 MG Oral Tablet Furosemide (Lasix) 20 mg tablet Furosemide (Lasix) 20 mg tablet 04/24/2020 08:37:12 AM EDT TABLET 20 MG ORAL active [facility] Furosemide 20 MG Oral Tablet Furosemide (Lasix) 20 mg tablet Furosemide (Lasix) 20 mg tablet 04/24/2020 08:37:12 AM EDT TABLET 20 MG ORAL active [facility] Furosemide 20 MG Oral Tablet Furosemide (Lasix) 20 mg tablet Furosemide (Lasix) 20 mg tablet 04/24/2020 08:37:12 AM EDT TABLET 20 MG ORAL active [facility] Furosemide 20 MG Oral Tablet Furosemide (Lasix) 20 mg tablet Furosemide (Lasix) 20 mg tablet 04/24/2020 08:37:12 AM EDT TABLET 20 MG ORAL active [facility] Furosemide 20 MG Oral Tablet Furosemide (Lasix) 20 mg tablet Furosemide (Lasix) 20 mg tablet 04/24/2020 08:37:12 AM EDT TABLET 20 MG ORAL active [facility] Furosemide 20 MG Oral Tablet Furosemide (Lasix) 20 mg tablet Furosemide (Lasix) 20 mg tablet 04/24/2020 08:37:12 AM EDT TABLET 20 MG ORAL active [facility] Furosemide 20 MG Oral Tablet Furosemide (Lasix) 20 mg tablet Furosemide (Lasix) 20 mg tablet 04/24/2020 08:37:12 AM EDT TABLET 20 MG ORAL active [facility] Furosemide 20 MG Oral Tablet Furosemide (Lasix) 20 mg tablet Furosemide (Lasix) 20 mg tablet 04/24/2020 08:37:12 AM EDT TABLET 20 MG ORAL active [facility] Furosemide 20 MG Oral Tablet Furosemide (Lasix) 20 mg tablet Furosemide (Lasix) 20 mg tablet 04/24/2020 08:37:12 AM EDT TABLET 20 MG ORAL active [facility] Furosemide 20 MG Oral Tablet Furosemide (Lasix) 20 mg tablet Furosemide (Lasix) 20 mg tablet 04/24/2020 08:37:12 AM EDT TABLET 20 MG ORAL active [facility] Furosemide 20 MG Oral Tablet Furosemide (Lasix) 20 mg tablet Furosemide (Lasix) 20 mg tablet 04/24/2020 08:37:12 AM EDT TABLET 20 MG ORAL active [facility] Furosemide 20 MG Oral Tablet Furosemide (Lasix) 20 mg tablet Furosemide (Lasix) 20 mg tablet 04/24/2020 08:37:12 AM EDT TABLET 20 MG ORAL active [facility] Furosemide 20 MG Oral Tablet Furosemide (Lasix) 20 mg tablet Furosemide (Lasix) 20 mg tablet 04/24/2020 08:37:12 AM EDT TABLET 20 MG ORAL active [facility] pantoprazole 40 MG Delayed Release Oral Tablet Pantoprazole Sodium 40 MG Oral Tablet Delayed Release (PROTONIX) Pantoprazole Sodium 40 MG Oral Tablet De layed Release (PROTONIX) 04/04/2020 12:00:00 AM EDT 40 mg Oral aborted Take 1 tablet by mouth daily [facility] Sucralfate 100 MG/ML Oral Suspension suc ralfate (CARAFATE) 1 GM/10ML suspension 1 g sucralfate (CARAFATE) 1 GM/10ML suspension 1 g 03/23/2020 08:15: 00 PM EDT 1 g Oral active 1 g, Oral, Every 6 hours Standard, First dose (after last modification) on Thu03/23/20 at 2015, For 30 days [facility] Medication administered onsite Potassium Chloride 10 MEQ Extended Relea se Oral Tablet Potassium Chloride ER 10 MEQ Oral Tablet Extended Release (K-DUR) Potassium Chloride ER 10 MEQ Oral Tablet Extended Release (K-DUR) 02/24/2020 12:00:00 AM EDT 10 meq O ral completed Take 1 tablet by mouth daily [facility] Furosemide 20 MG Oral Tablet Furosemide 20 MG Oral Tab let (LASIX) Furosemide 20 MG Oral Tablet (LASIX) 02/24/2020 12:00:00 AM EDT 20 mg Oral active Take 1 tablet by mouth daily [facility] Levoxyl Unknown Dose 10/27/2012 04:26:03 PM EDT completed [facility] Levoxyl Unknown Dose 10/27/2012 04:26:03 PM EDT completed [facility] Levoxyl Unknown Dose 10/27/2012 04:26:03 PM EDT completed [facility] Ferrous Sulfate (Iron) 325 MG tablet 10/27/2012 04:26:03 P M EDT TABLET 325 MG ORAL completed [facility] Ferrous Sulfate (Iron) 325 MG tablet 10/27/2012 04:26:03 P M EDT TABLET 325 MG ORAL completed [facility] Ferrous Sulfate (Iron) 325 MG tablet 10/27/2012 04:26:03 P M EDT TABLET 325 MG ORAL completed [facility] Levoxyl Unknown Dose 10/27/2012 04:26:03 PM EDT completed [facility] Levoxyl Unknown Dose 10/27/2012 04:26:03 PM EDT completed [facility] Levoxyl Unknown Dose 10/27/2012 04:26:03 PM EDT completed [facility] Levoxyl Unknown Dose 10/27/2012 04:26:03 PM EDT completed [facility] Ferrous Sulfate (Iron) 325 MG tablet 10/27/2012 04:26:03 P M EDT TABLET 325 MG ORAL completed [facility] Ferrous Sulfate (Iron) 325 MG tablet 10/27/2012 04:26:03 P M EDT TABLET 325 MG ORAL completed [facility] Ferrous Sulfate (Iron) 325 MG tablet 10/27/2012 04:26:03 P M EDT TABLET 325 MG ORAL completed [facility] Levoxyl Unknown Dose 10/27/2012 04:26:03 PM EDT completed [facility] Levoxyl Unknown Dose 10/27/2012 04:26:03 PM EDT completed [facility] Ferrous Sulfate (Iron) 325 MG tablet 10/27/2012 04:26:03 P M EDT TABLET 325 MG ORAL completed [facility] Ferrous Sulfate (Iron) 325 MG tablet 10/27/2012 04:26:03 P M EDT TABLET 325 MG ORAL completed [facility] Ferrous Sulfate (Iron) 325 MG tablet 10/27/2012 04:26:03 P M EDT TABLET 325 MG ORAL completed [facility] Levoxyl Unknown Dose 10/27/2012 04:26:03 PM EDT completed [facility] Ferrous Sulfate (Iron) 325 MG tablet 10/27/2012 04:26:03 P M EDT TABLET 325 MG ORAL completed [facility] Ferrous Sulfate (Iron) 325 MG tablet 10/27/2012 04:26:03 P M EDT TABLET 325 MG ORAL completed [facility] Levoxyl Unknown Dose 10/27/2012 04:26:03 PM EDT completed [facility] Ferrous Sulfate (Iron) 325 MG tablet 10/27/2012 04:26:03 P M EDT TABLET 325 MG ORAL [facility] Ferrous Sulfate (Iron) 325 MG tablet 10/27/2012 04:26:03 P M EDT TABLET 325 MG ORAL [facility] Levoxyl Unknown Dose 10/27/2012 04:26:03 PM EDT [facility] Ferr[facility] Sulfate (Iron) 325 MG tablet 10/27/2012 04:26:03 P M EDT TABLET 325 MG ORAL [facility] Levoxyl Unknown Dose 10/27/2012 04:26:03 PM EDT [facility] Levoxyl Unknown Dose 10/27/2012 04:26:03 PM EDT completed [facility] Cholecalciferol (Vitamin D3) 08/04/2012 01:46:54 PM EST [place] PSULE [id number] UNIT ORAL [facility] Cholecalciferol (Vitamin D3) 08/04/2012 01:46:54 PM EST [place] PSULE 56709 UNIT ORAL [facility] Cholecalciferol (Vitamin D3) 08/04/2012 01:46:54 PM EST [place] PSULE [id number] UNIT ORAL [facility] Cholecalciferol (Vitamin D3) 08/04/2012 01:46:54 PM EST [place] PSULE [id number] UNIT ORAL [facility] Cholecalciferol (Vitamin D3) 08/04/2012 01:46:54 PM EST [place] PSULE 61768 UNIT ORAL [facility] Cholecalciferol (Vitamin D3) 08/04/2012 01:46:54 PM EST [place] PSULE 98109 UNIT ORAL [facility] Cholecalciferol (Vitamin D3) 08/04/2012 01:46:54 PM EST [place] PSULE 25092 UNIT ORAL [facility] Cholecalciferol (Vitamin D3) 08/04/2012 01:46:54 PM EST [place] PSULE 10922 UNIT ORAL [facility] Cholecalciferol (Vitamin D3) 08/04/2012 01:46:54 PM EST [place] PSULE 35097 UNIT ORAL [facility] Cholecalciferol (Vitamin D3) 08/04/2012 01:46:54 PM EST [place] PSULE 19300 UNIT ORAL [facility] Cholecalciferol (Vitamin D3) 08/04/2012 01:46:54 PM EST [place] PSULE 80774 UNIT ORAL [facility] Cholecalciferol (Vitamin D3) 08/04/2012 01:46:54 PM EST [place] PSULE 08202 UNIT ORAL [facility] Cholecalciferol (Vitamin D3) 08/04/2012 01:46:54 PM EST [place] PSULE 27353 UNIT [facility] Cholecalciferol (Vitamin D3) 08/04/2012 01:46:54 PM EST [place] PSULE 52100 UNIT ORAL [facility] potassium chloride SA (K-DUR,KLOR-CON) 20 MEQ tablet 27405-910-05 20 meq Oral aborted Take 20 mEq by mouth daily [facility] Ciprofloxacin 500 MG Oral Tablet ciprofloxacin 500 mg tablet ciprofloxacin 500 mg tablet completed ciprofloxaci n 500 MG Oral Tablet [place] ([facility]) Dicyclomine Hydrochloride 10 MG Oral Cap gray dicyclomine 10 mg capsule TAKE ONE CAPSULE BY MOUTH TWICE A DAY NEEDED FOR ABDOMINAL CRAMPS dicyclomine 10 mg capsule TAKE ONE CAPSULE BY MOUTH TWICE A DAY NEEDED FOR ABDOMINAL CRAMPS completed dicyclomine hy drochloride 10 MG Oral Capsule [place] ([facility]) Prednisone 50 MG Oral Tablet prednisone 50 mg tablet prednisone 50 mg tablet completed prednisone 50 MG Oral Tablet [place] ([facility]) Furosemide 20 MG Oral Tablet furosemide (LASIX) 20 MG tablet furosemide (LASIX) 20 MG tablet 20 mg Oral aborted Take 20 mg by mouth daily [facility] Amitriptyline Hydrochloride 25 MG Oral Tablet amitript yline 25 mg tablet amitriptyline 25 mg tablet completed [facility] C[facility] 500 MG Oral Tablet ciprofloxacin 500 mg tablet ciprofloxacin 500 mg tablet completed ciprofloxaci n 500 MG Oral Tablet [place] ([facility]) Ciprofloxacin 500 MG Oral Tablet ciprofloxacin 500 mg tablet ciprofloxacin 500 mg tablet completed ciprofloxaci n 500 MG Oral Tablet [facility]) Omeprazole 20 MG Delayed Release Oral Ca psule omeprazole 20 mg capsule,delayed release TAKE ONE CAPSULE BY MOUTH EVERY MORNING omeprazole 20 mg capsule,delayed release TAKE ONE CAPSULE BY MOUTH EVERY MORNING completed omeprazole 20 MG Delayed Release Oral Capsule [facility] ([facility]) doxycycline hyclate 100 MG Oral Capsule doxycycline hy clate 100 mg capsule doxycycline hyclate 100 mg capsule com pleted doxycycline hyclate 100 MG Oral Capsule [facility] ([facility]) Omeprazole 20 MG Delayed Release Oral Ca psule omeprazole 20 mg capsule,delayed release TAKE ONE CAPSULE BY MOUTH EVERY MORNING omeprazole 20 mg capsule,delayed release TAKE ONE CAPSULE BY MOUTH EVERY MORNING completed omeprazole 20 MG Delayed Release Oral Capsule [facility] ([facility]) Phenazopyridine hydrochloride 200 MG Oral Tablet phena zopyridine 200 mg tablet phenazopyridine 200 mg tablet complete d phenazopyridine hydrochloride 200 MG Oral Tablet [facility] ([facility]) Ciprofloxacin 500 MG Oral Tablet ciprofloxacin 500 mg tablet ciprofloxacin 500 mg tablet completed ciprofloxaci n 500 MG Oral Tablet [facility] ([facility]) doxycycline hyclate 100 MG Oral Capsule doxycycline hy clate 100 mg capsule doxycycline hyclate 100 mg capsule com pleted doxycycline hyclate 100 MG Oral Capsule [facility] ([facility]) Furosemide 40 MG Oral Tablet furosemide 40 mg tablet TAKE ONE TABLET BY MOUTH EVERY DAY furosemide 40 mg tablet TAKE ONE TABLET BY MOUTH EVERY DAY completed furosemide 40 MG Oral Tablet [facility] ([facility]) Levothyroxine Sodium 0.05 MG Oral Tablet levothyroxine 50 mcg tablet TAKE ONE TABLET BY MOUTH EVERY DAY levothyroxine 50 mcg tablet TAKE ONE TAB LET BY MOUTH EVERY DAY completed levothyroxin e sodium 0.05 MG Oral Tablet [facility] ([facility]) Amitriptyline Hydrochloride 25 MG Oral Tablet amitript yline 25 mg tablet amitriptyline 25 mg tablet completed amitriptyline hydrochloride 25 MG Oral Tablet [facility] ([facility]) Phenazopyridine hydrochloride 200 MG Oral Tablet phena zopyridine 200 mg tablet phenazopyridine 200 mg tablet complete d phenazopyridine hydrochloride 200 MG Oral Tablet [facility] ([facility]) Amitriptyline Hydrochloride 25 MG Oral Tablet amitript yline 25 mg tablet amitriptyline 25 mg tablet completed amitriptyline hydrochloride 25 MG Oral Tablet [facility] ([facility]) Levothyroxine Sodium 0.05 MG Oral Tablet levothyroxine 50 mcg tablet TAKE ONE TABLET BY MOUTH EVERY DAY levothyroxine 50 mcg tablet TAKE ONE TAB LET BY MOUTH EVERY DAY completed levothyroxin e sodium 0.05 MG Oral Tablet [facility] ([facility]) Prednisone 50 MG Oral Tablet prednisone 50 mg tablet prednisone 50 mg tablet completed prednisone 50 MG Oral Tablet [facility] ([facility]) Loperamide Hydrochloride 2 MG Oral Capsu le loperamide 2 mg capsule TAKE ONE CAPSULE BY MOUTH TWICE A DAY NEEDED FOR DIARREA FOR UP TO 10 DAYS loperamide 2 mg capsule TAKE ONE CAPSULE BY MOUTH TWICE A DAY NEEDED FOR DIARREA FOR UP TO 10 DAYS completed loperamide hydrochloride 2 MG Oral Capsule [place] ([facility]) Dexamethasone 0.001 MG/MG / Tobramycin 0 .003 MG/MG Ophthalmic Ointment [Tobradex] TobraDex 0.3 %-0.1 % eye ointment APPLY A SMALL AMOUNT ON EYELID TWO TIMES A DAY DIRECTED TobraDex 0.3 %-0.1 % eye ointment APPLY A SMALL AMOUNT ON EYELID TWO TIMES A DAY DIRECTED completed dexamethasone 0.001 MG/MG / tobramycin 0.003 MG/MG Ophthalmic Ointment [Tobradex] [facility] ([facility]) Loperamide Hydrochloride 2 MG Oral Capsu le loperamide 2 mg capsule TAKE ONE CAPSULE BY MOUTH TWICE A DAY NEEDED FOR DIARREA FOR UP TO 10 DAYS loperamide 2 mg capsule TAKE ONE CAPSULE BY MOUTH TWICE A DAY NEEDED FOR DIARREA FOR UP TO 10 DAYS completed loperamide hydrochloride 2 MG Oral Capsule [facility] ([facility]) Prednisone 20 MG Oral Tablet prednisone 20 mg tablet TAKE THREE TABLETS BY MOUTH EVERY DAY prednisone 20 mg tablet TAKE THREE TABLETS BY MOUTH EVERY DAY completed prednisone 20 MG Ora l Tablet [facility] ([facility]) Omeprazole 20 MG Delayed Release Oral Ca psule omeprazole 20 mg capsule,delayed release TAKE ONE CAPSULE BY MOUTH EVERY MORNING omeprazole 20 mg capsule,delayed release TAKE ONE CAPSULE BY MOUTH EVERY MORNING completed omeprazole 20 MG Delayed Release Oral Capsule [facility] ([facility]) doxycycline hyclate 100 MG Oral Capsule doxycycline hy clate 100 mg capsule doxycycline hyclate 100 mg capsule com pleted doxycycline hyclate 100 MG Oral Capsule [facility] ([facility]) Amoxicillin 500 MG Oral Capsule amoxicil hamida 500 mg capsule TAKE ONE CAPSULE BY MOUTH THREE TIMES A DAY amoxicillin 500 mg capsule TAKE ONE CAPS ULE BY MOUTH THREE TIMES A DAY completed amox icillin 500 MG Oral Capsule [facility] ([facility]) doxycycline hyclate 100 MG Oral Capsule doxycycline hy clate 100 mg capsule doxycycline hyclate 100 mg capsule com pleted doxycycline hyclate 100 MG Oral Capsule [facility] ([facility]) Methocarbamol 750 MG Oral Tablet methoca rbamol 750 mg tablet TAKE ONE TABLET BY MOUTH THREE TIMES A DAY methocarbamol 750 mg tablet TAKE ONE TAB LET BY MOUTH THREE TIMES A DAY completed meth ocarbamol 750 MG Oral Tablet [facility] ([facility]) Phenazopyridine hydrochloride 200 MG Oral Tablet phena zopyridine 200 mg tablet phenazopyridine 200 mg tablet complete d phenazopyridine hydrochloride 200 MG Oral Tablet [facility] ([facility]) NITROFURANTOIN, MACROCRYSTALS 25 MG / Ni trofurantoin, Monohydrate 75 MG Oral Capsule nitrofurantoin monohydrate/macrocrystals 100 mg capsule nitrofurantoin monohydrate/macrocrystals 100 mg capsule completed nitrofurantoin, macrocrystals 25 MG / nitrofurantoin, monohydrate 75 MG Oral Capsule [facility] ([facility]) Ondansetron 4 MG Disintegrating Oral Tab let ondansetron 4 mg disintegrating tablet DISSOLVE ONE TABLET ON TONGUE EVERY 6 TO 8 HOURS ondansetron 4 mg disintegrating tablet DISSOLVE ONE TABLET ON TONGUE EVERY 6 TO 8 HOURS completed ondansetron 4 MG Disinteg rating Oral Tablet [facility] ([facility]) NITROFURANTOIN, MACROCRYSTALS 25 MG / Ni trofurantoin, Monohydrate 75 MG Oral Capsule nitrofurantoin monohydrate/macrocrystals 100 mg capsule nitrofurantoin monohydrate/macrocrystals 100 mg capsule completed nitrofurantoin, macrocrystals 25 MG / nitrofurantoin, monohydrate 75 MG Oral Capsule [facility] ([facility]) Dicyclomine Hydrochloride 10 MG Oral Cap gray dicyclomine 10 mg capsule TAKE ONE CAPSULE BY MOUTH TWICE A DAY NEEDED FOR ABDOMINAL CRAMPS dicyclomine 10 mg capsule TAKE ONE CAPSULE BY MOUTH TWICE A DAY NEEDED FOR ABDOMINAL CRAMPS completed dicyclomine hy drochloride 10 MG Oral Capsule [facility] ([facility]) Furosemide 40 MG Oral Tablet furosemide 40 mg tablet TAKE ONE TABLET BY MOUTH EVERY DAY furosemide 40 mg tablet TAKE ONE TABLET BY MOUTH EVERY DAY completed furosemide 40 MG Oral Tablet [place] ([facility]) Amitriptyline Hydrochloride 10 MG Oral T ablet amitriptyline 10 mg tablet Take 1 tablet every day by oral route at bedtime for 30 days. amitriptyline 10 mg tablet Take 1 tablet every day by oral route at bedtime for 30 days. 1 completed amitriptyline hydrochloride 10 MG Oral Tablet [place] ([facility]) Amitriptyline Hydrochloride 25 MG Oral Tablet amitript yline 25 mg tablet amitriptyline 25 mg tablet completed amitriptyline hydrochloride 25 MG Oral Tablet [place] ([facility]) NITROFURANTOIN, MACROCRYSTALS 25 MG / Ni trofurantoin, Monohydrate 75 MG Oral Capsule nitrofurantoin monohydrate/macrocrystals 100 mg capsule nitrofurantoin monohydrate/macrocrystals 100 mg capsule completed nitrofurantoin, macrocrystals 25 MG / nitrofurantoin, monohydrate 75 MG Oral Capsule [place] ([facility]) Cyclobenzaprine hydrochloride 10 MG Oral Tablet cyclobenzaprine 10 mg tablet TAKE ONE TABLET BY MOUTH THREE TIMES A DAY NEEDED FOR MUSCLE SPASMS FOR UP TO 5 DAYS cyclobenzaprine 10 mg tablet TAKE ONE TA BLET BY MOUTH THREE TIMES A DAY NEEDED FOR MUSCLE SPASMS FOR UP TO 5 DAYS completed cyclobenzaprine hydrochloride 10 MG Oral Tablet [facility] ([facility]) Amoxicillin 500 MG Oral Capsule amoxicil hamida 500 mg capsule TAKE ONE CAPSULE BY MOUTH THREE TIMES A DAY amoxicillin 500 mg capsule TAKE ONE CAPS ULE BY MOUTH THREE TIMES A DAY completed amox icillin 500 MG Oral Capsule [place] ([facility]) Dicyclomine Hydrochloride 10 MG Oral Cap gray dicyclomine 10 mg capsule TAKE ONE CAPSULE BY MOUTH TWICE A DAY NEEDED FOR ABDOMINAL CRAMPS dicyclomine 10 mg capsule TAKE ONE CAPSULE BY MOUTH TWICE A DAY NEEDED FOR ABDOMINAL CRAMPS completed dicyclomine hy drochloride 10 MG Oral Capsule [place] ([facility]) Furosemide 40 MG Oral Tablet furosemide 40 mg tablet TAKE ONE TABLET BY MOUTH EVERY DAY furosemide 40 mg tablet TAKE ONE TABLET BY MOUTH EVERY DAY completed furosemide 40 MG Oral Tablet [facility] ([facility]) Prednisone 20 MG Oral Tablet prednisone 20 mg tablet TAKE THREE TABLETS BY MOUTH EVERY DAY prednisone 20 mg tablet TAKE THREE TABLETS BY MOUTH EVERY DAY completed prednisone 20 MG Ora l Tablet [facility] ([facility]) Ciprofloxacin 500 MG Oral Tablet ciprofloxacin 500 mg tablet ciprofloxacin 500 mg tablet completed ciprofloxaci n 500 MG Oral Tablet [facility] ([facility]) Dicyclomine Hydrochloride 10 MG Oral Cap gray dicyclomine 10 mg capsule TAKE ONE CAPSULE BY MOUTH TWICE A DAY NEEDED FOR ABDOMINAL CRAMPS dicyclomine 10 mg capsule TAKE ONE CAPSULE BY MOUTH TWICE A DAY NEEDED FOR ABDOMINAL CRAMPS completed dicyclomine hy drochloride 10 MG Oral Capsule [place] ([facility]) doxycycline hyclate 100 MG Oral Capsule doxycycline hy clate 100 mg capsule doxycycline hyclate 100 mg capsule com pleted doxycycline hyclate 100 MG Oral Capsule [facility] ([facility]) Amitriptyline Hydrochloride 25 MG Oral Tablet amitript yline 25 mg tablet amitriptyline 25 mg tablet completed amitriptyline hydrochloride 25 MG Oral Tablet [facility] ([facility]) Phenazopyridine hydrochloride 200 MG Oral Tablet phena zopyridine 200 mg tablet phenazopyridine 200 mg tablet complete d phenazopyridine hydrochloride 200 MG Oral Tablet [facility] ([facility]) Ondansetron 4 MG Oral Tablet ondansetron HCl 4 mg tablet TAKE 2 TABLETS BY MOUTH EVERY 8 HOURS NEEDED FOR NAUSEA FOR UP TO 7 DAYS ondansetron HCl 4 mg tablet TAKE 2 TABLETS BY MOUTH EVERY 8 HOURS NEEDED FOR NAUSEA FOR UP TO 7 DAYS completed ondansetron 4 MG Oral Tablet [facility] ([facility]) Omeprazole 20 MG Delayed Release Oral Ca psule omeprazole 20 mg capsule,delayed release TAKE ONE CAPSULE BY MOUTH EVERY MORNING omeprazole 20 mg capsule,delayed release TAKE ONE CAPSULE BY MOUTH EVERY MORNING completed omeprazole 20 MG Delayed Release Oral Capsule [place] ([facility]) Amoxicillin 500 MG Oral Capsule amoxicil hamida 500 mg capsule TAKE ONE CAPSULE BY MOUTH THREE TIMES A DAY amoxicillin 500 mg capsule TAKE ONE CAPS ULE BY MOUTH THREE TIMES A DAY completed amox icillin 500 MG Oral Capsule [place] ([facility]) Omeprazole 20 MG Delayed Release Oral Ca psule omeprazole 20 mg capsule,delayed release TAKE ONE CAPSULE BY MOUTH EVERY MORNING omeprazole 20 mg capsule,delayed release TAKE ONE CAPSULE BY MOUTH EVERY MORNING completed omeprazole 20 MG Delayed Release Oral Capsule [place] ([facility]) Levothyroxine Sodium 0.05 MG Oral Tablet levothyroxine 50 mcg tablet TAKE ONE TABLET BY MOUTH EVERY DAY levothyroxine 50 mcg tablet TAKE ONE TAB LET BY MOUTH EVERY DAY completed levothyroxin e sodium 0.05 MG Oral Tablet [place] ([facility]) Afluria Quad [id number] 60 mcg (15 mcg x 4)/0.5 mL intramuscular susp. [id number] completed Afluria Quad 2 -2020 60 mcg (15 mcg x 4)/0.5 mL intramuscular susp. [facility] ([facility]) pantoprazole 40 MG Delayed Release Oral Tablet pantoprazole 40 mg tablet,delayed release TAKE ONE TABLET BY MOUTH EVERY DAY pantoprazole 40 mg tablet,delayed release TAKE ONE TABLET BY MOUTH EVERY DAY completed pantoprazole 40 MG Delayed Release Oral Tablet [place] ([facility]) pantoprazole 40 MG Delayed Release Oral Tablet pantoprazole 40 mg tablet,delayed release TAKE ONE TABLET BY MOUTH EVERY DAY pantoprazole 40 mg tablet,delayed release TAKE ONE TABLET BY MOUTH EVERY DAY completed pantoprazole 40 MG Delayed Release Oral Tablet [place] ([facility]) Furosemide 40 MG Oral Tablet furosemide 40 mg tablet TAKE ONE TABLET BY MOUTH EVERY DAY furosemide 40 mg tablet TAKE ONE TABLET BY MOUTH EVERY DAY completed furosemide 40 MG Oral Tablet [place] ([facility]) Dexamethasone 1 MG/ML / Tobramycin 3 MG/ ML Ophthalmic Suspension tobramycin 0.3 %-dexamethasone 0.1 % eye drops,suspension INSTILL ONE DROP INTO THE LEFT EYE FOUR TIMES A DAY tobramycin 0.3 %-dexamethasone 0.1 % eye drops,suspension INSTILL ONE DROP INTO THE LEFT EYE FOUR TIMES A DAY completed dexamethasone 1 MG/ML / tobramycin 3 MG/ML Ophthalmic Suspension [place] ([facility]) Levothyroxine Sodium 0.05 MG Oral Tablet levothyroxine 50 mcg tablet TAKE ONE TABLET BY MOUTH EVERY DAY levothyroxine 50 mcg tablet TAKE ONE TAB LET BY MOUTH EVERY DAY completed levothyroxin e sodium 0.05 MG Oral Tablet [place] ([facility]) NITROFURANTOIN, MACROCRYSTALS 25 MG / Ni trofurantoin, Monohydrate 75 MG Oral Capsule nitrofurantoin monohydrate/macrocrystals 100 mg capsule nitrofurantoin monohydrate/macrocrystals 100 mg capsule completed nitrofurantoin, macrocrystals 25 MG / nitrofurantoin, monohydrate 75 MG Oral Capsule AZRA ([facility]) Methocarbamol 750 MG Oral Tablet methoca rbamol 750 mg tablet TAKE ONE TABLET BY MOUTH THREE TIMES A DAY methocarbamol 750 mg tablet TAKE ONE TAB LET BY MOUTH THREE TIMES A DAY completed meth ocarbamol 750 MG Oral Tablet [facility] ([facility]) Dicyclomine Hydrochloride 10 MG Oral Cap gray dicyclomine 10 mg capsule TAKE ONE CAPSULE BY MOUTH TWICE A DAY NEEDED FOR ABDOMINAL CRAMPS dicyclomine 10 mg capsule TAKE ONE CAPSULE BY MOUTH TWICE A DAY NEEDED FOR ABDOMINAL CRAMPS completed dicyclomine hy drochloride 10 MG Oral Capsule [facility] ([facility]) Dicyclomine Hydrochloride 10 MG Oral Cap gray dicyclomine 10 mg capsule TAKE ONE CAPSULE BY MOUTH TWICE A DAY NEEDED FOR ABDOMINAL CRAMPS dicyclomine 10 mg capsule TAKE ONE CAPSULE BY MOUTH TWICE A DAY NEEDED FOR ABDOMINAL CRAMPS completed dicyclomine hy drochloride 10 MG Oral Capsule [place] ([facility]) Methocarbamol 750 MG Oral Tablet methoca rbamol 750 mg tablet TAKE ONE TABLET BY MOUTH THREE TIMES A DAY methocarbamol 750 mg tablet TAKE ONE TAB LET BY MOUTH THREE TIMES A DAY completed meth ocarbamol 750 MG Oral Tablet [facility] ([facility]) Furosemide 40 MG Oral Tablet furosemide 40 mg tablet TAKE ONE TABLET BY MOUTH EVERY DAY furosemide 40 mg tablet TAKE ONE TABLET BY MOUTH EVERY DAY completed furosemide 40 MG Oral Tablet [place] ([facility]) doxycycline hyclate 100 MG Oral Capsule doxycycline hy clate 100 mg capsule doxycycline hyclate 100 mg capsule com pleted doxycycline hyclate 100 MG Oral Capsule [facility] ([facility]) Phenazopyridine hydrochloride 200 MG Oral Tablet phena zopyridine 200 mg tablet phenazopyridine 200 mg tablet complete d phenazopyridine hydrochloride 200 MG Oral Tablet AZ[facility] ([facility]) Levothyroxine Sodium 0.05 MG Oral Tablet levothyroxine 50 mcg tablet TAKE ONE TABLET BY MOUTH EVERY DAY levothyroxine 50 mcg tablet TAKE ONE TAB LET BY MOUTH EVERY DAY completed levothyroxin e sodium 0.05 MG Oral Tablet [place] ([facility]) Amoxicillin 500 MG Oral Capsule amoxicil hamida 500 mg capsule TAKE ONE CAPSULE BY MOUTH THREE TIMES A DAY amoxicillin 500 mg capsule TAKE ONE CAPS ULE BY MOUTH THREE TIMES A DAY completed amox icillin 500 MG Oral Capsule [place] ([facility]) Ondansetron 4 MG Disintegrating Oral Tab let ondansetron 4 mg disintegrating tablet DISSOLVE ONE TABLET ON TONGUE EVERY 6 TO 8 HOURS ondansetron 4 mg disintegrating tablet DISSOLVE ONE TABLET ON TONGUE EVERY 6 TO 8 HOURS completed ondansetron 4 MG Disinteg rating Oral Tablet [place] ([facility]) Dexamethasone 0.001 MG/MG / Tobramycin 0 .003 MG/MG Ophthalmic Ointment [Tobradex] TobraDex 0.3 %-0.1 % eye ointment APPLY A SMALL AMOUNT ON EYELID TWO TIMES A DAY DIRECTED TobraDex 0.3 %-0.1 % eye ointment APPLY A SMALL AMOUNT ON EYELID TWO TIMES A DAY DIRECTED completed dexamethasone 0.001 MG/MG / tobramycin 0.003 MG/MG Ophthalmic Ointment [Tobradex] [place] ([facility]) Amoxicillin 875 MG / Clavulanate 125 MG Oral Tablet amoxicillin 875 mg-potassium clavulanate 125 mg tablet TAKE ONE TABLET BY MOUTH TWO TIMES PER DAY FOR 10 DAYS amoxicillin 875 mg-potassium clavulanate 125 mg tablet TAKE ONE TABLET BY MOUTH TWO TIMES PER DAY FOR 10 DAYS co mpleted amoxicillin 875 MG / clavulanate 125 MG Oral Tablet [facility] ([facility]) NITROFURANTOIN, MACROCRYSTALS 25 MG / Ni trofurantoin, Monohydrate 75 MG Oral Capsule nitrofurantoin monohydrate/macrocrystals 100 mg capsule nitrofurantoin monohydrate/macrocrystals 100 mg capsule completed nitrofurantoin, macrocrystals 25 MG / nitrofurantoin, monohydrate 75 MG Oral Capsule [place] ([facility]) Loperamide Hydrochloride 2 MG Oral Capsu le loperamide 2 mg capsule TAKE ONE CAPSULE BY MOUTH TWICE A DAY NEEDED FOR DIARREA FOR UP TO 10 DAYS loperamide 2 mg capsule TAKE ONE CAPSULE BY MOUTH TWICE A DAY NEEDED FOR DIARREA FOR UP TO 10 DAYS completed loperamide hydrochloride 2 MG Oral Capsule [place] ([facility]) Amoxicillin 875 MG / Clavulanate 125 MG Oral Tablet amoxicillin 875 mg-potassium clavulanate 125 mg tablet TAKE ONE TABLET BY MOUTH TWO TIMES PER DAY FOR 10 DAYS amoxicillin 875 mg-potassium clavulanate 125 mg tablet TAKE ONE TABLET BY MOUTH TWO TIMES PER DAY FOR 10 DAYS co mpleted amoxicillin 875 MG / clavulanate 125 MG Oral Tablet [place] ([facility]) Levothyroxine Sodium 0.05 MG Oral Tablet levothyroxine 50 mcg tablet TAKE ONE TABLET BY MOUTH EVERY DAY levothyroxine 50 mcg tablet TAKE ONE TAB LET BY MOUTH EVERY DAY completed levothyroxin e sodium 0.05 MG Oral Tablet [place] ([facility]) Ciprofloxacin 500 MG Oral Tablet ciprofloxacin 500 mg tablet ciprofloxacin 500 mg tablet completed ciprofloxaci n 500 MG Oral Tablet [place] ([facility]) Ciprofloxacin 500 MG Oral Tablet ciprofloxacin 500 mg tablet ciprofloxacin 500 mg tablet completed ciprofloxaci n 500 MG Oral Tablet [place] ([facility]) Omeprazole 20 MG Delayed Release Oral Ca psule omeprazole 20 mg capsule,delayed release TAKE ONE CAPSULE BY MOUTH EVERY MORNING omeprazole 20 mg capsule,delayed release TAKE ONE CAPSULE BY MOUTH EVERY MORNING completed omeprazole 20 MG Delayed Release Oral Capsule [place] ([facility]) pantoprazole 40 MG Delayed Release Oral Tablet pantoprazole 40 mg tablet,delayed release TAKE ONE TABLET BY MOUTH EVERY DAY pantoprazole 40 mg tablet,delayed release TAKE ONE TABLET BY MOUTH EVERY DAY completed pantoprazole 40 MG Delayed Release Oral Tablet [place] ([facility]) Phenazopyridine hydrochloride 200 MG Oral Tablet phena zopyridine 200 mg tablet phenazopyridine 200 mg tablet complete d phenazopyridine hydrochloride 200 MG Oral Tablet [place] ([facility]) Dexamethasone 0.001 MG/MG / Tobramycin 0 .003 MG/MG Ophthalmic Ointment [Tobradex] TobraDex 0.3 %-0.1 % eye ointment APPLY A SMALL AMOUNT ON EYELID TWO TIMES A DAY DIRECTED TobraDex 0.3 %-0.1 % eye ointment APPLY A SMALL AMOUNT ON EYELID TWO TIMES A DAY DIRECTED completed dexamethasone 0.001 MG/MG / tobramycin 0.003 MG/MG Ophthalmic Ointment [Tobradex] [place] ([facility]) Omeprazole 20 MG Delayed Release Oral Ca psule omeprazole 20 mg capsule,delayed release TAKE ONE CAPSULE BY MOUTH EVERY MORNING omeprazole 20 mg capsule,delayed release TAKE ONE CAPSULE BY MOUTH EVERY MORNING completed omeprazole 20 MG Delayed Release Oral Capsule [place] ([facility]) Phenazopyridine hydrochloride 200 MG Oral Tablet phena zopyridine 200 mg tablet phenazopyridine 200 mg tablet complete d phenazopyridine hydrochloride 200 MG Oral Tablet [place] ([facility]) pantoprazole 40 MG Delayed Release Oral Tablet pantoprazole 40 mg tablet,delayed release TAKE ONE TABLET BY MOUTH EVERY DAY pantoprazole 40 mg tablet,delayed release TAKE ONE TABLET BY MOUTH EVERY DAY completed pantoprazole 40 MG Delayed Release Oral Tablet [place] ([facility]) Loperamide Hydrochloride 2 MG Oral Capsu le loperamide 2 mg capsule TAKE ONE CAPSULE BY MOUTH TWICE A DAY NEEDED FOR DIARREA FOR UP TO 10 DAYS loperamide 2 mg capsule TAKE ONE CAPSULE BY MOUTH TWICE A DAY NEEDED FOR DIARREA FOR UP TO 10 DAYS completed loperamide hydrochloride 2 MG Oral Capsule [place] ([facility]) doxycycline hyclate 100 MG Oral Capsule doxycycline hy clate 100 mg capsule doxycycline hyclate 100 mg capsule com pleted doxycycline hyclate 100 MG Oral Capsule [place] ([facility]) Amoxicillin 500 MG Oral Capsule amoxicil hamida 500 mg capsule TAKE ONE CAPSULE BY MOUTH THREE TIMES A DAY amoxicillin 500 mg capsule TAKE ONE CAPS ULE BY MOUTH THREE TIMES A DAY completed amox icillin 500 MG Oral Capsule [place] ([facility]) Loperamide Hydrochloride 2 MG Oral Capsu le loperamide 2 mg capsule TAKE ONE CAPSULE BY MOUTH TWICE A DAY NEEDED FOR DIARREA FOR UP TO 10 DAYS loperamide 2 mg capsule TAKE ONE CAPSULE BY MOUTH TWICE A DAY NEEDED FOR DIARREA FOR UP TO 10 DAYS completed loperamide hydrochloride 2 MG Oral Capsule [facility]) Sulfamethoxazole 800 MG / Trimethoprim 1 60 MG Oral Tablet sulfamethoxazole 800 mg-trimethoprim 160 mg tablet sulfamethoxazole 800 mg-trimethoprim 160 mg tablet completed sulfame thoxazole 800 MG / trimethoprim 160 MG Oral Tablet [place] ([facility]) Dexamethasone 0.001 MG/MG / Tobramycin 0 .003 MG/MG Ophthalmic Ointment [Tobradex] TobraDex 0.3 %-0.1 % eye ointment APPLY A SMALL AMOUNT ON EYELID TWO TIMES A DAY DIRECTED TobraDex 0.3 %-0.1 % eye ointment APPLY A SMALL AMOUNT ON EYELID TWO TIMES A DAY DIRECTED completed dexamethasone 0.001 MG/MG / tobramycin 0.003 MG/MG Ophthalmic Ointment [Tobradex] [place] ([facility]) NITROFURANTOIN, MACROCRYSTALS 25 MG / Ni trofurantoin, Monohydrate 75 MG Oral Capsule nitrofurantoin monohydrate/macrocrystals 100 mg capsule nitrofurantoin monohydrate/macrocrystals 100 mg capsule completed nitrofurantoin, macrocrystals 25 MG / nitrofurantoin, monohydrate 75 MG Oral Capsule [place] ([facility]) Afluria Quad 60 mcg (15 mcg x 4)/0.5 mL intramuscular susp. [id number] completed influenza A vi quoc A/[place] (H3N2) antigen 0.03 MG/ML / influenza A virus A/ (H1N1) antigen 0.03 MG/ML / influenza B virus B/[facility] antigen 0.03 MG/ML / influenza B virus B/[place] antigen 0.03 MG/ML Injectable Suspension [Afluria Quadrivalent ] [facility] ([facility]) Loperamide Hydrochloride 2 MG Oral Capsu le loperamide 2 mg capsule TAKE ONE CAPSULE BY MOUTH TWICE A DAY NEEDED FOR DIARREA FOR UP TO 10 DAYS loperamide 2 mg capsule TAKE ONE CAPSULE BY MOUTH TWICE A DAY NEEDED FOR DIARREA FOR UP TO 10 DAYS completed loperamide hydrochloride 2 MG Oral Capsule [place] ([facility]) Levothyroxine Sodium 0.05 MG Oral Tablet levothyroxine 50 mcg tablet TAKE ONE TABLET BY MOUTH EVERY DAY levothyroxine 50 mcg tablet TAKE ONE TAB LET BY MOUTH EVERY DAY completed levothyroxin e sodium 0.05 MG Oral Tablet [facility] ([facility]) pantoprazole 40 MG Delayed Release Oral Tablet pantoprazole 40 mg tablet,delayed release TAKE ONE TABLET BY MOUTH EVERY DAY pantoprazole 40 mg tablet,delayed release TAKE ONE TABLET BY MOUTH EVERY DAY completed pantoprazole 40 MG Delayed Release Oral Tablet [place] ([facility]) Amitriptyline Hydrochloride 25 MG Oral Tablet amitript yline 25 mg tablet amitriptyline 25 mg tablet completed amitriptyline hydrochloride 25 MG Oral Tablet [place] ([facility]) Ondansetron 4 MG Oral Tablet ondansetron HCl 4 mg tablet TAKE 2 TABLETS BY MOUTH EVERY 8 HOURS NEEDED FOR NAUSEA FOR UP TO 7 DAYS ondansetron HCl 4 mg tablet TAKE 2 TABLETS BY MOUTH EVERY 8 HOURS NEEDED FOR NAUSEA FOR UP TO 7 DAYS completed ondansetron 4 MG Oral Tablet [place] ([facility]) Ondansetron 4 MG Disintegrating Oral Tab let ondansetron 4 mg disintegrating tablet DISSOLVE ONE TABLET ON TONGUE EVERY 6 TO 8 HOURS ondansetron 4 mg disintegrating tablet DISSOLVE ONE TABLET ON TONGUE EVERY 6 TO 8 HOURS completed ondansetron 4 MG Disinteg rating Oral Tablet [place] ([facility]) Amoxicillin 875 MG / Clavulanate 125 MG Oral Tablet amoxicillin 875 mg-potassium clavulanate 125 mg tablet TAKE ONE TABLET BY MOUTH TWO TIMES PER DAY FOR 10 DAYS amoxicillin 875 mg-potassium clavulanate 125 mg tablet TAKE ONE TABLET BY MOUTH TWO TIMES PER DAY FOR 10 DAYS complete d amoxicillin 875 MG / clavulanate 125 MG Oral Tablet [place] ([facility]) Amoxicillin 500 MG Oral Capsule amoxicil ham[place] 500 mg capsule TAKE ONE CAPSULE BY MOUTH THREE TIMES A DAY amoxicillin 500 mg capsule TAKE ONE CAPS ULE BY MOUTH THREE TIMES A DAY completed amox icillin 500 MG Oral Capsule [place] ([facility]) Ciprofloxacin 500 MG Oral Tablet ciprofloxacin 500 mg tablet ciprofloxacin 500 mg tablet completed ciprofloxaci n 500 MG Oral Tablet [place] ([facility]) Ondansetron 4 MG Disintegrating Oral Tab let ondansetron 4 mg disintegrating tablet DISSOLVE ONE TABLET ON TONGUE EVERY 6 TO 8 HOURS ondansetron 4 mg disintegrating tablet DISSOLVE ONE TABLET ON TONGUE EVERY 6 TO 8 HOURS completed ondansetron 4 MG Disinteg rating Oral Tablet [place] ([facility]) Ondansetron 4 MG Disintegrating Oral Tab let ondansetron 4 mg disintegrating tablet DISSOLVE ONE TABLET ON TONGUE EVERY 6 TO 8 HOURS ondansetron 4 mg disintegrating tablet DISSOLVE ONE TABLET ON TONGUE EVERY 6 TO 8 HOURS completed ondansetron 4 MG Disinteg rating Oral Tablet [place] ([facility]) POLYETHYLENE GLYCOL 3350 142 MG/ML Oral Solution polyethylene glycol 3350 17 gram/dose oral powder polyethylene glycol 3350 17 gram/dose oral powder completed polyethylene glycol 3350 74566 MG Powder for Oral Solution [facility] ([facility]) Dicyclomine Hydrochloride 10 MG Oral Cap gray dicyclomine 10 mg capsule TAKE ONE CAPSULE BY MOUTH TWICE A DAY NEEDED FOR ABDOMINAL CRAMPS dicyclomine 10 mg capsule TAKE ONE CAPSULE BY MOUTH TWICE A DAY NEEDED FOR ABDOMINAL CRAMPS completed dicyclomine hy drochloride 10 MG Oral Capsule [place] ([facility]) Omeprazole 20 MG Delayed Release Oral Ca psule omeprazole 20 mg capsule,delayed release TAKE ONE CAPSULE BY MOUTH EVERY MORNING omeprazole 20 mg capsule,delayed release TAKE ONE CAPSULE BY MOUTH EVERY MORNING completed omeprazole 20 MG Delayed Release Oral Capsule [place] ([facility]) pantoprazole 40 MG Delayed Release Oral Tablet pantoprazole 40 mg tablet,delayed release TAKE ONE TABLET BY MOUTH EVERY DAY pantoprazole 40 mg tablet,delayed release TAKE ONE TABLET BY MOUTH EVERY DAY completed pantoprazole 40 MG Delayed Release Oral Tablet [place] ([facility]) Furosemide 40 MG Oral Tablet furosemide 40 mg tablet TAKE ONE TABLET BY MOUTH EVERY DAY furosemide 40 mg tablet TAKE ONE TABLET BY MOUTH EVERY DAY completed furosemide 40 MG Oral Tablet [facility] ([facility]) Ondansetron 4 MG Disintegrating Oral Tab let ondansetron 4 mg disintegrating tablet DISSOLVE ONE TABLET ON TONGUE EVERY 6 TO 8 HOURS ondansetron 4 mg disintegrating tablet DISSOLVE ONE TABLET ON TONGUE EVERY 6 TO 8 HOURS completed ondansetron 4 MG Disinteg rating Oral Tablet [facility] ([facility]) Amitriptyline Hydrochloride 10 MG Oral T ablet amitriptyline 10 mg tablet Take 1 tablet every day by oral route at bedtime for 30 days. amitriptyline 10 mg tablet Take 1 tablet every day by oral route at bedtime for 30 days. 1 completed amitriptyline hydrochloride 10 MG Oral Tablet [facility] ([facility]) Furosemide 40 MG Oral Tablet furosemide 40 mg tablet TAKE ONE TABLET BY MOUTH EVERY DAY furosemide 40 mg tablet TAKE ONE TABLET BY MOUTH EVERY DAY completed furosemide 40 MG Oral Tablet [facility] ([facility]) Amoxicillin 500 MG Oral Capsule amoxicil [place] 500 mg capsule TAKE ONE CAPSULE BY MOUTH THREE TIMES A DAY amoxicillin 500 mg capsule TAKE ONE CAPS ULE BY MOUTH THREE TIMES A DAY completed amox icillin 500 MG Oral Capsule [place] ([facility]) Dexamethasone 1 MG/ML / Tobramycin 3 MG/ ML Ophthalmic Suspension Tobramycin- Dexamethasone 0.3-0.1 % Ophthalmic Suspension (TOBRADEX) Tobramycin- Dexamethasone 0.3-0.1 % Ophthalmic Suspension (TOBRADEX) aborted tobramycin 0.3 %-dexamethasone 0.1 % eye drops,[facility] Levothyroxine Sodium 0.05 MG Oral Tablet levothyroxine 50 mcg tablet TAKE ONE TABLET BY MOUTH EVERY DAY levothyroxine 50 mcg tablet TAKE ONE TAB LET BY MOUTH EVERY DAY completed levothyroxin e sodium 0.05 MG Oral Tablet [place] ([facility]) Dexamethasone 0.001 MG/MG / Tobramycin 0 .003 MG/MG Ophthalmic Ointment [Tobradex] TobraDex 0.3 %-0.1 % eye ointment APPLY A SMALL AMOUNT ON EYELID TWO TIMES A DAY DIRECTED TobraDex 0.3 %-0.1 % eye ointment APPLY A SMALL AMOUNT ON EYELID TWO TIMES A DAY DIRECTED completed dexamethasone 0.001 MG/MG / tobramycin 0.003 MG/MG Ophthalmic Ointment [Tobradex] [place] ([facility]) Levothyroxine Sodium 0.05 MG Oral Tablet levothyroxine 50 mcg tablet TAKE ONE TABLET BY MOUTH EVERY DAY levothyroxine 50 mcg tablet TAKE ONE TAB LET BY MOUTH EVERY DAY completed levothyroxin e sodium 0.05 MG Oral Tablet [place] ([facility]) Prednisone 20 MG Oral Tablet prednisone 20 mg tablet TAKE THREE TABLETS BY MOUTH EVERY DAY prednisone 20 mg tablet TAKE THREE TABLETS BY MOUTH EVERY DAY completed prednisone 20 MG Ora l Tablet [facility]) Amoxicillin 500 MG Oral Capsule amoxicil [place] 500 mg capsule TAKE ONE CAPSULE BY MOUTH THREE TIMES A DAY amoxicillin 500 mg capsule TAKE ONE CAPS ULE BY MOUTH THREE TIMES A DAY completed amox icillin 500 MG Oral Capsule [place] ([facility]) Dexamethasone 1 MG/ML / Tobramycin 3 MG/ ML Ophthalmic Suspension tobramycin 0.3 %-dexamethasone 0.1 % eye drops,suspension INSTILL ONE DROP INTO THE LEFT EYE FOUR TIMES A DAY tobramycin 0.3 %-dexamethasone 0.1 % eye drops,suspension INSTILL ONE DROP INTO THE LEFT EYE FOUR TIMES A DAY completed dexamethasone 1 MG/ML / tobramycin 3 MG/ML Ophthalmic Suspension [place] ([facility]) NITROFURANTOIN, MACROCRYSTALS 25 MG / Ni trofurantoin, Monohydrate 75 MG Oral Capsule nitrofurantoin monohydrate/macrocrystals 100 mg capsule nitrofurantoin monohydrate/macrocrystals 100 mg capsule completed nitrofurantoin, macrocrystals 25 MG / nitrofurantoin, monohydrate 75 MG Oral Capsule [place] ([facility]) Dexamethasone 0.001 MG/MG / Tobramycin 0 .003 MG/MG Ophthalmic Ointment [Tobradex] TobraDex 0.3 %-0.1 % eye ointment APPLY A SMALL AMOUNT ON EYELID TWO TIMES A DAY DIRECTED TobraDex 0.3 %-0.1 % eye ointment APPLY A SMALL AMOUNT ON EYELID TWO TIMES A DAY DIRECTED completed dexamethasone 0.001 MG/MG / tobramycin 0.003 MG/MG Ophthalmic Ointment [Tobradex] [place] ([facility]) Methocarbamol 750 MG Oral Tablet methoca rbamol 750 mg tablet TAKE ONE TABLET BY MOUTH THREE TIMES A DAY methocarbamol 750 mg tablet TAKE ONE TAB LET BY MOUTH THREE TIMES A DAY completed meth ocarbamol 750 MG Oral Tablet [place] ([facility]) doxycycline hyclate 100 MG Oral Capsule doxycycline hy clate 100 mg capsule doxycycline hyclate 100 mg capsule com pleted doxycycline hyclate 100 MG Oral Capsule [facility]) Cyclobenzaprine hydrochloride 10 MG Oral Tablet cyclobenzaprine 10 mg tablet TAKE ONE TABLET BY MOUTH THREE TIMES A DAY NEEDED FOR MUSCLE SPASMS FOR UP TO 5 DAYS cyclobenzaprine 10 mg tablet TAKE ONE TA BLET BY MOUTH THREE TIMES A DAY NEEDED FOR MUSCLE SPASMS FOR UP TO 5 DAYS completed cyclobenzaprine hydrochloride 10 MG Oral Tablet [facility] ([facility]) Dicyclomine Hydrochloride 10 MG Oral Cap gray dicyclomine 10 mg capsule TAKE ONE CAPSULE BY MOUTH TWICE A DAY NEEDED FOR ABDOMINAL CRAMPS dicyclomine 10 mg capsule TAKE ONE CAPSULE BY MOUTH TWICE A DAY NEEDED FOR ABDOMINAL CRAMPS completed dicyclomine hy drochloride 10 MG Oral Capsule [place] ([facility]) pantoprazole 40 MG Delayed Release Oral Tablet pantoprazole 40 mg tablet,delayed release TAKE ONE TABLET BY MOUTH EVERY DAY pantoprazole 40 mg tablet,delayed release TAKE ONE TABLET BY MOUTH EVERY DAY completed pantoprazole 40 MG Delayed Release Oral Tablet [place] ([facility]) Amitriptyline Hydrochloride 25 MG Oral Tablet amitript yline 25 mg tablet amitriptyline 25 mg tablet completed amitriptyline hydrochloride 25 MG Oral Tablet [place] ([facility]) Dexamethasone 0.001 MG/MG / Tobramycin 0 .003 MG/MG Ophthalmic Ointment [Tobradex] TobraDex 0.3 %-0.1 % eye ointment APPLY A SMALL AMOUNT ON EYELID TWO TIMES A DAY DIRECTED TobraDex 0.3 %-0.1 % eye ointment APPLY A SMALL AMOUNT ON EYELID TWO TIMES A DAY DIRECTED completed dexamethasone 0.001 MG/MG / tobramycin 0.003 MG/MG Ophthalmic Ointment [Tobradex] [place] ([facility]) Amitriptyline Hydrochloride 25 MG Oral Tablet amitript yline 25 mg tablet amitriptyline 25 mg tablet completed amitriptyline hydrochloride 25 MG Oral Tablet [place] ([facility]) Dicyclomine Hydrochloride 10 MG Oral Cap gray dicyclomine 10 mg capsule TAKE ONE CAPSULE BY MOUTH TWICE A DAY NEEDED FOR ABDOMINAL CRAMPS dicyclomine 10 mg capsule TAKE ONE CAPSULE BY MOUTH TWICE A DAY NEEDED FOR ABDOMINAL CRAMPS completed dicyclomine hy drochloride 10 MG Oral Capsule [place] ([facility]) Amoxicillin 500 MG Oral Capsule amoxicil hamida 500 mg capsule TAKE ONE CAPSULE BY MOUTH THREE TIMES A DAY amoxicillin 500 mg capsule TAKE ONE CAPS ULE BY MOUTH THREE TIMES A DAY completed amox icillin 500 MG Oral Capsule [place] ([facility]) Ondansetron 4 MG Disintegrating Oral Tab let ondansetron 4 mg disintegrating tablet DISSOLVE ONE TABLET ON TONGUE EVERY 6 TO 8 HOURS ondansetron 4 mg disintegrating tablet DISSOLVE ONE TABLET ON TONGUE EVERY 6 TO 8 HOURS completed ondansetron 4 MG Disinteg rating Oral Tablet [place] ([facility]) Loperamide Hydrochloride 2 MG Oral Capsu le loperamide 2 mg capsule TAKE ONE CAPSULE BY MOUTH TWICE A DAY NEEDED FOR DIARREA FOR UP TO 10 DAYS loperamide 2 mg capsule TAKE ONE CAPSULE BY MOUTH TWICE A DAY NEEDED FOR DIARREA FOR UP TO 10 DAYS completed loperamide hydrochloride 2 MG Oral Capsule [place] ([facility]) NITROFURANTOIN, MACROCRYSTALS 25 MG / Ni trofurantoin, Monohydrate 75 MG Oral Capsule nitrofurantoin monohydrate/macrocrystals 100 mg capsule nitrofurantoin monohydrate/macrocrystals 100 mg capsule completed nitrofurantoin, macrocrystals 25 MG / nitrofurantoin, monohydrate 75 MG Oral Capsule [place] ([facility]) Cyclobenzaprine hydrochloride 10 MG Oral Tablet cyclobenzaprine 10 mg tablet TAKE ONE TABLET BY MOUTH THREE TIMES A DAY NEEDED FOR MUSCLE SPASMS FOR UP TO 5 DAYS cyclobenzaprine 10 mg tablet TAKE ONE TA BLET BY MOUTH THREE TIMES A DAY NEEDED FOR MUSCLE SPASMS FOR UP TO 5 DAYS completed cyclobenzaprine hydrochloride 10 MG Oral Tablet [place] ([facility]) Cyclobenzaprine hydrochloride 10 MG Oral Tablet cyclobenzaprine 10 mg tablet TAKE ONE TABLET BY MOUTH THREE TIMES A DAY NEEDED FOR MUSCLE SPASMS FOR UP TO 5 DAYS cyclobenzaprine 10 mg tablet TAKE ONE TA BLET BY MOUTH THREE TIMES A DAY NEEDED FOR MUSCLE SPASMS FOR UP TO 5 DAYS completed cyclobenzaprine hydrochloride 10 MG Oral Tablet [place] ([facility]) Ondansetron 8 MG Oral Tablet ondansetron HCl 8 mg tabl et ondansetron HCl 8 mg tablet completed ondansetron 8 M G Oral Tablet [place] ([facility]) Prednisone 50 MG Oral Tablet prednisone 50 mg tablet prednisone 50 mg tablet completed prednisone 50 MG Oral Tablet [place] ([facility]) Furosemide 40 MG Oral Tablet furosemide 40 mg tablet TAKE ONE TABLET BY MOUTH EVERY DAY furosemide 40 mg tablet TAKE ONE TABLET BY MOUTH EVERY DAY completed furosemide 40 MG Oral Tablet [facility] ([facility]) Omeprazole 20 MG Delayed Release Oral Ca psule omeprazole 20 mg capsule,delayed release TAKE ONE CAPSULE BY MOUTH EVERY MORNING omeprazole 20 mg capsule,delayed release TAKE ONE CAPSULE BY MOUTH EVERY MORNING completed omeprazole 20 MG Delayed Release Oral Capsule [place] ([facility]) Prednisone 50 MG Oral Tablet prednisone 50 mg tablet prednisone 50 mg tablet completed prednisone 50 MG Oral Tablet [place] ([facility]) Furosemide 40 MG Oral Tablet furosemide 40 mg tablet TAKE ONE TABLET BY MOUTH EVERY DAY furosemide 40 mg tablet TAKE ONE TABLET BY MOUTH EVERY DAY completed furosemide 40 MG Oral Tablet [place] ([facility]) pantoprazole 40 MG Delayed Release Oral Tablet pantoprazole 40 mg tablet,delayed release TAKE ONE TABLET BY MOUTH EVERY DAY pantoprazole 40 mg tablet,delayed release TAKE ONE TABLET BY MOUTH EVERY DAY completed pantoprazole 40 MG Delayed Release Oral Tablet [place] ([facility]) Amoxicillin 875 MG / Clavulanate 125 MG Oral Tablet amoxicillin 875 mg-potassium clavulanate 125 mg tablet TAKE ONE TABLET BY MOUTH TWO TIMES PER DAY FOR 10 DAYS amoxicillin 875 mg-potassium clavulanate 125 mg tablet TAKE ONE TABLET BY MOUTH TWO TIMES PER DAY FOR 10 DAYS co mpleted amoxicillin 875 MG / clavulanate 125 MG Oral Tablet [place] ([facility]) Ondansetron 4 MG Disintegrating Oral Tab let ondansetron 4 mg disintegrating tablet DISSOLVE ONE TABLET ON TONGUE EVERY 6 TO 8 HOURS ondansetron 4 mg disintegrating tablet DISSOLVE ONE TABLET ON TONGUE EVERY 6 TO 8 HOURS completed ondansetron 4 MG Disinteg rating Oral Tablet [place] ([facility]) Prednisone 20 MG Oral Tablet prednisone 20 mg tablet TAKE THREE TABLETS BY MOUTH EVERY DAY prednisone 20 mg tablet TAKE THREE TABLETS BY MOUTH EVERY DAY completed prednisone 20 MG Ora l Tablet [facility] ([facility]) Loperamide Hydrochloride 2 MG Oral Capsu le loperamide 2 mg capsule TAKE ONE CAPSULE BY MOUTH TWICE A DAY NEEDED FOR DIARREA FOR UP TO 10 DAYS loperamide 2 mg capsule TAKE ONE CAPSULE BY MOUTH TWICE A DAY NEEDED FOR DIARREA FOR UP TO 10 DAYS completed loperamide hydrochloride 2 MG Oral Capsule [place] ([facility]) Ondansetron 4 MG Disintegrating Oral Tab let ondansetron 4 mg disintegrating tablet DISSOLVE ONE TABLET ON TONGUE EVERY 6 TO 8 HOURS ondansetron 4 mg disintegrating tablet DISSOLVE ONE TABLET ON TONGUE EVERY 6 TO 8 HOURS completed ondansetron 4 MG Disinteg rating Oral Tablet [place] ([facility]) Phenazopyridine hydrochloride 200 MG Oral Tablet phena zopyridine 200 mg tablet phenazopyridine 200 mg tablet complete d phenazopyridine hydrochloride 200 MG Oral Tablet [facility] ([facility]) Dexamethasone 0.001 MG/MG / Tobramycin 0 .003 MG/MG Ophthalmic Ointment [Tobradex] TobraDex 0.3 %-0.1 % eye ointment APPLY A SMALL AMOUNT ON EYELID TWO TIMES A DAY DIRECTED TobraDex 0.3 %-0.1 % eye ointment APPLY A SMALL AMOUNT ON EYELID TWO TIMES A DAY DIRECTED completed dexamethasone 0.001 MG/MG / tobramycin 0.003 MG/MG Ophthalmic Ointment [Tobradex] [place] ([facility]) Phenazopyridine hydrochloride 200 MG Oral Tablet phena zopyridine 200 mg tablet phenazopyridine 200 mg tablet complete d phenazopyridine hydrochloride 200 MG Oral Tablet [facility] ([facility]) Amitriptyline Hydrochloride 25 MG Oral Tablet amitript yline 25 mg tablet amitriptyline 25 mg tablet completed amitriptyline hydrochloride 25 MG Oral Tablet [facility] ([facility]) Loperamide Hydrochloride 2 MG Oral Capsu le loperamide 2 mg capsule TAKE ONE CAPSULE BY MOUTH TWICE A DAY NEEDED FOR DIARREA FOR UP TO 10 DAYS loperamide 2 mg capsule TAKE ONE CAPSULE BY MOUTH TWICE A DAY NEEDED FOR DIARREA FOR UP TO 10 DAYS completed loperamide hydrochloride 2 MG Oral Capsule [place] ([facility]) doxycycline hyclate 100 MG Oral Capsule doxycycline hy clate 100 mg capsule doxycycline hyclate 100 mg capsule com pleted doxycycline hyclate 100 MG Oral Capsule [facility] ([facility]) pantoprazole 40 MG Delayed Release Oral Tablet pantoprazole 40 mg tablet,delayed release TAKE ONE TABLET BY MOUTH EVERY DAY pantoprazole 40 mg tablet,delayed release TAKE ONE TABLET BY MOUTH EVERY DAY completed pantoprazole 40 MG Delayed Release Oral Tablet [facility] ([facility]) Dexamethasone 0.001 MG/MG / Tobramycin 0 .003 MG/MG Ophthalmic Ointment [Tobradex] TobraDex 0.3 %-0.1 % eye ointment APPLY A SMALL AMOUNT ON EYELID TWO TIMES A DAY DIRECTED TobraDex 0.3 %-0.1 % eye ointment APPLY A SMALL AMOUNT ON EYELID TWO TIMES A DAY DIRECTED completed dexamethasone 0.001 MG/MG / tobramycin 0.003 MG/MG Ophthalmic Ointment [Tobradex] [place] ([facility]) NITROFURANTOIN, MACROCRYSTALS 25 MG / Ni trofurantoin, Monohydrate 75 MG Oral Capsule nitrofurantoin monohydrate/macrocrystals 100 mg capsule nitrofurantoin monohydrate/macrocrystals 100 mg capsule completed nitrofurantoin, macrocrystals 25 MG / nitrofurantoin, monohydrate 75 MG Oral Capsule [place] ([facility]) POLYETHYLENE GLYCOL 3350 142 MG/ML Oral Solution polyethylene glycol 3350 17 gram/dose oral powder polyethylene glycol 3350 17 gram/dose oral powder completed polyethylene glycol 3350 29414 MG Powder for Oral Solution [place] ([facility]) Amoxicillin 500 MG Oral Capsule amoxicil hamida 500 mg capsule TAKE ONE CAPSULE BY MOUTH THREE TIMES A DAY amoxicillin 500 mg capsule TAKE ONE CAPS ULE BY MOUTH THREE TIMES A DAY completed amox icillin 500 MG Oral Capsule [place] ([facility]) Ciprofloxacin 500 MG Oral Tablet ciprofloxacin 500 mg tablet ciprofloxacin 500 mg tablet completed ciprofloxaci n 500 MG Oral Tablet [place] ([facility]) Insurance Providers Payer name Policy type / Coverage type Policy ID Covered libertarian ID Covered libertarian's relationship to reynoso Policy [place] Plan Information [id number] MEDICAID [facility] [id number] SP CC [id number] LENNY [id number] SP [id number] MEDICAID M [id number] Self [id number] Medicaid Dental S [id number] Medicaid P [id number] S [id number] MEDICAID [facility] [id number] SP [id number] [facility] COMM PLAN ARYA W [id number] S [id number] [facility] I [id number] Self [id number] [facility] [id number] Self [id number] [facility] I [id number] Self [id number] MEDICAID [id number] SP [id number] MEDICAID M [id number] Self [id number] UHC I [id number] Self [id number] UHC I [id number] Self [id number] Medicaid S [id number] UNHC COMMUNITY PLAN MCDO [id number] SP [id number] UNHC COMMUNITY PLAN MCDHMO [id number] SP [id number] MEDICAID M [id number] Self [id number] UHC I [id number] Self [id number] UH I [id number] Self [id number] Managed Care - Community Plan [employer] P [id number] S [id number] Medicaid S [id number] S [id number] Managed Care - Community Plan United [employer] P [id number] S [id number] [facility] Health Maintenance Organization (HMO) [id number] Self [id number] [facility] COMMUNITY PLAN MCDHMO [id number] SP [id number] Medicaid S [id number] S [id number] Managed Care - Community Plan [employer] P [id number] S [id number] Managed Care - [facility] Community Plan P [id number] S [id number] [facility] COMMUNITY PLAN MCDHMO [id number] SP [id number] Medicaid S [id number] S [id number] UNITED H [id number] Self [id number] Managed Care - [facility] Community Plan P [id number] S [id number] UH I [id number] Self [id number] United 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 [id number] Self [id number] United [employer] 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 [id number] Self [id number] [facility] [id number] SP [id number] SELF PAY UNITED [employer] [id number] SP [id number] [facility] COMMUNITY PLAN [id number] SP [id number] SELF PAY SELF PAY [facility] COMMUNITY PLAN [id number] SP [id number] [employer] [id number] SP [id number] SELF PAY SELF PAY SELF PAY SELF PAY [facility] MEDICAID [id number] [facility] MEDICAID [id number] Lucille [id number] SELF PAY [facility] Health Maintenance Organization (HMO) [id number] Self [id number] [facility] Communty Plan Medicaid [id number] Self [id number] MEDICAID HEA [id number] S [id number] [facility] HEA [id number] S [id number] [facility] Communty Plan Medicaid [id number] Self [id number] [facility] Plan Medicaid [id number] Self [id number] [facility] COMMUNITY PLAN [facility] [id number] SP [id number] [facility] Communty Plan Medicaid [id number] Self [id number] [facility] COMMUNITY PLAN [facility] [id number] SP [id number] [facility] Plan Medicaid [id number] Self [id number] [facility] COMMUNITY PLAN XIX -I/P [id number] 18 [id number] [facility](MCAID) O [id number] S [id number] UNHC COMMUNITY PLAN [facility] [id number] SP [id number] ANSI-Medicaid [id number] [facility] Plan Medicaid [id number] Self [id number] [facility] COMMUNTY PLAN UNAVAILABLE 18 UNAVAILABLE [facility] COMMUNTY [facility] [id number] 18 [id number] [facility] Community Plan Commercial [id number] [facility] HEALTHCARE(MCAID) O [id number] S [id number] SELF PAY UNAVAILABLE UNAVAILA BLE MEDICAID W [id number] S [id number] [facility] [place] S [id number] S [id number] [facility] [id number] SP [id number] MEDICAID W [id number] S [id number] MEDICAID [place] [id number] S [id number] SELF PAY SP [id number] S [id number] MEDICAID REF AMBULAT W [id number] S [id number] MEDICAID W [id number] S [id number] [facility] [id number] SP [id number] TOTAL CARE INC UNAVAILABLE ALLIE VAILABLE PCP L[facility]NY CARE O [id number] S [id number] MEDICAID GME W [id number] S [id number] LENNY [id number] SP [id number] MEDICAID [id number] SP [id number] [facility] COMMUNITY PLAN XIX [id number] 18 [id number] Self Pay P [id number] S [id number] MEDICAID M [id number] S [id number] Problems, Conditions, and Diagnoses Code Display Name Description Problem Type Effective Dates Data Source(s) Z8719 Personal history of other diseases of th e digestive system Personal history of other diseases of the digestive system Diagnosis 04/21 11:11:00 AM EDT [facility] Z8711 Personal history of peptic ulcer disease Personal history of peptic ulcer disease Diagnosis 05/18/2021 11:11:00 AM EDT [facility] Z6837 Body mass index [BMI] 37.0-37.9, adult B stephanie mass index [BMI] 37.0-37.9, adult Diagnosis 05/18/2021 11:11:00 AM EDT [facility] E669 Obesity, unspecified Obesity, unspecified Diagnosis 05/18/2021 11:11:00 AM EDT [facility] E039 Hypothyroidism, unspecified Hypothyroidism, unspecifie d Diagnosis 05/18/2021 11:11:00 AM EDT [facility] K219 Gastro-esophageal reflux disease without esophagitis Gastro-esophageal reflux disease without esophagitis Diagnosis 05/18/2021 11:11:00 AM ED T [facility] D7389 Other diseases of spleen Other diseases of spleen Diag nosis 05/18/2021 11:11:00 AM EDT [facility] G8929 Other chronic pain Other chronic pain Diagnosis 11:11:00 AM EDT [facility] R1012 Left upper quadrant pain Left upper quadrant pain Diag nosis 05/18/2021 11:11:00 AM EDT [facility] R07.9 Chest pain, unspecified Chest pain, unspecified Diagno sis 03/11/2021 07:33:00 AM EDT [facility] R06.81 Apnea, not elsewhere classified Apnea, not elsew here classified Diagnosis 03/10/2021 08:46:15 PM T [facility] R55 Syncope and collapse Syncope and collapse Diagnosis 02/28/2021 03:23:27 PM [facility] Z6838 Body mass index [BMI] 38.0-38.9, adult B stephanie mass index [BMI] 38.0-38.9, adult Diagnosis 02/12/2021 12:21:00 AM T [facility] K5900 Constipation, unspecified Constipation, unspecified Di agnosis 02/12/2021 12:21:[address] 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 Myotonic muscular dystroph y Diagnosis 12/12/2020 09:00:39 AM [facility] pelvic pain pelvic pain Diagnosis 11/26/2020 05:20:10 PM [facility] Nausea, pain Nausea, pain Diagnosis 11/14/2020 11:07:35 A M [facility] Lots of chest pain and feeling nauseous Lots of chest pain and feeling nauseous Diagnosis 11/13/2020 12:00:00 AM [facility] R10.33 Periumbilical pain Periumbilical pain Diagnosis 04/2021 10:23:12 AM [facility] stomach pain for 5 days and nausea stomach pain for 5 days and nausea Diagnosis 10/27/2020 10:23:12 AM [facility] N39.8 Other specified disorders of urinary sys tem Other specified disorders of urinary system Diagnosis 10/23/2020 09:07:07 AM [facility] G89.29 Other chronic pain Other chronic pain Diagnosis 03/2021 04:11:08 PM [facility] M54.5 Low back pain Low back pain Diagnosis 09/25/2020 04:11:08 PM [facility] R10.2 Pelvic and perineal pain Pelvic and perineal pain Diag nosis 09/25/2020 10:11:40 AM [facility] R30.9 Painful micturition, unspecified Painful micturi tion, unspecified Diagnosis 09/25/2020 09:23:56 AM [facility] Headache and Lump on head for 2 weeks Headache a nd Lump on head for 2 weeks Diagnosis 09/19/2020 07:20:21 PM [facility] Z90.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 Z90.49 - Acquired absence of other specified parts of digestive tract Diagnosis 09/18/2020 09:34:00 AM EST [facility] K92.89 Other specified diseases of the digestiv e system K92.89 - Other specified diseases of the digestive system Diagnosis 09/18/2020 09:34:00 AM EST [facility] 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 G71.11 - Myotonic mu scular dystrophy Diagnosis 09/18/2020 09:34:00 AM EST [facility] E66.9 Obesity, unspecified E66.9 - Obesity, unspecified Diag nosis 09/18/2020 09:34:00 AM EST [facility] nausea , headache nausea , headache Diagnosis 09/06/2020 06:36:05 PM [facility] Back pain Back pain Diagnosis 08/27/2020 02:53:57 PM [facility] K92.1 Melena Melena Diagnosis 08/08/2020 12:09:27 PM [facility] K52.9 Noninfective gastroenteritis and colitis , unspecified Noninfective gastroenteritis and colitis, unspecified Diagnosis 08/08/2020 12:09:27 PM [facility] stomach pain stomach pain Diagnosis 08/08/2020 12:09:27 P M [facility] L49047 Personal history of urinary (tract) infe ctions Personal history of urinary (tract) infections Diagnosis 07/15/2020 07:08:00 PM [facility] Z8679 Personal history of other diseases of th e circulatory system Personal history of other diseases of the circulatory system Diagnosis 07:08:00 PM [facility] R1011 Right upper quadrant pain Right upper quadrant pain Di agnosis 07/15/2020 07:08:00 PM [facility] dizzy, stomach pain dizzy, stomach pain Diagnosis 020 01:49:50 PM [facility] B34.9 Viral infection, unspecified Viral infection, unspecif ied Diagnosis 07/02/2020 01:06:37 PM [facility] nausea, fever, headache nausea, fever, headache Diagno sis 07/02/2020 01:06:37 PM [facility] R11.2 Nausea with vomiting, unspecified Nausea with vo miting, unspecified Diagnosis 06/21/2020 03:53:45 PM [facility] R10.84 Generalized abdominal pain Generalized abdominal pain Diagnosis 06/21/2020 03:53:45 PM [facility] R50.9 Fever, unspecified Fever, unspecified Diagnosis 09/2019 03:53:45 PM [facility] J45.20 Mild intermittent asthma, uncomplicated Mild intermittent asthma, uncomplicated Diagnosis 05/31/2020 02:33:53 PM [facility] J06.9 Acute upper respiratory infection, unspe cified Acute upper respiratory infection, unspecified Diagnosis 05/31/2020 02:33:53 PM [facility] Chest tightness, wheezing Chest tightness, wheezing Di agnosis 05/31/2020 02:33:53 PM [facility] Had procedure done on 05/16/20 and sick ever since Had procedure done on 05/16/20 and sick ever since Diagnosis 05/21/2020 04:12:12 PM [facility] Z90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 Acquired absence of other specified parts of digestive tract Diagnosis 07:34:00 PM [facility] N3000 Acute cystitis without hematuria Acute cystitis without hematuria Diagnosis 05/20/2020 07:34:00 PM [facility] E66.01 Morbid (severe) obesity due to excess ca lories E66.01 - Morbid (severe) obesity due to excess calories Diagnosis 05/16/2020 09:23:00 AM EDT [facility] E66.01 Morbid (severe) obesity due to excess ca lories E66.01 - Morbid (severe) obesity due to excess calories Diagnosis 05/16/2020 07:46:00 AM EDT [facility] L02.92 Furuncle, unspecified Furuncle, unspecified Diagnosis 05/09/2020 11:12:41 AM EDT [facility] spider bite spider bite Diagnosis 05/09/2020 11:12:41 AM EDT [facility] R0600 Dyspnea, unspecified Dyspnea, unspecified Diagnosis 04/25/2020 09:46:00 PM EDT [facility] passing out, vomiting passing out, vomiting Diagnosis 04/25/2020 02:27:32 PM EDT [facility] passing out passing out Diagnosis 04/25/2020 02:15:55 PM EDT [facility] 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 R10.11 Right upper quadrant pain Right upper quadrant pain Di agnosis 04/22/2020 03:07:45 PM EDT [facility] Body Pain Body Pain Diagnosis 04/04/2020 04:41:[address] [facility] general feeling of unwell general feeling of unwell Di agnosis 04/03/2020 10:04:54 AM EDT [facility] E66.09 Class 2 obesity due to exces s calories without serious comorbidity with body mass index (BMI) of 37.0 to 37.9 in adult Class 2 obesity due to excess calories without serious comorbidity with body mass index (BMI) of 37.0 to 37.9 in adult [id number] 03/12/2021 12:00:00 AM EDT [facility] G47.33 Obstructive sleep apnea syndrome Obstructive sle ep apnea syndrome [id number] 03/12/2021 12:00:00 AM EDT [facility] I42.9 Cardiomyopathy Cardiomyopathy [id number] 03/12/2021 12:00: 00 AM EDT [facility] I44.7 LBBB (left bundle branch block) LBBB (left bundle bran ch block) [id number] 03/12/2021 12:00:00 AM EDT [facility] G71.11 Myotonic dystrophy Myotonic dystrophy [id number] 12:00:00 AM EDT [facility] R07.9 Chest pain Chest pain [id number] 03/11/2021 12:00:00 AM ED T [facility] [id number] Left bundle branch block Left Bundle Branch Block Prob xiomara 03/05/2021 12:00:00 AM EDT [place] ([facility]) [id number] 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 Car diomyopathy in Myotonic Dystrophy Problem 03/05/2021 12:00:00 AM EDT [place] ([facility]) [id number] Left bundle branch block Left Bundle Branch Block Prob xiomara 03/05/2021 12:00:00 AM EDT [place] ([facility]) [id number] 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 Car diomyopathy in Myotonic Dystrophy Problem 03/05/2021 12:00:00 AM EDT [place] ([facility]) [id number] Hemorrhagic diarrhea Hemorrhagic Diarrhea Problem 12/19/2020 12:00:00 AM EDT [facility] ([facility]) [id number] Hemorrhagic diarrhea Hemorrhagic Diarrhea Problem 12/19/2020 12:00:00 AM EDT [facility] ([facility]) [id number] Hemorrhagic diarrhea Hemorrhagic Diarrhea Problem 12/19/2020 12:00:00 AM EDT [facility] ([facility]) [id number] Low back pain Low Back Pain Problem 09/26/2020 12:00:00 AM EST [facility] ([facility]) [id number] Low back pain Low Back Pain Problem 09/26/2020 12:00:00 AM EST [place] ([facility]) [id number] Low back pain Low Back Pain Problem 09/26/2020 12:00:00 AM EST [facility] ([facility]) [id number] Low back pain Low Back Pain Problem 09/26/2020 12:00:00 AM EST [facility] ([facility]) 945843768 Low back pain Low Back Pain Problem 09/26/2020 12:00:00 AM EST [facility] ([facility]) [id number] Low back pain Low Back Pain Problem 09/26/2020 12:00:00 AM EST [facility] ([facility]) 563383024 Low back pain Low Back Pain Problem 09/26/2020 12:00:00 AM EST [facility] ([facility]) [id number] Left hemiparesis Left Hemiparesis Problem 08/30/2020 12 :00:00 AM EST [facility] ([facility]) [id number] Left hemiparesis Left Hemiparesis Problem 08/30/2020 12 :00:00 AM EST [facility] ([facility]) 049785249 Left hemiparesis Left Hemiparesis Problem 08/30/2020 12 :00:00 AM EST [facility] ([facility]) 555933958 Left hemiparesis Left Hemiparesis Problem 08/30/2020 12 :00:00 AM EST [facility] ([facility]) [id number] Left hemiparesis Left Hemiparesis Problem 08/30/2020 12 :00:00 AM EST [facility] ([facility]) [id number] Left hemiparesis Left Hemiparesis Problem 08/30/2020 12 :00:00 AM EST [facility] ([facility]) 821931511 Left hemiparesis Left Hemiparesis Problem 08/30/2020 12 :00:00 AM EST [facility] ([facility]) [id number] Left hemiparesis Left Hemiparesis Problem 08/30/2020 12 :00:00 AM EST [facility] ([facility]) 756139672 Left hemiparesis Left Hemiparesis Problem 08/30/2020 12 :00:00 AM EST [facility] ([facility]) 044106031 Body mass index 30+ - obesity Body Mass Index 30+ - Ob esity Problem 05/28/2020 12:00:00 AM EST [facility] ([facility]) [id number] Body mass index 30+ - obesity Body Mass Index 30+ - Ob esity Problem 05/28/2020 12:00:00 AM EST [facility] ([facility]) 811750191 Body mass index 30+ - obesity Body Mass Index 30+ - Ob esity Problem 05/28/2020 12:00:00 AM EST [facility] ([facility]) 896865303 Body mass index 30+ - obesity Body Mass Index 30+ - Ob esity Problem 05/28/2020 12:00:00 AM EST [facility] ([facility]) 451894164 Body mass index 30+ - obesity Body Mass Index 30+ - Ob esity Problem 05/28/2020 12:00:00 AM EST [facility] ([facility]) 816208741 Body mass index 30+ - obesity Body Mass Index 30+ - Ob esity Problem 05/28/2020 12:00:00 AM EST [facility] ([facility]) 031533019 Body mass index 30+ - obesity Body Mass Index 30+ - Ob esity Problem 05/28/2020 12:00:00 AM EST [facility] ([facility]) 768115388 Body mass index 30+ - obesity Body Mass Index 30+ - Ob esity Problem 05/28/2020 12:00:00 AM EST [facility] ([facility]) 951030502 Body mass index 30+ - obesity Body Mass Index 30+ - Ob esity Problem 05/28/2020 12:00:00 AM EST [facility] ([facility]) [id number] Body mass index 30+ - obesity Body Mass Index 30+ - Ob esity Problem 05/28/2020 12:00:00 AM EST [facility] ([facility]) [id number] Finding of esophagus Finding of Esophagus Problem 05/03/2020 06:15:26 PM EDT [facility] ([facility]) [id number] Hypothyroidism Hypothyroidism Problem 05/03/2020 06:15: 26 PM EDT [facility] ([facility]) [id number] Finding of esophagus Finding of Esophagus Problem 05/03/2020 06:15:26 PM EDT [facility] ([facility]) [id number] Hypothyroidism Hypothyroidism Problem 05/03/2020 06:15: 26 PM EDT [facility] ([facility]) [id number] Finding of esophagus Finding of Esophagus Problem 05/03/2020 06:15:26 PM EDT [facility] ([facility]) [id number] Hypothyroidism Hypothyroidism Problem 05/03/2020 06:15: 26 PM EDT [facility] ([facility]) [id number] Finding of esophagus Finding of Esophagus Problem 05/03/2020 06:15:26 PM EDT [facility] ([facility]) [id number] Hypothyroidism Hypothyroidism Problem 05/03/2020 06:15: 26 PM EDT [facility] ([facility]) [id number] Finding of esophagus Finding of Esophagus Problem 05/03/2020 06:15:26 PM EDT [facility] ([facility]) [id number] Hypothyroidism Hypothyroidism Problem 05/03/2020 06:15: 26 PM EDT [facility] ([facility]) [id number] Finding of esophagus Finding of Esophagus Problem 05/03/2020 06:15:26 PM EDT [facility] ([facility]) [id number] Hypothyroidism Hypothyroidism Problem 05/03/2020 06:15: 26 PM EDT [facility] ([facility]) [id number] Finding of esophagus Finding of Esophagus Problem 05/03/2020 06:15:26 PM EDT [facility] ([facility]) [id number] Hypothyroidism Hypothyroidism Problem 05/03/2020 06:15: 26 PM EDT [facility] ([facility]) [id number] Finding of esophagus Finding of Esophagus Problem 05/03/2020 06:15:26 PM EDT [facility] ([facility]) [id number] Hypothyroidism Hypothyroidism Problem 05/03/2020 06:15: 26 PM EDT [facility] ([facility]) [id number] Finding of esophagus Finding of Esophagus Problem 05/03/2020 06:15:26 PM EDT [facility] ([facility]) [id number] Hypothyroidism Hypothyroidism Problem 05/03/2020 06:15: 26 PM EDT [facility] ([facility]) [id number] Finding of esophagus Finding of Esophagus Problem 05/03/2020 06:15:26 PM EDT [facility] ([facility]) [id number] Hypothyroidism Hypothyroidism Problem 05/03/2020 06:15: 26 PM EDT [place] ([facility]) [id number] Acute effect of ultraviolet radiation on normal skin Acute Effect of Ultraviolet Radiation on Normal Skin Problem 01/27/2018 12:00: 00 AM EDT - 03/05/2021 12:00:00 AM EDT [facility] ([facility]) [id number] Acute effect of ultraviolet radiation on normal skin Acute Effect of Ultraviolet Radiation on Normal Skin Problem 01/27/2018 12:00: 00 AM EDT - 03/05/2021 12:00:00 AM EDT [facility] ([facility]) [id number] Abdominal pain Abdominal Pain Problem 04/20/2015 12:00:00 AM EDT - 03/05/2021 12:00:00 AM EDT [facility] ([facility]) [id number] Abdominal pain Abdominal Pain Problem 04/20/2015 12:00:00 AM EDT - 03/05/2021 12:00:00 AM EDT [facility] ([facility]) Surgeries/Procedures Procedure Description Date Indications Data Source(s) RADIOLOGIC EXAM KNEE COMPLETE 4/MORE VIEWS 05/02/2021 12:00:00 AM EDT [facility] ([facility]) OFFICE OUTPATIENT VISIT 25 MINUTES 05/02/2021 12:00:00 AM EDT [facility] ([facility]) OFFICE OUTPATIENT NEW 30 MINUTES 05/01/2021 12:00:00 A M EDT [facility] ([facility], ) KIDNEY IMG MORPHOLOGY VASCULAR FLOW 1 W RX <td>NM KIDN EY FUNCTION WITH PHARM - 49971</td><td>Routine</td><td>03/22/2021 3:10 PM EDT</td><td> Dysfunctional voiding of urine Suprapubic discomfort</td><td> </td> 03/22/2021 03:10:54 PM EDT Suprapubic discomfortDysfunctional voiding of urine [facility] Suprapubic discomfort Dysfunctional voiding of urine CT ABDOEN & PELVIS W/CONTRAST MATERIAL <td>CT ABDOMEN PELVIS WITH CONTRAST [id number]</td><td>Routine</td><td>03/22/2021 3:01 PM EDT</td><td> Dysfunctional voiding of urine Suprapubic discomfort</td><td> </td> 03/22/2021 03:01:51 PM EDT Suprapubic discomfortDysfunctional voiding of urine [facility] Suprapubic discomfort Dysfunctional voiding of urine BLOOD COUNT COMPLETE AUTOMATED <td>CBC</td><td>Routine </td><td>03/13/2021 12:49 PM EDT</td><td></td><td> </td> 03/13/2021 12:49:00 PM EDT [facility] LIPASE <td>LIPASE</td><td>Routine</ td><td>03/13/2021 12:49 PM EDT</td><td></td><td> </td> 03/13/2021 12:49:00 PM EDT [facility] COMPREHENSIVE METABOLIC PANEL <td>COMPREHENSIVE METABO LIC PANEL</td><td>Routine</td><td>03/13/2021 12:49 PM EDT</td><td></td><td> </td> 03/13/2021 12:49:00 PM EDT [facility] CT ABDOMEN & PELVIS W/O CONTRAST MATERIAL <td>CT ABDOM EN PELVIS WO CONTRAST</td><td>Routine</td><td>03/12/2021 6:26 PM EDT</td><td></td><td> </td> 03/12/2021 06:26:06 PM EDT [facility] BLOOD COUNT COMPLETE AUTOMATED <td>CBC</td><td>Add-On< /td><td>03/12/2021 6:00 PM EDT</td><td></td><td> </td> 03/12/2021 06:00:00 PM EDT [facility] LIPASE <td>LIPASE</td><td>Add-On</t d><td>03/12/2021 6:00 PM EDT</td><td></td><td> </td> 03/12/2021 06:00:00 PM EDT [facility] COMPREHENSIVE METABOLIC PANEL <td>COMPREHENSIVE METABO LIC PANEL</td><td>Add- On</td><td>03/12/2021 6:00 PM EDT</td><td></td><td> </td> 03/12/2021 06:00:00 PM EDT [facility] FIBRIN DGRADJ PRODUCTS D-DIMER QUANTITATIVE <td>D-DIME R, QUANTITATIVE</td><td>Routine</td><td>03/12/2021 5:59 PM EDT</td><td></td><td> </td> 03/12/2021 05:59:00 PM EDT [facility] MYOCARDIAL SPECT MULTIPLE STUDIES <td>NM CARDIAC GATED SPEC IMG EFWM</td><td>Pending Discharge</td><td>03/12/2021 3:22 PM EDT</td><td></td><td> </td> 03/12/2021 03:22:00 PM EDT [facility] CV STRS TST XERS&/OR RX CONT ECG TRCG ONLY <td>STRESS TEST, CARDIOVASCULAR</td><td>Routine</td><td>03/12/2021 1:29 PM EDT</td><td></td><td></td> 03/12/2021 01:29:23 PM EDT [facility] TROPONIN QUANTITATIVE <td>POCT TROPONIN</td><td>Ro utine</td><td>03/11/2021 8:45 PM EDT</td><td></td><td> </td> 03/11/2021 08:45:00 PM EDT [facility] CV STRS TST XERS&/OR RX CONT ECG TRCG ONLY <td>STRESS TEST, CARDIOVASCULAR</td><td>Pending Discharge</td><td>03/11/2021 8:43 PM EDT</td><td></td><td></td> 03/11/2021 08:43:49 PM EDT [facility] ECG ROUTINE ECG W/LEAST 12 LDS TRCG ONLY W/O I&R <td>E CG 12- LEAD</td><td>Routine</td><td>03/11/2021 8:23 PM EDT</td><td></td><td></td> 03/11/2021 08:23:28 PM EDT [facility] TROPONIN QUANTITATIVE <td>TROPONIN I</td><td>Routi ne</td><td>03/11/2021 4:55 PM EDT</td><td></td><td> </td> 03/11/2021 04:55:00 PM EDT [facility] TROPONIN QUANTITATIVE <td>POCT TROPONIN</td><td>Ro utine</td><td>03/11/2021 2:07 PM EDT</td><td></td><td> </td> 03/11/2021 02:07:00 PM EDT [facility] TROPONIN QUANTITATIVE <td>TROPONIN I</td><td>Routi ne</td><td>03/11/2021 2:01 PM EDT</td><td></td><td> </td> 03/11/2021 02:01:00 PM EDT [facility] TROPONIN QUANTITATIVE <td>POCT TROPONIN</td><td>Ro utine</td><td>03/11/2021 10:29 AM EDT</td><td></td><td> </td> 03/11/2021 10:29:00 AM EDT [facility] NT PRO BNP <td>NT PRO BNP</td><td>STAT< /td><td>03/11/2021 10:23 AM EDT</td><td></td><td> </td> 03/11/2021 10:23:00 AM EDT [facility] BLOOD COUNT COMPLETE AUTO&AUTO DIFRNTL WBC COUNT <td>C BC AND DIFFERENTIAL</td><td>STAT</td><td>03/11/2021 10:23 AM EDT</td><td></td><td> </td> 03/11/2021 10:23:00 AM EDT [facility] GONADOTROPIN CHORIONIC QUALITATIVE <td>HCG, SERUM, QUALITATIVE</td><td>STAT</td><td>03/11/2021 10:23 AM EDT</td><td></td><td> </td> 03/11/2021 10:23:00 AM EDT [facility] MAGNESIUM <td>MAGNESIUM</td><td>STAT</ td><td>03/11/2021 10:23 AM EDT</td><td></td><td> </td> 03/11/2021 10:23:00 AM EDT [facility] LIPASE <td>LIPASE</td><td>STAT</td> <td>03/11/2021 10:23 AM EDT</td><td></td><td> </td> 03/11/2021 10:23:00 AM EDT [facility] COMPREHENSIVE METABOLIC PANEL <td>COMPREHENSIVE METABO LIC PANEL</td><td>STAT</td><td>03/11/2021 10:23 AM EDT</td><td></td><td> </td> 03/11/2021 10:23:00 AM EDT [facility] XR CHEST PA AND LATERAL <td>XR CHEST PA AND LATERAL</td><td>STAT</td><td>03/11/2021 9:45 AM EDT</td><td></td><td> </td> 03/11/2021 09:45:15 AM EDT [facility] ECG ROUTINE ECG W/LEAST 12 LDS TRCG ONLY W/O I&R <td>E CG 12- LEAD</td><td>STAT</td><td>03/11/2021 9:23 AM EDT</td><td></td><td></td> 03/11/2021 09:23:00 AM EDT [facility] ECG ROUTINE ECG W/LEAST 12 LDS W/I&R <td>ECG 12- LEAD</td><td>Routine</td><td>03/11/2021 7:43 AM EDT</td><td></td><td> </td> 03/11/2021 07:43:00 AM EDT [facility] ECG ROUTINE ECG W/LEAST 12 LDS W/I&R <td>ECG 12- LEAD</td><td>Routine</td><td>03/11/2021 7:43 AM EDT</td><td></td><td></td> 03/11/2021 07:43:00 AM EDT [facility] POTASSIUM SERUM PLASMA/WHOLE BLOOD <td>POTASSIUM</td><td>Routine</td><td>02/28/2021 12:13 PM EDT</td><td></td><td> </td> 02/28/2021 12:13:00 PM [facility] BLOOD COUNT COMPLETE AUTOMATED <td>CBC</td><td>Routine </td><td>02/28/2021 8:09 AM EDT</td><td></td><td> </td> 02/28/2021 08:09:00 AM [facility] COMPREHENSIVE METABOLIC PANEL <td>COMPREHENSIVE METABO LIC PANEL</td><td>Routine</td><td>02/28/2021 8:09 AM EDT</td><td></td><td> </td> 02/28/2021 08:09:00 AM [facility] BASIC METABOLIC PANEL CALCIUM TOTAL <td>BASIC METABOLI C PANEL</td><td>Routine</td><td>02/27/2021 6:13 PM EDT</td><td></td><td> </td> 02/27/2021 06:13:00 PM [facility] EKG 12-LEAD - CMAXX REPORT <td>EKG 12-LEAD - CMAXX REPORT</td><td></td><td>02/27/2021 6:07 PM EDT</td><td></td><td></td> 02/27/2021 06:07:52 PM [facility] EKG 12-LEAD - CMAXX REPORT <td>EKG 12-LEAD - CMAXX REPORT</td><td></td><td>02/27/2021 6:07 PM EDT</td><td></td><td></td> 02/27/2021 06:07:52 PM [facility] EKG 12-LEAD <td>EKG 12-LEAD</td><td>Rout ine</td><td>02/27/2021 6:07 PM EDT</td><td></td><td> </td> 02/27/2021 06:07:52 PM [facility] TROPONIN T HIGH SENSITIVITY <td>TROPONIN T HIGH SENSITIVITY</td><td>Routine</td><td>02/27/2021 1:32 PM EDT</td><td></td><td> </td> 02/27/2021 01:32:00 PM [facility] FIBRIN DGRADJ PRODUCTS D-DIMER QUAL/SEMIQUAN <td>D-DIM ER, QUANTITATIVE</td><td>Routine</td><td>02/27/2021 1:32 PM EDT</td><td></td><td> </td> 02/27/2021 01:32:00 PM [facility] ECHOCARDIOGRAM 2D COMPLETE WITH CONTRAST <td>ECHOCARDI OGRAM 2D COMPLETE WITH CONTRAST</td><td>Routine</td><td>02/27/2021 11:23 AM EDT</td><td></td><td></td> 02/27/2021 11:23:49 AM [facility] XR ABDOMEN AP ABD SUPINE ONLY [id number] <td>XR ABDOMEN AP ABD SUPINE ONLY 23611</td><td>Routine</td><td>02/27/2021 2:11 AM EDT</td><td></td><td> </td> 02/27/2021 02:11:00 AM [facility] TROPONIN T HIGH SENSITIVITY <td>TROPONIN T HIGH SENSITIVITY</td><td>STAT</td><td>02/27/2021 1:55 AM EDT</td><td></td><td> </td> 02/27/2021 01:55:00 AM [facility] TROPONIN T HIGH SENSITIVITY <td>TROPONIN T HIGH SENSITIVITY</td><td>Routine</td><td>02/26/2021 11:19 PM EDT</td><td></td><td> </td> 02/26/2021 11:19:00 PM [facility] BLOOD COUNT COMPLETE AUTOMATED <td>CBC AND DIFFERENTIAL</td><td>Routine</td><td>02/26/2021 11:19 PM EDT</td><td></td><td> </td> 02/26/2021 11:19:00 PM [facility] COMPREHENSIVE METABOLIC PANEL <td>COMPREHENSIVE METABO LIC PANEL</td><td>Routine</td><td>02/26/2021 11:19 PM EDT</td><td></td><td> </td> 02/26/2021 11:19:00 PM [facility] EKG 12-LEAD - CMAXX REPORT <td>EKG 12-LEAD - CMAXX REPORT</td><td></td><td>02/26/2021 10:16 PM EDT</td><td></td><td></td> 02/26/2021 10:16:17 PM [facility] EKG 12-LEAD - CMAXX REPORT <td>EKG 12-LEAD - CMAXX REPORT</td><td></td><td>02/26/2021 10:16 PM EDT</td><td></td><td></td> 02/26/2021 10:16:17 PM [facility] EKG 12-LEAD <td>EKG 12-LEAD</td><td>Rout ine</td><td>02/26/2021 10:16 PM EDT</td><td></td><td> </td> 02/26/2021 10:16:17 PM [facility] EKG 12-LEAD <td>EKG 12-LEAD</td><td>Rout ine</td><td>02/26/2021 10:16 PM EDT</td><td></td><td></td> 02/26/2021 10:16:17 PM EDT [facility] Echocardiography (procedure) 02/26/2021 08:41:00 AM ED [facility] Ultrasound scan of carotid (procedure) 02/26/2021 08:3 2:[address] [facility] MRI Cervical without contrast 02/26/2021 08:09:00 AM [facility] MRI Brain without contrast 02/26/2021 07:55:[address] [facility] MRA Head without contrast 02/26/2021 07:54:[address] [facility] Computed tomography of abdomen and pelvis with contrast (pro cedure) 02/26/2021 05:08:[facility] 02/26/2021 05:08:[address] [facility] SARS-CoV-2 Rapid RNA (RT-PCR) 02/26/2021 12:00:00 AM [facility] Plain chest X-ray (procedure) 02/25/2021 10:31:00 PM [facility] EKG 12-LEAD - CMAXX REPORT <td>EKG 12-LEAD - CMAXX REPORT</td><td></td><td>01/03/2021 10:45 AM EDT</td><td></td><td></td> 01/03/2021 10:45:33 AM EDT [facility] EKG 12-LEAD - CMAXX REPORT <td>EKG 12-LEAD - CMAXX REPORT</td><td></td><td>01/03/2021 10:45 AM EDT</td><td></td><td></td> 01/03/2021 10:45:33 AM EDT [facility] EKG 12-LEAD <td>EKG 12-LEAD</td><td>Rout ine</td><td>01/03/2021 10:45 AM EDT</td><td></td><td></td> 01/03/2021 10:45:33 AM EDT [facility] EKG 12-LEAD <td>EKG 12-LEAD</td><td>Rout ine</td><td>01/03/2021 10:45 AM EDT</td><td> LBBB (left bundle branch block)</td><td> </td> 01/03/2021 10:45:33 AM EDT LBBB (left bundle branch block) [facility] pitmn LBBB (left bundle branch block) COMPLEX UROFLOMETRY <td>COMPLEX UROFLOWMETRY</td ><td>Routine</td><td>09/25/2020 9:51 AM EST</td><td> Urinary pain</td><td></td> 09/25/2020 09:51:28 AM EST Urinary pain [facility] Urinary pain TERESSA POST-VOIDING RESIDUAL URINE&/BLDR CAP <td>BLADDER SCAN, POST VOID</td><td>Routine</td><td>09/25/2020 9:51 AM EST</td><td> Urinary pain</td><td></td> 09/25/2020 09:51:28 AM EST Urinary pain [facility] Urinary pain SPIROMETRY (INCLUDES FLOW VOLUME LOOP) <td>SPIROMETRY (INCLUDES FLOW VOLUME LOOP)</td><td>Routine</td><td>09/21/2020 1:50 PM EST</td><td> Myotonic dystrophy, type 1</td><td></td> 09/21/2020 01:50:33 PM EST Myotonic dystrophy, type 1 [facility] Myotonic dystrophy, type 1 EKG 12-LEAD - CMAXX REPORT <td>EKG 12-LEAD - CMAXX REPORT</td><td></td><td>06/18/2020 2:25 PM EST</td><td></td><td></td> 06/18/2020 02:25:07 PM EST [facility] EKG 12-LEAD <td>EKG 12-LEAD</td><td>Rout ine</td><td>06/18/2020 2:25 PM EST</td><td></td><td></td> 06/18/2020 02:25:07 PM EST [facility] Endoscopy and biopsy of upper gastrointestinal tract (proced ure) 05/16/2020 08:30:00 AM EDT [facility] Endoscopy and biopsy of upper gastrointestinal tract (proced ure) 05/16/2020 08:30:00 AM EDT [facility] Endoscopy and biopsy of upper gastrointestinal tract (proced ure) 05/16/2020 08:30:00 AM EDT [facility] Endoscopy and biopsy of upper gastrointestinal tract (proced ure) 05/16/2020 08:30:00 AM EDT [facility] Endoscopy and biopsy of upper gastrointestinal tract (proced ure) 05/16/2020 08:30:00 AM EDT [facility] Results ID Date Data Source [id number] 05/19/2021 10:09:00 AM EDT [facility] [address] [place] [address] PHONE: [phone] FAX: [phone] Name .................. : ELI Long Acct Number.................. : [id number] ROOM. ................. : [facility] MR Number ................... : [id number] Stay type ............. : E/R Discharge Date......... ... : 05/18/21 Admit Date ......... : 05/18/21 [facility].... [facility] Date of ....... : 1990 Family Phys ................... : [employer] Phone .................. : Age ................................ : 30 Film# .................. .:[id number] Sex ................................. : F Unsigned transcriptions are preliminary reports and do not represent a medical or legal document CT ABD & PELVIS W/ IV ONLY [id number] COMPLETE:05/18/21 15:25 JOHN [id number] Reason(s): PENDING CMP; LUQ abd pain CT [...] anastomosis. No free Page 1 of 2 [facility] [address] [place] [address] PHONE: [phone] FAX: [phone] Name .................. : ELI Long Acct Number.................. : [id number] ROOM. ................. : [facility] MR Number ................... : [id number] Stay type ............. : E/R Discharge Date......... ... : 05/18/21 Admit Date ......... : 05/18/21 Admit Phys .................... : [facility] Date of ....... : 1990 Family Phys ................... : [employer] Phone .................. : Age ................................ : 30 Film# .................. .:[id number] Sex ................................. : F Unsigned transcriptions are preliminary reports and do not represent a medical or legal document CT ABD & PELVIS W/ IV ONLY [id number] COMPLETE:05/18/21 15:25 JOHN [id number] Reason(s): PENDING CMP; LUQ abd pain air. [...] rce(s) Supporting Document(s) ID Date Data Source [id number] 05/18/2021 11:11:00 AM EDT [facility] 1 OrderSheet [facility] Emergency Department [address] [place] [address] Phone #: ext- [phone] 05/18/2021 11:10 Patient: [...] Padmini Herman RN, RN(Oxygen?(No)) P.A.-C;(IV?(Yes)) 2 OrderSheet [facility] Emergency Department [address] [place] [address] Phone #: ext- [phone] 05/18/2021 11:10 Patient: [...] rce(s) Supporting Document(s) ID Date Data Source [id number] 05/18/2021 11:11:00 AM EDT [facility] 1 Medication Reconciliation Report [facility] Emergency Department [address] [place] [address] Phone #: ext- [phone] 05/18/2021 11:10 Patient: [...] a PRN med):USE Rx DISCOUNT CARD: $6.96, BIN:[id number], [facility]armacy - [facility] - [id number] ; [place] [address]. FaxNumber: .gabapentin 100 mg capsule Take 1 capsule three times a day for 3 days -- Dispense 9 capsule. Refills:0. Substitution permitted. Note to Pharmacy - USE Rx DISCOUNT C [place]: $4.54, BIN:[id number], 2 Medication Reconciliation Report [facility] Emergency Department [address] [place] [address] Phone #: ext- [phone] 05/18/2021 11:10 Patient: COREY CORTEZ Sex: F : 1990 Age: 30yPCN:CHIPPO, Group:[id number], ID:[id number].Pharmacy - [facility]18 - [id number] ; [place] [address]. FaxNumber: . -- Julio César Delgado P.A.-C Name Value Range Interpretation Code Description Data Renee rce(s) Supporting Document(s) ID Date Data Source [id number] 05/18/2021 11:11:00 AM EDT [facility] 1 Medication Administration Record [facility] Emergency Department [address] [place] [address] Phone #: ext- [phone] 05/18/2021 11:10 Patient: COREY CORTEZ Sex: F [...] rce(s) Supporting Document(s) ID Date Data Source [id number] 05/18/2021 11:11:00 AM EDT [facility] 1 General Instructions [facility] Emergency Department [address] [place] [address] Phone #: ext- [phone] 05/18/2021 11:10 Patient: [...] This report was requested by: Julio César Kirbynce #: [id number]. Prescription does not exceed state maximum supply [...] a PRN med):USE Rx DISCOUNT CARD: $6.96, BIN:[id number], [facility]armacy - [facility] - [id number] [place] [address]. FaxNumber: .gabapentin 100 mg capsule Take 1 capsule three times a day for 3 days -- Dispense 9 capsule. Refills:0. Substitution permitted. Note to Pharmacy - USE Rx DISCOUNT CARD: $4.54, BIN:[id number],PCN:[id number], Group:[id number], ID:[id number].Pharmacy - [facility]19 - [id number] ; [place] [address]. FaxNumber: [phone]. 2 General Instructions [facility] Emergency Department [address] [place] [address] Phone #: ext- [phone] 05/18/2021 11:10 Patient: COREY CORTEZ Sex: F : 1990 Age: 30yFollow-up:Return to the emergency department as needed. 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 Call for the next available appointment.Understanding of [...] be constant. Other common 3 General Instructions [facility] Emergency Department [address] [place] [address] Phone #: ext- [phone] 05/18/2021 11:10 Patient: [...] to improve in the 4 General Instructions [facility] Emergency Department [address] [place] [address] Phone #: ext- [phone] 05/18/2021 11:10 Patient: [...] or water and you are getting dehydrated [id number] [employer]. [address] [place] [address]. All rights reserved. This information is not intended as asubstitute for professional medical care. Always follow your healthcare professional's instructions. You have been given the following additional information: Abdominal Pain, Unknown Cause, (Female) 5 General Instructions [facility] Emergency Department [address] [place] [address] Phone #: ext- [phone] 05/18/2021 11:10 Patient: COREY CORTEZ Sex: Philipp : 1990 Age: 30y(Electronically signed by Julio César Delgado P.A.-C 05/18/2021 21:57) Name Value Range Interpretation Code Description Data Renee rce(s) Supporting Document(s) ID Date Data Source [id number] 05/18/2021 11:11:00 AM EDT [facility] 1 Clinical Report - Nurses [facility] Emergency Department [address] [place] [address] Phone #: ext- [phone] 05/18/2021 11:10 Patient: COREY CORTEZ Sex: F : 1990 Age: 30yTRIAGEArrived by private vehicle. Historian: patient.Acuity: LEVEL 3.Chief Complaint: ABDOMINAL PAIN, NAUSEA, VOMITING and DIARRHEA.Alert. No acute distress.This is a recurrent problem. (1 week). ( N/V/D for 1 week, see's GI in [place]. Pain is LUQ, sharp, hxumbilical hernias.). She has had nausea, vomiting, diarrhea and abdominal pain. No constipation orfever. 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 SEPSIS SCREEN NEGATIVE. No suspected or confirmedsigns of infection present. --11:42 05/18/21 Sonny OctoberDebra.11:31 05/18/21. BP: 113/74. MAP: 87. HR: 68. RR: 18. O2 saturation: 95% on room air. Temp: 97.5 F.Pain level now: 7/10. Describes the quality as sharp. --11:42 05/18/21 Thelma Dennis R.[place].Weight: 120.2 kg. Height/Length: 71 inches. BMI: 37. --11:41 05/18/21 ThelmaDebra.MedicationsLasix Oral, as needed. --11:38 05/18/21OctoberDebra. Potassium Chloride Oral, as needed. --11:38 05/18/21Thelma R.N. Mexiletine HCl Oral. --11:40 05/18/21Thelma R.N.AllergiesAspirin.(Anaphy laxis) --11:35 05/18/21 Thelma Dennis R.N.traMADol HCl. (seizure) --11:35 05/18/21 Thelma Dennis R.N.Reglan. (syncope) --11:35 05/18/21 Thelma Dennis R.N.PROBLEMS:Av block.UTI - Urinary Tract Infection.Gas trodysmobility.Gastritis.GI Issues.Gastroesophageal Reflux Disease.Left bundle branch block. 2 Clinical Report - Nurses [facility] Emergency Department [address] [place] [address] Phone #: [phone]- [phone] 05/18/2021 11:10 Patient: [...] factors identified. 3 Clinical Report - Nurses [facility] Emergency Department [address] [place] [address] Phone #: ext- [phone] 05/18/2021 11:10 Patient: COREY CORTEZ Sex: F : 1990 Age: 30y SKIN INTEGRITY ASSESSMENT: Skin integrity risk assessment completed. No skin integrity risk identified. --11:42 05/18/21 Thelma Dennis R.N. PAST MEDICAL HX: Last normal menstrual period- hysterectomy. --11:42 05/18/21 Thelma Dennis R.N. Interventions Identification band on patient. To treatment room. --11:42 05/18/21 Thelma Dennis R.N.PHYSICAL [id number]:30 05/18/21. Ambulatory to room.GENERAL / NEURO / [...] patient. Reviewed 4 Clinical Report - Nurses [facility] Emergency Department [address] [place] [address] Phone #: [phone] 05/18/2021 11:10 Patient: COREY CORTEZ Sex: F : 1990 Age: 30y medication(s). Prescription(s) sent electronically to pharmacy (gabapentin/dicyclomine). Patient verbalized understanding. Written instructions provided in [place] (Use meds as prescribed and f/u with [...] rce(s) Supporting Document(s) ID Date Data Source [id number] 05/18/2021 11:11:00 AM EDT [facility] 1 Clinical Report - Physicians/Mid Levels [facility] Emergency Department [address] [place] [address] Phone #: ext- [phone] 05/18/2021 11:10 Patient: [...] (N/V/D for 1 week, see's GI in [place]. Pain is LUQ, sharp, hx umbilical hernias. [...] Av block. 2 Clinical Report - Physicians/[facility] Emergency Department [address] [place] [address] Phone #: ext- [phone] 05/18/2021 11:10 [facility]: [id number] Sex: F : 1990 Age: 30yGallstone(s).Carcinoid tumor. (Removed)Myotonic dystrophy type I.Normal Exam.Myotonic dystrophy type 1.Myotonic dystrophy.Myotonic dystrophy.Sync ope.Peptic Ulcer Disease.Other Disease.Pelvic Pain.GI Disease.Av block.UTI - Urinary Tract Infection.Gastrodysmobility.Gastritis.GI Issues.Gastroesophageal Reflux Disease.Left bundle branch block.Myotonic dystriophy.Hypothyroidism.Heart Disease.Hiatal Hernia.Ovarian Cyst [Resolved].GI Bleeding [Resolved].Nephrolithiasis [Resolved].Folliculitis [Resolved].Additional Surgeries:Appendectomy.Carcinoid tumor removed.Cholecystectomy.C- Section.Endoscopy.Hemicolectomy.Hysterectomy.Left arm surgery.Loop recorder.Right hemicolectomy.Right hemicolectomy.Tubal Ligation.Upper Endoscopy.Medications: 3 Clinical Report - Physicians/[facility] Emergency Department [address] [place] [address] Phone #: ext- [phone] 05/18/2021 11:10 Patient: [...] room air.Temp: 97.5 F. Pain level now: 710. Have been reviewed.Appearance: Alert. Oriented X3. No [...] (IV); 4 Clinical Report - Physicians/Mid Levels [facility] Emergency Department [address] [place] [address] Phone #: ext- [phone] 05/18/2021 11:10 Patient: [...] Alva Sim MD05/18/2021 3:59 PM Eastern Time ([facility]). The study was interpreted by the radiologist.Laboratory [...] 2.5) 5 Clinical Report - Physicians/Mid Levels [facility] Emergency Department [address] [place] [address] Phone #: dpi- [phone] 05/18/2021 11:10 Patient: COREY CORTEZ Sex: F [...] Male GFR Interprentation 20-49 yrs >60 mL/min Jqbela67-87 yrs >56 mL/min Normal 60-69 yrs >49 mL/min Normal 70-79yrs>42 mL/min Normal 80 and above >35 mL/min Normal Female GFRInterpretation 20-39 yrs >60 mL/min Normal 40-49 yrs >58 mL/minNormal 50-59 yrs >51 mL/min Normal 60-69 yrs >45 mL/min Exoftb67-49 yrs >39 mL/min Normal 80 and above [...] URINALYSIS 6 Clinical Report - Physicians/Mid Levels [facility] Emergency Department [address] [place] [address] Phone #: ext- [phone] 05/18/2021 11:10 Patient: COREY CORTEZ Sex: F [...] Not Indicate Monospot: (DEON: 05/18/2021 13:35) ( [facility]/18[facility] 14[facility]25) Final results Test Result Flag Units (Reference) MONO TEST NEGATIVE (NORMAL: NEGAT MONO REENTER NEGATIVE (NORMAL: NEGAT { KIT LOT # [id number] ){ KIT EXP DATE 02/15/22 ){ PROCEDURAL CONTROL VALID ) CT Abd PEL W/ IV Contrast Only: (DEON: 05/18/2021 12:37) ( [facility] 05/18/2021 15:25) In Progress CT ABD Reason(s): [...] LUQ. Will order labs and imaigng for fur eval. pending results. Sts she had a colonscopy aobut 3 yrs ago and nformed she had irritation. [employer] inquries about allergies as her paperwork indicates contrast allergy. Pt had infomred me no contrast allergy. We enter together to inqurie and pt sts she has had IV contrast in the past wiht no issues or adverse effect. sts that the allergy is by ? barium and that causes upset stomach. 7 Clinical Report - Physicians/Mid Levels [facility] Emergency Department [address] [place] [address] Phone #: ext- [phone] 05/18/2021 11:10 Patient: COREY CORTEZ Sex: F : 1990 Age: 30y Reviewed [place] and noted previous IV contrast with no [...] arise. 8 Clinical Report - Physicians/Mid Levels [facility] Emergency Department [address] [place] [address] Phone #: ext- [phone] 05/18/2021 11:10 --- Patient: COREY CORTEZ Sex: F : 1990 Age: 30y Your Current Medications: Your current home medications have been reviewed. CONTINUE TAKING THE FOLLOWING MEDICATIONS: Lasix Oral : prn. Mexiletine HCl Oral. Prescription monitor program consulted by me due to This report was requested by: Julio César Delgado Reference #: [id number]. Prescription does not exceed state maximum supply [...] a PRN med):USE Rx DISCOUNT CARD: $6.96, BIN:[id number], PCN [phone] ; [place] [address]. . gabapentin 100 mg capsule Take 1 capsule three times a day for 3 days -- Dispense 9 capsule. Refills: 0. Substitution permitted. Note to Pharmacy - USE Rx DISCOUNT CARD: $4.54, BIN:[id number], PCN:[id number], Group:[id number], ID:[id number]. [facility] [phone] ; [place] [address]. . Follow-up: Return to the emergency department as needed. 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 Call for the next available appointment. Understanding of the discharge instructions verbalized by patient.(Electronically signed by Julio César Delgado P.A.-C 05/18/2021 21:57) Name Value Range Interpretation Code Description Data Renee rce(s) Supporting Document(s) ID Date Data Source [id number] 05/23/2021 10:02:00 AM EDT [facility] Name Value Range Interpretation Code Description Data Renee rce(s) Supporting Document(s) CULTURE URINE [facility] spital _CULTURE URINE_$$[id number]$$[id number]$$596153$$972034$$033527$$798874$$959606$$318238$$640791$$ 683152$$837668$$628270$$322285$$182675$$579077$$376752$$381887$$866393$$842935$$ 910875$$752251$$907238$$218807$$427217$$259463$$990675$$[id number] -- Continued on next page --Patient: ELI Long Order: [id number] Page 2Culture: CULTURE URINE Status: Final ==== -- Continued on next page --Patient: ELI Long Order: [id number] Page 2Culture: CULTURE URINE Status: Prelim =====$$[id number]$$[id number] DATE/TIME: 05/23/2021 09:06Culture: CULTURE URINE Status: FinalUrine Culture,Comprehensive: P1No growth in 36 - 48 hours. Previous result entered on 05/21/2021 12:58 ET No growth after 18-24 hours.P1 Test performed by: [facility] JOSEPH #: [id number] [address] [place] [address] [id number] [facility] [id number] Director : Jt Long MD NPI #:Lab Di miki : 05/22/21.0651.XMT.SENT REF 05/22/21.0717.XMT.SENT REF 05/23/21.1002.XMT.SENT REF ID Date Data Source [id number] 05/18/2021 02:48:00 PM EDT [facility] Name Value Range Interpretation Code Description Data Renee rce(s) Supporting Document(s) URINALYSIS [facility] manfred URINALYSIS SOURCE R [facility] COLOR yellow NORMAL: Yellow [facility] CLARITY clear NORMAL: Clear [facility] Specific gravity of Urine by Test strip 1.010 1.001 - 1.030 [facility] pH 5 5 - 9 [facility] Glucose [Mass/volume] in Urine by Test strip NORM NORMAL: Negat darrell [facility] Bilirubin.total [Presence] in Urine by Test strip NEG NORMAL: Negative [facility] Ketones [Presence] in Urine by Test strip NEG NORMAL: Negative [facility] Protein [Mass/volume] in Urine by Test strip NEG NORMAL: Negat darrell [facility] Nitrite [Presence] in Urine by Test strip NEG NORMAL: Negative [facility] BLOOD NEG NORMAL: Negative [facility] LEUK EST NEG NORMAL: Negative [facility] Urobilinogen [Mass/volume] in Urine by Test strip NOR less maura n 1.0 mg/dL [facility] MICROSCOPIC Not Indicate [facility] ID Date Data Source [id number] 05/18/2021 01:45:00 PM EDT [facility] Name Value Range Interpretation Code Description Data Renee rce(s) Supporting Document(s) Lactate [Moles/volume] in Serum or Plasma 1.9 MMOL/L 0.2 - 2.2 [facility] ID Date Data Source [id number] 05/18/2021 01:49:00 PM EDT [facility] Name Value Range Interpretation Code Description Data Renee rce(s) Supporting Document(s) CBC W/AUTOMATED DIFF [facility] COMPLETE BLOOD COUNT Leukocytes [#/volume] in Blood by Automated count 5.0 10^3/uL 4.2 - 1 1.0 [facility] Erythrocytes [#/volume] in Blood by Automated count 4.37 10^6/uL 4. 20 - 5.40 [facility] Hemoglobin [Mass/volume] in Blood 14.0 g/dL 12.0 - 16.0 [facility] Hematocrit [Volume Fraction] of Blood by Automated count 43.3 % 3 7.0 - 47.0 [facility] Erythrocyte mean corpuscular volume [Entitic volume] by Auto mated count 99.1 fL 81.0 - 101 [facility] Erythrocyte mean corpuscular hemoglobin [Entitic mass] by Automated count 32.0 pg 27.0 - 34.0 [facility] Erythrocyte mean corpuscular hemoglobin concentration [Mass/volume] by Automated count 32.3 g/dL 31.0 - 36.0 [facility] Erythrocyte distribution width [Ratio] by Automated count 12.8 % 11.5 - 14.5 [facility] Platelets [#/volume] in Blood by Automated count 163 10^3/uL 150 - 45 0 [facility] Platelet mean volume [Entitic volume] in Blood by Automated count 10.8 fL 7.4 - 10.4 H [facility] Neutrophils/100 leukocytes in Blood by Automated count 69.0 % 37. 0 - 80.0 [facility] Lymphocytes/100 leukocytes in Blood by Manual count 21.8 % 25.0 - 40.0 L [facility] Monocytes/100 leukocytes in Blood by Automated count 7.8 % 3.0 - 8.0 [facility] Eosinophils/100 leukocytes in Blood by Automated count 0.6 % 0.0 - 7.0 [facility] Basophils/100 leukocytes in Blood by Automated count 0.6 % 0.0 - 2.5 [facility] %IG 0.2 % 0.0 - 0.0 [facility] 0.0 % 0.0 - 0.0 [facility] al Neutrophils [#/volume] in Blood by Automated count 3.44 10^3/uL 2.00 - 6.90 [facility] Lymphocytes [#/volume] in Blood by Automated count 1.09 10^3/uL 0.60 - 3.40 [facility] Monocytes [#/volume] in Blood by Automated count 0.39 10^3/uL 0.00 - 0.90 [facility] Eosinophils [#/volume] in Blood by Automated count 0.03 10^3/uL 0.00 - 0.70 [facility] Basophils [#/volume] in Blood by Automated count 0.03 10^3/uL 0.00 - 0.20 [facility] #IG 0.01 10^3/uL 0.00 - 0.10 [facility] ospital #NRBC 0.00 10^3/uL 0.00 - 0.00 [facility] ospital MANUAL DIFF NOT INDICATED [facility] RBC MORPH NOT INDICATED [facility] ID Date Data Source [id number] 05/18/2021 02:25:00 PM EDT [facility] Name Value Range Interpretation Code Description Data Renee rce(s) Supporting Document(s) MONO TEST NEGATIVE NORMAL: NEGATIVE [facility] MONO REENTER NEGATIVE NORMAL: NEGATIVE [facility] { KIT LOT # [id number] ){ KIT EXP DATE 02/15/22 ){ PROCEDURAL CONTROL VALID ) ID Date Data Source [id number] 05/18/2021 02:22:00 PM EDT [facility] Name Value Range Interpretation Code Description Data Renee rce(s) Supporting Document(s) COMPREHENSIVE METABOLIC PANEL [facility] COMPREHENSIVE METABOLIC PANEL Sodium [Moles/volume] in Serum or Plasma 144 mEq/L 134 - 153 [facility] Potassium [Moles/volume] in Serum or Plasma 4.1 mEq/L 3.6 - 5.0 [facility] Chloride [Moles/volume] in Serum or Plasma 109 mEq/L 98 - 107 H [facility] Carbon dioxide, total [Moles/volume] in Serum or Plasma 23 MEQ/L 22 - 30 [facility] Glucose [Mass/volume] in Serum or Plasma 81 MG/DL 70 - 99 [facility] BUN 12 MG/DL 7 - 21 [facility] al Creatinine [Mass/volume] in Serum or Plasma 0.7 MG/DL 0.7 - 1.5 [facility] BUN/CREAT 17 8 - 27 [facility] Protein [Mass/volume] in Serum or Plasma 7.1 G/DL 6.3 - 8.2 [facility] Albumin [Mass/volume] in Serum or Plasma 4.3 G/DL 3.9 - 5.0 [facility] Globulin [Mass/volume] in Serum by calculation 2.8 GM/DL 2.4 - 3.2 [facility] A/G RATIO 1.5 0.8 - 2.0 [facility] Calcium [Mass/volume] in Serum or Plasma 10.2 MG/DL 8.4 - 10.2 [facility] Bilirubin.total [Mass/volume] in Serum or Plasma <0.7 MG/DL 0.2 - 1.3 [facility] Alkaline phosphatase [Enzymatic activity/volume] in Serum or Plasma 77 U/L 38 - 126 [facility] Aspartate aminotransferase [Enzymatic activity/volume] in Serum or Plasma 36 U/L 5 - 40 [facility] Alanine aminotransferase [Enzymatic activity/volume] in Seru m or Plasma 26 U/L 7 - 56 [facility] Anion gap 3 in Serum or Plasma 12.0 mmol/L 8.0 - 16.0 [facility] AGE 30 yrs [facility] NON-AA GFR >60 mL/min [facility] AFR AMER GFR >60 mL/min [facility] Male GFR In terprentation 20-49 [...] >32 mL/min Normal ID Date Data Source [id number] 05/18/2021 02:22:00 PM EDT [facility] Name Value Range Interpretation Code Description Data Renee rce(s) Supporting Document(s) Lipase [Enzymatic activity/volume] in Serum or Plasma 21 U/L 13 - 60 [facility] ID Date Data Source [id number] 05/08/2021 02:27:41 PM EDT [facility] Name Value Range Interpretation Code Description Data Renee rce(s) Supporting Document(s) Progress Note [facility] IZGSQo0cOfVIXnGj23/EKVcnGYPvv6PnAIskEWs1CAtmZTHaP6AsMXD8eU6xFSH1MFdBNqPpGaNyCXZx lbm [file] ICAgICAgICAgICAgICAgICAgICAgICAgICAgICAgICAgICAgICAgICAgICAgICAgICAgICAgICAgICAg ICAgICAgICAgICAgICAgICAgICAgICAgICAgICAgIC PgZKDeGYScOM5SYYSbTWYlTLBdBIGwPBQlKJKnMJAmQHGcUDTwULIhFEHdRZNiJBOkSDCoUMXxRVWiLK StRSKuUCRjYVOrDCXmXVQjYXPnIYWeADQiLTFwFNVsQYXdMCYyGHUxHOMqHRAzDFBnTY2RYJSnADErLA AgICAgICAgICAgICAgICAgICAgICAgICAgICAgICAg ICAgICAgICAgICAgICAgICAgICAgICAgICAgICAgICAgICAgICAgICAgICAgICAgICAgICAgICAgICAg RJ0PLXHyMCTsNYSdQSInRAFuEVAoPLBlTZKjNMSxYJIeWTFwSGEqNFMgLDOtOEFhPWWmAYDqZFYtHTSo ICAgICAgICAgICAgICAgICAgICAgICAgICAgICAgIC BgWPUzXUMqMIBhNE7NSDVuBWVdOQJeGMMnJSPvMJQcMGIzWIZdSBLaWPVsMIPeMEStJCUkFJPnJGMnCQ YjUCPcHLSyLYImSGXdUXCaRVRvMXMeTCVkCMSkDFAsMWQoUSYhFPIzPMKrLGQaQLXaIKShBN6YMIRcWC AgICAgICAgICAgICAgICAgICAgICAgICAgICAgICAg ICAgICAgICAgICAgICAgICAgICAgICAgICAgICAgICAgICAgICAgICAgICAgICAgICAgICAgICAgICAg RDFyIY9ERYQnYUFoFJYaZEKyNMHpATPuWQUdXKIrMRLzEEZhTFEnNQZgSUMpCDGnNYCoMHMaKFJyPXPw ICAgICAgICAgICAgICAgICAgICAgICAgICAgICAgIC MiXQSbORPcQQYkSQSzIY1MTHGqXQAaZMHsKJUiSOHtPPSaSJWlJKUuRLBrUQSxERHkNFZzOILxCMHkGA NrIHTtITMwOSSoTWNdJQCaMBLzKTWuMERpUMIxVKCmWMYtNQHzYVQuXKEhXYAoXRLkVBMoZDZdDY4IIM AgICAgICAgICAgICAgICAgICAgICAgICAgICAgICAg ICAgICAgICAgICAgICAgICAgICAgICAgICAgICAgICAgICAgICAgICAgICAgICAgICAgICAgICAgICAg YNSqTBGgIT9WGUFkWWUrNOAjBPFpHBDpMTAjAPDlNFDjONDmNBTdXNYrVSKdRSRqFCPfAUVqPPFoIKMq ICAgICAgICAgICAgICAgICAgICAgICAgICAgICAgIC HiURDwNHKyNKFsZORbIORjET6AKG44cMUec5C7JBMfUI5dwmx/Tl2SSDfjeaKkgYKoTF3UUpXeVE1wdb 4ZNyLfZE6oyk4RKEjAYjCbF4E1gHMgVABrGCIXRoPgF04iSThoYm26TDswTFXnZeFvEEh6Mc1GPdWoA2 egRPOiQkK3APIjAdZ5TNPaYzN0QZQjAfWlAMSeRVBl II9RRTPyJ122wkLpFX7PXv7PAdAvHV5zzt1OHybsTELxQryUNdh1ENgtOM4WpPUoyIJtXEWjNVWWTcEj S0cdd1VoOafuTKBPBIhzXQ4Yo7MpcSDhBLu+Lt0VSB8ik8QsBSbkMTAsTJ3vtp1BWDjDWtCwQ3FrxEff VPEzu8rhIVWxNX3ctUOfRRE0TXEnPRIbSIPybMF2TP txUPWVEiMnnQLaIB3qXH8wMQYbLOC3RsIoSGZUDC1WXRKoJNEghNQmERDmYGYKTY6KHMhuYCH8FPRhnc CvnSMhSWtaEN5AJHNqhjSmOotwBGFKFCr+Uo6EFO5az9XnGQyvTWMtFF7orn8IMSoBFxPcU0P7kGKxZ0 O7UWcbCj9VOZZfWCEcXcCaZBKEGNiuBC9LUA7lwiE8 JF6OaNCaUPJzAVXxjKKlSIr2N02gdPCbPLfmAO6OBVG+Ivett+Zu5RMOFfWGGxXMJpGrJyLVYOVzXcP0Ng G1REs2MbU2MrVA50rMjtlrCwKWccPW8PDX7wJIXmJFCBHR4NtORuoM6uegOsWIVqGBKZJvIbR46nfBXu VXTrDNF7DFVgGd3AJYJxQ3SgitDhaJeladUmXGGnPW DMOR0ARVucypHocSAeiMvlAP65gMjpMJ6BAt5ZBuQeUL9kxm3StUDiWg9DWQHyXH2SGMUxMWRlOMGkBB K8STJyFaLjNJprRQUcTXQuDSX3ODNuGLZvUP4MQqTvNNZnYTShJNruVXKhMFJqfw5KAHVzHES8Ltd8DD GbJZDtVEKsHGsfBZHgCCAyJEH0DATcHTIiCV6JJbEx INNjUJA6NTriEUCwXUSvql3CUDBcNOWtBHSuVeJmUMXxAQWiYTadTBZgMWR3GSC3HAQjMZHzGF5QOjCv DGZhLJzkDzGyQWWwAUZndk8MXGCjFIYoVbQqDZRdZJLqBAUgIIdoBPCcLSIlMCJmHMKdURWgNC3SKhUp HPOmMMJqHZYeFUBySVMjyv6FFUQfLUVwUEHnOCAnPT SzNOKtVGhrZTBaXUN6Hoj3MPXaNCItXX2OZoPzCVUhZAC2AdMsDMWbEPYmby0BHKIaQWUkRra3NUNkPT HuDVNkYOgjPSBuHYY3IiN5XUVbJHMzDS3LFtXqBOHdQTp4WYvqUUBlQPKzah0MLCDnPPTxGJYpOePqQC EcNNHfXZjeASItMGEtYjY8MTRuDAVjYC9KHmFnEUFl ZIZ3NoFkEQSjWQBgiq6WVCWcOEZ1Qwh4HQSmQXQuQYQpWZevHWNmLDL5DHydWOEjSSRqYO6FOgJeHCUo FUX9WTbuUUWdWIQbpy1GJPWpPJR0FGR2JONrLWVfAHTrVBglVLAkTKC0FPQ4JRPxQDSgDR4RTtUfTJBx GBGvBvujEFNfKHFdcc3YAPTvBDL7KjK6XXSjAZSpTJ EyAIfkEPYgBTD1FHPbBNFgQYWgMG8KTbWkNSKmTZi5XuPcBLIlZATlpy8WCOQmNFX5WCEpHnIkSXIkVG HeFWq8loUejTKmKGo2LC7SZ4FxiwWwHwBKLj0Xa412UVIdGGQqGa9TZ1wmAn1mEKFnUIZEBj7AFZs5Dq f9JPH4T3NgXBPjOIJ9LnA0MSv2TzGxQdu9OUBvYIt+ VIn6DEj8ZjRvIuJ8G1JhAZExHEY9VGDbBRT9HYvsA2G8Le8bTSBPRz7+PJhjzWAloMxuFTAUGjM4MqE9 HWuvNNWSOh5V ID Date Data Source [id number] 05/01/2021 08:57:35 AM EDT [facility] Name Value Range Interpretation Code Description Data Renee rce(s) Supporting Document(s) Progress Note [facility] LRBQMt5iGpPLEaRf77/BRIgyUTSrn3FoNUpjIBs4TUxvCPTrT1GbYBE1wK0lVMW3MWzMKkVgIrYhEZRd lbm [file] ICAgICAgICAgICAgICAgICAgICAgICAgICAgICAgIC IxYSAyYWOwQCSuTQNjEQKlMAJgFEExBQXbLAImXHTtBV7KDPBaVMTjCGGlQMJqZOUmLGOyXJEvROIiNK AgICAgICAgICAgICAgICAgICAgICAgICAgICAgICAgICAgICAgICAgICAgICAgICAgICAgICAgICAgIC QiIIOxQIVbGIVhFRFoTC9AFQMaMOXfNAJiIZZhVVMg ICAgICAgICAgICAgICAgICAgICAgICAgICAgICAgICAgICAgICAgICAgICAgICAgICAgICAgICAgICAg ABJfRPMrDWEhITXpHVLeBVOnRAKlJQKvXQ2HFYIzFZChUEHbPWVqIQNwTZPqWLJbHCHhHNKcZNSyKVTr ICAgICAgICAgICAgICAgICAgICAgICAgICAgICAgIC VuAGDmELFaKOHhANElXFMdATQjIMYpLAEzDDDrSMKaAMKjHX0BUQOrSQXzUPFoHOFnSBNaRMEvDQSwSG AgICAgICAgICAgICAgICAgICAgICAgICAgICAgICAgICAgICAgICAgICAgICAgICAgICAgICAgICAgIC JkZQEzADBmVPIcVWUdGGNmJM6JLYStTQFzTUNtOTUt ICAgICAgICAgICAgICAgICAgICAgICAgICAgICAgICAgICAgICAgICAgICAgICAgICAgICAgICAgICAg VHXyKINcMADfOGIsUPCxNGDyNLBjOBWpLAAiUS0GIPOqPNXsPCIjHJTaYTSxHRCnLZZqCECoZNZfWTGv ICAgICAgICAgICAgICAgICAgICAgICAgICAgICAgIC JoZDDxVQQlYZDcJAZkTYHgOHXzBOKeZABaHHUzGIXgLZCmKLIwRW3BFFQeMKBiXXOnEBUeLVWgNUWcFZ AgICAgICAgICAgICAgICAgICAgICAgICAgICAgICAgICAgICAgICAgICAgICAgICAgICAgICAgICAgIC RvYYDjUEKzZHCkTJGcRMFqTKDhBU5KTIXtRLBtLCVs ICAgICAgICAgICAgICAgICAgICAgICAgICAgICAgICAgICAgICAgICAgICAgICAgICAgICAgICAgICAg WWPiXZPuIPVrHOIwJYQyCTZfTZErASQkGCJdIOQjJT5SWEQzEGBsPUXkCQEjRWDpTRDyZUHiQAPsGUFc ICAgICAgICAgICAgICAgICAgICAgICAgICAgICAgIC SvPLRdANOiWYMrJWCoMFBnVDEtMXZfTONoVQNkMQYnTOFaOXIkOQVlLZ7FNM22bSPtw1J5JRLfZU6rhd c/Ms4VWRupzpVlpVObQC9WBaGuQO9lxg4OTaHiIY2rug7UUHqREdAdD3G0mSRfVYHhROXADmQqZ91gJX jnKk03YWsxKMVaZuRxYEz3Qj0WIiUzP0xsLDNfHpI9 XHHkVbU4WJEdPuE2YRGmPrUgXGRgAYPuLJOjZUDYRHI1LKUjErHcLzVkWARfAAczUMNFTV5TIcIdO2Ai tF85JMtNFt8+LCdcyiUvUqrAWnS5QKWst9LfWJj9KK6BJPNpLczfl0CbHNVlVSAMBFydME4DCNC2GSDc RFNfQc9FXEBmI384sxIdYQ3IRl0LHfDlVF4qkd6JMT CvKALeZjuWXdo6EXytVM3RoCHbAChPmv2pfhZxsrETo5NljlYlfUWTOJCxRXN5GNaiiAOaPH8CZfBuWT OvVKHaTw3zXUHdNVWnWtC6DSTPRM1DAZAcITDnxWLyYMHqEVGADU4LYIvxHFV6FAIivbUdkKJwAFmdGA 9QYXJlbnQgMzkgMCBSDQo+Vc6QPW8yw0BtNGp1OWDy ZH1ksj7OYMuZSdKzF6Q3vVLyO0H9IZenVt2ZLBRnERRdPruuLPUTNRqmVX7LVV5idaZ7ST2GdJKbPECc FYAukAJxVKn5Y98kxVTcOSizZZ7VJAG+Ivett+Zh9GHZZcFVShNRYwKvUpIHSXOvPjL6WgC2IAp1XzP9Pv XF35oZvlkjEbTJvwGI5YFQ2wOYGdSFFBGZ8JrPVkhB 3nrlXrLIIkLPSFNgRgC22zlCGgDPCvFMP9HTFrGf8QPNRxT5NtalVdiZyywtByWDVtDPLXPW1TFUlggv VvpDZwlFqrZA43oHtgST7TPz8XWlLeGC6msf9OuELkUe3ZRPO3Nf8UJEPfGUAtRUZbPSD0RUOuEcHiVX klCUZoBRHsIXO1SWJsRBHiDX7ZVoPeGKMwAQP4QFFi PFUhEJPygv8UOABkARI6LtAaYKNwGWSqBPYkVCpmTOEgIEWgTLE9YQYkDLXoTW5XFmIoOAVqJTYjCVNq RFKcGDFhce7XKJEcBOIuVNKrVNIyCTJwKFJqBUqoMNIzHQX6MFI9EVJwZPOnPP3WUqWrWXNjFByhZQKj BJStBOSgwt2VWIXuOWWpHit0FMIaNLRiPTWnYDjuHT WeJTDzVHXgWGUdPZXtCH4BTfEvJQTrSSCiJFTdGZTkNJVegl6FUYMjGQXmOoFePgBqJYTmSEGdTFfhZK OsDZU9SPc4CAGsNXToZK6BPyZvCGZoKZowNLXsSJIvQOQuzg8THKNtOGZfByBwQTNpOOTeAYMnXLxwGW NeCBJcKJIiUUMcPHAgAD2GQkFdKUKqSkY8KXraXVEq OPWhxe1BJPXgGBZpYuH3HOVaCEGiMNBaEZmoYQMbTST0ZFX5BRQxDSMzRJ8QKdUxKZPeKbdkGRVdDNQz KVBnfr3NSFVoNVNdZMHhOKZpILZyEUKcDZqsUDFhUSK2ItDzGLGpIAEgPH4MZeWgHUNcUmsoYRSiCTEs XWGdqv0ZMAMdWHGfXLL8PsUuTZAkWEGsKIboVWBjQU HhEXQ1WKOkNOIaAF6VWnXtTVRmHyL5FUUfFXJaVFEmjo8MHHPnKSK6IoN5UxPuUZAsGSQrRSgySNRyKX VaFZp2XGEnEXGaXZ1QPcYyPONfWXW1VSspJZTyWKZkvz1FJIBaWBC1Let2IqZvSNCjXCDaQKfyKQFxUG PfFXYjXLCnOBObOX4SEjUxCSGlDKDtTUkpZUKuPTCy dn2FZWSjEDS1UJDcLWWdDYExCZUbZBlgAVCnXNU9WEQvRJObMKKkTD4KZrOzMDAcHCKjUNUjBVFlTVWt rj9LCJXxODA0XIU2GEQmXWTaNRXxNLiwQJCiLSK0AiFxGVFvKBWkGA1PXzImBSOqJTRqJmYmGAMfOOAe sj6DDHIhEBE0IoB5QEUoJVYrHGDyNMsmECZfHLQ1Fh NbROVpKGDcTL6TZvNeSZCpHKu4XxFsCPOuEFOvez4HcAAsuLdddr2CXTiBLz6EmTrmQZEaSIteHh7ruW L7YFIzRGPTGs0NbgPdKISiBARWQDhoKYZeLYRwJaRxNzTaWLY1UKm7IRL4APYsAot8CTwoTSQrPXNyEh S1AMAkK0FeEvRwNtdtGIG2QoT2EpBrBNd3IDXpDXRs MmY+FF6tAFf+Rv2Ii8FvwmK1yvZwMHb4QTMqQX7LZVALO4SZLi== ID Date Data Source [id number] 04/25/2021 04:15:39 PM EDT [facility] Name Value Range Interpretation Code Description Data Renee rce(s) Supporting Document(s) Thyrotropin [Units/volume] in Serum or Plasma 4.010 u[IU]/mL 0.270-4. 200 [facility] ID Date Data Source [id number] 04/25/2021 03:46:19 PM EDT [facility] Value Range Interpretation Code Description Data Renee rce(s) Supporting Document(s) Hemoglobin A1c/Hemoglobin.total in Blood by HPLC 5.0 % 4.0-6.0 [facility] (NOTE)<5.7% Average risk of diabetes (ADA)5.7-6.4% Increased risk of diabetes(ADA)>/= 6.5% Diagnostic for diabetes(ADA) Glucose mean value [Mass/volume] in Blood Estimated fr om glycated hemoglobin 97 mg/dL <126 [facility] ID Date Data Source [id number] 04/25/2021 04:22:49 PM EDT [facility] Value Range Interpretation Code Description Data Renee rce(s) Supporting Document(s) Calcidiol [Mass/volume] in Serum or Plasma 16 ng/mL >30 L [facility] ID Date Data Source [id number] [facility] Description Data Renee rce(s) Supporting Document(s) Progress Note [facility] EIDNDo0hBpEAFaIn30/KHAzlJPXfx9FwSWuvFJy9DCxkRDNzA6LyTSF4pL6rFEO0BMnKMrGyAuFeKTKv [facility] [file] ICAgICAgICAgICAgICAgICAgICAgICAgICAgICAgICAgICAgICAgICAgICAgICAgICAgICAgICAgICAg ICAgICAgICAgICANCiAgICAgICAgICAgICAgICAgICAgICAgICAgICAgICAgICAgICAgICAgICAgICAg ICAgICAgICAgICAgICAgICAgICAgICAgICAgICAgIC AgICAgICAgICAgICAgICAgICAgICANCiAgICAgICAgICAgICAgICAgICAgICAgICAgICAgICAgICAgIC AgICAgICAgICAgICAgICAgICAgICAgICAgICAgICAgICAgICAgICAgICAgICAgICAgICAgICAgICAgIC AgICANCiAgICAgICAgICAgICAgICAgICAgICAgICAg ICAgICAgICAgICAgICAgICAgICAgICAgICAgICAgICAgICAgICAgICAgICAgICAgICAgICAgICAgICAg ICAgICAgICAgICAgICANCiAgICAgICAgICAgICAgICAgICAgICAgICAgICAgICAgICAgICAgICAgICAg ICAgICAgICAgICAgICAgICAgICAgICAgICAgICAgIC AgICAgICAgICAgICAgICAgICAgICAgICANCiAgICAgICAgICAgICAgICAgICAgICAgICAgICAgICAgIC AgICAgICAgICAgICAgICAgICAgICAgICAgICAgICAgICAgICAgICAgICAgICAgICAgICAgICAgICAgIC AgICAgICANCiAgICAgICAgICAgICAgICAgICAgICAg ICAgICAgICAgICAgICAgICAgICAgICAgICAgICAgICAgICAgICAgICAgICAgICAgICAgICAgICAgICAg ICAgICAgICAgICAgICAgICANCiAgICAgICAgICAgICAgICAgICAgICAgICAgICAgICAgICAgICAgICAg ICAgICAgICAgICAgICAgICAgICAgICAgICAgICAgIC AgICAgICAgICAgICAgICAgICAgICAgICAgICANCiAgICAgICAgICAgICAgICAgICAgICAgICAgICAgIC AgICAgICAgICAgICAgICAgICAgICAgICAgICAgICAgICAgICAgICAgICAgICAgICAgICAgICAgICAgIC AgICAgICAgICANCiAgICAgICAgICAgICAgICAgICAg ICAgICAgICAgICAgICAgICAgICAgICAgICAgICAgICAgICAgICAgICAgICAgICAgICAgICAgICAgICAg ICAgICAgICAgICAgICAgICAgICANCjw/aBHsZ6hgyBCugzQ4B8osJf7KYm6RLA7kt1NaZDOgUXmfxoQq ArwEOeFdVVAlGilIFtf2EIncLG0AgWNdP5FjA0MdYL grFD1OJZZfQXLvaXUkSIOnVBViOwP8OOOgPNdvZL9MhMKjWHgtLNTuCUFdReHdSVXnCPTbTKTkCYYqPR UYJJIfFFJeLqUxKCShVADnFCqnRAARZBK2HAZmRcAzUCtfPP0Je3UnhLD4JUp+Rr7YKW5yc5NzWJgtQR MtVT7mex1LULlRReVvR3XpeiL1HUWpGZCvFz8VFVKk XPTegKW0JGUtQOZFTzNbX2FpgD47QIETPk9+NIapbfAnOjxYHoAlNXLfs9UwOXh5EV3AMHUlERa6oYMi UIJbK9Ypf4YqMy67IPQrBlvlGq1rQVE2XKkpQ8KmuAGylFbkMZRuYMFnQA0rUr9tQXXhEBN1AwNkBBME DK6CYAFbTYTahEWxQHOdRMRMIH5OCKyuJEN3JYNdbz PyyDBmZAwjMD5XGUPiftAcBnfgWVCAPQr+Vu5LGH6nj6RiQIv5KPDgKC8tjk0CEPqFPvGvW8Y3aKNlK0 E8TVnxYa8LOBSqSBEfXtekCSSUFLtiNO7XJN8xvnC5PY5BzMWgRPNpHLBknIGyFWw6J47wuPOsWEipCV 0KICA+Ivett+Jt2NAJWcBJOsPPNgSgGiZBZTAnEuH0Fk R5YYl8MdB3RiWB90rLvfvqQlNYlvCP3BIS4bONDpGFNJUY1XpMLbnV2nwlWaETHbUBDHNuEnN92sgXLv UKCnNAN5DKVaHr0JLFVeU7ZszjWqsHwsasHlUNLiWOEYMC7XAAlacpKxeDMlrVbeFV43hKwmBO5NKt7L EeGlCT0qhj5OvMJlBo6EICU2Ye4VKFOeTYPwUBDdGC E7GSQpVeBjKDeeKEMcZXFrVDU7REIsSTAqVQ6GZbOmODRmYCT7FHZvHCHbXLYdin1BZGWsCNM2YJW2Jn ZxRAEdGWZwKVdvJKByWVQaTSL8LNAdJVVxZW3PSfBzKMPuSAQyOEMeMZTvLIWaqs4NZVQpIVHtRIBbNj TmKLNqPSEhITmbAICeOVM6JDU8EIDwFGUyJE4PBnUz CFVtNSm1ItByWTUeWBCgkt6UQSUbHJYnCTu6HjQpSWFxIOPeTKjwEYJbEDDcWHC9SZDmBUQwNW1GYrNg JCFdDONqEDEpAVEhMMMlkc9ANECsPDBtKMA5DKIhLQBeNZKcQIjuQIZsTJT0HXq6RDMxFBFlTX9VBkJe RDWwAQupIPTwESXdAZHwrg6BFVXtGDTlCHTwNRZfVV DbKUEgRLcxHDEwTXVzOhG3RYAeEIHzLY6DWfQeFTLnOyJfIeieOTMmLIPiie8YMLRqMDSzSrW7KSUfZI QoHPVdRMnrYTGrBPI1UtI2EMHlGQOzTG4ZVpYeOUHvFkY4CrFwQTByWZSpnt1ZZXXjRHUuRIp9ATOoQO HhBJIbNTxuDMBqSWU4UNchKLXkGFOfBH0NSmUtMPQv ByYsIsWxSYHsTXErph1DSARvKIGuNxWmZDNiGXKyTHUbPOalWSTgAUG6QJJ8NAWhJIHdXE8SGmNtTGDw Akc1TTWkTJJuORYvnp1DACJaKTDuZGD4SKWcUTBzHINaSCjzYFUlXKM7DmD1OKPgGTOzZV9WUaZoQOVh Ltc8RonjXKSzSONwcb0RQYXpMJZmYJqwZKUlEIAtDW YxFLeeIIGnANG4JZq1DGOuFKTyRP7MKuTyDNGzRCJ7DJfvTVEsAJAgcy4DKFWsXNS8PMDlEgMxTYVzMV BcGNibHFLyGEKtIey3GTPiEBGyQS7JYtEfHILyPTSnVrBzZOVoQFAleg7NLHIbBCK5MdCbPHOeGCPaEK WoOTxaDJNsNRPiTDu6OUFhJUHiZE9ZHsGiEGShKWPb QeYlCXPeAUJlvg1KFDBrDLC1VKDwTfOdJZSkUMYzVOmxVCAoGGL6EGd5PKCgHXLjJF6NArOwBVCaXYW7 HeyyNMUkTTCvgu9MeJUrvFkyhj9NHDgIEo1PhWdnJPDdHSmgKb6oxOL4FFZuHYKCUm7ZejOrULIgQRUZ FIwjMMOpEXTdKXloHRS4P4PhJTH4CdKbO2X9B8QiIR ipO1E2KfZ3JiO9OTQpH1A5IIQ8UvP4FXzvUAR2Zzj8BPZ4EXNhDPB7Qzw+QH5uZDg+To6Xr1CmroK9wb HoSXp2WLh2Fk2JCDITT3BSCc== ID Date Data Source [id number] 03/28/2021 08:45:00 PM EDT [facility] Name Value Range Interpretation Code Description Data Renee rce(s) Supporting Document(s) SARS-CoV-2 RNA Resp Ql HUNG+probe NOT DETECTED [facility] This lab was ordered by NESHA hicks and reported by NESHA Cordon. ID Date Data Source [id number] 03/22/2021 05:40:47 PM EDT [facility] CT ABDOMEN PELVIS WITH CONTRAST [id number] AL RESULTInterpreted by:Cindi Claudio MDCLINICAL INDICATION: Evaluate [...] rce(s) Supporting Document(s) ID Date Data Source [id number] 03/22/2021 03:37:04 PM EDT [facility] Name Value Range Interpretation Code Description Data [facility] rce(s) Supporting Document(s) Progress Note [facility] CTNUHw7tReYOInNc04/LOLtwWYPki6DjISvvQIb2QXezHHYeJ2CkITX0mR0fOHT3UKeXSaJoXxQpOJQb [facility] [file] FpCMTtBsSiUX4BRj1KFlX1COP2kYOfIb6EILRxILWEEuUjYV5PXPh= ID Date Data Source [id number] 03/22/2021 03:20:22 PM EDT [facility] NM KIDNEY FUNCTION WITH PHARM - [id number] AL RESULTInterpreted by:Alvin Marrero MDINDICATION: 30-year-old female [...] rce(s) Supporting Document(s) ID Date Data Source [id number] 03/15/2021 03:28:00 PM EDT [facility] Name Value Range Interpretation Code Description Data Renee rc(s) Supporting Document(s) History and Physical [facility] KOYILz3nCqQZMzZa02/SRIlmJEKgq6CeMEokYAf9TPdvPBKdW8VnBBC0wN0tDOM4AStYYhRdIwDdGDF9 lbm CbNigLMyXyQAQpRfxEFcKfKMnoSmtaqIFhAK6RaDY9RHRvS53nNHItJAFyQ3KsXICqURT+Lp8JLDTahP WfAA5JTinZ4O7md6k5Lj/flk6PnEbWotBzWPFuNQ1sB637ipMPmhezyGpgrqOu6vkG5lcN/vvyAfJuV9 VOZyzVeKU9kSinnP0GVe0ZCsDX1K/+r5pGjNX9Dw9x jxpbYobf3lc/nVJonF5iF/9lP0AYhYo2wV5m+Sk8x026ssc3Q5dgeFxCL2bAD3DbKB6EiVviJ363I9j6 zJY/xOBtoq1bGF6Ht9i8/nBfJdrTgfnlu+/U8X/E6mZ1BNut62Wa54H5xDzwUjC175yWq4tWWWbNbhKR 2sBO8LeaMw30MwxXRqnJ9P+5ToFISeLnDjAQZz2JU3 Uqi7/FfUiA0kr6DVYv5TbIvIKpeph9g3WHMUeSk7Sag6kxk9c5uEKAwk7mO9c9acVoUm0gSS97Fvj8tJ 3JSzWIS+N2nCUNJprukCUSHrgq2KRX8mcfB5TJmtN6r3vxHE6YcakolLb4bQ4nP5fJDgbo7B+y+eRCaJ np1jlSX3AX57ixcHbm5PsEdaMkd0R35dna7F0sVz9u hNFc9FGo5cg6c9iHVnAnu1LcE12q18z07EJaoavN6zKW4FvTacY8r4GMH3jQDcpyAvSrHe6wCAsl4VCc ayWIst2R/1SDUVyDjNA+niw89dNS4yloQuR+G8swBsSFNCXTlFVcYHMG+C6LvpcXBqD8bk3sCJ5bXF9T BuKtG7Hvlpzu2rOG2BBdwtWEA2mK0csp2p5gpSVOtA LUDox6YA6jnM+WS1oMicxS3jbAoE0UZQhXjYd/P13eTb9pGfUfkfpRsmVeuC9VoTukUlmtqGIsvNjzUS C5elppfAX3qExL9nggC0NDRfy53QsopF3JJQGNtZUFJwushIsRx8bRTRcWyN9q8w1rYr4V6F6j4GA9n0 bc8m5aN7U6MO+SN+l0o+tz944Wx/m06f3952a0us/f [file] UZqjfz2OT0MVlD4Q2bCvxAWrz23WiSDfTY+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/AYBDBWaRW38U0p/lrg16/SG6HL5i+9fncNb5cpdQU2 [file] /1tTn+LeejN4G7ySHY8vY2dZHYWVCD1Vm0nqEvI/adapted physical education aide 0Zwo3fl1A5LhBfJ2Ukb9Eq0oASxgPLUY2pDSV+5N1VncOpMHdQz6O96kwctZx8HTpX/O06sKq4oqpHtY hjHQyb4P1UjCuq2/BjQuGjltdqxJXBmkOokRvyTy3w0rvbwpOw6DvsjCWOxtr7L4PS28MUXhdipGxrlA GuGkSolGFUlI5gxwJhyNTW25laVK6d2okNsaod8yt8 BpSr2turq856gn1wmD8v97hrOAgSP9Ong87GNtfEuzI8pEEs3aY+YFEorITDG4k6zaK3D1Obt+s+Oq/P fWk8jqm6N7YkyPlbu8Gc+kPaBbXo10pTa5G1FBgG11GiOZa44JiA5/D69T7ryIDt46xFClnm3SOxb5Yb /RB5uGa11YA/Qc/q3W1+/50jid9568AFhFS7G68f8H [file] AgICAgICAgICAgICAgICAgICAgICAgICAgICAgICAgICAgICAgICAgICAgICAgICAgICAgICAgICAgIC TjHZKpAOZvQODkAHTvHDQfTGFkDF1BFSQnJNSaWCOq ICAgICAgICAgICAgICAgICAgICAgICAgICAgICAgICAgICAgICAgICAgICAgICAgICAgICAgICAgICAg VXHgIKEePUWqBVHjJSSdCYHaZLNxCQJhHSQyWEBgGY7KQBOyMUNdASZkENBqHFSeAPXoWMDsLCWaMNXl ICAgICAgICAgICAgICAgICAgICAgICAgICAgICAgIC RlZGMiMRSiCHVeYOKzQRWhIQKpYXOdIBFhONPrQEGaWAKoQNFqGWVxOR1IRFSrVPZyMPGzDUYiHLVtLU AgICAgICAgICAgICAgICAgICAgICAgICAgICAgICAgICAgICAgICAgICAgICAgICAgICAgICAgICAgIC QaSDUoYFGaPIWuRSViGXApPTHzVXCvAP7SYKEyZDUa ICAgICAgICAgICAgICAgICAgICAgICAgICAgICAgICAgICAgICAgICAgICAgICAgICAgICAgICAgICAg NULdZSHhHBThBBQtTZNvBSBzGBDvLLQoWGScIWQhBTCtSC9CGRZoUEYpWCUxNHScKFQwUXSeOWYjCXGx ICAgICAgICAgICAgICAgICAgICAgICAgICAgICAgIC OvVPLuYHXcPCItZBCuYMTqCQBhNSEvYJStAQUiDJKbRPZiMRBtKANqUOVbLS3MXJQvSDObNBGlAUCiQH AgICAgICAgICAgICAgICAgICAgICAgICAgICAgICAgICAgICAgICAgICAgICAgICAgICAgICAgICAgIC CtYQAgMZHuJAPsEEDpDSWmJLYfTHNdMVHwJR8PTIVl ICAgICAgICAgICAgICAgICAgICAgICAgICAgICAgICAgICAgICAgICAgICAgICAgICAgICAgICAgICAg XRCvFKLnOIJhNJBiASHuNRDbFYKrWSLsDSRjGOBtKBJvKQGkQR0HJDBzDTFtANPfAOYgWSYaHMPkUMHp ICAgICAgICAgICAgICAgICAgICAgICAgICAgICAgIC UuSFKsVDVcRFVnOFQvEMBeHJWeRHEhKMPiPIAiNNHuWLIfTRYdRSOfGSIlBIGgXE4WNPNoXHLbVYLeOM AgICAgICAgICAgICAgICAgICAgICAgICAgICAgICAgICAgICAgICAgICAgICAgICAgICAgICAgICAgIC RcETIbMSNlSQVqBTWhCVDdCSWiCIUpDZAcMCFiNN4M EU75cUBjd1O9BJLoAK7muix/Ce9SYVbfgqWpbKBhLL8YPqRhIY6fha1WCxEsOC6eyv7HQQdBVkYiK3K3 xMHfJLZsAVRVDgPiC72gVYzgDi93XAnhPYPzGoZbPHs1Xt8RRlRbI6fjICBcIyZ6NZLiRuR5EREvXaB4 WMEvZiNeEXSiOJAnPNCoAWZQFUV5VFFoSbFeJHonQT 0Oo8QebNQ6AFw+Bz8CXS8qu9WwBEv5VEFsOX4jzr0BXRoLGqZtU4SdjzG1SULaUIVmFt4FUQVgLPPmoC U6ZXHoSJWXFtSeE2EbzH45OHKJWn2+BKnpbqQySihKGjUyLSPdf3IhKDf8LO7RFGRyXKk4mQVfPXZPFT X3FEJorAWmIXOXIJirxLwqDM0PMPJ5VMwwCZWzKpGs ZYOpFYxzKZNXVVhQGoHwS5Jco6QwEnR6JEXqDzBqKPmjEMBiDfP4LA10hIfdMX5YCXXqRRIxFE38WMGb RYCtNo1DEd3VSiVkGB1mkd5KQKZoKHRnDrdEYck3EHnaLL9ViCHeT1KjdOWxw2oKFwTbJ2WUWMI9WBPt Ba5DNRJiBpDlUTTfAElzTH3qQMXfEBWJlEhmlfQ2ZV 4DMH0xdjZyKP1KVjNeCz6rBz1XQtAhS4EbS9WnSRHkBEAIPQqtZZ1MIFusUA8uND9Gp9DFeMKtwE6hzu 0ZBWXpIJFbCrzbbs8BZyilY4I4xCyqERWaNPZgCUCWIAujII7FINFbIUF5HGQsCUHcKONJIuJnT25lEQ 4GN3Eei58vYhP3NXGyBxHeFSrmSN57mIfkzqWhkTNl pHmtSX6TQn8+ZAaoriHsGyqOEpypOABWBzBjKDESOoKdXGTgEHQjNNZgUsY9LpUtLu6ALIMsFGClSUJx SkBhVHFgCIUsLFfaGXWiJPAcEjuwNIHyEVVpMR6RErLhULFeHpM3CfQnSFElEOBeap4LAGChWYShYYK1 TsGcEQQeWIMbPQfaEJCvDJQ0HnAyHJBhNXEaBJ1WMw VlGUTjSER8GWzwHLMiSTCccq4TKGXqFBHtOdJ3OAUzEPYmLPAsFSfhOHDdQKI5UOe9RMSwNCBaRA2EGu SkCMGcKHI7YXZnZEXoQZPfie3XYXRjZVArLJi4RQOsVXQzLXMeSJpzIXTxHGFtDSUbSLSaGJKgQD8UZw YmFUOmFOHeGXkbOQXuOTUnqc0NTAZvSKFfPdhoOYOe DCIaDCQnMFviWMXqUQU2DSV4PYVmBQGfMX9QIuLzRRRiPSd4BJNzFZDpHMIisu1HDIZnUTBqUMc1TtCj LTOtSFWdTGxiVWKeIZI3LSMpWUBiVUCfAH1HJwFfVGPcDuXbKXtaFGOdSWFhyo2FTCHaSMCwSTOiPfZs CEPuMWWhINczWQGeEZBeMbYqXUGoCMSnOI4GKzGhVD IvCpU0YgGaGENmSJAqar8EFEHwSJTeEJD4YEBrEMRbWAFlYPqrCLExEZQiIiDgDFRpSQXcKZ3LLrNtUU HlIzV0HTmoQGByADRwdq5VLEUqICZsZat7XQNhUCVkRYGnTYknTIOrOAM3Pbw7UPMrPAWfRW0YPmDrTP XlUdY9ZZPjQQIfJDWprs3YMBKeTXUnZUnaAfWdMNIr VOKmMXmsUFAcYOW2KCOuRCRuSTPfPK5JSzXwCOAdFbHjRWleRLVbZPNnkf2DURBiMVUxRwZzGxXwCJRv TPDwXSjiUWLgYJD5IHIpYGLkBRMwEQ3KXnInHKUvJmM7GRxjOOXuVLRuzf5OMULkAVB8JSm1CxXfEYHk OFEcAIttACVhIFOiFUkbUMRzEJWzQK5ZVtHnEWFpGg ClGUTxDSOeIVHtis5TBKFkUXP5LASjMEFhJFBfCHEhBRsuEIWzMOPyTumhKBKmGJNyDY4AMhRlITVoHe RzXaSfJBNzEQBnec1VIFHdKIV8UhB7MPAjQPZtLPReMRxvRGUeCMWiInDiKOQgNAXuFB0MSiTgLYVkHr Q5IBqdPSWsOBEevq1UdMIpwBqozp6ALVpOWo8TaMkn LETwQPkaOd8pkTP1BlKyKJCLCj0JhtVaMCJsFCPGVEwkPJGhYMW5ZiWhI2S2WhM5AqWmY0E4LDSoVHFm JjHxCWFmLjD3RgD1FcO9PQAuIDp0VCLaBQMeYdabVVFkGkT6GaVnWiCaSii+GE3sUQh+Kp7Mi6EbzdZ5 obLrTKm4QbB6Dz4GLIYEO6BBFq== ID Date Data Source [id number] 03/15/2021 06:17:50 AM EDT [facility] Name Value Range Interpretation Code Description Data Renee rce(s) Supporting Document(s) EKG [facility] BYJQNa4vHvKZPkQyj1DiGiGnZPUhJM5erwp5R5X8fSEtL8BitSNik0ouI4WxN2GmKLFzUEHVNE3ChIQn jb2 [file] f30qPv/9+c+n8D//+pd//PWf/vF//Wn+/PnH//jrf/vHX/a5zFD7/Mf5+Pu///Kf/xrj+WPx+eff/hamilton mJ9///7zX/+NVhEsJn5JDVspDaTphRjObBxxXAkrPi zTxw8uIoGepBWWrm1PzsZ9Uxhhwgzbk25F8MeOy8d8c5KnPmvs5e+v/XLpl9d+doTKi46u+jT1Pj742i ddv0874XyEdhNqgmm0iqMgBdcBtj+i5ZiWsvLbP0s3rvBhQwnCoP+q2cwHn0jgV5j+5izoYg3jvE0l+t Ovc3v4y5w+delXr/3q0q9e+2ZrH259z5i/ka6HbE1U 2q8h/Ut8K5V3YKi/nvBc1Y5EUuSrceMv3Y4O6nns/MeOw0C2AyNxeJ9U4LkNsvM4T4k/IahLdM7i/Yof J8gpoHYgnF5Y+eMYr3r6otKoQua1sQ+b4xxJu2gn44A+zpocXv3uqG6B+jV/bLwa+yyhOk3hwJ7x/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 r5R+Ze1XSr+q6znsI0x3vdKkdM5B3XmKplN0J52QC5 2+ar+S6SmFau7r34u6FiAnFey5fZ+a5uaUs9ki66X+rikeDp8wkY2O+rV+1+WyMP+byJ7jjj/W9qnr5g x3vD5SLd/Pz/r86AL9/GlJgd1Ys03h/egi/cdk9o1n086BZmuV+YxXcNEXu55MDeAWCeyY+kOlnDm0Uw IBMQ44FCNhh5il9IWxOkFCWQhIyMrTFiEuinCZ3i6/ uWdXVm4yNDj7z5bTeEf6dXNFygS/1UWSfdhDUgWjGEvUYImobo5gCWWHSr6GYACq+sFASLl1t1JDyZo8 cBVTsmI/bMWUrtgPXzElLPbDWEwpi/1wFlPSYj+sbSB45W7fXFOm6gQnKHkZ/XAXU/JiP+jQxR5TA18y RQF8j1WXTIi5tOoJNiM/WNbHodx8k06SBppWT1Md6g NlTMmM/hNXNtckP6xQkLVBZ2TkvNH1q6oWDD09tMsSWhX/vIlK5Sp6lbNeD8+4nAk6wH94F3ya2TtkpV Ic+9D0ezTNkedTCyqfH2JtKeTbi+xGNg47SBvcSPk+dW1q3zNvhuVSc+cO13jDUympQAlUj336gbcavD /IH5u50Jy1hIZi+2E+ptTHfriPKfmxH/ZjSn/sh/+Y UjU1NNHxTOj+OJApCbIfFmRKg+mZO9iTSfkmMiGVdD49iNaNps22NBzE5MhWvdOn/+FDrnzIf/iQKx/y Jn2nlmv6sx+58iH/4UOufMh/+JArH/IfPuTKh/dWZ5rkXt/uU467zG/6wFby4r3+5MqH/IcPufIh/+FD rnzIf/iQKx/eFv4gfpk1b3+hsCI14hRHNPc/t0dTNm l++ds9wK45udeTtd0JHftg+h2hQWy4l1o4Vkbwcw+58iH/4UOufMh/+JArH/IfPuTKh/iBR0zeJx/hQ6 58yH/9fNwh8g4+5MqH/IcPufIh/+FDrnzIf/iQKx/iLa2oqvt2sm+58iH/4UOufMh/+JArH/IfPuTKh/ aSM5spMb/uB935tI/6wScr1g3+5MqH/IcPufIh/+FD rnzIf/iQKx/oSj0lfbp5ze+58iH/4UOufMh/+JArH/IfPuTKh/cBC6lyEo/sH137mP/5vMbi4l9+5MqH /IcPufIh/+FDrnzIf/hQ/6LJKj/sgLvgQh6DUgYqXduBS3PJT+Aq43aGvEZbMwwsaxPBn7oEuG3u++Pa H9f+iDfZnZ8I+3M2R22411T/JwyFvZ0F+9B5J56701 Q/YyvFoE2R+2A5L59196R/YbaAjI8p+0J4A27280P/RorDqW1f+1G7E48874D/GxxMlM4u+2W2S4Z1M0 [file] 2HtUsuPAG4Mq8OceXbJWFlSINTQk6Xr343ORVmBGBUZty+QlwuwGVqgAihQWVQETFeZCSFOYMTU0E= ID Date Data Source [id number] 03/14/2021 06:51:46 AM EDT [facility] NT INFORMATIONPatient MRN Name Date of Age Gend*PT [id number] Corey Cortez 1990 30 years F OBSPT Location Admission Date/Time Visit ID Attending [id number] 03/11/21 0733 --- --- EPI ID CSN Admitting Provider [id number] David Gonzalez MD([id number]) Attestation signed by Derek Lynne MD at 03/14/2021 6:51 AMI have reviewed the notes, assessments, and/or procedures performed by OSIEL Felix, I concur with her documentation of Corey Cortez. [facility] DISCHARGE SUMMARYPatient Name: Corey Cortez of : 1990 Age 30 yearsPrimary Physician: Tyrone Garcia MD PCP Qyumthuuj Date: 03/11/2021 Discharge Date: 03/13/2021 leading SerafinShe will be discharged from [facility] to 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 NTG given by EMS did not provide relief. [facility]was [facility] with CP, ruled out with serialtroponins/EKGs, and underwent TTE. Loop recorder was placed during admissiongiven apparent history of syncope. Initial work up in the ED included negativetroponin, CXR showing NAD, and EKG demonstrating NSR with 1st deg AVB and LBBB(chronic).Patient went for stress test which showed questionable ischemia versus infarct,this was discussed with food safety specialist Dr. Hidalgo, who advises no furtherintervention and to keep upcoming appointment with cardiology as an outpatient.D-dimer negative.She also complained of left upper quadrant pain after eating, [facility], had a CT abdomen done which was [...] CHEST PA AND LATERALExam Date: 03/11/2021 09:45MRN: [id number] Number: [id number] Class: EmergencyAccount #: [id number] Reason for Exam: chest pain Technique: PA and lateral views obtained. Comparison: None Findings: The lungs are clear. There is no pleural effusion or pneu mothorax.The cardiomediastinal silhouette is unremarkable. No acute osseous abnormalityis seen. IMPRESSIONIMPRESSION: No acute abnormality.Procedure Performed: / NM CARDIAC GATED SPEC IMG EFWMExam Date: 03/12/2021 15:22MRN: [id number] Number: [id number] Class: OutpatientAccount #: [id number] Reason for Exam: chest pain, LBBB Technique: [...] ABDOMEN PELVIS WO CONTRASTExam Date: 03/12/2021 18:26MRN: [id number] Number: [id number] Class: OutpatientAccount #: [id number] Reason for Exam: LUQ pain, nausea, vomiting [...] 03/11/2021 MONOABS 0.3 03/11/2021 BASOSABS 0.0 03/11/2021Mirisara David NP6:49 PMTotal time spent for discharge on date of discharge: 40 minutes Name Value Range Interpretation Code Description Data Renee rce(s) Supporting Document(s) ID Date Data Source [id number] 03/13/2021 03:31:31 PM EDT [facility] Name Value Range Interpretation Code Description Data Renee rce(s) Supporting Document(s) SODIUM 146 mmol/L (136-145) H [facility] POTASSIUM 4.2 mmol/L (3.6-5.2) [facility] CHLORIDE 115 mmol/L (100-108) H [facility] CO2 26 mmol/L (22-31) [facility] ANION GAP 5 mmol/L (7-16) L [facility] UREA NITROGEN 12 mg/dL (7-24) [facility] CREATININE 0.70 mg/dL (0.60-1.00) [facility] BUN/CREAT RATIO 17.1 RATIO (10.0-20.0) [facility] GLUCOSE 77 mg/dL (70-99) [facility] CALCIUM 9.0 mg/dL (8.4-10.2) [facility] TOTAL PROTEIN 6.6 g/dL (6.4-8.2) [facility] ALBUMIN 3.4 g/dL (3.5-4.6) L [facility] GLOBULIN 3.2 g/dL (2.7-4.3) [facility] ALB/GLOB RATIO 1.1 RATIO [facility] ALKALINE PHOSPHATASE 68 U/L (45-117) [facility] BILIRUBIN,TOTAL 0.4 mg/dL (0.0-1.0) [facility] PLEASE NOTE:Total bilirubin results may be falselyelevated in patients taking Eltrombopag. AST (SGOT) 16 U/L (11-39) [facility] ALT (SGPT) 24 U/L (12-78) [facility] GFR >60 ml/min/1.73m2 (>59) [facility] GFR ( AMER) >60 ml/min/1.73m2 (>59) [facility] GFR INTERPRETATION [facility] --NORMAL KIDNEY FUNCTION OR MILD DISEASE - GFR >OR= 60CHRONIC KIDNEY DISEASE - GFR 15 - 59RENAL FAILURE - GFR <15 Est. GFR calculation based on the MDRDstudy equation, which assumes a steadystate for creatinine. Est. GFR should notbe used for medication dosing. ID Date Data Source [id number] 03/13/2021 03:07:33 PM EDT [facility] Name Value Range Interpretation Code Description Data Renee rce(s) Supporting Document(s) WBC 4.2 10*3/uL (4.1-11.0) [facility] RBC 4.02 10*6/uL (4.00-5.40) [facility] HGB 13.0 g/dL (12.0-16.0) [facility] HCT 39.0 % (36.0-47.0) [facility] PERFORMED AT [address] [place] [address] N [place] [id number] MCV 97.1 fL (80.0-95.0) H [facility] MCH 32.4 pg (27.0-32.0) H [facility] MCHC 33.3 g/dL (32.0-36.0) [facility] RDW 13.6 % (10.5-14.5) [facility] PLT 153 10*3/uL (150-450) [facility] MPV 9.3 fL (7.1-10.7) [facility] ID Date Data Source [id number] 03/13/2021 03:31:31 PM EDT [facility] Name Value Range Interpretation Code Description Data Renee rce(s) Supporting Document(s) LIPASE 70 U/L (65-230) [facility] ID Date Data Source [id number] 03/12/2021 06:31:10 PM EDT [address] [address]Rdriesv Name: COREY KELLEYB: 1990Sex: FOrdering Provider: CINDY SOAuthorizing Prov: CINDY SOReferrgee Provider: Procedure Performed: / CT ABDOMEN PELVIS WO CONTRASTExam Date: 03/12/2021 18:26MRN: [id number] Number: [id number] Class: OutpatientAccount #: [id number] for Exam: LUQ pain, nausea, vomitingTechnique: Helical [...] SURY PARMAR On 03/12/2021 6:31 PMWorkstation ID: [id number] Name Value Range Interpretation Code Description Data Renee rce(s) Supporting Document(s) ID Date Data Source [id number] 03/13/2021 11:08:45 AM EDT [facility] Name Value Range Interpretation Code Description Data Renee rce(s) Supporting Document(s) SODIUM 144 mmol/L (136-145) [facility] POTASSIUM 4.5 mmol/L (3.6-5.2) [facility] CHLORIDE 112 mmol/L (100-108) H [facility] CO2 26 mmol/L (22-31) [facility] ANION GAP 6 mmol/L (7-16) L [facility] UREA NITROGEN 12 mg/dL (7-24) [facility] CREATININE 0.69 mg/dL (0.60-1.00) [facility] BUN/CREAT RATIO 17.4 RATIO (10.0-20.0) [facility] GLUCOSE 67 mg/dL (70-99) L [facility] CALCIUM 9.0 mg/dL (8.4-10.2) [facility] TOTAL PROTEIN 7.2 g/dL (6.4-8.2) [facility] ALBUMIN 3.7 g/dL (3.5-4.6) [facility] GLOBULIN 3.5 g/dL (2.7-4.3) [facility] ALB/GLOB RATIO 1.1 RATIO [facility] ALKALINE PHOSPHATASE 78 U/L (45-117) [facility] BILIRUBIN,TOTAL 0.5 mg/dL (0.0-1.0) [facility] PLEASE NOTE:Total bilirubin results may be falselyelevated in patients taking Eltrombopag. AST (SGOT) 19 U/L (11-39) [facility] ALT (SGPT) 27 U/L (12-78) [facility] GFR >60 ml/min/1.73m2 (>59) [facility] GFR ( AMER) >60 ml/min/1.73m2 (>59) [facility] GFR INTERPRETATION [facility] --NORMAL KIDNEY FUNCTION OR MILD DISEASE - GFR >OR= 60CHRONIC KIDNEY DISEASE - GFR 15 - 59RENAL FAILURE - GFR <15 Est. GFR calculation based on the MDRDstudy equation, which assumes a steadystate for creatinine. Est. GFR should notbe used for medication dosing. ID Date Data Source [id number] 03/13/2021 10:40:27 AM EDT [facility] Name Value Range Interpretation Code Description Data Renee rce(s) Supporting Document(s) WBC 4.8 10*3/uL (4.1-11.0) [facility] RBC 4.25 10*6/uL (4.00-5.40) [facility] HGB 13.7 g/dL (12.0-16.0) [facility] HCT 41.5 % (36.0-47.0) [facility] PERFORMED AT [address] [place] [address] N [place] [address] MCV 97.7 fL (80.0-95.0) H [facility] MCH 32.3 pg (27.0-32.0) H [facility] MCHC 33.1 g/dL (32.0-36.0) [facility] RDW 13.5 % (10.5-14.5) [facility] PLT 157 10*3/uL (150-450) [facility] MPV 10.2 fL (7.1-10.7) [facility] ID Date Data Source [id number] 03/13/2021 11:08:45 AM EDT [facility] Name Value Range Interpretation Code Description Data Renee rce(s) Supporting Document(s) LIPASE 87 U/L (65-230) [facility] ID Date Data Source [id number] 03/12/2021 08:35:02 PM EDT [facility] Name Value Range Interpretation Code Description Data Renee rce(s) Supporting Document(s) D-DIMER,SENSITIVE 0.32 mg/L (<0.50) [facility] ID Date Data Source [id number] 03/12/2021 03:47:35 PM EDT [address] [address]Eqtyuyd Name: COREY KELLEYB: 1990Sex: FOrdering Provider: ROSA GUZMÁNAuthorizing Prov: ROSA GUZMÁNReferrgee Provider: Procedure Performed: / NM CARDIAC GATED SPEC IMG EFWMExam Date: 03/12/2021 15:22MRN: [id number] Number: [id number] Class: OutpatientAccount #: [id number] for Exam: chest pain, LBBBTechnique: Pharmacologic stress [...] QUINCY DEAL On 03/12/2021 3:47 PMWorkstation ID: [id number] Name Value Range Interpretation Code Description Data Renee rce(s) Supporting Document(s) ID Date Data Source [id number] 03/12/2021 08:14:38 AM EDT [facility] Name Value Range Interpretation Code Description Data Renee rce(s) Supporting Document(s) EKG [facility] POQZUs9pHiSMQhTjm4YkBrHrTUIjPC6udcu8X9B1mDVhX7OslNPes7rcK7NpL8CzFWUsPCMWXO8EnGPw jb2 [file] f30qPv/9+c+n8D//+pd//PWf/vF//Wn+/PnH//jrf/vHX/a5zFD7/Mf5+Pu///Kf/xrj+WPx+eff/[place] mJ9///7zX/+NNyApFy9WOWzkLtKdjWvLsJbeCQipKk gWie0eVuBtvNBHxb5FqjQ9Cdfrodbwi19G0VtOq5d7i2AbCrsz4x+v/XLpl9d+apEOe35m+kJ6Xd113x cei2017XhAksSomji6zvMcQgtKdu+g2DoTxhQdC9y3znRiXcdNbC+f0ylTm0beX4n+0hxnPh6xeL0i+t Jbx0n9y9v+delXr/3q0q9e+1AkR941z3m/wd8UtS1G 2q8h/Gv3V8S5ZGf/cqOy0Z5QGuJitpLh9V2M5oyq/SfCa8L0XuLcsI0Y8XgRghB8M1d/AjiOwR8m/Yof G8jvsTZkfG0J+oISp8t9wfKwGch5bW+h9blMd1az75B+arxoBo8omA6U+jV/bLwa+nxwKi2wlZ3s/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 r5R+Ze1XSr+m0aonM4s7gjTblI4B9EiNleX9V46VT2 2+ar+S0NkDgj7n33c7JcGmJgu0yU+x6ffKl3kh94L+swtkMa6bhE8S+rV+1+WyMP+vwA7rol/R2gbu2y r1rP0VMu/Pz/r86AL9/EzZvs8Ui06k/egi/jnc9o2a509GJcqM+YcMdQITl38KSxYCOcqG+pQidWh5Fe ERYD71RJTlc5xe7JUnMaPYWIdYkIyIVlKnbxAD1l8/ kLwPTo8aZSt5a4kYgLc7rWJNziK/5EGLzxtFTyBfJFzBWGnlnp7bRCUYVa4LTJCx+qNBVSg2t7ZJzWh7 cBVTsmI/bMWUrtgPXzElLPbDWEwpi/1wFlPSYj+goPQ31H2xBXNv2cBbRXxU/XAXU/JiP+zWhM9GR02g OQJ0p7HYELa2hGaAClN/ZYsLqnx9c55EKztFO1Lz6k NlTMmM/rZXIawrZ6fViGZYH3BecOK1e4iCTV22aIjQVtR/jHuJ5Cv3jjHyE3+0zEy0jD25R1vl9IifqC Ic+9V3jdNMlscVZxldQ3ZxNpCcu+gQTo37WWetVOa+kD4r7pEvvvVUc+zP02bPKvahHUzBe895tabuvB /PE8g27Up9sBWu+2E+ptTHfriPKfmxH/ZjSn/sh/+Y LwP3NASmEGp+OJApCbIfFmRKg+hYM7pJQptcJjJCeS00dOmIqk22BDkE1UsRegSn/+FDrnzIf/iQKx/y Ku5wvxv2sv+58iH/4UOufMh/+JArH/IfPuTKh/cKI4gzQt/aJ255dI/7hZet6t3+5MqH/IcPufIh/+FD rnzIf/iQKx/sVc1wpju0i1+jsIN66fLXQWv/t0dTNm l++zb8rG21acwFwf2JVnif+z3zETc9p0o1Lgkotq+58iH/4UOufMh/+JArH/IfPuTKh/aUJ5kyGm/hQ6 58yH/8wCpt8f8+5MqH/IcPufIh/+FDrnzIf/iQKx/pDc8lahe8rw+58iH/4UOufMh/+JArH/IfPuTKh/ lSY5bnOc/dR348aA/6vXpx3b0+5MqH/IcPufIh/+FD rnzIf/iQKx/sQa7zqbl1ac+58iH/4UOufMh/+JArH/IfPuTKh/vGZ9azPf/uN355hU/5mOpw4s9+5MqH /IcPufIh/+FDrnzIf/hQ/6LJKj/wgGilVf3JDcNuUomMH5EFB+Kj57ePzKYvRcdntsHHx1dLnX3l++Pa H9f+fSeCcD4C+3O1B09036G/PzjGyP4G+1Z7B91410 Q/VwiNcL2S+7M1O79452U/RxgIjX6o+9R9T83287N/TbgCuT2w+5S0P11780Y/McfEzO4x+6S8C5P0O6 [file] FiGXdoVR5qwpHmCKDiEvplJl6auXJ1PYOdIdcMWi7Ov8YcnhR4keBeDcZ5RJJ9OkHrFR4Z ID Date Data Source [id number] 03/11/2021 09:00:30 PM EDT [facility] Name Value Range Interpretation Code Description Data Renee rce(s) Supporting Document(s) POC CTNI 0.01 ng/mL (0.01-0.07) [facility] Less than 0.08: Myocardial injury unlike lyGreater than or equal to 0.08: Highlysuggestive of myocardial injuryCorrelation with rise and/or fall ofserial troponins, clinical symptoms,and ECG changes is necessary.PERFORMED BY [facility] CLINICAL STAFF ID Date Data Source [id number] 03/11/2021 05:48:34 PM [facility]T [facility] NT INFORMATIONPatient MRN Name Date of Age Gend*PT [id number] Corey Cortez 1990 30 years F OBSPT Location Admission Date/Time Visit ID Attending [id number] 03/11/21 0733 --- Herminia Oconnor MD([id number]) EPI ID CSN Admitting Provider [id number] David Gonzalez MD([id number]) Attestation signed by Tj Bull MD at 03/11/2021 5:48 PMED Attestation:Attestation Type: I was the attending physician on duty at the time the patientvisited the ED. The patient was evaluated by the PA/CHORUS MASTER. I was personallyavailable for consultation: However, I [...] inpain. Patient was hospitalized in 02/23/21 [facility] for chest pain and hadserial trops, echo, and loop recorder due to ? Near syncope episode in thesetting of LBBB. She is currently prescribed lasix 20mg q daily which she hasbeen taking. Follows with Dr. Roldan with cardiology at [facility]. Never had ancardiac stress test per patient.Denies [...] rhythmComments: LBBB (baseline) 1st degree heart block [place] [address] [address]Fhwsysx Name: COREY KELLEYB: 1990Sex: FOrdering Provider: FRED MUSEAuthorichun Prov: FRED MUSERefmichael Provider:Procedure Performed: / XR CHEST PA A ND LATERALExam Date: 03/11/2021 09:45MRN: [id number] Number: [id number] Class: EmergencyAccount #: [id number] Reason for Exam: chest pain Technique: PA [...] electronically signed by BREEZY Gipson, 03/11/21 8:55 AM.BREEYZ GipsonNurse PractitionerRachel Mena Bull Name Value Range Interpretation Code Description Data Renee rce(s) Supporting Document(s) ID Date Data Source [id number] 03/11/2021 05:01:56 PM [facility] NT INFORMATIONPatient MRN Name Date of Age Gend*PT [id number] Corey Cortez 1990 30 years F OBSPT Location Admission Date/Time Visit ID Attending [id number] 03/11/21 0733 --- David Gonzalez MD([id number]) EPI ID CSN Admitting Provider [id number] David Gonzalez MD([id number])Inpatient History & PhysicalCorey CortezMRN:[id number] and Plan:Principal Problem: Chest painChest Pain- HEART score of 3-EKG showing NSR with LBBB, troponin negative and will repeat- CXR showing no acute disease-will get Lexiscan stress test-telemetryDVT Prophylaxis-LovenoxCode Status-full code per patientChief Complaint: chest painHPI: Corey Cortez is a 30 year old female with a PMH of dilated cardiomyopathy,myotonic dystrophy, JOSE, history of seizures who presented to [facility] ED with chestpain. [facility] states that she was having a sleep study yesterday and woke up thismorning with elft sided chest pain. She states the pain is pressure like,constant and moves to his left arm. She states the pain is associated with somediaphoresis. Corey presented to [facility] ED for further evaluation and management.She denies [...] rce(s) Supporting Document(s) ID Date Data Source [id number] 03/11/2021 10:18:22 PM EDT [facility] Name Value Range Interpretation Code Description Data Renee rce(s) Supporting Document(s) TROPONIN I <0.05 ng/mL (<0.05) [facility] [place] Less than 0.05: Myocardial injury unlike lyGreater than or equal to 0.05: Highly suggestive of myocardial injuryCorrelation with rise and/or fall ofserial troponins, clinical symptomsand ECG changes is necessary. ID Date Data Source [id number] 03/11/2021 02:19:22 PM EDT [facility] Name Value Range Interpretation Code Description Data Renee rce(s) Supporting Document(s) POC CTNI <0.01 ng/mL (0.01-0.07) L [facility] Less than 0.08: Myocardial injury unlike lyGreater than or equal to 0.08: Highlysuggestive of myocardial injuryCorrelation with rise and/or fall ofserial troponins, clinical symptoms,and ECG changes is necessary.PERFORMED BY [facility] CLINICAL STAFF ID Date Data Source [id number] 03/11/2021 08:19:20 PM EDT [facility] Name Value Range Interpretation Code Description Data Renee rce(s) Supporting Document(s) TROPONIN I <0.05 ng/mL (<0.05) [facility] [place] Less than 0.05: Myocardial injury unlike lyGreater than or equal to 0.05: Highly suggestive of myocardial injuryCorrelation with rise and/or fall ofserial troponins, clinical symptomsand ECG changes is necessary. ID Date Data Source [id number] 03/11/2021 10:41:52 AM EDT [facility] Name Value Range Interpretation Code Description Data Renee rce(s) Supporting Document(s) POC CTNI 0.01 ng/mL (0.01-0.07) [facility] [place] Less than 0.08: Myocardial injury unlike lyGreater than or equal to 0.08: Highlysuggestive of myocardial injuryCorrelation with rise and/or fall ofserial troponins, clinical symptoms,and ECG changes is necessary.PERFORMED BY [facility] CLINICAL STAFF ID Date Data Source [id number] 03/11/2021 12:44:47 PM EDT [facility] [place] Name Value Range Interpretation Code Description Data Renee rce(s) Supporting Document(s) SODIUM 142 mmol/L (136-145) [facility] POTASSIUM 3.5 mmol/L (3.6-5.2) L [facility] CHLORIDE 109 mmol/L (100-108) H [facility] CO2 27 mmol/L (22-31) [facility] ANION GAP 6 mmol/L (7-16) L [facility] UREA NITROGEN 13 mg/dL (7-24) [facility] CREATININE 0.85 mg/dL (0.60-1.00) [facility] BUN/CREAT RATIO 15.3 RATIO (10.0-20.0) [facility] GLUCOSE 88 mg/dL (70-99) [facility] CALCIUM 9.2 mg/dL (8.4-10.2) [facility] TOTAL PROTEIN 8.3 g/dL (6.4-8.2) H [facility] ALBUMIN 4.0 g/dL (3.5-4.6) [facility] GLOBULIN 4.3 g/dL (2.7-4.3) [facility] ALB/GLOB RATIO 0.9 RATIO [facility] ALKALINE PHOSPHATASE 82 U/L (45-117) [facility] BILIRUBIN,TOTAL 0.6 mg/dL (0.0-1.0) [facility] PLEASE NOTE:Total bilirubin results may be falselyelevated in patients taking Eltrombopag. AST (SGOT) 22 U/L (11-39) [facility] ALT (SGPT) 36 U/L (12-78) [facility] GFR >60 ml/min/1.73m2 (>59) [facility] GFR ( AMER) >60 ml/min/1.73m2 (>59) [facility] GFR INTERPRETATION [facility] --NORMAL KIDNEY FUNCTION OR MILD DISEASE - GFR >OR= 60CHRONIC KIDNEY DISEASE - GFR 15 - 59RENAL FAILURE - GFR <15 Est. GFR calculation based on the MDRDstudy equation, which assumes a steadystate for creatinine. Est. GFR should notbe used for medication dosing. ID Date Data Source [id number] 03/11/2021 12:44:47 PM EDT [facility] Name Value Range Interpretation Code Description Data Renee rce(s) Supporting Document(s) MAGNESIUM 2.3 mg/dL (1.7-2.4) [facility] ID Date Data Source [id number] 03/11/2021 12:44:47 PM EDT [facility] Name Value Range Interpretation Code Description Data Renee rce(s) Supporting Document(s) LIPASE 78 U/L (65-230) [facility] ID Date Data Source [id number] 03/11/2021 11:57:37 AM EDT [facility] Name Value Range Interpretation Code Description Data Renee rce(s) Supporting Document(s) WBC 4.6 10*3/uL (4.1-11.0) [facility] [place] RBC 4.51 10*6/uL (4.00-5.40) [facility] HGB 14.5 g/dL (12.0-16.0) [facility] HCT 43.9 % (36.0-47.0) [facility] MCV 97.5 fL (80.0-95.0) H [facility] MCH 32.2 pg (27.0-32.0) H [facility] MCHC 33.0 g/dL (32.0-36.0) [facility] RDW 13.5 % (10.5-14.5) [facility] PLT 169 10*3/uL (150-450) [facility] MPV 9.4 fL (7.1-10.7) [facility] NEUT % 65.2 % (35.0-75.0) [facility] LYMPH % 27.9 % (16.0-52.0) [facility] MONO % 5.5 % (0.0-8.0) [facility] EOS % 1.0 % (0.0-5.0) [facility] BASO % 0.4 % (0.0-4.0) [facility] NEUT # 3.0 10*3/uL (1.8-7.7) [facility] LYMPH # 1.3 10*3/uL (1.2-4.8) [facility] MONO # 0.3 10*3/uL (0.0-0.8) [facility] Eosinophils [#/volume] in Blood by Automated count 0.0 10*3/uL (0.0-0 .5) [facility] BASO # 0.0 10*3/uL (0.0-0.2) [facility] ID Date Data Source [id number] 03/11/2021 12:14:07 PM EDT [facility] Name Value Range Interpretation Code Description Data Renee rce(s) Supporting Document(s) HCG, QUAL. SERUM (NEG) [facility] ID Date Data Source [id number] 03/11/2021 12:44:47 PM EDT [facility] Name Value Range Interpretation Code Description Data Renee rce(s) Supporting Document(s) NT PRO BNP 125 pg/mL (0-125) [facility] ID Date Data Source [id number] 03/11/2021 10:12:49 AM EDT [facility] Name Value Range Interpretation Code Description Data Renee rce(s) Supporting Document(s) EKG [facility] APZKYh0qHyWMDwEdf5YmZcVaEKRsFV7ygku6N8E1pRXqO5WnhBOgs8kxH7YaB6HzCMXgZOOPMK8DlCWz jb2 [file] 5W0BN6ox7QRWc453r1S5Z5IA/m3dNHJ+mVYxlYD5knOO0ez3qjDZ0M8Iq/PBw4ktH+nfcJXQvwUs+Angel Luis [file] 932D/Maria Del Carmen+U9rtEYcLXcBAxCP0bG2td+auL/dNh/dGrZvu33L/E/zNBQoIQmTva3bYcXsaIrWpR+SE+hW H/FNgoq5W2i/1D3AWH/AFGuCgO7sNsOrEclNaU/aM0F2fW0pCm/dVl/dW5/opx4/orsKy/Ysvf4eEg+6 z5q8+exzyqY72+e32+SJw4TZa92MA/4J5h/8T71aF/ XGgg0umeHQx3PEk1/HCekB/+7hT7QtQ/HTj76V0U/7ItC7vZ9V+h6zh62TI/W+Rni/oykP9o1zG5Ybm1 Ve1WL63J7F/xKjkR/mSmrz6p6A/BUlqqR8dCh5IuQ3K+Fv8HRUc70Ci6YUabU7yBy/uRYW4DDN5OO/kZ 0D/c6wdbuTvo/4S9OmD/AMP+CHxfcJ3pxC7quytwVu 7p1ilpPe9wMHoYrhAnJO8Sv1382sp5GftwsudH1/vvH6jH6pECQO6uyxOc+nSc0jexG+NEMHPsNH+mU5 zn6p/54/9+8vOZP/d30r3kalpkv4t2zOkth3tjGQ+HL1evvmO5KC/VFzRGOMCijEMEI9D/+TMrYtyu/p zjKJK8k+zF1kl2j0184vr/7vj8yk+WLRwWMM90X/H/ oD4exirdJ2nzlbd31IPn4Zuko5glAzqIpvwMwkWs4ynWjvd92DuFKeaANorOY6dDQI9kjM0DUd5q89rD pl0U+8iJQ/3lfra0ttrrT4tsR7LiuUGZcc0eFDbxxBF26SJ/sFdj+/jhsJ/xHoX+eq3Lr7b934LpkKWo 0JvUxa8AH4inkZ1ZzmZ4rR4N+0mgB1ex7P/YlrFl/L QFJkjV50hzP0pH9F/EU3DYz/z+XnUe2M/353py8s9OJeO/Y+lF50aFBtFWhZy+pClK7N55woW3P0Kljo 4ZE5+H/IRsz9A/kMkZ+gc+7bg0A1nIPfoVoG2osc71y2h4g9zW+n3C/nHg8+mROjxr0CXK/hH7AbJRcC 2SnPwN5h+7cMxf/A7mL3y+BZ/CsH+I/z9iy0Z4Ocj/ wXdi/sI9w/3Zz5B0z91l/ppi/0zYP/HuT9g/GB/DC1Jvst8H1b/gjQGu0RG/T/qfgeE/Rea/A/yP1ZY7N rmD/4DnC/iHugmP+Il6CY/7tDyRp4d1Q4j743A6jK2aI+2dOkR+ip7sFX9Gqvyy6N3R/jcTosdTxC45A Pxhn2D/EYxeegtcpvAWX/Txh/+ECerov7xLbZPJAd9 T5I5hQ7C9B8T5g7v0S+2eK/TPF/pli/9lXT0tn4L/yMZbeh8cOxEX+zRBmpL1fpHk1n7ysf0ilkzyvfs 41k840fu0d1TIsF/WoEGoB9HB5I24c3S/T061v5CKr6PCtg/+G/BCX/vls0cBp4q5wY//x1fn6j2Nj1O /14bf53d7H+of4FKb/GdgFl/df4B14M+cz2hm8Na6n cKuP5sy3i8X+XU83l3B/iLvgUWMC/PJ1lcsk/2tB/8KrLh0xGJlnuj+hf/B5yE/QSbp1vtUA64MvuL+I Q374/Ss/LeycFfoH/swV+ujVruu92h/30szAn/r2BkZi38W28hz2k/8PvsZRK9tHyBe4185R+M6+PlWM 29U/3/XiWlf/yULhpExtl94myZVi/fQJTrJvc79nl1 3ykrbM6byjYj/RuvonlOLF6/lX19U/197vM0u+RhOZdfXPRDOyFfoH/t4V+sd++PzKj+M9Ev/lCz3Gzq h2cj5ij46clS3b2SOv1K3f0QR5F/QSE1gRY/QP/GMr9A/phqD1P9ryPb9NsY79Svwiuq3+D/sn7MkN+y d+74b9E+/6uk7X3WT7fnI/BH1Au84tMIbcFIrLjjWE /rvj8/UpXcjiSyTzY70mjuBK/zDkcIf+gS26Q//AQj0zh5WLut382EflL1t+O/QPbMId+bpvd9ekQq9J eD7/4x12u7uJas90Ua6mjHjaSqf//+qG/rn1Hq1wQ1oFwepbqx461Ynq/zkw/M8YW/if8UxD/0AGdugf 2Kg79A/kaof+gY26Q//RJq6wh7MzoiqufN489Q/uE/ oH4y/rry3+gs44Z2n5B7Awtp+1Zf9rc/1A1dzCWj2Be/bGzZE7P3h1L4cFRx2nSLh1nXAOoeX/bdg/uD mOT4PO5O/4jbR/4reL/bPF/ecb8i223L78C0y/xOf5V/ehLMC5NLFrik31OmnqA+L5/Ksb+rotBg3FuO rD/rX7tB91ckJkwR9/b9l/37L/vmX/fZ+PgrE794lu erV62qi4F9Y/Y3W4/w5c++9H9t+V0V0x5m1h1o1d2N/ErRXugkcvPAXX/vuR/fcj+++H++/LSlrJ4qY/ jnfBJT/Hp+Cyn4/svx/xPx/YP/jtsH+IW40J/c/4/jfryW1CjWEgFkAtr+67cGD/cNynHG6ArN8n3gO+ Li0Dqmv4LQu24YsHu5xbxj2+ZP/9jPIfHon/OYz/iX lgJnM9OQ1Pr/62nY76dL64gC28ixfRISkOOq2O1PgSZ5sNY7oJQ3diy6Vz/jqy/jqy/jqy/364/x7X4v 4XcOmfI+uvI+uvI+uvs0V+tsjPFvmB/sH5qX/nrlxTZj15j0UoHbZ/iM/vRf8gfeookzhttM9Xy9qNV1 NrLGte3R1siewbi4CdbF/QWLo917xIwCX5tDoHcZI9 0dTaD85tfn8x228b1Rb3iiUe43tBi9M3vhMrwOx5Fu2TE4vXfkV9o6G2giCeosi4Jnzd+aOm65Xl1caA pITqaL9tZA+XqmtjbvcEdsIN0y3FNldhvvhcFNn/bkHctICFHPBODoQUZfs8GRAJmZHFDd3FSms2Dt5j +6SBywU9YvDkX1xF3BhABZAZQ/B67vng59La6KqAn/ bvpx1XcE5Our22XvbG591HiWpuT3jaHopDJBKijdLcDYKC+ExhJzmP+CvUma680ae/Uc2DrvVde2rz0L zMI+IpSEJoLkBSv1mf39tCfmyiYrg7fIy7Rfr+8Xr79OyvKv1cO9i99gN9EkOmucv6VbPRG4TTU/dJTI tpGuR1fuLimJBHvkxMkwkk3+rI6vI/SZWpIoVF0u1d qvNvPwc7qvpjdkHJgR5X5MNcm74Uctu+0GDRDULSBXSuJnQUFKwMU2OiNP9FBMMgdcnrd9UxtJQjNY8V ayjwV0RRo1yiVfJysCc+c+JVsh/aZzcS2sggScnp/l26cpunJ8f7p623+2vcrh1we01+Vjk5t72x+0mA gG6JlR8Ax8JhX9+UkWUmu/yj9RomlO0NDn0vngAUZD u3+zh9pJbBQMvNdfGTihoONoWnmZHTjVaFwZtsSFRXnowbNnzcnUL6/OeDIkrQwFTsjgQ74H7N+CKB9Z DDtIIk1EAhgYLTViXgXDmGMEcRMBmtMHoN91KYasCN+NvANEZiJ+rWdkWiuNn7wnc17XuCHhzZQiCxCe wCx8lMzifApSXTgawEIsJPzMDWgqfAYGu0u8oLhV3b r30Q9XCwXwwU6gkF1fV2B9KATnOPJvuSawtVhdRsRzMRyYoOEwm5Dpo/4a6TgFNKmQGbIi2JcH3nEKKy JkRzzrCs4wkR0khsPFIWf/Il8LQ2S/0p8fG8V/6g8qb6Cg0nOnz1yJXTumxOHhJrSB5J45S23brsBFOk U4wQTBOnSz7YaGZnLSmzIE5VQWhppjBKdyDbMPznKI dsQNe0mWZJIneDfNZXlSzEwrnZSRubrq4D+56LRXdIAaGG5ielFxSoZBSaIWgVk6joMpv4L84C3s1kYk BMbCWH0sPryDFlawEQoa7oFCen2nl6/gcBBg2/NCIMDLZyhHh/geeOYOxP2aFGXXI5cRKbyMRnmxho8W XQCZciqOMZg5rRnXG/EOFO6F52Jp42c3LiMA5Hkl76 TxDhBnwkiDfguEG/8Q6o3/WLSMDLLPLKsGOmyLruAkeh8GWb0u1TVeWRYZMWeUI0sMqoF4nk+MBcog/M JfzAXOIPzCUAwVwiEMwlBMFcYhDMJQjBXKIQzCUMwVziEMwlEMFcIhHMJRTBXGIRzCUYwVyiEcwlHMFc 4hHMJSDBXCISzCUkwVxiEswlKMFcohLMJSzBHHEJfD FPaYRVlZYKjS9uWfCSFAlCCBUQwIC0mErwN1eXdPB0Qmo2CR+nubIdn7BmMVHtKHgW5pADrjBLCjRuBG YYRD0QHiGhLFrVGBSunCkd6x6YPnd5aD3lyEoCwNwMJRAQDu+kGU8LTSxXxjFnJUHtXDoLyZNXmshvXr dEYGecSSAWCdAsqFPt4MnfHP6fXjFDvMp8jeQRGUJd VDpKNPKRjxBsPAGoCajXeLEKffPgIYcENbvJpEtDAHAxwNZpeMYSj8WXv4y/YoFvgdLjAVXNDwbcg3uO KX+gYksQ3p/RXvGfGTYRG8T3lOpabzVXvbIeJf14dxcUGP6yaCMUC3w0QirvgGQhjmbrmOqK7lDwq5e3 sGC/WyfBzdBgmAQboaiLfoe5ChOpDmjNyRW3J6SDNY CnHIckXpTW4uJ+a2q/JqKbdksvIl41abuQXwKW9vR2bEkKPbvhr5p5q8EgySUrgTaFfP30bpQfRvljAl agJwl5+/XO2jrWFk3ykJTBnsm9XVH7RaQf7GKyNM2D8So4hcIwhDK5KRhSNCRvPVwYY8saFXzQIAJgjo Rkw4lDgchQfN8rP0VoB784VF61El5WtY5wvvKPGEuV gexOEBgYPVDGTiKh23BmhKio4HlMcazd33UKwigkT9zPD7VIjw+SDzy2erQf1FAfThy78nEpJlCWDhqM tSwKLcvwb9c8E6rDNBkreEqX662fiOCW81n3CSTAY37ET217xYgE3G+fWjOQ6+/27AVdMo8bHkqE7DmZ PVhEr3+2Mv/ijq43CkzzM7PAS9A2oiMCET+cnHE1uU MkNyWgr0T7ndzWEt9g3iWUH7o3pgILN45xBXVlwWNMaD3cJuSO3kT/zxpGU76eiJ8UCiwxiS+VWhN4vX YkS3uERf1FBaS2PguaqE5GUcxhwj4ZygM8KJV//YdNtYF5xjEV6SmO7ltb9p3Ddl/eva6Y0SMMrRvD0Y EICxJ/NpU6DNYGP26hY7N5C0BNBLmx+pBp99MBDOZs 2CFW2e2UALIvcUaF1W9fViAnkIpG0b88UDKjcDJG2P1KZuOiZ5f7PdDARt+PmJJYL/B/EHaxeaQrGVvI 6HRNXB1knHW1ylyU4Wz+SenaeCIwk3Jokm1FX32BVU6x8XSpEjpyQCkBsxNFFdt2oxx4jCnSDY4XtuRv wP3vSXC/8AnJrnqp9dXkiIt1nCkPj+GdQY5vCqiw0y QlZ7lFY/PaBVWtqeawaiAC1vyEmHA8hfhqbuvuMtmlM06bEzvjWUi+kdbqRmG/TMw3PUqDLmcB5DBLCs FO4xNCTCeTr9HF/W+RVOh4QuIHrUrjUBn0zkkm7U5oXtBmmosItf2ze+GqJDKfDtkwNUTMPzKVLCUyny JqPs8G+o9FQHLxYESQ6oyn0maS+90Q1OkFBP+1of63 oa89qj85+asQIJu/ifSjwIeuj7EYU9FkwDzx/23S/4Yj9L+WuNGCkKBhzz2RfZjxau4Ded+f8k0H6vsp 9ttU+25JTALrDW1opVzfaN7IOJSU7hcWBu7Zru+mhLca4+cpyqqkr0mmNu8mIJRtfN6c4R9HiDEGavnm DXVzDh91KVJfg8Kxsm1EvB+nCGSzqnE7CHTbxXC7KU wV2OgDtxctTHDsLgQfn6oZsqkSkS+bQ+YzFrDXw37Pg/yp/fKn+IuE70xT37vF92aQ2NhN8RLaaw+QMf xytdYYmeyPGoCeKx7Y/PYUbfiHH6IpAO5myA4T2B2CnVG/scneI6IEDkwp4dwGTOSrlV3Br8L0rhE7ix AX55gRD5SaM7lBTOq+K3hqddBPCyeZety1O/2FDttE fIaVWeZeyvW1w+r6iBRRYQ/JI+oNFpyRpIiAxJTgl2OeXUy+CQvH5kv10TGJus8WIVcqma5LnZKuUTz2 OI+wG6ZkpSDg3yFe+j99mPfrZrbwST0YutWGiuSDw4/bBQH7j+gIawTCix07CcS4kOKYmK1PrZbwxE/E 7CO6EljeadnQQSKrn/65O6hQeooKpsw7MsDQ032w1E ck/YKS36CCK1K1li2zCW8WR1QMsUQBp9DQCJibHJrBvLxv9AcfrTL1dDVsnIQ/JyBTdlXdAwS0mGSduW 9ZjA/A4lPhpcWCvkPG/gFlYjnVacgckP7Dt42gthBqV+3H7ZF2f0ECLBocEeGX6TFOZ+VtxKu8J1ph4J BxmSpvKPGAvY+QCe9MEHR3pHiKWA/ULotlHkiQp4/b zU9orfw8NfWDYPe4u5A+t6X+t6X+Q5M4fjSneuSclHg/ZCpZSmI+bVSeDjcAHh8t/4+4Etk/Xacrkfl0 wTfZUmpjfy14VH/ItiQgGTIAHqkQXNs/6uuoV7zKIZY+sIxNLhOxQqcpN1xmi67cHbTGOQJtqowGGOsV GqoJgsA0kYYYsecGNPaAPjfJhsV2JSVMkWmV2MqoCV alLoQhMeARmU+ERmNJJjGU1G4TWyx/M6Z0krc/05TCDubLpivqYkSeG5BmywoUnm71FESO3zuhmpY7ji d5mAl72r+3r8irSHKS2E0m0qin7geA+22r/aoOkqhiueTumPWpaje1OJ6ixKvjCV8xeX3ibvARdljZ0N mmD/MENCYU2ELt6DMQZSLTmraGqF7ksv7j1Tz/sHV/ Dhx4wZn2wBn+whi5eaC+QPk8jZj0MMFWMKP9qv58M3zoqzdBYVvTCP0/O52QKnea+byGJvAKQxOnF5td FLFkyj24xydTDQnnkTZgozTAqGSohZ03KxQPuhv0fSwTUlVhSXfsRYmijzDSXmfzwOaF7Hy6IwJuLSMe 7CYd+g33V6UCJAzFDl/rq0C2oRW8gv0XuIOJA1j/N9 4RlXXZhSwFiYJyBQUJR3Ksr6wqLUhlwfhntS7GjEqltCKrPIbKRd1HEfGoJhSRBEeGlNDU4dY3WyQQBz 6ETubIP/aMKkslnUisQSYg9rftrQ7KCs658lirab5u48Gur6jawyVgmORnrDmaDrP7OPRnEmYU4e8KE1 F9EyCEx8F6goPcZ2vbL/BpY3+Ihnt23yT+iJP4JYee 5IFX2mkeUNdYaCwnuFlKYQNPH4EDnjZPH8o4ijfLfMgM0SCNFB1mzL31NY3FbydDIP/fZ4DoyFXOberF CrQGkaVAO/SdnjaBhhA9LcCehLqeHqsOhSXMR6FGtAiTwYG8Jx5XFWfytvK+OAzYu4kVsz5XZ+xWd4D4 EBLEh/DGVWfaE2rkxClzw2CKI8ciaCn/cAZAz6g4MW tvdIAPbekSbF4BfImx+Cye+ZbJmd7brw7qYteke9vsA7PWfcEAqgMorlJnG8+k9k/RNj6rZ/49u6hItM hoG1+qB7g1JIPIH0JRrL3EpfNp9nR+D9DSIx3FsoG4b6Il/PvZ3D/OvNpmHbcUD9vJrqEx4kF91I+sab /xSH/NiyseQ2F+uxdt4+cDghGRe15ktgiPhFwYPdS4 VDIcGU4xu2M5dvQlffRQX6Fj+MEvPScrdIa3Q2pPQ7LazkH/T1e1CfH1RP1m7rJlu3CthA6e4Jd6yQ5J 6UsoW51hWLb/T3jOwtvE+EI1qN2T7ONeJ1+qJzxkOyduecg5BXZ3sdS5Ob1bf5HLw5Zmn4mivQyEv1ZE /eDnfI0PyrRX/AW+wtOtain1zyAX7I4JknW/UprQf1 Eo1K6Y0+s/fC4dNmxU0lw/4Jm/uFZWNh2ObFlAAeyWFl+8HUmjf8P0bmi+zhdgJz20uqQq+QtJqtiKM3 0es9e9IuyBtdKD+BHoR5C36hr12uq4cbUE21EXAr5gS3DEI1MNi4IzYKpjS22xmGZV/HgGvsTEZtPe55 btwn08wtz/6TtmR5OkZjG7Tub5/6q6hoSO7Yxf/lG0 qfyRyQysCDPH59eWyGMU+ImAZ/OMs8RZ9OVng42sn8+ASSkxv9MqP/VAV1PWxQavAvfl6irHYos0avzk Ieh97RnHXykG/3likpRN2JFMixwb7evSG74y4+FZxEyIc5jzrbbEVwl2FgM11D7wJQkgYz+wC2f+Al5n 5i/wl8L/xqcA/neARJa047DebwFCamVLjlU7iYcq4U FKGxDr5rrDAmUn4Xw/p4yWnlInXiZcS26F+gf2DWKw0CykYNkL+SD1PsNotrN7O9HWS1L8jUji6YFJ+w 2c0gasE3QoZ7r0WMWHu8zLtcPIkxFoXd4KUH7DU6dL3h7Ln/lu5a4Ns8yBNtZrZYNm1K3+KZh7rialEa V80S2+kTwxxm6U+BDeAeJDJo/VqlY7pyoDHGihQamI yF/gwCN/gU+O+Ok54foqoZNRrlGyoaqudPEJjjWYKLkW6dsCpaQ0MPI+w72J/65w6JoC/VNnfXonKX+v x8I9XjaPA51Z+6fusn/qXqhpgtG3XSxWU9cXPHmioaVu3boWtU6wEglJiCMSBlHvPlYyY9nvnprJ7TM8 qdrqrvabq/3HkeOLv0n/hJy5nTI/5O0Eo9fB0ku5cX /fGdtV8xKi2esqo+BDzz1LXO6n18JTzR/CcMRn8t58UgGRWjIbf/4pusW/n3BmRbsNP9YeeynIsRp4rQ yRYrJ9RtysOMsW/77YIF7xftD/LvazenbDW8SbnurInVr/VgMnoesDA5UiU9HdlB21CRjPlkOarHT340 wgq16bx2z0R4Q5clf82wY+u6hcd6g0xBW/WkUpxW4U /AC8rrKrFYJHFLjybdJ2CnC/2O9of3T6v6Fpn6Rx85bWKmIsfHY+QrbVKH+vNyl+8o8I6x867+AR0W/M X0hS/z1cCiEpb7Ptac0e7ZHWUGzR/46Pu5MGBCrMH8N5QG+yv+BD0nc0gp6UM9lo1Od4t027NyjpSiDb gHoTNCO60uqJv40Lj+wvOPMXklT+qWv+gjN/YZOE/8 6N8631JFDl9DBRxzHYzfvrf6fLd1j3lhD79GwfDby9m+gVkodc8WhzuA0ffaV8A1I+PpNT2H0d8VjqTo +jGSKBZ1Jh0Rpm1GVvvE7tCHoOXx6tmrNmfiLIqoeV5qwiTV6+S/L44unRQK39jPYCI5+OMIuaMJ7FeF 1CY1t66RU7DeVx7Qzyyy/ULfIXLHvAe3/qNsOM3e5P tH5h/gJ/AvxvsCka/W/sDr+XkGk7Fjp0AS+Bh2MzNOcNsByBx/YOtCZb93Sm+NFp13Wr+LR7kb/wiJUR zYgSQeJNL4duTaq1fu7cWG3mHogZlMUdmqfQbM9KWkgn16URq4zG+RTV6OmDVd6WYNDj4VgK/gKNYOQv 0JxE/vJRuP2qxNdGZuY8yIlkyP30qNjj84muvWBoMX qQD0hS+ZAeUu1mzkdF6ycvK0vDbV/f17P0MYZBx2UFfoNoGAA+hM8H+wsQf+UbSYJzN5dw5Xj+xRL5C9 RkwQElQ6eUrRRV3ytpd/2Vdtq6jhH9xPa4b5DS+F6Siu/4Jdjchfw6AZHNDzXcQJhK2EC+TLN8syERxY wwuRavXk18Eu7uGx12ij20cV+3mQO3qT9I+E2PVyOX axpara8e3a5bIj2RSwxj2z67Z1eY+GsR8YQ99/OqSZ1DPaWdunI5uDHsLj6gU/3hZywOvbOQhgGA8E5x Szqm4GaAlBXvMWD8HV5KB6VytOh0SAvkLX0q/DvTijbMp00HJDfpYvA9HeT+14fkZ/mQgtloFV/kCJGa rLlQZ9Tu/wQSyYBTN5kl+CJTidhvg/QkqOXt5SzRSl 6N0oigKXqDkuFMKsTHcsTZg9YI9fuvl/qQPiLO/UKyEu0xvtYY8uy4pWA0ztwZBjcK67VsY/Xo2fKPoi +Gj3o9G0vK6pZHEF/BeGT+hCwllQ+NYhBBvL4j/rOlJ51CdVoTv5GE3jnnj0P/PhjBrq6pWY5lZcZL4p Fsj6C0uZ9xr+5K7vx46G2WopgNF/cXNH/LN83HWSqw +8Jk9b38xoAyP6iwaLyt27Cb5ADr+TcWFZ04aY46WP5V2L+Zv0BS+c7O/APjO6qwHfkaS4t2oU7dnBW/ utUk8bvyOXM/oh6F9G4oqr6e65M/gGAER/7TP8yBc/DDXUf+vlrTtUo8rjJjtQftLhM4U48Hz78b04u9 0i3rIqdaQcuLnZtl4bF/PNq1Wl108rl7+u3K+w9taj +Mz8/FvdhAhdl110T5V8cVkvf0wt/C+yaV2Na++u7D+LxfPIC/cf6mF+V18eR3Y3b84A89Db8g6Mv1Zh Z8D4vffXh+bC3aD9Wh2bPeT/ZuhG0ssWOYf3M9IojqfQpHx5kCCon6C/fD+Yw15BjZXRnda6qhTEEvie S74E/Psg7Y40kE/qdC4tzaya5Q6afVknFg9g1huiA+ s6cah9XhrE+n5m+2Ba1zW8hJgv3wrWukm+FqtByfaLT++1V4wcohBwnV13JHdPiF29XjIo9k0EqQCcix kB/ikJ+W93m95RjRqW+Bz0N+8NxnyA/wCciWgnbGwTyNOVGf0IVM/BBPwSE/xCE/DLo+26czqo2jsU62 2fv+8Lw5jpo2Ye6Op5/fezVWjsNVWDk+V1/weU689w FPspVhInubn2KQZ+Ykr7gi8M21VNe3OJ+bYD+F23u/JgfOrtCqYE3pyMP/zRkbdgwayhq7Yb/2K0MGS2 MWU01g1tNzDKHL7Ns/qPyCC4Von6aRY/+9i8TjHahC9O0J/QC+S5ExvXfekbY6eeXezUVoZN8NI1TfA0 njtN7s2xnwhtP+D/2f1VggI1d+IV6CQ/9Ve2QwxiFo f+cP/lB6IB2uF6fNKd5a21pA6ZSzbPS/sNEK/BEfCqf3eyI/k5P2C0zc7O+/zQACk6Gpu6Hw/7DID/TP 0SqTbwO1q7jGPCC+jHhJOdTFqxSpJ5L+oH+IT2HoH/wv9A/AUs6X2TA6gsQ/+C9M3Xc4hl2Gp/DG/AWM +Qsta2v+Cq9+Ynb09kbQRd2KBiTB/1YxYVBe/RPriX 9oU/f9J6WCzaGE+MpP+4C62GBjQpwtj+Wn4xld/fOZx/x6ly3OHGZu/G9zxRE54hB1je+w16b2M+7RXv qIS4pfBt9mqpn21B19EhJRhq9LdvlNEe/ZDgf+h9G+9spP7/jOJz/fiqX/dck584PeFn/829ZPhq8cS/ fNz7GM6JbufhqV+getSKF/qL2grsy450wGfR+IQ374 nVMY9g+sVA12BD6Eb5FQR3Pf0VOP0q/rKmwLu9d/iGP+trx37MUWu3VHG9/JK1JFQ2RaekxO/EUc8xe+ 02v+Cuf8+7wLxvwFPGedB/NXyECv+Yzw8aaRuokM60LO/kmob7rfwvb8U1T+gYxB/xg+v/ETdAK46wNW 4Yznexe+lOcNsYCA21WdzlGyNCAqd0ErenAglEESJl E7DVkJ1ukONY7E/jcOfS43E+9JcokERu387/vNcf9X/3w47v/qn4fv/JV47vr+nb/ynHf+ymvd+csgz6 F/cQeH7852LJiT976hR+gCBw3Mf0lK/Uvhf4wd7NGYfTk2xvHO/SZ0K1dqXf9choYbe1Gk10V66mMXuf 6TtwxAfk4z3T673wG/WHydqfU70L1bEa31PyMxU+D2 9rmd4x4h5Y/8zhIM+ab3XVc4NpiqS7zLwfRJHb24l8kH8o7y1P/ES/AehUv/dNE/XfRPh/5ZwKF/2Mq2 v/euQ/8Uh1yrxlsl2gh/LpQBjjl3r9pRRohtKAl+IZ6Cl+HIC7XdAQLYvi44azD/2B0zl3m09XFEO1Ba jzr4Y1AD+rvhf6Jeu3h+sNeYjFZjNbpgyA/tUdk7M9 f+LQza7W0UYElx6TAP/eTnoX+IQ//EOxJ+vb098SD/ny/BexQ+hUP/2Y2RBqr0TVcC+Z6Gf/zhLnjswl Nw2M/AT5HZa5dN6U/cs9g/HfYPfjvsH/xe6B+MFdZfGH+sv/Suro3wLndaFDw/hZ3oG783o77qsSzegq EF0hu0F/qH+Dw8oH+XBXGSY2SSKZgiLD9HR5YtQax7 fUD/TArnV0b0R5S/sAVt6B/nBGkYUh9LdK8xlIg1z2O6Ko72PX386xU0QO/KvRevOOn33mI+4rgOY8Gv vfLjG/+7BV/8zT5tVrxIO64ykhIFQ8Ruuj1JglVrTMr4r+L9oxH4k2ERZM32bF/ZlwL2uWi8re5uccz/ fYo6I8bi/j1y9foow97fFjhc8HV+6suq6mv2ntJaqH /3j8+v/eyG81/1YLvHlYmW1bj6A2P/oMUq9A+/3wWH/Xle6lnFVk5DaFnO/2dg/MLxlxkx6TAWXylnoy GX4Jq/BtZfwFh/Yaj5TBoDs9Z5qN0a7w2X4v/rgz9R3a+4N6y/IP/w/jJ0l40K/D/WTsL286Nj+mfsmr 8G7B+8F7B/IDOwf/LQaO6sAmhWlr54m2HFtF+20ID9 g3cK9k/H52H/XLZ4dTaznxS8E93j3fOfeIsCGv9u5aNzfrmiXr5h+bCCPR1qLVdMpL/AFX30EriRmNKD 5ydWckLNHuo0XztFXy52eQB/O2n4oE7O+4dq19Mawy7lv1DZqBV08/3EfYb+4T2H/eIqXp6SA2KW/2Ac 4P+J92vC/6Xdkh6zLck/Z8L/Ezphtpq/pvifJ/w/xF 2ovNW1bQ7dYSCZ//CR27nPAc+WJvw/xGX/TLF/ptg/E/MBl9Q4e4R4z4/Xs3lmr/wqdq7JoTD+Ia75a0 L/JSqd681juB0Ir/6Zon+m6J85a/6as/gMu1xv0ovMI/w/E/qHeApegneNifh/Jv0/bPsX6zb0wu8azl 9oDf5YJ5ZnP0/oH+OQVUrS3BI6K8wFx/6Z0D/E6607 Hler6zFbK/kS2BP3j67w7L/iLljkB/YPxueU/3BC/0BJuR1PO+gftA2F/iEO/rOA24DRmcOEa7X+7/hO zN67Vc1K+BQ2rN/j+6F/ErvgsJ/5/bCf+kg840Qfh8U4X/oHv3GJ/3lh/RWysbD+3lK20TVM/8/5j21q SVwl0w9v8d5tcY7Hzm/ePL6w/iI+hbH+InbBIT/EXf BkmyHa5v/iulh/4B2j6Y9bvD+Ia/1coc6vGo/wOyE/OCf0D/JMtUfcXknLrx0By2Y/EIf+UV88g7I/MP 7JF8cN9e9h0x1JIF+Roo1Ael19b4Vuf57POzw5sdZRWAZhR/sZrfj+lR/ziIZPag2c0AvLnxJUedKPyC 6He7F2O6As+Qk4tLzXo2713mL+hh6+c+cv+EKjfM13 zk9b33OBWv5vUB4zT+MQ6y/0cfF0GO7nNgjV4qsGrjqRA/2K6Wc00q+udnq4NohXZI/BL7Tg/2o5nq6z uwb7W6hEF/hL4ND00Ry/C/pBWDPw8u0Y1A/ZhLr8e1dA+k7ID/417Cw8PeWOa/nK7yjSB7r/ivUXsZ/6 OvHgDq9j0Pl/+L/bCp/YGY6Fc7LYKTFRiP6xrwI+Ip 6Cl+CYvwb+9xSG/on3ZdP/A1z+ny3+ny3+n+01f22v/YvttX+x6f/Bd2r/jwmwi6vsxzuxm/6Jlq+wfx pw2D+wKqhze7OA42YeZddhW/mQOucA3F//sOIq3Y7pLsLH/vvG/ud5yYxmO95qc2FGZ/6I9oHIy9Y3ye gcrSs790+BY/1Y3NO3ky2x/meeM/zPvO4o+znqzdAW jXIz+Vugf8L+3NQ/wKF/Qp/sWfsXG/6fAxoaR8YX/h/H9+vvC8l3e/A66W4lut7YFt5Odlv/W+yfLfbP Fvtnr/IfbrF/Zb2meH4dyiib/bVp/0F6FT68Vi/wO7V/yLzaF8xVZ6Mu3F/EuxU+haF/2Reyn8timT3/ b/H/bPH/bPH/4QM15e9q1Wc6nJ/n0P+Dz8t+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 There is no pleural effusion or pneumothorax. The cardiomediastinal silhouette is unremarkable. No acute osseous abnormality is seen.IMPRESSION: No acute abnormality.Report electronically signed by: ASHUTOSH SALGADO On 03/11/2021 10:00 AMWorkstation ID: [id number] Name Value Range Interpretation Code Description Data Renee rce(s) Supporting Document(s) ID Date Data Source [id number] 03/11/2021 09:20:31 AM EDT [facility] Name Value Range Interpretation Code Description Data Renee rce(s) Supporting Document(s) EKG [facility] LOIIDj2mIaVHIxNuw5SkNsSdFJJnAL3fbpl0Q0P4bKCmW0XpgIGlo6nzZ9TfY2XyMSIlZSVGUM5WrSSh jb2 [file] TP9+Y/tHq24Ed3ZF/83kHwjSjr4aiteObVY/qn4X9D/7wPJfAnP+Addie/zIq3afGv4gN6w3N9nkVLYWg/ Lz2ipx/tA//cFG/9M/Dc8h9A+vFfqnbeBP/+Txn/55 d5+BP/0OPI4j8/EDx3/4m93e9S9z7r9dkFB/4H56yM/hTvLDHduRkJ/GbZPgkB/gdV3NI85ge/5JQ1dw yE+lgSt1Ab48UEIsQPa6OX/CM+RrCZwqsN89xoTe7OjKH/rjxX8ybQ/tFUw1C3/6J4/59M/Obze5ib3+ M7iM33xT+gX5X+vqGYf+IYb+jTQeh0fR/+S7Tc0E41 Fj/eIbsS15SnyW+xO29krb8/Dopzzsc/Vz+ZRla2Vk/82o7rgqNt9OAc/1C7+LT/+6q2eRm7kH/a7ygW cteL9g850Uv9zQygpyN/4BNM01k2HNwXWg+rGqIRc2S0mr6/oFOQ8H/ovx+qL1zQ27/LF7nk//vNcF/t Vr4Am14f/fC/Zqi5udVpV/1IpOCdOZDw62D40ny/3T cVF3krsk9Z+hxxrsH+Kyfxrtn/tMXfC5qrQxl8PIf9elK/K5kciIsQc6gre62QGtAvrO5/xKWkzu3WRR U7bDQ8/fYzjoE/jGi2sZwYmX/UMc+vvdTxRH6YW75x+q9Vq/NyBM2tU8D90I+ofYT+F2f18N+pa45jQ7 Qf/gWtA/xNA/aC8fC2sD/UPsgkP/7V8xa2cBBsxv+t 6gf/BZoH+MZ9PwTalT/IQifp2XnsC5KO/nO6lmLrOD/VZb6cNRnr2Ib6ycddCoD9JltZ+IQ/0TF0UX4B 6FQ//x5nX829NL/4TN1qB/iEP/XXiKUW7Aw/ugjZD7WBWcg/jc31eH/Peyton/6ghX4hhRjFdFVN/TPweq 1f/VmCa/6bC78bSuKCKg39zn7iv/8UYINUORXY10G+ Vd8nypswIRrtto9rS2wSW22zn7H/+KiGA4RtZ3VvSfx+nTpPyA/uE/oH9w/0Sog1J8rB/+B/cP7rDdyj HGHrz5QY3nj+ova6x9potyu6QcsfYKY+Ah8g2nZkzoC7p/x4w/E51ngjVdiHaWV0fwO/n/x0nv+Tn4Hn OIMnF6YPbAm1ELy/6Z8X4/Vv/eo4Z+y/WvymwmNO+y 2c9nOxDgP/1fB8Yv/Y4zsg2xMyaDTjc+3AuJ/YfzXIcOy//GBk7bd+ueH1b/3COgs/OWxmuMnxu+vQP/ hc0D+4H+iavV8iL+NDR6nA8L/ttH4x6aYH/DQcE/LD10N++F4gK6f2HCl0D+iRS19rIgq/iEN+cP/Yf0 C2wO7i1sC2cc1Smta2K4Pn2tG9I3LzwjHKf+F7xP6L kKnk2AoV/uc4KLhld+G1Wg3Y0SzPeNbZUt1/gEP/pHukxqk9vRid64WBqd52tQ2N15HND/w/8R5lje14 HD5TjY797vY9z1S5V6aAEl/lwGekHRgub/4ew+GGrAtZ20Wk/bh0Q6y6LY83Q0Ry6Bta6UsY47ZIl0Xv BAYuQPw6A6o/9cvwnGP/fSkahlM38EbTFo/wM0L/4L ND/7ELGk1h3wQ/T9iEA/ro6pMTw/qF5wz/D54//D/4juD/Ea0Hzi1jF6AI+jVGrV+D9g+sv8AqsqSN2y //V+UG8k3ojA51RcXdTO/7B6/E6y4M6R/JkX6Pz6HwrmOZbdM/kS8IE1ZtHPNDvXiA/UPcBIf+wfmhfx Zen4Jr/zVk/zXE/zN22c+D+6/4X9g/W66dmkY/8Jgp eHmdJ/XC9kL1Hju1f5eBd8So9+K48F08K/QP8RRc/sNB+hr8UWmi2r7I8N+D18t+or6GDM6oJc5V/13X PpzQPyHDE/on5HxC/xCbYBdc+mdC/xCH/fWygnp0Xkk0El118a+hu6aX/3C6CS7/4YT/zbcRXq6batK1 D0Fo5DI3dD//anTSyWcr+68J+7wZn54Sr9zP/3By/w U8BS/W4M7Lh9u/mNh/XGcfJ5a+m9i87PB3WbX6H6rr2h/RFzT6H5G9NM/fxI9AhI2Oygxh5A75FqN95i 73Ilkb2PVE+u1ug3mL/YN7E/3cpC8ur7W/5F4G3w2Q+J9Dn0/0x38hF6byNbGY1weQfus4J0EQFv7C4L /zLkoYO/vJTwt/FeeCkz8BwMcGdqxMW/V3kZR5O5/l 0z+vko7/jo6MkObz/wV/BGGHpy8AJEMdO5ykNXQdtucDHQs3g1ZMLGjk+sglDI1z6F/x+Nh/tYiYRzec d3HGMd/1dZQ8Sz631zsa/A0ekR+ejzmzd1rI0y3kAbH/RPEq5I9cZ3IFN6gdr1s/Al6Ca/+8aT9Bc88R /mth/0UM/yFw+Q+WjpVmB2hPftDvhcR/XNh/xfeysP /BDHroz6g2TZ16eKtyVxi+fdH/A7xO/W+tX8tr/VrQP8R+fYkL+ufg9Vq/lsS/FuJfhtfXtQ/X9QU7Cu 1uiGH/LMS3y88M+tgunmJ4I7zmA/tNarjpCbb6y760wYraaL9aiWljgEX8a/keg header/bBt2iCm7nW61y+wG [file] AgbiAKMDAwMDAwMTczNCAwMDAwMCBuIAowMDAwMDAx IWT2KTIvIKUkKU4eFpEuAFYpWXUpGZVsNbB0YjWhKuSNkSFroHhpead5MTssW1k5GRUzAAcqIF2vcnHc YYAbXknkIh5doQN8QDWsPzpCKd6Us3YxiyM2mmSiQcD9FyZlJiEbWW4X ID Date Data Source [id number] 03/10/2021 10:05:55 PM EDT [facility] Name Value Range Interpretation Code Description Data Renee rce(s) Supporting Document(s) Discharge Summary [facility] LAFTJt5oTjMOCpHu32/NGJjmJSSlh8LqNHifHLz7ZBujSJFlQ5XlRBH4eW8gXKB1RKmECaEyGlFtCWAw lbm [file] CiAgICAgICAgICAgICAgICAgICAgICAgICAgICAgICAgICAgICAgICAgICAgICAgICAgICAgICAgICAg ICAgICAgICAgICAgICAgICAgICAgICAgICAgICAgIC AgICAgICAgICANCiAgICAgICAgICAgICAgICAgICAgICAgICAgICAgICAgICAgICAgICAgICAgICAgIC AgICAgICAgICAgICAgICAgICAgICAgICAgICAgICAgICAgICAgICAgICAgICAgICAgICANCiAgICAgIC AgICAgICAgICAgICAgICAgICAgICAgICAgICAgICAg ICAgICAgICAgICAgICAgICAgICAgICAgICAgICAgICAgICAgICAgICAgICAgICAgICAgICAgICAgICAg ICANCiAgICAgICAgICAgICAgICAgICAgICAgICAgICAgICAgICAgICAgICAgICAgICAgICAgICAgICAg ICAgICAgICAgICAgICAgICAgICAgICAgICAgICAgIC AgICAgICAgICAgICANCiAgICAgICAgICAgICAgICAgICAgICAgICAgICAgICAgICAgICAgICAgICAgIC AgICAgICAgICAgICAgICAgICAgICAgICAgICAgICAgICAgICAgICAgICAgICAgICAgICAgICANCiAgIC AgICAgICAgICAgICAgICAgICAgICAgICAgICAgICAg ICAgICAgICAgICAgICAgICAgICAgICAgICAgICAgICAgICAgICAgICAgICAgICAgICAgICAgICAgICAg ICAgICANCiAgICAgICAgICAgICAgICAgICAgICAgICAgICAgICAgICAgICAgICAgICAgICAgICAgICAg ICAgICAgICAgICAgICAgICAgICAgICAgICAgICAgIC AgICAgICAgICAgICAgICANCiAgICAgICAgICAgICAgICAgICAgICAgICAgICAgICAgICAgICAgICAgIC AgICAgICAgICAgICAgICAgICAgICAgICAgICAgICAgICAgICAgICAgICAgICAgICAgICAgICAgICANCi AgICAgICAgICAgICAgICAgICAgICAgICAgICAgICAg ICAgICAgICAgICAgICAgICAgICAgICAgICAgICAgICAgICAgICAgICAgICAgICAgICAgICAgICAgICAg ICAgICAgICANCiAgICAgICAgICAgICAgICAgICAgICAgICAgICAgICAgICAgICAgICAgICAgICAgICAg ICAgICAgICAgICAgICAgICAgICAgICAgICAgICAgIC AgICAgICAgICAgICAgICAgICANCjw/iISdQ2yurZIwcdF8F8ftXd4GDf8PDB8tv0RnLNOpISnedjLbYe kWSeMxJPJzEveBQew4YMybVX9HqYNoK0DfG5EdPOvjDY4FBFGgRFGojXYhOCFvAFFbWwJ8METmKVoeSH 9LaWRzIFsgNSAwIFIgNyAwIFIgOSAwIFIgMTEgMCBS RM9WPlFrM4IxzB26ZJWVCb9+FWwecxAfDqvQSlX6KCEyg4PbBHl8RD5ZBSUiEphkp1IpWcvgTTTKYJkm BX9BKEK0WHE6DNDuLf8MWRBrO859zeQlJU0SKo9GMpYnUA8rzt5TBzkjKMPuXerJQxu2QJsjEF0YoNDg SQzDzBRvySCwJ6UgV4PpnURonURhlUUSNNC0QTXfdL 4zY52lDKI8OFyhCBUqWqHjKNLtQeloHoIGNAgXPiBeG6Bpx5RyQmP4FBLzIkHkUUidKYAtWjJ0FL87gT vdGP5HDXTvZDDwQB07TUW7HKCxQl0NPi8TFmQmGK3ypi7OFidfMEZvUnxNKvo6WDncQR8RtNHrL6JgyM Yop3bNNrZzN5RPFTU0ONRkRf8POUNiYnHnGUAqVFpo DX4hDHFyCMVLbOtzdsL0DI4UYN7xelVsWM9NNrScDl6gNu7KTxUgM0ZdE4CpFRWcMUAGEXdmUH0NYFwr UU5sSC4Zw7VXsGHqdL2ldp4MDGXcOUZvSfoqio1RIdoeM6Y6oMxlGOVaFxMaNTLLFNenYN2GVFKgDLJ3 DQUoSERyBXDNUfWrO06tOV2KO0Vbe10sEcE3ZJCzOs OrWKilIK45iNivcqGyzXZwuDdgYM0SHb1+DQplbmRvYmoNCnhyZWYNCjAgMjkNCjAwMDAwMDAwMDAgNj X8KgQoAi5WZPIvDEKfGMJiEqSyNXRhBDXqANujNPRdPFFoZjaeLIDoWJNmYF2WOwBtGMZgAwUvLjZoZE RcLVAjdl3HRBHvHXJwCKJ5OyGvYOLnRBZzJYkqDIEo BZD8DaB8MTXqSRZhAB7FFaQmTNSaGIW9LACaWPZcBODqfg1CAYDoOPDzZEX8EgXsXYFtGDJpSTnlKHSi JZZtTLqyYLYxRIHtAV1QWyOpCOZmTOZxUFhfSMHrTJHzlq2EYBQfKCFvZyP6TKZoAEFqATChRHunKLEm TSP4ArVuVPGvXTVxEP5JCaUvTOVzXUQ4QtOdCVAdXP Cjwa7MEUWlXOXnDGfqEfUyVOQmRREzGBdwVSOmVFK7TDPpHXVdLXVtHC5PHjTqDFYuETXgOKKfYFUgIK Dtgv8ZSLWyWEAvWcN1CKRuUENhOCYlCDsaRAHqLAR0FhV9SKGzVWEhDT8FRoWlPVQkQUw5ZIEqVERcME Etus4XHQQsQEAqZGRxMQNmETMmKFKiTXglGVScOHN4 PrEcEKWyMWXoDC8ZSpGzUQTdOBy1XEPqCFAsFTTlxi0XMRDoKRPzIDu6DOEqNZIdMUNsKWxnFDWfBXLa EVP0UBZzWTZrKV5UMnGdUCKoZtPbGVrkCAQuUTNncc4URVFhXUAdYPE0OPArURRmKEPtBCjdEYXnXFIz FPA0KIFmEPAiLT4CKdNzEVYmHqBpICgzEYPzNPGqwu 3UFXBsAHRbYzG3DFUaUOCwPVUoIKe3nrVyoXSlNOc3TH6LK9ZtkjPjQstTPs3Mp271LVR3CWRnMd8WR1 tvBd1yYLQhWJYTAu5VDGj8LZHrVFVlGcUpVAQsWzgwNgTaSPnjOMDkSMFrUNsdNVY+GXp7KnDfUQLlPV GcTTOwOAWkG5H0R4SuRmLzVrF5RTSeXW8rJJIHQc9+IAadgUCkaZwlXWBHJsPvObE4ZOdzYGRDLe1V ID Date Data Source [id number] 03/09/2021 10:57:56 AM EDT [facility] Name Value Range Interpretation Code Description Data Renee e(s) Supporting Document(s) History and Physical [facility] IBZYCr7xJmQKAtAi20/GCRapHKDcj7SmEUjrBEn6ZBorWIZdC9JwIAU9hZ7sMPU6YUdZGsAkSyUeOGKm lbm ZgBfyGRsLnPTMsTemQZrJwNJkrMbqjqJLtPV1TfSY9WUHsM16nVQXsBORoW6LwQNC5NOC+Fy7GCMWbkX FbMN2NJfiD3W6lI+TGEn4/5kzPEN1m0jVCkPz37oduR0SkrST6XpP+xZBQPgbzXHIUFv602dneRNhp/a Rq8aPjcr+YcnkT4qT99+ruslLlvz/UUvi0yorD/5c/ 75Xz0gu474+oBWfrXFencieejGmVV3g0fLC/4vq0Z7j8DOlpVYBRRqcm+gYtdYAW2do6AN1HT32j1F1l 5Be08zmiYLRUn9KcHrxWzqa2cqIPU28/r05+V/yp1adMCYSWJAwB9vzbiisO6UzM/qK6obBi3gPx9WYV uMzzZPHvczC1dobbEA2/02qWUy/ukKLn5jupiFbeS9 j1DMpUIAKG6k2WbQxvzYfH41SBn/4s8cW+YyCtWjoGy5VJEP0Xq1Yxg3NgLV6vOPyUI5yOD632YBnc/J kuxCBaMM+oMWWu7ZVkLeYUfAPV6Ei7rs/x+Uk+mtF2wgxIA4g4u3FyvKQ1eD3ip5mXXzlG1U+cl5Vs8I L6nOGNoUMo1b22ESOrm7TI9KHOOitBObmIF146vMd+ +ZMZlS5ZateUeFOIHMmLrZHAqh6c7daYmhK136jmmu1kvn7ea2FykzePIanvY9kVbG3tY3rtEgGTtieD md8FeFXs8Bpu1BdszkelZvKhywgo5RNe/o+cwN5No6g98APa53HHpr1iNkgqnvxTbgsTjq62iNqRlf8L bkXG1+TR5YVirDbhLBa2M0uXUJWee6wHcADsRUY7rZ piEnfaSX5aXpD5wEATbzOoTNd+0VdSa0YZ21fX5lqFLr9GBN3TOmP7LQ5rDjqwvv6Nv0jZ1ms2OOLHi1 AdPwaJLlpvwh1rSUORIg0ZkhxZ8IXQqW6kHId7S3z84XqHwcj+Uycj+bjGD+UPVsYmwc551mLYSix1RN 9wyVKQCU5bix8Q16t79WQhutIt86296Y6/uX727yj2 [file] 56l8+rV8V5H/R9l8Bd+VFP+7a/ymb+wFzjNo5e [file] [id number]== ID Date Data Source [id number] 03/03/2021 10:00:00 PM EDT [facility] Name Value Range Interpretation Code Description Data [facility] rce(s) Supporting Document(s) SARS-CoV-2 RNA Resp Ql HUNG+probe NOT DETECTED [facility] This lab was ordered by NESHA hicks and reported by NESHA Cordon. ID Date Data Source [id number] 02/28/2021 03:22:58 PM EDT [facility] Name Value Range Interpretation Code Description Data Renee rce(s) Supporting Document(s) Operative Note [facility] QBKXGz4bZwHLMbWl40/LDWjhPDVuy1LpJLrzZEc1SRzbPCKdA0IfGGF5kF7jHVJ0NPrCAaJyPoKhCLUp lbm [file] HZFwNbOuQK2POe1MKxT5AHP9eMIsBe1ZGCRgGMnSVxGqBM3MSUi= ID Date Data Source [id number] 02/28/2021 01:06:00 PM EDT [facility] [address] [place] [address] [phone] NAME SEX PT STATUS ACCOUNT NUMBER COREY CORTEZ DIS WILLIE [id number] ORDERING PHYSICIAN LOCATION MEDICAL RECORD NO. Victoria ZACK Viraj-Dana [id number] ATTENDING PHYSICIAN DATE OF DATE OF EXAM/TIME [...] on File>> Date Time CC: Tyrone MATOS (HellierAllan Garcia; Dany Berger M.D. Techn: BUSMI Trans Dt/Tm: 02/28/21 1415 Trans by: KULWINDER Prt Dt/Tm: : Total DLP = 0.00 mGy-cm : Total Radiation Dose = 0.0000 mSv Lifetime Dose: 19.6248 mSv Name Value Range Interpretation Code Description Data Renee rce(s) Supporting Document(s) ID Date Data Source [id number] 02/28/2021 12:40:13 PM EDT [facility] Name Value Range Interpretation Code Description Data Renee rce(s) Supporting Document(s) Potassium [Moles/volume] in Serum or Plasma 3.8 mmol/L 3.4-5.1 [facility] ID Date Data Source [id number] 02/28/2021 09:18:31 AM EDT [facility] Name Value Range Interpretation Code Description Data Renee rce(s) Supporting Document(s) [facility] OEYMCs3fSbUIBtIsg7XuKeMqOXYsQF3bfpd3W0N9jBKpN6OpjUGpd6wtR4LaG9AqZFXeCYOPHU2NjLAd jb2 [file] /d5/FmhbC4+cWUF/VmhbC4+fBzflCsa6CDJEUEB zzkHqVLuOD1KA4syBilsERTrwfor9UfLErwq9dNapQv5nqHMzqld7bKXa8oHJJ3vGhEasm3nO8/o0O0z L/i/7RWgnuzRfwh2EDJ/pegYGoZ8s8Lzx+jJJ+bQwndC4fIV7iRq+CsQRbZQvIzZfiUHDEdNLt8UCacc op4f6lz83nmihRD71nsDFD3Fnda6B87e3E92y3G25Q mT4yYdcToLc49TDEMZXEQpRExZvfneCe5BmnjDI2pTB8H1oi/Sergio/qJ1XCwb5cyFYgqD1iVtIJxur3PX lJAADbTpi1p6WBYNrySoaf8xs91kqcGpzhEDK36H6FrlWKVh9LpuBXfZcARYJ0Lu6Sqx17tiBWhmu05F 1qx8MmpcVBrslGZdjaT6BoFkoDajiUJKfMYuzO6zYq uvB9emjmuy3JPPug1c3bjur2v/XOKw1/iIlBwvdab8CfmUmSQGycMASR+ZZk/iLSAQFyWXN39a5DGmag mO2m+EBY4GSv3tEsOKZjhYQ3egYxUDlZ0mUSou+l0UxVWpAELn1lE6JlnPbtgssNAa01L+jXjE+UHst+ fzrilaXHsl/DabW4MAkgbeaKrVyMCdaclgmd5GmDpU 9WLahDr9LvzvqQ5mPadkKgDnTBd7/ZyVxWK7Rpl4MfvvYFhw9v0Vg13vAlQsu2glLgcbhnIwxYo0i3OP 4cRBc2HEiRK7vEMZ/K18spnx9vChOH2GgF2O10azD9HwmlYNuoJcz2LkzYWOx74zOM9tjj4AqDxIOtoB ppA1o3Brq5bgR3hF85qrXJ30rH5u4hG5Zc4lM4AfZG mHiDB4DJyPDOpEXo2Q7snWari6F6NOj3B2lipB7QTPEKoMZpBYg8bgHU5jMLBraQfRhoFHWOxsxot+qT F2oLe2XpY1A4lwdtSzP3n/Xjzx+0vnW0OE//5eO//LZ8/PXH5//p7knyxrPMmqRQ+9mXv/v607d/8/Ht f/6mRd68r01bkqgD0+c/+jMcvSJ7C/YpEW1+dirlR1 /+5u9/dK8J/fa20I8wtjLp/q7mJBf0x/3N17/7+M2vv/403gtOX9/89JOff/XlLz5+8/XPf/vpm29//v n6PlpU9357hYloh047/vnXnz6++fT5m59/+u2Xv/jBzdy+3L0n05DEQGFQEcTjyj57a577+OZnv/v8s1 /+hd3u7++92y8+/fTzx49/8/UXzaTr84xwiBd7Bl/7 +PEvfvXVf/7Jn5K4oN9//CFcmqsz12U/ibY7G8rskh/du/3jzz59/mCJl2948y+/+fSTj3/8+fct6Lq0 /Qgvm7b7Mh1lj6O/4e2Pp9aJaiFs/+rj25///dc//+mrrb7+/DTId415+u8/+/PRXr8v+C0fe fhs41Qd/+uO//v7Pf/j+Xz7+2//++OWf/vQ///v3f/ 4f33//evTf/c//+P3Hr7/7l+8+/um/9PpPf/3xpz9+mV4l0djzSueH81I23pqSc/rK2X2Br+6azf/wh7 /4v167aOlRZ1emI/uI2bZx76K5jdv7l/1MNEpRWrO21pN1E1py4kxg4xvclF/7DMjcr0XHp4LQRfQ6td Xq0x/RO8awEG3fFb30/l+///Ofo8G++Ee4f4ne/vjx p6+//rH801jC2ncfEmz/+V2DxLiiwSvRChRLCW/7y1DvqQI38MWfB+7kwX77/R//428//yxvd9yM/vpO xxetln1NG/iYovRgZdkPa9/gr7/5+P0f/+P7P//f3/3bX6h+N+thwe25Am0/sPoN/bY53638u/96Xfzv //RUB2FhCkb+UL+qeLB/+Px3//D5n/d835IAF00203 113ncd4tmcFHBtZJAJjAosFbMWBlBSMhX/44eXtaFf/+ibH33++O7/+f7f//Nj7vi63n/66acf/+hOHv Y8T426/O8//9Nf/2Dv/SR++k2dfkv5h7d12iEyvpvk//zdv//+uz/+hJws4U15/o8/PP55a/r6t//2n4 99WvGbP/3pD1+B55qkR1zmF/7Fn/43p6QquEoybsSG vcPn7//5v//x9//9amLuIi09nax/82+++snKL2cIp4p+9/94db1/+eIfPn/1+kZ8+t4mebfhl72/f/uf Tx+ORNz/q03AO8gNa1xLAS8/drmnQ/YxcrT+9Xf/1/cf5eNP//zi6zKbdOTuMQQ+vQcQfRQ/Pr22e/34 9JPPrzHlHjI/ip1h/Vff/HAMQ022uIxJcd61Kr743p bRtX1n9y9LjrPV58Ia/x+iNX+nSsEhCNT3elQmdVzbcsIkMijAAMezOFGeZfj3DK0XyYUqFOEkA2M3YF Nvlj3rDYPdXKYqxHPvDdBxTRNVSX6QfFApQX8CRNt1LZGzMLWjZdZnXOVjnmH6XOGdGJPvDAFaN4Fqyj VudCAyIDAgUj4+JY9lj8TrLuQmHLPoDrq6LF5EhMRe RV8YlNCyiI8jlqIzM025seIjOWTpUsjsv9EgAXdiDXYSYP8BOVI3HHD6KQGhDb5+VC6br5StKnKpWZIi Hox5UF2WaAChs1IxTW9TG5JqWVVpNZZRXRF5o6VtKGXkgncsoqcqQ3JvIZR8iK8rXYI3TUKrWRhgXIKa QQhxWgC9DXwuPNhpKBYgUWOcMOAkBLUhIYu4uNRxIR 0QA1QfBNSkICLYWJXspgHmSx8yIRfQOX5KIlnaF3vNRUHIDPB0EhBhAsuyYB8XhUTkQUW1MNqBDANXJQ jLTQsqDcTfa5T0KTXfB6IcOOTzxoSpNNXWMJpyCikeAF4lnZabrbsvR8LtkKOwRZGWKZQjEIYnLQRyQS XqX9Dma5Q8R2ToUXpTTDVISEtDOYlgVjS9r86awiMR ZXJpZXMpID4+UZ3uh5SeHd8MLMLpAB7irfo9FI3HcGAjTL7XKWongoIzL9phqzFlScEkLEYOBA4xV4Ni cY65OEK+YuRjSN1lmfc4shOsEsEtHBAgXUWpVTTpFAcrHICbUANoZCNzEBG5NWM4ISLkIfEoEAYpQfF6 QXacNRAeNVWiamCGACWwWUB4SuYvMaQwMQLmTEGvEL leQBMzFPxnApleYMApHBAxQD6rIpFgRJRhVYFxJRKmZpV3NoTjQlFRDOZfCDAuHGOmChYdTNKpUGQzND caDYZqUCXfPNe5CSLpFQItDR7oAcAsUOVuCSPwWLHcGJAcLAIfhfELCODhXNPrCTK3ZIAuWSLsHPWyJI xdEDBlLWPkCAJ2CFXwDJYuDU8gEiMeRGQoETZ1ErYl FEFbGPLelhYEKIGeGYSpEHC9NENtZJGsJIIgRCecMSYdTFLyGcM3YAVcOBRnZZ9hJjTlBFUtEBN5YIXj DKKnMYBaytRVPYRjAVOtGYe7LyYvMRJsILCwQMnkLAOeOSDbXMujZYZwQNNeUJ3lEnErHUDkBYEtPWVi IOMdYCCfpwBZPYXbQDNoJWT0GjUpZQHeFMCkQEtgZW WzAHXeFRK4AMMbDHDwPK5pWyLnWVWyIgMdVHCiWJSfGOOxjeWMJTLgHZQaCAEbDOZgMZHrITAmLXmsGS EtAGXiVyX2QKOsPKGqJA8rPwEjREGhHCM6SZKsWPOgFGMzwfCCVWXmVHOgNFRsWCS6YCRgKZOzMWa8sp KvrXZsUcr5Ee3XnOprMLG6Pq9DhcRxUVFkXFBUQz9H i827KZQsRUIDZbz+MqcmsTBvaMiyYWOUAlW8PFIGCORES4C= ID Date Data Source [id number] 02/28/2021 08:53:01 AM EDT [facility] Name Value Range Interpretation Code Description Data Renee rce(s) Supporting Document(s) Albumin [Mass/volume] in Serum or Plasma by Bromocresol green (BCG) dye binding method 4.2 g/dL 3.5-5.2 [facility] Bil[facility].total [Mass/volume] in Serum or Plasma 0.6 mg/dL <1.2 [facility] Calcium [Mass/volume] in Serum or Plasma 9.4 mg/dL 8.6-10.0 [facility] Chloride [Moles/volume] in Serum or Plasma 105 mmol/L 98-107 [facility] Creatinine [Mass/volume] in Serum or Plasma 0.79 mg/dL 0.50-0.90 [facility] Glucose [Mass/volume] in Serum or Plasma 79 mg/dL 70-140 [facility] Alkaline phosphatase [Enzymatic activity/volume] in Serum or Plasma 87 U/L 35-104 [facility] Potassium [Moles/volume] in Serum or Plasma 3.9 mmol/L 3.4-5.1 [facility] Hemolyzed Protein [Mass/volume] in Serum or Plasma 7.7 g/dL 6.4-8.3 [facility] Sodium [Moles/volume] in Serum or Plasma 138 mmol/L 136-145 [facility] Aspartate aminotransferase [Enzymatic activity/volume] in Serum or Plasma 31 U/L <32 [facility] Hemolyzed Urea nitrogen [Mass/volume] in Serum or Plasma 10 mg/dL 6-20 [facility] Osmolality of Serum or Plasma by calculation 284 mosm/kg 275-300 [facility] Creatinine/Urea nitrogen [Mass Ratio] in Serum or Plasma 13 [facility] Bicarbonate [Moles/volume] in Serum 20 mmol/L 22-29 L [facility] Alanine aminotransferase [Enzymatic activity/volume] in Seru m or Plasma 27 U/L <33 [facility] Anion gap 3 in Serum or Plasma 13 mmol/L 8-15 [facility] Glomerular filtration rate/1.73 sq M pre dicted among non-blacks [Volume Rate/Area] in Serum or Plasma by Creatinine-based formula (MDRD) >6 0 [facility] Glomerular filtration rate/1.73 sq M pre dicted among blacks [Volume Rate/Area] in Serum or Plasma by Creatinine-based formula (MDRD) >60 [facility] ID Date Data Source [id number] 02/28/2021 10:06:44 AM [facility] Name Value Range Interpretation Code Description Data Renee rce(s) Supporting Document(s) Leukocytes [#/volume] in Blood by Automated count 5.7 10*3/uL 4-10 [facility] Erythrocytes [#/volume] in Blood by Automated count 4.47 10*6/uL 4.1- 5.3 [facility] Hemoglobin [Mass/volume] in Blood 14.3 g/dL 11.5-15.5 [facility] Hematocrit [Volume Fraction] of Blood by Automated count 43.5 % 3 6-45 [facility] Erythrocyte mean corpuscular volume [Entitic volume] by Auto mated count 97.2 fL 80-96 H [facility] Erythrocyte mean corpuscular hemoglobin [Entitic mass] by Automated count 32.0 pg 27-33 [facility] Erythrocyte mean corpuscular hemoglobin concentration [Mass/volume] by Automated count 32.9 g/dL 32.0-36.0 [facility] E[facility]th[facility] distribution width [Ratio] by Automated count 13.7 % 11.5-14.5 [facility] Platelets [#/volume] in Blood by Automated count 177 10*3/uL 150-400 [facility] UnconfirmedConfirmed ID Date Data Source [id number] 02/27/2021 07:21:37 PM T [facility] Name Value Range Interpretation Code Description Data Renee rce(s) Supporting Document(s) Bicarbonate [Moles/volume] in Serum 20 mmol/L 22-29 L [facility] Chloride [Moles/volume] in Serum or Plasma 109 mmol/L 98-107 H [facility] Creatinine [Mass/volume] in Serum or Plasma 0.76 mg/dL 0.50-0.90 [facility] Glucose [Mass/volume] in Serum or Plasma 103 mg/dL 70-140 [facility] Potassium [Moles/volume] in Serum or Plasma 3.4 mmol/L 3.4-5.1 [facility] Sodium [Moles/volume] in Serum or Plasma 142 mmol/L 136-145 [facility] Urea nitrogen [Mass/volume] in Serum or Plasma 9 mg/dL 6-20 [facility] Anion gap 3 in Serum or Plasma 13 mmol/L 8-15 [facility] Osmolality of Serum or Plasma by calculation 293 mosm/kg 275-300 [facility] Creatinine/Urea nitrogen [Mass Ratio] in Serum or Plasma 12 [facility] Calcium [Mass/volume] in Serum or Plasma 8.5 mg/dL 8.6-10.0 L [facility] Glomerular filtration rate/1.73 sq M pre dicted among non-blacks [Volume Rate/Area] in Serum or Plasma by Creatinine-based formula (MDRD) >6 0 [facility] Glomerular filtration rate/1.73 sq M pre dicted among blacks [Volume Rate/Area] in Serum or Plasma by Creatinine-based formula (MDRD) >60 [facility] ID Date Data Source [id number] [facility] Code Description Data Renee rce(s) Supporting Document(s) Fibrin D-dimer FEU [Mass/volume] in Platelet poor plas ma by Immunoassay 0.32 ug/mL{FEU} <0.50 [facility] A negative D-dimer result can rule out v enous thromboembolism in patients with low or moderate pretest probability. ID Date Data Source [id number] [facility] Interpretation Code Description Data Renee rce(s) Supporting Document(s) Cardiactroponin T pnl SerPlHS 31 ng/L <14 H [facility] ID Date Data Source [id number] 02/27/2021 09:40:56 AM EDT [facility] Value Range Interpretation Code Description Data Renee rce(s) Supporting Document(s) EKG [facility] EHIHDq9vDnQGXvFst2ZkCpZoPAYcZQ1nihi1B2S0aXUpT6RhnEPhz5sjR7DcM6YbBHUzUHSFAF9FtLNq jb2 [file] x9b0+O/s217+3J0b+54e18Zdn5856vu1rkddHThjqU tsOl3CD1sVkZJKZ4suVcnWIlJUAdJ4FKcVyhdVZNQ+HBMlAQFPLZLMeQLRR1AmMQvTSZHQ5LUHupP6Ek AAs9a8OwUI1OY2NP2YqtoLfD8ltBrEDwujlOHrWj1ZgzSxeFpmn3yOIczA2Rq/jsZn07qH2AT7oMd+jW w521qFkvl1mbxq9uaI/2RD+78Y9y8glnlhZQz0wYiC Ksfc+grxWQLTwfuklqq4wTeasUqVNlQSWhiWisUgiuUT4Zd90/OHS1iCHsl3zXonPYfkMunDGSLe8Zt9 /rndN2YL1JTX4JBAkKacnySfUI6WWEe4udluOjdIST6TcHzujroVcnAnnExjZPwYybGTWWJiqA0KOMNA DvUCf6qrx1OL0Sv/tfDCQ53bxfpa2aPKnOwIYMPKaQ /XBlTbUxh7RSD+PSyRNzgfrJgR/dLta+U74P6zoGBUGg0a58diO1oGEmOa+x7VfCZIj1D1WnskTfcr6U g+TyLWFZW9sya+eq+MjBjlXx8/kGxucx1vT2PwwBF4cE8Jt2S9oJ0fiL7CkwTvaxmXJi0KdpGewHy4dR 6FK6YLXRAVQGNr08mloFaLVVY6PYBE1OL97Qk5zb3V TeiizEaoTtds7UiSPveL6VzJ5WAQsRiZSQM+NeE32XYx0w01gDCO2081e2PC0P+1TnbpRbB92Q2LMVIZ kzg6sKNZ26QB6tbPdWEd/OJfuBlekgjgSt5Vp/A+hcI1bG7mtNTMHeOc+M2wdcHoK1Yu91N8qGAx5HH9 QGESfCPtHZH/kmJTs8QC/nltkefQU1KzCbxQ35kCYB FAcGzXKtjikI0H20yi1vB3wW2Q0s74JpR1uFVbKB1ZBon9YAaQUnEPskQfyrhdgkGKtdmHwI98SU+4Iu 5SxWBLuWEOSHyDEgyxQG1P+AN8ngmQnjyp1MzzlAF3EJBB7Go4khE2oRIobynUwDI/dBkie+BhHBOckT 42rJE1+DiPEcQ1+SIZQu3gH3Ht/M/i14ose+MMETs1 nXfwrco3aumajdiPfE8VoIwQLVqH050m6uk7hku1Fa+07QRmdKzLS1R0twdt3+Detention Deputy+09iCb49hhVAFl9 [file] NpL86+1BF/97jcR/B3cU+X3u1+wqV/medical 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 teacher+p/TuFwkL+V31u+iJSu9+bsCamXexeygpPUnO81W8vCRnKH s6XC0AO+ndL+I+Pv1hRrzF0nnQ/nvXn3f3vtyce6at 7dJkC4YTUAGKDydWepclsvOxelc+3F7uw+3lPpyX+foo1e04TYrVe5b06CL6Rntini3/p+/g5/Qdj7Ah kONgnFB4d++ld9+Y93fmm47t1PhwFBrZORTlc6m8H5znb+LbkDXDUn9T8LXV10SrbYP0Y1cyQ88Tx/27 OXibk/LPsMWAUFoxtiUxUm1g1HJhy8D1pf0G44BrXe +sbJinhISfJ24Y09Bg8T6QMW23edacH/zeF0yEWkTeqKz6a8xbzcGoV2Ns9+L3JHdx/0Uve7qkoMwIN4 l1Vr3cqZ9/F77bLX/XHL9Lv+3msaGmuE7fd1m+Xujjm+nXzYNvpl/37i/93ehtpr/rB8eZ/q6V/3nL37 3N0t+En6aM880f363sg3x0xgh1CQjuywp5k7+Z/m63 [file] Wa5ljePVSMSuehurTMjVDe0fOy31E7CRUm/HXgeKKsqvnt87wv78MyvJ1ohdQ/L+O8dLXn/VzQXGD/Pipe Installer au8VPzzfVE1nIk/HNxfd8/uba+b7NcWt+0FiUb2IfNkA+SLgGHc7Mwr/V9BWR56Dzu9BxKLeR1LVT1Q9 NFfL0ksg01X3egNS6/ZaJ0Yi/6p/dRjKsxz2I9dq8L J+AiElGQdiwFJCwM31fD5QRSzvnhnLdpQcxBVEJQYTvAgDCnANbTv9kjJfMqZ6Hk0GKdnEfTjEfdefE6 sZWlHzKSIYKBEPmIwIRomFwuzAFOCZlzP8WgmAijnJ7uLVDX7jFLABrZoIt4tMFrkh7V09JvbOgjm5td 9lZ+5blu0kGNM989vJSdTTjXBlViPXpv77U856aWpG +IWbtjYeoYSg1jMyso6HGMoMj6KjbbJvjSBtnANsGZpRwxG73wLGxgBYy4Tk7+r0YOXs8h6+L3yBpL+/ efh/+J8JE7978AVWUhJS7imdnAKCfJc8FMxApyRN1qjWYrnEEYuuNdwXtairxhDTjM23JkElH9GxvCIW 2E3wZTw3O3yQQsLA1vhKiKw69bqCVca5PE06k+osPR TJhWNLRN9Rt2dXQfTtIffkcbfBr2AilVYTuAd3RaqJZysp+h4xQanjILBRkNQMCN7MK4mQ9oJ5zNZcpW YS1OhrtGL5GbzMN5cVUPxIpeDAPaNGoGqpStrWyydtfsVxfUk5uZybdYmRaGi2M8FTxLdSlThhsOjjRA 4ukU6kYxbUrmR7rwv7H8loNcB0zRV397DxlYCBPH2F UmeVkmx+TiiPUaewM1fmn/sisvWTPzFyXLepx/Uealluj+za8bDKD7C2k5gQqBziEf0/JFh7+DwTl1jn qwM9Gu3msAaBq7zxZg1xQ+d1vRk6At+d+h/qLMS/0Lpl+ULKcp/eNkQGm0LHQr9BbDJWaN9QCzqAgmwO mTj/JPc0j5k9VinM3rQDqs0ag0cC2jH4roaw+pekQ/ NjaOM/Py6w0r+Zeinab/EHGPTv0kN5zl62oK/oX/fKSJTwq+rH6N15/2L5cder7/czWdxLk74yhY7sdmyob 8BuJJoyiurJzprygTqYiW2hjYxxYIYLlBalP3wzQ75A2qeHWp/0YpHPQ3mSGQeoN5PnOCht/j8MBmRdD zxpLq+ok/vCRZ31zqxjizrGxSRsfWvqqXFghEYIuT9 70K1KRECve6rz2v6zWFOnYzf52qzjiBeU8kg5SVUa5rFXehhH/f9CruvAPas4Ikzf37q6YDkB/PB1lW0 IrsOpf+tlvrvTdJaPkfpPnC0aVBl+CzJs8p/15JOJ+emqaiyMI83WMmjTGyt+I+zPfwrawI+cGl8k6qR p89ejPRzVlhNpLfgl5hy7x0H8HqmXLwyh0NC2JtxgL WAkl91AwIpWDtMfB78Ztyc4Tk1WfdvDVuap8JwTvE0UMpntkHe2OgRJ9gVaiIZeGPxWKFZREEkgyFMo6 9ptJR6PFgNygPlWwWsfAmBL2YI3C4H8bZJMmzXHmU3jLCgxbpn0R7fRgeGHx/CXdV5x6d+upNgY/p0fp XTzDR+zjUM6T9z52DpophxS6k+IbI6ym0LpGAvXm9A 0NNDuN2rjtc8tHuyxXZJ+ImdaoyF7XYulyx7n0d1np4WVNr0Q124wOAVTLwFhsZY7YwCZaZXcdU5DQK0 16t8+w7F1mVMRG9BFztBzz8HS5us9nLOeukmVR63czuxozy4l5pB9pzfW8u3by1R2fYaUtJ/H9AL2L+0 /60vuCq6Ff6lx26P48pzK8R51qCN9XKxPz0hKj3T1N Fw532iG+dyvCm30p6eZSBOqO5zL43FjZmbptVZrU6CY9iNGNavgRNRSlFXtgymkhTXlBA9I7dD5hPQoU kkZryYNItIgKegu6GPvzFMdK6hBASFrRA2LyfCmkBFhKgyGu0Pr0epPwR/BjIF4B9hVucRhHQrYPjady YyPxSCgEjz0fbKkPm7c/VfiObRVp1SO0zX1CqfO7ep VCKvCrhWsNXTNazodJbp3J8UXxTMcRRE/Wp40VChdxxarvS5bwLx66XmRXZCwgw9I3cUHOb/ek6n7V9t aXbhq7dEhzQoIC1zfFZAaVTbhCvZRX4UV1nJ2hYmnfVv0OlUPp4zlxe36kbT5bQ0fGXtUWIQjPPknVuC FHGLeX+xB2RVMlhbTzNcY5c/i7U/qpUd9iwM2HRZ65 ZlQZiCKzXxaBvaHbzN7WGxg1djRAB9OwhCPAK+hPR6XvfQK30Y8flAlVMuiU+QgbwoYwHk/PKXmZkpcp eYG/+3nKjeOv8XyM3sD7181W+653DGxMT6Va930LMpQixgqTRJy64pnaGv4FN5Yttbkk098Qj+m5+Dk9 0tK9jS5iZ5Xdtilsd0tmvlbRIJZ+ZUv/sqV/2dK/Jahaira [file] 9sSaLUcBELJOVXQFF1Pq2FHHyuQZKARZZISHRsHdRp WyWc6TvbYtWg9xJhS/s/BdXz3OhK57FV9LkTz+xXUKCIPsv29InDjBQQMNfKYPtESgE2kmJUtbOTatDH XToScQpqRvx3pMJA36CBpMaYTFeJm3PSmCHC47NGKezYM90hc6DP4qPcODuMUXGsYGuFF1fjXwYMKxkc wZvCQ4QVLoQySCZb9u6kzXWPdFi/dI487Z655jvoxC uoGZOwMTTqmLAAaEUYnsyKlAz4FwPAEDmwIKBGXQfWxZBjLOU5FSgGCziQFzuTcak+vK12KCBgjXThL+ MYx+XTSIFCIF++r4gW6MPjUeZxCLuRYthJDlWFNIgSbSIQ2xp5qisth5kKVaLRcmIFSVRXvIh0pBXkG1 OS3mXQkUYLC682fVS9GmMJX5XxGehXTWEWoI6ze88Z 0M7BJJr+QEu0pevabyPk0HGGIKPPRAH2OUTdNL+LHGWaJmEgGYy68Kx/F/Gv+nfg8zBfSCjylkHSzdVP SAghY85SiCBj6AcLRZ5jwMMzhKLBOF2RktmwpoOmATwLyp+VGjnKeqol40cSKuEJE5VwlV9A1J+8HimL fmU21PMsdhn+iJa/PYwB+ZoBEprwkOudAIybPO52My tHQ3ObuOR0kSpRL0gR0b6OTi1XrFUJBbQI7pt2AJlVMVgX3Dqc2BgReGpRQGQJ/g3eLbOK9fLZ7DZ/nK YvCaMS8EUGjyk1INkL5CFde2ES/Aqz8lix7zuKurwMrKNSvS9Ptz9nJ6NIcwuOIRwEtkzV1cGjjpoFTC ZPRQKXQpUBnVPqCJjHJ5tXmNJlfCtCZXJNfSKVRKGW PXpErRtuXSPW1TGPCZfBfUX1FxIZMO5eKS91dc4in0oDas0pSKiBgbUJbOQCKXUXepzFK6T/Ad8JbBVC WcwgPgzRUG6CK+J4laIQBOdV2uLT+yWv2HLlKhU0pcXtRxnYctVaqTMPSIZCkVDLy36YtDSl0lW13Sno 21E8uVb0s1aLJziS4EmNgqaDpgB4aEWVnlhATSvvIj Knn3oX4rZijel/4sdnfYXtnOeuSQlz8BKnJCXKNWcw9QLOuMrnwcXrx5BfVmTkIL1n4THemYEt34rQSA PEknaAlnkXbCiDHE+rJ8tnZa0XV+acid leveler+m/KDnfYzVcHWrmxBnu3vgPz1PGXMS63lALY26mRWL+/1+Ymq [file] 76i3+v0vg4bD/2V+9+8fHtZ9+9//ai5x328ELO63/8Shv6B/9S4qS/+Ez9ql56+cNc83941G6/5tW67p /9j6/evX/78ptf/+aLD+9+ruN6/sTnA164Waqv/R/f vVeUy/V56//0DrYtbw30Ob7/2vubQ75/+hev2L7/+PblV1+8/+W7b9/ef/Px3c//wb/bove4x5/+5c// +Ye//umH/3j79//99uX3f/2f3//1b//89uEv//7DX//29m//rfR/+6e3v/a7if51cQ/6gezP2/X5K6n9 4td/r3J9luU7Hej/+tNP/4v73K+XeFbf7lu+02+B11 vY+cHb9dX/Z2YsnL6q/8v1L+vcxz8Md1Utv1D8MVaMmNoxsF3DSWbQ0/bd0tUawj+YppMn1f77+OE/f/ feCa7Dj2+0Rhzw231k0sLVj3ie/ubDFx+/+eSM6yf/mlH+2f2/Ed4IN//PF7JnZ/7VzqkvS1nO2YKQtZ 1yF/z2hz//7V/e/fi63725QTboD+mbKuvcP/oTL9KW udKN4Jo/3voBf/Ph7Q9//tsPf/2/v//zB8n2Fvu/2vxzpcY/OPgD/uuHb9/+43+9Dv4Pf/fql5gnwkp+ tK4y6hT+9eNP//Ge02ku21CGK8qKQ60M2Xrw5+s86Tsofhfv+/WaB+yvN58xqbI6W8h4DV/40ESoA1++ /39++K+/x6wcZ4yjm4+8+5ato7FE3/1n++1///Xf/u yFmo8U0xg//Sj0T27qwxsh+Jff/6/ff/9ff/j+zz/nbsm81O/484///7ycfx8jg//9/z5R/PCXv/zp83 Pxrq8qX+eMf/BL605glZZpj0+SJU9w/+DjD7//n3/+w+9fh/j5/fb/nyn00DvfXvUi/tvyPl4uVs5/8q a0z3H2N477/f7vd+xphp/5N7/+9bv3H7/9nI+6S/JF /z8/uV+V1F1B7Jin5//UO82V86/+840X/MNa0idxcRjFRZuvbc18sU/la7mls9yUUalX+fpZPiq/+Heather dx8+d6wGHI2R9XosfrkCz+7hb36yRd9nAdaWnv7QNO31tfgqfnZjlNGkNM0SDX6eu9WbXvT2XCYcx7Oi BVeoLNp0iLMxMNxwbgJki7DypxgnT6Twy6HeImTwTF WaDlBpXbl3UUDzXaA4mNVaDyDpKQKfT1LvJTGzPvG3WlZkJXZHCB0WMBBeqxWxQkJdNBI+XdQoTN4wye hkPMZtb4RwILblCFqeDSKvS7H6fQxdYUVfW8DovC15IAOkG6BthiK4VCV9YZZoTaEiIUYpsZQxFCDdHQ I+DpLuCW0zrpzaEQYnk9PeTJzrQFE3fL8gFQkPUUDQ YSgDBOlpOiV8k50muxHRTCIlSKBlSM2PxbLynTgrptApaCLdOQD4PgFmRGV5RUAlEIGnVOQDWNFaWWRx KUPgWJJwS1IvnLnlHDfDVXQTUStPHPpdDoVee0F0LSDhwnMHLZrLCUXmVSYVZUcPQqCuSwRqFyI9VSGs N4BfxmQnxIDkXMJIPJkiLxlwYJHylS4bpGkgG7ZrBY W2j0YxOS5ET0XmLDCiWCYXOBX3z2CxMNSixqaljkcqXjSwPJFfDSHjOXFeWH7Jcz1xxVYtxlVdVHDMAO anLhxcOD5zrRdxfblzS3HxwFCqTTL+JlAkLS0tcl9+HlGqSREmKun6FADaQBmoXBKeBWFzCHMbA0voMZ NsOzWkRXZcCzWlVZ7Ku7AuhACeOy4ssfThHnhMjJCp PahvTAGrYCRfHCMzLlNDWNNgOGQxUTQtWNV2NPZlGGZoVEykEXStGBM7AyZbQMTsDCLcEE3iKzFzXTJz GfhiNWjuGOItSLJjwhVVYQRcEHD4SRZ5FaWlQBEoZUSdCHaiYXFxURTsETRqVIV7POL9QYUuHqSyFPEf VDYpBBMtJRRrZBUlucGOSQPuDQIgKNF2ZFDqOVQyYY ErJVclXODuKSKeDQoeNAYuBFQqTC8iVlXfXKRiXACcNBsgOPJnAKNkxgXZLOOsLVRrPGJpDCAlIQReWJ NyGTvbSIQeHVFyQEAyIGHyYBIhJQ9aTjLeILRqGHF1EXJgDKMmHLYbaaADWCXmEWMbLBh2KUNdXJNxSO JaMFrzWHVzWMYePWH2RSSdFNHoBJ1pXsUyYRRdJIY3 WjJdLXSzXZFosyDZGOLhWEJrELI2CoRqWEGlIYBlDBizKNCqYMEeZIcgJSMtBLGjAW9iIwJiWVUyLTBu UCvzELLtWUTwpjDAZTHmJGYpNVMxWrBzQRRbOPZnOEekJXNdGMX4Jpt2TGKwPFYlGK8lBcEnZJYwRXE0 MDkgMDAwMDAgbiAKMDAwMDAwMTczNCAwMDAwMCBuIA neWWRgPVRzEFK9PZTuDQIkRM0tVdYcGRGiPUJdTSIzDuD1OdRvWsFNqAVwwIvzvpp9IJpoK9f1IWBuNQ zoZC5ntuAcMTEiZkfeDk1qsYJ4MUOmJqxSJv9Vf6WqscM9voGgDzU3Bdp7QmQxYZ1S ID Date Data Source [id number] 02/27/2021 09:36:18 AM EDT [facility] Name Value Range Interpretation Code Description Data Renee rce(s) Supporting Document(s) Progress Note [facility] HSHDMq3bObMSCbAv54/CLEraPTJlu6HyIAtrERy2LCwxXKOkP6XhEIC3aE3iDEZ1NAfCFpHxPfIfKSBq lbm [file] ICAgICAgICAgICAgICAgICAgICAgICAgICAgICAgICAgICAgICAgICAgICAgICAgICAgICAgICAgICAg ICAgICAgICAgICAgICAgICAgICAgICAgICAgICAgIC AgICANCiAgICAgICAgICAgICAgICAgICAgICAgICAgICAgICAgICAgICAgICAgICAgICAgICAgICAgIC AgICAgICAgICAgICAgICAgICAgICAgICAgICAgICAgICAgICAgICAgICAgICANCiAgICAgICAgICAgIC AgICAgICAgICAgICAgICAgICAgICAgICAgICAgICAg ICAgICAgICAgICAgICAgICAgICAgICAgICAgICAgICAgICAgICAgICAgICAgICAgICAgICAgICANCiAg ICAgICAgICAgICAgICAgICAgICAgICAgICAgICAgICAgICAgICAgICAgICAgICAgICAgICAgICAgICAg ICAgICAgICAgICAgICAgICAgICAgICAgICAgICAgIC AgICAgICANCiAgICAgICAgICAgICAgICAgICAgICAgICAgICAgICAgICAgICAgICAgICAgICAgICAgIC AgICAgICAgICAgICAgICAgICAgICAgICAgICAgICAgICAgICAgICAgICAgICAgICANCiAgICAgICAgIC AgICAgICAgICAgICAgICAgICAgICAgICAgICAgICAg ICAgICAgICAgICAgICAgICAgICAgICAgICAgICAgICAgICAgICAgICAgICAgICAgICAgICAgICAgICAN CiAgICAgICAgICAgICAgICAgICAgICAgICAgICAgICAgICAgICAgICAgICAgICAgICAgICAgICAgICAg ICAgICAgICAgICAgICAgICAgICAgICAgICAgICAgIC AgICAgICAgICANCiAgICAgICAgICAgICAgICAgICAgICAgICAgICAgICAgICAgICAgICAgICAgICAgIC AgICAgICAgICAgICAgICAgICAgICAgICAgICAgICAgICAgICAgICAgICAgICAgICAgICANCiAgICAgIC AgICAgICAgICAgICAgICAgICAgICAgICAgICAgICAg ICAgICAgICAgICAgICAgICAgICAgICAgICAgICAgICAgICAgICAgICAgICAgICAgICAgICAgICAgICAg ICANCiAgICAgICAgICAgICAgICAgICAgICAgICAgICAgICAgICAgICAgICAgICAgICAgICAgICAgICAg ICAgICAgICAgICAgICAgICAgICAgICAgICAgICAgIC AgICAgICAgICAgICANCjw/bUTdY0hpeUSbcjC3Z2wlIe2XXw8VEW3sb0CuEVQeWXytdsMoDboDBuIhPW LsBcqUDsh5BTbnRI5KhVQhR2QmF5CaUOdxWG8OKGXzIYQsvDWzHGVrVBWcDnQ0YMYiTFgpGU8TzXLuEN sgNSAwIFIgNyAwIFIgOSAwIFIgMTEgMCBSIDEzIDAg AbOrBJFhFJBjGZdyZGHBYB7IOhZbI3OtvC01AMuXSl3+PJuycsTqPjvMAoT7OHRpd6EjHHa1AF3QUNQo Gpvxd5BuZsikMMVLCZswXJ3PWRQ8JIA9MFSsId9YZDLcK378hgKuLM7GIi8EHlAdIJ0eso0CVtkoIDHv CfwFGsd0ILrcDI5BuDAvFOqMqa9flmNhobCCw1Fuhz XlsCQDx4VctvWfJVUYKKVmMOO6TNHWLQRcyFP8LsF5QmZhYuNqPGG5CJKnDN1wCVcuNU5FQDY0EYfoHT AvTGIlS9yLGjQoRSJbBXGzoGgrYB1KYzEjL6OqgmItwGIvOyQfTXUHUj2+PXzlsjEiYvvHPsL1INWny1 RrVSl2EG7ZQTZfLIopLU7TRGHfwH8aFMrfLJ4HQqWq RNAvVGKYPgToO35vaRUbKZr6D0UmAaIiBJVfEyoaEJLxFThsWfTrJTUmUiVqPVwnIZ4+ID4+RIxjVQ9I HSyzndQrBGYgJx9KCIMpLWHbTM9tXZKsQKQyN1P2mLfoXBTYCeDvQ7sgwicgLF3fEASnX279gVcsdmRg NQH2OEKlLg8RWHNvTVB9UADdiFZcPpCoAWHYANkjKQ 4KuWEgYNX9sR4tVYbqHJDkHRFiC0rKFuUduLciLS38cOzcqoRniBXhQAd+Ed3OZP2lk1QvMBz6pfYcCK jlWBHgMGlhBPUvIKGlFNJzMEX3VZA7LJMWDyMaGEXiYFXaXLqpQTUhWUBngn8ACJMgHCH7SIk1LuFnYE BzRSGaGXkkWEXeYLHhGhG7ZTKgFWDmDR6OJkEoKUQk CTLgLClmFJAuGKSkjt7LMBZbWEThYPInSbLfQIMvYPLyYOyrAQElBIL6HpPlUJXvEPZuXI4PVyMxMHMh XZtlOzrvLLAzFOQxkd3NQHNvVIMxMJKuLlBwWFHdBXIjBZdwIAHtMATmQQD6LWAqYHBmKQ8KLaQiBSEm EODzBLCnUJFeLJNwol4YNRPwAWTyDCI8CpBmJUCcQV OdUFfbGEEzIFF6ZKdiJKRbQMYeMV4FGaSnUIFyXOmwCeuzNNBdWTQtqz8XJMDoULHvKpM8SHImLEOiSV CfCCazUKBaKSAjAbe2PRQvMYChPO2RKlVqWVRdHuV4ISHlVKYgPXIpbu9QKYIrACHvYdx1RXYySKXbAC KoQOzyISWqIPPwZSwyVLMzKEAlOA3VZiOqTNAtHfXs MNDfGQQsIMMvyp8CYRTfQAWqTDX6NYFlJAWuMQJjDZnsCFTrWVI7JTYeIWDvZWJfNX0RFrVaLDZdHxS4 LCVzTQLqRJSwaq9ZTHYmJDMaAGO0LjLdALQeGFNyBEwiZWKtSWT1SYbnLYJmYSKnQB9GTyQyNCAtJtef FLQwQCRrBKWrwu2HTHLnKLQuXrFiGCOwGKJaHEIxAC pxUWGeSFL2BBT5PHDkDHHfAU9ZLlSbQTQeKegcGUOnHMQtRTHxxc5KIICdDOTeXAQ1JEYsIGOsSTLvFR jtQXNdGYG2TMlnSGNfMTXuGW3LTfJnWKLyGpcxCuhqUGGtEFCzzw0SUBNdIIJxQOC6IHNoMBAaEUApUJ vdJRMlCJAqDGk8AUMzTTCjLC1VLnXaTTJwCIZ7Eqoa ZDPyBPHlsa3HOVEsZOS7TEn3ESTgQEUfEXOnDNpsVCXzVMAhCww3KDPkNIYqAM1MJjMtHBZbROR0JvKg HUDvMHTwvw0KHPQgZGK8QwiuGoEcQHSjLSOmWCckXAZaKSVnDNj4GSAaQUZcBF0QLvOyVReaALWOSct8 NAfnQ7f4NWZ0NM6XR4Rad0YsGbyiRQHWJSpxFS4puj WvQKTmFz5ML3wRUlnzZCTySEO5RuJlYIH4WdOjTtW7IDVmGImtBkG9PiWwYr1xJFOeCAYmITN3JRKqDP UlSKUyDeI2TLV3HRSlLZbvAWZzLbRgGN3NOz5GRcK7QZW5oBOyHq4NLNAoDpCAEeCdUD7XHWi= ID Date Data Source [id number] 02/27/2021 03:25:23 AM EDT [facility] XR ABDOMEN AP ABD SUPINE ONLY [id number] RESULTInterpreted by:Alva Khan [facility] INFORMATION: Exam: XR Abdomen Exam date and time: 02/27/2021 1:58 AM Age: 30 years old Clinical indication: Other: Abdominal pain, constipation x 3 weeks TECHNIQUE: Imaging protocol: XR of the abdomen. Views: Frontal supine view of the abdomen. 1 View. COMPARISON: CT ABDOMEN PELVIS WITH AND WITHOUT CONTRAST [id number] 02/17/2018 3:22 PM FINDINGS: Gastrointestinal tract: Nonobstructive bowel gas pattern. Organs: Surgically absent gallbladder. Bones/joints: No acute osseous abnormality. IMPRESSION: No acute findings. THIS DOCUMENT HAS BEEN ELECTRONICALLY SIGNED BY ALVA KHAN MDThis document has been electronically signed by Alva Khan MD on 02/27/2021 3:25 AM Name Value Range Interpretation Code Description Data Renee rce(s) Supporting Document(s) ID Date Data Source [id number] 02/27/2021 02:41:14 AM [facility] Name Value Range Interpretation Code Description Data Renee rce(s) Supporting Document(s) Cardiactroponin T pnl SerPlHS 26 ng/L <14 H [facility] ID Date Data Source [id number] 02/27/2021 01:14:33 AM T [facility] Name Value Range Interpretation Code Description Data Renee rce(s) Supporting Document(s) Cardiactroponin T pnl SerPlHS 24 ng/L <14 H [facility] Hemolyzed ID Date Data Source [id number] [facility] Interpretation Code Description Data Renee rce(s) Supporting Document(s) Albumin [Mass/volume] in Serum or Plasma by Bromocresol green (BCG) dye binding method 4.2 g/dL 3.5-5.2 [facility] Bil[facility].total [Mass/volume] in Serum or Plasma 0.5 mg/dL <1.2 [facility] Calcium [Mass/volume] in Serum or Plasma 9.2 mg/dL 8.6-10.0 [facility] Chloride [Moles/volume] in Serum or Plasma 105 mmol/L 98-107 [facility] Creatinine [Mass/volume] in Serum or Plasma 0.88 mg/dL 0.50-0.90 [facility] Glucose [Mass/volume] in Serum or Plasma 94 mg/dL 70-140 [facility] Alkaline phosphatase [Enzymatic activity/volume] in Serum or Plasma 84 U/L 35-104 [facility] Potassium [Moles/volume] in Serum or Plasma 4.2 mmol/L 3.4-5.1 [facility] Hem[facility] Protein [Mass/volume] in Serum or Plasma 7.6 g/dL 6.4-8.3 [facility] Sodium [Moles/volume] in Serum or Plasma 140 mmol/L 136-145 [facility] Aspartate aminotransferase [Enzymatic activity/volume] in Serum or Plasma 39 U/L <32 H [facility] Urea nitrogen [Mass/volume] in Serum or Plasma 10 mg/dL 6-20 [facility] Osmolality of Serum or Plasma by calculation 289 mosm/kg 275-300 [facility] Creatinine/Urea nitrogen [Mass Ratio] in Serum or Plasma 11 [facility] Bicarbonate [Moles/volume] in Serum 21 mmol/L 22-29 L [facility] Alanine aminotransferase [Enzymatic activity/volume] in Seru m or Plasma 28 U/L <33 [facility] Anion gap 3 in Serum or Plasma 14 mmol/L 8-15 [facility] Glomerular filtration rate/1.73 sq M pre dicted among non-blacks [Volume Rate/Area] in Serum or Plasma by Creatinine-based formula (MDRD) 88 mL/min/1.73m2 >60 [facility] Glomerular filtration rate/1.73 sq M pre dicted among blacks [Volume Rate/Area] in Serum or Plasma by Creatinine-based formula (MDRD) >60 [facility] ID Date Data Source [id number] 02/27/2021 02:17:08 AM EDT [facility] Name Value Range Interpretation Code Description Data Renee rce(s) Supporting Document(s) Leukocytes [#/volume] in Blood by Automated count 6.5 10*3/uL 4-10 [facility] Erythrocytes [#/volume] in Blood by Automated count 4.23 10*6/uL 4.1- 5.3 [facility] Hemoglobin [Mass/volume] in Blood 13.7 g/dL 11.5-15.5 [facility] Hematocrit [Volume Fraction] of Blood by Automated count 41.0 % 3 6-45 [facility] Erythrocyte mean corpuscular volume [Entitic volume] by Auto mated count 96.8 fL 80-96 H [facility] Erythrocyte mean corpuscular hemoglobin [Entitic mass] by Automated count 32.4 pg 27-33 [facility] Erythrocyte mean corpuscular hemoglobin concentration [Mass/volume] by Automated count 33.4 g/dL 32.0-36.0 [facility] E[facility] distribution width [Ratio] by Automated count 13.7 % 11.5-14.5 [facility] Platelets [#/volume] in Blood by Automated count 284 10*3/uL 150-400 [facility] Confirmed Differential cell count method - Blood [facility] Neutrophils/100 leukocytes in Blood by Automated count 74 % [facility] Lymphocytes/100 leukocytes in Blood by Automated count 22 % [facility] Monocytes/100 leukocytes in Blood by Automated count 4 % [facility] Neutrophils [#/volume] in Blood by Automated count 5.07 10*3/uL 1.8-7 .0 [facility] Lymphocytes [#/volume] in Blood by Automated count 1.48 10*3/uL 1.2-4 .0 [facility] Monocytes [#/volume] in Blood by Automated count 0.26 10*3/uL 0-0.8 [facility] ID Date Data Source [id number] 02/26/2021 03:16:00 PM EDT [facility] Name Value Range Interpretation Code Description Data Renee rce(s) Supporting Document(s) Troponin I.cardiac [Mass/volume] in Serum or Plasma Less Than 0.015 0.00-0.09 [facility] Less than 0.09 NG/ML Negative0.10 - 0.77 NG/ML High Risk0.78 NG/ML or Greater PositiveThe WHO defined the cutoff (definition for diagnosis of IL)for this method as 0.78 ng/ml. ID Date Data Source [id number] 02/26/2021 02:40:00 PM EDT [place] [facility]) Name Value Range Interpretation Code Description Data Renee rce(s) Supporting Document(s) Troponin I.cardiac [Mass/volume] in Serum or Plasma less than 0.015 0.00-0.09 Troponin [facility]) ID Date Data Source [id number] 02/26/2021 02:40:00 PM EDT [place] ([facility]) Name Value Range Interpretation Code Description Data Renee rce(s) Supporting Document(s) Troponin I.cardiac [Mass/volume] in Serum or Plasma less than 0.015 0.00-0.09 Troponin [place] ([facility]) ID Date Data Source [id number] 02/26/2021 10:38:00 AM EDT [facility] Name: COREY CORTEZ : 1990 Age: 30 MR#: [id number] Admit Date: 02/26/21 Provider: Stoney Cristina MD [...] % (Auto) 67.7, Lymph % (Auto) 24.8, [place]wey % (Auto) 6.0, Eos % (Auto) 0.7, [...] Total Protein 7.9, Albumin 4.2 02/25/21 23:59: Quu-G-Fbpglwancks Pept 226.00 H 02/25/21 23:59: Magnesium 2.2 [...] to mexiletine 7. Obesity Hospital course: Patient pleasant 30-year-old white female presents having experienced abrupt chest pain waking her up at 2:00 this morning going down her back. She has been advised by her neurologist on many occasions to have pace maker placed. She follows with [facility] cardiology and neurology for the last 20 years. She self discontinued her Lasix and her mexiletine because she did not like the way it made her feel. We have placed a call to her food safety specialist Dr. Roldan at [facility] to coordinate transfer. She is clinically [...] Discharge Plan Free Text/Narrative:: 1. Follow-up with food safety specialist and neurologist at tertiary care center for [...] Condition: Stable Discharge Detail Disposition: Transfer - [facility] Med Rec New Prescriptions: No Action potassium chloride [Klor-Con 10] 10 mEq Tablet Extended Release 10 meq PO DAILY RF: 0 furosemide [Lasix] 20 mg Tablet 10 mg PO DAILY RF: 0 Diet:: Cardiac Medications Medication reconciliation performed by provider at discharge: Yes Follow Up Care/Instructions Diet/Activity/Wound Care..: 1. Follow-up with food safety specialist and neurologist at [facility] for consideration of pacemaker cardiac catheterization and reinstitution of her muscular dystrophy medication which is a class I antiarrhythmic the patient self discontinued 2. Bedrest 3. Cardiac diet *Discharge Patient* Discharge Orders: Discharge Order (Routine); Ordered 02/26/21 Ordered By: Stoney Cristina Dictated by: <Electronically signed by Sotney Cristina MD> Stoney Cristina MD 02/26/21 1752 Stoney Cristina MD SIGNATURE DA Report Cosigners: D: STRAHaley 02/26/21 1038 T: TOM 02/26/21 1038 CC: Name Value Range Interpretation Code Description Data Renee rce(s) Supporting Document(s) ID Date Data Source [id number] 02/26/2021 10:36:00 AM EDT [facility] Name Value Range Interpretation Code Description Data Renee rce(s) Supporting Document(s) Troponin I.cardiac [Mass/volume] in Serum or Plasma Less Than 0.015 0.00-0.09 [facility] Less than 0.09 NG/ML Negative0.10 - 0.77 NG/ML High Risk0.78 NG/ML or Greater PositiveThe WHO defined the cutoff (definition for diagnosis of IL)for this method as 0.78 ng/ml. ID Date Data Source [id number] 02/26/2021 09:58:00 AM EDT [facility]) Name Value Range Interpretation Code Description Data Renee rce(s) Supporting Document(s) Troponin I.cardiac [Mass/volume] in Serum or Plasma less than 0.015 0.00-0.09 Troponin [facility]) ID Date Data Source [id number] 02/26/2021 09:58:00 AM EDT [facility]) Name Value Range Interpretation Code Description Data Renee rce(s) Supporting Document(s) Troponin I.cardiac [Mass/volume] in Serum or Plasma less than 0.015 0.00-0.09 Troponin [facility]) ID Date Data Source [id number] 02/26/2021 09:42:00 AM EDT [facility] [address] [place] [id number] [phone] NAME SEX PT STATUS ACCOUNT NUMBER COREY CORTEZ ADM [facility] [id number] ORDERING PHYSICIAN LOCATION MEDICAL RECORD NO. Victoria PA Al-Sergioy EW [id number] ATTENDING PHYSICIAN DATE OF DATE OF EXAM/TIME [...] on 02/26/21941 Date Time CC: Tyrone MATOS ([facility] Jose; Caryn Jacinto MD Techn: MANJU Trans Dt/Tm: Trans by: DT Prt Dt/Tm: 1: Total DLP = 0.00 mGy-cm : Total Radiation Dose = 0.0000 mSv Lifetime Dose: 19.6248 mSv Name Value Range Interpretation Code Description Data Renee rce(s) Supporting Document(s) ID Date Data Source [id number] 02/26/2021 08:45:00 AM EDT [facility] [address] [place] [address] [phone] NAME SEX PT STATUS ACCOUNT NUMBER COREY CORTEZ ADM [facility] [id number] ORDERING PHYSICIAN LOCATION MEDICAL RECORD NO. Julien DIXON Viraj-Dana EW [id number] ATTENDING PHYSICIAN DATE OF DATE OF EXAM/TIME [...] on 02/26/21845 Date Time CC: Tyrone MATOS ([facility] Rom Contreras M.D. Techn: BUSMI Trans Dt/Tm: Trans by: DT Prt Dt/Tm: : Total DLP = 0.00 mGy-cm : Total Radiation Dose = 0.0000 mSv Lifetime Dose: 19.6248 mSv Name Value Range Interpretation Code Description Data Renee rce(s) Supporting Document(s) ID Date Data Source [id number] 02/26/2021 08:14:00 AM EDT [facility] [address] [place] [id number] [phone] NAME SEX PT STATUS ACCOUNT NUMBER ROBERT CORTEZR F [facility] [id number] ORDERING PHYSICIAN LOCATION MEDICAL RECORD NO. Victoria ZACK Paulino [id number] ATTENDING PHYSICIAN DATE OF DATE OF EXAM/TIME Tyrone Garcia MD 1990 02/26/21 0754 TYPE / EXAM MRA Head without contrast REASON FOR EXAM to rule out cva COREY CORTEZ [id number] 1990 ADDENDUM Clinical History/Indication for Exam: to rule out cva Called for Critical Findings by Meena Thayer to Dr. Cristina on 02/26/2021 5:21AM [place] Time;Call for Critical Findings MR ANGIOGRAPHY HEAD [...] on 02/26/21813 Date Time CC: Tyrone MATOS ([facility] [place]; Miquel Dunn MD Techn: FROJO Trans Dt/Tm: Trans by: DT Prt Dt/Tm: : Total DLP = 0.00 mGy-cm : Total Radiation Dose = 0.0000 mSv Lifetime Dose: 19.6248 mSv Name Value Range Interpretation Code Description Data Renee rce(s) Supporting Document(s) ID Date Data Source [id number] 02/26/2021 08:11:00 AM EDT [facility] [address] [place], [place] [id number] [phone] NAME SEX PT STATUS ACCOUNT NUMBER COREY CORTEZ Philipp [facility] WILLIE [id number] ORDERING PHYSICIAN LOCATION MEDICAL RECORD NO. Julien Paulino [id number] ATTENDING PHYSICIAN DATE OF DATE OF EXAM/TIME Tyrone Garcia MD 1990 02/26/21 075 TYPE / EXAM MRI Brain without contrast REASON FOR EXAM to rule out stroke COREY CORTEZ [id number] 1990 ADDENDUM Clinical History/Indication for Exam: to rule out stroke Called for Critical Findings by Meena Cristina on 02/26/2021 5:21AM [place] Time;Call for Critical Findings MR HEAD WITHOUT [...] on 02/26/21810 Date Time CC: Tyrone MATOS ([facility] [place]; Miquel Dunn MD Techn: FROJO Trans Dt/Tm: Trans by: DT Prt Dt/Tm: : Total DLP = 0.00 mGy-cm : Total Radiation Dose = 0.0000 mSv Lifetime Dose: 19.6248 mSv Name Value Range Interpretation Code Description Data Renee rce(s) Supporting Document(s) ID Date Data Source [id number] 02/26/2021 07:20:00 AM EDT [facility] [address] [place], [place] [id number] [phone] NAME SEX PT STATUS ACCOUNT NUMBER Corey Cortez ADM WILLIE [id number] ORDERING PHYSICIAN LOCATION MEDICAL RECORD NO. Victoria PA [facility] [id number] ATTENDING PHYSICIAN DATE OF DATE OF EXAM/TIME [...] on 02/26/21719 Date Time CC: Tyrone MATOS ([facility] Jose; Sergio Oconnell MD Techn: YAULU Trans Dt/Tm: Trans by: DT Prt Dt/Tm: 9: Total DLP = 1100.00 mGy-cm : Total Radiation Dose = 16.5000 mSv Lifetime Dose: 19.6248 mSv Name Value Range Interpretation Code Description Data Renee rce(s) Supporting Document(s) ID Date Data Source [id number] 02/26/2021 06:52:00 AM EDT [facility] [address] [place] [address] [phone] NAME SEX PT STATUS ACCOUNT NUMBER Corey Cortez ADM WILLIE [id number] ORDERING PHYSICIAN LOCATION MEDICAL RECORD NO. Julien Paulino EW [id number] ATTENDING PHYSICIAN DATE OF DATE OF EXAM/TIME [...] MD on 02/26/21651 Date Time [facility]: [facility]; Caryn Jacinto MD Techn: KRISTIN Gill Dt/Tm: Trans by: WILLIE Prt Dt/Tm: : Total DLP = 1008.00 mGy-cm : Total Radiation Dose = 3.1248 mSv Lifetime Dose: 19.6248 mSv Name Value Range Interpretation Code Description Data Renee rce(s) Supporting Document(s) ID Date Data Source [id number] 02/26/2021 05:06:00 AM EDT [facility] Is test to R/O PE, DVT or VTE? Y @ DEON DATE was changed from 02/26/21 to 02/25/21@ by ESTEVAN. Old specimen was [id number]. Name Value Range Interpretation Code Description Data Renee rce(s) Supporting Document(s) Fibrin D-dimer [Units/volume] in Platelet poor plasma 0.30 mg/L 0.0- 0.50 [facility] @ Has QC been run for this test today?MARCIANO OG NOTE: THIS TEST WAS PERFORMED USING A PARTICLE-ENHANCED, IMMUNOTURBIDIMETRIC ASSAY AND HAS A SINGLE,CLINICALLY DERIVED CUTOFF OF 0.50 MG/L. ID Date Data Source [id number] 02/26/2021 04:43:00 AM EDT [facility] Is test to R/O PE, DVT or VTE? Y @ DEON DATE was changed from 02/26/21 to 02/25/21@ by ESTEVAN. Old specimen was [id number]. Name Value Range Interpretation Code Description Data Renee rce(s) Supporting Document(s) Magnesium [Mass/volume] in Serum or Plasma 2.2 mg/dL 1.3-2.7 [facility] ID Date Data Source [id number] 02/26/2021 06:40:00 AM EDT [facility] Name Value Range Interpretation Code Description Data Renee rce(s) Supporting Document(s) Thyrotropin [Units/volume] in Serum or Plasma by Detec tion limit <= 0.005 mIU/L 4.85 u[iU]/mL 0.35-5.50 [facility] ID Date Data Source [id number] 02/26/2021 04:35:00 AM EDT [facility]) Name Value Range Interpretation Code Description Data Renee rce(s) Supporting Document(s) Fibrin D-dimer [Units/volume] in Platelet poor plasma 0.30 mg/L 0.0-0.50 D-dimer [facility]) ID Date Data Source [id number] 02/26/2021 04:35:00 AM EDT [facility]) Name Value Range Interpretation Code Description Data Renee rce(s) Supporting Document(s) Thyrotropin [Units/volume] in Serum or Plasma by Detec tion limit <= 0.005 mIU/L 4.85 u[IU]/mL 0.35-5.50 TSH W/ Reflex to Free T4 [facility]) ID Date Data Source [id number] 02/26/2021 04:35:00 AM EDT [facility]) Name Value Range Interpretation Code Description Data Renee rce(s) Supporting Document(s) Fibrin D-dimer [Units/volume] in Platelet poor plasma 0.30 mg/L 0.0-0.50 D-dimer [facility]) ID Date Data Source [id number] 02/26/2021 04:35:00 AM EDT [facility]) Name Value Range Interpretation Code Description Data Renee rce(s) Supporting Document(s) Thyrotropin [Units/volume] in Serum or Plasma by Detec tion limit <= 0.005 mIU/L 4.85 u[IU]/mL 0.35-5.50 TSH W/ Reflex to Free T4 [facility]) ID Date Data Source [id number] 02/26/2021 04:24:00 AM EDT [facility] Name: COREY CORTEZ : 1990 Age: 30 MR#: [id number] Admit Date: 02/26/21 Provider: Julien Paulino Room [...] the day and later on contacted her food safety specialist about the chest pain who advised her [...] % (Auto) 67.7, Lymph % (Auto) 24.8, Dewey % (Auto) 6.0, Eos % (Auto) 0.7, [...] Total Protein 7.9, Albumin 4.2 02/25/21 23:59: Ryc-T-Xoudxqdkbac Pept 226.00 H 02/26/21 02:20: Troponin I [...] hypokalemic with potassium 3.4 magnesium2.2. Chest pain: alarm security or surveillance monitor Repeat troponin x3 The patient will [...] upper limbs and lower limbs against gravity, ycsioi-on-iszt and vays-wi-ncns normal. Normal gait. She reports lower sensation [...] Cosigners: <<Signature on File>> Stoney Cristina MD 02/27/210 <Electronically signed by Stoney Cristina MD> Stoney Cristina MD 02/27/211509 D: ALBIB 02/26/21423 T: ALBIB 02/26/21423 CC: Name Value Range Interpretation Code Description Data Renee rce(s) Supporting Document(s) ID Date Data Source [id number] 02/26/2021 05:07:00 AM EDT [facility] NORMAL RESULT IS "Not Detected"Cepheid S ARS-CoV-2,FLU/RSV is Multiplex real time RT-PCRNegative results do not preclude SARS-COV-2, influenza orRSV infection and should not be used as the sole basis fortreatment or other patient management decisions.False negative results may occur if virus is present atlevels below the analytical limit of detection.This test has been authorized by FDA under an EUA for use bypresbyterian hospitalhorized laboratoriesSARS-rel CoV RNA Resp Ql HUNG+probeFLUAV RNA Resp Ql HUNG+probeFLUBV RNA Resp Ql HUNG+probeRSV RNA Resp Ql HUNG+probe Name Value Range Interpretation Code Description Data Renee rce(s) Supporting Document(s) ID Date Data Source [id number] 02/26/2021 04:10:00 AM EDT [place] ([facility]) Name Value Range Interpretation Code Description Data Renee rce(s) Supporting Document(s) ID Date Data Source [id number] 02/26/2021 04:10:00 AM EDT [facility] Name Value Range Interpretation Code Description Data Renee rce(s) Supporting Document(s) Cepheid SARS/FLU/RSV RT-PCR SARS-COV-2 NOT DETECTED [facility] This lab was ordered by [facility] and reported by [facility]. ID Date Data Source [id number] 02/26/2021 04:10:00 AM EDT [place] ([facility]) Name Value Range Interpretation Code Description Data Renee rce(s) Supporting Document(s) ID Date Data Source [id number] 02/26/2021 03:17:00 AM EDT [facility] Name Value Range Interpretation Code Description Data Renee rce(s) Supporting Document(s) Troponin I.cardiac [Mass/volume] in Serum or Plasma Less Than 0.015 0.00-0.09 N [facility] Less than 0.09 NG/ML Negative0.10 - 0.77 NG/ML High Risk0.78 NG/ML or Greater PositiveThe WHO defined the cutoff (definition for diagnosis of IL)for this method as 0.78 ng/ml. ID Date Data Source [id number] 02/26/2021 02:20:00 AM EDT [facility]) Name Value Range Interpretation Code Description Data Renee rce(s) Supporting Document(s) Troponin I.cardiac [Mass/volume] in Serum or Plasma less than 0.015 0.00-0.09 Troponin [facility]) ID Date Data Source [id number] 02/26/2021 02:20:00 AM EDT [facility]) Name Value Range Interpretation Code Description Data Renee rce(s) Supporting Document(s) Troponin I.cardiac [Mass/volume] in Serum or Plasma less than 0.015 0.00-0.09 Troponin [facility]) ID Date Data Source [id number] 02/26/2021 02:01:00 AM EDT [facility] Name Value Range Interpretation Code Description Data Renee rce(s) Supporting Document(s) Natriuretic peptide.B prohormone N-Terminal [Mass/volu me] in Serum or Plasma 226.00 pg/mL 0.00-175 Above high normal [facility] spital ID Date Data Source [id number] 02/26/2021 12:21:00 AM EDT [facility] Name Value Range Interpretation Code Description Data Renee rce(s) Supporting Document(s) Leukocytes [#/volume] in Blood by Automated count 5.9 10*3/uL 4.45-10 .71 [facility] Erythrocytes [#/volume] in Blood by Automated count 4.54 10*6/uL 4.20 -5.40 N [facility] Hemoglobin [Moles/volume] in Blood 14.6 g/dL 10.7-15.4 N [facility] Hematocrit [Volume Fraction] of Blood by Automated count 44.3 % 3 7-47 N [facility] Erythrocyte mean corpuscular volume [Ent itic volume] in Cord blood by Automated count 98 fL 80-96 Above high normal [facility] Erythrocyte mean corpuscular hemoglobin [Entitic mass] by Au tomated count 32 pg 27-31 Above high normal [facility] Erythrocyte mean corpuscular hemoglobin concentration [Mass/volume] in Cord blood 33 g/dL 33-37 N [facility] ital Erythrocyte distribution width [Entitic volume] by Automated count 13 % 11-15 N [facility] Platelets [#/volume] in Blood by Automated count 179 10*3/uL 130-472 N [facility] Platelet mean volume [Entitic volume] in Blood 10.7 fL 9.1-13.1 N [facility] Neutrophils/100 leukocytes in Blood by Automated count 67.7 % 41- 77 N [facility] Neutrophils [#/volume] in Blood by Automated count 4.0 U 1.7-7.6 N [facility] Lymphocytes/100 leukocytes in Blood by Automated count 24.8 % 14- 46 N [facility] Lymphocytes [#/volume] in Blood by Automated count 1.5 U 0.6-4.6 N [facility] Monocytes/100 leukocytes in Blood by Automated count 6.0 % 4-12 N [facility] Monocytes [#/volume] in Blood by Automated count 0.4 U 0.2-1.2 N [facility] Eosinophils/100 leukocytes in Blood by Automated count 0.7 % 0-7 N [facility] Eosinophils [#/volume] in Blood by Automated count 0.0 U 0.0-0.5 N [facility] Basophils/100 leukocytes in Blood by Automated count 0.5 % 0.4-1 .3 N [facility] Basophils [#/volume] in Blood by Automated count 0.0 U 0.0-0.2 N [facility] NUCLEATED RED BLOOD CELL 0 % [facility] NUCLEATED RED BLOOD CELL# 0 U [facility] Immature granulocytes [Presence] in Blood by Automated count 0-2 N [facility] Immature granulocytes [#/volume] in Blood by Automated count 0.0 U 0-0.1 N [facility] Manual Differential panel - Blood NO [facility] ID Date Data Source [id number] 02/26/2021 12:59:00 AM EDT [facility] Name Value Range Interpretation Code Description Data Renee rce(s) Supporting Document(s) Urea nitrogen [Mass/volume] in Serum or Plasma 14 mg/dL 9-23 N [facility] Sodium [Moles/volume] in Serum or Plasma 145 mmol/L 132-146 N [facility] Potassium [Moles/volume] in Serum or Plasma 3.4 mmol/L 3.5-5.5 Below low normal [facility] Chloride [Moles/volume] in Serum or Plasma 111 mmol/L 99-109 Above high normal [facility] Carbon dioxide, total [Moles/volume] in Serum or Plasma 27 mmol/L 20 -31 N [facility] Anion gap in Serum or Plasma 10 mmol/L 8-[address] [facility] Glucose [Mass/volume] in Serum or Plasma 86 mg/dL 74-106 N [facility] Creatinine 0.7 mg/dL 0.5-1.1 N [facility] Glomerular filtration rate/1.73 sq M.pre dicted [Volume Rate/Area] in Serum or Plasma Greater Than 60 ABOVE 60 [facility] Alanine aminotransferase [Enzymatic acti vity/volume] in Serum or Plasma by With P-5'-P 44 U/L 10-49 N [facility] ital Aspartate aminotransferase [Enzymatic ac tivity/volume] in Serum or Plasma by With P-5'-P 32 U/L 0-33 N [facility] pital Alkaline phosphatase [Enzymatic activity/volume] in Serum or Plasma 90 U/L 45-129 N [facility] Calcium [Mass/volume] in Serum or Plasma 9.4 mg/dL 8.5-10.1 [facility] Bilirubin.total [Mass/volume] in Serum or Plasma 0.4 mg/dL 0.3-1.2 [facility] Albumin [Mass/volume] in Serum or Plasma by Bromocresol purple (BCP) dye binding method 4.2 g/dL 3.2-4.8 [facility] ital Protein [Mass/volume] in Serum or Plasma 7.9 g/dL 5.7-8.2 N [facility] ID Date Data Source [id number] 02/26/2021 12:59:00 AM EDT [facility] Name Value Range Interpretation Code Description Data Renee rce(s) Supporting Document(s) Creatine kinase [Enzymatic activity/volume] in Serum or Plasma 3 60 U/L 33-211 Above high normal [facility] Creatine kinase.MB [Enzymatic activity/volume] in Serum or P lasma 9.0 ng/mL 0.0-5.0 Above high normal [facility] Chemistry studies (set) 2.5 % [facility] ID Date Data Source [id number] 02/26/2021 12:59:00 AM EDT [facility] Name Value Range Interpretation Code Description Data Renee rce(s) Supporting Document(s) Troponin I.cardiac [Mass/volume] in Serum or Plasma Less Than 0.015 0.00-0.09 [facility] Less than 0.09 NG/ML Negative0.10 - 0.77 NG/ML High Risk0.78 NG/ML or Greater PositiveThe WHO defined the cutoff (definition for diagnosis of IL)for this method as 0.78 ng/ml. ID Date Data Source [id number] 02/25/2021 11:59:00 PM EDT [facility]) Name Value Range Interpretation Code Description Data Renee rce(s) Supporting Document(s) Magnesium [Mass/volume] in Serum or Plasma 2.2 mg/dL 1.3-2.7 Magnesium [facility]) ID Date Data Source [id number] 02/25/2021 11:59:00 PM EDT [facility]) Name Value Range Interpretation Code Description Data Renee rce(s) Supporting Document(s) Magnesium [Mass/volume] in Serum or Plasma 2.2 mg/dL 1.3-2.7 Magnesium [facility]) ID Date Data Source [id number] 02/25/2021 11:07:00 PM EDT [facility] [address] [place] [address] [phone] NAME SEX PT STATUS ACCOUNT NUMBER Corey Cortez REG ER [id number] ORDERING PHYSICIAN LOCATION MEDICAL RECORD NO. Yfn Beltran MD ER [id number] ATTENDING PHYSICIAN DATE OF DATE OF EXAM/TIME [...] rce(s) Supporting Document(s) ID Date Data Source [id number] 02/25/2021 10:28:00 PM EDT [facility] ED Physician Documentation NAME: Corey Cortez : 1990 AGE: 30 MR#: [id number] SERVICE DATE: 02/25/[address]: Yfn Beltran MD PRIMARY CARE DR: Tyrone Garcia MD ([place]) ROOM#: [facility] (Adult, General) General Chief Complaint: Cardiovascular Stated [...] actually was seen by her urologist in [place] and upon being evaluated there they felt that she needed to be seen emergently. Despite the fact that her food safety specialist is from [facility] she chose to come to [facility] emergency department for evaluation after she was rerouted from [facility] who was on diversion. This patient has [...] Medical History (Updated 02/25/21 @ 22:56 by Yyaa Pascal RN) 1st degree AV block (Medical) [...] (where) Has patient experienced No coronavirus symptoms [facility] Medical History (Updated 02/25/21 @ 22:56 by [...] % (Auto) 67.7, Lymph % (Auto) 24.8, Dewey % (Auto) 6.0, Eos % (Auto) 0.7, [...] Total Protein 7.9, Albumin 4.2 02/25/21 23:59: Gzv-L-Icofocltsdt Pept 226.00 H 02/26/21 02:20: Troponin I [...] they will undoubtedly consult with the patient's food safety specialist sometime tomorrow. 0320 hrs. Second troponin was negative. At this point time would appear most likely the patient's chest pain is noncardiac however with her reported extensive history was felt that the patient should be observed for at least the next 12 to 24 hours or at least until the time of the additionalserial troponin can be obtained and consultation with the patient's food safety specialist by phone could be made. I spoke [...] T: RHETT 02/25/212227 CC: Tyrone MATOS ([facility] Name Value Range Interpretation Code Description Data Renee rce(s) Supporting Document(s) ID Date Data Source [id number] 02/25/2021 01:57:44 PM EDT [facility] Name Value Range Interpretation Code Description Data Renee rce(s) Supporting Document(s) Progress Note [facility] CXFTQm5aKnVGGfUa00/HRXfmEOXbh6TrZQdgJOq1SDisHCNbD9SjGAV2mA8oVNL0HHbUZnTuJfLlXJS1 [facility] [file] ogICAgICAgICAgICAgICAgICAgICAgICAgICAgICAgICAgICAgICAgICAgICAgICAgICAgICAgICAgIC AgICAgICAgICAgICAgICAgICAgICAgICAgICAgICAgICAgICAgICAgDQogICAgICAgICAgICAgICAgIC AgICAgICAgICAgICAgICAgICAgICAgICAgICAgICAg ICAgICAgICAgICAgICAgICAgICAgICAgICAgICAgICAgICAgICAgICAgICAgICAgICAgDQogICAgICAg ICAgICAgICAgICAgICAgICAgICAgICAgICAgICAgICAgICAgICAgICAgICAgICAgICAgICAgICAgICAg ICAgICAgICAgICAgICAgICAgICAgICAgICAgICAgIC AgDQogICAgICAgICAgICAgICAgICAgICAgICAgICAgICAgICAgICAgICAgICAgICAgICAgICAgICAgIC AgICAgICAgICAgICAgICAgICAgICAgICAgICAgICAgICAgICAgICAgICAgDQogICAgICAgICAgICAgIC AgICAgICAgICAgICAgICAgICAgICAgICAgICAgICAg ICAgICAgICAgICAgICAgICAgICAgICAgICAgICAgICAgICAgICAgICAgICAgICAgICAgICAgDQogICAg ICAgICAgICAgICAgICAgICAgICAgICAgICAgICAgICAgICAgICAgICAgICAgICAgICAgICAgICAgICAg ICAgICAgICAgICAgICAgICAgICAgICAgICAgICAgIC AgICAgDQogICAgICAgICAgICAgICAgICAgICAgICAgICAgICAgICAgICAgICAgICAgICAgICAgICAgIC AgICAgICAgICAgICAgICAgICAgICAgICAgICAgICAgICAgICAgICAgICAgICAgDQogICAgICAgICAgIC AgICAgICAgICAgICAgICAgICAgICAgICAgICAgICAg ICAgICAgICAgICAgICAgICAgICAgICAgICAgICAgICAgICAgICAgICAgICAgICAgICAgICAgICAgDQog ICAgICAgICAgICAgICAgICAgICAgICAgICAgICAgICAgICAgICAgICAgICAgICAgICAgICAgICAgICAg ICAgICAgICAgICAgICAgICAgICAgICAgICAgICAgIC AgICAgICAgDQogICAgICAgICAgICAgICAgICAgICAgICAgICAgICAgICAgICAgICAgICAgICAgICAgIC NaFLUxNNJjDOSjJNRqEVJmDPIoIGFjPQWkBDZyLAToNYUvPBFmVLUkUJBeOGNvODJqKAn2K9oiHVJhIZ BnKT0xYFt9Nx2+QVdVHbMeNHK7paOpsI5ZDK1of3Yo LAgrCHSpw7KeWYz6GD3HIVPlIWtlUB9BOMekzp2XWRBnIJKeiNXXa7koGiNgJLT1NKKqYjsoXE7SMQHx Z4etgtArCQKgVBRXVMuhKILGYWzdJFFBXEPnQEOxVrUeYmPsRWRoNCVrXONSPK9CWbEmM1BleR15ZAAQ Cj4+ZCpjnmHoEqaCPtH3BFBac9NvJEf2VD9STOIgDj qiy4AeQcKjDOPXELobHK7YTKF2FRD9HUAtGa0LCBLlB522byGoWL6EGg9UZxWpKC5bdf7SZvVoHDMfMy qWAqw2SVsoDY5ElBLfKDtRtz4adyYenqGNz1ZdhhSenWNTxSQiKCGhWCWsso1rIK5POZW3ANvgVG1cPH EuJFQvPlJiBBINLX1DLRYiVCWzuVBrPOAxNPYCYB5I DQzbSCW2ZRUnbgWklQJkGFjxMH8RZQNfclIhOlFpDGJTUBd+Jk4TKU1ue2LsAHstDfUbJB2jgl3EWDfN QyTyO4P9lTWiL2U3YGueTb4TJNZzXYGbRoGjVNUKIIvbNL5GQS0qhfW8FK2LgBChQHPnNGImfQLlRRm5 Z76qzPVxZQpzTF2FOFA+Ivett+Gh7YGRJdNVXlXZApYp AuYTSHCjPxQ6TuU2EIv9HsF6LbFL24qHrtzfCyAWehKZ6DOZ2rPPAmXLAMHZ9TrACxrH4hzdOhQTDyRQ MZPqMwD64kdDWuKJNrZCQ7KWAnLq3CAKIhD2OpmtVzoBwdimNgFYKhVLMKVZ0SYSbrvlBpwLIqoVcqKM 11xWylVI6SBg5DFrWnZH3yol7FpGSdEi4SOLWaYT7F BSLmZOTvXNOrTHD7ROLiOiHwJLiiXWAbQSGzCRY6FRHlGWCbZS3VImTyQFLnGkU9WmebXOEdOYCrow4U JKWcEIFcYHK6MITsKPEpZRGaBEdxVXFbACUiKHS2LIXsUBKyOB8EEzAhQGKySVJ3KVqqRSXtJUGlgc2K RTBmBPZdQBF8ZpMzTODyKSYaHCuiJNEqSOY0CGC2YC JxYURbRU3XIvIsGUHaIPvyGjRhBAFmIIHwas5WLAHxQRTyANM6WyOoTQUgZQIsSElpNNDhWINbLMWqBS OsJRAaUI9ZZlDlEPRzYCNiNREtOFQkPKCnhp5GDXIuGWErYfY9ZZIvHUSdOSVuYRkfIBGySST9CPU8RU RhDGAwWQ6WDwCzRKQuPJLxMiIuQUWiJFQlnf9UJQPg MCRcRPK4PwStKWYoKUQxFFqtIWOxVPU1OcTgDCLpCBUtDS7IDyAqMLRhBRv2HZEqLDSbMRHzmr1NYCVl AGMhIKdpYFJzFDEpJUToUAjrPHAwXEYdIKgyRYWfKLZuAL9RDuDvRGHoTmLwIQTiGFZlZWFqqx2WSCPq PJRpFJY3FxUgFEGlRXAuGJpiXUMqOMFeBJAiTSFwXY ImXO4BDwJrMMXwAbK8YgEdBUPlDVMqhu7BRTSwLWJxTlO3EcSmVVCtWOTjXSqpVMSxTDPpTQE7SJKuGF SbIB6RXhJoVJUyTyH9BZIeYUFqQGWjlm9WIXIvPAJfKgcnIZDaBWNbCOZvJMbbARCyTPO8JfV7EWVpGC GnIK1TVsAxQXUgIdR0PsWmNDDvEONwmg9IUIMaZETb JLKtUZSzQHAwPKUcIUnmAVOvPAT8NOW1IXRuMOTwQW2TJtMeMWJwYwYcOdUvYKOoQTEsra7AAGXaIVBl TiFdUePaFQBwEGZbJQpjFHIvBRC3TOIoEYYnFOZcRL8WWrFvZZShLsauJLPoKGVsYSGztb9ZOFGkXGJx JTZ9GyDdUKXqNZTgOKdrLWNlFMI0QTK1PRFqODMdPD 9JAcAjZIpoZCUFZjj7ZDseG3l0RZJgRQ1XM5Rgu6QlIhosVZZQFUasNZ0kttOrPFYqBl5WB4mFMmyuEG C6VdLtZSVrWrvzVwRmDoVdUaGxTVEtQJF5K2F3UL4pSNXjWJThMmGjCYPkQLWwPWGtQzV0XrPmYWXfSO w4ULd3WpPsYE5JLb6XMbW0CMN5wTXeEi8DIzw1GeFCHuFmLR6IOKc= ID Date Data Source [id number] 02/12/2021 01:24:00 [place] [address] PHONE: [phone] FAX: [phone] Name .................. : ELI Long Acct Number.................. : [id number] ROOM. ................. : TR-07 Number ................... : [id number] Stay type ............. : E/R Discharge Date......... ... : 02/12/21 Admit Date ......... : 02/12/21 Admit Phys .................... : JOI COATES Date of ....... : 1990 Family Phys ................... : JOSE KIDD Phone .................. : [phone] Age ................................ : 30 Film# .................. .:[id number] Sex ................................. : F Unsigned transcriptions are preliminary reports and do not represent a medical or legal document ABDOMEN 1 VIEW [id number] COMPLETE:02/12/21 07:01 MWB [id number] Reason(s): Abdo yudy Pain KUB, 02/12/21: FINDINGS: [...] rce(s) Supporting Document(s) ID Date Data Source [id number] 02/12/2021 12:21:00 AM EDT [facility] 1 OrderSheet [facility] Emergency Department [address] [place] [address] Phone #: ext- [phone] 02/12/2021 00:19 Patient: COREY CORTEZ Sex: F [...] STAT 01:38 02/12/2021 02:42 Maxim Garcia) Nikhil Cameron.N. M.DKari;Lactic Acid STAT 01:38 02/12/2021 02:40 Joi Denny Riccardo Laura R.N. M.D.;DIAGNOSTIC STUDY ORDERSOrder Description Priority Entered Acknowledged InitialedAbdomen 1 View STAT 02:56 02/12/2021 Ack'd: 02:56 03:03 Joi Madrigal Riccardo Beyer, Katelyn Katelyn M.D.; Reason for Study: Abdominal Pain, ConstipationMEDICATION/IV/DRIP/FLUID ORDERSOrder Description Priority Entered Acknowledged InitialedNS IV 1000 mL 01:39 02/12/2021 02:43 Andree Garcias: : Bolus 1000 Nikhil Cameron R.N.mL (X1) M.DKari;Zofran 4 mg IVP X 1 01:42 02/12/2021 02:43 Yovany Garciase: 4 mg (NOW Nikhil Cameron R.NKarix1) Derick; 2 OrderSheet [facility] Emergency Department [address] [place] [address] Phone #: ext- [phone] 02/12/2021 00:19 Patient: [...] rce(s) Supporting Document(s) ID Date Data Source [id number] 02/12/2021 12:21:00 AM EDT [facility] 1 Medication Reconciliation Report [facility] Emergency Department [address] [place] [address] Phone #: ext- [phone] 02/12/2021 00:19 [id number] Sex: F : 1990 Age: 30yWeight: 117.4 [...] Dispense 14 capsule. Refills: 2.Substitution permitted.Pharmacy - [id number] - [id number] ; [place] [address]. FaxNumber: . -- Nikhil Cameron M.D. Name Value Range Interpretation Code Description Data Renee rce(s) Supporting Document(s) ID Date Data Source [id number] 02/12/2021 12:21:00 AM EDT [facility] 1 Medication Administration Record [facility] Emergency Department [address] [place] [address] Phone #: ext- [phone] 02/12/2021 00:19 Patient: COREY CORTEZ Sex: F : 1990 Age: 30yWeight: 117.4 kgHeight/Length: 69 inBMI: 38.2ALLERGIES: Apririn causes trouble breathing, Reglan causes syncope, Tramadol causes seizures Date/Time Medication Administered Medication OrderedStart NS [IV] NS IV 1000 mL Bolus: : Bolus [id number] 02/12/2021 Dose: IV Fluids mL (X1)Sheridan Garcia RAshwin Bolus: 1000 mL over 40 minute(s)---- Site: #1 right NXFpje23:56 02/12/2021Sheridan Garcia RAshwinGiven ZOFRAN [IVP] (ONDANSETRON HCL) Zofran 4 mg [...] rce(s) Supporting Document(s) ID Date Data Source [id number] 02/12/2021 12:21:00 AM EDT [facility] 1 General Instructions [facility] Emergency Department [address] [place] [address] Phone #: ext- [phone] 02/12/2021 00:19 [facility]: [id number] Sex: F : 1990 Age: 30yConstipationINSTRUCTIONSDrink plenty [...] Dispense 14 capsule. Refills: 2.Substitution permitted.Pharmacy - [id number] - [id number] ; [place] [address]. FaxNumber: .Follow-up:Return to the emergency department as [...] care. ADDITIONAL INFORMATIONConstipation (Adult) 2 General Instructions [facility] Emergency Department [address] [place] [address] Phone #: ext- [phone] 02/12/2021 00 :19 [...] delaying it until later 3 General Instructions [facility] Emergency Department [address] [place] [address] Phone #: ext- [phone] 02/12/2021 00:19 Patient: [...] your healthcare provider first.Medicines 4 General Instructions [facility] Emergency Department [address] [place] [address] Phone #: ext- [phone] 02/12/2021 00:19 Patient: [...] have more tests or see a specialist.Call [phone] [phone] if any of these occur: Trouble breathing Stiff, rigid abdomen that is severely painful to touch Confusion Fainting or loss of consciousness Rapid heart rate Chest painWhen to seek medical adviceCall your healthcare provider right away if any of these occur: Fever of 100.4F (38C) or higher, or as directed by your healthcare provider Failure to resume normal bowel movements 5 General Instructions [facility] Emergency Department [address] [place] [address] Phone #: ext- [phone] 02/12/2021 00:19 ----- Patient: COREY CORTEZ Sex: F : 1990 Age: 30y Pain in your abdomen or back gets worse Nausea or vomiting Swelling in your abdomen Blood in the stool Black, tarry stool Involuntary weight loss Weakness [id number] [employer]. [address] [place] [address]. All rights reserved. This information is not intended as asubstitute for professional medical care. Always follow your healthcare professional's instructions. You have been given the following additional information: Constipation (Adult)(Electronically signed by Nikhil Cameron M.D. 02/12/2021 04:36) Name Value Range Interpretation Code Description Data Renee rce(s) Supporting Document(s) ID Date Data Source [id number] 02/12/2021 12:21:00 AM EDT [facility] 1 Clinical Report - Nurses [facility] Emergency Department [address] [place] [address] Phone #: ext- [phone] 02/12/2021 00:19 Patient: [...] oriented (5); bestmotor response- obeys commands (6). --00:25 02/12/21 Sheridan Garcia R.N.00:20 02/12/21. BP: 117/81. MAP: 93. HR: 74. RR: 17. O2 saturation: 98% on room air. Temp: 97.1 F.Pain level now: 10/27. --00:25 02/12/21 Sheridan Garcia R.N.Weight: 117.4 kg. Height/Length: 69 inches. BMI: 38.2. --00:24 02/12/21 Sheridan Garcia R.N.MedicationsLasix Oral 20 mg, daily. --00:02/12/21 Sheridan Garcia R.N.AllergiesApririn causes trouble breathing.Reglan causes syncope.Tramadol causes seizures. --00:02/12/21 Sheridan Garcia R.N.PROBLEMS:Left bundle branch block.Myotonic dystrophy.Av block.Hypothyroidism.Gastrodysmobility. --00:02/12/21 Sheridan Garcia R.N.The following entry was modified by Sheridan Garcia R.N., 00:02/12/21Cardiomyopathy. --00:02/12/21 Sheridan Garcia R.N.. 2 Clinical Report - Nurses [facility] Emergency Department [address] [place] [address] Phone #: ext- [phone] 02/12/2021 00:19 Patient: [...] completed. No skin integrity risk identified. --00:25 02/12/21 Sheridan Garcia R.N. Interventions 00:02/12/21. Identification and allergy band on patient. --00:02/12/21 Sheridan Garcia R.N.PHYSICAL UQHOUTTSXN11:02/12/21. Ambulatory to room. 3 Clinical Report - Nurses [facility] Emergency Department [address] [place] [address] Phone #: ext- [phone] 02/12/2021 00:19 ------ Patient: COREY CORTEZ Sex: [...] and precautions. 4 Clinical Report - Nurses [facility] Emergency Department [address] [place] [address] Phone #: ext- [phone] 02/12/2021 00:19 Patient: COREY CORTEZ Sex: F : 1990 Age: 30y Verbalizes understanding. --02:45 02/12/21 Sheridan Garcia R.N. 02:51 02/12/21. BP: 128/70. MAP: 89. HR: 68. RR: 16. O2 saturation: 98%. Pain level now: 12/27. --02:52 02/12/21 Sheridan Garcia R.N. Patient transported to radiology by wheelchair with mask and tech. --03:04 02/12/21 Kelley Madrigal 03:35 02/12/21. Patient returned from radiology by wheelchair with interventional radiology technologist. --03:35 Sheridan Garcia R.N. 03:38 02/12/21. BP: 103/61. MAP: 75. HR: 61. RR: 17. O2 saturation: 100% on room air. Pain level now: 01/26. --03:39 02/12/21 Rach Denny R.N. The patient is calm and resting [...] Patient verbalized understanding. Written instructions provided in Cook Islander. The patient was discharged by the physician. She was discharged home and accompanied by spouse. She left ambulatory and via private vehicle. Spouse driving. --03:59 02/12/21 Sheridan Garcia R.N. 03:59 02/12/2021 Temp: 97.4 F. --04:00 02/12/21 Sheridan Garcia R.N. 5 Clinical Report - Nurses [facility] Emergency Department [address] [place] [address] Phone #: ext- [phone] 02/12/2021 00:19 Patient: COREY CORTEZ Sex: F : 1990 Age: 30yLocked/Released at 02/12/2021 04:00 by Sheridan Garcia R.N. Name Value Range Interpretation Code Description Data Renee rce(s) Supporting Document(s) ID Date Data Source [id number] 02/12/2021 12:21:00 AM EDT [facility] 1 Clinical Report - Physicians/Mid Levels [facility] Emergency Department [address] [place] [address] Phone #: ext- [phone] 02/12/2021 00:19 Patient: COREY CORTEZ Sex: F [...] Endoscopy. Hemicolectomy. 2 Clinical Report - Physicians/Mid [facility] Emergency Department [address] [place] [address] Phone #: ext- [phone] 02/12/2021 00:19 Patient: COREY CORTEZ Sex: F [...] (Reference) 3 Clinical Report - Physicians/Mid Levels [facility] Emergency Department [address] [place] [address] Phone #: ext- [phone] 02/12/2021 00:19 Patient: [...] Male GFR Interprentation 20-49 yrs >60 mL/min Odxfxk67-07 yrs >56 mL/min Normal 60- 69 yrs >49 mL/min Normal 70-79yrs>42 mL/min Normal 80 and above >35 mL/min Normal Female GFRInterpretation 20-39 yrs >60 mL/min Normal 40-49 yrs >58 mL/minNormal 50-59 yrs >51 mL/min Normal 60-69 yrs >45 mL/min Normal 4 Clinical Report - Physicians/Mid Levels [facility] Emergency Department [address] [place] [address] Phone #: ext- [phone] 02/12/2021 00:19 Patient: COREY CORTEZ Sex: F : 1990 Age: 30y 70-79 yrs >39 mL/min Normal 80 and above >32 mL/min Normal Lipase: (DEON: 02/12/2021 02:36) ( [facility] 02/12/[facility]21 03:13) Final results Test Result Flag Units (Reference) LIPASE 33 U/L (13 - 60) Urinalysis: (DEON: 02/12/2021 02:38) ( [facility] 02/12/2021 02:51) Final results Test Result Flag [...] Indicate Lactic Acid: (DEON: 02/12/2021 02:36) ( [facility] 02/12/2021 02:53) Final results Test Result Flag [...] treatment. 5 Clinical Report - Physicians/Mid Levels [facility] Emergency Department [address] [place] [address] Phone #: ext- [phone] 02/12/2021 00:19 Patient: [...] capsule. Refills: 2. Substitution permitted. Pharmacy - [id number] - [id number] ; [place] [address]. . Follow-up: Return to the emergency department [...] 02/12/2021 04:36) 6Clinical Report - Physicians/Mid Levels [facility] Emergency Department [address] [place] [address] Phone #: ext- [phone] 02/12/2021 00:19 Patient: COREY PETERSON Sex: F : 1990 Age: 30y Name Value Range Interpretation Code Description Data Renee rce(s) Supporting Document(s) ID Date Data Source [id number] 02/12/2021 02:51:00 AM EDT [facility] Name Value Range Interpretation Code Description Data Renee rce(s) Supporting Document(s) [facility] COL[facility] yellow NORMAL: Yellow [facility] ospital CLARITY clear NORMAL: Clear [facility] spital Specific gravity of Urine by Test strip 1.005 1.001 - 1.030 [facility] pH 7 5 - 9 [facility] Glucose [Mass/volume] in Urine by Test strip NORM NORMAL: Negat [facility] Bilirubin.total [Presence] in Urine by Test strip NEG NORMAL: Negative [facility] Ketones [Presence] in Urine by Test strip NEG NORMAL: Negative [facility] Protein [Mass/volume] in Urine by Test strip NEG [facility]AL[facility] Nitrite [Presence] in Urine by Test strip NEG NORMAL: Negative [facility] BLOOD NEG NORMAL: Negative [facility] LEUK EST NEG NORMAL: Negative [facility] Urobilinogen [Mass/volume] in Urine by Test strip NOR less maura n 1.0 mg/dL [facility] MICROSCOPIC Not Indicate [facility] ID Date Data Source [id number] 02/12/2021 02:48:00 AM EDT [facility] Name Value Range Interpretation Code Description Data [facility] rce(s) Supporting Document(s) CBC W/AUTOMATED DIFF [facility] COMPLETE BLOOD COUNT Leukocytes [#/volume] in Blood by Automated count 5.6 10^3/uL 4.2 - 1 1.0 [facility] Erythrocytes [#/volume] in Blood by Automated count 4.38 10^6/uL 4. 20 - 5.40 [facility] Hemoglobin [Mass/volume] in Blood 14.3 g/dL 12.0 - 16.0 [facility] Hematocrit [Volume Fraction] of Blood by Automated count 43.2 % 3 7.0 - 47.0 [facility] Erythrocyte mean corpuscular volume [Entitic volume] by Auto mated count 98.6 fL 81.0 - 101 [facility] Erythrocyte mean corpuscular hemoglobin [Entitic mass] by Automated count 32.6 pg 27.0 - 34.0 [facility] Erythrocyte mean corpuscular hemoglobin concentration [Mass/volume] by Automated count 33.1 g/dL 31.0 - 36.0 [facility] Erythrocyte distribution width [Ratio] by Automated count 13.2 % 11.5 - 14.5 [facility] Platelets [#/volume] in Blood by Automated count 204 10^3/uL 150 - 45 0 [facility] Platelet mean volume [Entitic volume] in Blood by Automated count 10.3 fL 7.4 - 10.4 [facility] Neutrophils/100 leukocytes in Blood by Automated count 62.2 % 37. 0 - 80.0 [facility] Lymphocytes/100 leukocytes in Blood by Manual count 29.9 % 25.0 - 40.0 [facility] Monocytes/100 leukocytes in Blood by Automated count 5.7 % 3.0 - 8.0 [facility] Eosinophils/100 leukocytes in Blood by Automated count 1.3 % 0.0 - 7.0 [facility] Basophils/100 leukocytes in Blood by Automated count 0.7 % 0.0 - 2.5 [facility] %IG 0.2 % 0.0 - 0.0 H [facility] %NRBC 0.0 % 0.0 - 0.0 [facility] al Neutrophils [#/volume] in Blood by Automated count 3.47 10^3/uL 2.00 - 6.90 [facility] Lymphocytes [#/volume] in Blood by Automated count 1.67 10^3/uL 0.60 - 3.40 [facility] Monocytes [#/volume] in Blood by Automated count 0.32 10^3/uL 0.00 - 0.90 [facility] Eosinophils [#/volume] in Blood by Automated count 0.07 10^3/uL 0.00 - 0.70 [facility] Basophils [#/volume] in Blood by Automated count 0.04 10^3/uL 0.00 - 0.20 [facility] #IG 0.01 10^3/uL 0.00 - 0.10 [facility] #NRBC 0.00 10^3/uL 0.00 - 0.00 [facility] ospital MANUAL DIFF NOT INDICATED [facility] RBC MORPH NOT INDICATED [facility] ID Date Data Source [id number] 02/12/2021 02:53:00 AM EDT [facility] Name Value Range Interpretation Code Description Data Renee rce(s) Supporting Document(s) Lactate [Moles/volume] in Serum or Plasma 1.3 MMOL/L 0.2 - 2.2 [facility] ID Date Data Source [id number] 02/12/2021 03:13:00 AM EDT [facility] Name Value Range Interpretation Code Description Data Renee rce(s) Supporting Document(s) Lipase [Enzymatic activity/volume] in Serum or Plasma 33 U/L 13 - 60 [facility] ID Date Data Source [id number] 02/12/2021 03:13:00 AM EDT [facility] Name Value Range Interpretation Code Description Data Renee rce(s) Supporting Document(s) COMPREHENSIVE METABOLIC PANEL [facility] COMPREHENSIVE METABOLIC PANEL Sodium [Moles/volume] in Serum or Plasma 142 mEq/L 134 - 153 [facility] Potassium [Moles/volume] in Serum or Plasma 3.9 mEq/L 3.6 - 5.0 [facility] Chloride [Moles/volume] in Serum or Plasma 107 mEq/L 98 - 107 [facility] Carbon dioxide, total [Moles/volume] in Serum or Plasma 26 MEQ/L 22 - 30 [facility] Glucose [Mass/volume] in Serum or Plasma 87 MG/DL 70 - 99 [facility] BUN 16 MG/DL 7 - 21 [facility] Creatinine [Mass/volume] in Serum or Plasma 0.7 MG/DL 0.7 - 1.5 [facility] BUN/CREAT 23 8 - 27 [facility] al Protein [Mass/volume] in Serum or Plasma 7.4 G/DL 6.3 - 8.2 [facility] Albumin [Mass/volume] in Serum or Plasma 4.5 G/DL 3.9 - 5.0 [facility] Globulin [Mass/volume] in Serum by calculation 2.9 GM/DL 2.4 - 3.2 [facility] A/G RATIO 1.6 0.8 - 2.0 [facility] Calcium [Mass/volume] in Serum or Plasma 9.7 MG/DL 8.4 - 10.2 [facility] Bilirubin.total [Mass/volume] in Serum or Plasma <0.7 MG/DL 0.2 - 1.3 [facility] Alkaline phosphatase [Enzymatic activity/volume] in Serum or Plasma 123 U/L 38 - 126 [facility] Aspartate aminotransferase [Enzymatic activity/volume] in Serum or Plasma 39 U/L 5 - 40 [facility] Alanine aminotransferase [Enzymatic activity/volume] in Seru m or Plasma 42 U/L 7 - 56 [facility] Anion gap 3 in Serum or Plasma 9.0 mmol/L 8.0 - 16.0 [facility] AGE 30 yrs [facility] al NON-AA GFR >60 mL/min [facility] ital AFR AMER GFR >60 mL/min [facility] Male GFR In terprentation 20-49 [...] >32 mL/min Normal ID Date Data Source [id number] 01/07/2021 09:32:11 AM EDT [facility] Name Value Range Interpretation Code Description Data Renee rce(s) Supporting Document(s) EKG [facility] PKIZCt9qLxCMMkDul3SjInEhXRXjON5utpw8I8E4rMHzP9XjwYKbu3fkD7ApC2PfVZQzPDESVU9ZnJGi jb2 [file] v+6HdA419mUh2332Pp6xxR9Q9o35aqqd06d1szuw79vmT62i9/KT29lsxqWbfq1LW45nMp/3yVib8652 Ii085Al7Flr76RZjVhf4prq8V3WE9knbvMFIaPuQr4xrlEjf/r678cKNc/5iSV7nhFl/6jyW8gzjuWt+ +5f8fx6b1tycbk9zBTx2Z3UA3N9771BwEPw0v4IpZl 836VeyYOv+cio09jEeO5wdSb67Q8UAoDwxbsK276zE0zbx72J9optg0Q0j18BXuxyW++4X398CfqPQth 0z2HeXHbFBnprvqzsy8qCp1fae94+o+0Dzr47aCo+GaNjyamh+trzqan/JP19td1uwetwd/U1ANeb0zR DMRwkRQDtrq9A3u2LljN+vNfBxE5o46RcuFR3n/srv NW4fe2yN/h08ssJ1gdne/ou0al30nza67/8ea23hyfm2n/01dLpliwjYe986o53c2pvS+0132AYC96uU pV+PgjGn3W1dgtH6lV4Evj71uDj9oN91j8y/WpewkxcmKg4kRJb5uy90Hu1y/cmits05c4a2j76u1583 51906422247dj/gz5rDy6mXm86rcmS46yDRvI1+Hb9 vr53n/vu/political director++La8+86tB96gv6dYFp134S/1CH3x2JdE+qKRIwq7c1H5Vou3oSMF07xj27fz2fbkqeV kdD2MIxelZGevlxfX8j75858Hb3nmnDK2cN/kz0M80za/5nt3a4kh/d/BVn3i+9zl9YB/eoa4Hg7/YIa /6qHi+57I+8u17GyY/TzxjvPPei/M92NsoU3/oE+Od GK/Og9qDE+Pq688m4/7o2petJZ+CA932f69WaeAKd+/z2AufyVQ4ivFmuNdhpxo5yncsXDGD4W+Pipe Installer+/v [file] aRtqBTP3Xo1HshXcIFRiORRFRv8An146BVNlLKJGUio+HvmmwHZxqAhwOECPBlxhSVWLDWLMZ2J= ID Date Data Source [id number] 12/18/2020 04:22:00 PM EDT [facility] ([facility]) Name Value Range Interpretation Code Description Data Renee rce(s) Supporting Document(s) white blood count 5.1 10 4.0-10.0 White Blood Count [facility] ([facility]) red blood count 4.31 10 4.00-5.40 Red Blood Count [facility] ([facility]) hematocrit 44.2 % 36.0-47.0 Hematocrit [facility] ([facility]) hemoglobin 13.8 g/dL 12.0-15.5 Hemoglobin [facility] ([facility]) mean corpuscular volume 102.6 fL 80.0-96.0 Above high normal Mean Corpuscular Volume [facility] ([facility]) mean corpuscular hemoglobin 32.0 pg 27.0-33.0 Mean Cor puscular Hemoglobin [facility] ([facility]) mean corpuscular HGB conc 31.2 g/dL 32.0-36.5 Below low teodoro l Mean Corpuscular HGB Conc [facility] ([facility]) platelet count, automated 171 10 150-450 Platelet C ount, Automated [place] ([facility]) red cell distribution width 12.5 % 11.5-14.5 Red Cell Distribution Width [facility] ([facility]) neutrophils % 61.6 % 36.0-66.0 Neutrophils % [facility] ( [facility]) lymph % 30.1 % 24.0-44.0 Lymph % [facility] ([facility]) eos % 1.2 % 0.0-3.0 Eos % [facility] ([facility]) mono % 6.1 % 2.0-8.0 [place] % [facility] ([facility]) baso % 0.6 % 0.0-1.0 Baso % [facility] ([facility]) immature granulocyte % 0.4 % 0-3.0 Immature Gran ulocyte % [facility] ([facility]) nucleated red blood cell % 0.0 % 0-0 Nucleated Red Blood Cell % [facility] ([facility]) neutrophils # 3.2 10 1.5-8.5 Neutrophils # [facility] ( [facility]) eos # 0.1 10 0.0-0.5 Eos # [facility] ([facility]) mono # 0.3 10 0.0-0.8 [place] # [facility] ([facility]) lymph # 1.5 10 1.5-5.0 Lymph # [facility] ([facility]) baso # 0.0 10 0.0-0.2 Baso # [facility] ([facility]) ID Date Data Source [id number] 12/18/2020 04:22:00 PM EDT [facility] ([facility]) Name Value Range Interpretation Code Description Data Renee rce(s) Supporting Document(s) triglycerides level 205 mg/dL <150 Above high normal Triglycer ides Level [facility] ([facility]) cholesterol level 139 mg/dL <200 Cholesterol Level [facility] ([facility]) HDL cholesterol 38 mg/dL >40 Below low normal HDL Cholestero l [facility] ([facility]) non-HDL-C 101 mg/dL Non-hdl-c [facility] ([facility]) Cholesterol in LDL [Mass/volume] in Serum or Plasma 60 mg/dL <1 00 LDL Cholesterol [facility] ([facility]) cholesterol risk ratio <5 Cholesterol R isk Ratio [facility] ([facility]) ID Date Data Source [id number] 12/18/2020 04:22:00 PM EDT [place] ([facility]) Name Value Range Interpretation Code Description Data Renee rce(s) Supporting Document(s) total iron binding capacity 389 ug/dL 250-450 Total Ir on Binding Capacity [facility] ([facility]) iron (fe) 73 ug/dL 50-170 Iron (Fe) [facility] percent saturation 18.8 % 13.2-45.0 Percent Saturatio n [place] ([facility]) ID Date Data Source [id number] 12/18/2020 04:22:00 PM EDT [facility]) Name Value Range Interpretation Code Description Data Renee rce(s) Supporting Document(s) vitamin B12 level 354 pg/mL 247-911 Vitamin B12 Level [place] ([facility]) ID Date Data Source [id number] 12/18/2020 04:22:00 PM EDT [facility]) Name Value Range Interpretation Code Description Data Renee rce(s) Supporting Document(s) folate 8.6 NG/mL >5.4 Folate [place] ([facility]) ID Date Data Source [id number] 12/18/2020 04:22:00 PM EDT [facility]) Name Value Range Interpretation Code Description Data Renee rce(s) Supporting Document(s) total 25(oh) vitamin D 13.7 NG/mL 30.0-100.0 Below low normal T otal 25(Oh) Vitamin D [place] ([facility]) ID Date Data Source [id number] 12/18/2020 04:22:00 PM EDT [facility]) Name Value Range Interpretation Code Description Data Renee rce(s) Supporting Document(s) ferritin 21 NG/mL 8-252 Ferritin [facility]) ID Date Data Source [id number] 12/18/2020 04:22:00 PM EDT [facility]) Name Value Range Interpretation Code Description Data Renee rce(s) Supporting Document(s) glucose, fasting 78 mg/dL 70-100 Glucose, Fasting AT [facility] ([facility]) creatinine for GFR 0.75 mg/dL 0.55-1.30 Creatinine for GF R [facility] ([facility]) blood urea nitrogen 15 mg/dL 7-18 Blood Urea Nitro gen [facility] ([facility]) sodium level 142 mEq/L 136-145 Sodium Level [facility] (No [facility]) glomerular filtration rate > 60.0 >60 [place] Filtration Rate [facility] ([facility]) carbon dioxide level 26 mEq/L 21-32 Carbon Dioxide Level [facility] ([facility]) chloride level 110 mEq/L 98-107 Above high normal Chloride Level [facility] ([facility]) potassium serum 4.1 mEq/L 3.5-5.1 Potassium Serum [facility] NA ([facility]) anion gap 6 mEq/L 8-16 Below low normal Anion Gap [facility] ( [facility]) calcium level 9.3 mg/dL 8.5-10.1 Calcium Level [facility] ( [facility]) ALT/SGPT 44 U/L 12-78 ALT/SGPT [facility] ([facility]) AST/SGOT 36 U/L 7-37 AST/SGOT [facility] ([facility]) bilirubin,total 0.4 mg/dL 0.2-1.0 Bilirubin,total [facility] ([facility]) alkaline phosphatase 103 U/L 45-117 Alkaline Phosph atase [facility] ([facility]) total protein 7.5 gm/dL 6.4-8.2 Total Protein [facility] ( [facility]) albumin/globulin ratio 1.2-2.2 Below low normal Albumin /globulin Ratio [facility] ([facility]) albumin 3.7 gm/dL 3.2-5.2 Albumin [facility] ([facility]) ID Date Data Source [id number] 12/18/2020 04:22:00 PM EDT [facility] ([facility]) Name Value Range Interpretation Code Description Data Renee rce(s) Supporting Document(s) cholesterol level 139 mg/dL <200 Cholesterol Level [facility] ([facility]) triglycerides level 205 mg/dL <150 Above high normal Triglycer ides Level [facility] ([facility]) Cholesterol in LDL [Mass/volume] in Serum or Plasma 60 mg/dL <1 00 LDL Cholesterol [facility] ([facility]) HDL cholesterol 38 mg/dL >40 Below low normal HDL Cholestero l [facility] ([facility]) non-HDL-C 101 mg/dL Non-hdl-c [facility] ([facility]) cholesterol risk ratio <5 Cholesterol R isk Ratio [facility] ([facility]) ID Date Data Source [id number] 12/18/2020 04:22:00 PM EDT [facility] ([facility]) Name Value Range Interpretation Code Description Data Renee rce(s) Supporting Document(s) white blood count 5.1 10 4.0-10.0 White Blood Count [facility] ([facility]) red blood count 4.31 10 4.00-5.40 Red Blood Count [facility] ([facility]) hemoglobin 13.8 g/dL 12.0-15.5 Hemoglobin [facility] ([facility]) hematocrit 44.2 % 36.0-47.0 Hematocrit [facility] ([facility]) mean corpuscular hemoglobin 32.0 pg 27.0-33.0 Mean Cor puscular Hemoglobin [facility] ([facility]) mean corpuscular volume 102.6 fL 80.0-96.0 Above high normal Mean Corpuscular Volume [facility] ([facility]) mean corpuscular HGB conc 31.2 g/dL 32.0-36.5 Below low teodoro l Mean Corpuscular HGB Conc [facility] ([facility]) red cell distribution width 12.5 % 11.5-14.5 Red Cell Distribution Width [facility] ([facility]) lymph % 30.1 % 24.0-44.0 Lymph % [facility] ([facility]) platelet count, automated 171 10 150-450 Platelet C ount, Automated [facility] ([facility]) neutrophils % 61.6 % 36.0-66.0 Neutrophils % [facility] ( [facility]) mono % 6.1 % 2.0-8.0 [place] % [facility] ([facility]) eos % 1.2 % 0.0-3.0 Eos % [facility] ([facility]) baso % 0.6 % 0.0-1.0 Baso % [facility] ([facility]) immature granulocyte % 0.4 % 0-3.0 Immature Gran ulocyte % [facility] ([facility]) neutrophils # 3.2 10 1.5-8.5 Neutrophils # [facility] ( [facility]) nucleated red blood cell % 0.0 % 0-0 Nucleated Red Blood Cell % [facility] ([facility]) lymph # 1.5 10 1.5-5.0 Lymph # [facility] ([facility]) mono # 0.3 10 0.0-0.8 [place] # [facility] ([facility]) eos # 0.1 10 0.0-0.5 Eos # [facility] ([facility]) baso # 0.0 10 0.0-0.2 Baso # [facility] ([facility]) ID Date Data Source [id number] 12/18/2020 04:22:00 PM EDT [place] ([facility]) Name Value Range Interpretation Code Description Data Renee rce(s) Supporting Document(s) glucose, fasting 78 mg/dL 70-100 Glucose, Fasting AT [facility]) blood urea nitrogen 15 mg/dL 7-18 Blood Urea Nitro gen [facility] ([facility]) creatinine for GFR 0.75 mg/dL 0.55-1.30 Creatinine for GF R [facility] ([facility]) sodium level 142 mEq/L 136-145 Sodium Level [facility] ([facility]) glomerular filtration rate > 60.0 >60 [place] r Filtration Rate [facility] ([facility]) potassium serum 4.1 mEq/L 3.5-5.1 Potassium Serum [facility] ([facility]) chloride level 110 mEq/L 98-107 Above high normal Chloride Level [place] ([facility]) carbon dioxide level 26 mEq/L 21-32 Carbon Dioxide Level [place] ([facility]) anion gap 6 mEq/L 8-16 Below low normal Anion Gap [facility] ( [facility]) AST/SGOT 36 U/L 7-37 AST/SGOT [facility] ([facility]) calcium level 9.3 mg/dL 8.5-10.1 Calcium Level [facility] ( [facility]) alkaline phosphatase 103 U/L 45-117 Alkaline Phosph atase [facility] ([facility]) ALT/SGPT 44 U/L 12-78 ALT/SGPT [facility] ([facility]) bilirubin,total 0.4 mg/dL 0.2-1.0 Bilirubin,total [facility] ([facility]) total protein 7.5 gm/dL 6.4-8.2 Total Protein [facility] ( [facility]) albumin 3.7 gm/dL 3.2-5.2 Albumin [facility] ([facility]) albumin/globulin ratio 1.2-2.2 Below low normal Albumin /globulin Ratio [facility] ([facility]) ID Date Data Source [id number] 12/18/2020 04:22:00 PM EDT [facility] ([facility]) Name Value Range Interpretation Code Description Data Renee rce(s) Supporting Document(s) iron (fe) 73 ug/dL 50-170 Iron (Fe) [facility] ([facility]) total iron binding capacity 389 ug/dL 250-450 Total Ir on Binding Capacity [facility] ([facility]) percent saturation 18.8 % 13.2-45.0 Percent Saturatio n [facility] ([facility]) ID Date Data Source [id number] 12/18/2020 04:22:00 PM EDT [facility] ([facility]) Name Value Range Interpretation Code Description Data Renee rce(s) Supporting Document(s) vitamin B12 level 354 pg/mL 247-911 Vitamin B12 Level [facility] ([facility]) ID Date Data Source [id number] 12/18/2020 04:22:00 PM EDT [facility] ([facility]) Name Value Range Interpretation Code Description Data Renee rce(s) Supporting Document(s) folate 8.6 NG/mL >5.4 Folate [facility] ([facility]) ID Date Data Source [id number] 12/18/2020 04:22:00 PM EDT [facility] ([facility]) Name Value Range Interpretation Code Description Data Renee rce(s) Supporting Document(s) total 25(oh) vitamin D 13.7 NG/mL 30.0-100.0 Below low normal T otal 25(Oh) Vitamin D [facility] ([facility]) ID Date Data Source [id number] 12/18/2020 04:22:00 PM EDT [facility] Name Value Range Interpretation Code Description Data Renee rce(s) Supporting Document(s) ferritin 21 NG/mL 8-252 Ferritin [facility] ([facility]) ID Date Data Source [id number] 12/18/2020 04:22:00 PM EDT [facility]) Name Value Range Interpretation Code Description Data Renee rce(s) Supporting Document(s) vitamin B1 level whole blood 104.4 nmol/L 66.5-200.0 Vitamin B1 Level Whole Blood [facility] ([facility]) ID Date Data Source [id number] 12/18/2020 04:22:00 PM EDT [facility] ([facility]) Name Value Range Interpretation Code Description Data Renee rce(s) Supporting Document(s) white blood count 5.1 10 4.0-10.0 White Blood Count [facility] ([facility]) red blood count 4.31 10 4.00-5.40 Red Blood Count ATHE ([facility]) hemoglobin 13.8 g/dL 12.0-15.5 Hemoglobin AZRA ([facility]) mean corpuscular volume 102.6 fL 80.0-96.0 Above high normal Mean Corpuscular Volume AZRA ([facility]) hematocrit 44.2 % 36.0-47.0 Hematocrit AZRA ([facility]) mean corpuscular HGB conc 31.2 g/dL 32.0-36.5 Below low teodoro l Mean Corpuscular HGB Conc AZRA ([facility]) mean corpuscular hemoglobin 32.0 pg 27.0-33.0 Mean Cor puscular Hemoglobin AZRA ([facility]) red cell distribution width 12.5 % 11.5-14.5 Red Cell Distribution Width AZRA ([facility]) platelet count, automated 171 10 150-450 Platelet C ount, Automated AZRA ([facility]) lymph % 30.1 % 24.0-44.0 Lymph % [place] ([facility]) neutrophils % 61.6 % 36.0-66.0 Neutrophils % AZRA ( [facility]) eos % 1.2 % 0.0-3.0 Eos % [facility] ([facility]) mono % 6.1 % 2.0-8.0 [place] % AZRA ([facility]) immature granulocyte % 0.4 % 0-3.0 Immature Gran ulocyte % AZRA ([facility]) baso % 0.6 % 0.0-1.0 Baso % AZ[facility] ([facility]) neutrophils # 3.2 10 1.5-8.5 Neutrophils # AZRA ( [facility]) nucleated red blood cell % 0.0 % 0-0 Nucleated Red Blood Cell % AZRA ([facility]) lymph # 1.5 10 1.5-5.0 Lymph # AZRA ([facility]) mono # 0.3 10 0.0-0.8 [place] # AZRA ([facility]) eos # 0.1 10 0.0-0.5 Eos # AZ[facility] ([facility]) baso # 0.0 10 0.0-0.2 Baso # AZRA ([facility]) ID Date Data Source [id number] 12/18/2020 04:22:00 PM EDT AZRA ([facility]) Name Value Range Interpretation Code Description Data Renee rce(s) Supporting Document(s) creatinine for GFR 0.75 mg/dL 0.55-1.30 Creatinine for GF R AZRA ([facility]) blood urea nitrogen 15 mg/dL 7-18 Blood Urea Nitro gen AZRA ([facility]) glucose, fasting 78 mg/dL 70-100 Glucose, Fasting AT LUC ([facility]) sodium level 142 mEq/L 136-145 Sodium Level AZRA (No [facility]) glomerular filtration rate > 60.0 >60 Glomerula r Filtration Rate AZRA ([facility]) potassium serum 4.1 mEq/L 3.5-5.1 Potassium Serum ATHE NA ([facility]) chloride level 110 mEq/L 98-107 Above high normal Chloride Level AZRA ([facility]) carbon dioxide level 26 mEq/L 21-32 Carbon Dioxide Level AZ[facility] ([facility]) anion gap 6 mEq/L 8-16 Below low normal Anion Gap AZRA ( [facility]) calcium level 9.3 mg/dL 8.5-10.1 Calcium Level AZRA ( [facility]) AST/SGOT 36 U/L 7-37 AST/SGOT [facility] ([facility]) ALT/SGPT 44 U/L 12-78 ALT/SGPT [facility] ([facility]) alkaline phosphatase 103 U/L 45-117 Alkaline Phosph atase AZRA ([facility]) total protein 7.5 gm/dL 6.4-8.2 Total Protein AZRA ( [facility]) bilirubin,total 0.4 mg/dL 0.2-1.0 Bilirubin,total ATHE NA ([facility]) albumin/globulin ratio 1.2-2.2 Below low normal Albumin /globulin Ratio AZRA ([facility]) albumin 3.7 gm/dL 3.2-5.2 Albumin AZRA ([facility]) ID Date Data Source [id number] 12/18/2020 04:22:00 PM EDT AZRA ([facility]) Name Value Range Interpretation Code Description Data Renee rce(s) Supporting Document(s) triglycerides level 205 mg/dL <150 Above high normal Triglycer ides Level AZRA ([facility]) cholesterol level 139 mg/dL <200 Cholesterol Level AZRA ([facility]) HDL cholesterol 38 mg/dL >40 Below low normal HDL Cholestero l AZRA ([facility]) Cholesterol in LDL [Mass/volume] in Serum or Plasma 60 mg/dL <1 00 LDL Cholesterol AZ[facility] ([facility]) non-HDL-C 101 mg/dL Non-hdl-c [facility] ([facility]) cholesterol risk ratio <5 Cholesterol R isk Ratio [facility] ([facility]) ID Date Data Source [id number] 12/18/2020 04:22:00 PM EDT AZRA ([facility]) Name Value Range Interpretation Code Description Data Renee rce(s) Supporting Document(s) total iron binding capacity 389 ug/dL 250-450 Total Ir on Binding Capacity AZ[facility] ([facility]) iron (fe) 73 ug/dL 50-170 Iron (Fe) AZ[facility] ([facility]) percent saturation 18.8 % 13.2-45.0 Percent Saturatio n AZRA ([facility]) ID Date Data Source [id number] 12/18/2020 04:22:00 PM EDT AZRA ([facility]) Name Value Range Interpretation Code Description Data Renee rce(s) Supporting Document(s) vitamin B12 level 354 pg/mL 247-911 Vitamin B12 Level [facility] ([facility]) ID Date Data Source [id number] 12/18/2020 04:22:00 PM EDT AZRA ([facility]) Name Value Range Interpretation Code Description Data Renee rce(s) Supporting Document(s) folate 8.6 NG/mL >5.4 Folate [facility] ([facility]) ID Date Data Source [id number] 12/18/2020 04:22:00 PM EDT [place] ([facility]) Name Value Range Interpretation Code Description Data Renee rce(s) Supporting Document(s) vitamin B1 level whole blood 104.4 nmol/L 66.5-200.0 Vitamin B1 Level Whole Blood [place] ([facility]) ID Date Data Source [id number] 12/18/2020 04:22:00 PM EDT [place] ([facility]) Name Value Range Interpretation Code Description Data Renee rce(s) Supporting Document(s) total 25(oh) vitamin D 13.7 NG/mL 30.0-100.0 Below low normal T otal 25(Oh) Vitamin D [place] ([facility]) ID Date Data Source [id number] 12/18/2020 04:22:00 PM EDT [place] ([facility]) Name Value Range Interpretation Code Description Data Renee rce(s) Supporting Document(s) ferritin 21 NG/mL 8-252 Ferritin [facility] ([facility]) ID Date Data Source [id number] 12/14/2020 05:14:31 PM EDT [facility] Name Value Range Interpretation Code Description Data Renee rce(s) Supporting Document(s) Progress Note [facility] [id number] [facility] [file] 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 [file] [id number] ID Date Data Source [id number] 11/27/2020 12:43:00 AM EDT [place] ([facility]) Name Value Range Interpretation Code Description Data Renee rce(s) Supporting Document(s) color, urine rfx straw yellow Color, Urine Rfx AT [facility] ([facility]) appearance, urine rfx clear clear Appearance, Ur ine Rfx [facility] ([facility]) protein, urine auto rfx negative negative Protein, Uri ne Auto Rfx [facility] ([facility]) specific gravity ur auto rfx 1.002-1.035 Specif ic [place] Ur Auto Rfx [facility] ([facility]) pH,urine rfx 5.0 units 5.0-9.0 pH,urine [facility] glucose, urine (UA) auto rfx negative negative Glucose , Urine (UA) Auto Rfx [facility] ([facility]) ketone, urine auto rfx negative negative Ketone, Urine Auto Rfx [place] ([facility]) nitrite, urine auto rfx negative negative Nitrite, Uri ne Auto Rfx [place] ([facility]) urobilinogen, urine auto rfx 0.2 mg/dL 0.0-2.0 Urobili nogen, Urine Auto Rfx [place] ([facility]) bilirubin, urine auto rfx negative negative Bilirubin, Urine Auto Rfx [facility] ([facility]) WBC, urine auto rfx 0 /hpf 0-3 WBC, Urine Auto Rfx [place] ([facility]) blood, urine blood rfx negative negative Blood, Urine Blood Rfx [place] ([facility]) leukocyte esterase ur auto rfx negative negative Leukocyte Esterase Ur Auto Rfx [place] ([facility]) bacteria, urine auto rfx negative negative Bacteria, U rine Auto Rfx [place] ([facility]) RBC, urine auto rfx 0 /hpf 0-3 RBC, Urine Auto Rfx [facility] ([facility]) mucus, urine rfx small negative Mucus, Urine Rfx AT [facility] ([facility]) squam epithelial cell ur aurfx 1 /hpf 0-6 Squam Epithelial Cell Ur Aurfx [place] ([facility]) hyaline cast, urine auto rfx 0 /lpf 0-1 Hyaline Cast, Urine Auto Rfx [place] ([facility]) ID Date Data Source [id number] 11/27/2020 12:43:00 AM EDT [place] ([facility]) Name Value Range Interpretation Code Description Data Renee rce(s) Supporting Document(s) color, urine rfx straw yellow Color, Urine Rfx AT [facility] ([facility]) appearance, urine rfx clear clear Appearance, Ur ine Rfx [place] ([facility]) specific gravity ur auto rfx 1.002-1.035 Specif ic [place] Ur Auto Rfx [facility] ([facility]) pH,urine rfx 5.0 units 5.0-9.0 pH,urine Rfx [facility] ([facility] glucose, urine (UA) auto rfx negative negative Glucose , Urine (UA) Auto Rfx [place] ([facility]) protein, urine auto rfx negative negative Protein, Uri ne Auto Rfx [place] ([facility]) ketone, urine auto rfx negative negative Ketone, Urine Auto Rfx [place] ([facility]) urobilinogen, urine auto rfx 0.2 mg/dL 0.0-2.0 Urobili nogen, Urine Auto Rfx [place] ([facility]) bilirubin, urine auto rfx negative negative Bilirubin, Urine Auto Rfx [place] ([facility]) nitrite, urine auto rfx negative negative Nitrite, Uri ne Auto Rfx [place] ([facility]) leukocyte esterase ur auto rfx negative negative Leukocyte Esterase Ur Auto Rfx [place] ([facility]) blood, urine blood rfx negative negative Blood, Urine Blood Rfx [place] ([facility]) WBC, urine auto rfx 0 /hpf 0-3 WBC, Urine Auto Rfx [place] ([facility]) bacteria, urine auto rfx negative negative Bacteria, U rine Auto Rfx [place] ([facility]) RBC, urine auto rfx 0 /hpf 0-3 RBC, Urine Auto Rfx [place] ([facility]) squam epithelial cell ur aurfx 1 /hpf 0-6 Squam Epithelial Cell Ur Aurfx [place] ([facility]) mucus, urine rfx small negative Mucus, Urine Rfx AT [facility] ([facility]) hyaline cast, urine auto rfx 0 /lpf 0-1 Hyaline Cast, Urine Auto Rfx [place] ([facility]) ID Date Data Source [id number] 11/27/2020 12:43:00 AM EDT [place] ([facility]) Name Value Range Interpretation Code Description Data Renee rce(s) Supporting Document(s) appearance, urine rfx clear clear Appearance, Ur ine Rfx [facility] ([facility]) color, urine rfx straw yellow Color, Urine Rfx AT [facility] ([facility]) specific gravity ur auto rfx 1.002-1.035 Specif ic [place] Ur Auto Rfx [place] ([facility]) pH,urine rfx 5.0 units 5.0-9.0 pH,urine Rfx [place] (No [facility]) glucose, urine (UA) auto rfx negative negative Glucose , Urine (UA) Auto Rfx [place] ([facility]) ketone, urine auto rfx negative negative Ketone, Urine Auto Rfx [place] ([facility]) protein, urine auto rfx negative negative Protein, Uri ne Auto Rfx [place] ([facility]) urobilinogen, urine auto rfx 0.2 mg/dL 0.0-2.0 Urobili nogen, Urine Auto Rfx [place] ([facility]) bilirubin, urine auto rfx negative negative Bilirubin, Urine Auto Rfx [place] ([facility]) nitrite, urine auto rfx negative negative Nitrite, Uri ne Auto Rfx [place] ([facility]) leukocyte esterase ur auto rfx negative negative Leukocyte Esterase Ur Auto Rfx [place] ([facility]) WBC, urine auto rfx 0 /hpf 0-3 WBC, Urine Auto Rfx [place] ([facility]) blood, urine blood rfx negative negative Blood, Urine Blood Rfx [place] ([facility]) RBC, urine auto rfx 0 /hpf 0-3 RBC, Urine Auto Rfx [place] ([facility]) bacteria, urine auto rfx negative negative Bacteria, U rine Auto Rfx [place] ([facility]) squam epithelial cell ur aurfx 1 /hpf 0-6 Squam Epithelial Cell Ur Aurfx [facility] ([facility]) hyaline cast, urine auto rfx 0 /lpf 0-1 Hyaline Cast, Urine Auto Rfx [facility] ([facility]) mucus, urine rfx small negative Mucus, Urine Rfx AT [facility] ([facility]) ID Date Data Source [id number] 11/23/2020 03:55:00 AM EDT [facility] Name Value Range Interpretation Code Description Data Renee rce(s) Supporting Document(s) COVID-19 RT-PCR NASAL SWAB Not Detected Not Detected [facility] A not detected (negative) test result fo [...] developed and its performance characteristics determined by [employer] and verified at [facility]. It has not been cleared or approved by the U.S. Food and Drug Administration for diagnostic use. This test has been authorized by FDA under an EUA for use by authorized laboratories. Results should be used in conjunction with clinical findings, and should not form the sole basis for a diagnosis or treatment decision. Methods: SARS-CoV-2 Multiplex RT-PCR Assay ID Date Data Source [id number] 11/20/2020 07:45:00 PM EDT [facility] Name Value Range Interpretation Code Description Data Renee rce(s) Supporting Document(s) SARS-CoV-2 (COVID-19) N gene [Presence] in Respiratory specimen by HUNG with probe detection NEGATIVE [facility] This lab was ordered by Neris Beverly and reported by [employer]. ID Date Data Source [id number] 11/20/2020 12:00:00 AM EDT [facility] Name Value Range Interpretation Code Description Data Renee rce(s) Supporting Document(s) Carestart Rapid COVID Antigen Test Negative [facility] This lab was reported by Neris villasenor. ID Date Data Source [id number] 11/17/2020 09:10:00 PM EDT AZRA ([facility]) Name Value Range Interpretation Code Description Data Renee rce(s) Supporting Document(s) red blood count 4.19 10 4.00-5.40 [facility] white blood count 6.3 10 4.0-10.0 White Blood Count [facility]) hemoglobin 13.4 g/dL 12.0-15.5 Hemoglobin [facility]) hematocrit 41.7 % 36.0-47.0 Hematocrit [place] ([facility]) mean corpuscular volume 99.5 fL 80.0-96.0 Above high normal Mean Corpuscular Volume [place] ([facility]) mean corpuscular HGB conc 32.1 g/dL 32.0-36.5 Mean Corpu scular HGB Conc [place] ([facility]) mean corpuscular hemoglobin 32.0 pg 27.0-33.0 Mean Cor puscular Hemoglobin [place] ([facility]) platelet count, automated 199 10 150-450 Platelet C ount, Automated [facility]) neutrophils % 61.9 % 36.0-66.0 Neutrophils % [place] ( [facility]) red cell distribution width 12.9 % 11.5-14.5 Red Cell Distribution Width [facility]) eos % 1.3 % 0.0-3.0 Eos % [place] ([facility]) lymph % 28.1 % 24.0-44.0 Lymph % [facility] ([facility]) mono % 7.7 % 2.0-8.0 [place] % [facility] ([facility]) immature granulocyte % 0.5 % 0-3.0 Immature Gran ulocyte % [facility] ([facility]) baso % 0.5 % 0.0-1.0 Baso % [facility] ([facility]) neutrophils # 3.9 10 1.5-8.5 Neutrophils # [facility]RA ( [facility]) nucleated red blood cell % 0.0 % 0-0 Nucleated Red Blood Cell % [facility] ([facility]) lymph # 1.8 10 1.5-5.0 Lymph # [place] ([facility]) baso # 0.0 10 0.0-0.2 Baso # [place] ([facility]) eos # 0.1 10 0.0-0.5 Eos # [facility] ([facility]) mono # 0.5 10 0.0-0.8 [place] # [facility]RA ([facility]) ID Date Data Source [id number] 11/17/2020 09:10:00 PM EDT [place] ([facility]) Name Value Range Interpretation Code Description Data Renee rce(s) Supporting Document(s) glucose, fasting 97 mg/dL 70-100 Glucose, Fasting AT [facility]) glomerular filtration rate > 60.0 >60 [place]omerula r Filtration Rate AZ[facility] ([facility]) blood urea nitrogen 12 mg/dL 7-18 Blood Urea Nitro gen [facility] ([facility]) creatinine for GFR 0.78 mg/dL 0.55-1.30 Creatinine for GF R [place] ([facility]) chloride level 110 mEq/L 98-107 Above high normal Chloride Level [place] ([facility]) potassium serum 4.2 mEq/L 3.5-5.1 Potassium Serum ATH NA ([facility]) sodium level 142 mEq/L 136-145 Sodium Level AZRA ([facility]) carbon dioxide level 28 mEq/L 21-32 Carbon Dioxide Level [facility] ([facility]) anion gap 4 mEq/L 8-16 Below low normal Anion Gap AZRA ( [facility]) calcium level 8.9 mg/dL 8.5-10.1 Calcium Level [facility] ( [facility]) ID Date Data Source [id number] 11/17/2020 09:10:00 PM EDT [facility] ([facility]) Name Value Range Interpretation Code Description Data Renee rce(s) Supporting Document(s) magnesium level 2.0 mg/dL 1.8-2.4 Magnesium Level ATHE NA ([facility]) ID Date Data Source [id number] 11/17/2020 09:10:00 PM EDT [facility] ([facility]) Name Value Range Interpretation Code Description Data Renee rce(s) Supporting Document(s) glucose, fasting 97 mg/dL 70-100 Glucose, Fasting AT [facility]) blood urea nitrogen 12 mg/dL 7-18 Blood Urea Nitro gen AZRA ([facility]) creatinine for GFR 0.78 mg/dL 0.55-1.30 Creatinine for GF R AZRA ([facility]) glomerular filtration rate > 60.0 >60 [place]omer[place] r Filtration Rate AZRA ([facility]) sodium level 142 mEq/L 136-145 Sodium Level AZRA (No [facility]) potassium serum 4.2 mEq/L 3.5-5.1 Potassium Serum ATHE NA ([facility]) carbon dioxide level 28 mEq/L 21-32 Carbon Dioxide Level [facility] ([facility]) anion gap 4 mEq/L 8-16 Below low normal Anion Gap AZRA ( [facility]) chloride level 110 mEq/L 98-107 Above high normal Chloride Level [facility] ([facility]) calcium level 8.9 mg/dL 8.5-10.1 Calcium Level AZ[facility] ( [facility]) ID Date Data Source [id number] 11/17/2020 09:10:00 PM EDT [facility] ([facility]) Name Value Range Interpretation Code Description Data Renee rce(s) Supporting Document(s) magnesium level 2.0 mg/dL 1.8-2.4 Magnesium Level ATHE [place] ([facility]) ID Date Data Source [id number] 11/17/2020 09:10:00 PM EDT [facility] ([facility]) Name Value Range Interpretation Code Description Data Renee rce(s) Supporting Document(s) red blood count 4.19 10 4.00-5.40 Red Blood Count ATHE NA ([facility]) white blood count 6.3 10 4.0-10.0 White Blood Count [facility] ([facility]) hematocrit 41.7 % 36.0-47.0 Hematocrit [place] ([facility]) hemoglobin 13.4 g/dL 12.0-15.5 Hemoglobin [place] ([facility]) mean corpuscular volume 99.5 fL 80.0-96.0 Above high normal Mean Corpuscular Volume [facility] ([facility]) mean corpuscular hemoglobin 32.0 pg 27.0-33.0 Mean Cor puscular Hemoglobin [place] ([facility]) red cell distribution width 12.9 % 11.5-14.5 Red Cell Distribution Width [place] ([facility]) mean corpuscular HGB conc 32.1 g/dL 32.0-36.5 Mean Corpu scular HGB Conc [place] ([facility]) platelet count, automated 199 10 150-450 Platelet C ount, Automated [place] ([facility]) neutrophils % 61.9 % 36.0-66.0 Neutrophils % [place] ( [facility]) mono % 7.7 % 2.0-8.0 [place] % [place] ([facility]) lymph % 28.1 % 24.0-44.0 Lymph % [place] ([facility]) baso % 0.5 % 0.0-1.0 Baso % [place] ([facility]) immature granulocyte % 0.5 % 0-3.0 Immature Gran ulocyte % [place] ([facility]) eos % 1.3 % 0.0-3.0 Eos % [facility] ([facility]) nucleated red blood cell % 0.0 % 0-0 Nucleated Red Blood Cell % [facility] ([facility]) lymph # 1.8 10 1.5-5.0 Lymph # [facility] ([facility]) neutrophils # 3.9 10 1.5-8.5 Neutrophils # AZRA ( [facility]) eos # 0.1 10 0.0-0.5 Eos # [facility] ([facility]) baso # 0.0 10 0.0-0.2 Baso # [facility] ([facility]) mono # 0.5 10 0.0-0.8 [place] # [facility]RA ([facility]) ID Date Data Source [id number] 11/17/2020 09:10:00 PM EDT [facility] ([facility]) Name Value Range Interpretation Code Description Data Renee rce(s) Supporting Document(s) white blood count 6.3 10 4.0-10.0 White Blood Count [facility] ([facility]) hemoglobin 13.4 g/dL 12.0-15.5 Hemoglobin [facility] ([facility]) red blood count 4.19 10 4.00-5.40 Red Blood Count ATHE NA ([facility]) mean corpuscular volume 99.5 fL 80.0-96.0 Above high normal Mean Corpuscular Volume [facility] ([facility]) hematocrit 41.7 % 36.0-47.0 Hematocrit [facility] ([facility]) mean corpuscular hemoglobin 32.0 pg 27.0-33.0 Mean Cor puscular Hemoglobin [facility] ([facility]) mean corpuscular HGB conc 32.1 g/dL 32.0-36.5 Mean Corpu scular HGB Conc [facility] ([facility]) red cell distribution width 12.9 % 11.5-14.5 Red Cell Distribution Width [facility] ([facility]) neutrophils % 61.9 % 36.0-66.0 Neutrophils % [facility] ( [facility]) platelet count, automated 199 10 150-450 Platelet C ount, Automated [place] ([facility]) mono % 7.7 % 2.0-8.0 [place] % [place] ([facility]) lymph % 28.1 % 24.0-44.0 Lymph % [place] ([facility]) eos % 1.3 % 0.0-3.0 Eos % [place] ([facility]) immature granulocyte % 0.5 % 0-3.0 Immature Gran ulocyte % [place] ([facility]) baso % 0.5 % 0.0-1.0 Baso % [place] ([facility]) nucleated red blood cell % 0.0 % 0-0 Nucleated Red Blood Cell % [place] ([facility]) lymph # 1.8 10 1.5-5.0 Lymph # [place] ([facility]) neutrophils # 3.9 10 1.5-8.5 Neutrophils # [place] ( [facility]) mono # 0.5 10 0.0-0.8 [place] # [place] ([facility]) baso # 0.0 10 0.0-0.2 Baso # [place] ([facility]) eos # 0.1 10 0.0-0.5 Eos # [place] ([facility]) ID Date Data Source [id number] 11/17/2020 09:10:00 PM EDT [place] ([facility]) Name Value Range Interpretation Code Description Data Renee rce(s) Supporting Document(s) glucose, fasting 97 mg/dL 70-100 Glucose, Fasting AT [facility] ([facility]) blood urea nitrogen 12 mg/dL 7-18 Blood Urea Nitro gen [place] ([facility]) creatinine for GFR 0.78 mg/dL 0.55-1.30 Creatinine for GF R [place] ([facility]) sodium level 142 mEq/L 136-145 Sodium Level [facility] (No [facility]) potassium serum 4.2 mEq/L 3.5-5.1 Potassium Serum ATHE NA ([facility]) glomerular filtration rate > 60.0 >60 Glomerula r Filtration Rate [facility] ([facility]) chloride level 110 mEq/L 98-107 Above high normal Chloride Level [facility] ([facility]) carbon dioxide level 28 mEq/L 21-32 Carbon Dioxide Level [facility] ([facility]) anion gap 4 mEq/L 8-16 Below low normal Anion Gap [facility] ( [facility]) calcium level 8.9 mg/dL 8.5-10.1 Calcium Level [facility] ( [facility]) ID Date Data Source [id number] 11/17/2020 09:10:00 PM EDT AZ[facility] ([facility]) Name Value Range Interpretation Code Description Data Renee rce(s) Supporting Document(s) magnesium level 2.0 mg/dL 1.8-2.4 Magnesium Level ATHE ([facility]) ID Date Data Source [id number] 11/17/2020 09:10:00 PM EDT [facility] ([facility]) Name Value Range Interpretation Code Description Data Renee rce(s) Supporting Document(s) magnesium level 2.0 mg/dL 1.8-2.4 Magnesium Level ATHE NA ([facility]) ID Date Data Source [id number] 11/17/2020 09:10:00 PM EDT AZRA ([facility]) Name Value Range Interpretation Code Description Data Renee rce(s) Supporting Document(s) white blood count 6.3 10 4.0-10.0 White Blood Count [facility] ([facility]) hemoglobin 13.4 g/dL 12.0-15.5 Hemoglobin [facility] ([facility]) red blood count 4.19 10 4.00-5.40 Red Blood Count ATHE NA ([facility]) hematocrit 41.7 % 36.0-47.0 Hematocrit [facility] ([facility]) mean corpuscular hemoglobin 32.0 pg 27.0-33.0 Mean Cor puscular Hemoglobin [facility] ([facility]) mean corpuscular volume 99.5 fL 80.0-96.0 Above high normal Mean Corpuscular Volume [facility] ([facility]) mean corpuscular HGB conc 32.1 g/dL 32.0-36.5 Mean Corpu scular HGB Conc [facility] ([facility]) platelet count, automated 199 10 150-450 Platelet C ount, Automated [facility] ([facility]) red cell distribution width 12.9 % 11.5-14.5 Red Cell Distribution Width [facility] ([facility]) neutrophils % 61.9 % 36.0-66.0 Neutrophils % [facility] ( [facility]) eos % 1.3 % 0.0-3.0 Eos % [place] ([facility]) mono % 7.7 % 2.0-8.0 [place] % [place] ([facility]) lymph % 28.1 % 24.0-44.0 Lymph % [place] ([facility]) baso % 0.5 % 0.0-1.0 Baso % [place] ([facility]) immature granulocyte % 0.5 % 0-3.0 Immature Gran ulocyte % [facility] ([facility]) neutrophils # 3.9 10 1.5-8.5 Neutrophils # [facility] ( [facility]) lymph # 1.8 10 1.5-5.0 Lymph # [place] ([facility]) nucleated red blood cell % 0.0 % 0-0 Nucleated Red Blood Cell % [facility] ([facility]) mono # 0.5 10 0.0-0.8 [place] # [place] ([facility]) baso # 0.0 10 0.0-0.2 Baso # [facility] ([facility]) eos # 0.1 10 0.0-0.5 Eos # [place] ([facility]) ID Date Data Source [id number] 11/17/2020 09:10:00 PM EDT [place] ([facility]) Name Value Range Interpretation Code Description Data Renee rce(s) Supporting Document(s) glucose, fasting 97 mg/dL 70-100 Glucose, Fasting AT LUC ([facility]) sodium level 142 mEq/L 136-145 Sodium Level [facility] (No [facility]) blood urea nitrogen 12 mg/dL 7-18 Blood Urea Nitro gen [facility] ([facility]) glomerular filtration rate > 60.0 >60 [place] Filtration Rate [facility] ([facility]) creatinine for GFR 0.78 mg/dL 0.55-1.30 Creatinine for GF R [facility] ([facility]) chloride level 110 mEq/L 98-107 Above high normal Chloride Level [place] ([facility]) carbon dioxide level 28 mEq/L 21-32 Carbon Dioxide Level [place] ([facility]) potassium serum 4.2 mEq/L 3.5-5.1 Potassium Serum ATH NA ([facility]) anion gap 4 mEq/L 8-16 Below low normal Anion Gap [facility] ( [facility]) calcium level 8.9 mg/dL 8.5-10.1 Calcium Level [place] ( [facility]) ID Date Data Source [id number] 10/23/2020 09:12:28 AM EDT [facility] Name Value Range Interpretation Code Description Data Renee rce(s) Supporting Document(s) Progress Note [facility] FCPTZd0pKkOKZgUd50/WGCqyEMTxs2CyCYheSJd8QHrkQFTgM2IhJJS3vE0xLHD9PHeVRzYhMiGaXOY8 lbm MkYisNKxCdKRYfJcaFQmQfAPzcSyqdgFBpUU7JyCC8LWIaV42pOYOpNUSrP3VaFAH7OdD+Vp7CVHJrkE NgDM6AAzgA1Z0ePffVFb3+7l1Fil13Z2QJEhzp7vknRCbECudNrQ3Fu03ioDVsnMLdQ3v6a/luM80Dnh fWM18VGjpVvL43zQd7Sld5ydy9ye5M/vdVrQeeZVlq +m/1KQf6Mh4Nz/2Qyxwn9Ghg/XzfSC8TTeqH+QPpV8d++AK8M778dZV1mrvkhL2ULpSwuBKSehg1Fd68 1qio7V94+SN6YCbtW48+2j8+DJR7oDXzfa4vDl+w0E201DawmpgbCNT97N4EbuZIlfl8KaWzAkbRoEiA kjzhuLxElaMx1A68YEOE2tCDrPmqlAtiS4MO94CkZ1 J9UWs2gOqmAxFtDG6IDvz7SF28S2OuvU3d+AJH5/ls2btHzunAp6mHSkb9ps0+YsrnJmq1KZ8ZH92+FZ xPYwBdZriK4CzfnbcAP+xwkQGDUxAjjny31o8/ByibGtKnLV3ZQSeG7CTpm+Yq8iPtxO8LiNbI9UvByU JDjzztOewbCGR4dE2sB8fKf/1s+Hz8KpsBD+4p9Vav r0Obljx1ET4WwE2xQE1ZpaDOqM5S6gheLC0vq2HO3f/PbICUiW7TpoITfMSeh8Rs0+XsoV2UFvdl6KuW s40whsjJTF34e6gyP7s4ulSbqNUfeZbZOAYd1HPVesAgj/zU4hJpau0qLq+XG2ZdzAr8FBfM0fDiI9rJ PAUL+Joshua/y8IF5WuxNjBmgPdp4z7r05eNkbIFfcLeFKh [file] AgICAgICAgICAgICAgICAgICAgICAgICAgICAgICAgICAgICAgICAgICAgICAgICAgICAgICAgICAgIC AgICAgICAgICAgICAgICAgICAgDQogICAgICAgICAg ICAgICAgICAgICAgICAgICAgICAgICAgICAgICAgICAgICAgICAgICAgICAgICAgICAgICAgICAgICAg ICAgICAgICAgICAgICAgICAgICAgICAgICAgICAgDQogICAgICAgICAgICAgICAgICAgICAgICAgICAg ICAgICAgICAgICAgICAgICAgICAgICAgICAgICAgIC AgICAgICAgICAgICAgICAgICAgICAgICAgICAgICAgICAgICAgICAgDQogICAgICAgICAgICAgICAgIC AgICAgICAgICAgICAgICAgICAgICAgICAgICAgICAgICAgICAgICAgICAgICAgICAgICAgICAgICAgIC AgICAgICAgICAgICAgICAgICAgICAgDQogICAgICAg ICAgICAgICAgICAgICAgICAgICAgICAgICAgICAgICAgICAgICAgICAgICAgICAgICAgICAgICAgICAg ICAgICAgICAgICAgICAgICAgICAgICAgICAgICAgICAgDQogICAgICAgICAgICAgICAgICAgICAgICAg ICAgICAgICAgICAgICAgICAgICAgICAgICAgICAgIC AgICAgICAgICAgICAgICAgICAgICAgICAgICAgICAgICAgICAgICAgICAgDQogICAgICAgICAgICAgIC AgICAgICAgICAgICAgICAgICAgICAgICAgICAgICAgICAgICAgICAgICAgICAgICAgICAgICAgICAgIC AgICAgICAgICAgICAgICAgICAgICAgICAgDQogICAg ICAgICAgICAgICAgICAgICAgICAgICAgICAgICAgICAgICAgICAgICAgICAgICAgICAgICAgICAgICAg ICAgICAgICAgICAgICAgICAgICAgICAgICAgICAgICAgICAgDQogICAgICAgICAgICAgICAgICAgICAg ICAgICAgICAgICAgICAgICAgICAgICAgICAgICAgIC AgICAgICAgICAgICAgICAgICAgICAgICAgICAgICAgICAgICAgICAgICAgICAgDQogICAgICAgICAgIC AgICAgICAgICAgICAgICAgICAgICAgICAgICAgICAgICAgICAgICAgICAgICAgICAgICAgICAgICAgIC AgICAgICAgICAgICAgICAgICAgICAgICAgICAgDQo8 T8eiQVIwIQYrKI0nZDe4Qi1+OXjOPwNrLBH3rfZzmA3ZEM1uv5LjFYwgGIOok7XgPWh6SY9FLCWrPKfj ZJ9GNIthox3CNIIePWUivNXUj4oxTjLzWTE0OGDfZqorTN3COMWiU9akifMxCYVtVGKJHBboNMKUSBfl VWRXOMBsPJDpPtGsLsQjWEBxKT9LAEYjJ140foHmJQ 8JSz6ZQtPfWG2aug9KXbTvWEBhOytZNqf5LAieFE9HfERgiHSrFHPqNTYNGdRjF4zrb6ZiSaNwRZWMOB fnVY9Cb0CqzEPnZHj+Lu7QWU3ig5KwYBkjQYGnLC0whu6YOVfYNuFyP1WkqAxcVPAhs5swYYKcBB7upP BjSTR5XJz0VU4tbJ5mVGkkLM8OQVF8KLZkFu6mXJMr ZCJ5CbWnEMUKUL1BJCXpHHYlhKOeMJNvHFTSPT8GSEwtCOU4GZPtcsIjzEKvNJhfQR3TSHLhdiEfLmUl MCBSDQo+Qy7MUP0ab4IeBOyfFpPxTO2ahw4ZJZqWGmVbQ0O8vGGkK6V5CQkpQc5JXPFqDEQkNnkxOTLB CWynQU5FIA9bdjB5UG5OwPPdSGCkDHQqmYAtGAl2V1 5kbKDlKAmdXK8GMUX+Ivett+Tv5XXQPvWILlSKFrNaFtUHEIHqJwI6ReZ4ZVq9NcF3FxLC85qFizkaXhKA ujDE5ACK4sULVfRVISIC9TxZQwrV2fgjWvMYRnUFVCSqWxL69omTZaAFCiAJU7KOTsFm2GGVMxD5Kdne XmuSushiElGMHmJZBXAM2ISViaxbAbkXDptIjhTY44 cIcoSP6IUa9EWeUsVS8tjm1MgPPnDw6SRQOfIa4PQNWzBEDjHCDdXMA9JFYoMxDuMOnyWFVhOQTvINR5 JKKvLAAaPO6XZhLqTXLcTUX1QjDsPOLtWZLzki1MRREtESH2UnXdPTSuNZWgHBNvGGtyRCFlFRDgIRJ5 YRMzLEBzDE3DWfSbOTJsSHX1UZVzMIAfQQGmmr1GRO BzJQIrGpgsVERgQJBxVZEyESpdQIJgPEZ0JdMkMRJmGEEcHY3OQeXfNFLgAHP2KnOnDWZkYHGgdl7CGZ FxANBgYAA6NlJmGBEvZXRoHVdrEJHhNECaQVL2YCGyACIuUB2LUvOyPTGfUGZ6ZGEfXIHsONTgoa6JZS PyQUVpFIMkTAZfWNMcMQBnUViiBTWfDCJ1KuTaXWVz BULgJJ2PRsOfHXSjYZZ3QXxaTITrBRCgii7WIFEhMVZiQag0FSEaCQSzRYPoABpnMBHeXNP4KFs6EINp KYOaBH3XEfGcTNQiDDxvYAbdQJEgDRRucg4BQDKyDGCoNQXzYLQpAGEfVYCuXUjcNIAbHAP3TlKyGTEm PUBoCB4BUnWbYVPcMAd3LIgtWYKoAVXbfn7BIDDlMS J7OhF3UNOxNKJzWZXpFUelIHHoJSTyWyJ8RCZoXVElGP7UEaJjHLGlOIW8DehrTDNfMSJjhc7NAHVsVU W0TBA5ZOTfIHYuJPCdZGgvTKYpSJS9LIF2WUOxHAOwDC5ZFmShYSFbBOR4XNaaUIIiGYObil9WKVOyNQ C5UZV7JlZrVUGuOADuPXatOVToBQT7UNJ7TQDeNTLw CA4GJyYuRFGmTHWhTfBkZKBaNYNerz0PLUIoRXF2ZbyiFGLmTJHwQHSkYJahFFCaUUC1VIT4PBIjQKBz QB4SAaBbAVXaAQz9IBNmIOZvXENzmt0JdNOwdRgjxe3CQZpCEo0ArNtmCZHmEDjxSs0piYNgTnToXRRX Qf9DgjHxENXzAUKMSUpgJWGuJERhYLMnVmQgIkXnMa Z3BYV5LQJxKRggPDqoITY0QhAjImV4NeJiEMI0WDHgMyCpJCrrZlibMbStFUZeGgF4RRW5GeL+IF0gDQ o+Os7Zd6GfchL3zlPoYDz9WSV5YV0ATFWQP3MQVz== ID Date Data Source [id number] 10/22/2020 07:15:45 AM EDT [facility] Name Value Range Interpretation Code Description Data Renee rce(s) Supporting Document(s) Progress Note [facility] PDLPYt1vYwPJDdRf16/VUEnjFZLxh0IiNFwnZIz4KUwiELIyD0WeQTN5vL4hEHX9DGcDXxHmPoPlADJ0 lbm [file] Tt1ZXfNhJlIJApSyKU5BJZt= ID Date Data Source [id number] 10/03/2020 09:12:18 PM EDT [facility] Name Value Range Interpretation Code Description Data Renee rce(s) Supporting Document(s) Progress Note [facility] PCPGIk1gHvGBUmGo68/AWXqiWEYkn1UoJEylCUi1RIqiJMNaX3IyKGT8pQ1jYCA2SFvVDfZfNkTsZcA5 lbm [file] ICAgICAgICAgICAgICAgICAgICAgICAgICAgICAgIC AgICAgICAgICAgICAgICAgICAgICAgICAgICAgICAgICAgICAgICAgICAgICAgICAgICAgICAgICAgIA 0KICAgICAgICAgICAgICAgICAgICAgICAgICAgICAgICAgICAgICAgICAgICAgICAgICAgICAgICAgIC AgICAgICAgICAgICAgICAgICAgICAgICAgICAgICAg XEWgUIUuBGPgOI0UUGScOFUhLTXcNMXrVSCtKSVzVAMbNKEnONZgGPUiIOCxMREjFCEzLTLgEJZhNQRb IVOgREHbWXTjPBUaPMHwYAAwCUMxAONxFHUzSGLgXJVjVWFaZTXlCXLiZRNvQCOsYISdZO4EECQvHYUc ICAgICAgICAgICAgICAgICAgICAgICAgICAgICAgIC AgICAgICAgICAgICAgICAgICAgICAgICAgICAgICAgICAgICAgICAgICAgICAgICAgICAgICAgICAgIC KmBJ5FCWMcASBkLQRaJDOhVVGsXDQiXGIfBQRvDTJxTMDiYBBqEIQyVAXcVQYtRLFiUPHmDKNmCDUaCD AgICAgICAgICAgICAgICAgICAgICAgICAgICAgICAg BKPeDICzUBQfAOGxNC7GUCHlRWFkNRLaSUJdDOGpGXCeUKQvOVToVHYpTEAnBGFjFLTxHBXoYQAjUCMi BQGfJENcPFVlDRFqDKEeUNMhPHAiMZOlQKErSVMiDMUsDEHzZJTsUCGeMDMiCVEsGXGkYIRcIN6OSCIo ICAgICAgICAgICAgICAgICAgICAgICAgICAgICAgIC AgICAgICAgICAgICAgICAgICAgICAgICAgICAgICAgICAgICAgICAgICAgICAgICAgICAgICAgICAgIC SrCQTaFH0NFJHwXJWgCMOrBFMaQDNmAMMdHWPmBHUzFBUwZAPjSVQiUVIfMRDsPTZaZJKqHQOrYNPjEB AgICAgICAgICAgICAgICAgICAgICAgICAgICAgICAg AYExGTMyFWDbWDXaYQFwBQ7IQYHtFTHtRFEuSKLcZMKnWKZsXGDsJDLgYXYuADFkJZDbYVXsQUZhALIr JOGnBMQuDFDfHDFhVRMiFXAaLWLbFDHfPPZkKGOwAEScPZQzLLNfAWUtNNVuISZsYDShXAJnINUjZD9X ICAgICAgICAgICAgICAgICAgICAgICAgICAgICAgIC AgICAgICAgICAgICAgICAgICAgICAgICAgICAgICAgICAgICAgICAgICAgICAgICAgICAgICAgICAgIC QcDKVfLADvAT2BML32wSGhk6C2ARAyMI0hbol/Af3TDJlschJufBVrSL4NXbFwAT0xvq7PMfJjOB9dff 0ZEQwGWtZnX5R5yMBgGREzVRGQAuHyP28eTAlcCf99 MLnpKNYeMcRlKUf8La8HXdXoZ3zyCVNzFyE6YUHdNcK0PRUeCsK1HCAyHnWkQFWjOXEeRKDeHOPDBBF1 MJMbGiOtAnMaJEKiAK6OAHZoZ486vwYdOb7KMp4YYhSlNV2xog8YPtmkZLOmMsyQKgr4SIyqAC9DqXVr qOFoERSpLCGBKyYxK4nxl4SeJulgYRTVHKvqOF0Kz1 VudCAxDQo+Xb4OUC1py4MhWIfkDVKmOM0ywo3NYQvTYkKhG4FhwYztYDLca9nlLLTdHA4qiIOyEQL1QP KaNcQrlSZCBGVretosrbUpUI1EYHG8CNEcQU1aVGRiJGLrOnHkLNMUGV1WWCBkOTSxqXCgHFGsWWFWEP 8FYVetJQM6TTSjvrExtPBfCRbdGO8IOIWrvzNhImab MCBSDQo+Lf3WWR7bg0WeZZhbCIDwTX7fgt5MLYdOFdWqV5N7cJRnO5L1EXneUa0LPSGbPFVbXuQhKMJZ GOxqMG8CTQ3sqeM2VB4KvEFaFJVbBYZzhAClFYl8P01fwBMpIGavIJ6BOCE+Ivett+Zt4KQOCdQTQtXLHw AfZtSFLCBkArI0BrL7RNx2VmK9YqKE35pDjgnmNrRL yjEX4XEO8xUJSfRRVSFC1MkQKnaZ4zrnEeOzFiFAVUOiTwM17btFKlOBFyBHH9KPFwAi9TEAWdT3Wggr GzwQhqnwQcECIfZHMHJF9FMKyegfVapRBzmZboOL86qDacID2YPu6CIdWgOZ0dfo5BgCKuFc4WXBS9YF 1HUIQcXRRmXCGyIZW2XKGkOsIcQIpbSYBmJBLoJXM6 MMUuFPOcRH1IVaEmIHOfMdk4ONtmYJHzCPTune8NDBGgXRM0IMY0QDGgCENuKTCyKEgsMAXpMQOpMEE9 KCQxPVNhSV7DIvWqUWGmCPF9IEYjKGFeRNQhwv9ILPSjAOZbKgy4JWUrLFIuZFYlUUmuGXSxBKD6OzP5 HPRaAIOkLA6CJwGmYTCuNBc6UJHvWSRfBTYwcv3YEA PhZXItLUMpKNSzQDLbKZWoGNxrJMWaOVIeRzU3LDNfJXNcDU4QWyIpDEKsUMI9IQwtTVApWVObdb1QRK HvUCYrZhv1TiJhIMKjPRXoYKhmRLAfCCM3GZHhOLXkQLLiPI9PMaEoHXGbUUcqWRkqDODyMSFfmn4VGT XhUWNfCZE3CoRoHHVeSGWbFQhnEWRePCZrAcLqZQPt FDFfLW9JXlCmMQXuMaR2IoBsQCQqFBPmol3QHBVgZWZxEGkqBmKwYCChVDFyZGctUAXhPDVoOrgrGHJc FUBuZO5EQcRqWZJrMxK4PDjtGVHjEVMkmu5ZYETjWKUnOjI8KnHiSOIpXPWlJVujCFOwPXO1GXPlPBAk KDMpHH9PFbLjWEFxKuTfBdXvPHUqRIZyfy8IXJMsFB SgSUZsQXHlPHRiAMSbKSncPTIlNWS1WAJyCNRbGMZuMY2QGgTwZHUeOwUpToRtVYOmLRMzly8UZVVmWE JfLhD3EIQgELWkCZLcXLdqQDHtFSN0LzG8XLAbSNQeDO9WGkKoWJWcSfH3PHUxGPZjENLoaa7UTSZdUA WbJiocIQJzJYIdOFSzZCvqFOGzEHD7JMGaVWOnYMOd FA3ZCwYmJNRaEehqNEYcMFVrUAEwwt1LZFFpYCQqPHTtAGMtVXPqZDIcSHdpDCEnBOA3LvO3VFHkHESf SB3CCbSpYGJrQpkmPEGxHWLtTRVaop5IPHSiWBThUSgtAWMuPVGyHJSkKGzqBMTmCQSuVtP0SEFmQTCe QL3XRnCnREGuGWNcIzusFNSwRCUqbx5AJGNiIQD2GB TvWOYuVAXuCDCxTRn1vkYxaXAqQFq0KW3LK6UxfvRvJDPHSy1Ts366GQQ1YBHhUy4TM9aeSs2mKGNzIW ZWAk6URZb5KLEoJ7J7MJTzJOP3YxYcGTA5VHyiHBAaFXNzOHG8LOG+UZluCnNqQzA9R1XwJBW5PZZ0Us o2YIWvKzD6DuEzWqPyYd1jPBBIWh5+DWkwdIJrqTcgDXPFCuGoTlkcGTfuNJCCXs4B ID Date Data Source [id number] 09/28/2020 12:54:00 PM EST [facility]) Name Value Range Interpretation Code Description Data Renee rce(s) Supporting Document(s) glucose, fasting 75 mg/dL 70-100 Glucose, Fasting AT [facility]) blood urea nitrogen 17 mg/dL 7-18 Blood Urea Nitro gen [facility]) creatinine for GFR 0.80 mg/dL 0.55-1.30 Creatinine for GF R [place] ([facility]) sodium level 142 mEq/L 136-145 Sodium Level [place] ([facility]) glomerular filtration rate > 60.0 >60 [place] r Filtration Rate [place] ([facility]) carbon dioxide level 27 mEq/L 21-32 Carbon Dioxide Level [place] ([facility]) chloride level 110 mEq/L 98-107 Above high normal Chloride Level [place] ([facility]) potassium serum 4.6 mEq/L 3.5-5.1 [facility] anion gap 5 mEq/L 8-16 Below low normal Anion Gap [place] ( [facility]) AST/SGOT 37 U/L 7-37 AST/SGOT [facility] ([facility]) calcium level 8.9 mg/dL 8.5-10.1 Calcium Level [facility] ( [facility]) ALT/SGPT 61 U/L 12-78 ALT/SGPT [facility] ([facility]) alkaline phosphatase 109 U/L 45-117 Alkaline Phosph atase [facility] ([facility]) total protein 7.2 gm/dL 6.4-8.2 Total Protein [facility] ( [facility]) bilirubin,total 0.2 mg/dL 0.2-1.0 Bilirubin,total ATHE NA ([facility]) albumin 3.7 gm/dL 3.2-5.2 Albumin [facility] ([facility]) albumin/globulin ratio 1.2-2.2 Below low normal Albumin /globulin Ratio [facility] ([facility]) ID Date Data Source [id number] 09/28/2020 12:54:00 PM EST [facility] ([facility]) Name Value Range Interpretation Code Description Data Renee rce(s) Supporting Document(s) white blood count 6.0 10 4.0-10.0 White Blood Count [facility] ([facility]) red blood count 3.97 10 4.00-5.40 Below low normal Red Blood Coun t [facility] ([facility]) hemoglobin 12.8 g/dL 12.0-15.5 Hemoglobin [facility] ([facility]) hematocrit 40.3 % 36.0-47.0 Hematocrit [facility] ([facility]) mean corpuscular volume 101.5 fL 80.0-96.0 Above high normal Mean Corpuscular Volume [facility] ([facility]) mean corpuscular HGB conc 31.8 g/dL 32.0-36.5 Below low teodoro l Mean Corpuscular HGB Conc [facility] ([facility]) mean corpuscular hemoglobin 32.2 pg 27.0-33.0 Mean Cor puscular Hemoglobin [facility] ([facility]) red cell distribution width 13.2 % 11.5-14.5 Red Cell Distribution Width [facility] ([facility]) platelet count, automated 171 10 150-450 Platelet C ount, Automated [facility] ([facility]) neutrophils % 65.5 % 36.0-66.0 Neutrophils % [facility] ( [facility]) lymph % 24.7 % 24.0-44.0 Lymph % [facility] ([facility]) eos % 1.3 % 0.0-3.0 Eos % [facility] ([facility]) mono % 7.7 % 2.0-8.0 [place] % [facility] ([facility]) baso % 0.5 % 0.0-1.0 Baso % [facility] ([facility]) immature granulocyte % 0.3 % 0-3.0 Immature Gran ulocyte % [facility] ([facility]) neutrophils # 3.9 10 1.5-8.5 Neutrophils # [facility] ( [facility]) nucleated red blood cell % 0.0 % 0-0 Nucleated Red Blood Cell % [facility] ([facility]) lymph # 1.5 10 1.5-5.0 Lymph # [facility] ([facility]) mono # 0.5 10 0.0-0.8 [place] # [facility] ([facility]) eos # 0.1 10 0.0-0.5 Eos # [facility] ([facility]) baso # 0.0 10 0.0-0.2 Baso # [facility] ([facility]) ID Date Data Source [id number] 09/28/2020 12:54:00 PM EST [facility] ([facility]) Name Value Range Interpretation Code Description Data Renee rce(s) Supporting Document(s) vitamin B12 level 307 pg/mL 247-911 Vitamin B12 Level [facility] ([facility]) ID Date Data Source [id number] 09/28/2020 12:54:00 PM EST [facility] ([facility]) Name Value Range Interpretation Code Description Data Renee rce(s) Supporting Document(s) iron (fe) 55 ug/dL 50-170 Iron (Fe) [facility] ([facility]) total iron binding capacity 411 ug/dL 250-450 Total Ir on Binding Capacity [facility] ([facility]) percent saturation 13.4 % 13.2-45.0 Percent Saturatio n [facility] ([facility]) ID Date Data Source [id number] 09/28/2020 12:54:00 PM EST [facility] ([facility]) Name Value Range Interpretation Code Description Data Renee rce(s) Supporting Document(s) triglycerides level 132 mg/dL <150 Triglycerides Le sammi [facility] ([facility]) cholesterol level 157 mg/dL <200 Cholesterol Level [facility] ([facility]) HDL cholesterol 46 mg/dL >40 HDL Cholesterol ATHE NA ([facility]) Cholesterol in LDL [Mass/volume] in Serum or Plasma 85 mg/dL <1 00 LDL Cholesterol [facility] ([facility]) non-HDL-C 111 mg/dL Non-hdl-c [facility] ([facility]) cholesterol risk ratio <5 Cholesterol R isk Ratio [facility] ([facility]) ID Date Data Source [id number] 09/28/2020 12:54:00 PM EST [facility] ([facility]) Name Value Range Interpretation Code Description Data Renee rce(s) Supporting Document(s) ferritin 17 NG/mL 8-252 Ferritin [facility] ([facility]) ID Date Data Source [id number] 09/28/2020 12:54:00 PM EST AZRA ([facility]) Name Value Range Interpretation Code Description Data Renee rce(s) Supporting Document(s) vitamin B1 level whole blood 109.8 nmol/L 66.5-200.0 Vitamin B1 Level Whole Blood [facility] ([facility]) ID Date Data Source [id number] 09/28/2020 12:54:00 PM EST AZRA ([facility]) Name Value Range Interpretation Code Description Data Renee rce(s) Supporting Document(s) folate 7.0 NG/mL >5.4 Folate [facility] ([facility]) ID Date Data Source [id number] 09/28/2020 12:54:00 PM EST AZRA ([facility]) Name Value Range Interpretation Code Description Data Renee rce(s) Supporting Document(s) total 25(oh) vitamin D 10.8 NG/mL 30.0-100.0 Below low normal T otal 25(Oh) Vitamin D [facility] ([facility]) ID Date Data Source [id number] 09/28/2020 12:54:00 PM EST AZRA ([facility]) Name Value Range Interpretation Code Description Data Renee rce(s) Supporting Document(s) blood urea nitrogen 17 mg/dL 7-18 Blood Urea Nitro gen AZ[facility] ([facility]) creatinine for GFR 0.80 mg/dL 0.55-1.30 Creatinine for GF R AZRA ([facility]) glucose, fasting 75 mg/dL 70-100 Glucose, Fasting AT [facility]) potassium serum 4.6 mEq/L 3.5-5.1 Potassium Serum ATH NA ([facility]) sodium level 142 mEq/L 136-145 Sodium Level [facility] ([facility]) glomerular filtration rate > 60.0 >60 [place] Filtration Rate AZRA ([facility]) carbon dioxide level 27 mEq/L 21-32 Carbon Dioxide Level [place] ([facility]) calcium level 8.9 mg/dL 8.5-10.1 Calcium Level AZ[facility] ( [facility]) anion gap 5 mEq/L 8-16 Below low normal Anion Gap AZRA ( [facility]) chloride level 110 mEq/L 98-107 Above high normal Chloride Level AZ[facility] ([facility]) ALT/SGPT 61 U/L 12-78 ALT/SGPT [facility] ([facility]) alkaline phosphatase 109 U/L 45-117 Alkaline Phosph atase [facility] ([facility]) AST/SGOT 37 U/L 7-37 AST/SGOT [facility] ([facility]) albumin 3.7 gm/dL 3.2-5.2 Albumin [facility] ([facility]) albumin/globulin ratio 1.2-2.2 Below low normal Albumin /globulin Ratio [facility] ([facility]) bilirubin,total 0.2 mg/dL 0.2-1.0 Bilirubin,total ATHE NA ([facility]) total protein 7.2 gm/dL 6.4-8.2 Total Protein [facility] ( [facility]) ID Date Data Source [id number] 09/28/2020 12:54:00 PM EST [facility] ([facility]) Name Value Range Interpretation Code Description Data Renee rce(s) Supporting Document(s) white blood count 6.0 10 4.0-10.0 White Blood Count [facility] ([facility]) hemoglobin 12.8 g/dL 12.0-15.5 Hemoglobin [facility] ([facility]) red blood count 3.97 10 4.00-5.40 Below low normal Red Blood Coun t [facility] ([facility]) mean corpuscular volume 101.5 fL 80.0-96.0 Above high normal Mean Corpuscular Volume [facility] ([facility]) hematocrit 40.3 % 36.0-47.0 Hematocrit [facility] ([facility]) mean corpuscular hemoglobin 32.2 pg 27.0-33.0 Mean Cor puscular Hemoglobin [facility] ([facility]) platelet count, automated 171 10 150-450 Platelet C ount, Automated [facility] ([facility]) mean corpuscular HGB conc 31.8 g/dL 32.0-36.5 Below low teodoro l Mean Corpuscular HGB Conc [facility] ([facility]) red cell distribution width 13.2 % 11.5-14.5 Red Cell Distribution Width [facility] ([facility]) lymph % 24.7 % 24.0-44.0 Lymph % [facility] ([facility]) mono % 7.7 % 2.0-8.0 [place] % [facility] ([facility]) neutrophils % 65.5 % 36.0-66.0 Neutrophils % [facility] ( [facility]) eos % 1.3 % 0.0-3.0 Eos % [facility] ([facility]) immature granulocyte % 0.3 % 0-3.0 Immature Gran ulocyte % [facility] ([facility]) baso % 0.5 % 0.0-1.0 Baso % [facility] ([facility]) lymph # 1.5 10 1.5-5.0 Lymph # [facility] ([facility]) nucleated red blood cell % 0.0 % 0-0 Nucleated Red Blood Cell % [facility] ([facility]) neutrophils # 3.9 10 1.5-8.5 Neutrophils # [facility] ( [facility]) baso # 0.0 10 0.0-0.2 Baso # [facility] ([facility]) eos # 0.1 10 0.0-0.5 Eos # [facility] ([facility]) mono # 0.5 10 0.0-0.8 [place] # [facility] ([facility]) ID Date Data Source [id number] 09/28/2020 12:54:00 PM EST AZ[facility] ([facility]) Name Value Range Interpretation Code Description Data Renee rce(s) Supporting Document(s) Cholesterol in LDL [Mass/volume] in Serum or Plasma 85 mg/dL <1 00 LDL Cholesterol [facility] ([facility]) cholesterol level 157 mg/dL <200 Cholesterol Level [facility] ([facility]) triglycerides level 132 mg/dL <150 Triglycerides Le sammi AZRA ([facility]) HDL cholesterol 46 mg/dL >40 HDL Cholesterol ATHE NA ([facility]) non-HDL-C 111 mg/dL Non-hdl-c [facility] ([facility]) cholesterol risk ratio <5 Cholesterol R isk Ratio [facility] ([facility]) ID Date Data Source [id number] 09/28/2020 12:54:00 PM EST AZ[facility] ([facility]) Name Value Range Interpretation Code Description Data Renee rce(s) Supporting Document(s) total iron binding capacity 411 ug/dL 250-450 Total Ir on Binding Capacity [facility] ([facility]) iron (fe) 55 ug/dL 50-170 Iron (Fe) [facility] ([facility]) percent saturation 13.4 % 13.2-45.0 Percent Saturatio n AZRA ([facility]) ID Date Data Source [id number] 09/28/2020 12:54:00 PM EST [facility] ([facility]) Name Value Range Interpretation Code Description Data Renee rce(s) Supporting Document(s) vitamin B12 level 307 pg/mL 247-911 Vitamin B12 Level [facility] ([facility]) ID Date Data Source [id number] 09/28/2020 12:54:00 PM EST [facility] ([facility]) Name Value Range Interpretation Code Description Data Renee rce(s) Supporting Document(s) folate 7.0 NG/mL >5.4 Folate [facility] ([facility]) ID Date Data Source [id number] 09/28/2020 12:54:00 PM EST [facility] ([facility]) Name Value Range Interpretation Code Description Data Rneee rce(s) Supporting Document(s) total 25(oh) vitamin D 10.8 NG/mL 30.0-100.0 Below low normal T otal 25(Oh) Vitamin D [facility] ([facility]) ID Date Data Source [id number] 09/28/2020 12:54:00 PM EST [facility] ([facility]) Name Value Range Interpretation Code Description Data Renee rce(s) Supporting Document(s) ferritin 17 NG/mL 8-252 Ferritin [facility] ([facility]) ID Date Data Source [id number] 09/28/2020 12:54:00 PM EST [facility] ([facility]) Name Value Range Interpretation Code Description Data Renee rce(s) Supporting Document(s) vitamin B1 level whole blood 109.8 nmol/L 66.5-200.0 Vitamin B1 Level Whole Blood [facility] ([facility]) ID Date Data Source [id number] 09/28/2020 12:54:00 PM EST [facility] ([facility]) Name Value Range Interpretation Code Description Data Renee rce(s) Supporting Document(s) white blood count 6.0 10 4.0-10.0 White Blood Count [facility] ([facility]) red blood count 3.97 10 4.00-5.40 Below low normal Red Blood Coun t [place] ([facility]) mean corpuscular hemoglobin 32.2 pg 27.0-33.0 Mean Cor puscular Hemoglobin [facility] ([facility]) mean corpuscular volume 101.5 fL 80.0-96.0 Above high normal Mean Corpuscular Volume [facility] ([facility]) hematocrit 40.3 % 36.0-47.0 Hematocrit [facility] ([facility]) hemoglobin 12.8 g/dL 12.0-15.5 Hemoglobin [place] ([facility]) mean corpuscular HGB conc 31.8 g/dL 32.0-36.5 Below low teodoro l Mean Corpuscular HGB Conc [facility] ([facility]) red cell distribution width 13.2 % 11.5-14.5 Red Cell Distribution Width [facility] ([facility]) platelet count, automated 171 10 150-450 Platelet C ount, Automated [facility] ([facility]) lymph % 24.7 % 24.0-44.0 Lymph % [facility] ([facility]) neutrophils % 65.5 % 36.0-66.0 Neutrophils % [facility] ( [facility]) eos % 1.3 % 0.0-3.0 Eos % [facility] ([facility]) mono % 7.7 % 2.0-8.0 [place] % [facility] ([facility]) nucleated red blood cell % 0.0 % 0-0 Nucleated Red Blood Cell % [facility] ([facility]) baso % 0.5 % 0.0-1.0 Baso % [facility] ([facility]) immature granulocyte % 0.3 % 0-3.0 Immature Gran ulocyte % [facility] ([facility]) eos # 0.1 10 0.0-0.5 Eos # [facility] ([facility]) mono # 0.5 10 0.0-0.8 [place] # [facility] ([facility]) lymph # 1.5 10 1.5-5.0 Lymph # [facility] ([facility]) neutrophils # 3.9 10 1.5-8.5 Neutrophils # [facility] ( [facility]) baso # 0.0 10 0.0-0.2 Baso # [facility] ([facility]) ID Date Data Source [id number] 09/28/2020 12:54:00 PM EST [place] ([facility]) Name Value Range Interpretation Code Description Data Renee rce(s) Supporting Document(s) glucose, fasting 75 mg/dL 70-100 Glucose, Fasting AT [facility]) blood urea nitrogen 17 mg/dL 7-18 Blood Urea Nitro gen [facility] ([facility]) creatinine for GFR 0.80 mg/dL 0.55-1.30 Creatinine for GF R [place] ([facility]) glomerular filtration rate > 60.0 >60 Glomerula r Filtration Rate [facility] ([facility]) potassium serum 4.6 mEq/L 3.5-5.1 Potassium Serum ATHE NA ([facility]) sodium level 142 mEq/L 136-145 Sodium Level [facility] (No [facility]) chloride level 110 mEq/L 98-107 Above high normal Chloride Level [facility] ([facility]) AST/SGOT 37 U/L 7-37 AST/SGOT [place] ([facility]) carbon dioxide level 27 mEq/L 21-32 Carbon Dioxide Level [facility] ([facility]) calcium level 8.9 mg/dL 8.5-10.1 Calcium Level [place] ( [facility]) anion gap 5 mEq/L 8-16 Below low normal Anion Gap [facility] ( [facility]) bilirubin,total 0.2 mg/dL 0.2-1.0 Bilirubin,total ATHE NA ([facility]) ALT/SGPT 61 U/L 12-78 ALT/SGPT [facility] ([facility]) alkaline phosphatase 109 U/L 45-117 Alkaline Phosph atase [facility] ([facility]) albumin 3.7 gm/dL 3.2-5.2 Albumin [facility] ([facility]) albumin/globulin ratio 1.2-2.2 Below low normal Albumin /globulin Ratio [facility] ([facility]) total protein 7.2 gm/dL 6.4-8.2 Total Protein [facility] ( [facility]) ID Date Data Source [id number] 09/28/2020 12:54:00 PM EST [facility] ([facility]) Name Value Range Interpretation Code Description Data Renee rce(s) Supporting Document(s) triglycerides level 132 mg/dL <150 Triglycerides Le sammi [facility] ([facility]) cholesterol level 157 mg/dL <200 Cholesterol Level [facility] ([facility]) Cholesterol in LDL [Mass/volume] in Serum or Plasma 85 mg/dL <1 00 LDL Cholesterol [facility] ([facility]) HDL cholesterol 46 mg/dL >40 HDL Cholesterol ATHE NA ([facility]) non-HDL-C 111 mg/dL Non-hdl-c [facility] ([facility]) cholesterol risk ratio <5 Cholesterol R isk Ratio [facility] ([facility]) ID Date Data Source [id number] 09/28/2020 12:54:00 PM EST [facility] ([facility]) Name Value Range Interpretation Code Description Data Renee rce(s) Supporting Document(s) percent saturation 13.4 % 13.2-45.0 Percent Saturatio n [facility] ([facility]) iron (fe) 55 ug/dL 50-170 Iron (Fe) [facility] ([facility]) total iron binding capacity 411 ug/dL 250-450 Total Ir on Binding Capacity [facility] ([facility]) ID Date Data Source [id number] 09/28/2020 12:54:00 PM EST [facility] ([facility]) Name Value Range Interpretation Code Description Data Renee rce(s) Supporting Document(s) vitamin B12 level 307 pg/mL 247-911 Vitamin B12 Level [facility] ([facility]) ID Date Data Source [id number] 09/28/2020 12:54:00 PM EST [facility] ([facility]) Name Value Range Interpretation Code Description Data Renee rce(s) Supporting Document(s) folate 7.0 NG/mL >5.4 Folate [facility] ([facility]) ID Date Data Source [id number] 09/28/2020 12:54:00 PM EST [facility] ([facility]) Name Value Range Interpretation Code Description Data Renee rce(s) Supporting Document(s) total 25(oh) vitamin D 10.8 NG/mL 30.0-100.0 Below low normal T otal 25(Oh) Vitamin D [facility] ([facility]) ID Date Data Source [id number] 09/28/2020 12:54:00 PM EST [facility] ([facility]) Name Value Range Interpretation Code Description Data Renee rce(s) Supporting Document(s) ferritin 17 NG/mL 8-252 Ferritin [facility] ([facility]) ID Date Data Source [id number] 09/28/2020 12:54:00 PM EST [facility] ([facility]) Name Value Range Interpretation Code Description Data Renee rce(s) Supporting Document(s) vitamin B1 level whole blood 109.8 nmol/L 66.5-200.0 Vitamin B1 Level Whole Blood [facility] ([facility]) ID Date Data Source [id number] 09/28/2020 12:54:00 PM EST [place] ([facility]) Name Value Range Interpretation Code Description Data Renee rce(s) Supporting Document(s) white blood count 6.0 10 4.0-10.0 White Blood Count [facility] ([facility]) red blood count 3.97 10 4.00-5.40 Below low normal Red Blood Coun t [facility] ([facility]) hemoglobin 12.8 g/dL 12.0-15.5 Hemoglobin [facility] ([facility]) hematocrit 40.3 % 36.0-47.0 Hematocrit [place] ([facility]) mean corpuscular hemoglobin 32.2 pg 27.0-33.0 Mean Cor puscular Hemoglobin [place] ([facility]) mean corpuscular volume 101.5 fL 80.0-96.0 Above high normal Mean Corpuscular Volume [place] ([facility]) red cell distribution width 13.2 % 11.5-14.5 Red Cell Distribution Width [place] ([facility]) platelet count, automated 171 10 150-450 Platelet C ount, Automated [place] ([facility]) mean corpuscular HGB conc 31.8 g/dL 32.0-36.5 Below low teodoro l Mean Corpuscular HGB Conc [place] ([facility]) neutrophils % 65.5 % 36.0-66.0 Neutrophils % [place] ( [facility]) lymph % 24.7 % 24.0-44.0 Lymph % [facility] ([facility]) mono % 7.7 % 2.0-8.0 [place] % [facility] ([facility]) eos % 1.3 % 0.0-3.0 Eos % [facility] ([facility]) baso % 0.5 % 0.0-1.0 Baso % [place] ([facility]) immature granulocyte % 0.3 % 0-3.0 Immature Gran ulocyte % [facility] ([facility]) nucleated red blood cell % 0.0 % 0-0 Nucleated Red Blood Cell % [place] ([facility]) neutrophils # 3.9 10 1.5-8.5 Neutrophils # [facility] ( [facility]) lymph # 1.5 10 1.5-5.0 Lymph # [facility] ([facility]) mono # 0.5 10 0.0-0.8 [place] # [facility] ([facility]) eos # 0.1 10 0.0-0.5 Eos # [facility] ([facility]) baso # 0.0 10 0.0-0.2 Baso # [facility] ([facility]) ID Date Data Source [id number] 09/28/2020 12:54:00 PM EST [place] ([facility]) Name Value Range Interpretation Code Description Data Renee rce(s) Supporting Document(s) blood urea nitrogen 17 mg/dL 7-18 Blood Urea Nitro gen [place] ([facility]) glucose, fasting 75 mg/dL 70-100 Glucose, Fasting AT [facility] ([facility]) creatinine for GFR 0.80 mg/dL 0.55-1.30 Creatinine for GF R [place] ([facility]) glomerular filtration rate > 60.0 >60 Glomerula r Filtration Rate [facility] ([facility]) potassium serum 4.6 mEq/L 3.5-5.1 Potassium Serum ATHE NA ([facility]) sodium level 142 mEq/L 136-145 Sodium Level [facility] ([facility]) anion gap 5 mEq/L 8-16 Below low normal Anion Gap [facility] ( [facility]) carbon dioxide level 27 mEq/L 21-32 Carbon Dioxide Level [facility] ([facility]) chloride level 110 mEq/L 98-107 Above high normal Chloride Level [facility] ([facility]) calcium level 8.9 mg/dL 8.5-10.1 Calcium Level [place] ( [facility]) AST/SGOT 37 U/L 7-37 AST/SGOT [facility] ([facility]) alkaline phosphatase 109 U/L 45-117 Alkaline Phosph atase [facility] ([facility]) ALT/SGPT 61 U/L 12-78 ALT/SGPT [facility] ([facility]) bilirubin,total 0.2 mg/dL 0.2-1.0 Bilirubin,total ATHE NA ([facility]) total protein 7.2 gm/dL 6.4-8.2 Total Protein [facility] ( [facility]) albumin 3.7 gm/dL 3.2-5.2 Albumin [facility] ([facility]) albumin/globulin ratio 1.2-2.2 Below low normal Albumin /globulin Ratio [facility] ([facility]) ID Date Data Source [id number] 09/28/2020 12:54:00 PM EST [facility] ([facility]) Name Value Range Interpretation Code Description Data Renee rce(s) Supporting Document(s) triglycerides level 132 mg/dL <150 Triglycerides Le sammi [facility] ([facility]) cholesterol level 157 mg/dL <200 Cholesterol Level [facility] ([facility]) HDL cholesterol 46 mg/dL >40 HDL Cholesterol ATHE NA ([facility]) Cholesterol in LDL [Mass/volume] in Serum or Plasma 85 mg/dL <1 00 LDL Cholesterol [facility] ([facility]) non-HDL-C 111 mg/dL Non-hdl-c [facility] ([facility]) cholesterol risk ratio <5 Cholesterol R isk Ratio [facility] ([facility]) ID Date Data Source [id number] 09/28/2020 12:54:00 PM EST [facility] ([facility]) Name Value Range Interpretation Code Description Data Renee rce(s) Supporting Document(s) iron (fe) 55 ug/dL 50-170 Iron (Fe) [facility] ([facility]) total iron binding capacity 411 ug/dL 250-450 Total Ir on Binding Capacity [facility] ([facility]) percent saturation 13.4 % 13.2-45.0 Percent Saturatio n [facility] ([facility]) ID Date Data Source [id number] 09/28/2020 12:54:00 PM EST [facility] ([facility]) Name Value Range Interpretation Code Description Data Renee rce(s) Supporting Document(s) vitamin B12 level 307 pg/mL 247-911 Vitamin B12 Level [facility] ([facility]) ID Date Data Source [id number] 09/28/2020 12:54:00 PM EST [facility] ([facility]) Name Value Range Interpretation Code Description Data Renee rce(s) Supporting Document(s) folate 7.0 NG/mL >5.4 Folate [facility] ([facility]) ID Date Data Source [id number] 09/28/2020 12:54:00 PM EST [facility] ([facility]) Name Value Range Interpretation Code Description Data Renee rce(s) Supporting Document(s) total 25(oh) vitamin D 10.8 NG/mL 30.0-100.0 Below low normal T otal 25(Oh) Vitamin D [facility] ([facility]) ID Date Data Source [id number] 09/28/2020 12:54:00 PM EST [facility] ([facility]) Name Value Range Interpretation Code Description Data Renee rce(s) Supporting Document(s) ferritin 17 NG/mL 8-252 Ferritin [facility] ([facility]) ID Date Data Source [id number] 09/28/2020 12:54:00 PM EST [facility] ([facility]) Name Value Range Interpretation Code Description Data Renee rce(s) Supporting Document(s) vitamin B1 level whole blood 109.8 nmol/L 66.5-200.0 Vitamin B1 Level Whole Blood [facility] ([facility]) ID Date Data Source [id number] 09/28/2020 12:54:00 PM EST [facility] ([facility]) Name Value Range Interpretation Code Description Data Renee rce(s) Supporting Document(s) white blood count 6.0 10 4.0-10.0 White Blood Count [facility] ([facility]) red blood count 3.97 10 4.00-5.40 Below low normal Red Blood Coun t [facility] ([facility]) hemoglobin 12.8 g/dL 12.0-15.5 Hemoglobin [facility] ([facility]) mean corpuscular hemoglobin 32.2 pg 27.0-33.0 Mean Cor puscular Hemoglobin [facility] ([facility]) hematocrit 40.3 % 36.0-47.0 Hematocrit [facility] ([facility]) mean corpuscular volume 101.5 fL 80.0-96.0 Above high normal Mean Corpuscular Volume [facility] ([facility]) red cell distribution width 13.2 % 11.5-14.5 Red Cell Distribution Width [facility] ([facility]) platelet count, automated 171 10 150-450 Platelet C ount, Automated [facility] ([facility]) mean corpuscular HGB conc 31.8 g/dL 32.0-36.5 Below low teodoro l Mean Corpuscular HGB Conc [facility] ([facility]) lymph % 24.7 % 24.0-44.0 Lymph % [facility] ([facility]) eos % 1.3 % 0.0-3.0 Eos % [place] ([facility]) mono % 7.7 % 2.0-8.0 [place] % [place] ([facility]) neutrophils % 65.5 % 36.0-66.0 Neutrophils % [place] ( [facility]) immature granulocyte % 0.3 % 0-3.0 Immature Gran ulocyte % [place] ([facility]) neutrophils # 3.9 10 1.5-8.5 Neutrophils # [place] ( [facility]) nucleated red blood cell % 0.0 % 0-0 Nucleated Red Blood Cell % [facility] ([facility]) baso % 0.5 % 0.0-1.0 Baso % [place] ([facility]) lymph # 1.5 10 1.5-5.0 Lymph # [place] ([facility]) eos # 0.1 10 0.0-0.5 Eos # [facility] ([facility]) mono # 0.5 10 0.0-0.8 [place] # [facility] ([facility]) baso # 0.0 10 0.0-0.2 Baso # [facility] ([facility]) ID Date Data Source [id number] 09/28/2020 12:54:00 PM EST [place] ([facility]) Name Value Range Interpretation Code Description Data Renee rce(s) Supporting Document(s) glucose, fasting 75 mg/dL 70-100 Glucose, Fasting AT [facility] ([facility]) creatinine for GFR 0.80 mg/dL 0.55-1.30 Creatinine for GF R [place] ([facility]) blood urea nitrogen 17 mg/dL 7-18 Blood Urea Nitro gen [place] ([facility]) glomerular filtration rate > 60.0 >60 Glomerula r Filtration Rate [facility] ([facility]) sodium level 142 mEq/L 136-145 Sodium Level [facility] ([facility]) potassium serum 4.6 mEq/L 3.5-5.1 Potassium Serum ATHE NA ([facility]) chloride level 110 mEq/L 98-107 Above high normal Chloride Level [place] ([facility]) carbon dioxide level 27 mEq/L 21-32 Carbon Dioxide Level [place] ([facility]) calcium level 8.9 mg/dL 8.5-10.1 Calcium Level [facility] ( [facility]) anion gap 5 mEq/L 8-16 Below low normal Anion Gap [facility] ( [facility]) AST/SGOT 37 U/L 7-37 AST/SGOT [facility] ([facility]) ALT/SGPT 61 U/L 12-78 ALT/SGPT [facility] ([facility]) total protein 7.2 gm/dL 6.4-8.2 Total Protein [facility] ( [facility]) albumin 3.7 gm/dL 3.2-5.2 Albumin [facility] ([facility]) bilirubin,total 0.2 mg/dL 0.2-1.0 Bilirubin,total ATHE NA ([facility]) albumin/globulin ratio 1.2-2.2 Below low normal Albumin /globulin Ratio [facility] ([facility]) alkaline phosphatase 109 U/L 45-117 Alkaline Phosph atase [facility] ([facility]) ID Date Data Source [id number] 09/28/2020 12:54:00 PM EST [facility] ([facility]) Name Value Range Interpretation Code Description Data Renee rce(s) Supporting Document(s) folate 7.0 NG/mL >5.4 Folate [facility] ([facility]) ID Date Data Source [id number] 09/28/2020 12:54:00 PM EST [facility] ([facility]) Name Value Range Interpretation Code Description Data Renee rce(s) Supporting Document(s) vitamin B12 level 307 pg/mL 247-911 Vitamin B12 Level [facility] ([facility]) ID Date Data Source [id number] 09/28/2020 12:54:00 PM EST [facility] ([facility]) Name Value Range Interpretation Code Description Data Renee rce(s) Supporting Document(s) triglycerides level 132 mg/dL <150 Triglycerides Le sammi [facility] ([facility]) cholesterol risk ratio <5 Cholesterol R isk Ratio [facility] ([facility]) non-HDL-C 111 mg/dL Non-hdl-c [facility] ([facility]) cholesterol level 157 mg/dL <200 Cholesterol Level [facility] ([facility]) Cholesterol in LDL [Mass/volume] in Serum or Plasma 85 mg/dL <1 00 LDL Cholesterol [facility] ([facility]) HDL cholesterol 46 mg/dL >40 HDL Cholesterol ATHE NA ([facility]) ID Date Data Source [id number] 09/28/2020 12:54:00 PM EST [facility] ([facility]) Name Value Range Interpretation Code Description Data Renee rce(s) Supporting Document(s) iron (fe) 55 ug/dL 50-170 Iron (Fe) [facility] ([facility]) total iron binding capacity 411 ug/dL 250-450 Total Ir on Binding Capacity [facility] ([facility]) percent saturation 13.4 % 13.2-45.0 Percent Saturatio n [facility] ([facility]) ID Date Data Source [id number] 09/28/2020 12:54:00 PM EST [facility] ([facility]) Name Value Range Interpretation Code Description Data Renee rce(s) Supporting Document(s) total 25(oh) vitamin D 10.8 NG/mL 30.0-100.0 Below low normal T otal 25(Oh) Vitamin D [facility] ([facility]) ID Date Data Source [id number] 09/28/2020 12:54:00 PM EST [facility] ([facility]) Name Value Range Interpretation Code Description Data Renee rce(s) Supporting Document(s) ferritin 17 NG/mL 8-252 Ferritin [facility] ([facility]) ID Date Data Source [id number] 09/28/2020 12:54:00 PM EST [facility] ([facility]) Name Value Range Interpretation Code Description Data Renee rce(s) Supporting Document(s) vitamin B1 level whole blood 109.8 nmol/L 66.5-200.0 Vitamin B1 Level Whole Blood [facility] ([facility]) ID Date Data Source [id number] 09/26/2020 06:14:58 PM EST [facility] Name Value Range Interpretation Code Description Data Renee rce(s) Supporting Document(s) Progress Note [facility] [id number]/KNCczESMrq1PrPFvfJAj5HIbiAIUbD1TyXED9jT4oTVN4EKiRQeTwXsOzQlIz [facility] GgAymWJuBpQCMbKpeAUkVvLPtmWjfaqJMuEB7VtXX5CQWoT94xEHKkOHMrB4QpUDWfPUD+On9JWNWrdW JxEZ2SPhlL8U6If6gYOy2ezf9BX4cpKLooXxLwBQKJQkdycHcTO8ij4ygMlECAMQAFiX2/i11yWDrXch Mk1jDNnzZUmRDtkrlv7+iGUhj351f1UqZK96oZc+XP jXv8JWR//HIhyrsy3Hszj+gf5uW1GbkfZjm+mj29Hc1M7X5VQ1K3nnYZ6TOYjfXu5VjtWSe4F029n+Nk +lx9+DD3LEQ6qJ2+g7b4yhZqxO/++R993lhY0sTChD5V6RQM878Mjky1GwTOlg789DiglpB20pCAEWof rDZbBNcdBVwlnCc8cY7Kg4XuIrDltB9yoCwCq1UGpk Jcq4w3ndWz5GeVQZaJA8Kb47YG3XO/I2aDibe+aE0N4OyqL1REGtz8tG0pTM4IwOUXbJPtfir5C9SL1P 29eSmbtmbTCSkBjL69j9Xaj+NodCld837Dq2fudB4G6jJ6Dm4YAiynxP6ob95UHgGaVcaobtKvWLo/W6 LdYjBl1+Hz7B8Q04koeIv/vLy6irj5FSD7frXM/X6a JZ1UtZp4JGv52lVojgXwJR4xMgoxZuEbFDkVXs4jvjgfbGRlc5SWAb4itohBJ+ui+MOHAWK+PS2avl/78s9F [file] J3D2NSbrZBGdREL6MUGrFJIdWy3jTZCFZj5+EIdhoQGgrQdfATVPJdH8VQkjOZopUFUGYi9U ID Date Data Source [id number] 09/25/2020 09:26:00 PM EST [facility] Name Value Range Interpretation Code Description Data Renee rce(s) Supporting Document(s) [facility] COVID-19 RT-PCR DICE TABLE OPERATOR SWAB Not Detected Not Detected [facility] This test has received Emergency Use Aut horization (EUA). We willcontinue to follow federal and state requirements for COVID-19reporting. This test was developed and its performance characteristicsdetermined by [employer]. It has not been cleared orapproved by [...] agencies as required. ID Date Data Source [id number] 09/25/2020 10:37:41 AM EST [facility] Name Value Range Interpretation Code Description Data Renee rce(s) Supporting Document(s) Progress Note [facility] [id number]/QESozODNlj9FbDQksTVy9SXlzWXKoZ2ZdCBF5hH4kXMS0FQtOPsSsYqBxKmL8 [facility] [file] [id number] ID Date Data Source [id number] 09/25/2020 01:57:58 PM [facility] Name Value Range Interpretation Code Description Data Renee rce(s) Supporting Document(s) Color of Urine [facility] Clarity of Urine [facility] Specific gravity of Urine by [employer] automated 1.028 1.003 -1.030 [facility] pH of Urine by Automated test strip 5.0 5.0-8.0 [facility] Protein [Mass/volume] in Urine by Automated test strip Neg [facility] Glucose [Mass/volume] in Urine by Automated test strip Neg [facility] Ketones [Mass/volume] in Urine by Automated test strip Neg [facility] Bilirubin.total [Presence] in Urine by Automated test strip Negative [facility] Hemoglobin [Presence] in Urine by Automated test strip Neg ative [facility] Leukocyte esterase [Presence] in Urine by Automated test strip Negative [facility] Nitrite [Presence] in Urine by Automated test strip [facility] Leukocytes [#/area] in Urine sediment by Automated count 0 /HPF 0 -5 [facility] Erythrocytes [#/area] in Urine sediment by Automated count 0 /HPF 0-3 [facility] ID Date Data Source [id number] 09/27/2020 07:23:01 AM EST [facility] Service Cmnt XXX-Imp : NoneMicroorganism XXX Cult : 40,000 col/mlIndigenous microorganisms. Name Value Range Interpretation Code Description Data Renee rce(s) Supporting Document(s) ID Date Data Source [id number] 09/21/2020 08:00:00 PM EST [facility] Name Value Range Interpretation Code Description Data Renee rce(s) Supporting Document(s) SARS coronavirus 2 RNA [Presence] in Res piratory specimen by HUNG with probe detection NEGATIVE [facility] This lab was [facility] and reported by [facility]. ID Date Data Source [id number] 09/21/2020 12:00:00 AM EST [facility] Name Value Range Interpretation Code Description Data Renee rce(s) Supporting Document(s) Carestart Rapid COVID Antigen Test Negative [facility] This lab was reported by [facility] ID Date Data Source [id number] 09/18/2020 10:10:00 AM EST [facility] [address] [place] [address], [address] [place], [place] [address] [place] [phone] Fax: Bariatric Progress Note : [phone] Signed with Basim Patient: Corey Cortez Acct:[id number] Visit Date: 09/18/20 : [address] Brigitte Carrasco Neurologist Dr. Brigitte Carrasco Addendum Signed By: Patricia Dougherty DICE TABLE OPERATOR Signed Date/Time: 09/19/20 1450 Addendum Co-Sign By: [...] interested in the sleeve with Dr. Conklin. Desk Clerks Supervisor Required: No Is patient in pain?: No [...] last 30 days?: No Mask given: No [facility] Medical History (Updated 09/18/20 @ 10:43 by [...] bypass with Dr. Conklin. Her insurance is [employer] and she will require 6 months of follow-up appointments. Fred reports that she has been obese for greater than 5 years. Her weight today is 258 lb with a BMI of 38.1%. Her health conditions include cardiomyopathy, myoclonic dystrophy, chronic nausea. She has extensive surgical history including cholecystectomy, hemicolectomy 3 years ago, appendectomy, and . She is currently seeing a five piece expansion maker hand for chronic nausea. Fred reports that she [...] her cardiomyopathy. 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 We discussed the lifestyle changes necessary to incorporate with weight loss surgery including diet and exercise. 06/12/2020: Nutritional consultation weight loss management. 06/19/2020: Psychological evaluation and clearance. 07/18/2020: Today's visit was conducted by telemedicine technology. I verified the patient's identity by full name and date of . I verified that the patient was indeed in [facility]. I did give verbal permission to conduct [...] preoperative evaluation. The patient is more than chcf through this evaluation having seen our psychologist [...] I would like to speak with her food safety specialist, Dr. Roldan, and discuss his feelings about [...] possibly even discuss her case with her five piece expansion maker hand. I am concerned that sleeve gastrectomy or [...] both patient and provider were in the [facility]. Corey has met with [...] of support. However she reports that her food safety specialist is supportive of her decision to undergo [...] Code(s): E66.9 - Obesity, unspecified SNOMED Code(s): 752981681754418 Category: Medical Plan: Corey is progressing through [...] G71.11 - Myotonic muscular dystrophy SNOMED Code(s): 717052039 Category: Medical (3) Gastrointestinal dysmotility: Status: Acute Code(s): K92.89 - Other specified diseases of the digestive system SNOMED Code(s): 977574866 Category: Medical (4) H/O right hemicolectomy: Status: Acute Code(s): Z90.49 - Acquired absence of other specified parts of digestive tract SNOMED Code(s): 998986517 Category: Surgical (5) S/P laparoscopic appendectomy: Status: Acute Category: Surgical (6) S/P laparoscopic cholecystectomy: Status: Acute Code(s): Z90.49 - Acquired absence of other specified parts of digestive tract SNOMED Code(s): 607614690 Category: Surgical Problems Did you add a problem (diagnosis code) to the patient?: Yes Medications Patient given information on their new medications: No Coding Level of Care Code 29517 Estab Pt Level 2 Exam Detailed Diagnoses [...] rce(s) Supporting Document(s) ID Date Data Source [id number] 08/24/2020 10:27:00 AM EST [facility] [address], [address] [place], [place] [address] [place] [phone] Fax: Bariatric Nutritional Pre-Op : [phone] Signed Patient: Corey Cortez Acct:[id number] Visit Date: 08/24/20 : 1990 Intake Vital [...] 1800 ml fluids/day Exercise (type/frequency): Playing with [employer] Labs: none Nutrition Intervention Discussed with Patient: [...] obesity due to excess calories SNOMED Code(s): 803699403 Category: Medical (2) Gastrointestinal dysmotility: Status: Acute Code(s): K92.89 - Other specified diseases of the digestive system SNOMED C ode(s): 990102135 Category: Medical Problems Did you add a problem (diagnosis code) to the patient?: Yes Coding Level of Care Code 75756 Med Nutrition Ind Sub 15 Diagnoses Morbid obesity due to excess calories E66.01 Gastrointestinal dysmotility K92.89 Time Spent (min) 30 Signed By:Maria Esther Ellington <<Signature on File>> Signed Date/Time: 08/24/20 1208 Co-Signer: Co-Signed Date/Time: Initializing User: SADI Huston RD 08/24/20 1027 1027 1027 Name Value Range Interpretation Code Description Data Renee rce(s) Supporting Document(s) ID Date Data Source [id number] 07/27/2020 10:31:00 AM EST [facility] [address] [place] [address] [place] [address] Fax: Bariatric Progress Note : [phone] Signed Patient: Corey Cortez Acct:[id number] Visit Date: 07/27/20 : 1990 Intake Vital [...] is interested in the sleeve withDr. Felipe. Desk Clerks Supervisor Required: No Is patient in pain?: No [...] in laparoscopic Manjula-en-Y gastric bypass with Dr. Conkiln. Her insurance is [employer] and she will require 6 months of follow-up appointments. Fred reports that she has been obese for greater than 5 years. Her weight today is 258 lb with a BMI of 38.1%. Her health conditions include cardiomyopathy, myoclonic dystrophy, chronic nausea. She has extensive surgical history including cholecystectomy, hemicolectomy 3 years ago, appendectomy, and . She is currently seeing a five piece expansion maker hand for chronic nausea. Bethreports that she has [...] her cardiomyopathy. 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 We discussed the lifestyle changes necessary to incorporate with weight loss surgery including diet and exercise. 06/12/2020: Nutritional consultation weight loss management. 06/19/2020: Psychological evaluation and clearance. 07/18/2020: Today's visit was conducted by telemedicine technology. I verified the patient's identity by full name and date of . I verified that the patient was indeed in [facility]. Idid give verbal permission to conduct a [...] preoperative evaluation. The patient is more than chcf through this evaluation having seen our psychologist [...] I would like to speak with her food safety specialist, Dr. Roldan, and discuss his feelings about [...] possibly even discuss her case with her five piece expansion maker hand. I am concerned that sleeve gastrectomy or [...] both patient and provider were in the [facility]. Corey has met with [...] of support. However she reports that her food safety specialist is supportive of her decision to undergo [...] obesity due to excess calories SNOMED Code(s): 027593133 Category: Medical Plan: Corey is being seen today for her 4th visit. She is pursuing bariatric surgery with Dr. Conklin. She is interested in sleeve gastrectomy. She is having difficulty obtaining letter support from her primary care provider. She is wondering if she can ask her food safety specialist for letter of support. I will discuss this with Dr. Conklin. She was instructed to continue taking her vitamin supplements. She was instructed to continue following that nutritional guidelines outlined by our dietitian. She was instructed to make her next appointment in 1 month. (2) Cardiomyopathy: Status: Acute Code(s): I42.9 - Cardiomyopathy, unspecified SNOMED Code(s): 89332358 Category: Medical (3) Myotonic dystrophy: Status: Acute Code(s): G71.11 - Myotonic muscular dystrophy SNOMED Code(s): 235695836 Category: Medical (4) S/P laparoscopic cholecystectomy: Status: Acute Code(s): Z90.49 - Acquired absence of other specified parts of digestive tract SNOMED Code(s): 283215187 Category: Surgical (5) H/O right hemicolectomy: Status: Acute Code(s): Z90.49 - Acquired absence of other specified parts of digestive tract SNOMED Code(s): 103343320 Category: Surgical (6) S/P laparoscopic appendectomy: Status: Acute Category: Surgical (7) H/O: hysterectomy: Status: Acute Code(s): Z90.710 - Acquired absence of both cervix and uterus SNOMED Code(s): 987845114 Category: Surgical Problems Did you add a problem (diagnosis code) to the patient?: Yes Medications Patient given information on their new medications: No Coding Level of Care Code 85840 Estab Pt Level 1 Exam Detailed Diagnoses [...] rce(s) Supporting Document(s) ID Date Data Source [id number] 07/18/2020 03:00:00 PM EST [facility] [address] [facility], [address] [place], [place] [address] [place] [phone] Fax: Bariatric Progress Note : [phone] Signed Patient: Corey Cortez Acct:[id number] Visit Date: 07/18/20 : 1990 Intake Vital [...] interested in the sleeve with Dr. Conklin. Desk Clerks Supervisor Required: No Is patient in pain?: No [...] bypass with Dr. Conklin. Her insurance is [employer] and she will require 6 months of follow-up appointments. Fred reports that she has been obese for greater than 5 years. Her weight today is 258 lb with a BMI of 38.1%. Her health conditions include cardiomyopathy, myoclonic dystrophy, chronic nausea. She has extensive surgical history including cholecystectomy, hemicolectomy 3 years ago, appendectomy, and C- section. She is currently seeing a five piece expansion maker hand for chronic nausea. Bethreports that she has [...] her cardiomyopathy. 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 We discussed the lifestyle changes necessary to incorporate with weight loss surgery including diet and exercise. 06/12/2020: Nutritional consultation weight loss management. 06/19/2020: Psychological evaluation and clearance. 07/18/2020: Today's visit was conducted by telemedicine technology. I verified the patient's identity by full name and date of . I verified that the patient was indeed in [facility]. I did give verbal permission to conduct [...] preoperative evaluation. The patient is more than chcf through this evaluation having seen our psychologist [...] I would like to speak with her food safety specialist, Dr. Roldan, and discuss his feelings about [...] possibly even discuss her case with her five piece expansion maker hand. I am concerned that sleeve gastrectomy or [...] obesity due to excess calories SNOMED Code(s): 543619477 Category: Medical Patient Instructions: This patient has [...] I would like to see if her food safety specialist feels that weight loss would be beneficial [...] diseases of the digestive system SNOMED Code(s): 333873280 Category: Medical (3) Myotonic dystrophy: Status: Acute Code(s): G71.11 - Myotonic muscular dystrophy SNOMED Code(s): 218063618 Category: Medical (4) Cardiomyopathy: Status: Acute Code(s): I42.9 - Cardiomyopathy, unspecified SNOMED Code(s): 27090985 Category: Medical Problems Did you add a problem (diagnosis code) to the patient?: Yes Medications Patient given information on their new medications: No Coding Level of Care Code 78552 Estab Pt Level 3 Diagnoses Morbid obesity due to excess calories E66.01 Gastrointestinal dysmotility K92.89 Myotonic dystrophy G71.11 Cardiomyopathy I42.9 Signed By:Sergio Conklin MD <<Signature on File>> Signed Date/Time: 07/18/201650 Co-Signer: Co-Signed Date/Time: Initializing User: Sergio Conklin MD 07/18/20 1500 1500 1500 Name Value Range Interpretation Code Description Data Renee rce(s) Supporting Document(s) ID Date Data Source [id number] 07/15/2020 07:08:00 PM EST [facility] 1 OrderSheet [facility] Emergency Department [address] [place] [address] Phone #: ext- [phone] 07/15/2020 19:08 Patient: COREY CORTEZ Sex: F [...] mg 19:43 07/15/2020 21:01 Bessy, 2 OrderSheet [facility] Emergency Department [address] [place] [address] Phone #: ext- [phone] 07/15/2020 19:08 Patient: COREY CORTEZ Sex: F [...] rce(s) Supporting Document(s) ID Date Data Source [id number] 07/15/2020 07:08:00 PM [facility] 1 Medication Reconciliation Report [facility] Emergency Department [address] [place] [address] Phone #: ext- [phone] 07/15/2020 19:08 Patient: [...] rce(s) Supporting Document(s) ID Date Data Source [id number] 07/15/2020 07:08:00 PM [facility] 1 Medication Administration Record [facility] Emergency Department [address] [place] [address] Phone #: ext- [phone] 07/15/2020 19:08 Patient: COREY CORTEZ Sex: F : 1990 Age: 29yWeight: 113.3 kgHeight/Length: 69 inBMI: 36.9ALLERGIES: Apririn causes trouble breathing, Reglan causes syncope, Tramadol causes seizures Date/Time Medication Administered Medication OrderedStart IV NS IV NS : Bolus 1000 mL, then 61661:10 07/15/2020 Dose: IV Fluids mL/hr (can be titrated Hernandez Salas R.N. Rate: 1000 mL/hr over 1 hour(s) additional physician instruction)---- Dispensed: 1000 mL bagStop Site: #1 right AC21:28 07/15/2020Hernandez Doherty R.NKariStart IV NS IV NS : Bolus 1000 mL, then 34214:28 07/15/2020 Dose: IV Fluids mL/hr (can be titrated Hernandez Salas R.N. Rate: 125 mL/hr over 8 hour(s) additional physician instruction)---- Dispensed: 1000 mL bagStop Site: #1 right AC21:52 07/15/2020Hernandez Doherty RKariNKariStart ofirmev * Ofirmev IV 1000 mg (NOW x1,20:46 07/15/2020 Dose: 1 gram * IVPB Infuse over 15 minutes)Hernandez Doherty RKariNKrai----Stop21:02 07/15/2020Hernandez Doherty RKariNKari Name Value Range Interpretation Code Description Data Renee rce(s) Supporting Document(s) ID Date Data Source [id number] 07/15/2020 07:08:00 PM EST [facility] 1 General Instructions [facility] Emergency Department [address] [place] [address] Phone #: ext [phone] 07/15/2020 19:08 Patient: COREY CORTEZ Sex: F : 1990 Age: 29yAcute right upper quadrant abdominal pain. (Unclear etiology).INSTRUCTIONSDrink plenty of fluids.(Consider outpatient COVID testing at an Urgent Care or [facility] if a more rapid return of results isdesired.).Warnings: Further evaluation is necessary.Follow-up:Follow up with a five piece expansion maker hand if not better. Call for an appointment. Reason for referral: evaluation,treatment and Upper abdominal pain - consider endoscopy / colonoscopy. Follow up with your doctor intwo days if not better. Call for an appointment. Reason for referral: evaluation, treatment and RUQabdominal pain - Unclear etiology.Understanding of the discharge instructions verbalized by patient. ADDITIONAL INFORMATIONUnknown Causes of Abdominal Pain (Female) 2 General Instructions [facility] Emergency Department [address] [place] [address] Phone #: ext- [phone] 07/15/2020 19:08 Patient: [...] for taking these medicines. 3 General Instructions [facility] Emergency Department [address] [place] [address] Phone #: ext- [phone] 07/15/2020 19:08 Patient: COREY CORTEZ Sex: F : 1990 Age: 29[facility] Rest as much as you can [...] to improve in thenext 24 hours.Call 911Call [phone] if any of these occur: Trouble breathing Confusion Fainting or loss of consciousness Rapid heart rate 4 General Instructions [facility] Emergency Department [address] [place] [address] Phone #: dos- [phone] 07/15/2020 19:08 Patient: COREY CORTEZ Sex: F [...] or water and you are getting dehydrated [id number] [employer]. [address] [place] [address]. All rights reserved. This information is not intended as asubstitute for professional medical care. Always follow your healthcare professional's instructions. You have been given the following additional information: Abdominal Pain, Unknown Cause, (Female)(Electronically signed by Paulino Castellanos, Physician 07/15/2020 22:58) Name Value Range Interpretation Code Description Data Renee rce(s) Supporting Document(s) ID Date Data Source [id number] 07/15/2020 07:08:00 PM EST [facility] 1 Clinical Report - Nurses [facility] Emergency Department [address] [place] [address] Phone #: [phone] ggv- [phone] 07/15/2020 19:08 Patient: COREY CORTEZ Sex: F : 1990 Age: 29yTRIAGEArrived by private vehicle. Historian: patient.Triage time: 19:15 07/15/2020. Acuity: LEVEL 3.Chief Complaint: ABDOMINAL PAIN.Onset was gradual. Symptoms are constant and still present (3 days ago). 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 SEPSIS SCREEN NEGATIVE. [...] Sepulveda RNSyncope. 2 Clinical Report - Nurses [facility] Emergency Department [address] [place] [address] Phone #: ext- [phone] 07/15/2020 19:08 Patient: [...] Sepulveda RN. 3 Clinical Report - Nurses [facility] Emergency Department [address] [place] [address] Phone #: ext- [phone] 07/15/2020 19:08 Patient: COREY CORTEZ Sex: F : 1990 Age: 29y Assessment The patient states feels the same. --19:07/15/20 Watson Sepulveda RN.PHYSICAL [id number] 07/15/20. Ambulatory to room. Patient gowned.GENERAL / [...] --20:10 07/15/20 Hernandez Doherty R.N. 20:46 07/15/2020 [facility] * IVPB 1 gram --21:01 07/15/20 Hernandez Doherty R.N. 21:02 07/15/2020 [facility] IVPB Discontinued: bag #1 completed. Total amount [...] via IV 4 Clinical Report - Nurses [facility] Emergency Department [address] [place] [address] Phone #: ext- [phone] 07/15/2020 19:08 Patient: COREY CORTEZ Sex: F [...] medication(s). Treatments reviewed. Reviewed referral to a five piece expansion maker hand and primary care physician. Patient verbalized understanding. Written instructions provided in [place] Islander. The patient was discharged by the [facility]. She was discharged home. She left ambulatory and via taxi. --22:07/15/20 Hernandez Doherty R.N. 22:01 07/15/2020 Site #1 removed upon discharge. Catheter intact. Bandage applied. --22:07/15/20 Hernandez Doherty R.N. 22:00 07/15/20. BP: 91/57. MAP: 68. HR: 61. RR: 16. O2 saturation: 96%. Temp: 97.7 F. Pain level now: 0/10. --22:02 07/15/20 Hernandez Doherty R.N.Locked/Released at 07/15/2020 22:10 by Hernandez Doherty R.N. Name Value Range Interpretation Code Description Data Renee rce(s) Supporting Document(s) ID Date Data Source [id number] 07/15/2020 07:08:00 PM EST [facility] 1 Clinical Report - Physicians/Mid Levels [facility] Emergency Department [address] [place] [address] Phone #: ext- [phone] 07/15/2020 19:08 Patient: [...] Hemicolectomy 2 Clinical Report - Physicians/Mid Levels [facility] Emergency Department [address] [place] [address] Phone #: ext- [phone] 07/15/2020 19:08 Patient: COREY CORTEZ Sex: F [...] room air.Temp: 98.8 F. Pain level now: 610. Have been reviewed and appear to be [...] 450) 3 Clinical Report - Physicians/Mid Levels [facility] Emergency Department [address] [place] [address] Phone #: ext- [phone] 07/15/2020 19:08 Patient: [...] Male GFR Interprentation 20-49 yrs >60 mL/min [place]05-74 yrs >56 mL/min Normal 60-69 yrs >49 mL/min Normal 70-79yrs>42 mL/min Normal 80 and above >35 mL/min Normal Female GFRInterpretation 20-39 yrs >60 mL/min Normal 40-49 yrs >58 mL/minNormal 50-59 yrs >51 mL/min Normal 60-69 yrs >45 mL/min Wezeuw15-60 yrs >39 mL/min Normal 80 and above >32 mL/min NormalLipase: (DEON: 07/15/2020 20:45) ( MsgRcvd 07/15/2020 21:24) Final results Test Result Flag Units (Reference) LIPASE 19 U/L (13 - 60)CT ABD PEL W/O Oral W/O IV Contrast: (DEON: 07/15/2020 19:43) ( MsgRcvd 07/15/2020 21:36)Final resultsCT ABD 4 Clinical Report - Physicians/Mid Levels [facility] Emergency Department [address] [place] [address] Phone #: ext- [phone] 07/15/2020 19:08 Patient: COREY CORTEZ Sex: F : 1990 Age: 29yReason(s): Abdominal PainTRANSPORTATION: WC IV? IV?(Yes) O2? Oxygen?(No) Ro Exam CT ABD //T// PELV W/O ORAL W/[place] [address] ---------NAME--------- NUMBER SEX AGE ADMIT DISC. XRAY# F/C TYPE ELI Long [id number] F 29 07/15/20 [id number] X6B E/R DATE OF : 1990 M/R# [id number] #: [id number] TR-03 LOCATION: EMERGENCY DEPT TRANSCRIBED: 07/15/20 21:[address] ABD //T// PELV W/O ORAL W/[place] [id number] COMPLETED:07/15/20 21:36 marsha 981 Reason(s): Abdominal Pain [...] abscess. 5 Clinical Report - Physicians/Mid Levels [facility] Emergency Department [address] [place] [address] Phone #: ext- [phone] 07/15/2020 19:08 Patient: [...] is necessary. Follow-up: Follow up with a five piece expansion maker hand if not better. Call for an appointment. Reason for referral: evaluation, 6 Clinical Report - Physicians/Mid Levels [facility] Emergency Department [address] [place] [address] Phone #: ext- [phone] 07/15/2020 19:08 Patient: [...] rce(s) Supporting Document(s) ID Date Data Source [id number] 07/15/2020 09:36:00 [place] [address] ---------NAME--------- NUMBER SEX AGE ADMIT DISC. XRAY# F/C TYPE ELI Long [id number] F 29 07/15/20 [id number] X6B E/R DATE OF : 1990 M/R# [id number] #: [id number] TR-03 LOCATION: EMERGENCY DEPT TRANSCRIBED: 07/15/20 21:[address] ABD //T// PELV W/[place] ORAL W/[place] [id number] COMPLETED:07/15/20 21:36 marsha 981 Reason(s): Abdominal Pain [...] Name Value Range Interpretation Code Description Data [facility] rce(s) Supporting Document(s) ID Date Data Source [id number] 07/15/2020 09:24:00 PM [facility] Name Value Range Interpretation Code Description Data Renee rce(s) Supporting Document(s) Lipase [Enzymatic activity/volume] in Serum or Plasma 19 U/L 13 - 60 [facility] ID Date Data Source [id number] 07/15/2020 09:27:00 PM [facility] Name Value Range Interpretation Code Description Data [facility](s) Supporting Document(s) COMPREHENSIVE METABOLIC PANEL [facility] COMPREHENSIVE METABOLIC PANEL Sodium [Moles/volume] in Serum or Plasma 141 mEq/L 134 - 153 [facility] Potassium [Moles/volume] in Serum or Plasma 4.1 mEq/L 3.6 - 5.0 [facility] Chloride [Moles/volume] in Serum or Plasma 105 mEq/L 98 - 107 [facility] Carbon dioxide, total [Moles/volume] in Serum or Plasma 27 MEQ/L 22 - 30 [facility] Glucose [Mass/volume] in Serum or Plasma 75 MG/DL 65 - 110 [facility] BUN 10 MG/DL 7 - 21 [facility] Creatinine [Mass/volume] in Serum or Plasma 0.6 MG/DL 0.7 - 1.5 L [facility] BUN/CREAT 17 8 - 27 [facility] Protein [Mass/volume] in Serum or Plasma 6.6 G/DL 6.3 - 8.2 [facility] Albumin [Mass/volume] in Serum or Plasma 4.2 G/DL 3.9 - 5.0 [facility] Globulin [Mass/volume] in Serum by calculation 2.4 GM/DL 2.4 - 3.2 [facility] A/G RATIO 1.8 0.8 - 2.0 [facility] Calcium [Mass/volume] in Serum or Plasma 9.4 MG/DL 8.4 - 10.2 [facility] Bilirubin.total [Mass/volume] in Serum or Plasma <0.7 MG/DL 0.2 - 1.3 [facility] Alkaline phosphatase [Enzymatic activity/volume] in Serum or Plasma 99 U/L 38 - 126 [facility] Aspartate aminotransferase [Enzymatic activity/volume] in Serum or Plasma 51 U/L 5 - 40 H [facility] Alanine aminotransferase [Enzymatic activity/volume] in Seru m or Plasma 54 U/L 7 - 56 [facility] Anion gap 3 in Serum or Plasma 9.0 mmol/L 8.0 - 16.0 [facility] AGE 29 yrs [facility] NON-AA GFR >60 mL/min [facility] AFR AMER GFR >60 mL/min [facility] Male GFR In terprentation 20-49 [...] >32 mL/min Normal ID Date Data Source [id number] 07/15/2020 09:05:00 PM EST [facility] Name Value Range Interpretation Code Description Data Renee rce(s) Supporting Document(s) CBC W/AUTOMATED DIFF [facility] COMPLETE BLOOD COUNT Leukocytes [#/volume] in Blood by Automated count 4.9 10^3/uL 4.2 - 1 1.0 [facility] Erythrocytes [#/volume] in Blood by Automated count 4.88 10^6/uL 4. 20 - 5.40 [facility] Hemoglobin [Mass/volume] in Blood 15.9 g/dL 12.0 - 16.0 [facility] Hematocrit [Volume Fraction] of Blood by Automated count 48.4 % 3 7.0 - 47.0 H [facility] Erythrocyte mean corpuscular volume [Entitic volume] by Auto mated count 99.2 fL 81.0 - 101 [facility] Erythrocyte mean corpuscular hemoglobin [Entitic mass] by Automated count 32.6 pg 27.0 - 34.0 [facility] Erythrocyte mean corpuscular hemoglobin concentration [Mass/volume] by Automated count 32.9 g/dL 31.0 - 36.0 [facility] Erythrocyte distribution width [Ratio] by Automated count 12.8 % 11.5 - 14.5 [facility] Platelets [#/volume] in Blood by Automated count 154 10^3/uL 150 - 45 0 [facility] Platelet mean volume [Entitic volume] in Blood by Automated count 11.5 fL 7.4 - 10.4 H [facility] Neutrophils/100 leukocytes in Blood by Automated count 60.8 % 37. 0 - 80.0 [facility] Lymphocytes/100 leukocytes in Blood by Manual count 30.3 % 25.0 - 40.0 [facility] Monocytes/100 leukocytes in Blood by Automated count 6.5 % 3.0 - 8.0 [facility] Eosinophils/100 leukocytes in Blood by Automated count 1.2 % 0.0 - 7.0 [facility] Basophils/100 leukocytes in Blood by Automated count 0.8 % 0.0 - 2.5 [facility] %IG 0.4 % 0.0 - 0.0 H [facility] %NRBC 0.0 % 0.0 - 0.0 [facility] Neutrophils [#/volume] in Blood by Automated count 2.97 10^3/uL 2.00 - 6.90 [facility] Lymphocytes [#/volume] in Blood by Automated count 1.48 10^3/uL 0.60 - 3.40 [facility] Monocytes [#/volume] in Blood by Automated count 0.32 10^3/uL 0.00 - 0.90 [facility] Eosinophils [#/volume] in Blood by Automated count 0.06 10^3/uL 0.00 - 0.70 [facility] Basophils [#/volume] in Blood by Automated count 0.04 10^3/uL 0.00 - 0.20 [facility] #IG 0.02 10^3/uL 0.00 - 0.10 [facility] #NRBC 0.00 10^3/uL 0.00 - 0.00 [facility] MANUAL DIFF NOT INDICATED [facility] RBC MORPH NOT INDICATED [facility] ID Date Data Source [id number] 06/20/2020 10:22:29 AM [facility] Name Value Range Interpretation Code Description Data Renee e(s) Supporting Document(s) [facility] IMQHCn0qKeCBAmZbu8MhCuJwPVHfWC6obib8N1W7tBCrD2GexUIle3hwL9GsT2NsHFYeSHGAIM0LiATi jb2 [file] VFT0Y= ID Date Data Source [id number] 06/19/2020 09:28:01 AM EST [facility] Name Value Range Interpretation Code Description Data Renee rce(s) Supporting Document(s) Progress Note [facility] VTWETr0sDhFMRnVk47/LCTtjTEQsf9TfWEtpIGs1RVavBTVbH2VsLHS6jL6bRHT5KCyQKuRwBfSpOpNb lbm [file] construction project coordinator+q4l4RWarGvG9ILCZxGWlm5ouX7ZQw5GraJWyWu [file] AgICAgICAgICAgICAgICAgICAgICAgICAgICAgICAgICAgICAgICAgICAgICAgICAgICAgICAgICAgIC AgICAgICAgICAgICAgICAgICANCiAgICAgICAgICAgICAgICAgICAgICAgICAgICAgICAgICAgICAgIC AgICAgICAgICAgICAgICAgICAgICAgICAgICAgICAg ICAgICAgICAgICAgICAgICAgICAgICAgICAgICANCiAgICAgICAgICAgICAgICAgICAgICAgICAgICAg ICAgICAgICAgICAgICAgICAgICAgICAgICAgICAgICAgICAgICAgICAgICAgICAgICAgICAgICAgICAg ICAgICAgICAgICANCiAgICAgICAgICAgICAgICAgIC AgICAgICAgICAgICAgICAgICAgICAgICAgICAgICAgICAgICAgICAgICAgICAgICAgICAgICAgICAgIC AgICAgICAgICAgICAgICAgICAgICANCiAgICAgICAgICAgICAgICAgICAgICAgICAgICAgICAgICAgIC AgICAgICAgICAgICAgICAgICAgICAgICAgICAgICAg ICAgICAgICAgICAgICAgICAgICAgICAgICAgICAgICANCiAgICAgICAgICAgICAgICAgICAgICAgICAg ICAgICAgICAgICAgICAgICAgICAgICAgICAgICAgICAgICAgICAgICAgICAgICAgICAgICAgICAgICAg ICAgICAgICAgICAgICANCiAgICAgICAgICAgICAgIC AgICAgICAgICAgICAgICAgICAgICAgICAgICAgICAgICAgICAgICAgICAgICAgICAgICAgICAgICAgIC AgICAgICAgICAgICAgICAgICAgICAgICANCiAgICAgICAgICAgICAgICAgICAgICAgICAgICAgICAgIC AgICAgICAgICAgICAgICAgICAgICAgICAgICAgICAg ICAgICAgICAgICAgICAgICAgICAgICAgICAgICAgICAgICANCiAgICAgICAgICAgICAgICAgICAgICAg ICAgICAgICAgICAgICAgICAgICAgICAgICAgICAgICAgICAgICAgICAgICAgICAgICAgICAgICAgICAg ICAgICAgICAgICAgICAgICANCiAgICAgICAgICAgIC AgICAgICAgICAgICAgICAgICAgICAgICAgICAgICAgICAgICAgICAgICAgICAgICAgICAgICAgICAgIC AgICAgICAgICAgICAgICAgICAgICAgICAgICANCjw/sTMfO2vqoADxgzC9R3xyTj3KKw6BWP3xz6AsGW CeSFqzciWwRxwFFfJkAQIyAloUQkr8HZjbLD9EpDDr U3CdU4HpEXgjZJ0BUIPzVNQqhXJaJDEkRFMqKtN5EMVeBCnpGG8HjNHgXFwwRAQpTAUqLfJfBTPkLSQv SSQwSOXyULNATFEoPEUjPmItYOInTDLtZS4OUKExH264oqYfMj9UOr0THgMfWM5wsv2BQiWbCEKjZwpO Mwa7TZuwQM8PpFSuoEHhSkTqFZBWPnEfM5vsh5RjKm KhKUAOKXudAM0Xv5XzzTQeQKu+Ri6XKJ7zb5SfIDmnPsIeWA9czg8QDPbWKmUsU9HonVmpOKXyf1fvHM ZaLY3lpXQbBRV0MKBhWnXynWYBIMGwgxbfyxSsCC4ACIB9URUaCbLtReWqWpNsUUQ6BFSdPI6tISntRY 7JLDE1DBhuKIRcLYNyK1oJQzFcTHEoTWLbgRswXQ6L AnGuD4AwbnIwwLWtTUCqCZELAx0+CZvgnyPaLsiIRmC4OZIpz5AeJWc4PI9CMGLiDCptUI7WWNNlfY4e HNhmQT5UAlVvFkQtQIJWCgWgT23euVQrIMc0A1OpPoLcZKIoCdgySMXzCWmrWiKdYLGwTcFhUFifRC5+ ID4+DKnzQH2DRLooejMjCQWjLa5TIZHwCWElCB7zJD MoHHOlU5Z3fUeoPDCEJcDaK0jpwttpSY7eNGBgW858kYhjdpOdCFR6SRClQr3ATPJyJCF6KGRwbDKmRt BwKJXQJTwyXC0HxRGzDCU2aQ3nVGecWPMvWDJlA1xBYeDldJcwTJ95jJyqzuGtcXDiTHs+Fl0VFG4dt3 LaIQf8oaEzCWdoNUH1YDniHTSkSCGqRSFjSPQ5BEU5 ZZAHEcCwYUGcMURrRHxmLKXpIJLfve2LEBCiKBGfVsBwOaWbJOSqQKDpFKusWRGoIKM3ALJ6XNVtRAUl XM8JEdSeTXOuEBUtKCjyRRKpWXFkji1FUYEsNBCtOsf6ZLEjOYUcLTPuZDenDTEiWXF5UYG6JZApEIBc SY0TMrAnADVgTRzpCSHsEYJyPVGymm8OHUSvZWFcRz U5AsEdSVCqGFAkYYcfDFUqKTTpGSW6VLStGSSjPG7EOcDlUZKcGEH5CnSiIZLgZDRoky5LWAGvYTSqCu D4MENeEBOwPTFyYKhrXWEwZVFwPYX3RCLzSQEdWO8JWsIjDHDeGYthAYLdGSNnAQLimm4LIXOoKLBeGr LyUdCzCKRcARWlDXbzVURiGAE4KRH3XEDtYYKjCX1R DwWlFTTiRLy1NuNjAOSrUKBdld1SCVFjAROtOFB9LDOuDRVeDJEwUYzhXCEtZYItLkj6SKDxKDOtSM2V BxXfNLAcFzC1QtKzADGoZSIbfk0IUZDvXLUrHFbcAJEyCFPvMDHxLPknNMSiRKXwGAViSPMgPGFeIT8C KxMvSFIiXvLnBIvlSCQpWUSmpg6FPFGvIYQtXny2OX VaNFBlMSOtVMroAPLpMCJ0ISp3YWZcNAUaUF3NChFhCDGrIuGkZTUkWQKdUYQuiy2NXCWyODErESViKw MlHKDwNKBuTEbfRVAwGUX6Jli3GGRjKLEuQF5GQgSdJRVzWhM9XwBlRQQuZACtdc0VYOOoIRRxVTeaAQ MtEMJbVTAuBPjuGTKeQXG0OOm4DPNcZOCnBS7VTcMe UREgMoL2GvemBAUcUDGzql9JNCWmSRKqJiRjVjNhXOAfTCPcFPprHLAnSUI6Nxz1VIFwWBVvUX9FSvUf LVCfZzf0SrfvYCUwGAMswf5CTZFzIGLeRTO1CDTgXZRbMELoLRjcFKUgJDD8RvG2MTUfGJRqDX2DJbAy VFQnNpf3PsWePEEiYMPxsr0JsFZxeEpwar4HADhLIb 9YeUlfPLD9LWctEk4bfWKdBnIrLXPBLa9TlyNtZGNqWSHUCIzrBDJiEWV9Gwh8T7CzTkYhGGsbN5DjQ5 VuZ6RpBhclQSvfRJBqBgP7SLWaPRs6WuHxH6KlFIC3BtO4UwGhIwYpCRF3FAEvDUQ+UA2hVDg+Pg0Kc3 ErzaT1kyMoMHbfNFF5AO2UQHMUN8BJFo== ID Date Data Source [id number] 06/12/2020 09:53:00 AM EST [facility] [address] [place] [address]. [address] [place] [address] Fax: Bariatric Initial Nutrition : [phone] Signed Patient: Corey Cortez Acct:[id number] Visit Date: 06/12/20 : 1990 Intake Vital [...] Labs: none Estimated needs Estimated energy needs: WHQ=6088 X 1.2 AF X 1.0 IF = [...] obesity due to excess calories SNOMED Code(s): 271748222 Category: Medical (2) Gastrointestinal dysmotility: Status: Acute Code(s): K92.89 - Other specified diseases of the digestive system SNOMED Code(s): 996679831 Category: Medical (3) Cardiomyopathy: Status: Acute Code(s): I42.9 - Cardiomyopathy, unspecified SNOMED Code(s): 43555402 Category: Medical Problems Did you add a problem (diagnosis code) to the patient?: Yes Coding Level of Care Code 67929 Nutrition Individual 15 Diagnoses Morbid obesity due to excess calories E66.01 Gastrointestinal dysmotility K92.89 Cardiomyopathy I42.9 Time Spent (min) 45 Signed By:Maria Esther Ellington <<Signature on File>> Signed Date/Time: 06/12/20 1244 Co-Signer: Co-Signed Date/Time: Initializing User: SADI Huston RD 06/12/20 0953 Name Value Range Interpretation Code Description Data Renee rce(s) Supporting Document(s) ID Date Data Source [id number] 05/20/2020 07:34:00 PM EST [facility] 1 OrderSheet [facility] Emergency Department [address] [place] [address] Phone #: ext- [phone] 05/20/2020 19:21 Patient: [...] Description Priority Entered Acknowledged Initialed 2 OrderSheet [facility] Emergency Department [address] [place] [address] Phone #: ext- [phone] 05/20/2020 19:21 Patient: COREY CORTEZ Sex: F [...] rce(s) Supporting Document(s) ID Date Data Source [id number] 05/20/2020 07:34:00 PM EST [facility] 1 Medication Reconciliation Report [facility] Emergency Department [address] [place] [address] Phone #: ext- [phone] 05/20/2020 19:21 Patient: [...] for UTI. Dispense 14 capsule. Refills:0. Substitution permitted.[facility] [facility] ; [place] [address]. FaxNumber: .Pyridium 200 mg tablet Take 1 tablet every eight hours for 2 days -- for cystitis / bladder spasm.Dispense 6 tablet. Refills: 0. Substitution permitted.[facility] - [address] [facility] ; [place] [address]. FaxNumber: . -- Physician Lianet Name Value Range Interpretation Code Description Data Renee rce(s) Supporting Document(s) ID Date Data Source [id number] 05/20/2020 07:34:00 PM [place] [address] Medication Administration Record [facility] Emergency Department [address] [place] [address] Phone #: ext- [phone] 05/20/2020 19:21 Patient: COREY CORTEZ Sex: F : 1990 Age: 29yWeight: 117.9 kgHeight/Length: 69 inBMI: 38.4ALLERGIES: Tramadol causes seizures, Reglan causes syncope, Apririn causes trouble breathing Date/Time Medication Administered Medication OrderedGiven MACROBID [PO] (NITROFURANTOIN Macrobid PO 100 mg22:37 05/20/2020 MONOHYD MACRO)Watson Sepulveda RN Dose: 100 mg Capsules PO Name Value Range Interpretation Code Description Data Renee rce(s) Supporting Document(s) ID Date Data Source [id number] 05/20/2020 07:34:00 PM [facility] 1 General Instructions [facility] Emergency Department [address] [place] [address] Phone #: ext- [phone] 05/20/2020 19:21 Patient: [...] for UTI. Dispense 14 capsule. Refills:0. Substitution permitted.[facility] [place] [address]. Phone: GoxNumber: .Pyridium 200 mg tablet Take 1 tablet every eight hours for 2 days -- for cystitis / bladder spasm.Dispense 6 tablet. Refills: 0. Substitution permitted.[facility] [address] [place] [address]. faxNumber: .Follow-up:Follow up with your doctor tomorrow if not better. Call for an appointment. Reason for referral: evaluation,treatment and UTI / Abdominal pain.Understanding of the discharge instructions verbalized by patient. ADDITIONAL INFORMATIONUnknown Causes of Abdominal Pain (Female) 2 General Instructions [facility] Emergency Department [address] [place] [address] Phone #: ext- [phone] 05/20/2020 19:21 Patient: [...] for taking these medicines. 3 General Instructions [facility] Emergency Department [address] [place] [address] Phone #: ext- [phone] 05/20/2020 19:21 Patient: [...] begin to improve in thenext 24 hours.Call [phone] if any of these occur: Trouble breathing Confusion Fainting or loss of consciousness Rapid heart rate 4 General Instructions [facility] Emergency Department [address] [place] [address] Phone #: ext- [phone] 05/20/2020 19:21 Patient: COREY CORTEZ Sex: F [...] or water and you are getting dehydrated [phone] [employer]. [address] [place] [address]. All rights reserved. This information is not intended as asubstitute for professional medical care. Always follow your healthcare professional's instructions.Bladder Infection, Female (Adult) 5 General Instructions [facility] Emergency Department [address] [place] [address] Phone #: ext- [phone] 05/20/2020 19:21 Patient: [...] above the pubic bone. 6 General Instructions [facility] Emergency Department [address] [place] [address] Phone #: ext- [phone] 05/20/2020 19:21 Patient: COREY CORTEZ Sex: F : 1990 Age: 29y Cloudy urine Strong- [...] more serious kidney infection.Medicines 7 General Instructions [facility] Emergency Department [address] [place] [address] Phone #: ext- [phone] 05/20/2020 19:21 Patient: [...] will affect your treatment. 8 General Instructions [facility] Emergency Department [address] [place] [address] Phone #: ext- [phone] 05/20/2020 19:21 Patient: [...] swelling in the outer vaginal area (labia) [phone] [employer] [place] [address]. All rights reserved. This information is not [...] plenty of fluids. These 9 General Instructions [facility] Emergency Department [address] [place] [address] Phone #: ext- [phone] 05/20/2020 19:21 Patient: COREY CORTEZ Sex: F [...] malaria. Malaria is a 10 General Instructions [facility] Emergency Department [address] [place] [address] Phone #: ext- [phone] 05/20/2020 19:21 Patient: COREY CORTEZ Sex: F [...] place where infectious diseases arecommon. Many people pickup driver a cold or other virus while traveling. [...] you were there Where you stayed (hotel, [place], tent) What you ate and drank If you were bitten by insects or other bugs 11 General Instructions [facility] Emergency Department [address] [place] [address] Phone #: ext- [phone] 05/20/2020 19:21 Patient: COREY CORTEZ Sex: F : 1990 Age: 29y If you swam in freshwater If you had sex or got a tattoo or piercing while you were thereCheck the [facility] to get more information about specific infectious diseases in the areas you havetraveled. 3700-4818 [employer]. [address] [place] [address], [place] [address]. All rights reserved. This information is not intended as asubstitute for professional medical care. Always follow your healthcare professional's instructions. You have been given the following additional information: Abdominal Pain, Unknown Cause, (Female) Bladder Infection, Female (Adult) Fever Control (Adult)(Electronically signed by Paulino Castellanos, Physician 05/21/2020 05:50) Name Value Range Interpretation Code Description Data Renee rce(s) Supporting Document(s) ID Date Data Source [id number] 05/20/2020 07:34:00 PM EST [facility] 1 Clinical Report - Nurses [facility] Emergency Department [address] [place] [address] Phone #: ext- [phone] 05/20/2020 19:21 Patient: COREY CORTEZ Sex: F : 1990 Age: 29yTRIAGEHistorian: patient. Arrived from home (taxi).Triage time: 19:22 05/20/2020.Chief Complaint: ABDOMINAL PAIN.Onset. (). ( Had upper scope at [place] on the , currently reporst right upper quad sharpstabbing pain.). She has had nausea (slight). No diarrhea, constipation or fever. 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 (reports that pain comes [...] breathing. --05/20/20 Lien Sepulveda R.N.Reglan causes syncope. --:05/20/20 Lien Sepulveda R.N.Tramadol causes seizures. --19:30 05/20/20 Lien Sepulveda R.N.PROBLEMS:Cardiomegaly.Av block.Syncope.UTI - Urinary Tract Infection.Gastritis. 2 Clinical Report - Nurses [facility] Emergency Department [address] [place] [address] Phone #: ext- [phone] 05/20/2020 19:21 [id number] Sex: F : 1990 Age: 29y GI [...] Sepulveda RN 3 Clinical Report - Nurses [facility] Emergency Department [address] [place] [address] Phone #: ext- [phone] 05/20/2020 19:21 Patient: [id number] Sex: F : 1990 Age: 29y 20:36 05/20/2020 Two (2) unsuccessful IV access attempts (By this technical document writer. Multiple attempts by other staff. Notified. Lab [...] Patient verbalized understanding. Written instructions provided in [place] Islander. The patient was discharged by the physician. [...] rce(s) Supporting Document(s) ID Date Data Source [id number] 05/20/2020 07:34:00 PM EST [facility] 1 Clinical Report - Physicians/Mid Levels [facility] Emergency Department [address] [place] [address] Phone #: ext- [phone] 05/20/2020 19:21 Patient: [...] travel. 2 Clinical Report - Physicians/Mid Levels [facility] Emergency Department [address] [place] [address] Phone #: ext- [phone] 05/20/2020 19:21 Patient: COREY CORTEZ Sex: F [...] ABD //T// PELV W/O ORAL W/[place] [address] ---------NAME--------- NUMBER SEX AGE ADMIT DISC. XRAY# F/C TYPE ELI JONESR B [id number] F 29 05/20/20 [id number] X6B E/R DATE OF : 1990 M/R# [id number] #: [id number] TR-03 LOCATION: EMERGENCY DEPT TRANSCRIBED: 05/20/20 22:[address] ABD //T// PELV W/[place] ORAL W/[place] [id number] COMPLETED:05/20/20 22:34 marsha [id number] Reason(s): Abdominal Pain PHYSICIAN: ERNA BR R A D I O L O G Y R E P O R T PATIENT HISTORY: ABDOMINAL PAIN 3 Clinical Report - Physicians/Mid Levels [facility] Emergency Department [address] [place] [address] Phone #: ext- [phone] 05/20/2020 19:21 Patient: [id number] Sex: F : 1990 Age: 29y HYSTERECTOMY [...] 22:33US Gall Bladder: (DEON: 05/20/2020 19:41) ( Mscvd 05/20/2020 19:48) CanceledReason(s): RUQ PainReason(s): RUQ PainTRANSPORTATION: WC IV? O2? Oxygen?(No) [facility] ([facility]: 05/20/2020 21:19) ( [facility] 05/20/2020 21:33) Final results 4 Clinical Report - Physicians/Mid Levels [facility] Emergency Department [address] [place] [address] Phone #: ext- [phone] 05/20/2020 19:21 Patient: [...] NONECBC w Diff: (DEON: 05/20/2020 19:40) ( [facility] 05/21/2020 05:05) Canceledfemoral drawn by dr erna [...] Male GFR Interprentation 20-49 yrs >60 mL/min Xpakkm38-95 yrs >56 mL/min Normal 60-69 yrs >49 mL/min Normal 70-79yrs>42 mL/min Normal 80 and above >35 mL/min Normal Female GFRInterpretation 20-39 yrs >60 mL/min Normal 40-49 yrs >58 mL/minNormal 50-59 yrs >51 mL/min Normal 60-69 yrs >45 mL/min Normal 5 Clinical Report - Physicians/Mid Levels [facility] Emergency Department [address] [place] [address] Phone #: ext- [phone] 05/20/2020 19:21 Patient: [...] alcohol. 6 Clinical Report - Physicians/Mid Levels [facility] Emergency Department [address] [place] [address] Phone #: ext- [phone] 05/20/2020 19:21 Patient: COREY CORTEZ Sex: F [...] Dispense 14 capsule. Refills: 0. Substitution permitted. [facility] [place] [address]. . Pyridium 200 mg tablet Take 1 tablet every eight hours for 2 days -- for cystitis / bladder spasm. Dispense 6 tablet. Refills: 0. Substitution permitted. [facility] [place] [address]. . Follow-up: Follow up with your doctor tomorrow if not better. Call for an appointment. Reason for referral: evaluation, treatment and UTI / Abdominal pain. Understanding of the discharge instructions verbalized by patient.(Electronically signed by Paulino Castellanos, Physician 05/21/2020 05:50) Name Value Range Interpretation Code Description Data Renee rce(s) Supporting Document(s) ID Date Data Source [id number] 05/20/2020 07:34:00 PM [facility] for COREY CORTEZ VisitID: [id number] Date: 11:38Pt urine growing gram negative rods [...] rce(s) Supporting Document(s) ID Date Data Source [id number] 05/20/2020 10:33:00 PM [facility] [address] [facility] [place] [address] ---------NAME--------- NUMBER SEX AGE ADMIT DISC. XRAY# F/C TYPE ELI JONESJair Long [id number] F 29 05/20/20 [id number] X6B E/R DATE OF : 1990 M/R# [id number] #: [id number] TR-03 LOCATION: EMERGENCY DEPT TRANSCRIBED: 05/20/20 22:[address] ABD //T// PELV W/[place] ORAL W/[place] [id number] COMPLETED:05/20/20 22:34 marsha [id number] Reason(s): Abdominal Pain PHYSICIAN: ERNA BR======= R [...] rce(s) Supporting Document(s) ID Date Data Source [id number] 05/20/2020 09:42:00 PM EST [facility] Name Value Range Interpretation Code Description Data Renee rce(s) Supporting Document(s) Lipase [Enzymatic activity/volume] in Serum or Plasma 34 U/L 13 - 60 [facility] ID Date Data Source [id number] 05/20/2020 09:32:00 PM EST [facility] Name Value Range Interpretation Code Description Data Renee rce(s) Supporting Document(s) [facility] COL[facility] yellow NORMAL: Yellow [facility] CLARITY cloudy NORMAL: Clear [facility] Specific gravity of Urine by Test strip 1.010 1.001 - 1.030 [facility] pH 6 5 - 9 [facility] Glucose [Mass/volume] in Urine by Test strip NORM NORMAL: Negat [facility] Bilirubin.total [Presence] in Urine by Test strip NEG NORMAL: Negative [facility] Ketones [Presence] in Urine by Test strip NEG NORMAL: Negative [facility] Protein [Mass/volume] in Urine by Test strip NEG NORMAL: Negat [facility] Nitrite [Presence] in Urine by Test strip POS NORMAL: Negative [facility] BLOOD NEG NORMAL: Negative [facility] Leukocyte esterase [Presence] in Urine by Test strip NEG TEODORO L: Negative [facility] Urobilinogen [Mass/volume] in Urine by Test strip NOR less maura n 1.0 mg/dL [facility] MICROSCOPIC See Below [facility] ital WBC 1 - 3 NORMAL: NONE SEEN [facility] Erythrocytes [#/volume] in Urine by Test strip None Seen NORMAL: NON E SEEN [facility] EPITHELIAL MODERATE NORMAL: NONE SEEN A [facility] Bacteria [Presence] in Urine sediment by Light microscopy 2+ MOD NORMAL: NONE SEEN A [facility] Mucus [Presence] in Urine sediment by Light microscopy Trace NORMAL: NONE SEEN [facility] ID Date Data Source [id number] 05/20/2020 09:44:00 PM EST [facility] Name Value Range Interpretation Code Description Data Renee rce(s) Supporting Document(s) COMPREHENSIVE METABOLIC PANEL [facility] COMPREHENSIVE METABOLIC PANEL Sodium [Moles/volume] in Serum or Plasma 137 mEq/L 134 - 153 [facility] Potassium [Moles/volume] in Serum or Plasma 4.4 mEq/L 3.6 - 5.0 [facility] Chloride [Moles/volume] in Serum or Plasma 106 mEq/L 98 - 107 [facility] Carbon dioxide, total [Moles/volume] in Serum or Plasma 24 MEQ/L 22 - 30 [facility] Glucose [Mass/volume] in Serum or Plasma 98 MG/DL 65 - 110 [facility] [facility] BUN 13 MG/DL 7 - 21 [facility] Creatinine [Mass/volume] in Serum or Plasma 0.7 MG/DL 0.7 - 1.5 [facility] BUN/CREAT 19 8 - 27 [facility] Protein [Mass/volume] in Serum or Plasma 7.2 G/DL 6.3 - 8.2 [facility] Albumin [Mass/volume] in Serum or Plasma 4.3 G/DL 3.9 - 5.0 [facility] Globulin [Mass/volume] in Serum by calculation 2.9 GM/DL 2.4 - 3.2 [facility] A/G RATIO 1.5 0.8 - 2.0 [facility] Calcium [Mass/volume] in Serum or Plasma 9.3 MG/DL 8.4 - 10.2 [facility] Bilirubin.total [Mass/volume] in Serum or Plasma <0.7 MG/DL 0.2 - 1.3 [facility] Alkaline phosphatase [Enzymatic activity/volume] in Serum or Plasma 88 U/L 38 - 126 [facility] Aspartate aminotransferase [Enzymatic activity/volume] in Serum or Plasma 34 U/L 5 - 40 [facility] Alanine aminotransferase [Enzymatic activity/volume] in Seru m or Plasma 26 U/L 7 - 56 [facility] Anion gap 3 in Serum or Plasma 7.0 mmol/L 8.0 - 16.0 L [facility] AGE 29 yrs [facility] NON-AA GFR >60 mL/min [facility] ital AFR AMER GFR >60 mL/min [facility] Male GFR In terprentation 20-49 [...] >32 mL/min Normal ID Date Data Source [id number] 05/24/2020 01:10:00 PM EST [facility] Name Value Range Interpretation Code Description Data Renee rce(s) Supporting Document(s) CULTURE URINE [facility] _CULTURE URINE_$$037185$$165210$$822086$$505473$$660851$$028137$$764653$$511171$$684545$$ 198285$$156017$$669590$$923385$$639257$$741724$$892523$$574862$$067731$$111854$$ 564925$$995513$$431152$$429677$$724368$$109143$$178635$$876867 -- Continued on next page --Patient: ELI NICOLE B Order: [id number] Page 2Culture: CULTURE URINE Status: Final ==== -- Continued on next page --Patient: ELI JONESR B Order: [id number] Page 2Culture: CULTURE URINE Status: Prelim =====$$[id number]$$[id number] DATE/TIME: 05/24/2020 12:06Culture: CULTURE URINE Status: FinalIsolate 1 Enterobacter species Flag: A . . . . . . .5Greater than 100,000 colony forming units per mL Previous result entered on 05/23/2020 03:57 ET Gram negative rodsUrine Culture,Comprehensive: H4Igplaqzffqhy species Flag: APatient: CORTEZ COREY Long Order: [id number] Page 3Culture: CULTURE URINE Status: Final ====ISOLATE [...] S S . . . . . .67308-1Tkjpckzagq S S . . . . . .267-5Imipenem S S . . . . . .279-0Levofloxacin S S . . . . . .76963- 8Meropenem S S . . . . . .6652-2Nitrofurantoin S S . . . . . .363-2Tetracycline S S . . . . . .496-0Tobramycin S S . . . . . .508-2Trimethoprim/Sulfa S S . . . . . .516-5P1 Test performed by: Tristin YUAN #: [id number] [address] [place] [address] [id number] [place] [address]Prpusvf Director : Jt Long MD NPI #:Branch Office Administrator : 05/23/20.0641.XMT.SENT REF 05/24/20.1310.XMT.SENT REF ID Date Data Source [id number] 05/16/2020 09:23:00 AM EDT [id number] [place] [address] INFORMATION MANAGEMENT OR Report : [id number] Signed Patient: Corey Cortez [facility] Acct:[id number] Unit: [id number] : 1990 Loc: ENDO Room/Bed: Age/Sex: 29 / F ADM Date: 05/16/20 cc: Sergio Conklin MD, Tyrone Scruggs MD SS Gastro OR Report Post Procedure/Discharge Note Date of Procedure:: 05/16/2020 Surgeon:: Sergio Conklin MD Was an Professional Bondsman used?: No Preoperative Diagnosis:: morbid obesity Post [...] rce(s) Supporting Document(s) ID Date Data Source [id number] 05/17/2020 01:35:00 PM [facility] Run: 05/17/20 1335 INTERFACED REPORT Name: Corey Cortez Age/Sex: 29/F Location: ENDO Acct: [id number] Unit: [id number] Status: [facility] Room/Bed: Re05/16/20 Disch: Alleg[place] Dr: Sergio Conklin MD Spec Num: [id number] Recd: 05/16/20 Status: ROBERT Beata Num: [id number] SpType: SURGICAL Sub Dr: Sergio Conklin MD Morbid obesity EGD, pre-bariatric surgery ProcGROSS AND MICROSCOPIC - L4/2, Helicobacter Pylori Obesity 1. Duodenum biopsy 2. Gastric antrum biopsy, check for H. Pylori This case consists of two specimens, both are received in formalin. 1. The specimen labeled with the patient's name and 3j78uliaqaij jlhvvl9m59 consists of a single fragment of pink-brady colored mucosal tissue which measures 0.2 cm in greatest dimension; entirely submitted. 2. The specimen labeled with the patient's name and 2g57zpbhwm biopsy, r/o H. Dxkysy1h41 consists of two fragments of pink-brady colored mucosal tissue which measure 0.4 x 0.3 x 0.2 cm in aggregate; entirely submitted. (05-16-20 jwd/cjs) 1. Duodenum, biopsy: - Duodenal mucosa with no particular pathology 2. Gastric antrum, biopsy: - Gastric mucosa with no particular pathology - Special stain reveals no organisms resembling H. Pylori PATI/marlen 05-17-20 665 x 2 Signed (signature on file) Sallie Tavares MD 05/17/20 Derick Meehan Pat END OF REPORT Name Value Range Interpretation Code Description Data Renee rce(s) Supporting Document(s) ID Date Data Source [id number] 05/07/2020 04:21:50 PM EDT [facility] Name Value Range Interpretation Code Description Data Renee rce(s) Supporting Document(s) Progress Note [facility] IUEVMd3mCeGEAfLb93/XYPudCCQhz5QoQInmFRf7IXlnQHHvU9GaIKV2vO7wHSU2PTrZDfMcWuXiNJL4 [facility] [file] AgICAgICAgICAgICAgICAgICAgICAgICAgICAgICAgICAgICAgICAgICAgICAgICAgICAgICAgICAgIC AgICAgICAgICAgICAgICAgICAgICAgDQogICAgICAgICAgICAgICAgICAgICAgICAgICAgICAgICAgIC AgICAgICAgICAgICAgICAgICAgICAgICAgICAgICAg ICAgICAgICAgICAgICAgICAgICAgICAgICAgICAgICAgDQogICAgICAgICAgICAgICAgICAgICAgICAg ICAgICAgICAgICAgICAgICAgICAgICAgICAgICAgICAgICAgICAgICAgICAgICAgICAgICAgICAgICAg ICAgICAgICAgICAgICAgDQogICAgICAgICAgICAgIC AgICAgICAgICAgICAgICAgICAgICAgICAgICAgICAgICAgICAgICAgICAgICAgICAgICAgICAgICAgIC AgICAgICAgICAgICAgICAgICAgICAgICAgDQogICAgICAgICAgICAgICAgICAgICAgICAgICAgICAgIC AgICAgICAgICAgICAgICAgICAgICAgICAgICAgICAg ICAgICAgICAgICAgICAgICAgICAgICAgICAgICAgICAgICAgDQogICAgICAgICAgICAgICAgICAgICAg ICAgICAgICAgICAgICAgICAgICAgICAgICAgICAgICAgICAgICAgICAgICAgICAgICAgICAgICAgICAg ICAgICAgICAgICAgICAgICAgDQogICAgICAgICAgIC AgICAgICAgICAgICAgICAgICAgICAgICAgICAgICAgICAgICAgICAgICAgICAgICAgICAgICAgICAgIC AgICAgICAgICAgICAgICAgICAgICAgICAgICAgDQogICAgICAgICAgICAgICAgICAgICAgICAgICAgIC AgICAgICAgICAgICAgICAgICAgICAgICAgICAgICAg ICAgICAgICAgICAgICAgICAgICAgICAgICAgICAgICAgICAgICAgDQogICAgICAgICAgICAgICAgICAg ICAgICAgICAgICAgICAgICAgICAgICAgICAgICAgICAgICAgICAgICAgICAgICAgICAgICAgICAgICAg ICAgICAgICAgICAgICAgICAgICAgDQogICAgICAgIC AgICAgICAgICAgICAgICAgICAgICAgICAgICAgICAgICAgICAgICAgICAgICAgICAgICAgICAgICAgIC SmKZGdYUMiHVHmURHqFNKtGXFjAHQhJAPaOJYfSVUkHKw1Y4dhQGTeETAbGR2sHSb6On3+DQoNCmVuZH H2ffKfpR9JPR6gh7MyWYguSAEwh3WvGNe4MQ3YIJUp GSwiHB6GHYnbho6UBLNyRFIagQLDp9xiYzUgDTE0FHHbThuyHP3EDSHpF5vywjFiEQXuXVSMXTkhOLOC OIveYQRLCAZfDJCzXaUuUrJeGWGpBL5BUWTjE149qfFaZI2HBp1AEdDlWW2dlw2TXvUiTMYeXqnMFyz7 HVkoEO2CwZIsgEPjOIOsEHSDJbXpP3ueh9IvAmHsYO UYPUogIB0Dw8EtqNIeEHr+Bc5WLL0dv3AsTVmtHNGmOX5rly5THRzILwIwS7CaiGsgMSGzj6vlNMBaTT 4mmNJgZLT3HGCaZMIyRZMztBZ1TZmsITDZMuJdnFWmBO3oSH2mAWSoUKYlMvBiGUXSKC2DDHSdBINoeL QjCVEyJDNRZY9HAFqmDMO4YWYavmMycACmBTvhEY3I YXJlbnQgMzAgMCBSDQo+Ei9KBV0iq7MsEMrbPjTpPJ7rym8AYNlOCzCtM3N2hEErC7F5TKyuLd4JPCBl MLRhGgkvPGMFQIyeVU2ISM3bpbU6KR5BgCAkTXUjCZNbzYHnHOs9R05auBIwBLhmHE4RREO+Ivett+Pg0K DDNjGNQxMXGhHfZkODVTSuHhB1XyJ1VHe3ZaR1QcHZ 27uKjjknWxGOqmOP3LDJ2nGZZuRXCMYK7FrZLicY8bonKgNCYlDCZNCyXqC87phAVcLXYfIBS9CQIjGh 8DAGWvS1NfcnVxrCktgaIiVQBsTKRNGR5SPNfhjxZrnBXuyUwyEM09hUdyKO6IVv2BUlFzMV2zuk7JjW EgRg4SJROyGf7CFBNtWJCvZESgLAE0XLEtAwHgRYsr HEQpBHZvEZQ2FDJzTRSmON6VXmZwZUViYxJ9UPNaMPQhSKRzuc1YRBFmNNWfRRLbJyJgFTMqFELuAKcz QRKpFWUiTQN6TZNjHGKaAI9JBkBvTICkWAI7PpDeDIZaIVOhsr2EUVCfXTPaDRWmWZWiUPFpGVVeYJil NFWuUOF9YZe1JGByLIAwSH6XTmZfSNSeMEv0OTfqTU XhSFNpor7YIZFbFHVzJMu7EqMwEECpXJHlXMsdURWtWLXjYAthVOLmPUSoQA1RGwNnCSUjZTBeRJiyIT WjYPGimj0FFIXxNHKvTKB1JSZrJLZcOGMrEGfeOWXzYYD7BjV3FUOdRHPpYK0RHuScWASyFLG8OXZiYY UdXMEbiw8MQLHqBFVuOxX1DCMvEIOjRVMxYPxoLKIc MCA3FCD7APNlOTYhMK3WMhGfPKNvHRk9XMXnRKHjVCXulm5FYZBxXPZxAXuzOQUnAMXrLDAsJAgpAWBl QFL5QYNdSIFiEYLvHD4IViBpNNRjDMtlFDduQQWzHKYypb4FVHBfAKZaVOVyBGVlQNEoOZEjQYgxKXTa GOGaUQO3THGzYEJiKT7YVrSeJFWwHpMsSxVbEZNsFI Isfm3MCCAyLCQvXVXgZhEnEVBaNAGhLIstMVJsNUQjROF2MTLjDYHhUJ3WSpQhFNUeFyP4QZHcGOGhPN Lezg7XKTTpOUTwEpU2AMEkYKJrUEZiSIqeDAPsOJDgAiF4QMRjCOSoIY3DUuNzVBWcKmWrRIMoDHMpUP Cgwp1CXLRwKBYnFXN9SHFsJKPyYPEqUSysJKJaAIU4 ClBzGLBeTOXyEY9HUyLcJMIuFpR3CfScMQEmSDZjzz1ViKZsxYbull2VOKnYTa6DtSwtIEVmBUgjTu8i jUEjXuXeNAMJIa6JuyQgHEIuZQEAACtdKJAhOQP5OtHhZLDfVyr8VyNxMvnaR6VdItZwSFH4BRO6PdZf RnW2HaJ6NoX0DGRrPByrKUB6CVOuNBLsLnLaUGg3Qx g2M2Q+KX3iAWg+Be9Rz6PkvfT5xrReRIcfGIOkCE4FJSPPX4TPRs== ID Date Data Source [id number] 05/01/2020 12:36:00 PM EDT [facility] [address] [place] [address] PHONE: [phone] FAX: [phone] Name .................. : ELI Long Acct Number.................. : [id number] ROOM. ................. : TR-03 Number ................... : [id number] Stay type ............. : E/R Discharge Date......... ... : 04/26/20 Admit Date ... ...... : 04/25/20 Admit Phys .................... : JOI COATES Date of ....... : 1990 Family Phys ................... : GARCIA [employer] Phone .................. : [phone] Age ................................ : 29 Film# .................. .:[id number] Sex ................................. : F Unsigned transcriptions are preliminary reports and do not represent a medical or legal document CHEST 2 VIEWS [id number] COMPLETE:04/25/20 22:25 RLB 30353 Reason(s): Shortness of Breath CHEST X-RAY: 2-VIEWS [...] rce(s) Supporting Document(s) ID Date Data Source [id number] 05/01/2020 08:52:00 AM EDT [facility] Name Value Range Interpretation Code Description Data Renee rce(s) Supporting Document(s) VIT D25 TOT 17.0 ng/mL 30.0-100.0 L [facility] BG FASTING 82 mg/dL 70-100 N [facility] ID Date Data Source [id number] 05/01/2020 08:52:00 AM EDT [facility] Name Value Range Interpretation Code Description Data Renee rce(s) Supporting Document(s) HCT 38.5 % 36.0-47.0 N [facility] HGB 12.3 g/dL 12.0-15.5 N [facility] MCH 31.9 G/DL pg 32.0-36.5 L [facility] MCHC 31.4 PG % 27.0-33.0 N [facility] PLATELETS 167 10 10*3/mm3 150-450 N [facility] RBC 3.92 10 10*6/mm3 4.00-5.40 L [facility] RDW 13.0 % 11.5-14.5 N [facility] WBC TOTAL 5.0 4.0-10.0 N [facility] ID Date Data Source [id number] 05/01/2020 08:52:00 AM EDT [facility]) Name Value Range Interpretation Code Description Data Renee rce(s) Supporting Document(s) vitamin E(alpha tocopherol) 8.7 mg/L 5.9-19.4 Vitamin E(alpha Tocopherol) [facility] ([facility]) vitamin E(gamma tocopherol) 2.2 mg/L 0.7-4.9 Vitamin E(gamma Tocopherol) [facility] ([facility]) ID Date Data Source [id number] 05/01/2020 08:52:00 AM EDT [facility]) Name Value Range Interpretation Code Description Data Renee rce(s) Supporting Document(s) vitamin B1 level whole blood 87.8 nmol/L 66.5-200.0 Vitamin B1 Level Whole Blood [facility]) ID Date Data Source [id number] 05/01/2020 08:52:00 AM EDT [facility] Name Value Range Interpretation Code Description Data Renee rce(s) Supporting Document(s) vitamin E(alpha tocopherol) 8.7 mg/L 5.9-19.4 Vitamin E(alpha Tocopherol) [facility] ([facility]) vitamin E(gamma tocopherol) 2.2 mg/L 0.7-4.9 Vitamin E(gamma Tocopherol) [place] ([facility]) ID Date Data Source [id number] 05/01/2020 08:52:00 AM EDT [facility]) Name Value Range Interpretation Code Description Data Renee rce(s) Supporting Document(s) vitamin B1 level whole blood 87.8 nmol/L 66.5-200.0 Vitamin B1 Level Whole Blood [facility] ID Date Data Source [id number] 05/01/2020 08:52:00 AM EDT [facility]) Name Value Range Interpretation Code Description Data Renee rce(s) Supporting Document(s) vitamin E(alpha tocopherol) 8.7 mg/L 5.9-19.4 Vitamin E(alpha Tocopherol) [facility] ([facility]) vitamin E(gamma tocopherol) 2.2 mg/L 0.7-4.9 Vitamin E(gamma Tocopherol) [facility] ([facility]) ID Date Data Source [id number] 05/01/2020 08:52:00 AM EDT [facility]) Name Value Range Interpretation Code Description Data Renee rce(s) Supporting Document(s) vitamin B1 level whole blood 87.8 nmol/L 66.5-200.0 Vitamin B1 Level Whole Blood [facility]) ID Date Data Source [id number] 05/01/2020 08:52:00 AM EDT [facility] Name Value Range Interpretation Code Description Data Renee rce(s) Supporting Document(s) vitamin B1 level whole blood 87.8 nmol/L 66.5-200.0 Vitamin B1 Level Whole Blood [facility]) ID Date Data Source [id number] 05/01/2020 08:52:00 AM EDT [facility]) Name Value Range Interpretation Code Description Data Renee rce(s) Supporting Document(s) vitamin E(alpha tocopherol) 8.7 mg/L 5.9-19.4 Vitamin E(alpha Tocopherol) [facility] ([facility]) vitamin E(gamma tocopherol) 2.2 mg/L 0.7-4.9 Vitamin E(gamma Tocopherol) [facility]) ID Date Data Source [id number] 05/01/2020 08:52:00 AM EDT [facility]) Name Value Range Interpretation Code Description Data Renee rce(s) Supporting Document(s) vitamin E(alpha tocopherol) 8.7 mg/L 5.9-19.4 Vitamin E(alpha Tocopherol) [facility] ([facility]) vitamin E(gamma tocopherol) 2.2 mg/L 0.7-4.9 Vitamin E(gamma Tocopherol) [facility] ([facility]) ID Date Data Source [id number] 05/01/2020 08:52:00 AM EDT [facility] Name Value Range Interpretation Code Description Data Renee rce(s) Supporting Document(s) vitamin B1 level whole blood 87.8 nmol/L 66.5-200.0 Vitamin B1 Level Whole Blood [facility]) ID Date Data Source [id number] 05/01/2020 08:52:00 AM EDT [facility]) Name Value Range Interpretation Code Description Data Renee rce(s) Supporting Document(s) vitamin E(alpha tocopherol) 8.7 mg/L 5.9-19.4 Vitamin E(alpha Tocopherol) [facility] ([facility]) vitamin E(gamma tocopherol) 2.2 mg/L 0.7-4.9 Vitamin E(gamma Tocopherol) [place] ([facility]) ID Date Data Source [id number] 05/01/2020 08:52:00 AM EDT [facility] Name Value Range Interpretation Code Description Data Renee rce(s) Supporting Document(s) vitamin B1 level whole blood 87.8 nmol/L 66.5-200.0 Vitamin B1 Level Whole Blood [facility]) ID Date Data Source [id number] 05/01/2020 08:52:00 AM EDT [facility]) Name Value Range Interpretation Code Description Data Renee rce(s) Supporting Document(s) vitamin E(alpha tocopherol) 8.7 mg/L 5.9-19.4 Vitamin E(alpha Tocopherol) [facility] ([facility]) vitamin E(gamma tocopherol) 2.2 mg/L 0.7-4.9 Vitamin E(gamma Tocopherol) [facility] ([facility]) ID Date Data Source [id number] 05/01/2020 08:52:00 AM EDT [facility] Name Value Range Interpretation Code Description Data Renee rce(s) Supporting Document(s) vitamin B1 level whole blood 87.8 nmol/L 66.5-200.0 Vitamin B1 Level Whole Blood [facility] ([facility]) ID Date Data Source [id number] 05/01/2020 08:52:00 AM EDT [facility]) Name Value Range Interpretation Code Description Data Renee rce(s) Supporting Document(s) vitamin E(alpha tocopherol) 8.7 mg/L 5.9-19.4 Vitamin E(alpha Tocopherol) [facility] ([facility]) vitamin E(gamma tocopherol) 2.2 mg/L 0.7-4.9 Vitamin E(gamma Tocopherol) [facility] ([facility]) ID Date Data Source [id number] 05/01/2020 08:52:00 AM EDT [facility]) Name Value Range Interpretation Code Description Data Renee rce(s) Supporting Document(s) vitamin B1 level whole blood 87.8 nmol/L 66.5-200.0 Vitamin B1 Level Whole Blood [facility]) ID Date Data Source [id number] 05/01/2020 08:52:00 AM EDT [facility]) Name Value Range Interpretation Code Description Data Renee rce(s) Supporting Document(s) vitamin E(alpha tocopherol) 8.7 mg/L 5.9-19.4 Vitamin E(alpha Tocopherol) [facility] ([facility]) vitamin E(gamma tocopherol) 2.2 mg/L 0.7-4.9 Vitamin E(gamma Tocopherol) [facility]) ID Date Data Source [id number] 05/01/2020 08:52:00 AM EDT [facility]) Name Value Range Interpretation Code Description Data Renee rce(s) Supporting Document(s) vitamin B1 level whole blood 87.8 nmol/L 66.5-200.0 Vitamin B1 Level Whole Blood [facility]) ID Date Data Source [id number] 05/01/2020 08:52:00 AM EDT [facility]) Name Value Range Interpretation Code Description Data Renee rce(s) Supporting Document(s) vitamin E(alpha tocopherol) 8.7 mg/L 5.9-19.4 Vitamin E(alpha Tocopherol) [place] ([facility]) vitamin E(gamma tocopherol) 2.2 mg/L 0.7-4.9 Vitamin E(gamma Tocopherol) [facility]) ID Date Data Source [id number] 05/01/2020 08:52:00 AM EDT [facility]) Name Value Range Interpretation Code Description Data Renee rce(s) Supporting Document(s) vitamin B1 level whole blood 87.8 nmol/L 66.5-200.0 Vitamin B1 Level Whole Blood [facility]) ID Date Data Source [id number] 04/26/2020 01:05:00 PM EDT [facility] [address] [place] [address] RESPIRATORY CARE REPORT ==== ---------NAME------- NUMBER SEX AGE ADMIT DISC. XRAY# F/C CARISA Long [id number] F 29 04/25/20 04/26/20 [id number] X6B E/R DATE OF : 1990 M/R# [id number] #: [id number] TR-03 LOCATION: EMERGENCY DEPT [facility]LY [facility] [id number] COMPLE TE:04/26/20 00:37 [place] 11842 PHYSICIAN: JOI COATES Name Value Range Interpretation Code Description Data Renee rce(s) Supporting Document(s) ID Date Data Source [id number] 04/25/2020 09:46:00 PM EDT [facility] 1 OrderSheet [facility] Emergency Department [address] [place] [address] Phone #: ext- [phone] 04/25/2020 21:46 Patient: COREY CORTEZ Sex: F : 1990 Age: 29yWEIGHT:114.7 kg (S) HEIGHT:69 inches (S) BMI:37.4ALLERGIES: Aspirin, Reglan, ToradolCHIEF COMPLAINT: dyspneaDIAGNOSIS: Normal ExamLAB ORDERSOrder Description Priority Entered Acknowledged [facility] 22:10 04/25/2020 Ack'd: 22:11 Lien 23:23 Nikhil Colindres R.N.NKari Sepulveda;CMP STAT 22:10 04/25/2020 Ack'd: 22:11 Lien 23:23 Nikhil Colindres R.N.NKari Sepulveda;Lipase STAT 22:10 04/25/2020 Ack'd: 22:11 Lien 23:23 Nikhil Colindres R.N., R.N., M.D.;PT/PTT STAT 22:10 04/25/2020 Ack'd: 22:11 Lien 23:23 Lien Cameron, Nikhil ZamarripaNKari Sepulveda R.N. M.D.;Troponin-T STAT 22:10 04/25/2020 Ack'd: 22:11 Lien 23:23 Lien Cameron, Nikhil Sepulveda RKariNKari Sepulveda R.N. M.D.;BNP STAT 22:10 04/25/2020 Ack'd: 22:11 Lien 23:23 Lien Cameron, Nikhil Sepulveda RKariNKari Sepulveda R.N. M.D.;D-Dimer STAT 22:10 04/25/2020 Ack'd: 22:11 Lien 23:23 Lien Cameron, Nikhil ZamarripaNKari Sepulveda R.N. M.D.;HCG Serum Qual STAT 22:10 04/25/2020 Ack'd: 22:11 Lien 23:23 Lien Cameron, Nikhil Sepulveda RKariNKari Sepulveda R.N. M.D.;DIAGNOSTIC STUDY ORDERSOrder Description Priority Entered Acknowledged InitialedChest 2 View STAT 22:10 04/25/2020 Ack'd: 22:11 Lien 22:16 Lien Toney(Oxygen?(No)) JoiNikhil R.N. R.N. M.D.; Reason for Study: Shortness of Breath 2 OrderSheet [facility] Emergency Department [address] [place] [address] Phone #: ext- [phone] 04/25/2020 21:46 Patient: COREY CORTEZ Sex: F : 1990 Age: 29yMEDICATION/IV/DRIP/FLUID ORDERSOrder Description Priority Entered Acknowledged InitialedGENERAL ORDERSOrder Description Priority Entered Acknowledged InitialedBlood Pressure 22:10 04/25/2020 22:11 Brian,Monitor Nikhil Cameron R.N. M.D.;Airplane Dispatcher 22:10 04/25/2020 22:11 Brian,(continuous) Nikhil Cameron R.N. M.D.;EKG 22:10 04/25/2020 22:11 Joi Torres, Nikhil Patterson R.N. M.D.;NPO 22:10 04/25/2020 22:11 Joi Torres Riccardo Lynnette R.N. M.D.;Obtain Old EKG 22:10 04/25/2020 Ack'd: [...] Ack'd: 22:11 Lien 22:12 Lien Feng Joi, Nikhil Feng Sepulveda R.N. MKariDKari;[Electronically signed by Watson Sepulveda RN (00:11 04/26/2020)][Electronically signed by Nikhil Cameron M.D. (00:19 04/26/2020)][Electronically locked by Watson Sepulveda RN (00:11 04/26/2020)] Name Value Range Interpretation Code Description Data Renee rce(s) Supporting Document(s) ID Date Data Source [id number] 04/25/2020 09:46:00 PM EDT [facility] 1 Medication Reconciliation Report [facility] Emergency Department [address] [place] [address] Phone #: ext- [phone] 04/25/2020 21:46 Patient: [...] Name Value Range Interpretation Code Description Data [facility](s) Supporting Document(s) ID Date Data Source [id number] 04/25/2020 09:46:00 PM EDT [facility] 1 Medication Administration Record [facility] Emergency Department [address] [place] [address] Phone #: ext- [phone] 04/25/2020 21:46 Patient: COREY CORTEZ Sex: F : 1990 Age: 29yWeight: 114.7 kgHeight/Length: 69 inBMI: 37.4ALLERGIES: Aspirin, Reglan, ToradolDate/Time Medication Administered Medication Ordered Name Value Range Interpretation Code Description Data Renee rce(s) Supporting Document(s) ID Date Data Source [id number] 04/25/2020 09:46:00 PM EDT [facility] 1 General Instructions [facility] Emergency Department [address] [place] [address] Phone #: ext- [phone] 04/25/2020 21:46 [facility]: [id number] Sex: F : 1990 Age: 29yNormal exam [...] Cameron M.D. 04/26/2020 00:19) 2 General Instructions [facility] Emergency Department [address] [place] [address] Phone #: ext- [phone] 04/25/2020 21:46 Patient: COREY CORTEZ Sex: F : 1990 Age: 29y Name Value Range Interpretation Code Description Data Renee rce(s) Supporting Document(s) ID Date Data Source [id number] 04/25/2020 09:46:00 PM EDT [facility] 1 Clinical Report - Nurses [facility] Emergency Department [address] [place] [address] Phone #: ext- [phone] 04/25/2020 21:46 Patient: COREY CORTEZ Sex: F : 1990 Age: 29yTRIAGEHistorian: EMS and patient.Triage time: 21:48 04/25/2020. Acuity: LEVEL 3.Chief Complaint: SHORTNESS OF BREATH.Onset. (5 AM). ( Awoke with SOB. reportedly called her food safety specialist who told her to get evaluated.). (Reports some tightness in the chest when she takes a deep breath. Her son was dx with PN.). 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 Sepsis Screen negative. No suspected orconfirmed signs of infection present. --21:51 04/25/20 Lien Sepulveda R.N.21:48 04/25/20. BP: 112/81. MAP: 91. HR: 91. RR: 18. O2 saturation: 100%. Temp: 98.4 F. Pain levelnow: 710. Additional comments: reports a global headache. --21:51 [...] Infection.Heart Disease. 2 Clinical Report - Nurses [facility] Emergency Department [address] [place] [address] Phone #: ext- [phone] 04/25/2020 21:46 Patient: [...] 04/25/20 [place] Clinical Report - Nurses [facility] Emergency Department [address] [place] [address] Phone #: ext- [phone] 04/25/2020 21:46 Patient: COREY CORTEZ Sex: F : 1990 Age: 29y Feng Sepulveda R.N. EKG time: (21:56 04/25/2020). EKG was performed by a nurse and shown to the ED physician. --21:56 04/25/20 Lien Sepulveda R.N. Patient transported to radiology by wheelchair with interventional radiology technologist. --22:16 04/25/20 Lien Sepulveda R.N. ( Lab [...] --23:23 04/25/20 Lien Sepulveda R.N.DISPOSITION / DISCHARGE [place] Coma Scale: 15- eyes open- spontaneous (4); best verbal response- oriented (5); best motor response- obeys commands (6). Condition at departure: improved. No learning barriers present. Discharge instructions provided and reviewed. Reviewed referral to family practice for followup. Reviewed low fat diet and salt (2 GM) diet. Patient verbalized understanding. Written instructions provided in Cook Islander. The patient was discharged home. She left [...] rce(s) Supporting Document(s) ID Date Data Source [id number] 04/25/2020 09:46:00 PM EDT [facility] 1 Clinical Report - Physicians/Mid Levels [facility] Emergency Department [address] [place] [address] Phone #: ext- [phone] 04/25/2020 21:46 Patient: [...] Gastroesophageal Reflux Disease. 2 Clinical Report - Physicians/Mid Levels [facility] Emergency Department [address] [place] [address] Phone #: ext- [phone] 04/25/2020 21:46 Patient: COREY CORTEZ Sex: F [...] rhythm. Rate: 79/min. 3 Clinical Report - Physicians/[facility] Emergency Department [address] [place] [address] Phone #: ext- [phone] 04/25/2020 21:46 -------- Patient: COREY CORTEZ Sex: [...] 10.2) 4 Clinical Report - Physicians/Mid Levels [facility] Emergency Department [address] [place] [address] Phone #: ext- [phone] 04/25/2020 21:46 Patient: [...] Male GFR Interprentation 20-49 yrs >60 mL/min Mknzmm07-28 yrs >56 mL/min Normal 60-69 yrs >49 mL/min Normal 70-79yrs>42 mL/min Normal 80 and above >35 mL/min Normal Female GFRInterpretation 20-39 yrs >60 mL/min Normal 40-49 yrs >58 mL/minNormal 50-59 yrs >51 mL/min Normal 60-69 yrs >45 mL/min Llsfpj17-62 yrs >39 mL/min Normal 80 and above >32 mL/min NormalLipase: (DEON: 04/25/2020 23:04) ( AkgRcvd 04/25/2020 23:31) Final results Test Result Flag [...] VenousThrombosis, Pulmonary Embolus, Tissue heart valves, Acute IL Atrial Fibrillation, Valvular heart diseaseand recurrent Systemic [...] NEGATIVE (NORMAL: NEGAT { KIT LOT # [id number] ){ KIT EXP DATE04/24/21 ){ PROCEDURAL CONTROL VALID)Chest 2 View: (DEON: 04/25/2020 22:10) ( Mscvd 04/25/2020 22:25) In Progress 5 Clinical Report - Physicians/Mid Levels [facility] Emergency Department [address] [place] [address] Phone #: ext- [phone] 04/25/2020 21:46 Patient: COREY CORTEZ Sex: F [...] d/c home and advised to f/u w COMMISSIONED DEFENCE 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 Patient counseled [...] MEDICATIONS: 6 Clinical Report - Physicians/Mid Levels [facility] Emergency Department [address] [place] [address] Phone #: ext- [phone] 04/25/2020 21:46 Patient: [...] rce(s) Supporting Document(s) ID Date Data Source [id number] 04/25/2020 11:08:00 PM EDT [facility] Name Value Range Interpretation Code Description Data [facility] rce(s) Supporting Document(s) CBC W/AUTOMATED DIFF [facility] COMPLETE BLOOD COUNT Leukocytes [#/volume] in Blood by Automated count 7.4 10^3/uL 4.2 - 1 1.0 [facility] Erythrocytes [#/volume] in Blood by Automated count 4.69 10^6/uL 4. 20 - 5.40 [facility] Hemoglobin [Mass/volume] in Blood 14.9 g/dL 12.0 - 16.0 [facility] Hematocrit [Volume Fraction] of Blood by Automated count 44.2 % 3 7.0 - 47.0 [facility] Erythrocyte mean corpuscular volume [Entitic volume] by Auto mated count 94.2 fL 81.0 - 101 [facility] Erythrocyte mean corpuscular hemoglobin [Entitic mass] by Automated count 31.8 pg 27.0 - 34.0 [facility] Erythrocyte mean corpuscular hemoglobin concentration [Mass/volume] by Automated count 33.7 g/dL 31.0 - 36.0 [facility] Erythrocyte distribution width [Ratio] by Automated count 12.7 % 11.5 - 14.5 [facility] Platelets [#/volume] in Blood by Automated count 187 10^3/uL 150 - 45 0 [facility] Platelet mean volume [Entitic volume] in Blood by Automated count 10.8 fL 7.4 - 10.4 H [facility] Neutrophils/100 leukocytes in Blood by Automated count 72.5 % 37. 0 - 80.0 [facility] Lymphocytes/100 leukocytes in Blood by Manual count 20.6 % 25.0 - 40.0 L [facility] Monocytes/100 leukocytes in Blood by Automated count 5.7 % 3.0 - 8.0 [facility] Eosinophils/100 leukocytes in Blood by Automated count 0.5 % 0.0 - 7.0 [facility] Basophils/100 leukocytes in Blood by Automated count 0.4 % 0.0 - 2.5 [facility] %IG 0.3 % 0.0 - 0.0 [facility] 0.0 % 0.0 - 0.0 [facility] al Neutrophils [#/volume] in Blood by Automated count 5.38 10^3/uL 2.00 - 6.90 [facility] Lymphocytes [#/volume] in Blood by Automated count 1.53 10^3/uL 0.60 - 3.40 [facility] Monocytes [#/volume] in Blood by Automated count 0.42 10^3/uL 0.00 - 0.90 [facility] Eosinophils [#/volume] in Blood by Automated count 0.04 10^3/uL 0.00 - 0.70 [facility] Basophils [#/volume] in Blood by Automated count 0.03 10^3/uL 0.00 - 0.20 [facility] #IG 0.02 10^3/uL 0.00 - 0.10 [facility] ospital #NRBC 0.00 10^3/uL 0.00 - 0.00 [facility] MANUAL DIFF NOT INDICATED [facility] RBC MORPH NOT INDICATED [facility] ID Date Data Source [id number] 04/25/2020 11:18:00 PM EDT [facility] Name Value Range Interpretation Code Description Data Renee rce(s) Supporting Document(s) HCG SERUM QUAL NEGATIVE NORMAL: NEGATIVE [facility] HCG SERUM QL REENTER NEGATIVE NORMAL: NEGATIVE [facility] { K[facility] LOT # [id number] ){ KIT EXP DATE 04/24/21 ){ PROCEDURAL CONTROL VALID ) ID Date Data Source [id number] 04/25/2020 11:49:00 PM EDT [facility] Name Value Range Interpretation Code Description Data Renee rce(s) Supporting Document(s) BNP 89 PG/ML 0 - 125 [facility] al ID Date Data Source [id number] 04/25/2020 11:31:00 PM EDT [facility] Name Value Range Interpretation Code Description Data Renee rce(s) Supporting Document(s) COMPREHENSIVE METABOLIC PANEL [facility] COMPREHENSIVE METABOLIC PANEL Sodium [Moles/volume] in Serum or Plasma 136 mEq/L 134 - 153 [facility] Potassium [Moles/volume] in Serum or Plasma 3.7 mEq/L 3.6 - 5.0 [facility] Chloride [Moles/volume] in Serum or Plasma 96 mEq/L 98 - 107 L [facility] Carbon dioxide, total [Moles/volume] in Serum or Plasma 26 MEQ/L 22 - 30 [facility] Glucose [Mass/volume] in Serum or Plasma 99 MG/DL 65 - 110 [facility] BUN 23 MG/DL 7 - 21 [facility] Creatinine [Mass/volume] in Serum or Plasma 0.8 MG/DL 0.7 - 1.5 [facility] BUN/CREAT 29 8 - 27 [facility] Protein [Mass/volume] in Serum or Plasma 7.9 G/DL 6.3 - 8.2 [facility] Albumin [Mass/volume] in Serum or Plasma 4.6 G/DL 3.9 - 5.0 [facility] Globulin [Mass/volume] in Serum by calculation 3.3 GM/DL 2.4 - 3.2 H [facility] A/G RATIO 1.4 0.8 - 2.0 [facility] Calcium [Mass/volume] in Serum or Plasma 9.5 MG/DL 8.4 - 10.2 [facility] Bilirubin.total [Mass/volume] in Serum or Plasma <0.7 MG/DL 0.2 - 1.3 [facility] Alkaline phosphatase [Enzymatic activity/volume] in Serum or Plasma 109 U/L 38 - 126 [facility] Aspartate aminotransferase [Enzymatic activity/volume] in Serum or Plasma 41 U/L 5 - 40 H [facility] Alanine aminotransferase [Enzymatic activity/volume] in Seru m or Plasma 33 U/L 7 - 56 [facility] Anion gap 3 in Serum or Plasma 14.0 mmol/L 8.0 - 16.0 [facility] AGE 29 yrs [facility] al NON-AA GFR >60 mL/min [facility] ital AFR AMER GFR >60 mL/min [facility] Male GFR In terprentation 20-49 [...] >32 mL/min Normal ID Date Data Source [id number] 04/25/2020 11:31:00 PM EDT [facility] Name Value Range Interpretation Code Description Data Renee rce(s) Supporting Document(s) Lipase [Enzymatic activity/volume] in Serum or Plasma 22 U/L 13 - 60 [facility] ID Date Data Source [id number] 04/25/2020 11:16:00 PM EDT [facility] Name Value Range Interpretation Code Description Data Renee rce(s) Supporting Document(s) Prothrombin time (PT) 12.3 SECONDS 11.0 - 15.5 [facility] INR in Platelet poor plasma by Coagulation assay 0.91 0.93 - 1. 23 L [facility] aPTT in Blood by Coagulation assay 28.7 SECONDS 24.8 - 36.7 [facility] \\BLDo\\INR INTERPRETATION\\BLDx\\ Therapeutic range for Coumadin and related oral anticoagulants. - International Normalized Ratio (INR): 2.0 - 3.0 for Venous Thrombosis, Pulmonary Embolus, Tissue heart valves, Acute IL Atrial Fibrillation, Valvular heart disease and recurrent Systemic Embolism. - International Normalized Ratio (INR): 2.5 - 3.5 for Mechanical Prosthetic valve. ID Date Data Source [id number] 04/25/2020 11:31:00 PM EDT [facility] Name Value Range Interpretation Code Description Data Renee rce(s) Supporting Document(s) TROPONIN T <0.01 NG/ML 0.00 - 0.10 [facility] ospital TROPONIN T0.1 ng/ml Recommended as the c linical threshold value forTroponin T. ID Date Data Source [id number] 04/25/2020 11:16:00 PM EDT [facility] Name Value Range Interpretation Code Description Data Renee rce(s) Supporting Document(s) Fibrin D-dimer FEU [Mass/volume] in Platelet poor plasma 0.27 ug /mL 0.27 - 0.50 [facility] ID Date Data Source [id number] 04/25/2020 05:25:55 PM EDT [facility] Name Value Range Interpretation Code Description Data Renee rce(s) Supporting Document(s) Progress Note [facility] FFPAAq1rWmIYEkSp01/IJKxyOXRso9CtOLejJUs0WDsmSGLmM1PgLKT8uA1qGGE0YAxVFcPeUeMzSYV7 [facility] [file] [id number]= ID Date Data Source [id number] 04/24/2020 08:05:00 AM EDT Physicians [facility], [facility] [address] [place] [address]. [address] [place] [id number] [place] [phone] Fax: Bariatrics P : [phone] Signed Patient: Corey Cortez Acct:[id number] Visit Date: 04/24/20 : 1990 Intake Vital [...] interested in the Manjula with Dr. Conklin. Desk Clerks Supervisor Required: No Is patient in pain?: No [...] bypass with Dr. Conklin. Her insurance is [employer] and she will require 6 months of follow-up appointments. Fred reports that she has been obese for greater than 5 years. Her weight today is 258 lb with a BMI of 38.1%. Her health conditions include cardiomyopathy, myoclonic dystrophy, chronic nausea. She has extensive surgical history including cholecystectomy, hemicolectomy 3 years ago, appendectomy, and . She is currently seeing a five piece expansion maker hand for chronic nausea. Bethreports that she has [...] her cardiomyopathy. 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 We [...] obesity due to excess calories SNOMED Code(s): 935790290 Category: Medical Plan: Fred is a pleasant [...] diseases of the digestive system SNOMED Code(s): 655687880 Category: Medical (3) Myotonic dystrophy: Status: Acute Code(s): G71.11 - Myotonic muscular dystrophy SNOMED Code(s): 176227361 Category: Medical (4) Cardiomyopathy: Status: Acute Code(s): I42.9 - Cardiomyopathy, unspecified SNOMED Code(s): 20743904 Category: Medical (5) S/P laparoscopic cholecystectomy: Status: Acute Code(s): Z90.49 - Acquired absence of other specified parts of digestive tract SNOMED Code(s): 286616226 Category: Surgical (6) H/O right hemicolectomy: Status: Acute Code(s): Z90.49 - Acquired absence of other specified parts of digestive tract SNOMED Code(s): 835998213 Category: Surgical (7) S/P laparoscopic appendectomy: Status: Acute Category: Surgical (8) H/O: hysterectomy: Status: Acute Code(s): Z90.710 - Acquired absence of both cervix and uterus SNOMED Code(s): 975605136 Category: Surgical Problems Did you add a problem (diagnosis code) to the patient?: Yes Medications Patient given information on their new medications: No Coding Level of Care Code 33406 New Patient Level 3 Exam Comprehensive Diagnoses [...] rce(s) Supporting Document(s) ID Date Data Source [id number] 04/14/2020 11:42:47 PM EDT [facility] Name Value Range Interpretation Code Description Data Renee rce(s) Supporting Document(s) Progress Note [facility] PCHRUw6yYqHXWlJr84/DZEsbQQIoi7NgPLloLIv5XUdqZKZcG7IgZJO8xA0nDDC5MZkECkFtSyShDMK4 lbm [file] o= ID Date Data Source [id number] 04/01/2020 03:54:42 PM EDT [facility] Name Value Range Interpretation Code Description Data Renee rce(s) Supporting Document(s) ED Provider Note [facility] QJYUIy6aIjZDMnUb54/KSLbwDKWhx8WwUVrmSLg4NOfiHYMbU5EyYWK1uF1qSTZ1AKrSSsEsMzGbGZWl lbm [file] opGfYLagluIGFfmtknoeG2UqUijCtEWsceWZtqwrsd CErtfNOHqAFcaSrBRBqiKNMJEX/rrRH4FXwndMUB5ukgDkJFZt7QY1ZjTYfaG8OAwsEVLTY0jr82Fdge a1GON4PiHpU4a+IoHqAcwB07VR8eteUm4sLxapNYlqf2OJeHYDN8LrONg9yLdEUpuoilQMTtG5qmReJ1 5ew4w2Td/kJBlcT9j8JHvSthzncYHBhfN/4t0lOEFm sZcdhcM4W8/Yb023Jk9loN9oS7bKJN3R0Q/8LBrcSL4XpNJPRoL4mO44kEXY24GQ+uDZEfEQfXfXWu7l cb1s2E4pZ/sSQ4xZKGpzyByDqigbRluG6x6uNjlyo0vhnVeDTy8XoMlktuIHLs2vtG4p46mbT4d6TG9g RxfMoziq69sTjyjy9KaOPt61j5JDR9xQHxHSPjqRCs 7hryxB8ET9UiGa3eX/2iR++9KljzSdM6c0Uu4K5ltOk+5h8QqD4D7WyB3t6wAWGleIm+OVOhan0iDGfE N9cAHjeXYr9h53yzln6ik1IV7VmbRO5aYNHuPOMZi4AlkZHj2xZ7O18fJuePgjb7Nr6ihC6vds1PiCGK bHuKYUwuZvy6V9dhdziaOdXc+sDuUO621i8wdY1hp8 B8b8AMZqJXfrDGHyXmNxEQdObcNINDCQj9BZoU+cxAGcqpOBC4IznZhidiVeCnDfiL/1oSBkLg0wKHz7 30RrmenrJTp2mxk5KRwa6EqYtfjMoU3DdBbWBISBhsyZXz+DXtf4+p1uqJWxQ0UzEc8obS7Jl8R0HECr 7/features editor+89s3Em7A+av2VgMSgUho8/7GskLFb8UJEnyk [file] ICAgICAgICAgICAgICAgICAgICAgICAgICAgICAgICAgICAgICAgICAgICAgICAgICAgICAgICAgICAg ICAgICANCiAgICAgICAgICAgICAgICAgICAgICAgIC AgICAgICAgICAgICAgICAgICAgICAgICAgICAgICAgICAgICAgICAgICAgICAgICAgICAgICAgICAgIC AgICAgICAgICAgICAgICANCiAgICAgICAgICAgICAgICAgICAgICAgICAgICAgICAgICAgICAgICAgIC AgICAgICAgICAgICAgICAgICAgICAgICAgICAgICAg ICAgICAgICAgICAgICAgICAgICAgICAgICANCiAgICAgICAgICAgICAgICAgICAgICAgICAgICAgICAg ICAgICAgICAgICAgICAgICAgICAgICAgICAgICAgICAgICAgICAgICAgICAgICAgICAgICAgICAgICAg ICAgICAgICANCiAgICAgICAgICAgICAgICAgICAgIC AgICAgICAgICAgICAgICAgICAgICAgICAgICAgICAgICAgICAgICAgICAgICAgICAgICAgICAgICAgIC AgICAgICAgICAgICAgICAgICANCiAgICAgICAgICAgICAgICAgICAgICAgICAgICAgICAgICAgICAgIC AgICAgICAgICAgICAgICAgICAgICAgICAgICAgICAg ICAgICAgICAgICAgICAgICAgICAgICAgICAgICANCiAgICAgICAgICAgICAgICAgICAgICAgICAgICAg ICAgICAgICAgICAgICAgICAgICAgICAgICAgICAgICAgICAgICAgICAgICAgICAgICAgICAgICAgICAg ICAgICAgICAgICANCiAgICAgICAgICAgICAgICAgIC AgICAgICAgICAgICAgICAgICAgICAgICAgICAgICAgICAgICAgICAgICAgICAgICAgICAgICAgICAgIC AgICAgICAgICAgICAgICAgICAgICANCiAgICAgICAgICAgICAgICAgICAgICAgICAgICAgICAgICAgIC AgICAgICAgICAgICAgICAgICAgICAgICAgICAgICAg ICAgICAgICAgICAgICAgICAgICAgICAgICAgICAgICANCiAgICAgICAgICAgICAgICAgICAgICAgICAg ICAgICAgICAgICAgICAgICAgICAgICAgICAgICAgICAgICAgICAgICAgICAgICAgICAgICAgICAgICAg ICAgICAgICAgICAgICANCjw/qYPzR1zbmYVlukI3I7 beUr8UNb2MVW5pb3QpDENwUYuarjBrHjgRZyOnJLQeLtnBZro5VWisMJ0GmLIaQ9HyJ4BkCMscFU1SPT UxANXtlLYgQKLnAYBgZgJ8MXPfNEvaON8OaMWyQKetUOOqPEDtZgHsJUSmFHEfHFSgJSAtRRPJPFEkAJ BjOlQhTYQjPGRrKShjRHKSEJA0TAKxTrMjAKIgHMBy WsPjGMGAXHJ5FBAeAuZrNcRaRXKpBfmuLHZCXHTxOAZtBhOwPuVrPUBtKX4TZHNdA637pwMaQBYETr5+ IZsshlXtTrkUWzK9IUYrr8MzWNk4SD9KNDXxIparv1UpRYuyKGUPCXbsXP1KBPV6NDJ3SCGxOk8VOPKv N658wdUkGd6YKz7HSkXsCH9odb8TWQvvFGKyDisJSi c7CSheOF9PbAWmJOaVSOPDyi13qQKnazMJg8ZlewIxkTRKGWFndUNqOVDgYOQlp1ZqUJWOCTGgsCG2Nu IhQgMpUKHoUQkgBJBUJXrNOuIgF0Uhd3NyZaZ0LFQvJhSjWRjuSCEoYeJeTG28dUntEV1YENKvGZEyKK 58WZT9HOAtMk6JQQHvLyevy3WeIOipEJVRXFagRO1T LAN2JKH0BBRoZj8SSDZpO732tkSxLBPGEnLjF32wpWReASgjLKKNUEc+Ud0UJS2sp6TqGYj8ZTNqLM1u ij1FZJsBMoLcF9MfmHzxUUBtnsLhj44sSMrWQnNkH5Nym0HbLdTeCjYzMWTtW0kPGnWaKVLoWKEaoWuh SG1THsJaC0HjriLuzLT7WoEwPNGWWn1+DQplbmRvYm uKZcG8KQYyh5LoTVd5FH1PFSYdYHu3eWGcVPTyKCTcruoqBLLmVl83GPJkMqgyIJX7romfswKGLFBpQ6 9tueuqBVUyCUVqSE24AuJmBjPpIDJ0DFCkAJ4uFHpcOA6BMJF7EPtsMkHgVHAZRV1FAAksGJX6KAchfz FdvHDaGNxjDR8KCQSuebDiHMMkVIHSADraST3MbmN4 PWI9ESEwPs4IPMBnGcC6iTU9KYPxYKTZBy8+DHpoebWcSnnSHrAmYDLpg7NkZYf8EA3ECQCmICp4yDHz PJOcHv39QOJuGmudBLAfI6dvSGQTrl6fhNPwGLUASKH5BVzwFP7vNLWrVNS0CkZ3ZESUEX3ZRSJaAZCo eFFdRXSwFAHkTbIyXOuyPEIlMRBxAG62nLjzTH9UCW KiFLQdTQ14ZLM2EQSiTk9BJOJmLFHcztQ9JKWaVKFPSdMhN52slILiXqOkCFOCYIw+Pk7ECR0ep8FyPL k4IWRxWT3tum1JENsODaTpL5QxpSuoFKWREB3amRLtPBN9KM5dV5ddblAFJIWmM0uiO02tQGNVBVL3JN vaXP4tOBLgAUK1PfV8ZHOPBI9HCOQcKCPmjCOfGJQj RGOnEfZsNGtdSMTcXwI5KY15hJytOQ1OSSLaGDYlWH88QWV2SYOvEx7SRHEqYPYakdN3XDStLIFIMrVj V60vtJXeXyIrVBJRJQj+Jf0JJD4ix5SgTYm5KsTbPZ9qvm7RRLkTLuTcT8CzwHueAVQDUO6viPFcYRA6 AZ2cF1kfglVQIZHqU4ziK94bLJCUWCX7DUpuSL6ySJ DtLRG1QuGdMZYBVY1PDFCzNSKxaBNpTWYsXBTmBmKcPIbcGUXsTnKfYW94hPaeIZ9LMLCwKOCxPG35BJ H1GFGpDu9CJAWdRDVujbL6REHiXEOZNuDyP28tgSPuHuWxFSZPYGq+Bq8WRD2bi3GiQZy5ZeKiLH2iqp 5ZSCmXJtJwB9YifBkqKCCXDZ6mzYYbQXW0LLufdtX4 AT7uClEjDI3jQOIDZRD9LGshOA4tNQEgIKJ7TjI3YIQOAK4AIBFqJUKnoEAsKDCwJQWuSxEeTGlfIFCn OPY4FX08fUiaCS3ZYWLeAVAcRH28XZQ8FECfBl3FPONuHTJgivH3EaNwZEZXItXjX77qeHLsDfQgVEKK DQo+Xw3WZQ3gm2LnRMd9HPUtBE2oze0ASLvBQxTjH1 DqgRxpKGCEDZNllRWmTFULx4AqvrZgfVDRjMSgo1ijfcMFYNeotBBzobscy2fuZRKWAlAazHQ0VvSuPv ZeNFScGtl6GUHXJEqZZiOlI0Pfu3DpRzAtNnJxMWVnS5cKFlIiKEG0ByUsiNoeAT6OBtAaR3KiypRlqJ A7UzFpYVBHYeTcO5PqUUCeVlIaDOFNWQq+Wb2DKB8p t2QpDJp1PPXvMD9rrc6XCKhAMwEtB3G8kQFrT1Y2QHceOh4ZPQDsAGIqXGEoICFWCAluPB0JZP7dnnC6 AA1ChLNpIGHlVHGxbDBwORe0K33pyDVyLTmuPI7YWST+Ivett+Lh2JUYRhZUVsQIBkUyQoQBSOTiTnC2Qi L3BXg0ZcU8ShVL66dFjgnjZjBZhxRE3SVT4jQQGiKG TQDR5HuACfdT0vosU6JqVeEBILPhJhN43cpUQuLRXxNZK0XBCoWy6WUUNlZ1SdfkPdgJafwdJmAXUlGU MIMS2HNJiswaDruOFlmQdpBC89wZurSA1LIz0FWvWhJF4vtl3AuRCyTe2BCUI8Rz2WWFZbISSdNEZcYA S4JXZsGiCaNQmpALHhZGBrQRR2GUYdYFNhCG6WUzBn SVKhXcjnXPPbZTLxZJJkku1BMDAqNKO4DSl7CuPsXDFxUANhZLkkAHZsMVJvGZP9MBBpYUNiIT2SJuRq OCWtXJPdKDMnNKKhTUHpof5FUXSiWBZgFkW5WLCmUSKwOXUzIZcdHBQjLRH5WaOkTEVoEBVgHS2XFpPo KLItGOc4WeOdTBHtVAEbta9YQZBzJNQtCHX9WBRpUY TaJHZiKSdvWUKyXLFnYAM1ZYUfKVLoSX0XUjXmTWHsGKW9GOfqUGAbOXLrmm3VZHSvIZEvZmr3FROhYG GmBHGcLMygXNAdQWC5DpxhDCZbDIAbGF5KYhRwFEKiHSw7AAthMWHlFBGkht0MOAWuZNCoWFCrJWOlAA EpRAZyXLbpMNDmFVDgHeN6LFRdRPOxFV7VKtGiCHJd OuBqBCQcWMEsKUQwpf0SRTPoFDWnKGIcAtGiJUJhLWKyBHzfMDReJBB7LZV2QVZeQKQzIT8NEpIcKWFj AqqzCXSrYWYeIRMcuz4DTZWnCHYxXRJ9KlVfLSZrCNKkAYqyGLNhFBYoEyx5TTLbNKMqUU0GHoTkENCp GsS1QnUbIHZdKZNizk6CLMYaDSTpSaoaOeKiWOEbAV EvSAfwOWErSEC6Krt3NOHoQDPrUM9GNyXnJCBpNel2NQQjTDHkPDVgop3ANVVbKWV3VZP1FgHkDEKwFG CwJWfnOYMrGCArXRx4SYSnQXPvIN9WJkFfQZCnLVWiAzMkKWLvMBKsmw5QHIWcCAM4FUY9JLWkNDUaTW HxLNroPXGvEMF1JJgeNNQyECUsRH0GSnCdFLDpONc3 HYyhVIFtUXElil3XNKDvFLL8RDimOASbGVDmUHIhYDzrXQBsXZMwXYUhDLLrANHdKM6DPrNjEAKjNFD1 QWTbXMKcRYBfgs4VVPPzCGR0XQX1BJVmSXFaAJWxUQpvXJArMTMyFkRwGSPqSMUvGK5ZMlFpGNKpDATq ZdYxTZIwBVQrqn1UTFZlHEY6CwHoIxJkLYBgGROpYF ifDALhAWSwBzMaDSLrETGtJO0CXiPcTIQzYvKfQXBiFDLdGLNbra6NMSKbPNM5WQE2UWGcSNZtITTyNV xnWVNoDFU3Rll2KUCxPQSlLZ7BGrBaCZYgGqF3UkYkOYAsNXQwqg9GKPMbPHH1TLX5UIHnXGRtUYCvAF otPLQjUVT1IBS6QHIwUOMmRR3FGoXjCITjYzMmFQTl NHKpGBVewl3TYQHjGGH6ZrL8FNDkXTKdXMSaUUofESDsWXN6XyW6ZFXeKJBjNL6JVxXmZHTiHet0VPBp ECCtBLKrif6RWQPwIVT7ThN1NrTsIARqSGUiMJrcTBOxTHF0OxX6SGNkQJDqTK5SXuCcVKOlWty0NSCc ZUJbHJHtuq0XTYBeUPA3WWz0DWAbRMBiYWCsLGfdOC TzBVH6ZUH0FHDjRPGyOX3UUfTxBMUuDgP5QsOyVODmMLOsvc7UVOBvLHQ1VQW2YsAbOWSmVUQiFOdeBB QsZEwrPtG0EMBiKMWkZO0FCqYfHZWvViUqVSqqXVNgWWKdjy7GFIFzPLY8ZMH1MMPhFRYdPDCcINmwZT HcZIooFtCkXIIzVMRzZI8MJeJeLFZmOhR1EYogRPBn AEAjug4HPGEcAVI7RpS3FWQmUYWtSUQlTWjuTDQuADmdDeG1ZWTnVUOdDJ0SObHsPWUaMwI3ZaKaKHNw TXEwnk5PvQVyjVazid1HHZjEQc4KnCtwCZY8YItbQw2owCD8MIUzCMASPf2OjwAkSCHuRDGLOLjmBTYf WKS9CZT0ZUH7FUhcUTJsOmI2UwfiNJtzXGMrYOZ7MB ikYaT3XgRtTqtqLUtvIBY3D9RlNMGlIYMcW0LcQ5R6CrT8Z9D+YY3lOQo+Kv4Bz8RnmcG3xfDdESh5Lt J0Vo7XBHRHU5XUSr== ID Date Data Source [id number] 03/30/2020 08:54:00 AM EDT [facility] Name Value Range Interpretation Code Description Data Renee rce(s) Supporting Document(s) BG FASTING 84 mg/dL 70-100 [facility] CRP 0.30 mg/dL 0.00-0.30 [facility] ID Date Data Source [id number] 03/30/2020 08:54:00 AM EDT [facility] Name Value Range Interpretation Code Description Data Renee rce(s) Supporting Document(s) ESR 24 mm/hr 0-20 [facility] HCT 41.8 % 36.0-47.0 [facility] HGB 13.9 g/dL 12.0-15.5 [facility] MCH 33.3 G/DL pg 32.0-36.5 N [facility] MCHC 32.4 PG % 27.0-33.0 [facility] PLATELETS 171 10 10*3/mm3 150-450 [facility] RBC 4.29 10 10*6/mm3 4.00-5.40 [facility] RDW 13.0 % 11.5-14.5 [facility] WBC TOTAL 4.5 4.0-10.0 [facility] ID Date Data Source [id number] 03/29/2020 04:42:25 PM EDT [facility] Name Value Range Interpretation Code Description Data Renee rce(s) Supporting Document(s) Progress Note [facility] NCBZQj6gGoKCYrRu44/CXBtqXODqd1SmWMfmYPd7COrdQWAoV7UaWTX5xP5uNFC1YPsRXpKzYtEqYUAh lbm HsCfbAAxZtYOUuLyvPBxAfCPwiLwqtrDPzPE7TbNW9ZDNcP50qGEAiXTPqO8ZaNAIqKyT+Va7GMCEdxF ZhTV7CKaqD4R8Wu9zKNI7TRd3HQLUXFXbVVxXnhCsKD3Rmk8LupbySocUZJPZoiMMHwYou867sYH0rio T9hDfFnCitoSeexEidb+/pGShV/ftxlU1WwkGvqe/H i5He3aTI/rR8opqGaf8tO/9qV0AZfBM2RkTX5zNrs19bl339groDUBKsZ9TmfRzXF48nZgfBi2/eDR4m 6ey1+pGyTFPika34rHL+7PXT4iVx/MVbo6Y3O+oFycuvN1OVXT49Mo9p6MqCKeC9rfk1EnjwHymUcqyc vxL58NGxCQHQUzJ40hL9BF/lOeDRl6S2EFUxTvlwN6 OAXrdGaU2k8RYDIpEIGxsneukzFUVQ/zjlawlg3l20SjiilWvPc7a06USem1mHSrzxDTJTh2Fe322YRz B/4iTnoOoeCF3qLMU0WKiHy7fP1hZaPqc9nO6QRpD2kU+M1Gh190xB85X4MnaAuMWaVOtEL3ma0FXEp5 BYy5RhjkD5XNBAGexhzJo4PmsCB8gmKbJNfMZUs4Zj he4fGdwJxnoHB+lE7d/hz9pup3zjWXBAloF8h6S2hvudLUyT/88Z9CSM1kaYWMN9z5ukT86ux+Yb2ntW NX3f+ZICTJHQjgGMbBOmtMFj2iik/CdFS5+tjB7rd1diX3bglWz1aeyoK8nFIHLPCxLymZPfeMqo3JYl eo1m0NzyBuoKbuWy4j6TmG1sjvNHUbHY9y87sG8MtY C3uZirhvNjuhjmVWze6lXzPfnRw/YsC0AJ5AqJrKvygfpsHKg2Z8ypVSWVZ2XwFZI9Ft7XsAdiGlZ1uy 4vleD3yGMqA8DhR9SzVi1K74+n41i0J47aAX9Q2aMjvs+q88y+8+XJJXxs5uQ5wgZk5ffvOr/+E99 [file] DWM7WYT4UzLdOJ5MIw1IRbD9RPT0tCEhGm4UVMN9ZdALApOeHK7PHNx= Procedure Social History Code Duration Value Status Description Data Source(s ) Alcohol intake 03/22/2021 12:00:00 AM EDT Current non-d jasmyn of alcohol (finding) completed Current non-drinker of alcohol (finding) [facility] Alcohol intake 03/15/2021 12:00:00 AM EDT Current non-d jasmyn of alcohol (finding) completed Current non-drinker of alcohol (finding) [facility] Tobacco use and exposure 03/15/2021 12:00:00 AM EDT Never used co mpleted Never used [facility] Smoking 03/15/2021 12:00:00 AM EDT Never smoker completed Never s moker [facility] Alcohol intake 03/11/2021 12:00:00 AM EDT Lifetime non-drinker (finding) completed Lifetime non-drinker (finding) [facility] Tobacco use and exposure 03/11/2021 12:00:00 AM EDT Never used co mpleted Never used [facility] Smoking 03/11/2021 12:00:00 AM EDT Never smoker completed Never s [facility] 02/26/2021 10:40:58 AM EDT Never smoker completed Never [facility] Smoking 02/26/2021 10:40:00 AM EDT Never smoker completed Never [facility] 02/25/2021 10:45:00 PM EDT Never smoker completed Never [facility] Smoking 02/25/2021 10:45:00 PM EDT Never smoker completed Never [facility] Alcohol intake 02/25/2021 12:00:00 AM EDT Current non-d jasmyn of alcohol (finding) completed Current non-drinker of alcohol (finding) [facility] Alcohol intake 01/03/2021 12:00:00 AM EDT Current non-d jasmyn of alcohol (finding) completed Current non-drinker of alcohol (finding) [facility] Alcohol intake 10/23/2020 12:00:00 AM EDT Current non-d jasmyn of alcohol (finding) completed Current non-drinker of alcohol (finding) [facility] Alcohol intake 10/09/2020 12:00:00 AM EDT Current non-d jasmyn of alcohol (finding) completed Current non-drinker of alcohol (finding) [facility] Alcohol intake 10/03/2020 12:00:00 AM EDT Current non-d jasmyn of alcohol (finding) completed Current non-drinker of alcohol (finding) [facility] Alcohol intake 09/25/2020 12:00:00 AM EST Current non-d jasmyn of alcohol (finding) completed Current non-drinker of alcohol (finding) [facility] Alcohol intake 09/21/2020 12:00:00 AM EST Current non-d jasmyn of alcohol (finding) completed Current non-drinker of alcohol (finding) [facility] Alcohol intake 09/19/2020 12:00:00 AM EST Current non-d jasmyn of alcohol (finding) completed Current non-drinker of alcohol (finding) [facility] 09/18/2020 10:12:53 AM EST Never Smoker completed Never S moker [facility] 09/18/2020 10:12:53 AM EST Never Smoker completed Never S moker [facility] Smoking 09/18/2020 10:12:00 AM EST Never smoked tobacco (findi ng) completed Never smoked tobacco (finding) [facility] Smoking 09/18/2020 10:12:00 AM EST Never smoked tobacco (findi ng) completed Never smoked tobacco (finding) [facility] 08/24/2020 10:30:56 AM EST Never Smoker completed Never S moker [facility] 08/24/2020 10:30:56 AM EST Never Smoker completed Never S moker [facility] Smoking 08/24/2020 10:30:00 AM EST Never smoked tobacco (findi ng) completed Never smoked tobacco (finding) [facility] Smoking 08/24/2020 10:30:00 AM EST Never smoked tobacco (findi ng) completed Never smoked tobacco (finding) [facility] 07/27/2020 10:35:00 AM EST Never Smoker completed Never S moker [facility] Smoking 07/27/2020 10:35:00 AM EST Never smoked tobacco (findi ng) completed Never smoked tobacco (finding) [facility] 07/27/2020 10:35:00 AM EST Never Smoker completed Never S moker [facility] Smoking 07/27/2020 10:35:00 AM EST Never smoked tobacco (findi ng) completed Never smoked tobacco (finding) [facility] 07/18/2020 03:04:06 PM EST Never Smoker completed Never S moker [facility] 07/18/2020 03:04:06 PM EST Never Smoker completed Never S moker [facility] Smoking 07/18/2020 03:04:00 PM EST Never smoked tobacco (findi ng) completed Never smoked tobacco (finding) [facility] Smoking 07/18/2020 03:04:00 PM EST Never smoked tobacco (findi ng) completed Never smoked tobacco (finding) [facility] 06/18/2020 12:00:00 AM EST Current non-d jasmyn of alcohol (finding) completed Current non-drinker of alcohol (finding) [facility] 06/12/2020 09:57:06 AM EST Never Smoker completed Never S moker [facility] 06/12/2020 09:57:06 AM EST Never Smoker completed Never S moker [facility] 06/12/2020 09:57:06 AM EST Never Smoker completed Never S moker [facility] 06/12/2020 09:57:06 AM EST Never Smoker completed Never S moker [facility] Smoking 06/12/2020 09:57:00 AM EST Never smoked tobacco (findi ng) completed Never smoked tobacco (finding) [facility] Smoking 06/12/2020 09:57:00 AM EST Never smoked tobacco (findi ng) completed Never smoked tobacco (finding) [facility] Smoking 06/12/2020 09:57:00 AM EST Never smoked tobacco (findi ng) completed Never smoked tobacco (finding) [facility] Smoking 06/12/2020 09:57:00 AM EST Never smoked tobacco (findi ng) completed Never smoked tobacco (finding) [facility] 05/15/2020 10:43:00 AM EDT Never Smoker completed Never S moker [facility] Smoking 05/15/2020 10:43:00 AM EDT Never smoked tobacco (findi ng) completed Never smoked tobacco (finding) [facility] Alcohol intake 05/02/2020 12:00:00 AM EDT Current non-d jasmyn of alcohol (finding) completed Current non-drinker of alcohol (finding) [facility] 04/24/2020 08:16:48 AM EDT Never Smoker completed Never S moker [facility] Smoking 04/24/2020 08:16:00 AM EDT Never smoked tobacco (findi ng) completed Never smoked tobacco (finding) [facility] 04/13/2020 12:46:00 PM EDT Never Smoker completed Never S moker [facility] 04/13/2020 12:46:00 PM EDT No completed No [facility] 04/13/2020 12:46:00 PM EDT No completed No [facility] 04/13/2020 12:46:00 PM EDT Never Smoker completed Never S moker [facility] 04/13/2020 12:46:00 PM EDT No completed No [facility] 04/13/2020 12:46:00 PM EDT No completed No [facility] 04/13/2020 12:46:00 PM EDT Never Smoker completed Never S moker [facility] 04/13/2020 12:46:00 PM EDT No completed No [facility] 04/13/2020 12:46:00 PM EDT No completed No [facility] 04/13/2020 12:46:00 PM EDT Never Smoker completed Never S moker [facility] 04/13/2020 12:46:00 PM EDT No completed No [facility] 04/13/2020 12:46:00 PM EDT No completed No [facility] 04/13/2020 12:46:00 PM EDT Never Smoker completed Never S moker [facility] 04/13/2020 12:46:00 PM EDT No completed No [facility] 04/13/2020 12:46:00 PM EDT No completed No [facility] 04/13/2020 12:46:00 PM EDT Never Smoker completed Never S moker [facility] 04/13/2020 12:46:00 PM EDT No completed No [facility] 04/13/2020 12:46:00 PM EDT No completed No [facility] 04/13/2020 12:46:00 PM EDT Never Smoker completed Never S moker [facility] 04/13/2020 12:46:00 PM EDT No completed No [facility] 04/13/2020 12:46:00 PM EDT No completed No [facility] 04/13/2020 12:46:00 PM EDT Never Smoker completed Never S moker [facility] 04/13/2020 12:46:00 PM EDT No completed No [facility] 04/13/2020 12:46:00 PM EDT No completed No [facility] 04/13/2020 12:46:00 PM EDT Never Smoker completed Never S moker [facility] 04/13/2020 12:46:00 PM EDT No completed No [facility] 04/13/2020 12:46:00 PM EDT No completed No [facility] 04/13/2020 12:46:00 PM EDT Never Smoker completed Never S moker [facility] 04/13/2020 12:46:00 PM EDT No completed No [facility] 04/13/2020 12:46:00 PM EDT No completed No [facility] 04/13/2020 12:46:00 PM EDT Never Smoker completed Never S moker [facility] 04/13/2020 12:46:00 PM EDT No completed No [facility] 04/13/2020 12:46:00 PM EDT No completed No [facility] 04/13/2020 12:46:00 PM EDT Never Smoker completed Never S moker [facility] 04/13/2020 12:46:00 PM EDT No completed No [facility] 04/13/2020 12:46:00 PM EDT No completed No [facility] 04/13/2020 12:46:00 PM EDT Never Smoker completed Never S moker [facility] 04/13/2020 12:46:00 PM EDT No completed No [facility] 04/13/2020 12:46:00 PM EDT No completed No [facility] 04/13/2020 12:46:00 PM EDT Never Smoker completed Never S moker [facility] 04/13/2020 12:46:00 PM EDT No completed No [facility] 04/13/2020 12:46:00 PM EDT No completed No [facility] Vital Signs ID Date Data Source UNK Name Value Range Interpretation Code Description Data Source(s) Body surface area Derived from formula 2.36 m2 2.36 m2 [facility] ([facility]) Body weight 123.946 kg 123.946 kg [facility] ([facility]) [place] body weight 145 [lb_av] 145 [lb_av] [facility] ([facility]) Body mass index (BMI) [Ratio] 40.3 kg/m2 40.3 k g/m2 [facility] ([facility]) Body weight 273.25 [lb_av] 273.25 [lb_av] [facility] ([facility]) Body height 69 [in_i] 69 [in_i] [facility] ([facility]) 5'9" Body temperature 98.2 [degF] 98.2 [degF] [facility] ([facility] ) Body mass index (BMI) [Ratio] 37.4 kg/m2 37.4 k g/m2 [facility] ([facility]) Body weight 268.12 [lb_av] 268.12 [lb_av] [facility] ([facility]) Body height 71 [in_i] 71 [in_i] [facility] ([facility]) 5'11" Body temperature 96.7 [degF] 96.7 [degF] [facility] ([facility]) Body surface area Derived from formula 2.34 m2 2.34 m2 [facility] ([facility]) Body weight 122.018 kg 122.018 kg [facility] ([facility]) [place] body weight 145 [lb_av] 145 [lb_av] [facility] ([facility]) Body mass index (BMI) [Ratio] 39.7 kg/m2 39.7 k g/m2 [facility] Body weight 269.00 [lb_av] 269.00 [lb_av] [facility] ([facility]) Body height 69 [in_i] 69 [in_i] [facility] ([facility]) 5'9" Body temperature 98.3 [degF] 98.3 [degF] [facility] ([facility]) Heart rate 71 /min 71 /min [facility] ([facility]) Diastolic blood pressure 73 mm[Hg] 73 mm[Hg] [facility] ([facility]) Systolic blood pressure 108 mm[Hg] 108 mm[Hg] [facility] ([facility]) Diastolic blood pressure 63 mm[Hg] 63 mm[Hg] [facility] ([facility]) Body weight 4320 [oz_av] 4320 [oz_av] [facility] ([facility]) Systolic blood pressure 96 mm[Hg] 96 mm[Hg] [facility] ([facility]) Systolic blood pressure 98 mm[Hg] 98 mm[Hg] [facility] ([facility]) Body mass index (BMI) [Ratio] 38.7 kg/m2 38.7 k g/m2 [facility] ([facility]) Body height 70 [in_i] 70 [in_i] [facility] ([facility]) Diastolic blood pressure 68 mm[Hg] 68 mm[Hg] [facility] ([facility]) Heart rate 71 /min 71 /min [facility] Diastolic blood pressure 75 mm[Hg] 75 mm[Hg] [facility] Systolic blood pressure 116 mm[Hg] 116 mm[Hg] [facility] Oxygen saturation in Arterial blood by Pulse oximetry 98 % 98 % [facility] Respiratory rate 12 /min 12 /min [facility] Body temperature 36.72 Karina 36.72 Karina [facility] Body mass index (BMI) [Ratio] 37.30 kg/m2 37.30 kg/m2 [facility] Body weight 114.579 kg 114.579 kg [facility] Body height 175.3 cm 175.3 cm [facility] Body weight 4256 [oz_av] 4256 [oz_av] [facility] ([facility]) Systolic blood pressure 106 mm[Hg] 106 mm[Hg] [facility] ([facility]) Body mass index (BMI) [Ratio] 38.2 kg/m2 38.2 k g/m2 [facility] ([facility]) Body height 70 [in_i] 70 [in_i] [facility] ([facility]) Diastolic blood pressure 74 mm[Hg] 74 mm[Hg] [facility] ([facility]) Body weight 4256 [oz_av] 4256 [oz_av] [facility] ([facility]) Systolic blood pressure 106 mm[Hg] 106 mm[Hg] [facility] ([facility]) Body mass index (BMI) [Ratio] 38.2 kg/m2 38.2 k g/m2 [facility] ([facility]) Body height 70 [in_i] 70 [in_i] [facility] ([facility]) Diastolic blood pressure 74 mm[Hg] 74 mm[Hg] [facility] ([facility]) Body height 70 [in_i] 70 [in_i] [facility] ([facility]) Body height 70 [in_i] 70 [in_i] [facility] ([facility]) Body height 70 [in_i] 70 [in_i] [facility] ([facility]) Body weight 4260 [oz_av] 4260 [oz_av] [facility] ([facility]) Systolic blood pressure 106 mm[Hg] 106 mm[Hg] [facility] ([facility]) Body mass index (BMI) [Ratio] 38.2 kg/m2 38.2 k g/m2 [facility] ([facility]) Body height 70 [in_i] 70 [in_i] [facility] ([facility]) Diastolic blood pressure 70 mm[Hg] 70 mm[Hg] [facility] ([facility]) Body weight 4260 [oz_av] 4260 [oz_av] [facility] ([facility]) Systolic blood pressure 106 mm[Hg] 106 mm[Hg] [facility] ([facility]) Body mass index (BMI) [Ratio] 38.2 kg/m2 38.2 k g/m2 [facility] ([facility]) Body height 70 [in_i] 70 [in_i] [facility] ([facility]) Diastolic blood pressure 70 mm[Hg] 70 mm[Hg] [facility] ([facility]) Body weight 4260 [oz_av] 4260 [oz_av] [facility] ([facility]) Systolic blood pressure 106 mm[Hg] 106 mm[Hg] [facility] ([facility]) Body mass index (BMI) [Ratio] 38.2 kg/m2 38.2 k g/m2 [facility] ([facility]) Body height 70 [in_i] 70 [in_i] [facility] ([facility]) Diastolic blood pressure 70 mm[Hg] 70 mm[Hg] [facility] ([facility]) Body weight 4260 [oz_av] 4260 [oz_av] [facility] ([facility]) Systolic blood pressure 106 mm[Hg] 106 mm[Hg] A [facility] ([facility]) Body mass index (BMI) [Ratio] 38.2 kg/m2 38.2 k g/m2 [facility] ([facility]) Body height 70 [in_i] 70 [in_i] [facility] ([facility]) Diastolic blood pressure 70 mm[Hg] 70 mm[Hg] [facility] ([facility]) Body height 70 [in_i] 70 [in_i] [facility] ([facility]) Body height 70 [in_i] 70 [in_i] [facility] ([facility]) Body height 70 [in_i] 70 [in_i] [facility] ([facility]) Body height 70 [in_i] 70 [in_i] [facility] ([facility]) Body height 70 [in_i] 70 [in_i] [facility] ([facility]) Body height 70 [in_i] 70 [in_i] [facility] ([facility]) Body height 70 [in_i] 70 [in_i] [facility] ([facility]) Body height 70 [in_i] 70 [in_i] [facility] ([facility]) Body height 70 [in_i] 70 [in_i] [facility] ([facility]) Body height 70 [in_i] 70 [in_i] [facility] ([facility]) Body height 70 [in_i] 70 [in_i] [facility] ([facility]) Body height 70 [in_i] 70 [in_i] [facility] ([facility]) Body height 70 [in_i] 70 [in_i] [facility] ([facility]) Body mass index (BMI) [Ratio] 37.5 kg/m2 37.5 k g/m2 [facility] Body weight 115.21 kg 115.21 kg [facility] Body height 175.26 cm 175.26 cm [facility] Body mass index (BMI) [Ratio] 37.5 kg/m2 37.5 k g/m2 [facility] Body weight 115.21 kg 115.21 kg [facility] Body height 175.26 cm 175.26 cm [facility] Body weight 4080 [oz_av] 4080 [oz_av] [facility] ([facility]) Systolic blood pressure 111 mm[Hg] 111 mm[Hg] [facility] ([facility]) Body mass index (BMI) [Ratio] 36.6 kg/m2 36.6 k g/m2 [facility] ([facility]) Body height 70 [in_i] 70 [in_i] [facility] ([facility]) Diastolic blood pressure 73 mm[Hg] 73 mm[Hg] [facility] ([facility]) Body weight 4080 [oz_av] 4080 [oz_av] [facility] ([facility]) Systolic blood pressure 111 mm[Hg] 111 mm[Hg] [facility] ([facility]) Body mass index (BMI) [Ratio] 36.6 kg/m2 36.6 k g/m2 [facility] ([facility]) Body height 70 [in_i] 70 [in_i] [facility] ([facility]) Diastolic blood pressure 73 mm[Hg] 73 mm[Hg] [facility] ([facility]) Body weight 4080 [oz_av] 4080 [oz_av] [facility] ([facility]) Systolic blood pressure 111 mm[Hg] 111 mm[Hg] A [facility] ([facility]) Body mass index (BMI) [Ratio] 36.6 kg/m2 36.6 k g/m2 [facility] ([facility]) Body height 70 [in_i] 70 [in_i] [facility] ([facility]) Diastolic blood pressure 73 mm[Hg] 73 mm[Hg] [facility] ([facility]) Body weight 4080 [oz_av] 4080 [oz_av] [facility] ([facility]) Systolic blood pressure 111 mm[Hg] 111 mm[Hg] [facility] ([facility]) Body mass index (BMI) [Ratio] 36.6 kg/m2 36.6 k g/m2 [facility] ([facility]) Body height 70 [in_i] 70 [in_i] [facility] ([facility]) Diastolic blood pressure 73 mm[Hg] 73 mm[Hg] [facility] ([facility]) Body weight 4080 [oz_av] 4080 [oz_av] [facility] ([facility]) Systolic blood pressure 111 mm[Hg] 111 mm[Hg] A [facility] ([facility]) Body mass index (BMI) [Ratio] 36.6 kg/m2 36.6 k g/m2 [facility] ([facility]) Body height 70 [in_i] 70 [in_i] [facility] ([facility]) Diastolic blood pressure 73 mm[Hg] 73 mm[Hg] [facility] ([facility]) Body weight 4080 [oz_av] 4080 [oz_av] [facility] ([facility]) Systolic blood pressure 111 mm[Hg] 111 mm[Hg] [facility] ([facility]) Body mass index (BMI) [Ratio] 36.6 kg/m2 36.6 k g/m2 [facility] ([facility]) Body height 70 [in_i] 70 [in_i] [facility] ([facility]) Diastolic blood pressure 73 mm[Hg] 73 mm[Hg] [facility] ([facility]) Body weight 4080 [oz_av] 4080 [oz_av] [facility] ([facility]) Systolic blood pressure 111 mm[Hg] 111 mm[Hg] [facility] ([facility]) Body mass index (BMI) [Ratio] 36.6 kg/m2 36.6 k g/m2 [facility] ([facility]) Body height 70 [in_i] 70 [in_i] [facility] ([facility]) Diastolic blood pressure 73 mm[Hg] 73 mm[Hg] [facility] ([facility]) Body weight 4080 [oz_av] 4080 [oz_av] [facility] ([facility]) Systolic blood pressure 111 mm[Hg] 111 mm[Hg] [facility] ([facility]) Body mass index (BMI) [Ratio] 36.6 kg/m2 36.6 k g/m2 [facility] ([facility]) Body height 70 [in_i] 70 [in_i] [facility] ([facility]) Diastolic blood pressure 73 mm[Hg] 73 mm[Hg] [facility] ([facility]) Body height 70 [in_i] 70 [in_i] [facility] ([facility]) Body height 70 [in_i] 70 [in_i] [facility] ([facility]) Body height 70 [in_i] 70 [in_i] [facility] ([facility]) Body height 70 [in_i] 70 [in_i] [facility] ([facility]) Body height 70 [in_i] 70 [in_i] [facility] ([facility]) Body height 70 [in_i] 70 [in_i] [facility] ([facility]) Body height 70 [in_i] 70 [in_i] [facility] ([facility]) Body height 70 [in_i] 70 [in_i] [facility] ([facility]) Body height 70 [in_i] 70 [in_i] [facility] ([facility]) Body mass index (BMI) [Ratio] 37.6 kg/m2 37.6 k g/m2 [facility] Body weight 115.66 kg 115.66 kg [facility] Body height 175.26 cm 175.26 cm [facility] Body mass index (BMI) [Ratio] 37.6 kg/m2 37.6 k g/m2 [facility] Body weight 115.66 kg 115.66 [facility] Body height 175.26 cm 175.26 cm [facility] Body mass index (BMI) [Ratio] 37.6 kg/m2 37.6 k g/m2 [facility] Body weight 115.66 kg 115.66 kg [facility] Body weight 115.66 kg 115.66 kg [facility] Body height 175.26 cm 175.26 cm [facility] Body height 175.26 cm 175.26 cm [facility] Body mass index (BMI) [Ratio] 37.6 kg/m2 37.6 k g/m2 [facility] Body weight 115.66 kg 115.66 kg [facility] Body height 175.26 cm 175.26 cm [facility] Body mass index (BMI) [Ratio] 37.6 kg/m2 37.6 k g/m2 [facility] Body weight 115.66 kg 115.66 kg [facility] Body height 175.26 cm 175.26 cm [facility] Body mass index (BMI) [Ratio] 37.6 kg/m2 37.6 k g/m2 [facility] Body weight 115.66 kg 115.66 kg [facility] Body height 175.26 cm 175.26 cm [facility] Body mass index (BMI) [Ratio] 37.6 kg/m2 37.6 k g/m2 [facility] Body weight 115.66 kg 115.66 kg [facility] Body height 175.26 cm 175.26 cm [facility] Body mass index (BMI) [Ratio] 37.6 kg/m2 37.6 k g/m2 [facility] Body mass index (BMI) [Ratio] 37.6 kg/m2 37.6 k g/m2 [facility] Body weight 115.66 kg 115.66 kg [facility] Body height 175.26 cm 175.26 cm [facility] Body mass index (BMI) [Ratio] 37.6 kg/m2 37.6 k g/m2 [facility] Body weight 115.66 kg 115.66 kg [facility] Body height 175.26 cm 175.26 cm [facility] Body mass index (BMI) [Ratio] 37.6 kg/m2 37.6 k g/m2 [facility] Body weight 115.66 kg 115.66 kg [facility] Body height 175.26 cm 175.26 cm [facility] Body mass index (BMI) [Ratio] 37.6 kg/m2 37.6 k g/m2 [facility] Body weight 115.66 kg 115.66 kg [facility] Body height 175.26 cm 175.26 cm [facility] Body height 175.26 cm 175.26 cm [facility] Body mass index (BMI) [Ratio] 38.4 kg/m2 38.4 k g/m2 [facility] Body weight 117.93 kg 117.93 kg [facility] Body height 175.26 cm 175.26 cm [facility] Body mass index (BMI) [Ratio] 38.4 kg/m2 38.4 k g/m2 [facility] Body weight 117.93 kg 117.93 kg [facility] Body height 175.26 cm 175.26 cm [facility] Body mass index (BMI) [Ratio] 38.4 kg/m2 38.4 k g/m2 [facility] Body weight 117.93 kg 117.93 kg [facility] Body mass index (BMI) [Ratio] 38.4 kg/m2 38.4 k g/m2 [facility] Body weight 117.93 kg 117.93 kg [facility] Body height 175.26 cm 175.26 cm [facility] Body weight 4086 [oz_av] 4086 [oz_av] [facility] ([facility]) Systolic blood pressure 111 mm[Hg] 111 mm[Hg] [facility] ([facility]) Body mass index (BMI) [Ratio] 36.6 kg/m2 36.6 k g/m2 [facility] ([facility]) Body height 70 [in_i] 70 [in_i] [facility] ([facility]) Diastolic blood pressure 76 mm[Hg] 76 mm[Hg] [facility] ([facility]) Body weight 4086 [oz_av] 4086 [oz_av] [facility] ([facility]) Systolic blood pressure 111 mm[Hg] 111 mm[Hg] [facility] ([facility]) Body mass index (BMI) [Ratio] 36.6 kg/m2 36.6 k g/m2 [facility] ([facility]) Body height 70 [in_i] 70 [in_i] [facility] ([facility]) Diastolic blood pressure 76 mm[Hg] 76 mm[Hg] [facility] ([facility]) Body weight 4086 [oz_av] 4086 [oz_av] [facility] ([facility]) Systolic blood pressure 111 mm[Hg] 111 mm[Hg] [facility] Body mass index (BMI) [Ratio] 36.6 kg/m2 36.6 k g/m2 [facility] ([facility]) Body height 70 [in_i] 70 [in_i] [facility] ([facility]) Diastolic blood pressure 76 mm[Hg] 76 mm[Hg] [facility] ([facility]) Body weight 4086 [oz_av] 4086 [oz_av] [facility] ([facility]) Body weight 4086 [oz_av] 4086 [oz_av] [facility] ([facility]) Systolic blood pressure 111 mm[Hg] 111 mm[Hg] [facility] ([facility]) Body mass index (BMI) [Ratio] 36.6 kg/m2 36.6 k g/m2 [facility] ([facility]) Body height 70 [in_i] 70 [in_i] [facility] ([facility]) Systolic blood pressure 111 mm[Hg] 111 mm[Hg] [facility] ([facility]) Body mass index (BMI) [Ratio] 36.6 kg/m2 36.6 k g/m2 [facility] ([facility]) Diastolic blood pressure 76 mm[Hg] 76 mm[Hg] [facility] ([facility]) Body height 70 [in_i] 70 [in_i] [facility] ([facility]) Diastolic blood pressure 76 mm[Hg] 76 mm[Hg] [facility] ([facility]) Body weight 4086 [oz_av] 4086 [oz_av] [facility] ([facility]) Body weight 4086 [oz_av] 4086 [oz_av] [facility] ([facility]) Systolic blood pressure 111 mm[Hg] 111 mm[Hg] [facility] ([facility]) Body mass index (BMI) [Ratio] 36.6 kg/m2 36.6 k g/m2 [facility] ([facility]) Body height 70 [in_i] 70 [in_i] [facility] ([facility]) Diastolic blood pressure 76 mm[Hg] 76 mm[Hg] [facility] ([facility]) Systolic blood pressure 111 mm[Hg] 111 mm[Hg] [facility] ([facility]) Body mass index (BMI) [Ratio] 36.6 kg/m2 36.6 k g/m2 [facility] ([facility]) Body height 70 [in_i] 70 [in_i] [facility] ([facility]) Diastolic blood pressure 76 mm[Hg] 76 mm[Hg] [facility] ([facility]) Body weight 4086 [oz_av] 4086 [oz_av] [facility] ([facility]) Systolic blood pressure 111 mm[Hg] 111 mm[Hg] [facility] ([facility]) Body mass index (BMI) [Ratio] 36.6 kg/m2 36.6 k g/m2 [facility] ([facility]) Body height 70 [in_i] 70 [in_i] [facility] ([facility]) Diastolic blood pressure 76 mm[Hg] 76 mm[Hg] [facility] ([facility]) Body weight 4086 [oz_av] 4086 [oz_av] [facility] ([facility]) Systolic blood pressure 111 mm[Hg] 111 mm[Hg] A [facility] ([facility]) Body mass index (BMI) [Ratio] 36.6 kg/m2 36.6 k g/m2 [facility] ([facility]) Body height 70 [in_i] 70 [in_i] [facility] ([facility]) Diastolic blood pressure 76 mm[Hg] 76 mm[Hg] [facility] ([facility]) Body weight 4086 [oz_av] 4086 [oz_av] [facility] [facility] Systolic blood pressure 111 mm[Hg] 111 mm[Hg] A THENA ([facility]) Body mass index (BMI) [Ratio] 36.6 kg/m2 36.6 k g/m2 AZRA ([facility]) Body height 70 [in_i] 70 [in_i] AZRA ([facility]) Diastolic blood pressure 76 mm[Hg] 76 mm[Hg] AZRA ([facility]) Diastolic blood pressure 63 mm[Hg] 63 mm[Hg] [facility] Systolic blood pressure 104 mm[Hg] 104 mm[Hg] O [facility] Oxygen saturation in Arterial blood by Pulse oximetry 96 % 96 % [facility] Respiratory rate 16 /min 16 /min [facility] Heart rate 62 /min 62 /min [facility] Diastolic blood pressure 63 mm[Hg] 63 mm[Hg] [facility] Systolic blood pressure 104 mm[Hg] 104 mm[Hg] [facility] [employer] [facility] in Arterial blood by Pulse oximetry 96 % 96 % [facility] Respiratory rate 16 /min 16 /min [facility] Heart rate 62 /min 62 /min [facility] Diastolic blood pressure 63 mm[Hg] 63 mm[Hg] [facility] Systolic blood pressure 104 mm[Hg] 104 mm[Hg] O [employer] Oxygen saturation in Arterial blood by Pulse oximetry 96 % 96 % [facility] Respiratory rate 16 /min 16 /min [facility] Heart rate 62 /min 62 /min [facility] Diastolic blood pressure 63 mm[Hg] 63 mm[Hg] [facility] Systolic blood pressure 104 mm[Hg] 104 mm[Hg] [facility] Oxygen saturation in Arterial blood by Pulse oximetry 96 % 96 % [facility] Respiratory rate 16 /min 16 /min [facility] Heart rate 62 /min 62 /min [facility] Body temperature 97.3 [degF] 97.3 [degF] [facility] Body temperature 97.3 [degF] 97.3 [degF] [facility] Body temperature 97.3 [degF] 97.3 [degF] [facility] Body temperature 97.3 [degF] 97.3 [degF] [facility] Diastolic blood pressure 63 mm[Hg] 63 mm[Hg] [facility] Systolic blood pressure 104 mm[Hg] 104 mm[Hg] [facility] Oxygen saturation in Arterial blood by Pulse oximetry 96 % 96 % [facility] Respiratory rate 16 /min 16 /min [facility] Heart rate 62 /min 62 /min [facility] Body temperature 97.3 [degF] 97.3 [degF] [facility] Body weight 117.00 kg 117.00 kg [facility] Body height 175.26 cm 175.26 cm [facility] Body weight 117.00 kg 117.00 kg [facility] Body height 175.26 cm 175.26 cm [facility] Body weight 117.00 kg 117.00 kg [facility] Body height 175.26 cm 175.26 cm [facility] Body weight 117.00 kg 117.00 kg [facility] Body height 175.26 cm 175.26 cm [facility] Body weight 117.00 kg 117.00 kg [facility] Body height 175.26 cm 175.26 cm [facility] Body mass index (BMI) [Ratio] 38.1 kg/m2 38.1 k g/m2 [facility] Body mass index (BMI) [Ratio] 38.1 kg/m2 38.1 k g/m2 [facility] Diastolic blood pressure 80 mm[Hg] 80 mm[Hg] [facility] Systolic blood pressure 110 mm[Hg] 110 mm[Hg] O [employer] Oxygen saturation in Arterial blood by Pulse oximetry 98 % 98 % [email or web address] Respiratory rate 14 /min 14 /min [facility] Heart rate 65 /min 65 /min [email or web address] Body temperature 97.8 [degF] 97.8 [degF] [employer] Body weight 117.19 kg 117.19 kg [facility] [employer] Body height 175.26 cm 175.26 cm [employer] [employer] Diastolic blood pressure 80 mm[Hg] 80 mm[Hg] [employer] Systolic blood pressure 110 mm[Hg] 110 mm[Hg] O [employer] Oxygen saturation in Arterial blood by Pulse oximetry 98 % 98 % [email or web address] Respiratory rate 14 /min 14 /min [facility] Heart rate 65 /min 65 /min [email or web address] Body temperature 97.8 [degF] 97.8 [degF] [employer] [employer] Body weight 117.19 kg 117.19 kg [facility] [employer] Body height 175.26 cm 175.26 cm [employer] [employer] ID Date Data Source [id number] 03/15/2021 03:28:00 PM EDT [facility] Name Value Range Interpretation Code Description Data Source(s) TRANSFER FROM [facility] ID Date Data Source [id number] [facility] Range Interpretation Code Description Data Source(s) PEDIATRIC GESTATION AGE (WEEKS) 40 40 [facility] WEIGHT 4.139 kg 4.139 kg [facility] PEDIATRIC GESTATION AGE (WEEKS) 40 40 [facility] WEIGHT 4.139 kg 4.139 kg [facility] ID Date Data Source [id number] 12/12/2020 09:08:34 AM EDT [facility] Name Value Range Interpretation Code Description Data Source(s) PEDIATRIC GESTATION AGE (WEEKS) 40 40 [facility] WEIGHT 4.139 kg 4.139 kg [facility] ID Date Data Source [id number] 11/26/2020 06:21:05 PM EDT [facility] Name Value Range Interpretation Code Description Data Source(s) PEDIATRIC GESTATION AGE (WEEKS) 40 40 [facility] WEIGHT 4.139 kg 4.139 kg [facility] PEDIATRIC GESTATION AGE (WEEKS) 40 40 [facility] WEIGHT 4.139 kg 4.139 kg [facility] ID Date Data Source [id number] 10/23[facility] Name Value Range Interpretation Code Description Data Source(s) WEIGHT RECORDED 264 lb 264 lb [facility] Body height Measured 69.02 in 69.02 in [facility] ID Date Data Source [id number] 10/22/2020 07:15:45 AM EDT [facility] Name Value Range Interpretation Code Description Data Source(s) WEIGHT RECORDED 264 lb 264 lb [facility] ID Date Data Source [id number] 09/27/2020 07:23:11 AM [facility] Value Range Interpretation Code Description Data Source(s) WEIGHT RECORDED 253 lb 253 lb [facility] Body height Measured 69.02 in 69.02 in [facility] ID Date Data Source [id number] 10/03/2020 [facility]:12[facility] Name Value Range Interpretation Code Description Data Source(s) WEIGHT RECORDED 261.6 lb 261.6 lb [facility] Body height Measured 69 in 69 in [facility] ID Date Data Source [id number] 09/26/2020 06:14:58 PM [facility] Value Range Interpretation Code Description Data Source(s) WEIGHT RECORDED 252 lb 252 lb [facility] Body height Measured 69 in 69 in [facility] ID Date Data Source [id number] 06/20/2020 10:22:29 AM [facility] Name Value Range Interpretation Code Description Data Source(s) WEIGHT RECORDED 253.2 lb 253.2 lb [facility] ID Date Data Source [id number] 04/01/2020 [facility]54[facility] Name Value Range Interpretation Code Description Data Source(s) WEIGHT RECORDED 255.51 lb 255.51 lb [facility] Body height Measured 70.35 in 70.35 in [facility] ID Date Data Source [id number] 03/29/2020 04:42:25 PM [facility] Name Value Range Interpretation Code Description Data Source(s) WEIGHT RECORDED 255.6 lb 255.6 lb [facility] Body height Measured 70.35 in 70.35 in [facility] ID Date Data Source [id number] 04/25/2020 05:25:55 PM [facility] Name Value Range Interpretation Code Description Data Source(s) WEIGHT RECORDED 250 lb 250 lb [facility] WEIGHT RECORDED 250 lb 250 lb [facility] Patient Treatment Plan of Care Planned Activity Planned Date Details Description Data Source (s) sodium chloride 0.9% (NS) infusion [facility] 0.4 MG Sublingual Tablet [facility]/11[facility]2021 [facility] Ond[facility]ron 4 MG Oral Tablet 02/28/2021 10:19:18 AM [facility] Lidocaine 5 % External Patch (LIDODERM) 02/28/2021 12:00:00 AM [facility] POLYETHYLENE GLYCOL 3350 142 MG/ML Oral Solution 02/28/2021 12:00:0 0 AM [facility] sennosides, [facility] 35.2 MG/ML Oral Solution 02/28/2021 12:00:00 AM [facility] sodium chloride (preservative free) 0.9 % flush 10 mL 02/27/2021 11:51:49 AM [facility] perflutren lipid microspheres (DEFINITY) injectable centeno spension 9.78 mg 02/27/2021 11:23:35 AM [facility] Calcium Carbonate 500 MG Chewable Tablet 02/27/2021 06:42:50 AM [facility] Bisacodyl 10 MG Rectal Suppository 02/27/2021 04:12:57 AM [facility] Amitriptyline Hydrochloride 10 MG Oral Tablet 12/19/2020 12:00:00 A M [facility] Sulfamethoxazole 800 MG / Trimethoprim 160 MG Oral Tab let 10/09/2020 09:45:00 AM [facility] Cyclobenzaprine hydrochloride 10 MG Oral Tablet 09/25/2020 12:00:00 AM [facility] Amoxicillin 875 MG / Clavulanate 125 MG Oral Tablet 09/22/19 12:00:00 AM [facility] Amitriptyline Hydrochloride 10 MG Oral Tablet 09/21/2020 12:00:00 A M [facility] Ondansetron 4 MG Oral Tablet 09/06/2020 12:00:00 AM [facility] Furosemide 20 MG Oral Tablet 08/13/2020 12:00:00 AM [facility] Albuterol Sulfate HFA 108 (90 Base) MCG/ ACT Inhalation Aerosol Solution (PROVENTIL HFA) 05/31/2020 12:00:00 AM [facility] doxycycline hyclate 100 MG Oral Capsule 05/09/2020 12:00:00 AM [facility] Mexiletine Hydrochloride 150 MG Oral Capsule 05/04/2020 12:00:00 AM [facility] Loperamide Hydrochloride 2 MG Oral Capsule 05/03/2020 12:00:00 AM [facility] Loperamide Hydrochloride 2 MG Oral Tablet 05/02/2020 12:00:00 AM [facility] pantoprazole 40 MG Delayed Release Oral Tablet 05/02/2020 12:00:00 AM [facility] Dicyclomine Hydrochloride 10 MG Oral Capsule 05/02/2020 12:00:00 AM [facility] pantoprazole 40 MG Delayed Release Oral Tablet 04/04/2020 12:00:00 AM [facility] Sucralfate 100 MG/ML Oral Suspension 03/23/2020 08:15:00 PM [facility] Potassium Chloride 10 MEQ Extended Release Oral Tablet 02/24/2020 12:00:00 AM [facility] Furosemide 20 MG Oral Tablet 02/24/2020 12:00:00 AM [facility] pantoprazole 40 MG Delayed Release Oral Tablet AZRA ([facility]) Amitriptyline Hydrochloride 25 MG Oral Tablet AZRA ([facility]) Phenazopyridine hydrochloride 200 MG Oral Tablet AZRA ([facility]) Dexamethasone 0.001 MG/MG / Tobramycin 0 .003 MG/MG Ophthalmic Ointment [Tobradex] AZRA ([facility]) Amoxicillin 500 MG Oral Capsule AZAR ([facility]) Ciprofloxacin 500 MG Oral Tablet AZRA ([facility]) Dicyclomine Hydrochloride 10 MG Oral Capsule AZRA ([facility]) doxycycline hyclate 100 MG Oral Capsule AZRA ([facility]) Furosemide 40 MG Oral Tablet AZRA ([facility]) Levothyroxine Sodium 0.05 MG Oral Tablet AZRA ([facility]) Loperamide Hydrochloride 2 MG Oral Capsule AZRA ([facility]) NITROFURANTOIN, MACROCRYSTALS 25 MG / Ni trofurantoin, Monohydrate 75 MG Oral Capsule AZRA ([facility]) Omeprazole 20 MG Delayed Release Oral Capsule AZRA ([facility]) Ondansetron 4 MG Disintegrating Oral Tablet AZRA ([facility]) Amoxicillin 500 MG Oral Capsule AZRA ([facility]) Ciprofloxacin 500 MG Oral Tablet AZRA ([facility]) Dicyclomine Hydrochloride 10 MG Oral Capsule AZRA ([facility]) doxycycline hyclate 100 MG Oral Capsule AZRA ([facility]) Furosemide 40 MG Oral Tablet AZRA ([facility]) Levothyroxine Sodium 0.05 MG Oral Tablet AZRA ([facility]) Loperamide Hydrochloride 2 MG Oral Capsule AZRA ([facility]) Amitriptyline Hydrochloride 25 MG Oral Tablet AZRA ([facility]) Amoxicillin 500 MG Oral Capsule AZRA ([facility]) NITROFURANTOIN, MACROCRYSTALS 25 MG / Ni trofurantoin, Monohydrate 75 MG Oral Capsule AZRA ([facility]) Omeprazole 20 MG Delayed Release Oral Capsule AZRA ([facility]) Ondansetron 4 MG Disintegrating Oral Tablet AZRA ([facility]) pantoprazole 40 MG Delayed Release Oral Tablet AZRA ([facility]) Phenazopyridine hydrochloride 200 MG Oral Tablet AZRA ([facility]) Dexamethasone 0.001 MG/MG / Tobramycin 0 .003 MG/MG Ophthalmic Ointment [Tobradex] AZRA ([facility]) Amoxicillin 500 MG Oral Capsule AZRA ([facility]) Amitriptyline Hydrochloride 25 MG Oral Tablet AZRA ([facility]) Ciprofloxacin 500 MG Oral Tablet AZRA ([facility]) Levothyroxine Sodium 0.05 MG Oral Tablet AZRA ([facility]) Dicyclomine Hydrochloride 10 MG Oral Capsule AZRA ([facility]) Loperamide Hydrochloride 2 MG Oral Capsule AZRA ([facility]) NITROFURANTOIN, MACROCRYSTALS 25 MG / Ni trofurantoin, Monohydrate 75 MG Oral Capsule AZRA ([facility]) Omeprazole 20 MG Delayed Release Oral Capsule AZRA ([facility]) Ondansetron 4 MG Disintegrating Oral Tablet AZRA ([facility]) pantoprazole 40 MG Delayed Release Oral Tablet AZRA ([facility]) Phenazopyridine hydrochloride 200 MG Oral Tablet AZRA ([facility]) doxycycline hyclate 100 MG Oral Capsule AZRA ([facility]) Dexamethasone 0.001 MG/MG / Tobramycin 0 .003 MG/MG Ophthalmic Ointment [Tobradex] AZRA ([facility]) Furosemide 40 MG Oral Tablet ARZA ([facility]) doxycycline hyclate 100 MG Oral Capsule AZRA ([facility]) Furosemide 40 MG Oral Tablet AZRA ([facility]) pantoprazole 40 MG Delayed Release Oral Tablet AZRA ([facility]) Phenazopyridine hydrochloride 200 MG Oral Tablet AZRA ([facility]) Dexamethasone 0.001 MG/MG / Tobramycin 0 .003 MG/MG Ophthalmic Ointment [Tobradex] AZRA ([facility]) Amitriptyline Hydrochloride 25 MG Oral Tablet AZRA ([facility]) Amoxicillin 500 MG Oral Capsule AZRA ([facility]) Ciprofloxacin 500 MG Oral Tablet AZRA ([facility]) Dicyclomine Hydrochloride 10 MG Oral Capsule AZRA ([facility]) Levothyroxine Sodium 0.05 MG Oral Tablet AZRA ([facility]) Loperamide Hydrochloride 2 MG Oral Capsule AZRA ([facility]) NITROFURANTOIN, MACROCRYSTALS 25 MG / Ni trofurantoin, Monohydrate 75 MG Oral Capsule AZRA ([facility]) Omeprazole 20 MG Delayed Release Oral Capsule AZRA ([facility]) Ondansetron 4 MG Disintegrating Oral Tablet AZRA ([facility]) Phenazopyridine hydrochloride 200 MG Oral Tablet AZRA ([facility]) Amitriptyline Hydrochloride 25 MG Oral Tablet AZRA ([facility]) Amoxicillin 500 MG Oral Capsule AZRA ([facility]) Ciprofloxacin 500 MG Oral Tablet AZRA ([facility]) Dicyclomine Hydrochloride 10 MG Oral Capsule AZRA ([facility]) doxycycline hyclate 100 MG Oral Capsule AZRA ([facility]) Furosemide 40 MG Oral Tablet AZRA ([facility]) Levothyroxine Sodium 0.05 MG Oral Tablet AZRA ([facility]) Loperamide Hydrochloride 2 MG Oral Capsule AZRA ([facility]) NITROFURANTOIN, MACROCRYSTALS 25 MG / Ni trofurantoin, Monohydrate 75 MG Oral Capsule AZRA ([facility]) Omeprazole 20 MG Delayed Release Oral Capsule AZRA ([facility]) Ondansetron 4 MG Disintegrating Oral Tablet AZRA ([facility]) pantoprazole 40 MG Delayed Release Oral Tablet AZRA ([facility]) Dexamethasone 0.001 MG/MG / Tobramycin 0 .003 MG/MG Ophthalmic Ointment [Tobradex] AZRA ([facility]) Dexamethasone 0.001 MG/MG / Tobramycin 0 .003 MG/MG Ophthalmic Ointment [Tobradex] AZRA ([facility]) Loperamide Hydrochloride 2 MG Oral Capsule AZRA ([facility]) Methocarbamol 750 MG Oral Tablet AZRA ([facility]) NITROFURANTOIN, MACROCRYSTALS 25 MG / Ni trofurantoin, Monohydrate 75 MG Oral Capsule AZRA ([facility]) Omeprazole 20 MG Delayed Release Oral Capsule AZRA ([facility]) Ondansetron 4 MG Disintegrating Oral Tablet AZRA ([facility]) Amitriptyline Hydrochloride 25 MG Oral Tablet AZRA ([facility]) Amoxicillin 500 MG Oral Capsule AZRA ([facility]) Amoxicillin 875 MG / Clavulanate 125 MG Oral Tablet AZRA ([facility]) Ciprofloxacin 500 MG Oral Tablet AZRA ([facility]) Cyclobenzaprine hydrochloride 10 MG Oral Tablet AZRA ([facility]) Dicyclomine Hydrochloride 10 MG Oral Capsule AZRA ([facility]) doxycycline hyclate 100 MG Oral Capsule AZRA ([facility]) Furosemide 40 MG Oral Tablet AZRA ([facility]) Levothyroxine Sodium 0.05 MG Oral Tablet AZRA ([facility]) Amitriptyline Hydrochloride 25 MG Oral Tablet AZRA ([facility]) Dexamethasone 1 MG/ML / Tobramycin 3 MG/ML Ophthalmic [facility] pantoprazole 40 MG Delayed Release Oral Tablet AZRA ([facility]) Phenazopyridine hydrochloride 200 MG Oral Tablet AZRA ([facility]) Prednisone 20 MG Oral Tablet AZRA ([facility]) Prednisone 50 MG Oral Tablet AZRA ([facility]) Amoxicillin 500 MG Oral Capsule AZRA ([facility]) pantoprazole 40 MG Delayed Release Oral Tablet AZRA ([facility]) Phenazopyridine hydrochloride 200 MG Oral Tablet AZRA ([facility]) Amoxicillin 875 MG / Clavulanate 125 MG Oral Tablet AZRA ([facility]) Prednisone 20 MG Oral Tablet AZRA ([facility]) Ciprofloxacin 500 MG Oral Tablet AZRA ([facility]) Prednisone 50 MG Oral Tablet AZRA ([facility]) Cyclobenzaprine hydrochloride 10 MG Oral Tablet AZRA ([facility]) Dexamethasone 0.001 MG/MG / Tobramycin 0 .003 MG/MG Ophthalmic Ointment [Tobradex] AZRA ([facility]) Dicyclomine Hydrochloride 10 MG Oral Capsule AZRA ([facility]) doxycycline hyclate 100 MG Oral Capsule AZRA ([facility]) Furosemide 40 MG Oral Tablet AZRA ([facility]) Levothyroxine Sodium 0.05 MG Oral Tablet AZRA ([facility]) Loperamide Hydrochloride 2 MG Oral Capsule AZRA ([facility]) Methocarbamol 750 MG Oral Tablet AZRA ([facility]) NITROFURANTOIN, MACROCRYSTALS 25 MG / Ni trofurantoin, Monohydrate 75 MG Oral Capsule AZRA ([facility]) Omeprazole 20 MG Delayed Release Oral Capsule AZRA ([facility]) Ondansetron 4 MG Disintegrating Oral Tablet AZRA ([facility]) Levothyroxine Sodium 0.05 MG Oral Tablet AZRA ([facility]) Furosemide 40 MG Oral Tablet AZRA ([facility]) Omeprazole 20 MG Delayed Release Oral Capsule AZRA ([facility]) Ondansetron 4 MG Disintegrating Oral Tablet AZRA ([facility]) Ondansetron 4 MG Oral Tablet AZRA ([facility]) pantoprazole 40 MG Delayed Release Oral Tablet AZRA ([facility]) Phenazopyridine hydrochloride 200 MG Oral Tablet AZRA ([facility]) POLYETHYLENE GLYCOL 3350 142 MG/ML Oral Solution AZRA ([facility]) Prednisone 20 MG Oral Tablet AZRA ([facility]) Afluria Quad [id number] 60 mcg (15 mcg x 4)/0.5 mL intramuscular ulysses p. AZRA ([facility]) Amitriptyline Hydrochloride 10 MG Oral Tablet AZRA ([facility]) Amitriptyline Hydrochloride 25 MG Oral Tablet AZRA ([facility]) Amoxicillin 500 MG Oral Capsule AZRA ([facility]) Amoxicillin 875 MG / Clavulanate 125 MG Oral Tablet AZRA ([facility]) Ciprofloxacin 500 MG Oral Tablet AZRA ([facility]) Cyclobenzaprine hydrochloride 10 MG Oral Tablet AZRA ([facility]) Dicyclomine Hydrochloride 10 MG Oral Capsule AZRA ([facility]) doxycycline hyclate 100 MG Oral Capsule AZRA ([facility]) Prednisone 50 MG Oral Tablet AZRA ([facility]) Dexamethasone 0.001 MG/MG / Tobramycin 0 .003 MG/MG Ophthalmic Ointment [Tobradex] AZRA ([facility]) Dexamethasone 1 MG/ML / Tobramycin 3 MG/ML Ophthalmic Suspension AZRA ([facility]) Loperamide Hydrochloride 2 MG Oral Capsule AZRA ([facility]) Methocarbamol 750 MG Oral Tablet AZRA ([facility]) NITROFURANTOIN, MACROCRYSTALS 25 MG / Ni trofurantoin, Monohydrate 75 MG Oral Capsule AZRA ([facility]) potassium chloride SA (K-DUR,KLOR-CON) 20 MEQ tablet [facility] Furosemide 20 MG Oral Tablet [facility] Furosemide 40 MG Oral Tablet AZRA ([facility]) Afluria Quad 60 mcg (15 mcg x 4)/0.5 mL intramuscular ulysses p. AZRA ([facility]) Amitriptyline Hydrochloride 10 MG Oral Tablet AZRA ([facility]) Amitriptyline Hydrochloride 25 MG Oral Tablet AZRA ([facility]) Amoxicillin 500 MG Oral Capsule AZRA ([facility]) Amoxicillin 875 MG / Clavulanate 125 MG Oral Tablet AZRA ([facility]) Ciprofloxacin 500 MG Oral Tablet AZRA ([facility]) Cyclobenzaprine hydrochloride 10 MG Oral Tablet AZRA ([facility]) Dicyclomine Hydrochloride 10 MG Oral Capsule AZRA ([facility]) doxycycline hyclate 100 MG Oral Capsule AZRA ([facility]) Levothyroxine Sodium 0.05 MG Oral Tablet AZRA ([facility]) Loperamide Hydrochloride 2 MG Oral Capsule AZRA ([facility]) Methocarbamol 750 MG Oral Tablet AZRA ([facility]) NITROFURANTOIN, MACROCRYSTALS 25 MG / Ni trofurantoin, Monohydrate 75 MG Oral Capsule AZRA ([facility]) Omeprazole 20 MG Delayed Release Oral Capsule AZRA ([facility]) Ondansetron 4 MG Disintegrating Oral Tablet AZRA ([facility]) Ondansetron 4 MG Oral Tablet AZRA ([facility]) Ondansetron 8 MG Oral Tablet AZRA ([facility]) pantoprazole 40 MG Delayed Release Oral Tablet AZRA ([facility]) Phenazopyridine hydrochloride 200 MG Oral Tablet AZRA ([facility]) POLYETHYLENE GLYCOL 3350 142 MG/ML Oral Solution AZRA ([facility]) Prednisone 20 MG Oral Tablet AZRA ([facility]) Prednisone 50 MG Oral Tablet AZRA ([facility]) Sulfamethoxazole 800 MG / Trimethoprim 160 MG Oral Tablet AZRA ([facility]) Dexamethasone 0.001 MG/MG / Tobramycin 0 .003 MG/MG Ophthalmic Ointment [Tobradex] AZRA ([facility]) Dexamethasone 1 MG/ML / Tobramycin 3 MG/ML Ophthalmic Suspension AZRA ([facility])
--- NOTE | 2021-05-25 03:34 | REPVR ---
PROCEDURE INFORMATION: Exam: CT Head without Contrast Exam date and time: 05/25/21 (1:45am) Age: 30 years old Clinical indication: Fall. Uncertain if LOC. Concussion / head injury. TECHNIQUE: Imaging protocol: Computed tomography of the head without contrast Radiation optimization: All CT scans at this facility use at least one of these dose optimization techniques: automated exposure control; mA and/or kV adjustment per patient size (includes targeted exams where dose is matched to clinical indication); or iterative reconstruction. COMPARISON: MRI BRAIN of 11/17/20 FINDINGS: Brain: Unremarkable. No acute hemorrhage. Unremarkable white matter. No mass effect. Cerebral ventricles: No ventriculomegaly. Paranasal sinuses: Visualized sinuses are unremarkable. No air-fluid levels. Mastoid air cells: Visualized mastoid air cells are well aerated. Bones/joints: Unremarkable. No acute fracture. Soft tissues: Unremarkable. IMPRESSION: No acute intracranial pathology. Electronically signed by: Lakisha Sloan On 05/25/2021 03:33:31 AM
[2021-05-25 05:11] VITALS: BP 113/75
== END 2021-05-25 05:14 | disposition home or self-care (01) ==
LOC: M ED 20:33
DX: R42 Dizziness and giddiness (principal); G89.29 Other chronic pain; R10.9 Unspecified abdominal pain; G71.11 Myotonic muscular dystrophy; Z79.899 Other long term (current) drug therapy; Z88.5 Allergy status to narcotic agent; Z88.8 Allergy status to other drugs, medicaments and biological substances

== ENCOUNTER → 2021-06-14 | Outpatient (CLI) | payer OTHER ==
[2021-06-14 12:23] LABS: HEMATOCRIT 42.6 % (36.0-47.0); HEMOGLOBIN 13.9 g/dl (12.0-15.5); MEAN CORPUSCULAR HEMOGLOBIN 31.7 pg (27.0-33.0); MEAN CORPUSCULAR HGB CONC 32.6 g/dl (32.0-36.5); MEAN CORPUSCULAR VOLUME 97.3 fl (80.0-96.0); PLATELET COUNT, AUTOMATED 172 10^3/uL (150-450); RED BLOOD COUNT 4.38 10^6/uL (4.00-5.40); WHITE BLOOD COUNT 4.2 10^3/uL (4.0-10.0)
[2021-06-14 12:34] LABS: INR 0.93; PROTHROMBIN TIME 12.9 SECONDS (12.7-14.5)
[2021-06-14 12:45] LABS: BLOOD UREA NITROGEN 13 MG/DL (7-18); CALCIUM LEVEL 8.9 MG/DL (8.5-10.1); CARBON DIOXIDE LEVEL 26 MEQ/L (21-32); CHLORIDE LEVEL 110 MEQ/L (98-107); CREATININE FOR GFR 0.71 MG/DL (0.55-1.30); GLOMERULAR FILTRATION RATE > 60.0 (>60); GLUCOSE, FASTING 94 MG/DL (70-100); POTASSIUM SERUM 3.8 MEQ/L (3.5-5.1); SODIUM LEVEL 142 MEQ/L (136-145)
== END ==
LOC: M LAB 11:54
DX: I42.0 Dilated cardiomyopathy (principal); I47.2 Ventricular tachycardia; G71.11 Myotonic muscular dystrophy

== ENCOUNTER → 2021-07-24 | Outpatient (CLI) | payer OTHER ==
[~2021-07-24] MED LIST changes: +CEPH500C; +ELIQ5TAB PO; -FURO20TA2; +FURO20TA2 PO; +ISOVUE-300 61% 50ML VIAL As Ordered ONE; +LIDOCAINE 1% MDV 20ML VIAL As Ordered ONE; -MEXI15CA; +MEXI15CA PO; +SOTA80TA53 PO
--- NOTE | 2021-07-24 09:47 | REP ---
INDICATION: PAIN IN RT KNEE. COMPARISON: None. TECHNIQUE: 2 x [address] scanning through the right knee and reconstructed in both sagittal and coronal planes after the intra-articular injection of contrast. The intra-articular injection was performed by [facility] ENGLISH. FINDINGS: There are no abnormal contrast accumulation is in the menisci. Indirect visualization of the cruciate ligaments shows no evidence of complete disruption. The chondral surfaces are smooth. There is no evidence of a Collazo's cyst. There is no fracture or destructive osseous lesion. IMPRESSION: Within normal limits <Electronically signed by Rafa Mayer > 07/24/21 [id number]
--- NOTE | 2021-07-24 17:43 | REP ---
INDICATION: PAIN IN RT KNEE. COMPARISON: None. TECHNIQUE: The procedure was performed under the direct supervision of Dr. Wilson. The benefits and risks including but not limited to pain infection bleeding and anaphylaxis were explained to the patient and informed consent obtained. The right tibiofemoral joint space was localized using fluoroscopic guidance. The skin was prepped and draped in a sterile fashion. 1% lidocaine was used as a local anesthetic. Using fluoroscopic guidance, and last image hold technology, a 22 gauge needle was inserted and advanced into the joint. 35 mL of Isovue 300 was injected. The needle was removed and the patient was taken to CT scan for postprocedural imaging. The patient tolerated the procedure well and there were no immediate complications. Less than 6 seconds of fluoroscopy time was utilized for this procedure. FINDINGS: None IMPRESSION: Fluoro guidance for right knee CT arthrogram injection. <Electronically signed by Craig Spain > 07/24/21 [id number] <Electronically signed by J Luis Wilson > 07/24/21 [id number]
== END ==
LOC: M RADPRO 08:37
PROVIDERS: ATTEND Orthopaedic Surgery
DX: M25.561 Pain in right knee (principal)
CPT/HCPCS: 27369; 73701; 77002; Q9967

== ENCOUNTER → 2021-08-01 | Outpatient (CLI) | payer OTHER ==
[~2021-08-01] MED LIST changes: -ISOVUE-300 61% 50ML VIAL As Ordered ONE; -LIDOCAINE 1% MDV 20ML VIAL As Ordered ONE
[2021-08-01 11:01] LABS: ALT/SGPT 43 U/L (12-78); BILIRUBIN,TOTAL 0.4 MG/DL (0.2-1.0); BLOOD UREA NITROGEN 17 MG/DL (7-18); C REACTIVE PROTEIN QUANTITATIV 0.44 MG/DL (0.00-0.30); CALCIUM LEVEL 9.3 MG/DL (8.5-10.1); CARBON DIOXIDE LEVEL 25 MEQ/L (21-32); CHLORIDE LEVEL 110 MEQ/L (98-107); CREATININE FOR GFR 0.82 MG/DL (0.55-1.30); GLOMERULAR FILTRATION RATE > 60.0 (>60); GLUCOSE, FASTING 100 MG/DL (70-100); POTASSIUM SERUM 3.9 MEQ/L (3.5-5.1); SODIUM LEVEL 141 MEQ/L (136-145)
== END ==
LOC: M PLALAB 08:33
PROVIDERS: ATTEND Internal Medicine Infectious Disease
DX: L98.0 Pyogenic granuloma (principal)

== ENCOUNTER 2021-08-20 12:48 | Inpatient (IN) | payer OTHER ==
[~2021-08-20] VITALS: Ht 175.3 cm; Wt 114.5 kg
[2021-08-20] MEDS ORDERED: TOBRSUS8 (13:06)
[2021-08-20 16:26] LABS: BASO % 0.6 % (0.0-1.0); EOS # 0.1 10^3/uL (0.0-0.5); EOS % 0.8 % (0.0-3.0); HEMATOCRIT 42.8 % (36.0-47.0); LYMPH # 1.3 10^3/uL (1.5-5.0); LYMPH % 20.5 % (24.0-44.0); MEAN CORPUSCULAR HEMOGLOBIN 32.2 pg (27.0-33.0); MEAN CORPUSCULAR HGB CONC 32.7 g/dl (32.0-36.5); MEAN CORPUSCULAR VOLUME 98.4 fl (80.0-96.0); MONO # 0.4 10^3/uL (0.0-0.8); MONO % 6.6 % (2.0-8.0); NEUTROPHILS # 4.4 10^3/uL (1.5-8.5); NEUTROPHILS % 71.3 % (36.0-66.0); PLATELET COUNT, AUTOMATED 162 10^3/uL (150-450); RED BLOOD COUNT 4.35 10^6/uL (4.00-5.40); WHITE BLOOD COUNT 6.2 10^3/uL (4.0-10.0)
[2021-08-20 16:37] LABS: INR 0.93; PROTHROMBIN TIME 12.9 SECONDS (12.7-14.5)
[2021-08-20 17:59] LABS: CK-MB VALUE MASS 4.6 NG/ML (<3.6); MB/CK RELATIVE INDEX 1.8 (< OR =4)
[2021-08-20 18:11] LABS: ALBUMIN 3.8 GM/DL (3.2-5.2); ALT/SGPT 61 U/L (12-78); BILIRUBIN,DIRECT < 0.1 MG/DL (0.0-0.2); BILIRUBIN,TOTAL 0.2 MG/DL (0.2-1.0); BLOOD UREA NITROGEN 10 MG/DL (7-18); CALCIUM LEVEL 9.3 MG/DL (8.5-10.1); CARBON DIOXIDE LEVEL 26 MEQ/L (21-32); CHLORIDE LEVEL 111 MEQ/L (98-107); CREATININE FOR GFR 0.74 MG/DL (0.55-1.30); FREE T4 0.98 NG/DL (0.76-1.46); GLOMERULAR FILTRATION RATE > 60.0 (>60); GLUCOSE, FASTING 106 MG/DL (70-100); LIPASE 93 U/L (73-393); NT-PRO BNP 270 PG/ML (<125); POTASSIUM SERUM 4.7 MEQ/L (3.5-5.1); SODIUM LEVEL 143 MEQ/L (136-145); TOTAL PROTEIN 7.7 GM/DL (6.4-8.2)
[2021-08-20] MEDS ORDERED: ISOVUE-370 76% 100ML VIAL As Ordered ONE (18:21)
[2021-08-20 18:27] LABS: D-DIMER QUANT 697.31 ng/ml (<500)
[2021-08-20] MEDS ORDERED: LABETALOL 100MG/20ML VIAL IV STA (18:49)
[2021-08-20] MEDS ORDERED: SOTA80TA53 PO (20:01)
[2021-08-20] MEDS ORDERED: ELIQ5TAB PO (20:01)
[2021-08-20] MEDS ORDERED: FURO20TA2 PO (20:01)
[2021-08-20] MEDS ORDERED: TOBRSUS8 OS (20:01)
[2021-08-20] MEDS ORDERED: POTA1TAB23 PO (20:01)
[2021-08-20] MEDS ORDERED: MEXI15CA PO (20:01)
[2021-08-20] MEDS ORDERED: ACET1TAB55 PO (20:02)
[2021-08-20] MEDS ORDERED: HOME MED LIST COMPLETE! XX SCH (20:05)
[2021-08-20 22:04] LABS: CK-MB VALUE MASS 3.3 NG/ML (<3.6); MB/CK RELATIVE INDEX 1.45 (< OR =4)
[2021-08-20] MEDS ORDERED: ACETAMINOPHEN TAB 650MG DOSE (2X325MG) PO PRN (22:15)
[2021-08-20] MEDS ORDERED: MAALOX 30 ML SUSP *UDC PO PRN (22:15)
[2021-08-20] MEDS ORDERED: MOM 30ML SUSPENSION UDC PO PRN (22:15)
[2021-08-20 23:50] VITALS: BP 128/80
[2021-08-21] MEDS: TOBRADEX OPHTH SUSP 2.5 ML OS SCH ×2 (00:24→10:21)
[2021-08-21] MEDS: SOTALOL HCL 80 MG TAB PO SCH ×2 (00:24→10:24)
[2021-08-21] MEDS: APIXABAN 5 MG TAB (ELIQUIS) PO SCH ×2 (00:24→10:23)
[2021-08-21 02:23] LABS: CK-MB VALUE MASS 2.2 NG/ML (<3.6); MB/CK RELATIVE INDEX 1.06 (< OR =4)
[2021-08-21 04:00] VITALS: BP 107/58
[2021-08-21 04:52] LABS: BASO % 0.3 % (0.0-1.0); EOS % 0.7 % (0.0-3.0); HEMATOCRIT 41.2 % (36.0-47.0); HEMOGLOBIN 13.6 g/dl (12.0-15.5); LYMPH # 1.8 10^3/uL (1.5-5.0); LYMPH % 28.9 % (24.0-44.0); MEAN CORPUSCULAR HEMOGLOBIN 32.5 pg (27.0-33.0); MEAN CORPUSCULAR VOLUME 98.3 fl (80.0-96.0); MONO # 0.4 10^3/uL (0.0-0.8); NEUTROPHILS # 3.9 10^3/uL (1.5-8.5); NEUTROPHILS % 63.9 % (36.0-66.0); PLATELET COUNT, AUTOMATED 169 10^3/uL (150-450); RED BLOOD COUNT 4.19 10^6/uL (4.00-5.40); WHITE BLOOD COUNT 6.1 10^3/uL (4.0-10.0)
[2021-08-21 05:25] LABS: ALBUMIN 3.4 GM/DL (3.2-5.2); ALT/SGPT 50 U/L (12-78); BILIRUBIN,TOTAL 0.5 MG/DL (0.2-1.0); BLOOD UREA NITROGEN 9 MG/DL (7-18); CALCIUM LEVEL 8.7 MG/DL (8.5-10.1); CARBON DIOXIDE LEVEL 25 MEQ/L (21-32); CHLORIDE LEVEL 113 MEQ/L (98-107); GLOMERULAR FILTRATION RATE > 60.0 (>60); GLUCOSE, FASTING 92 MG/DL (70-100); MAGNESIUM LEVEL 2.3 MG/DL (1.8-2.4); POTASSIUM SERUM 4.1 MEQ/L (3.5-5.1); SODIUM LEVEL 143 MEQ/L (136-145); TOTAL PROTEIN 7.5 GM/DL (6.4-8.2)
[2021-08-21 08:00] VITALS: BP 102/59
[2021-08-21 08:10] VITALS: BP 103/71
[2021-08-21 08:15] VITALS: BP 105/70
[2021-08-21] MEDS ORDERED: MEXILETINE 150 MG CAP PO SCH (09:00)
[2021-08-21] MEDS ORDERED: POTASSIUM CHLORIDE 10MEQ SR TABLET PO SCH (09:00)
[2021-08-21] MEDS ORDERED: OMEPRAZOLE 20MG CAP PO SCH (09:00)
[2021-08-21] MEDS ORDERED: OMEP-173 PO (09:14)
[2021-08-21 10:24] VITALS: BP 105/70
[2021-08-21 12:00] VITALS: BP 114/61
== END 2021-08-21 13:30 | disposition home or self-care (01) | DRG 204 ==
LOC: EDBD 12:48 → M ED 12:48 → M ED INP 22:11 → M PCU 23:53
PROVIDERS: ADMIT Family Medicine; ATTEND General Practice
DX: R55 Syncope and collapse (principal); I50.22 Chronic systolic (congestive) heart failure; G71.11 Myotonic muscular dystrophy; I44.0 Atrioventricular block, first degree; I44.7 Left bundle-branch block, unspecified; Z86.711 Personal history of pulmonary embolism; E03.9 Hypothyroidism, unspecified; Z90.49 Acquired absence of other specified parts of digestive tract; Z85.09 Personal history of malignant neoplasm of other digestive organs; Z95.810 Presence of automatic (implantable) cardiac defibrillator; Z79.01 Long term (current) use of anticoagulants; Z79.899 Other long term (current) drug therapy; Z88.5 Allergy status to narcotic agent; Z88.6 Allergy status to analgesic agent; Z88.8 Allergy status to other drugs, medicaments and biological substances

== ENCOUNTER 2021-11-05 23:43 | Emergency (ER) | payer OTHER ==
[~2021-11-05] VITALS: Ht 175.3 cm; Wt 123.3 kg
[~2021-11-05 23:43] MED LIST changes: +ACET1TAB55 PO; +OMEP-173 PO; +TOBRSUS8; +TOBRSUS8 OS
[2021-11-05 23:44] VITALS: BP 120/65
== END 2021-11-06 02:40 | disposition left against medical advice (07) ==
LOC: M ED 23:43
DX: Z53.29 Procedure and treatment not carried out because of patient's decision for other reasons (principal)

== ENCOUNTER → 2022-01-10 | Outpatient (CLI) | payer OTHER ==
[~2022-01-10] MED LIST changes: +ADVI200C8 PO; +VERI2.5T PO
[2022-01-10 13:32] LABS: FREE T4 0.89 NG/DL (0.76-1.46)
[2022-01-10 13:37] LABS: THYROID PEROXIDASE ANTIBODY > 1300.0 U/ML (<60.0)
== END ==
LOC: M LAB 12:05
PROVIDERS: ATTEND Nurse Practitioner Family
DX: E03.9 Hypothyroidism, unspecified (principal)

== ENCOUNTER 2022-01-13 01:57 | Inpatient (IN) | payer OTHER ==
[~2022-01-13] VITALS: Ht 175.3 cm; Wt 118.2 kg
[2022-01-13 02:40] LABS: BASO % 0.4 % (0.0-1.0); EOS % 0.2 % (0.0-3.0); HEMATOCRIT 41.3 % (36.0-47.0); HEMOGLOBIN 13.6 g/dl (12.0-15.5); LYMPH # 0.7 10^3/uL (1.5-5.0); LYMPH % 15.3 % (24.0-44.0); MEAN CORPUSCULAR HEMOGLOBIN 32.9 pg (27.0-33.0); MEAN CORPUSCULAR HGB CONC 32.9 g/dl (32.0-36.5); MEAN CORPUSCULAR VOLUME 99.8 fl (80.0-96.0); MONO # 0.4 10^3/uL (0.0-0.8); MONO % 8.5 % (2.0-8.0); NEUTROPHILS # 3.7 10^3/uL (1.5-8.5); NEUTROPHILS % 75.2 % (36.0-66.0); PLATELET COUNT, AUTOMATED 129 10^3/uL (150-450); RED BLOOD COUNT 4.14 10^6/uL (4.00-5.40); WHITE BLOOD COUNT 4.9 10^3/uL (4.0-10.0)
[2022-01-13] MEDS ORDERED: AMIODARONE HCL 150 MG in IV 1 EA IV STA ×2 (03:00→04:05)
[2022-01-13 03:12] LABS: BLOOD UREA NITROGEN 11 MG/DL (7-18); CALCIUM LEVEL 8.3 MG/DL (8.5-10.1); CARBON DIOXIDE LEVEL 22 MEQ/L (21-32); CHLORIDE LEVEL 115 MEQ/L (98-107); CREATININE FOR GFR 0.78 MG/DL (0.55-1.30); GLOMERULAR FILTRATION RATE > 60.0 (>60); GLUCOSE, FASTING 97 MG/DL (70-100); MAGNESIUM LEVEL 1.9 MG/DL (1.8-2.4); POTASSIUM SERUM 4.1 MEQ/L (3.5-5.1); SODIUM LEVEL 144 MEQ/L (136-145)
[2022-01-13] MEDS ORDERED: MORPHINE 2 MG/ML 1ML VIAL IV ONE ×2 (03:55→04:00)
[2022-01-13] MEDS ORDERED: METOPROLOL TART 25 MG TABLET PO ONE (04:05)
[2022-01-13] MEDS ORDERED: NS 1,000 ML IV ONE (04:35)
[2022-01-13] MEDS ORDERED: MAG SULF 1GM/100ML (MAG RUN) 1 GM in IV 1 EA IV ONE (05:10)
[2022-01-13] MEDS ORDERED: AMIODARONE 150MG/3ML INJ (J0282) IVP STA (05:47)
[2022-01-13] MEDS ORDERED: ISOVUE-370 76% 100ML VIAL As Ordered ONE (06:40)
[2022-01-13] MEDS: AMIODARONE HCL 360 MG in IV 1 EA IV SCH ×2 (07:10→07:15)
[2022-01-13 07:55] LABS: CK-MB VALUE MASS 1.8 NG/ML (<3.6); MB/CK RELATIVE INDEX 0.48 (< OR =4)
[2022-01-13] MEDS ORDERED: MOM 30ML SUSPENSION UDC PO PRN (08:35)
[2022-01-13] MEDS ORDERED: ENOXAPARIN 40MG/0.4ML SYRINGE (J1650 PER 10MG) SC SCH (09:00)
[2022-01-13] MEDS ORDERED: ELIQ5TAB PO (09:22)
[2022-01-13] MEDS ORDERED: HOME MED LIST COMPLETE! XX SCH (09:25)
[2022-01-13 09:32] LABS: FREE T4 0.86 NG/DL (0.76-1.46)
[2022-01-13 11:20] VITALS: BP 91/59
[2022-01-13] MEDS: APIXABAN 5 MG TAB (ELIQUIS) PO SCH ×2 (11:41→20:27)
[2022-01-13] MEDS: MECLIZINE 12.5 MG TAB PO PRN (11:41)
[2022-01-13 12:00] VITALS: BP 86/52
[2022-01-13 13:00] VITALS: BP 81/53
[2022-01-13 13:30] VITALS: BP 84/57
[2022-01-13] MEDS ORDERED: SODIUM CHLORIDE 0.9% 1000ML IV ONE (13:50)
[2022-01-13 15:19] VITALS: BP 97/71
[2022-01-13 20:10] VITALS: BP 93/52
[2022-01-13] MEDS: AMIODARONE 200 MG TAB (PACERONE) PO SCH (20:27)
[2022-01-14 00:05] VITALS: BP 92/55
[2022-01-14 04:10] VITALS: BP 118/64
[2022-01-14 05:33] LABS: HEMATOCRIT 36.6 % (36.0-47.0); HEMOGLOBIN 11.7 g/dl (12.0-15.5); MEAN CORPUSCULAR HEMOGLOBIN 31.8 pg (27.0-33.0); MEAN CORPUSCULAR VOLUME 99.5 fl (80.0-96.0); PLATELET COUNT, AUTOMATED 124 10^3/uL (150-450); RED BLOOD COUNT 3.68 10^6/uL (4.00-5.40); WHITE BLOOD COUNT 4.6 10^3/uL (4.0-10.0)
[2022-01-14 05:51] LABS: BLOOD UREA NITROGEN 9 MG/DL (7-18); CALCIUM LEVEL 8.4 MG/DL (8.5-10.1); CARBON DIOXIDE LEVEL 25 MEQ/L (21-32); CHLORIDE LEVEL 114 MEQ/L (98-107); CREATININE FOR GFR 0.71 MG/DL (0.55-1.30); GLOMERULAR FILTRATION RATE > 60.0 (>60); GLUCOSE, FASTING 94 MG/DL (70-100); MAGNESIUM LEVEL 2.2 MG/DL (1.8-2.4); POTASSIUM SERUM 3.9 MEQ/L (3.5-5.1); SODIUM LEVEL 145 MEQ/L (136-145)
[2022-01-14 08:30] VITALS: BP 112/60
[2022-01-14] MEDS: APIXABAN 5 MG TAB (ELIQUIS) PO SCH ×2 (09:18→21:08)
[2022-01-14] MEDS: AMIODARONE 200 MG TAB (PACERONE) PO SCH ×2 (09:18→21:08)
[2022-01-14 12:20] VITALS: BP 102/61
[2022-01-14 15:53] VITALS: BP 114/71
[2022-01-14 20:00] VITALS: BP 119/72
[2022-01-14] MEDS: ACETAMINOPHEN TAB 650MG DOSE (2X325MG) PO PRN (21:09)
[2022-01-15] VITALS (9 sets, daily range): BP systolic 96–141; BP diastolic 58–81
[2022-01-15] MEDS ORDERED: MORPHINE 2 MG/ML 1ML VIAL IV ONE (06:00)
[2022-01-15] MEDS: AMIODARONE 200 MG TAB (PACERONE) PO SCH ×2 (08:05→21:52)
[2022-01-15] MEDS: APIXABAN 5 MG TAB (ELIQUIS) PO SCH ×2 (08:05→21:52)
[2022-01-15 08:14] LABS: BLOOD UREA NITROGEN 10 MG/DL (7-18); CALCIUM LEVEL 9.2 MG/DL (8.5-10.1); CARBON DIOXIDE LEVEL 27 MEQ/L (21-32); CHLORIDE LEVEL 114 MEQ/L (98-107); CREATININE FOR GFR 0.83 MG/DL (0.55-1.30); GLOMERULAR FILTRATION RATE > 60.0 (>60); GLUCOSE, FASTING 95 MG/DL (70-100); POTASSIUM SERUM 4.2 MEQ/L (3.5-5.1); SODIUM LEVEL 144 MEQ/L (136-145)
[2022-01-15] MEDS: ACETAMINOPHEN TAB 650MG DOSE (2X325MG) PO PRN (21:52)
[2022-01-15] MEDS: MECLIZINE 12.5 MG TAB PO PRN (21:52)
[2022-01-16] VITALS: BP 100/64
[2022-01-16] MEDS ORDERED: MORPHINE 2 MG/ML 1ML VIAL IV ONE (03:00)
[2022-01-16 04:00] VITALS: BP 106/61
[2022-01-16] MEDS ORDERED: MECL-136 PO (08:08)
[2022-01-16] MEDS ORDERED: AMIO200T49 PO (08:08)
[2022-01-16 08:24] VITALS: BP 117/71
[2022-01-16] MEDS: AMIODARONE 200 MG TAB (PACERONE) PO SCH (08:57)
[2022-01-16] MEDS: APIXABAN 5 MG TAB (ELIQUIS) PO SCH (08:57)
== END 2022-01-16 10:27 | disposition home or self-care (01) | DRG 201 ==
LOC: M ED 01:57 → M ED INP 08:35 → ENRESERV 08:57 → M PCU 11:03
PROVIDERS: ADMIT Internal Medicine; ATTEND Family Medicine
DX: I47.2 Ventricular tachycardia (principal); I43 Cardiomyopathy in diseases classified elsewhere; I50.32 Chronic diastolic (congestive) heart failure; G71.11 Myotonic muscular dystrophy; D73.89 Other diseases of spleen; E03.9 Hypothyroidism, unspecified; I44.0 Atrioventricular block, first degree; I44.7 Left bundle-branch block, unspecified; Z86.711 Personal history of pulmonary embolism; Z90.49 Acquired absence of other specified parts of digestive tract; Z85.09 Personal history of malignant neoplasm of other digestive organs; Z95.810 Presence of automatic (implantable) cardiac defibrillator; Z88.6 Allergy status to analgesic agent; Z88.5 Allergy status to narcotic agent; Z88.8 Allergy status to other drugs, medicaments and biological substances

== ENCOUNTER 2022-01-21 13:35 | Inpatient (IN) | payer OTHER ==
[~2022-01-21] VITALS: Ht 175.3 cm; Wt 120.2 kg
[~2022-01-21 13:35] MED LIST changes: +AMIO200T49 PO; +MECL-136 PO
[2022-01-21 14:49] LABS: BASO % 0.5 % (0.0-1.0); EOS # 0.1 10^3/uL (0.0-0.5); EOS % 1.3 % (0.0-3.0); HEMATOCRIT 37.8 % (36.0-47.0); HEMOGLOBIN 12.4 g/dl (12.0-15.5); LYMPH % 25.1 % (24.0-44.0); MEAN CORPUSCULAR HEMOGLOBIN 32.5 pg (27.0-33.0); MEAN CORPUSCULAR HGB CONC 32.8 g/dl (32.0-36.5); MEAN CORPUSCULAR VOLUME 99.2 fl (80.0-96.0); MONO # 0.3 10^3/uL (0.0-0.8); MONO % 6.4 % (2.0-8.0); NEUTROPHILS # 2.5 10^3/uL (1.5-8.5); NEUTROPHILS % 64.7 % (36.0-66.0); PLATELET COUNT, AUTOMATED 200 10^3/uL (150-450); RED BLOOD COUNT 3.81 10^6/uL (4.00-5.40); WHITE BLOOD COUNT 3.9 10^3/uL (4.0-10.0)
[2022-01-21 15:03] LABS: INR 0.95; PROTHROMBIN TIME 13.1 SECONDS (12.7-14.5)
[2022-01-21 15:04] LABS: PARTIAL THROMBOPLASTIN TIME 29.9 SECONDS (25.9-37.0)
[2022-01-21 15:22] LABS: CK-MB VALUE MASS 2.8 NG/ML (<3.6); MB/CK RELATIVE INDEX 1.81 (< OR =4)
[2022-01-21 15:25] LABS: ALBUMIN 3.3 GM/DL (3.2-5.2); ALT/SGPT 64 U/L (12-78); BILIRUBIN,DIRECT 0.2 MG/DL (0.0-0.2); BILIRUBIN,TOTAL 0.3 MG/DL (0.2-1.0); BLOOD UREA NITROGEN 9 MG/DL (7-18); CALCIUM LEVEL 9.1 MG/DL (8.5-10.1); CARBON DIOXIDE LEVEL 26 MEQ/L (21-32); CHLORIDE LEVEL 113 MEQ/L (98-107); CREATININE FOR GFR 0.76 MG/DL (0.55-1.30); FREE T4 1.09 NG/DL (0.76-1.46); GLOMERULAR FILTRATION RATE > 60.0 (>60); GLUCOSE, FASTING 91 MG/DL (70-100); LIPASE 163 U/L (73-393); MAGNESIUM LEVEL 2.3 MG/DL (1.8-2.4); NT-PRO BNP 406 PG/ML (<125); POTASSIUM SERUM 4.1 MEQ/L (3.5-5.1); SODIUM LEVEL 144 MEQ/L (136-145)
[2022-01-21] MEDS ORDERED: ISOVUE-370 76% 100ML VIAL As Ordered ONE (15:29)
[2022-01-21 16:48] LABS: CK-MB VALUE MASS 2.7 NG/ML (<3.6); MB/CK RELATIVE INDEX 2.16 (< OR =4)
[2022-01-21 16:51] LABS: RSV AMPLIFICATION NEGATIVE (NEGATIVE)
[2022-01-21] MEDS ORDERED: METOPROLOL TART 25 MG TABLET PO ONE (18:25)
[2022-01-21] MEDS ORDERED: AMIO200T49 PO (19:45)
[2022-01-21] MEDS ORDERED: MECL-136 PO (19:45)
[2022-01-21] MEDS ORDERED: HOME MED LIST COMPLETE! XX SCH (19:45)
[2022-01-21] MEDS ORDERED: BENA25CA4 PO (19:45)
[2022-01-22] VITALS (10 sets, daily range): BP systolic 83–103; BP diastolic 48–66
[2022-01-22] MEDS: ATORVASTATIN 20 MG TAB PO SCH ×2 (00:30→20:40)
[2022-01-22] MEDS: METOPROLOL TART 25 MG TABLET PO SCH ×2 (05:24)
[2022-01-22 05:25] LABS: BLOOD UREA NITROGEN 9 MG/DL (7-18); CALCIUM LEVEL 9.7 MG/DL (8.5-10.1); CARBON DIOXIDE LEVEL 28 MEQ/L (21-32); CHLORIDE LEVEL 108 MEQ/L (98-107); GLOMERULAR FILTRATION RATE > 60.0 (>60); GLUCOSE, FASTING 83 MG/DL (70-100); SODIUM LEVEL 140 MEQ/L (136-145)
[2022-01-22] MEDS ORDERED: AMIODARONE 200 MG TAB (PACERONE) PO SCH (09:00)
[2022-01-22] MEDS: APIXABAN 5 MG TAB (ELIQUIS) PO SCH ×2 (10:23→20:40)
[2022-01-22] MEDS: FUROSEMIDE 20 MG TAB PO SCH (10:23)
[2022-01-22] MEDS ORDERED: ACETAMINOPHEN TAB 650MG DOSE (2X325MG) PO PRN (11:25)
[2022-01-22] MEDS ORDERED: NS 500 ML IV ONE (18:20)
[2022-01-22] MEDS ORDERED: NS 1,000 ML IV SCH (18:40)
[2022-01-22] MEDS: AMIODARONE 200 MG TAB (PACERONE) PO SCH (20:40)
[2022-01-22] MEDS: METOPROLOL SUCC *XL* 12.5MG PER 1/2 TAB (TopROL *XL*) PO SCH (21:25)
[2022-01-23] VITALS (8 sets, daily range): BP systolic 86–107; BP diastolic 55–71
[2022-01-23] MEDS ORDERED: METOCLOPRAMIDE INJ 10MG/2ML VIAL (J2765 PER 1) IV ONE (01:00)
[2022-01-23] MEDS: APIXABAN 5 MG TAB (ELIQUIS) PO SCH ×2 (08:06→20:12)
[2022-01-23] MEDS: AMIODARONE 200 MG TAB (PACERONE) PO SCH ×2 (08:06→20:13)
[2022-01-23] MEDS: METOPROLOL SUCC *XL* 12.5MG PER 1/2 TAB (TopROL *XL*) PO SCH ×3 (08:06→20:57)
[2022-01-23] MEDS: FUROSEMIDE 20 MG TAB PO SCH (08:07)
[2022-01-23] MEDS ORDERED: NS 1,000 ML IV SCH (13:20)
[2022-01-23] MEDS: ATORVASTATIN 20 MG TAB PO SCH (20:09)
[2022-01-24] VITALS: BP 119/83
[2022-01-24] MEDS ORDERED: MORPHINE 2 MG/ML 1ML VIAL IV ONE (00:05)
[2022-01-24] MEDS ORDERED: FAMOTIDINE 20 MG TAB PO ONE (01:05)
[2022-01-24 04:00] VITALS: BP 115/60
[2022-01-24 05:53] LABS: HEMATOCRIT 40.7 % (36.0-47.0); HEMOGLOBIN 13.3 g/dl (12.0-15.5); MEAN CORPUSCULAR HGB CONC 32.7 g/dl (32.0-36.5); MEAN CORPUSCULAR VOLUME 97.8 fl (80.0-96.0); PLATELET COUNT, AUTOMATED 214 10^3/uL (150-450); RED BLOOD COUNT 4.16 10^6/uL (4.00-5.40); WHITE BLOOD COUNT 6.4 10^3/uL (4.0-10.0)
[2022-01-24 06:22] LABS: BLOOD UREA NITROGEN 12 MG/DL (7-18); CARBON DIOXIDE LEVEL 27 MEQ/L (21-32); CHLORIDE LEVEL 111 MEQ/L (98-107); CREATININE FOR GFR 0.72 MG/DL (0.55-1.30); GLOMERULAR FILTRATION RATE > 60.0 (>60); GLUCOSE, FASTING 80 MG/DL (70-100); POTASSIUM SERUM 3.9 MEQ/L (3.5-5.1); SODIUM LEVEL 140 MEQ/L (136-145)
[2022-01-24] MEDS: APIXABAN 5 MG TAB (ELIQUIS) PO SCH (08:37)
[2022-01-24] MEDS: METOPROLOL SUCC *XL* 12.5MG PER 1/2 TAB (TopROL *XL*) PO SCH (08:37)
[2022-01-24] MEDS: FUROSEMIDE 20 MG TAB PO SCH (08:38)
[2022-01-24] MEDS ORDERED: METO1TAB32 PO (09:33)
[2022-01-24] MEDS ORDERED: AMIO200T49 PO (09:33)
[2022-01-24] MEDS: AMIODARONE 200 MG TAB (PACERONE) PO SCH (10:31)
== END 2022-01-24 12:24 | disposition home or self-care (01) | DRG 204 ==
LOC: M ED 13:35 → EDBD 13:35 → OBSVTOIN 13:36 → M ED INP 13:36 → M ICU 01-22 00:17
PROVIDERS: ADMIT Internal Medicine; ATTEND Internal Medicine
PROC: BW24YZZ Computerized Tomography (CT Scan) of Chest and Abdomen using Other Contrast (ICD-10-PCS; 2022-01-21)
PROC: B246ZZZ Ultrasonography of Right and Left Heart (ICD-10-PCS; principal; 2022-01-22)
DX: R55 Syncope and collapse (principal); Z95.810 Presence of automatic (implantable) cardiac defibrillator; Z86.711 Personal history of pulmonary embolism; G71.11 Myotonic muscular dystrophy; I42.0 Dilated cardiomyopathy; Z20.822 Contact with and (suspected) exposure to COVID-19; Z88.6 Allergy status to analgesic agent; I47.2 Ventricular tachycardia; R53.1 Weakness; I95.9 Hypotension, unspecified; T46.2X5A Adverse effect of other antidysrhythmic drugs, initial encounter; Z88.5 Allergy status to narcotic agent; Z88.8 Allergy status to other drugs, medicaments and biological substances

== ENCOUNTER 2022-02-12 09:50 | Emergency (ER) | payer OTHER ==
[~2022-02-12] VITALS: Ht 175.3 cm; Wt 116.8 kg
[~2022-02-12 09:50] MED LIST changes: +METO1TAB32 PO
[2022-02-12 11:07] LABS: BASO % 0.3 % (0.0-1.0); EOS % 0.3 % (0.0-3.0); HEMATOCRIT 39.2 % (36.0-47.0); HEMOGLOBIN 13.2 g/dl (12.0-15.5); LYMPH # 0.6 10^3/uL (1.5-5.0); LYMPH % 7.9 % (24.0-44.0); MEAN CORPUSCULAR HGB CONC 33.7 g/dl (32.0-36.5); MONO # 0.2 10^3/uL (0.0-0.8); MONO % 3.3 % (2.0-8.0); NEUTROPHILS # 6.2 10^3/uL (1.5-8.5); NEUTROPHILS % 87.9 % (36.0-66.0); PLATELET COUNT, AUTOMATED 121 10^3/uL (150-450)
[2022-02-12 11:27] LABS: BLOOD UREA NITROGEN 15 MG/DL (7-18); CALCIUM LEVEL 9.1 MG/DL (8.5-10.1); CARBON DIOXIDE LEVEL 22 MEQ/L (21-32); CHLORIDE LEVEL 114 MEQ/L (98-107); CREATININE FOR GFR 0.98 MG/DL (0.55-1.30); GLOMERULAR FILTRATION RATE > 60.0 (>60); GLUCOSE, FASTING 97 MG/DL (70-100); POTASSIUM SERUM 3.7 MEQ/L (3.5-5.1); SODIUM LEVEL 145 MEQ/L (136-145)
[2022-02-12 11:30] LABS: CK-MB VALUE MASS 3.7 NG/ML (<3.6); MB/CK RELATIVE INDEX 1.23 (< OR =4)
[2022-02-12 12:53] LABS: CK-MB VALUE MASS 3.5 NG/ML (<3.6); MB/CK RELATIVE INDEX 1.25 (< OR =4)
[2022-02-12 14:02] VITALS: BP 92/53
== END 2022-02-12 14:07 | disposition home or self-care (01) ==
LOC: M ED 09:50 → EDBD 09:50 → M ED 14:07
DX: R00.2 Palpitations (principal); R07.9 Chest pain, unspecified; I25.10 Atherosclerotic heart disease of native coronary artery without angina pectoris; E07.9 Disorder of thyroid, unspecified; Z86.718 Personal history of other venous thrombosis and embolism; Z79.899 Other long term (current) drug therapy; Z79.01 Long term (current) use of anticoagulants; Z95.0 Presence of cardiac pacemaker; Z88.5 Allergy status to narcotic agent; Z88.8 Allergy status to other drugs, medicaments and biological substances

== ENCOUNTER 2022-03-20 23:37 | Emergency (ER) | payer OTHER ==
[~2022-03-20] VITALS: Ht 175.3 cm; Wt 160.0 kg
[2022-03-21 00:31] LABS: BASO % 0.5 % (0.0-1.0); EOS # 0.1 10^3/uL (0.0-0.5); EOS % 1.1 % (0.0-3.0); HEMATOCRIT 42.5 % (36.0-47.0); HEMOGLOBIN 13.9 g/dl (12.0-15.5); LYMPH # 1.9 10^3/uL (1.5-5.0); LYMPH % 30.3 % (24.0-44.0); MEAN CORPUSCULAR HEMOGLOBIN 32.6 pg (27.0-33.0); MEAN CORPUSCULAR HGB CONC 32.7 g/dl (32.0-36.5); MEAN CORPUSCULAR VOLUME 99.8 fl (80.0-96.0); MONO # 0.4 10^3/uL (0.0-0.8); MONO % 6.4 % (2.0-8.0); NEUTROPHILS # 3.9 10^3/uL (1.5-8.5); NEUTROPHILS % 61.4 % (36.0-66.0); PLATELET COUNT, AUTOMATED 170 10^3/uL (150-450); RED BLOOD COUNT 4.26 10^6/uL (4.00-5.40); WHITE BLOOD COUNT 6.3 10^3/uL (4.0-10.0)
[2022-03-21 01:05] LABS: MB/CK RELATIVE INDEX 2.23 (< OR =4)
[2022-03-21 01:11] VITALS: BP 123/67
[2022-03-21 01:19] LABS: ALBUMIN 3.6 GM/DL (3.2-5.2); ALT/SGPT 28 U/L (12-78); BILIRUBIN,DIRECT 0.1 MG/DL (0.0-0.2); BILIRUBIN,TOTAL 0.3 MG/DL (0.2-1.0); BLOOD UREA NITROGEN 12 MG/DL (7-18); CALCIUM LEVEL 9.2 MG/DL (8.5-10.1); CARBON DIOXIDE LEVEL 24 MEQ/L (21-32); CHLORIDE LEVEL 109 MEQ/L (98-107); CREATININE FOR GFR 0.75 MG/DL (0.55-1.30); FREE T4 1.01 NG/DL (0.76-1.46); GLOMERULAR FILTRATION RATE > 60.0 (>60); GLUCOSE, FASTING 90 MG/DL (70-100); LIPASE 149 U/L (73-393); MAGNESIUM LEVEL 2.1 MG/DL (1.8-2.4); NT-PRO BNP 327 PG/ML (<125); POTASSIUM SERUM 3.8 MEQ/L (3.5-5.1); SODIUM LEVEL 141 MEQ/L (136-145); TOTAL PROTEIN 7.4 GM/DL (6.4-8.2)
== END 2022-03-21 01:27 | disposition left against medical advice (07) ==
LOC: M ED 23:37 → EDBD 23:37 → M ED 03-21 01:27
DX: Z53.29 Procedure and treatment not carried out because of patient's decision for other reasons (principal)

== ENCOUNTER 2022-03-31 01:15 | Emergency (ER) | payer OTHER ==
[~2022-03-31] VITALS: Ht 175.3 cm; Wt 115.0 kg
[2022-03-31 02:28] LABS: BASO % 0.7 % (0.0-1.0); EOS # 0.1 10^3/uL (0.0-0.5); EOS % 1.5 % (0.0-3.0); HEMATOCRIT 40.9 % (36.0-47.0); HEMOGLOBIN 13.4 g/dl (12.0-15.5); LYMPH # 2.1 10^3/uL (1.5-5.0); LYMPH % 34.9 % (24.0-44.0); MEAN CORPUSCULAR HEMOGLOBIN 32.4 pg (27.0-33.0); MEAN CORPUSCULAR HGB CONC 32.8 g/dl (32.0-36.5); MEAN CORPUSCULAR VOLUME 98.8 fl (80.0-96.0); MONO # 0.4 10^3/uL (0.0-0.8); MONO % 7.4 % (2.0-8.0); NEUTROPHILS # 3.3 10^3/uL (1.5-8.5); NEUTROPHILS % 55.3 % (36.0-66.0); PLATELET COUNT, AUTOMATED 162 10^3/uL (150-450); RED BLOOD COUNT 4.14 10^6/uL (4.00-5.40)
[2022-03-31 03:05] LABS: HCG, SERUM QUALITATIVE NEGATIVE (NEGATIVE)
[2022-03-31 03:14] LABS: CK-MB VALUE MASS 3.7 NG/ML (<3.6); MB/CK RELATIVE INDEX 1.53 (< OR =4)
[2022-03-31 03:21] LABS: BLOOD UREA NITROGEN 16 MG/DL (7-18); CARBON DIOXIDE LEVEL 25 MEQ/L (21-32); CHLORIDE LEVEL 111 MEQ/L (98-107); CREATININE FOR GFR 0.78 MG/DL (0.55-1.30); FREE T4 0.87 NG/DL (0.76-1.46); GLOMERULAR FILTRATION RATE > 60.0 (>60); GLUCOSE, FASTING 100 MG/DL (70-100); MAGNESIUM LEVEL 1.9 MG/DL (1.8-2.4); POTASSIUM SERUM 3.9 MEQ/L (3.5-5.1); SODIUM LEVEL 141 MEQ/L (136-145)
[2022-03-31 04:18] LABS: CK-MB VALUE MASS 3.6 NG/ML (<3.6); MB/CK RELATIVE INDEX 1.72 (< OR =4)
[2022-03-31 06:00] VITALS: BP 107/66
== END 2022-03-31 06:19 | disposition home or self-care (01) ==
LOC: M ED 01:15
DX: I47.2 Ventricular tachycardia (principal); Z95.0 Presence of cardiac pacemaker; Z88.5 Allergy status to narcotic agent; Z88.8 Allergy status to other drugs, medicaments and biological substances

== ENCOUNTER 2022-04-08 19:37 | Inpatient (IN) | payer OTHER ==
[~2022-04-08] VITALS: Ht 172.7 cm; Wt 116.9 kg
[2022-04-08 20:47] LABS: BASO % 0.3 % (0.0-1.0); EOS # 0.1 10^3/uL (0.0-0.5); EOS % 1.3 % (0.0-3.0); HEMOGLOBIN 13.2 g/dl (12.0-15.5); LYMPH % 10.4 % (24.0-44.0); MEAN CORPUSCULAR HEMOGLOBIN 32.4 pg (27.0-33.0); MONO # 0.5 10^3/uL (0.0-0.8); NEUTROPHILS # 7.6 10^3/uL (1.5-8.5); NEUTROPHILS % 82.6 % (36.0-66.0); PLATELET COUNT, AUTOMATED 162 10^3/uL (150-450); RED BLOOD COUNT 4.08 10^6/uL (4.00-5.40); WHITE BLOOD COUNT 9.3 10^3/uL (4.0-10.0)
[2022-04-08 21:19] LABS: CK-MB VALUE MASS 2.9 NG/ML (<3.6); MB/CK RELATIVE INDEX 1.67 (< OR =4)
[2022-04-08 21:21] LABS: INR 0.9; PARTIAL THROMBOPLASTIN TIME 29.5 SECONDS (25.9-37.0); PROTHROMBIN TIME 12.6 SECONDS (12.7-14.5)
[2022-04-08 21:27] LABS: ALBUMIN 3.5 GM/DL (3.2-5.2); ALT/SGPT 53 U/L (12-78); BILIRUBIN,DIRECT 0.1 MG/DL (0.0-0.2); BILIRUBIN,TOTAL 0.3 MG/DL (0.2-1.0); BLOOD UREA NITROGEN 10 MG/DL (7-18); CALCIUM LEVEL 8.8 MG/DL (8.5-10.1); CARBON DIOXIDE LEVEL 24 MEQ/L (21-32); CHLORIDE LEVEL 112 MEQ/L (98-107); CREATININE FOR GFR 0.79 MG/DL (0.55-1.30); FREE T4 1.02 NG/DL (0.76-1.46); GLOMERULAR FILTRATION RATE > 60.0 (>60); GLUCOSE, FASTING 118 MG/DL (70-100); MAGNESIUM LEVEL 1.8 MG/DL (1.8-2.4); PHOSPHORUS LEVEL 2.3 MG/DL (2.5-4.9); POTASSIUM SERUM 3.7 MEQ/L (3.5-5.1); SODIUM LEVEL 143 MEQ/L (136-145); TOTAL PROTEIN 7.1 GM/DL (6.4-8.2)
[2022-04-08] MEDS ORDERED: AMIODARONE 150MG/3ML INJ (J0282) IVP STA (21:45)
[2022-04-08 21:58] LABS: D-DIMER QUANT 588.51 ng/ml (<500)
[2022-04-08 22:35] LABS: CK-MB VALUE MASS 2.4 NG/ML (<3.6); MB/CK RELATIVE INDEX 1.36 (< OR =4)
[2022-04-08] MEDS ORDERED: HOME MED LIST COMPLETE! XX SCH (23:10)
[2022-04-08] MEDS ORDERED: METO1TAB87 PO (23:10)
[2022-04-08] MEDS ORDERED: BENZ-18 PO (23:10)
[2022-04-08] MEDS ORDERED: AMIO200T49 PO (23:10)
[2022-04-08] MEDS ORDERED: ONDA8TAB8 PO (23:10)
[2022-04-08] MEDS ORDERED: POTASSIUM CHLORIDE 10MEQ SR TABLET PO ONE (23:40)
[2022-04-08] MEDS ORDERED: METOPROLOL TART 25 MG TABLET PO ONE (23:40)
[2022-04-09] VITALS (33 sets, daily range): BP systolic 85–116; BP diastolic 50–70; PULSE 160
[2022-04-09 06:11] LABS: BLOOD UREA NITROGEN 8 MG/DL (7-18); CARBON DIOXIDE LEVEL 26 MEQ/L (21-32); CHLORIDE LEVEL 111 MEQ/L (98-107); CREATININE FOR GFR 0.66 MG/DL (0.55-1.30); GLOMERULAR FILTRATION RATE > 60.0 (>60); GLUCOSE, FASTING 88 MG/DL (70-100); MAGNESIUM LEVEL 2.2 MG/DL (1.8-2.4); POTASSIUM SERUM 3.9 MEQ/L (3.5-5.1); SODIUM LEVEL 143 MEQ/L (136-145)
[2022-04-09] MEDS: HEPARIN SOD (PORCINE) 5000UNITS/ML 1ML VIAL/SYRINGE SC SCH ×3 (06:40→21:25)
[2022-04-09] MEDS: AMIODARONE 200 MG TAB (PACERONE) PO SCH ×2 (08:19→20:05)
[2022-04-09] MEDS: METOPROLOL TART 25 MG TABLET PO SCH ×2 (08:20→20:06)
[2022-04-09] MEDS: BENZONATATE 100MG CAPSULE PO PRN ×2 (15:07→21:25)
[2022-04-09] MEDS ORDERED: AMIODARONE HCL 150 MG in IV 1 EA IV STA (18:40)
[2022-04-09] MEDS ORDERED: AMIODARONE HCL 150 MG/100 ML PREMIXED BAG (NEXTERONE) (J0282 PER 30MG) As Ordered ONE (18:40)
[2022-04-10] VITALS (31 sets, daily range): BP systolic 88–129; BP diastolic 52–84; PULSE 72
[2022-04-10] MEDS: HEPARIN SOD (PORCINE) 5000UNITS/ML 1ML VIAL/SYRINGE SC SCH ×3 (05:07→22:04)
[2022-04-10] MEDS ORDERED: MORPHINE 4 MG/ML 1ML VIAL/SYRINGE IV ONE (07:00)
[2022-04-10 07:29] LABS: BLOOD UREA NITROGEN 8 MG/DL (7-18); CALCIUM LEVEL 8.8 MG/DL (8.5-10.1); CARBON DIOXIDE LEVEL 26 MEQ/L (21-32); CHLORIDE LEVEL 109 MEQ/L (98-107); CREATININE FOR GFR 0.73 MG/DL (0.55-1.30); GLOMERULAR FILTRATION RATE > 60.0 (>60); GLUCOSE, FASTING 91 MG/DL (70-100); SODIUM LEVEL 138 MEQ/L (136-145)
[2022-04-10] MEDS: METOPROLOL TART 25 MG TABLET PO SCH (08:24)
[2022-04-10] MEDS: AMIODARONE 200 MG TAB (PACERONE) PO SCH ×2 (08:24→20:13)
[2022-04-10] MEDS ORDERED: ISOVUE-370 76% 100ML VIAL As Ordered ONE (11:59)
[2022-04-10] MEDS ORDERED: MORPHINE 4 MG/ML 1ML VIAL/SYRINGE IV PRN (13:30)
[2022-04-10] MEDS: MORPHINE 2 MG/ML 1ML VIAL IV PRN ×2 (13:54→23:48)
[2022-04-10] MEDS: cefTRIAXone SOD 1 GM in D5W MINI-BAG PLUS 50 ML IV SCH (18:30)
[2022-04-10] MEDS: METOPROLOL SUCC (TopROL XL) 100MG *XL* TAB PO SCH (20:13)
[2022-04-10] MEDS: BENZONATATE 100MG CAPSULE PO PRN (23:47)
[2022-04-11] VITALS (40 sets, daily range): BP systolic 86–150; BP diastolic 52–80; PULSE 74–90
[2022-04-11] MEDS: HEPARIN SOD (PORCINE) 5000UNITS/ML 1ML VIAL/SYRINGE SC SCH ×3 (05:27→21:28)
[2022-04-11] MEDS: SYMBICORT 160/4.5MCG INHALER 6GM INH SCH ×2 (08:00→19:52)
[2022-04-11] MEDS: AMIODARONE 200 MG TAB (PACERONE) PO SCH ×2 (08:36→21:28)
[2022-04-11] MEDS: DOXYCYCLINE HYCLATE 100MG TABLET PO SCH ×2 (13:50→21:28)
[2022-04-11] MEDS: cefTRIAXone SOD 1 GM in D5W MINI-BAG PLUS 50 ML IV SCH (17:49)
[2022-04-11] MEDS ORDERED: NAPROXEN 250 MG TAB PO PRN (18:40)
[2022-04-11] MEDS ORDERED: SYMBICORT 160/4.5MCG INHALER 6GM INH SCH (20:00)
[2022-04-11] MEDS: METOPROLOL SUCC (TopROL XL) 100MG *XL* TAB PO SCH (21:30)
[2022-04-11] MEDS: MORPHINE 2 MG/ML 1ML VIAL IV PRN (22:09)
[2022-04-12] VITALS (16 sets, daily range): BP systolic 85–102; BP diastolic 50–62
[2022-04-12] MEDS: HEPARIN SOD (PORCINE) 5000UNITS/ML 1ML VIAL/SYRINGE SC SCH (06:02)
[2022-04-12] MEDS: AMIODARONE 200 MG TAB (PACERONE) PO SCH (08:32)
[2022-04-12] MEDS: DOXYCYCLINE HYCLATE 100MG TABLET PO SCH (08:32)
[2022-04-12 08:38] LABS: BLOOD UREA NITROGEN 13 MG/DL (7-18); CREATININE FOR GFR 0.73 MG/DL (0.55-1.30); GLUCOSE, FASTING 83 MG/DL (70-100)
[2022-04-12 08:39] LABS: CALCIUM LEVEL 8.6 MG/DL (8.5-10.1); CARBON DIOXIDE LEVEL 25 MEQ/L (21-32); CHLORIDE LEVEL 110 MEQ/L (98-107); GLOMERULAR FILTRATION RATE > 60.0 (>60); POTASSIUM SERUM 3.9 MEQ/L (3.5-5.1); SODIUM LEVEL 139 MEQ/L (136-145)
[2022-04-12] MEDS: SYMBICORT 160/4.5MCG INHALER 6GM INH SCH (09:08)
[2022-04-12] MEDS ORDERED: DOXY-350 PO (10:29)
[2022-04-12] MEDS ORDERED: SYMB16INH INH (10:29)
[2022-04-12] MEDS ORDERED: CEFD300C41 PO (10:29)
[2022-04-12] MEDS ORDERED: METO1TAB33 PO (10:29)
== END 2022-04-12 12:41 | disposition home or self-care (01) | DRG 201 ==
LOC: M ED 19:37 → M ED INP 23:58 → ENRESERV 04-09 00:39 → M ICU 04-09 01:06 → OBSVTOIN 04-10 11:17
PROVIDERS: ADMIT Internal Medicine; ATTEND Internal Medicine
DX: I47.2 Ventricular tachycardia (principal); J18.9 Pneumonia, unspecified organism; I43 Cardiomyopathy in diseases classified elsewhere; I50.22 Chronic systolic (congestive) heart failure; G71.11 Myotonic muscular dystrophy; G47.33 Obstructive sleep apnea (adult) (pediatric); E66.9 Obesity, unspecified; B34.8 Other viral infections of unspecified site; I44.7 Left bundle-branch block, unspecified; Z86.711 Personal history of pulmonary embolism; Z85.038 Personal history of other malignant neoplasm of large intestine; Z95.810 Presence of automatic (implantable) cardiac defibrillator; Z79.899 Other long term (current) drug therapy; Z88.6 Allergy status to analgesic agent; Z88.5 Allergy status to narcotic agent; Z88.8 Allergy status to other drugs, medicaments and biological substances; Z68.39 Body mass index [BMI] 39.0-39.9, adult

== ENCOUNTER 2022-04-15 11:43 | Inpatient (IN) | payer OTHER ==
[~2022-04-15] VITALS: Ht 175.3 cm; Wt 116.6 kg
[~2022-04-15 11:43] MED LIST changes: +BENZ-18 PO; +CEFD300C41 PO; +DOXY-350 PO; +METO1TAB33 PO; +METO1TAB87 PO; +ONDA8TAB8 PO; +SYMB16INH INH
[2022-04-15] MEDS ORDERED: IPRATROPIUM 0.5MG/ALBUTEROL 2.5MG INH SOL UD 3ML (DUONEB) NEB ONE (12:15)
[2022-04-15 13:33] LABS: BASO # 0.1 10^3/uL (0.0-0.2); EOS # 0.2 10^3/uL (0.0-0.5); HEMATOCRIT 42.3 % (36.0-47.0); HEMOGLOBIN 13.6 g/dl (12.0-15.5); LYMPH # 1.8 10^3/uL (1.5-5.0); LYMPH % 22.3 % (24.0-44.0); MEAN CORPUSCULAR HEMOGLOBIN 32.7 pg (27.0-33.0); MEAN CORPUSCULAR HGB CONC 32.2 g/dl (32.0-36.5); MEAN CORPUSCULAR VOLUME 101.7 fl (80.0-96.0); MONO # 0.4 10^3/uL (0.0-0.8); MONO % 5.4 % (2.0-8.0); NEUTROPHILS # 5.4 10^3/uL (1.5-8.5); NEUTROPHILS % 67.3 % (36.0-66.0); PLATELET COUNT, AUTOMATED 222 10^3/uL (150-450); RED BLOOD COUNT 4.16 10^6/uL (4.00-5.40); WHITE BLOOD COUNT 8.1 10^3/uL (4.0-10.0)
[2022-04-15 13:42] LABS: ABG BASE EXCESS -5.5 (-2.0-2.0); ABG HCO3 18.7 MEQ/L (22.0-26.0); ABG O2 SATURATION 97.9 % (95.0-99.0); ABG PARTIAL PRESSURE CO2 32.5 mmHg (35.0-45.0); ABG PARTIAL PRESSURE O2 110.6 mmHg (75.0-100.0); ABG TOTAL CO2 19.7 MEQ/L (22.0-29.0); ABG pH (ARTERIAL) 7.377 UNITS (7.350-7.450)
[2022-04-15 14:16] LABS: BLOOD UREA NITROGEN 15 MG/DL (7-18); CARBON DIOXIDE LEVEL 27 MEQ/L (21-32); CHLORIDE LEVEL 110 MEQ/L (98-107); CREATININE FOR GFR 0.74 MG/DL (0.55-1.30); GLOMERULAR FILTRATION RATE > 60.0 (>60); GLUCOSE, FASTING 89 MG/DL (70-100); POTASSIUM SERUM 4.7 MEQ/L (3.5-5.1); SODIUM LEVEL 140 MEQ/L (136-145)
[2022-04-15 14:17] LABS: ALBUMIN 3.6 GM/DL (3.2-5.2); ALT/SGPT 128 U/L (12-78); BILIRUBIN,DIRECT < 0.1 MG/DL (0.0-0.2); BILIRUBIN,TOTAL 0.3 MG/DL (0.2-1.0); CALCIUM LEVEL 9.2 MG/DL (8.5-10.1); NT-PRO BNP 955 PG/ML (<125); THYROXINE (T4) 8.4 UG/DL (4.5-12.0); TOTAL PROTEIN 7.4 GM/DL (6.4-8.2)
[2022-04-15] MEDS ORDERED: FUROSEMIDE 40MG/4ML VIAL (J1940) IV ONE (15:00)
[2022-04-15 16:53] LABS: MAGNESIUM LEVEL 2.2 MG/DL (1.8-2.4)
[2022-04-15] MEDS ORDERED: DOXY100T PO (18:00)
[2022-04-15] MEDS ORDERED: CEFD300C41 PO (18:00)
[2022-04-15] MEDS ORDERED: SYMB16INH INH (18:00)
[2022-04-15] MEDS ORDERED: ALEV1TAB PO (18:01)
[2022-04-15] MEDS ORDERED: HOME MED LIST COMPLETE! XX SCH (18:05)
[2022-04-15 18:15] VITALS: BP 97/58
[2022-04-15] MEDS ORDERED: SYMBICORT 160/4.5MCG INHALER 6GM INH PRN (18:15)
[2022-04-15 20:00] VITALS: BP 86/60
[2022-04-15] MEDS: CEFDINIR 300 MG CAP (OMNICEF) PO SCH (20:40)
[2022-04-15] MEDS: DOXYCYCLINE HYCLATE 100MG TABLET PO SCH (20:40)
[2022-04-15] MEDS: AMIODARONE 200 MG TAB (PACERONE) PO SCH (20:41)
[2022-04-15] MEDS: METOPROLOL SUCC (TopROL XL) 100MG *XL* TAB PO SCH (20:41)
[2022-04-15] MEDS: NAPROXEN 250 MG TAB PO PRN (21:11)
[2022-04-16] VITALS (18 sets, daily range): BP systolic 84–94; BP diastolic 50–60; O2SAT 90–96
[2022-04-16] MEDS ORDERED: METOCLOPRAMIDE 5 MG TAB PO ONE (01:05)
[2022-04-16 06:41] LABS: HEMATOCRIT 39.4 % (36.0-47.0); HEMOGLOBIN 12.7 g/dl (12.0-15.5); MEAN CORPUSCULAR HEMOGLOBIN 32.1 pg (27.0-33.0); MEAN CORPUSCULAR HGB CONC 32.2 g/dl (32.0-36.5); MEAN CORPUSCULAR VOLUME 99.5 fl (80.0-96.0); PLATELET COUNT, AUTOMATED 161 10^3/uL (150-450); RED BLOOD COUNT 3.96 10^6/uL (4.00-5.40); WHITE BLOOD COUNT 6.5 10^3/uL (4.0-10.0)
[2022-04-16 06:53] LABS: BLOOD UREA NITROGEN 16 MG/DL (7-18); CALCIUM LEVEL 8.8 MG/DL (8.5-10.1); CARBON DIOXIDE LEVEL 27 MEQ/L (21-32); CHLORIDE LEVEL 107 MEQ/L (98-107); CREATININE FOR GFR 0.75 MG/DL (0.55-1.30); GLOMERULAR FILTRATION RATE > 60.0 (>60); GLUCOSE, FASTING 77 MG/DL (70-100); MAGNESIUM LEVEL 2.2 MG/DL (1.8-2.4); POTASSIUM SERUM 3.8 MEQ/L (3.5-5.1); SODIUM LEVEL 140 MEQ/L (136-145)
[2022-04-16] MEDS: ENOXAPARIN 40MG/0.4ML SYRINGE (J1650 PER 10MG) SC SCH (09:20)
[2022-04-16] MEDS: FUROSEMIDE 20MG/2ML VIAL (J1940) IV SCH ×2 (09:20→11:19)
[2022-04-16] MEDS: CEFDINIR 300 MG CAP (OMNICEF) PO SCH ×2 (09:20→21:14)
[2022-04-16] MEDS: DOXYCYCLINE HYCLATE 100MG TABLET PO SCH ×2 (09:21→21:15)
[2022-04-16] MEDS: AMIODARONE 200 MG TAB (PACERONE) PO SCH ×2 (09:21→21:15)
[2022-04-16] MEDS: guaiFENesin ER 600 MG TAB PO SCH ×2 (10:49→21:15)
[2022-04-16] MEDS: POTASSIUM CHLORIDE 10% LIQ 20 MEQ/15 ML UDC PO ONE ×2 (10:50→10:57)
[2022-04-16] MEDS ORDERED: POTASSIUM CHLORIDE 10MEQ SR TABLET PO ONE (13:00)
[2022-04-16] MEDS ORDERED: ONDANSETRON 4MG 2ML VIAL IV ONE (13:55)
[2022-04-16] MEDS ORDERED: INFLUENZA QUADRIVALENT PF VACCINE 0.5ML SYRINGE IM.IMMUN ONE (15:00)
[2022-04-16] MEDS: METOPROLOL SUCC (TopROL XL) 100MG *XL* TAB PO SCH (21:00)
[2022-04-17] VITALS (8 sets, daily range): BP systolic 90–110; BP diastolic 53–72; O2SAT 92–94
[2022-04-17] MEDS: NAPROXEN 250 MG TAB PO PRN (00:57)
[2022-04-17] MEDS ORDERED: METOCLOPRAMIDE 5 MG TAB PO ONE (02:35)
[2022-04-17 06:05] LABS: HEMATOCRIT 40.2 % (36.0-47.0); MEAN CORPUSCULAR HEMOGLOBIN 32.4 pg (27.0-33.0); MEAN CORPUSCULAR HGB CONC 32.3 g/dl (32.0-36.5); MEAN CORPUSCULAR VOLUME 100.2 fl (80.0-96.0); PLATELET COUNT, AUTOMATED 183 10^3/uL (150-450); RED BLOOD COUNT 4.01 10^6/uL (4.00-5.40); WHITE BLOOD COUNT 5.5 10^3/uL (4.0-10.0)
[2022-04-17 06:48] LABS: BLOOD UREA NITROGEN 19 MG/DL (7-18); CALCIUM LEVEL 9.1 MG/DL (8.5-10.1); CARBON DIOXIDE LEVEL 26 MEQ/L (21-32); CHLORIDE LEVEL 108 MEQ/L (98-107); CREATININE FOR GFR 0.77 MG/DL (0.55-1.30); GLOMERULAR FILTRATION RATE > 60.0 (>60); GLUCOSE, FASTING 78 MG/DL (70-100); MAGNESIUM LEVEL 2.1 MG/DL (1.8-2.4); POTASSIUM SERUM 4.3 MEQ/L (3.5-5.1); SODIUM LEVEL 139 MEQ/L (136-145)
[2022-04-17] MEDS: AMIODARONE 200 MG TAB (PACERONE) PO SCH (08:19)
[2022-04-17] MEDS: guaiFENesin ER 600 MG TAB PO SCH (08:19)
[2022-04-17] MEDS: DOXYCYCLINE HYCLATE 100MG TABLET PO SCH (08:19)
[2022-04-17] MEDS: CEFDINIR 300 MG CAP (OMNICEF) PO SCH (08:19)
[2022-04-17] MEDS: ENOXAPARIN 40MG/0.4ML SYRINGE (J1650 PER 10MG) SC SCH (08:19)
[2022-04-17] MEDS: FUROSEMIDE 20MG/2ML VIAL (J1940) IV SCH (08:20)
[2022-04-17] MEDS ORDERED: FURO20TA2 PO (12:02)
[2022-04-17] MEDS ORDERED: MUCI600T31 PO (12:02)
[2022-04-17] MEDS ORDERED: POTA10TA67 PO (12:02)
== END 2022-04-17 13:36 | disposition home or self-care (01) | DRG 201 ==
LOC: M ED 11:43 → EDBD 11:43 → M ED INP 11:44 → ENRESERV 16:44 → M PCU 18:06 → OBSVTOIN 04-16 17:10
PROVIDERS: ADMIT Internal Medicine; ATTEND Internal Medicine
DX: I47.2 Ventricular tachycardia (principal); J18.9 Pneumonia, unspecified organism; I50.22 Chronic systolic (congestive) heart failure; I42.0 Dilated cardiomyopathy; G71.11 Myotonic muscular dystrophy; I27.20 Pulmonary hypertension, unspecified; D73.89 Other diseases of spleen; G47.33 Obstructive sleep apnea (adult) (pediatric); Z91.19 Patient's noncompliance with other medical treatment and regimen; E02 Subclinical iodine-deficiency hypothyroidism; Z86.711 Personal history of pulmonary embolism; Z79.2 Long term (current) use of antibiotics; Z79.899 Other long term (current) drug therapy; Z20.822 Contact with and (suspected) exposure to COVID-19; Z88.6 Allergy status to analgesic agent; Z88.8 Allergy status to other drugs, medicaments and biological substances; Z95.810 Presence of automatic (implantable) cardiac defibrillator; B34.8 Other viral infections of unspecified site; I44.0 Atrioventricular block, first degree; I44.7 Left bundle-branch block, unspecified; I95.1 Orthostatic hypotension

== ENCOUNTER 2022-04-22 14:49 | Emergency (ER) | payer OTHER ==
[~2022-04-22] VITALS: Ht 175.3 cm; Wt 119.1 kg
[~2022-04-22 14:49] MED LIST changes: +ALEV1TAB PO; +DOXY100T PO; -MAGN1.743 PO; +MAGN296S5 PO; +MUCI600T31 PO; +POTA10TA67 PO
[2022-04-22 18:14] LABS: BASO # 0.1 10^3/uL (0.0-0.2); BASO % 0.9 % (0.0-1.0); EOS # 0.1 10^3/uL (0.0-0.5); EOS % 1.6 % (0.0-3.0); HEMATOCRIT 43.6 % (36.0-47.0); HEMOGLOBIN 13.7 g/dl (12.0-15.5); LYMPH # 1.7 10^3/uL (1.5-5.0); LYMPH % 24.5 % (24.0-44.0); MEAN CORPUSCULAR HGB CONC 31.4 g/dl (32.0-36.5); MEAN CORPUSCULAR VOLUME 101.9 fl (80.0-96.0); MONO # 0.3 10^3/uL (0.0-0.8); MONO % 4.6 % (2.0-8.0); NEUTROPHILS # 4.8 10^3/uL (1.5-8.5); NEUTROPHILS % 68.1 % (36.0-66.0); PLATELET COUNT, AUTOMATED 196 10^3/uL (150-450); RED BLOOD COUNT 4.28 10^6/uL (4.00-5.40)
[2022-04-22 18:36] LABS: ALBUMIN 4.1 GM/DL (3.2-5.2); ALT/SGPT 64 U/L (12-78); BILIRUBIN,DIRECT 0.2 MG/DL (0.0-0.2); BILIRUBIN,TOTAL 0.5 MG/DL (0.2-1.0); BLOOD UREA NITROGEN 13 MG/DL (7-18); CALCIUM LEVEL 9.6 MG/DL (8.5-10.1); CARBON DIOXIDE LEVEL 27 MEQ/L (21-32); CHLORIDE LEVEL 106 MEQ/L (98-107); CREATININE FOR GFR 0.73 MG/DL (0.55-1.30); GLOMERULAR FILTRATION RATE > 60.0 (>60); GLUCOSE, FASTING 83 MG/DL (70-100); LIPASE 93 U/L (73-393); POTASSIUM SERUM 3.9 MEQ/L (3.5-5.1); SODIUM LEVEL 139 MEQ/L (136-145); TOTAL PROTEIN 8.4 GM/DL (6.4-8.2)
[2022-04-22 18:45] VITALS: BP 105/62
[2022-04-22] MEDS ORDERED: MAGNESIUM CITRATE 300 ML BTL PO ONE (18:55)
== END 2022-04-22 19:16 | disposition home or self-care (01) ==
LOC: EDBD 14:49 → M ED 14:49
DX: K59.00 Constipation, unspecified (principal); I11.0 Hypertensive heart disease with heart failure; I50.9 Heart failure, unspecified; Z88.6 Allergy status to analgesic agent; Z88.8 Allergy status to other drugs, medicaments and biological substances

== ENCOUNTER 2022-05-01 23:45 | Emergency (ER) | payer OTHER ==
[~2022-05-01] VITALS: Ht 175.3 cm; Wt 114.5 kg
[2022-05-02 02:25] LABS: BASO % 0.6 % (0.0-1.0); EOS # 0.1 10^3/uL (0.0-0.5); EOS % 1.4 % (0.0-3.0); HEMATOCRIT 43.8 % (36.0-47.0); HEMOGLOBIN 13.9 g/dl (12.0-15.5); LYMPH # 1.9 10^3/uL (1.5-5.0); MEAN CORPUSCULAR HEMOGLOBIN 31.8 pg (27.0-33.0); MEAN CORPUSCULAR HGB CONC 31.7 g/dl (32.0-36.5); MEAN CORPUSCULAR VOLUME 100.2 fl (80.0-96.0); MONO # 0.4 10^3/uL (0.0-0.8); MONO % 5.9 % (2.0-8.0); NEUTROPHILS # 4.6 10^3/uL (1.5-8.5); PLATELET COUNT, AUTOMATED 147 10^3/uL (150-450); RED BLOOD COUNT 4.37 10^6/uL (4.00-5.40)
[2022-05-02 02:46] LABS: PLATELET CLUMPS SMALL AMT; PLATELET ESTIMATE NORMAL (NORMAL)
[2022-05-02 03:04] LABS: BLOOD UREA NITROGEN 25 MG/DL (7-18); CALCIUM LEVEL 9.7 MG/DL (8.5-10.1); CARBON DIOXIDE LEVEL 30 MEQ/L (21-32); CHLORIDE LEVEL 103 MEQ/L (98-107); CREATININE FOR GFR 0.97 MG/DL (0.55-1.30); GLOMERULAR FILTRATION RATE > 60.0 (>60); GLUCOSE, FASTING 94 MG/DL (70-100); POTASSIUM SERUM 3.1 MEQ/L (3.5-5.1); SODIUM LEVEL 137 MEQ/L (136-145)
[2022-05-02 03:13] LABS: CPK CREATINE PHOSPHOKINASE 400 U/L (26-192)
[2022-05-02] MEDS ORDERED: POTASSIUM CHLORIDE 10MEQ SR TABLET PO ONE (07:55)
[2022-05-02 08:21] VITALS: BP 118/68
== END 2022-05-02 08:23 | disposition home or self-care (01) ==
LOC: M ED 23:45
DX: I44.0 Atrioventricular block, first degree (principal); I50.9 Heart failure, unspecified; E86.0 Dehydration; E87.6 Hypokalemia; D69.6 Thrombocytopenia, unspecified; Z88.6 Allergy status to analgesic agent; Z88.8 Allergy status to other drugs, medicaments and biological substances; Z90.49 Acquired absence of other specified parts of digestive tract; Z95.0 Presence of cardiac pacemaker

== ENCOUNTER 2022-05-14 07:01 | Observation (INO) | payer OTHER ==
[~2022-05-14] VITALS: Ht 175.3 cm; Wt 119.0 kg
[2022-05-14] MEDS ORDERED: ELIQ5TAB PO (07:12)
[2022-05-14] MEDS ORDERED: ISOVUE-370 76% 100ML VIAL As Ordered ONE (09:45)
[2022-05-14 09:52] LABS: BASO % 0.6 % (0.0-1.0); EOS % 0.6 % (0.0-3.0); HEMATOCRIT 39.5 % (36.0-47.0); HEMOGLOBIN 12.9 g/dl (12.0-15.5); LYMPH # 0.7 10^3/uL (1.5-5.0); LYMPH % 18.7 % (24.0-44.0); MEAN CORPUSCULAR HGB CONC 32.7 g/dl (32.0-36.5); MONO # 0.3 10^3/uL (0.0-0.8); MONO % 7.5 % (2.0-8.0); NEUTROPHILS # 2.6 10^3/uL (1.5-8.5); NEUTROPHILS % 72.3 % (36.0-66.0); PLATELET COUNT, AUTOMATED 139 10^3/uL (150-450); RED BLOOD COUNT 3.91 10^6/uL (4.00-5.40); WHITE BLOOD COUNT 3.6 10^3/uL (4.0-10.0)
[2022-05-14] MEDS ORDERED: NS 1,000 ML IV ONE (10:20)
[2022-05-14 10:27] LABS: CK-MB VALUE MASS 3.2 NG/ML (<3.6); MB/CK RELATIVE INDEX 1.31 (< OR =4)
[2022-05-14 10:46] LABS: ALBUMIN 3.7 GM/DL (3.2-5.2); BILIRUBIN,DIRECT 0.1 MG/DL (0.0-0.2); BILIRUBIN,TOTAL 0.6 MG/DL (0.2-1.0); FREE T4 1.08 NG/DL (0.76-1.46); THYROID STIMULATING HORMONE 5.44 uIU/ML (0.358-3.740); TOTAL PROTEIN 7.2 GM/DL (6.4-8.2)
[2022-05-14] MEDS ORDERED: ACETAMINOPHEN 500 MG TAB PO ONE (11:45)
[2022-05-14] MEDS ORDERED: ONDANSETRON 4MG 2ML VIAL IV ONE (11:45)
[2022-05-14 15:18] LABS: CK-MB VALUE MASS 3.3 NG/ML (<3.6); MB/CK RELATIVE INDEX 1.4 (< OR =4)
[2022-05-14] MEDS ORDERED: FURO20TA2 PO (15:22)
[2022-05-14] MEDS ORDERED: ADVI200T17 PO (15:22)
[2022-05-14] MEDS ORDERED: POTA10CA32 PO (15:22)
[2022-05-14] MEDS ORDERED: METO1TAB33 PO (15:22)
[2022-05-14] MEDS ORDERED: HOME MED LIST COMPLETE! XX SCH (15:25)
[2022-05-14 15:29] LABS: CK-MB VALUE MASS 3.3 NG/ML (<3.6); MB/CK RELATIVE INDEX 1.5 (< OR =4)
[2022-05-14] MEDS: LR 1,000 ML IV SCH (17:15)
[2022-05-14] MEDS: AMIODARONE 200 MG TAB (PACERONE) PO SCH (21:01)
[2022-05-14] MEDS: APIXABAN 5 MG TAB (ELIQUIS) PO SCH (21:01)
[2022-05-15] MEDS: LR 1,000 ML IV SCH (03:08)
[2022-05-15 06:34] LABS: HEMOGLOBIN 12.6 g/dl (12.0-15.5); MEAN CORPUSCULAR HEMOGLOBIN 32.9 pg (27.0-33.0); MEAN CORPUSCULAR HGB CONC 33.2 g/dl (32.0-36.5); MEAN CORPUSCULAR VOLUME 99.2 fl (80.0-96.0); PLATELET COUNT, AUTOMATED 120 10^3/uL (150-450); RED BLOOD COUNT 3.83 10^6/uL (4.00-5.40); WHITE BLOOD COUNT 2.6 10^3/uL (4.0-10.0)
[2022-05-15 07:06] LABS: BLOOD UREA NITROGEN 8 MG/DL (7-18); CALCIUM LEVEL 8.9 MG/DL (8.5-10.1); CARBON DIOXIDE LEVEL 22 MEQ/L (21-32); CHLORIDE LEVEL 113 MEQ/L (98-107); CREATININE FOR GFR 0.67 MG/DL (0.55-1.30); GLOMERULAR FILTRATION RATE > 60.0 (>60); GLUCOSE, FASTING 91 MG/DL (70-100); POTASSIUM SERUM 3.6 MEQ/L (3.5-5.1); SODIUM LEVEL 142 MEQ/L (136-145)
[2022-05-15 08:52] LABS: PLTBLUE- EDTA FREE CALC 99 K/mm3 (172-450); PLTBLUE- EDTA FREE MACHINE 90 10^3/uL (172-450)
[2022-05-15] MEDS ORDERED: FUROSEMIDE 20 MG TAB PO SCH (09:00)
[2022-05-15] MEDS ORDERED: POTASSIUM CHLORIDE 10MEQ SR TABLET PO SCH (09:00)
[2022-05-15] MEDS ORDERED: METOPROLOL SUCC (TopROL XL) 100MG *XL* TAB PO SCH (09:00)
[2022-05-15] MEDS ORDERED: METO1TAB33 PO (10:30)
[2022-05-15] MEDS ORDERED: FURO20TA2 PO (10:30)
[2022-05-15] MEDS: AMIODARONE 200 MG TAB (PACERONE) PO SCH (10:32)
[2022-05-15] MEDS: APIXABAN 5 MG TAB (ELIQUIS) PO SCH (10:32)
[2022-05-15 11:24] VITALS: BP 127/64
== END 2022-05-15 15:00 | disposition home or self-care (01) ==
LOC: M ED 07:01 → M ED INP 07:02
PROVIDERS: ADMIT Student in an Organized Health Care Education/Training Program; ATTEND Student in an Organized Health Care Education/Training Program
DX: R55 Syncope and collapse (principal); I47.20 Ventricular tachycardia, unspecified; Z95.0 Presence of cardiac pacemaker; I42.0 Dilated cardiomyopathy; Z86.711 Personal history of pulmonary embolism; G71.11 Myotonic muscular dystrophy; G47.33 Obstructive sleep apnea (adult) (pediatric); E02 Subclinical iodine-deficiency hypothyroidism; R10.9 Unspecified abdominal pain; A49.8 Other bacterial infections of unspecified site; R00.2 Palpitations; I44.7 Left bundle-branch block, unspecified; I50.9 Heart failure, unspecified; R79.1 Abnormal coagulation profile; R63.0 Anorexia; Z79.899 Other long term (current) drug therapy; Z79.01 Long term (current) use of anticoagulants; Z88.8 Allergy status to other drugs, medicaments and biological substances; Z88.5 Allergy status to narcotic agent; Z88.6 Allergy status to analgesic agent
CPT/HCPCS: 36415; 74177; 80047; 80048; 80076; 81000; 81015; 82550; 82553; 83690; 83735; 84439; 84443; 85025; 85027; 85049; 87088; 87186; 87486; 87581; 87633; 87798; 93005; 93041; 96361; 96374; 97112; 97116; 97162; 99285; J2405; Q9967

== ENCOUNTER 2022-06-14 22:33 | Inpatient (IN) | payer OTHER ==
[~2022-06-14] VITALS: Ht 175.3 cm; Wt 118.2 kg
[~2022-06-14 22:33] MED LIST changes: +ADVI200T17 PO; -DOXY-350 PO; +DOXY-444 PO; +POTA10CA32 PO
[2022-06-14 23:53] LABS: INR 1.06; PROTHROMBIN TIME 14.1 SECONDS (12.5-14.5)
[2022-06-14 23:54] LABS: PARTIAL THROMBOPLASTIN TIME 26.3 SECONDS (24.8-34.2)
[2022-06-15] VITALS (8 sets, daily range): BP systolic 90–109; BP diastolic 50–70
[2022-06-15 00:11] LABS: BASO % 0.5 % (0.0-1.0); EOS % 0.7 % (0.0-3.0); HEMATOCRIT 41.5 % (36.0-47.0); HEMOGLOBIN 13.4 g/dl (12.0-15.5); LYMPH # 1.2 10^3/uL (1.5-5.0); LYMPH % 22.2 % (24.0-44.0); MEAN CORPUSCULAR HEMOGLOBIN 32.1 pg (27.0-33.0); MEAN CORPUSCULAR HGB CONC 32.3 g/dl (32.0-36.5); MEAN CORPUSCULAR VOLUME 99.5 fl (80.0-96.0); MONO # 0.3 10^3/uL (0.0-0.8); MONO % 5.8 % (2.0-8.0); NEUTROPHILS # 3.8 10^3/uL (1.5-8.5); NEUTROPHILS % 70.1 % (36.0-66.0); PLATELET COUNT, AUTOMATED 173 10^3/uL (150-450); RED BLOOD COUNT 4.17 10^6/uL (4.00-5.40); WHITE BLOOD COUNT 5.5 10^3/uL (4.0-10.0)
[2022-06-15 00:20] LABS: ALBUMIN 3.7 G/DL (3.2-5.2); ALT/SGPT 28 U/L (7.0-40); BILIRUBIN,DIRECT 0.1 MG/DL (<0.4); BILIRUBIN,TOTAL 0.4 MG/DL (0.3-1.2); BLOOD UREA NITROGEN 13 MG/DL (9-23); CALCIUM LEVEL 9.4 MG/DL (8.5-10.1); CARBON DIOXIDE LEVEL 28 MMOL/L (20-31); CHLORIDE LEVEL 107 MMOL/L (98-107); CK-MB VALUE MASS 3.2 NG/ML (<3.6); CPK CREATINE PHOSPHOKINASE 265 U/L (34-145); CREATININE FOR GFR 0.81 MG/DL (0.55-1.30); FREE T4 0.98 NG/DL (0.89-1.76); GLOMERULAR FILTRATION RATE > 60.0 (>60); GLUCOSE, FASTING 103 MG/DL (60-100); POTASSIUM SERUM 3.6 MMOL/L (3.5-5.1); SODIUM LEVEL 145 MMOL/L (136-145); THYROID STIMULATING HORMONE 3.938 uIU/ML (0.55-4.78); TOTAL PROTEIN 6.8 G/DL (5.7-8.2)
[2022-06-15] MEDS ORDERED: FURO20TA2 PO (00:44)
[2022-06-15] MEDS ORDERED: METO1TAB7 PO (00:44)
[2022-06-15] MEDS ORDERED: HOME MED LIST COMPLETE! XX SCH (00:45)
[2022-06-15] MEDS ORDERED: MOM 30ML SUSPENSION UDC PO PRN (01:20)
[2022-06-15] MEDS ORDERED: ACETAMINOPHEN TAB 650MG DOSE (2X325MG) PO PRN (01:20)
[2022-06-15 01:26] LABS: RSV AMPLIFICATION NEGATIVE (NEGATIVE)
[2022-06-15 06:33] LABS: HEMATOCRIT 39.4 % (36.0-47.0); HEMOGLOBIN 13.1 g/dl (12.0-15.5); MEAN CORPUSCULAR HEMOGLOBIN 32.5 pg (27.0-33.0); MEAN CORPUSCULAR HGB CONC 33.2 g/dl (32.0-36.5); MEAN CORPUSCULAR VOLUME 97.8 fl (80.0-96.0); PLATELET COUNT, AUTOMATED 155 10^3/uL (150-450); RED BLOOD COUNT 4.03 10^6/uL (4.00-5.40); WHITE BLOOD COUNT 4.8 10^3/uL (4.0-10.0)
[2022-06-15 07:03] LABS: BLOOD UREA NITROGEN 12 MG/DL (9-23); CALCIUM LEVEL 9.1 MG/DL (8.5-10.1); CARBON DIOXIDE LEVEL 24 MMOL/L (20-31); CHLORIDE LEVEL 108 MMOL/L (98-107); CREATININE FOR GFR 0.67 MG/DL (0.55-1.30); GLOMERULAR FILTRATION RATE > 60.0 (>60); GLUCOSE, FASTING 94 MG/DL (60-100); POTASSIUM SERUM 3.8 MMOL/L (3.5-5.1); SODIUM LEVEL 143 MMOL/L (136-145)
[2022-06-15] MEDS ORDERED: POTASSIUM CHLORIDE 10MEQ SR TABLET PO ONE (07:35)
[2022-06-15] MEDS ORDERED: ACETAMINOPHEN 500 MG TAB PO ONE (08:00)
[2022-06-15] MEDS ORDERED: KETOROLAC 30 MG/ML 1ML VIAL IV ONE ×2 (08:00→10:00)
[2022-06-15] MEDS ORDERED: POTASSIUM CHLORIDE 10MEQ SR TABLET PO SCH (09:00)
[2022-06-15] MEDS: METOPROLOL SUCC (TopROL XL) 50MG **XL** TAB PO SCH (09:00)
[2022-06-15] MEDS: APIXABAN 5 MG TAB (ELIQUIS) PO SCH ×2 (09:12→21:06)
[2022-06-15] MEDS: FUROSEMIDE 10MG PER 1/2 TABLET PO SCH (09:12)
[2022-06-15] MEDS: AMIODARONE 200 MG TAB (PACERONE) PO SCH ×2 (09:12→21:06)
[2022-06-15] MEDS: POTASSIUM CHLORIDE 10MEQ SR TABLET PO SCH (09:13)
[2022-06-15] MEDS ORDERED: PANTOPRAZOLE 40MG VIAL IV ONE (09:30)
[2022-06-15] MEDS ORDERED: SUCRALFATE SUSP 1GM/10ML UD PO ONE (10:00)
[2022-06-15] MEDS: GI COCKTAIL 50ML BTL(HYOSCYAMINE/MAALOX/LIDOCAINE VISCOUS)(1:3:1) PO ONE ×2 (10:24→10:30)
[2022-06-15] MEDS ORDERED: ONDANSETRON 4MG 2ML VIAL IV ONE (19:00)
[2022-06-15] MEDS ORDERED: ONDANSETRON 4MG 2ML VIAL IV PRN (23:00)
[2022-06-16] VITALS: BP 100/62
[2022-06-16 04:00] VITALS: BP 98/68
[2022-06-16 07:55] VITALS: BP 108/60
[2022-06-16 09:00] VITALS: BP 98/6
[2022-06-16] MEDS: POTASSIUM CHLORIDE 10MEQ SR TABLET PO SCH ×2 (09:00→09:06)
[2022-06-16] MEDS: METOPROLOL SUCC (TopROL XL) 50MG **XL** TAB PO SCH ×2 (09:00→09:09)
[2022-06-16] MEDS: FUROSEMIDE 10MG PER 1/2 TABLET PO SCH ×2 (09:00→09:05)
[2022-06-16] MEDS: AMIODARONE 200 MG TAB (PACERONE) PO SCH (09:06)
[2022-06-16] MEDS: APIXABAN 5 MG TAB (ELIQUIS) PO SCH (09:06)
== END 2022-06-16 10:15 | disposition home or self-care (01) | DRG 201 ==
LOC: EDBD 22:33 → M ED 22:33 → M ED INP 06-15 01:17 → M PCU 06-15 02:23
PROVIDERS: ADMIT Family Medicine; ATTEND Family Medicine
DX: I47.20 Ventricular tachycardia, unspecified (principal); G71.00 Muscular dystrophy, unspecified; I42.0 Dilated cardiomyopathy; I50.20 Unspecified systolic (congestive) heart failure; I27.20 Pulmonary hypertension, unspecified; Z95.810 Presence of automatic (implantable) cardiac defibrillator; G47.33 Obstructive sleep apnea (adult) (pediatric); E03.9 Hypothyroidism, unspecified; Z86.711 Personal history of pulmonary embolism; Z79.01 Long term (current) use of anticoagulants; Z79.899 Other long term (current) drug therapy; Z88.8 Allergy status to other drugs, medicaments and biological substances; E66.9 Obesity, unspecified; Z68.38 Body mass index [BMI] 38.0-38.9, adult; I49.01 Ventricular fibrillation; Z88.6 Allergy status to analgesic agent

== ENCOUNTER → 2022-06-20 | Outpatient (REF) | payer OTHER ==
[~2022-06-20] MED LIST changes: +METO1TAB7 PO
== END ==
LOC: M LAB REF 16:30
PROVIDERS: ATTEND Family Medicine Addiction Medicine
DX: R10.9 Unspecified abdominal pain (principal)

== ENCOUNTER 2022-07-16 21:37 | Emergency (ER) | payer OTHER ==
[~2022-07-16] VITALS: Ht 175.3 cm; Wt 119.1 kg
[2022-07-16 21:37] VITALS: BP 108/61
[~2022-07-16 21:37] MED LIST changes: -POTA10CA32 PO; +POTA10CA33 PO
[2022-07-16] MEDS ORDERED: COLC0.6T47 PO (21:46)
[2022-07-16] MEDS ORDERED: DIGO0.127 PO (21:46)
[2022-07-16] MEDS ORDERED: hydrocortisone PO (21:46)
[2022-07-16] MEDS ORDERED: SYNT25TA PO (21:46)
== END 2022-07-17 01:44 | disposition left against medical advice (07) ==
LOC: M ED 21:37
DX: Z53.21 Procedure and treatment not carried out due to patient leaving prior to being seen by health care provider (principal)

== ENCOUNTER 2022-07-24 01:09 | Emergency (ER) | payer OTHER ==
[~2022-07-24] VITALS: Ht 175.3 cm; Wt 116.8 kg
[~2022-07-24 01:09] MED LIST changes: +COLC0.6T47 PO; +MAGN296S37 PO; -MAGN296S5 PO; +SYNT25TA PO; +hydrocortisone PO
[2022-07-24] MEDS ORDERED: OMEP-173 (01:20)
[2022-07-24 02:02] LABS: BASO % 0.5 % (0.0-1.0); EOS # 0.1 10^3/uL (0.0-0.5); EOS % 0.9 % (0.0-3.0); HEMATOCRIT 42.3 % (36.0-47.0); HEMOGLOBIN 13.5 g/dl (12.0-15.5); LYMPH # 1.9 10^3/uL (1.5-5.0); LYMPH % 34.2 % (24.0-44.0); MEAN CORPUSCULAR HEMOGLOBIN 32.4 pg (27.0-33.0); MEAN CORPUSCULAR HGB CONC 31.9 g/dl (32.0-36.5); MEAN CORPUSCULAR VOLUME 101.4 fl (80.0-96.0); MONO # 0.4 10^3/uL (0.0-0.8); NEUTROPHILS # 3.3 10^3/uL (1.5-8.5); NEUTROPHILS % 57.2 % (36.0-66.0); PLATELET COUNT, AUTOMATED 165 10^3/uL (150-450); RED BLOOD COUNT 4.17 10^6/uL (4.00-5.40); WHITE BLOOD COUNT 5.7 10^3/uL (4.0-10.0)
[2022-07-24 02:22] LABS: MAGNESIUM LEVEL 1.9 MG/DL (1.8-2.4)
[2022-07-24 02:23] LABS: BLOOD UREA NITROGEN 13 MG/DL (9-23); CALCIUM LEVEL 9.6 MG/DL (8.5-10.1); CARBON DIOXIDE LEVEL 27 MMOL/L (20-31); CHLORIDE LEVEL 106 MMOL/L (98-107); CK-MB VALUE MASS 1.3 NG/ML (<3.6); CREATININE FOR GFR 0.78 MG/DL (0.55-1.30); GLOMERULAR FILTRATION RATE > 60.0 (>60); GLUCOSE, FASTING 90 MG/DL (60-100); POTASSIUM SERUM 4.1 MMOL/L (3.5-5.1); SODIUM LEVEL 143 MMOL/L (136-145)
[2022-07-24 02:24] LABS: CPK CREATINE PHOSPHOKINASE 189 U/L (34-145); MB/CK RELATIVE INDEX 0.68 (< OR =4)
[2022-07-24 03:55] LABS: MB/CK RELATIVE INDEX 0.63 (< OR =4)
[2022-07-24 04:00] VITALS: BP 103/60
[2022-07-24] MEDS ORDERED: METOPROLOL SUCC *XL* 25MG TAB (TopROL *XL*) PO ONE (04:15)
== END 2022-07-24 04:49 | disposition home or self-care (01) ==
LOC: EDBD 01:09 → M ED 01:09
DX: R00.2 Palpitations (principal); Z88.8 Allergy status to other drugs, medicaments and biological substances; Z79.899 Other long term (current) drug therapy; Z79.1 Long term (current) use of non-steroidal anti-inflammatories (NSAID)

== ENCOUNTER 2022-08-05 03:31 | Emergency (ER) | payer OTHER ==
[~2022-08-05] VITALS: Ht 175.3 cm; Wt 114.5 kg
[~2022-08-05 03:31] MED LIST changes: +OMEP-173
[2022-08-05 04:27] LABS: BASO % 0.6 % (0.0-1.0); EOS # 0.1 10^3/uL (0.0-0.5); HEMOGLOBIN 13.7 g/dl (12.0-15.5); LYMPH % 40.4 % (24.0-44.0); MEAN CORPUSCULAR HEMOGLOBIN 31.9 pg (27.0-33.0); MEAN CORPUSCULAR HGB CONC 31.9 g/dl (32.0-36.5); MEAN CORPUSCULAR VOLUME 100.2 fl (80.0-96.0); MONO # 0.4 10^3/uL (0.0-0.8); NEUTROPHILS # 2.6 10^3/uL (1.5-8.5); NEUTROPHILS % 50.8 % (36.0-66.0); PLATELET COUNT, AUTOMATED 175 10^3/uL (150-450); RED BLOOD COUNT 4.29 10^6/uL (4.00-5.40)
[2022-08-05 04:44] LABS: LIPASE 34 U/L (12-53)
[2022-08-05 04:46] LABS: ALBUMIN 4.4 G/DL (3.2-5.2); ALKALINE PHOSPHATASE 97 U/L (46-116); ALT/SGPT 28 U/L (7.0-40); AST/SGOT 33 U/L (<34); BILIRUBIN,DIRECT 0.2 MG/DL (<0.4); BILIRUBIN,TOTAL 0.7 MG/DL (0.3-1.2); BLOOD UREA NITROGEN 14 MG/DL (9-23); CALCIUM LEVEL 9.7 MG/DL (8.5-10.1); CARBON DIOXIDE LEVEL 24 MMOL/L (20-31); CHLORIDE LEVEL 106 MMOL/L (98-107); CREATININE FOR GFR 0.75 MG/DL (0.55-1.30); GLOMERULAR FILTRATION RATE > 60.0 (>60); GLUCOSE, FASTING 81 MG/DL (60-100); HCG, SERUM QUANTITATIVE < 2.6 MIU/ML (<4.2); INR 0.95; POTASSIUM SERUM 3.7 MMOL/L (3.5-5.1); PROTHROMBIN TIME 12.9 SECONDS (12.5-14.5); SODIUM LEVEL 141 MMOL/L (136-145); TOTAL PROTEIN 8.2 G/DL (5.7-8.2)
[2022-08-05 04:53] LABS: CPK CREATINE PHOSPHOKINASE 271 U/L (34-145)
[2022-08-05 05:09] LABS: RSV AMPLIFICATION NEGATIVE (NEGATIVE)
[2022-08-05 07:16] LABS: D-DIMER QUANT 367.6 ng/ml (<500)
[2022-08-05 07:20] VITALS: BP 116/88
[2022-08-05 07:45] LABS: MAGNESIUM LEVEL 1.9 MG/DL (1.8-2.4)
[2022-08-05 07:47] LABS: DIGOXIN LEVEL < 0.1 NG/ML (0.8-2.0)
[2022-08-05 12:36] LABS: CK-MB VALUE MASS 1.6 NG/ML (<3.6); MB/CK RELATIVE INDEX 0.74 (< OR =4)
[2022-08-05 12:44] LABS: CK-MB VALUE MASS 2.5 NG/ML (<3.6); MB/CK RELATIVE INDEX 0.92 (< OR =4)
== END 2022-08-05 11:25 | disposition left against medical advice (07) ==
LOC: M ED 03:31 → EDBD 03:31 → M ED 11:25
DX: R07.9 Chest pain, unspecified (principal); Z53.29 Procedure and treatment not carried out because of patient's decision for other reasons; Z91.09 Other allergy status, other than to drugs and biological substances; Z79.1 Long term (current) use of non-steroidal anti-inflammatories (NSAID); Z79.899 Other long term (current) drug therapy

== ENCOUNTER 2022-08-08 19:27 | Emergency (ER) | payer OTHER ==
[~2022-08-08] VITALS: Ht 175.3 cm; Wt 114.5 kg
[~2022-08-08 19:27] MED LIST changes: -MAGN400C PO
[2022-08-08 19:37] VITALS: BP 104/64
[2022-08-08] MEDS ORDERED: MAGN400C PO (19:40)
[2022-08-08 20:48] LABS: BASO % 0.4 % (0.0-1.0); EOS % 0.5 % (0.0-3.0); HEMATOCRIT 39.8 % (36.0-47.0); LYMPH # 1.3 10^3/uL (1.5-5.0); LYMPH % 22.5 % (24.0-44.0); MEAN CORPUSCULAR HEMOGLOBIN 32.6 pg (27.0-33.0); MEAN CORPUSCULAR HGB CONC 32.7 g/dl (32.0-36.5); MEAN CORPUSCULAR VOLUME 99.7 fl (80.0-96.0); MONO # 0.4 10^3/uL (0.0-0.8); NEUTROPHILS # 3.9 10^3/uL (1.5-8.5); NEUTROPHILS % 69.4 % (36.0-66.0); PLATELET COUNT, AUTOMATED 192 10^3/uL (150-450); RED BLOOD COUNT 3.99 10^6/uL (4.00-5.40); WHITE BLOOD COUNT 5.6 10^3/uL (4.0-10.0)
[2022-08-08 21:00] LABS: INR 0.91; PROTHROMBIN TIME 12.4 SECONDS (12.5-14.5)
[2022-08-08 21:01] LABS: PARTIAL THROMBOPLASTIN TIME 27.8 SECONDS (24.8-34.2)
[2022-08-08 21:08] LABS: MAGNESIUM LEVEL 1.9 MG/DL (1.8-2.4)
[2022-08-08 21:10] LABS: BLOOD UREA NITROGEN 11 MG/DL (9-23); CALCIUM LEVEL 9.7 MG/DL (8.5-10.1); CARBON DIOXIDE LEVEL 25 MMOL/L (20-31); CHLORIDE LEVEL 109 MMOL/L (98-107); CREATININE FOR GFR 0.79 MG/DL (0.55-1.30); GLOMERULAR FILTRATION RATE > 60.0 (>60); GLUCOSE, FASTING 89 MG/DL (60-100); POTASSIUM SERUM 3.4 MMOL/L (3.5-5.1); SODIUM LEVEL 143 MMOL/L (136-145)
[2022-08-08 21:11] LABS: CPK CREATINE PHOSPHOKINASE 278 U/L (34-145); MB/CK RELATIVE INDEX 0.71 (< OR =4)
[2022-08-08 21:21] LABS: HCG, SERUM QUALITATIVE NEGATIVE (NEGATIVE)
== END 2022-08-09 00:08 | disposition left against medical advice (07) ==
LOC: M ED 19:27 → EDBD 19:27 → M ED 08-09 00:08
DX: Z53.21 Procedure and treatment not carried out due to patient leaving prior to being seen by health care provider (principal)

== ENCOUNTER → 2022-08-08 | Outpatient (CLI) | payer OTHER ==
[~2022-08-08] MED LIST changes: +MAGN400C PO
[2022-08-08 11:54] LABS: MAGNESIUM LEVEL 1.8 MG/DL (1.8-2.4)
[2022-08-08 11:56] LABS: BLOOD UREA NITROGEN 12 MG/DL (9-23); CALCIUM LEVEL 9.5 MG/DL (8.5-10.1); CARBON DIOXIDE LEVEL 27 MMOL/L (20-31); CHLORIDE LEVEL 109 MMOL/L (98-107); CREATININE FOR GFR 0.82 MG/DL (0.55-1.30); DIGOXIN LEVEL < 0.1 NG/ML (0.8-2.0); GLOMERULAR FILTRATION RATE > 60.0 (>60); GLUCOSE, FASTING 86 MG/DL (60-100); POTASSIUM SERUM 3.6 MMOL/L (3.5-5.1); SODIUM LEVEL 145 MMOL/L (136-145)
== END ==
LOC: M LAB 10:16
PROVIDERS: ATTEND Internal Medicine Cardiovascular Disease
DX: I47.20 Ventricular tachycardia, unspecified (principal); R00.2 Palpitations; I42.8 Other cardiomyopathies

== ENCOUNTER 2022-08-18 13:09 | Inpatient (IN) | payer OTHER ==
[~2022-08-18] VITALS: Ht 170.2 cm; Wt 115.3 kg
[~2022-08-18 13:09] MED LIST changes: +MAGN400C PO
[2022-08-18 14:47] LABS: RSV AMPLIFICATION NEGATIVE (NEGATIVE)
[2022-08-18 15:26] LABS: BASO % 0.7 % (0.0-1.0); EOS # 0.1 10^3/uL (0.0-0.5); EOS % 0.8 % (0.0-3.0); HEMATOCRIT 39.2 % (36.0-47.0); HEMOGLOBIN 12.8 g/dl (12.0-15.5); LYMPH # 1.5 10^3/uL (1.5-5.0); MEAN CORPUSCULAR HEMOGLOBIN 32.4 pg (27.0-33.0); MEAN CORPUSCULAR HGB CONC 32.7 g/dl (32.0-36.5); MEAN CORPUSCULAR VOLUME 99.2 fl (80.0-96.0); MONO # 0.4 10^3/uL (0.0-0.8); MONO % 6.1 % (2.0-8.0); NEUTROPHILS % 67.1 % (36.0-66.0); PLATELET COUNT, AUTOMATED 184 10^3/uL (150-450); RED BLOOD COUNT 3.95 10^6/uL (4.00-5.40); WHITE BLOOD COUNT 5.9 10^3/uL (4.0-10.0)
[2022-08-18 15:43] LABS: PARTIAL THROMBOPLASTIN TIME 26.2 SECONDS (24.8-34.2)
[2022-08-18 15:45] LABS: D-DIMER QUANT 421.55 ng/ml (<500)
[2022-08-18 16:20] LABS: ALBUMIN 3.9 G/DL (3.2-5.2); ALKALINE PHOSPHATASE 77 U/L (46-116); ALT/SGPT 38 U/L (7.0-40); AST/SGOT 72 U/L (<34); BILIRUBIN,DIRECT < 0.1 MG/DL (<0.4); BILIRUBIN,TOTAL 0.4 MG/DL (0.3-1.2); BLOOD UREA NITROGEN 9 MG/DL (9-23); CALCIUM LEVEL 9.3 MG/DL (8.5-10.1); CARBON DIOXIDE LEVEL 22 MMOL/L (20-31); CHLORIDE LEVEL 108 MMOL/L (98-107); CK-MB VALUE MASS 2.8 NG/ML (<3.6); CPK CREATINE PHOSPHOKINASE 210 U/L (34-145); CREATININE FOR GFR 0.67 MG/DL (0.55-1.30); GLOMERULAR FILTRATION RATE > 60.0 (>60); GLUCOSE, FASTING 95 MG/DL (60-100); MAGNESIUM LEVEL 1.9 MG/DL (1.8-2.4); MB/CK RELATIVE INDEX 1.33 (< OR =4); POTASSIUM SERUM 5.8 MMOL/L (3.5-5.1); SODIUM LEVEL 139 MMOL/L (136-145); TOTAL PROTEIN 7.6 G/DL (5.7-8.2)
[2022-08-18] MEDS ORDERED: DEXTROSE 50% 50ML SYRINGE IV STA (16:48)
[2022-08-18] MEDS ORDERED: CALCIUM GLUCONATE 1,000 MG in D5W MINI-BAG PLUS 100 ML IV ONE (16:50)
[2022-08-18] MEDS ORDERED: HumuLIN R (REGULAR) INSULIN (NovoLIN R) **100U/ML** PER UNIT IV ONE (16:50)
[2022-08-18 17:27] LABS: CK-MB VALUE MASS 1.4 NG/ML (<3.6)
[2022-08-18 17:40] LABS: MB/CK RELATIVE INDEX 0.71 (< OR =4)
[2022-08-18] MEDS ORDERED: FUROSEMIDE 40MG/4ML VIAL IV ONE (20:05)
[2022-08-18] MEDS ORDERED: METO1TAB32 PO (20:16)
[2022-08-18] MEDS ORDERED: HYDR-4468 PO ×2 (20:16)
[2022-08-18] MEDS ORDERED: FURO20TA2 PO (20:21)
[2022-08-18] MEDS ORDERED: POTA-136 PO (20:21)
[2022-08-18] MEDS ORDERED: ALEV1TAB PO (20:21)
[2022-08-18] MEDS ORDERED: HOME MED LIST COMPLETE! XX SCH (20:25)
[2022-08-18 21:13] VITALS: BP 111/58
[2022-08-18 21:30] VITALS: PULSE 57
[2022-08-18] MEDS: HYDROCORTISONE 10 MG TAB PO SCH (22:19)
[2022-08-18] MEDS: AMIODARONE 200 MG TAB (PACERONE) PO SCH (22:19)
[2022-08-19] VITALS (16 sets, daily range): BP systolic 96–122; BP diastolic 56–90; PULSE 74–75
[2022-08-19] MEDS ORDERED: ACETAMINOPHEN TAB 650MG DOSE (2X325MG) PO PRN (00:35)
[2022-08-19 00:41] LABS: POTASSIUM SERUM 3.9 MMOL/L (3.5-5.1)
[2022-08-19] MEDS ORDERED: MAG SULF 1GM/100ML (MAG RUN) 1 GM in IV 1 EA IV ONE (01:30)
[2022-08-19] MEDS ORDERED: POTASSIUM CHLORIDE 10MEQ SR TABLET PO ONE (02:25)
[2022-08-19] MEDS ORDERED: KCL 10MEQ/100ML SWI (KRUN) 10 MEQ in IV 1 EA IV SCH (02:30)
[2022-08-19 06:14] LABS: BASO % 0.5 % (0.0-1.0); EOS % 0.6 % (0.0-3.0); HEMATOCRIT 41.8 % (36.0-47.0); HEMOGLOBIN 13.4 g/dl (12.0-15.5); LYMPH # 1.9 10^3/uL (1.5-5.0); MEAN CORPUSCULAR HEMOGLOBIN 31.6 pg (27.0-33.0); MEAN CORPUSCULAR HGB CONC 32.1 g/dl (32.0-36.5); MEAN CORPUSCULAR VOLUME 98.6 fl (80.0-96.0); MONO # 0.4 10^3/uL (0.0-0.8); MONO % 6.6 % (2.0-8.0); PLATELET COUNT, AUTOMATED 193 10^3/uL (150-450); RED BLOOD COUNT 4.24 10^6/uL (4.00-5.40); WHITE BLOOD COUNT 6.5 10^3/uL (4.0-10.0)
[2022-08-19] MEDS: LEVOTHYROXINE 25MCG TABLET (0.025MG) PO SCH (06:35)
[2022-08-19 06:42] LABS: BLOOD UREA NITROGEN 14 MG/DL (9-23); CALCIUM LEVEL 9.4 MG/DL (8.5-10.1); CARBON DIOXIDE LEVEL 25 MMOL/L (20-31); CHLORIDE LEVEL 106 MMOL/L (98-107); CREATININE FOR GFR 0.74 MG/DL (0.55-1.30); GLOMERULAR FILTRATION RATE > 60.0 (>60); GLUCOSE, FASTING 90 MG/DL (60-100); MAGNESIUM LEVEL 2.1 MG/DL (1.8-2.4); POTASSIUM SERUM 3.8 MMOL/L (3.5-5.1); SODIUM LEVEL 141 MMOL/L (136-145)
[2022-08-19] MEDS: MAGNESIUM OXIDE 400MG TAB (MAG-OX) PO SCH (08:37)
[2022-08-19] MEDS: AMIODARONE 200 MG TAB (PACERONE) PO SCH ×2 (08:38→20:38)
[2022-08-19] MEDS: HYDROCORTISONE 10 MG TAB PO SCH ×2 (08:38→20:38)
[2022-08-19] MEDS ORDERED: DIGOXIN 0.125 MG TAB PO SCH (09:00)
[2022-08-19] MEDS: METOPROLOL SUCC *XL* 25MG TAB (TopROL *XL*) PO SCH ×2 (10:02→11:16)
[2022-08-19] MEDS: HEPARIN SOD (PORCINE) 5000UNITS/ML 1ML VIAL/SYRINGE SQ SCH ×2 (13:31→20:39)
[2022-08-19 20:20] LABS: BLOOD UREA NITROGEN 18 MG/DL (9-23); CALCIUM LEVEL 9.2 MG/DL (8.5-10.1); CARBON DIOXIDE LEVEL 22 MMOL/L (20-31); CHLORIDE LEVEL 109 MMOL/L (98-107); CREATININE FOR GFR 0.68 MG/DL (0.55-1.30); GLOMERULAR FILTRATION RATE > 60.0 (>60); GLUCOSE, FASTING 103 MG/DL (60-100); POTASSIUM SERUM 4.2 MMOL/L (3.5-5.1); SODIUM LEVEL 141 MMOL/L (136-145)
[2022-08-20] VITALS (10 sets, daily range): BP systolic 98–118; BP diastolic 56–80; PULSE 77–118
[2022-08-20] MEDS ORDERED: IBUPROFEN 400MG TAB PO ONE (05:05)
[2022-08-20 05:09] LABS: BASO % 0.5 % (0.0-1.0); EOS # 0.1 10^3/uL (0.0-0.5); EOS % 1.1 % (0.0-3.0); HEMATOCRIT 40.4 % (36.0-47.0); MEAN CORPUSCULAR HEMOGLOBIN 31.7 pg (27.0-33.0); MEAN CORPUSCULAR HGB CONC 32.2 g/dl (32.0-36.5); MEAN CORPUSCULAR VOLUME 98.5 fl (80.0-96.0); MONO # 0.4 10^3/uL (0.0-0.8); MONO % 5.7 % (2.0-8.0); NEUTROPHILS # 3.6 10^3/uL (1.5-8.5); NEUTROPHILS % 59.5 % (36.0-66.0); PLATELET COUNT, AUTOMATED 196 10^3/uL (150-450); WHITE BLOOD COUNT 6.1 10^3/uL (4.0-10.0)
[2022-08-20] MEDS: HEPARIN SOD (PORCINE) 5000UNITS/ML 1ML VIAL/SYRINGE SQ SCH ×3 (05:35→21:50)
[2022-08-20] MEDS: LEVOTHYROXINE 25MCG TABLET (0.025MG) PO SCH (05:35)
[2022-08-20 05:39] LABS: DIGOXIN LEVEL 0.3 NG/ML (0.8-2.0)
[2022-08-20 05:47] LABS: ALBUMIN 3.8 G/DL (3.2-5.2); ALKALINE PHOSPHATASE 86 U/L (46-116); ALT/SGPT 36 U/L (7.0-40); AST/SGOT 34 U/L (<34); BILIRUBIN,TOTAL 0.5 MG/DL (0.3-1.2); BLOOD UREA NITROGEN 19 MG/DL (9-23); CALCIUM LEVEL 9.2 MG/DL (8.5-10.1); CARBON DIOXIDE LEVEL 23 MMOL/L (20-31); CHLORIDE LEVEL 108 MMOL/L (98-107); CREATININE FOR GFR 0.71 MG/DL (0.55-1.30); GLOMERULAR FILTRATION RATE > 60.0 (>60); GLUCOSE, FASTING 91 MG/DL (60-100); MAGNESIUM LEVEL 1.8 MG/DL (1.8-2.4); POTASSIUM SERUM 3.9 MMOL/L (3.5-5.1); SODIUM LEVEL 141 MMOL/L (136-145)
[2022-08-20] MEDS: METOPROLOL SUCC *XL* 25MG TAB (TopROL *XL*) PO SCH (08:57)
[2022-08-20] MEDS: AMIODARONE 200 MG TAB (PACERONE) PO SCH ×2 (08:58→20:21)
[2022-08-20] MEDS: MAGNESIUM OXIDE 400MG TAB (MAG-OX) PO SCH (08:58)
[2022-08-20] MEDS: HYDROCORTISONE 10 MG TAB PO SCH ×2 (08:58→20:21)
[2022-08-20] MEDS: MEXILETINE 150 MG CAP PO SCH (20:21)
[2022-08-21] VITALS (7 sets, daily range): BP systolic 98–109; BP diastolic 58–78
[2022-08-21] MEDS ORDERED: LEVOTHYROXINE 25MCG TABLET (0.025MG) As Ordered ONE (05:25)
[2022-08-21] MEDS ORDERED: HEPARIN SOD (PORCINE) 5000UNITS/ML 1ML VIAL/SYRINGE As Ordered ONE (05:25)
[2022-08-21] MEDS: HEPARIN SOD (PORCINE) 5000UNITS/ML 1ML VIAL/SYRINGE SQ SCH ×3 (05:28→21:16)
[2022-08-21] MEDS: LEVOTHYROXINE 25MCG TABLET (0.025MG) PO SCH (05:29)
[2022-08-21 05:56] LABS: BASO % 0.5 % (0.0-1.0); EOS % 0.6 % (0.0-3.0); HEMATOCRIT 41.2 % (36.0-47.0); HEMOGLOBIN 13.2 g/dl (12.0-15.5); LYMPH # 1.7 10^3/uL (1.5-5.0); LYMPH % 28.2 % (24.0-44.0); MEAN CORPUSCULAR VOLUME 99.8 fl (80.0-96.0); MONO # 0.4 10^3/uL (0.0-0.8); MONO % 6.5 % (2.0-8.0); NEUTROPHILS # 3.9 10^3/uL (1.5-8.5); PLATELET COUNT, AUTOMATED 190 10^3/uL (150-450); RED BLOOD COUNT 4.13 10^6/uL (4.00-5.40); WHITE BLOOD COUNT 6.2 10^3/uL (4.0-10.0)
[2022-08-21 06:02] LABS: ALBUMIN 3.8 G/DL (3.2-5.2); ALKALINE PHOSPHATASE 87 U/L (46-116); ALT/SGPT 34 U/L (7.0-40); AST/SGOT 29 U/L (<34); BILIRUBIN,TOTAL 0.5 MG/DL (0.3-1.2); BLOOD UREA NITROGEN 17 MG/DL (9-23); CARBON DIOXIDE LEVEL 24 MMOL/L (20-31); CHLORIDE LEVEL 107 MMOL/L (98-107); CREATININE FOR GFR 0.76 MG/DL (0.55-1.30); GLOMERULAR FILTRATION RATE > 60.0 (>60); GLUCOSE, FASTING 82 MG/DL (60-100); MAGNESIUM LEVEL 1.9 MG/DL (1.8-2.4); SODIUM LEVEL 141 MMOL/L (136-145)
[2022-08-21] MEDS: MEXILETINE 150 MG CAP PO SCH ×2 (08:39→21:15)
[2022-08-21] MEDS: MAGNESIUM OXIDE 400MG TAB (MAG-OX) PO SCH (08:40)
[2022-08-21] MEDS: AMIODARONE 200 MG TAB (PACERONE) PO SCH ×2 (08:40→21:15)
[2022-08-21] MEDS: HYDROCORTISONE 10 MG TAB PO SCH ×2 (08:40→21:15)
[2022-08-21] MEDS: METOPROLOL SUCC *XL* 25MG TAB (TopROL *XL*) PO SCH (08:40)
[2022-08-22] VITALS (8 sets, daily range): BP systolic 81–108; BP diastolic 45–62
[2022-08-22] MEDS ORDERED: SODIUM CHLORIDE 0.9% 1000ML IV ONE (01:25)
[2022-08-22 05:40] LABS: BASO % 0.3 % (0.0-1.0); EOS % 0.7 % (0.0-3.0); HEMATOCRIT 38.1 % (36.0-47.0); HEMOGLOBIN 12.3 g/dl (12.0-15.5); LYMPH # 1.8 10^3/uL (1.5-5.0); LYMPH % 31.1 % (24.0-44.0); MEAN CORPUSCULAR HEMOGLOBIN 32.3 pg (27.0-33.0); MEAN CORPUSCULAR HGB CONC 32.3 g/dl (32.0-36.5); MONO # 0.4 10^3/uL (0.0-0.8); MONO % 6.5 % (2.0-8.0); NEUTROPHILS # 3.6 10^3/uL (1.5-8.5); NEUTROPHILS % 61.2 % (36.0-66.0); PLATELET COUNT, AUTOMATED 155 10^3/uL (150-450); RED BLOOD COUNT 3.81 10^6/uL (4.00-5.40); WHITE BLOOD COUNT 5.8 10^3/uL (4.0-10.0)
[2022-08-22] MEDS: LEVOTHYROXINE 25MCG TABLET (0.025MG) PO SCH (06:21)
[2022-08-22] MEDS: HEPARIN SOD (PORCINE) 5000UNITS/ML 1ML VIAL/SYRINGE SQ SCH ×3 (06:21→22:09)
[2022-08-22 06:24] LABS: ALBUMIN 3.3 G/DL (3.2-5.2); ALKALINE PHOSPHATASE 78 U/L (46-116); ALT/SGPT 27 U/L (7.0-40); AST/SGOT 26 U/L (<34); BILIRUBIN,TOTAL 0.5 MG/DL (0.3-1.2); BLOOD UREA NITROGEN 15 MG/DL (9-23); CALCIUM LEVEL 8.8 MG/DL (8.5-10.1); CARBON DIOXIDE LEVEL 24 MMOL/L (20-31); CHLORIDE LEVEL 108 MMOL/L (98-107); CREATININE FOR GFR 0.74 MG/DL (0.55-1.30); GLOMERULAR FILTRATION RATE > 60.0 (>60); GLUCOSE, FASTING 81 MG/DL (60-100); MAGNESIUM LEVEL 1.7 MG/DL (1.8-2.4); SODIUM LEVEL 141 MMOL/L (136-145); TOTAL PROTEIN 6.6 G/DL (5.7-8.2)
[2022-08-22] MEDS ORDERED: MAGNESIUM OXIDE 400MG TAB (MAG-OX) PO ONE ×2 (07:10→07:30)
[2022-08-22] MEDS: HYDROCORTISONE 10 MG TAB PO SCH ×2 (09:57→22:09)
[2022-08-22] MEDS: MEXILETINE 150 MG CAP PO SCH ×2 (09:58→22:09)
[2022-08-22] MEDS: MAGNESIUM OXIDE 400MG TAB (MAG-OX) PO SCH (09:58)
[2022-08-22] MEDS: AMIODARONE 200 MG TAB (PACERONE) PO SCH ×2 (10:05→22:09)
[2022-08-22] MEDS: METOPROLOL SUCC *XL* 25MG TAB (TopROL *XL*) PO SCH (10:05)
[2022-08-22] MEDS ORDERED: LIDOCAINE 1% MDV 20ML VIAL As Ordered ONE (12:38)
[2022-08-22] MEDS ORDERED: SODIUM CHLORIDE 0.9% INJ 10 ML SYR IV PRN (17:15)
[2022-08-22] MEDS: SODIUM CHLORIDE 0.9% INJ 10 ML SYR IV SCH (18:43)
[2022-08-23] VITALS (8 sets, daily range): BP systolic 91–105; BP diastolic 40–62; PULSE 75
[2022-08-23] MEDS ORDERED: NAPROXEN 250 MG TAB PO ONE ×2 (02:55→03:00)
[2022-08-23] MEDS ORDERED: diphenhydrAMINE 25MG CAP PO ONE (03:00)
[2022-08-23] MEDS: HEPARIN SOD (PORCINE) 5000UNITS/ML 1ML VIAL/SYRINGE SQ SCH ×3 (05:11→21:41)
[2022-08-23] MEDS: LEVOTHYROXINE 25MCG TABLET (0.025MG) PO SCH (05:11)
[2022-08-23 05:36] LABS: BASO % 0.3 % (0.0-1.0); EOS % 0.6 % (0.0-3.0); HEMATOCRIT 38.9 % (36.0-47.0); HEMOGLOBIN 12.4 g/dl (12.0-15.5); LYMPH # 1.3 10^3/uL (1.5-5.0); LYMPH % 20.6 % (24.0-44.0); MEAN CORPUSCULAR HGB CONC 31.9 g/dl (32.0-36.5); MEAN CORPUSCULAR VOLUME 100.3 fl (80.0-96.0); MONO # 0.4 10^3/uL (0.0-0.8); MONO % 6.5 % (2.0-8.0); NEUTROPHILS # 4.6 10^3/uL (1.5-8.5); NEUTROPHILS % 71.7 % (36.0-66.0); PLATELET COUNT, AUTOMATED 156 10^3/uL (150-450); RED BLOOD COUNT 3.88 10^6/uL (4.00-5.40); WHITE BLOOD COUNT 6.5 10^3/uL (4.0-10.0)
[2022-08-23 05:57] LABS: ALBUMIN 3.5 G/DL (3.2-5.2); ALKALINE PHOSPHATASE 84 U/L (46-116); ALT/SGPT 28 U/L (7.0-40); AST/SGOT 35 U/L (<34); BILIRUBIN,TOTAL 0.3 MG/DL (0.3-1.2); BLOOD UREA NITROGEN 15 MG/DL (9-23); CALCIUM LEVEL 8.9 MG/DL (8.5-10.1); CARBON DIOXIDE LEVEL 25 MMOL/L (20-31); CHLORIDE LEVEL 109 MMOL/L (98-107); CREATININE FOR GFR 0.76 MG/DL (0.55-1.30); GLOMERULAR FILTRATION RATE > 60.0 (>60); GLUCOSE, FASTING 88 MG/DL (60-100); MAGNESIUM LEVEL 1.8 MG/DL (1.8-2.4); POTASSIUM SERUM 4.2 MMOL/L (3.5-5.1); SODIUM LEVEL 142 MMOL/L (136-145); TOTAL PROTEIN 6.7 G/DL (5.7-8.2)
[2022-08-23] MEDS: HYDROCORTISONE 10 MG TAB PO SCH ×2 (09:12→21:42)
[2022-08-23] MEDS: AMIODARONE 200 MG TAB (PACERONE) PO SCH ×2 (09:12→21:42)
[2022-08-23] MEDS: MAGNESIUM OXIDE 400MG TAB (MAG-OX) PO SCH (09:12)
[2022-08-23] MEDS: MEXILETINE 150 MG CAP PO SCH ×2 (09:12→21:41)
[2022-08-23] MEDS: METOPROLOL SUCC *XL* 25MG TAB (TopROL *XL*) PO SCH (09:15)
[2022-08-23] MEDS: SODIUM CHLORIDE 0.9% INJ 10 ML SYR IV SCH (18:27)
[2022-08-24 04:00] VITALS: BP 92/54
[2022-08-24 04:30] VITALS: BP 99/55; PULSE 65
[2022-08-24 05:17] LABS: BASO % 0.3 % (0.0-1.0); EOS % 0.4 % (0.0-3.0); HEMATOCRIT 37.4 % (36.0-47.0); LYMPH # 2.1 10^3/uL (1.5-5.0); LYMPH % 28.8 % (24.0-44.0); MEAN CORPUSCULAR HEMOGLOBIN 31.8 pg (27.0-33.0); MEAN CORPUSCULAR HGB CONC 32.1 g/dl (32.0-36.5); MEAN CORPUSCULAR VOLUME 99.2 fl (80.0-96.0); MONO # 0.4 10^3/uL (0.0-0.8); MONO % 5.3 % (2.0-8.0); NEUTROPHILS # 4.7 10^3/uL (1.5-8.5); NEUTROPHILS % 64.8 % (36.0-66.0); PLATELET COUNT, AUTOMATED 145 10^3/uL (150-450); RED BLOOD COUNT 3.77 10^6/uL (4.00-5.40); WHITE BLOOD COUNT 7.3 10^3/uL (4.0-10.0)
[2022-08-24] MEDS: LEVOTHYROXINE 25MCG TABLET (0.025MG) PO SCH (05:27)
[2022-08-24] MEDS: HEPARIN SOD (PORCINE) 5000UNITS/ML 1ML VIAL/SYRINGE SQ SCH (05:27)
[2022-08-24 05:55] LABS: ALBUMIN 3.4 G/DL (3.2-5.2); ALKALINE PHOSPHATASE 84 U/L (46-116); ALT/SGPT 28 U/L (7.0-40); AST/SGOT 33 U/L (<34); BILIRUBIN,TOTAL 0.6 MG/DL (0.3-1.2); BLOOD UREA NITROGEN 16 MG/DL (9-23); CALCIUM LEVEL 8.7 MG/DL (8.5-10.1); CARBON DIOXIDE LEVEL 24 MMOL/L (20-31); CHLORIDE LEVEL 109 MMOL/L (98-107); CREATININE FOR GFR 0.66 MG/DL (0.55-1.30); GLOMERULAR FILTRATION RATE > 60.0 (>60); GLUCOSE, FASTING 81 MG/DL (60-100); MAGNESIUM LEVEL 1.8 MG/DL (1.8-2.4); POTASSIUM SERUM 4.1 MMOL/L (3.5-5.1); SODIUM LEVEL 141 MMOL/L (136-145); TOTAL PROTEIN 6.7 G/DL (5.7-8.2)
[2022-08-24 08:10] VITALS: BP 98/53
[2022-08-24] MEDS: MEXILETINE 150 MG CAP PO SCH (09:19)
[2022-08-24] MEDS: AMIODARONE 200 MG TAB (PACERONE) PO SCH (09:19)
[2022-08-24 09:21] VITALS: BP 108/64
[2022-08-24] MEDS: METOPROLOL SUCC *XL* 25MG TAB (TopROL *XL*) PO SCH (09:21)
[2022-08-24] MEDS: HYDROCORTISONE 10 MG TAB PO SCH (09:22)
[2022-08-24] MEDS: MAGNESIUM OXIDE 400MG TAB (MAG-OX) PO SCH (09:23)
[2022-08-24] MEDS ORDERED: PROCHLORPERAZINE 5MG TAB PO PRN (10:00)
== END 2022-08-24 11:24 | disposition short-term general hospital (02) | DRG 201 ==
LOC: M ED 13:09 → EDBD 13:09 → M ED INP 17:38 → M PCU 21:46
PROVIDERS: ADMIT Internal Medicine Nephrology; ATTEND Family Medicine
PROC: 05HB33Z Insertion of Infusion Device into Right Basilic Vein, Percutaneous Approach (ICD-10-PCS; principal; 2022-08-22 13:00)
DX: I47.29 Other ventricular tachycardia (principal); I42.8 Other cardiomyopathies; I50.22 Chronic systolic (congestive) heart failure; G71.11 Myotonic muscular dystrophy; E27.40 Unspecified adrenocortical insufficiency; I27.20 Pulmonary hypertension, unspecified; E66.01 Morbid (severe) obesity due to excess calories; E87.5 Hyperkalemia; E03.9 Hypothyroidism, unspecified; E06.3 Autoimmune thyroiditis; I49.3 Ventricular premature depolarization; R07.89 Other chest pain; G47.33 Obstructive sleep apnea (adult) (pediatric); Z68.39 Body mass index [BMI] 39.0-39.9, adult; Z86.711 Personal history of pulmonary embolism; Z86.718 Personal history of other venous thrombosis and embolism; Z85.09 Personal history of malignant neoplasm of other digestive organs; Z90.49 Acquired absence of other specified parts of digestive tract; Z90.710 Acquired absence of both cervix and uterus; Z79.890 Hormone replacement therapy; Z79.899 Other long term (current) drug therapy; Z88.6 Allergy status to analgesic agent; Z88.5 Allergy status to narcotic agent; Z88.8 Allergy status to other drugs, medicaments and biological substances; I47.1 Supraventricular tachycardia

== ENCOUNTER 2022-09-11 20:25 | Emergency (ER) | payer OTHER ==
[~2022-09-11] VITALS: Ht 170.2 cm; Wt 82.0 kg
[~2022-09-11 20:25] MED LIST changes: +HYDR-4468 PO; +POTA-136 PO
[2022-09-11 21:08] LABS: BASO % 0.4 % (0.0-1.0); EOS # 0.1 10^3/uL (0.0-0.5); EOS % 1.5 % (0.0-3.0); LYMPH # 1.7 10^3/uL (1.5-5.0); LYMPH % 31.4 % (24.0-44.0); MEAN CORPUSCULAR HEMOGLOBIN 32.1 pg (27.0-33.0); MEAN CORPUSCULAR HGB CONC 31.6 g/dl (32.0-36.5); MEAN CORPUSCULAR VOLUME 101.6 fl (80.0-96.0); MONO # 0.3 10^3/uL (0.0-0.8); NEUTROPHILS # 3.3 10^3/uL (1.5-8.5); NEUTROPHILS % 61.3 % (36.0-66.0); PLATELET COUNT, AUTOMATED 214 10^3/uL (150-450); RED BLOOD COUNT 3.74 10^6/uL (4.00-5.40); WHITE BLOOD COUNT 5.4 10^3/uL (4.0-10.0)
[2022-09-11 22:00] LABS: BLOOD UREA NITROGEN 18 MG/DL (9-23); CALCIUM LEVEL 8.7 MG/DL (8.5-10.1); CARBON DIOXIDE LEVEL 27 MMOL/L (20-31); CHLORIDE LEVEL 109 MMOL/L (98-107); CREATININE FOR GFR 0.73 MG/DL (0.55-1.30); GLOMERULAR FILTRATION RATE > 60.0 (>60); GLUCOSE, FASTING 94 MG/DL (60-100); POTASSIUM SERUM 3.5 MMOL/L (3.5-5.1); SODIUM LEVEL 143 MMOL/L (136-145)
[2022-09-11 22:08] LABS: MAGNESIUM LEVEL 1.8 MG/DL (1.8-2.4)
[2022-09-11 22:40] VITALS: BP 126/58
== END 2022-09-11 22:51 | disposition home or self-care (01) ==
LOC: M ED 20:25
DX: R07.89 Other chest pain (principal); Z87.442 Personal history of urinary calculi; K21.9 Gastro-esophageal reflux disease without esophagitis; G47.33 Obstructive sleep apnea (adult) (pediatric); Z79.899 Other long term (current) drug therapy; Z79.890 Hormone replacement therapy; Z88.8 Allergy status to other drugs, medicaments and biological substances; Z88.5 Allergy status to narcotic agent

== ENCOUNTER 2022-09-20 01:43 | Emergency (ER) | payer OTHER ==
[~2022-09-20] VITALS: Ht 175.3 cm; Wt 122.6 kg
[2022-09-20 04:07] VITALS: BP 126/67
== END 2022-09-20 05:46 | disposition left against medical advice (07) ==
LOC: M ED 01:43 → EDBD 01:43 → M ED 05:46
DX: Z53.21 Procedure and treatment not carried out due to patient leaving prior to being seen by health care provider (principal)

== ENCOUNTER 2022-10-18 09:28 | Emergency (ER) | payer OTHER ==
[~2022-10-18] VITALS: Ht 175.3 cm; Wt 111.4 kg
[2022-10-18 10:53] LABS: BASO % 0.6 % (0.0-1.0); EOS # 0.1 10^3/uL (0.0-0.5); EOS % 1.2 % (0.0-3.0); HEMATOCRIT 36.3 % (36.0-47.0); HEMOGLOBIN 11.3 g/dl (12.0-15.5); LYMPH # 1.3 10^3/uL (1.5-5.0); MEAN CORPUSCULAR HEMOGLOBIN 31.1 pg (27.0-33.0); MEAN CORPUSCULAR HGB CONC 31.1 g/dl (32.0-36.5); MONO # 0.4 10^3/uL (0.0-0.8); MONO % 7.7 % (2.0-8.0); NEUTROPHILS # 3.3 10^3/uL (1.5-8.5); NEUTROPHILS % 64.1 % (36.0-66.0); PLATELET COUNT, AUTOMATED 175 10^3/uL (150-450); RED BLOOD COUNT 3.63 10^6/uL (4.00-5.40); WHITE BLOOD COUNT 5.1 10^3/uL (4.0-10.0)
[2022-10-18] MEDS ORDERED: DICYCLOMINE 10 MG CAP PO ONE (11:30)
[2022-10-18] MEDS ORDERED: BISACODYL 5MG TAB PO ONE (11:30)
[2022-10-18 11:58] VITALS: BP 102/72
[2022-10-18] MEDS ORDERED: COLA100C5 PO (12:03)
== END 2022-10-18 12:19 | disposition home or self-care (01) ==
LOC: M ED 09:28 → EDBD 09:28 → M ED 12:19
DX: R10.9 Unspecified abdominal pain (principal); I51.7 Cardiomegaly; Z88.8 Allergy status to other drugs, medicaments and biological substances; Z79.899 Other long term (current) drug therapy

== ENCOUNTER 2022-11-14 02:40 | Emergency (ER) | payer OTHER ==
[~2022-11-14] VITALS: Ht 175.3 cm; Wt 107.7 kg
[~2022-11-14 02:40] MED LIST changes: +COLA100C5 PO
[2022-11-14 03:44] LABS: BASO % 0.7 % (0.0-1.0); EOS # 0.1 10^3/uL (0.0-0.5); EOS % 1.4 % (0.0-3.0); HEMATOCRIT 34.7 % (36.0-47.0); HEMOGLOBIN 10.8 g/dl (12.0-15.5); LYMPH # 1.7 10^3/uL (1.5-5.0); LYMPH % 30.2 % (24.0-44.0); MEAN CORPUSCULAR HEMOGLOBIN 30.2 pg (27.0-33.0); MEAN CORPUSCULAR HGB CONC 31.1 g/dl (32.0-36.5); MEAN CORPUSCULAR VOLUME 96.9 fl (80.0-96.0); MONO # 0.3 10^3/uL (0.0-0.8); MONO % 5.8 % (2.0-8.0); NEUTROPHILS # 3.5 10^3/uL (1.5-8.5); NEUTROPHILS % 61.7 % (36.0-66.0); PLATELET COUNT, AUTOMATED 191 10^3/uL (150-450); RED BLOOD COUNT 3.58 10^6/uL (4.00-5.40); WHITE BLOOD COUNT 5.7 10^3/uL (4.0-10.0)
[2022-11-14 04:07] LABS: BLOOD UREA NITROGEN 20 MG/DL (9-23); CALCIUM LEVEL 8.5 MG/DL (8.5-10.1); CARBON DIOXIDE LEVEL 24 MMOL/L (20-31); CHLORIDE LEVEL 112 MMOL/L (98-107); CREATININE FOR GFR 0.83 MG/DL (0.55-1.30); GLOMERULAR FILTRATION RATE > 60.0 (>60); GLUCOSE, FASTING 79 MG/DL (60-100); POTASSIUM SERUM 4.1 MMOL/L (3.5-5.1); SODIUM LEVEL 142 MMOL/L (136-145)
[2022-11-14 07:15] VITALS: BP 90/52
== END 2022-11-14 07:34 | disposition home or self-care (01) ==
LOC: M ED 02:40 → EDBD 02:40 → M ED 07:34
DX: R00.2 Palpitations (principal); I42.9 Cardiomyopathy, unspecified; Z88.6 Allergy status to analgesic agent; Z88.8 Allergy status to other drugs, medicaments and biological substances; Z79.899 Other long term (current) drug therapy; Z95.0 Presence of cardiac pacemaker

== ENCOUNTER 2022-11-24 03:45 | Emergency (ER) | payer OTHER ==
[2022-11-24] MEDS ORDERED: ENAL1TAB48 PO (03:55)
[2022-11-24 04:00] VITALS: BP 126/65
== END 2022-11-24 05:07 | disposition left against medical advice (07) ==
LOC: M ED 03:45
DX: R00.2 Palpitations (principal); Z53.21 Procedure and treatment not carried out due to patient leaving prior to being seen by health care provider

== ENCOUNTER 2023-01-07 17:06 | Emergency (ER) | payer OTHER ==
[~2023-01-07] VITALS: Ht 175.3 cm; Wt 114.4 kg
[~2023-01-07 17:06] MED LIST changes: +ENAL1TAB48 PO; -K-TA10TA2 PO; +POTA-165 PO; -POTA10CA33 PO; +POTA10CA60 PO
[2023-01-07] MEDS ORDERED: NS 1,000 ML IV ONE (19:15)
[2023-01-07 20:32] LABS: RSV AMPLIFICATION NEGATIVE (NEGATIVE)
[2023-01-07 20:48] LABS: BASO % 0.6 % (0.0-1.0); EOS # 0.1 10^3/uL (0.0-0.5); EOS % 0.8 % (0.0-3.0); HEMATOCRIT 42.7 % (36.0-47.0); HEMOGLOBIN 13.4 g/dl (12.0-15.5); LYMPH # 1.8 10^3/uL (1.5-5.0); LYMPH % 27.3 % (24.0-44.0); MEAN CORPUSCULAR HEMOGLOBIN 29.2 pg (27.0-33.0); MEAN CORPUSCULAR HGB CONC 31.4 g/dl (32.0-36.5); MONO # 0.4 10^3/uL (0.0-0.8); MONO % 5.6 % (2.0-8.0); NEUTROPHILS # 4.4 10^3/uL (1.5-8.5); NEUTROPHILS % 65.5 % (36.0-66.0); PLATELET COUNT, AUTOMATED 183 10^3/uL (150-450); RED BLOOD COUNT 4.59 10^6/uL (4.00-5.40); WHITE BLOOD COUNT 6.6 10^3/uL (4.0-10.0)
[2023-01-07 22:47] LABS: INR 0.98; PROTHROMBIN TIME 13.2 SECONDS (12.5-14.5)
[2023-01-07 22:48] LABS: PARTIAL THROMBOPLASTIN TIME 26.2 SECONDS (24.8-34.2)
[2023-01-07 22:50] LABS: D-DIMER QUANT 296.33 ng/ml (<500)
[2023-01-07 22:58] LABS: THYROID STIMULATING HORMONE 10.223 uIU/ML (0.55-4.78)
[2023-01-07 23:00] LABS: BLOOD UREA NITROGEN 14 MG/DL (9-23); CALCIUM LEVEL 8.8 MG/DL (8.5-10.1); CARBON DIOXIDE LEVEL 23 MMOL/L (20-31); CHLORIDE LEVEL 108 MMOL/L (98-107); CK-MB VALUE MASS 2.4 NG/ML (<3.6); CPK CREATINE PHOSPHOKINASE 250 U/L (34-145); GLOMERULAR FILTRATION RATE > 60.0 (>60); GLUCOSE, FASTING 81 MG/DL (60-100); LIPASE 27 U/L (12-53); MB/CK RELATIVE INDEX 0.96 (< OR =4); POTASSIUM SERUM 5.1 MMOL/L (3.5-5.1); SODIUM LEVEL 140 MMOL/L (136-145)
[2023-01-07 23:03] LABS: HCG, SERUM QUALITATIVE NEGATIVE (NEGATIVE)
[2023-01-08 00:30] VITALS: BP 113/69; TEMP 98.8; O2SAT 97
== END 2023-01-08 00:54 | disposition home or self-care (01) ==
LOC: M ED 17:06 → EDBD 17:06 → M ED 01-08 00:54
DX: R07.89 Other chest pain (principal); E03.9 Hypothyroidism, unspecified; I50.20 Unspecified systolic (congestive) heart failure; I25.2 Old myocardial infarction; Z95.0 Presence of cardiac pacemaker; Z88.6 Allergy status to analgesic agent; Z88.8 Allergy status to other drugs, medicaments and biological substances; Z79.899 Other long term (current) drug therapy

== ENCOUNTER 2023-01-16 22:47 | Emergency (ER) | payer OTHER ==
[~2023-01-16] VITALS: Ht 175.3 cm; Wt 105.9 kg
[2023-01-16 22:53] VITALS: BP 117/65; TEMP 97; O2SAT 98
[2023-01-23] MEDS ORDERED: DOXY100T PO (08:30)
== END 2023-01-16 23:51 | disposition left against medical advice (07) ==
LOC: M ED 22:47
DX: Z53.21 Procedure and treatment not carried out due to patient leaving prior to being seen by health care provider (principal)

== ENCOUNTER 2023-01-20 14:01 | Emergency (ER) | payer OTHER ==
[~2023-01-20] VITALS: Ht 175.3 cm; Wt 113.0 kg
[2023-01-20] MEDS ORDERED: VALA1TAB5 PO (16:49)
[2023-01-20 16:53] VITALS: BP 106/58; TEMP 97.6; O2SAT 99
[2023-01-20 19:06] LABS: GC DNA AMPLIFICATION NEGATIVE (NEGATIVE)
[2023-01-23] MEDS ORDERED: DOXY100T PO (08:30)
== END 2023-01-20 17:33 | disposition home or self-care (01) ==
LOC: M ED 14:01
DX: N76.89 Other specified inflammation of vagina and vulva (principal)

== ENCOUNTER 2023-01-26 18:22 | Emergency (ER) | payer OTHER ==
[~2023-01-26] VITALS: Ht 175.3 cm; Wt 117.0 kg
[~2023-01-26 18:22] MED LIST changes: +VALA1TAB5 PO
[2023-01-26 21:51] LABS: CK-MB VALUE MASS 5.3 NG/ML (<3.6); LIPASE 38 U/L (12-53)
[2023-01-26 21:53] LABS: ALBUMIN 4.3 G/DL (3.2-5.2); ALKALINE PHOSPHATASE 72 U/L (46-116); ALT/SGPT 28 U/L (7.0-40); AST/SGOT 22 U/L (<34); BILIRUBIN,DIRECT 0.2 MG/DL (<0.4); BILIRUBIN,TOTAL 0.6 MG/DL (0.3-1.2); BLOOD UREA NITROGEN 17 MG/DL (9-23); CARBON DIOXIDE LEVEL 24 MMOL/L (20-31); CHLORIDE LEVEL 108 MMOL/L (98-107); CREATININE FOR GFR 0.68 MG/DL (0.55-1.30); GLOMERULAR FILTRATION RATE > 60.0 (>60); GLUCOSE, FASTING 86 MG/DL (60-100); POTASSIUM SERUM 3.3 MMOL/L (3.5-5.1); SODIUM LEVEL 143 MMOL/L (136-145); TOTAL PROTEIN 7.9 G/DL (5.7-8.2)
[2023-01-26 21:54] LABS: CPK CREATINE PHOSPHOKINASE 268 U/L (34-145); MB/CK RELATIVE INDEX 1.97 (< OR =4)
[2023-01-26 23:11] LABS: BASO % 0.7 % (0.0-1.0); EOS # 0.1 10^3/uL (0.0-0.5); EOS % 1.3 % (0.0-3.0); HEMATOCRIT 41.3 % (36.0-47.0); HEMOGLOBIN 13.1 g/dl (12.0-15.5); LYMPH # 1.9 10^3/uL (1.5-5.0); LYMPH % 33.9 % (24.0-44.0); MEAN CORPUSCULAR HEMOGLOBIN 29.2 pg (27.0-33.0); MEAN CORPUSCULAR HGB CONC 31.7 g/dl (32.0-36.5); MONO # 0.4 10^3/uL (0.0-0.8); MONO % 6.6 % (2.0-8.0); NEUTROPHILS # 3.1 10^3/uL (1.5-8.5); NEUTROPHILS % 57.3 % (36.0-66.0); PLATELET COUNT, AUTOMATED 210 10^3/uL (150-450); RED BLOOD COUNT 4.49 10^6/uL (4.00-5.40); WHITE BLOOD COUNT 5.5 10^3/uL (4.0-10.0)
[2023-01-26 23:35] LABS: CK-MB VALUE MASS 3.3 NG/ML (<3.6); MAGNESIUM LEVEL 1.8 MG/DL (1.8-2.4)
[2023-01-26 23:37] LABS: MB/CK RELATIVE INDEX 1.15 (< OR =4)
[2023-01-26 23:39] LABS: FREE T4 1.07 NG/DL (0.89-1.76)
[2023-01-26 23:40] LABS: THYROID STIMULATING HORMONE 6.462 uIU/ML (0.55-4.78)
[2023-01-27 00:25] VITALS: BP 112/68; TEMP 98.8; O2SAT 99
== END 2023-01-27 00:27 | disposition home or self-care (01) ==
LOC: M ED 18:22
DX: R00.2 Palpitations (principal); Z88.6 Allergy status to analgesic agent; Z88.8 Allergy status to other drugs, medicaments and biological substances; Z95.810 Presence of automatic (implantable) cardiac defibrillator; Z79.899 Other long term (current) drug therapy